=== PATIENT | female | born 1945 | race Caucasian/White ===

== ENCOUNTER 2022-12-26 08:30 | Outpatient (OUT) | payer MEDICARE, SELFPAY ==
[2022-12-26 08:56] LABS: Basophils Percent Auto 0.5 % (0.2-2.0); Eosinophils Absolute Auto 0.1 10^3/uL (0.0-0.7); Eosinophils Percent Auto 1.5 % (0.9-7.0); Hematocrit 43.1 % (36.0-48.0); Hemoglobin 14.5 g/dL (12.0-16.0); Immature Granulocytes Abs Auto 0.02 10^3/uL (0.00-0.03); Immature Granulocytes Pct Auto 0.3 % (0.0-0.5); Lymphocytes Absolute Auto 1.5 10^3/uL (1.2-3.8); Lymphocytes Percent Auto 25.1 % (20.5-60.0); Mean Corpuscular HGB Conc 33.6 g/dL (29.9-35.2); Mean Corpuscular Volume 89.2 fL (81.0-99.0); Monocytes Absolute Auto 0.6 10^3/uL (0.3-0.8); Monocytes Percent Auto 9.3 % (1.7-12.0); Neutrophils Absolute Auto 3.7 10^3/uL (1.4-6.5); Neutrophils Percent Auto 63.3 % (43.0-75.0); Platelet Count 206 10^3/uL (150-450); Red Blood Count 4.83 10^6/uL (4.20-5.40); Red Cell Distribution Width 12.8 % (11.0-15.0); White Blood Count 5.9 10^3/uL (4.0-11.0)
[2022-12-26 09:21] LABS: Alanine Aminotransferase 40 U/L (14-59); Albumin Globulin Ratio 0.9; Albumin Level 3.7 g/dL (3.4-5.0); Alkaline Phosphatase 132 U/L (46-116); Anion Gap 10.1; Aspartate Amino Transferase 41 U/L (15-37); BUN Creatinine Ratio 18.9; Bilirubin Total 0.7 mg/dL (0.2-1.0); Calcium 9.3 mg/dL (8.5-10.1); Carbon Dioxide 32.7 mmol/L (21.0-32.0); Chloride 103 mmol/L (98-107); Estimated GFR (African America >60 (>=60); Estimated GFR (Non-African Ame 57 (>=60); Globulin 3.9 g/dL; Glucose 114 mg/dL (74-106); Lactate Dehydrogenase 205 U/L (81-234); Potassium 3.8 mmol/L (3.5-5.1); Sodium 142 mmol/L (136-145); Thyroid Stimulating Hormone 2.725 uIU/mL (0.358-3.740); Total Protein 7.6 g/dL (6.4-8.2)
[2022-12-26 10:50] LABS: Free T4 1.17 ng/dL (0.76-1.46)
[2022-12-27 14:11] LABS: ACTH, Plasma 35.2 pg/mL (7.2-63.3)
== END 2022-12-26 08:31 | disposition home or self-care (01) ==
LOC: LAB 01-06 14:50
PROVIDERS: PCP Family Medicine; Visit Provider Internal Medicine
DX: C43.9 Malignant melanoma of skin, unspecified (principal)
CPT/HCPCS: 36415; 80053; 82024; 83615; 84439; 84443; 85025

== ENCOUNTER 2023-01-22 15:20 | Outpatient (OUT) | payer MEDICARE, SELFPAY ==
[2023-01-22 15:46] LABS: Basophils Percent Auto 0.6 % (0.2-2.0); Eosinophils Absolute Auto 0.1 10^3/uL (0.0-0.7); Eosinophils Percent Auto 2.1 % (0.9-7.0); Hematocrit 42.4 % (36.0-48.0); Hemoglobin 13.8 g/dL (12.0-16.0); Immature Granulocytes Abs Auto 0.04 10^3/uL (0.00-0.03); Immature Granulocytes Pct Auto 0.6 % (0.0-0.5); Lymphocytes Absolute Auto 1.8 10^3/uL (1.2-3.8); Lymphocytes Percent Auto 25.9 % (20.5-60.0); Mean Corpuscular HGB Conc 32.5 g/dL (29.9-35.2); Mean Corpuscular Hemoglobin 29.2 pg (26.7-34.0); Mean Corpuscular Volume 89.8 fL (81.0-99.0); Mean Platelet Volume 9.1 fL (9.5-13.5); Monocytes Absolute Auto 0.7 10^3/uL (0.3-0.8); Neutrophils Absolute Auto 4.1 10^3/uL (1.4-6.5); Neutrophils Percent Auto 60.8 % (43.0-75.0); Platelet Count 194 10^3/uL (150-450); Red Blood Count 4.72 10^6/uL (4.20-5.40); Red Cell Distribution Width 13.1 % (11.0-15.0); White Blood Count 6.8 10^3/uL (4.0-11.0)
[2023-01-22 16:27] LABS: Free T4 1.07 ng/dL (0.76-1.46)
[2023-01-22 16:29] LABS: Alanine Aminotransferase 32 U/L (14-59); Albumin Level 3.7 g/dL (3.4-5.0); Alkaline Phosphatase 112 U/L (46-116); Aspartate Amino Transferase 27 U/L (15-37); BUN Creatinine Ratio 21.4; Bilirubin Total 0.5 mg/dL (0.2-1.0); Calcium 8.9 mg/dL (8.5-10.1); Carbon Dioxide 29.5 mmol/L (21.0-32.0); Chloride 104 mmol/L (98-107); Estimated GFR (African America >60 (>=60); Estimated GFR (Non-African Ame 55 (>=60); Globulin 3.7 g/dL; Glucose 84 mg/dL (74-106); Lactate Dehydrogenase 211 U/L (81-234); Potassium 3.5 mmol/L (3.5-5.1); Sodium 141 mmol/L (136-145); Thyroid Stimulating Hormone 1.886 uIU/mL (0.358-3.740); Total Protein 7.4 g/dL (6.4-8.2)
[2023-01-23 13:08] LABS: ACTH, Plasma 41.1 pg/mL (7.2-63.3)
== END 2023-01-22 15:21 | disposition home or self-care (01) ==
LOC: LAB 15:21
PROVIDERS: PCP Family Medicine; Visit Provider Internal Medicine
DX: C43.9 Malignant melanoma of skin, unspecified (principal)
CPT/HCPCS: 36415; 80053; 82024; 83615; 84439; 84443; 85025

== ENCOUNTER 2023-02-19 15:11 | Outpatient (OUT) | payer MEDICARE, SELFPAY ==
[2023-02-19 15:34] LABS: Basophils Percent Auto 0.6 % (0.2-2.0); Eosinophils Absolute Auto 0.1 10^3/uL (0.0-0.7); Eosinophils Percent Auto 1.8 % (0.9-7.0); Hematocrit 39.7 % (36.0-48.0); Hemoglobin 13.5 g/dL (12.0-16.0); Immature Granulocytes Abs Auto 0.03 10^3/uL (0.00-0.03); Immature Granulocytes Pct Auto 0.4 % (0.0-0.5); Lymphocytes Absolute Auto 1.6 10^3/uL (1.2-3.8); Lymphocytes Percent Auto 24.4 % (20.5-60.0); Mean Corpuscular Hemoglobin 29.7 pg (26.7-34.0); Mean Corpuscular Volume 87.4 fL (81.0-99.0); Mean Platelet Volume 8.7 fL (9.5-13.5); Monocytes Absolute Auto 0.5 10^3/uL (0.3-0.8); Monocytes Percent Auto 7.3 % (1.7-12.0); Neutrophils Absolute Auto 4.4 10^3/uL (1.4-6.5); Neutrophils Percent Auto 65.5 % (43.0-75.0); Platelet Count 186 10^3/uL (150-450); Red Blood Count 4.54 10^6/uL (4.20-5.40); Red Cell Distribution Width 13.2 % (11.0-15.0); White Blood Count 6.7 10^3/uL (4.0-11.0)
[2023-02-19 16:11] LABS: Free T4 1.13 ng/dL (0.76-1.46)
[2023-02-19 16:14] LABS: Alanine Aminotransferase 36 U/L (14-59); Albumin Globulin Ratio 1.1; Albumin Level 3.6 g/dL (3.4-5.0); Alkaline Phosphatase 108 U/L (46-116); Anion Gap 10.3; Aspartate Amino Transferase 27 U/L (15-37); BUN Creatinine Ratio 19.2; Bilirubin Total 0.4 mg/dL (0.2-1.0); Calcium 8.9 mg/dL (8.5-10.1); Carbon Dioxide 30.9 mmol/L (21.0-32.0); Chloride 103 mmol/L (98-107); Estimated GFR (African America >60 (>=60); Estimated GFR (Non-African Ame 55 (>=60); Globulin 3.2 g/dL; Glucose 148 mg/dL (74-106); Lactate Dehydrogenase 205 U/L (81-234); Potassium 3.2 mmol/L (3.5-5.1); Sodium 141 mmol/L (136-145); Thyroid Stimulating Hormone 1.309 uIU/mL (0.358-3.740); Total Protein 6.8 g/dL (6.4-8.2)
[2023-02-20 13:09] LABS: ACTH, Plasma 57.3 pg/mL (7.2-63.3)
== END 2023-02-19 15:12 | disposition home or self-care (01) ==
PROVIDERS: PCP Family Medicine; Visit Provider Internal Medicine
DX: C43.9 Malignant melanoma of skin, unspecified (principal)
CPT/HCPCS: 36415; 80053; 82024; 83615; 84439; 84443; 85025

== ENCOUNTER 2023-03-19 09:24 | Outpatient (OUT) | payer MEDICARE, SELFPAY ==
[2023-03-19 10:27] LABS: Basophils Percent Auto 0.6 % (0.2-2.0); Eosinophils Absolute Auto 0.1 10^3/uL (0.0-0.7); Hematocrit 39.1 % (36.0-48.0); Hemoglobin 13.8 g/dL (12.0-16.0); Immature Granulocytes Abs Auto 0.02 10^3/uL (0.00-0.03); Immature Granulocytes Pct Auto 0.4 % (0.0-0.5); Lymphocytes Absolute Auto 1.4 10^3/uL (1.2-3.8); Lymphocytes Percent Auto 26.7 % (20.5-60.0); Mean Corpuscular HGB Conc 35.3 g/dL (29.9-35.2); Mean Corpuscular Hemoglobin 30.9 pg (26.7-34.0); Mean Corpuscular Volume 87.7 fL (81.0-99.0); Mean Platelet Volume 9.2 fL (9.5-13.5); Monocytes Absolute Auto 0.5 10^3/uL (0.3-0.8); Monocytes Percent Auto 10.4 % (1.7-12.0); Neutrophils Absolute Auto 3.1 10^3/uL (1.4-6.5); Neutrophils Percent Auto 59.9 % (43.0-75.0); Platelet Count 209 10^3/uL (150-450); Red Blood Count 4.46 10^6/uL (4.20-5.40); Red Cell Distribution Width 13.2 % (11.0-15.0); White Blood Count 5.1 10^3/uL (4.0-11.0)
[2023-03-19 11:58] LABS: Free T4 1.03 ng/dL (0.76-1.46)
[2023-03-19 12:01] LABS: Alanine Aminotransferase 33 U/L (14-59); Albumin Globulin Ratio 1.1; Albumin Level 3.6 g/dL (3.4-5.0); Alkaline Phosphatase 118 U/L (46-116); Anion Gap 10.8; Aspartate Amino Transferase 28 U/L (15-37); BUN Creatinine Ratio 20.4; Bilirubin Total 0.4 mg/dL (0.2-1.0); Calcium 8.8 mg/dL (8.5-10.1); Carbon Dioxide 28.4 mmol/L (21.0-32.0); Chloride 104 mmol/L (98-107); Estimated GFR (African America 60 (>=60); Estimated GFR (Non-African Ame 49 (>=60); Globulin 3.4 g/dL; Glucose 100 mg/dL (74-106); Lactate Dehydrogenase 211 U/L (81-234); Potassium 3.2 mmol/L (3.5-5.1); Sodium 140 mmol/L (136-145); Thyroid Stimulating Hormone 2.383 uIU/mL (0.358-3.740)
[2023-03-21 15:09] LABS: ACTH, Plasma 23.6 pg/mL (7.2-63.3)
== END 2023-03-19 09:25 | disposition home or self-care (01) ==
LOC: LAB 09:26
PROVIDERS: PCP Family Medicine; Visit Provider Internal Medicine
DX: C43.9 Malignant melanoma of skin, unspecified (principal)
CPT/HCPCS: 36415; 80053; 82024; 83615; 84439; 84443; 85025

== ENCOUNTER 2023-04-16 14:13 | Outpatient (OUT) | payer MEDICARE, SELFPAY ==
[2023-04-16 14:55] LABS: Basophils Absolute Auto 0.1 10^3/uL (0.0-0.1); Basophils Percent Auto 0.7 % (0.2-2.0); Eosinophils Absolute Auto 0.1 10^3/uL (0.0-0.7); Eosinophils Percent Auto 1.7 % (0.9-7.0); Hematocrit 39.9 % (36.0-48.0); Hemoglobin 13.4 g/dL (12.0-16.0); Immature Granulocytes Abs Auto 0.02 10^3/uL (0.00-0.03); Immature Granulocytes Pct Auto 0.3 % (0.0-0.5); Lymphocytes Absolute Auto 1.7 10^3/uL (1.2-3.8); Lymphocytes Percent Auto 24.2 % (20.5-60.0); Mean Corpuscular HGB Conc 33.6 g/dL (29.9-35.2); Mean Corpuscular Hemoglobin 30.2 pg (26.7-34.0); Mean Corpuscular Volume 89.9 fL (81.0-99.0); Mean Platelet Volume 9.2 fL (9.5-13.5); Monocytes Absolute Auto 0.6 10^3/uL (0.3-0.8); Monocytes Percent Auto 7.9 % (1.7-12.0); Neutrophils Absolute Auto 4.6 10^3/uL (1.4-6.5); Neutrophils Percent Auto 65.2 % (43.0-75.0); Platelet Count 204 10^3/uL (150-450); Red Blood Count 4.44 10^6/uL (4.20-5.40); Red Cell Distribution Width 12.7 % (11.0-15.0); White Blood Count 7.1 10^3/uL (4.0-11.0)
[2023-04-16 15:11] LABS: Free T4 1.15 ng/dL (0.76-1.46)
[2023-04-16 15:16] LABS: Alanine Aminotransferase 26 U/L (14-59); Albumin Globulin Ratio 1.1; Albumin Level 3.7 g/dL (3.4-5.0); Alkaline Phosphatase 114 U/L (46-116); Anion Gap 11.8; Aspartate Amino Transferase 25 U/L (15-37); BUN Creatinine Ratio 19.8; Bilirubin Total 0.6 mg/dL (0.2-1.0); Calcium 9.2 mg/dL (8.5-10.1); Carbon Dioxide 29.7 mmol/L (21.0-32.0); Chloride 101 mmol/L (98-107); Estimated GFR (African America >60 (>=60); Estimated GFR (Non-African Ame 53 (>=60); Globulin 3.4 g/dL; Glucose 112 mg/dL (74-106); Lactate Dehydrogenase 214 U/L (81-234); Potassium 3.5 mmol/L (3.5-5.1); Sodium 139 mmol/L (136-145); Thyroid Stimulating Hormone 1.813 uIU/mL (0.358-3.740); Total Protein 7.1 g/dL (6.4-8.2)
[2023-04-17 15:09] LABS: ACTH, Plasma 31.7 pg/mL (7.2-63.3)
== END 2023-04-16 14:14 | disposition home or self-care (01) ==
LOC: LAB 14:17
PROVIDERS: PCP Family Medicine; Visit Provider Internal Medicine
DX: C43.9 Malignant melanoma of skin, unspecified (principal)
CPT/HCPCS: 36415; 80053; 82024; 83615; 84439; 84443; 85025

== ENCOUNTER 2023-05-14 10:05 | Outpatient (OUT) | payer MEDICARE, SELFPAY ==
[2023-05-14 10:32] LABS: Basophils Percent Auto 0.6 % (0.2-2.0); Eosinophils Absolute Auto 0.1 10^3/uL (0.0-0.7); Eosinophils Percent Auto 2.1 % (0.9-7.0); Hematocrit 39.9 % (36.0-48.0); Hemoglobin 13.2 g/dL (12.0-16.0); Immature Granulocytes Abs Auto 0.03 10^3/uL (0.00-0.03); Immature Granulocytes Pct Auto 0.5 % (0.0-0.5); Lymphocytes Absolute Auto 1.5 10^3/uL (1.2-3.8); Lymphocytes Percent Auto 24.1 % (20.5-60.0); Mean Corpuscular HGB Conc 33.1 g/dL (29.9-35.2); Mean Corpuscular Hemoglobin 30.1 pg (26.7-34.0); Mean Corpuscular Volume 91.1 fL (81.0-99.0); Monocytes Absolute Auto 0.7 10^3/uL (0.3-0.8); Monocytes Percent Auto 10.4 % (1.7-12.0); Neutrophils Absolute Auto 3.9 10^3/uL (1.4-6.5); Neutrophils Percent Auto 62.3 % (43.0-75.0); Platelet Count 201 10^3/uL (150-450); Red Blood Count 4.38 10^6/uL (4.20-5.40); Red Cell Distribution Width 12.7 % (11.0-15.0); White Blood Count 6.3 10^3/uL (4.0-11.0)
[2023-05-14 10:54] LABS: Alanine Aminotransferase 38 U/L (14-59); Albumin Level 3.4 g/dL (3.4-5.0); Alkaline Phosphatase 128 U/L (46-116); Anion Gap 8.1; Aspartate Amino Transferase 33 U/L (15-37); BUN Creatinine Ratio 21.3; Bilirubin Total 0.5 mg/dL (0.2-1.0); Calcium 8.7 mg/dL (8.5-10.1); Carbon Dioxide 32.3 mmol/L (21.0-32.0); Chloride 102 mmol/L (98-107); Estimated GFR (African America >60 (>=60); Estimated GFR (Non-African Ame 58 (>=60); Globulin 3.5 g/dL; Glucose 84 mg/dL (74-106); Lactate Dehydrogenase 173 U/L (81-234); Potassium 3.4 mmol/L (3.5-5.1); Sodium 139 mmol/L (136-145); Thyroid Stimulating Hormone 2.474 uIU/mL (0.358-3.740); Total Protein 6.9 g/dL (6.4-8.2)
[2023-05-14 11:51] LABS: Free T4 1.13 ng/dL (0.76-1.46)
[2023-05-15 13:09] LABS: ACTH, Plasma 27.7 pg/mL (7.2-63.3)
== END 2023-05-14 10:06 | disposition home or self-care (01) ==
LOC: LAB 10:07
PROVIDERS: PCP Family Medicine; Visit Provider Internal Medicine
DX: C43.9 Malignant melanoma of skin, unspecified (principal)
CPT/HCPCS: 36415; 80053; 82024; 83615; 84439; 84443; 85025

== ENCOUNTER 2023-06-12 07:34 | Outpatient (OUT) | payer MEDICARE, SELFPAY ==
[2023-06-12 08:16] LABS: Basophils Percent Auto 0.6 % (0.2-2.0); Eosinophils Absolute Auto 0.1 10^3/uL (0.0-0.7); Hematocrit 39.1 % (36.0-48.0); Hemoglobin 13.1 g/dL (12.0-16.0); Immature Granulocytes Abs Auto 0.03 10^3/uL (0.00-0.03); Immature Granulocytes Pct Auto 0.5 % (0.0-0.5); Lymphocytes Absolute Auto 1.8 10^3/uL (1.2-3.8); Lymphocytes Percent Auto 27.2 % (20.5-60.0); Mean Corpuscular HGB Conc 33.5 g/dL (29.9-35.2); Mean Corpuscular Hemoglobin 30.6 pg (26.7-34.0); Mean Corpuscular Volume 91.4 fL (81.0-99.0); Mean Platelet Volume 9.3 fL (9.5-13.5); Monocytes Absolute Auto 0.7 10^3/uL (0.3-0.8); Monocytes Percent Auto 10.1 % (1.7-12.0); Neutrophils Absolute Auto 3.9 10^3/uL (1.4-6.5); Neutrophils Percent Auto 59.6 % (43.0-75.0); Platelet Count 198 10^3/uL (150-450); Red Blood Count 4.28 10^6/uL (4.20-5.40); Red Cell Distribution Width 12.7 % (11.0-15.0); White Blood Count 6.5 10^3/uL (4.0-11.0)
[2023-06-12 08:42] LABS: Alanine Aminotransferase 35 U/L (14-59); Albumin Level 3.5 g/dL (3.4-5.0); Alkaline Phosphatase 111 U/L (46-116); Aspartate Amino Transferase 33 U/L (15-37); Bilirubin Total 0.5 mg/dL (0.2-1.0); Calcium 8.7 mg/dL (8.5-10.1); Carbon Dioxide 29.7 mmol/L (21.0-32.0); Chloride 103 mmol/L (98-107); Estimated GFR (African America >60 (>=60); Estimated GFR (Non-African Ame >60 (>=60); Globulin 3.5 g/dL; Glucose 105 mg/dL (74-106); Lactate Dehydrogenase 200 U/L (81-234); Potassium 3.7 mmol/L (3.5-5.1); Sodium 141 mmol/L (136-145); Thyroid Stimulating Hormone 2.821 uIU/mL (0.358-3.740)
[2023-06-15 14:08] LABS: ACTH, Plasma 36.2 pg/mL (7.2-63.3)
== END 2023-06-12 07:35 | disposition home or self-care (01) ==
LOC: LAB 07:34
PROVIDERS: PCP Family Medicine; Visit Provider Internal Medicine
DX: C43.9 Malignant melanoma of skin, unspecified (principal)
CPT/HCPCS: 36415; 80053; 82024; 83615; 84439; 84443; 85025

== ENCOUNTER 2023-07-10 07:23 | Outpatient (OUT) | payer MEDICARE, SELFPAY ==
--- OUTSIDE RECORDS SUMMARY | 2023-07-10 07:28 | XMS_ITS | CCD ---
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 Name Role Phone Quentin Fitzpatrick Unavailable Unavailable Yoni Muller Unavailable Unavailable Unavailable Quentin Fitzpatrick Unavailable Unavailable DO Sly Benson II Attending Provider Yohana, DO [place] Primary Care Provider MD Alex Trammell Referring Provider DO Sly Benson II Attending Provider [phone] DO Yoni Muller Primary Care Provider MD Alex Trammell Referring Provider MD Alex Trammell Attending Provider DO Yoni Muller Primary Care Provider DO Sly Benson II Attending Provider [phone] MD Alex Trammell Referring Provider Yohana, DO [place] Primary Care Provider MD Alex Trammell Attending Provider DO Sly Benson II Attending Provider MD Alex Trammell Referring Provider DO Sly Benson II Attending Provider MD Alex Trammell Referring Provider [phone] Furlong, DO Yoni Primary Care Provider [phone] MD Alex Trammell Attending Provider Adamowicz II, DO Sly J Attending Provider MD Alex Trammell Referring Provider MD Alex Trammell Referring Provider MD Alex Trammell Referring Provider Adamconnoricz II, DO Sly J Attending Provider Furlong, DO Yoni Primary Care Provider MD Alex Trammell Referring Provider [phone] Adamconnoricz II, DO Sly J Attending Provider Furlong, DO Yoni Primary Care Provider MD Alex Trammell Referring Provider Adamconnoricz II, DO Sly J Attending Provider Furlong, DO Yoni Primary Care Provider MD Alex Trammell Referring Provider [phone] SLY BENSON J Admitting Unavailable FURLONG, DR YONI Larson Primary Care Unavailable ADAMOWICZ, SLY J Consulting Unavailable SHUNOWICZ, SLY J Attending Unavailable FURLONG, DR YONI Larson Primary Care Unavailable ADAMOWICZ, SLY J Admitting Unavailable ADAMOWICZ, SLY J Consulting Unavailable SHUNOWICZ, SLY J Attending Unavailable ADAMOWICZ, SLY J Attending Unavailable FURLONG, DR YONI Larson Primary Care Unavailable SHUNOWICZ, SLY J Admitting Unavailable ADAMOWICZ, SLY J Consulting Unavailable FURLONG, DR YONI Larson Consulting Unavailable FURLONG, DR YONI Larson Attending Unavailable FURLONG, DR YONI Larson Admitting Unavailable FURLONG, DR YONI Larson Primary Care Unavailable SHUNOWICZ, SLY J Attending Unavailable ADAMOWICZ, SLY J Admitting Unavailable ADAMOWICZ, SLY J Consulting Unavailable FURLONG, DR VANCENIS G Primary Care Unavailable ADAMOWICZ, SLY J Attending Unavailable ADAMOWICZ, SLY J Admitting Unavailable ADAMOWICZ, SLY J Consulting Unavailable SARANYALODR YONI PAUL Primary Care Unavailable ADAMOWICZ, SLY J Attending Unavailable ADAMOWICZ, SLY J Admitting Unavailable ADAMOWICZ, SLY J Consulting Unavailable ADAMOWICZ, SLY J Attending Unavailable ADAMOWICZ, SLY J Admitting Unavailable ADAMOWICZ, SLY J Consulting Unavailable Adamowicz II, DO Sly J Attending Provider Furlong, DO Yoni Primary Care Provider MD Alex Trammell Referring Provider Adamowicz II, DO Sly J Attending Provider [facility], DO Yoni Primary Care Provider [phone] MD Alex Trammell Referring Provider Kimber Lacy Unavailable Adamowicz II, DO Sly J Attending Provider Furlong, DO [place] Primary Care Provider [phone] MD Alex Trammell Referring Provider [phone] Adamowicz II, DO Sly J Attending Provider Furlo, DO [place] Primary Care Provider [phone] MD Alex Trammell Referring Provider Yoni Muller Primary Care Unavailable Adamowicz II, Sly J Admitting Unavaila ble Adamowicz II, Sly J Attending Unavaila ble Alex Trammell Referring Unavailab le Allergies Allergy Classification Reported Allergen(s) Allergy Type Date of Onset Reaction(s) Facility (3 sources) No Alert Propensity to adverse reactions to drug 1 [facility] (2 sources) Penicillin Drug Allergy Unknown [facility] Repository (1 source) Penicillins Drug allergy (disorder) 3 [facility] Repository Medications Current Medications Medication Drug Class(es) Dates Sig (Normalized) Sig (Original) hydroCHLOROthiazide 25 mg oral tablet (18 sources) Thiazide Diuretic Start: 2 take 25 mg by mouth once daily Hydrochlorothiazide Active 25 MG PO Daily October 04, 2021 12:00am rosuvastatin calcium 10 mg oral tablet (18 sources) HMG-CoA Reductase Inhibitor Start: 2 take 10 mg by mouth once daily Rosuvastatin Active 10 MG PO Daily October 04, 2021 12:00am (3 sources) Completed/Discontinued Medications Medication Drug Class(es) Dates Sig (Normalized) Sig (Original) acetaminophen 325 mg / HYDROcodone bitartrate 5 mg oral tablet (1 source) Opioid Agonist Start: 11-20-2020 take 1 tablet by mouth every six hours as needed for pain HYDROcodone-Acetam inophen 5-325 MG Oral Tablet TAKE 1 TABLET EVERY 6 HOURS NEEDED FOR PAIN. Quantity: 28 Refills: 0 Ordered: 20-Nov-2020 Alex Trammell MPH Start : 20-Nov-2020 Active acetaminophen 325 mg / oxyCODONE hydrochloride 5 mg oral tablet (10 sources) Opioid Agonist Start: 12-04-2020 take 1 tablet by mouth every six hours as needed oxyCODONE-Acetamin ophen 5-325 MG Oral Tablet TAKE 1 TABLET EVERY 6 HOURS NEEDED. Quantity: 28 Refills: 0 Ordered: 04-Dec-2020 Alex Trammell MPH Start : 04-Dec-2020 Active cephalexin 750 mg oral capsule (6 sources) Cephalosporin Antibacterial Start: 01-12-2021 take 1 capsule by mouth three times daily Cephalexin 750 MG Oral Capsule TAKE 1 CAPSULE 3 times daily Quantity: 21 Refills: 0 Ordered: 12-Jan-2021 Alex Trammell MPH Start : 12-Jan-2021 Active ciprofloxacin 500 mg oral tablet (20 sources) Quinolone Antimicrobial Start: 11-30-2020 take 1 tablet by mouth twice daily Ciprofloxacin HCl - 500 MG Oral Tablet Take 1 tablet twice daily Quantity: 6 Refills: 0 Ordered: 05-Dec-2020 Alex Trammell MPH Start : 05-Dec-2020 Active Start: 11-30-2020 take 1 tablet by enrike th once daily Ciprofloxacin HCl - 500 MG Oral Tablet TAKE 1 TABLET EVERY 12 HOURS DAILY. Quantity: 14 Refills: 0 Ordered: 30-Nov-2020 Alex Trammell MPH Start : 30-Nov-2020 Active dexamethasone 2 mg oral tablet (6 sources) Corticosteroid Start: 08-29-2022 End: 09-08-2022 take 2 tablets by mouth after breakfast, then take 1 tablet by mouth after lunch Dexamethasone Discontinued 2 MG PO As Directed August 29, 2022 1:00am September 08, 2022 10:52am Take 4mg (2 tablets) in the morning after breakfast, and 2mg (1 tablet) in the afternoon after lunch for 5 days. diazePAM 5 mg oral tablet (7 sources) Benzodiazepine Start: 08-12-2022 End: 10-06-2022 Diazepam (Valium) 5 mg Tablet Discontinued 5 MG PO Once 10 August 12, 2022 1:00am October 06, 2022 10:20am Take 1 tab po 30 min prior to procedure. take 1 tablet by enrike th every twenty-four hours diazePAM 5 MG 1 tablet as needed Orally Once a day Not-Taking doxycycline hyclate 100 mg oral capsule (6 sources) Tetracycline-class Drug Start: 01-12-2021 take 1 capsule by mouth every twelve hours Doxycycline Hyclate 100 MG Oral Capsule TAKE 1 CAPSULE EVERY 12 HOURS UNTIL GONE. Quantity: 14 Refills: 0 Ordered: 12-Jan-2021 Alex Trammell MPH Start : 12-Jan-2021 Active gabapentin 100 mg oral capsule (1 source) Anti-epileptic Agent Start: 09-09-2022 take 1 capsule by mouth every eight hours Gabapentin 100 MG 1 capsule Orally TID for 15 days G89.3 Aug, Not-Taking lidocaine hydrochloride 40 mg/ml topical cream (8 sources) Antiarrhythmic, Amide Local Anesthetic Start: 12-18-2020 Aspercreme w/Lidocaine 4 % External Cream APPLY 1 (ONE) inch EVERY OTHER DAY NEEDED with wound vac changes Quantity: 76 Refills: 0 Ordered: 18-Dec-2020 DO Start : 18-Dec-2020 Active Start: 12-17-2020 Lidocaine 3 % External Cream APPLY 1 INCH Every other day PRN during dressing changes Quantity: 1 Refills: 1 Ordered: 17-Dec-2020 Alex Trammell MPH Start : 17-Dec-2020 Active Lidocaine 4 % External Ointment (4 sources) Start: 12-18-2020 Lidocaine 4 % External Ointment APPLY 1 INCH Every other day PRN with wound vac changes Quantity: 1 Refills: 0 Ordered: 18-Dec-2020 Alex Trammell MPH Start : 18-Dec-2020 Active Lidocaine 4 % External Ointment (4 sources) Start: 12-18-2020 Lidocaine 4 % External Ointment APPLY 1 INCH Every other day PRN with wound vac changes Quantity: 1 Refills: 0 Ordered: 18-Dec-2020 Alex Trammell MPH Start : 18-Dec-2020 Active mometasone furoate 1 mg/ml topical cream (4 sources) Corticosteroid Start: 09-15-2022 End: 11-03-2022 Mometasone Discontinued 1 APPLIC TOPICAL Daily September 15, 2022 1:00am November 03, 2022 10:11am Apply twice daily. potassium chloride 20 meq extended release oral tablet (8 sources) Start: 08-11-2022 End: 10-06-2022 take 20 mEq by mouth once daily Potassium Chloride Discontinued 20 MEQ PO Daily August 11, 2022 1:00am October 06, 2022 10:21am Potassium Chlori de Active QUEtiapine 25 mg oral tablet (1 source) Atypical Antipsychotic Start: 11-11-2022 take 1 tablet by mouth every twenty-four hours QUEtiapine Fumarate 25 MG 1 tablet at bedtime Orally Once a day for 30 days DC trazodone November, Not-Taking traMADol hydrochloride 50 mg oral tablet (1 source) Opioid Agonist Start: 11-16-2020 traMADol HCl - 50 MG Oral Tablet Quantity: 15 Refills: 0 Ordered: 16-Nov-2020 DO Start : 16-Nov-2020 Active traZODone hydrochloride 50 mg oral tablet (4 sources) Serotonin Reuptake Inhibitor Start: 09-08-2022 End: 10-06-2022 take 50 mg by mouth once daily at bedtime Trazodone Discontinued 50 MG PO Daily at bedtime September 08, 2022 1:00am October 06, 2022 10:21am Problems Active Problems Problem Classification Problem Date Documented Date Episodic/Chronic Administrative/soci al admission (1 source) Other specified counseling Episodic Anxiety disorders (1 source) Anxiety disorder; Translations: [Other specified anxiety disorders] Chronic Complication of device; implant or graft (9 sources) Skin graft disorder; Translations: [Other complications due to other internal prosthetic device, implant, and graft] Episodic Complications of surgical procedures or medical care (5 sources) Infected seroma after surgical procedure; Translations: [Infected postoperative seroma] Episodic Disorders of lipid metabolism (4 sources) Pure hypercholesterolemia, unspecified; Translations: [PURE HYPERCHOLESTEROLEMIA UNSPEC] Onset: 2 Chronic Lymphadenitis (20 sources) Inguinal lymphadenopathy; Translations: [Localized enlarged lymph nodes] 04-28-2022 Episodic Maintenance chemotherapy; radiotherapy (17 sources) Patient encounter status; Translations: [Encounter for antineoplastic immunotherapy] Onset: 3 06-02-2022 Chronic Melanomas of skin (20 sources) Malignant melanoma of lower leg; Translations: [Malignant melanoma of skin of lower limb, including hip] Onset: 3 10-07-2021 Chronic Other injuries and conditions due to external causes (7 sources) Surgical wound finding; Translations: [Open wound(s) (multiple) of unspecified site(s), without mention of complication] Episodic Other nervous system disorders (1 source) Pain due to neoplastic disease; 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)] Chronic Other screening for suspected conditions (not mental disorders or infectious disease) (1 source) No current problems or disability Onset: 1 Residual codes; unclassified (1 source) Insomnia; Translations: [Insomnia, unspecified] Episodic Residual codes; unclassified (1 source) Insomnia, unspecified Episodic Skin and subcutaneous tissue infections (11 sources) Cellulitis; Translations: [Cellulitis and abscess of unspecified sites] Episodic Unclassified (1 source) Malignant melanoma of left lower limb, including hip; Translations: [Malignant melanoma of left lower limb, including hip] Onset: 3 Past or Other Problems Problem Classification Problem Date Documented Da te Episodic/Chronic Residual codes; unclassified (2 sources) No current problems or disability; Translations: [Other specified conditions influencing health status] Onset: 11-13-2020 Episodic Results Test Name Value Interpretation Reference Range Facility Adrenocorticotropic Hormone PLon 03-05-[address] 25.6 pg/mL Normal 7.2-63.3 [facility] Comment on above: Result Comment: ACTH reference interval for samples collected between 7 and 10 AM. Performed at: - [facility] [address] [id number] Wax Ball Molder: Coleman Lacy PhD, Phone: [phone] PERFORMED BY: [facility] [address] [place] [address] PATHOLOGIST COMMUNITY FACILITATOR WAYLON SAUNDERS M.D. Performed By: #### C BC ####[facility] [id number]#### ACTH ####[facility] , Alanine aminotransferase [En zymatic activity/volume] in Serum or PlasmaOrdered By: Sly Benson on 03-05-2023 ALT [Catalytic activity/Vol] 22 U/L 7-52 [facility] Albumin [Mass/volume] in Ser um or Plasma by Bromocresol green (BCG) dye binding methoOrdered By: Sly Benson on 03-05-2023 Albumin BCG dye [Mass/Vol] 4.1 g/dL 3.5-5.7 [facility] Alkaline phosphatase [Enzyma tic activity/volume] in Serum or PlasmaOrdered By: Sly Benson on 03-05-2023 ALP [Catalytic activity/Vol] 106 U/L 34-104 [facility] Aspartate aminotransferase [ Enzymatic activity/volume] in Serum or PlasmaOrdered By: Sly Benson on 03-05-2023 AST [Catalytic activity/Vol] 23 U/L 13-39 [facility] Basophils Auto (Bld) [#/Vol] Ordered By: Sly Benson on 03-05-2023 Basophils (Bld) [#/Vol] 0.0 10*3/uL 0.0-0.2 [facility] Basophils/100 WBC Auto (Bld) Ordered By: Sly Benson on 03-05-2023 Basophils/100 WBC (Bld) 0.8 % . [facility] Bilirubin.total [Mass/volume ] in Serum or PlasmaOrdered By: Sly Benson on 03-05-2023 Bilirubin [Mass/Vol] 0.6 mg/dL 0.3-1.0 [facility] CT abdomen pelvis w conon CT abdomen pelvis w con [facility] [address] [place] [address] [place] [address] CT Scan Report Signed Patient: Theresa Luu MR#: [id number] 322 : 1945 Acct:[id number] Age/Sex: 77 / F ADM Date: 03/05/23 Loc: Room: Type: [facility] RCR Attending Dr: Sly Benson II DO Copies to: Sly Benson II, DO Ordering Provider: Sly Benson II, DO Date of Service: 03/05/23 CT/CT abdomen pelvis w con: surveilance ([id number]) CT/CT chest w con: surveilance CT CHEST, ABDOMEN AND PELVIS WITH INTRAVENOUS CONTRAST: CLINICAL HISTORY: Restage melanoma lower leg. COMPARISON: CT chest, abdomen and pelvis 10/31/2022 TECHNIQUE: TECHNIQUE: Spiral images were obtained through the chest, abdomen and pelvis following the administration of IV contrast. This CT exam was performed using one or more following dose reduction techniques: Automated exposure control, adjustment of the mA and/or kV according to patient size, or use of iterative reconstruction technique. FINDINGS: CT chest: Mediastinum:Thoracic aorta appears normal in caliber. Pulmonary trunk appears nondilated. No pericardial effusion. No lymphadenopathy. The esophagus is grossly unremarkable. Lungs:No consolidation pneumothorax or pleural effusion. Bibasilar axis/scarring. Trachea and distal airways appear patent. Multiple left lung nodules are once again noted, largest measuring 5 mm within the left upper lobe series 5 image 22. No new or enlarging suspicious pulmonary nodules. Soft tissues/Bones: Soft tissues demonstrate no acute findings. Left breast reconstruction. Osseous structures demonstrate degenerative change. CT abdomen and pelvis: Organs:Liver gallbladder portal vein pancreas spleen and adrenal glands all appear unremarkable. No enhancing renal mass or hydronephrosis. Number appears normal in caliber.[ GI: Small hiatal hernia. Distal stomach is grossly unremarkable. Small bowel appears nondilated. No acute colonic abnormality. Left colon diverticulosis.[ Pelvis:[Urinary bladder is grossly unremarkable. IUD is in place. No adnexal mass. 2.8 cm right ovarian cyst. Post surgical changes left groin region with a presumed necrotic lymph node grossly unchanged from the prior study. The left pelvic sidewall/external iliac lymphadenopathy appears to have resolved.] Peritoneum/Retroperitoneum :No new lymphadenopathy. No free air or free fluid.[ Abd wall/Bones:Abdominal wall demonstrates no acute findings. Osseous structures demonstrate degenerative change. No aggressive bony lesions.[ CT/CT chest w con IMPRESSION: No CT evidence of progression disease within the chest. Interval resolution of the left pelvic side wall/external iliac lymphadenopathy when compared to the prior study suggestive of response to treatment. The Necrotic lymph node involving the left inguinal region is grossly unchanged. Impression dictated by: Sylvain Monroe Jr., DSona03/05/2023 3:12 PM Dictation Location: [place] [address] Transcribed By: [facility] 03/05/23 1512 Dictated By: Sylvain Monroe Jr, DO 03/05/23 1504 Signed By: 03/05/23 1512 Normal [facility] Calcium [Mass/volume] in Ser um or PlasmaOrdered By: Sly Benson on 03-05-2023 Calcium [Mass/Vol] 9.4 mg/dL 8.6-10.3 [facility] Carbon dioxide, total [Moles /volume] in Serum or PlasmaOrdered By: Sly Benson on 03-05-2023 CO2 [Moles/Vol] 28.0 mmol/L 21.0-31.0 [facility] Chloride [Moles/volume] in S mellissa or PlasmaOrdered By: Sly Benson on 03-05-2023 Chloride [Moles/Vol] 104 mmol/L 98-107 [facility] Complete Blood Count Auto Di ffon 03-05-2023 Basophils (Bld) [#/Vol] 0.0 10*3/uL Normal 0.0-0.2 [facility] Comment on above: Result Comment: PERF ORMED BY: [facility] [address] [place] [address] PATHOLOGIST COMMUNITY FACILITATOR WAYLON SAUNDERS M.D. Performed By: #### C BC ####[facility] [id number] [place] [id number] [facility]#### ACTH ####[facility] , Basophils/100 WBC (Bld) 0.8 % Normal . [facility] Comment on above: Performed By: #### C BC ####[place] [address] [place]#### ACTH ####[facility] , Eosinophils (Bld) [#/Vol] 0.1 10*3/uL Normal 0.0-0.45 [facility] Comment on above: Performed By: #### C BC ####[place] [address] [place]#### ACTH ####[facility] , Eosinophils/100 WBC (Bld) 1.7 % Normal . [facility] Comment on above: Performed By: #### C BC ####[address]#### ACTH ####[facility] , Erythrocyte distribution width (RBC) [Ratio] 14.3 % Normal 11.9-15.3 [facility] Comment on above: Performed By: #### C BC ####[place] [address] [place]#### ACTH ####[facility] , Hematocrit (Bld) [Volume fraction] 39.8 % Normal 34.0-46.4 [facility] Comment on above: Performed By: #### C BC ####[place] [address] [place]#### ACTH ####[facility] , Hemoglobin (Bld) [Mass/Vol] 13.6 g/dL Normal 11.8-15.4 [facility] Comment on above: Performed By: #### C BC ####[place] [address] [place]#### ACTH ####[facility] , Lymphocytes (Bld) [#/Vol] 1.4 10*3/uL Normal 1.00-4.8 [facility] Comment on above: Performed By: #### C BC ####[place] [address] [place]#### ACTH ####[facility] , Lymphocytes/100 WBC (Bld) 23.1 % Normal . [facility] Comment on above: Performed By: #### C BC ####[place] [address] [place]#### ACTH ####[facility] , MCH (RBC) [Entitic mass] 30.2 pg Normal 24.7-34.3 [facility] Comment on above: Performed By: #### C BC ####[address]#### ACTH ####[facility] , MCV (RBC) [Entitic vol] 88.1 fL Normal 80-100 [facility] Comment on above: Performed By: #### C BC ####[address]#### ACTH ####[facility] , Mean Corpuscular HGB Conc 34.3 g/dL Normal 32.0-35.0 [facility] Comment on above: Performed By: #### C BC ####[place] [address] [place]#### ACTH ####[facility] , Monocytes (Bld) [#/Vol] 0.5 10*3/uL Normal 0.0-0.8 [facility] Comment on above: Performed By: #### C BC ####[place] [address] [place]#### ACTH ####[facility] , Monocytes/100 WBC (Bld) 8.4 % Normal . [facility] Comment on above: Performed By: #### C BC ####[place] [address] [place]#### ACTH ####[facility] , Neutrophils (Bld) [#/Vol] 4.1 10*3/uL Normal 1.8-7.7 [facility] Comment on above: Performed By: #### C BC ####[place] [address] [place]#### ACTH ####[facility] , Neutrophils/100 WBC (Bld) 66.0 % Normal . [facility] Comment on above: Performed By: #### C BC ####[place] [address] [place]#### ACTH ####[facility] , NRBC% 0.0 /100{WBC} Normal 0-0.5 [facility] Comment on above: Performed By: #### C BC ####[place] [address] [place]#### ACTH ####[facility] , Platelet mean volume (Bld) [Entitic vol] 7.2 fL Normal 6.3-10.7 [facility] Comment on above: Performed By: #### C BC ####[place] [address] [place]#### ACTH ####[facility] , Platelets (Bld) [#/Vol] 190 10*3/uL Normal 150-450 [facility] Comment on above: Performed By: #### C BC ####[place] [address] [place]#### ACTH ####[facility] , RBC (Bld) [#/Vol] 4.51 10*6/uL Normal 3.60-5.00 [facility] Comment on above: Performed By: #### C BC ####[place] [address] [place]#### ACTH ####[facility] , WBC (Bld) [#/Vol] 6.3 10*3/uL Normal 3.8-11.6 [facility] Comment on above: Performed By: #### C BC ####[facility] [id number]#### ACTH ####[facility] , Comprehensive Metabolic Pane walter 03-05-2023 Albumin [Mass/Vol] 4.1 g/dL Normal 3.5-5.7 [facility] Comment on above: Order Comment: STAT BUN/CREAT FOR CT PER CHAGO IN CC DRAW 02/23/23 Performed By: #### T 4F, LDH, TSH3, CMP #### [facility] [address] [place] [address] Albumin/Globulin [Mass ratio] 1.5 {ratio} Normal [facility] Comment on above: Order Comment: STAT BUN/CREAT FOR CT PER [place]O IN CC DRAW 02/23/23 Performed By: #### T 4F, LDH, TSH3, CMP #### [facility] [address] ALP [Catalytic activity/Vol] 106 U/L High 34-104 [facility] Comment on above: Order Comment: STAT BUN/CREAT FOR CT PER [place] IN CC DRAW 02/23/23 Performed By: #### T 4F, LDH, TSH3, CMP #### [facility] [address] ALT [Catalytic activity/Vol] 22 U/L Normal 7-52 [facility] Comment on above: Order Comment: STAT BUN/CREAT FOR CT PER [place] IN CC DRAW 02/23/23 Performed By: #### T 4F, LDH, TSH3, CMP #### [facility] [address] [place] [address] Anion gap [Moles/Vol] 12.8 mmol/L Normal 6.0-15.0 [facility] Comment on above: Order Comment: STAT BUN/CREAT FOR CT PER [place] IN CC DRAW 02/23/23 Performed By: #### T 4F, LDH, TSH3, CMP #### [facility] [address] AST [Catalytic activity/Vol] 23 U/L Normal 13-39 [facility] Comment on above: Order Comment: STAT BUN/CREAT FOR CT PER [place] IN CC DRAW 02/23/23 Performed By: #### T 4F, LDH, TSH3, CMP #### [facility] [address] Bilirubin [Mass/Vol] 0.6 mg/dL Normal 0.3-1.0 [facility] Comment on above: Order Comment: STAT BUN/CREAT FOR CT PER [place] IN CC DRAW 02/23/23 Performed By: #### T 4F, LDH, TSH3, CMP #### [facility] [address] [place] [address] Calcium [Mass/Vol] 9.4 mg/dL Normal 8.6-10.3 [facility] Comment on above: Order Comment: STAT BUN/CREAT FOR CT PER [place] IN CC DRAW 02/23/23 Performed By: #### T 4F, LDH, TSH3, CMP #### [facility] [address] [place] [address] Chloride [Moles/Vol] 104 mmol/L Normal 98-107 [facility] Comment on above: Order Comment: STAT BUN/CREAT FOR CT PER [place] IN CC DRAW 02/23/23 Performed By: #### T 4F, LDH, TSH3, CMP #### [facility] [address] [place] [address] CO2 [Moles/Vol] 28.0 mmol/L Normal 21.0-31.0 [facility] Comment on above: Order Comment: STAT BUN/CREAT FOR CT PER [place] IN CC DRAW 02/23/23 Performed By: #### T 4F, LDH, TSH3, CMP #### [facility] [address] [place] [address] Creatinine [Mass/Vol] 0.91 mg/dL Normal 0.60-1.20 [facility] Comment on above: Order Comment: STAT BUN/CREAT FOR CT PER CHAGO IN CC DRAW 02/23/23 Performed By: #### T 4F, LDH, TSH3, CMP #### [facility] [address] Creatinine Clr Calc Pharmacy 54.20 [facility] Comment on above: Order Comment: STAT BUN/CREAT FOR CT PER CHAGO IN CC DRAW 02/23/23 Performed By: #### T 4F, LDH, TSH3, CMP #### [address] GFR/1.73 sq M.predicted MDRD (S/P/Bld) [Vol rate/Area] mL/min/{1.73_m2} [facility] Comment on above: Order Comment: STAT BUN/CREAT FOR CT PER CHAGO IN CC DRAW 02/23/23 Performed By: #### T 4F, LDH, TSH3, CMP #### [address] Globulin (S) [Mass/Vol] 2.8 g/dL [facility] Comment on above: Order Comment: STAT BUN/CREAT FOR CT PER CHAGO IN CC DRAW 02/23/23 Performed By: #### T 4F, LDH, TSH3, CMP #### [address] Glucose [Mass/Vol] 102 mg/dL High 70-100 [facility] Comment on above: Order Comment: STAT BUN/CREAT FOR CT PER CHAGO IN CC DRAW 02/23/23 Result Comment: [place] Glucose Reference Range is dependent on time and content of last meal. Glucose of more than 200 mg/dL in a nonstressed, ambulatory subject supports the diagnosis of Diabetes Mellitus. ADA recommended reference range Performed By: #### T 4F, LDH, TSH3, CMP #### [address] Potassium [Moles/Vol] 3.8 mmol/L Normal 3.5-5.1 [facility] Comment on above: Order Comment: STAT BUN/CREAT FOR CT PER [place] IN CC DRAW 02/23/23 Performed By: #### T 4F, LDH, TSH3, CMP #### [facility] [address] Protein [Mass/Vol] 6.9 g/dL Normal 6.4-8.9 [facility] Comment on above: Order Comment: STAT BUN/CREAT FOR CT PER CHAGO IN CC DRAW 02/23/23 Performed By: #### T 4F, LDH, TSH3, CMP #### [facility] [address] Sodium [Moles/Vol] 141 mmol/L Normal 136-145 [facility] Comment on above: Order Comment: STAT BUN/CREAT FOR CT PER [place]AG[place] IN CC DRAW 02/23/23 Performed By: #### T 4F, LDH, TSH3, CMP #### [facility] [address] [place] [address] Urea nitrogen [Mass/Vol] 17 mg/dL Normal 7-25 [facility] Comment on above: Order Comment: STAT BUN/CREAT FOR CT PER CHAGO IN CC DRAW 02/23/23 Performed By: #### T 4F, LDH, TSH3, CMP #### [facility] [address] [place] [address] Creatinine [Mass/volume] in Serum or PlasmaOrdered By: Sly Benson on 03-05-2023 Creatinine [Mass/Vol] 0.91 mg/dL 0.60-1.20 [facility] Eosinophils Auto (Bld) [#/Vo l]Ordered By: Sly Benson on 03-05-2023 Eosinophils (Bld) [#/Vol] 0.1 10*3/uL 0.0-0.45 [facility] Eosinophils/100 WBC Auto (Bl d)Ordered By: Sly Benson on 03-05-2023 Eosinophils/100 WBC (Bld) 1.7 % . [facility] Erythrocyte distribution wid th Auto (RBC) [Ratio]Ordered By: Sly Benson on 03-05-2023 Erythrocyte distribution width (RBC) [Ratio] 14.3 % 11.9-15.3 [facility] Free T4 (Free Thyroxine)on 0 03-05-2023 Free T4 [Mass/Vol] 0.94 ng/dL Normal 0.61-1.12 [facility] Comment on above: Order Comment: STAT BUN/CREAT FOR CT PER CHAGO IN CC DRAW 02/23/23 Performed By: #### T 4F, LDH, TSH3, CMP ####[facility] [id number] [place] [address] [facility] Globulin Calc (S) [Mass/Vol] Ordered By: Sly Benson on 03-05-2023 Globulin (S) [Mass/Vol] 2.8 g/dL [facility] Glucose [Mass/volume] in Ser um or PlasmaOrdered By: Sly Benson on 03-05-2023 Glucose [Mass/Vol] 102 mg/dL 70-100 [facility] Comment on above: ADA recommended refe rence rangeRandom Glucose Reference Range is dependent on time and content of last meal. Glucose of more than 200 mg/dL in a nonstressed, ambulatory subject supports the diagnosis of Diabetes Mellitus. Hematocrit Auto (Bld) [Volum e fraction]Ordered By: Sly Benson on 03-05-2023 Hematocrit (Bld) [Volume fraction] 39.8 % 34.0-46.4 [facility] Hemoglobin [Mass/volume] in BloodOrdered By: Sly Benson on 03-05-2023 Hemoglobin (Bld) [Mass/Vol] 13.6 g/dL 11.8-15.4 [facility] LDH Lactate Dehydrogenaseon 03-05-2023 LDH Lactate Dehydrogenase 197 U/L Normal 140-271 [facility] Comment on above: Order Comment: STAT BUN/CREAT FOR CT PER CHAGO IN CC DRAW 02/23/23 Performed By: #### T 4F, LDH, TSH3, CMP ####[facility] [id number] [place] [address] [facility] Lactate dehydrogenase [Enzym atic activity/volume] in Serum or Plasma by Lactate to pyOrdered By: Sly Benson on 03-05-2023 LDH Lactate to pyruvate reaction [Catalytic activity/Vol] 197 U/L 140-271 [facility] Leukocytes [#/volume] correc margot for nucleated erythrocytes in Blood by Automated counOrdered By: Sly Benson on 03-05-2023 WBC corrected for nucl RBC Auto (Bld) [#/Vol] 6.3 10*3/uL 3.8-11.6 [facility] Lymphocytes Auto (Bld) [#/Vo l]Ordered By: Sly Benson on 03-05-2023 Lymphocytes (Bld) [#/Vol] 1.4 10*3/uL 1.00-4.8 [facility] Lymphocytes/100 WBC Auto (Bl d)Ordered By: Sly Benson on 03-05-2023 Lymphocytes/100 WBC (Bld) 23.1 % . [facility] MCH Auto (RBC) [Entitic mass ]Ordered By: Sly Benson on 03-05-2023 MCH (RBC) [Entitic mass] 30.2 pg 24.7-34.3 [facility] MCHC Auto (RBC) [Mass/Vol]Or dered By: Sly Benson on 03-05-2023 MCHC (RBC) [Mass/Vol] 34.3 g/dL 32.0-35.0 [facility] MCV Auto (RBC) [Entitic vol] Ordered By: Sly Benson on 03-05-2023 MCV (RBC) [Entitic vol] 88.1 fL 80-100 [facility] Monocytes Auto (Bld) [#/Vol] Ordered By: Sly Benson on 03-05-2023 Monocytes (Bld) [#/Vol] 0.5 10*3/uL 0.0-0.8 [facility] Monocytes/100 WBC Auto (Bld) Ordered By: Sly Benson on 03-05-2023 Monocytes/100 WBC (Bld) 8.4 % . [facility] Neutrophils Auto (Bld) [#/Vo l]Ordered By: Sly Benson on 03-05-2023 Neutrophils (Bld) [#/Vol] 4.1 10*3/uL 1.8-7.7 [facility] Neutrophils/100 WBC Auto (Bl d)Ordered By: Sly Benson on 03-05-2023 Neutrophils/100 WBC (Bld) 66.0 % . [facility] No Panel InformationOrdered By: Sly Benson on 03-05-2023 Adrenocorticotropic Hormone 25.6 pg/mL 7.2-63.3 [facility] Comment on above: ACTH reference inter jamel for samples collected between 7 and10 AM.Performed at: [facility] [id number] Director: Coleman Lacy PhD, Phone: [phone] Estimated GFR (CKD-EPI) > 60.0 mL/Min [facility] Creatinine Clearance (Chem 54.20 [facility] Nucleated erythrocytes [Pres ence] in Blood by Automated countOrdered By: Sly Benson on 03-05-2023 Nucleated RBC Auto Ql (Bld) 0.0 /100{WBC} 0-0.5 [facility] Platelet mean volume Auto (B ld) [Entitic vol]Ordered By: Sly Benson on 03-05-2023 Platelet mean volume (Bld) [Entitic vol] 7.2 fL 6.3-10.7 [facility] Platelets Auto (Bld) [#/Vol] Ordered By: Sly Benson on 03-05-2023 Platelets (Bld) [#/Vol] 190 10*3/uL 150-450 [facility] Potassium [Moles/volume] in Serum or PlasmaOrdered By: Sly Benson on 03-05-2023 Potassium [Moles/Vol] 3.8 mmol/L 3.5-5.1 [facility] Protein [Mass/volume] in Ser um or PlasmaOrdered By: Sly Benson on 03-05-2023 Protein [Mass/Vol] 6.9 g/dL 6.4-8.9 [facility] RBC Auto (Bld) [#/Vol]Ordere d By: Sly Benson on 03-05-2023 RBC (Bld) [#/Vol] 4.51 10*6/uL 3.60-5.00 [facility] Serum or plasma albumin/glob ulin mass ratioOrdered By: Sly Benson on 03-05-2023 Albumin/Globulin [Mass ratio] 1.5 {ratio} [facility] Serum or plasma anion gap de terminationOrdered By: Sly Benson on 03-05-2023 Anion gap [Moles/Vol] 12.8 mmol/L 6.0-15.0 [facility] Sodium [Moles/volume] in Ser um or PlasmaOrdered By: Sly Benson on 03-05-2023 Sodium [Moles/Vol] 141 mmol/L 136-145 [facility] Thyroid Stimulating Hormoneo n 03-05-2023 TSH Qn 2.49 m[IU]/L Normal 0.45-5.33 [facility] Comment on above: Order Comment: STAT BUN/CREAT FOR CT PER CHAGO IN CC DRAW 02/23/23 Result Comment: PERF ORMED BY: [facility] [address] [place] [address] PATHOLOGIST COMMUNITY FACILITATOR WAYLON SAUNDERS M.D. Performed By: #### T 4F, LDH, TSH3, CMP ####[facility] [id number] [place] [address] [facility] Thyrotropin [Units/volume] i n Serum or PlasmaOrdered By: Sly Benson on 03-05-2023 TSH Qn 2.49 m[IU]/L 0.45-5.33 [facility] Thyroxine (T4) free [Mass/vo lume] in Serum or PlasmaOrdered By: Sly Benson on 03-05-2023 Free T4 [Mass/Vol] 0.94 ng/dL 0.61-1.12 [facility] Urea nitrogen [Mass/volume] in Serum or PlasmaOrdered By: Sly Benson on 03-05-2023 Urea nitrogen [Mass/Vol] 17 mg/dL 7-25 [facility] WBC Auto (Bld) [#/Vol]Ordere d By: Sly Benson on 03-05-2023 WBC (Bld) [#/Vol] 6.3 10*3/uL 3.8-11.6 [facility] Adrenocorticotropic Hormone PLon 12-30-[address] 28.9 pg/mL Normal 7.2-63.3 [facility] Comment on above: Result Comment: ACTH reference interval for samples collected between 7 and 10 AM. Performed at: - [facility] [address] [id number] [employer]older: Coleman Lacy PhD, Phone: [phone] PERFORMED BY: [place] [address] PATHOLOGIST COMMUNITY FACILITATOR WAYLON SAUNDERS M.D. Performed By: #### C MP, LDH, TSH3, CBC, T4F #### [address] #### ACTH #### [facility] , Alanine aminotransferase [En zymatic activity/volume] in Serum or PlasmaOrdered By: Sly Benson on 12-30-2022 ALT [Catalytic activity/Vol] 24 U/L 7-52 [facility] Albumin [Mass/volume] in Ser um or Plasma by Bromocresol green (BCG) dye binding methoOrdered By: Sly Benson on 12-30-2022 Albumin BCG dye [Mass/Vol] 4.0 g/dL 3.5-5.7 [facility] Alkaline phosphatase [Enzyma tic activity/volume] in Serum or PlasmaOrdered By: Sly Benson on 12-30-2022 ALP [Catalytic activity/Vol] 108 U/L 34-104 [facility] Aspartate aminotransferase [ Enzymatic activity/volume] in Serum or PlasmaOrdered By: Sly Benson on 12-30-2022 AST [Catalytic activity/Vol] 22 U/L 13-39 [facility] Basophils Auto (Bld) [#/Vol] Ordered By: Sly Benson on 12-30-2022 Basophils (Bld) [#/Vol] 0.0 10*3/uL 0.0-0.2 [facility] Basophils/100 WBC Auto (Bld) Ordered By: Sly Benson on 12-30-2022 Basophils/100 WBC (Bld) 0.5 % . [facility] Bilirubin.total [Mass/volume ] in Serum or PlasmaOrdered By: Sly Benson on 12-30-2022 Bilirubin [Mass/Vol] 0.5 mg/dL 0.3-1.0 [facility] Calcium [Mass/volume] in Ser um or PlasmaOrdered By: Sly Benson on 12-30-2022 Calcium [Mass/Vol] 9.1 mg/dL 8.6-10.3 [facility] Carbon dioxide, total [Moles /volume] in Serum or PlasmaOrdered By: Sly Benson on 12-30-2022 CO2 [Moles/Vol] 30.7 mmol/L 21.0-31.0 [facility] Chloride [Moles/volume] in S mellissa or PlasmaOrdered By: Sly Benson on 12-30-2022 Chloride [Moles/Vol] 104 mmol/L 98-107 [facility] Complete Blood Count Auto Di ffon 12-30-2022 Basophils (Bld) [#/Vol] 0.0 10*3/uL Normal 0.0-0.2 [facility] Comment on above: Result Comment: PERF ORMED BY: [place] [address] PATHOLOGIST COMMUNITY FACILITATOR WAYLON SAUNDERS M.D. Performed By: #### C MP, LDH, TSH3, CBC, T4F #### [address] #### ACTH #### [facility] , Basophils/100 WBC (Bld) 0.5 % Normal . [facility] Comment on above: Performed By: #### C MP, LDH, TSH3, CBC, T4F #### [facility] [address] [place] [address] [place] #### ACTH #### [facility] , Eosinophils (Bld) [#/Vol] 0.1 10*3/uL Normal 0.0-0.45 [facility] Comment on above: Performed By: #### C MP, LDH, TSH3, CBC, T4F #### [place] [address] [place] #### ACTH #### [facility] , Eosinophils/100 WBC (Bld) 1.5 % Normal . [facility] Comment on above: Performed By: #### C MP, LDH, TSH3, CBC, T4F #### [place] [address] [place] #### ACTH #### [facility] , Erythrocyte distribution width (RBC) [Ratio] 13.6 % Normal 11.9-15.3 [facility] Comment on above: Performed By: #### C MP, LDH, TSH3, CBC, T4F #### [place] [address] [place] #### ACTH #### [facility] , Hematocrit (Bld) [Volume fraction] 39.0 % Normal 34.0-46.4 [facility] Comment on above: Performed By: #### C MP, LDH, TSH3, CBC, T4F #### [address] #### ACTH #### [facility] , Hemoglobin (Bld) [Mass/Vol] 13.4 g/dL Normal 11.8-15.4 [facility] Comment on above: Performed By: #### C MP, LDH, TSH3, CBC, T4F #### [place] [address] [place] #### ACTH #### [facility] , Lymphocytes (Bld) [#/Vol] 1.6 10*3/uL Normal 1.00-4.8 [facility] Comment on above: Performed By: #### C MP, LDH, TSH3, CBC, T4F #### [place] [address] [place] #### ACTH #### [facility] , Lymphocytes/100 WBC (Bld) 24.0 % Normal . [facility] Comment on above: Performed By: #### C MP, LDH, TSH3, CBC, T4F #### [place] [address] [place] #### ACTH #### [facility] , MCH (RBC) [Entitic mass] 30.0 pg Normal 24.7-34.3 [facility] Comment on above: Performed By: #### C MP, LDH, TSH3, CBC, T4F #### [place] [address] [place] #### ACTH #### [facility] , MCV (RBC) [Entitic vol] 87.4 fL Normal 80-100 [facility] Comment on above: Performed By: #### C MP, LDH, TSH3, CBC, T4F #### [address] #### ACTH #### [facility] , Mean Corpuscular HGB Conc 34.3 g/dL Normal 32.0-35.0 [facility] Comment on above: Performed By: #### C MP, LDH, TSH3, CBC, T4F #### [place] [address] [place] #### ACTH #### [facility] , Monocytes (Bld) [#/Vol] 0.6 10*3/uL Normal 0.0-0.8 [facility] Comment on above: Performed By: #### C MP, LDH, TSH3, CBC, T4F #### [place] [address] [place] #### ACTH #### [facility] , Monocytes/100 WBC (Bld) 9.0 % Normal . [facility] Comment on above: Performed By: #### C MP, LDH, TSH3, CBC, T4F #### [place] [address] [place] #### ACTH #### [facility] , Neutrophils (Bld) [#/Vol] 4.4 10*3/uL Normal 1.8-7.7 [facility] Comment on above: Performed By: #### C MP, LDH, TSH3, CBC, T4F #### [place] [address] [place] #### ACTH #### [facility] , Neutrophils/100 WBC (Bld) 65.0 % Normal . [facility] Comment on above: Performed By: #### C MP, LDH, TSH3, CBC, T4F #### [place] [address] [place] #### ACTH #### [facility] , NRBC% 0.0 /100{WBC} Normal 0-0.5 [facility] Comment on above: Performed By: #### C MP, LDH, TSH3, CBC, T4F #### [place] [address] [place] #### ACTH #### [facility] , Platelet mean volume (Bld) [Entitic vol] 7.4 fL Normal 6.3-10.7 [facility] Comment on above: Performed By: #### C MP, LDH, TSH3, CBC, T4F #### [place] [address] [place] #### ACTH #### [facility] , Platelets (Bld) [#/Vol] 171 10*3/uL Normal 150-450 [facility] Comment on above: Performed By: #### C MP, LDH, TSH3, CBC, T4F #### [place] [address] [place] #### ACTH #### [facility] , RBC (Bld) [#/Vol] 4.46 10*6/uL Normal 3.60-5.00 [facility] Comment on above: Performed By: #### C MP, LDH, TSH3, CBC, T4F #### [place] [address] [place] #### ACTH #### [facility] , WBC (Bld) [#/Vol] 6.8 10*3/uL Normal 3.8-11.6 [facility] Comment on above: Performed By: #### C MP, LDH, TSH3, CBC, T4F #### [facility] [address] [place] [address] #### ACTH #### [facility] , Comprehensive Metabolic Pane walter 12-30-2022 Albumin [Mass/Vol] 4.0 g/dL Normal 3.5-5.7 [facility] Comment on above: Performed By: #### C MP, LDH, TSH3, CBC, T4F #### [facility] [address] [place] [address] #### ACTH #### [facility] , Albumin/Globulin [Mass ratio] 1.6 {ratio} Normal [facility] Comment on above: Performed By: #### C MP, LDH, TSH3, CBC, T4F #### [facility] [address] [place] [address] #### ACTH #### [facility] , ALP [Catalytic activity/Vol] 108 U/L High 34-104 [facility] Comment on above: Performed By: #### C MP, LDH, TSH3, CBC, T4F #### [facility] [address] [place] [address] [place] #### ACTH #### [facility] , ALT [Catalytic activity/Vol] 24 U/L Normal 7-52 [facility] Comment on above: Performed By: #### C MP, LDH, TSH3, CBC, T4F #### [facility] [address] [place] [address] [place] #### ACTH #### [facility] , Anion gap [Moles/Vol] Not performed Normal 6.0-15.0 [facility] Comment on above: Result Comment: --- 12/30/22 1038 --- Gap previously reported as: 10.2 mEq/L Performed By: #### C MP, LDH, TSH3, CBC, T4F #### [facility] [address] [place] [address] [place] #### ACTH #### [facility] , AST [Catalytic activity/Vol] 22 U/L Normal 13-39 [facility] Comment on above: Performed By: #### C MP, LDH, TSH3, CBC, T4F #### [address] #### ACTH #### [facility] , Bilirubin [Mass/Vol] 0.5 mg/dL Normal 0.3-1.0 [facility] Comment on above: Performed By: #### C MP, LDH, TSH3, CBC, T4F #### [address] #### ACTH #### [facility] , Calcium [Mass/Vol] 9.1 mg/dL Normal 8.6-10.3 [facility] Comment on above: Performed By: #### C MP, LDH, TSH3, CBC, T4F #### [address] #### ACTH #### [facility] , Chloride [Moles/Vol] 104 mmol/L Normal 98-107 [facility] Comment on above: Performed By: #### C MP, LDH, TSH3, CBC, T4F #### [place] [address] [place] #### ACTH #### [facility] , CO2 [Moles/Vol] 30.7 mmol/L Normal 21.0-31.0 [facility] Comment on above: Performed By: #### C MP, LDH, TSH3, CBC, T4F #### [place] [address] [place] #### ACTH #### [facility] , Creatinine [Mass/Vol] 0.92 mg/dL Normal 0.60-1.20 [facility] Comment on above: Performed By: #### C MP, LDH, TSH3, CBC, T4F #### [facility] [address] [place] [address] [place] #### ACTH #### [facility] , Creatinine Clr Calc Pharmacy 54.88 [facility] Comment on above: Performed By: #### C MP, LDH, TSH3, CBC, T4F #### [facility] [address] [place] [address] [place] #### ACTH #### [facility] , GFR/1.73 sq M.predicted MDRD (S/P/Bld) [Vol rate/Area] mL/min/{1.73_m2} [facility] Comment on above: Performed By: #### C MP, LDH, TSH3, CBC, T4F #### [facility] [address] [place] [address] [place] #### ACTH #### [facility] , Globulin (S) [Mass/Vol] 2.5 g/dL [facility] Comment on above: Performed By: #### C MP, LDH, TSH3, CBC, T4F #### [facility] [address] [place] [address] [place] #### ACTH #### [facility] , Glucose [Mass/Vol] 102 mg/dL High 70-100 [facility] Comment on above: Result Comment: [place] Glucose Reference Range is dependent on time and content of last meal. Glucose of more than 200 mg/dL in a nonstressed, ambulatory subject supports the diagnosis of Diabetes Mellitus. ADA recommended reference range Performed By: #### C MP, LDH, TSH3, CBC, T4F #### [place] [address] [place] #### ACTH #### [facility] , Potassium Normal 3.5-5.1 [facility] Comment on above: Result Comment: Spec imen hemolyzed, redraw requested --- 12/30/22 1036 --- K previously reported as: 3.9 mmol/L Hemolysis is present at a level that could interfere with the result. Performed By: #### C MP, LDH, TSH3, CBC, T4F #### [place] [address] [place] #### ACTH #### [facility] , Protein [Mass/Vol] 6.5 g/dL Normal 6.4-8.9 [facility] Comment on above: Performed By: #### C MP, LDH, TSH3, CBC, T4F #### [place] [address] [place] #### ACTH #### [facility] , Sodium [Moles/Vol] 141 mmol/L Normal 136-145 [facility] Comment on above: Performed By: #### C MP, LDH, TSH3, CBC, T4F #### [place] [address] [place] #### ACTH #### [facility] , Urea nitrogen [Mass/Vol] 17 mg/dL Normal 7-25 [facility] Comment on above: Performed By: #### C MP, LDH, TSH3, CBC, T4F #### [facility] [address] [place] [address] [place] #### ACTH #### [facility] , Creatinine [Mass/volume] in Serum or PlasmaOrdered By: Sly Benson on 12-30-2022 Creatinine [Mass/Vol] 0.92 mg/dL 0.60-1.20 [facility] Eosinophils Auto (Bld) [#/Vo l]Ordered By: Sly Benson on 12-30-2022 Eosinophils (Bld) [#/Vol] 0.1 10*3/uL 0.0-0.45 [facility] Eosinophils/100 WBC Auto (Bl d)Ordered By: Sly Benson on 12-30-2022 Eosinophils/100 WBC (Bld) 1.5 % . [facility] Erythrocyte distribution wid th Auto (RBC) [Ratio]Ordered By: Sly Benson on 12-30-2022 Erythrocyte distribution width (RBC) [Ratio] 13.6 % 11.9-15.3 [facility] Free T4 (Free Thyroxine)on 0 12-30-2022 Free T4 [Mass/Vol] 1.03 ng/dL Normal 0.61-1.12 [facility] Comment on above: Performed By: #### C MP, LDH, TSH3, CBC, T4F #### [address] #### ACTH #### [facility] , Globulin Calc (S) [Mass/Vol] Ordered By: Sly Benson on 12-30-2022 Globulin (S) [Mass/Vol] 2.5 g/dL [facility] Glucose [Mass/volume] in Ser um or PlasmaOrdered By: Sly Benson on 12-30-2022 Glucose [Mass/Vol] 102 mg/dL 70-100 [facility] Comment on above: ADA recommended refe rence rangeRandom Glucose Reference Range is dependent on time and content of last meal. Glucose of more than 200 mg/dL in a nonstressed, ambulatory subject supports the diagnosis of Diabetes Mellitus. Hematocrit Auto (Bld) [Volum e fraction]Ordered By: Sly Benson on 12-30-2022 Hematocrit (Bld) [Volume fraction] 39.0 % 34.0-46.4 [facility] Hemoglobin [Mass/volume] in BloodOrdered By: Sly Benson on 12-30-2022 Hemoglobin (Bld) [Mass/Vol] 13.4 g/dL 11.8-15.4 [facility] LDH Lactate Dehydrogenaseon 12-30-2022 LDH Lactate Dehydrogenase 211 U/L Normal 140-271 [facility] Comment on above: Result Comment: Hemo lysis is present at a level that could interfere with the result. Performed By: #### C MP, LDH, TSH3, CBC, T4F #### [facility] [address] [place] [id number] [facility] #### ACTH #### [facility] , Lactate dehydrogenase [Enzym atic activity/volume] in Serum or Plasma by Lactate to pyOrdered By: Sly Benson on 12-30-2022 LDH Lactate to pyruvate reaction [Catalytic activity/Vol] 211 U/L 140-271 [facility] Comment on above: Hemolysis is present at a level that could interfere with the result. Leukocytes [#/volume] correc margot for nucleated erythrocytes in Blood by Automated counOrdered By: Sly Benson on 12-30-2022 WBC corrected for nucl RBC Auto (Bld) [#/Vol] 6.8 10*3/uL 3.8-11.6 [facility] Lymphocytes Auto (Bld) [#/Vo l]Ordered By: Sly Benson on 12-30-2022 Lymphocytes (Bld) [#/Vol] 1.6 10*3/uL 1.00-4.8 [facility] Lymphocytes/100 WBC Auto (Bl d)Ordered By: Sly Benson on 12-30-2022 Lymphocytes/100 WBC (Bld) 24.0 % . [facility] MCH Auto (RBC) [Entitic mass ]Ordered By: Sly Benson on 12-30-2022 MCH (RBC) [Entitic mass] 30.0 pg 24.7-34.3 [facility] MCHC Auto (RBC) [Mass/Vol]Or dered By: Sly Benson on 12-30-2022 MCHC (RBC) [Mass/Vol] 34.3 g/dL 32.0-35.0 [facility] MCV Auto (RBC) [Entitic vol] Ordered By: Sly Benson on 12-30-2022 MCV (RBC) [Entitic vol] 87.4 fL 80-100 [facility] Monocytes Auto (Bld) [#/Vol] Ordered By: Sly Benson on 12-30-2022 Monocytes (Bld) [#/Vol] 0.6 10*3/uL 0.0-0.8 [facility] Monocytes/100 WBC Auto (Bld) Ordered By: Sly Benson on 12-30-2022 Monocytes/100 WBC (Bld) 9.0 % . [facility] Neutrophils Auto (Bld) [#/Vo l]Ordered By: Sly Benson on 12-30-2022 Neutrophils (Bld) [#/Vol] 4.4 10*3/uL 1.8-7.7 [facility] Neutrophils/100 WBC Auto (Bl d)Ordered By: Sly Benson on 12-30-2022 Neutrophils/100 WBC (Bld) 65.0 % . [facility] No Panel InformationOrdered By: Sly Benson on 12-30-2022 Adrenocorticotropic Hormone 28.9 pg/mL 7.2-63.3 [facility] Comment on above: ACTH reference inter jamel for samples collected between 7 and10 AM.Performed at: [email or web address] [address] Director: Coleman Lacy PhD, Phone: [phone] Estimated GFR (CKD-EPI) > 60.0 mL/Min [facility] Creatinine Clearance (Chem 54.88 [facility] Nucleated erythrocytes [Pres ence] in Blood by Automated countOrdered By: Sly Benson on 12-30-2022 Nucleated RBC Auto Ql (Bld) 0.0 /100{WBC} 0-0.5 [facility] Platelet mean volume Auto (B ld) [Entitic vol]Ordered By: Sly Benson on 12-30-2022 Platelet mean volume (Bld) [Entitic vol] 7.4 fL 6.3-10.7 [facility] Platelets Auto (Bld) [#/Vol] Ordered By: Sly Benson on 12-30-2022 Platelets (Bld) [#/Vol] 171 10*3/uL 150-450 [facility] Potassium [Moles/volume] in Serum or PlasmaOrdered By: Sly Benson on 12-30-2022 Potassium [Moles/Vol] See comment 3.5-5.1 [facility] Comment on above: Specimen hemolyzed, redraw requested --- 12/30/22 1036 ---K previously reported as: 3.9 mmol/LHemolysis is present at a level that could interfere with the result. Protein [Mass/volume] in Ser um or PlasmaOrdered By: Sly Benson on 12-30-2022 Protein [Mass/Vol] 6.5 g/dL 6.4-8.9 [facility] RBC Auto (Bld) [#/Vol]Ordere d By: Sly Benson on 12-30-2022 RBC (Bld) [#/Vol] 4.46 10*6/uL 3.60-5.00 [facility] Serum or plasma albumin/glob ulin mass ratioOrdered By: Sly Benson on 12-30-2022 Albumin/Globulin [Mass ratio] 1.6 {ratio} [facility] Serum or plasma anion gap de terminationOrdered By: Sly Benson on 12-30-2022 Anion gap [Moles/Vol] TNP [facility] Comment on above: Test not performed-- - 12/30/22 1038 ---Gap previously reported as: 10.2 mEq/L Sodium [Moles/volume] in Ser um or PlasmaOrdered By: Sly Benson on 12-30-2022 Sodium [Moles/Vol] 141 mmol/L 136-145 [facility] Thyroid Stimulating Hormoneo n 12-30-2022 TSH Qn 2.31 m[IU]/L Normal 0.45-5.33 [facility] Comment on above: Result Comment: PERF ORMED BY: [place] [address] PATHOLOGIST COMMUNITY FACILITATOR WAYLON SAUNDERS M.D. Performed By: #### C MP, LDH, TSH3, CBC, T4F #### [place] [address] [place] #### ACTH #### [facility] , Thyrotropin [Units/volume] i n Serum or PlasmaOrdered By: Sly Benson on 12-30-2022 TSH Qn 2.31 m[IU]/L 0.45-5.33 [facility] Thyroxine (T4) free [Mass/vo lume] in Serum or PlasmaOrdered By: Sly Benson on 12-30-2022 Free T4 [Mass/Vol] 1.03 ng/dL 0.61-1.12 [facility] Urea nitrogen [Mass/volume] in Serum or PlasmaOrdered By: Sly Benson on 12-30-2022 Urea nitrogen [Mass/Vol] 17 mg/dL 02-03 [facility] WBC Auto (Bld) [#/Vol]Ordere d By: Sly Benson on 12-30-2022 WBC (Bld) [#/Vol] 6.8 10*3/uL 3.8-11.6 [facility] Adrenocorticotropic Hormone PLon 10-31-[address] 35.2 pg/mL Normal 7.2-63.3 [facility] Comment on above: Result Comment: ACTH reference interval for samples collected between 7 and 10 AM. Performed at: - [facility] [place] [id number] Wax Ball Molder: Coleman Lacy PhD, Phone: [phone] PERFORMED BY: [facility] [address] [place] [address] PATHOLOGIST COMMUNITY FACILITATOR WAYLON SAUNDERS M.D. Performed By: #### T SH3, CBC, LDH, CMP, T4F ####[facility]#### ACTH ####[facility] , Alanine aminotransferase [En zymatic activity/volume] in Serum or PlasmaOrdered By: Sly Benson on 10-31-2022 ALT [Catalytic activity/Vol] 22 U/L [facility] Albumin [Mass/volume] in Ser um or Plasma by Bromocresol green (BCG) dye binding methoOrdered By: Sly Benson on 10-31-2022 Albumin BCG dye [Mass/Vol] 4.0 g/dL 3.5-5.7 [facility] Alkaline phosphatase [Enzyma tic activity/volume] in Serum or PlasmaOrdered By: Sly Benson on 10-31-2022 ALP [Catalytic activity/Vol] 98 U/L 34-104 [facility] Aspartate aminotransferase [ Enzymatic activity/volume] in Serum or PlasmaOrdered By: Sly Benson on 10-31-2022 AST [Catalytic activity/Vol] 28 U/L 13-39 [facility] Basophils Auto (Bld) [#/Vol] Ordered By: Sly Benson on 10-31-2022 Basophils (Bld) [#/Vol] 0.1 10*3/uL 0.0-0.2 [facility] Basophils/100 WBC Auto (Bld) Ordered By: Sly Benson on 10-31-2022 Basophils/100 WBC (Bld) 0.9 % . [facility] Bilirubin.total [Mass/volume ] in Serum or PlasmaOrdered By: Sly Benson on 10-31-2022 Bilirubin [Mass/Vol] 0.7 mg/dL 0.3-1.0 [facility] CT abdomen pelvis w conon CT abdomen pelvis w con [facility] [place] [address] CT Scan Report Signed Patient: Theresa Luu MR#: [id number] : 1945 Acct:[id number] Age/Sex: 77 / F ADM Date: 10/31/22 Loc: Room: Type: [facility] Attending Dr: Sly Benson II DO Copies to: ANTOINETTE Dan II, Ordering Provider: Zenobia Parekr APRN Date of Service: 10/31/22 CT/CT abdomen pelvis w con: restaging ([id number]) CT/CT chest w con: restaging CT CHEST, ABDOMEN AND PELVIS WITH INTRAVENOUS CONTRAST: CLINICAL HISTORY: Restaging melanoma. History of breast cancer. COMPARISON: CT chest, abdomen and pelvis 08/08/2022 TECHNIQUE: TECHNIQUE: Spiral images were obtained through the chest, abdomen and pelvis following the administration of IV contrast. This CT exam was performed using one or more following dose reduction techniques: Automated exposure control, adjustment of the mA and/or kV according to patient size, or use of iterative reconstruction technique. FINDINGS: CT chest: Mediastinum:Thoracic aorta appears normal in caliber. Pulmonary trunk appears nondilated. No pericardial effusion. No lymphadenopathy. The esophagus is grossly unremarkable. Small hiatal hernia. Lungs:No consolidation, pneumothorax or pleural effusion. Bibasilar atelectasis/scarring. Trachea and distal airways appear patent. Once again demonstrated are multiple left lung nodules, largest measuring 6 mm within the left upper lobe series 5 image 24, once measuring 8 mm on the prior study. Interval decrease in size of the lingular nodule series 5 image 44 now measuring 3 mm, once measuring 5 mm on the prior study. 4 mm noncalcified pulmonary nodule left upper lobe series 5 image 24 also decreased in size, once measuring 5 mm. No new or enlarging suspicious pulmonary nodule. Soft tissues/Bones: Visualized soft tissues demonstrate no acute findings. Left breast mastectomy with reconstruction. Osseous structures demonstrate degenerative change. No aggressive bony lesions are seen. CT abdomen and pelvis: Organs:No enhancing liver lesion. Gallbladder, portal vein, spleen, pancreas and adrenal glands all appear unremarkable. No enhancing renal mass or hydronephrosis. Abdominal aorta appears normal in caliber.[ GI: Distal stomach is grossly unremarkable. Small bowel appears nondilated. Left colon diverticulosis.[ Pelvis:[Urinary bladder is grossly unremarkable. IUD is in place. No adnexal mass. Postsurgical changes are identified involving the left groin with presumed necrotic lymph node which appears to have decreased in size now measuring 3.4 cm in short axis once measuring 4.9 cm. The left pelvic sidewall/external iliac lymphadenopathy has also decreased in size with the largest lymph node now measuring 12 mm in short axis, once measuring 22 mm. No new pelvic lymphadenopathy is seen.] Peritoneum/Retroperitoneum :No free air, free fluid or lymphadenopathy.[ Abd wall/Bones:Abdominal wall demonstrates no acute findings. Osseous structures demonstrate degenerative change. No aggressive bony lesions.[ CT/CT chest w con IMPRESSION: Interval decrease in size of the pulmonary nodules as well as the pelvic lymphadenopathy consistent with response to therapy. No CT evidence of progression of disease is seen. Impression dictated by: Sylvain Monroe Jr., D.O.10/31/2022 2:24 PM Dictation Location: [place] [address] Transcribed By: [facility] 10/31/22 1424 Dictated By: Sylvain Monroe Jr, DO 10/31/22 1415 Signed By: 10/31/22 1424 Normal [facility] Calcium [Mass/volume] in Ser um or PlasmaOrdered By: Sly Benson on 10-31-2022 Calcium [Mass/Vol] 8.9 mg/dL 8.6-10.3 [facility] Carbon dioxide, total [Moles /volume] in Serum or PlasmaOrdered By: Sly Benson on 10-31-2022 CO2 [Moles/Vol] 28.6 mmol/L 21.0-31.0 [facility] Chloride [Moles/volume] in S mellissa or PlasmaOrdered By: Sly Benson on 10-31-2022 Chloride [Moles/Vol] 104 mmol/L 98-107 [facility] Complete Blood Count Auto Di ffon 10-31-2022 Basophils (Bld) [#/Vol] 0.1 10*3/uL Normal 0.0-0.2 [facility] Comment on above: Result Comment: PERF ORMED BY: [facility] [address] [place] [address] PATHOLOGIST COMMUNITY FACILITATOR WAYLON SAUNDERS M.D. Performed By: #### T SH3, CBC, LDH, CMP, T4F ####[address]#### ACTH ####[facility] , Basophils/100 WBC (Bld) 0.9 % Normal . [facility] Comment on above: Performed By: #### T SH3, CBC, LDH, CMP, T4F ####[address]#### ACTH ####[facility] , Eosinophils (Bld) [#/Vol] 0.1 10*3/uL Normal 0.0-0.45 [facility] Comment on above: Performed By: #### T SH3, CBC, LDH, CMP, T4F ####[place] [address] [place]#### ACTH ####[facility] , Eosinophils/100 WBC (Bld) 1.8 % Normal . [facility] Comment on above: Performed By: #### T SH3, CBC, LDH, CMP, T4F ####[address]#### ACTH ####[facility] , Erythrocyte distribution width (RBC) [Ratio] 15.0 % Normal 11.9-15.3 [facility] Comment on above: Performed By: #### T SH3, CBC, LDH, CMP, T4F ####[place] [address] [place]#### ACTH ####[facility] , Hematocrit (Bld) [Volume fraction] 41.3 % Normal 34.0-46.4 [facility] Comment on above: Performed By: #### T SH3, CBC, LDH, CMP, T4F ####[address]#### ACTH ####[facility] , Hemoglobin (Bld) [Mass/Vol] 14.0 g/dL Normal 11.8-15.4 [facility] Comment on above: Performed By: #### T SH3, CBC, LDH, CMP, T4F ####[address]#### ACTH ####[facility] , Lymphocytes (Bld) [#/Vol] 1.8 10*3/uL Normal 1.00-4.8 [facility] Comment on above: Performed By: #### T SH3, CBC, LDH, CMP, T4F ####[place] [address] [place]#### ACTH ####[facility] , Lymphocytes/100 WBC (Bld) 26.5 % Normal . [facility] Comment on above: Performed By: #### T SH3, CBC, LDH, CMP, T4F ####[address]#### ACTH ####[facility] , MCH (RBC) [Entitic mass] 29.7 pg Normal 24.7-34.3 [facility] Comment on above: Performed By: #### T SH3, CBC, LDH, CMP, T4F ####[address]#### ACTH ####[facility] , MCV (RBC) [Entitic vol] 87.8 fL Normal 80-100 [facility] Comment on above: Performed By: #### T SH3, CBC, LDH, CMP, T4F ####[address]#### ACTH ####[facility] , Mean Corpuscular HGB Conc 33.8 g/dL Normal 32.0-35.0 [facility] Comment on above: Performed By: #### T SH3, CBC, LDH, CMP, T4F ####[address]#### ACTH ####[facility] , Monocytes (Bld) [#/Vol] 0.8 10*3/uL Normal 0.0-0.8 [facility] Comment on above: Performed By: #### T SH3, CBC, LDH, CMP, T4F ####[place] [address] [place]#### ACTH ####[facility] , Monocytes/100 WBC (Bld) 11.2 % Normal . [facility] Comment on above: Performed By: #### T SH3, CBC, LDH, CMP, T4F ####[place] [address] [place]#### ACTH ####[facility] , Neutrophils (Bld) [#/Vol] 4.0 10*3/uL Normal 1.8-7.7 [facility] Comment on above: Performed By: #### T SH3, CBC, LDH, CMP, T4F ####[address]#### ACTH ####[facility] , Neutrophils/100 WBC (Bld) 59.6 % Normal . [facility] Comment on above: Performed By: #### T SH3, CBC, LDH, CMP, T4F ####[address]#### ACTH ####[facility] , NRBC% 0.0 /100{WBC} Normal 0-0.5 [facility] Comment on above: Performed By: #### T SH3, CBC, LDH, CMP, T4F ####[address]#### ACTH ####[facility] , Platelet mean volume (Bld) [Entitic vol] 7.1 fL Normal 6.3-10.7 [facility] Comment on above: Performed By: #### T SH3, CBC, LDH, CMP, T4F ####[address]#### ACTH ####[facility] , Platelets (Bld) [#/Vol] 201 10*3/uL Normal 150-450 [facility] Comment on above: Performed By: #### T SH3, CBC, LDH, CMP, T4F ####[place] [address] [place]#### ACTH ####[facility] , RBC (Bld) [#/Vol] 4.70 10*6/uL Normal 3.60-5.00 [facility] Comment on above: Performed By: #### T SH3, CBC, LDH, CMP, T4F ####[place] [address] [place]#### ACTH ####[facility] , WBC (Bld) [#/Vol] 6.8 10*3/uL Normal 3.8-11.6 [facility] Comment on above: Performed By: #### T SH3, CBC, LDH, CMP, T4F ####[address]#### ACTH ####[facility] , Comprehensive Metabolic Pane walter 10-31-2022 Albumin [Mass/Vol] 4.0 g/dL Normal 3.5-5.7 [facility] Comment on above: Performed By: #### T SH3, CBC, LDH, CMP, T4F ####[address]#### ACTH ####[facility] , Albumin/Globulin [Mass ratio] 1.4 {ratio} Normal [facility] Comment on above: Performed By: #### T SH3, CBC, LDH, CMP, T4F ####[place] [address] [place]#### ACTH ####[facility] , ALP [Catalytic activity/Vol] 98 U/L Normal 34-104 [facility] Comment on above: Performed By: #### T SH3, CBC, LDH, CMP, T4F ####[place] [address] [place]#### ACTH ####[facility] , ALT [Catalytic activity/Vol] 22 U/L Normal 7-52 [facility] Comment on above: Performed By: #### T SH3, CBC, LDH, CMP, T4F ####[place] [address] [place]#### ACTH ####[facility] , Anion gap [Moles/Vol] 12.2 mmol/L Normal 6.0-15.0 [facility] Comment on above: Performed By: #### T SH3, CBC, LDH, CMP, T4F ####[address]#### ACTH ####[facility] , AST [Catalytic activity/Vol] 28 U/L Normal 13-39 [facility] Comment on above: Performed By: #### T SH3, CBC, LDH, CMP, T4F ####[place] [address] [place]#### ACTH ####[facility] , Bilirubin [Mass/Vol] 0.7 mg/dL Normal 0.3-1.0 [facility] Comment on above: Performed By: #### T SH3, CBC, LDH, CMP, T4F ####[address]#### ACTH ####[facility] , Calcium [Mass/Vol] 8.9 mg/dL Normal 8.6-10.3 [facility] Comment on above: Performed By: #### T SH3, CBC, LDH, CMP, T4F ####[place] [address] [place]#### ACTH ####[facility] , Chloride [Moles/Vol] 104 mmol/L Normal 98-107 [facility] Comment on above: Performed By: #### T SH3, CBC, LDH, CMP, T4F ####[place] [address] [place]#### ACTH ####[facility] , CO2 [Moles/Vol] 28.6 mmol/L Normal 21.0-31.0 [facility] Comment on above: Performed By: #### T SH3, CBC, LDH, CMP, T4F ####[place] [address] [place]#### ACTH ####[facility] , Creatinine [Mass/Vol] 0.93 mg/dL Normal 0.60-1.20 [facility] Comment on above: Performed By: #### T SH3, CBC, LDH, CMP, T4F ####[address]#### ACTH ####[facility] , Creatinine Clr Calc Pharmacy 54.88 [facility] Comment on above: Performed By: #### T SH3, CBC, LDH, CMP, T4F ####[address]#### ACTH ####[facility] , GFR/1.73 sq M.predicted MDRD (S/P/Bld) [Vol rate/Area] mL/min/{1.73_m2} [facility] Comment on above: Performed By: #### T SH3, CBC, LDH, CMP, T4F ####[address]#### ACTH ####[facility] , Globulin (S) [Mass/Vol] 2.9 g/dL [facility] Comment on above: Performed By: #### T SH3, CBC, LDH, CMP, T4F ####[address]#### ACTH ####[facility] , Glucose [Mass/Vol] 100 mg/dL Normal 70-100 [facility] Comment on above: Result Comment: [place] Glucose Reference Range is dependent on time and content of last meal. Glucose of more than 200 mg/dL in a nonstressed, ambulatory subject supports the diagnosis of Diabetes Mellitus. ADA recommended reference range Performed By: #### T SH3, CBC, LDH, CMP, T4F ####[place] [address] [place]#### ACTH ####[facility] , Potassium [Moles/Vol] 3.8 mmol/L Normal 3.5-5.1 [facility] Comment on above: Performed By: #### T SH3, CBC, LDH, CMP, T4F ####[place] [address] [place] [address] [place]#### ACTH ####[facility] , Protein [Mass/Vol] 6.9 g/dL Normal 6.4-8.9 [facility] Comment on above: Performed By: #### T SH3, CBC, LDH, CMP, T4F ####[place] [address] [place]#### ACTH ####[facility] , Sodium [Moles/Vol] 141 mmol/L Normal 136-145 [facility] Comment on above: Performed By: #### T SH3, CBC, LDH, CMP, T4F ####[place] [address] [place]#### ACTH ####[facility] , Urea nitrogen [Mass/Vol] 19 mg/dL Normal 7-25 [facility] Comment on above: Performed By: #### T SH3, CBC, LDH, CMP, T4F ####[place] [address] [place]#### ACTH ####[facility] , Creatinine [Mass/volume] in Serum or PlasmaOrdered By: Sly Benson on 10-31-2022 Creatinine [Mass/Vol] 0.93 mg/dL 0.60-1.20 [facility] Eosinophils Auto (Bld) [#/Vo l]Ordered By: Sly Benson on 10-31-2022 Eosinophils (Bld) [#/Vol] 0.1 10*3/uL 0.0-0.45 [facility] Eosinophils/100 WBC Auto (Bl d)Ordered By: Sly Benson on 10-31-2022 Eosinophils/100 WBC (Bld) 1.8 % . [facility] Erythrocyte distribution wid th Auto (RBC) [Ratio]Ordered By: Sly Benson on 10-31-2022 Erythrocyte distribution width (RBC) [Ratio] 15.0 % 11.9-15.3 [facility] Free T4 (Free Thyroxine)on 0 10-31-2022 Free T4 [Mass/Vol] 1.02 ng/dL Normal 0.61-1.12 [facility] Comment on above: Performed By: #### T SH3, CBC, LDH, CMP, T4F ####[facility] [place] [address] [place]#### ACTH ####[facility] , Globulin Calc (S) [Mass/Vol] Ordered By: Sly Benson on 10-31-2022 Globulin (S) [Mass/Vol] 2.9 g/dL [facility] Glucose [Mass/volume] in Ser um or PlasmaOrdered By: Sly Benson on 10-31-2022 Glucose [Mass/Vol] 100 mg/dL 70-100 [facility] Comment on above: ADA recommended refe rence rangeRandom Glucose Reference Range is dependent on time and content of last meal. Glucose of more than 200 mg/dL in a nonstressed, ambulatory subject supports the diagnosis of Diabetes Mellitus. Hematocrit Auto (Bld) [Volum e fraction]Ordered By: Sly Benson on 10-31-2022 Hematocrit (Bld) [Volume fraction] 41.3 % 34.0-46.4 [facility] Hemoglobin [Mass/volume] in BloodOrdered By: Sly Benson on 10-31-2022 Hemoglobin (Bld) [Mass/Vol] 14.0 g/dL 11.8-15.4 [facility] LDH Lactate Dehydrogenaseon 10-31-2022 LDH Lactate Dehydrogenase 226 U/L Normal 140-271 [facility] Comment on above: Performed By: #### T SH3, CBC, LDH, CMP, T4F ####[facility] [place] [address] [place]#### ACTH ####[facility] , Lactate dehydrogenase [Enzym atic activity/volume] in Serum or Plasma by Lactate to pyOrdered By: Sly Benson on 10-31-2022 LDH Lactate to pyruvate reaction [Catalytic activity/Vol] 226 U/L 140-271 [facility] Leukocytes [#/volume] correc margot for nucleated erythrocytes in Blood by Automated counOrdered By: Sly Benson on 10-31-2022 WBC corrected for nucl RBC Auto (Bld) [#/Vol] 6.8 10*3/uL 3.8-11.6 [facility] Lymphocytes Auto (Bld) [#/Vo l]Ordered By: Sly Benson on 10-31-2022 Lymphocytes (Bld) [#/Vol] 1.8 10*3/uL 1.00-4.8 [facility] Lymphocytes/100 WBC Auto (Bl d)Ordered By: Sly Benson on 10-31-2022 Lymphocytes/100 WBC (Bld) 26.5 % . [facility] MCH Auto (RBC) [Entitic mass ]Ordered By: Sly Benson on 10-31-2022 MCH (RBC) [Entitic mass] 29.7 pg 24.7-34.3 [facility] MCHC Auto (RBC) [Mass/Vol]Or dered By: Sly Benson on 10-31-2022 MCHC (RBC) [Mass/Vol] 33.8 g/dL 32.0-35.0 [facility] MCV Auto (RBC) [Entitic vol] Ordered By: Sly Benson on 10-31-2022 MCV (RBC) [Entitic vol] 87.8 fL 80-100 [facility] Monocytes Auto (Bld) [#/Vol] Ordered By: Sly Benson on 10-31-2022 Monocytes (Bld) [#/Vol] 0.8 10*3/uL 0.0-0.8 [facility] Monocytes/100 WBC Auto (Bld) Ordered By: Sly Benson on 10-31-2022 Monocytes/100 WBC (Bld) 11.2 % . [facility] Neutrophils Auto (Bld) [#/Vo l]Ordered By: Sly Benson on 10-31-2022 Neutrophils (Bld) [#/Vol] 4.0 10*3/uL 1.8-7.7 [facility] Neutrophils/100 WBC Auto (Bl d)Ordered By: Sly Benson on 10-31-2022 Neutrophils/100 WBC (Bld) 59.6 % . [facility] No Panel InformationOrdered By: Sly Benson on 10-31-2022 Adrenocorticotropic Hormone 35.2 pg/mL 7.2-63.3 [facility] Comment on above: ACTH reference inter jamel for samples collected between 7 and10 AM.Performed at: [facility] [id number] Director: Coleman Lacy PhD, Phone: [phone] Estimated GFR (CKD-EPI) > 60.0 mL/Min [facility] Creatinine Clearance (Chem 54.88 [facility] Nucleated erythrocytes [Pres ence] in Blood by Automated countOrdered By: Sly Benson on 10-31-2022 Nucleated RBC Auto Ql (Bld) 0.0 /100{WBC} 0-0.5 [facility] Platelet mean volume Auto (B ld) [Entitic vol]Ordered By: Sly Benson on 10-31-2022 Platelet mean volume (Bld) [Entitic vol] 7.1 fL 6.3-10.7 [facility] Platelets Auto (Bld) [#/Vol] Ordered By: Sly Benson on 10-31-2022 Platelets (Bld) [#/Vol] 201 10*3/uL 150-450 [facility] Potassium [Moles/volume] in Serum or PlasmaOrdered By: Sly Benson on 10-31-2022 Potassium [Moles/Vol] 3.8 mmol/L 3.5-5.1 [facility] Protein [Mass/volume] in Ser um or PlasmaOrdered By: Sly Benson on 10-31-2022 Protein [Mass/Vol] 6.9 g/dL 6.4-8.9 [facility] RBC Auto (Bld) [#/Vol]Ordere d By: Sly Benson on 10-31-2022 RBC (Bld) [#/Vol] 4.70 10*6/uL 3.60-5.00 [facility] Serum or plasma albumin/glob ulin mass ratioOrdered By: Sly Benson on 10-31-2022 Albumin/Globulin [Mass ratio] 1.4 {ratio} [facility] Serum or plasma anion gap de terminationOrdered By: Sly Benson on 10-31-2022 Anion gap [Moles/Vol] 12.2 mmol/L 6.0-15.0 [facility] Sodium [Moles/volume] in Ser um or PlasmaOrdered By: Sly Benson on 10-31-2022 Sodium [Moles/Vol] 141 mmol/L 136-145 [facility] Thyroid Stimulating Hormoneo n 10-31-2022 TSH Qn 2.49 m[IU]/L Normal 0.45-5.33 [facility] Comment on above: Result Comment: PERF ORMED BY: [facility] [address] [place] [address] PATHOLOGIST COMMUNITY FACILITATOR WAYLON SAUNDERS M.D. Performed By: #### T SH3, CBC, LDH, CMP, T4F ####[facility]#### ACTH ####[facility] , Thyrotropin [Units/volume] i n Serum or PlasmaOrdered By: Sly Benson on 10-31-2022 TSH Qn 2.49 m[IU]/L 0.45-5.33 [facility] Thyroxine (T4) free [Mass/vo lume] in Serum or PlasmaOrdered By: Sly Benson on 10-31-2022 Free T4 [Mass/Vol] 1.02 ng/dL 0.61-1.12 [facility] Urea nitrogen [Mass/volume] in Serum or PlasmaOrdered By: Sly Benson on 10-31-2022 Urea nitrogen [Mass/Vol] 19 mg/dL 02-03 [facility] WBC Auto (Bld) [#/Vol]Ordere d By: Sly Benson on 10-31-2022 WBC (Bld) [#/Vol] 6.8 10*3/uL 3.8-11.6 [facility] ACTH, PLASMAon 10-04-2022 ACTH, Plasma 48.7 pg/mL Normal 7.2-63.3 [facility] Comment on above: Result Comment: ACTH reference interval for samples collected between 7 and 10 AM. Performed By: #### A CTHP #### [facility] [address] [place] [address] Dr. Alesia Meyers CBC AUTO DIFFon 10-03-2022 BASO # 0.1 103/ul Normal 0.0-0.1 [facility] Comment on above: Performed By: #### T SH, CMP, LDH #### [facility] [address] [place] [address] Dr. Alesia Meyers Basophils/100 WBC (Bld) 1.2 % Normal 0.2-2.0 [facility] Comment on above: Performed By: #### T SH, CMP, LDH #### [facility] [address] [place] [address] Dr. Alesia Meyers EO # 0.2 103/ul Normal 0.0-0.7 [facility] Comment on above: Performed By: #### T SH, CMP, LDH #### [facility] [address] [place] [address] Dr. Alesia Meyers Eosinophils/100 WBC (Bld) 2.5 % Normal 0.9-7.0 [facility] Comment on above: Performed By: #### T SH, CMP, LDH #### [facility] [address] [place] [address] Dr. Alesia Meyers Erythrocyte distribution width (RBC) [Ratio] 13.9 % Normal 11.0-15.0 [facility] Comment on above: Performed By: #### T SH, CMP, LDH #### [facility] [address] [place] [address] Dr. Alesia Meyers Hematocrit (Bld) [Volume fraction] 41.9 % Normal 36.0-48.0 [facility] Comment on above: Performed By: #### T SH, CMP, LDH #### [facility] [address] [place] [address] Dr. Alesia Meyers Hemoglobin (Bld) [Mass/Vol] 13.6 g/dL Normal 12.0-16.0 [facility] Comment on above: Performed By: #### T SH, CMP, LDH #### [facility] [address] [place] [address] Dr. Alesia Meyers IG # 0.04 10e3/ul Critically high 0.00-0.03 [facility] Comment on above: Performed By: #### T SH, CMP, LDH #### [facility] [address] [place] [address] Dr. Alesia Meyers IG % 0.7 % Critically high 0.0-0.5 [facility] Comment on above: Performed By: #### T SH, CMP, LDH #### [facility] [address] [place] [address] Dr. Alesia Meyers LYMPH # 2.1 103/ul Normal 1.2-3.8 [facility] Comment on above: Performed By: #### T SH, CMP, LDH #### [facility] [address] [place] [address] Dr. Alesia Meyers Lymphocytes/100 WBC (Bld) 35.5 % Normal 20.5-60.0 [facility] Comment on above: Performed By: #### T SH, CMP, LDH #### [facility] [address] [place] [address] Dr. Alesia Meyers MANUAL DIFF REQ NO Normal [facility] Comment on above: Performed By: #### T SH, CMP, LDH #### [facility] [address] [place] [address] Dr. Alesia Meyers MCH (RBC) [Entitic mass] 28.9 pg Normal 26.7-34.0 [facility] Comment on above: Performed By: #### T SH, CMP, LDH #### [facility] [address] [place] [address] Dr. Alesia Meyers MCHC (RBC) [Mass/Vol] 32.5 g/dL Normal 29.9-35.2 [facility] Comment on above: Performed By: #### T SH, CMP, LDH #### [facility] [address] [place] [address] Dr. Alesia Meyers MCV (RBC) [Entitic vol] 89.1 fL Normal 81.0-99.0 [facility] Comment on above: Performed By: #### T SH, CMP, LDH #### [facility] [address] [place] [address] Dr. Alesia Meyers MONO # 0.6 103/ul Normal 0.3-0.8 [facility] Comment on above: Performed By: #### T SH, CMP, LDH #### [facility] [address] [place] [address] Dr. Alesia Meyers Monocytes/100 WBC (Bld) 10.8 % Normal 1.7-12.0 [facility] Comment on above: Performed By: #### T SH, CMP, LDH #### [facility] [address] [place] [address] Dr. Alesia Meyers NEUT # 2.9 103/ul Normal 1.4-6.5 [facility] Comment on above: Performed By: #### T SH, CMP, LDH #### [facility] [address] [place] [address] Dr. Alesia Meyers Neutrophils/100 WBC (Bld) 49.3 % Normal 43.0-75.0 [facility] Comment on above: Performed By: #### T SH, CMP, LDH #### [facility] [address] [place] [address] Dr. Alesia Meyers Platelet mean volume (Bld) [Entitic vol] 8.8 fL Critically low 9.5-13.5 [facility] Comment on above: Performed By: #### T SH, CMP, LDH #### [facility] [address] [place] [address] Dr. Alesia Meyers PLT 226 103/ul Normal 150-450 [facility] Comment on above: Performed By: #### T SH, CMP, LDH #### [facility] [address] [place] [address] Dr. Alesia Meyers RBC 4.70 106/ul Normal 4.20-5.40 [facility] Comment on above: Performed By: #### T SH, CMP, LDH #### [facility] [address] [place] [address] Dr. Alesia Meyers WBC 5.9 103/ul Normal 4.0-11.0 [facility] Comment on above: Performed By: #### T SH, CMP, LDH #### [facility] [address] [place] [address] Dr. Alesia Meyers FREE T4on 10-03-2022 Free T4 [Mass/Vol] 1.02 ng/dL Normal 0.76-1.46 [facility] Comment on above: Performed By: #### F T4 #### [facility] [address] [place] [address] Dr. Alesia Meyers LDHon 10-03-2022 LDH 212 U/L Normal 81-234 [facility] Comment on above: Performed By: #### F T4 #### [facility] [address] [place] [address] Dr. Alesia Meyers PROF 14(COMP METB)on 023 Albumin [Mass/Vol] 3.5 g/dL Normal 3.4-5.0 [facility] Comment on above: Performed By: #### F T4 #### [facility] [address] [place] [address] Dr. Alesia Meyers Albumin/Globulin [Mass ratio] 1.1 {ratio} Normal [facility] Comment on above: Performed By: #### F T4 #### [facility] [address] [place] [address] Dr. Alesia Meyers ALP [Catalytic activity/Vol] 120 U/L Critically high 46-116 [facility] Comment on above: Performed By: #### F T4 #### [facility] [address] [place] [address] Dr. Alesia Meyers ALT [Catalytic activity/Vol] 37 U/L Normal 14-59 [facility] Comment on above: Performed By: #### F T4 #### [facility] [address] [place] [address] Dr. Alesia Meyers Anion gap [Moles/Vol] 11.4 mmol/L Normal [facility] Comment on above: Performed By: #### F T4 #### [facility] [address] [address] [address] Alesia Meyers AST [Catalytic activity/Vol] 28 U/L Normal 15-37 [facility] Comment on above: Performed By: #### F T4 #### [facility] [address] [address] [address] Alesia Meyers Bilirubin [Mass/Vol] 0.4 mg/dL Normal 0.2-1.0 [facility] Comment on above: Performed By: #### F T4 #### [facility] [address] [address] [address] Alesia Meyers Calcium [Mass/Vol] 9.2 mg/dL Normal 8.5-10.1 [facility] Comment on above: Performed By: #### F T4 #### [facility] [address] [place] [address] Dr. Alesia Meyers Chloride [Moles/Vol] 105 mmol/L Normal 98-107 [facility] Comment on above: Performed By: #### F T4 #### [facility] [address] [address] [address] Alesia Meyers CO2 [Moles/Vol] 30.4 mmol/L Normal 21.0-32.0 [facility] Comment on above: Performed By: #### F T4 #### [facility] [address] [place] [address] Dr. Alesia Meyers Creatinine [Mass/Vol] 0.88 mg/dL Normal 0.55-1.02 [facility] Comment on above: Performed By: #### F T4 #### [facility] [address] [place] [address] Dr. Alesia Meyers EGFR-AF PALESTINIAN >60 Normal >=60 [facility] Comment on above: Performed By: #### F T4 #### [facility] [address] [place] [address] Dr. Alesia Meyers EGFR-NON AF PALESTINIAN >60 Normal >=60 [facility] Comment on above: Performed By: #### F T4 #### [facility] [address] [place] [address] Dr. Alesia Meyers Globulin (S) [Mass/Vol] 3.3 g/dL Normal [facility] Comment on above: Performed By: #### F T4 #### [facility] [address] [address] [address] Alesia Meyers Glucose [Mass/Vol] 104 mg/dL Normal 74-106 [facility] Comment on above: Performed By: #### F T4 #### [facility] [address] [address] [address] Alesia Meyers Potassium [Moles/Vol] 3.8 mmol/L Normal 3.5-5.1 [facility] Comment on above: Performed By: #### F T4 #### [facility] [address] [address] [address] Alesia Meyers Protein [Mass/Vol] 6.8 g/dL Normal 6.4-8.2 [facility] Comment on above: Performed By: #### F T4 #### [facility] [address] [place] [address] Dr. Alesia Meyers Sodium [Moles/Vol] 143 mmol/L Normal 136-145 [facility] Comment on above: Performed By: #### F T4 #### [facility] [address] [place] [address] Dr. Aleisa Meyers Urea nitrogen [Mass/Vol] 19.0 mg/dL Critically high 7.0-18.0 [facility] Comment on above: Performed By: #### F T4 #### [facility] [address] [address] [address] Alesia Meyers Urea nitrogen/Creatinine [Mass ratio] 21.6 mg/mg Normal [facility] Comment on above: Performed By: #### F T4 #### [facility] [address] [place] [address] Dr. Alesia Meyers TSHon 10-03-2022 TSH 3.819 uIU/mL Critically high 0.358-3.74 0 [facility] Comment on above: Performed By: #### F T4 #### [facility] [address] [place] [address] Dr. Alesia Meyers ACTH, PLASMAon 09-06-2022 ACTH, Plasma 6.3 pg/mL Critically low 7.2-63.3 [facility] Comment on above: Result Comment: ACTH reference interval for samples collected between 7 and 10 AM. Performed By: #### T SH, CMP, LDH #### [facility] [address] [place] [address] Dr. Alesia Meyers CBC AUTO DIFFon 09-05-2022 BASO # 0.0 103/ul Normal 0.0-0.1 [facility] Comment on above: Performed By: #### T SH, CMP, LDH #### [facility] [address] [place] [address] Dr. Alesia Meyers Basophils/100 WBC (Bld) 0.3 % Normal 0.2-2.0 [facility] Comment on above: Performed By: #### T SH, CMP, LDH #### [facility] [address] [place] [address] Dr. Alesia Meyers EO # 0.1 103/ul Normal 0.0-0.7 [facility] Comment on above: Performed By: #### T SH, CMP, LDH #### [facility] [address] [place] [address] Dr. Alesia Meyers Eosinophils/100 WBC (Bld) 0.6 % Critically low 0.9-7.0 [facility] Comment on above: Performed By: #### T SH, CMP, LDH #### [facility] [address] [place] [address] Dr. Alesia Meyers Erythrocyte distribution width (RBC) [Ratio] 14.4 % Normal 11.0-15.0 [facility] Comment on above: Performed By: #### T SH, CMP, LDH #### [facility] [address] [place] [address] Dr. Alesia Meyers Hematocrit (Bld) [Volume fraction] 41.6 % Normal 36.0-48.0 [facility] Comment on above: Performed By: #### T SH, CMP, LDH #### [facility] [address] [place] [address] Dr. Alesia Meyers Hemoglobin (Bld) [Mass/Vol] 13.7 g/dL Normal 12.0-16.0 [facility] Comment on above: Performed By: #### T SH, CMP, LDH #### [facility] [address] [place] [address] Dr. Alesia Meyers IG # 0.14 10e3/ul Critically high 0.00-0.03 [facility] Comment on above: Performed By: #### T SH, CMP, LDH #### [facility] [address] [place] [address] Dr. Alesia Meyers IG % 1.6 % Critically high 0.0-0.5 [facility] Comment on above: Performed By: #### T SH, CMP, LDH #### [facility] [address] [place] [address] Dr. Alesia Meyers LYMPH # 2.7 103/ul Normal 1.2-3.8 [facility] Comment on above: Performed By: #### T SH, CMP, LDH #### [facility] [address] [place] [address] Dr. Alesia Meyers Lymphocytes/100 WBC (Bld) 30.2 % Normal 20.5-60.0 [facility] Comment on above: Performed By: #### T SH, CMP, LDH #### [facility] [address] [place] [address] Dr. Alesia Meyers MANUAL DIFF REQ NO Normal [facility] Comment on above: Performed By: #### T SH, CMP, LDH #### [facility] [address] [place] [address] Dr. Alesia Meyers MCH (RBC) [Entitic mass] 28.7 pg Normal 26.7-34.0 [facility] Comment on above: Performed By: #### T SH, CMP, LDH #### [facility] [address] [place] [address] Dr. Alesia Meyers MCHC (RBC) [Mass/Vol] 32.9 g/dL Normal 29.9-35.2 [facility] Comment on above: Performed By: #### T SH, CMP, LDH #### [facility] [address] [address] [address] Alesia Meyesr MCV (RBC) [Entitic vol] 87.2 fL Normal 81.0-99.0 [facility] Comment on above: Performed By: #### T SH, CMP, LDH #### [facility] [address] [address] [address] Alesia Meyers MONO # 1.0 103/ul Critically high 0.3-0.8 [facility] Comment on above: Performed By: #### T SH, CMP, LDH #### [facility] [address] [place] [address] Dr. Alesia Meyers Monocytes/100 WBC (Bld) 10.8 % Normal 1.7-12.0 [facility] Comment on above: Performed By: #### T SH, CMP, LDH #### [facility] [address] [place] [address] Dr. Alesia Meyers NEUT # 5.0 103/ul Normal 1.4-6.5 [facility] Comment on above: Performed By: #### T SH, CMP, LDH #### [facility] [address] [place] [address] Dr. Alesia Meyers Neutrophils/100 WBC (Bld) 56.5 % Normal 43.0-75.0 [facility] Comment on above: Performed By: #### T SH, CMP, LDH #### [facility] [address] [place] [address] Dr. Alesia Meyers Platelet mean volume (Bld) [Entitic vol] 9.1 fL Critically low 9.5-13.5 [facility] Comment on above: Performed By: #### T SH, CMP, LDH #### [facility] [address] [place] [address] Dr. Alesia Meyers PLT 217 103/ul Normal 150-450 [facility] Comment on above: Performed By: #### T SH, CMP, LDH #### [facility] [address] [place] [address] Dr. Alesia Meyers RBC 4.77 106/ul Normal 4.20-5.40 [facility] Comment on above: Performed By: #### T SH, CMP, LDH #### [facility] [address] [place] [address] Dr. Alesia Meyers WBC 8.8 103/ul Normal 4.0-11.0 [facility] Comment on above: Performed By: #### T SH, CMP, LDH #### [facility] [address] [place] [address] Dr. Alesia Meyers FREE T4on 09-05-2022 Free T4 [Mass/Vol] 1.22 ng/dL Normal 0.76-1.46 [facility] Comment on above: Performed By: #### F T4 #### [facility] [address] [place] [address] Dr. Alesia Meyers LDHon 09-05-2022 LDH 212 U/L Normal 81-234 [facility] Comment on above: Performed By: #### T SH, CMP, LDH #### [facility] [address] [place] [address] Dr. Alesia Meyers PROF 14(COMP METB)on 023 Albumin [Mass/Vol] 3.4 g/dL Normal 3.4-5.0 [facility] Comment on above: Performed By: #### T SH, CMP, LDH #### [facility] [address] [place] [address] Dr. Alesia Meyers Albumin/Globulin [Mass ratio] 1.1 {ratio} Normal [facility] Comment on above: Performed By: #### T SH, CMP, LDH #### [facility] [address] [place] [address] Dr. Alesia Meyers ALP [Catalytic activity/Vol] 101 U/L Normal 46-116 [facility] Comment on above: Performed By: #### T SH, CMP, LDH #### [facility] [address] [place] [address] Dr. Alesia Meyers ALT [Catalytic activity/Vol] 40 U/L Normal 14-59 [facility] Comment on above: Performed By: #### T SH, CMP, LDH #### [facility] [address] [address] [address] Alesia Meyers Anion gap [Moles/Vol] 10.7 mmol/L Normal [facility] Comment on above: Performed By: #### T SH, CMP, LDH #### [facility] [address] [place] [address] Dr. Alesia Meyers AST [Catalytic activity/Vol] 25 U/L Normal 15-37 [facility] Comment on above: Performed By: #### T SH, CMP, LDH #### [facility] [address] [place] [address] Dr. Alesia Meyers Bilirubin [Mass/Vol] 0.4 mg/dL Normal 0.2-1.0 [facility] Comment on above: Performed By: #### T SH, CMP, LDH #### [facility] [address] [place] [address] Dr. Alesia Meyers Calcium [Mass/Vol] 8.7 mg/dL Normal 8.5-10.1 [facility] Comment on above: Performed By: #### T SH, CMP, LDH #### [facility] [address] [place] [address] Dr. Alesia Meyers Chloride [Moles/Vol] 105 mmol/L Normal 98-107 [facility] Comment on above: Performed By: #### T SH, CMP, LDH #### [facility] [address] [place] [address] Dr. Alesia Meyers CO2 [Moles/Vol] 30.0 mmol/L Normal 21.0-32.0 [facility] Comment on above: Performed By: #### T SH, CMP, LDH #### [facility] [address] [place] [address] Dr. Alesia Meyers Creatinine [Mass/Vol] 0.83 mg/dL Normal 0.55-1.02 [facility] Comment on above: Performed By: #### T SH, CMP, LDH #### [facility] [address] [place] [address] Dr. Alesia Meyers EGFR-AF PALESTINIAN >60 Normal >=60 [facility] Comment on above: Performed By: #### T SH, CMP, LDH #### [facility] [address] [address] [address] Alesia Meyers EGFR-NON AF PALESTINIAN >60 Normal >=60 [facility] Comment on above: Performed By: #### T SH, CMP, LDH #### [facility] [address] [address] [address] Alesia Meyers Globulin (S) [Mass/Vol] 3.2 g/dL Normal [facility] Comment on above: Performed By: #### T SH, CMP, LDH #### [facility] [address] [place] [address] Dr. Alesia Meyers Glucose [Mass/Vol] 96 mg/dL Normal 74-106 [facility] Comment on above: Performed By: #### T SH, CMP, LDH #### [facility] [address] [place] [address] Dr. Alesia Meyers Potassium [Moles/Vol] 3.7 mmol/L Normal 3.5-5.1 [facility] Comment on above: Performed By: #### T SH, CMP, LDH #### [facility] [address] [place] [address] Dr. Alesia Meyers Protein [Mass/Vol] 6.6 g/dL Normal 6.4-8.2 [facility] Comment on above: Performed By: #### T SH, CMP, LDH #### [facility] [address] [place] [address] Dr. Alesia Meyers Sodium [Moles/Vol] 142 mmol/L Normal 136-145 [facility] Comment on above: Performed By: #### T SH, CMP, LDH #### [facility] [address] [place] [address] Dr. Alesia Meyers Urea nitrogen [Mass/Vol] 29.0 mg/dL Critically high 7.0-18.0 [facility] Comment on above: Performed By: #### T SH, CMP, LDH #### [facility] [address] [place] [address] Dr. Alesia Meyers Urea nitrogen/Creatinine [Mass ratio] 34.9 mg/mg Normal [facility] Comment on above: Performed By: #### T SH, CMP, LDH #### [facility] [address] [address] [address] Alesia Meyers TSHon 09-05-2022 TSH 3.372 uIU/mL Normal 0.358-3.74 0 [facility] Comment on above: Performed By: #### T SH, CMP, LDH #### [facility] [address] [address] [address] Alesia Meyers Adrenocorticotropic Hormone PLon 08-08-[address] 35.2 pg/mL Normal 7.2-63.3 [facility] Comment on above: Result Comment: ACTH reference interval for samples collected between 7 and 10 AM. Performed at: [facility] [id number] [employer] Molder: Coleman Lacy PhD, Phone: [phone] PERFORMED BY: [place] [address] PATHOLOGIST COMMUNITY FACILITATOR WAYLON SAUNDERS M.D. Performed By: #### C BC, HEPATIC, CMP, T4F, LIPASE, TSH3, MELVIN, LDH ####[place] [id number]#### ACTH ####[facility] , Albumin [Mass/volume] in Ser um or PlasmaOrdered By: Sly Benson on 08-08-2022 Albumin [Mass/Vol] 4.0 g/dL Normal 3.2-5.5 [facility] Comment on above: Order Comment: STAT BUN/CREAT FOR CT Performed By: #### C BC, HEPATIC, CMP, T4F, LIPASE, TSH3, MELVIN, LDH ####[facility]#### ACTH ####[facility] , Automated basophil %Ordered By: Sly Benson on 08-08-2022 Basophils/100 WBC (Bld) 0.7 % Normal . [facility] Comment on above: Performed By: #### C BC, HEPATIC, CMP, T4F, LIPASE, TSH3, MELVIN, LDH ####[address]#### ACTH ####[facility] , Automated basophil countOrde red By: Sly Benson on 08-08-2022 Basophils (Bld) [#/Vol] 0.1 10*3/uL Normal 0.0-0.2 [facility] Comment on above: Result Comment: PERF ORMED BY: [facility] [address] [place] [address] PATHOLOGIST COMMUNITY FACILITATOR WAYLON SAUNDERS M.D. Performed By: #### C BC, HEPATIC, CMP, T4F, LIPASE, TSH3, MELVIN, LDH ####[address]#### ACTH ####[facility] , Automated blood monocyte cou ntOrdered By: Sly Benson on 08-08-2022 Monocytes (Bld) [#/Vol] 0.7 10*3/uL Normal 0.0-0.8 [facility] Comment on above: Performed By: #### C BC, HEPATIC, CMP, T4F, LIPASE, TSH3, MELVIN, LDH ####[address]#### ACTH ####[facility] , Automated eosinophil %Ordere d By: Sly Benson on 08-08-2022 Eosinophils/100 WBC (Bld) 2.1 % Normal . [facility] Comment on above: Performed By: #### C BC, HEPATIC, CMP, T4F, LIPASE, TSH3, MELVIN, LDH ####[place] [address] [place]#### ACTH ####[facility] , Automated eosinophil countOr dered By: Sly Benson on 08-08-2022 Eosinophils (Bld) [#/Vol] 0.2 10*3/uL Normal 0.0-0.45 [facility] Comment on above: Performed By: #### C BC, HEPATIC, CMP, T4F, LIPASE, TSH3, MELVIN, LDH ####[facility] [place] [address] [place]#### ACTH ####[facility] , Automated monocyte %Ordered By: Sly Benson on 08-08-2022 Monocytes/100 WBC (Bld) 9.0 % Normal . [facility] Comment on above: Performed By: #### C BC, HEPATIC, CMP, T4F, LIPASE, TSH3, MELVIN, LDH ####[place] [id number]#### ACTH ####[facility] , Automated neutrophil %Ordere d By: Sly Benson on 08-08-2022 Neutrophils/100 WBC (Bld) 58.6 % Normal . [facility] Comment on above: Performed By: #### C BC, HEPATIC, CMP, T4F, LIPASE, TSH3, MELVIN, LDH ####[place] [id number]#### ACTH ####[facility] , CT abdomen pelvis w conon CT abdomen pelvis w con [facility] [place] [address] CT Scan Report Signed Patient: Theresa Luu MR#: [id number] : 1945 Acct:[id number] Age/Sex: 76 / F ADM Date: 08/08/22 Loc: Room: Type: [facility] RCR Attending Dr: Sly Benson II, DO Copies to: Sly Benson II, DO Ordering Provider: Sly Benson II, DO Date of Service: 08/08/22 CT/CT abdomen pelvis w con: surveilance ([id number]) CT/CT chest w con: surveilance CT CHEST, ABDOMEN AND PELVIS WITH INTRAVENOUS CONTRAST: CLINICAL HISTORY: Restaging melanoma, swollen lymph node left groin area. COMPARISON: CT chest, abdomen and pelvis 03/26/2022 TECHNIQUE: TECHNIQUE: Spiral images were obtained through the chest, abdomen and pelvis following the administration of IV contrast. This CT exam was performed using one or more following dose reduction techniques: Automated exposure control, adjustment of the mA and/or kV according to patient size, or use of iterative reconstruction technique. FINDINGS: CT chest: Mediastinum:Thoracic aorta is normal in caliber. Pulmonary trunk appears nondilated. No pleural effusion. No lymphadenopathy. The esophagus is grossly unremarkable. Small hiatal hernia. Lungs:Multiple solid noncalcified pulmonary nodules are seen within the left lung, largest measuring 8 mm in greatest axial dimension, once measuring 1 cm in greatest axial dimension within the left upper lobe not seen on series 5 image 104. The right lung nodules appear to have resolved since the prior CT study. Mild bibasilar atelectasis. No pneumothorax, consolidation or pleural effusion. Soft tissues/Bones: Visualized soft tissues surrounding the chest wall demonstrate no acute findings. Osseous structures demonstrate degenerative change. CT abdomen and pelvis: Organs:Liver gallbladder portal vein spleen pancreas and adrenal glands all appear unremarkable. No enhancing renal mass or hydronephrosis. Abdominal aorta appears normal in caliber.[ GI: Distal stomach is grossly unremarkable. Small bowel appears nondilated. Appendix is normal. Left colon diverticulosis.[ Pelvis:[Urinary bladder is grossly unremarkable. IUD is in place. No adnexal mass. Post surgical changes are identified involving left groin region with a presumed enlarged necrotic lymph node measuring 4.9 cm in greatest axial dimension, once measuring 2.2 cm in short axis.] Peritoneum/Retroperitoneum :No free air or free fluid. Enlarged left pelvic sidewall lymph node now measuring 3.8 cm in short axis, once measuring 2 cm in short axis. Additional prominent left external iliac lymph nodes are noted. Abd wall/Bones:Abdominal wall demonstrate no acute findings. Osseous structures demonstrate degenerative change.[ CT/CT chest w con IMPRESSION: Overall, mixed response to therapy is noted. Interval resolution of the right lung nodules compared to the prior study with interval decrease of the dominant nodule involving the left upper lobe suggestive of response to therapy. No CT evidence of progression of disease within the chest. Interval progression size involving the left inguinal/external iliac lymphadenopathy when compared to the prior study suggestive of progression of disease. Impression dictated by: Sylvain Monroe Jr., D.O.08/08/2022 2:22 PM Dictation Location: [place] [address] Transcribed By: [facility] 08/08/22 1422 Dictated By: Sylvain Monroe Jr, DO 08/08/22 1414 Signed By: 08/08/22 1422 [facility] Complete Blood Count Auto Di ffon 08-08-2022 Mean Corpuscular HGB Conc 33.6 g/dL Normal 32.0-35.0 [facility] Comment on above: Performed By: #### C BC, HEPATIC, CMP, T4F, LIPASE, TSH3, MELVIN, LDH ####[address]#### ACTH ####[facility] , NRBC% 0.1 /100{WBC} Normal 0-0.5 [facility] Comment on above: Performed By: #### C BC, HEPATIC, CMP, T4F, LIPASE, TSH3, MELVIN, LDH ####[address]#### ACTH ####[facility] , Comprehensive Metabolic Pane walter 08-08-2022 ALT [Catalytic activity/Vol] 32 U/L Normal 10-60 [facility] Comment on above: Order Comment: STAT BUN/CREAT FOR CT Performed By: #### C BC, HEPATIC, CMP, T4F, LIPASE, TSH3, MELVIN, LDH ####[place] [id number] [place]#### ACTH ####[facility] , Creatinine Clr Calc Pharmacy 55.32 [facility] Comment on above: Order Comment: STAT BUN/CREAT FOR CT Performed By: #### C BC, HEPATIC, CMP, T4F, LIPASE, TSH3, MELVIN, LDH ####[place] [id number] [place]#### ACTH ####[facility] , Estimated GFR ( Sonal > 60 [facility] Comment on above: Order Comment: STAT BUN/CREAT FOR CT Result Comment: GFR estimated reference range: According to KDOQI guidelines, <60 ml/min/1.73m2 is sufficient to diagnose a patient with chronic kidney disease. Performed By: #### C BC, HEPATIC, CMP, T4F, LIPASE, TSH3, MELVIN, LDH ####[place] [address] [address]#### ACTH ####[facility] , Estimated GFR (Non- Am 59 Normal [facility] Comment on above: Order Comment: STAT BUN/CREAT FOR CT Performed By: #### C BC, HEPATIC, CMP, T4F, LIPASE, TSH3, MELVIN, LDH ####[address]#### ACTH ####[facility] , Cortisolon 08-08-2022 Cortisol 11.8 ug/dL Normal [facility] Comment on above: Order Comment: STAT BUN/CREAT FOR CT Result Comment: Refe rence range: AM 6 - 24 ug/dl PM <10 ug/dl PERFORMED BY: [facility] [address] [place] [address] PATHOLOGIST COMMUNITY FACILITATOR WAYLON SAUNDERS M.D. Performed By: #### C BC, HEPATIC, CMP, T4F, LIPASE, TSH3, MELVIN, LDH ####[address]#### ACTH ####[facility] , Direct bilirubin measurement Ordered By: Sly Benson on 08-08-2022 Bilirubin.direct [Mass/Vol] mg/dL 0.0-0.4 [facility] Erythrocyte distribution wid th [Ratio] by Automated countOrdered By: Sly Benson on 08-08-2022 Erythrocyte distribution width (RBC) [Ratio] 14.7 % Normal 11.9-15.3 [facility] Comment on above: Performed By: #### C BC, HEPATIC, CMP, T4F, LIPASE, TSH3, MELVIN, LDH ####[place] [address] [place]#### ACTH ####[facility] , Erythrocytes [#/volume] in B lood by Automated countOrdered By: Sly Benson on 08-08-2022 RBC (Bld) [#/Vol] 4.98 10*6/uL Normal 3.60-5.00 [facility] Comment on above: Performed By: #### C BC, HEPATIC, CMP, T4F, LIPASE, TSH3, MELVIN, LDH ####[place] [address]#### ACTH ####[facility] , Estimated glomerular filtrat ion rate (GFR) non- AmericanOrdered By: Sly Benson on 08-08-2022 GFR/1.73 sq M.predicted among non-blacks MDRD (S/P/Bld) [Vol rate/Area] 59 mL/Min [facility] Hematocrit [Volume Fraction] of Blood by Automated countOrdered By: Sly Benson on 08-08-2022 Hematocrit (Bld) [Volume fraction] 42.9 % Normal 34.0-46.4 [facility] Comment on above: Performed By: #### C BC, HEPATIC, CMP, T4F, LIPASE, TSH3, MELVIN, LDH ####[address]#### ACTH ####[facility] , Hemoglobin [Mass/volume] in BloodOrdered By: Sly Benson on 08-08-2022 Hemoglobin (Bld) [Mass/Vol] 14.4 g/dL Normal 11.8-15.4 [facility] Comment on above: Performed By: #### C BC, HEPATIC, CMP, T4F, LIPASE, TSH3, MELVIN, LDH ####[place] [address] [place]#### ACTH ####[facility] , Hepatic Panelon 08-08-2022 Bilirubin,Indirect Not performed Normal [facility] Comment on above: Order Comment: STAT BUN/CREAT FOR CT Performed By: #### C BC, HEPATIC, CMP, T4F, LIPASE, TSH3, MELVIN, LDH ####[facility] [place] [address] [place]#### ACTH ####[facility] , Bilirubin.indirect [Mass/Vol] mg/dL Normal 0.0-0.4 [facility] Comment on above: Order Comment: STAT BUN/CREAT FOR CT Performed By: #### C BC, HEPATIC, CMP, T4F, LIPASE, TSH3, MELVIN, LDH ####[place] [address] [place] [address] [place]#### ACTH ####[facility] , LDH Lactate Dehydrogenaseon 08-08-2022 LDH Lactate Dehydrogenase 209 U/L High 45-190 [facility] Comment on above: Order Comment: STAT BUN/CREAT FOR CT Performed By: #### C BC, HEPATIC, CMP, T4F, LIPASE, TSH3, MELVIN, LDH ####[address]#### ACTH ####[facility] , Lactate dehydrogenase measur ement (enzymatic activity/volume)Ordered By: Sly Benson on 08-08-2022 LDH (Unsp spec) [Catalytic activity/Vol] 209 U/L 45-190 [facility] Leukocytes [#/volume] correc margot for nucleated erythrocytes in Blood by Automated counOrdered By: Sly Benson on 08-08-2022 WBC corrected for nucl RBC Auto (Bld) [#/Vol] 7.6 10*3/uL 3.8-11.6 [facility] Leukocytes [#/volume] in Blo od by Automated countOrdered By: Sly Benson on 08-08-2022 WBC (Bld) [#/Vol] 7.6 10*3/uL Normal 3.8-11.6 [facility] Comment on above: Performed By: #### C BC, HEPATIC, CMP, T4F, LIPASE, TSH3, MELVIN, LDH ####[address] [address] [place]#### ACTH ####[facility] , LipaseOrdered By: Sly osman on 08-08-2022 Lipase [Catalytic activity/Vol] 33.0 U/L Normal 22-51 [facility] Comment on above: Order Comment: STAT BUN/CREAT FOR CT Performed By: #### C BC, HEPATIC, CMP, T4F, LIPASE, TSH3, MELVIN, LDH ####[address]#### ACTH ####[facility] , Lymphocytes [#/volume] in Bl ood by Automated countOrdered By: Sly Benson on 08-08-2022 Lymphocytes (Bld) [#/Vol] 2.2 10*3/uL Normal 1.00-4.8 [facility] Comment on above: Performed By: #### C BC, HEPATIC, CMP, T4F, LIPASE, TSH3, MELVIN, LDH ####[address]#### ACTH ####[facility] , Lymphocytes/100 leukocytes i n Blood by Automated countOrdered By: Sly Benson on 08-08-2022 Lymphocytes/100 WBC (Bld) 29.6 % Normal . [facility] Comment on above: Performed By: #### C BC, HEPATIC, CMP, T4F, LIPASE, TSH3, MELVIN, LDH ####[place] [address] [place]#### ACTH ####[facility] , MCH [Entitic mass] by Automa margot countOrdered By: Sly Benson on 08-08-2022 MCH (RBC) [Entitic mass] 29.0 pg Normal 24.7-34.3 [facility] Comment on above: Performed By: #### C BC, HEPATIC, CMP, T4F, LIPASE, TSH3, MELVIN, LDH ####[place] [address] [place]#### ACTH ####[facility] , MCHC Auto (RBC) [Mass/Vol]Or dered By: Sly Benson on 08-08-2022 MCHC (RBC) [Mass/Vol] 33.6 g/dL 32.0-35.0 [facility] MCV [Entitic volume] by Auto mated countOrdered By: Sly Benson on 08-08-2022 MCV (RBC) [Entitic vol] 86.1 fL Normal 80-100 [facility] Comment on above: Performed By: #### C BC, HEPATIC, CMP, T4F, LIPASE, TSH3, MELVIN, LDH ####[facility] [id number] [place] [address] [place]#### ACTH ####[facility] , Neutrophils [#/volume] in Bl ood by Automated countOrdered By: Sly Benson on 08-08-2022 Neutrophils (Bld) [#/Vol] 4.4 10*3/uL Normal 1.8-7.7 [facility] Comment on above: Performed By: #### C BC, HEPATIC, CMP, T4F, LIPASE, TSH3, MELVIN, LDH ####[facility] [id number] [place] [address] [place]#### ACTH ####[facility] , No Panel InformationOrdered By: Sly Benson on 08-08-2022 Adrenocorticotropic Hormone 35.2 pg/mL 7.2-63.3 [facility] Comment on above: ACTH reference inter jamel for samples collected between 7 and10 AM.Performed at: - [facility] [id number] Director: Coleman Lacy PhD, Phone: [phone] Estimated GFR () > 60 mL/Min [facility] Comment on above: GFR estimated refere nce range: According to KDOQI guidelines, <60 ml/min/1.73m2 is sufficient to diagnose a patient with chronic kidney disease. Pharmacy Creatinine Clearance (Chem 55.32 [facility] Nucleated erythrocytes [Pres ence] in Blood by Automated countOrdered By: Sly Benson on 08-08-2022 Nucleated RBC Auto Ql (Bld) 0.1 /100{WBC} 0-0.5 [facility] Platelet mean volume [Entiti c volume] in Blood by Automated countOrdered By: Sly Benson on 08-08-2022 Platelet mean volume (Bld) [Entitic vol] 7.5 fL Normal 6.3-10.7 [facility] Comment on above: Performed By: #### C BC, HEPATIC, CMP, T4F, LIPASE, TSH3, MELVIN, LDH ####[facility]#### ACTH ####[facility] , Platelets [#/volume] in Bloo d by Automated countOrdered By: Sly Benson on 08-08-2022 Platelets (Bld) [#/Vol] 216 10*3/uL Normal 150-450 [facility] Comment on above: Performed By: #### C BC, HEPATIC, CMP, T4F, LIPASE, TSH3, MELVIN, LDH ####[place] [address] [address]#### ACTH ####[facility] , Protein [Mass/volume] in Ser um or PlasmaOrdered By: Sly Benson on 08-08-2022 Protein [Mass/Vol] 7.1 g/dL Normal 6.1-7.9 [facility] Comment on above: Order Comment: STAT BUN/CREAT FOR CT Performed By: #### C BC, HEPATIC, CMP, T4F, LIPASE, TSH3, MELVIN, LDH ####[place] [address] [place] [address] [place]#### ACTH ####[facility] , Random cortisol measurementO rdered By: Sly Benson on 08-08-2022 Cortisol [Mass/Vol] 11.8 ug/dL [facility] Comment on above: Reference range: AM 6 - 24 ug/dl PM <10 ug/dl Serum globulin measurement b y calculation (mass/volume)Ordered By: Sly Benson on 08-08-2022 Globulin (S) [Mass/Vol] 3.1 g/dL [facility] Comment on above: Order Comment: STAT BUN/CREAT FOR CT Performed By: #### C BC, HEPATIC, CMP, T4F, LIPASE, TSH3, MELVIN, LDH ####[facility]#### ACTH ####[facility] , Serum or plasma alanine castro otransferase measurement without P-5'-P (enzymatic activiOrdered By: Sly Benson on 08-08-2022 ALT No additional P-5'-P [Catalytic activity/Vol] 32 U/L 10-60 [facility] Serum or plasma albumin/glob ulin mass ratioOrdered By: Sly Benson on 08-08-2022 Albumin/Globulin [Mass ratio] 1.3 {ratio} [facility] Comment on above: Order Comment: STAT BUN/CREAT FOR CT Performed By: #### C BC, HEPATIC, CMP, T4F, LIPASE, TSH3, MELVIN, LDH ####[place] [address] [address]#### ACTH ####[facility] , Serum or plasma alkaline halle sphatase measurement (enzymatic activity/volume)Ordered By: Sly Benson on 08-08-2022 ALP [Catalytic activity/Vol] 99 U/L High 32-92 [facility] Comment on above: Order Comment: STAT BUN/CREAT FOR CT Performed By: #### C BC, HEPATIC, CMP, T4F, LIPASE, TSH3, MELVIN, LDH ####[facility] [place] [address] [place]#### ACTH ####[facility] , Serum or plasma anion gap de terminationOrdered By: Sly Benson on 08-08-2022 Anion gap [Moles/Vol] 11.2 mmol/L Normal 6.0-15.0 [facility] Comment on above: Order Comment: STAT BUN/CREAT FOR CT Performed By: #### C BC, HEPATIC, CMP, T4F, LIPASE, TSH3, MELVIN, LDH ####[place] [address] [place] [address] [place]#### ACTH ####[facility] , Serum or plasma aspartate am inotransferase measurement (enzymatic activity/volume)Ordered By: Sly Benson on 08-08-2022 AST [Catalytic activity/Vol] 34 U/L Normal 10-42 [facility] Comment on above: Order Comment: STAT BUN/CREAT FOR CT Performed By: #### C BC, HEPATIC, CMP, T4F, LIPASE, TSH3, MELVIN, LDH ####[address]#### ACTH ####[facility] , Serum or plasma calcium diamond urement (mass/volume)Ordered By: Sly Benson on 08-08-2022 Calcium [Mass/Vol] 9.3 mg/dL Normal 8.2-10.2 [facility] Comment on above: Order Comment: STAT BUN/CREAT FOR CT Performed By: #### C BC, HEPATIC, CMP, T4F, LIPASE, TSH3, MELVIN, LDH ####[place] [address] [place]#### ACTH ####[facility] , Serum or plasma chloride zora surement (moles/volume)Ordered By: Sly Benson on 08-08-2022 Chloride [Moles/Vol] 102 mmol/L Normal 95-114 [facility] Comment on above: Order Comment: STAT BUN/CREAT FOR CT Performed By: #### C BC, HEPATIC, CMP, T4F, LIPASE, TSH3, MELVIN, LDH ####[place] [address] [place]#### ACTH ####[facility] , Serum or plasma creatinine m easurement with calculation of estimated glomerular filtrOrdered By: Sly Benson on 08-08-2022 Creatinine [Mass/Vol] 0.93 mg/dL Normal 0.44-1.03 [facility] Comment on above: Order Comment: STAT BUN/CREAT FOR CT Performed By: #### C BC, HEPATIC, CMP, T4F, LIPASE, TSH3, MELVIN, LDH ####[facility]#### ACTH ####[facility] , Serum or plasma glucose diamond urement (mass/volume)Ordered By: Sly Benson on 08-08-2022 Glucose [Mass/Vol] 101 mg/dL High 70-100 [facility] Comment on above: ADA recommended refe rence rangeRandom Glucose Reference Range is dependent on time and content of last meal. Glucose of more than 200 mg/dL in a nonstressed, ambulatory subject supports the diagnosis of Diabetes Mellitus. Order Comment: STAT BUN/CREAT FOR CT Result Comment: [place] om Glucose Reference Range is dependent on time and content of last meal. Glucose of more than 200 mg/dL in a nonstressed, ambulatory subject supports the diagnosis of Diabetes Mellitus. ADA recommended reference range Performed By: #### C BC, HEPATIC, CMP, T4F, LIPASE, TSH3, MELVIN, LDH ####[place] [address] [address]#### ACTH ####[facility] , Serum or plasma non-glucuron idated bilirubin measurement (mass/volume)Ordered By: Sly Benson on 08-08-2022 Bilirubin.indirect [Mass/Vol] TNP [facility] Comment on above: Test not performed Serum or plasma potassium me asurement (moles/volume)Ordered By: Sly Benson on 08-08-2022 Potassium [Moles/Vol] 3.3 mmol/L Low 3.5-5.1 [facility] Comment on above: Order Comment: STAT BUN/CREAT FOR CT Performed By: #### C BC, HEPATIC, CMP, T4F, LIPASE, TSH3, MELVIN, LDH ####[place] [address] [place] [address] [place]#### ACTH ####[facility] , Serum or plasma sodium measu rement (moles/volume)Ordered By: Sly Benson on 08-08-2022 Sodium [Moles/Vol] 139 mmol/L Normal 136-146 [facility] Comment on above: Order Comment: STAT BUN/CREAT FOR CT Performed By: #### C BC, HEPATIC, CMP, T4F, LIPASE, TSH3, MELVIN, LDH ####[place] [address] [address]#### ACTH ####[facility] , Serum or plasma thyroid stim ulating hormone (TSH) measurement by high sensitivity metOrdered By: Sly Benson on 08-08-2022 TSH Qn 2.80 m[IU]/L Normal 0.45-5.33 [facility] Comment on above: Order Comment: STAT BUN/CREAT FOR CT Performed By: #### C BC, HEPATIC, CMP, T4F, LIPASE, TSH3, MELVIN, LDH ####[address]#### ACTH ####[facility] , Serum or plasma total biliru bin measurement (mass/volume)Ordered By: Sly Benson on 08-08-2022 Bilirubin [Mass/Vol] 0.7 mg/dL Normal 0.3-1.2 [facility] Comment on above: Order Comment: STAT BUN/CREAT FOR CT Performed By: #### C BC, HEPATIC, CMP, T4F, LIPASE, TSH3, MELVNI, LDH ####[address]#### ACTH ####[facility] , Serum or plasma total carbon dioxide measurement (moles/volume)Ordered By: Sly Benson on 08-08-2022 CO2 [Moles/Vol] 29.1 mmol/L Normal 22.0-30.0 [facility] Comment on above: Order Comment: STAT BUN/CREAT FOR CT Performed By: #### C BC, HEPATIC, CMP, T4F, LIPASE, TSH3, MELVIN, LDH ####[place] [address] [place] [address] [place]#### ACTH ####[facility] , Serum or plasma urea nitroge n measurement (mass/volume)Ordered By: Sly Benson on 08-08-2022 Urea nitrogen [Mass/Vol] 18 mg/dL Normal 9-23 [facility] Comment on above: Order Comment: STAT BUN/CREAT FOR CT Performed By: #### C BC, HEPATIC, CMP, T4F, LIPASE, TSH3, MELVIN, LDH ####[facility]#### ACTH ####[facility] , Thyroxine (T4) free [Mass/vo lume] in Serum or PlasmaOrdered By: Sly Benson on 08-08-2022 Free T4 [Mass/Vol] 0.99 ng/dL Normal 0.61-1.12 [facility] Comment on above: Order Comment: STAT BUN/CREAT FOR CT Performed By: #### C BC, HEPATIC, CMP, T4F, LIPASE, TSH3, MELVIN, LDH ####[facility] [place] [address] [place]#### ACTH ####[facility] , ACTH, PLASMAon 07-22-2022 ACTH, Plasma 29.5 pg/mL Normal 7.2-63.3 [facility] Comment on above: Result Comment: ACTH reference interval for samples collected between 7 and 10 AM. Performed By: #### A CTHP #### [facility] [address] [place] [address] [address] Alesia Meyers CORTISOLon 07-22-2022 Cortisol 10.0 ug/dL Normal [facility] Comment on above: Result Comment: Melvin isol AM 6.2 - 19.4 Cortisol PM 2.3 - 11.9 Performed By: #### T SH, CMP, LDH #### [facility] [address] [place] [address] [address] Alesia Meyers CBC AUTO DIFFon 07-21-2022 BASO # 0.0 103/ul Normal 0.0-0.1 [facility] Comment on above: Performed By: #### T SH, CMP, LDH #### [facility] [address] [place] [address] Dr. Alesia Meyers Basophils/100 WBC (Bld) 0.6 % Normal 0.2-2.0 [facility] Comment on above: Performed By: #### T SH, CMP, LDH #### [facility] [address] [place] [address] Dr. Alesia Meyers EO # 0.1 103/ul Normal 0.0-0.7 [facility] Comment on above: Performed By: #### T SH, CMP, LDH #### [facility] [address] [place] [address] Dr. Alesia Meyers Eosinophils/100 WBC (Bld) 1.8 % Normal 0.9-7.0 [facility] Comment on above: Performed By: #### T SH, CMP, LDH #### [facility] [address] [place] [address] Dr. Alesia Meyers Erythrocyte distribution width (RBC) [Ratio] 13.2 % Normal 11.0-15.0 [facility] Comment on above: Performed By: #### T SH, CMP, LDH #### [facility] [address] [place] [address] Dr. Alesia Meyers Hematocrit (Bld) [Volume fraction] 40.4 % Normal 36.0-48.0 [facility] Comment on above: Performed By: #### T SH, CMP, LDH #### [facility] [address] [place] [address] Dr. Alesia Meyers Hemoglobin (Bld) [Mass/Vol] 14.1 g/dL Normal 12.0-16.0 [facility] Comment on above: Performed By: #### T SH, CMP, LDH #### [facility] [address] [place] [address] Dr. Alesia Meyers IG # 0.03 10e3/ul Normal 0.00-0.03 [facility] Comment on above: Performed By: #### T SH, CMP, LDH #### [facility] [address] [place] [address] Dr. Alesia Meyers IG % 0.4 % Normal 0.0-0.5 [facility] Comment on above: Performed By: #### T SH, CMP, LDH #### [facility] [address] [place] [address] Dr. Alesia Meyers LYMPH # 1.9 103/ul Normal 1.2-3.8 [facility] Comment on above: Performed By: #### T SH, CMP, LDH #### [facility] [address] [place] [address] Dr. Alesia Meyers Lymphocytes/100 WBC (Bld) 27.5 % Normal 20.5-60.0 [facility] Comment on above: Performed By: #### T SH, CMP, LDH #### [facility] [address] [place] [address] Dr. Alesia Meyers MANUAL DIFF REQ NO Normal [facility] Comment on above: Performed By: #### T SH, CMP, LDH #### [facility] [address] [place] [address] Dr. Alesia Meyers MCH (RBC) [Entitic mass] 28.4 pg Normal 26.7-34.0 [facility] Comment on above: Performed By: #### T SH, CMP, LDH #### [facility] [address] [place] [address] Dr. Alesia Meyers MCHC (RBC) [Mass/Vol] 34.9 g/dL Normal 29.9-35.2 [facility] Comment on above: Performed By: #### T SH, CMP, LDH #### [facility] [address] [place] [address] Dr. Alesia Meyers MCV (RBC) [Entitic vol] 81.5 fL Normal 81.0-99.0 [facility] Comment on above: Performed By: #### T SH, CMP, LDH #### [facility] [address] [place] [address] Dr. Alesia Meyers MONO # 0.3 103/ul Normal 0.3-0.8 [facility] Comment on above: Performed By: #### T SH, CMP, LDH #### [facility] [address] [place] [address] Dr. Alesia Meyers Monocytes/100 WBC (Bld) 4.9 % Normal 1.7-12.0 [facility] Comment on above: Performed By: #### T SH, CMP, LDH #### [facility] [address] [place] [address] Dr. Alesia Meyers NEUT # 4.4 103/ul Normal 1.4-6.5 [facility] Comment on above: Performed By: #### T SH, CMP, LDH #### [facility] [address] [place] [address] Dr. Alesia Meyers Neutrophils/100 WBC (Bld) 64.8 % Normal 43.0-75.0 [facility] Comment on above: Performed By: #### T SH, CMP, LDH #### [facility] [address] [place] [address] Dr. Alesia Meyers Platelet mean volume (Bld) [Entitic vol] 8.8 fL Critically low 9.5-13.5 [facility] Comment on above: Performed By: #### T SH, CMP, LDH #### [facility] [address] [place] [address] Dr. Alesia Meyers PLT 214 103/ul Normal 150-450 [facility] Comment on above: Performed By: #### T SH, CMP, LDH #### [facility] [address] [place] [address] Dr. Alesia Meyers RBC 4.96 106/ul Normal 4.20-5.40 [facility] Comment on above: Performed By: #### T SH, CMP, LDH #### [facility] [address] [place] [address] Dr. Alesia Meyers WBC 6.8 103/ul Normal 4.0-11.0 [facility] Comment on above: Performed By: #### T SH, CMP, LDH #### [facility] [address] [place] [address] Dr. Alesia Meyers FREE T4on 07-21-2022 Free T4 [Mass/Vol] 1.06 ng/dL Normal 0.76-1.46 [facility] Comment on above: Performed By: #### T SH, CMP, LDH #### [facility] [address] [place] [address] Dr. Alesia Meyers LDHon 07-21-2022 LDH 243 U/L Critically high 81-234 [facility] [facility] Comment on above: Performed By: #### T SH, CMP, LDH #### [facility] [address] [place] [address] Dr. Alesia Meyers LIPASEon 07-21-2022 Lipase [Catalytic activity/Vol] 73.0 U/L Normal 73.0-393.0 [facility] Comment on above: Performed By: #### T SH, CMP, LDH #### [facility] [address] [place] [address] Dr. Alesia Meyers LIVER PROFILEon 07-21-2022 Albumin [Mass/Vol] 3.5 g/dL Normal 3.4-5.0 [facility] Comment on above: Performed By: #### T SH, CMP, LDH #### [facility] [address] [place] [address] Dr. Alesia Meyers Albumin/Globulin [Mass ratio] 0.9 {ratio} Normal [facility] Comment on above: Performed By: #### T SH, CMP, LDH #### [facility] [address] [place] [address] Dr. Alesia Meyers ALP [Catalytic activity/Vol] 130 U/L Critically high 46-116 [facility] Comment on above: Performed By: #### T SH, CMP, LDH #### [facility] [address] [place] [address] Dr. Alesia Meyers ALT [Catalytic activity/Vol] 35 U/L Normal 14-59 [facility] Comment on above: Performed By: #### T SH, CMP, LDH #### [facility] [address] [place] [address] Dr. Alesia Meyers AST [Catalytic activity/Vol] 37 U/L Normal 15-37 [facility] Comment on above: Performed By: #### T SH, CMP, LDH #### [facility] [address] [place] [address] Dr. Alesia Meyers BILI, CONJUGATED 0.1 mg/dL Normal 0.0-0.2 [facility] Comment on above: Performed By: #### T SH, CMP, LDH #### [facility] [address] [place] [address] Dr. Alesia Meyers Bilirubin [Mass/Vol] 0.4 mg/dL Normal 0.2-1.0 [facility] Comment on above: Performed By: #### T SH, CMP, LDH #### [facility] [address] [place] [address] Dr. Alesia Meyers Globulin (S) [Mass/Vol] 3.8 g/dL Normal [facility] Comment on above: Performed By: #### T SH, CMP, LDH #### [facility] [address] [place] [address] Dr. Alesia Meyers Protein [Mass/Vol] 7.3 g/dL Normal 6.4-8.2 [facility] Comment on above: Performed By: #### T SH, CMP, LDH #### [facility] [address] [place] [address] Dr. Alesia Meyers PROF CHEM 8 (BAS METB)on Anion gap [Moles/Vol] 12.1 mmol/L Normal [facility] Comment on above: Performed By: #### T SH, CMP, LDH #### [facility] [address] [place] [address] Dr. Alesia Meyers Calcium [Mass/Vol] 9.2 mg/dL Normal 8.5-10.1 [facility] Comment on above: Performed By: #### T SH, CMP, LDH #### [facility] [address] [place] [address] Dr. Alesia Meyers Chloride [Moles/Vol] 102 mmol/L Normal 98-107 [facility] Comment on above: Performed By: #### T SH, CMP, LDH #### [facility] [address] [place] [address] Dr. Alesia Meyers CO2 [Moles/Vol] 30.5 mmol/L Normal 21.0-32.0 [facility] Comment on above: Performed By: #### T SH, CMP, LDH #### [facility] [address] [address] [address] Alesia Meyers Creatinine [Mass/Vol] 0.87 mg/dL Normal 0.55-1.02 [facility] Comment on above: Performed By: #### T SH, CMP, LDH #### [facility] [address] [address] [address] Alesia Meyers EGFR-AF PALESTINIAN >60 Normal >=60 [facility] Comment on above: Performed By: #### T SH, CMP, LDH #### [facility] [address] [address] [address] Alesia Meyers EGFR-NON AF PALESTINIAN >60 Normal >=60 [facility] Comment on above: Performed By: #### T SH, CMP, LDH #### [facility] [address] [address] [address] Alesia Meyers Glucose [Mass/Vol] 178 mg/dL Critically high 74-106 [facility] Comment on above: Performed By: #### T SH, CMP, LDH #### [facility] [address] [address] [address] Alesia Meyers Potassium [Moles/Vol] 3.6 mmol/L Normal 3.5-5.1 [facility] Comment on above: Performed By: #### T SH, CMP, LDH #### [facility] [address] [address] [address] Alesia Meyers Sodium [Moles/Vol] 141 mmol/L Normal 136-145 [facility] Comment on above: Performed By: #### T SH, CMP, LDH #### [facility] [address] [address] [address] Alesia Meyers Urea nitrogen [Mass/Vol] 16.0 mg/dL Normal 7.0-18.0 [facility] Comment on above: Performed By: #### T SH, CMP, LDH #### [facility] [address] [address] [address] Alesia Meyers Urea nitrogen/Creatinine [Mass ratio] 18.4 mg/mg Normal [facility] Comment on above: Performed By: #### T SH, CMP, LDH #### [facility] [address] [place] [address] Dr. Alesia Meyers TSHon 07-21-2022 TSH 2.383 uIU/mL Normal 0.358-3.74 0 [facility] Comment on above: Performed By: #### T SH, CMP, LDH #### [facility] [address] [place] [address] Dr. Alesia Meyers ACTH, PLASMAon 06-21-2022 ACTH, Plasma 30.4 pg/mL Normal 7.2-63.3 [facility] Comment on above: Result Comment: ACTH reference interval for samples collected between 7 and 10 AM. Performed By: #### T SH, CMP, LDH #### [facility] [address] [place] [address] Dr. Alesia Meyers CORTISOLon 06-21-2022 Cortisol 16.9 ug/dL Normal [facility] Comment on above: Result Comment: Melvin isol AM 6.2 - 19.4 Cortisol PM 2.3 - 11.9 Performed By: #### C ORTISO #### [facility] [address] [place] [address] Dr. Alesia Meyers CBC AUTO DIFFon 06-20-2022 BASO # 0.0 103/ul Normal 0.0-0.1 [facility] Comment on above: Performed By: #### T SH, CMP, LDH #### [facility] [address] [place] [address] Dr. Alesia Meyers Basophils/100 WBC (Bld) 0.5 % Normal 0.2-2.0 [facility] Comment on above: Performed By: #### T SH, CMP, LDH #### [facility] [address] [place] [address] Dr. Alesia Meyers EO # 0.1 103/ul Normal 0.0-0.7 [facility] Comment on above: Performed By: #### T SH, CMP, LDH #### [facility] [address] [place] [address] Dr. Alesia Meyers Eosinophils/100 WBC (Bld) 2.1 % Normal 0.9-7.0 [facility] Comment on above: Performed By: #### T SH, CMP, LDH #### [facility] [address] [place] [address] Dr. Alesia Meyers Erythrocyte distribution width (RBC) [Ratio] 13.3 % Normal 11.0-15.0 [facility] Comment on above: Performed By: #### T SH, CMP, LDH #### [facility] [address] [place] [address] Dr. Alesia Meyers Hematocrit (Bld) [Volume fraction] 40.2 % Normal 36.0-48.0 [facility] Comment on above: Performed By: #### T SH, CMP, LDH #### [facility] [address] [place] [address] Dr. Alesia Meyers Hemoglobin (Bld) [Mass/Vol] 13.5 g/dL Normal 12.0-16.0 [facility] Comment on above: Performed By: #### T SH, CMP, LDH #### [facility] [address] [place] [address] Dr. Alesia Meyers IG # 0.02 10e3/ul Normal 0.00-0.03 [facility] Comment on above: Performed By: #### T SH, CMP, LDH #### [facility] [address] [place] [address] Dr. Alesia Meyers IG % 0.3 % Normal 0.0-0.5 [facility] Comment on above: Performed By: #### T SH, CMP, LDH #### [facility] [address] [place] [address] Dr. Alesia Meyers LYMPH # 2.3 103/ul Normal 1.2-3.8 [facility] Comment on above: Performed By: #### T SH, CMP, LDH #### [facility] [address] [place] [address] Dr. Alesia Meyers Lymphocytes/100 WBC (Bld) 35.0 % Normal 20.5-60.0 [facility] Comment on above: Performed By: #### T SH, CMP, LDH #### [facility] [address] [place] [address] Dr. Alesia Meyers MANUAL DIFF REQ NO Normal [facility] Comment on above: Performed By: #### T SH, CMP, LDH #### [facility] [address] [place] [address] Dr. Alesia Meyers MCH (RBC) [Entitic mass] 29.3 pg Normal 26.7-34.0 [facility] Comment on above: Performed By: #### T SH, CMP, LDH #### [facility] [address] [place] [address] Dr. Alesia Meyers MCHC (RBC) [Mass/Vol] 33.6 g/dL Normal 29.9-35.2 [facility] Comment on above: Performed By: #### T SH, CMP, LDH #### [facility] [address] [place] [address] Dr. Alesia Meyers MCV (RBC) [Entitic vol] 87.2 fL Normal 81.0-99.0 [facility] Comment on above: Performed By: #### T SH, CMP, LDH #### [facility] [address] [place] [address] Dr. Alesia Meyers MONO # 0.6 103/ul Normal 0.3-0.8 [facility] Comment on above: Performed By: #### T SH, CMP, LDH #### [facility] [address] [place] [address] Dr. Alesia Meyers Monocytes/100 WBC (Bld) 8.8 % Normal 1.7-12.0 [facility] Comment on above: Performed By: #### T SH, CMP, LDH #### [facility] [address] [place] [address] Dr. Alesia Meyers NEUT # 3.5 103/ul Normal 1.4-6.5 [facility] Comment on above: Performed By: #### T SH, CMP, LDH #### [facility] [address] [place] [address] Dr. Alesia Meyers Neutrophils/100 WBC (Bld) 53.3 % Normal 43.0-75.0 [facility] Comment on above: Performed By: #### T SH, CMP, LDH #### [facility] [address] [place] [address] Dr. Alesia Meyers Platelet mean volume (Bld) [Entitic vol] 9.0 fL Critically low 9.5-13.5 [facility] Comment on above: Performed By: #### T SH, CMP, LDH #### [facility] [address] [place] [address] Dr. Alesia Meyers PLT 230 103/ul Normal 150-450 [facility] Comment on above: Performed By: #### T SH, CMP, LDH #### [facility] [address] [place] [address] Dr. Alesia Meyers RBC 4.61 106/ul Normal 4.20-5.40 [facility] Comment on above: Performed By: #### T SH, CMP, LDH #### [facility] [address] [place] [address] Dr. Alesia Meyers WBC 6.6 103/ul Normal 4.0-11.0 [facility] Comment on above: Performed By: #### T SH, CMP, LDH #### [facility] [address] [place] [address] Dr. Alesia Meyers FREE T4on 06-20-2022 Free T4 [Mass/Vol] 1.15 ng/dL Normal 0.76-1.46 [facility] Comment on above: Performed By: #### T SH, CMP, LDH #### [facility] [address] [place] [address] Dr. Aleisa Meyers LDHon 06-20-2022 LDH 224 U/L Normal 81-234 [facility] Comment on above: Performed By: #### T SH, CMP, LDH #### [facility] [address] [place] [address] Dr. Alesia Meyers LIPASEon 06-20-2022 Lipase [Catalytic activity/Vol] 78.0 U/L Normal 73.0-393.0 [facility] Comment on above: Performed By: #### T SH, CMP, LDH #### [facility] [address] [place], [place] [address] Dr. Alesia Meyers LIPID PROFILEon 06-20-2022 CHOL-HDL RATIO NORM SEE BELOW Normal [facility] Comment on above: Result Comment: 3.3 - 4.4 LOW RISK 4.4 - 7.1 AVERAGE RISK 7.1 - 11.0 MODERATE RISK >11.0 HIGH RISK Performed By: #### T SH, CMP, LDH #### [facility] [address] [address] [address] Alesia Meyers Cholesterol [Mass/Vol] 153 mg/dL Normal <=200 [facility] Comment on above: Performed By: #### T SH, CMP, LDH #### [facility] [address] [address] [address] Alesia Meyers Cholesterol in HDL [Mass/Vol] 80 mg/dL Critically high 40-60 [facility] Comment on above: Performed By: #### T SH, CMP, LDH #### [facility] [address] [address] [address] Alesia Meyers Cholesterol in LDL [Mass/Vol] 52.8 mg/dL Normal [facility] Comment on above: Performed By: #### T SH, CMP, LDH #### [facility] [address] [id number] [address] Alesia Meyers Cholesterol.total/Chol esterol in HDL [Mass ratio] 1.9 {ratio} Normal [facility] Comment on above: Performed By: #### T SH, CMP, LDH #### [facility] [address] [address] [address] Alesia Meyers HDL NORMAL > or = 60 mg/dl - LO W CARDIOVASCULAR RISK <40 mg/dl - HIGH CARDIOVASCULAR RISK Normal [facility] Comment on above: Performed By: #### T SH, CMP, LDH #### [facility] [address] [id number] [address] Alesia Meyers LDL CALC NORMAL SEE BELOW Normal [facility] Comment on above: Result Comment: <100 mg/dl OPTIMAL 100 - 129 mg/dl NEAR OR ABOVE OPTIMAL 130 - 159 mg/dl BORDERLINE HIGH 160 - 189 mg/dl HIGH >190 mg/dl VERY HIGH Performed By: #### T SH, CMP, LDH #### [facility] [address] [place] [address] Dr. Alesia Meyers Triglyceride [Mass/Vol] 101 mg/dL Normal <=150 [facility] Comment on above: Performed By: #### T SH, CMP, LDH #### [facility] [address] [place] [address] Dr. Alesia Meyers VLDL CALC 20.2 mg/dL Normal [facility] Comment on above: Performed By: #### T SH, CMP, LDH #### [facility] [address] [place] [address] Dr. Alesia Meyers LIVER PROFILEon 06-20-2022 Albumin [Mass/Vol] 3.5 g/dL Normal 3.4-5.0 [facility] Comment on above: Performed By: #### T SH, CMP, LDH #### [facility] [address] [place] [address] Dr. Alesia Meyers Albumin/Globulin [Mass ratio] 0.9 {ratio} Normal [facility] Comment on above: Performed By: #### T SH, CMP, LDH #### [facility] [address] [place] [address] Dr. Alesia Meyers ALP [Catalytic activity/Vol] 109 U/L Normal 46-116 [facility] Comment on above: Performed By: #### T SH, CMP, LDH #### [facility] [address] [place] [address] Dr. Alesia Meyers ALT [Catalytic activity/Vol] 39 U/L Normal 14-59 [facility] Comment on above: Performed By: #### T SH, CMP, LDH #### [facility] [address] [place] [address] Dr. Alesia Meyers AST [Catalytic activity/Vol] 34 U/L Normal 15-37 [facility] Comment on above: Performed By: #### T SH, CMP, LDH #### [facility] [address] [place] [address] Dr. Alesia Meyers BILI, CONJUGATED 0.1 mg/dL Normal 0.0-0.2 [facility] Comment on above: Performed By: #### T SH, CMP, LDH #### [facility] [address] [place] [address] Dr. Alesia Meyers Bilirubin [Mass/Vol] 0.4 mg/dL Normal 0.2-1.0 [facility] Comment on above: Performed By: #### T SH, CMP, LDH #### [facility] [address] [place] [address] Dr. Alesia Meyers Globulin (S) [Mass/Vol] 3.7 g/dL Normal [facility] Comment on above: Performed By: #### T SH, CMP, LDH #### [facility] [address] [place] [address] Dr. Alesia Meyers Protein [Mass/Vol] 7.2 g/dL Normal 6.4-8.2 [facility] Comment on above: Performed By: #### T SH, CMP, LDH #### [facility] [address] [place] [address] Dr. Alesia Meyers PROF CHEM 8 (BAS METB)on Anion gap [Moles/Vol] 11.4 mmol/L Normal [facility] Comment on above: Performed By: #### T SH, CMP, LDH #### [facility] [address] [place] [address] Dr. Alesia Meyers Calcium [Mass/Vol] 9.1 mg/dL Normal 8.5-10.1 [facility] Comment on above: Performed By: #### T SH, CMP, LDH #### [facility] [address] [place] [address] Dr. Alesia Meyers Chloride [Moles/Vol] 103 mmol/L Normal 98-107 [facility] Comment on above: Performed By: #### T SH, CMP, LDH #### [facility] [address] [place] [address] Dr. Alesia Meyers CO2 [Moles/Vol] 31.2 mmol/L Normal 21.0-32.0 [facility] Comment on above: Performed By: #### T SH, CMP, LDH #### [facility] [address] [address] [address] Alesia Meyers Creatinine [Mass/Vol] 0.90 mg/dL Normal 0.55-1.02 [facility] Comment on above: Performed By: #### T SH, CMP, LDH #### [facility] [address] [address] [address] Alesia Meyers EGFR-AF PALESTINIAN >60 Normal >=60 [facility] Comment on above: Performed By: #### T SH, CMP, LDH #### [facility] [address] [address] [address] Alesia Meyers EGFR-NON AF PALESTINIAN >60 Normal >=60 [facility] Comment on above: Performed By: #### T SH, CMP, LDH #### [facility] [address] [address] [address] Alesia Meyers Glucose [Mass/Vol] 105 mg/dL Normal 74-106 [facility] Comment on above: Performed By: #### T SH, CMP, LDH #### [facility] [address] [address] [address] Alesia Meyers Potassium [Moles/Vol] 3.6 mmol/L Normal 3.5-5.1 [facility] Comment on above: Performed By: #### T SH, CMP, LDH #### [facility] [address] [address] [address] Alesia Meyers Sodium [Moles/Vol] 142 mmol/L Normal 136-145 [facility] Comment on above: Performed By: #### T SH, CMP, LDH #### [facility] [address] [address] [address] Alesia Meyers Urea nitrogen [Mass/Vol] 22.0 mg/dL Critically high 7.0-18.0 [facility] Comment on above: Performed By: #### T SH, CMP, LDH #### [facility] [address] [address] [address] Alesia Meyers Urea nitrogen/Creatinine [Mass ratio] 24.4 mg/mg Normal [facility] Comment on above: Performed By: #### T SH, CMP, LDH #### [facility] [address] [place] [address] Dr. Alesia Meyers TSHon 06-20-2022 TSH 3.302 uIU/mL Normal 0.358-3.74 0 [facility] Comment on above: Performed By: #### T SH, CMP, LDH #### [facility] [address] [place] [address] Dr. Alesia Meyers ACTH, PLASMAon 05-31-2022 ACTH, Plasma 28.5 pg/mL Normal 7.2-63.3 [facility] Comment on above: Result Comment: ACTH reference interval for samples collected between 7 and 10 AM. Performed By: #### T SH, CMP, LDH #### [facility] [address] [place] [address] Dr. Alesia Meyers CORTISOLon 05-31-2022 Cortisol 17.2 ug/dL Normal [facility] Comment on above: Result Comment: Melvin isol AM 6.2 - 19.4 Cortisol PM 2.3 - 11.9 Performed By: #### T SH, CMP, LDH #### [facility] [address] [place] [address] Dr. Alesia Meyers CBC AUTO DIFFon 05-30-2022 BASO # 0.0 103/ul Normal 0.0-0.1 [facility] Comment on above: Performed By: #### T SH, CMP, LDH #### [facility] [address] [place] [address] Dr. Alesia Meyers Basophils/100 WBC (Bld) 0.4 % Normal 0.2-2.0 [facility] Comment on above: Performed By: #### T SH, CMP, LDH #### [facility] [address] [place] [address] Dr. Alesia Meyers EO # 0.1 103/ul Normal 0.0-0.7 [facility] Comment on above: Performed By: #### T SH, CMP, LDH #### [facility] [address] [place] [address] Dr. Alesia Meyers Eosinophils/100 WBC (Bld) 2.1 % Normal 0.9-7.0 [facility] Comment on above: Performed By: #### T SH, CMP, LDH #### [facility] [address] [place] [address] Dr. Alesia Meyers Erythrocyte distribution width (RBC) [Ratio] 12.9 % Normal 11.0-15.0 [facility] Comment on above: Performed By: #### T SH, CMP, LDH #### [facility] [address] [place] [address] Dr. Alesia Meyers Hematocrit (Bld) [Volume fraction] 41.0 % Normal 36.0-48.0 [facility] Comment on above: Performed By: #### T SH, CMP, LDH #### [facility] [address] [place] [address] Dr. Alesia Meyers Hemoglobin (Bld) [Mass/Vol] 13.5 g/dL Normal 12.0-16.0 [facility] Comment on above: Performed By: #### T SH, CMP, LDH #### [facility] [address] [place] [address] Dr. Alesia Meyers IG # 0.02 10e3/ul Normal 0.00-0.03 [facility] Comment on above: Performed By: #### T SH, CMP, LDH #### [facility] [address] [place] [address] Dr. Alesia Meyers IG % 0.3 % Normal 0.0-0.5 [facility] Comment on above: Performed By: #### T SH, CMP, LDH #### [facility] [address] [place] [address] Dr. Alesia Meyers LYMPH # 2.1 103/ul Normal 1.2-3.8 [facility] Comment on above: Performed By: #### T SH, CMP, LDH #### [facility] [address] [place] [address] Dr. Alesia Meyers Lymphocytes/100 WBC (Bld) 30.5 % Normal 20.5-60.0 [facility] Comment on above: Performed By: #### T SH, CMP, LDH #### [facility] [address] [address] [address] Alesia Meyers MANUAL DIFF REQ NO Normal [facility] Comment on above: Performed By: #### T SH, CMP, LDH #### [facility] [address] [place] [address] Dr. Alesia Meyers MCH (RBC) [Entitic mass] 28.6 pg Normal 26.7-34.0 [facility] Comment on above: Performed By: #### T SH, CMP, LDH #### [facility] [address] [place] [address] Dr. Alesia Meyers MCHC (RBC) [Mass/Vol] 32.9 g/dL Normal 29.9-35.2 [facility] Comment on above: Performed By: #### T SH, CMP, LDH #### [facility] [address] [place] [address] Dr. Alesia Meyers MCV (RBC) [Entitic vol] 86.9 fL Normal 81.0-99.0 [facility] Comment on above: Performed By: #### T SH, CMP, LDH #### [facility] [address] [place] [address] Dr. Alesia Meyers MONO # 0.5 103/ul Normal 0.3-0.8 [facility] Comment on above: Performed By: #### T SH, CMP, LDH #### [facility] [address] [place] [address] Dr. Alesia Meyers Monocytes/100 WBC (Bld) 7.8 % Normal 1.7-12.0 [facility] Comment on above: Performed By: #### T SH, CMP, LDH #### [facility] [address] [place] [address] Dr. Alesia Meyers NEUT # 4.0 103/ul Normal 1.4-6.5 [facility] Comment on above: Performed By: #### T SH, CMP, LDH #### [facility] [address] [place] [address] Dr. Alesia Meyers Neutrophils/100 WBC (Bld) 58.9 % Normal 43.0-75.0 [facility] Comment on above: Performed By: #### T SH, CMP, LDH #### [facility] [address] [place] [address] Dr. Alesia Meyers Platelet mean volume (Bld) [Entitic vol] 9.0 fL Critically low 9.5-13.5 [facility] Comment on above: Performed By: #### T SH, CMP, LDH #### [facility] [address] [place] [address] Dr. Alesia Meyers PLT 224 103/ul Normal 150-450 [facility] Comment on above: Performed By: #### T SH, CMP, LDH #### [facility] [address] [place] [address] Dr. Alesia Meyers RBC 4.72 106/ul Normal 4.20-5.40 [facility] Comment on above: Performed By: #### T SH, CMP, LDH #### [facility] [address] [place] [address] Dr. Alesia Meyers WBC 6.8 103/ul Normal 4.0-11.0 [facility] Comment on above: Performed By: #### T SH, CMP, LDH #### [facility] [address] [place] [address] Dr. Alesia Meyers FREE T4on 05-30-2022 Free T4 [Mass/Vol] 1.19 ng/dL Normal 0.76-1.46 [facility] Comment on above: Performed By: #### T SH, CMP, LDH #### [facility] [address] [place] [address] Dr. Alesia Meyers LDHon 05-30-2022 LDH 231 U/L Normal 81-234 [facility] Comment on above: Performed By: #### F T4 #### [facility] [address] [place] [address] Dr. Alesia Meyers LIPASEon 05-30-2022 Lipase [Catalytic activity/Vol] 76.0 U/L Normal 73.0-393.0 [facility] Comment on above: Performed By: #### F T4 #### [facility] [address] [place] [address] Dr. Alesia Meyers LIVER PROFILEon 05-30-2022 Albumin [Mass/Vol] 3.5 g/dL Normal 3.4-5.0 [facility] Comment on above: Performed By: #### F T4 #### [facility] [address] [place] [address] Dr. Alesia Meyers Albumin/Globulin [Mass ratio] 0.9 {ratio} Normal [facility] Comment on above: Performed By: #### F T4 #### [facility] [address] [place] [address] Dr. Alesia Meyers ALP [Catalytic activity/Vol] 128 U/L Critically high 46-116 [facility] Comment on above: Performed By: #### F T4 #### [facility] [address] [place] [address] Dr. Alesia Meyers ALT [Catalytic activity/Vol] 35 U/L Normal 14-59 [facility] Comment on above: Performed By: #### F T4 #### [facility] [address] [place] [address] Dr. Alesia Meyers AST [Catalytic activity/Vol] 25 U/L Normal 15-37 [facility] Comment on above: Performed By: #### F T4 #### [facility] [address] [place] [address] Dr. Alesia Meyers BILI, CONJUGATED 0.1 mg/dL Normal 0.0-0.2 [facility] Comment on above: Performed By: #### F T4 #### [facility] [address] [place] [address] Dr. Alesia Meyers Bilirubin [Mass/Vol] 0.4 mg/dL Normal 0.2-1.0 [facility] Comment on above: Performed By: #### F T4 #### [facility] [address] [place] [address] Dr. Alesia Meyers Globulin (S) [Mass/Vol] 3.7 g/dL Normal [facility] Comment on above: Performed By: #### F T4 #### [facility] [address] [place] [address] Dr. Alesia Meyers Protein [Mass/Vol] 7.2 g/dL Normal 6.4-8.2 [facility] Comment on above: Performed By: #### F T4 #### [facility] [address] [place] [address] Dr. Alesia Meyers PROF CHEM 8 (BAS METB)on Anion gap [Moles/Vol] 7.3 mmol/L Normal [facility] Comment on above: Performed By: #### F T4 #### [facility] [address] [place] [address] Dr. Alesia Meyers Calcium [Mass/Vol] 9.0 mg/dL Normal 8.5-10.1 [facility] Comment on above: Performed By: #### F T4 #### [facility] [address] [place] [address] Dr. Alesia Meyers Chloride [Moles/Vol] 102 mmol/L Normal 98-107 [facility] Comment on above: Performed By: #### F T4 #### [facility] [address] [place] [address] Dr. Alesia Meyers CO2 [Moles/Vol] 32.3 mmol/L Critically high 21.0-32.0 [facility] Comment on above: Performed By: #### F T4 #### [facility] [address] [place] [address] Dr. Alesia Meyers Creatinine [Mass/Vol] 0.94 mg/dL Normal 0.55-1.02 [facility] Comment on above: Performed By: #### F T4 #### [facility] [address] [place] [address] Dr. Alesia Meyers EGFR-AF PALESTINIAN >60 Normal >=60 [facility] Comment on above: Performed By: #### F T4 #### [facility] [address] [place] [address] Dr. Alesia Meyers EGFR-NON AF PALESTINIAN 58 mL/min/1.73m2 Critically low >=60 [facility] Comment on above: Performed By: #### F T4 #### [facility] [address] [place] [address] Dr. Alesia Meyers Glucose [Mass/Vol] 108 mg/dL Critically high 74-106 [facility] Comment on above: Performed By: #### F T4 #### [facility] [address] [place] [address] Dr. Alesia Meyers Potassium [Moles/Vol] 3.6 mmol/L Normal 3.5-5.1 [facility] Comment on above: Performed By: #### F T4 #### [facility] [address] [address] [address] Alesia Meyers Sodium [Moles/Vol] 138 mmol/L Normal 136-145 [facility] Comment on above: Performed By: #### F T4 #### [facility] [address] [place] [address] Dr. Alesia Meyers Urea nitrogen [Mass/Vol] 24.0 mg/dL Critically high 7.0-18.0 [facility] Comment on above: Performed By: #### F T4 #### [facility] [address] [place] [address] Dr. Alesia Meyers Urea nitrogen/Creatinine [Mass ratio] 25.5 mg/mg Normal [facility] Comment on above: Performed By: #### F T4 #### [facility] [address] [place] [address] Dr. Alesia Meyers TSHon 05-30-2022 TSH 2.605 uIU/mL Normal 0.358-3.74 0 [facility] Comment on above: Performed By: #### F T4 #### [facility] [address] [place] [address] Dr. Alesia Meyers ACTH, PLASMAon 05-14-2022 ACTH, Plasma 17.0 pg/mL Normal 7.2-63.3 [facility] Comment on above: Result Comment: ACTH reference interval for samples collected between 7 and 10 AM. Performed By: #### A CTHP #### [facility] [address] [place] [address] Dr. Alesia Meyers ACTH, PLASMAon 05-12-2022 ACTH, Plasma WRORD Normal [facility] Comment on above: Result Comment: Test not performed. The required specimen for the test ordered was not received. received refrigerate plasma edta contacted Sheyla at your facility on 05-12-2022 ACTH reference interval for samples collected between 7 and 10 AM. Performed By: #### F T4 #### [facility] [address] [place] [address] Dr. Alesia Meyers Albumin [Mass/volume] in Ser um or PlasmaOrdered By: Sly Benson on 05-12-2022 Albumin [Mass/Vol] 3.5 g/dL 3.2-5.5 [facility] Direct bilirubin measurement Ordered By: Sly Benson on 05-12-2022 Bilirubin.direct [Mass/Vol] mg/dL 0.0-0.4 [facility] Globulin Calc (S) [Mass/Vol] Ordered By: Sly Benson on 05-12-2022 Globulin (S) [Mass/Vol] 3.0 g/dL [facility] Laboratory - Chemistry and C hemistry - challengeOrdered By: Sly Benson on 05-12-2022 Lipase [Catalytic activity/Vol] 26.0 U/L 22-51 [facility] Lactate dehydrogenase measur ement (enzymatic activity/volume)Ordered By: Sly Benson on 05-12-2022 LDH (Unsp spec) [Catalytic activity/Vol] 199 U/L 45-190 [facility] No Panel InformationOrdered By: Sly Benson on 05-12-2022 Adrenocorticotropic Hormone 243.0 pg/mL 7.2-63.3 [facility] Comment on above: ACTH reference inter jamel for samples collected between 7 and10 AM.Performed at: [facility] [id number] Director: Coleman Lacy PhD, Phone: [phone] Protein [Mass/volume] in Ser um or PlasmaOrdered By: Sly Benson on 05-12-2022 Protein [Mass/Vol] 6.5 g/dL 6.1-7.9 [facility] Random cortisol measurementO rdered By: Sly Benson on 05-12-2022 Cortisol [Mass/Vol] 14.6 ug/dL [facility] Comment on above: Reference range: AM 6 - 24 ug/dl PM <10 ug/dl Serum or plasma alanine castro otransferase measurement without P-5'-P (enzymatic activiOrdered By: Sly Benson on 05-12-2022 ALT No additional P-5'-P [Catalytic activity/Vol] 31 U/L [facility] Serum or plasma albumin/glob ulin mass ratioOrdered By: Sly Benson on 05-12-2022 Albumin/Globulin [Mass ratio] 1.2 {ratio} [facility] Serum or plasma alkaline halle sphatase measurement (enzymatic activity/volume)Ordered By: Sly Benson on 05-12-2022 ALP [Catalytic activity/Vol] 112 U/L [facility] Serum or plasma aspartate am inotransferase measurement (enzymatic activity/volume)Ordered By: Sly Benson on 05-12-2022 AST [Catalytic activity/Vol] 33 U/L [facility] Serum or plasma non-glucuron idated bilirubin measurement (mass/volume)Ordered By: Sly Benson on 05-12-2022 Bilirubin.indirect [Mass/Vol] TNP [facility] Comment on above: Test not performed Serum or plasma total biliru bin measurement (mass/volume)Ordered By: Sly Benson on 05-12-2022 Bilirubin [Mass/Vol] 0.8 mg/dL 0.3-1.2 [facility] Thyroxine (T4) free [Mass/vo lume] in Serum or PlasmaOrdered By: Sly Benson on 05-12-2022 Free T4 [Mass/Vol] 1.17 ng/dL 0.61-1.12 [facility] CORTISOLon 05-11-2022 Cortisol 15.4 ug/dL Normal [facility] Comment on above: Result Comment: Melvin isol AM 6.2 - 19.4 Cortisol PM 2.3 - 11.9 Performed By: #### T SH, CMP, LDH #### [facility] [address] [address] [address] Alesia Meyers CBC AUTO DIFFon 05-10-2022 BASO # 0.0 103/ul Normal 0.0-0.1 [facility] Comment on above: Performed By: #### C BC #### [facility] [address] [address] [address] Alesia Meyers Basophils/100 WBC (Bld) 0.3 % Normal 0.2-2.0 [facility] Comment on above: Performed By: #### C BC #### [facility] [address] [address] [address] Alesia Meyers EO # 0.2 103/ul Normal 0.0-0.7 [facility] Comment on above: Performed By: #### C BC #### [facility] [address] [place] [address] Dr. Alesia Meyers Eosinophils/100 WBC (Bld) 2.5 % Normal 0.9-7.0 [facility] Comment on above: Performed By: #### C BC #### [facility] [address] [place] [address] Dr. Alesia Meyers Erythrocyte distribution width (RBC) [Ratio] 13.2 % Normal 11.0-15.0 [facility] Comment on above: Performed By: #### C BC #### [facility] [address] [place] [address] Dr. Alesia Meyers Hematocrit (Bld) [Volume fraction] 39.1 % Normal 36.0-48.0 [facility] Comment on above: Performed By: #### C BC #### [facility] [address] [place] [address] Dr. Alesia Meyers Hemoglobin (Bld) [Mass/Vol] 12.9 g/dL Normal 12.0-16.0 [facility] Comment on above: Performed By: #### C BC #### [facility] [address] [place] [address] Dr. Alesia Meyers IG # 0.01 10e3/ul Normal 0.00-0.03 [facility] Comment on above: Performed By: #### C BC #### [facility] [address] [place] [address] Dr. Alesia Meyers IG % 0.2 % Normal 0.0-0.5 [facility] Comment on above: Performed By: #### C BC #### [facility] [address] [place] [address] Dr. Alesia Meyers LYMPH # 1.9 103/ul Normal 1.2-3.8 [facility] Comment on above: Performed By: #### C BC #### [facility] [address] [place] [address] Dr. Alesia Meyers Lymphocytes/100 WBC (Bld) 32.2 % Normal 20.5-60.0 [facility] Comment on above: Performed By: #### C BC #### [facility] [address] [place] [address] Dr. Alesia Meyers MANUAL DIFF REQ NO Normal [facility] Comment on above: Performed By: #### C BC #### [facility] [address] [place] [address] Dr. Alesia Meyers MCH (RBC) [Entitic mass] 29.0 pg Normal 26.7-34.0 [facility] Comment on above: Performed By: #### C BC #### [facility] [address] [place] [address] Dr. Alesia Meyers MCHC (RBC) [Mass/Vol] 33.0 g/dL Normal 29.9-35.2 [facility] Comment on above: Performed By: #### C BC #### [facility] [address] [place] [address] Dr. Alesia Meyers MCV (RBC) [Entitic vol] 87.9 fL Normal 81.0-99.0 [facility] Comment on above: Performed By: #### C BC #### [facility] [address] [place] [address] Dr. Alesia Meyers MONO # 0.5 103/ul Normal 0.3-0.8 [facility] Comment on above: Performed By: #### C BC #### [facility] [address] [place] [address] Dr. Alesia Meyers Monocytes/100 WBC (Bld) 8.5 % Normal 1.7-12.0 [facility] Comment on above: Performed By: #### C BC #### [facility] [address] [place] [address] Dr. Alesia Meyers NEUT # 3.3 103/ul Normal 1.4-6.5 [facility] Comment on above: Performed By: #### C BC #### [facility] [address] [place] [address] Dr. Alesia Meyers Neutrophils/100 WBC (Bld) 56.3 % Normal 43.0-75.0 [facility] Comment on above: Performed By: #### C BC #### [facility] [address] [place] [address] Dr. Alesia Meyers Platelet mean volume (Bld) [Entitic vol] 9.6 fL Normal 9.5-13.5 [facility] Comment on above: Performed By: #### C BC #### [facility] [address] [place] [address] Dr. Alesia Meyers PLT 210 103/ul Normal 150-450 [facility] Comment on above: Performed By: #### C BC #### [facility] [address] [place] [address] Dr. Alesia Meyers RBC 4.45 106/ul Normal 4.20-5.40 [facility] Comment on above: Performed By: #### C BC #### [facility] [address] [place] [address] Dr. Alesia Meyers WBC 5.9 103/ul Normal 4.0-11.0 [facility] Comment on above: Performed By: #### C BC #### [facility] [address] [place] [address] Dr. Alesia Meyers FREE T4on 05-10-2022 Free T4 [Mass/Vol] 1.19 ng/dL Normal 0.76-1.46 [facility] Comment on above: Performed By: #### F T4 #### [facility] [address] [place] [address] Dr. Alesia Meyers LDHon 05-10-2022 LDH 252 U/L Critically high 81-234 [facility] Comment on above: Performed By: #### T SH, CMP, LDH #### [facility] [address] [place] [address] Dr. Alesia Meyers LIPASEon 05-10-2022 Lipase [Catalytic activity/Vol] 70.0 U/L Critically low 73.0-393.0 [facility] Comment on above: Performed By: #### T SH, CMP, LDH #### [facility] [address] [place] [address] Dr. Alesia Meyers LIVER PROFILEon 05-10-2022 Albumin [Mass/Vol] 3.3 g/dL Critically low 3.4-5.0 [facility] Comment on above: Performed By: #### T SH, CMP, LDH #### [facility] [address] [place] [address] Dr. Alesia Meyers Albumin/Globulin [Mass ratio] 0.9 {ratio} Normal [facility] Comment on above: Performed By: #### T SH, CMP, LDH #### [facility] [address] [place] [address] Dr. Alesia Meyers ALP [Catalytic activity/Vol] 129 U/L Critically high 46-116 [facility] Comment on above: Performed By: #### T SH, CMP, LDH #### [facility] [address] [place] [address] Dr. Alesia Meyers ALT [Catalytic activity/Vol] 35 U/L Normal 14-59 [facility] Comment on above: Performed By: #### T SH, CMP, LDH #### [facility] [address] [place] [address] Dr. Alesia Meyers AST [Catalytic activity/Vol] 36 U/L Normal 15-37 [facility] Comment on above: Performed By: #### T SH, CMP, LDH #### [facility] [address] [place] [address] Dr. Alesia Meyers BILI, CONJUGATED 0.1 mg/dL Normal 0.0-0.2 [facility] Comment on above: Performed By: #### T SH, CMP, LDH #### [facility] [address] [place] [address] Dr. Alesia Meyers Bilirubin [Mass/Vol] 0.4 mg/dL Normal 0.2-1.0 [facility] Comment on above: Performed By: #### T SH, CMP, LDH #### [facility] [address] [place] [address] Dr. Alesia Meyers Globulin (S) [Mass/Vol] 3.7 g/dL Normal [facility] Comment on above: Performed By: #### T SH, CMP, LDH #### [facility] [address] [place] [address] Dr. Alesia Meyers Protein [Mass/Vol] 7.0 g/dL Normal 6.4-8.2 [facility] Comment on above: Performed By: #### T SH, CMP, LDH #### [facility] [address] [place] [address] Dr. Alesia Meyers PROF CHEM 8 (BAS METB)on Anion gap [Moles/Vol] 11.7 mmol/L Normal [facility] Comment on above: Performed By: #### T SH, CMP, LDH #### [facility] [address] [place] [address] Dr. Alesia Meyers Calcium [Mass/Vol] 8.9 mg/dL Normal 8.5-10.1 [facility] Comment on above: Performed By: #### T SH, CMP, LDH #### [facility] [address] [place] [address] Dr. Alesia Meyers Chloride [Moles/Vol] 104 mmol/L Normal 98-107 [facility] Comment on above: Performed By: #### T SH, CMP, LDH #### [facility] [address] [place] [address] Dr. Alesia Meyers CO2 [Moles/Vol] 29.3 mmol/L Normal 21.0-32.0 [facility] Comment on above: Performed By: #### T SH, CMP, LDH #### [facility] [address] [place] [address] Dr. Alesia Meyers Creatinine [Mass/Vol] 0.84 mg/dL Normal 0.55-1.02 [facility] Comment on above: Performed By: #### T SH, CMP, LDH #### [facility] [address] [address] [address] Alesia Meyers EGFR-AF PALESTINIAN >60 Normal >=60 [facility] Comment on above: Performed By: #### T SH, CMP, LDH #### [facility] [address] [address] [address] Alesia Meyers EGFR-NON AF PALESTINIAN >60 Normal >=60 [facility] Comment on above: Performed By: #### T SH, CMP, LDH #### [facility] [address] [address] [address] Alesia Meyers Glucose [Mass/Vol] 109 mg/dL Critically high 74-106 [facility] Comment on above: Performed By: #### T SH, CMP, LDH #### [facility] [address] [address] [address] Alesia Meyers Potassium [Moles/Vol] 4.0 mmol/L Normal 3.5-5.1 [facility] Comment on above: Performed By: #### T SH, CMP, LDH #### [facility] [address] [address] [address] Alesia Meyers Sodium [Moles/Vol] 141 mmol/L Normal 136-145 [facility] Comment on above: Performed By: #### T SH, CMP, LDH #### [facility] [address] [address] [address] Alesia Meyers Urea nitrogen [Mass/Vol] 19.0 mg/dL Critically high 7.0-18.0 [facility] Comment on above: Performed By: #### T SH, CMP, LDH #### [facility] [address] [address] [address] Alesia Meyers Urea nitrogen/Creatinine [Mass ratio] 22.6 mg/mg Normal [facility] Comment on above: Performed By: #### T SH, CMP, LDH #### [facility] [address] [address] [address] Alesia Meyers TSHon 05-10-2022 TSH 3.114 uIU/mL Normal 0.358-3.74 0 [facility] Comment on above: Performed By: #### T SH, CMP, LDH #### [facility] [address] [address] [address] Alesia Meyers Activated partial thrombopla stin time (aPTT) in platelet poor plasma by coagulation aOrdered By: Sly Benson on 04-28-2022 aPTT Coag (PPP) [Time] 28.1 s 25.1-36.5 [facility] Albumin [Mass/volume] in Ser um or PlasmaOrdered By: Sly Benson on 04-28-2022 Albumin [Mass/Vol] 3.5 g/dL 3.2-5.5 [facility] Basophils Auto (Bld) [#/Vol] Ordered By: Sly Bneson on 04-28-2022 Basophils (Bld) [#/Vol] 0.0 10*3/uL 0.0-0.2 [facility] Basophils/100 WBC Auto (Bld) Ordered By: Sly Benson on 04-28-2022 Basophils/100 WBC (Bld) 0.5 % . [facility] Creatinine and Glomerular fi ltration rate.predicted panel (S/P/Bld)Ordered By: Sly Benson on 04-28-2022 Creatinine [Mass/Vol] 0.84 mg/dL 0.44-1.03 [facility] Eosinophils Auto (Bld) [#/Vo l]Ordered By: Sly Benson on 04-28-2022 Eosinophils (Bld) [#/Vol] 0.1 10*3/uL 0.0-0.45 [facility] Eosinophils/100 WBC Auto (Bl d)Ordered By: Sly Benson on 04-28-2022 Eosinophils/100 WBC (Bld) 1.1 % . [facility] Erythrocyte distribution wid th Auto (RBC) [Ratio]Ordered By: Sly Benson on 04-28-2022 Erythrocyte distribution width (RBC) [Ratio] 14.1 % 11.9-15.3 [facility] Erythrocyte sedimentation ra te by Photometric methodOrdered By: Sly Benson on 04-28-2022 ESR Photometric method (Bld) [Velocity] 31 mm/hr 0-29 [facility] Estimated glomerular filtrat ion rate (GFR) non- AmericanOrdered By: Sly Benson on 04-28-2022 GFR/1.73 sq M.predicted among non-blacks MDRD (S/P/Bld) [Vol rate/Area] > 60 mL/Min [facility] Globulin Calc (S) [Mass/Vol] Ordered By: Sly Benson on 04-28-2022 Globulin (S) [Mass/Vol] 2.9 g/dL [facility] Hematocrit Auto (Bld) [Volum e fraction]Ordered By: Sly Benson on 04-28-2022 Hematocrit (Bld) [Volume fraction] 40.5 % 34.0-46.4 [facility] Hemoglobin [Mass/volume] in BloodOrdered By: Sly Benson on 04-28-2022 Hemoglobin (Bld) [Mass/Vol] 13.6 g/dL 11.8-15.4 [facility] - CoagulationOrde red By: Sly Benson on 04-28-2022 PT Coag (PPP) [Time] 10.6 s 9.0-12.9 [facility] - Hematology and Cell countsOrdered By: Sly Benson on 04-28-2022 Nucleated RBC/100 WBC (Bld) [Ratio] 0.1 % 0-0.5 [facility] Leukocytes [#/volume] in Blo od by Automated countOrdered By: Sly Benson on 04-28-2022 WBC (Bld) [#/Vol] 6.9 10*3/uL 4.5-11.0 [facility] Lymphocytes Auto (Bld) [#/Vo l]Ordered By: Sly Benson on 04-28-2022 Lymphocytes (Bld) [#/Vol] 2.0 10*3/uL 1.00-4.8 [facility] Lymphocytes/100 WBC Auto (Bl d)Ordered By: Sly Benson on 04-28-2022 Lymphocytes/100 WBC (Bld) 28.3 % . [facility] MCH Auto (RBC) [Entitic mass ]Ordered By: Sly Benson on 04-28-2022 MCH (RBC) [Entitic mass] 29.4 pg 24.7-34.3 [facility] MCHC Auto (RBC) [Mass/Vol]Or dered By: Sly Benson on 04-28-2022 MCHC (RBC) [Mass/Vol] 33.6 g/dL 32.0-35.0 [facility] MCV Auto (RBC) [Entitic vol] Ordered By: Sly Benson on 04-28-2022 MCV (RBC) [Entitic vol] 87.5 fL 80-100 [facility] Monocytes Auto (Bld) [#/Vol] Ordered By: Sly Benson on 04-28-2022 Monocytes (Bld) [#/Vol] 0.6 10*3/uL 0.0-0.8 [facility] Monocytes/100 WBC Auto (Bld) Ordered By: Sly Benson on 04-28-2022 Monocytes/100 WBC (Bld) 8.5 % . [facility] Neutrophils Auto (Bld) [#/Vo l]Ordered By: Sly Benson on 04-28-2022 Neutrophils (Bld) [#/Vol] 4.2 10*3/uL 1.8-7.7 [facility] Neutrophils/100 WBC Auto (Bl d)Ordered By: Sly Benson on 04-28-2022 Neutrophils/100 WBC (Bld) 61.6 % . [facility] No Panel InformationOrdered By: Sly Benson on 04-28-2022 Anti-Nuclear Antibody Comment 2 See comment . [facility] Comment on above: For more information about Hep-2 cell patterns useANApatterns.org, the official website for the InternationalConsensus on Antinuclear Antibody (BARRETT) Patterns (ICAP). ----A positive BARRETT result may occur in healthy individuals (lowtiter) or be associated with a variety of diseases. Seeinterpretation chart which is not all inclusive:Pattern Antigen Detected Suggested Disease Association Homogeneous DNA(ds,ss), SLE - High titers Nucleosomes, Histones Drug-induced SLE Speckled Sm, CABLE INSTALLATION TECHNICIAN, SCL-70, SLE,MCTD,PSS (diffuse form), SS-A/SS-B Sjogrens Nucleolar SCL-70, PM-1/SCL High titers Scleroderma, PM/DM Centromere Centromere PSS (limited form) w/Crest syndrome variable Nuclear Dot [id number] Primary Biliary Cirrhosis Nuclear GP210, Primary Biliary CirrhosisMembrane fish A,B,C Performed at: [facility] [id number] [place], [place] [id number] Director: Coleman Lacy PhD, Phone: [phone] Estimated GFR () > 60 mL/Min [facility] Comment on above: GFR estimated refere nce range: According to KDOQI guidelines, <60 ml/min/1.73m2 is sufficient to diagnose a patient with chronic kidney disease. Pharmacy Creatinine Clearance (Chem 60.78 [facility] Platelet mean volume Auto (B ld) [Entitic vol]Ordered By: Sly Benson on 04-28-2022 Platelet mean volume (Bld) [Entitic vol] 7.6 fL 6.3-10.7 [facility] Platelet poor plasma interna tional normalized ratio (INR) by coagulation assay (relatOrdered By: Sly Benson on 04-28-2022 INR Coag (PPP) [Relative time] 0.9 {INR} [facility] Comment on above: INR Therapeutic Rang e A) Pre- and Peroperative OAT started two weeks before surgery. NOT HIP SURGERY: 1.5 - 2.5 HIP SURGERY: 2 - 3B) Primary and secondary prevention of venous THROMBOSIS: 2 - 3C) Active venous thrombosis, pulmonary embolismand prevention of recurrent venous thrombosis: 2 - 3D) Prevention of arterial thromboembolismincluding patients with mechanical heart valves: 3 - 4.5 Platelets Auto (Bld) [#/Vol] Ordered By: Sly Benson on 04-28-2022 Platelets (Bld) [#/Vol] 204 10*3/uL 150-450 [facility] Protein [Mass/volume] in Ser um or PlasmaOrdered By: Sly Benson on 04-28-2022 Protein [Mass/Vol] 6.4 g/dL 6.1-7.9 [facility] RBC Auto (Bld) [#/Vol]Ordere d By: Sly Benson on 04-28-2022 RBC (Bld) [#/Vol] 4.63 10*6/uL 3.60-5.00 [facility] Serum nuclear antibody titer Ordered By: Sly Benson on 04-28-2022 Nuclear Ab (S) [Titer] Positive . [facility] Comment on above: Negative <1:80 Borde rline 1:80 Positive >1:80 Serum or plasma alanine castro otransferase measurement without P-5'-P (enzymatic activiOrdered By: Sly Benson on 04-28-2022 ALT No additional P-5'-P [Catalytic activity/Vol] 34 U/L 10-60 [facility] Serum or plasma albumin/glob ulin mass ratioOrdered By: Sly Benson on 04-28-2022 Albumin/Globulin [Mass ratio] 1.2 {ratio} [facility] Serum or plasma alkaline halle sphatase measurement (enzymatic activity/volume)Ordered By: Sly Benson on 04-28-2022 ALP [Catalytic activity/Vol] 114 U/L 32-92 [facility] Serum or plasma anion gap de terminationOrdered By: Sly Benson on 04-28-2022 Anion gap [Moles/Vol] 11.9 mmol/L 6.0-15.0 [facility] Serum or plasma aspartate am inotransferase measurement (enzymatic activity/volume)Ordered By: Sly Benson on 04-28-2022 AST [Catalytic activity/Vol] 38 U/L 10-42 [facility] Serum or plasma calcium diamond urement (mass/volume)Ordered By: Sly Benson on 04-28-2022 Calcium [Mass/Vol] 8.9 mg/dL 8.2-10.2 [facility] Serum or plasma chloride zora surement (moles/volume)Ordered By: Sly Benson on 04-28-2022 Chloride [Moles/Vol] 105 mmol/L 95-114 [facility] Serum or plasma glucose diamond urement (mass/volume)Ordered By: Sly Benson on 04-28-2022 Glucose [Mass/Vol] 110 mg/dL 70-100 [facility] Comment on above: ADA recommended refe rence rangeRandom Glucose Reference Range is dependent on time and content of last meal. Glucose of more than 200 mg/dL in a nonstressed, ambulatory subject supports the diagnosis of Diabetes Mellitus. Serum or plasma potassium me asurement (moles/volume)Ordered By: Sly Benson on 04-28-2022 Potassium [Moles/Vol] 3.5 mmol/L 3.5-5.1 [facility] Serum or plasma sodium measu rement (moles/volume)Ordered By: Sly Benson on 04-28-2022 Sodium [Moles/Vol] 140 mmol/L 136-146 [facility] Serum or plasma total biliru bin measurement (mass/volume)Ordered By: Sly Benson on 04-28-2022 Bilirubin [Mass/Vol] 0.9 mg/dL 0.3-1.2 [facility] Serum or plasma total carbon dioxide measurement (moles/volume)Ordered By: Sly Benson on 04-28-2022 CO2 [Moles/Vol] 26.6 mmol/L 22.0-30.0 [facility] Serum or plasma urea nitroge n measurement (mass/volume)Ordered By: Sly Benson on 04-28-2022 Urea nitrogen [Mass/Vol] 16 mg/dL - [facility] Serum speckled pattern antin uclear antibody (BARRETT) titerOrdered By: Sly Benson on 04-28-2022 Speckled nuclear Ab pattern (S) [Titer] 1:160 . [facility] Comment on above: ICAP nomenclature: A C-2,4,5,29 TSH DL <= 0.005 mIU/L QnOrde red By: Sly Benson on 04-28-2022 TSH Qn 3.18 m[IU]/L 0.45-5.33 [facility] Creatinine and Glomerular fi ltration rate.predicted panel (S/P/Bld)Ordered By: Alex Trammell on 03-26-2022 Creatinine [Mass/Vol] 0.87 mg/dL 0.44-1.03 [facility] Estimated glomerular filtrat ion rate (GFR) non- AmericanOrdered By: Alex Trammell on 03-26-2022 GFR/1.73 sq M.predicted among non-blacks MDRD (S/P/Bld) [Vol rate/Area] > 60 mL/Min [facility] No Panel InformationOrdered By: Alex Trammell on 03-26-2022 Estimated GFR () > 60 mL/Min [facility] Comment on above: GFR estimated refere nce range: According to KDOQI guidelines, <60 ml/min/1.73m2 is sufficient to diagnose a patient with chronic kidney disease. Pharmacy Creatinine Clearance (Chem N/A [facility] Serum or plasma urea nitroge n measurement (mass/volume)Ordered By: Alex Trammell on 03-26-2022 Urea nitrogen [Mass/Vol] 18 mg/dL 04-04 [facility] Creatinine and Glomerular fi ltration rate.predicted panel (S/P/Bld)Ordered By: Alex Trammell on 10-10-2021 Creatinine [Mass/Vol] 0.91 mg/dL 0.44-1.03 [facility] Estimated glomerular filtrat ion rate (GFR) non- AmericanOrdered By: Alex Trammell on 10-10-2021 GFR/1.73 sq M.predicted among non-blacks MDRD (S/P/Bld) [Vol rate/Area] 60 mL/Min [facility] No Panel InformationOrdered By: Alex Trammell on 10-10-2021 Estimated GFR () > 60 mL/Min [facility] Comment on above: GFR estimated refere nce range: According to KDOQI guidelines, <60 ml/min/1.73m2 is sufficient to diagnose a patient with chronic kidney disease. Pharmacy Creatinine Clearance (Chem N/A [facility] Serum or plasma urea nitroge n measurement (mass/volume)Ordered By: Alex Trammell on 10-10-2021 Urea nitrogen [Mass/Vol] 19 mg/dL 04-04 [facility] Dermatopathologyon Dermatopathology Name THERESA LUU Pathologist: SURAJ MELGAR MD Date of Procedure: 09/17/2021 Date Received: 09/18/2021 Date Reported 09/20/2021 Submitting Physician: ALEX TRAMMELL MD Location: [facility] Other External # FINAL DIAGNOSIS A. SKIN, SURGICAL SCAR, PUNCH BIOPSY: FIBROSIS AND HEMOSIDERIN, SEE NOTE. Note: Microscopic examination reveals a specimen that extends into the deep reticular dermis. There is fairly diffuse fibrosis and hemosiderin deposition. No melanoma is seen. Multiple step sections were performed. B. SKIN, ANTERIOR LOWER LEG LESION, PUNCH BIOPSY: LENTIGO, PRESENT ON THE PERIPHERAL MARGIN. Electronically Signed Out by SURAJ MELGAR M.D. Electronically Signed Out By SURAJ MELGAR MD/[facility] By the signature on this report, the individual or group listed as making the Final Interpretation/Diagnosis certifies that they have reviewed this case. Microscopic Description: B. There is lentiginous hyperplasia of the epidermis, with mild acanthosis and basal layer pigmentation. Multiple step sections were performed. Clinical History: Clinical Appearance (A): dark pigment Clinical Appearance (B): dark pigment Clinical Diagnosis (A): hx melanoma Clinical Diagnosis (B): hx melanoma Fixative (A): Routine Histopath (Formalin Fixed) Fixative (B): Routine Histopath (Formalin Fixed) Clinical Diagnosis History: Malignant melanoma of left lower leg - (C43.72) Specimens Submitted As: A: SKIN, SURGICAL SCAR B: SKIN, ANTERIOR LOWER LEG LESION Gross Description: A. Received in formalin is a coyne-brown, cylindrical piece of skin measuring 2 x 2 x 2 mm. Inked and embedded in toto. B. Received in formalin is a coyne-brown, cylindrical piece of skin measuring 2 x 2 x 2 mm. Inked and embedded in toto. mlz/09/18/2021 [facility] Dermatopathology Laboratory [place] [id number] [place] [address] Comment on above: Performed By: #### D #### Dermatopathology No Panel Informationon 09-17 [id number] [facility] Work Phone: Office Visit (Oncology Surge ry)on 09-17-2021 Follow-up visit Diagnoses/Problems Assessed Malignant melanoma of left lower leg (172.7) (C43.72) Patient Discussion/Summary Mrs. Luu is very nice 75-year-old female with a exophytic left distal lower leg melanoma. She has no palpable williams disease or evidence of metastatic disease at this point. I also cannot appreciate any in-transit disease on the current exam. The patient also is noted to have significant edema in the lower extremities. No evidence of cellulitis. PET/CT was negative for distant metastatic disease. Surgery 11/16/2020?wide excision of the primary melanoma with 2 cm margins, Integra skin substitute placement, left inguinal sentinel lymph node biopsy Pathology?residual tumor at the primary site with 9.5 mm Breslow depth remaining. 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 Margin is clear. Left inguinal lymph nodes x2 ? 0 of two involved This is the patient's first medical visit regarding her melanoma since January 2021. She has missed appointments with me and did not connect with the medical oncologist at [facility] who was planning to consider her for adjuvant therapy due to her in-transit disease. She also has not followed up with dermatology since the time of surgery. She has requested a new dermatology referral as a result. [ ] I will follow up her biopsy results from today to determine next steps. [ ] The patient will be referred to Serena Orozco in dermatology for total-body skin examinations and establishment of care. [ ] The patient will need surveillance imaging. This will be ordered after the results of the biopsy return. [ ] I will discussed the patient's case and multidisciplinary tumor board to help facilitate her care further. The patient understood these recommendations and asked very appropriate questions that were answered to the best of my ability with the current information at hand. Over 30 minutes of time was spent evaluating this patient's case with the majority of this time spent in direct examination and counseling of the patient. Chief Complaint Left distal lower anterior leg exophytic melanoma History of Present IllnessMsWilbert Luu is a 75-year-old female referred by Dr. Argelia Aguilar for evaluation and management of a left distal anterior lower leg melanoma. The patient reports that she thinks this lesion has been present for a couple months and that is grown quickly. This is an exophytic lesion that bleeds occasionally. The patient denies any trauma to the area and is not sure if it arose in a prior mole. The patient moved from [place] 8 years ago and has not established consistent care. She is recently began seeing Dr. Yoni Muller for her primary physician, and was referred to Dr. Aguilar for evaluation of this tumor. 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 The pathologic description suggested that there was a lack of significant epidermal attachment raising the possibility of a metastatic or recurrent melanoma. PET/CT was negative for distant metastatic disease. Surgery 11/16/2020?wide excision of the primary melanoma with 2 cm margins, Integra skin substitute placement, left inguinal sentinel lymph node biopsy Pathology?residual tumor at the primary site with 9.5 mm Breslow depth remaining. 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 Margin is clear. Left inguinal lymph nodes x2 ? 0/2 LN involved 09/17/2021?follow-up. The patient returns after canceling multiple appointments. She reports that she has not seen her accounts payable specialist since prior to the cancer treatment. As such she has not had her basal cell carcinoma on her back formally treated. Additionally, she did not follow-up with medical oncology. This lost to follow-up means that no surveillance is occurred until this point ROS: The patient has moderate performance status and is active daily. Cardiac: No chest pain, palpitations or heart attacks Pulmonary: No asthma, bronchitis, or COPD HEENT: No sinus or dental issues. GI: No constipation, diarrhea, or bloody bowel movements : Postmenopausal, no urinary complaints Musculoskeletal: No limitations to ROM or strength Skin: Left lower leg wound has healed well. no bleeding Heme: No bleeding or thrombosis issues Lymph: Inguinal incision healed. No swelling Psych: No reported anxiety or depression All other systems reviewed and negative Physical exam: General: No acute distress. Healthy appearing HEENT: Moist oral mucosa, normocephalic CV: RRR, Vitals reviewed Pulmonary: No respiratory distress. No use of accessory muscles. No audible wheeze Lymphatics: The left groin incisiion is well healed without lymphadenopathy. No popliteal LAD either Skin: Left lower leg surgical wound healed by secondary intention. Dark linear scar vs nodule present at the central aspect of the wound. Additional satellite lesion that is pigmented and below the epidermis lateral to the wound. Extremities: Bilateral lower extremity swelling fro (more content not included)... Normal [facility] COMPREHENSIVE METABOLIC PANE Walter 05-04-2021 Albumin [Mass/Vol] 4.1 g/dL Normal 3.6-5.1 [facility] Comment on above: Performed By: #### 7 600, [id number] #### [facility] [place] [id number] [facility], [address] [place] [address] [employer] Vegetable: Chadwick Suárez MD Albumin/Globulin [Mass ratio] 1.4 {ratio} Normal 1.0-2.5 [facility] Comment on above: Performed By: #### 7 600, [id number] #### [facility] of [address], [address] [place] [address] Farmer Vegetable: Chadwick Suárez MD ALP [Catalytic activity/Vol] 121 U/L Normal 37-153 [facility] Comment on above: Performed By: #### 7 600, [id number] #### [facility] of [address], [address] [place] [address] Farmer Vegetable: Chadwick Suárez MD ALT [Catalytic activity/Vol] 18 U/L Normal 6-29 [facility] Comment on above: Performed By: #### 7 600, [id number] #### [facility] of [place] [address] [employer]: Chadwick Suárez MD AST [Catalytic activity/Vol] 19 U/L Normal 10-35 [facility] Comment on above: Performed By: #### 7 600, [id number] #### [facility] of [address], [address] [place] [address] Farmer Vegetable: Chadwick Suárez MD Bilirubin [Mass/Vol] 0.5 mg/dL Normal 0.2-1.2 [facility] Comment on above: Performed By: #### 7 600, 76100 #### [facility] of [address], [address] [place] [address] Farmer Vegetable: Chadwick Suárez MD BUN/CREATININE RATIO NOT APPLICABLE Normal 6-22 [facility] Comment on above: Performed By: #### 7 600, [id number] #### [facility] of [address], [address] [place] [address] Farmer Vegetable: Chadwick Suárez MD Calcium [Mass/Vol] 9.4 mg/dL Normal 8.6-10.4 [facility] Comment on above: Performed By: #### 7 600, [id number] #### [facility] of [address], [address] [place] [address] Farmer Veget[employer]: Chadwick Suárez MD Chloride [Moles/Vol] 106 mmol/L Normal 98-110 [facility] Comment on above: Performed By: #### 7 600, [id number] #### [facility] [place] [address] [employer]: Chadwick Suárez MD CO2 [Moles/Vol] 31 mmol/L Normal 20-32 [facility] Comment on above: Performed By: #### 7 600, 14813 #### [facility] [place] [address] [employer]: Chadwick Suárez MD Creatinine [Mass/Vol] 0.78 mg/dL Normal 0.60-0.[address] [facility] Comment on above: Result Comment: For patients >49 years of age, the reference limit for Creatinine is approximately 13% higher for people identified as -[place] Islander. Performed By: #### 7 600, 09787 #### [facility] [address], [address] [place] [address] Farmer Vegetable: Chadwick Suárez MD eGFR NON-AFR. PALESTINIAN 75 mL/min/1.73m2 Normal > OR = 60 [facility] Comment on above: Performed By: #### 7 600, 28077 #### [facility] [place] [address] [employer]: Chadwick Suárez MD GFR/1.73 sq M.predicted among blacks MDRD (S/P/Bld) [Vol rate/Area] 87 mL/min/{1.73_m2} Normal > OR = 60 [facility] Comment on above: Performed By: #### 7 600, 42960 #### [facility] [place] [address] [employer]: Chadwick Suárez MD Globulin (S) [Mass/Vol] 2.9 g/dL Normal 1.9-3.7 [facility] Comment on above: Performed By: #### 7 600, 59323 #### [facility] [place] [address]220 [employer]: Chadwick Suárez MD Glucose [Mass/Vol] 105 mg/dL High 65-99 [facility] Comment on above: Result Comment: Fasting reference interval For someone without known diabetes, a glucose value between 100 and 125 mg/dL is consistent with prediabetes and should be confirmed with a follow-up test. Performed By: #### 7 600, 34686 #### [facility] [place] [address] [employer]: Chadwick Suárez MD Potassium [Moles/Vol] 4.9 mmol/L Normal 3.5-5.[address] [facility] Comment on above: Performed By: #### 7 600, 88724 #### [facility] [place] [address] Farmer [employer]: Chadwick Suárez MD Protein [Mass/Vol] 7.0 g/dL Normal 6.1-8.1 [facility] Comment on above: Performed By: #### 7 600, 29375 #### [facility] [place] [address] [employer]: Chadwick Suárez MD Sodium [Moles/Vol] 143 mmol/L Normal 135-146 [facility] Comment on above: Performed By: #### 7 600, 14311 #### [facility] [place] [address] [employer]: Chadwick Suárez MD Urea nitrogen [Mass/Vol] 18 mg/dL Normal 7-25 [facility] Comment on above: Performed By: #### 7 600, 68903 #### [facility] [place] [address] Farmer Veget[employer]: Chadwick Suárez MD LIPID PANEL, [facility] 10-2 Cholesterol [Mass/Vol] 235 mg/dL High <200 [facility] Comment on above: Order Comment: FASTI NG:YES AN UPDATE OR CORRECTION HAS BEEN MADE TO NAME FASTING: YES Performed By: #### 7 600, 14422 #### [facility] [address] [place] [address] Farmer Vegetable: Chadwick Suárez MD Cholesterol in HDL [Mass/Vol] 83 mg/dL Normal > OR = 50 [facility] Comment on above: Order Comment: FASTI NG:YES AN UPDATE OR CORRECTION HAS BEEN MADE TO NAME FASTING: YES Performed By: #### 7 600, 40609 #### [facility] [address], [address] [place] [address] Farmer Vegetable: Chadwick Suárez MD Cholesterol in LDL [Mass/Vol] 127 mg/dL High [facility] Comment on above: Order Comment: FASTI NG:YES AN UPDATE OR CORRECTION HAS BEEN MADE TO NAME FASTING: YES Result Comment: Refe rence range: <100 Desirable range <100 mg/dL for primary prevention; <70 mg/dL for patients with CHD or diabetic patients with > or = 2 CHD risk factors. LDL-C is now calculated using the Darlene calculation, which is a validated novel method providing better accuracy than the Friedewald equation in the estimation of LDL-C. Enrique BOUDREAUX et al. ROCCO. 2013;310(19): 6404-2497 (http://education.[employer]/faq/XOZ176) Performed By: #### 7 600, 95238 #### [facility] [address], [address] [place] [address] Farmer Vegetable: Chadwick Suárez MD Cholesterol.total/Chol esterol in HDL [Mass ratio] 2.8 {ratio} Normal <5.0 [facility] Comment on above: Order Comment: FASTI NG:YES AN UPDATE OR CORRECTION HAS BEEN MADE TO NAME FASTING: YES Performed By: #### 7 600, 53217 #### [facility] [address], [address] [place] [address] Farmer Vegetable: Chadwick Suárez MD NON HDL CHOLESTEROL 152 mg/dL (calc) High <130 [facility] Comment on above: Order Comment: FASTI NG:YES AN UPDATE OR CORRECTION HAS BEEN MADE TO NAME FASTING: YES Result Comment: For patients with diabetes plus 1 major ASCVD risk factor, treating to a non-HDL-C goal of <100 mg/dL (LDL-C of <70 mg/dL) is considered a therapeutic option. Performed By: #### 7 600, 66342 #### [facility] [address], [address] [place] [address] Farmer Vegetable: Chadwick Suárez MD Triglyceride [Mass/Vol] 132 mg/dL Normal <150 [facility] Comment on above: Order Comment: FASTI NG:YES AN UPDATE OR CORRECTION HAS BEEN MADE TO NAME FASTING: YES Performed By: #### 7 600, 42077 #### [facility] [address], [address] [place] [address] Farmer Vegetable: Chadwick Suárez MD Office Visit (Oncology Surge ry)on 01-22-2021 Follow-up visit Diagnoses/Problems Assessed Surgical wound present (879.8) (T14.8XXA) Seroma, infected, postoperative (998.51) Patient Discussion/Summary Mrs. Luu is very nice 75-year-old female with a exophytic left distal lower leg melanoma. She has no palpable williams disease or evidence of metastatic disease at this point. I also cannot appreciate any in-transit disease on the current exam. The patient also is noted to have significant edema in the lower extremities. No evidence of cellulitis. PET/CT was negative for distant metastatic disease. Surgery 11/16/2020?wide excision of the primary melanoma with 2 cm margins, Integra skin substitute placement, left inguinal sentinel lymph node biopsy Pathology?residual tumor at the primary site with 9.5 mm Breslow depth remaining. 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 Margin is clear. Left inguinal lymph nodes x2 ? 0 of two involved The patient developed an infected seroma in the left groin that drained. She believes that her VAC tubing rubbed on the incision and may have open this. The wound is being packed by home care and appears healthy and is rosa at this time. There is no residual infection. The lower leg wound is healing well and I have placed a Vaseline gauze at this time which will be changed daily. She can stop using her VAC. [ ] The patient was referred to Dr. Francisca Rose at [facility] for medical oncology consultation for her in-transit disease. [ ] I will continue to follow with 4-month ultrasound surveillance with ultrasounds. [ ] The patient will tentatively be scheduled for follow-up in 1 month for wound check. If she is doing well this appointment can be canceled and she will be seen at her 4-month interval [ ] The patient knows that she needs to continue to follow with Dr. Aguilar for total-body skin examinations. The patient understood these recommendations and asked very appropriate questions that were answered to the best of my ability with the current information at hand. Over 30 minutes of time was spent evaluating this patient's wound and performing a VAC change as well as discussing ongoing care. Chief Complaint Attention to surgical wound and Integra graft s/p excision of Left distal lower anterior leg exophytic melanoma History of Present IllnessMsWilbert Luu is a 75-year-old female referred by Dr. Argelia Aguilar for evaluation and management of a left distal anterior lower leg melanoma. The patient reports that she thinks this lesion has been present for a couple months and that is grown quickly. This is an exophytic lesion that bleeds occasionally. The patient denies any trauma to the area and is not sure if it arose in a prior mole. The patient moved from [place] 8 years ago and has not established consistent care. She is recently began seeing Dr. Yoni Muller for her primary physician, and was referred to Dr. Aguilar for evaluation of this tumor. 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 The pathologic description suggested that there was a lack of significant epidermal attachment raising the possibility of a metastatic or recurrent melanoma. PET/CT was negative for distant metastatic disease. Surgery 11/16/2020?wide excision of the primary melanoma with 2 cm margins, Integra skin substitute placement, left inguinal sentinel lymph node biopsy Pathology?residual tumor at the primary site with 9.5 mm Breslow depth remaining. 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 Margin is clear. Left inguinal lymph nodes x2 ? 0/2 LN involved 01/22/2021?wound check. The patient developed a left inguinal seroma that became infected and began draining and has been managed with oral antibiotics and packing of her wound by home care. With this approach, the patient reports that her upper thigh has resolved its erythema and drainage and that her wound is getting smaller. Additionally she has been continuing the VAC dressings to her lower extremity. She is interested to stop this type of therapy ROS: The patient has moderate performance status and is active daily. Cardiac: No chest pain, palpitations or heart attacks Pulmonary: No asthma, bronchitis, or COPD HEENT: No sinus or dental issues. GI: No constipation, diarrhea, or bloody bowel movements : Postmenopausal, no urinary complaints Musculoskeletal: No limitations to ROM or strength Skin: Left lower leg VAC with suction. Heme: No bleeding or thrombosis issues Lymph: Open wound at the left groin, packed Psych: No reported anxiety or depression All other systems reviewed and negative Physical exam: General: No acute distress. Healthy appearing HEENT: Moist oral mucosa, normocephalic CV: RRR, Vitals reviewed Pulmonary: No respiratory distress. No use of accessory muscles. No audible wheeze Lymphatics: The left groin has a 1 x 1.5 cm x 1 cm cavity that has no expressible fluid and no evidence of exudate. The wound was packed with Nu Gauze to (more content not included)... Normal [facility] Office Visit (Oncology Surge ry)on 12-25-2020 Follow-up visit Diagnoses/Problems Assessed Surgical wound present (879.8) (T14.8XXA) Patient Discussion/Summary Mrs. Luu is very nice 75-year-old female with a exophytic left distal lower leg melanoma. She has no palpable williams disease or evidence of metastatic disease at this point. I also cannot appreciate any in-transit disease on the current exam. The patient also is noted to have significant edema in the lower extremities. No evidence of cellulitis. PET/CT was negative for distant metastatic disease. Surgery 11/16/2020?wide excision of the primary melanoma with 2 cm margins, Integra skin substitute placement, left inguinal sentinel lymph node biopsy Pathology?residual tumor at the primary site with 9.5 mm Breslow depth remaining. 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 Margin is clear. Left inguinal lymph nodes x2 ? 0 of two involved The patient's wound is granulating very well. She has been faithful to her VAC changes and has had a good result from this. We will continue with VAC changes 3 times a week with home care. I will plan to follow her up in 4 weeks for reevaluation of surgical wound. In the meantime the patient knows to call with any questions or concerns that arise in the interim. The patient will be referred to Dr. Francisca Rose at [facility] for medical oncology consultation. Her care will be discussed in multidisciplinary tumor board and at this time I will plan for 4-month ultrasound surveillance with ultrasounds. We will coordinate with Dr. Rose as to how and when these should occur. The patient knows that she needs to continue to follow with Dr. Aguilar for total-body skin examinations. The patient understood these recommendations and asked very appropriate questions that were answered to the best of my ability with the current information at hand. Over 30 minutes of time was spent evaluating this patient's wound and performing a VAC change as well as discussing ongoing care. Chief Complaint Attention to surgical wound and Integra graft s/p excision of Left distal lower anterior leg exophytic melanoma History of Present IllnessMsWilbert Luu is a 75-year-old female referred by Dr. Argelia Aguilar for evaluation and management of a left distal anterior lower leg melanoma. The patient reports that she thinks this lesion has been present for a couple months and that is grown quickly. This is an exophytic lesion that bleeds occasionally. The patient denies any trauma to the area and is not sure if it arose in a prior mole. The patient moved from [place] 8 years ago and has not established consistent care. She is recently began seeing Dr. Yoni Muller for her primary physician, and was referred to Dr. Aguilar for evaluation of this tumor. 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 The pathologic description suggested that there was a lack of significant epidermal attachment raising the possibility of a metastatic or recurrent melanoma. PET/CT was negative for distant metastatic disease. ] Surgery 11/16/2020?wide excision of the primary melanoma with 2 cm margins, Integra skin substitute placement, left inguinal sentinel lymph node biopsy Pathology?residual tumor at the primary site with 9.5 mm Breslow depth remaining. 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 Margin is clear. Left inguinal lymph nodes x2 ? 0/2 LN involved 12/25/2020?wound check. The patient presents after a course of antibiotics and continued wound VAC changes with home health. She is doing well. She is required lidocaine topically during her VAC changes to help with the pain related to the foam removal. She has had no fevers or chills. With the wound VAC in place she has minimal discomfort. ROS: The patient has moderate performance status and is active daily. Cardiac: No chest pain, palpitations or heart attacks Pulmonary: No asthma, bronchitis, or COPD HEENT: No sinus or dental issues. GI: No constipation, diarrhea, or bloody bowel movements : Postmenopausal, no urinary complaints Musculoskeletal: No limitations to ROM or strength Skin: Left lower leg VAC with suction. Heme: No bleeding or thrombosis issues Lymph: No swelling Psych: No reported anxiety or depression All other systems reviewed and negative Physical exam: General: No acute distress. Healthy appearing HEENT: Moist oral mucosa, normocephalic CV: RRR, Vitals reviewed Pulmonary: No respiratory distress. No use of accessory muscles. No audible wheeze Lymphatics: No seroma in the left groin Skin: Wound vac was taken down and the adaptic layer was easily removed from the underlying wound base. Minimal debridement of fibrinous exudate was performed. Otherwise there is beefy granulation noted. No evidence of cellulitis Neuro: No gross sensorimotor deficits Extremities: Bilateral lower extremity swelling from the knee to the foot. 2+ edema. Active Problems Problems Cellulitis (682.9) (L03.90) Disorder of (more content not included)... Normal [facility] Cult, Misc + smearon 021 Bacteria identified Cx Nom (Unsp spec) Abnormal [facility] Work Phone: MISCELLANEOUS CULT./SM.BACT. on 12-04-2020 MISCELLANEOUS CULT./SM.BACT. PATIENT: THERESA LUU LOCATION: [facility]#: [id number] : 47 AGE: SEX: F ORDERED BY: ALEX TRAMMELL SOURCE: SURGICAL WOUND COLLECTED: 12/04/20 16:00 ANTIBIOTICS AT [place].: RECEIVED : 12/05/20 00:08 SITE: cellulitis R E S U L T S GRAM STAIN FINAL 12/05/20 06:48 1+ GRANULOCYTES. 2+ MIXED BACTERIA MISCELLANEOUS CULT./SM.BACT. FINAL 12/07/20 16:20 1+ MIXED SKIN VIDHI ISOLATE1 : Pseudomonas aeruginosa 4+ Organism Ps aerug Antibiotic BP INTRP Aztreonam S Ceftazidime S Ciprofloxacin S Cefepime S Gentamicin S Levofloxacin S Piperc/Tazobact S Tobramycin S S=SUSCEPTIBLE I=INTERMEDIATE R=RESISTANT SDD=SUSCEPTIBLE DOSE DEPENDENT NS=NONSUSCEPTIBLE X=REPORTED IN ERROR Normal [facility] Comment on above: Performed By: #### M [facility] #### [facility] [address] [place] [address] Office Visit (Oncology Surge ry)on 12-04-2020 Follow-up visit Diagnoses/Problems Assessed Cellulitis (682.9) (L03.90) 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 Luu is very nice 75-year-old female with a exophytic left distal lower leg melanoma. She has no palpable williams disease or evidence of metastatic disease at this point. I also cannot appreciate any in-transit disease on the current exam. The patient also is noted to have significant edema in the lower extremities. No evidence of cellulitis. PET/CT was negative for distant metastatic disease. Surgery 11/16/2020?wide excision of the primary melanoma with 2 cm margins, Integra skin substitute placement, left inguinal sentinel lymph node biopsy Pathology?residual tumor at the primary site with 9.5 mm Breslow depth remaining. 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 Margin is clear. Left inguinal lymph nodes x2 ? 0 of two involved The patient was started on Ciprofloxacin for a presumed graft infection at the end of last week. Wound culture was taken and the silicone layer of the graft was removed today. The wound base was debrided. She has some tenderness of the wound bed but no significant surrounding erythema. The patients wound was cleansed with soap and water and then redressed with the VAC dressing. WOund VAC changes will continue every 2 days. The patient will be referred to Dr. Francisca Rose at [facility] for medical oncology consultation. Her care will be discussed in multidisciplinary tumor board and at this time I will plan for 4-month ultrasound surveillance with ultrasounds. We will coordinate with Dr. Rose as to how and when these should occur. The patient knows that she needs to continue to follow with Dr. Aguilar for total-body skin examinations. The patient understood these recommendations and asked very appropriate questions that were answered to the best of my ability with the current information at hand. She knows to call with any questions or concerns that arise in the interim Chief Complaint Attention to surgical wound and Integra graft s/p excision of Left distal lower anterior leg exophytic melanoma History of Present IllnessMsWilbert Luu is a 75-year-old female referred by Dr. Argelia Aguilar for evaluation and management of a left distal anterior lower leg melanoma. The patient reports that she thinks this lesion has been present for a couple months and that is grown quickly. This is an exophytic lesion that bleeds occasionally. The patient denies any trauma to the area and is not sure if it arose in a prior mole. The patient moved from [place] 8 years ago and has not established consistent care. She is recently began seeing Dr. Yoni Muller for her primary physician, and was referred to Dr. Aguilar for evaluation of this tumor. 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 The pathologic description suggested that there was a lack of significant epidermal attachment raising the possibility of a metastatic or recurrent melanoma. PET/CT was negative for distant metastatic disease. ] Surgery 11/16/2020?wide excision of the primary melanoma with 2 cm margins, Integra skin substitute placement, left inguinal sentinel lymph node biopsy Pathology?residual tumor at the primary site with 9.5 mm Breslow depth remaining. 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 Margin is clear. Left inguinal lymph nodes x2 ? 0/2 LN involved 12/06/2020?graft check. The patient has been seen by home care for vac changes. She was noted to have malodor to the wound a few days prior and was started on Ciprofloxacin as she was unable to present for evaluation. She denied fevers/chills, or pain at that tme. She reports that the odor decreased after initiating the antibiotics. ROS: The patient has moderate performance status and is active daily. Cardiac: No chest pain, palpitations or heart attacks Pulmonary: No asthma, bronchitis, or COPD HEENT: No sinus or dental issues. GI: No constipation, diarrhea, or bloody bowel movements : Postmenopausal, no urinary complaints Musculoskeletal: No limitations to ROM or strength Skin: Left lower leg VAC with suction. Some redness around the wound Heme: No bleeding or thrombosis issues Lymph: No swelling Psych: No reported anxiety or depression All other systems reviewed and negative Physical exam: General: No acute distress. Healthy appearing HEENT: Moist oral mucosa, normocephalic CV: RRR, Vitals reviewed Pulmonary: No respiratory distress. No use of accessory muscles. No audible wheeze Lymphatics: No seroma in the left groin Skin: Wound vac was taken down and the silicone layer was easily removed from the underlying integra graft. Underlying material was debrided and washed after taking a culture. The wound bed demonstrated some granulation of this. The s (more content not included)... Normal [employer] Office Visit (Oncology Surge ry)on 11-27-2020 Follow-up visit Diagnoses/Problems Assessed Malignant melanoma of left lower leg (172.7) (C43.72) Patient Discussion/Summary Mrs. Luu is very nice 75-year-old female with a exophytic left distal lower leg melanoma. She has no palpable williams disease or evidence of metastatic disease at this point. I also cannot appreciate any in-transit disease on the current exam. The patient also is noted to have significant edema in the lower extremities. No evidence of cellulitis. PET/CT was negative for distant metastatic disease. Surgery 11/16/2020?wide excision of the primary melanoma with 2 cm margins, Integra skin substitute placement, left inguinal sentinel lymph node biopsy Pathology?residual tumor at the primary site with 9.5 mm Breslow depth remaining. 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 Margin is clear. Left inguinal lymph nodes x2 ? 0 of two involved Wound VAC change tomorrow by home health care. The home health nurse will communicate to our office with pictures of the wound. I will follow up with the patient in 1 to 2 weeks depending on the appearance of the wound. The patient will be referred to Dr. Francisca Rose at [facility] for medical oncology consultation. Her care will be discussed in multidisciplinary tumor board and at this time I will plan for 4-month ultrasound surveillance with ultrasounds. We will coordinate with Dr. Rose as to how and when these should occur. The patient knows that she needs to continue to follow with Dr. Aguilar for total-body skin examinations. The patient understood these recommendations and asked very appropriate questions that were answered to the best of my ability with the current information at hand. She knows to call with any questions or concerns that arise in the interim Chief Complaint Left distal lower anterior leg exophytic melanoma History of Present IllnessMsWilbert Luu is a 75-year-old female referred by Dr. Argelia Aguilar for evaluation and management of a left distal anterior lower leg melanoma. The patient reports that she thinks this lesion has been present for a couple months and that is grown quickly. This is an exophytic lesion that bleeds occasionally. The patient denies any trauma to the area and is not sure if it arose in a prior mole. The patient moved from [place] 8 years ago and has not established consistent care. She is recently began seeing Dr. Yoni Muller for her primary physician, and was referred to Dr. Aguilar for evaluation of this tumor. 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 The pathologic description suggested that there was a lack of significant epidermal attachment raising the possibility of a metastatic or recurrent melanoma. PET/CT was negative for distant metastatic disease. ] Surgery 11/16/2020?wide excision of the primary melanoma with 2 cm margins, Integra skin substitute placement, left inguinal sentinel lymph node biopsy Pathology?residual tumor at the primary site with 9.5 mm Breslow depth remaining. 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 Margin is clear. Left inguinal lymph nodes x2 ? 0 of two involved 11/27/2020 - postop visit. The patient is doing okay in her recovery however her wound VAC has had significant drainage. This is been managed by VAC changes with home health care in the wound clinic. She does mention occasional pain in this area. The patient does not have any swelling in the left groin. The patient's wound VAC was changed yesterday and due to the discomfort with the VAC placement, the patient was asking that we allowed for VAC changes with home care so as not to increase the number of times the VAC placement needs to occur. ROS: The patient has good performance status and is active daily. Cardiac: No chest pain, palpitations or heart attacks Pulmonary: No asthma, bronchitis, or COPD HEENT: No sinus or dental issues. GI: No constipation, diarrhea, or bloody bowel movements : Postmenopausal, no urinary complaints Musculoskeletal: No limitations to ROM or strength Skin: Left lower leg VAC with suction. Some redness around the wound Heme: No bleeding or thrombosis issues Lymph: No swelling Psych: No reported anxiety or depression All other systems reviewed and negative Physical exam: General: No acute distress. Healthy appearing HEENT: Moist oral mucosa, normocephalic CV: RRR, Vitals reviewed Pulmonary: No respiratory distress. No use of accessory muscles. No audible wheeze Lymphatics: No seroma in the left groin Skin: Wound vac in place on the left lower leg. No significant tenderness to palpation. Some redness of the surrounding skin. The patient deferred wound vac removal due to the recent change the day prior. She will have the home health nurse send a picture at the nexxt VAC change. Neuro: No gross sensorimotor deficits Extremities: Bilateral lower extremity swelling from the knee to the foot. 2+ edema. Active Problems Problems Malignant jerson (more content not included)... Normal [facility] Dermatopathologyon 1 Dermatopathology [facility] Dermatopathology Laboratory [address] [place] [id number] DERMATOPATHOLOGY REPORT Name:THERESA LUU. Rec #. [id number] Location: [facility] Date of Procedure: 11/16/2020 Race: Date Received: 11/19/2020 /Sex: 1945 (Age: 75) / F Date Reported: 11/22/2020 Other: Submitting Physician:ALEX TRAMMELL MD FINAL DIAGNOSIS A. NODE, LEFT INGUINAL SENTINEL LYMPH NODE #1, BLUE COUNT [id number], BIOPSY: TWO SOX-10 POSITIVE CELLS, SEE NOTE. Note: Microscopic examination reveals an enlarged lymph node. There are focally two weakly stained SOX-10 positive cells next to each other. These are compared with the primary melanoma and are smaller and a benign lymph node is favored. B. NODE, LEFT INGUINAL NON SENTINEL NODE, BIOPSY: BENIGN LYMPH NODE. C. NODE, LEFT INGUINAL NON SENTINEL LYMPH NODE #2, 194, BIOPSY: BENIGN LYMPH NODE. D. SKIN, LEFT LOWER LEG MELANOMA, EXCISION: ULCERATED MALIGNANT MELANOMA, BRESLOW THICKNESS 9.5 MM, WITH AN INTRANSIT METASTASIS, INKED MARGINS FREE IN PLANES OF SECTIONS EXAMINED, SEE NOTE. Note: Microscopic examination reveals a specimen that extends into the subcutaneous fat. In slides D6, 8 though 17 there is an area of ulceration with nests of atypical melanocytes in the underlying superficial and deep dermis. In D19 there are atypical melanocytes away from the main tumor mass in the dermis with a surrounding lymphocytic infiltrate. Electronically Signed Out by SURAJ MELGAR M.D. One or more of the reagents used to perform assays on this specimen MAY have contained components considered to be analyte specific reagents (ASR's). ASR's have not been cleared or approved by the U.S. Food and Drug Administration. These assays were developed and their performance characteristics determined by the Department of Pathology at [facility]. The FDA does not require this test to go through premarket FDA review. This test is used for clinical purposes. It should not be regarded as investigational or for research. This laboratory is certified under the Clinical Laboratory Improvement Amendments (CLIA) as qualified to perform high complexity clinical laboratory testing. The assays were performed with appropriate positive and negative controls which stained appropriately. CANCER SUMMARY REPORT D. SKIN, LEFT LOWER LEG MELANOMA: SPECIMEN Procedure: Re-excision Genoa node(s) biopsy Specimen Laterality: Left TUMOR Tumor Site: Skin of lower limb and hip: Left lower leg Histologic Type: Nodular melanoma Maximum Tumor (Breslow) Thickness (Millimeters): 9.5 mm Macroscopic Satellite Nodule(s): Not identified Ulceration: Present Extent of Ulceration (Millimeters): 20 mm Anatomic (Oliverio) Level: IV (Melanoma invades reticular dermis) Mitotic Rate: 6 mitoses / mm2 Microsatellite(s): Present Lymphovascular Invasion: Not identified Neurotropism: Not identified Tumor-Infiltrating Lymphocytes: Present, nonbrisk Tumor Regression: Not identified MARGINS Peripheral Margins: Negative for invasive melanoma Distance of Invasive Melanoma from Closest Peripheral Margin (Millimeters): 20 mm Location: 4:00 - 5:00 Status of Melanoma in situ at Peripheral Margins: Negative for melanoma in situ Distance of Melanoma in situ from Closest Peripheral Margin (Millimeters): Cannot be determined: No melanoma in situ is present. Location: Not possible Deep Margin: Negative for invasive melanoma Distance of Invasive Melanoma from Deep Margin (Millimeters): 10 mm Status of Melanoma in situ at Deep Margin: Negative for melanoma in situ Distance of Melanoma in situ from Deep Margin (Millimeters): Cannot be determined: Not possible as no residual melanoma in situ is present. LYMPH NODES Regional Lymph Nodes: Uninvolved by tumor cells Total Number of Lymph Nodes Examined: 3 Number of Genoa Nodes Examined: 2 PATHOLOGIC STAGE CLASSIFICATION (pTNM, AJCC 8th Edition) Note: Reporting of pT, pN, and (when applicable) pM categories is based on information available to the pathologist at the time the report is issued. As per the AJCC (Chapter 1, 8th Ed.) it is the managing physician?s responsibility to establish the final pathologic stage based upon all pertinent information, including but potentially not limited to this pathology report. Primary Tumor (pT): pT4b Regional Lymph Nodes (pN): pNX ADDITIONAL FINDINGS Additional Findings: None ADDITIONAL TESTING MORTGAGE PROCESSOR BLOCKS: Normal Block: D1 - 5, 7, 18, 20 - 23 Tumor Block: D6, 8 - 17 Electronically Signed Out By SURAJ MELGAR MD/[facility] By the signature on this report, the individual or group listed as making the Final Interpretation/Diagnosis certifies that they have reviewed this case. Clinical History: A: Genoa lymph n (more content not included)... Normal [facility] Comment on above: Performed By: #### D #### Dermatopathology LYMPH GLANDon 11-16-2020 LYMPH GLAND Patient Name: THERESA LUU STUDY: LYMPH GLAND; 11/16/2020 10:05 am INDICATION: Malignant melanoma of left lower leg. COMPARISON: PET-CT 10/31/2020. ACCESSION NUMBER(S): [id number] ORDERING CLINICIAN: ALEX TRAMMELL TECHNIQUE: DIVISION OF NUCLEAR MEDICINE RADIONUCLIDE SENTINEL LYMPH NODE LYMPHOSCINTIGRAPHY A total of 970 microcuries of Tc-99m tilmanocept (Lymphoseek) was injected intradermally in a circumferential pattern surrounding the patient's left lower extremity melanoma biopsy site. The injections were performed by Dr. ALEX TRAMMELL. Dynamic planar sequential images were then acquired followed by multiple static planar images with and without cobalt 57 transmission source. Additional SPECT CT imaging of the pelvis was performed. FINDINGS: The initial images demonstrate a grouping of radiotracer foci at the site of injection within the medial left lower leg with subsequent robust flow of radiotracer activity via the medial lymphovascular channels ascending to the level of the left inguinal region where several foci of discrete radiotracer uptake are noted consistent with sentinel lymph nodes. There is activity accumulation within the urinary bladder consistent with systemic circulation of radiotracer activity and subsequent normal route of excretion. SPECT CT images demonstrate multiple lower through superior left inguinal lymph nodes, including a lymph node deep within the left inguinal region anterior to the left acetabulum. There is no definitive intrapelvic lymph node identified demonstrating increased radiotracer uptake. IMPRESSION: Successful sentinel lymph node localization. 1. There are multiple lower through superior left inguinal lymph nodes demonstrating associated uptake consistent with draining sentinel lymph nodes, including a lymph node deep within the left inguinal region anterior to the left acetabulum. 2. There is no definitive intrapelvic lymph node identified demonstrating increased radiotracer uptake. 3. Image copies were sent to PACS for review. Electronically signed by: COCO ARCHIBALD MD [facility] No Panel Informationon 11-16 [facility] Work Phone: Order Reconciliationon 11-16 Order Reconciliation Page 1 Discharge Reconciliation Document Reconciliation Type: Discharge requested on behalf of Alex Trammell (Physician) done by Alex Trammell) Discharge - Reconciliation: 16-Nov-2020 13:16 by: Alex Trammell) Current OrdersDateHOME MEDICATIONS AT DISCHARGE DateReconciliation Comment/ Additional Information hydrALAZINE (APRESOLINE) Injectable DOSE = 5 mg IntraVenous Push OnceClinician Notes: Aylin-operative order ONLY 16-Nov-2020 10:27 hydrALAZINE (APRESOLINE) Injectable is not required HYDROmorphone Injectable (DILAUDID)DOSE = 0.5 mg IntraVenous Push Every 5 Minutes, PRN Pain - Mod (4-6) (PACU)Clinician Notes: Aylin-operative order ONLYMax total of 4 mg regardless of dose. 16-Nov-2020 10:27 HYDROmorphone Injectable is not required HYDROmorphone Injectable (DILAUDID)DOSE = 1 mg IntraVenous Push Every 5 Minutes, PRN Pain - Severe (7-10) (PACU)Clinician Notes: Aylin-operative order ONLYMax total of 4 mg regardless of dose. 16-Nov-2020 10:27 HYDROmorphone Injectable is not required Labetalol Injectable (TRANDATE)DOSE = 5 mg IntraVenous Push Once, PRN For SBP>180, DBP>100Clinician Notes: Aylin-operative order ONLY 16-Nov-2020 10:27 Labetalol Injectable is not required Lactated Ringers Infusion IV Bag Volume = 1,000 mL Run at: 100 mL/hr IntraVenous Clinician Notes: Aylin-operative order ONLY 16-Nov-2020 10:27 Lactated Ringers Infusion is not required Ondansetron Injectable (ZOFRAN)DOSE = 4 mg IntraVenous Push Once, PRN PONV, first lineClinician Notes: Aylin-operative order ONLY 16-Nov-2020 10:27 Ondansetron Injectable is not required oxyCODONE 5 mg - Acetaminophen 325 mg Tablet (PERCOCET)DOSE = 1 tablet(s) Oral Every 4 Hours, PRN Pain - Mod (4-6) (PACU) when able to take oralClinician Notes: Aylin-operative order ONLY 16-Nov-2020 10:27 oxyCODONE 5 mg - Acetaminophen 325 mg is not required Promethazine IV Piggy Back in Sodium Chloride 0.9% 50 mL (PHENERGAN)DOSE = 6.25 mg Once, PRN persistent PONV if first line ineffectiveRecommended Infusion Time: 15 minute(s)Clinician Notes: Aylin-operative order ONLY 16-Nov-2020 10:27 Promethazine IV Piggy Back is not required Home Medications Added During Discharge Reconciliation traMADol 50 mg oral tablet 1 tab(s) orally every 6 hours, As Needed pain All Active Home Medications at time of Discharge Reconciliation: 16-Nov-2020 13:16 traMADol 50 mg oral tablet 1 tab(s) orally every 6 hours, As Needed pain [place] [facility] [place] - Preop v2on 11-16-2020 Patient Profile - Preop v2 Profile: Initial Info: How to be Addressedpamela(1) Spoken Language PreferredEnglish (1) Source of Informationpatient Are you currently using the Personal Electronic Health Record or [employer] Stated Reason for Admissionmelanoma on my lower left leg Primary Contact Name and Numberdonna-cousin Other Contact Names and Numberssue-friend Patient Belongingsremains with patient; patient educated regarding responsibility for personal items Patient Belongings Remaining with Patientclothing Medications Brought to Hospitalno General Health: Weight in kg90 kilogram(s) Weight in eqj090.4 pound(s) Weight Methodactual (measured) Scale Typechair Height in feet5 feet Height in inches2 inch(es) Height in cm157.4 centimeter(s) Height Methodstated BMI (kg/m2)36.327 square meter Patient or Family Member Reaction to Anesthesiano previous reaction Blood Avoidance/Restrictionsnone Previous Transfusion Reactionno Health Mgmt: Symptoms/Conditions Managed at Homecancer Cancer Symptoms/Conditionsmelanom a Barriers to Managing Healthnone Relationship/Environ: Living Arrangementshouse Lives Withalone Resource/Environmental Concernsnone [facility] Anticipated at Transitionnone Substance: Current or Former Substance Use never: Cigarette/Tobacco(1), e-Cigarette/Vaping(1), Street Drugs YES: Alcohol(1) Alcohol Use Statuscurrent alcohol Alcohol Frequencymonthly or less Risk Screens: COVID-19 Screening Completedno exposure or symptoms Advance Directive/DNRno Advance Directive Information Givenpatient/family declined During the past month, have you often been bothered by feeling down, depressed or hopelessno During the past month, have you often had little interest or pleasure in doing thingsno Have you had any thoughts of harming yourselfno Have you had any thoughts of harming anyone elseno Are you or have you been threatened or abused physically,emotionally or sexually abused by anyoneno Do you feel UNSAFE going back to the place you are livingno Patient is Able to be Assessed for Learningyes Factors Influencing Readiness to Learnacuteness of illness Factors that Impact Ability to Learnnone Devices/Methods Used to Communicatenone Learning Preferencesverbal instruction; written material; individual instruction Cultural Considerationsnone Developmental Considerationsnone Taoist Considerationsnone Other learner availableno [place] RiskPatient location auto qualifies him/her for HIGH RISK. Are there any cultural, spiritual, catholic practices/values/needs that are important for us to knowno Pain Scalenumerical 0-10 Pain Scale Educationteaching provided Current Pain Level0 = None Acceptable Pain Level3 = Mild Chronic Painno Information Review: Allergies, Home Meds and Significant Events have been Reviewed and Verified with Patient/Familyyes Allergy, Intolerance, Adverse Event: Allergies: NKDA: Active Grass: Environment, Unknown, Active Significant Events: 16-Nov-2020 melanoma: Past Medical History, Active Electronic Signatures: Deepa Zazueta (GABY) (Signed 16-Nov-2020 06:27) Authored: Initial Info, General Health, Health Mgmt, Relationship/Environ, Substance, Risk Screens, Additional Information Last Updated: 16-Nov-2020 06:27 by Deepa Zazueta (GABY) References: 1. Data Referenced From Patient Profile - Preop v2 14-Nov-2020 09:30 [place] [facility] [place] 11-16-2020 Preop Checklist Preop Checklist: Preop Checklist: Arrival [id number] Arrival Time06:04 NPO [id number] 22:00 ID Band Onyes Allergy Bandno known allergies Consent Signedpending H&P Completeyes Anesthesia Assessment Completedpending EKG Performedyes Chest X-Ray Performednot ordered HCG Urine TestN/A Chlorhexadine Bath Givennot applicable Nasal Antiseptic Appliednot applicable Hair Washednot applicable Soap and water bath with hair shampoo the night before surgeryyes Hat placed on infant prior to transportnot applicable SCD's Appliedsent to [facility] Applied[facility] ordered Denturesperm. bridge Prostheticsnot applicable Hearing Aidsnot applicable Valuables Securedsent with family fortunato Glasses / Contactsnot applicable Bowel Prepno Cardiovascular Assessment: Apicalregular Radial Pulsespalpable Pedal Pulsespalpable Extremitieswarm Respiratory Assessment: Respirationsunlabored regular Air Exchangeequal, good Breath Soundsclear Neurological Assessment: Level of Consciousnessalert, oriented Mobilitymoves all extremities Able to Express Selfyes Age Appropriateyes Emotional Statuscalm Skin Assessment: Skin Site(s) with Current Compromisenone Preop Education: Surgical Site Infection Preventionyes Pain Scales and Managementyes Language / Communication: Language / CommunicationEnglish Electronic Signatures: Deepa Zazueta (GABY) (Signed 16-Nov-2020 06:31) Authored: Preop Checklist Last Updated: 16-Nov-2020 06:31 by Deepa Zazueta (GABY) Normal [facility] Radiology[place] 11-16-2020 NM Lymph node Views Normal [facility] Work Phone: BASIC METABOLIC PANELon 05-0 Anion gap [Moles/Vol] 10 mmol/L Normal 10 - 20 [facility] Comment on above: Performed By: #### B MP #### [address] [address] Calcium [Mass/Vol] 9.2 mg/dL Normal 8.6 - 10.3 [facility] Comment on above: Performed By: #### B MP #### [address] [address] Chloride [Moles/Vol] 105 mmol/L Normal 98 - 107 [facility] Comment on above: Performed By: #### B MP #### [address] [address] Creatinine [Mass/Vol] 0.81 mg/dL Normal 0.50 - 1.05 [facility] Comment on above: Performed By: #### B MP #### [address] [address] GFR- AM. >60 Normal >60 [facility] Comment on above: Result Comment: CALC ULATIONS OF ESTIMATED GFR ARE PERFORMED USING THE MDRD STUDY EQUATION FOR THE IDMS-TRACEABLE CREATININE METHODS. CLIN CHEM 2007;53:766-72 Performed By: #### B MP #### [address] [place] [address] GFR-NON AM. >60 Normal >60 [facility] Comment on above: Performed By: #### B MP #### [address] [place] [address] Glucose [Mass/Vol] 95 mg/dL Normal 74 - 99 [facility] Comment on above: Performed By: #### B MP #### [address] [place] [address] HCO3 (Bld) [Moles/Vol] 30 mmol/L Normal 21 - 32 [facility] Comment on above: Performed By: #### B MP #### [address] [place] [address] Potassium [Moles/Vol] 4.1 mmol/L Normal 3.5 - 5.3 [facility] Comment on above: Performed By: #### B MP #### [address] [address] Sodium [Moles/Vol] 141 mmol/L Normal 136 - 145 [facility] Comment on above: Performed By: #### B MP #### [address] [place] [address] Urea nitrogen [Mass/Vol] 16 mg/dL Normal 6 - 23 [facility] Comment on above: Performed By: #### B MP #### [address] [place] [address] CORONAVIRUS 2019, SCREEN ASY MPTOMATICon 11-14-2020 SARS-CoV-2 (COVID-19) RNA BENOIT+probe Ql (Unsp spec) Not detected Normal Not Detected [facility] Comment on above: Result Comment: . This assay is designed to detect SARS-CoV-2 based on replication of specific regions of the RNA from the SARS-CoV-2 virus. A Not Detected result does not preclude 2019-nCoV infection since the adequacy of sample collection and/or low viral burden may result in presence of viral nucleic acids below the clinical sensitivity of this test method. Fact sheet for providers: https://www.fda.gov/media/508928/download Fact sheet for patients: https://www.fda.gov/media/386571/download This test has received FDA Emergency Use Authorization [EUA] and has been verified by [facility] ([facility]). This test is only authorized for the duration of time that circumstances exist to justify the authorization of the emergency use of in vitro diagnostic tests for the detection of SARS-CoV-2 virus and/or diagnosis of COVID-19 infection under section 564(b)(1) of the Act, 21 U.S.C. 360bbb-3(b)(1), unless the authorization is terminated or revoked sooner. [facility] is certified under CLIA-88 as qualified to perform high complexity testing. Testing is performed in the [facility] laboratories located at [address] [place] [address]. Performed By: #### C OVSC #### [place] [address] Lab Specimen Source Nasal, Nasopharyngeal Normal [facility] Comment on above: Performed By: #### C OVSC #### [place] [address] Coronavirus 2019 RNA by PCR, Screening Asymptomticon 11-14-2020 Coronavirus 2019 RNA by PCR, Screening Asymptomtic Not detected Normal See Below [facility] Work Phone: Comment on above: SOURCE: Nasal, Nasop haryngealReference Range: Not Detected.This assay is designed to detect SARS-CoV-2 based on replication of specific regions of the RNA from the SARS-CoV-2 virus. A Not Detected result does not preclude 2019-nCoV infection since the adequacy of sample collection and/or low viral burden may result in presence of viral nucleic acids below the clinical sensitivity of this test method. Fact sheet for providers: https://www.fda.gov/media/188804/downloadFact sheet for patients: https://www.fda.gov/media/443880/downloadThis test has received FDA Emergency Use Authorization [EUA] and has been verified by [facility] ([facility]). This test is only authorized for the duration of time that circumstances exist to justify the authorization of the emergency use of in vitro diagnostic tests for the detection of SARS-CoV-2 virus and/or diagnosis of COVID-19 infection under section 564(b)(1) of the Act, 21 U.S.C. 360bbb-3(b)(1), unless the authorization is terminated or revoked sooner. [facility] is certified under CLIA-88 as qualified to perform high complexity testing. Testing is performed in the [facility] laboratories located at [address] [place] [address]. Covid 19 Resultson 1 SARS-CoV-2 (COVID-19) RNA BENOIT+probe Ql (Unsp spec) NEGATIVE COVID-19 Test Coronaviruses are common world-wide and are the cause of many common colds. SARS-COV2 is a new coronavirus that began circulating worldwide in 2019 so we are calling it COVID-19. It has been estimated that four out of five patients with COVID-19 will recover at home without the need for medical attention. Symptoms of COVID-19 may include cough, fever, shortness of breath, loss of taste or smell and other flu-like symptoms including chills, sore muscles, sore throat, and headache. Severe illness is more common in older people and people with other health problems such as high blood pressure, obesity, and immune system problems. If the test is positive, you have COVID-19. You will be contacted by the ordering physicians office and instructed to remain on home isolation, in accordance with CDC guidelines. You may also be contacted by the [place] Department of Health to see if any of your close contacts may have been exposed to the virus and need to quarantine. If the test is negative, you likely do not have COVID-19 at this time, but you still may have a different illness that can spread to other people (like Influenza, or the Flu) and could still be at risk for getting COVID-19. We recommend that you stay away from other people to limit the spread of illness until your symptoms are improving and you are fever-free for 24 hours without the use of fever lowering medications such as acetaminophen or ibuprofen. No test is 100% accurate so if you are still concerned you may have COVID-19, talk to your doctor about the need to continue to stay away from others. Medicines Unless your provider told you not to use the following: Acetaminophen (Tylenol and others) is generally safe. Anti-inflammatory medications, such as Ibuprofen (Advil or Motrin) or Naproxen (Aleve) can also be used. Zkjd-oiz-mvdswga cough and cold medicines can be used according to the instructions on the package. Some xzhq-lnn-tqlvbbr medicines also contain acetaminophen. Make sure you are not taking more than your recommended dose. For those not hospitalized, there is no specific treatment available for this illness. Antibiotics do not treat Coronaviruses. Follow-Up Follow up with your doctor by scheduling a virtual visit or consider follow-up at one of our urgent care fever clinics. If you are having difficulty breathing, or are very weak and having difficulty standing, this is a medical emergency. Call 911 or have someone take you to the nearest emergency room immediately. If possible, wear a facemask. Additional guidance from the CDC for patients who tested POSITIVE for COVID-19 How to isolate: Isolate yourself in a specific room at home and limit your contact with others. Use a separate bathroom from other members of the household, when possible. Leave home only to get essential medical care. Do not go to work, school or public areas. Avoid using public transportation, ride-sharing, or taxis. Restrict contact with pets and other animals. If you must care for your pet or be around animals while you are sick, wash your hands before and after your interaction and wear a facemask. Make sure that shared spaces in the home have good airflow, such as by an air conditioner or an opened window, weather permitting. Personal Hygiene Procedures: Wear a face mask when in the same room as other people or pets. If a face mask interferes with your breathing, others should wear a mask when sharing space with you. Frequent hand-washing: wash your hands with soap and water for at least 20 seconds. If soap and water are not available, use alcohol-based hand machine clipper. Avoid touching your eyes, nose, and mouth with unwashed hands. Household Hygiene Procedures: Avoid sharing personal household items such as dishes, glassware, cups, eating utensils, towels or bedding with other people or pets in your home. After use, these items should be washed with soap and hot water. Disinfect all high-touch surfaces every day with antibacterial cleaning solutions such as Lysol wipes, bleach, cleansers, etc. High-touch surfaces include tabletops, doorknobs, bathroom fixtures, toilets, phones, keyboards, tablets and bedside tables. Immediately clean any surfaces that may have blood, poop or body fluids on them, using antibacterial cleaning solutions such as Lysol wipes, bleach, cleansers, etc. If clothing or bedding come into contact with blood, poop or body fluids, they should be washed immediately. Follow the directions on the laundry detergent and clothing labels but hot water is recommended when possible. Stopping home isolation precautions: If possible, consult your doctor before stopping home isolation precautions. According to the CDC, you can discontinue home isolation precautions when you have met both of these criteria: Your fever and respiratory symptoms have been gone for 24 sivakumar (more content not included)... Normal [facility] - Chemistry and C hemistry - challengeon 11-14-2020 Anion gap [Moles/Vol] 10 mmol/L 10 - 20 MG- SurgeryS [facility] Work Phone: [phone] Calcium [Mass/Vol] 9.2 mg/dL 8.6 - 10.3 [facility] Work [facility]: 51 Chloride [Moles/Vol] 105 mmol/L 98 - 107 [facility] Work Phone: [phone] CO2 [Moles/Vol] 30 mmol/L 21 - 32 MG-Surger y-S [facility] Work Phone: 51 Creatinine [Mass/Vol] 0.81 mg/dL See Below - SurgeryS [facility] Work Phone: Comment on above: Reference Range: 0.5 0 - 1.05 Glucose [Mass/Vol] 95 mg/dL 74 - 99 [facility] Work Phone: Potassium [Moles/Vol] 4.1 mmol/L 3.5 - 5.3 MG- Surgery-S [facility] Work Phone: [phone] Sodium [Moles/Vol] 141 mmol/L 136 - 145 MG-Pedro nancy-S [facility] Work Phone: [phone] Urea nitrogen [Mass/Vol] 16 mg/dL 6 - 23 YZ-Itazauv-Q [facility] Work Phone: [phone] No Panel Informationon 11-14 >60 >60 DF-Kmykwzb-Q [facility] Work Phone: [phone] Comment on above: CALCULATIONS OF DENIS MATED GFR ARE PERFORMED USING THE MDRD STUDY EQUATION FOR THE IDMS-TRACEABLE CREATININE METHODS. CLIN CHEM 2007;53:766-72 [email or web address] 1:8080 [email or web address]?R etrieveTestByDateTime?Rachel uaaQY=[id number]&Date=11-14&Time=09%3a51%3a40%3a 00&TestType=ECG&Site=12&Ou tputType=PDF&Ext=PDF VV-Gqajfsh-P [facility] Work Phone: 51 Normal sinus rhythm MG-Burton rgeryS [facility] Work Phone: [phone] Normal WU-Dqzvetq-M [facility] Work Phone: [phone] BF-Hcetdko-M [facility] Work Phone: [phone] IT-Vjaqufp-S [facility] Work Phone: [phone] LM-Gwrociz-J [facility] Work Phone: [phone] QT-Glfzcpn-B [facility] Work Phone: [phone] SH-Eethnuw-S [facility] Work Phone: [phone] FB-Ubssejm-X [facility] Work Phone: [phone] BA-Avgnffn-N [facility] Work Phone: [phone] FZ-Laagody-E [facility] Work Phone: [phone] AJ-Aysnfwz-X [facility] Work Phone: [phone] UH-Udqxxvc-V [facility] Work Phone: [phone] NO-Mwacowl-A [facility] Work Phone: [phone] DS-Jbplqqu-G [facility] Work Phone: [phone] KV-Nlhvkbt-L [facility] Work Phone: [phone] SH-Rekickb-U [facility] Work Phone: [phone] PET/CT MELANOMA INITIAL STAG [place] 10-31-2020 PET/CT MELANOMA INITIAL STAGING Patient Name: THERESA LUU STUDY: PET/CT MELANOMA INITIAL STAGING; 10/31/2020 5:49 pm INDICATION: pt with mass of lower leg- biopst proven melanoma, pathology showing signs of metastatic melanoma, staging needed prior to surgical planning. clinical chart, patient is a 75-year-old female with history of left breast cancer status post mastectomy around 1995, and left distal lower leg biopsy-proven melanoma. COMPARISON: None. ACCESSION NUMBER(S): [id number] ORDERING CLINICIAN: ALEX TRAMMELL TECHNIQUE: DIVISION OF NUCLEAR MEDICINE POSITRON EMISSION TOMOGRAPHY (PET-CT) The patient received an intravenous dose of 11.8 mCi of Fluorine-18 fluorodeoxyglucose (FDG). The patient was placed in a dark quiet room. Positron emission tomographic (PET) images from skull vertex to the feet were then acquired after a one hour delay. Also acquired was a contemporaneous low dose non-contrast CT scan performed for attenuation correction of PET images and anatomic localization. The PET and CT images were digitally fused for display. All images were acquired on a combined PET-CT scanner unit. Some areas of FDG accumulation may be described in standardized uptake value (SUV) units. CODING: Initial Treatment Strategy (PI) CALIBRATION: Dose Faljhukcm-wi-Sacb Interval (mins): 72 min Mediastinal bloodpool SUV (normal 1.5-2.5): 2.0 Blood glucose: 92 mg/dL FINDINGS: HEAD AND NECK: No evidence of focal hypermetabolic lesion in the brain parenchyma, noting that evaluation is limited because of the expected physiologic diffuse FDG uptake in the brain. No focal hypermetabolic soft tissue lesion is seen in the neck. No hypermetabolic cervical lymphadenopathy is present. CHEST: No focal hypermetabolic lesion is seen in the lung parenchyma. No evidence of hypermetabolic mediastinal or hilar lymphadenopathy. There are several minimally active bilateral axillary lymph nodes. Postoperative changes of left mastectomy. ABDOMEN AND PELVIS: No hypermetabolic soft tissue lesion is present in the abdomen and pelvis. No evidence of hypermetabolic mesenteric lymphadenopathy. There are mildly active inguinal lymph nodes bilaterally. Physiologic radiotracer uptake is present in the liver and spleen with excretion into the bowel loops and the genitourinary tract. MUSCULOSKELETAL/EXTREMITIE S: No focal hypermetabolic lesion is seen in the axial or appendicular to suggest osseous metastasis. There is a focus of hypermetabolic activity in the left patellar tendon with a max SUV of 3.5. There is a exophytic soft tissue nodule along the medial aspect of the left lower leg with a max SUV of 9.4. There is a focus of hypermetabolic activity in the palm of the right hand with max SUV of 5.1. There is soft tissue swelling of the left lower leg. There is mild increased activity in the bilateral hip joints right greater than left, likely degenerative in nature. IMPRESSION: 1. Hypermetabolic exophytic soft tissue nodule along the medial left lower leg consistent patient's known melanoma. 2. Focus of metabolic activity in the left patellar tendon, which may be physiologic or inflammatory in nature. However, given left lower leg melanoma, malignancy cannot be excluded. Recommend correlation with physical exam and MRI for further evaluation. 3. Focus of hypermetabolic activity in the right hand is nonspecific but likely physiologic in nature. 4. Several minimally active bilateral axillary and inguinal lymph nodes, likely reactive in nature. I personally reviewed the image(s) / study and agree with the findings and interpretation as stated. This study was interpreted at [facility]. Electronically signed by: IVELISSE OVALLE MD Normal [place] Office Visit (Oncology Surge ry)on 10-23-2020 Follow-up visit Diagnoses/Problems Assessed Malignant melanoma of left lower leg (172.7) (C43.72) Orders Malignant melanoma of left lower leg PET/CT Melanoma Initial; Status:Active; Requested for:31Oct2020; Reason: Unspecified for PET/CT Melanoma Initial Radiologist to Determine Optimal Study : Y What are the patient's signs and symptoms? : pt with mass of lower leg- biopst proven melanoma, pathology showing signs of metastatic melanoma, staging needed prior to surgical planning Patient Discussion/Summary Mrs. Luu is very nice 75-year-old female with a exophytic left distal lower leg melanoma. She has no palpable williams disease or evidence of metastatic disease at this point. I also cannot appreciate any in-transit disease on the current exam. The patient also is noted to have significant edema in the lower extremities. No evidence of cellulitis. I discussed the pathology result with the patient and the understanding that the significant residual lesion suggest that there is clearly more disease present. Due to a lack of epidermal attachment on the pathology specimen, I will order a whole-body PET/CT for presurgical staging. Her tumor will also be evaluated with melanoma NGS testing. The patient understands that if there are any findings on the PET scan suggestive of spread of disease, that we will require additional biopsies. If there are no additional findings, the patient will be recommended for a wide excision of her primary tumor and sentinel lymph node biopsy. Due to the edema and that left lower leg as well as the particular location of this mass, I would recommend for VAC placement initially plus or minus a skin substitute. This will allow for assurance of clear margins prior to any definitive closure of the wound. The patient also knows that closure by secondary intention is a viable option. The patient was also recommended to see her primary care physician to assess for possible initiation of a diuretic to improve her lower leg edema. Prior to any surgical intervention, the patient will also need labs, an EKG and preanesthesia testing to ensure medical clearance. The patient understood these recommendations and asked very appropriate questions that were answered to the best of my ability with the current information at hand. She knows to call with any questions or concerns that arise in the interim. A total of 60 minutes was spent evaluating this patient's case and examining the patient. 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 Luu is a 75-year-old female referred by Dr. Argelia Aguilar for evaluation and management of a left distal anterior lower leg melanoma. The patient reports that she thinks this lesion has been present for a couple months and that is grown quickly. This is an exophytic lesion that bleeds occasionally. The patient denies any trauma to the area and is not sure if it arose in a prior mole. The patient moved from [place] 8 years ago and has not established consistent care. She is recently began seeing Dr. Yoni Muller for her primary physician, and was referred to Dr. Aguilar for evaluation of this tumor. 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 The pathologic description suggested that there was a lack of significant epidermal attachment raising the possibility of a metastatic or recurrent melanoma. Past medical history: Denies chronic medical conditions. Left breast cancer status postmastectomy with TRAM flap around 1995. No chemo or radiation or endocrine therapy. 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 Has 2 dogs. Walks regularly. Denies tobacco, alcohol, and drug use. Has extended family in [place] [facility] [place] [facility] Allergies: No known drug allergies ROS: The patient has good performance status and is active daily. Cardiac: No chest pain, palpitations or heart attacks Pulmonary: No asthma, bronchitis, or COPD HEENT: No sinus or dental issues. GI: No constipation, diarrhea, or bloody bowel movements : Postmenopausal, no urinary complaints Musculoskeletal: No limitations to ROM or strength Skin: Prior right cheek and current right back lesions Heme: No bleeding or thrombosis issues Lymph: No swollen lymph glands Psych: No reported anxiety or depression All other systems reviewed and negative Physical exam: General: No acute distress. Healthy appearing HEENT: Moist oral mucosa, normocephalic CV: RRR, Vitals reviewed Pulmonary: No respiratory distress. No use of (more content not included)... Normal [employer] [facility] Surgical Pathology Depar tmenton 10-16-2020 [facility] Surgical Pathology Department Name THERESA LUU Pathologist: SHER DIAS MD Date of Procedure: 10/16/2020 Date Received: 10/31/2020 Date Reported 11/02/2020 Submitting Physician: SURAJ MELGAR MD Location: [facility] FINAL DIAGNOSIS RESULTS OF ANCILLARY TESTING ORDERED BY PATIENT'S PHYSICIAN/PATHOLOGIST ON OUTSIDE/ARCHIVED MATERIAL WILL BE RESULTED AN ADDENDUM. NO DIAGNOSIS IS RENDERED ON THIS CASE Electronically Signed Out By SHER DIAS MD/ESTEBAN By the signature on this report, the individual or group listed as making the Final Interpretation/Diagnosis certifies that they have reviewed this case. Addendum/Procedures: Special Oncology Report Date Ordered: 11/02/2020 Status: Signed Out Date Complete: 11/02/2020 Date Reported: 11/02/2020 Addendum Diagnosis TEST: Solid Focus Tumor DNA Panel SPECIMEN: FFPE, Skin, Left Leg, Biopsy, [id number] DISEASE DIAGNOSIS: Melanoma Estimated Tumor Content: 50% COLLECTION DATE: 10/16/2020 RECEIVED DATE: 10/31/2020 REPORT DATE: 11/02/2020 MICROSATELLITE STATUS: Microsatellite Stable (MARTA) DISEASE ASSOCIATED GENOMIC FINDINGS: NRAS p.Q61K ([id number]: c.[id number]>A) DISEASE RELEVANT ALTERATIONS NOT DETECTED: Negative for BRAF V600E/K mutation. The following regions showed coverage of less than 300X, (gene:exon): FGFR3:9,FGFR3:18,RICTOR:12 ,RAC1:2,CDKN2A:2,AKT1:3,TP 53:8,TP53:4. A false negative result cannot be excluded in these regions, especially in samples of low neoplastic cell content. Archival material from this surgical specimen has been reviewed by the pathologist in order to determine the most appropriate tumor tissue for further molecular testing. The identification and selection of this tumor tissue is critical to the success of subsequent molecular testing and analysis. DISCLAIMER: This assay is designed to detect targeted clinically-relevant single nucleotide variants, insertion and deletions (<30bp), and whole gene high copy number amplifications in a select group of genes. This assay does not distinguish between somatic and germline alterations in analyzed regions. A negative result (mutation not identified) does not rule out the presence of a mutation below the limit of detection of this assay due to low neoplastic cell content, tumor heterogeneity, or the presence of additional mutations in the listed genes which are outside of the target regions in this assay. General population polymorphisms, promoter, synonymous and intronic variants (with the exception of splice variants) are not generally included in this report. The MSI-H/MARTA designation is based on analysis of up to 10 mononucleotide repeat loci and not based on the 5 or 7 MSI described in current clinical practice guidelines. The threshold for MSI-H/MARTA was determined by analytical concordance to dMMR IHC assays using mainly colorectal and uterine FFPE tissue. The clinical validity of the qualitative MSI designation has not been established. Identification or absence of cancer-associated mutations does not necessarily indicate a response to therapy. Decisions on patient care and treatment must be based on the independent medical judgment of the treating physician, taking into account all applicable information concerning the patient's condition such as clinical and histopathologic findings, other laboratory findings, and patient preferences. This report includes information from public sources, including scientific and medical literature to better characterize the significance of alterations detected. Nucleic acid extraction and testing are performed in the [facility] ([facility]) located at [address] [place] [address] (CLIA License #[id number], CAP #[id number]). This laboratory developed test was developed and its analytical performance characteristics have been determined by [facility]. This test has not been cleared or approved by the FDA; however, the FDA has determined that such approval is not necessary. The [facility] is certified under the Clinical Laboratory Improvement Amendments of 1988 (CLIA-88) as qualified to perform high complexity testing. Hotspot Mutations: AKT1, ALK, APC, AR, ARAF, B2M, BRAF, CCNND1, CDK4, CDKN2A, CREBBP, CTNNB1, DDR2, EGFR, EP300, ERBB2, ERBB3, ERBB4, ESR1, FBXW7, FGFR2, FGFR3, GNA11, GNAQ, HRAS, IDH1, IDH2, JAK1, JAK2, JAK3, KEAP1, KIT, KRAS, MAP2K1, MAP2K2, MET, MTOR, NFE2L2, NRAS, PDGFRA, PIK3CA, POLE, PTEN, RAF1, RET, ROS1, SMAD4, SMO, TP53, U2AF1. Copy Number Variants: ALK, AR, JUDITH, BRAF, CCND1, CDK4, CDK6, EGFR, ERBB2, FGFR1, FGFR2, FGFR3, FGFR4, KIT, KRAS, MET, MYC, MYCN, PDGFRA, PIK3CA, RICTOR. Not all exons of all genes are sequenced. Genome assembly (hg19) was used for alignment and variant calling. Electronically Signed Out By SHER DIAS MD/ESTEBAN By the signature on this report, the individual or group listed as m (more content not included)... Normal [facility] Comment on above: Performed By: #### [facility] #### [facility] Surgical Pathology Department [address] [facility] [address] Vital Signs Date Time Vital Sign Value Performing Clinician Facility 03-06-2023 13:49-0400 Body temperature 97.8 [degF] DO Yoni EarLens Work Phone: [facility] 03-06-2023 13:49-0400 Body weight 89.35 kg DO Yoni Futuris[employer]tkng Work Phone: [facility] 03-06-2023 13:49-0400 Diastolic blood pressure 71 mm[Hg] DO Yoni Cortexymelong Work Phone: [facility] 03-06-2023 13:49-0400 Heart rate 87 /min DO Yoni Cortexymelong Work Phone: [facility] 03-06-2023 13:49-0400 Respiratory rate 16 /min DO Yoni Cortex[employer]elong Work Phone: [facility] 03-06-2023 13:49-0400 SaO2% (BldA) [Mass fraction] 94 % DO Yoni Cortex[employer]elong Work Phone: [facility] 03-06-2023 13:49-0400 Systolic blood pressure 139 mm[Hg] DO Yoni Cortexymelong Work Phone: [facility] 01-27-2023 10:30-0400 Body temperature 97.5 [degF] Kimber Lacy Other [employer] Other 01-27-2023 10:30-0400 Body weight 87.54 kg Kimber Lacy Other [employer] Other 01-27-2023 10:30-0400 Diastolic blood pressure 80 mm[Hg] Kimber Lacy Other [facility] [employer] Other 01-27-2023 10:30-0400 SaO2% (BldA) [Mass fraction] 96 % Kimber Lacy Other [facility] [employer] Other 01-27-2023 10:30-0400 Systolic blood pressure 159 mm[Hg] Kimber Lacy Other [facility] [employer] Other 01-27-2023 10:23-0400 Body temperature 97.5 [degF] DO Yoni Cortex[employer]elong Work Phone: [facility] 01-27-2023 10:23-0400 Body weight 88.49 kg DO Yoni Furlong Work Phone: [facility] 01-27-2023 10:23-0400 Diastolic blood pressure 80 mm[Hg] DO Yoni Furlong Work Phone: [facility] 01-27-2023 10:23-0400 Heart rate 90 /min DO Yoni Furlong Work Phone: [facility] 01-27-2023 10:23-0400 Respiratory rate 18 /min DO Yoni Furlong Work Phone: [facility] 01-27-2023 10:23-0400 SaO2% (BldA) [Mass fraction] 96 % DO Yoni Furlong Work Phone: [facility] 01-27-2023 10:23-0400 Systolic blood pressure 159 mm[Hg] DO Yoni Furlong Work Phone: [facility] 12-30-2022 09:56-0400 Body weight 88.45 kg DO Yoni Furlong Work Phone: [facility] 12-30-2022 08:26-0400 Body temperature 97.8 [degF] DO Yoni Furlong Work Phone: [facility] 12-30-2022 08:26-0400 Body weight 88.45 kg DO Yoni Furlong Work Phone: [facility] 12-30-2022 08:26-0400 Diastolic blood pressure 81 mm[Hg] DO Yoni Furlong Work Phone: [facility] 12-30-2022 08:26-0400 Heart rate 86 /min DO Yoni Furlong Work Phone: [facility] 12-30-2022 08:26-0400 Respiratory rate 16 /min DO Yoni Furlong Work Phone: [facility] 12-30-2022 08:26-0400 SaO2% (BldA) [Mass fraction] 98 % DO Yoni Furlong Work Phone: [facility] 12-30-2022 08:26-0400 Systolic blood pressure 132 mm[Hg] DO Yoni Furlong Work Phone: [facility] 09-08-2022 11:09-0500 Body weight 90.2 kg DO Yoni Furlong Work Phone: [facility] 09-08-2022 09:52-0500 Body temperature 97.9 [degF] DO Yoni Furlong Work Phone: [facility] 09-08-2022 09:52-0500 Body weight 90.2 kg DO Yoni Furlong Work Phone: [facility] 09-08-2022 09:52-0500 Diastolic blood pressure 82 mm[Hg] DO Yoni Furlong Work Phone: [facility] 09-08-2022 09:52-0500 Heart rate 78 /min DO Yoni Furlong Work Phone: [facility] 09-08-2022 09:52-0500 Respiratory rate 20 /min DO Yoni Furlong Work Phone: [facility] 09-08-2022 09:52-0500 SaO2% (BldA) [Mass fraction] 97 % DO Yoni Furlong Work Phone: [facility] 09-08-2022 09:52-0500 Systolic blood pressure 137 mm[Hg] DO Yoni Furlong Work Phone: [facility] 08-11-2022 11:25-0500 Body weight 89.4 kg DO Yoni Furlong Work Phone: [facility] 08-11-2022 10:28-0500 Body height 160.02 cm DO Yoni Furlong Work Phone: [facility] 08-11-2022 10:28-0500 Body temperature 97.4 [degF] DO Yoni Furlong Work Phone: [facility] 08-11-2022 10:28-0500 Diastolic blood pressure 68 mm[Hg] DO Yoni Furlong Work Phone: [facility] 08-11-2022 10:28-0500 Heart rate 82 /min DO Yoni Furlong Work Phone: [facility] 08-11-2022 10:28-0500 Respiratory rate 20 /min DO Yoni Furlong Work Phone: [facility] 08-11-2022 10:28-0500 SaO2% (BldA) [Mass fraction] 98 % DO Yoni Furlong Work Phone: [facility] 08-11-2022 10:28-0500 Systolic blood pressure 132 mm[Hg] DO Yoni Furlong Work Phone: [facility] 06-23-2022 12:05-0500 Body weight 88.6 kg DO Yoni Furlong Work Phone: [facility] 06-23-2022 10:44-0500 Body temperature 97.9 [degF] DO Yoni Furlong Work Phone: [facility] 06-23-2022 10:44-0500 Body weight 88.6 kg DO Yoni Furlong Work Phone: [facility] 06-23-2022 10:44-0500 Diastolic blood pressure 74 mm[Hg] DO Yoni Furlong Work Phone: [facility] 06-23-2022 10:44-0500 Heart rate 80 /min DO Yoni Furlong Work Phone: [facility] 06-23-2022 10:44-0500 Respiratory rate 18 /min DO Yoni Furlong Work Phone: [facility] 06-23-2022 10:44-0500 SaO2% (BldA) [Mass fraction] 98 % DO Yoni Furlong Work Phone: [facility] 06-23-2022 10:44-0500 Systolic blood pressure 141 mm[Hg] DO Yoni Furlong Work Phone: [facility] 06-02-2022 10:29-0500 Body temperature 97.7 [degF] DO Yoni Furlong Work Phone: [facility] 06-02-2022 10:29-0500 Body weight 89.9 kg DO Yoni Furlong Work Phone: [facility] 06-02-2022 10:29-0500 Diastolic blood pressure 82 mm[Hg] DO Yoni Furlong Work Phone: [facility] 06-02-2022 10:29-0500 Heart rate 92 /min DO Yoni Furlong Work Phone: [facility] 06-02-2022 10:29-0500 Respiratory rate 16 /min DO Yoni Furlong Work Phone: [facility] 06-02-2022 10:29-0500 SaO2% (BldA) [Mass fraction] 97 % DO Yoni Furlong Work Phone: [facility] 06-02-2022 10:29-0500 Systolic blood pressure 150 mm[Hg] DO Yoni Furlong Work Phone: [facility] 05-02-2022 15:07-0400 Body weight 92.8 kg DO Yoni Furlong Work Phone: [facility] 05-02-2022 15:07-0400 Diastolic blood pressure 83 mm[Hg] DO Yoni Furlong Work Phone: [facility] 05-02-2022 15:07-0400 Heart rate 87 /min DO Yoni Furlong Work Phone: [facility] 05-02-2022 15:07-0400 Respiratory rate 20 /min DO Yoni Furlong Work Phone: [facility] 05-02-2022 15:07-0400 SaO2% (BldA) [Mass fraction] 98 % DO Yoni Furlong Work Phone: [facility] 05-02-2022 15:07-0400 Systolic blood pressure 146 mm[Hg] DO Yoni Furlong Work Phone: [facility] 04-28-2022 09:07-0400 Diastolic blood pressure 76 mm[Hg] DO Yoni Furlong Work Phone: [facility] 04-28-2022 09:07-0400 Heart rate 93 /min DO Yoni Furlong Work Phone: [facility] 04-28-2022 09:07-0400 Respiratory rate 18 /min DO Yoni Furlong Work Phone: [facility] 04-28-2022 09:07-0400 SaO2% (BldA) [Mass fraction] 95 % DO Yoni Furlong Work Phone: [facility] 04-28-2022 09:07-0400 Systolic blood pressure 148 mm[Hg] DO Yoni Furlong Work Phone: [facility] 04-28-2022 08:11-0400 Body height 157.48 cm DO Yoni Furlong Work Phone: [facility] 04-28-2022 08:11-0400 Body temperature 98.6 [degF] DO Yoni Furlong Work Phone: [facility] 04-28-2022 08:11-0400 Body weight 91.17 kg DO Yoni Furlong Work Phone: [facility] 04-21-2022 08:54-0400 Body height 160.02 cm DO Yoni Furlong Work Phone: [facility] 04-21-2022 08:54-0400 Body temperature 98 [degF] DO Yoni Furlong Work Phone: [facility] 04-21-2022 08:54-0400 Body weight 91.48 kg DO Yoni Furlong Work Phone: [facility] 04-21-2022 08:54-0400 Diastolic blood pressure 87 mm[Hg] DO Yoni Furlong Work Phone: [facility] 04-21-2022 08:54-0400 Heart rate 85 /min DO Yoni Furlong Work Phone: [facility] 04-21-2022 08:54-0400 Respiratory rate 20 /min DO Yoni Furlong Work Phone: [facility] 04-21-2022 08:54-0400 SaO2% (BldA) [Mass fraction] 97 % DO Yoni Furlong Work Phone: [facility] 04-21-2022 08:54-0400 Systolic blood pressure 161 mm[Hg] DO Yoni Hollowayng Work Phone: [facility] 10-25-2021 09:45-0400 Body temperature 98 [degF] MD Alex Trammell Work Phone: [facility] 10-25-2021 09:45-0400 Body weight 90.94 kg MD Alex Trammell Work Phone: [facility] 10-25-2021 09:45-0400 Diastolic blood pressure 70 mm[Hg] MD Alex Trammell Work Phone: [facility] 10-25-2021 09:45-0400 Heart rate 90 /min MD Alex Trammell Work Phone: [facility] 10-25-2021 09:45-0400 Respiratory rate 20 /min MD Alex Trammell Work Phone: [facility] 10-25-2021 09:45-0400 SaO2% (BldA) [Mass fraction] 98 % MD Alex Trammell Work Phone: [facility] 10-25-2021 09:45-0400 Systolic blood pressure 141 mm[Hg] MD Alex Trammell Work Phone: [facility] 10-07-2021 08:13-0400 Body temperature 98.1 [degF] DO Sly Adamowicz II Work Phone: [facility] 10-07-2021 08:13-0400 Body weight 92.8 kg DO Sly Adamowicz II Work Phone: [facility] 10-07-2021 08:13-0400 Diastolic blood pressure 78 mm[Hg] DO Sly Adamowicz II Work Phone: [facility] 10-07-2021 08:13-0400 Heart rate 96 /min DO Sly Adamowicz II Work Phone: [facility] 10-07-2021 08:13-0400 Respiratory rate 20 /min DO Sly Benson II Work Phone: [facility] 10-07-2021 08:13-0400 SaO2% (BldA) [Mass fraction] 97 % DO Sly Benson II Work Phone: [facility] 10-07-2021 08:13-0400 Systolic blood pressure 144 mm[Hg] DO Sly Benson II Work Phone: [facility] 10-07-2021 08:05-0400 Body height 160.02 cm DO Sly Benson II Work Phone: [facility] 09-17-2021 15:09-0500 Body temperature 98.6 [degF] Yoni Prolong Work Phone: [facility] Work Phone: 09-17-2021 15:09-0500 Body weight 89.54 kg Yoni Prolong Work Phone: [facility] 4605 Work Phone: 09-17-2021 15:09-0500 Diastolic blood pressure 81 mm[Hg] Yoni Prolong Work Phone: [facility] 460 Work Phone: 09-17-2021 15:09-0500 Heart rate 101 /min Yoni Prolong Work Phone: [facility]eu[facility]pg[facility] 4608 Work Phone: 09-17-2021 15:09-0500 Respiratory rate 18 /min Yoni Prolong Work Phone: N[facility]wkh[facility] 4608 Work Phone: 09-17-2021 15:09-0500 Systolic blood pressure 158 mm[Hg] Yoni G Furlong Work Phone: [facility] 4600 Work Phone: 01-22-2021 14:42-0400 Body weight 88.03 kg Yoni Neo Furlong Work Phone: VV-Thyycwp-Ljgmaagf 150 Work Phone: 01-22-2021 14:42-0400 Diastolic blood pressure 84 mm[Hg] Yoni G Furlong Work Phone: AX-Phjymxe-Bgskfupw 150 Work Phone: 01-22-2021 14:42-0400 Heart rate 102 /min Yoni G Furlong Work Phone: HK-Thpphjs-Tyukxsst 150 Work Phone: 01-22-2021 14:42-0400 SaO2% (BldA) [Mass fraction] 95 % Yoni G Furlong Work Phone: LR-Mmjmgno-Ggfysmtj 150 Work Phone: 01-22-2021 14:42-0400 Systolic blood pressure 149 mm[Hg] Yoni G Furlong Work Phone: CF-Vqjwotw-Zipczqsb 150 Work Phone: 12-25-2020 15:23-0400 Body weight 89.36 kg Yoni G Furlong Work Phone: [facility] Work Phone: 12-25-2020 15:23-0400 Diastolic blood pressure 85 mm[Hg] Yoni G Furlong Work Phone: [facility] Work Phone: 12-25-2020 15:23-0400 Heart rate 105 /min Yoni G Furlong Work Phone: [facility] Work Phone: 12-25-2020 15:23-0400 SaO2% (BldA) [Mass fraction] 95 % Yoni G Furlong Work Phone: [facility] Work Phone: 12-25-2020 15:23-0400 Systolic blood pressure 163 mm[Hg] Yoni G Furlong Work Phone: [facility] Work Phone: 12-04-2020 15:07-0400 Diastolic blood pressure 84 mm[Hg] Yoni G Furlong Work Phone: [facility] SM Work Phone: 12-04-2020 15:07-0400 Heart rate 111 /min Yoni G Furlong Work Phone: [facility] SM Work Phone: 12-04-2020 15:07-0400 SaO2% (BldA) [Mass fraction] 98 % Yoni G Furlong Work Phone: [facility] SM Work Phone: 12-04-2020 15:07-0400 Systolic blood pressure 154 mm[Hg] Yoni Larson Furlong Work Phone: [facility] SM Work Phone: 11-27-2020 15:10-0400 Body weight 90.72 kg Yoni G Furlong Work Phone: [facility] Work Phone: 11-27-2020 15:10-0400 Diastolic blood pressure 79 mm[Hg] Yoni G Furlong Work Phone: [facility] Work Phone: 11-27-2020 15:10-0400 Heart rate 98 /min Yoni G Furlong Work Phone: [facility] Work Phone: 11-27-2020 15:10-0400 SaO2% (BldA) [Mass fraction] 96 % Yoni Prolong Work Phone: [facility] Work Phone: 11-27-2020 15:10-0400 Systolic blood pressure 138 mm[Hg] Yoni Hollowayng Work Phone: [facility] Work Phone: [phone] 23:00-0500 >na< Quentin Fitzpatrick Dept. of Eleazar matology Encounters Encounter Date Encounter Type Care Provider Facility Start: 06-16-2023 ambulatory Yoni Furlong Facility :[facility] Start: 03-06-2023 End: 03-06-2023 ambulatory DO Yoni Furlong Work Phone: [facility] Work Phone: Start: 03-06-2023 End: 03-06-2023 Registered Recurring DO Yoni Furlong Work Phone: [facility] Work Phone: Start: 01-27-2023 Office outpatient vi sit 25 minutes Kimber Lacy [facility] Start: 01-27-2023 End: 01-27-2023 ambulatory DO Yoni Furlong Work Phone: [facility] Work Phone: Start: 01-27-2023 End: 01-27-2023 Registered Recurring DO Yoni Furlong Work Phone: [facility] Work Phone: Start: 12-30-2022 End: 12-30-2022 ambulatory DO Yoni Furlong Work Phone: [facility] Work Phone: Start: 12-30-2022 End: 12-30-2022 Registered Recurring DO Yoni Furlong Work Phone: [facility] Work Phone: Start: 12-30-2022 End: 12-30-2022 ambulatory DO Yoni Furlong Work Phone: [facility] Work Phone: Start: 12-30-2022 End: 12-30-2022 Registered Recurring DO Yoni Furlong Work Phone: [facility] Work Phone: Start: 10-03-2022 End: 10-04-2022 ambulatory SLY BENSON Facility:[facility] Start: 09-08-2022 End: 09-08-2022 ambulatory DO Yoni Furlong Work Phone: [facility] Work Phone: Start: 09-08-2022 End: 09-08-2022 Registered Recurring DO Yoni Furlong Work Phone: [facility] Work Phone: Start: 09-05-2022 End: 09-06-[address] YONI MULLER Facility:[facility] Start: 08-11-2022 End: 08-11-2022 ambulatory DO Yoni Furlong Work Phone: [facility] Work Phone: Start: 08-11-2022 End: 08-11-2022 Registered Recurring DO [facility]: Start: 07-21-2022 End: 07-22-2022 ambulatory SLY BENSON Facility:[facility] Start: 06-23-2022 End: 06-23-2022 ambulatory DO Yoni Furlong Work Phone: [facility] Work Phone: Start: 06-23-2022 End: 06-23-2022 Registered Recurring DO Yoni Furlong Work Phone: [facility] [place] Start: 06-23-2022 End: 06-23-2022 ambulatory DO Yoni Furlong Work Phone: [facility] Work Phone: Start: 06-23-2022 End: 06-23-2022 Registered Recurring DO [facility] Fur[facility] Start: 06-20-2022 End: 06-21-[address] YONI MULLER Facility:[facility] Start: 06-02-2022 End: 06-02-2022 ambulatory DO Yoni Furlong Work Phone: [facility] Work Phone: Start: 06-02-2022 End: 06-02-2022 Registered Recurring DO Yoni Furlong [facility] [place] Start: 05-30-2022 End: 05-31-2022 ambulatory SLY BENSON Facility:[facility] Start: 05-13-2022 End: 05-14-2022 ambulatory SLY BENSON Facility:[facility] Start: 05-10-2022 End: 05-11-2022 ambulatory SLY BENSON Facility:[facility] Start: 05-02-2022 End: 05-02-2022 ambulatory DO Yoni Furlong Work Phone: [facility] Work Phone: Start: 05-02-2022 End: 05-02-2022 Registered Recurring DO Yoni Furlong [facility] [place] Start: 04-28-2022 End: 04-28-2022 Admission to same day surgery center DO Yoni Furlong Work Phone: [facility] [place] Start: 04-28-2022 End: 04-28-2022 ambulatory DO Yoni Furlong Work Phone: [facility] Work Phone: Start: 04-21-2022 End: 04-21-2022 ambulatory DO Yoni Furlong Work Phone: [facility] Work Phone: Start: 04-21-2022 End: 04-21-2022 Registered Recurring DO Yoni Furlong Work Phone: [facility] Start: 03-26-2022 End: 03-26-2022 Patient encounter procedure DO Yoni Furlong Work Phone: [facility]CT [facility] [place] Start: 10-25-2021 End: 10-25-2021 Registered Recurring MD Alex Trammell Work Phone: [facility] Start: 10-10-2021 End: 10-10-2021 Patient encounter procedure DO Sly Adamowicz II Work Phone: [facility]-CT Scan [facility] Start: 10-07-2021 End: 10-07-2021 Registered Recurring DO Sly Adamowicz II [facility] Start: 10-07-2021 Registered Recurring DO Clinton y Adamowicz II Work Phone: [facility] Start: 09-24-2021 AUDIT Yoni Holloway ng Work Phone: [facility] Work Phone: Start: 09-23-2021 Chart Update Yoni Holloway ng Work Phone: [facility] Work Phone: Start: 09-17-2021 Office outpatient ne w 30 minutes Yoni Muller Work Phone: [facility] [address] Work Phone: Start: 09-17-2021 Office outpatient vi sit 15 minutes Yoni Muller Work Phone: IB-Ypaumog-Kyqvc Main Work Phone: Start: 01-22-2021 Office outpatient vi sit 15 minutes Yoni Muller Work Phone: PP-Orvrqgm-Dqumitwa 150 Work Phone: Start: 01-12-2021 AUDIT Yoni Holloway ng Work Phone: BV[facility]Czpmgob[facility]Shcsmws[facility] Work Phone: Start: 12-25-2020 Office outpatient vi sit 25 minutes Yoni Muller Work Phone: GK-Uusokcn-Ewaovnvy 150 Work Phone: Start: 12-25-2020 Patient encounter procedure Yoni Muller Work Phone: [facility] Work Phone: Start: 12-17-2020 AUDIT Yoni Holloway ng Work Phone: UL[facility]Xusgfcn[facility]ByvntwvPaul [facility] Work Phone: Start: 12-04-2020 FUV, Provider: Alex Trammell, Status: Pen, Time: 3:00 PM Yoni Muller Work Phone: AN-Bflzhnf-QxkrsgwPaul [facility] Work Phone: Start: 12-04-2020 Patient encounter procedure Yoni Muller Work Phone: [facility] Work Phone: Start: 11-27-2020 Postop follow up vis it related to original px Yoni Muller Work Phone: JH[facility]Jjuzvwn[facility]NlsjfkaPaul [facility] Work Phone: Start: 11-27-2020 Quentin Fitzpatrick Dep t. of Dermatology Start: 11-13-2020 Quentin Fitzpatrick Dep t. of Dermatology Start: 10-23-2020 Quentin Fitzpatrick Dep t. of Dermatology Procedures Date Procedure Procedure Detail Performing Clinician Start: 03-05-2023 Computed tomography of abdomen and pelvis with contrast DO Yoni Furlong Work Phone: Start: 03-05-2023 CT of thorax with contrast DO Yoni Furlong Work Phone: Start: 10-31-2022 Computed tomography of abdomen and pelvis with contrast DO Yoni Furlong Work Phone: Start: 10-31-2022 CT of thorax with contrast DO Yoni Furlong Work Phone: Start: 08-08-2022 Computed tomography of abdomen and pelvis with contrast DO Yoni Furlong Work Phone: Start: 08-08-2022 CT of thorax with contrast DO Yoni Furlong Work Phone: Start: 04-28-2022 Aspiration DO Yoni Furlong Work Phone: Start: 03-26-2022 Computed tomography of abdomen and pelvis with contrast DO Yoni Furlong Work Phone: Start: 03-26-2022 CT of thorax with contrast DO Yoni Furlong Work Phone: Start: 10-10-2021 Computed tomography of abdomen and pelvis with contrast DO Sly Adamowicz II Work Phone: Start: 10-10-2021 CT of thorax with contrast DO Sly Adamowicz II Work Phone: Start: 11-27-2020 Quentin Fitzpatrick Start: 11-13-2020 Quentin Fitzpatrick Start: 10-23-2020 Quentin ortiz Other Plan of Treatment Date Care Activity Detail Author Start: 02-24-2023 [facility] Start: 01-27-2023 [facility] Start: 01-27-2023 [facility] Start: 12-30-2022 Adrenocorticotropic hormone measurement [facility] Start: 12-30-2022 [facility] Start: 12-30-2022 [facility] Start: 12-25-2022 [facility] Start: 12-01-2022 [facility] Start: 11-03-2022 [facility] Start: 10-06-2022 [facility] Start: 09-08-2022 [facility] Start: 09-08-2022 [facility] Start: 08-11-2022 [facility] Start: 07-23-2022 [facility] Start: 06-23-2022 [facility] Start: 06-23-2022 Adrenocorticotropic hormone measurement [facility] Start: 06-23-2022 [facility] Start: 06-02-2022 [facility] Start: 05-12-2022 End: 05-12-2022 [facility] Start: 05-12-2022 [facility] Start: 04-28-2022 [facility] Start: 04-28-2022 [facility] Start: 04-28-2022 [facility] Start: 02-19-2021 FUV, Provider: Alex Trammell, Status: Pen, Time: 3:00 PM FUV, Provider: Alex Trammell, Status: Pen, Time: 3:00 PM OG-Zzwappd-Xcrvrjqt 150 Work Phone: Start: 01-22-2021 FUV, Provider: Alex Trammell, Status: Pen, Time: 3:00 PM FUV, Provider: Alex Trammell, Status: Pen, Time: 3:00 PM XG-Cuexzec-Qzzvyahp 150 Work Phone: Start: 12-25-2020 FUV, Provider: Alex Trammell, Status: Pen, Time: 3:00 PM FUV, Provider: Alex Trammell, Status: Pen, Time: 3:00 PM [facility] Work Phone: Adrenocorticotropic hormone measurement [facility] Adrenocorticotropic hormone measurement [facility] Work Phone: Adrenocorticotropic hormone measurement [facility] Adrenocorticotropic hormone measurement [facility] Adrenocorticotropic hormone measurement [facility] Adrenocorticotropic hormone measurement [facility] Adrenocorticotropic hormone measurement [facility] Adrenocorticotropic hormone measurement [facility] Adrenocorticotropic hormone measurement [facility] Blood chemistry [facility] Blood chemistry [facility] Comprehensive metabo lic 1999 panel - Serum or Plasma [facility] Comprehensive metabo lic 1999 panel - Serum or Plasma [facility] Comprehensive metabo lic 1999 panel - Serum or Plasma [facility] Comprehensive metabo lic 1999 panel - Serum or Plasma [facility] Comprehensive metabo lic 1999 panel - Serum or Plasma [facility] Comprehensive metabo lic 1999 panel - Serum or Plasma [facility] Comprehensive metabo lic 1999 panel - Serum or Plasma [facility] Comprehensive metabo lic 1999 panel - Serum or Plasma [facility] Computed tomography for radiotherapy planning [facility] Cortisol [Mass/volum e] in Serum or Plasma [facility] Cortisol [Mass/volum e] in Serum or Plasma [facility] Cortisol [Mass/volum e] in Serum or Plasma [facility] Work Phone: Cortisol [Mass/volum e] in Serum or Plasma [facility] Cortisol [Mass/volum e] in Serum or Plasma [facility] CT Abdomen and Pelvi s W contrast IV [facility] CT Abdomen and Pelvi s W contrast IV [facility] CT Abdomen and Pelvi s W contrast IV [facility] CT Chest W contrast IV [facility] CT Chest W contrast IV [facility] CT Chest W contrast IV [facility] Erythrocyte sediment ation rate by Photometric method [facility] Hepatic function panel [facility] Hepatic function panel [facility] Homogenous nuclear A b pattern [Titer] in Serum [facility] Work Phone: Lactate dehydrogenas e [Enzymatic activity/volume] in Unspecified specimen [facility] Lactate dehydrogenas e [Enzymatic activity/volume] in Unspecified specimen [facility] Lactate dehydrogenas e [Enzymatic activity/volume] in Unspecified specimen [facility] Lactate dehydrogenas e [Enzymatic activity/volume] in Unspecified specimen [facility] Lactate dehydrogenas e [Enzymatic activity/volume] in Unspecified specimen [facility] Lipase measurement [facility] Lipase measurement [facility] Lipase measurement [facility] Nuclear Ab [Titer] in Serum [facility] Work Phone: Patient Education [facility] Work Phone: Thyrotropin [Units/v olume] in Serum or Plasma [facility] Thyrotropin [Units/v olume] in Serum or Plasma [facility] Thyrotropin [Units/v olume] in Serum or Plasma [facility] Thyrotropin [Units/v olume] in Serum or Plasma [facility] Thyrotropin [Units/v olume] in Serum or Plasma [facility] Thyrotropin [Units/v olume] in Serum or Plasma [facility] Thyrotropin [Units/v olume] in Serum or Plasma [facility] Thyroxine (T4) free [Mass/volume] in Serum or Plasma [facility] Thyroxine (T4) free [Mass/volume] in Serum or Plasma [facility] Work Phone: Thyroxine (T4) free [Mass/volume] in Serum or Plasma [facility] Thyroxine (T4) free [Mass/volume] in Serum or Plasma [facility] Thyroxine (T4) free [Mass/volume] in Serum or Plasma [facility] Thyroxine (T4) free [Mass/volume] in Serum or Plasma [facility] Ultrasonic guidance for needle biopsy [facility] [place] Immunizations Immunization Date Immunization Notes Care Provider Cindi babcock 1945 pneumococcal conjuga te vaccine, 7 valent Quentni Fitzpatrick Dept. of Dermatology Payers Date Payer Category Payer Self-pay [id number] Private Health Insurance [id number] 1945 Unknown [id number] 1945 Unknown [id number] 1945 Unknown [id number] 1945 Unknown [id number] 1945 Unknown [id number] 1945 Unknown [id number] 1945 Unknown [id number] 1945 Unknown [id number] Medicare [id number] Unknown Unknown HCAP/HFA/FAP Active [id number] Unknown [id number] Social History Date Type Detail Facility Start: 10-23-2020 Dept. of D ermatology Start: 1945 Sex Assigned At Female F [facility] Start: 10-07-2021 End: 03-06-2023 Tobacco smoking status NHIS Never smoked tobacco (finding) [facility] Sex Assigned At Sex Assigned At Bir th [facility] Other Goals Date Patient Goal Desired Activity /State Clinical Notes 12-04-2012 to 02-13-2023 Note Date & Type Note Facility 02-13-2023 Progress note Note Date/Time January 27, 2023 3:58pm [facility] [address] [place] [address] Progress Note Signed Patient: Threesa Luu MR#: [id number] : 1945 Acct:[id number] Age/Sex: 77 / F Adm Date: 3 Loc: Room: Type: [facility] Attending Dr: Sly Benson II DO Copies to: ~ Date of Service: 01/27/2023 Subjective History of Present Illness HPI: Madison is seen during immunotherapy today and we continue our discussion of goals of care/advance care planning. She has reviewed the making choices booklet and is planning to meet with an transactional attorney to complete financial POA and business matters as well as HCPOA and Living Will. We discussed preferences for resuscitation and Madison says that she would never want chest compressions, defibrillation or intubation and ventilation. She agrees to DNR CCA without intubation order and this is completed today with the original and a copy provided to patient. Exam Physical Exam Vital Signs: Temp Pulse Resp BP Pulse Ox O2 Del Method 97.5 F L 90 18 159/80 H 96 Room Air 01/27/23 10:01/27/23 10:01/27/23 10:01/27/23 10:01/27/23 10:01/27/23 10:23 Patient was seen by Kristen Lacy, nurse practitioner. I reviewed the above note. Documented By: Kimber Lacy APRN 01/27/23 2536 Signed By: <Electronically signed by ANTOINETTE Lacy> 01/27/23 1558 <Electronically signed by DO Efren Burris> 02/13/23 1507 [facility] Work Phone: [phone] 787-284807-18-2023 Evaluation note* Encounter Date Diagnosis Assessment Notes Treatment Notes Treatment Clinical Notes Jan, Insomnia (ICD-10 - G47.00) Bedtime routine and good sleep hygiene discussed Jan, Malignant melanoma (ICD-10 - C43.9) Metastatic with stable disease currently, on nivolumab Jan, Advanced care planning/counselin g discussion (ICD-10 - Z71.89) 15-minute of encounter was spent discussing goals of care/advance care planning. Madison states she would never want CPR with intubation/ventila tion and DNR CCA without intubation order is completed with original and a copy of the order given to the patient. [employer] Other 06-20-2023 Progress note Author Senia Montez [facility] December 30, 2022 11:06am Note Date/Time December 30, 2022 8:35 am [facility] [place] [address] Hem/Onc Follow Up Note - OP Signed Patient: Theresa Luu MR#: [id number] : 1945 Acct:[id number] Age/Sex: 77 / F Type: REG RCR Copies to: DO Alex Acuña MD, II, DO~ Date of Service: 12/30/2022 Time of Service: 08:33 - Assessment & Plan (1) Melanoma Plan: 1.) Metastatic stage IV melanoma - BRAF negative , recurrent in mar 2022, originally T4bN1a stage iiic L ankle. Resected november 2020, not given adjuvant therapy because patient was hesitant and initial consult was 10 months after resection. Repeat imaging in September 2021 showed no evidence of metastatic disease. Recurrent metastatic in mar 2022. pulmonary nodules and recurrent disease in the L groin, left pelvic sidewall. Nivo 3mg/kg every 3wks, Ipilimumab 1mg/kg every 3 weeks. - Completed 4 cycles of combination Ipilimumab + Nivolumab from 05/12/2022- 07/15/[address] scan with doubling of the size of the groin node and pelvic nodule. She had improvement /resolution of the lung nodularity. 08/11/22: Cycle 1 maintenance nivolumab imaging in late october 2022 with improvement in her disease by maybe 25%. continues maint nivo. December 2022 continues to tolerate therapy well without new concerns. will repeat imaging in and f/u after Completed palliative XRT to left inguinal fossa/lymph node in August 2022 withdramatic decrease in size No immunotherapy related toxicities - denies skin rash, diarrhea, stable laboratories No recent infections, cough, chest pain, SOB or weight loss, no new skin lesions Her pelvic sidewall lesion was not radiated, will consider radiating later. (2) Inguinal adenopathy (3) Encounter for antineoplastic immunotherapy Follow Up Instructions: nivo today and continue monthly labs per treatment plan CT scans as already scheduled follow-up after scans as already scheduled - History of Present Illness Chief Complaint: Patient is here today for a 2 month follow u visit for melanomaand has treatment today. No new concerns HPI: 76-year-old female referred for melanoma primary patient of Yoni Muller, pastmedical history includes essential hypertension, basal cell carcinoma on her upper back in September 2020hyperlipidemia, malignant tumor of the breast in September 1996 on the left side she had a mastectomy with no chemotherapy or radiation. Outpatient medications include hydrochlorothiazide and simvastatin. She initially had a left lower leg melanoma removed by Dr. Trammell at [facility] in November 162020 with sentinel node biopsy and 2+ nodes. Dr. Trammell notes that the margin was clear, she had a wide resection of the primary melanoma with 2 cm margins, mitotic rate was 6/m?, margins were negative, she had a skin substitute placement and left inguinal sentinel lymph node biopsy. There was noted and in-transit metastasis, left sentinel lymph nodenoted to have 2+ cells, 2 separate nonsentinel node biopsies were negative. There was 9.5 mm breath lobe depth remaining noted by the wide resection after the initial shave biopsy she was referred for medical oncology but did not schedule. She missed several follow-up appointments with her surgeon and dermatology. Most recently she did follow-up with Dr. Trammell in September 2021. She had had a PET/CT on 10/31/2020 with no evidence of distant metastatic disease. She did have hypermetabolic exophytic soft tissue nodule along the left medial leg, some brightness in the left patellar region, right hand, and several systemic lymph nodes likely reactive. 10/07/21 She gets a little edema in that leg. She has no other issues. Recently saw and has CT scans scheduled for at [facility]. She is doing well, no major medical issues this year once the wound vac was removed from her leg. 10/28/[address] imaging from October 01, 2021 shows no obvious evidence of metastatic disease. Small nonspecific abdominal pelvic and inguinal nodes, 3 cm right ovarian cyst. Punch biopsy performed by Dr. Trammell from September 17, 2021 of the surgical scar and anterior lower leg were both negative for melanoma. 04/21/22 recent c t images with evidence of recurrence. She feels well otherwise. no new complaints. in hindsight had pulmonary nodule previously. She has large palpable mass in her L groin. ct chest abd pelvis from 03/26/22 1. New bilateral pulmonary nodules, largest measuring 1 cm within the left upper lobe suggestive of progression of disease. 2. New prominent to enlarged left pelvic sidewall, left external iliac and inguinal lymph nodes suspicious for progression of disease. Peritoneum/Retroperitoneum:Enlarged left pelvic sidewall lymph node measuring 2 cm in short axis with additional prominent to enlarged lymph nodes are seen along the left external iliac chain as well as the left inguinal region largest measuring 2.2 cm involving the left inguinal region. Surrounding post surgical changes are seen involving the left inguinal region. No free air. No free fluid. 05/02/22 her groin node biopsy was positive for melanoma. she feels well. after the biopsy the node shrunk 50% 06/02/2022 Patient is here for cycle 2, day 1 Ipi/Nivo. Tolerated Cycle 1 well with no untoward side effects for the most part. She reportedly experienced whole body itching without rash the following day after treatment; but this resolved within 1-2 days with Benadryl. She reports mild fatigue, but denies diarrhea, nausea/vomiting or abdominal pain, cough, SOB. Chronic left LE edema. Lymph node is much smaller. 06/23/22 Labs are good. tolerating ipi nivo well without complaint> review of labs without any significant abnormality. sHE STILL gets a bit of a rash for a day or two after her treatment. She states it feels like here is crawling in her skin. lasts maybe 3 days. worse after hot showers. Rufinal really works for this. 08/11/22 She is doing well overall. She notes some tenderness in the L groin, this is more obvious recently. no rash after her treatments but she still gets pruritis. ct c/a/p from 08/08 notes Mediastinum:Thoracic aorta is normal in caliber. Pulmonary trunk appears nondilated. No pleural effusion. No lymphadenopathy. The esophagus is grosslyunremarkable. Small hiatal hernia. Lungs:Multiple solid noncalcified pulmonary nodules are seen within the left lung, largest measuring 8 mm in greatest axial dimension, once measuring 1 cm ingreatest axial dimension within the left upper lobe not seen on series 5 image 104. The right lung nodules appear to have resolved since the prior CT study. Mild bibasilar atelectasis. No pneumothorax, consolidation or pleural effusion. Soft tissues/Bones: Visualized soft tissues surrounding the chest wall demonstrate no acute findings. Osseous structures demonstrate degenerative change. CT abdomen and pelvis: Organs:Liver gallbladder portal vein spleen pancreas and adrenal glands all appear unremarkable. No enhancing renal mass or hydronephrosis. Abdominal aorta appears normal in caliber.[ GI: Distal stomach is grossly unremarkable. Small bowel appears nondilated. Appendix is normal. Left colon diverticulosis.[ Pelvis:[Urinary bladder is grossly unremarkable. IUD is in place. No adnexal mass. Post surgical changes are identified involving left groin region with a presumed enlarged necrotic lymph node measuring 4.9 cm in greatest axial dimension, once measuring 2.2 cm in short axis.] Peritoneum/Retroperitoneum:No free air or free fluid. Enlarged left pelvic sidewall lymph node now measuring 3.8 cm in short axis, once measuring 2 cm in short axis. Additional prominent left external iliac lymph nodes are noted. Abd wall/Bones:Abdominal wall demonstrate no acute findings. Osseous structuresdemonstrate degenerative change. IMPRESSION: Overall, mixed response to therapy is noted. Interval resolution of the right lung nodules compared to the prior study withinterval decrease of the dominant nodule involving the left upper lobe suggestive of response to therapy. No CT evidence of progression of disease within the chest. Interval progression size involving the left inguinal/external iliac lymphadenopathy when compared to the prior study suggestive of progression of disease. 09/08/22 She is doing well overall. no major complaints. Still with pain in the L groin. She see palliative today. She has had dramatic improvement in the groin node palpable there. vazquez d5 fractions of radiation to her L groin node. Her pelvic sidewall lesion was not radiated, will consider radiating later. 10/06/2022 She is doing well overall Completed palliative XRT to left inguinal fossa/lymph node in August 2022 withdramatic decrease in size No immunotherapy related toxicities - denies skin rash, diarrhea, stable laboratories No recent infections, cough, chest pain, SOB or weight loss, no new skin lesions Okay to proceed with maintenance Nivolumab Q28 day dosing today - today is Cycle2 maintenance 11/03/22 She has had recent ct c/a/p with contrast notes maybe 25% reduction in size of her existing pulmonary nodules as well as the pelvic lymphadenopathy consistent with response to therapy. No CT evidence of progression of disease is seen. She is tolerating her immunotherapy well over. No rash no diarrhea. tolerating nivo maintenance. 12/30/22 she is doing well overall, is dealing with allergies currently eating and drinking ok, no n/v/d or belly pain no rash, shortness of breath or chest pain energy is ok other than the day or two after treatment labs stable, continues nivo maintenance - Physical Exam ECOG PS:0 General : patient is alert and oriented to person place and time, no acute distress. Neck: no JVD or thyromegaly. Lymph: no cervical, supraclavicular, axillary adenopathy. Heart: regular rate and rhythm no murmurs rubs or gallops. Abdomen: soft tender centrally, nondistended, no hepatosplenomegaly. Lungs: clear to auscultation bilaterally. No wheezes, rales, rhonchi. Extremities: no clubbing cyanosis Goal of Treatment: Control - Time with Patient Coordination of Care & Counseling Time: Greater than 50% of time spent with patient was for coordination of care (as documented) and [id number] counseling of patient and/or family. [facility] - Medical History Medical History: Medical History (Last Reviewed 04/28/22 @ 08:09 by Bonnie Mistry RN) Basal cell carcinoma left mid upper back Cellulitis Essential hypertension Hyperlipidemia Malignant melanoma left distal lower anterior leg Malignant tumor of breast Skin graft disorder - Surgical History Surgical History: Surgical History (Last Reviewed 04/28/22 @ 08:09 by Bonnie Mistry RN) H/O left mastectomy - Family History Family History: Family History (Last Updated 10/07/21 @ 08:07 by Sheyla Espinoza) Other No significant family history - Social History Smoking Status: Never smoker Substance Use Type: None Additional Data - Additional Objective Data Height/Weight: Height 5 ft 3 in Weight 88.451 kg BSA for Today's Weight 1.99 Vital Signs: 12/30/22 08:26 Temperature 97.8 F Pulse Rate [Right Brachial] 86 Respiratory Rate 16 Blood Pressure [Right Arm] 132/81 02 Sat by Pulse Oximetry 98 Oxygen Delivery Method Room Air Distress Screening: RN Distress Screening Start: 05/06/22 15:57 Freq: Q30D Status: Active Protocol: Document 09/08/22 10:00 AL (Rec: 09/08/22 10:03 AL [id number]) Distress Screening Distress Score: 6 Day to Day Concerns Insurance,Money Physical Concerns Pain,Trouble Sleeping Emotional Concerns Depression,Worry Problems talking or dealing with my: Friends/ co-workers Comments defer to patient navigators Distress Screening Total 6 Distress score of 4 or more discussed Refused with patient? Distress screening follow up: defer to patient navigators - Lab Results Diagram of Most Recent CBC and CMP 10/31/22 08:43 10/31/22 08:43 - Home Medications and Allergies Allergies/Adverse Reactions: Allergies Penicillins Allergy (Verified 12/30/22 08:26) Unknown Reaction Home Medications: Home Medications hydrochlorothiazide 25 mg tablet 25 mg PO DAILY 10/04/21 [History Confirmed 12/30/22] rosuvastatin 10 mg tablet 10 mg PO DAILY 10/04/21 [History Confirmed 12/30/22] Dictated By: Senia Montez APRN DD/ 2 Signed By: <Electronically signed by ANTOINETTE Montez> 12/30/22 [address] [facility] Work Phone: [phone]) 766-266104-24-2023 Progress note Author Sly Benson [facility] November 03, 2022 10:27am Note Date/Time November 03, 2022 10: 22am [facility] [place] [address] Hem/Onc Follow Up Note - OP Signed Patient: Theresa Luu MR#: [id number] : 1945 Acct:[id number] Age/Sex: 77 / F Type: REG RCR Copies to: DO Alex Acuña MD~ Date of Service: 11/03/2022 Time of Service: 10:21 - Assessment & Plan (1) Melanoma Plan: 1.) Metastatic stage IV melanoma - BRAF negative , recurrent in mar 2022, originally [id number] stage iiic L ankle. Resected november 2020, not given adjuvant therapy because patient was hesitant and initial consult was 10 months after resection. Repeat imaging in September 2021 showed no evidence of metastatic disease. Recurrent metastatic in mar 2022. pulmonary nodules and recurrent disease in the L groin, left pelvic sidewall. Nivo 3mg/kg every 3wks, Ipilimumab 1mg/kg every 3 weeks. - Completed 4 cycles of combination Ipilimumab + Nivolumab from 05/12/2022- 07/15/[address] scan with doubling of the size of the groin node and pelvic nodule. She had improvement /resolution of the lung nodularity. 08/11/22: Cycle 1 maintenance nivolumab imaging in late october 2022 with improvement in her dissease by maybe 25%. continues maint nivo. will repeat imaging in and f/u aft. Completed palliative XRT to left inguinal fossa/lymph node in August 2022 withdramatic decrease in size No immunotherapy related toxicities - denies skin rash, diarrhea, stable laboratories No recent infections, cough, chest pain, SOB or weight loss, no new skin lesions Her pelvic sidewall lesion was not radiated, will consider radiating later. (2) Inguinal adenopathy (3) Encounter for antineoplastic immunotherapy Follow Up Instructions: cont monthly nivolumab. f/u with [facility] TECHNICIAN in 2 months. cbc, cmp, tsh monthly. ct c/a/p with contrast in 4 months and f/u with me after. - History of Present Illness Chief Complaint: Patient is here for a one month follow up with labs and scans for review, prior to treatment today. No concerns voiced at this time. HPI: 76-year-old female referred for melanoma primary patient of Yoni Muller, pastmedical history includes essential hypertension, basal cell carcinoma on her upper back in September 2020hyperlipidemia, malignant tumor of the breast in September 1996 on the left side she had a mastectomy with no chemotherapy or radiation. Outpatient medications include hydrochlorothiazide and simvastatin. She initially had a left lower leg melanoma removed by Dr. Trammell at [facility] in November 162020 with sentinel node biopsy and 2+ nodes. Dr. Trammell notes that the margin was clear, she had a wide resection of the primary melanoma with 2 cm margins, mitotic rate was 6/m?, margins were negative, she had a skin substitute placement and left inguinal sentinel lymph node biopsy. There was noted and in-transit metastasis, left sentinel lymph node noted to have 2+ cells, 2 separate nonsentinel node biopsies were negative. There was 9.5 mm breath lobe depth remaining noted by the wide resection after the initial shave biopsy she was referred for medical oncology but did not schedule. She missed several follow-up appointments with her surgeon and dermatology. Most recently she did follow-up with Dr. Trammell in September 2021. She had had a PET/CT on 10/31/2020 with no evidence of distant metastatic disease. She did have hypermetabolic exophytic soft tissue nodule along the left medial leg, some brightness in the left patellar region, right hand, and several systemic lymph nodes likely reactive. 10/07/21 She gets a little edema in that leg. She has no other issues. Recently saw and has CT scans scheduled for at [facility]. She is doing well, no major medical issues this year once the wound vac was removed from her leg. 10/28/[address] imaging from October 01, 2021 shows no obvious evidence of metastatic disease. Small nonspecific abdominal pelvic and inguinal nodes, 3 cm right ovarian cyst. Punch biopsy performed by Dr. Trammell from September 17, 2021 of the surgical scar and anterior lower leg were both negative for melanoma. 04/21/22 recent c t images with evidence of recurrence. She feels well otherwise. no new complaints. in hindsight had pulmonary nodule previously. She has large palpable mass in her L groin. ct chest abd pelvis from 03/26/22 1. New bilateral pulmonary nodules, largest measuring 1 cm within the left upper lobe suggestive of progression of disease. 2. New prominent to enlarged left pelvic sidewall, left external iliac and inguinal lymph nodes suspicious for progression of disease. Peritoneum/Retroperitoneum:Enlarged left pelvic sidewall lymph node measuring 2 cm in short axis with additional prominent to enlarged lymph nodes are seen along the left external iliac chain as well as the left inguinal region largest measuring 2.2 cm involving the left inguinal region. Surrounding post surgical changes are seen involving the left inguinal region. No free air. No free fluid. 05/02/22 her groin node biopsy was positive for melanoma. she feels well. after the biopsy the node shrunk 50% 06/02/2022 Patient is here for cycle 2, day 1 Ipi/Nivo. Tolerated Cycle 1 well with no untoward side effects for the most part. She reportedly experienced whole body itching without rash the following day after treatment; but this resolved within 1-2 days with Benadryl. She reports mild fatigue, but denies diarrhea, nausea/vomiting or abdominal pain, cough, SOB. Chronic left LE edema. Lymph node is much smaller. 06/23/22 Labs are good. tolerating ipi nivo well without complaint> review of labs without any significant abnormality. sHE STILL gets a bit of a rash for a day or two after her treatment. She states it feels like here is crawling in her skin. lasts maybe 3 days. worse after hot showers. Benadryl really works for this. 08/11/22 She is doing well overall. She notes some tenderness in the L groin, this is more obvious recently. no rash after her treatments but she still gets pruritis. ct c/a/p from 08/08 notes Mediastinum:Thoracic aorta is normal in caliber. Pulmonary trunk appears nondilated. No pleural effusion. No lymphadenopathy. The esophagus is grosslyunremarkable. Small hiatal hernia. Lungs:Multiple solid noncalcified pulmonary nodules are seen within the left lung, largest measuring 8 mm in greatest axial dimension, once measuring 1 cm ingreatest axial dimension within the left upper lobe not seen on series 5 image 104. The right lung nodules appear to have resolved since the prior CT study. Mild bibasilar atelectasis. No pneumothorax, consolidation or pleural effusion. Soft tissues/Bones: Visualized soft tissues surrounding the chest wall demonstrate no acute findings. Osseous structures demonstrate degenerative change. CT abdomen and pelvis: Organs:Liver gallbladder portal vein spleen pancreas and adrenal glands all appear unremarkable. No enhancing renal mass or hydronephrosis. Abdominal aorta appears normal in caliber.[ GI: Distal stomach is grossly unremarkable. Small bowel appears nondilated. Appendix is normal. Left colon diverticulosis.[ Pelvis:[Urinary bladder is grossly unremarkable. IUD is in place. No adnexal mass. Post surgical changes are identified involving left groin region with a presumed enlarged necrotic lymph node measuring 4.9 cm in greatest axial dimension, once measuring 2.2 cm in short axis.] Peritoneum/Retroperitoneum:No free air or free fluid. Enlarged left pelvic sidewall lymph node now measuring 3.8 cm in short axis, once measuring 2 cm in short axis. Additional prominent left external iliac lymph nodes are noted. Abd wall/Bones:Abdominal wall demonstrate no acute findings. Osseous structuresdemonstrate degenerative change. IMPRESSION: Overall, mixed response to therapy is noted. Interval resolution of the right lung nodules compared to the prior study withinterval decrease of the dominant nodule involving the left upper lobe suggestive of response to therapy. No CT evidence of progression of disease within the chest. Interval progression size involving the left inguinal/external iliac lymphadenopathy when compared to the prior study suggestive of progression of disease. 09/08/22 She is doing well overall. no major complaints. Still with pain in the L groin. She see palliative today. She has had dramatic improvement in the groin node palpable there. vazquez d5 fractions of radiation to her L groin node. Her pelvic sidewall lesion was not radiated, will consider radiating later. 10/06/2022 She is doing well overall Completed palliative XRT to left inguinal fossa/lymph node in August 2022 withdramatic decrease in size No immunotherapy related toxicities - denies skin rash, diarrhea, stable laboratories No recent infections, cough, chest pain, SOB or weight loss, no new skin lesions Okay to proceed with maintenance Nivolumab Q28 day dosing today - today is Cycle2 maintenance 11/03/[address] has [address] recent [address] c/a/p with contrast notes maybe 25% reduction in size of her existing pulmonary nodules as well as the pelvic lymphadenopathy consistent with response to therapy. No CT evidence of progression of disease is seen. She is tolerating her immunotherapy well over. No rash no diarrhea. tolerating nivo maintenance. - Physical Exam ECOG PS:0 General : patient is alert and oriented to person place and time, no acute distress. Neck: no JVD or thyromegaly. Lymph: no cervical, supraclavicular, axillary adenopathy. Heart: regular rate and rhythm no murmurs rubs or gallops. Abdomen: soft tender centrally, nondistended, no hepatosplenomegaly. Lungs: clear to auscultation bilaterally. No wheezes, rales, rhonchi. Extremities: no clubbing cyanosis Goal of Treatment: Control - Time with Patient Coordination of Care & Counseling Time: Greater than 50% of time spent with patient was for coordination of care (as documented) and [id number] counseling of patient and/or family. [facility] - Medical History Medical History: Medical History (Last Reviewed 04/28/22 @ 08:09 by Bonnie Mistry RN) Basal cell carcinoma left mid upper back Cellulitis Essential hypertension Hyperlipidemia Malignant melanoma left distal lower anterior leg Malignant tumor of breast Skin graft disorder - Surgical History Surgical History: Surgical History (Last Reviewed 04/28/22 @ 08:09 by Bonnie Mistry RN) H/O left mastectomy - Family History Family History: Family History (Last Updated 10/07/21 @ 08:07 by Sheyla Espinoza) Other No significant family history - Social History Smoking Status: Never smoker Substance Use Type: None Additional Data - Additional Objective Data Height/Weight: Height 5 ft 3 in Weight 91.263 kg BSA for Today's Weight 1.99 Vital Signs: 11/03/22 10:11 Temperature 98.4 F Pulse Rate [Right Brachial] 75 Respiratory Rate 20 Blood Pressure [Right Arm] 148/66 H 02 Sat by Pulse Oximetry 98 Oxygen Delivery Method Room Air Distress Screening: RN Distress Screening Start: 05/06/22 15:57 Freq: Q30D Status: Active Protocol: Document 09/08/22 10:00 AL (Rec: 09/08/22 10:03 AL [id number]) Distress Screening Distress Score: 6 Day to Day Concerns Insurance,Money Physical Concerns Pain,Trouble Sleeping Emotional Concerns Depression,Worry Problems talking or dealing with my: Friends/ co-workers Comments defer to patient navigators Distress Screening Total 6 Distress score of 4 or more discussed Refused with patient? Distress screening follow up: defer to patient navigators - Lab Results Diagram of Most Recent CBC and CMP 10/31/22 08:43 10/31/22 08:43 Labs - Last 7 Days 10/31/22 08:43: ACTH 35.2 10/31/22 08:43: PHA Creatinine Clear 54.88, Sodium 141, Potassium 3.8, Chloride 104, Carbon Dioxide 28.6, Anion Gap 12.2, BUN 19, Creatinine 0.93, Est GFR (CKD-EPI) > 60.0, Glucose 100, Calcium 8.9, Total Bilirubin 0.7, AST 28, ALT 22, Alkaline Phosphatase 98, Lactate Dehydrogenase 226, Total Protein 6.9, Albumin 4.0, Globulin 2.9, Albumin/Globulin Ratio 1.4, Free T4 1.02, TSH 3rd Generation 2.49 10/31/22 08:43: Corrected WBC 6.8, Uncorrected WBC Count 6.8, RBC 4.70, Hgb 14.0, Hct 41.3, MCV 87.8, MCH 29.7, MCHC 33.8, RDW 15.0, Plt Count 201, MPV 7.1,Neut % (Auto) 59.6, Lymph % (Auto) 26.5, [place] % (Auto) 11.2, Eos % (Auto) 1.8, Baso % (Auto) 0.9, Nucleat RBC Rel Count 0.0, Neut # (Auto) 4.0, Lymph # (Auto) 1.8, [place] # (Auto) 0.8, Eos # (Auto) 0.1, Baso # (Auto) 0.1 - Home Medications and Allergies Allergies/Adverse Reactions: Allergies Penicillins Allergy (Verified 10/06/22 10:21) Unknown Reaction Home Medications: Home Medications hydrochlorothiazide 25 mg tablet 25 mg PO DAILY 10/04/21 [History Confirmed 10/06/22] rosuvastatin 10 mg tablet 10 mg PO DAILY 10/04/21 [History Confirmed 10/06/22] Dictated By: Sly Benson II, DO DD/ 1021 Signed By: <Electronically signed by Sly Benson II, DO> 11/03/22 [address] [facility] Work Phone: [phone]) 425-865903-27-2023 Progress note Author Zenobia Parker [facility] October 06, 2022 11:42am Note Date/Time October 06, 2022 11: 28am [facility] [place] [id number] Hem/Onc Follow Up Note - OP Signed Patient: Theresa Luu MR#: [id number] : 1945 Acct:[id number] Age/Sex: 77 / F Type: REG RCR Copies to: DO Alex Acuña MD~ Subjective Date/Time of Service: Date of Service: 10/06/2022 Time of Service: :27 Chief Complaint: Patient is here today for 5 week follow up visit for melanoma and go over outside labs HPI: 76-year-old female referred for melanoma primary patient of Yoni Muller, pastmedical history includes essential hypertension, basal cell carcinoma on her upper back in September 2020hyperlipidemia, malignant tumor of the breast in September 1996 on the left side she had a mastectomy with no chemotherapy or radiation. Outpatient medications include hydrochlorothiazide and simvastatin. She initially had a left lower leg melanoma removed by Dr. Trammell at [facility] in November 162020 with sentinel node biopsy and 2+ nodes. Dr. Trammell notes that the margin was clear, she had a wide resection of the primary melanoma with 2 cm margins, mitotic rate was 6/m?, margins were negative, she had a skin substitute placement and left inguinal sentinel lymph node biopsy. There was noted and in-transit metastasis, left sentinel lymph node noted to have 2+ cells, 2 separate nonsentinel node biopsies were negative. There was 9.5 mm breath lobe depth remaining noted by the wide resection after the initial shave biopsy she was referred for medical oncology but did not schedule. She missed several follow-up appointments with her surgeon and dermatology. Most recently she did follow-up with Dr. Trammell in September 2021. She had had a PET/CT on 10/31/2020 with no evidence of distant metastatic disease. She did have hypermetabolic exophytic soft tissue nodule along the left medial leg, some brightness in the left patellar region, right hand, and several systemic lymph nodes likely reactive. 10/07/21 She gets a little edema in that leg. She has no other issues. Recently saw and has CT scans scheduled for at [facility]. She is doing well, no major medical issues this year once the wound vac was removed from her leg. 10/28/[address] imaging from October 01, 2021 shows no obvious evidence of metastatic disease. Small nonspecific abdominal pelvic and inguinal nodes, 3 cm right ovarian cyst. Punch biopsy performed by Dr. Trammell from September 17, 2021 of the surgical scar and anterior lower leg were both negative for melanoma. 04/21/22 recent c t images with evidence of recurrence. She feels well otherwise. no new complaints. in hindsight had pulmonary nodule previously. She has large palpable mass in her L groin. ct chest abd pelvis from 03/26/22 1. New bilateral pulmonary nodules, largest measuring 1 cm within the left upper lobe suggestive of progression of disease. 2. New prominent to enlarged left pelvic sidewall, left external iliac and inguinal lymph nodes suspicious for progression of disease. Peritoneum/Retroperitoneum:Enlarged left pelvic sidewall lymph node measuring 2 cm in short axis with additional prominent to enlarged lymph nodes are seen along the left external iliac chain as well as the left inguinal region largest measuring 2.2 cm involving the left inguinal region. Surrounding post surgical changes are seen involving the left inguinal region. No free air. No free fluid. 05/02/22 her groin node biopsy was positive for melanoma. she feels well. after the biopsy the node shrunk 50% 06/02/2022 Patient is here for cycle 2, day 1 Ipi/Nivo. Tolerated Cycle 1 well with no untoward side effects for the most part. She reportedly experienced whole body itching without rash the following day after treatment; but this resolved within 1-2 days with Benadryl. She reports mild fatigue, but denies diarrhea, nausea/vomiting or abdominal pain, cough, SOB. Chronic left LE edema. Lymph node is much smaller. 06/23/22 Labs are good. tolerating ipi nivo well without complaint> review of labs without any significant abnormality. sHE STILL gets a bit of a rash for a day or two after her treatment. She states it feels like here is crawling in her skin. lasts maybe 3 days. worse after hot showers. Benadryl really works for this. 08/11/22 She is doing well overall. She notes some tenderness in the L groin, this is more obvious recently. no rash after her treatments but she still gets pruritis. ct c/a/p from 08/08 notes Mediastinum:Thoracic aorta is normal in caliber. Pulmonary trunk appears nondilated. No pleural effusion. No lymphadenopathy. The esophagus is grosslyunremarkable. Small hiatal hernia. Lungs:Multiple solid noncalcified pulmonary nodules are seen within the left lung, largest measuring 8 mm in greatest axial dimension, once measuring 1 cm ingreatest axial dimension within the left upper lobe not seen on series 5 image 104. The right lung nodules appear to have resolved since the prior CT study. Mild bibasilar atelectasis. No pneumothorax, consolidation or pleural effusion. Soft tissues/Bones: Visualized soft tissues surrounding the chest wall demonstrate no acute findings. Osseous structures demonstrate degenerative change. CT abdomen and pelvis: Organs:Liver gallbladder portal vein spleen pancreas and adrenal glands all appear unremarkable. No enhancing renal mass or hydronephrosis. Abdominal aorta appears normal in caliber.[ GI: Distal stomach is grossly unremarkable. Small bowel appears nondilated. Appendix is normal. Left colon diverticulosis.[ Pelvis:[Urinary bladder is grossly unremarkable. IUD is in place. No adnexal mass. Post surgical changes are identified involving left groin region with a presumed enlarged necrotic lymph node measuring 4.9 cm in greatest axial dimension, once measuring 2.2 cm in short axis.] Peritoneum/Retroperitoneum:No free air or free fluid. Enlarged left pelvic sidewall lymph node now measuring 3.8 cm in short axis, once measuring 2 cm in short axis. Additional prominent left external iliac lymph nodes are noted. Abd wall/Bones:Abdominal wall demonstrate no acute findings. Osseous structuresdemonstrate degenerative change. IMPRESSION: Overall, mixed response to therapy is noted. Interval resolution of the right lung nodules compared to the prior study withinterval decrease of the dominant nodule involving the left upper lobe suggestive of response to therapy. No CT evidence of progression of disease within the chest. Interval progression size involving the left inguinal/external iliac lymphadenopathy when compared to the prior study suggestive of progression of disease. 09/08/22 She is doing well overall. no major complaints. Still with pain in the L groin. She see palliative today. She has had dramatic improvement in the groin node palpable there. vazquez d5 fractions of radiation to her L groin node. Her pelvic sidewall lesion was not radiated, will consider radiating later. 10/06/2022 She is doing well overall Completed palliative XRT to left inguinal fossa/lymph node in August 2022 withdramatic decrease in size No immunotherapy related toxicities - denies skin rash, diarrhea, stable laboratories No recent infections, cough, chest pain, SOB or weight loss, no new skin lesions Okay to proceed with maintenance Nivolumab Q28 day dosing today - today is Cycle2 maintenance - Summary of Therapies Summary of Therapies: Combination Ipilimumab 1 mg + Nivolumab 3 mg Q 21 days x 4 cycles: 1.) Cycle 1: 05/12/2022 2.) Cycle 2: 06/02/2022 3.) Cycle 3: 06/23/2022 4.) Cycle 4: 07/15/2022 Maintenance Nivolumab Q28 days: 1.) Cycle 1: 08/11/2022 Subjective/ROS - Narrative: As per the HPI, otherwise 10 point review of systems is negative. [facility] - Medical History Medical History: Medical History (Last Reviewed 04/28/22 @ 08:09 by Bonnie Mistry RN) Basal cell carcinoma left mid upper back Cellulitis Essential hypertension Hyperlipidemia Malignant melanoma left distal lower anterior leg Malignant tumor of breast Skin graft disorder - Surgical History Surgical History: Surgical History (Last Reviewed 04/28/22 @ 08:09 by Bonnie Mistry RN) H/O left mastectomy - Family History Family History: Family History (Last Updated 10/07/21 @ 08:07 by Sheyla Espinoza) Other No significant family history - Social History Smoking Status: Never smoker Substance Use Type: None Home Medications & Allergies Allergies Penicillins Allergy (Verified 10/06/22 10:21) Unknown Reaction Home Medications hydrochlorothiazide 25 mg tablet 25 mg PO DAILY 10/04/21 [History Confirmed 10/06/22] rosuvastatin 10 mg tablet 10 mg PO DAILY 10/04/21 [History Confirmed 10/06/22] mometasone 0.1 % topical cream 1 applic topical DAILY #30 grams 09/15/22 [Rx Confirmed 10/06/22] Objective - Resuscitation Status Resuscitation Status: Full Code - Height/Weight Height/Weight: Height 5 ft 3 in Weight 90.265 kg BSA for Today's Weight 1.99 - Vital Signs Vital Signs: 10/06/22 10:22 Temperature 97.8 F Pulse Rate [Right Brachial] 89 Respiratory Rate 16 Blood Pressure [Right Arm] 133/81 02 Sat by Pulse Oximetry 98 Oxygen Delivery Method Room Air - Pain Left Groin Pain Intensity: 0 - Distress Screening Distress Screen Results: Emotional Needs Identified? Yes Support System Family,Friend RN Distress Screening Start: 05/06/22 15:57 Freq: Q30D Status: Active Protocol: Document 09/08/22 10:00 AL (Rec: 09/08/22 10:03 AL [id number]) Distress Screening Distress Score: 6 Day to Day Concerns Insurance,Money Physical Concerns Pain,Trouble Sleeping Emotional Concerns Depression,Worry Problems talking or dealing with my: Friends/ co-workers Comments defer to patient navigators Distress Screening Total 6 Distress score of 4 or more discussed Refused with patient? Distress screening follow up: defer to patient navigators Physical Exam Narrative: PHYSICAL EXAMINATION: GENERAL: Alert, no acute distress. HEENT: Head is normocephalic, atraumatic. No scleral icterus. Oral mucosa is pink and moist. No lesions or exudate. NECK: Supple without adenopathy or thyromegaly. HEART: Regular rate and rhythm. S1 and S2 normal. LUNGS: Lungs clear to auscultation bilaterally. No wheezes or crackles. ABDOMEN: Abdomen soft, nontender, nondistended. No hepatosplenomegaly. Bowel sounds present x4 quadrants. BACK: Full ROM; No CVA tenderness. INTEGUMENTARY/LYMPH: left groin examined; mild residual nodularity with some residual XRT skin associated erythema; significantly regressed following radiation; continue aquaphor; no open lesions EXTREMITIES: Warm and dry. No edema, clubbing or cyanosis. NEUROLOGICAL: No focal or sensory deficits. The patient is alert and oriented x3 - ECOG Performance Status ECOG Score: 0 Results - Labs Labs: Diagram of Most Recent CBC and CMP 08/08/22 09:00 08/08/22 09:00 Assessment and Plan (1) Melanoma 1.) Metastatic stage IV melanoma - BRAF negative , recurrent in mar 2022, originally T4bN1a stage iiic L ankle. Resected november 2020, not given adjuvant therapy because patient was hesitant and initial consult was 10 months after resection. Repeat imaging in September 2021 showed no evidence of metastatic disease. Recurrent metastatic in mar 2022. pulmonary nodules and recurrent disease in the L groin, left pelvic sidewall. Will start Nivo 3mg/kg every 3wks, Ipilimumab 1mg/kg every 3 weeks. will drop ipilimumab after 4 doses 06/02/2022: cycle 2, day 1 Ipi/Nivo. 06/23/22 c3d1. 07/15/[address] c4 [address]. she had [address] scan with doubling of the size of the groin node and pelvic nodule. She had improvement /resolution of the lung nodularity. 08/11/22: Cycle 1 maintenance nivolumab 10/06/2022 She is doing well overall Completed palliative XRT to left inguinal fossa/lymph node in August 2022 withdramatic decrease in size No immunotherapy related toxicities - denies skin rash, diarrhea, stable laboratories No recent infections, cough, chest pain, SOB or weight loss, no new skin lesions Okay to proceed with maintenance Nivolumab Q28 day dosing today - today is Cycle2 maintenance Repeat CT scans chest, abdomen/pelvis in 1 month - will be ~ 3 + months from last set of scans; follow up prior to Cycle 3 maintenance Nivo and review scans 2.) Left groin lymphadenopathy Referred for two large metastatic deposits in groin/pelvis L side. she has had response to presumed metastatic disease in the lungs. she continues to essentially refuse chemotherapy. had 5 fractions of radiation to her L groin node completed in 09/01/21. Her pelvic sidewall lesion was not radiated, will consider radiating later. 3.) Encounter for monitoring antineoplastic immunotherapy - Completed 4 cycles of combination Ipilimumab + Nivolumab from 05/12/2022- 07/15/2022 - Commenced Nivolumab maintenance Q 28 days - Cycle 1, Day 1: 08/11/2022 - Cycle 2, Day1: 09/08/2022 - Cycle 3, Day1: 10/06/2022 (2) Inguinal adenopathy (3) Encounter for antineoplastic immunotherapy - Chemo Plan Goal of Treatment: Control - Time with Patient Time Spent with Patient (Follow Up Visit): 35 minutes Coordination of Care & Counseling Time: Greater than 50% of time spent with patient was for coordination of care (as documented) and [id number] counseling of patient and/or family. Dictated By: Zenobia Parker APRN DD/ [id number] Signed By: <Electronically signed by ANTOINETTE Parker> 10/06/22 [address] [facility] Work Phone: 1(909) 932-337403-20-2023 Progress note Author Bebeto Pandya [facility] September 29, 2022 1:11pm Note Date/Time September 29, 2022 9:4 5am [facility] [place] [address] Rad Onc Follow Up Note - OP Signed Patient: Theresa Luu MR#: [id number] : 1945 Acct:[id number] Age/Sex: 76 / F Type: REG RCR Copies to: DO Alex Acuña MD, II, DO~ Date of Service Service Date: 09/29/22 Assessment & Plan (1) Inguinal adenopathy Plan: Return to clinic as needed Assessment: 76-year-old female with stage IV metastatic melanoma status post combination therapy with Nivo/Ipi now started on maintenance nivolumab. Upon review of her imaging she has had a good response to immunotherapy with resolution of the pulmonary nodules with the exception of a few nodules remaining in the left upper lobe. She recently completed palliative radiation to the left inguinal fossa due to a large bulky lymph williams mass that had continued to grow in size and become painful with concern for ulceration through the skin. She completed 30 Luis in 5 fractions delivered every other day. She returns to clinic today and has recovered well. I recommend Aquaphor for the residual dry desquamation this should also help with the pruritus. She is tolerating her immunotherapy well we will discharge her today in the care of medical oncology. She understands that while there is another pelvic mass this is currently not causing her issue and ideally this will continue to decline in size over time. A decrease in size would allow for better radiation targeting in light of the proximity to the bowel and the need for a hypofractionated course due to histology. She communicated her understanding and will continue to follow with medical oncology for her systemic therapy. Follow Up Note - Narrative 76-year-old female with 3 oncologic diagnoses: 1. basal cell carcinoma on her upper back in September 2020 2. malignant tumor of the breast in September 1996 on the left side > mastectomy with no chemotherapy or radiation 3. Stage IV malignant melanoma Oncologic history She initially had a left lower leg melanoma removed at [facility] in November 162020 with sentinel node biopsy and 2+ nodes. Per the notes, margin wasclear, she had a wide resection of the primary melanoma with 2 cm margins, mitotic rate was 6/m?, margins were negative, she had a skin substitute placement and left inguinal sentinel lymph node biopsy. There was noted and in-transit metastasis, left sentinel lymph node noted to have 2+ cells, 2 separate nonsentinel node biopsies were negative. There was 9.5 mm breath lobe depth remaining noted by the wide resection after the initial shave biopsy she was referred for medical oncology but did not schedule. She missed several follow-up appointments with her surgeon and dermatology. Shedid follow-up with Dr. Trammell in September 2021. She had had a PET/CT on 10/31/2020 with no evidence of distant metastatic disease. She did have hypermetabolic exophytic soft tissue nodule along the left medial leg, some brightness in the left patellar region, right hand, and several systemic lymph nodes likely reactive. It appears the disease progressed in the fall 2021 when she presented with an enlarging left groin nodule. ct chest abd pelvis from 03/26/22 1. New bilateral pulmonary nodules, largest measuring 1 cm within the left upper lobe suggestive of progression of disease. 2. New prominent to enlarged left pelvic sidewall, left external iliac and inguinal lymph nodes suspicious for progression of disease. Peritoneum/Retroperitoneum:Enlarged left pelvic sidewall lymph node measuring 2 cm in short axis with additional prominent to enlarged lymph nodes are seen along the left external iliac chain as well as the left inguinal region largest measuring 2.2 cm involving the left inguinal region. Surrounding post surgical changes are seen involving the left inguinal region. No free air. No free fluid. She was initiated on ipilimumab with ipilimumab every 3 weeks. She was scheduled to get her first maintenance dose of the [place] on August 11, 2022. Her repeat CT scan showed a mixed response. ct c/a/p from 08/08 notes IMPRESSION: Overall, mixed response to therapy is noted. Interval resolution of the right lung nodules compared to the prior study withinterval decrease of the dominant nodule involving the left upper lobe suggestive of response to therapy. No CT evidence of progression of disease within the chest. Interval progression size involving the left inguinal/external iliac lymphadenopathy when compared to the prior study suggestive of progression of disease. September 01, 2022 patient completed palliative radiation to the left inguinal fossa to a dose of 30 Luis in 5 fractions delivered every other day. She tolerated radiation therapy well and pain was well controlled towards the end ofher treatment course. She did experience mild erythema and utilized topical cortisone cream. Since completion she has continued with her nivolumab infusion. She returns to clinic today for routine follow-up. She continues to use the mometasone. She reports pruritus in the area. No significant pain other than irritation depending on the underwear she wears. Physical Exam General: alert and oriented female in no acute distress HEENT: normocephalic, extra ocular movements intact Lungs: normal work of breathing on room air Abdomen: non acute MSK: extremities within normal limits Lymph: Examination of the left groin shows residual dry desquamation and tanningconsistent with the prior radiation field. The left williams mass is no longer palpable. There is no erythema. Patient wears a sanitary napkin in the crease of her groin to help prevent friction with her underwear. Neuro: grossly intact Dictated By: Bebeto Pandya MD DD/ [id number] Signed By: <Electronically signed by Bebeto Pandya MD> 09/29/22 [address] [facility] Work Phone: 1(435) 202-965502-27-2023 Progress note Author Sly Benson [facility] September 08, 2022 10:18am Note Date/Time September 08, 2022 10:08am [facility] [place] [id number] Hem/Onc Follow Up Note - OP Signed Patient: Theresa Luu MR#: [id number] : 1945 Acct:[id number] Age/Sex: 76 / F Type: REG RCR Copies to: DO Alex Acuña MD~ Date of Service: 09/08/2022 Time of Service: 10:04 - Assessment & Plan (1) Melanoma Plan: 1.) Metastatic stage IV melanoma - BRAF negative , recurrent in mar 2022, originally T4bN1a stage iiic L ankle. Resected november 2020, not given adjuvant therapy because patient was hesitant and initial consult was 10 months after resection. Repeat imaging in September 2021 showed no evidence of metastatic disease. Recurrent metastatic in mar 2022. pulmonary nodules and recurrent disease in the L groin, left pelvic sidewall. Will start Nivo 3mg/kg every 3wks, Ipilimumab 1mg/kg every 3 weeks. will drop ipilimumab after 4 doses 06/02/2022: cycle 2, day 1 Ipi/Nivo. 06/23/[address] she [address] scan with doubling of the size of the groin node and pelvic nodule. She had improvement /resolution of the lung nodularity. 08/11/22 to get first maintenance nivo today. 09/08/21 get c2 maintenance nivo. i suggest considering radiation of her two large metastatic deposits in groin/pelvis L side. she has had resposnes to presumed metastatic disease in thelungs. she continues to essentially refuse chemotherapy. had 5 fractions of radiation to her L groin node completed in 09/01/21. Her pelvic sidewall lesion was not radiated, will consider radiating later. Follow Up Instructions: cont nivo. f/u in a month. cbc, cmp, tsh , t4 prior to f/u. - History of Present Illness Chief Complaint: Patient is here for a one month follow up with outside labs forreview, prior to treatment today. Patient reports left groin pain. HPI: 76-year-old female referred for melanoma primary patient of Yoni Muller, pastmedical history includes essential hypertension, basal cell carcinoma on her upper back in September 2020hyperlipidemia, malignant tumor of the breast in September 1996 on the left side she had a mastectomy with no chemotherapy or radiation. Outpatient medications include hydrochlorothiazide and simvastatin. She initially had a left lower leg melanoma removed by Dr. Trammell at [facility] in November 162020 with sentinel node biopsy and 2+ nodes. Dr. Trammell notes that the margin was clear, she had a wide resection of the primary melanoma with 2 cm margins, mitotic rate was 6/m?, margins were negative, she had a skin substitute placement and left inguinal sentinel lymph node biopsy. There was noted and in-transit metastasis, left sentinel lymph node noted to have 2+ cells, 2 separate nonsentinel node biopsies were negative. There was 9.5 mm breath lobe depth remaining noted by the wide resection after the initial shave biopsy she was referred for medical oncology but did not schedule. She missed several follow-up appointments with her surgeon and dermatology. Most recently she did follow-up with Dr. Trammell in September 2021. She had had a PET/CT on 10/31/2020 with no evidence of distant metastatic disease. She did have hypermetabolic exophytic soft tissue nodule along the left medial leg, some brightness in the left patellar region, right hand, and several systemic lymph nodes likely reactive. 10/07/21 She gets a little edema in that leg. She has no other issues. Recently saw and has CT scans scheduled for at [facility]. She is doing well, no major medical issues this year once the wound vac was removed from her leg. 10/28/[address] imaging from October 01, 2021 shows no obvious evidence of metastatic disease. Small nonspecific abdominal pelvic and inguinal nodes, 3 cm right ovarian cyst. Punch biopsy performed by Dr. Trammell from September 17, 2021 of the surgical scar and anterior lower leg were both negative for melanoma. 04/21/22 recent c t images with evidence of recurrence. She feels well otherwise. no new complaints. in hindsight had pulmonary nodule previously. She has large palpable mass in her L groin. ct chest abd pelvis from 03/26/22 1. New bilateral pulmonary nodules, largest measuring 1 cm within the left upper lobe suggestive of progression of disease. 2. New prominent to enlarged left pelvic sidewall, left external iliac and inguinal lymph nodes suspicious for progression of disease. Peritoneum/Retroperitoneum:Enlarged left pelvic sidewall lymph node measuring 2 cm in short axis with additional prominent to enlarged lymph nodes are seen along the left external iliac chain as well as the left inguinal region largest measuring 2.2 cm involving the left inguinal region. Surrounding post surgical changes are seen involving the left inguinal region. No free air. No free fluid. 05/02/22 her groin node biopsy was positive for melanoma. she feels well. after the biopsy the node shrunk 50% 06/02/2022 Patient is here for cycle 2, day 1 Ipi/Nivo. Tolerated Cycle 1 well with no untoward side effects for the most part. She reportedly experienced whole body itching without rash the following day after treatment; but this resolved within 1-2 days with Benadryl. She reports mild fatigue, but denies diarrhea, nausea/vomiting or abdominal pain, cough, SOB. Chronic left LE edema. Lymph node is much smaller. 06/23/22 Labs are good. tolerating ipi nivo well without complaint> review of labs without any significant abnormality. sHE STILL gets a bit of a rash for a day or two after her treatment. She states it feels like here is crawling in her skin. lasts maybe 3 days. worse after hot showers. Benadryl really works for this. 08/11/22 She is doing well overall. She notes some tenderness in the L groin, this is more obvious recently. no rash after her treatments but she still gets pruritis. ct c/a/p from 08/08 notes Mediastinum:Thoracic aorta is normal in caliber. Pulmonary trunk appears nondilated. No pleural effusion. No lymphadenopathy. The esophagus is grosslyunremarkable. Small hiatal hernia. Lungs:Multiple solid noncalcified pulmonary nodules are seen within the left lung, largest measuring 8 mm in greatest axial dimension, once measuring 1 cm ingreatest axial dimension within the left upper lobe not seen on series 5 image 104. The right lung nodules appear to have resolved since the prior CT study. Mild bibasilar atelectasis. No pneumothorax, consolidation or pleural effusion. Soft tissues/Bones: Visualized soft tissues surrounding the chest wall demonstrate no acute findings. Osseous structures demonstrate degenerative change. CT abdomen and pelvis: Organs:Liver gallbladder portal vein spleen pancreas and adrenal glands all appear unremarkable. No enhancing renal mass or hydronephrosis. Abdominal aorta appears normal in caliber.[ GI: Distal stomach is grossly unremarkable. Small bowel appears nondilated. Appendix is normal. Left colon diverticulosis.[ Pelvis:[Urinary bladder is grossly unremarkable. IUD is in place. No adnexal mass. Post surgical changes are identified involving left groin region with a presumed enlarged necrotic lymph node measuring 4.9 cm in greatest axial dimension, once measuring 2.2 cm in short axis.] Peritoneum/Retroperitoneum:No free air or free fluid. Enlarged left pelvic sidewall lymph node now measuring 3.8 cm in short axis, once measuring 2 cm in short axis. Additional prominent left external iliac lymph nodes are noted. Abd wall/Bones:Abdominal wall demonstrate no acute findings. Osseous structuresdemonstrate degenerative change. IMPRESSION: Overall, mixed response to therapy is noted. Interval resolution of the right lung nodules compared to the prior study withinterval decrease of the dominant nodule involving the left upper lobe suggestive of response to therapy. No CT evidence of progression of disease within the chest. Interval progression size involving the left inguinal/external iliac lymphadenopathy when compared to the prior study suggestive of progression of disease. 09/08/22 She is doing well overall. no major complaints. Still with pain in the L groin. She see palliative today. She has had dramatic improvement in the groin node palpable there. vazquez d5 fractions of radiation to her L groin node. Her pelvic sidewall lesion was not radiated, will consider radiating later. - Physical Exam ECOG PS: 0 General : patient is alert and oriented to person place and time, no acute distress. Neck: no JVD or thyromegaly. Lymph: no cervical, supraclavicular, axillary adenopathy. L groin 5-7 cm palpable mass. less superficial now, softer. some erythema on skin after radition. Heart: regular rate and rhythm no murmurs rubs or gallops. Abdomen: soft nontender nondistended, no hepatosplenomegaly. Lungs: cta bl, no wheezes, rales, rhonchi. Extremities: no clubbing cyanosis; 1 + LE edema (chronic) Goal of Treatment: Control - Time with Patient Coordination of Care & Counseling Time: Greater than 50% of time spent with patient was for coordination of care (as documented) and [id number] counseling of patient and/or family. [facility] - Medical History Medical History: Medical History (Last Reviewed 04/28/22 @ 08:09 by Bonnie Mistry RN) Basal cell carcinoma left mid upper back Cellulitis Essential hypertension Hyperlipidemia Malignant melanoma left distal lower anterior leg Malignant tumor of breast Skin graft disorder - Surgical History Surgical History: Surgical History (Last Reviewed 04/28/22 @ 08:09 by Bonnie Mistry RN) H/O left mastectomy - Family History Family History: Family History (Last Updated 10/07/21 @ 08:07 by Sheyla sEpinoza) Other No significant family history - Social History Smoking Status: Never smoker Substance Use Type: None Additional Data - Additional Objective Data Height/Weight: Height 5 ft 3 in Weight 90.2 kg BSA for Today's Weight 1.99 Vital Signs: 09/08/22 09:52 Temperature 97.9 F Pulse Rate [Right Brachial] 78 Respiratory Rate 20 Blood Pressure [Right Arm] 137/82 02 Sat by Pulse Oximetry 97 Oxygen Delivery Method Room Air Distress Screening: RN Distress Screening Start: 05/06/22 15:57 Freq: Q30D Status: Active Protocol: Document 09/08/22 10:00 AL (Rec: 09/08/22 10:03 AL [id number]) Distress Screening Distress Score: 6 Day to Day Concerns Insurance,Money Physical Concerns Pain,Trouble Sleeping Emotional Concerns Depression,Worry Problems talking or dealing with my: Friends/ co-workers Comments defer to patient navigators Distress Screening Total 6 Distress score of 4 or more discussed Refused with patient? Distress screening follow up: defer to patient navigators - Lab Results Diagram of Most Recent CBC and CMP 08/08/22 09:00 08/08/22 09:00 - Home Medications and Allergies Allergies/Adverse Reactions: Allergies Penicillins Allergy (Verified 06/23/22 10:44) Unknown Reaction Home Medications: Home Medications hydrochlorothiazide 25 mg tablet 25 mg PO DAILY 10/04/21 [History Confirmed 09/08/22] rosuvastatin 10 mg tablet 10 mg PO DAILY 10/04/21 [History Confirmed 09/08/22] potassium chloride 20 mEq tablet,extended release 20 meq PO DAILY #30 tabs 08/11/22 [Rx Confirmed 09/08/22] diazepam 5 mg tablet (Valium) 5 mg PO ONCE pain 1 day #10 tabs 08/12/22 [Rx Confirmed 09/08/22] Dictated By: Sly Benson II, DO DD/ 1004 Signed By: <Electronically signed by Sly Benson II, DO> 09/08/22 [address] [facility] Work Phone: 1(349) 231-246401-31-2023 Consult note Author Bebeto Pandya [facility] August 12, 2022 1:39pm Note Date/Time August 12, 2022 8 :51am [facility] [place] [id number] Rad Onc Consult Note - OP Signed Patient: Theresa Luu MR#: [id number] : 1945 Acct:[id number] Age/Sex: 76 / F Type: REG RCR Copies to: DO Alex Acuña MD, II, DO~ Assessment & Plan (1) Inguinal adenopathy Plan: CT simulation-plan for palliative radiation to the left inguinal [id number] Luis in 5 fractions delivered every other day Diazepam 5 mg [address] simulation Assessment: 76-year-old female with stage IV metastatic melanoma status post combination therapy with Nivo/Ipi now started on maintenance nivolumab. Upon review of her imaging she has had a good response to immunotherapy with resolution of the pulmonary nodules with the exception of a few nodules remaining in the left upper lobe. I am concerned regarding the large left inguinal williams mass which appears to have grown significantly in a short time and may ulcerate through theskin. I recommend palliative radiation for disease control and pain relief to adose of 30 Luis in 5 fractions delivered every other day. Regarding the pelvic lymphadenopathy and is currently not affecting patient's quality of life. Is melanoma typically responds better to hypofractionation dueto its inherent radial resistance I recommend we continue to monitor the pelvic lesion. Once patient has completed her palliative radiation to the left groin can consider a second course to the left pelvic lesion however need to consider the dose received by the bowel. Consider treating both lesions however due to the large radiation field required we would need to use a lower dose per fraction and I am concerned that melanoma would not be responsive. Patient has back pain when lying supine. We will start diazepam to ensure she is comfortable for the duration of the CT simulation. I also asked that she use2 extra strength Tylenol tablets prior to simulation and treatment. Dosing reviewed questions answered. I provided a general overview of radiation treatment planning and delivery. We discussed the need for immobilization and CT simulation. Short and long-term side effects were reviewed in detail and her questions were answered. She was consented to receive care HPI Date of Service: 08/12/22 HPI: 76-year-old female with 3 oncologic diagnoses: 1. basal cell carcinoma on her upper back in September 2020 2. malignant tumor of the breast in September 1996 on the left side > mastectomy with no chemotherapy or radiation 3. Stage IV malignant melanoma Oncologic history She initially had a left lower leg melanoma removed at [facility] in November 162020 with sentinel node biopsy and 2+ nodes. Per the notes, margin wasclear, she had a wide resection of the primary melanoma with 2 cm margins, mitotic rate was 6/m?, margins were negative, she had a skin substitute placement and left inguinal sentinel lymph node biopsy. There was noted and in-transit metastasis, left sentinel lymph node noted to have 2+ cells, 2 separate nonsentinel node biopsies were negative. There was 9.5 mm breath lobe depth remaining noted by the wide resection after the initial shave biopsy she was referred for medical oncology but did not schedule. She missed several follow-up appointments with her surgeon and dermatology. Shedid follow-up with Dr. Trammell in September 2021. She had had a PET/CT on 10/31/2020 with no evidence of distant metastatic disease. She did have hypermetabolic exophytic soft tissue nodule along the left medial leg, some brightness in the left patellar region, right hand, and several systemic lymph nodes likely reactive. It appears the disease progressed in the fall 2021 when she presented with an enlarging left groin nodule. ct chest abd pelvis from 03/26/22 1. New bilateral pulmonary nodules, largest measuring 1 cm within the left upper lobe suggestive of progression of disease. 2. New prominent to enlarged left pelvic sidewall, left external iliac and inguinal lymph nodes suspicious for progression of disease. Peritoneum/Retroperitoneum:Enlarged left pelvic sidewall lymph node measuring 2 cm in short axis with additional prominent to enlarged lymph nodes are seen along the left external iliac chain as well as the left inguinal region largest measuring 2.2 cm involving the left inguinal region. Surrounding post surgical changes are seen involving the left inguinal region. No free air. No free fluid. She was initiated on ipilimumab with ipilimumab every 3 weeks. She was scheduled to get her first maintenance dose of the [place] on August 11, 2022. Her repeat CT scan showed a mixed response. ct c/a/p from 08/08 notes IMPRESSION: Overall, mixed response to therapy is noted. Interval resolution of the right lung nodules compared to the prior study withinterval decrease of the dominant nodule involving the left upper lobe suggestive of response to therapy. No CT evidence of progression of disease within the chest. Interval progression size involving the left inguinal/external iliac lymphadenopathy when compared to the prior study suggestive of progression of disease. Today she reports the left groin node is painful. It does irritate when she wears her underwear. She is currently not taking anything other than the occasional ibuprofen. She denies any other pelvic complaints. [facility] - Medical History Medical History: Medical History (Last Reviewed 04/28/22 @ 08:09 by Bonnie Mistry RN) Basal cell carcinoma left mid upper back Cellulitis Essential hypertension Hyperlipidemia Malignant melanoma left distal lower anterior leg Malignant tumor of breast Skin graft disorder - Surgical History Surgical History: Surgical History (Last Reviewed 04/28/22 @ 08:09 by Bonnie Mistry RN) H/O left mastectomy - Family History Family History: Family History (Last Updated 10/07/21 @ 08:07 by Sheyla Espinoza) Other No significant family history - Social History Smoking Status: Never smoker Substance Use Type: None Home Medications & Allergies Allergies Penicillins Allergy (Verified 06/23/22 10:44) Unknown Reaction Home Medications hydrochlorothiazide 25 mg tablet 25 mg PO DAILY 10/04/21 [History Confirmed 08/11/22] rosuvastatin 10 mg tablet 10 mg PO DAILY 10/04/21 [History Confirmed 08/11/22] potassium chloride 20 mEq tablet,extended release 20 meq PO DAILY #30 tabs 08/11/22 [Rx] Subjective ROS: I reviewed the 12-point Review of Systems with the patient as per our standard questionnaire. Objective Height 5 ft 3 in Weight 89.4 kg Temp 97.4 F L 08/11/22 10:28 Pulse 82 08/11/22 10:28 Resp 20 08/11/22 10:28 BP 132/68 08/11/22 10:28 Pulse Ox 98 08/11/22 10:28 O2 Del Method Room Air 08/11/22 10:28 Pain: 0/10 Distress Screen Results: Emotional Needs Identified? Yes Support System Friend Ineffective Coping Symptoms History of Chronic Illness Karnofsky Performance Scale: 90%: Can perform normal activity, minor signs of disease Physical Exam: Physical Exam General: alert and oriented elderly female in no acute distress HEENT: normocephalic, extra ocular movements intact Lungs: normal work of breathing on room air Abdomen: non acute MSK: extremities within normal limits Lymph: Exam shows palpable lymphadenopathy in the left groin extending approximately 8 cm in length. There is an area of hyperpigmentation consistent with melanoma inferiorly with a very superficial area of excoriation. Right groin appears negative. Moving superior I am able to palpate the left ASIS immediately medial is the palpable pelvic mass which is firm hard and well-circumscribed. Neuro: grossly intact Results CBC & Chem 7: 08/08/22 09:00 08/08/22 09:00 Dictated By: Bbeeto Pandya MD DD/ [id number] Signed By: <Electronically signed by Bebeto Pandya MD> 08/12/22 [address] [facility] Work Phone: 1(610) 616-726201-30-2023 Progress note Author Sly Benson [facility] August 11, 2022 11:03am Note Date/Time August 11, 2022 1 0:48am [facility] [place] [address] Hem/Onc Follow Up Note - OP Signed Patient: Theresa Luu MR#: [id number] : 1945 Acct:[id number] Age/Sex: 76 / F Type: REG RCR Copies to: DO Alex Acuña MD~ Date of Service: 08/11/2022 Time of Service: 10:46 - Assessment & Plan (1) Melanoma Plan: 1.) Metastatic stage IV melanoma, recurrent in mar 2022, originally T4bN1a stage iiic L ankle. Resected november 2020, not given adjuvant therapy because patient was hesitant and initial consult was 10 months after resection. Repeat imaging in September 2021 showed no evidence of metastatic disease. Recurrent metastatic in mar 2022. pulmonary nodules and recurrent disease in the L groin, left pelvic sidewall. Will start Nivo 3mg/kg every 3wks, Ipilimumab 1mg/kg every 3 weeks. will drop ipilimumab after 4 doses 06/02/2022: cycle 2, day 1 Ipi/Nivo. 06/23/22 c3d1. - BRAF status pending she had ct scan with doubling of the size of the groin node and pelvic nodule. She had improvement /resolution of the lung nodularity. 08/11/22 to get first maintenance nivo today. i suggest considering radiation of her two large metastatic deposits in groin/pelvis L side. she has had resposnese to presumed metastatic disease in the lungs. she continues to essentially refuse chemotherapy. i discussed without radiation she will likely have an open wound here in her groin soon. Follow Up Instructions: NEED BRAF MUTATION RESULTS GONZALO. rad onc eval cont nivo maintance. f/u in 4 weeks. cbc, cmp, tsh t4 on treatment days. - History of Present Illness Chief Complaint: Patient is here for a 6 week follow up with labs and scans for review. No concerns voiced at this time. HPI: 76-year-old female referred for melanoma primary patient of Yoni Muller, pastmedical history includes essential hypertension, basal cell carcinoma on her upper back in September 2020hyperlipidemia, malignant tumor of the breast in September 1996 on the left side she had a mastectomy with no chemotherapy or radiation. Outpatient medications include hydrochlorothiazide and simvastatin. She initially had a left lower leg melanoma removed by Dr. Trammell at [facility] in November 162020 with sentinel node biopsy and 2+ nodes. Dr. Trammell notes that the margin was clear, she had a wide resection of the primary melanoma with 2 cm margins, mitotic rate was 6/m?, margins were negative, she had a skin substitute placement and left inguinal sentinel lymph node biopsy. There was noted and in-transit metastasis, left sentinel lymph node noted to have 2+ cells, 2 separate nonsentinel node biopsies were negative. There was 9.5 mm breath lobe depth remaining noted by the wide resection after the initial shave biopsy she was referred for medical oncology but did not schedule. She missed several follow-up appointments with her surgeon and dermatology. Most recently she did follow-up with Dr. Trammell in September 2021. She had had a PET/CT on 10/31/2020 with no evidence of distant metastatic disease. She did have hypermetabolic exophytic soft tissue nodule along the left medial leg, some brightness in the left patellar region, right hand, and several systemic lymph nodes likely reactive. 10/07/21 She gets a little edema in that leg. She has no other issues. Recently saw and has CT scans scheduled for at [facility]. She is doing well, no major medical issues this year once the wound vac was removed from her leg. 10/28/[address] imaging from October 01, 2021 shows no obvious evidence of metastatic disease. Small nonspecific abdominal pelvic and inguinal nodes, 3 cm right ovarian cyst. Punch biopsy performed by Dr. Trammell from September 17, 2021 of the surgical scar and anterior lower leg were both negative for melanoma. 04/21/22 recent c t images with evidence of recurrence. She feels well otherwise. no new complaints. in hindsight had pulmonary nodule previously. She has large palpable mass in her L groin. ct chest abd pelvis from 03/26/22 1. New bilateral pulmonary nodules, largest measuring 1 cm within the left upper lobe suggestive of progression of disease. 2. New prominent to enlarged left pelvic sidewall, left external iliac and inguinal lymph nodes suspicious for progression of disease. Peritoneum/Retroperitoneum:Enlarged left pelvic sidewall lymph node measuring 2 cm in short axis with additional prominent to enlarged lymph nodes are seen along the left external iliac chain as well as the left inguinal region largest measuring 2.2 cm involving the left inguinal region. Surrounding post surgical changes are seen involving the left inguinal region. No free air. No free fluid. 05/02/22 her groin node biopsy was positive for melanoma. she feels well. after the biopsy the node shrunk 50% 06/02/2022 Patient is here for cycle 2, day 1 Ipi/Nivo. Tolerated Cycle 1 well with no untoward side effects for the most part. She reportedly experienced whole body itching without rash the following day after treatment; but this resolved within 1-2 days with Benadryl. She reports mild fatigue, but denies diarrhea, nausea/vomiting or abdominal pain, cough, SOB. Chronic left LE edema. Lymph node is much smaller. 06/23/22 Labs are good. tolerating ipi nivo well without complaint> review of labs without any significant abnormality. sHE STILL gets a bit of a rash for a day or two after her treatment. She states it feels like here is crawling in her skin. lasts maybe 3 days. worse after hot showers. Benadryl really works for this. 08/11/22 She is doing well overall. She notes some tenderness in the L groin, this is more obvious recently. no rash after her treatments but she still gets pruritis. ct c/a/p from 1/27 notes Mediastinum:Thoracic aorta is normal in caliber. Pulmonary trunk appears nondilated. No pleural effusion. No lymphadenopathy. The esophagus is grosslyunremarkable. Small hiatal hernia. Lungs:Multiple solid noncalcified pulmonary nodules are seen within the left lung, largest measuring 8 mm in greatest axial dimension, once measuring 1 cm ingreatest axial dimension within the left upper lobe not seen on series 5 image 104. The right lung nodules appear to have resolved since the prior CT study. Mild bibasilar atelectasis. No pneumothorax, consolidation or pleural effusion. Soft tissues/Bones: Visualized soft tissues surrounding the chest wall demonstrate no acute findings. Osseous structures demonstrate degenerative change. CT abdomen and pelvis: Organs:Liver gallbladder portal vein spleen pancreas and adrenal glands all appear unremarkable. No enhancing renal mass or hydronephrosis. Abdominal aorta appears normal in caliber.[ GI: Distal stomach is grossly unremarkable. Small bowel appears nondilated. Appendix is normal. Left colon diverticulosis.[ Pelvis:[Urinary bladder is grossly unremarkable. IUD is in place. No adnexal mass. Post surgical changes are identified involving left groin region with a presumed enlarged necrotic lymph node measuring 4.9 cm in greatest axial dimension, once measuring 2.2 cm in short axis.] Peritoneum/Retroperitoneum:No free air or free fluid. Enlarged left pelvic sidewall lymph node now measuring 3.8 cm in short axis, once measuring 2 cm in short axis. Additional prominent left external iliac lymph nodes are noted. Abd wall/Bones:Abdominal wall demonstrate no acute findings. Osseous structuresdemonstrate degenerative change. IMPRESSION: Overall, mixed response to therapy is noted. Interval resolution of the right lung nodules compared to the prior study withinterval decrease of the dominant nodule involving the left upper lobe suggestive of response to therapy. No CT evidence of progression of disease within the chest. Interval progression size involving the left inguinal/external iliac lymphadenopathy when compared to the prior study suggestive of progression of disease. - Physical Exam ECOG PS: 0 General : patient is alert and oriented to person place and time, no acute distress. Neck: no JVD or thyromegaly. Lymph: no cervical, supraclavicular, axillary adenopathy. L groin 7 cm palpable mass. Heart: regular rate and rhythm no murmurs rubs or gallops. Abdomen: soft nontender nondistended, no hepatosplenomegaly. Lungs: cta bl, no wheezes, rales, rhonchi. Extremities: no clubbing cyanosis; 1 + LE edema (chronic) Goal of Treatment: Control - Time with Patient Coordination of Care & Counseling Time: Greater than 50% of time spent with patient was for coordination of care (as documented) and [id number] counseling of patient and/or family. [facility] - Medical History Medical History: Medical History (Last Reviewed 04/28/22 @ 08:09 by Bonnie Mistry RN) Basal cell carcinoma left mid upper back Cellulitis Essential hypertension Hyperlipidemia Malignant melanoma left distal lower anterior leg Malignant tumor of breast Skin graft disorder - Surgical History Surgical History: Surgical History (Last Reviewed 04/28/22 @ 08:09 by Bonnie Mistry RN) H/O left mastectomy - Family History Family History: Family History (Last Updated 10/07/21 @ 08:07 by Sheyla Espinoza) Other No significant family history - Social History Smoking Status: Never smoker Substance Use Type: None Additional Data - Additional Objective Data Height/Weight: Height 5 ft 3 in Weight 89.4 kg BSA for Today's Weight 1.99 Vital Signs: 08/11/22 10:28 Temperature 97.4 F L Pulse Rate [Right Brachial] 82 Respiratory Rate 20 Blood Pressure [Right Arm] 132/68 02 Sat by Pulse Oximetry 98 Oxygen Delivery Method Room Air - Lab Results Diagram of Most Recent CBC and CMP 08/08/22 09:00 08/08/22 09:00 Labs - Last 7 Days 08/08/22 09:00: ACTH 35.2 08/08/22 09:00: PHA Creatinine Clear 55.32, Sodium 139, Potassium 3.3 L, Chloride 102, Carbon Dioxide 29.1, Anion Gap 11.2, BUN 18, Creatinine 0.93, Est GFR ( Amer) > 60, Est GFR (Non-Af Amer) 59, Glucose 101 H, Calcium 9.3, Total Bilirubin 0.7, Direct Bilirubin < 0.1, Indirect Bilirubin TNP, AST 34, ALT32, Alkaline Phosphatase 99 H, Lactate Dehydrogenase 209 H, Total Protein 7.1, Albumin 4.0, Globulin 3.1, Albumin/Globulin Ratio 1.3, Lipase 33.0, Free T4 0.99, TSH 3rd Generation 2.80, Total Cortisol 11.8 08/08/22 09:00: Corrected WBC 7.6, Uncorrected WBC Count 7.6, RBC 4.98, Hgb 14.4, Hct 42.9, MCV 86.1, MCH 29.0, MCHC 33.6, RDW 14.7, Plt Count 216, MPV 7.5,Neut % (Auto) 58.6, Lymph % (Auto) 29.6, [place] % (Auto) 9.0, Eos % (Auto) 2.1, Baso % (Auto) 0.7, Nucleat RBC Rel Count 0.1, Neut # (Auto) 4.4, Lymph # (Auto) 2.2, [place] # (Auto) 0.7, Eos # (Auto) 0.2, Baso # (Auto) 0.1 - Home Medications and Allergies Allergies/Adverse Reactions: Allergies Penicillins Allergy (Verified 06/23/22 10:44) Unknown Reaction Home Medications: Home Medications hydrochlorothiazide 25 mg tablet 25 mg PO DAILY 10/04/21 [History Confirmed 08/11/22] rosuvastatin 10 mg tablet 10 mg PO DAILY 10/04/21 [History Confirmed 08/11/22] Dictated By: Sly Benson II, DO DD/ 1046 Signed By: <Electronically signed by Sly Benson II, DO> 08/11/22 [address] [facility] Work Phone: 1(216) 974-423712-12-2022 Progress note Author Sly Benson [facility] June 23, 2022 11:22am Note Date/Time June 23, 2022 11:18am [facility] [place] [address] Hem/Onc Follow Up Note - OP Signed Patient: Theresa Luu MR#: [id number] : 1945 Acct:[id number] Age/Sex: 76 / F Type: REG RCR Copies to: DO Alex Acuña MD~ Date of Service: 06/23/2022 Time of Service: 11:16 - Assessment & Plan (1) Melanoma Plan: 1.) Metastatic stage IV melanoma, recurrent in mar 2022, originally T4bN1a stage iiic L ankle. Resected november 2020, not given adjuvant therapy because patient was hesitant and initial consult was 10 months after resection. Repeat imaging in September 2021 showed no evidence of metastatic disease. Recurrent metastatic in mar 2022. pulmonary nodules and recurrent disease in the L groin, left pelvic sidewall. Will start Nivo 3mg/kg every 3wks, Ipilimumab 1mg/kg every 3 weeks. will drop ipilimumab after 4 doses 06/02/2022: cycle 2, day 1 Ipi/Nivo. 06/23/22 c3d1. - BRAF status pending Follow Up Instructions: check braf status on her tumor. previously requested. f/u in 3 weeks for c4 ipi nivo. ct c/a/p with contrast prior to f/u. cbc cmp, tsh priro to f/u (froylan ok). - History of Present Illness Chief Complaint: Patient is here for a 3 week follow up with outside labs for review, prior to treatment today. No concerns voiced at this time. HPI: 76-year-old female referred for melanoma primary patient of Yoni Muller, pastmedical history includes essential hypertension, basal cell carcinoma on her upper back in September 2020hyperlipidemia, malignant tumor of the breast in September 1996 on the left side she had a mastectomy with no chemotherapy or radiation. Outpatient medications include hydrochlorothiazide and simvastatin. She initially had a left lower leg melanoma removed by Dr. Trammell at [facility] in November 162020 with sentinel node biopsy and 2+ nodes. Dr. Trammell notes that the margin was clear, she had a wide resection of the primary melanoma with 2 cm margins, mitotic rate was 6/m?, margins were negative, she had a skin substitute placement and left inguinal sentinel lymph node biopsy. There was noted and in-transit metastasis, left sentinel lymph node noted to have 2+ cells, 2 separate nonsentinel node biopsies were negative. There was 9.5 mm breath lobe depth remaining noted by the wide resection after the initial shave biopsy she was referred for medical oncology but did not schedule. She missed several follow-up appointments with her surgeon and dermatology. Most recently she did follow-up with Dr. Trammell in September 2021. She had had a PET/CT on 10/31/2020 with no evidence of distant metastatic disease. She did have hypermetabolic exophytic soft tissue nodule along the left medial leg, some brightness in the left patellar region, right hand, and several systemic lymph nodes likely reactive. 10/07/21 She gets a little edema in that leg. She has no other issues. Recently saw and has CT scans scheduled for at [facility]. She is doing well, no major medical issues this year once the wound vac was removed from her leg. 10/28/[address] imaging from October 01, 2021 shows no obvious evidence of metastatic disease. Small nonspecific abdominal pelvic and inguinal nodes, 3 cm right ovarian cyst. Punch biopsy performed by Dr. Trammell from September 17, 2021 of the surgical scar and anterior lower leg were both negative for melanoma. 04/21/22 recent c t images with evidence of recurrence. She feels well otherwise. no new complaints. in hindsight had pulmonary nodule previously. She has large palpable mass in her L groin. ct chest abd pelvis from 03/26/22 1. New bilateral pulmonary nodules, largest measuring 1 cm within the left upper lobe suggestive of progression of disease. 2. New prominent to enlarged left pelvic sidewall, left external iliac and inguinal lymph nodes suspicious for progression of disease. Peritoneum/Retroperitoneum:Enlarged left pelvic sidewall lymph node measuring 2 cm in short axis with additional prominent to enlarged lymph nodes are seen along the left external iliac chain as well as the left inguinal region largest measuring 2.2 cm involving the left inguinal region. Surrounding post surgical changes are seen involving the left inguinal region. No free air. No free fluid. 05/02/22 her groin node biopsy was positive for melanoma. she feels well. after the biopsy the node shrunk 50% 06/02/2022 Patient is here for cycle 2, day 1 Ipi/Nivo. Tolerated Cycle 1 well with no untoward side effects for the most part. She reportedly experienced whole body itching without rash the following day after treatment; but this resolved within 1-2 days with Benadryl. She reports mild fatigue, but denies diarrhea, nausea/vomiting or abdominal pain, cough, SOB. Chronic left LE edema. Lymph node is much smaller. 06/23/22 Labs are good. tolerating ipi nivo well without complaint> review of labs without any significant abnormality. sHE STILL gets a bit of a rash for a day or two after her treatment. She states it feels like here is crawling in her skin. lasts maybe 3 days. worse after hot showers. [employer] really works for this. - Physical Exam ECOG PS: 0 General : patient is alert and oriented to person place and time, no acute distress. Neck: no JVD or thyromegaly. Lymph: no cervical, supraclavicular, axillary adenopathy. L groin 5 cm palpable mass. Heart: regular rate and rhythm no murmurs rubs or gallops. Abdomen: soft nontender nondistended, no hepatosplenomegaly. Lungs: cta bl, no wheezes, rales, rhonchi. Extremities: no clubbing cyanosis; 1 + LE edema (chronic) Goal of Treatment: Control - Time with Patient Coordination of Care & Counseling Time: Greater than 50% of time spent with patient was for coordination of care (as documented) and [id number] counseling of patient and/or family. [facility] - Medical History Medical History: Medical History (Last Reviewed 04/28/22 @ 08:09 by Bonnie Mistry RN) Basal cell carcinoma left mid upper back Cellulitis Essential hypertension Hyperlipidemia Malignant melanoma left distal lower anterior leg Malignant tumor of breast Skin graft disorder - Surgical History Surgical History: Surgical History (Last Reviewed 04/28/22 @ 08:09 by Bonnie Mistry RN) H/O left mastectomy - Family History Family History: Family History (Last Updated 10/07/21 @ 08:07 by Sheyla Espinoza) Other No significant family history - Social History Smoking Status: Never smoker Substance Use Type: None Additional Data - Additional Objective Data Height/Weight: Height 5 ft 3 in Weight 88.6 kg BSA for Today's Weight 2.00 Vital Signs: 06/23/22 10:44 Temperature 97.9 F Pulse Rate [Right Brachial] 80 Respiratory Rate 18 Blood Pressure [Right Arm] 141/74 H 02 Sat by Pulse Oximetry 98 Oxygen Delivery Method Room Air - Home Medications and Allergies Allergies/Adverse Reactions: Allergies Penicillins Allergy (Verified 06/23/22 10:44) Unknown Reaction Home Medications: Home Medications hydrochlorothiazide 25 mg tablet 25 mg PO DAILY 10/04/21 [History Confirmed 06/23/22] rosuvastatin 10 mg tablet 10 mg PO DAILY 10/04/21 [History Confirmed 06/23/22] Dictated By: Slycm Benson II, DO DD/ 1116 Signed By: <Electronically signed by Sly Benson II, DO> 06/23/22 [address] [facility] Work Phone: 1(656) 487-542912-12-2022 Progress note Author Sly Benson [facility] June 23, 2022 11:22am Note Date/Time June 23, 2022 11:18am [facility] [place] [address] Hem/Onc Follow Up Note - OP Signed Patient: Theresa Luu MR#: [id number] : 1945 Acct:[id number] Age/Sex: 76 / F Type: REG RCR Copies to: DO Alex Acuña MD~ Date of Service: 06/23/2022 Time of Service: 11:16 - Assessment & Plan (1) Melanoma Plan: 1.) Metastatic stage IV melanoma, recurrent in mar 2022, originally T4bN1a stage iiic L ankle. Resected november 2020, not given adjuvant therapy because patient was hesitant and initial consult was 10 months after resection. Repeat imaging in September 2021 showed no evidence of metastatic disease. Recurrent metastatic in mar 2022. pulmonary nodules and recurrent disease in the L groin, left pelvic sidewall. Will start Nivo 3mg/kg every 3wks, Ipilimumab 1mg/kg every 3 weeks. will drop ipilimumab after 4 doses 06/02/2022: cycle 2, day 1 Ipi/Nivo. 06/23/22 c3d1. - BRAF status pending Follow Up Instructions: check braf status on her tumor. previously requested. f/u in 3 weeks for c4 ipi nivo. ct c/a/p with contrast prior to f/u. cbc cmp, tsh priro to f/u (froylan ok). - History of Present Illness Chief Complaint: Patient is here for a 3 week follow up with outside labs for review, prior to treatment today. No concerns voiced at this time. HPI: 76-year-old female referred for melanoma primary patient of Yoni Muller, pastmedical history includes essential hypertension, basal cell carcinoma on her upper back in September 2020hyperlipidemia, malignant tumor of the breast in September 1996 on the left side she had a mastectomy with no chemotherapy or radiation. Outpatient medications include hydrochlorothiazide and simvastatin. She initially had a left lower leg melanoma removed by Dr. Trammell at [facility] in November 162020 with sentinel node biopsy and 2+ nodes. Dr. Trammell notes that the margin was clear, she had a wide resection of the primary melanoma with 2 cm margins, mitotic rate was 6/m?, margins were negative, she had a skin substitute placement and left inguinal sentinel lymph node biopsy. There was noted and in-transit metastasis, left sentinel lymph node noted to have 2+ cells, 2 separate nonsentinel node biopsies were negative. There was 9.5 mm breath lobe depth remaining noted by the wide resection after the initial shave biopsy she was referred for medical oncology but did not schedule. She missed several follow-up appointments with her surgeon and dermatology. Most recently she did follow-up with Dr. Trammell in September 2021. She had had a PET/CT on 10/31/2020 with no evidence of distant metastatic disease. She did have hypermetabolic exophytic soft tissue nodule along the left medial leg, some brightness in the left patellar region, right hand, and several systemic lymph nodes likely reactive. 10/07/21 She gets a little edema in that leg. She has no other issues. Recently saw and has CT scans scheduled for at [facility]. She is doing well, no major medical issues this year once the wound vac was removed from her leg. 10/28/[address] imaging from October 01, 2021 shows no obvious evidence of metastatic disease. Small nonspecific abdominal pelvic and inguinal nodes, 3 cm right ovarian cyst. Punch biopsy performed by Dr. Trammell from September 17, 2021 of the surgical scar and anterior lower leg were both negative for melanoma. 04/21/22 recent c t images with evidence of recurrence. She feels well otherwise. no new complaints. in hindsight had pulmonary nodule previously. She has large palpable mass in her L groin. ct chest abd pelvis from 03/26/22 1. New bilateral pulmonary nodules, largest measuring 1 cm within the left upper lobe suggestive of progression of disease. 2. New prominent to enlarged left pelvic sidewall, left external iliac and inguinal lymph nodes suspicious for progression of disease. Peritoneum/Retroperitoneum:Enlarged left pelvic sidewall lymph node measuring 2 cm in short axis with additional prominent to enlarged lymph nodes are seen along the left external iliac chain as well as the left inguinal region largest measuring 2.2 cm involving the left inguinal region. Surrounding post surgical changes are seen involving the left inguinal region. No free air. No free fluid. 05/02/22 her groin node biopsy was positive for melanoma. she feels well. after the biopsy the node shrunk 50% 06/02/2022 Patient is here for cycle 2, day 1 Ipi/Nivo. Tolerated Cycle 1 well with no untoward side effects for the most part. She reportedly experienced whole body itching without rash the following day after treatment; but this resolved within 1-2 days with Benadryl. She reports mild fatigue, but denies diarrhea, nausea/vomiting or abdominal pain, cough, SOB. Chronic left LE edema. Lymph node is much smaller. 06/23/22 Labs are good. tolerating ipi nivo well without complaint> review of labs without any significant abnormality. sHE STILL gets a bit of a rash for a day or two after her treatment. She states it feels like here is crawling in her skin. lasts maybe 3 days. worse after hot showers. Benadryl really works for this. - Physical Exam ECOG PS: 0 General : patient is alert and oriented to person place and time, no acute distress. Neck: no JVD or thyromegaly. Lymph: no cervical, supraclavicular, axillary adenopathy. L groin 5 cm palpable mass. Heart: regular rate and rhythm no murmurs rubs or gallops. Abdomen: soft nontender nondistended, no hepatosplenomegaly. Lungs: cta bl, no wheezes, rales, rhonchi. Extremities: no clubbing cyanosis; 1 + LE edema (chronic) Goal of Treatment: Control - Time with Patient Coordination of Care & Counseling Time: Greater than 50% of time spent with patient was for coordination of care (as documented) and [id number] counseling of patient and/or family. [facility] - Medical History Medical History: Medical History (Last Reviewed 04/28/22 @ 08:09 by Bonnie Mistry RN) Basal cell carcinoma left mid upper back Cellulitis Essential hypertension Hyperlipidemia Malignant melanoma left distal lower anterior leg Malignant tumor of breast Skin graft disorder - Surgical History Surgical History: Surgical History (Last Reviewed 04/28/22 @ 08:09 by Bonnie Mistry RN) H/O left mastectomy - Family History Family History: Family History (Last Updated 10/07/21 @ 08:07 by Sheyla Espinoza) Other No significant family history - Social History Smoking Status: Never smoker Substance Use Type: None Additional Data - Additional Objective Data Height/Weight: Height 5 ft 3 in Weight 88.6 kg BSA for Today's Weight 2.00 Vital Signs: 06/23/22 10:44 Temperature 97.9 F Pulse Rate [Right Brachial] 80 Respiratory Rate 18 Blood Pressure [Right Arm] 141/74 H 02 Sat by Pulse Oximetry 98 Oxygen Delivery Method Room Air - Home Medications and Allergies Allergies/Adverse Reactions: Allergies Penicillins Allergy (Verified 06/23/22 10:44) Unknown Reaction Home Medications: Home Medications hydrochlorothiazide 25 mg tablet 25 mg PO DAILY 10/04/21 [History Confirmed 06/23/22] rosuvastatin 10 mg tablet 10 mg PO DAILY 10/04/21 [History Confirmed 06/23/22] Dictated By: Sly Benson II, DO DD/ 1116 Signed By: <Electronically signed by Sly Benson II, DO> 06/23/22 [address] [facility] Work Phone: 1(806) 108-281111-21-2022 Progress note Author Zenobia Parker [facility] June 02, 2022 11:05am Note Date/Time June 02, 2022 11:01am [facility] [place] [address] Hem/Onc Follow Up Note - OP Signed Patient: Theresa Luu MR#: [id number] : 1945 Acct:[id number] Age/Sex: 76 / F Type: REG RCR Copies to: DO Alex Acuña MD~ Subjective Date/Time of Service: Date of Service: 06/02/2022 Time of Service: 10:58 Chief Complaint: Patient is here today for a one month follow up visit for melanoma. No new concerns HPI: 76-year-old female referred for melanoma primary patient of Yoni Prohelena, pastmedical history includes essential hypertension, basal cell carcinoma on her upper back in September 2020hyperlipidemia, malignant tumor of the breast in September 1996 on the left side she had a mastectomy with no chemotherapy or radiation. Outpatient medications include hydrochlorothiazide and simvastatin. She initially had a left lower leg melanoma removed by Dr. Trammell at [facility] in November 162020 with sentinel node biopsy and 2+ nodes. Dr. Trammell notes that the margin was clear, she had a wide resection of the primary melanoma with 2 cm margins, mitotic rate was 6/m?, margins were negative, she had a skin substitute placement and left inguinal sentinel lymph nodebiopsy. There was noted and in-transit metastasis, left sentinel lymph node noted to have 2+ cells, 2 separate nonsentinel node biopsies were negative. There was 9.5 mm breath lobe depth remaining noted by the wide resection after the initial shave biopsy she was referred for medical oncology but did not schedule. She missed several follow-up appointments with her surgeon and dermatology. Most recently she did follow-up with Dr. Trammell in September 2021. She had had a PET/CT on 10/31/2020 with no evidence of distant metastatic disease. She did have hypermetabolic exophytic soft tissue nodule along the left medial leg, some brightness in the left patellar region, right hand, and several systemic lymph nodes likely reactive. 10/07/21 She gets a little edema in that leg. She has no other issues. Recently saw and has CT scans scheduled for at [facility]. She is doing well, no major medical issues this year once the wound vac was removed from her leg. 10/28/[address] imaging from October 01, 2021 shows no obvious evidence of metastatic disease. Small nonspecific abdominal pelvic and inguinal nodes, 3 cm right ovarian cyst. Punch biopsy performed by Dr. Trammell from September 17, 2021 of the surgical scar and anterior lower leg were both negative for melanoma. 04/21/22 recent c t images with evidence of recurrence. She feels well otherwise. no new complaints. in hindsight had pulmonary nodule previously. She has large palpable mass in her L groin. ct chest abd pelvis from 03/26/22 1. New bilateral pulmonary nodules, largest measuring 1 cm within the left upper lobe suggestive of progression of disease. 2. New prominent to enlarged left pelvic sidewall, left external iliac and inguinal lymph nodes suspicious for progression of disease. Peritoneum/Retroperitoneum:Enlarged left pelvic sidewall lymph node measuring 2 cm in short axis with additional prominent to enlarged lymph nodes are seen along the left external iliac chain as well as the left inguinal region largest measuring 2.2 cm involving the left inguinal region. Surrounding post surgical changes are seen involving the left inguinal region. No free air. No free fluid. 05/02/22 her groin node biopsy was positive for melanoma. she feels well. after the biopsy the node shrunk 50% 06/02/2022 Patient is here for cycle 2, day 1 Ipi/Nivo. Tolerated Cycle 1 well with no untoward side effects for the most part. She reportedly experienced whole body itching without rash the following day after treatment; but this resolved within 1-2 days with Benadryl. She reports mild fatigue, but denies diarrhea, nausea/vomiting or abdominal pain, cough, SOB. Chronic left LE edema. Lymph node is much smaller. - Summary of Therapies Summary of Therapies: Combination Ipilimumab 1 mg + Nivolumab 3 mg Q 21 days x 4 cycles: 1.) Cycle 1: 05/12/2022 2.) Cycle 2: 06/02/2022 Subjective/ROS - Narrative: As per the HPI, otherwise 10 point review of systems is negative. [facility] - Medical History Medical History: Medical History (Last Reviewed 04/28/22 @ 08:09 by Bonnie Mistry RN) Basal cell carcinoma left mid upper back Cellulitis Essential hypertension Hyperlipidemia Malignant melanoma left distal lower anterior leg Malignant tumor of breast Skin graft disorder - Surgical History Surgical History: Surgical History (Last Reviewed 04/28/22 @ 08:09 by Bonnie Mistry RN) H/O left mastectomy - Family History Family History: Family History (Last Updated 10/07/21 @ 08:07 by Sheyla Espinoza) Other No significant family history - Social History Smoking Status: Never smoker Substance Use Type: None Home Medications & Allergies Allergies Penicillins Allergy (Verified 06/02/22 10:29) Unknown Reaction Home Medications hydrochlorothiazide 25 mg tablet 25 mg PO DAILY 10/04/21 [History Confirmed 06/02/22] rosuvastatin 10 mg tablet 10 mg PO DAILY 10/04/21 [History Confirmed 06/02/22] Objective - Resuscitation Status Resuscitation Status: Full Code - Height/Weight Height/Weight: Height 5 ft 3 in Weight 89.9 kg BSA for Today's Weight 2.03 - Vital Signs Vital Signs: 06/02/22 10:29 Temperature 97.7 F Pulse Rate [Right Brachial] 92 H Respiratory Rate 16 Blood Pressure [Right Arm] 150/82 H 02 Sat by Pulse Oximetry 97 Oxygen Delivery Method Room Air Physical Exam Narrative: ECOG PS: 0 General : patient is alert and oriented to person place and time, no acute distress. Neck: no JVD or thyromegaly. Lymph: no cervical, supraclavicular, axillary adenopathy. L groin 4 cm palpable mass. Heart: regular rate and rhythm no murmurs rubs or gallops. Abdomen: soft nontender nondistended, no hepatosplenomegaly. Lungs: cta bl, no wheezes, rales, rhonchi. Extremities: no clubbing cyanosis; 1 + LE edema (chronic) - ECOG Performance Status ECOG Score: 1 Assessment and Plan (1) Melanoma 1.) Metastatic stage IV melanoma, recurrent in mar 2022, originally T4bN1a stage iiic L ankle. Resected november 2020, not given adjuvant therapy because patient was hesitant and initial consult was 10 months after resection. Repeat imaging in September 2021 showed no evidence of metastatic disease. Recurrent metastatic in mar 2022. pulmonary nodules and recurrent disease in the L groin, left pelvic sidewall. Will start Nivo 3mg/kg every 3wks, Ipilimumab 1mg/kg every 3 weeks. will drop ipilimumab after 4 doses 06/02/2022: Patient is here for cycle 2, day 1 Ipi/Nivo. Tolerated Cycle 1 well with no untoward side effects for the most part. She reportedly experienced whole body itching without rash the following day after treatment; but this resolved within 1-2 days with Benadryl. She reports mild fatigue, but denies diarrhea, nausea/vomiting or abdominal pain, cough, SOB. Chronic left LE edema. Lymph node is much smaller. - BRAF status pending 2.) Encounter for monitoring immunotherapy - continue/proceed with Cycle 2 today - no significant problems; labs are stable - follow up prior to Cycle 3 on 06/23/2022 with standard labs - Chemo Plan Goal of Treatment: Control - Time with Patient Time Spent with Patient (Follow Up Visit): 25 minutes Coordination of Care & Counseling Time: Greater than 50% of time spent with patient was for coordination of care (as documented) and [id number] counseling of patient and/or family. Dictated By: Zenobia Parker APRN DD/ 1058 Signed By: <Electronically signed by ANTOINETTE Parker> 06/02/22 [address] [facility] Work Phone: 1(695) 475-939011-21-2022 Progress note Author Zenobia Parker [facility] June 02, 2022 11:05am Note Date/Time June 02, 2022 11:01am [facility] [place] [address] Hem/Onc Follow Up Note - OP Signed Patient: Theresa Luu MR#: [id number] : 1945 Acct:[id number] Age/Sex: 76 / F Type: REG RCR Copies to: DO Alex Acuña MD~ Subjective Date/Time of Service: Date of Service: 06/02/2022 Time of Service: 10:58 Chief Complaint: Patient is here today for a one month follow up visit for melanoma. No new concerns HPI: 76-year-old female referred for melanoma primary patient of Yoni Muller, pastmedical history includes essential hypertension, basal cell carcinoma on her upper back in September 2020hyperlipidemia, malignant tumor of the breast in September 1996 on the left side she had a mastectomy with no chemotherapy or radiation. Outpatient medications include hydrochlorothiazide and simvastatin. She initially had a left lower leg melanoma removed by Dr. Trammell at [facility] in November 162020 with sentinel node biopsy and 2+ nodes. Dr. Trammell notes that the margin was clear, she had a wide resection of the primary melanoma with 2 cm margins, mitotic rate was 6/m?, margins were negative, she had a skin substitute placement and left inguinal sentinel lymph nodebiopsy. There was noted and in-transit metastasis, left sentinel lymph node noted to have 2+ cells, 2 separate nonsentinel node biopsies were negative. There was 9.5 mm breath lobe depth remaining noted by the wide resection after the initial shave biopsy she was referred for medical oncology but did not schedule. She missed several follow-up appointments with her surgeon and dermatology. Most recently she did follow-up with Dr. Trammell in September 2021. She had had a PET/CT on 10/31/2020 with no evidence of distant metastatic disease. She did have hypermetabolic exophytic soft tissue nodule along the left medial leg, some brightness in the left patellar region, right hand, and several systemic lymph nodes likely reactive. 10/07/21 She gets a little edema in that leg. She has no other issues. Recently saw and has CT scans scheduled for at [facility]. She is doing well, no major medical issues this year once the wound vac was removed from her leg. 10/28/[address] imaging from October 01, 2021 shows no obvious evidence of metastatic disease. Small nonspecific abdominal pelvic and inguinal nodes, 3 cm right ovarian cyst. Punch biopsy performed by Dr. Trammell from September 17, 2021 of the surgical scar and anterior lower leg were both negative for melanoma. 04/21/22 recent c t images with evidence of recurrence. She feels well otherwise. no new complaints. in hindsight had pulmonary nodule previously. She has large palpable mass in her L groin. ct chest abd pelvis from 03/26/22 1. New bilateral pulmonary nodules, largest measuring 1 cm within the left upper lobe suggestive of progression of disease. 2. New prominent to enlarged left pelvic sidewall, left external iliac and inguinal lymph nodes suspicious for progression of disease. Peritoneum/Retroperitoneum:Enlarged left pelvic sidewall lymph node measuring 2 cm in short axis with additional prominent to enlarged lymph nodes are seen along the left external iliac chain as well as the left inguinal region largest measuring 2.2 cm involving the left inguinal region. Surrounding post surgical changes are seen involving the left inguinal region. No free air. No free fluid. 05/02/22 her groin node biopsy was positive for melanoma. she feels well. after the biopsy the node shrunk 50% 06/02/2022 Patient is here for cycle 2, day 1 Ipi/Nivo. Tolerated Cycle 1 well with no untoward side effects for the most part. She reportedly experienced whole body itching without rash the following day after treatment; but this resolved within 1-2 days with Benadryl. She reports mild fatigue, but denies diarrhea, nausea/vomiting or abdominal pain, cough, SOB. Chronic left LE edema. Lymph node is much smaller. - Summary of Therapies Summary of Therapies: Combination Ipilimumab 1 mg + Nivolumab 3 mg Q 21 days x 4 cycles: 1.) Cycle 1: 05/12/2022 2.) Cycle 2: 06/02/2022 Subjective/ROS - Narrative: As per the HPI, otherwise 10 point review of systems is negative. [facility] - Medical History Medical History: Medical History (Last Reviewed 04/28/22 @ 08:09 by Bonnie Mistry RN) Basal cell carcinoma left mid upper back Cellulitis Essential hypertension Hyperlipidemia Malignant melanoma left distal lower anterior leg Malignant tumor of breast Skin graft disorder - Surgical History Surgical History: Surgical History (Last Reviewed 04/28/22 @ 08:09 by Bonnie Mistry RN) H/O left mastectomy - Family History Family History: Family History (Last Updated 10/07/21 @ 08:07 by Sheyla Espinoza) Other No significant family history - Social History Smoking Status: Never smoker Substance Use Type: None Home Medications & Allergies Allergies Penicillins Allergy (Verified 06/02/22 10:29) Unknown Reaction Home Medications hydrochlorothiazide 25 mg tablet 25 mg PO DAILY 10/04/21 [History Confirmed 06/02/22] rosuvastatin 10 mg tablet 10 mg PO DAILY 10/04/21 [History Confirmed 06/02/22] Objective - Resuscitation Status Resuscitation Status: Full Code - Height/Weight Height/Weight: Height 5 ft 3 in Weight 89.9 kg BSA for Today's Weight 2.03 - Vital Signs Vital Signs: 06/02/22 10:29 Temperature 97.7 F Pulse Rate [Right Brachial] 92 H Respiratory Rate 16 Blood Pressure [Right Arm] 150/82 H 02 Sat by Pulse Oximetry 97 Oxygen Delivery Method Room Air Physical Exam Narrative: ECOG PS: 0 General : patient is alert and oriented to person place and time, no acute distress. Neck: no JVD or thyromegaly. Lymph: no cervical, supraclavicular, axillary adenopathy. L groin 4 cm palpable mass. Heart: regular rate and rhythm no murmurs rubs or gallops. Abdomen: soft nontender nondistended, no hepatosplenomegaly. Lungs: cta bl, no wheezes, rales, rhonchi. Extremities: no clubbing cyanosis; 1 + LE edema (chronic) - ECOG Performance Status ECOG Score: 1 Assessment and Plan (1) Melanoma 1.) Metastatic stage IV melanoma, recurrent in mar 2022, originally T4bN1a stage iiic L ankle. Resected november 2020, not given adjuvant therapy because patient was hesitant and initial consult was 10 months after resection. Repeat imaging in September 2021 showed no evidence of metastatic disease. Recurrent metastatic in mar 2022. pulmonary nodules and recurrent disease in the L groin, left pelvic sidewall. Will start Nivo 3mg/kg every 3wks, Ipilimumab 1mg/kg every 3 weeks. will drop ipilimumab after 4 doses 06/02/2022: Patient is here for cycle 2, day 1 Ipi/Nivo. Tolerated Cycle 1 well with no untoward side effects for the most part. She reportedly experienced whole body itching without rash the following day after treatment; but this resolved within 1-2 days with Benadryl. She reports mild fatigue, but denies diarrhea, nausea/vomiting or abdominal pain, cough, SOB. Chronic left LE edema. Lymph node is much smaller. - BRAF status pending 2.) Encounter for monitoring immunotherapy - continue/proceed with Cycle 2 today - no significant problems; labs are stable - follow up prior to Cycle 3 on 06/23/2022 with standard labs - Chemo Plan Goal of Treatment: Control - Time with Patient Time Spent with Patient (Follow Up Visit): 25 minutes Coordination of Care & Counseling Time: Greater than 50% of time spent with patient was for coordination of care (as documented) and [id number] counseling of patient and/or family. Dictated By: Zenobia Parker APRN DD/ 1058 Signed By: <Electronically signed by ANTOINETTE Parker> 06/02/22 [address] [facility] Work Phone: 1(321) 545-248510-21-2022 Progress note Author Sly Benson [facility] May 02, 2022 4:01pm Note Date/Time May 02, 2022 3 :52pm [facility] [place] at [address] [address] Hem/Onc Follow Up Note - OP Signed Patient: Theresa Luu MR#: [id number] : 1945 Acct:[id number] Age/Sex: 76 / F Type: REG RCR Copies to: DO Alex Acuña MD~ Date of Service: 05/02/2022 Time of Service: 15:49 - Assessment & Plan (1) Melanoma Plan: Metastatic stage IV melanoma, recurrent in mar 2022, originally T4bN1a stage iiic L ankle. Resected november 2020, not given adjuvant therapy because patient was hesitant and initial consult was 10 months after resection. Repeat imaging in September 2021 showed no evidence of metastatic disease. Recurrent metastatic in mar 2022. pulmonary nodules and recurrent disease in the L groin, left pelvic sidewall. Will start Nivo 3mg/kg every 3wks, Ipilimumab 1mg/kg every 3 weeks. will drop ipilimumab after 4 doses will check BRAF status. Follow Up Instructions: start ipi nivo next week f/u with or alejo at c2d1. cbc, cmp, tsh prior to f/u. send BRAF on tumor please. - History of Present Illness Chief Complaint: Patient is here for a 2 week follow up with biopsy 04/28/2022 for review. No concerns voiced at this time. HPI: 76-year-old female referred for melanoma primary patient of Yoni Muller, pastmedical history includes essential hypertension, basal cell carcinoma on her upper back in September 2020hyperlipidemia, malignant tumor of the breast in September 1996 on the left side she had a mastectomy with no chemotherapy or radiation. Outpatient medications include hydrochlorothiazide and simvastatin. She initially had a left lower leg melanoma removed by Dr. Trammell at [facility] in November 162020 with sentinel node biopsy and 2+ nodes. Dr. Trammell notes that the margin was clear, she had a wide resection of the primary melanoma with 2 cm margins, mitotic rate was 6/m?, margins were negative, she had a skin substitute placement and left inguinal sentinel lymph node biopsy. There was noted and in-transit metastasis, left sentinel lymph node noted to have 2+ cells, 2 separate nonsentinel node biopsies were negative. There was 9.5 mm breath lobe depth remaining noted by the wide resection after the initial shave biopsy she was referred for medical oncology but did not schedule. She missed several follow-up appointments with her surgeon and dermatology. Most recently she did follow-up with Dr. Trammell in September 2021. She had had a PET/CT on 10/31/2020 with no evidence of distant metastatic disease. She did have hypermetabolic exophytic soft tissue nodule along the left medial leg, some brightness in the left patellar region, right hand, and several systemic lymph nodes likely reactive. 10/07/21 She gets a little edema in that leg. She has no other issues. Recently saw and has CT scans scheduled for at [facility]. She is doing well, no major medical issues this year once the wound vac was removed from her leg. 10/28/[address] imaging from October 01, 2021 shows no obvious evidence of metastatic disease. Small nonspecific abdominal pelvic and inguinal nodes, 3 cm right ovarian cyst. Punch biopsy performed by Dr. Trammell from September 17, 2021 of the surgical scar and anterior lower leg were both negative for melanoma. 04/21/22 recent c t images with evidence of recurrence. She feels well otherwise. no new complaints. in hindsight had pulmonary nodule previously. She has large palpable mass in her L groin. ct chest abd pelvis from 03/26/22 1. New bilateral pulmonary nodules, largest measuring 1 cm within the left upper lobe suggestive of progression of disease. 2. New prominent to enlarged left pelvic sidewall, left external iliac and inguinal lymph nodes suspicious for progression of disease. Peritoneum/Retroperitoneum:Enlarged left pelvic sidewall lymph node measuring 2 cm in short axis with additional prominent to enlarged lymph nodes are seen along the left external iliac chain as well as the left inguinal region largest measuring 2.2 cm involving the left inguinal region. Surrounding post surgical changes are seen involving the left inguinal region. No free air. No free fluid. 08/02/21 her groin node biopsy was positive for melanoma. she feels well. after the biopsy the node shrunk 50% - Physical Exam ECOG PS: 0 General : patient is alert and oriented to person place and time, no acute distress. Neck: no JVD or thyromegaly. Lymph: no cervical, supraclavicular, axillary adenopathy. L groin 4 to 5 cm palpable mass. Heart: regular rate and rhythm no murmurs rubs or gallops. Abdomen: soft nontender nondistended, no hepatosplenomegaly. Lungs: cta bl, no wheezes, rales, rhonchi. Extremities: no clubbing cyanosis. - Time with Patient Coordination of Care & Counseling Time: Greater than 50% of time spent with patient was for coordination of care (as documented) and [id number] counseling of patient and/or family. [facility] - Medical History Medical History: Medical History (Last Reviewed 04/28/22 @ 08:09 by Bonnie Mistry RN) Basal cell carcinoma left mid upper back Cellulitis Essential hypertension Hyperlipidemia Malignant melanoma left distal lower anterior leg Malignant tumor of breast Skin graft disorder - Surgical History Surgical History: Surgical History (Last Reviewed 04/28/22 @ 08:09 by Bonnie Mistry RN) H/O left mastectomy - Family History Family History: Family History (Last Updated 10/07/21 @ 08:07 by Sheyla Espinoza) Other No significant family history - Social History Smoking Status: Never smoker Substance Use Type: None Additional Data - Additional Objective Data Height/Weight: Height 5 ft 3 in Weight 92.805 kg Vital Signs: 05/02/22 15:07 Pulse Rate [Right Brachial] 87 Respiratory Rate 20 Blood Pressure [Right Arm] 146/83 H 02 Sat by Pulse Oximetry 98 Oxygen Delivery Method Room Air - Home Medications and Allergies Allergies/Adverse Reactions: Allergies Penicillins Allergy (Verified 05/02/22 15:06) Unknown Reaction Home Medications: Home Medications hydrochlorothiazide 25 mg tablet 25 mg PO DAILY 10/04/21 [History Confirmed 04/28/22] rosuvastatin 10 mg tablet 10 mg PO DAILY 10/04/21 [History Confirmed 04/28/22] Dictated By: Sly Benson II, DO DD/ 1549 Signed By: <Electronically signed by Sly Benson II, DO> 05/02/22 [address] [facility] Work Phone: 1(714) 993-669910-21-2022 Progress note Author Sly Benson [facility] May 02, 2022 4:01pm Note Date/Time May 02, 2022 3 :52pm [facility] at [address] [address] Hem/Onc Follow Up Note - OP Signed Patient: Theresa Luu MR#: [id number] : 1945 Acct:[id number] Age/Sex: 76 / F Type: REG RCR Copies to: Yoni G DO Alex Muller MD~ Date of Service: 05/02/2022 Time of Service: 15:49 - Assessment & Plan (1) Melanoma Plan: Metastatic stage IV melanoma, recurrent in mar 2022, originally T4bN1a stage iiic L ankle. Resected november 2020, not given adjuvant therapy because patient was hesitant and initial consult was 10 months after resection. Repeat imaging in September 2021 showed no evidence of metastatic disease. Recurrent metastatic in mar 2022. pulmonary nodules and recurrent disease in the L groin, left pelvic sidewall. Will start Nivo 3mg/kg every 3wks, Ipilimumab 1mg/kg every 3 weeks. will drop ipilimumab after 4 doses will check BRAF status. Follow Up Instructions: start ipi nivo next week f/u with or alejo at c2d1. cbc, cmp, tsh prior to f/u. send BRAF on tumor please. - History of Present Illness Chief Complaint: Patient is here for a 2 week follow up with biopsy 04/28/2022 for review. No concerns voiced at this time. HPI: 76-year-old female referred for melanoma primary patient of Yoni Muller, pastmedical history includes essential hypertension, basal cell carcinoma on her upper back in September 2020hyperlipidemia, malignant tumor of the breast in September 1996 on the left side she had a mastectomy with no chemotherapy or radiation. Outpatient medications include hydrochlorothiazide and simvastatin. She initially had a left lower leg melanoma removed by Dr. Trammell at [facility] in November 162020 with sentinel node biopsy and 2+ nodes. Dr. Trammell notes that the margin was clear, she had a wide resection of the primary melanoma with 2 cm margins, mitotic rate was 6/m?, margins were negative, she had a skin substitute placement and left inguinal sentinel lymph node biopsy. There was noted and in-transit metastasis, left sentinel lymph node noted to have 2+ cells, 2 separate nonsentinel node biopsies were negative. There was 9.5 mm breath lobe depth remaining noted by the wide resection after the initial shave biopsy she was referred for medical oncology but did not schedule. She missed several follow-up appointments with her surgeon and dermatology. Most recently she did follow-up with Dr. Trammell in September 2021. She had had a PET/CT on 10/31/2020 with no evidence of distant metastatic disease. She did have hypermetabolic exophytic soft tissue nodule along the left medial leg, some brightness in the left patellar region, right hand, and several systemic lymph nodes likely reactive. 10/07/21 She gets a little edema in that leg. She has no other issues. Recently saw and has CT scans scheduled for at [facility]. She is doing well, no major medical issues this year once the wound vac was removed from her leg. 10/28/[address] imaging from October 01, 2021 shows no obvious evidence of metastatic disease. Small nonspecific abdominal pelvic and inguinal nodes, 3 cm right ovarian cyst. Punch biopsy performed by Dr. Trammell from September 17, 2021 of the surgical scar and anterior lower leg were both negative for melanoma. 04/21/22 recent c t images with evidence of recurrence. She feels well otherwise. no new complaints. in hindsight had pulmonary nodule previously. She has large palpable mass in her L groin. ct chest abd pelvis from 03/26/22 1. New bilateral pulmonary nodules, largest measuring 1 cm within the left upper lobe suggestive of progression of disease. 2. New prominent to enlarged left pelvic sidewall, left external iliac and inguinal lymph nodes suspicious for progression of disease. Peritoneum/Retroperitoneum:Enlarged left pelvic sidewall lymph node measuring 2 cm in short axis with additional prominent to enlarged lymph nodes are seen along the left external iliac chain as well as the left inguinal region largest measuring 2.2 cm involving the left inguinal region. Surrounding post surgical changes are seen involving the left inguinal region. No free air. No free fluid. 08/02/21 her groin node biopsy was positive for melanoma. she feels well. after the biopsy the node shrunk 50% - Physical Exam ECOG PS: 0 General : patient is alert and oriented to person place and time, no acute distress. Neck: no JVD or thyromegaly. Lymph: no cervical, supraclavicular, axillary adenopathy. L groin 4 to 5 cm palpable mass. Heart: regular rate and rhythm no murmurs rubs or gallops. Abdomen: soft nontender nondistended, no hepatosplenomegaly. Lungs: cta bl, no wheezes, rales, rhonchi. Extremities: no clubbing cyanosis. - Time with Patient Coordination of Care & Counseling Time: Greater than 50% of time spent with patient was for coordination of care (as documented) and [id number] counseling of patient and/or family. [facility] - Medical History Medical History: Medical History (Last Reviewed 04/28/22 @ 08:09 by Bonnie Mistry, CUBA) Basal cell carcinoma left mid upper back Cellulitis Essential hypertension Hyperlipidemia Malignant melanoma left distal lower anterior leg Malignant tumor of breast Skin graft disorder - Surgical History Surgical History: Surgical History (Last Reviewed 04/28/22 @ 08:09 by Bonnie Mistry RN) H/O left mastectomy - Family History Family History: Family History (Last Updated 10/07/21 @ 08:07 by Sheyla Espinoza) Other No significant family history - Social History Smoking Status: Never smoker Substance Use Type: None Additional Data - Additional Objective Data Height/Weight: Height 5 ft 3 in Weight 92.805 kg Vital Signs: 05/02/22 15:07 Pulse Rate [Right Brachial] 87 Respiratory Rate 20 Blood Pressure [Right Arm] 146/83 H 02 Sat by Pulse Oximetry 98 Oxygen Delivery Method Room Air - Home Medications and Allergies Allergies/Adverse Reactions: Allergies Penicillins Allergy (Verified 05/02/22 15:06) Unknown Reaction Home Medications: Home Medications hydrochlorothiazide 25 mg tablet 25 mg PO DAILY 10/04/21 [History Confirmed 04/28/22] rosuvastatin 10 mg tablet 10 mg PO DAILY 10/04/21 [History Confirmed 04/28/22] Dictated By: Sly Benson II, DO DD/ 1549 Signed By: <Electronically signed by Sly Benson II, DO> 05/02/22 [address] [facility] Work Phone: 1([phone]) 337-295510-15-2022 Progress note Author Sly Benson [facility] April 26, 2022 11:51am Note Date/Time April 21, 2022 9 :31am [facility] at [address] [address] Hem/Onc Follow Up Note - OP Signed Patient: Theresa Luu MR#: [id number] : 1945 Acct:[id number] Age/Sex: 76 / F Type: REG RCR Copies to: Yoni MullerDO Alex MD~ Date of Service: 04/21/2022 Time of Service: 09:29 - Assessment & Plan (1) Melanoma Plan: Metastatic stage IV melanoma, recurrent in mar 2022, originally T4bN1a stage iiic L ankle. Resected november 2020, not given adjuvant therapy because patient was hesitant and initial consult was 10 months after resection. Recurrent metastatic in mar 2022. pulmonary nodules and recurrent disease in the L groin, left pelvic sidewall. will offer ipi nivo palliatively, once pathologic confirmation is obtained. USbiopsy is reasonable. dont think we need excisional biopsy. Nivo 1mg/kg every 3wks, Ipilimumab 3mg/kg every 3 weeks. will drop ipilimumab after 4 doses per trial Cornelius et neal [facility] 2019 Repeat imaging in September 2021 showed no evidence of metastatic disease. will likely have to check BRAF status. Follow Up Instructions: f/u after us biopsy L groin. maybe get approved for ipi nivo. check hepatitis profile, BARRETT, ESR, TSH, CBC, CMP soon. - History of Present Illness Chief Complaint: Patient is here for a 6 month follow up with CT of C/A/P for review. Patient states I had a mole removed from my right arm that was positivefor skin cancer last month. HPI: 76-year-old female referred for melanoma primary patient of Yoni Muller, pastmedical history includes essential hypertension, basal cell carcinoma on her upper back in September 2020hyperlipidemia, malignant tumor of the breast in September 1996 on the left side she had a mastectomy with no chemotherapy or radiation. Outpatient medications include hydrochlorothiazide and simvastatin. She initially had a left lower leg melanoma removed by Dr. Trammell at [facility] in November 162020 with sentinel node biopsy and 2+ nodes. Dr. Trammell notes that the margin was clear, she had a wide resection of the primary melanoma with 2 cm margins, mitotic rate was 6/m?, margins were negative, she had a skin substitute placement and left inguinal sentinel lymph node biopsy. There was noted and in-transit metastasis, left sentinel lymph node noted to have 2+ cells, 2 separate nonsentinel node biopsies were negative. There was 9.5 mm breath lobe depth remaining noted by the wide resection after the initial shave biopsy she was referred for medical oncology but did not schedule. She missed several follow-up appointments with her surgeon and dermatology. Most recently she did follow-up with Dr. Trammell in September 2021. She had had a PET/CT on 10/31/2020 with no evidence of distant metastatic disease. She did have hypermetabolic exophytic soft tissue nodule along the left medial leg, some brightness in the left patellar region, right hand, and several systemic lymph nodes likely reactive. 10/07/21 She gets a little edema in that leg. She has no other issues. Recently saw and has CT scans scheduled for at [facility]. She is doing well, no major medical issues this year once the wound vac was removed from her leg. 10/28/[address] imaging from October 01, 2021 shows no obvious evidence of metastatic disease. Small nonspecific abdominal pelvic and inguinal nodes, 3 cm right ovarian cyst. Punch biopsy performed by Dr. Trammell from September 17, 2021 of the surgical scar and anterior lower leg were both negative for melanoma. 04/21/22 recent c t images with evidence of recurrence. She feels well otherwise. no new complaints. in hindsight had pulmonary nodule previously. She has large palpable mass in her L groin. ct chest abd pelvis from 03/26/22 1. New bilateral pulmonary nodules, largest measuring 1 cm within the left upper lobe suggestive of progression of disease. 2. New prominent to enlarged left pelvic sidewall, left external iliac and inguinal lymph nodes suspicious for progression of disease. Peritoneum/Retroperitoneum:Enlarged left pelvic sidewall lymph node measuring 2 cm in short axis with additional prominent to enlarged lymph nodes are seen along the left external iliac chain as well as the left inguinal region largest measuring 2.2 cm involving the left inguinal region. Surrounding post surgical changes are seen involving the left inguinal region. No free air. No free fluid.[ - Physical Exam ECOG PS: 0 General : patient is alert and oriented to person place and time, no acute distress. Neck: no JVD or thyromegaly. Lymph: no cervical, supraclavicular, axillary adenopathy. L groin 4 to 5 cm palpable mass. Heart: regular rate and rhythm no murmurs rubs or gallops. Abdomen: soft nontender nondistended, no hepatosplenomegaly. Lungs: cta bl, no wheezes, rales, rhonchi. Extremities: no clubbing cyanosis. - Time with Patient Coordination of Care & Counseling Time: Greater than 50% of time spent with patient was for coordination of care (as documented) and [id number] counseling of patient and/or family. [facility] - Medical History Medical History: Medical History (Last Reviewed 10/07/21 @ 08:07 by Sheyla Espinoza) Basal cell carcinoma left mid upper back Cellulitis Essential hypertension Hyperlipidemia Malignant melanoma left distal lower anterior leg Malignant tumor of breast Skin graft disorder - Surgical History Surgical History: Surgical History (Last Reviewed 10/07/21 @ 08:07 by Sheyla Espinoza) H/O left mastectomy - Family History Family History: Family History (Last Updated 10/07/21 @ 08:07 by Sheyla Espinoza) Other No significant family history - Social History Smoking Status: Never smoker Substance Use Type: None Additional Data - Additional Objective Data Height/Weight: Height 5 ft 3 in Weight 91.49 kg Vital Signs: 04/21/22 08:54 Temperature 98 F Pulse Rate [Right Brachial] 85 Respiratory Rate 20 Blood Pressure [Right Arm] 161/87 H 02 Sat by Pulse Oximetry 97 Oxygen Delivery Method Room Air - Home Medications and Allergies Allergies/Adverse Reactions: Allergies Penicillins Allergy (Verified 04/21/22 08:54) Unknown Reaction Home Medications: Home Medications hydrochlorothiazide 25 mg tablet 25 mg PO DAILY 10/04/21 [History Confirmed 04/21/22] rosuvastatin 10 mg tablet 10 mg PO DAILY 10/04/21 [History Confirmed 04/21/22] Dictated By: Sly Benson II, DO DD/ 8 Signed By: <Electronically signed by Sly Benson II, DO> 04/26/22 [address] [facility] Work Phone: 1([phone]) 990-669510-15-2022 Progress note Author Sly Benson [facility] October 15th, 2022 11:51am Note Date/Time April 21, 2022 9 :31am [facility] [place] [address] Hem/Onc Follow Up Note - OP Signed Patient: Theresa Luu MR#: [id number] : 1945 Acct:[id number] Age/Sex: 76 / F Type: REG RCR Copies to: Yoni Neo Muller,DO Alex Trammell MD~ Date of Service: 04/21/2022 Time of Service: 09:29 - Assessment & Plan (1) Melanoma Plan: Metastatic stage IV melanoma, recurrent in mar 2022, originally T4bN1a stage iiic L ankle. Resected november 2020, not given adjuvant therapy because patient was hesitant and initial consult was 10 months after resection. Recurrent metastatic in mar 2022. pulmonary nodules and recurrent disease in the L groin, left pelvic sidewall. will offer ipi nivo palliatively, once pathologic confirmation is obtained. USbiopsy is reasonable. dont think we need excisional biopsy. Nivo 1mg/kg every 3wks, Ipilimumab 3mg/kg every 3 weeks. will drop ipilimumab after 4 doses per trial Cornelius et al [place] 2019 Repeat imaging in September 2021 showed no evidence of metastatic disease. will likely have to check BRAF status. Follow Up Instructions: f/u after us biopsy L groin. maybe get approved for ipi nivo. check hepatitis profile, BARRETT, ESR, TSH, CBC, CMP soon. - History of Present Illness Chief Complaint: Patient is here for a 6 month follow up with CT of C/A/P for review. Patient states I had a mole removed from my right arm that was positivefor skin cancer last month. HPI: 76-year-old female referred for melanoma primary patient of Yoni Muller, pastmedical history includes essential hypertension, basal cell carcinoma on her upper back in September 2020hyperlipidemia, malignant tumor of the breast in September 1996 on the left side she had a mastectomy with no chemotherapy or radiation. Outpatient medications include hydrochlorothiazide and simvastatin. She initially had a left lower leg melanoma removed by Dr. Trammell at [facility] in November 162020 with sentinel node biopsy and 2+ nodes. Dr. Trammell notes that the margin was clear, she had a wide resection of the primary melanoma with 2 cm margins, mitotic rate was 6/m?, margins were negative, she had a skin substitute placement and left inguinal sentinel lymph node biopsy. There was noted and in-transit metastasis, left sentinel lymph node noted to have 2+ cells, 2 separate nonsentinel node biopsies were negative. There was 9.5 mm breath lobe depth remaining noted by the wide resection after the initial shave biopsy she was referred for medical oncology but did not schedule. She missed several follow-up appointments with her surgeon and dermatology. Most recently she did follow-up with Dr. Trammell in September 2021. She had had a PET/CT on 10/31/2020 with no evidence of distant metastatic disease. She did have hypermetabolic exophytic soft tissue nodule along the left medial leg, some brightness in the left patellar region, right hand, and several systemic lymph nodes likely reactive. 10/07/21 She gets a little edema in that leg. She has no other issues. Recently saw and has CT scans scheduled for at [facility]. She is doing well, no major medical issues this year once the wound vac was removed from her leg. 10/28/[address] imaging from October 01, 2021 shows no obvious evidence of metastatic disease. Small nonspecific abdominal pelvic and inguinal nodes, 3 cm right ovarian cyst. Punch biopsy performed by Dr. Trammell from September 17, 2021 of the surgical scar and anterior lower leg were both negative for melanoma. 04/21/22 recent c t images with evidence of recurrence. She feels well otherwise. no new complaints. in hindsight had pulmonary nodule previously. She has large palpable mass in her L groin. ct chest abd pelvis from 03/26/22 1. New bilateral pulmonary nodules, largest measuring 1 cm within the left upper lobe suggestive of progression of disease. 2. New prominent to enlarged left pelvic sidewall, left external iliac and inguinal lymph nodes suspicious for progression of disease. Peritoneum/Retroperitoneum:Enlarged left pelvic sidewall lymph node measuring 2 cm in short axis with additional prominent to enlarged lymph nodes are seen along the left external iliac chain as well as the left inguinal region largest measuring 2.2 cm involving the left inguinal region. Surrounding post surgical changes are seen involving the left inguinal region. No free air. No free fluid.[ - Physical Exam ECOG PS: 0 General : patient is alert and oriented to person place and time, no acute distress. Neck: no JVD or thyromegaly. Lymph: no cervical, supraclavicular, axillary adenopathy. L groin 4 to 5 cm palpable mass. Heart: regular rate and rhythm no murmurs rubs or gallops. Abdomen: soft nontender nondistended, no hepatosplenomegaly. Lungs: cta bl, no wheezes, rales, rhonchi. Extremities: no clubbing cyanosis. - Time with Patient Coordination of Care & Counseling Time: Greater than 50% of time spent with patient was for coordination of care (as documented) and [id number] counseling of patient and/or family. [facility] - Medical History Medical History: Medical History (Last Reviewed 10/07/21 @ 08:07 by Sheyla Espinoza) Basal cell carcinoma left mid upper back Cellulitis Essential hypertension Hyperlipidemia Malignant melanoma left distal lower anterior leg Malignant tumor of breast Skin graft disorder - Surgical History Surgical History: Surgical History (Last Reviewed 10/07/21 @ 08:07 by Sheyla Espinoza) H/O left mastectomy - Family History Family History: Family History (Last Updated 10/07/21 @ 08:07 by Sheyla Espinoza) Other No significant family history - Social History Smoking Status: Never smoker Substance Use Type: None Additional Data - Additional Objective Data Height/Weight: Height 5 ft 3 in Weight 91.49 kg Vital Signs: 04/21/22 08:54 Temperature 98 F Pulse Rate [Right Brachial] 85 Respiratory Rate 20 Blood Pressure [Right Arm] 161/87 H 02 Sat by Pulse Oximetry 97 Oxygen Delivery Method Room Air - Home Medications and Allergies Allergies/Adverse Reactions: Allergies Penicillins Allergy (Verified 04/21/22 08:54) Unknown Reaction Home Medications: Home Medications hydrochlorothiazide 25 mg tablet 25 mg PO DAILY 10/04/21 [History Confirmed 04/21/22] rosuvastatin 10 mg tablet 10 mg PO DAILY 10/04/21 [History Confirmed 04/21/22] Dictated By: Sly Benson II, DO DD/ 8 Signed By: <Electronically signed by Sly Benson II, DO> 04/26/22 [address] [facility] Work Phone: 1(113) 791-154604-25-2022 Progress note Author Sly Benson [facility] November 04, 2021 7:49pm Note Date/Time October 25, 2021 9:5 8am [facility] at [address] [address] Hem/Onc Follow Up Note - OP Signed Patient: Theresa Luu MR#: [id number] : 1945 Acct:[id number] Age/Sex: 76 / F Type: REG RCR Copies to: DO Alex Acuña MD~ Date of Service: 10/25/2021 Time of Service: 09:56 - Assessment & Plan (1) Melanoma Plan: T4bN1a stage iiic L ankle. Resected november 2020 intial visit in late september 2021. unclear if adjuvant therapy should still be offered given the time from her resection to our initial visit. Discussed recurrence risk of over 40% at time of resection and adjuvant therapy given immediately after surgery would reduce this to maybe 30%. Repeat imaging in September 2021 showed no evidence of metastatic disease. I discussed with her surgeon and I think that her recurrence risk is lower now that she is 10 months out from her original surgery. Patient is hesitant for additional therapy at this point anyway and was basically refusing it up until now as she refused to come see a medical oncologist. Despite this we discussed consideration of a year of pembolizumab or nivolumab. We have chosen to omit adjuvant therapy given the timeframe. She will get CT scans in 6 months and follow-up afterwards with me. - History of Present Illness Chief Complaint: Patient is here for a 3 week follow up for melan to review CTscans done 10/10/2021. There is outside path and radiology scanned into our system. HPI: 76-year-old female referred for melanoma primary patient of Yoni Muller, pastmedical history includes essential hypertension, basal cell carcinoma on her upper back in September 2020hyperlipidemia, malignant tumor of the breast in September 1996 on the left side she had a mastectomy with no chemotherapy or radiation. Outpatient medications include hydrochlorothiazide and simvastatin. She initially had a left lower leg melanoma removed by Dr. Trammell at [facility] in November 162020 with sentinel node biopsy and 2+ nodes. Dr. Trammell notes that the margin was clear, she had a wide resection of the primary melanoma with 2 cm margins, mitotic rate was 6/m?, margins were negative, she had a skin substitute placement and left inguinal sentinel lymph node biopsy. There was noted and in-transit metastasis, left sentinel lymph node noted to have 2+ cells, 2 separate nonsentinel node biopsies were negative. There was 9.5 mm breath lobe depth remaining noted by the wide resection after the initial shave biopsy she was referred for medical oncology but did not schedule. She missed several follow-up appointments with her surgeon and dermatology. Most recently she did follow-up with Dr. Trammell in September 2021. She had had a PET/CT on 10/31/2020 with no evidence of distant metastatic disease. She did have hypermetabolic exophytic soft tissue nodule along the left medial leg, some brightness in the left patellar region, right hand, and several systemic lymph nodes likely reactive. 10/07/21 She gets a little edema in that leg. She has no other issues. Recently saw and has CT scans scheduled for at [facility]. She is doing well, no major medical issues this year once the wound vac was removed from her leg. 10/28/[address] imaging from October 01, 2021 shows no obvious evidence of metastatic disease. Small nonspecific abdominal pelvic and inguinal nodes, 3 cm right ovarian cyst. Punch biopsy performed by Dr. Trammell from September 17, 2021 of the surgical scar and anterior lower leg were both negative for melanoma. - Physical Exam ECOG PS: 0 General : patient is alert and oriented to person place and time, no acute distress. Neck: no JVD or thyromegaly. Lymph: no cervical, supraclavicular, axillary adenopathy. Heart: regular rate and rhythm no murmurs rubs or gallops. Abdomen: soft nontender nondistended, no hepatosplenomegaly. Lungs: clear to auscultation bilaterally. No wheezes, rales, rhonchi. Extremities: no clubbing cyanosis. - Time with Patient Coordination of Care & Counseling Time: Greater than 50% of time spent with patient was for coordination of care (as documented) and [id number] counseling of patient and/or family. [facility] - Medical History Medical History: Medical History (Last Reviewed 10/07/21 @ 08:07 by Sheyla Espinoza) Basal cell carcinoma left mid upper back Cellulitis Essential hypertension Hyperlipidemia Malignant melanoma left distal lower anterior leg Malignant tumor of breast Skin graft disorder - Surgical History Surgical History: Surgical History (Last Reviewed 10/07/21 @ 08:07 by Sheyla Espinoza) H/O left mastectomy - Family History Family History: Family History (Last Updated 10/07/21 @ 08:07 by Sheyla Espinoza) Other No significant family history - Social History Smoking Status: Never smoker Substance Use Type: None Additional Data - Additional Objective Data Height/Weight: Height 5 ft 3 in Weight 90.945 kg Vital Signs: 10/25/21 09:45 Temperature 98 F Pulse Rate [Right Brachial] 90 Respiratory Rate 20 Blood Pressure [Right Arm] 141/70 H 02 Sat by Pulse Oximetry 98 - Home Medications and Allergies Allergies/Adverse Reactions: Allergies Penicillins Allergy (Verified 10/25/21 09:45) Unknown Reaction Home Medications: Home Medications hydrochlorothiazide 25 mg tablet 25 mg PO DAILY 10/04/21 [History Confirmed 10/25/21] rosuvastatin 10 mg tablet 10 mg PO DAILY 10/04/21 [History Confirmed 10/25/21] Dictated By: Sly Benson II, DO DD/ 0956 Signed By: <Electronically signed by Sly Benson II, DO> 11/04/211948 [facility] Work Phone: 1(922) 957-353904-25-2022 Progress note Author Sly Benson [facility] November 04, 2021 7:49pm Note Date/Time October 25, 2021 9:5 8am [facility] [place] [address] Hem/Onc Follow Up Note - OP Signed Patient: Theresa Luu MR#: [id number] : 1945 Acct:[id number] Age/Sex: 76 / F Type: REG RCR Copies to: DO Alex Acuña MD~ Date of Service: 10/25/2021 Time of Service: 09:56 - Assessment & Plan (1) Melanoma Plan: T4bN1a stage iiic L ankle. Resected november 2020 intial visit in late september 2021. unclear if adjuvant therapy should still be offered given the time from her resection to our initial visit. Discussed recurrence risk of over 40% at time of resection and adjuvant therapy given immediately after surgery would reduce this to maybe 30%. Repeat imaging in September 2021 showed no evidence of metastatic disease. I discussed with her surgeon and I think that her recurrence risk is lower now that she is 10 months out from her original surgery. Patient is hesitant for additional therapy at this point anyway and was basically refusing it up until now as she refused to come see a medical oncologist. Despite this we discussed consideration of a year of pembolizumab or nivolumab. We have chosen to omit adjuvant therapy given the timeframe. She will get CT scans in 6 months and follow-up afterwards with me. - History of Present Illness Chief Complaint: Patient is here for a 3 week follow up for melanom to review CTscans done 10/10/2021. There is outside path and radiology scanned into our system. HPI: 76-year-old female referred for melanoma primary patient of Yoni Muller, pastmedical history includes essential hypertension, basal cell carcinoma on her upper back in September 2020hyperlipidemia, malignant tumor of the breast in September 1996 on the left side she had a mastectomy with no chemotherapy or radiation. Outpatient medications include hydrochlorothiazide and simvastatin. She initially had a left lower leg melanoma removed by Dr. Trammell at [facility] in November 162020 with sentinel node biopsy and 2+ nodes. Dr. Trammell notes that the margin was clear, she had a wide resection of the primary melanoma with 2 cm margins, mitotic rate was 6/m?, margins were negative, she had a skin substitute placement and left inguinal sentinel lymph node biopsy. There was noted and in-transit metastasis, left sentinel lymph node noted to have 2+ cells, 2 separate nonsentinel node biopsies were negative. There was 9.5 mm breath lobe depth remaining noted by the wide resection after the initial shave biopsy she was referred for medical oncology but did not schedule. She missed several follow-up appointments with her surgeon and dermatology. Most recently she did follow-up with Dr. Trammell in September 2021. She had had a PET/CT on 10/31/2020 with no evidence of distant metastatic disease. She did have hypermetabolic exophytic soft tissue nodule along the left medial leg, some brightness in the left patellar region, right hand, and several systemic lymph nodes likely reactive. 10/07/21 She gets a little edema in that leg. She has no other issues. Recently saw and has CT scans scheduled for at [facility]. She is doing well, no major medical issues this year once the wound vac was removed from her leg. 10/28/[address] imaging from October 01, 2021 shows no obvious evidence of metastatic disease. Small nonspecific abdominal pelvic and inguinal nodes, 3 cm right ovarian cyst. Punch biopsy performed by Dr. Trammell from September 17, 2021 of the surgical scar and anterior lower leg were both negative for melanoma. - Physical Exam ECOG PS: 0 General : patient is alert and oriented to person place and time, no acute distress. Neck: no JVD or thyromegaly. Lymph: no cervical, supraclavicular, axillary adenopathy. Heart: regular rate and rhythm no murmurs rubs or gallops. Abdomen: soft nontender nondistended, no hepatosplenomegaly. Lungs: clear to auscultation bilaterally. No wheezes, rales, rhonchi. Extremities: no clubbing cyanosis. - Time with Patient Coordination of Care & Counseling Time: Greater than 50% of time spent with patient was for coordination of care (as documented) and [id number] counseling of patient and/or family. [facility] - Medical History Medical History: Medical History (Last Reviewed 10/07/21 @ 08:07 by Sheyla Espinoza) Basal cell carcinoma left mid upper back Cellulitis Essential hypertension Hyperlipidemia Malignant melanoma left distal lower anterior leg Malignant tumor of breast Skin graft disorder - Surgical History Surgical History: Surgical History (Last Reviewed 10/07/21 @ 08:07 by Sheyla Espinoza) H/O left mastectomy - Family History Family History: Family History (Last Updated 10/07/21 @ 08:07 by Sheyla Espinoza) Other No significant family history - Social History Smoking Status: Never smoker Substance Use Type: None Additional Data - Additional Objective Data Height/Weight: Height 5 ft 3 in Weight 90.945 kg Vital Signs: 10/25/21 09:45 Temperature 98 F Pulse Rate [Right Brachial] 90 Respiratory Rate 20 Blood Pressure [Right Arm] 141/70 H 02 Sat by Pulse Oximetry 98 - Home Medications and Allergies Allergies/Adverse Reactions: Allergies Penicillins Allergy (Verified 10/25/21 09:45) Unknown Reaction Home Medications: Home Medications hydrochlorothiazide 25 mg tablet 25 mg PO DAILY 10/04/21 [History Confirmed 10/25/21] rosuvastatin 10 mg tablet 10 mg PO DAILY 10/04/21 [History Confirmed 10/25/21] Dictated By: Sly Benson II, DO DD/ 0956 Signed By: <Electronically signed by Sly Benson II, DO> 11/04/211948 [facility] Work Phone: 1(350) 233-803403-28-2022 Progress note Author Sly Benson [facility] October 07, 2021 8:58am Note Date/Time October 07, 2021 8:2 8am [facility] [place] [address] Hem/Onc Follow Up Note - OP Signed Patient: Theresa Luu MR#: [id number] : 1945 Acct:[id number] Age/Sex: 76 / F Type: REG RCR Copies to: DO Alex Acuña MD~ Date of Service: 10/07/2021 Time of Service: 08:28 - Assessment & Plan (1) Melanoma Plan: T4bN1a stage iiic Resected november 2020 intial visit in late september 2021. unclear if adjuvant therapy should still be offered given the time from her resection to our initial visit. Discussed recurrence risk of over 40% at time of resection and adjuvant therapy given imeddiately after surgery would reduce this to maybe 30%. We will discuss further after her repeeat scans 10/10/21. we discussed consideration of a year of pembolizumab or nivolumab. Follow Up Instructions: f/u in 2 wks with me only to discuss ct scan results. cts are already scheduled. no labs. - History of Present Illness Chief Complaint: Patient is a new patient referred by Dr Muller and Dr Rangelfor malignant melanoma. States she just had skin cancer removed. No concerns voiced at this time. HPI: 76-year-old female referred for melanoma primary patient of Yoni Muller, pastmedical history includes essential hypertension, basal cell carcinoma on her upper back in September 2020hyperlipidemia, malignant tumor of the breast in September 1996 on the left side she had a mastectomy with no chemotherapy or radiation. Outpatient medications include hydrochlorothiazide and simvastatin. She initially had a left lower leg melanoma removed by Dr. Trammell at [facility] in November 162020 with sentinel node biopsy and 2+ nodes. Dr. Trammell notes that the margin was clear, she had a wide resection of the primary melanoma with 2 cm margins, mitotic rate was 6/m?, margins were negative, she had a skin substitute placement and left inguinal sentinel lymph node biopsy. There was noted and in-transit metastasis, left sentinel lymph node noted to have 2+ cells, 2 separate nonsentinel node biopsies were negative. There was 9.5 mm breath lobe depth remaining noted by the wide resection after the initial shave biopsy she was referred for medical oncology but did not schedule. She missed several follow-up appointments with her surgeon and dermatology. Most recently she did follow-up with Dr. Trammell in September 2021. She had had a PET/CT on 10/31/2020 with no evidence of distant metastatic disease. She did have hypermetabolic exophytic soft tissue nodule along the left medial leg, some brightness in the left patellar region, right hand, and several systemic lymph nodes likely reactive. 10/07/21 She gets a little edema in that leg. She has no other issues. Recently saw and has CT scans scheduled for at [facility]. She is doing well, no major medical issues this year once the wound vac was removed from her leg. - Physical Exam ECOG PS: 0 General : patient is alert and oriented to person place and time, no acute distress. Neck: no JVD or thyromegaly. Lymph: no cervical, supraclavicular, axillary adenopathy. Heart: regular rate and rhythm no murmurs rubs or gallops. Abdomen: soft nontender nondistended, no hepatosplenomegaly. Lungs: clear to auscultation bilaterally. No wheezes, rales, rhonchi. Extremities: no clubbing cyanosis. - Time with Patient Coordination of Care & Counseling Time: Greater than 50% of time spent with patient was for coordination of care (as documented) and [id number] counseling of patient and/or family. [facility] - Medical History Medical History: Medical History (Last Reviewed 10/07/21 @ 08:07 by Sheyla Espinoza) Basal cell carcinoma left mid upper back Cellulitis Essential hypertension Hyperlipidemia Malignant melanoma left distal lower anterior leg Malignant tumor of breast Skin graft disorder - Surgical History Surgical History: Surgical History (Last Reviewed 10/07/21 @ 08:07 by Sheyla Espinoza) H/O left mastectomy - Family History Family History: Family History (Last Updated 10/07/21 @ 08:07 by Sheyla Espinoza) Other No significant family history - Social History Smoking Status: Never smoker Substance Use Type: None Additional Data - Additional Objective Data Height/Weight: Height 5 ft 3 in Weight 92.805 kg Vital Signs: 10/07/21 08:13 Temperature 98.1 F Pulse Rate [Right Brachial] 96 H Respiratory Rate 20 Blood Pressure [Right Arm] 144/78 H 02 Sat by Pulse Oximetry 97 - Home Medications and Allergies Allergies/Adverse Reactions: Allergies Penicillins Allergy (Verified 10/07/21 08:05) Unknown Reaction Home Medications: Home Medications hydrochlorothiazide 25 mg tablet 25 mg PO DAILY 10/04/21 [History Confirmed 10/07/21] rosuvastatin 10 mg tablet 10 mg PO DAILY 10/04/21 [History Confirmed 10/07/21] Dictated By: Sly Benson II, DO DD/ 7 Signed By: <Electronically signed by Sly Benson II, DO> 10/07/2158 [facility] Work Phone: 1(933) 369-356303-28-2022 Progress note Author Sly Benson [facility] October 07, 2021 8:58am Note Date/Time October 07, 2021 8:2 8am [facility] [place] [address] Hem/Onc Follow Up Note - OP Signed Patient: Theresa Luu MR#: [id number] : 1945 Acct:[id number] Age/Sex: 76 / F Type: REG RCR Copies to: DO Alex Acuña MD~ Date of Service: 10/07/2021 Time of Service: 08:28 - Assessment & Plan (1) Melanoma Plan: T4bN1a stage iiic Resected november 2020 intial visit in late september 2021. unclear if adjuvant therapy should still be offered given the time from her resection to our initial visit. Discussed recurrence risk of over 40% at time of resection and adjuvant therapy given imeddiately after surgery would reduce this to maybe 30%. We will discuss further after her repeeat scans 10/10/21. we discussed consideration of a year of pembolizumab or nivolumab. Follow Up Instructions: f/u in 2 wks with me only to discuss ct scan results. cts are already scheduled. no labs. - History of Present Illness Chief Complaint: Patient is a new patient referred by Dr Muller and Dr Rangelfor malignant melanoma. States she just had skin cancer removed. No concerns voiced at this time. HPI: 76-year-old female referred for melanoma primary patient of Yoni Muller, pastmedical history includes essential hypertension, basal cell carcinoma on her upper back in September 2020hyperlipidemia, malignant tumor of the breast in September 1996 on the left side she had a mastectomy with no chemotherapy or radiation. Outpatient medications include hydrochlorothiazide and simvastatin. She initially had a left lower leg melanoma removed by Dr. Trammell at [facility] in November 162020 with sentinel node biopsy and 2+ nodes. Dr. Trammell notes that the margin was clear, she had a wide resection of the primary melanoma with 2 cm margins, mitotic rate was 6/m?, margins were negative, she had a skin substitute placement and left inguinal sentinel lymph node biopsy. There was noted and in-transit metastasis, left sentinel lymph node noted to have 2+ cells, 2 separate nonsentinel node biopsies were negative. There was 9.5 mm breath lobe depth remaining noted by the wide resection after the initial shave biopsy she was referred for medical oncology but did not schedule. She missed several follow-up appointments with her surgeon and dermatology. Most recently she did follow-up with Dr. Trammell in September 2021. She had had a PET/CT on 10/31/2020 with no evidence of distant metastatic disease. She did have hypermetabolic exophytic soft tissue nodule along the left medial leg, some brightness in the left patellar region, right hand, and several systemic lymph nodes likely reactive. 10/07/21 She gets a little edema in that leg. She has no other issues. Recently saw and has CT scans scheduled for at [facility]. She is doing well, no major medical issues this year once the wound vac was removed from her leg. - Physical Exam ECOG PS: 0 General : patient is alert and oriented to person place and time, no acute distress. Neck: no JVD or thyromegaly. Lymph: no cervical, supraclavicular, axillary adenopathy. Heart: regular rate and rhythm no murmurs rubs or gallops. Abdomen: soft nontender nondistended, no hepatosplenomegaly. Lungs: clear to auscultation bilaterally. No wheezes, rales, rhonchi. Extremities: no clubbing cyanosis. - Time with Patient Coordination of Care & Counseling Time: Greater than 50% of time spent with patient was for coordination of care (as documented) and [id number] counseling of patient and/or family. [facility] - Medical History Medical History: Medical History (Last Reviewed 10/07/21 @ 08:07 by Sheyla Espinoza) Basal cell carcinoma left mid upper back Cellulitis Essential hypertension Hyperlipidemia Malignant melanoma left distal lower anterior leg Malignant tumor of breast Skin graft disorder - Surgical History Surgical History: Surgical History (Last Reviewed 10/07/21 @ 08:07 by Sheyla Espinoza) H/O left mastectomy - Family History Family History: Family History (Last Updated 10/07/21 @ 08:07 by Sheyla Espinoza) Other No significant family history - Social History Smoking Status: Never smoker Substance Use Type: None Additional Data - Additional Objective Data Height/Weight: Height 5 ft 3 in Weight 92.805 kg Vital Signs: 10/07/21 08:13 Temperature 98.1 F Pulse Rate [Right Brachial] 96 H Respiratory Rate 20 Blood Pressure [Right Arm] 144/78 H 02 Sat by Pulse Oximetry 97 - Home Medications and Allergies Allergies/Adverse Reactions: Allergies Penicillins Allergy (Verified 10/07/21 08:05) Unknown Reaction Home Medications: Home Medications hydrochlorothiazide 25 mg tablet 25 mg PO DAILY 10/04/21 [History Confirmed 10/07/21] rosuvastatin 10 mg tablet 10 mg PO DAILY 10/04/21 [History Confirmed 03/28/22] Dictated By: Sly Benson II, DO DD/ 0828 Signed By: <Electronically signed by Sly Benson II, DO> 10/07/21 [address] [facility] Work Phone: 1(201) 697-246005-07-2021 NotePROCEDURE DETAILS Preoperative Diagnosis: Melanoma of lower limb, C43.70 Postoperative Diagnosis: left lower leg me\lanoma Surgeon: Alex Trammell Resident/Fellow/Other Group Contract Analyst: Bambi Ray Muhammad Procedure: 1. WIDE LOCAL EXCISION MALIGNANT MELANOMA OF LEFT LOWER LEG WITH 2CM MARGINS 2. LEFT INGUINAL SENTINEL LYMPH NODE BIOPSY 3. INTEGRA GRAFT PLACEMENT (6X7CM WOUND) 4. VAC VIA PLACEMENT Anesthesia: Andrew Baldwin Estimated Blood Loss: 20ml Findings: Exophytic left lower leg tumor measuring 3 x 4 cm. Lymphoscintigraphy demonstrating drainage to the left inguinal basin Specimens(s) Collected: yes, Left lower leg melanoma, short stitch 12:00 proximal, long stitch anterior 3:00 Left inguinal sentinel lymph node #1-blue 3139, #2 blue 194 Left inguinal nonsentinel node Complications: None Drains and/or Catheters: VAC Via Implants: Integra Patient Returned To/Condition: PACU, stable Operative Report: Indications: Ms. Luu presented with a left lower leg melanoma that was exophytic and concerning for a possible dermal metastasis. The patient was staged with a whole-body PET/CT that did not identify any clear evidence of metastasis. She was then recommended for wide excision with sentinel lymph node biopsy. Due to the patient's extensive lower extremity edema, we discussed excising her lesion and placing a dermal substitute as well as a wound VAC. The patient understood the risks, benefits, and alternatives to this approach. Informed consent was obtained. Lymphoscintigraphy and SPECT-CT were performed prior to the operation and reviewed. Description of the procedure: The patient was brought to the operating room and placed supine on the table. Sequential compression devices were applied to the right lower extremity. General anesthesia was smoothly induced. Isosulfan blue was injected intradermally in a peritumoral fashion. The operative sites were prepped and draped in the usual fashion. Timeout was performed and preoperative antibiotics given. I began with the sentinel lymph node. Direction was turned to the left groin. Incision was made, dissection was carried deeply into the lymphatic basin. Using the probe, 2 blue and hot sentinel lymph nodes were identified and excised. To prominent nonsentinel nodes were also excised. Once all the sentinel lymph nodes were removed, the wound was irrigated, hemostasis was assured, local anesthesia was infiltrated, and the wound was closed in layers. 3-0 vicryl was used for the Manuela's fascia layer and the deep dermal layers. 4-0 monocryl was used on the skin. Surgical glue was applied as a dressing. I now directed my attention to the left anterior medial distal lower leg tumor. 2 cm. margins were marked around the primary melanoma. Wound markings were made 2 cm outside of the edge of the exophytic tumor. This resulted in 7 x 6 cm wound markings. Skin incision was made with a knife and dissection carried to but not through the underlying muscular fascia. The wound was irrigated and hemostasis was assured. A 4 x 5 inch Integra bilayer graft was obtained to cover this size of the wound. The graft was placed with the silicone layer away from the wound base. This was cut to fit the wound with coverage of not only the base but also the edges. The additional material taken from the remaining pieces of the Integra was made into a slurry and placed within the base of the wound. The graft was then sutured into place with 4-0 Monocryl sutures. A Adaptic layer was also placed over top of the Integra and then a VAC via foam was placed over the wound. This was secured with Mastisol and VAC adhesive. The leg was then wrapped with Kerlix and an Roger bandage. The patient tolerated the procedure well without any apparent intraoperative complications. All sponge, needle, and instrument counts were correct. As the attending surgeon I was scrubbed for all bernstein portions of the procedure. Note Recipients: Argelia Aguilar MD Furlong, Dennis G, MD - [phone] [] Signatures/Attestation: Note Completion: Attending AttestationI was present for the entire procedure Electronic Signatures: Alex Trammell) (Signed 16-Nov-2020 14:13) Authored: Post-Operative Note, Chart Review, Note Completion Last Updated: 16-Nov-2020 14:13 by Alex Trammell)[facility] [place] NoteHistory & Physical Reviewed: I have reviewed the History and Physical dated: 23-Oct-2020 History and Physical reviewed and relevant findings noted. Patient examined to review pertinent physical findings.: No significant changes Home Medications Reviewed: no changes noted Allergies Reviewed: no changes noted ERAS (Enhanced Recovery After Surgery): ERAS Patient: no Consent: COVID-19 Consent: COVID-19 Risk ConsentSurgeon has reviewed bernstein risks related to the risk of rosa COVID-19 and if they contract COVID-19 what the risks are. Signatures/Attestation: Note Completion: I am a: Resident/Fellow Attending AttestationI saw and evaluated the patient. I personally obtained the bernstein and critical portions of the history and physical exam or was physically present for bernstein and critical portions performed by the resident/fellow. I reviewed the resident/fellows documentation and discussed the patient with the resident/fellow. I agree with the resident/fellows medical decision making as documented in the note. I personally evaluated the patient [id number] Attending Provider Inpatient Certification StatementObservation patient/other outpatient visits Electronic Signatures: Alex Trammell) (Signed 16-Nov-2020 13:12) Authored: Note Completion Co-Signer: History & Physical Reviewed, ERAS, Consent, Note Completion Ct Tinsley (Resident)) (Signed 16-Nov-2020 10:36) Authored: History & Physical Reviewed, ERAS, Consent, Note Completion Last Updated: 16-Nov-2020 13:12 by Alex Trammell)[facility] [place] NoteAccession #: [id number] Pathologist: SURAJ MELGAR MD Date of Procedure: 10/16/2020 Date Received: 10/16/2020 Submitting Physician: ALEX TRAMMELL MD Location: [facility] Copy To/Referring/Attending: QUENTIN FITZPATRICK DO FINAL DIAGNOSIS 4 SLIDES, [facility], #[id number] [A] (BX: 09/28/2020) SKIN, LEFT DISTAL PRETIBIAL REGION, SHAVE BIOPSY: ULCERATED MALIGNANT MELANOMA, BRESLOW THICKNESS AT LEAST 2.5 MM, SEE NOTE. Note: Microscopic examination reveals a specimen that extends into the dermis. There is an area of ulceration and there are nests of atypical epithelioid cells in the dermis with an occasional cell in the epidermis. The specimen appears tangentially sectioned. The cells stain with antibodies against SOX-10, and do not stain with antibodies against high molecular weight keratin. The Breslow thickness is approximate and is at least 2.5 mm but could be at least 5 mm, depending on how tangential the sectioning is. The lack of significant epidermal attachment raises the possibility of a metastatic or recurrent melanoma. Electronically Signed Out by SURAJ MELGAR M.D. CANCER SUMMARY REPORT A. 4 SLIDES, [facility], #[id number] [A] (BX: 09/28/2020): SPECIMEN Procedure: Biopsy, shave Specimen Laterality: Left TUMOR Tumor Site: Skin of lower limb and hip: Left distal pretibial region Histologic Type: Either superficial spreading or nodular type. Maximum Tumor (Breslow) Thickness (Millimeters): At least: 2.5 mm See note above Ulceration: Present Extent of Ulceration (Millimeters): 1.5 mm Anatomic (Oliverio) Level: At least level: IV Transected on the deep margin. Mitotic Rate: 3 mitoses per mm2 Microsatellite(s): Not identified Lymphovascular Invasion: Not identified Neurotropism: Not identified Tumor-Infiltrating Lymphocytes: Present, nonbrisk Tumor Regression: Not identified MARGINS Peripheral Margins: Invasive melanoma present at margin Deep Margin: Invasive melanoma present at margin PATHOLOGIC STAGE CLASSIFICATION (pTNM, AJCC 8th Edition) Note: Reporting of pT categories is based on information available to the pathologist at the time the report is issued. As per the AJCC (Chapter 1, 8th Ed.) it is the managing physician?s responsibility to establish the final pathologic stage based upon all pertinent information, including but potentially not limited to this pathology report. Primary Tumor (pT): pT3b ADDITIONAL FINDINGS Additional Findings: None ADDITIONAL TESTING MORTGAGE PROCESSOR BLOCKS: Normal Block: None Tumor Block: A1, A2 Electronically Signed Out By SURAJ MELGAR MD/[facility] Clinical History: A) 2.2CM NODULE, NEOPLASM OF UNCERTAIN BEHAVIOR VS SQUAMOUS CELL CARCINOMA Specimens Submitted As: A: 4 SLIDES, [facility], #[id number] [A] (BX: 09/28/2020) Gross Description: Received for consultation from [facility] are four slides labeled [id number] [A] (BX: 09/28/2020) along with the corresponding pathology report. Slides received on specimen A only. Slide/Block Description 4 SLIDES, [id number] A. Keep Slides: N Slides Returned: N [facility]:Performed By: #### D #### [id number] History general Narrative - Reported* Type Description Date Medical History breast cancer (1996) Medical History HTN Medical History hyperlipidemia Medical History basal cell carcinoma upper back (September 2020) Medical History metastatic malignant melanoma [facility] Other 04-20-2014 History of Present illness Narrative* Ms. Luu is a 75-year-old female referred by Dr. Argelia Aguilar for evaluation and management ofa left distal anterior lower leg melanoma. The patient reports that she thinks this lesion has beenpresent for a couple months and that is grown quickly. This is an exophytic lesion that bleeds occasionally. The patient denies any trauma to the area and is not sure if it arose in a prior mole. Thepatient moved from [place] 8 years ago and has not established consistent care. She is recently began seeing Dr. Yoni Muller for her primary physician, and was referred to Dr. Aguilar for evaluation of this tumor. 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 The pathologic description suggested that there was a lack of significant epidermal attachment raising the possibility of a metastatic or recurrent melanoma. * PET/CT was negative for distant metastatic disease. * Surgery 11/16/2020 wide excision of the primary melanoma with 2 cm margins, Integra skin substitute placement, left inguinal sentinel lymph node biopsy * Pathology residual tumor at the primary site with 9.5 mm Breslow depth remaining. 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 Margin is clear. Left inguinal lymph nodes x2 0/2 LN involved * 09/17/2021 follow-up. The patient returns after canceling multiple appointments. She reports that shehas not seen her accounts payable specialist since prior to the cancer treatment. As such she has not had her basal cell carcinoma on her back formally treated. Additionally, she did not follow-up with medical oncology. This lost to follow-up means that no surveillance is occurred until this point * ROS: * The patient has moderate performance status and is active daily. * Cardiac: No chest pain, palpitations or heart attacks * Pulmonary: No asthma, bronchitis, or COPD * HEENT: No sinus or dental issues. * GI: No constipation, diarrhea, or bloody bowel movements * : Postmenopausal, no urinary complaints * Musculoskeletal: No limitations to ROM or strength * Skin: Left lower leg wound has healed well. no bleeding * Heme: No bleeding or thrombosis issues * Lymph: Inguinal incision healed. No swelling * Psych: No reported anxiety or depression * All other systems reviewed and negative * Physical exam: * General: No acute distress. Healthy appearing * HEENT: Moist oral mucosa, normocephalic * CV: RRR, Vitals reviewed * Pulmonary: No respiratory distress. No use of accessory muscles. No audible wheeze * Lymphatics: The left groin incisiion is well healed without lymphadenopathy. No popliteal LAD either * Skin: Left lower leg surgical wound healed by secondary intention. Dark linear scar vs nodule present at the central aspect of the wound. Additional satellite lesion that is pigmented and below the epidermis lateral to the wound. * Extremities: Bilateral lower extremity swelling from the knee to the foot. 1+ edema. [id number] Work Phone: [phone]) [phone] History of Present illness Narrative* Ms. Luu is a 75-year-old female referred by Dr. Argelia Aguilar for evaluation and management ofa left distal anterior lower leg melanoma. The patient reports that she thinks this lesion has beenpresent for a couple months and that is grown quickly. This is an exophytic lesion that bleeds occasionally. The patient denies any trauma to the area and is not sure if it arose in a prior mole. Thepatient moved from [place] 8 years ago and has not established consistent care. She is recently began seeing Dr. Yoni Muller for her primary physician, and was referred to Dr. Aguilar for evaluation of this tumor. 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 The pathologic description suggested that there was a lack of significant epidermal attachment raising the possibility of a metastatic or recurrent melanoma. * PET/CT was negative for distant metastatic disease. * Surgery 11/16/2020 wide excision of the primary melanoma with 2 cm margins, Integra skin substitute placement, left inguinal sentinel lymph node biopsy * Pathology residual tumor at the primary site with 9.5 mm Breslow depth remaining. 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 Margin is clear. Left inguinal lymph nodes x2 0/2 LN involved * 09/17/2021 follow-up. The patient returns after canceling multiple appointments. She reports that shehas not seen her accounts payable specialist since prior to the cancer treatment. As such she has not had her basal cell carcinoma on her back formally treated. Additionally, she did not follow-up with medical oncology. This lost to follow-up means that no surveillance is occurred until this point * ROS: * The patient has moderate performance status and is active daily. * Cardiac: No chest pain, palpitations or heart attacks * Pulmonary: No asthma, bronchitis, or COPD * HEENT: No sinus or dental issues. * GI: No constipation, diarrhea, or bloody bowel movements * : Postmenopausal, no urinary complaints * Musculoskeletal: No limitations to ROM or strength * Skin: Left lower leg wound has healed well. no bleeding * Heme: No bleeding or thrombosis issues * Lymph: Inguinal incision healed. No swelling * Psych: No reported anxiety or depression * All other systems reviewed and negative * Physical exam: * General: No acute distress. Healthy appearing * HEENT: Moist oral mucosa, normocephalic * CV: RRR, Vitals reviewed * Pulmonary: No respiratory distress. No use of accessory muscles. No audible wheeze * Lymphatics: The left groin incisiion is well healed without lymphadenopathy. No popliteal LAD either * Skin: Left lower leg surgical wound healed by secondary intention. Dark linear scar vs nodule present at the central aspect of the wound. Additional satellite lesion that is pigmented and below the epidermis lateral to the wound. * Extremities: Bilateral lower extremity swelling from the knee to the foot. 1+ edema. [facility] Work Phone: [phone] History of Present illness Narrative* Ms. Luu is a 75-year-old female referred by Dr. Argelia Aguilar for evaluation and management ofa left distal anterior lower leg melanoma. The patient reports that she thinks this lesion has beenpresent for a couple months and that is grown quickly. This is an exophytic lesion that bleeds occasionally. The patient denies any trauma to the area and is not sure if it arose in a prior mole. Thepatient moved from [place] 8 years ago and has not established consistent care. She is recently began seeing Dr. Yoni Muller for her primary physician, and was referred to Dr. Aguilar for evaluation of this tumor. 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 The pathologic description suggested that there was a lack of significant epidermal attachment raising the possibility of a metastatic or recurrent melanoma. * PET/CT was negative for distant metastatic disease. * Surgery 11/16/2020 wide excision of the primary melanoma with 2 cm margins, Integra skin substitute placement, left inguinal sentinel lymph node biopsy * Pathology residual tumor at the primary site with 9.5 mm Breslow depth remaining. 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 Margin is clear. Left inguinal lymph nodes x2 0/2 LN involved * 01/22/2021 wound check. The patient developed a left inguinal seroma that became infected and began draining and has been managed with oral antibiotics and packing of her wound by home care. With thisapproach, the patient reports that her upper thigh has resolved its erythema and drainage and that her wound is getting smaller. Additionally she has been continuing the VAC dressings to her lower extremity. She is interested to stop this type of therapy * ROS: * The patient has moderate performance status and is active daily. * Cardiac: No chest pain, palpitations or heart attacks * Pulmonary: No asthma, bronchitis, or COPD * HEENT: No sinus or dental issues. * GI: No constipation, diarrhea, or bloody bowel movements * : Postmenopausal, no urinary complaints * Musculoskeletal: No limitations to ROM or strength * Skin: Left lower leg VAC with suction. * Heme: No bleeding or thrombosis issues * Lymph: Open wound at the left groin, packed * Psych: No reported anxiety or depression * All other systems reviewed and negative * Physical exam: * General: No acute distress. Healthy appearing * HEENT: Moist oral mucosa, normocephalic * CV: RRR, Vitals reviewed * Pulmonary: No respiratory distress. No use of accessory muscles. No audible wheeze * Lymphatics: The left groin has a 1 x 1.5 cm x 1 cm cavity that has no expressible fluid and no evidence of exudate. The wound was packed with Nu Gauze today and will continue to be so * Skin: Wound vac was taken down and the adaptic layer was easily removed from the underlying wound base. The base of the wound is healthy granulation tissue and this has filled in tremendously. This was redressed with Vaseline gauze and wrapped in place with Kerlix and an Roger. * Extremities: Bilateral lower extremity swelling from the knee to the foot. 1+ edema. [id number] Work Phone: [phone] History of Present illness Narrative* Ms. Luu is a 75-year-old female referred by Dr. Argelia Aguilar for evaluation and management ofa left distal anterior lower leg melanoma. The patient reports that she thinks this lesion has beenpresent for a couple months and that is grown quickly. This is an exophytic lesion that bleeds occasionally. The patient denies any trauma to the area and is not sure if it arose in a prior mole. Thepatient moved from [place] 8 years ago and has not established consistent care. She is recently began seeing Dr. Yoni Muller for her primary physician, and was referred to Dr. Aguilar for evaluation of this tumor. 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 The pathologic description suggested that there was a lack of significant epidermal attachment raising the possibility of a metastatic or recurrent melanoma. * PET/CT was negative for distant metastatic disease. * ] * Surgery 11/16/2020 wide excision of the primary melanoma with 2 cm margins, Integra skin substitute placement, left inguinal sentinel lymph node biopsy * Pathology residual tumor at the primary site with 9.5 mm Breslow depth remaining. 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 Margin is clear. Left inguinal lymph nodes x2 0/2 LN involved * 12/25/2020 wound check. The patient presents after a course of antibiotics and continued wound VAC changes with home health. She is doing well. She is required lidocaine topically during her VAC changes to help with the pain related to the foam removal. She has had no fevers or chills. With the wound VAC in place she has minimal discomfort. * ROS: * The patient has moderate performance status and is active daily. * Cardiac: No chest pain, palpitations or heart attacks * Pulmonary: No asthma, bronchitis, or COPD * HEENT: No sinus or dental issues. * GI: No constipation, diarrhea, or bloody bowel movements * : Postmenopausal, no urinary complaints * Musculoskeletal: No limitations to ROM or strength * Skin: Left lower leg VAC with suction. * Heme: No bleeding or thrombosis issues * Lymph: No swelling * Psych: No reported anxiety or depression * All other systems reviewed and negative * Physical exam: * General: No acute distress. Healthy appearing * HEENT: Moist oral mucosa, normocephalic * CV: RRR, Vitals reviewed * Pulmonary: No respiratory distress. No use of accessory muscles. No audible wheeze * Lymphatics: No seroma in the left groin * Skin: Wound vac was taken down and the adaptic layer was easily removed from the underlying wound base. Minimal debridement of fibrinous exudate was performed. Otherwise there is beefy granulation noted. No evidence of cellulitis * Neuro: No gross sensorimotor deficits * Extremities: Bilateral lower extremity swelling from the knee to the foot. 2+ edema. [facility] [address] Work Phone: [phone]) [phone] History of Present illness Narrative* Ms. Luu is a 75-year-old female referred by Dr. Argelia Aguilar for evaluation and management ofa left distal anterior lower leg melanoma. The patient reports that she thinks this lesion has beenpresent for a couple months and that is grown quickly. This is an exophytic lesion that bleeds occasionally. The patient denies any trauma to the area and is not sure if it arose in a prior mole. Thepatient moved from [place] 8 years ago and has not established consistent care. She is recently began seeing Dr. Yoni Muller for her primary physician, and was referred to Dr. Aguilar for evaluation of this tumor. 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 The pathologic description suggested that there was a lack of significant epidermal attachment raising the possibility of a metastatic or recurrent melanoma. * PET/CT was negative for distant metastatic disease. * ] * Surgery 11/16/2020 wide excision of the primary melanoma with 2 cm margins, Integra skin substitute placement, left inguinal sentinel lymph node biopsy * Pathology residual tumor at the primary site with 9.5 mm Breslow depth remaining. 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 Margin is clear. Left inguinal lymph nodes x2 0 of two involved * 11/27/2020 - postop visit. The patient is doing okay in her recovery however her wound VAC has had significant drainage. This is been managed by VAC changes with home health care in the wound clinic. She does mention occasional pain in this area. The patient does not have any swelling in the left groin. The patient's wound VAC was changed yesterday and due to the discomfort with the VAC placement,the patient was asking that we allowed for VAC changes with home care so as not to increase the number of times the VAC placement needs to occur. * ROS: * The patient has good performance status and is active daily. * Cardiac: No chest pain, palpitations or heart attacks * Pulmonary: No asthma, bronchitis, or COPD * HEENT: No sinus or dental issues. * GI: No constipation, diarrhea, or bloody bowel movements * : Postmenopausal, no urinary complaints * Musculoskeletal: No limitations to ROM or strength * Skin: Left lower leg VAC with suction. Some redness around the wound * Heme: No bleeding or thrombosis issues * Lymph: No swelling * Psych: No reported anxiety or depression * All other systems reviewed and negative * Physical exam: * General: No acute distress. Healthy appearing * HEENT: Moist oral mucosa, normocephalic * CV: RRR, Vitals reviewed * Pulmonary: No respiratory distress. No use of accessory muscles. No audible wheeze * Lymphatics: No seroma in the left groin * Skin: Wound vac in place on the left lower leg. No significant tenderness to palpation. Some redness of the surrounding skin. The patient deferred wound vac removal due to the recent change the day prior. She will have the home health nurse send a picture at the nexxt VAC change. * Neuro: No gross sensorimotor deficits * Extremities: Bilateral lower extremity swelling from the knee to the foot. 2+ edema. [facility] noteN/ADept. of Dermatology Evaluation note* Diagnosis Onset Date Resolution Status Melanoma acute [facility] Work Phone: Evaluation noteNo assessment information available [facility] Work Phone: Evalukclye note* Diagnosis Onset Date Resolution Status Melanoma acute Inguinal adenopathy acute [facility] Work Phone: Evaluation note* Diagnosis Onset Date Resolution Status Inguinal adenopathy acute Melanoma acute [facility] Work Phone: Evaluation note* Diagnosis Onset Date Resolution Status Encounter for antineoplastic immunotherapy acute Inguinal adenopathy acute Melanoma acute [facility] Work Phone: Hospital Discharge instructionsAmbulatory Orders* Chemotherapy Class Time Frame: 1 Day, Location: Determined By Patient [facility] Work Phone: Hospital Discharge instructionsAmbulatory Orders* Oncology Histology Time Frame: 1 Day, Location: Determined By Patient [facility] Work Phone: Progress note Author Sly Benson [facility] May 02, 2022 4:01pm Note Date/Time May 02, 2022 3 :52pm [facility] [place] [address] Hem/Onc Follow Up Note - OP Signed Patient: Theresa Luu MR#: [id number] : 1945 Acct:[id number] Age/Sex: 76 / F Type: REG RCR Copies to: DO Alex Acuña MD~ Date of Service: 05/02/2022 Time of Service: 15:49 - Assessment & Plan (1) Melanoma Plan: Metastatic stage IV melanoma, recurrent in mar 2022, originally T4bN1a stage iiic L ankle. Resected november 2020, not given adjuvant therapy because patient was hesitant and initial consult was 10 months after resection. Repeat imaging in September 2021 showed no evidence of metastatic disease. Recurrent metastatic in mar 2022. pulmonary nodules and recurrent disease in the L groin, left pelvic sidewall. Will start Nivo 3mg/kg every 3wks, Ipilimumab 1mg/kg every 3 weeks. will drop ipilimumab after 4 doses will check BRAF status. Follow Up Instructions: start ipi nivo next week f/u with me or alejo at c2d1. cbc, cmp, tsh prior to f/u. send BRAF on tumor please. - History of Present Illness Chief Complaint: Patient is here for a 2 week follow up with biopsy 04/28/2022 for review. No concerns voiced at this time. HPI: 76-year-old female referred for melanoma primary patient of Yoni Prohelena, pastmedical history includes essential hypertension, basal cell carcinoma on her upper back in September 2020hyperlipidemia, malignant tumor of the breast in September 1996 on the left side she had a mastectomy with no chemotherapy or radiation. Outpatient medications include hydrochlorothiazide and simvastatin. She initially had a left lower leg melanoma removed by Dr. Trammell at [facility] in November 162020 with sentinel node biopsy and 2+ nodes. Dr. Trammell notes that the margin was clear, she had a wide resection of the primary melanoma with 2 cm margins, mitotic rate was 6/m?, margins were negative, she had a skin substitute placement and left inguinal sentinel lymph node biopsy. There was noted and in-transit metastasis, left sentinel lymph node noted to have 2+ cells, 2 separate nonsentinel node biopsies were negative. There was 9.5 mm breath lobe depth remaining noted by the wide resection after the initial shave biopsy she was referred for medical oncology but did not schedule. She missed several follow-up appointments with her surgeon and dermatology. Most recently she did follow-up with Dr. Trammell in September 2021. She had had a PET/CT on 10/31/2020 with no evidence of distant metastatic disease. She did have hypermetabolic exophytic soft tissue nodule along the left medial leg, some brightness in the left patellar region, right hand, and several systemic lymph nodes likely reactive. 10/07/21 She gets a little edema in that leg. She has no other issues. Recently saw and has CT scans scheduled for at [facility]. She is doing well, no major medical issues this year once the wound vac was removed from her leg. 10/28/[address] imaging from October 01, 2021 shows no obvious evidence of metastatic disease. Small nonspecific abdominal pelvic and inguinal nodes, 3 cm right ovarian cyst. Punch biopsy performed by Dr. Trammell from September 17, 2021 of the surgical scar and anterior lower leg were both negative for melanoma. 04/21/22 recent c t images with evidence of recurrence. She feels well otherwise. no new complaints. in hindsight had pulmonary nodule previously. She has large palpable mass in her L groin. ct chest abd pelvis from 03/26/22 1. New bilateral pulmonary nodules, largest measuring 1 cm within the left upper lobe suggestive of progression of disease. 2. New prominent to enlarged left pelvic sidewall, left external iliac and inguinal lymph nodes suspicious for progression of disease. Peritoneum/Retroperitoneum:Enlarged left pelvic sidewall lymph node measuring 2 cm in short axis with additional prominent to enlarged lymph nodes are seen along the left external iliac chain as well as the left inguinal region largest measuring 2.2 cm involving the left inguinal region. Surrounding post surgical changes are seen involving the left inguinal region. No free air. No free fluid. 08/02/21 her groin node biopsy was positive for melanoma. she feels well. after the biopsy the node shrunk 50% - Physical Exam ECOG PS: 0 General : patient is alert and oriented to person place and time, no acute distress. Neck: no JVD or thyromegaly. Lymph: no cervical, supraclavicular, axillary adenopathy. L groin 4 to 5 cm palpable mass. Heart: regular rate and rhythm no murmurs rubs or gallops. Abdomen: soft nontender nondistended, no hepatosplenomegaly. Lungs: cta bl, no wheezes, rales, rhonchi. Extremities: no clubbing cyanosis. - Time with Patient Coordination of Care & Counseling Time: Greater than 50% of time spent with patient was for coordination of care (as documented) and [id number] counseling of patient and/or family. [facility] - Medical History Medical History: Medical History (Last Reviewed 04/28/22 @ 08:09 by Bonnie Mistry RN) Basal cell carcinoma left mid upper back Cellulitis Essential hypertension Hyperlipidemia Malignant melanoma left distal lower anterior leg Malignant tumor of breast Skin graft disorder - Surgical History Surgical History: Surgical History (Last Reviewed 04/28/22 @ 08:09 by Bonnie Mistry RN) H/O left mastectomy - Family History Family History: Family History (Last Updated 10/07/21 @ 08:07 by Sheyla Espinoza) Other No significant family history - Social History Smoking Status: Never smoker Substance Use Type: None Additional Data - Additional Objective Data Height/Weight: Height 5 ft 3 in Weight 92.805 kg Vital Signs: 05/02/22 15:07 Pulse Rate [Right Brachial] 87 Respiratory Rate 20 Blood Pressure [Right Arm] 146/83 H 02 Sat by Pulse Oximetry 98 Oxygen Delivery Method Room Air - Home Medications and Allergies Allergies/Adverse Reactions: Allergies Penicillins Allergy (Verified 05/02/22 15:06) Unknown Reaction Home Medications: Home Medications hydrochlorothiazide 25 mg tablet 25 mg PO DAILY 10/04/21 [History Confirmed 04/28/22] rosuvastatin 10 mg tablet 10 mg PO DAILY 10/04/21 [History Confirmed 04/28/22] Dictated By: Sly Benson II, DO DD/ [id number] Signed By: <Electronically signed by Sly Benson II, DO> 05/02/22 1601 [facility] Work Phone: Progrpzo note Author Zenobia Parker [facility] June 02, 2022 11:05am Note Date/Time June 02, 2022 11:01am [facility] [place] [address] Hem/Onc Follow Up Note - OP Signed Patient: Theresa Luu MR#: [id number] : 1945 Acct:[id number] Age/Sex: 76 / F Type: REG RCR Copies to: DO Alex Acuña MD~ Subjective Date/Time of Service: Date of Service: 06/02/2022 Time of Service: 10:58 Chief Complaint: Patient is here today for a one month follow up visit for melanoma. No new concerns HPI: 76-year-old female referred for melanoma primary patient of Yoni Muller, pastmedical history includes essential hypertension, basal cell carcinoma on her upper back in September 2020hyperlipidemia, malignant tumor of the breast in September 1996 on the left side she had a mastectomy with no chemotherapy or radiation. Outpatient medications include hydrochlorothiazide and simvastatin. She initially had a left lower leg melanoma removed by Dr. Trammell at [facility] in November 162020 with sentinel node biopsy and 2+ nodes. Dr. Trammell notes that the margin was clear, she had a wide resection of the primary melanoma with 2 cm margins, mitotic rate was 6/m?, margins were negative, she had a skin substitute placement and left inguinal sentinel lymph nodebiopsy. There was noted and in-transit metastasis, left sentinel lymph node noted to have 2+ cells, 2 separate nonsentinel node biopsies were negative. There was 9.5 mm breath lobe depth remaining noted by the wide resection after the initial shave biopsy she was referred for medical oncology but did not schedule. She missed several follow-up appointments with her surgeon and dermatology. Most recently she did follow-up with Dr. Trammell in September 2021. She had had a PET/CT on 10/31/2020 with no evidence of distant metastatic disease. She did have hypermetabolic exophytic soft tissue nodule along the left medial leg, some brightness in the left patellar region, right hand, and several systemic lymph nodes likely reactive. 10/07/21 She gets a little edema in that leg. She has no other issues. Recently saw and has CT scans scheduled for at [facility]. She is doing well, no major medical issues this year once the wound vac was removed from her leg. 10/28/[address] imaging from October 01, 2021 shows no obvious evidence of metastatic disease. Small nonspecific abdominal pelvic and inguinal nodes, 3 cm right ovarian cyst. Punch biopsy performed by Dr. Trammell from September 17, 2021 of the surgical scar and anterior lower leg were both negative for melanoma. 04/21/22 recent c t images with evidence of recurrence. She feels well otherwise. no new complaints. in hindsight had pulmonary nodule previously. She has large palpable mass in her L groin. ct chest abd pelvis from 03/26/22 1. New bilateral pulmonary nodules, largest measuring 1 cm within the left upper lobe suggestive of progression of disease. 2. New prominent to enlarged left pelvic sidewall, left external iliac and inguinal lymph nodes suspicious for progression of disease. Peritoneum/Retroperitoneum:Enlarged left pelvic sidewall lymph node measuring 2 cm in short axis with additional prominent to enlarged lymph nodes are seen along the left external iliac chain as well as the left inguinal region largest measuring 2.2 cm involving the left inguinal region. Surrounding post surgical changes are seen involving the left inguinal region. No free air. No free fluid. 05/02/22 her groin node biopsy was positive for melanoma. she feels well. after the biopsy the node shrunk 50% 06/02/2022 Patient is here for cycle 2, day 1 Ipi/Nivo. Tolerated Cycle 1 well with no untoward side effects for the most part. She reportedly experienced whole body itching without rash the following day after treatment; but this resolved within 1-2 days with Benadryl. She reports mild fatigue, but denies diarrhea, nausea/vomiting or abdominal pain, cough, SOB. Chronic left LE edema. Lymph node is much smaller. - Summary of Therapies Summary of Therapies: Combination Ipilimumab 1 mg + Nivolumab 3 mg Q 21 days x 4 cycles: 1.) Cycle 1: 05/12/2022 2.) Cycle 2: 06/02/2022 Subjective/ROS - Narrative: As per the HPI, otherwise 10 point review of systems is negative. [facility] - Medical History Medical History: Medical History (Last Reviewed 04/28/22 @ 08:09 by Bonnie Mistry RN) Basal cell carcinoma left mid upper back Cellulitis Essential hypertension Hyperlipidemia Malignant melanoma left distal lower anterior leg Malignant tumor of breast Skin graft disorder - Surgical History Surgical History: Surgical History (Last Reviewed 04/28/22 @ 08:09 by Bonnie Mistry RN) H/O left mastectomy - Family History Family History: Family History (Last Updated 10/07/21 @ 08:07 by Sheyla Espinoza) Other No significant family history - Social History Smoking Status: Never smoker Substance Use Type: None Home Medications & Allergies Allergies Penicillins Allergy (Verified 06/02/22 10:29) Unknown Reaction Home Medications hydrochlorothiazide 25 mg tablet 25 mg PO DAILY 10/04/21 [History Confirmed 06/02/22] rosuvastatin 10 mg tablet 10 mg PO DAILY 10/04/21 [History Confirmed 06/02/22] Objective - Resuscitation Status Resuscitation Status: Full Code - Height/Weight Height/Weight: Height 5 ft 3 in Weight 89.9 kg BSA for Today's Weight 2.03 - Vital Signs Vital Signs: 06/02/22 10:29 Temperature 97.7 F Pulse Rate [Right Brachial] 92 H Respiratory Rate 16 Blood Pressure [Right Arm] 150/82 H 02 Sat by Pulse Oximetry 97 Oxygen Delivery Method Room Air Physical Exam Narrative: ECOG PS: 0 General : patient is alert and oriented to person place and time, no acute distress. Neck: no JVD or thyromegaly. Lymph: no cervical, supraclavicular, axillary adenopathy. L groin 4 cm palpable mass. Heart: regular rate and rhythm no murmurs rubs or gallops. Abdomen: soft nontender nondistended, no hepatosplenomegaly. Lungs: cta bl, no wheezes, rales, rhonchi. Extremities: no clubbing cyanosis; 1 + LE edema (chronic) - ECOG Performance Status ECOG Score: 1 Assessment and Plan (1) Melanoma 1.) Metastatic stage IV melanoma, recurrent in mar 2022, originally T4bN1a stage iiic L ankle. Resected november 2020, not given adjuvant therapy because patient was hesitant and initial consult was 10 months after resection. Repeat imaging in September 2021 showed no evidence of metastatic disease. Recurrent metastatic in mar 2022. pulmonary nodules and recurrent disease in the L groin, left pelvic sidewall. Will start Nivo 3mg/kg every 3wks, Ipilimumab 1mg/kg every 3 weeks. will drop ipilimumab after 4 doses 06/02/2022: Patient is here for cycle 2, day 1 Ipi/Nivo. Tolerated Cycle 1 well with no untoward side effects for the most part. She reportedly experienced whole body itching without rash the following day after treatment; but this resolved within 1-2 days with Benadryl. She reports mild fatigue, but denies diarrhea, nausea/vomiting or abdominal pain, cough, SOB. Chronic left LE edema. Lymph node is much smaller. - BRAF status pending 2.) Encounter for monitoring immunotherapy - continue/proceed with Cycle 2 today - no significant problems; labs are stable - follow up prior to Cycle 3 on 06/23/2022 with standard labs - Chemo Plan Goal of Treatment: Control - Time with Patient Time Spent with Patient (Follow Up Visit): 25 minutes Coordination of Care & Counseling Time: Greater than 50% of time spent with patient was for coordination of care (as documented) and [id number] counseling of patient and/or family. Dictated By: Zenobia Parker APRN DD/ 1058 Signed By: <Electronically signed by ANTOINETTE Parker> 06/02/22 1105 [facility] Work Phone: Progress note Author Sly Benson [facility] June 23, 2022 11:22am Note Date/Time June 23, 2022 11:18am [facility] at [address] [address] Hem/Onc Follow Up Note - OP Signed Patient: Theresa Luu MR#: [id number] : 1945 Acct:[id number] Age/Sex: 76 / F Type: REG RCR Copies to: Yoni Muller,DO Alex Trammell MD~ Date of Service: 06/23/2022 Time of Service: 11:16 - Assessment & Plan (1) Melanoma Plan: 1.) Metastatic stage IV melanoma, recurrent in mar 2022, originally T4bN1a stage iiic L ankle. Resected november 2020, not given adjuvant therapy because patient was hesitant and initial consult was 10 months after resection. Repeat imaging in September 2021 showed no evidence of metastatic disease. Recurrent metastatic in mar 2022. pulmonary nodules and recurrent disease in the L groin, left pelvic sidewall. Will start Nivo 3mg/kg every 3wks, Ipilimumab 1mg/kg every 3 weeks. will drop ipilimumab after 4 doses 06/02/2022: cycle 2, day 1 Ipi/Nivo. 06/23/22 c3d1. - BRAF status pending Follow Up Instructions: check braf status on her tumor. previously requested. f/u in 3 weeks for c4 ipi nivo. ct c/a/p with contrast prior to f/u. cbc cmp, tsh priro to f/u (froylan ok). - History of Present Illness Chief Complaint: Patient is here for a 3 week follow up with outside labs for review, prior to treatment today. No concerns voiced at this time. HPI: 76-year-old female referred for melanoma primary patient of Yoni Muller, pastmedical history includes essential hypertension, basal cell carcinoma on her upper back in September 2020hyperlipidemia, malignant tumor of the breast in September 1996 on the left side she had a mastectomy with no chemotherapy or radiation. Outpatient medications include hydrochlorothiazide and simvastatin. She initially had a left lower leg melanoma removed by Dr. Trammell at [facility] in November 162020 with sentinel node biopsy and 2+ nodes. Dr. Trammell notes that the margin was clear, she had a wide resection of the primary melanoma with 2 cm margins, mitotic rate was 6/m?, margins were negative, she had a skin substitute placement and left inguinal sentinel lymph node biopsy. There was noted and in-transit metastasis, left sentinel lymph node noted to have 2+ cells, 2 separate nonsentinel node biopsies were negative. There was 9.5 mm breath lobe depth remaining noted by the wide resection after the initial shave biopsy she was referred for medical oncology but did not schedule. She missed several follow-up appointments with her surgeon and dermatology. Most recently she did follow-up with Dr. Trammell in September 2021. She had had a PET/CT on 10/31/2020 with no evidence of distant metastatic disease. She did have hypermetabolic exophytic soft tissue nodule along the left medial leg, some brightness in the left patellar region, right hand, and several systemic lymph nodes likely reactive. 10/07/21 She gets a little edema in that leg. She has no other issues. Recently saw and has CT scans scheduled for at [facility]. She is doing well, no major medical issues this year once the wound vac was removed from her leg. 10/28/[address] imaging from October 01, 2021 shows no obvious evidence of metastatic disease. Small nonspecific abdominal pelvic and inguinal nodes, 3 cm right ovarian cyst. Punch biopsy performed by Dr. Trammell from September 17, 2021 of the surgical scar and anterior lower leg were both negative for melanoma. 04/21/22 recent c t images with evidence of recurrence. She feels well otherwise. no new complaints. in hindsight had pulmonary nodule previously. She has large palpable mass in her L groin. ct chest abd pelvis from 03/26/22 1. New bilateral pulmonary nodules, largest measuring 1 cm within the left upper lobe suggestive of progression of disease. 2. New prominent to enlarged left pelvic sidewall, left external iliac and inguinal lymph nodes suspicious for progression of disease. Peritoneum/Retroperitoneum:Enlarged left pelvic sidewall lymph node measuring 2 cm in short axis with additional prominent to enlarged lymph nodes are seen along the left external iliac chain as well as the left inguinal region largest measuring 2.2 cm involving the left inguinal region. Surrounding post surgical changes are seen involving the left inguinal region. No free air. No free fluid. 05/02/22 her groin node biopsy was positive for melanoma. she feels well. after the biopsy the node shrunk 50% 06/02/2022 Patient is here for cycle 2, day 1 Ipi/Nivo. Tolerated Cycle 1 well with no untoward side effects for the most part. She reportedly experienced whole body itching without rash the following day after treatment; but this resolved within 1-2 days with Benadryl. She reports mild fatigue, but denies diarrhea, nausea/vomiting or abdominal pain, cough, SOB. Chronic left LE edema. Lymph node is much smaller. 06/23/22 Labs are good. tolerating ipi nivo well without complaint> review of labs without any significant abnormality. sHE STILL gets a bit of a rash for a day or two after her treatment. She states it feels like here is crawling in her skin. lasts maybe 3 days. worse after hot showers. Benadryl really works for this. - Physical Exam ECOG PS: 0 General : patient is alert and oriented to person place and time, no acute distress. Neck: no JVD or thyromegaly. Lymph: no cervical, supraclavicular, axillary adenopathy. L groin 5 cm palpable mass. Heart: regular rate and rhythm no murmurs rubs or gallops. Abdomen: soft nontender nondistended, no hepatosplenomegaly. Lungs: cta bl, no wheezes, rales, rhonchi. Extremities: no clubbing cyanosis; 1 + LE edema (chronic) Goal of Treatment: Control - Time with Patient Coordination of Care & Counseling Time: Greater than 50% of time spent with patient was for coordination of care (as documented) and [id number] counseling of patient and/or family. [facility] - Medical History Medical History: Medical History (Last Reviewed 04/28/22 @ 08:09 by Bonnie Mistry RN) Basal cell carcinoma left mid upper back Cellulitis Essential hypertension Hyperlipidemia Malignant melanoma left distal lower anterior leg Malignant tumor of breast Skin graft disorder - Surgical History Surgical History: Surgical History (Last Reviewed 04/28/22 @ 08:09 by Bonnie Auxter, RN) H/O left mastectomy - Family History Family History: Family History (Last Updated 10/07/21 @ 08:07 by Sheyla Espinoza) Other No significant family history - Social History Smoking Status: Never smoker Substance Use Type: None Additional Data - Additional Objective Data Height/Weight: Height 5 ft 3 in Weight 88.6 kg BSA for Today's Weight 2.00 Vital Signs: 06/23/22 10:44 Temperature 97.9 F Pulse Rate [Right Brachial] 80 Respiratory Rate 18 Blood Pressure [Right Arm] 141/74 H 02 Sat by Pulse Oximetry 98 Oxygen Delivery Method Room Air - Home Medications and Allergies Allergies/Adverse Reactions: Allergies Penicillins Allergy (Verified 06/23/22 10:44) Unknown Reaction Home Medications: Home Medications hydrochlorothiazide 25 mg tablet 25 mg PO DAILY 10/04/21 [History Confirmed 06/23/22] rosuvastatin 10 mg tablet 10 mg PO DAILY 10/04/21 [History Confirmed 06/23/22] Dictated By: Sly Benson II, DO DD/ 1116 Signed By: <Electronically signed by Sly Benson II, DO> 06/23/22 1122 [facility] Work Phone: Progress note Author Sly Benson [facility] August 11, 2022 11:03am Note Date/Time August 11, 2022 1 0:48am [facility] [place] [place] [address] Hem/Onc Follow Up Note - OP Signed Patient: Theresa Luu MR#: [id number] : 1945 Acct:[id number] Age/Sex: 76 / F Type: REG RCR Copies to: DO Alex Acuña MD~ Date of Service: 08/11/2022 Time of Service: 10:46 - Assessment & Plan (1) Melanoma Plan: 1.) Metastatic stage IV melanoma, recurrent in mar 2022, originally T4bN1a stage iiic L ankle. Resected november 2020, not given adjuvant therapy because patient was hesitant and initial consult was 10 months after resection. Repeat imaging in September 2021 showed no evidence of metastatic disease. Recurrent metastatic in mar 2022. pulmonary nodules and recurrent disease in the L groin, left pelvic sidewall. Will start Nivo 3mg/kg every 3wks, Ipilimumab 1mg/kg every 3 weeks. will drop ipilimumab after 4 doses 06/02/2022: cycle 2, day 1 Ipi/Nivo. 06/23/22 c3d1. - BRAF status pending she had ct scan with doubling of the size of the groin node and pelvic nodule. She had improvement /resolution of the lung nodularity. 08/11/22 to get first maintenance nivo today. i suggest considering radiation of her two large metastatic deposits in groin/pelvis L side. she has had resposnese to presumed metastatic disease in the lungs. she continues to essentially refuse chemotherapy. i discussed without radiation she will likely have an open wound here in her groin soon. Follow Up Instructions: NEED BRAF MUTATION RESULTS GONZALO. rad onc eval cont nivo maintance. f/u in 4 weeks. cbc, cmp, tsh t4 on treatment days. - History of Present Illness Chief Complaint: Patient is here for a 6 week follow up with labs and scans for review. No concerns voiced at this time. HPI: 76-year-old female referred for melanoma primary patient of Yoni Muller, pastmedical history includes essential hypertension, basal cell carcinoma on her upper back in September 2020hyperlipidemia, malignant tumor of the breast in September 1996 on the left side she had a mastectomy with no chemotherapy or radiation. Outpatient medications include hydrochlorothiazide and simvastatin. She initially had a left lower leg melanoma removed by Dr. Trammell at [facility] in November 162020 with sentinel node biopsy and 2+ nodes. Dr. Trammell notes that the margin was clear, she had a wide resection of the primary melanoma with 2 cm margins, mitotic rate was 6/m?, margins were negative, she had a skin substitute placement and left inguinal sentinel lymph node biopsy. There was noted and in-transit metastasis, left sentinel lymph node noted to have 2+ cells, 2 separate nonsentinel node biopsies were negative. There was 9.5 mm breath lobe depth remaining noted by the wide resection after the initial shave biopsy she was referred for medical oncology but did not schedule. She missed several follow-up appointments with her surgeon and dermatology. Most recently she did follow-up with Dr. Trammell in September 2021. She had had a PET/CT on 10/31/2020 with no evidence of distant metastatic disease. She did have hypermetabolic exophytic soft tissue nodule along the left medial leg, some brightness in the left patellar region, right hand, and several systemic lymph nodes likely reactive. 10/07/21 She gets a little edema in that leg. She has no other issues. Recently saw and has CT scans scheduled for at [facility]. She is doing well, no major medical issues this year once the wound vac was removed from her leg. 10/28/[address] imaging from October 01, 2021 shows no obvious evidence of metastatic disease. Small nonspecific abdominal pelvic and inguinal nodes, 3 cm right ovarian cyst. Punch biopsy performed by Dr. Trammell from September 17, 2021 of the surgical scar and anterior lower leg were both negative for melanoma. 04/21/22 recent c t images with evidence of recurrence. She feels well otherwise. no new complaints. in hindsight had pulmonary nodule previously. She has large palpable mass in her L groin. ct chest abd pelvis from 03/26/22 1. New bilateral pulmonary nodules, largest measuring 1 cm within the left upper lobe suggestive of progression of disease. 2. New prominent to enlarged left pelvic sidewall, left external iliac and inguinal lymph nodes suspicious for progression of disease. Peritoneum/Retroperitoneum:Enlarged left pelvic sidewall lymph node measuring 2 cm in short axis with additional prominent to enlarged lymph nodes are seen along the left external iliac chain as well as the left inguinal region largest measuring 2.2 cm involving the left inguinal region. Surrounding post surgical changes are seen involving the left inguinal region. No free air. No free fluid. 05/02/22 her groin node biopsy was positive for melanoma. she feels well. after the biopsy the node shrunk 50% 06/02/2022 Patient is here for cycle 2, day 1 Ipi/Nivo. Tolerated Cycle 1 well with no untoward side effects for the most part. She reportedly experienced whole body itching without rash the following day after treatment; but this resolved within 1-2 days with Benadryl. She reports mild fatigue, but denies diarrhea, nausea/vomiting or abdominal pain, cough, SOB. Chronic left LE edema. Lymph node is much smaller. 06/23/22 Labs are good. tolerating ipi nivo well without complaint> review of labs without any significant abnormality. sHE STILL gets a bit of a rash for a day or two after her treatment. She states it feels like here is crawling in her skin. lasts maybe 3 days. worse after hot showers. Benadryl really works for this. 08/11/22 She is doing well overall. She notes some tenderness in the L groin, this is more obvious recently. no rash after her treatments but she still gets pruritis. ct c/a/p from 08/08 notes Mediastinum:Thoracic aorta is normal in caliber. Pulmonary trunk appears nondilated. No pleural effusion. No lymphadenopathy. The esophagus is grosslyunremarkable. Small hiatal hernia. Lungs:Multiple solid noncalcified pulmonary nodules are seen within the left lung, largest measuring 8 mm in greatest axial dimension, once measuring 1 cm ingreatest axial dimension within the left upper lobe not seen on series 5 image 104. The right lung nodules appear to have resolved since the prior CT study. Mild bibasilar atelectasis. No pneumothorax, consolidation or pleural effusion. Soft tissues/Bones: Visualized soft tissues surrounding the chest wall demonstrate no acute findings. Osseous structures demonstrate degenerative change. CT abdomen and pelvis: Organs:Liver gallbladder portal vein spleen pancreas and adrenal glands all appear unremarkable. No enhancing renal mass or hydronephrosis. Abdominal aorta appears normal in caliber.[ GI: Distal stomach is grossly unremarkable. Small bowel appears nondilated. Appendix is normal. Left colon diverticulosis.[ Pelvis:[Urinary bladder is grossly unremarkable. IUD is in place. No adnexal mass. Post surgical changes are identified involving left groin region with a presumed enlarged necrotic lymph node measuring 4.9 cm in greatest axial dimension, once measuring 2.2 cm in short axis.] Peritoneum/Retroperitoneum:No free air or free fluid. Enlarged left pelvic sidewall lymph node now measuring 3.8 cm in short axis, once measuring 2 cm in short axis. Additional prominent left external iliac lymph nodes are noted. Abd wall/Bones:Abdominal wall demonstrate no acute findings. Osseous structuresdemonstrate degenerative change. IMPRESSION: Overall, mixed response to therapy is noted. Interval resolution of the right lung nodules compared to the prior study withinterval decrease of the dominant nodule involving the left upper lobe suggestive of response to therapy. No CT evidence of progression of disease within the chest. Interval progression size involving the left inguinal/external iliac lymphadenopathy when compared to the prior study suggestive of progression of disease. - Physical Exam ECOG PS: 0 General : patient is alert and oriented to person place and time, no acute distress. Neck: no JVD or thyromegaly. Lymph: no cervical, supraclavicular, axillary adenopathy. L groin 7 cm palpable mass. Heart: regular rate and rhythm no murmurs rubs or gallops. Abdomen: soft nontender nondistended, no hepatosplenomegaly. Lungs: cta bl, no wheezes, rales, rhonchi. Extremities: no clubbing cyanosis; 1 + LE edema (chronic) Goal of Treatment: Control - Time with Patient Coordination of Care & Counseling Time: Greater than 50% of time spent with patient was for coordination of care (as documented) and [id number] counseling of patient and/or family. [facility] - Medical History Medical History: Medical History (Last Reviewed 04/28/22 @ 08:09 by Bonnie Mistry RN) Basal cell carcinoma left mid upper back Cellulitis Essential hypertension Hyperlipidemia Malignant melanoma left distal lower anterior leg Malignant tumor of breast Skin graft disorder - Surgical History Surgical History: Surgical History (Last Reviewed 04/28/22 @ 08:09 by Bonnie Mistry RN) H/O left mastectomy - Family History Family History: Family History (Last Updated 10/07/21 @ 08:07 by Sheyla Espinoza) Other No significant family history - Social History Smoking Status: Never smoker Substance Use Type: None Additional Data - Additional Objective Data Height/Weight: Height 5 ft 3 in Weight 89.4 kg BSA for Today's Weight 1.99 Vital Signs: 08/11/22 10:28 Temperature 97.4 F L Pulse Rate [Right Brachial] 82 Respiratory Rate 20 Blood Pressure [Right Arm] 132/68 02 Sat by Pulse Oximetry 98 Oxygen Delivery Method Room Air - Lab Results Diagram of Most Recent CBC and CMP 08/08/22 09:00 08/08/22 09:00 Labs - Last 7 Days 08/08/22 09:00: ACTH 35.2 08/08/22 09:00: PHA Creatinine Clear 55.32, Sodium 139, Potassium 3.3 L, Chloride 102, Carbon Dioxide 29.1, Anion Gap 11.2, BUN 18, Creatinine 0.93, Est GFR ( Amer) > 60, Est GFR (Non-Af Amer) 59, Glucose 101 H, Calcium 9.3, Total Bilirubin 0.7, Direct Bilirubin < 0.1, Indirect Bilirubin TNP, AST 34, ALT32, Alkaline Phosphatase 99 H, Lactate Dehydrogenase 209 H, Total Protein 7.1, Albumin 4.0, Globulin 3.1, Albumin/Globulin Ratio 1.3, Lipase 33.0, Free T4 0.99, TSH 3rd Generation 2.80, Total Cortisol 11.8 08/08/22 09:00: Corrected WBC 7.6, Uncorrected WBC Count 7.6, RBC 4.98, Hgb 14.4, Hct 42.9, MCV 86.1, MCH 29.0, MCHC 33.6, RDW 14.7, Plt Count 216, MPV 7.5,Neut % (Auto) 58.6, Lymph % (Auto) 29.6, [place] % (Auto) 9.0, Eos % (Auto) 2.1, Baso % (Auto) 0.7, Nucleat RBC Rel Count 0.1, Neut # (Auto) 4.4, Lymph # (Auto) 2.2, [place] # (Auto) 0.7, Eos # (Auto) 0.2, Baso # (Auto) 0.1 - Home Medications and Allergies Allergies/Adverse Reactions: Allergies Penicillins Allergy (Verified 06/23/22 10:44) Unknown Reaction Home Medications: Home Medications hydrochlorothiazide 25 mg tablet 25 mg PO DAILY 10/04/21 [History Confirmed 08/11/22] rosuvastatin 10 mg tablet 10 mg PO DAILY 10/04/21 [History Confirmed 08/11/22] Dictated By: Sly Benson II, DO DD/ 1046 Signed By: <Electronically signed by Sly Benson II, DO> 08/11/22 110[address] [facility] Work Phone: Progress note Author Sly Benson [facility] September 08, 2022 10:18am Note Date/Time September 08, 2022 10:08am [facility] at [address] [address] Hem/Onc Follow Up Note - OP Signed Patient: Theresa Luu MR#: [id number] : 1945 Acct:[id number] Age/Sex: 76 / F Type: REG RCR Copies to: Yoni DO Alex Brown MD~ Date of Service: 09/08/2022 Time of Service: 10:04 - Assessment & Plan (1) Melanoma Plan: 1.) Metastatic stage IV melanoma - BRAF negative , recurrent in mar 2022, originally T4bN1a stage iiic L ankle. Resected november 2020, not given adjuvant therapy because patient was hesitant and initial consult was 10 months after resection. Repeat imaging in September 2021 showed no evidence of metastatic disease. Recurrent metastatic in mar 2022. pulmonary nodules and recurrent disease in the L groin, left pelvic sidewall. Will start Nivo 3mg/kg every 3wks, Ipilimumab 1mg/kg every 3 weeks. will drop ipilimumab after 4 doses 06/02/2022: cycle 2, day 1 Ipi/Nivo. 06/23/[address] scan with doubling of the size of the groin node and pelvic nodule. She had improvement /resolution of the lung nodularity. 08/11/22 to get first maintenance nivo today. 09/08/21 get c2 maintenance nivo. i suggest considering radiation of her two large metastatic deposits in groin/pelvis L side. she has had resposnes to presumed metastatic disease in thelungs. she continues to essentially refuse chemotherapy. had 5 fractions of radiation to her L groin node completed in 09/01/21. Her pelvic sidewall lesion was not radiated, will consider radiating later. Follow Up Instructions: cont nivo. f/u in a month. cbc, cmp, tsh , t4 prior to f/u. - History of Present Illness Chief Complaint: Patient is here for a one month follow up with outside labs forreview, prior to treatment today. Patient reports left groin pain. HPI: 76-year-old female referred for melanoma primary patient of Yoni Muller, pastmedical history includes essential hypertension, basal cell carcinoma on her upper back in September 2020hyperlipidemia, malignant tumor of the breast in September 1996 on the left side she had a mastectomy with no chemotherapy or radiation. Outpatient medications include hydrochlorothiazide and simvastatin. She initially had a left lower leg melanoma removed by Dr. Trammell at [facility] in November 162020 with sentinel node biopsy and 2+ nodes. Dr. Trammell notes that the margin was clear, she had a wide resection of the primary melanoma with 2 cm margins, mitotic rate was 6/m?, margins were negative, she had a skin substitute placement and left inguinal sentinel lymph node biopsy. There was noted and in-transit metastasis, left sentinel lymph node noted to have 2+ cells, 2 separate nonsentinel node biopsies were negative. There was 9.5 mm breath lobe depth remaining noted by the wide resection after the initial shave biopsy she was referred for medical oncology but did not schedule. She missed several follow-up appointments with her surgeon and dermatology. Most recently she did follow-up with Dr. Trammell in September 2021. She had had a PET/CT on 10/31/2020 with no evidence of distant metastatic disease. She did have hypermetabolic exophytic soft tissue nodule along the left medial leg, some brightness in the left patellar region, right hand, and several systemic lymph nodes likely reactive. 10/07/21 She gets a little edema in that leg. She has no other issues. Recently saw and has CT scans scheduled for at [facility]. She is doing well, no major medical issues this year once the wound vac was removed from her leg. 10/28/[address] imaging from October 01, 2021 shows no obvious evidence of metastatic disease. Small nonspecific abdominal pelvic and inguinal nodes, 3 cm right ovarian cyst. Punch biopsy performed by Dr. Trammell from September 17, 2021 of the surgical scar and anterior lower leg were both negative for melanoma. 04/21/22 recent c t images with evidence of recurrence. She feels well otherwise. no new complaints. in hindsight had pulmonary nodule previously. She has large palpable mass in her L groin. ct chest abd pelvis from 03/26/22 1. New bilateral pulmonary nodules, largest measuring 1 cm within the left upper lobe suggestive of progression of disease. 2. New prominent to enlarged left pelvic sidewall, left external iliac and inguinal lymph nodes suspicious for progression of disease. Peritoneum/Retroperitoneum:Enlarged left pelvic sidewall lymph node measuring 2 cm in short axis with additional prominent to enlarged lymph nodes are seen along the left external iliac chain as well as the left inguinal region largest measuring 2.2 cm involving the left inguinal region. Surrounding post surgical changes are seen involving the left inguinal region. No free air. No free fluid. 05/02/22 her groin node biopsy was positive for melanoma. she feels well. after the biopsy the node shrunk 50% 06/02/2022 Patient is here for cycle 2, day 1 Ipi/Nivo. Tolerated Cycle 1 well with no untoward side effects for the most part. She reportedly experienced whole body itching without rash the following day after treatment; but this resolved within 1-2 days with Benadryl. She reports mild fatigue, but denies diarrhea, nausea/vomiting or abdominal pain, cough, SOB. Chronic left LE edema. Lymph node is much smaller. 06/23/22 Labs are good. tolerating ipi nivo well without complaint> review of labs without any significant abnormality. sHE STILL gets a bit of a rash for a day or two after her treatment. She states it feels like here is crawling in her skin. lasts maybe 3 days. worse after hot showers. Benadryl really works for this. 08/11/22 She is doing well overall. She notes some tenderness in the L groin, this is more obvious recently. no rash after her treatments but she still gets pruritis. ct c/a/p from 08/08 notes Mediastinum:Thoracic aorta is normal in caliber. Pulmonary trunk appears nondilated. No pleural effusion. No lymphadenopathy. The esophagus is grosslyunremarkable. Small hiatal hernia. Lungs:Multiple solid noncalcified pulmonary nodules are seen within the left lung, largest measuring 8 mm in greatest axial dimension, once measuring 1 cm ingreatest axial dimension within the left upper lobe not seen on series 5 image 104. The right lung nodules appear to have resolved since the prior CT study. Mild bibasilar atelectasis. No pneumothorax, consolidation or pleural effusion. Soft tissues/Bones: Visualized soft tissues surrounding the chest wall demonstrate no acute findings. Osseous structures demonstrate degenerative change. CT abdomen and pelvis: Organs:Liver gallbladder portal vein spleen pancreas and adrenal glands all appear unremarkable. No enhancing renal mass or hydronephrosis. Abdominal aorta appears normal in caliber.[ GI: Distal stomach is grossly unremarkable. Small bowel appears nondilated. Appendix is normal. Left colon diverticulosis.[ Pelvis:[Urinary bladder is grossly unremarkable. IUD is in place. No adnexal mass. Post surgical changes are identified involving left groin region with a presumed enlarged necrotic lymph node measuring 4.9 cm in greatest axial dimension, once measuring 2.2 cm in short axis.] Peritoneum/Retroperitoneum:No free air or free fluid. Enlarged left pelvic sidewall lymph node now measuring 3.8 cm in short axis, once measuring 2 cm in short axis. Additional prominent left external iliac lymph nodes are noted. Abd wall/Bones:Abdominal wall demonstrate no acute findings. Osseous structuresdemonstrate degenerative change. IMPRESSION: Overall, mixed response to therapy is noted. Interval resolution of the right lung nodules compared to the prior study withinterval decrease of the dominant nodule involving the left upper lobe suggestive of response to therapy. No CT evidence of progression of disease within the chest. Interval progression size involving the left inguinal/external iliac lymphadenopathy when compared to the prior study suggestive of progression of disease. 09/08/22 She is doing well overall. no major complaints. Still with pain in the L groin. She see palliative today. She has had dramatic improvement in the groin node palpable there. vazquez d5 fractions of radiation to her L groin node. Her pelvic sidewall lesion was not radiated, will consider radiating later. - Physical Exam ECOG PS: 0 General : patient is alert and oriented to person place and time, no acute distress. Neck: no JVD or thyromegaly. Lymph: no cervical, supraclavicular, axillary adenopathy. L groin 5-7 cm palpable mass. less superficial now, softer. some erythema on skin after radition. Heart: regular rate and rhythm no murmurs rubs or gallops. Abdomen: soft nontender nondistended, no hepatosplenomegaly. Lungs: cta bl, no wheezes, rales, rhonchi. Extremities: no clubbing cyanosis; 1 + LE edema (chronic) Goal of Treatment: Control - Time with Patient Coordination of Care & Counseling Time: Greater than 50% of time spent with patient was for coordination of care (as documented) and [id number] counseling of patient and/or family. [facility] - Medical History Medical History: Medical History (Last Reviewed 04/28/22 @ 08:09 by Bonnie Mistry RN) Basal cell carcinoma left mid upper back Cellulitis Essential hypertension Hyperlipidemia Malignant melanoma left distal lower anterior leg Malignant tumor of breast Skin graft disorder - Surgical History Surgical History: Surgical History (Last Reviewed 04/28/22 @ 08:09 by Bonnie Mistry RN) H/O left mastectomy - Family History Family History: Family History (Last Updated 10/07/21 @ 08:07 by Sheyla Espinoza) Other No significant family history - Social History Smoking Status: Never smoker Substance Use Type: None Additional Data - Additional Objective Data Height/Weight: Height 5 ft 3 in Weight 90.2 kg BSA for Today's Weight 1.99 Vital Signs: 09/08/22 09:52 Temperature 97.9 F Pulse Rate [Right Brachial] 78 Respiratory Rate 20 Blood Pressure [Right Arm] 137/82 02 Sat by Pulse Oximetry 97 Oxygen Delivery Method Room Air Distress Screening: RN Distress Screening Start: 05/06/22 15:57 Freq: Q30D Status: Active Protocol: Document 09/08/22 10:00 AL (Rec: 09/08/22 10:03 AL [id number]) Distress Screening Distress Score: 6 Day to Day Concerns Insurance,Money Physical Concerns Pain,Trouble Sleeping Emotional Concerns Depression,Worry Problems talking or dealing with my: Friends/ co-workers Comments defer to patient navigators Distress Screening Total 6 Distress score of 4 or more discussed Refused with patient? Distress screening follow up: defer to patient navigators - Lab Results Diagram of Most Recent CBC and CMP 08/08/22 09:00 08/08/22 09:00 - Home Medications and Allergies Allergies/Adverse Reactions: Allergies Penicillins Allergy (Verified 06/23/22 10:44) Unknown Reaction Home Medications: Home Medications hydrochlorothiazide 25 mg tablet 25 mg PO DAILY 10/04/21 [History Confirmed 09/08/22] rosuvastatin 10 mg tablet 10 mg PO DAILY 10/04/21 [History Confirmed 09/08/22] potassium chloride 20 mEq tablet,extended release 20 meq PO DAILY #30 tabs 08/11/22 [Rx Confirmed 09/08/22] diazepam 5 mg tablet (Valium) 5 mg PO ONCE pain 1 day #10 tabs 08/12/22 [Rx Confirmed 09/08/22] Dictated By: Sly Benson II, DO DD/ 1004 Signed By: <Electronically signed by Sly Benson II, DO> 09/08/22 1018 [facility] Work Phone: Progress note Author Senia Montez [facility] December 30, 2022 11:06am Note Date/Time December 30, 2022 8:35 am [facility] [place] [address] Hem/Onc Follow Up Note - OP Signed Patient: Theresa Luu MR#: [id number] : 1945 Acct:[id number] Age/Sex: 77 / F Type: REG RCR Copies to: DO Alex Acuña MD, II, DO~ Date of Service: 12/30/2022 Time of Service: 08:33 - Assessment & Plan (1) Melanoma Plan: 1.) Metastatic stage IV melanoma - BRAF negative , recurrent in mar 2022, originally T4bN1a stage iiic L ankle. Resected november 2020, not given adjuvant therapy because patient was hesitant and initial consult was 10 months after resection. Repeat imaging in September 2021 showed no evidence of metastatic disease. Recurrent metastatic in mar 2022. pulmonary nodules and recurrent disease in the L groin, left pelvic sidewall. Nivo 3mg/kg every 3wks, Ipilimumab 1mg/kg every 3 weeks. - Completed 4 cycles of combination Ipilimumab + Nivolumab from 05/12/2022- 07/15/[address] scan with doubling of the size of the groin node and pelvic nodule. She had improvement /resolution of the lung nodularity. 08/11/22: Cycle 1 maintenance nivolumab imaging in late october 2022 with improvement in her disease by maybe 25%. continues maint nivo. December 2022 continues to tolerate therapy well without new concerns. will repeat imaging in and f/u after Completed palliative XRT to left inguinal fossa/lymph node in August 2022 withdramatic decrease in size No immunotherapy related toxicities - denies skin rash, diarrhea, stable laboratories No recent infections, cough, chest pain, SOB or weight loss, no new skin lesions Her pelvic sidewall lesion was not radiated, will consider radiating later. (2) Inguinal adenopathy (3) Encounter for antineoplastic immunotherapy Follow Up Instructions: nivo today and continue monthly labs per treatment plan CT scans as already scheduled follow-up after scans as already scheduled - History of Present Illness Chief Complaint: Patient is here today for a 2 month follow u visit for melanomaand has treatment today. No new concerns HPI: 76-year-old female referred for melanoma primary patient of Yoni Muller, pastmedical history includes essential hypertension, basal cell carcinoma on her upper back in September 2020hyperlipidemia, malignant tumor of the breast in September 1996 on the left side she had a mastectomy with no chemotherapy or radiation. Outpatient medications include hydrochlorothiazide and simvastatin. She initially had a left lower leg melanoma removed by Dr. Trammell at [facility] in November 162020 with sentinel node biopsy and 2+ nodes. Dr. Trammell notes that the margin was clear, she had a wide resection of the primary melanoma with 2 cm margins, mitotic rate was 6/m?, margins were negative, she had a skin substitute placement and left inguinal sentinel lymph node biopsy. There was noted and in-transit metastasis, left sentinel lymph nodenoted to have 2+ cells, 2 separate nonsentinel node biopsies were negative. There was 9.5 mm breath lobe depth remaining noted by the wide resection after the initial shave biopsy she was referred for medical oncology but did not schedule. She missed several follow-up appointments with her surgeon and dermatology. Most recently she did follow-up with Dr. Trammell in September 2021. She had had a PET/CT on 10/31/2020 with no evidence of distant metastatic disease. She did have hypermetabolic exophytic soft tissue nodule along the left medial leg, some brightness in the left patellar region, right hand, and several systemic lymph nodes likely reactive. 10/07/21 She gets a little edema in that leg. She has no other issues. Recently saw and has CT scans scheduled for at [facility]. She is doing well, no major medical issues this year once the wound vac was removed from her leg. 10/28/[address] imaging from October 01, 2021 shows no obvious evidence of metastatic disease. Small nonspecific abdominal pelvic and inguinal nodes, 3 cm right ovarian cyst. Punch biopsy performed by Dr. Trammell from September 17, 2021 of the surgical scar and anterior lower leg were both negative for melanoma. 04/21/22 recent c t images with evidence of recurrence. She feels well otherwise. no new complaints. in hindsight had pulmonary nodule previously. She has large palpable mass in her L groin. ct chest abd pelvis from 03/26/22 1. New bilateral pulmonary nodules, largest measuring 1 cm within the left upper lobe suggestive of progression of disease. 2. New prominent to enlarged left pelvic sidewall, left external iliac and inguinal lymph nodes suspicious for progression of disease. Peritoneum/Retroperitoneum:Enlarged left pelvic sidewall lymph node measuring 2 cm in short axis with additional prominent to enlarged lymph nodes are seen along the left external iliac chain as well as the left inguinal region largest measuring 2.2 cm involving the left inguinal region. Surrounding post surgical changes are seen involving the left inguinal region. No free air. No free fluid. 05/02/22 her groin node biopsy was positive for melanoma. she feels well. after the biopsy the node shrunk 50% 06/02/2022 Patient is here for cycle 2, day 1 Ipi/Nivo. Tolerated Cycle 1 well with no untoward side effects for the most part. She reportedly experienced whole body itching without rash the following day after treatment; but this resolved within 1-2 days with Benadryl. She reports mild fatigue, but denies diarrhea, nausea/vomiting or abdominal pain, cough, SOB. Chronic left LE edema. Lymph node is much smaller. 06/23/22 Labs are good. tolerating ipi nivo well without complaint> review of labs without any significant abnormality. sHE STILL gets a bit of a rash for a day or two after her treatment. She states it feels like here is crawling in her skin. lasts maybe 3 days. worse after hot showers. Benadryl really works for this. 08/11/22 She is doing well overall. She notes some tenderness in the L groin, this is more obvious recently. no rash after her treatments but she still gets pruritis. ct c/a/p from 08/08 notes Mediastinum:Thoracic aorta is normal in caliber. Pulmonary trunk appears nondilated. No pleural effusion. No lymphadenopathy. The esophagus is grosslyunremarkable. Small hiatal hernia. Lungs:Multiple solid noncalcified pulmonary nodules are seen within the left lung, largest measuring 8 mm in greatest axial dimension, once measuring 1 cm ingreatest axial dimension within the left upper lobe not seen on series 5 image 104. The right lung nodules appear to have resolved since the prior CT study. Mild bibasilar atelectasis. No pneumothorax, consolidation or pleural effusion. Soft tissues/Bones: Visualized soft tissues surrounding the chest wall demonstrate no acute findings. Osseous structures demonstrate degenerative change. CT abdomen and pelvis: Organs:Liver gallbladder portal vein spleen pancreas and adrenal glands all appear unremarkable. No enhancing renal mass or hydronephrosis. Abdominal aorta appears normal in caliber.[ GI: Distal stomach is grossly unremarkable. Small bowel appears nondilated. Appendix is normal. Left colon diverticulosis.[ Pelvis:[Urinary bladder is grossly unremarkable. IUD is in place. No adnexal mass. Post surgical changes are identified involving left groin region with a presumed enlarged necrotic lymph node measuring 4.9 cm in greatest axial dimension, once measuring 2.2 cm in short axis.] Peritoneum/Retroperitoneum:No free air or free fluid. Enlarged left pelvic sidewall lymph node now measuring 3.8 cm in short axis, once measuring 2 cm in short axis. Additional prominent left external iliac lymph nodes are noted. Abd wall/Bones:Abdominal wall demonstrate no acute findings. Osseous structuresdemonstrate degenerative change. IMPRESSION: Overall, mixed response to therapy is noted. Interval resolution of the right lung nodules compared to the prior study withinterval decrease of the dominant nodule involving the left upper lobe suggestive of response to therapy. No CT evidence of progression of disease within the chest. Interval progression size involving the left inguinal/external iliac lymphadenopathy when compared to the prior study suggestive of progression of disease. 09/08/22 She is doing well overall. no major complaints. Still with pain in the L groin. She see palliative today. She has had dramatic improvement in the groin node palpable there. vazquez d5 fractions of radiation to her L groin node. Her pelvic sidewall lesion was not radiated, will consider radiating later. 10/06/2022 She is doing well overall Completed palliative XRT to left inguinal fossa/lymph node in August 2022 withdramatic decrease in size No immunotherapy related toxicities - denies skin rash, diarrhea, stable laboratories No recent infections, cough, chest pain, SOB or weight loss, no new skin lesions Okay to proceed with maintenance Nivolumab Q28 day dosing today - today is Cycle2 maintenance 11/03/[address] has [address] recent ct c/a/p with contrast notes maybe 25% reduction in size of her existing pulmonary nodules as well as the pelvic lymphadenopathy consistent with response to therapy. No CT evidence of progression of disease is seen. She is tolerating her immunotherapy well over. No rash no diarrhea. tolerating nivo maintenance. 12/30/22 she is doing well overall, is dealing with allergies currently eating and drinking ok, no n/v/d or belly pain no rash, shortness of breath or chest pain energy is ok other than the day or two after treatment labs stable, continues nivo maintenance - Physical Exam ECOG PS:0 General : patient is alert and oriented to person place and time, no acute distress. Neck: no JVD or thyromegaly. Lymph: no cervical, supraclavicular, axillary adenopathy. Heart: regular rate and rhythm no murmurs rubs or gallops. Abdomen: soft tender centrally, nondistended, no hepatosplenomegaly. Lungs: clear to auscultation bilaterally. No wheezes, rales, rhonchi. Extremities: no clubbing cyanosis Goal of Treatment: Control - Time with Patient Coordination of Care & Counseling Time: Greater than 50% of time spent with patient was for coordination of care (as documented) and [id number] counseling of patient and/or family. [facility] - Medical History Medical History: Medical History (Last Reviewed 04/28/22 @ 08:09 by Bonnie Mistry RN) Basal cell carcinoma left mid upper back Cellulitis Essential hypertension Hyperlipidemia Malignant melanoma left distal lower anterior leg Malignant tumor of breast Skin graft disorder - Surgical History Surgical History: Surgical History (Last Reviewed 04/28/22 @ 08:09 by Bonnie Mistry RN) H/O left mastectomy - Family History Family History: Family History (Last Updated 10/07/21 @ 08:07 by Sheyla Espinoza) Other No significant family history - Social History Smoking Status: Never smoker Substance Use Type: None Additional Data - Additional Objective Data Height/Weight: Height 5 ft 3 in Weight 88.451 kg BSA for Today's Weight 1.99 Vital Signs: 12/30/22 08:26 Temperature 97.8 F Pulse Rate [Right Brachial] 86 Respiratory Rate 16 Blood Pressure [Right Arm] 132/81 02 Sat by Pulse Oximetry 98 Oxygen Delivery Method Room Air Distress Screening: RN Distress Screening Start: 05/06/22 15:57 Freq: Q30D Status: Active Protocol: Document 09/08/22 10:00 AL (Rec: 09/08/22 10:03 AL [id number]) Distress Screening Distress Score: 6 Day to Day Concerns Insurance,Money Physical Concerns Pain,Trouble Sleeping Emotional Concerns Depression,Worry Problems talking or dealing with my: Friends/ co-workers Comments defer to patient navigators Distress Screening Total 6 Distress score of 4 or more discussed Refused with patient? Distress screening follow up: defer to patient navigators - Lab Results Diagram of Most Recent CBC and CMP 10/31/22 08:43 10/31/22 08:43 - Home Medications and Allergies Allergies/Adverse Reactions: Allergies Penicillins Allergy (Verified 12/30/22 08:26) Unknown Reaction Home Medications: Home Medications hydrochlorothiazide 25 mg tablet 25 mg PO DAILY 10/04/21 [History Confirmed 12/30/22] rosuvastatin 10 mg tablet 10 mg PO DAILY 10/04/21 [History Confirmed 12/30/22] Dictated By: Senia Montez APRN DD/ Signed By: <Electronically signed by ANTOINETTE Montez> 12/30/22 [address] [facility] Work Phone: Progress note Author Sly Benson [facility] March 06, 2023 2:40pm Note Date/Time March 06, 2023 2: 37pm [facility] [place] [address] Hem/Onc Follow Up Note - OP Signed Patient: Theresa Luu MR#: [id number] : 1945 Acct:[id number] Age/Sex: 77 / F Type: REG RCR Copies to: DO Alex Acuña MD~ Date of Service: 03/06/2023 Time of Service: 14:34 - Assessment & Plan (1) Melanoma Plan: 1.) Metastatic stage IV melanoma - BRAF negative , recurrent in mar 2022, originally T4bN1a stage iiic L ankle. Resected november 2020, not given adjuvant therapy because patient was hesitant and initial consult was 10 months after resection. Repeat imaging in September 2021 showed no evidence of metastatic disease. Recurrent metastatic in mar 2022. pulmonary nodules and recurrent disease in the L groin, left pelvic sidewall. Nivo 3mg/kg every 3wks, Ipilimumab 1mg/kg every 3 weeks. - Completed 4 cycles of combination Ipilimumab + Nivolumab from 05/12/2022- 07/15/[address] scan with doubling of the size of the groin node and pelvic nodule. She had improvement /resolution of the lung nodularity. 08/11/22: Cycle 1 maintenance nivolumab imaging in late october 2022 with improvement in her disease by maybe 25%. continues maint nivo. December 2022 continues to tolerate therapy well without new concerns. february [address]23 ct imaging with continued resposne, minimal overall disease. Completed palliative XRT to left inguinal fossa/lymph node in August 2022 withdramatic decrease in size No immunotherapy related toxicities - denies skin rash, diarrhea, stable laboratories No recent infections, cough, chest pain, SOB or weight loss, no new skin lesions Her pelvic sidewall lesion was not radiated, will consider radiating later. (2) Inguinal adenopathy (3) Encounter for antineoplastic immunotherapy Follow Up Instructions: ct c/a/p wwith contrast in 4 or 5 mos and f/u after. cont nivolumab. cbc, cmp t4 tsh prior to nivo days. - History of Present Illness Chief Complaint: Patient is here today for a 2 month follow up visit and go overlabs and CT scans HPI: 76-year-old female referred for melanoma primary patient of Yoni Muller, pastmedical history includes essential hypertension, basal cell carcinoma on her upper back in September 2020hyperlipidemia, malignant tumor of the breast in September 1996 on the left side she had a mastectomy with no chemotherapy or radiation. Outpatient medications include hydrochlorothiazide and simvastatin. She initially had a left lower leg melanoma removed by Dr. Trammell at [facility] in November 162020 with sentinel node biopsy and 2+ nodes. Dr. Trammell notes that the margin was clear, she had a wide resection of the primary melanoma with 2 cm margins, mitotic rate was 6/m?, margins were negative, she had a skin substitute placement and left inguinal sentinel lymph node biopsy. There was noted and in-transit metastasis, left sentinel lymph node noted to have 2+ cells, 2 separate nonsentinel node biopsies were negative. There was 9.5 mm breath lobe depth remaining noted by the wide resection after the initial shave biopsy she was referred for medical oncology but did not schedule. She missed several follow-up appointments with her surgeon and dermatology. Most recently she did follow-up with Dr. Trammell in September 2021. She had had a PET/CT on 10/31/2020 with no evidence of distant metastatic disease. She did have hypermetabolic exophytic soft tissue nodule along the left medial leg, some brightness in the left patellar region, right hand, and severalsystemic lymph nodes likely reactive. 10/07/21 She gets a little edema in that leg. She has no other issues. Recently saw and has CT scans scheduled for at [facility]. She is doing well, no major medical issues this year once the wound vac was removed from her leg. 10/28/[address] imaging from October 01, 2021 shows no obvious evidence of metastatic disease. Small nonspecific abdominal pelvic and inguinal nodes, 3 cm right ovarian cyst. Punch biopsy performed by Dr. Trammell from September 17, 2021 of the surgical scar and anterior lower leg were both negative for melanoma. 04/21/22 recent c t images with evidence of recurrence. She feels well otherwise. no new complaints. in hindsight had pulmonary nodule previously. She has large palpable mass in her L groin. ct chest abd pelvis from 03/26/22 1. New bilateral pulmonary nodules, largest measuring 1 cm within the left upper lobe suggestive of progression of disease. 2. New prominent to enlarged left pelvic sidewall, left external iliac and inguinal lymph nodes suspicious for progression of disease. Peritoneum/Retroperitoneum:Enlarged left pelvic sidewall lymph node measuring 2 cm in short axis with additional prominent to enlarged lymph nodes are seen along the left external iliac chain as well as the left inguinal region largest measuring 2.2 cm involving the left inguinal region. Surrounding post surgical changes are seen involving the left inguinal region. No free air. No free fluid. 05/02/22 her groin node biopsy was positive for melanoma. she feels well. after the biopsy the node shrunk 50% 06/02/2022 Patient is here for cycle 2, day 1 Ipi/Nivo. Tolerated Cycle 1 well with no untoward side effects for the most part. She reportedly experienced whole body itching without rash the following day after treatment; but this resolved within 1-2 days with Benadryl. She reports mild fatigue, but denies diarrhea, nausea/vomiting or abdominal pain, cough, SOB. Chronic left LE edema. Lymph node is much smaller. 06/23/22 Labs are good. tolerating ipi nivo well without complaint> review of labs without any significant abnormality. sHE STILL gets a bit of a rash for a day or two after her treatment. She states it feels like here is crawling in her skin. lasts maybe 3 days. worse after hot showers. Benadryl really works for this. 08/11/22 She is doing well overall. She notes some tenderness in the L groin, this is more obvious recently. no rash after her treatments but she still gets pruritis. ct c/a/p from 08/08 notes Mediastinum:Thoracic aorta is normal in caliber. Pulmonary trunk appears nondilated. No pleural effusion. No lymphadenopathy. The esophagus is grosslyunremarkable. Small hiatal hernia. Lungs:Multiple solid noncalcified pulmonary nodules are seen within the left lung, largest measuring 8 mm in greatest axial dimension, once measuring 1 cm ingreatest axial dimension within the left upper lobe not seen on series 5 image 104. The right lung nodules appear to have resolved since the prior CT study. Mild bibasilar atelectasis. No pneumothorax, consolidation or pleural effusion. Soft tissues/Bones: Visualized soft tissues surrounding the chest wall demonstrate no acute findings. Osseous structures demonstrate degenerative change. CT abdomen and pelvis: Organs:Liver gallbladder portal vein spleen pancreas and adrenal glands all appear unremarkable. No enhancing renal mass or hydronephrosis. Abdominal aorta appears normal in caliber.[ GI: Distal stomach is grossly unremarkable. Small bowel appears nondilated. Appendix is normal. Left colon diverticulosis.[ Pelvis:[Urinary bladder is grossly unremarkable. IUD is in place. No adnexal mass. Post surgical changes are identified involving left groin region with a presumed enlarged necrotic lymph node measuring 4.9 cm in greatest axial dimension, once measuring 2.2 cm in short axis.] Peritoneum/Retroperitoneum:No free air or free fluid. Enlarged left pelvic sidewall lymph node now measuring 3.8 cm in short axis, once measuring 2 cm in short axis. Additional prominent left external iliac lymph nodes are noted. Abd wall/Bones:Abdominal wall demonstrate no acute findings. Osseous structuresdemonstrate degenerative change. IMPRESSION: Overall, mixed response to therapy is noted. Interval resolution of the right lung nodules compared to the prior study withinterval decrease of the dominant nodule involving the left upper lobe suggestive of response to therapy. No CT evidence of progression of disease within the chest. Interval progression size involving the left inguinal/external iliac lymphadenopathy when compared to the prior study suggestive of progression of disease. 09/08/22 She is doing well overall. no major complaints. Still with pain in the L groin. She see palliative today. She has had dramatic improvement in the groin node palpable there. vazquez d5 fractions of radiation to her L groin node. Her pelvic sidewall lesion was not radiated, will consider radiating later. 10/06/2022 She is doing well overall Completed palliative XRT to left inguinal fossa/lymph node in August 2022 withdramatic decrease in size No immunotherapy related toxicities - denies skin rash, diarrhea, stable laboratories No recent infections, cough, chest pain, SOB or weight loss, no new skin lesions Okay to proceed with maintenance Nivolumab Q28 day dosing today - today is Cycle2 maintenance 11/03/22 She has had recent ct c/a/p with contrast notes maybe 25% reduction in size of her existing pulmonary nodules as well as the pelvic lymphadenopathy consistent with response to therapy. No CT evidence of progression of disease is seen. She is tolerating her immunotherapy well over. No rash no diarrhea. tolerating nivo maintenance. 12/30/22 she is doing well overall, is dealing with allergies currently eating and drinking ok, no n/v/d or belly pain no rash, shortness of breath or chest pain energy is ok other than the day or two after treatment labs stable, continues nivo maintenance 03/06/23 she is doing well, no side effects of nivolumab. recent ct c/a/ap with resolution of L inguinal nodes, persistent necrotic unchanged L iliac nodes. - Physical Exam ECOG PS:0 General : patient is alert and oriented to person place and time, no acute distress. Neck: no JVD or thyromegaly. Lymph: no cervical, supraclavicular, axillary adenopathy. Heart: regular rate and rhythm no murmurs rubs or gallops. Abdomen: soft tender centrally, nondistended, no hepatosplenomegaly. Lungs: clear to auscultation bilaterally. No wheezes, rales, rhonchi. Extremities: no clubbing cyanosis Goal of Treatment: Control - Time with Patient Coordination of Care & Counseling Time: Greater than 50% of time spent with patient was for coordination of care (as documented) and [id number] counseling of patient and/or family. [facility] - Medical History Medical History: Medical History (Last Reviewed 04/28/22 @ 08:09 by Bonnie Mistry RN) Basal cell carcinoma left mid upper back Cellulitis Essential hypertension Hyperlipidemia Malignant melanoma left distal lower anterior leg Malignant tumor of breast Skin graft disorder - Surgical History Surgical History: Surgical History (Last Reviewed 04/28/22 @ 08:09 by Bonnie Mistry RN) H/O left mastectomy - Family History Family History: Family History (Last Updated 10/07/21 @ 08:07 by Sheyla Espinoza) Other No significant family history - Social History Smoking Status: Never smoker Substance Use Type: None Additional Data - Additional Objective Data Height/Weight: Height 5 ft 3 in Weight 89.358 kg BSA for Today's Weight 1.94 Vital Signs: 03/06/23 13:49 Temperature 97.8 F Pulse Rate [Right Brachial] 87 Respiratory Rate 16 Blood Pressure [Right Arm] 139/71 02 Sat by Pulse Oximetry 94 L Oxygen Delivery Method Room Air Distress Screening: RN Distress Screening Start: 05/06/22 15:57 Freq: Q30D Status: Active Protocol: Document 09/08/22 10:00 AL (Rec: 09/08/22 10:03 AL [id number]) Distress Screening Distress Score: 6 Day to Day Concerns Insurance,Money Physical Concerns Pain,Trouble Sleeping Emotional Concerns Depression,Worry Problems talking or dealing with my: Friends/ co-workers Comments defer to patient navigators Distress Screening Total 6 Distress score of 4 or more discussed Refused with patient? Distress screening follow up: defer to patient navigators - Lab Results Diagram of Most Recent CBC and CMP 03/05/23 09:35 03/05/23 09:35 Labs - Last 7 Days 03/05/23 09:35: ACTH 25.6 03/05/23 09:35: Corrected WBC 6.3, Uncorrected WBC Count 6.3, RBC 4.51, Hgb 13.6, Hct 39.8, MCV 88.1, MCH 30.2, MCHC 34.3, RDW 14.3, Plt Count 190, MPV 7.2,Neut % (Auto) 66.0, Lymph % (Auto) 23.1, [place] % (Auto) 8.4, Eos % (Auto) 1.7, Baso % (Auto) 0.8, Nucleat RBC Rel Count 0.0, Neut # (Auto) 4.1, Lymph # (Auto) 1.4, [place] # (Auto) 0.5, Eos # (Auto) 0.1, Baso # (Auto) 0.0 03/05/23 09:35: PHA Creatinine Clear 54.20, Sodium 141, Potassium 3.8, Chloride 104, Carbon Dioxide 28.0, Anion Gap 12.8, BUN 17, Creatinine 0.91, Est GFR (CKD-EPI) > 60.0, Glucose 102 H, Calcium 9.4, Total Bilirubin 0.6, AST 23, ALT 22, Alkaline Phosphatase 106 H, Lactate Dehydrogenase 197, Total Protein 6.9, Albumin 4.1, Globulin 2.8, Albumin/Globulin Ratio 1.5, Free T4 0.94, TSH 3rd Generation 2.49 - Home Medications and Allergies Allergies/Adverse Reactions: Allergies Penicillins Allergy (Verified 03/06/23 13:48) Unknown Reaction Home Medications: Home Medications hydrochlorothiazide 25 mg tablet 25 mg PO DAILY 10/04/21 [History Confirmed 03/06/23] rosuvastatin 10 mg tablet 10 mg PO DAILY 10/04/21 [History Confirmed 03/06/23] Dictated By: Sly Benson II, DO DD/ 1434 Signed By: <Electronically signed by Sly Benson II, DO> 03/06/23 1440 [facility] Work Phone: Reason for referral (narrative)* Name Reason for referral [facility] Assessments N/A Reason for Referral Name Reason for referral NA Summary Purpose Family History No Family History Records Found Relationship Condition Age at Onset Recorded Date/T clari Not Specified No pertinent family history Unknown Advance Directives No Advanced Directives Records Found Advance Directive Response Recorded Date/ Time Advance Directives No October 04 10:02am Advance Directive Response Recorded Date/ Time Advance Directives No October 04 9:02am Chief Complaint Left distal lower anterior leg exophytic melanomaAttention to surgical wound and Integra graft s/p excision of Left distal lower anterior leg exophytic melanoma Attention to surgical wound and Integra graft s/p excision of Left distal lower anterior leg exophytic melanomaLeft distal lower anterior leg exophytic melanoma Left distal lower anterior leg exophytic melanoma Chief Complaint and Reason for Visit Chief Complaint Melanoma Reason for Visit Melanoma Chief Complaint Melanoma c43.72 Reason for Visit Melanoma Chief Complaint c43.72 Melanoma Reason for Visit Melanoma Chief Complaint c43.72 Chief Complaint c43.72 Melanoma C43.9 Reason for Visit Melanoma Inguinal adenopathy Chief Complaint c43.72 C43.9 Melanoma Reason for Visit Inguinal adenopathy Melanoma Chief Complaint Melanoma Reason for Visit Inguinal adenopathy Melanoma Chief Complaint Melanoma Reason for Visit Encounter for antine oplastic immunotherapy Inguinal adenopathy Melanoma Additional Source Comments INFORMATION SOURCE (unrecogn ized section and content) DATE CREATED AUTHOR 11/07/2020 [facility] DATE CREATED AUTHOR AUTHOR'S ORGANIZ ATION 12/04/2020 [facility] DATE CREATED AUTHOR AUTHOR'S ORGANIZ ATION 12/10/2020 [facility] DATE CREATED AUTHOR AUTHOR'S ORGANIZ ATION 05/12/2021 [facility] DATE CREATED AUTHOR AUTHOR'S ORGANIZ ATION 09/23/2021 [facility] DATE CREATED AUTHOR AUTHOR'S ORGANIZ ATION 09/28/2021 [facility] DATE CREATED AUTHOR AUTHOR'S ORGANIZ ATION 10/06/2022 [facility] DATE CREATED AUTHOR AUTHOR'S ORGANIZ ATION 06/18/2023 [facility] Care Teams (unrecognized sec tion and content) Team Status: Active Member Role Status Dates Yoni Muller DO Primary Care Provider Active Team Status: Active Member Role Status Dates Sly Benson II, DO Attending Provider Active Yoni Muller DO Primary Care Provider Active Alex Trammell MD Referring Provider Active Team Status: Inactive Member Role Status Dates Alex Trammell MD Attending Provider Active Yoni Muller DO Primary Care Provider Active Team Status: Inactive Member Role Status Dates Yoni Muller , DO Primary Care Provider Active Alex Trammell MD Attending Provider Active Team Status: Inactive Member Role Status Dates Yoni Muller , DO Primary Care Provider Active Sly Benson II, DO Attending Provider Active Goals (unrecognized section and content) Goals may be documented in a n alternate sectionGoals may be documented in an alternate sectionGoals may be documented in an alternate sectionGoals may be documented in an alternate sectionGoals may be documented in an alternate sectionGoals may be documented in an alternate sectionGoals may be documented in an alternate sectionGoals may be documented in an alternate sectionGoals may be documented in an alternate sectionGoals may be documented in an alternate sectionGoals may be documented in an alternate sectionGoals may be documented in an alternate sectionGoals may be documented in an alternate sectionNo Information REASON FOR VISIT (unrecogniz ed section and content) Pt here for follow up at [facility]. Advanced care planning discussed / finish paperwork today FOR RECORDS PERTAINING TO PATIENTS WHO ARE OR HAVE BEEN ENROLLED IN A CHEMICAL DEPENDENCY/SUBSTANCEABUSE PROGRAM, SOME INFORMATION MAY BE OMITTED. This clinical summary was aggregated from multiple sources. Caution should be exercised in using it in the provision of clinical care. This summary normalizes information from multiple sources, and as a consequence, information in this document may materially change the coding, format and clinical context of patient data. In addition, data may be omitted in some cases. CLINICAL DECISIONS SHOULD BE BASED ON THE PRIMARY CLINICAL RECORDS. [facility] [employer] [facility]. provides no warranty or guarantee of the accuracy or completeness of information in this document.
[2023-07-10 07:56] LABS: Basophils Percent Auto 0.5 % (0.2-2.0); Eosinophils Absolute Auto 0.1 10^3/uL (0.0-0.7); Eosinophils Percent Auto 1.9 % (0.9-7.0); Hematocrit 41.3 % (36.0-48.0); Hemoglobin 13.4 g/dL (12.0-16.0); Immature Granulocytes Abs Auto 0.03 10^3/uL (0.00-0.03); Immature Granulocytes Pct Auto 0.5 % (0.0-0.5); Lymphocytes Absolute Auto 2.2 10^3/uL (1.2-3.8); Mean Corpuscular HGB Conc 32.4 g/dL (29.9-35.2); Mean Corpuscular Hemoglobin 29.8 pg (26.7-34.0); Mean Corpuscular Volume 91.8 fL (81.0-99.0); Mean Platelet Volume 9.3 fL (9.5-13.5); Monocytes Absolute Auto 0.6 10^3/uL (0.3-0.8); Monocytes Percent Auto 9.3 % (1.7-12.0); Neutrophils Absolute Auto 3.4 10^3/uL (1.4-6.5); Neutrophils Percent Auto 53.8 % (43.0-75.0); Platelet Count 205 10^3/uL (150-450); Red Cell Distribution Width 12.5 % (11.0-15.0); White Blood Count 6.4 10^3/uL (4.0-11.0)
[2023-07-10 08:50] LABS: Free T4 1.11 ng/dL (0.76-1.46)
[2023-07-10 10:55] LABS: Alanine Aminotransferase 45 U/L (14-59); Albumin Globulin Ratio 0.9; Albumin Level 3.4 g/dL (3.4-5.0); Alkaline Phosphatase 121 U/L (46-116); Anion Gap 9.6; Aspartate Amino Transferase 38 U/L (15-37); BUN Creatinine Ratio 19.4; Bilirubin Direct 0.1 mg/dL (0.0-0.2); Bilirubin Total 0.4 mg/dL (0.2-1.0); Calcium 9.4 mg/dL (8.5-10.1); Carbon Dioxide 33.1 mmol/L (21.0-32.0); Chloride 103 mmol/L (98-107); Estimated GFR (African America >60 (>=60); Estimated GFR (Non-African Ame 59 (>=60); Globulin 3.6 g/dL; Glucose 102 mg/dL (74-106); Lactate Dehydrogenase 188 U/L (81-234); Potassium 3.7 mmol/L (3.5-5.1); Sodium 142 mmol/L (136-145); Thyroid Stimulating Hormone 3.626 uIU/mL (0.358-3.740)
[2023-07-12 14:10] LABS: ACTH, Plasma 31.8 pg/mL (7.2-63.3)
== END 2023-07-10 07:24 | disposition home or self-care (01) ==
LOC: LAB 07:25
PROVIDERS: PCP Family Medicine; Visit Provider Internal Medicine
DX: Z51.12 Encounter for antineoplastic immunotherapy (principal); C43.9 Malignant melanoma of skin, unspecified
CPT/HCPCS: 36415; 80048; 80076; 82024; 82533; 83615; 83690; 84439; 84443; 85025

== ENCOUNTER 2023-08-03 12:18 | Outpatient (OUT) | payer MEDICARE, SELFPAY ==
[2023-08-03 13:30] LABS: Basophils Absolute Auto 0.1 10^3/uL (0.0-0.1); Basophils Percent Auto 0.7 % (0.2-2.0); Eosinophils Absolute Auto 0.1 10^3/uL (0.0-0.7); Hematocrit 43.2 % (36.0-48.0); Hemoglobin 14.2 g/dL (12.0-16.0); Immature Granulocytes Abs Auto 0.03 10^3/uL (0.00-0.03); Immature Granulocytes Pct Auto 0.4 % (0.0-0.5); Lymphocytes Absolute Auto 1.6 10^3/uL (1.2-3.8); Mean Corpuscular HGB Conc 32.9 g/dL (29.9-35.2); Mean Corpuscular Hemoglobin 29.7 pg (26.7-34.0); Mean Corpuscular Volume 90.4 fL (81.0-99.0); Mean Platelet Volume 9.5 fL (9.5-13.5); Monocytes Absolute Auto 0.5 10^3/uL (0.3-0.8); Monocytes Percent Auto 6.7 % (1.7-12.0); Neutrophils Absolute Auto 4.7 10^3/uL (1.4-6.5); Neutrophils Percent Auto 68.2 % (43.0-75.0); Platelet Count 221 10^3/uL (150-450); Red Blood Count 4.78 10^6/uL (4.20-5.40); Red Cell Distribution Width 12.5 % (11.0-15.0); White Blood Count 6.8 10^3/uL (4.0-11.0)
[2023-08-03 13:42] LABS: Free T4 1.12 ng/dL (0.76-1.46)
[2023-08-03 13:46] LABS: Alanine Aminotransferase 36 U/L (14-59); Albumin Globulin Ratio 0.9; Albumin Level 3.7 g/dL (3.4-5.0); Alkaline Phosphatase 119 U/L (46-116); Anion Gap 13.1; Aspartate Amino Transferase 30 U/L (15-37); Bilirubin Total 0.5 mg/dL (0.2-1.0); Calcium 9.2 mg/dL (8.5-10.1); Chloride 102 mmol/L (98-107); Estimated GFR (African America >60 (>=60); Estimated GFR (Non-African Ame >60 (>=60); Globulin 3.9 g/dL; Glucose 93 mg/dL (74-106); Lactate Dehydrogenase 201 U/L (81-234); Potassium 3.1 mmol/L (3.5-5.1); Sodium 143 mmol/L (136-145); Thyroid Stimulating Hormone 2.269 uIU/mL (0.358-3.740); Total Protein 7.6 g/dL (6.4-8.2)
[2023-08-04 13:07] LABS: ACTH, Plasma 37.4 pg/mL (7.2-63.3)
== END 2023-08-03 12:19 | disposition home or self-care (01) ==
LOC: LAB 12:19
PROVIDERS: PCP Family Medicine; Visit Provider Internal Medicine
DX: C43.9 Malignant melanoma of skin, unspecified (principal)
CPT/HCPCS: 36415; 80053; 82024; 83615; 84439; 84443; 85025

== ENCOUNTER 2023-09-02 07:30 | Outpatient (OUT) | payer MEDICARE, SELFPAY ==
--- OUTSIDE RECORDS SUMMARY | 2023-09-02 07:35 | XMS_ITS | CCD ---
Author Name Unknown Address [address] [facility] [address] [place] [address] Organization [facility] Care Team Providers Care Barrel Endshake Adjuster Name Role Phone Quentin Fitzpatrick Unavailable Unavailable Yoni Muller Unavailable Unavailable Unavailable Quentin Fitzpatrick Unavailable Unavailable DO Sly Benson II Attending Provider Yohana, DO [place] Primary Care Provider MD Alex Trammell Referring Provider DO Sly Benson II Attending Provider Yohana, DO [place] Primary Care Provider MD Alex Trammell Referring Provider [phone] MD Alex Trammell Attending Provider Yohana, DO [place] Primary Care Provider DO Sly Benson II Attending Provider MD Alex Trammell Referring Provider Yohana, DO [place] Primary Care Provider [phone] MD Alex Trammell Attending Provider DO Sly Benson II Attending Provider [phone] MD Alex Trammell Referring Provider [phone] DO Manan Benson IIothy J Attending Provider [phone] MD Alex Trammell Referring Provider [phone] Furlong, DO Yoni Primary Care Provider MD Alex Trammell Attending Provider [phone] Adamowicz II, DO Sly J Attending Provider MD Alex Trammell Referring Provider MD Alex Trammell Referring Provider MD Alex Trammell Referring Provider [phone] Adamconnoricz II, DO Sly J Attending Provider Furlong, DO Yoni Primary Care Provider [phone] MD Alex Trammell Referring Provider Adamconnoricz II, DO Syl J Attending Provider Furlong, DO Yoni Primary Care Provider [phone] MD Alex Trammell Referring Provider [phone] Adamconnoricz II, DO Sly J Attending Provider [phone] Furlong, DO Yoni Primary Care Provider MD Alex Trammell Referring Provider [phone] SLY BENSON J Admitting Unavailable FURLONG, DR [...] ADAMOWICZ, SLY J Consulting Unavailable FURLONG, DR YOIN Larson Consulting Unavailable FURLONG, DR YONI Larson Attending Unavailable FURLONG, DR YONI Larson Admitting Unavailable FURLONG, DR YONI Larson Primary Care Unavailable SHUNOWICZ, SLY J Attending Unavailable ADAMOWICZ, SLY J Admitting Unavailable ADAMOWICZ, SLY J Consulting Unavailable FURLONG, DR YONI Larson Primary Care Unavailable ADAMOWICZ, SLY Jeffrey Attending Unavailable ADAMOWICZ, SLY Jeffrey Admitting Unavailable ADAMOWICZ, SLY Jeffrey Consulting Unavailable FURLONG, DR YONI Larson Primary Care Unavailable ADAMOWICZ, SLY Jeffrey Attending Unavailable ADAMOWICZ, SLY J Admitting Unavailable ADAMOWICZ, SLY J Consulting Unavailable ADAMOWICZ, SLY Jeffrey Attending Unavailable ADAMOWICZ, SLY Jeffrey Admitting Unavailable ADAMOWICZ, SLY J Consulting Unavailable Adamowicz II, DO Sly Jeffrey Attending Provider [place], DO Yoni Primary Care Provider MD Alex Trammell Referring Provider Kelley II, DO Sly Jeffrey Attending Provider [place], DO [facility] Care Provider MD Alex Trammell Referring Provider Kimber Lacy Unavailable Kelley II, DO Sly Jeffrey Attending Provider [place], DO [facility] Care Provider MD Alex Trammell Referring Provider [phone] Kelley II, DO Sly Jeffrey Attending Provider [place], DO [facility] Care Provider [phone] MD Alex Trammell Referring Provider [phone] Kelley II, DO Sly Jeffrey Attending Provider [place], DO [facility] Care Provider [phone] MD Alex Trammell Referring Provider Kelley II, Sly Jeffrey Attending Unavaila ble [facility] Care Unavailable Dameonicz II, Sly Jeffrey Admitting Unavaila ble Alex Trammell Referring Unavailab le Yoni Muller Primary Care Unavailable Adamowkinsey II, Sly Jeffrey Admitting Unavaila ble Adamowicz II, Sly Jeffrey Attending Unavaila ble Allergies Allergy Classification Reported Allergen(s) Allergy Type Date of Onset Reaction(s) Facility (3 sources) No Alert Propensity to adverse reactions to drug 1 [facility] (2 sources) Penicillin Drug Allergy Unknown [facility] Repository (1 source) Penicillins Drug allergy (disorder) 4 [facility] Repository Medications Current Medications Medication Drug Class(es) Dates Sig (Normalized) Sig (Original) hydroCHLOROthiazide 25 mg oral tablet (19 sources) Thiazide Diuretic Start: 2 take 25 mg by mouth once daily Hydrochlorothiazide Active 25 MG PO Daily October 03, 2021 11:00pm rosuvastatin calcium 10 mg oral tablet (19 sources) HMG-CoA Reductase Inhibitor Start: 2 take 10 mg by mouth once daily Rosuvastatin Active 10 MG PO Daily October 03, 2021 11:00pm (3 sources) Completed/Discontinued Medications Medication Drug Class(es) [...] 30-Nov-2020 Active dexamethasone 2 mg oral tablet (7 sources) Corticosteroid Start: 08-29-2022 End: 09-08-2022 take 2 tablets by mouth after breakfast, then take 1 tablet by mouth after lunch Dexamethasone Discontinued 2 MG PO As Directed August 29, 2022 12:00am September 08, 2022 9:52am Take 4mg (2 tablets) in the morning after breakfast, and 2mg (1 tablet) in the afternoon after lunch for 5 days. diazePAM 5 mg oral tablet (8 sources) Benzodiazepine Start: 08-12-2022 End: 10-06-2022 Diazepam (Valium) 5 mg Tablet Discontinued 5 MG PO Once 10 August 12, 2022 12:00am October 06, 2022 9:20am Take 1 tab po 30 min prior to procedure. take 1 tablet by ernike th every twenty-four hours diazePAM 5 MG [...] Active mometasone furoate 1 mg/ml topical cream (5 sources) Corticosteroid Start: 09-15-2022 End: 11-03-2022 Mometasone Discontinued 1 APPLIC TOPICAL Daily September 15, 2022 12:00am November 03, 2022 9:11am Apply twice daily. potassium chloride 20 meq extended release oral tablet (9 sources) Start: 08-11-2022 End: 10-06-2022 take 20 mEq by mouth once daily Potassium Chloride Discontinued 20 MEQ PO Daily August 11, 2022 12:00am October 06, 2022 9:21am Potassium Chlori de Active QUEtiapine 25 mg [...] Active traZODone hydrochloride 50 mg oral tablet (5 sources) Serotonin Reuptake Inhibitor Start: 09-08-2022 End: 10-06-2022 take 50 mg by mouth once daily at bedtime Trazodone Discontinued 50 MG PO Daily at bedtime September 08, 2022 12:00am October 06, 2022 9:21am Problems Active Problems Problem Classification Problem Date [...] Inguinal lymphadenopathy; Translations: [Localized enlarged lymph nodes] Onset: 4 04-28-2022 Episodic Maintenance chemotherapy; radiotherapy (20 sources) Patient encounter status; Translations: [Encounter for [...] of left lower limb, including hip] Onset: 4 Past or Other Problems Problem Classification Problem Date Documented Da te Episodic/Chronic Residual codes; unclassified (2 sources) No current problems or disability; Translations: [Other specified conditions influencing health status] Onset: 11-13-2020 Episodic Results Test Name Value Interpretation Reference Range Facility Complete Blood Count Auto Di ffon 08-07-2023 Basophils (Bld) [#/Vol] 0.0 10*3/uL Normal 0.0-0.2 [facility] Comment on above: Result Comment: PERF ORMED BY: [facility] [address] [place] [id number] PATHOLOGIST PORTRAIT ARTIST WAYLON SAUNDERS M.D. Performed By: #### C BC ####[address] Basophils/100 WBC (Bld) 0.5 % Normal . [facility] Comment on above: Performed By: #### C BC ####[address] Eosinophils (Bld) [#/Vol] 0.0 10*3/uL Normal 0.0-0.45 [facility] Comment on above: Performed By: #### C BC ####[address] Eosinophils/100 WBC (Bld) 0.1 % Normal . [facility] Comment on above: Performed By: #### C BC ####[address] Erythrocyte distribution width (RBC) [Ratio] 13.6 % Normal 11.9-15.3 [facility] Comment on above: Performed By: #### C BC ####[address] Hematocrit (Bld) [Volume fraction] 37.0 % Normal 34.0-46.4 [facility] Comment on above: Performed By: #### C BC ####[address] Hemoglobin (Bld) [Mass/Vol] 12.8 g/dL Normal 11.8-15.4 [facility] Comment on above: Performed By: #### C BC ####[address] Lymphocytes (Bld) [#/Vol] 1.1 10*3/uL Normal 1.00-4.8 [facility] Comment on above: Performed By: #### C BC ####[place] [id number] [facility] Lymphocytes/100 WBC (Bld) 13.9 % Normal . [facility] Comment on above: Performed By: #### C BC ####[place] [id number] [facility] MCH (RBC) [Entitic mass] 30.2 pg Normal 24.7-34.3 [facility] Comment on above: Performed By: #### C BC ####[place] [id number] [facility] MCV (RBC) [Entitic vol] 87.3 fL Normal 80-100 [facility] Comment on above: Performed By: #### C BC ####[address] Mean Corpuscular HGB Conc 34.6 g/dL Normal 32.0-35.0 [facility] Comment on above: Performed By: #### C BC ####[place] [id number] [facility] Monocytes (Bld) [#/Vol] 0.5 10*3/uL Normal 0.0-0.8 [facility] Comment on above: Performed By: #### C BC ####[place] [id number] [facility] Monocytes/100 WBC (Bld) 6.4 % Normal . [facility] Comment on above: Performed By: #### C BC ####[place] [id number] [facility] Neutrophils (Bld) [#/Vol] 6.0 10*3/uL Normal 1.8-7.7 [facility] Comment on above: Performed By: #### C BC ####[place] [id number] [facility] Neutrophils/100 WBC (Bld) 79.1 % Normal . [facility] Comment on above: Performed By: #### C BC ####[address] [address] [facility] NRBC% 0.0 /100{WBC} Normal 0-0.5 [facility] Comment on above: Performed By: #### C BC ####[place] [id number] [facility] Platelet mean volume (Bld) [Entitic vol] 7.3 fL Normal 6.3-10.7 [facility] Comment on above: Performed By: #### C BC ####[place] [id number] [facility] Platelets (Bld) [#/Vol] 202 10*3/uL Normal 150-450 [facility] Comment on above: Performed By: #### C BC ####[place] [id number] [facility] RBC (Bld) [#/Vol] 4.24 10*6/uL Normal 3.60-5.00 [facility] Comment on above: Performed By: #### C BC ####[place] [id number] [facility] WBC (Bld) [#/Vol] 7.6 10*3/uL Normal 3.8-11.6 [facility] Comment on above: Performed By: #### C BC ####[place] [id number] [facility] Adrenocorticotropic Hormone PLon 08-06-[address] 21.1 pg/mL Normal 7.2-63.3 [facility] Comment on above: Result Comment: ACTH reference interval for samples collected between 7 and 10 AM. Performed at: - [facility] [id number] Staff [employer] Officer: Coleman Lacy PhD, Phone: [phone] PERFORMED BY: [facility] [address] [place] [address] PATHOLOGIST PORTRAIT ARTIST WAYLON SAUNDERS M.D. Performed By: #### A CT #### [facility] , Alanine aminotransferase [En zymatic activity/volume] in Serum or PlasmaOrdered By: Sly Benson on 08-06-2023 ALT [Catalytic activity/Vol] 23 U/L 7-52 [facility] Albumin [Mass/volume] in Ser um or Plasma by Bromocresol green (BCG) dye binding methoOrdered By: Sly Benson on 08-06-2023 Albumin BCG dye [Mass/Vol] 4.0 g/dL 3.5-5.7 [facility] Alkaline phosphatase [Enzyma tic activity/volume] in Serum or PlasmaOrdered By: Sly Benson on 08-06-2023 ALP [Catalytic activity/Vol] 95 U/L 34-104 [facility] Aspartate aminotransferase [ Enzymatic activity/volume] in Serum or PlasmaOrdered By: Sly Benson on 08-06-2023 AST [Catalytic activity/Vol] 29 U/L 13-39 [facility] Bilirubin.total [Mass/volume ] in Serum or PlasmaOrdered By: Sly Benson on 08-06-2023 Bilirubin [Mass/Vol] 0.6 mg/dL 0.3-1.0 [facility] CT abdomen pelvis w conon CT abdomen pelvis w con [facility] [place] [address] CT Scan Report Signed Patient: Theresa Luu MR#: [id number] : 1945 Acct:[id number] Age/Sex: 77 / F ADM Date: 08/06/23 Loc: Room: Type: [facility] RCR Attending Dr: Sly Benson II DO Copies to: Sly Benson II, DO Ordering Provider: Sly Benson II, DO Date of Service: 08/06/23 CT/CT abdomen pelvis w con: surveillance ([id number]) CT/CT chest w con: surveillance CT CHEST, ABDOMEN AND PELVIS WITH INTRAVENOUS CONTRAST: CLINICAL HISTORY: Malignant melanoma follow-up. History of breast cancer. COMPARISON: CT chest, abdomen and pelvis 03/05/2023 TECHNIQUE: TECHNIQUE: Spiral images were obtained through [...] Lungs:No consolidation pneumothorax or pleural effusion. Bibasilar scarring. Trachea and distal airways appear patent. Two left lung nodules are once again noted, largest measuring 5 mm within the left upper lobe series 5 image 26. No new or enlarging suspicious pulmonary nodules. Soft tissues/Bones: Soft tissues demonstrate no acute findings. Left breast reconstruction. Osseous structures demonstrate degenerative change. CT abdomen and pelvis: Organs:Liver gallbladder portal vein pancreas spleen and adrenal glands all appear unremarkable. No enhancing renal mass or hydronephrosis. Abdominal aorta appears normal in caliber.[ GI: Small hiatal hernia. Distal stomach is grossly unremarkable. Small bowel appears nondilated. No acute colonic abnormality. Left colon diverticulosis.[ Pelvis:[Urinary bladder is grossly unremarkable. IUD is in place. No adnexal mass. 2.8 cm right ovarian cyst. Post surgical changes left groin region with a presumed necrotic lymph node or postoperative seroma/lymphocele grossly unchanged from the prior study. Peritoneum/Retroperitoneum :No new lymphadenopathy. No free air or free fluid.[ Abd wall/Bones:Abdominal wall demonstrates no acute findings. Osseous structures demonstrate degenerative change. No aggressive bony lesions.[ CT/CT chest w con IMPRESSION: No significant change in chest, abdomen or pelvis findings compared to the prior study from 03/05/2023. Impression dictated by: Sylvain Monroe Jr., D.O.08/06/2023 2:43 PM Dictation Location: [place] [address] Transcribed By: [facility] 08/06/23 1443 Dictated By: Sylvain Monroe Jr, DO 08/06/23 1430 Signed By: 08/06/[address] [facility] Calcium [Mass/volume] in Ser um or PlasmaOrdered By: Sly Benson on 08-06-2023 Calcium [Mass/Vol] 9.2 mg/dL 8.6-10.3 [facility] Carbon dioxide, total [Moles /volume] in Serum or PlasmaOrdered By: Sly Benson on 08-06-2023 CO2 [Moles/Vol] 30.5 mmol/L 21.0-31.0 [facility] Chloride [Moles/volume] in S mellissa or PlasmaOrdered By: Sly Benson on 08-06-2023 Chloride [Moles/Vol] 104 mmol/L 98-107 [facility] Comprehensive Metabolic Pane eileen 08-06-2023 Albumin [Mass/Vol] 4.0 g/dL Normal 3.5-5.7 [facility] Comment on above: Performed By: #### C MP, LDH, T4F, TSH3 ####[place] [address] [place] [id number] [facility] Albumin/Globulin [Mass ratio] 1.3 {ratio} Normal [facility] Comment on above: Performed By: #### C MP, LDH, T4F, TSH3 ####[place] [address] [place] [address] [facility] ALP [Catalytic activity/Vol] 95 U/L Normal 34-104 [facility] Comment on above: Performed By: #### C MP, LDH, T4F, TSH3 ####[place] [address] [place] [address] [facility] ALT [Catalytic activity/Vol] 23 U/L Normal 7-52 [facility] Comment on above: Performed By: #### C MP, LDH, T4F, TSH3 ####[place] [address] [place] [address] [facility] Anion gap [Moles/Vol] Not performed Normal 6.0-15.0 [facility] Comment on above: Performed By: #### C MP, LDH, T4F, TSH3 ####[place] [address] [place] [address] [facility] AST [Catalytic activity/Vol] 29 U/L Normal 13-39 [facility] Comment on above: Performed By: #### C MP, LDH, T4F, TSH3 ####[address] Bilirubin [Mass/Vol] 0.6 mg/dL Normal 0.3-1.0 [facility] Comment on above: Performed By: #### C MP, LDH, T4F, TSH3 ####[address] Calcium [Mass/Vol] 9.2 mg/dL Normal 8.6-10.3 [facility] Comment on above: Performed By: #### C MP, LDH, T4F, TSH3 ####[address] Chloride [Moles/Vol] 104 mmol/L Normal 98-107 [facility] Comment on above: Performed By: #### C MP, LDH, T4F, TSH3 ####[address] CO2 [Moles/Vol] 30.5 mmol/L Normal 21.0-31.0 [facility] Comment on above: Performed By: #### C MP, LDH, T4F, TSH3 ####[address] Creatinine [Mass/Vol] 0.87 mg/dL Normal 0.60-1.20 [facility] Comment on above: Performed By: #### C MP, LDH, T4F, TSH3 ####[address] Creatinine Clr Calc Pharmacy 57.70 [facility] Comment on above: Performed By: #### C MP, LDH, T4F, TSH3 ####[address] GFR/1.73 sq M.predicted MDRD (S/P/Bld) [Vol rate/Area] mL/min/{1.73_m2} [facility] Comment on above: Performed By: #### C MP, LDH, T4F, TSH3 ####[place] [address] [place] [address] [facility] Globulin (S) [Mass/Vol] 3.0 g/dL Normal [facility] Comment on above: Performed By: #### C MP, LDH, T4F, TSH3 ####[address] [address] [facility] Glucose [Mass/Vol] 95 mg/dL Normal 70-100 [facility] Comment on above: Result Comment: [facility] Glucose Reference Range is dependent on time and content of last meal. Glucose of more than 200 mg/dL in a nonstressed, ambulatory subject supports the diagnosis of Diabetes Mellitus. ADA recommended reference range Performed By: #### C MP, LDH, T4F, TSH3 ####[address] [address] [facility] Potassium Normal 3.5-5.1 [facility] Comment on above: Result Comment: Spec imen hemolyzed, redraw requested Performed By: #### C MP, LDH, T4F, TSH3 ####[address] [address] [facility] Protein [Mass/Vol] 7.0 g/dL Normal 6.4-8.9 [facility] Comment on above: Performed By: #### C MP, LDH, T4F, TSH3 ####[address] [address] [facility] Sodium [Moles/Vol] 141 mmol/L Normal 136-145 [facility] Comment on above: Performed By: #### C MP, LDH, T4F, TSH3 ####[address] [address] [facility] Urea nitrogen [Mass/Vol] 23 mg/dL Normal 7-25 [facility] Comment on above: Performed By: #### C MP, LDH, T4F, TSH3 ####[address] [address] [facility] Creatinine [Mass/volume] in Serum or PlasmaOrdered By: Sly Benson on 08-06-2023 Creatinine [Mass/Vol] 0.87 mg/dL 0.60-1.20 [facility] Free T4 (Free Thyroxine)on 0 08-06-2023 Free T4 [Mass/Vol] 1.13 ng/dL High 0.61-1.12 [facility] Comment on above: Performed By: #### C MP, LDH, T4F, TSH3 ####[facility] [place] [address] [facility] Globulin Calc (S) [Mass/Vol] Ordered By: Sly Benson on 08-06-2023 Globulin (S) [Mass/Vol] 3.0 g/dL [facility] Glucose [Mass/volume] in Ser um or PlasmaOrdered By: Sly Besnon on 08-06-2023 Glucose [Mass/Vol] 95 mg/dL 70-100 [facility] Comment on above: ADA recommended refe rence rangeRandom Glucose Reference Range is dependent on time and content of last meal. Glucose of more than 200 mg/dL in a nonstressed, ambulatory subject supports the diagnosis of Diabetes Mellitus. LDH Lactate Dehydrogenaseon 08-06-2023 LDH Lactate Dehydrogenase Normal 140-271 [facility] Comment on above: Result Comment: Spec imen hemolyzed, redraw requested Performed By: #### C MP, LDH, T4F, TSH3 ####[facility] [place] [address] [facility] Lactate dehydrogenase [Enzym atic activity/volume] in Serum or Plasma by Lactate to pyOrdered By: Sly Benson on 08-06-2023 LDH Lactate to pyruvate reaction [Catalytic activity/Vol] 173 U/L 140-271 [facility] No Panel InformationOrdered By: Sly Benson on 08-06-2023 Estimated GFR (CKD-EPI) > 60.0 mL/Min [facility] Creatinine Clearance (Chem 57.70 [facility] Potassium [Moles/volume] in Serum or PlasmaOrdered By: Sly Benson on 08-06-2023 Potassium [Moles/Vol] 3.6 mmol/L 3.5-5.1 [facility] Protein [Mass/volume] in Ser um or PlasmaOrdered By: Sly Benson on 08-06-2023 Protein [Mass/Vol] 7.0 g/dL 6.4-8.9 [facility] Redraw LDHon 08-06-2023 Redraw LDH 173 U/L Normal 140-271 [facility] Comment on above: Order Comment: SPECI MEN HEMOLYZED. NOTIFIED CHON. Result Comment: PERF ORMED BY: [place] [address] PATHOLOGIST PORTRAIT ARTIST WAYLON SAUNDERS M.D. Performed By: #### R EDRAW K, REDRAW LDH #### [facility] [address] [place] [address] Redraw Potassiumon 4 Potassium [Moles/Vol] 3.6 mmol/L Normal 3.5-5.1 [facility] Comment on above: Order Comment: SPECI MEN HEMOLYZED. NOTIFIED CHON. Performed By: #### R EDRAW K, REDRAW LDH #### [facility] [address] [place] [address] Serum or plasma albumin/glob ulin mass ratioOrdered By: Sly Benson on 08-06-2023 Albumin/Globulin [Mass ratio] 1.3 {ratio} [facility] Serum or plasma anion gap de terminationOrdered By: Sly Benson on 08-06-2023 Anion gap [Moles/Vol] TNP [facility] Comment on above: Test not performed Sodium [Moles/volume] in Ser um or PlasmaOrdered By: Sly Benson on 08-06-2023 Sodium [Moles/Vol] 141 mmol/L 136-145 [facility] Thyroid Stimulating Hormoneo n 08-06-2023 TSH Qn 2.81 m[IU]/L Normal 0.45-5.33 [facility] Comment on above: Result Comment: PERF ORMED BY: [facility] [address] [place] [address] PATHOLOGIST PORTRAIT ARTIST WAYLON SAUNDERS M.D. Performed By: #### C MP, LDH, T4F, TSH3 ####[place] [address] Thyrotropin [Units/volume] i n Serum or PlasmaOrdered By: Sly Benson on 08-06-2023 TSH Qn 2.81 m[IU]/L 0.45-5.33 [facility] Thyroxine (T4) free [Mass/vo lume] in Serum or PlasmaOrdered By: Sly Benson on 08-06-2023 Free T4 [Mass/Vol] 1.13 ng/dL 0.61-1.12 [facility] Urea nitrogen [Mass/volume] in Serum or PlasmaOrdered By: Sly Benson on 08-06-2023 Urea nitrogen [Mass/Vol] 23 mg/dL 02-03 [facility] Adrenocorticotropic Hormone PLon 03-05-[address] 25.6 pg/mL Normal 7.2-63.3 [facility] Comment on above: Result Comment: ACTH reference interval for samples collected between 7 and 10 AM. Performed at: [facility] [id number] Staff [employer] Officer: Coleman Lacy PhD, Phone: [phone] PERFORMED BY: [facility] [address] [place] [address] PATHOLOGIST PORTRAIT ARTIST WAYLON SAUNDERS M.D. Performed By: #### C BC ####[address]#### ACTH ####[facility] , Alanine aminotransferase [En zymatic activity/volume] in Serum or PlasmaOrdered By: Sly Benson on 03-05-2023 ALT [Catalytic activity/Vol] 22 U/L [facility] Albumin [Mass/volume] in Ser um or Plasma by Bromocresol green (BCG) dye binding methoOrdered By: Sly Benson on 03-05-2023 Albumin BCG dye [Mass/Vol] 4.1 g/dL 3.5-5.7 [facility] Alkaline phosphatase [Enzyma tic activity/volume] in Serum or PlasmaOrdered By: Sly Benson on 03-05-2023 ALP [Catalytic activity/Vol] 106 U/L 34-104 [facility] Aspartate aminotransferase [ Enzymatic activity/volume] in Serum or PlasmaOrdered By: Sly Benson on 03-05-2023 AST [Catalytic activity/Vol] 23 U/L 13-39 [facility] Basophils Auto (Bld) [#/Vol] Ordered By: Sly Benson on 03-05-2023 Basophils (Bld) [#/Vol] 0.0 10*3/uL 0.0-0.2 [facility] Basophils/100 WBC Auto (Bld) Ordered By: Sly Benson on 03-05-2023 Basophils/100 WBC (Bld) 0.8 % . [facility] Bilirubin.total [Mass/volume ] in Serum or PlasmaOrdered By: Sly Benson on 03-05-2023 Bilirubin [Mass/Vol] 0.6 mg/dL 0.3-1.0 [facility] CT abdomen pelvis w conon [place] abdomen [place] [address] CT Scan Report Signed Patient: Theresa Luu MR#: [id number] : 1945 Acct:[id number] Age/Sex: 77 / F ADM Date: 03/05/23 [facility]: [facility]: [facility]: Sly Benson II DO Copies to: Sly Benson II, DO Ordering Provider: Sly Benson II, DO Date of Service: 03/05/23 CT/CT abdomen pelvis w con: surveilance ([id number]) CT/CT chest w con: surveilance CT CHEST, [...] unchanged. Impression dictated by: Sylvain Monroe Jr., D.O.03/05/2023 3:12 PM Dictation Location: [place] [address] Transcribed By: [facility] 03/05/23 1512 Dictated By: Sylvain Monroe Jr, DO 03/05/23 1504 Signed By: 03/05/[address] [facility] Calcium [Mass/volume] in Ser um or PlasmaOrdered By: Sly Benson on 03-05-2023 Calcium [Mass/Vol] 9.4 mg/dL 8.6-10.3 [facility] Carbon dioxide, total [Moles /volume] in Serum or PlasmaOrdered By: Sly Benson on 03-05-2023 CO2 [Moles/Vol] 28.0 mmol/L 21.0-31.0 [facility] Chloride [Moles/volume] in S mellissa or PlasmaOrdered By: Sly Benson on 03-05-2023 Chloride [Moles/Vol] 104 mmol/L 98-107 [facility] Complete Blood Count Auto Di ffon 03-05-2023 Basophils (Bld) [#/Vol] 0.0 10*3/uL Normal 0.0-0.2 [facility] Comment on above: Result Comment: PERF ORMED BY: [facility] [address] [place] [address] PATHOLOGIST PORTRAIT ARTIST WAYLON SAUNDERS M.D. Performed By: #### C BC ####[address]#### ACTH ####[facility] , Basophils/100 WBC (Bld) 0.8 % Normal . [facility] Comment on above: Performed By: #### C BC ####[place] [address] [place]#### ACTH ####[facility] , Eosinophils (Bld) [#/Vol] 0.1 10*3/uL Normal 0.0-0.45 [facility] Comment on above: Performed By: #### C BC ####[place] [address] [place]#### ACTH ####[facility] , Eosinophils/100 WBC (Bld) 1.7 % Normal . [facility] Comment on above: Performed By: #### C BC ####[place] [address] [place]#### ACTH ####[facility] , Erythrocyte distribution width (RBC) [Ratio] 14.3 % Normal 11.9-15.3 [facility] Comment on above: Performed By: #### C BC ####[address]#### ACTH ####[facility] , Hematocrit (Bld) [Volume fraction] 39.8 % Normal 34.0-46.4 [facility] Comment on above: Performed By: #### C BC ####[place] [address] [place]#### ACTH ####[facility] , Hemoglobin (Bld) [Mass/Vol] 13.6 g/dL Normal 11.8-15.4 [facility] Comment on above: Performed By: #### C BC ####[place] [address] [place]#### ACTH ####[facility] , Lymphocytes (Bld) [#/Vol] 1.4 10*3/uL Normal 1.00-4.8 [facility] Comment on above: Performed By: #### C BC ####[address]#### ACTH ####[facility] , Lymphocytes/100 WBC (Bld) 23.1 % Normal . [facility] Comment on above: Performed By: #### C BC ####[address]#### ACTH ####[facility] , MCH (RBC) [Entitic mass] 30.2 pg Normal 24.7-34.3 [facility] Comment on above: Performed By: #### C BC ####[place] [address] [place]#### ACTH ####[facility] , MCV (RBC) [Entitic vol] 88.1 fL Normal 80-100 [facility] Comment on above: Performed By: #### C BC ####[place] [address] [place]#### ACTH ####[facility] , Mean Corpuscular HGB Conc 34.3 g/dL Normal 32.0-35.0 [facility] Comment on above: Performed By: #### C BC ####[address]#### ACTH ####[facility] , Monocytes (Bld) [#/Vol] 0.5 10*3/uL Normal 0.0-0.8 [facility] Comment on above: Performed By: #### C BC ####[place] [address] [place]#### ACTH ####[facility] , Monocytes/100 WBC (Bld) 8.4 % Normal . [facility] Comment on above: Performed By: #### C BC ####[place] [address] [place]#### ACTH ####[facility] , Neutrophils (Bld) [#/Vol] 4.1 10*3/uL Normal 1.8-7.7 [facility] Comment on above: Performed By: #### C BC ####[place] [address] [place]#### ACTH ####[facility] , Neutrophils/100 WBC (Bld) 66.0 % Normal . [facility] Comment on above: Performed By: #### C BC ####[place] [address] [place]#### ACTH ####[facility] , NRBC% 0.0 /100{WBC} Normal 0-0.5 [facility] Comment on above: Performed By: #### C BC ####[place] [address] [place]#### ACTH ####[facility] , Platelet mean volume (Bld) [Entitic vol] 7.2 fL Normal 6.3-10.7 [facility] Comment on above: Performed By: #### C BC ####[facility] [place] [address] [place]#### ACTH ####[facility] , Platelets (Bld) [#/Vol] 190 10*3/uL Normal 150-450 [facility] Comment on above: Performed By: #### C BC ####[place] [address] [place]#### ACTH ####[facility] , RBC (Bld) [#/Vol] 4.51 10*6/uL Normal 3.60-5.00 [facility] Comment on above: Performed By: #### C BC ####[address]#### ACTH ####[facility] , WBC (Bld) [#/Vol] 6.3 10*3/uL Normal 3.8-11.6 [facility] Comment on above: Performed By: #### C BC ####[place] [address] [place]#### ACTH ####[facility] , Comprehensive Metabolic Pane eileen 03-05-2023 Albumin [Mass/Vol] 4.1 g/dL Normal 3.5-5.7 [facility] Comment on above: Order Comment: STAT BUN/CREAT FOR CT PER CHAGO IN CC DRAW 02/23/23 Performed By: #### T 4F, LDH, TSH3, CMP #### [facility] [address] Albumin/Globulin [Mass ratio] 1.5 {ratio} Normal [facility] Comment on above: Order Comment: STAT BUN/CREAT FOR CT PER CHAGO IN CC DRAW 02/23/23 Performed By: #### T 4F, LDH, TSH3, CMP #### [facility] [address] ALP [Catalytic activity/Vol] 106 U/L High 34-104 [facility] Comment on above: Order Comment: STAT BUN/CREAT FOR CT PER CHAGO IN CC DRAW 02/23/23 Performed By: #### T 4F, LDH, TSH3, CMP #### [facility] [address] ALT [Catalytic activity/Vol] 22 U/L Normal 7-52 [facility] Comment on above: Order Comment: STAT BUN/CREAT FOR CT PER CHAGO IN CC DRAW 02/23/23 Performed By: #### T 4F, LDH, TSH3, CMP #### [facility] [address] [place] [address] Anion gap [Moles/Vol] 12.8 mmol/L Normal 6.0-15.0 [facility] Comment on above: Order Comment: STAT BUN/CREAT FOR CT PER CHAGO IN CC DRAW 02/23/23 Performed By: #### T 4F, LDH, TSH3, CMP #### [facility] [address] [place] [address] AST [Catalytic activity/Vol] 23 U/L Normal 13-39 [facility] Comment on above: Order Comment: STAT BUN/CREAT FOR CT PER CHAGO IN CC DRAW 02/23/23 Performed By: #### T 4F, LDH, TSH3, CMP #### [facility] [address] [place] [address] Bilirubin [Mass/Vol] 0.6 mg/dL Normal 0.3-1.0 [facility] Comment on above: Order Comment: STAT BUN/CREAT FOR CT PER CHAGO IN CC DRAW 02/23/23 Performed By: #### T 4F, LDH, TSH3, CMP #### [facility] [address] [place] [address] Calcium [Mass/Vol] 9.4 mg/dL Normal 8.6-10.3 [facility] Comment on above: Order Comment: STAT BUN/CREAT FOR CT PER CHAGO IN CC DRAW 02/23/23 Performed By: #### T 4F, LDH, TSH3, CMP #### [facility] [address] Chloride [Moles/Vol] 104 mmol/L Normal 98-107 [facility] Comment on above: Order Comment: STAT BUN/CREAT FOR CT PER CHAGO IN CC DRAW 02/23/23 Performed By: #### T 4F, LDH, TSH3, CMP #### [facility] [address] CO2 [Moles/Vol] 28.0 mmol/L Normal 21.0-31.0 [facility] Comment on above: Order Comment: STAT BUN/CREAT FOR CT PER CHAGO IN CC DRAW 02/23/23 Performed By: #### T 4F, LDH, TSH3, CMP #### [facility] [address] [place] [address] Creatinine [Mass/Vol] 0.91 mg/dL Normal 0.60-1.20 [facility] Comment on above: Order Comment: STAT BUN/CREAT FOR CT PER CHAGO IN CC DRAW 02/23/23 Performed By: #### T 4F, LDH, TSH3, CMP #### [facility] [address] [place] [address] Creatinine Clr Calc Pharmacy 54.20 [facility] Comment on above: Order Comment: STAT BUN/CREAT FOR CT PER CHAGO IN CC DRAW 02/23/23 Performed By: #### T 4F, LDH, TSH3, CMP #### [facility] [address] [place] [address] GFR/1.73 sq M.predicted MDRD (S/P/Bld) [Vol rate/Area] mL/min/{1.73_m2} [facility] Comment on above: Order Comment: STAT BUN/CREAT FOR CT PER CHAGO IN CC DRAW 02/23/23 Performed By: #### T 4F, LDH, TSH3, CMP #### [facility] [address] [place] [address] Globulin (S) [Mass/Vol] 2.8 g/dL [facility] Comment on above: Order Comment: STAT BUN/CREAT FOR CT PER CHAGO IN CC DRAW 02/23/23 Performed By: #### T 4F, LDH, TSH3, CMP #### [facility] [address] Glucose [Mass/Vol] 102 mg/dL High 70-100 [facility] Comment on above: Order Comment: STAT BUN/CREAT FOR CT PER CHAGO IN CC DRAW 02/23/23 Result Comment: [facility] Glucose Reference Range is dependent on time and content of last meal. Glucose of more than 200 mg/dL in a nonstressed, ambulatory subject supports the diagnosis of Diabetes Mellitus. ADA recommended reference range Performed By: #### T 4F, LDH, TSH3, CMP #### [facility] [address] Potassium [Moles/Vol] 3.8 mmol/L Normal 3.5-5.1 [facility] Comment on above: Order Comment: STAT BUN/CREAT FOR CT PER CHAGO IN CC DRAW 02/23/23 Performed By: #### T 4F, LDH, TSH3, CMP #### [facility] [address] Protein [Mass/Vol] 6.9 g/dL Normal 6.4-8.9 [facility] Comment on above: Order Comment: STAT BUN/CREAT FOR CT PER CHAGO IN CC DRAW 02/23/23 Performed By: #### T 4F, LDH, TSH3, CMP #### [facility] [address] [place] [address] [place] Sodium [Moles/Vol] 141 mmol/L Normal 136-145 [facility] Comment on above: Order Comment: STAT BUN/CREAT FOR CT PER CHAGO IN CC DRAW 02/23/23 Performed By: #### T 4F, LDH, TSH3, CMP #### [facility] [address] [place] [address] [place] Urea nitrogen [Mass/Vol] 17 mg/dL Normal 7-25 [facility] Comment on above: Order Comment: STAT BUN/CREAT FOR CT PER CHAGO IN CC DRAW 02/23/23 Performed By: #### T 4F, LDH, TSH3, CMP #### [facility] [address] [place] [id number] [place] Creatinine [Mass/volume] in Serum or PlasmaOrdered By: Sly Benson on 03-05-2023 Creatinine [Mass/Vol] 0.91 mg/dL 0.60-1.20 [facility] Eosinophils Auto (Bld) [#/Vo l]Ordered By: Sly Benson on 03-05-2023 Eosinophils (Bld) [#/Vol] 0.1 10*3/uL 0.0-0.45 [facility] Eosinophils/100 WBC Auto (Bl d)Ordered By: Sly Benson on 03-05-2023 Eosinophils/100 WBC (Bld) 1.7 % . [facility] Erythrocyte distribution wid th Auto (RBC) [Ratio]Ordered By: Sly Benson on 03-05-2023 Erythrocyte distribution width (RBC) [Ratio] 14.3 % 11.9-15.3 [facility] Free T4 (Free Thyroxine)on 0 03-05-2023 Free T4 [Mass/Vol] 0.94 ng/dL Normal 0.61-1.12 [facility] Comment on above: Order Comment: STAT BUN/CREAT FOR CT PER CHAGO IN CC DRAW 02/23/23 Performed By: #### T 4F, LDH, TSH3, CMP #### [facility] [address] [place] [id number] [facility] Globulin Calc (S) [Mass/Vol] Ordered By: Sly Benson on 03-05-2023 Globulin (S) [Mass/Vol] 2.8 g/dL [facility] Glucose [Mass/volume] in Ser um or PlasmaOrdered By: Sly Benson on 03-05-2023 Glucose [Mass/Vol] 102 mg/dL 70-100 [facility] Comment on above: ADA recommended refe rence rangeRandom Glucose Reference Range is dependent on time and content of last meal. Glucose of more than 200 mg/dL in a nonstressed, ambulatory subject supports the diagnosis of Diabetes Mellitus. Hematocrit Auto (Bld) [Volum e fraction]Ordered By: Sly Benson on 03-05-2023 Hematocrit (Bld) [Volume fraction] 39.8 % 34.0-46.4 [facility] Hemoglobin [Mass/volume] in BloodOrdered By: Sly Benson on 03-05-2023 Hemoglobin (Bld) [Mass/Vol] 13.6 g/dL 11.8-15.4 [facility] LDH Lactate Dehydrogenaseon 03-05-2023 LDH Lactate Dehydrogenase 197 U/L Normal 140-271 [facility] Comment on above: Order Comment: STAT BUN/CREAT FOR CT PER CHAGO IN CC DRAW 02/23/23 Performed By: #### T 4F, LDH, TSH3, CMP #### [facility] [address] Lactate dehydrogenase [Enzym atic activity/volume] in Serum or Plasma by Lactate to pyOrdered By: Sly Benson on 03-05-2023 LDH Lactate to pyruvate reaction [Catalytic activity/Vol] 197 U/L 140-271 [facility] Leukocytes [#/volume] correc margot for nucleated erythrocytes in Blood by Automated counOrdered By: Sly Benson on 03-05-2023 WBC corrected for nucl RBC Auto (Bld) [#/Vol] 6.3 10*3/uL 3.8-11.6 [facility] Lymphocytes Auto (Bld) [#/Vo l]Ordered By: Sly Benson on 03-05-2023 Lymphocytes (Bld) [#/Vol] 1.4 10*3/uL 1.00-4.8 [facility] Lymphocytes/100 WBC Auto (Bl d)Ordered By: Sly Benson on 03-05-2023 Lymphocytes/100 WBC (Bld) 23.1 % . [facility] MCH Auto (RBC) [Entitic mass ]Ordered By: Sly Benson on 03-05-2023 MCH (RBC) [Entitic mass] 30.2 pg 24.7-34.3 [facility] MCHC Auto (RBC) [Mass/Vol]Or dered By: Sly Benson on 03-05-2023 MCHC (RBC) [Mass/Vol] 34.3 g/dL 32.0-35.0 [facility] MCV Auto (RBC) [Entitic vol] Ordered By: Sly Benson on 03-05-2023 MCV (RBC) [Entitic vol] 88.1 fL 80-100 [facility] Monocytes Auto (Bld) [#/Vol] Ordered By: Sly Benson on 03-05-2023 Monocytes (Bld) [#/Vol] 0.5 10*3/uL 0.0-0.8 [facility] Monocytes/100 WBC Auto (Bld) Ordered By: Sly Benson on 03-05-2023 Monocytes/100 WBC (Bld) 8.4 % . [facility] Neutrophils Auto (Bld) [#/Vo l]Ordered By: Sly Benson on 03-05-2023 Neutrophils (Bld) [#/Vol] 4.1 10*3/uL 1.8-7.7 [facility] Neutrophils/100 WBC Auto (Bl d)Ordered By: Sly Benson on 03-05-2023 Neutrophils/100 WBC (Bld) 66.0 % . [facility] No Panel InformationOrdered By: Sly Benson on 03-05-2023 Adrenocorticotropic Hormone 25.6 pg/mL 7.2-63.3 [facility] Comment on above: ACTH reference inter jamel for samples collected between 7 and10 AM.Performed at: [facility] [address] [id number] Director: Coleman Lacy PhD, Phone: [phone] Estimated GFR (CKD-EPI) > 60.0 mL/Min [facility] Creatinine Clearance (Chem 54.20 [facility] Nucleated erythrocytes [Pres ence] in Blood by Automated countOrdered By: Sly Benson on 03-05-2023 Nucleated RBC Auto Ql (Bld) 0.0 /100{WBC} 0-0.5 [facility] Platelet mean volume Auto (B ld) [Entitic vol]Ordered By: Sly Benson on 03-05-2023 Platelet mean volume (Bld) [Entitic vol] 7.2 fL 6.3-10.7 [facility] Platelets Auto (Bld) [#/Vol] Ordered By: Sly Benson on 03-05-2023 Platelets (Bld) [#/Vol] 190 10*3/uL 150-450 [facility] Potassium [Moles/volume] in Serum or PlasmaOrdered By: Sly Benson on 03-05-2023 Potassium [Moles/Vol] 3.8 mmol/L 3.5-5.1 [facility] Protein [Mass/volume] in Ser um or PlasmaOrdered By: Sly Benson on 03-05-2023 Protein [Mass/Vol] 6.9 g/dL 6.4-8.9 [facility] RBC Auto (Bld) [#/Vol]Ordere d By: Sly Benson on 03-05-2023 RBC (Bld) [#/Vol] 4.51 10*6/uL 3.60-5.00 [facility] Serum or plasma albumin/glob ulin mass ratioOrdered By: Sly Benson on 03-05-2023 Albumin/Globulin [Mass ratio] 1.5 {ratio} [facility] Serum or plasma anion gap de terminationOrdered By: Sly Benson on 03-05-2023 Anion gap [Moles/Vol] 12.8 mmol/L 6.0-15.0 [facility] Sodium [Moles/volume] in Ser um or PlasmaOrdered By: Sly Benson on 03-05-2023 Sodium [Moles/Vol] 141 mmol/L 136-145 [facility] Thyroid Stimulating Hormoneo n 03-05-2023 TSH Qn 2.49 m[IU]/L Normal 0.45-5.33 [facility] Comment on above: Order Comment: STAT BUN/CREAT FOR CT PER CHAGO IN CC DRAW 02/23/23 Result Comment: PERF ORMED BY: [facility] [address] [place] [address] PATHOLOGIST PORTRAIT ARTIST WAYLON SAUNDERS M.D. Performed By: #### T 4F, LDH, TSH3, CMP #### [facility] [address] Thyrotropin [Units/volume] i n Serum or PlasmaOrdered By: Sly Benson on 03-05-2023 TSH Qn 2.49 m[IU]/L 0.45-5.33 [facility] Thyroxine (T4) free [Mass/vo lume] in Serum or PlasmaOrdered By: Sly Benson on 03-05-2023 Free T4 [Mass/Vol] 0.94 ng/dL 0.61-1.12 [facility] Urea nitrogen [Mass/volume] in Serum or PlasmaOrdered By: Sly Benson on 03-05-2023 Urea nitrogen [Mass/Vol] 17 mg/dL 02-03 [facility] WBC Auto (Bld) [#/Vol]Ordere d By: Sly Benson on 03-05-2023 WBC (Bld) [#/Vol] 6.3 10*3/uL 3.8-11.6 [facility] Adrenocorticotropic Hormone PLon 12-30-[address] 28.9 pg/mL Normal 7.2-63.3 [facility] Comment on above: Result Comment: ACTH reference interval for samples collected between 7 and 10 AM. Performed at: - [facility] [id number] [employer] Officer: Coleman Lacy PhD, Phone: [phone] PERFORMED BY: [facility] [address] [place] [address] PATHOLOGIST PORTRAIT ARTIST WAYLON SAUNDERS M.D. Performed By: #### C MP, LDH, TSH3, CBC, T4F ####[facility]#### ACTH ####[facility] , Alanine aminotransferase [En zymatic activity/volume] in Serum or PlasmaOrdered By: Sly Benson on 12-30-2022 ALT [Catalytic activity/Vol] 24 U/L [facility] Albumin [Mass/volume] in Ser um or Plasma by Bromocresol green (BCG) dye binding methoOrdered By: Sly Benson on 12-30-2022 Albumin BCG dye [Mass/Vol] 4.0 g/dL 3.5-5.7 [facility] Alkaline phosphatase [Enzyma tic activity/volume] in Serum or PlasmaOrdered By: Sly Benson on 12-30-2022 ALP [Catalytic activity/Vol] 108 U/L 34-104 [facility] Aspartate aminotransferase [ Enzymatic activity/volume] in Serum or PlasmaOrdered By: Sly Benson on 12-30-2022 AST [Catalytic activity/Vol] 22 U/L 13-39 [facility] Basophils Auto (Bld) [#/Vol] Ordered By: Sly Benson on 12-30-2022 Basophils (Bld) [#/Vol] 0.0 10*3/uL 0.0-0.2 [facility] Basophils/100 WBC Auto (Bld) Ordered By: Sly Benson on 12-30-2022 Basophils/100 WBC (Bld) 0.5 % . [facility] Bilirubin.total [Mass/volume ] in Serum or PlasmaOrdered By: Sly Benson on 12-30-2022 Bilirubin [Mass/Vol] 0.5 mg/dL 0.3-1.0 [facility] Calcium [Mass/volume] in Ser um or PlasmaOrdered By: Sly Benson on 12-30-2022 Calcium [Mass/Vol] 9.1 mg/dL 8.6-10.3 [facility] Carbon dioxide, total [Moles /volume] in Serum or PlasmaOrdered By: Sly Benson on 12-30-2022 CO2 [Moles/Vol] 30.7 mmol/L 21.0-31.0 [facility] Chloride [Moles/volume] in S mellissa or PlasmaOrdered By: Sly Benson on 12-30-2022 Chloride [Moles/Vol] 104 mmol/L 98-107 [facility] Complete Blood Count Auto Di ffon 12-30-2022 Basophils (Bld) [#/Vol] 0.0 10*3/uL Normal 0.0-0.2 [facility] Comment on above: Result Comment: PERF ORMED BY: [facility] [address] [place] [address] PATHOLOGIST PORTRAIT ARTIST WAYLON SAUNDERS M.D. Performed By: #### C MP, LDH, TSH3, CBC, T4F ####[address]#### ACTH ####[facility] , Basophils/100 WBC (Bld) 0.5 % Normal . [facility] Comment on above: Performed By: #### C MP, LDH, TSH3, CBC, T4F ####[address]#### ACTH ####[facility] , Eosinophils (Bld) [#/Vol] 0.1 10*3/uL Normal 0.0-0.45 [facility] Comment on above: Performed By: #### C MP, LDH, TSH3, CBC, T4F ####[address]#### ACTH ####[facility] , Eosinophils/100 WBC (Bld) 1.5 % Normal . [facility] Comment on above: Performed By: #### C MP, LDH, TSH3, CBC, T4F ####[address]#### ACTH ####[facility] , Erythrocyte distribution width (RBC) [Ratio] 13.6 % Normal 11.9-15.3 [facility] Comment on above: Performed By: #### C MP, LDH, TSH3, CBC, T4F ####[place] [address] [place]#### ACTH ####[facility] , Hematocrit (Bld) [Volume fraction] 39.0 % Normal 34.0-46.4 [facility] Comment on above: Performed By: #### C MP, LDH, TSH3, CBC, T4F ####[place] [address] [place]#### ACTH ####[facility] , Hemoglobin (Bld) [Mass/Vol] 13.4 g/dL Normal 11.8-15.4 [facility] Comment on above: Performed By: #### C MP, LDH, TSH3, CBC, T4F ####[address]#### ACTH ####[facility] , Lymphocytes (Bld) [#/Vol] 1.6 10*3/uL Normal 1.00-4.8 [facility] Comment on above: Performed By: #### C MP, LDH, TSH3, CBC, T4F ####[address]#### ACTH ####[facility] , Lymphocytes/100 WBC (Bld) 24.0 % Normal . [facility] Comment on above: Performed By: #### C MP, LDH, TSH3, CBC, T4F ####[address]#### ACTH ####[facility] , MCH (RBC) [Entitic mass] 30.0 pg Normal 24.7-34.3 [facility] Comment on above: Performed By: #### C MP, LDH, TSH3, CBC, T4F ####[place] [address] [place]#### ACTH ####[facility] , MCV (RBC) [Entitic vol] 87.4 fL Normal 80-100 [facility] Comment on above: Performed By: #### C MP, LDH, TSH3, CBC, T4F ####[place] [address] [place]#### ACTH ####[facility] , Mean Corpuscular HGB Conc 34.3 g/dL Normal 32.0-35.0 [facility] Comment on above: Performed By: #### C MP, LDH, TSH3, CBC, T4F ####[address]#### ACTH ####[facility] , Monocytes (Bld) [#/Vol] 0.6 10*3/uL Normal 0.0-0.8 [facility] Comment on above: Performed By: #### C MP, LDH, TSH3, CBC, T4F ####[place] [address] [place]#### ACTH ####[facility] , Monocytes/100 WBC (Bld) 9.0 % Normal . [facility] Comment on above: Performed By: #### C MP, LDH, TSH3, CBC, T4F ####[address]#### ACTH ####[facility] , Neutrophils (Bld) [#/Vol] 4.4 10*3/uL Normal 1.8-7.7 [facility] Comment on above: Performed By: #### C MP, LDH, TSH3, CBC, T4F ####[place] [address] [place]#### ACTH ####[facility] , Neutrophils/100 WBC (Bld) 65.0 % Normal . [facility] Comment on above: Performed By: #### C MP, LDH, TSH3, CBC, T4F ####[place] [address] [place]#### ACTH ####[facility] , NRBC% 0.0 /100{WBC} Normal 0-0.5 [facility] Comment on above: Performed By: #### C MP, LDH, TSH3, CBC, T4F ####[place] [address] [place]#### ACTH ####[facility] , Platelet mean volume (Bld) [Entitic vol] 7.4 fL Normal 6.3-10.7 [facility] Comment on above: Performed By: #### C MP, LDH, TSH3, CBC, T4F ####[place] [address] [place]#### ACTH ####[facility] , Platelets (Bld) [#/Vol] 171 10*3/uL Normal 150-450 [facility] Comment on above: Performed By: #### C MP, LDH, TSH3, CBC, T4F ####[address]#### ACTH ####[facility] , RBC (Bld) [#/Vol] 4.46 10*6/uL Normal 3.60-5.00 [facility] Comment on above: Performed By: #### C MP, LDH, TSH3, CBC, T4F ####[address]#### ACTH ####[facility] , WBC (Bld) [#/Vol] 6.8 10*3/uL Normal 3.8-11.6 [facility] Comment on above: Performed By: #### C MP, LDH, TSH3, CBC, T4F ####[place] [address] [place]#### ACTH ####[facility] , Comprehensive Metabolic Pane eileen 12-30-2022 Albumin [Mass/Vol] 4.0 g/dL Normal 3.5-5.7 [facility] Comment on above: Performed By: #### C MP, LDH, TSH3, CBC, T4F ####[place] [address] [place]#### ACTH ####[facility] , Albumin/Globulin [Mass ratio] 1.6 {ratio} Normal [facility] Comment on above: Performed By: #### C MP, LDH, TSH3, CBC, T4F ####[address]#### ACTH ####[facility] , ALP [Catalytic activity/Vol] 108 U/L High 34-104 [facility] Comment on above: Performed By: #### C MP, LDH, TSH3, CBC, T4F ####[place] [address] [place]#### ACTH ####[facility] , ALT [Catalytic activity/Vol] 24 U/L Normal 7-52 [facility] Comment on above: Performed By: #### C MP, LDH, TSH3, CBC, T4F ####[address]#### ACTH ####[facility] , Anion gap [Moles/Vol] Not performed Normal 6.0-15.0 [facility] Comment on above: Result Comment: --- 12/30/22 1038 --- Gap previously reported as: 10.2 mEq/L Performed By: #### C MP, LDH, TSH3, CBC, T4F ####[address]#### ACTH ####[facility] , AST [Catalytic activity/Vol] 22 U/L Normal 13-39 [facility] Comment on above: Performed By: #### C MP, LDH, TSH3, CBC, T4F ####[place] [address] [place]#### ACTH ####[facility] , Bilirubin [Mass/Vol] 0.5 mg/dL Normal 0.3-1.0 [facility] Comment on above: Performed By: #### C MP, LDH, TSH3, CBC, T4F ####[place] [address] [place]#### ACTH ####[facility] , Calcium [Mass/Vol] 9.1 mg/dL Normal 8.6-10.3 [facility] Comment on above: Performed By: #### C MP, LDH, TSH3, CBC, T4F ####[address]#### ACTH ####[facility] , Chloride [Moles/Vol] 104 mmol/L Normal 98-107 [facility] Comment on above: Performed By: #### C MP, LDH, TSH3, CBC, T4F ####[address]#### ACTH ####[facility] , CO2 [Moles/Vol] 30.7 mmol/L Normal 21.0-31.0 [facility] Comment on above: Performed By: #### C MP, LDH, TSH3, CBC, T4F ####[place] [address] [place]#### ACTH ####[facility] , Creatinine [Mass/Vol] 0.92 mg/dL Normal 0.60-1.20 [facility] Comment on above: Performed By: #### C MP, LDH, TSH3, CBC, T4F ####[address]#### ACTH ####[facility] , Creatinine Clr Calc Pharmacy 54.88 [facility] Comment on above: Performed By: #### C MP, LDH, TSH3, CBC, T4F ####[place] [address] [place]#### ACTH ####[facility] , GFR/1.73 sq M.predicted MDRD (S/P/Bld) [Vol rate/Area] mL/min/{1.73_m2} [facility] Comment on above: Performed By: #### C MP, LDH, TSH3, CBC, T4F ####[facility] [place] [address] [place]#### ACTH ####[facility] , Globulin (S) [Mass/Vol] 2.5 g/dL Normal [facility] Comment on above: Performed By: #### C MP, LDH, TSH3, CBC, T4F ####[place] [address] [place]#### ACTH ####[facility] , Glucose [Mass/Vol] 102 mg/dL High 70-100 [facility] Comment on above: Result Comment: [facility] Glucose Reference Range is dependent on time and content of last meal. Glucose of more than 200 mg/dL in a nonstressed, ambulatory subject supports the diagnosis of Diabetes Mellitus. ADA recommended reference range Performed By: #### C MP, LDH, TSH3, CBC, T4F ####[place] [address] [place]#### ACTH ####[facility] , Potassium Normal 3.5-5.1 [facility] Comment on above: Result Comment: Spec imen hemolyzed, redraw requested --- 12/30/22 1036 --- K previously reported as: 3.9 mmol/L Hemolysis is present at a level that could interfere with the result. Performed By: #### C MP, LDH, TSH3, CBC, T4F ####[place] [address] [place]#### ACTH ####[facility] , Protein [Mass/Vol] 6.5 g/dL Normal 6.4-8.9 [facility] Comment on above: Performed By: #### C MP, LDH, TSH3, CBC, T4F ####[place] [address] [place]#### ACTH ####[facility] , Sodium [Moles/Vol] 141 mmol/L Normal 136-145 [facility] Comment on above: Performed By: #### C MP, LDH, TSH3, CBC, T4F ####[facility] [place] [address] [place]#### ACTH ####[facility] , Urea nitrogen [Mass/Vol] 17 mg/dL Normal 7-25 [facility] Comment on above: Performed By: #### C MP, LDH, TSH3, CBC, T4F ####[facility] [place] [address] [place]#### ACTH ####[facility] , Creatinine [Mass/volume] in Serum or PlasmaOrdered By: Sly Benson on 12-30-2022 Creatinine [Mass/Vol] 0.92 mg/dL 0.60-1.20 [facility] Eosinophils Auto (Bld) [#/Vo l]Ordered By: Sly Benson on 12-30-2022 Eosinophils (Bld) [#/Vol] 0.1 10*3/uL 0.0-0.45 [facility] Eosinophils/100 WBC Auto (Bl d)Ordered By: Sly Benson on 12-30-2022 Eosinophils/100 WBC (Bld) 1.5 % . [facility] Erythrocyte distribution wid th Auto (RBC) [Ratio]Ordered By: Sly Benson on 12-30-2022 Erythrocyte distribution width (RBC) [Ratio] 13.6 % 11.9-15.3 [facility] Free T4 (Free Thyroxine)on 0 12-30-2022 Free T4 [Mass/Vol] 1.03 ng/dL Normal 0.61-1.12 [facility] Comment on above: Performed By: #### C MP, LDH, TSH3, CBC, T4F ####[facility] [place] [address] [place]#### ACTH ####[facility] , Globulin Calc (S) [Mass/Vol] Ordered By: Sly Benson on 12-30-2022 Globulin (S) [Mass/Vol] 2.5 g/dL [facility] Glucose [Mass/volume] in Ser um or PlasmaOrdered By: Sly Benson on 12-30-2022 Glucose [Mass/Vol] 102 mg/dL 70-100 [facility] Comment on above: ADA recommended refe rence rangeRandom Glucose Reference Range is dependent on time and content of last meal. Glucose of more than 200 mg/dL in a nonstressed, ambulatory subject supports the diagnosis of Diabetes Mellitus. Hematocrit Auto (Bld) [Volum e fraction]Ordered By: Sly Benson on 12-30-2022 Hematocrit (Bld) [Volume fraction] 39.0 % 34.0-46.4 [facility] Hemoglobin [Mass/volume] in BloodOrdered By: Sly Benson on 12-30-2022 Hemoglobin (Bld) [Mass/Vol] 13.4 g/dL 11.8-15.4 [facility] LDH Lactate Dehydrogenaseon 12-30-2022 LDH Lactate Dehydrogenase 211 U/L Normal 140-271 [facility] Comment on above: Result Comment: Hemo lysis is present at a level that could interfere with the result. Performed By: #### C MP, LDH, TSH3, CBC, T4F ####[facility] [id number]#### ACTH ####[facility] , Lactate dehydrogenase [Enzym atic activity/volume] in Serum or Plasma by Lactate to pyOrdered By: Sly Benson on 12-30-2022 LDH Lactate to pyruvate reaction [Catalytic activity/Vol] 211 U/L 140-271 [facility] Comment on above: Hemolysis is present at a level that could interfere with the result. Leukocytes [#/volume] correc margot for nucleated erythrocytes in Blood by Automated counOrdered By: Sly Benson on 12-30-2022 WBC corrected for nucl RBC Auto (Bld) [#/Vol] 6.8 10*3/uL 3.8-11.6 [facility] Lymphocytes Auto (Bld) [#/Vo l]Ordered By: Sly Benson on 12-30-2022 Lymphocytes (Bld) [#/Vol] 1.6 10*3/uL 1.00-4.8 [facility] Lymphocytes/100 WBC Auto (Bl d)Ordered By: Sly Benson on 12-30-2022 Lymphocytes/100 WBC (Bld) 24.0 % . [facility] MCH Auto (RBC) [Entitic mass ]Ordered By: Sly Benson on 12-30-2022 MCH (RBC) [Entitic mass] 30.0 pg 24.7-34.3 [facility] MCHC Auto (RBC) [Mass/Vol]Or dered By: Sly Benson on 12-30-2022 MCHC (RBC) [Mass/Vol] 34.3 g/dL 32.0-35.0 [facility] MCV Auto (RBC) [Entitic vol] Ordered By: Sly Benson on 12-30-2022 MCV (RBC) [Entitic vol] 87.4 fL 80-100 [facility] Monocytes Auto (Bld) [#/Vol] Ordered By: Sly Benson on 12-30-2022 Monocytes (Bld) [#/Vol] 0.6 10*3/uL 0.0-0.8 [facility] Monocytes/100 WBC Auto (Bld) Ordered By: Sly Benson on 12-30-2022 Monocytes/100 WBC (Bld) 9.0 % . [facility] Neutrophils Auto (Bld) [#/Vo l]Ordered By: Sly Benson on 12-30-2022 Neutrophils (Bld) [#/Vol] 4.4 10*3/uL 1.8-7.7 [facility] Neutrophils/100 WBC Auto (Bl d)Ordered By: Sly Benson on 12-30-2022 Neutrophils/100 WBC (Bld) 65.0 % . [facility] No Panel InformationOrdered By: Sly Benson on 12-30-2022 Adrenocorticotropic Hormone 28.9 pg/mL 7.2-63.3 [facility] Comment on above: ACTH reference inter jamel for samples collected between 7 and10 AM.Performed at: [facility] [employer] [id number] Director: Coleman Lacy PhD, Phone: [phone] Estimated GFR (CKD-EPI) > 60.0 mL/Min [facility] Creatinine Clearance (Chem 54.88 [facility] Nucleated erythrocytes [Pres ence] in Blood by Automated countOrdered By: Sly Benson on 12-30-2022 Nucleated RBC Auto Ql (Bld) 0.0 /100{WBC} 0-0.5 [facility] Platelet mean volume Auto (B ld) [Entitic vol]Ordered By: Sly Benson on 12-30-2022 Platelet mean volume (Bld) [Entitic vol] 7.4 fL 6.3-10.7 [facility] Platelets Auto (Bld) [#/Vol] Ordered By: Sly Benson on 12-30-2022 Platelets (Bld) [#/Vol] 171 10*3/uL 150-450 [facility] Potassium [Moles/volume] in Serum or PlasmaOrdered By: Sly Benson on 12-30-2022 Potassium [Moles/Vol] See comment 3.5-5.1 [facility] Comment on above: Specimen hemolyzed, redraw requested --- 12/30/22 1036 ---K previously reported as: 3.9 mmol/LHemolysis is present at a level that could interfere with the result. Protein [Mass/volume] in Ser um or PlasmaOrdered By: Sly Benson on 12-30-2022 Protein [Mass/Vol] 6.5 g/dL 6.4-8.9 [facility] RBC Auto (Bld) [#/Vol]Ordere d By: Sly Benson on 12-30-2022 RBC (Bld) [#/Vol] 4.46 10*6/uL 3.60-5.00 [facility] Serum or plasma albumin/glob ulin mass ratioOrdered By: Sly Benson on 12-30-2022 Albumin/Globulin [Mass ratio] 1.6 {ratio} [facility] Serum or plasma anion gap de terminationOrdered By: Sly Benson on 12-30-2022 Anion gap [Moles/Vol] TNP [facility] Comment on above: Test not performed-- - 12/30/22 1038 ---Gap previously reported as: 10.2 mEq/L Sodium [Moles/volume] in Ser um or PlasmaOrdered By: Sly Benson on 12-30-2022 Sodium [Moles/Vol] 141 mmol/L 136-145 [facility] Thyroid Stimulating Hormoneo n 12-30-2022 TSH Qn 2.31 m[IU]/L Normal 0.45-5.33 [facility] Comment on above: Result Comment: PERF ORMED BY: [facility] [address] [place] [address] PATHOLOGIST PORTRAIT ARTIST WAYLON SAUNDERS M.D. Performed By: #### C MP, LDH, TSH3, CBC, T4F ####[facility] [id number]#### ACTH ####[facility] , Thyrotropin [Units/volume] i n Serum or PlasmaOrdered By: Sly Benson on 12-30-2022 TSH Qn 2.31 m[IU]/L 0.45-5.33 [facility] Thyroxine (T4) free [Mass/vo lume] in Serum or PlasmaOrdered By: Sly Benson on 12-30-2022 Free T4 [Mass/Vol] 1.03 ng/dL 0.61-1.12 [facility] Urea nitrogen [Mass/volume] in Serum or PlasmaOrdered By: Syl Benson on 12-30-2022 Urea nitrogen [Mass/Vol] 17 mg/dL 7-25 [facility] WBC Auto (Bld) [#/Vol]Ordere d By: Sly Benson on 12-30-2022 WBC (Bld) [#/Vol] 6.8 10*3/uL 3.8-11.6 [facility] Adrenocorticotropic Hormone PLon 10-31-[address] 35.2 pg/mL Normal 7.2-63.3 [facility] Comment on above: Result Comment: ACTH reference interval for samples collected between 7 and 10 AM. Performed at: [facility] [employer] [id number] [employer] Officer: Coleman Lacy PhD, Phone: [phone] PERFORMED BY: [facility] [address] [facility] [place] [address] PATHOLOGIST PORTRAIT ARTIST WAYLON SAUNDERS M.D. Performed By: #### T SH3, LDH, CBC, CMP, T4F ####[facility]#### ACTH ####[facility] , Alanine aminotransferase [En zymatic activity/volume] in Serum or PlasmaOrdered By: Sly Benson on 10-31-2022 ALT [Catalytic activity/Vol] 22 U/L 7-52 [facility] Albumin [Mass/volume] in Ser um or Plasma by Bromocresol green (BCG) dye binding methoOrdered By: Sly Benson on 10-31-2022 Albumin BCG dye [Mass/Vol] 4.0 g/dL 3.5-5.7 [facility] Alkaline phosphatase [Enzyma tic activity/volume] in Serum or PlasmaOrdered By: Sly Benson on 10-31-2022 ALP [Catalytic activity/Vol] 98 U/L 34-104 [facility] Aspartate aminotransferase [ Enzymatic activity/volume] in Serum or PlasmaOrdered By: Sly Benson on 10-31-2022 AST [Catalytic activity/Vol] 28 U/L 13-39 [facility] Basophils Auto (Bld) [#/Vol] Ordered By: Sly Benson on 10-31-2022 Basophils (Bld) [#/Vol] 0.1 10*3/uL 0.0-0.2 [facility] Basophils/100 WBC Auto (Bld) Ordered By: Sly Benson on 10-31-2022 Basophils/100 WBC (Bld) 0.9 % . [facility] Bilirubin.total [Mass/volume ] in Serum or PlasmaOrdered By: Sly Benson on 10-31-2022 Bilirubin [Mass/Vol] 0.7 mg/dL 0.3-1.0 [facility] CT abdomen pelvis w conon CT abdomen pelvis w con [facility] Main [place] [address] [place] [address] CT Scan Report Signed Patient: Theresa Luu MR#: [id number] : 1945 Acct:[id number] Age/Sex: 77 / F ADM Date: 10/31/22 Loc: Room: Type: [facility] RCR Attending Dr: Sly Benson II DO Copies to: ANTOINETTE Dan II, DO Ordering Provider: Zenobia Parker APRN Date of Service: 10/31/22 CT/CT abdomen pelvis w con: restaging ([id number]) CT/CT chest w con: restaging CT CHEST, [...] seen. Impression dictated by: Sylvain Monroe Jr., D.OWilbert10/31/2022 2:24 PM Dictation Location: [place] [address] Transcribed By: [facility] 10/31/22 1424 Dictated By: Sylvain Monroe Jr, DO 10/31/22 1415 Signed By: 10/31/22 1424 Normal [facility] Calcium [Mass/volume] in Ser um or PlasmaOrdered By: Sly Benson on 10-31-2022 Calcium [Mass/Vol] 8.9 mg/dL 8.6-10.3 [facility] Carbon dioxide, total [Moles /volume] in Serum or PlasmaOrdered By: Sly Benson on 10-31-2022 CO2 [Moles/Vol] 28.6 mmol/L 21.0-31.0 [facility] Chloride [Moles/volume] in S mellissa or PlasmaOrdered By: Sly Benson on 10-31-2022 Chloride [Moles/Vol] 104 mmol/L 98-107 [facility] Complete Blood Count Auto Di ffon 10-31-2022 Basophils (Bld) [#/Vol] 0.1 10*3/uL Normal 0.0-0.2 [facility] Comment on above: Result Comment: PERF ORMED BY: [facility] [place] [address] PATHOLOGIST PORTRAIT ARTIST WAYLON SAUNDERS M.D. Performed By: #### T SH3, LDH, CBC, CMP, T4F ####[address]#### ACTH ####[facility] , Basophils/100 WBC (Bld) 0.9 % Normal . [facility] Comment on above: Performed By: #### T SH3, LDH, CBC, CMP, T4F ####[address]#### ACTH ####[facility] , Eosinophils (Bld) [#/Vol] 0.1 10*3/uL Normal 0.0-0.45 [facility] Comment on above: Performed By: #### T SH3, LDH, CBC, CMP, T4F ####[address]#### ACTH ####[facility] , Eosinophils/100 WBC (Bld) 1.8 % Normal . [facility] Comment on above: Performed By: #### T SH3, LDH, CBC, CMP, T4F ####[address]#### ACTH ####[facility] , Erythrocyte distribution width (RBC) [Ratio] 15.0 % Normal 11.9-15.3 [facility] Comment on above: Performed By: #### T SH3, LDH, CBC, CMP, T4F ####[place] [address] [place]#### ACTH ####[facility] , Hematocrit (Bld) [Volume fraction] 41.3 % Normal 34.0-46.4 [facility] Comment on above: Performed By: #### T SH3, LDH, CBC, CMP, T4F ####[address]#### ACTH ####[facility] , Hemoglobin (Bld) [Mass/Vol] 14.0 g/dL Normal 11.8-15.4 [facility] Comment on above: Performed By: #### T SH3, LDH, CBC, CMP, T4F ####[place] [address] [place]#### ACTH ####[facility] , Lymphocytes (Bld) [#/Vol] 1.8 10*3/uL Normal 1.00-4.8 [facility] Comment on above: Performed By: #### T SH3, LDH, CBC, CMP, T4F ####[address]#### ACTH ####[facility] , Lymphocytes/100 WBC (Bld) 26.5 % Normal . [facility] Comment on above: Performed By: #### T SH3, LDH, CBC, CMP, T4F ####[address]#### ACTH ####[facility] , MCH (RBC) [Entitic mass] 29.7 pg Normal 24.7-34.3 [facility] Comment on above: Performed By: #### T SH3, LDH, CBC, CMP, T4F ####[place] [address] [place]#### ACTH ####[facility] , MCV (RBC) [Entitic vol] 87.8 fL Normal 80-100 [facility] Comment on above: Performed By: #### T SH3, LDH, CBC, CMP, T4F ####[place] [address] [place]#### ACTH ####[facility] , Mean Corpuscular HGB Conc 33.8 g/dL Normal 32.0-35.0 [facility] Comment on above: Performed By: #### T SH3, LDH, CBC, CMP, T4F ####[address]#### ACTH ####[facility] , Monocytes (Bld) [#/Vol] 0.8 10*3/uL Normal 0.0-0.8 [facility] Comment on above: Performed By: #### T SH3, LDH, CBC, CMP, T4F ####[address]#### ACTH ####[facility] , Monocytes/100 WBC (Bld) 11.2 % Normal . [facility] Comment on above: Performed By: #### T SH3, LDH, CBC, CMP, T4F ####[place] [address] [place]#### ACTH ####[facility] , Neutrophils (Bld) [#/Vol] 4.0 10*3/uL Normal 1.8-7.7 [facility] Comment on above: Performed By: #### T SH3, LDH, CBC, CMP, T4F ####[address]#### ACTH ####[facility] , Neutrophils/100 WBC (Bld) 59.6 % Normal . [facility] Comment on above: Performed By: #### T SH3, LDH, CBC, CMP, T4F ####[place] [address] [place]#### ACTH ####[facility] , NRBC% 0.0 /100{WBC} Normal 0-0.5 [facility] Comment on above: Performed By: #### T SH3, LDH, CBC, CMP, T4F ####[place] [address] [place]#### ACTH ####[facility] , Platelet mean volume (Bld) [Entitic vol] 7.1 fL Normal 6.3-10.7 [facility] Comment on above: Performed By: #### T SH3, LDH, CBC, CMP, T4F ####[address]#### ACTH ####[facility] , Platelets (Bld) [#/Vol] 201 10*3/uL Normal 150-450 [facility] Comment on above: Performed By: #### T SH3, LDH, CBC, CMP, T4F ####[address]#### ACTH ####[facility] , RBC (Bld) [#/Vol] 4.70 10*6/uL Normal 3.60-5.00 [facility] Comment on above: Performed By: #### T SH3, LDH, CBC, CMP, T4F ####[address]#### ACTH ####[facility] , WBC (Bld) [#/Vol] 6.8 10*3/uL Normal 3.8-11.6 [facility] Comment on above: Performed By: #### T SH3, LDH, CBC, CMP, T4F ####[place] [address] [place]#### ACTH ####[facility] , Comprehensive Metabolic Pane eileen 10-31-2022 Albumin [Mass/Vol] 4.0 g/dL Normal 3.5-5.7 [facility] Comment on above: Performed By: #### T SH3, LDH, CBC, CMP, T4F ####[place] [address] [place]#### ACTH ####[facility] , Albumin/Globulin [Mass ratio] 1.4 {ratio} Normal [facility] Comment on above: Performed By: #### T SH3, LDH, CBC, CMP, T4F ####[place] [address] [place]#### ACTH ####[facility] , ALP [Catalytic activity/Vol] 98 U/L Normal 34-104 [facility] Comment on above: Performed By: #### T SH3, LDH, CBC, CMP, T4F ####[place] [address] [place]#### ACTH ####[facility] , ALT [Catalytic activity/Vol] 22 U/L Normal 7-52 [facility] Comment on above: Performed By: #### T SH3, LDH, CBC, CMP, T4F ####[address]#### ACTH ####[facility] , Anion gap [Moles/Vol] 12.2 mmol/L Normal 6.0-15.0 [facility] Comment on above: Performed By: #### T SH3, LDH, CBC, CMP, T4F ####[address]#### ACTH ####[facility] , AST [Catalytic activity/Vol] 28 U/L Normal 13-39 [facility] Comment on above: Performed By: #### T SH3, LDH, CBC, CMP, T4F ####[place] [address] [place]#### ACTH ####[facility] , Bilirubin [Mass/Vol] 0.7 mg/dL Normal 0.3-1.0 [facility] Comment on above: Performed By: #### T SH3, LDH, CBC, CMP, T4F ####[place] [address] [place]#### ACTH ####[facility] , Calcium [Mass/Vol] 8.9 mg/dL Normal 8.6-10.3 [facility] Comment on above: Performed By: #### T SH3, LDH, CBC, CMP, T4F ####[address]#### ACTH ####[facility] , Chloride [Moles/Vol] 104 mmol/L Normal 98-107 [facility] Comment on above: Performed By: #### T SH3, LDH, CBC, CMP, T4F ####[address]#### ACTH ####[facility] , CO2 [Moles/Vol] 28.6 mmol/L Normal 21.0-31.0 [facility] Comment on above: Performed By: #### T SH3, LDH, CBC, CMP, T4F ####[address]#### ACTH ####[facility] , Creatinine [Mass/Vol] 0.93 mg/dL Normal 0.60-1.20 [facility] Comment on above: Performed By: #### T SH3, LDH, CBC, CMP, T4F ####[address]#### ACTH ####[facility] , Creatinine Clr Calc Pharmacy 54.88 [facility] Comment on above: Performed By: #### T SH3, LDH, CBC, CMP, T4F ####[place] [address] [place]#### ACTH ####[facility] , GFR/1.73 sq M.predicted MDRD (S/P/Bld) [Vol rate/Area] mL/min/{1.73_m2} [facility] Comment on above: Performed By: #### T SH3, LDH, CBC, CMP, T4F ####[place] [id number] [place]#### ACTH ####[facility] , Globulin (S) [Mass/Vol] 2.9 g/dL Normal [facility] Comment on above: Performed By: #### T SH3, LDH, CBC, CMP, T4F ####[place] [address] [place]#### ACTH ####[facility] , Glucose [Mass/Vol] 100 mg/dL Normal 70-100 [facility] Comment on above: Result Comment: [facility] Glucose Reference Range is dependent on time and content of last meal. Glucose of more than 200 mg/dL in a nonstressed, ambulatory subject supports the diagnosis of Diabetes Mellitus. ADA recommended reference range Performed By: #### T SH3, LDH, CBC, CMP, T4F ####[address]#### ACTH ####[facility] , Potassium [Moles/Vol] 3.8 mmol/L Normal 3.5-5.1 [facility] Comment on above: Performed By: #### T SH3, LDH, CBC, CMP, T4F ####[place] [address] [place]#### ACTH ####[facility] , Protein [Mass/Vol] 6.9 g/dL Normal 6.4-8.9 [facility] Comment on above: Performed By: #### T SH3, LDH, CBC, CMP, T4F ####[place] [address] [place]#### ACTH ####[facility] , Sodium [Moles/Vol] 141 mmol/L Normal 136-145 [facility] Comment on above: Performed By: #### T SH3, LDH, CBC, CMP, T4F ####[place] [address] [place]#### ACTH ####[facility] , Urea nitrogen [Mass/Vol] 19 mg/dL Normal 7-25 [facility] Comment on above: Performed By: #### T SH3, LDH, CBC, CMP, T4F ####[facility] [id number]#### ACTH ####[facility] , Creatinine [Mass/volume] in Serum or PlasmaOrdered By: Sly Benson on 10-31-2022 Creatinine [Mass/Vol] 0.93 mg/dL 0.60-1.20 [facility] Eosinophils Auto (Bld) [#/Vo l]Ordered By: Sly Benson on 10-31-2022 Eosinophils (Bld) [#/Vol] 0.1 10*3/uL 0.0-0.45 [facility] Eosinophils/100 WBC Auto (Bl d)Ordered By: Sly Benson on 10-31-2022 Eosinophils/100 WBC (Bld) 1.8 % . [facility] Erythrocyte distribution wid th Auto (RBC) [Ratio]Ordered By: Sly Benson on 10-31-2022 Erythrocyte distribution width (RBC) [Ratio] 15.0 % 11.9-15.3 [facility] Free T4 (Free Thyroxine)on 0 10-31-2022 Free T4 [Mass/Vol] 1.02 ng/dL Normal 0.61-1.12 [facility] Comment on above: Performed By: #### T SH3, LDH, CBC, CMP, T4F ####[facility] [id number]#### ACTH ####[facility] , Globulin Calc (S) [Mass/Vol] Ordered By: Sly Benson on 10-31-2022 Globulin (S) [Mass/Vol] 2.9 g/dL [facility] Glucose [Mass/volume] in Ser um or PlasmaOrdered By: Sly Benson on 10-31-2022 Glucose [Mass/Vol] 100 mg/dL 70-100 [facility] Comment on above: ADA recommended refe rence rangeRandom Glucose Reference Range is dependent on time and content of last meal. Glucose of more than 200 mg/dL in a nonstressed, ambulatory subject supports the diagnosis of Diabetes Mellitus. Hematocrit Auto (Bld) [Volum e fraction]Ordered By: Sly Benson on 10-31-2022 Hematocrit (Bld) [Volume fraction] 41.3 % 34.0-46.4 [facility] Hemoglobin [Mass/volume] in BloodOrdered By: Sly Benson on 10-31-2022 Hemoglobin (Bld) [Mass/Vol] 14.0 g/dL 11.8-15.4 [facility] LDH Lactate Dehydrogenaseon 10-31-2022 LDH Lactate Dehydrogenase 226 U/L Normal 140-271 [facility] Comment on above: Performed By: #### T SH3, LDH, CBC, CMP, T4F ####[facility] [id number] [id number] [facility]#### ACTH ####[facility] , Lactate dehydrogenase [Enzym atic activity/volume] in Serum or Plasma by Lactate to pyOrdered By: Sly Benson on 10-31-2022 LDH Lactate to pyruvate reaction [Catalytic activity/Vol] 226 U/L 140-271 [facility] Leukocytes [#/volume] correc margot for nucleated erythrocytes in Blood by Automated counOrdered By: Sly Benson on 10-31-2022 WBC corrected for nucl RBC Auto (Bld) [#/Vol] 6.8 10*3/uL 3.8-11.6 [facility] Lymphocytes Auto (Bld) [#/Vo l]Ordered By: Sly Benson on 10-31-2022 Lymphocytes (Bld) [#/Vol] 1.8 10*3/uL 1.00-4.8 [facility] Lymphocytes/100 WBC Auto (Bl d)Ordered By: Sly Benson on 10-31-2022 Lymphocytes/100 WBC (Bld) 26.5 % . [facility] MCH Auto (RBC) [Entitic mass ]Ordered By: Sly Benson on 10-31-2022 MCH (RBC) [Entitic mass] 29.7 pg 24.7-34.3 [facility] MCHC Auto (RBC) [Mass/Vol]Or dered By: Sly Benson on 10-31-2022 MCHC (RBC) [Mass/Vol] 33.8 g/dL 32.0-35.0 [facility] MCV Auto (RBC) [Entitic vol] Ordered By: Sly Benson on 10-31-2022 MCV (RBC) [Entitic vol] 87.8 fL 80-100 [facility] Monocytes Auto (Bld) [#/Vol] Ordered By: Sly Benson on 10-31-2022 Monocytes (Bld) [#/Vol] 0.8 10*3/uL 0.0-0.8 [facility] Monocytes/100 WBC Auto (Bld) Ordered By: Sly Benson on 10-31-2022 Monocytes/100 WBC (Bld) 11.2 % . [facility] Neutrophils Auto (Bld) [#/Vo l]Ordered By: Sly Benson on 10-31-2022 Neutrophils (Bld) [#/Vol] 4.0 10*3/uL 1.8-7.7 [facility] Neutrophils/100 WBC Auto (Bl d)Ordered By: Sly Benson on 10-31-2022 Neutrophils/100 WBC (Bld) 59.6 % . [facility] No Panel InformationOrdered By: Sly Benson on 10-31-2022 Adrenocorticotropic Hormone 35.2 pg/mL 7.2-63.3 [facility] Comment on above: ACTH reference inter jamel for samples collected between 7 and10 AM.Performed at: - [facility] [id number] Director: Coleman Lacy PhD, Phone: [phone] Estimated GFR (CKD-EPI) > 60.0 mL/Min [facility] Creatinine Clearance (Chem 54.88 [facility] Nucleated erythrocytes [Pres ence] in Blood by Automated countOrdered By: Sly Benson on 10-31-2022 Nucleated RBC Auto Ql (Bld) 0.0 /100{WBC} 0-0.5 [facility] Platelet mean volume Auto (B ld) [Entitic vol]Ordered By: Sly Benson on 10-31-2022 Platelet mean volume (Bld) [Entitic vol] 7.1 fL 6.3-10.7 [facility] Platelets Auto (Bld) [#/Vol] Ordered By: Sly Bensno on 10-31-2022 Platelets (Bld) [#/Vol] 201 10*3/uL 150-450 [facility] Potassium [Moles/volume] in Serum or PlasmaOrdered By: Sly Benson on 10-31-2022 Potassium [Moles/Vol] 3.8 mmol/L 3.5-5.1 [facility] Protein [Mass/volume] in Ser um or PlasmaOrdered By: Sly Benson on 10-31-2022 Protein [Mass/Vol] 6.9 g/dL 6.4-8.9 [facility] RBC Auto (Bld) [#/Vol]Ordere d By: Sly Benson on 10-31-2022 RBC (Bld) [#/Vol] 4.70 10*6/uL 3.60-5.00 [facility] Serum or plasma albumin/glob ulin mass ratioOrdered By: Sly Benson on 10-31-2022 Albumin/Globulin [Mass ratio] 1.4 {ratio} [facility] Serum or plasma anion gap de terminationOrdered By: Sly Benson on 10-31-2022 Anion gap [Moles/Vol] 12.2 mmol/L 6.0-15.0 [facility] Sodium [Moles/volume] in Ser um or PlasmaOrdered By: Sly Benson on 10-31-2022 Sodium [Moles/Vol] 141 mmol/L 136-145 [facility] Thyroid Stimulating Hormoneo n 10-31-2022 TSH Qn 2.49 m[IU]/L Normal 0.45-5.33 [facility] Comment on above: Result Comment: PERF ORMED BY: [facility] [address] [place] [address] PATHOLOGIST PORTRAIT ARTIST WAYLON SAUNDERS M.D. Performed By: #### T SH3, LDH, CBC, CMP, T4F ####[facility] [id number] [id number] [facility]#### ACTH ####[facility] , Thyrotropin [Units/volume] i n Serum or PlasmaOrdered By: Sly Benson on 10-31-2022 TSH Qn 2.49 m[IU]/L 0.45-5.33 [facility] Thyroxine (T4) free [Mass/vo lume] in Serum or PlasmaOrdered By: Sly Benson on 10-31-2022 Free T4 [Mass/Vol] 1.02 ng/dL 0.61-1.12 [facility] Urea nitrogen [Mass/volume] in Serum or PlasmaOrdered By: Sly Benson on 10-31-2022 Urea nitrogen [Mass/Vol] 19 mg/dL 02-03 [facility] WBC Auto (Bld) [#/Vol]Ordere d By: Sly Benson on 10-31-2022 WBC (Bld) [#/Vol] 6.8 10*3/uL 3.8-11.6 [facility] ACTH, PLASMAon 10-04-2022 ACTH, Plasma 48.7 pg/mL Normal 7.2-63.3 [facility] Comment on above: Result Comment: ACTH reference interval for samples collected between 7 and 10 AM. Performed By: #### A CTHP #### [facility] [address] [address] [address] Alesia Meyers CBC AUTO DIFFon 10-03-2022 BASO # 0.1 103/ul Normal 0.0-0.1 [facility] Comment on above: Performed By: #### T SH, CMP, LDH #### [facility] [address] [address] [address] Alesia Meyers Basophils/100 WBC (Bld) 1.2 % Normal 0.2-2.0 [facility] Comment on above: Performed By: #### T SH, CMP, LDH #### [facility] [address] [address] [address] Alesia Meyers EO # 0.2 103/ul Normal 0.0-0.7 [facility] Comment on above: Performed By: #### T SH, CMP, LDH #### [facility] [address] [place] [address] Dr. Alesia Meyers Eosinophils/100 WBC (Bld) 2.5 % Normal 0.9-7.0 [facility] Comment on above: Performed By: #### T SH, CMP, LDH #### [facility] [address] [place] [address] Dr. Alesia Meyers Erythrocyte distribution width (RBC) [Ratio] 13.9 % Normal 11.0-15.0 [facility] Comment on above: Performed By: #### T SH, CMP, LDH #### [facility] [address] [place] [address] Dr. Alesia Meyers Hematocrit (Bld) [Volume fraction] 41.9 % Normal 36.0-48.0 [facility] Comment on above: Performed By: #### T SH, CMP, LDH #### [facility] [address] [place] [address] Dr. Alesia Meyers Hemoglobin (Bld) [Mass/Vol] 13.6 g/dL Normal 12.0-16.0 [facility] Comment on above: Performed By: #### T SH, CMP, LDH #### [facility] [address] [place] [address] Dr. Alesia Meyers IG # 0.04 10e3/ul Critically high 0.00-0.03 [facility] Comment on above: Performed By: #### T SH, CMP, LDH #### [facility] [address] [place] [address] Dr. Alesia Meyers IG % 0.7 % Critically high 0.0-0.5 [facility] Comment on above: Performed By: #### T SH, CMP, LDH #### [facility] [address] [place] [address] Dr. Alesia Meyers LYMPH # 2.1 103/ul Normal 1.2-3.8 [facility] Comment on above: Performed By: #### T SH, CMP, LDH #### [facility] [address] [place] [address] Dr. Alesia Meyers Lymphocytes/100 WBC (Bld) 35.5 % Normal 20.5-60.0 [facility] Comment on above: Performed By: #### T SH, CMP, LDH #### [facility] [address] [place] [address] Dr. Alesia Meyers MANUAL DIFF REQ NO Normal [facility] Comment on above: Performed By: #### T SH, CMP, LDH #### [facility] [address] [place] [address] Dr. Alesia Meyers MCH (RBC) [Entitic mass] 28.9 pg Normal 26.7-34.0 [facility] Comment on above: Performed By: #### T SH, CMP, LDH #### [facility] [address] [place] [address] Dr. Alesia Meyers MCHC (RBC) [Mass/Vol] 32.5 g/dL Normal 29.9-35.2 [facility] Comment on above: Performed By: #### T SH, CMP, LDH #### [facility] [address] [place] [address] Dr. Alesia Meyers MCV (RBC) [Entitic vol] 89.1 fL Normal 81.0-99.0 [facility] Comment on above: Performed By: #### T SH, CMP, LDH #### [facility] [address] [place] [address] Dr. Alesia Meyers MONO # 0.6 103/ul Normal 0.3-0.8 [facility] Comment on above: Performed By: #### T SH, CMP, LDH #### [facility] [address] [place] [address] Dr. Alesia Meyers Monocytes/100 WBC (Bld) 10.8 % Normal 1.7-12.0 [facility] Comment on above: Performed By: #### T SH, CMP, LDH #### [facility] [address] [place] [address] Dr. Alesia Meyers NEUT # 2.9 103/ul Normal 1.4-6.5 [facility] Comment on above: Performed By: #### T SH, CMP, LDH #### [facility] [address] [place] [address] Dr. Alesia Meyers Neutrophils/100 WBC (Bld) 49.3 % Normal 43.0-75.0 [facility] Comment on above: Performed By: #### T SH, CMP, LDH #### [facility] [address] [place] [address] Dr. Alesia Meyers Platelet mean volume (Bld) [Entitic vol] 8.8 fL Critically low 9.5-13.5 [facility] Comment on above: Performed By: #### T SH, CMP, LDH #### [facility] [address] [place] [address] Dr. Alesia Meyers PLT 226 103/ul Normal 150-450 [facility] Comment on above: Performed By: #### T SH, CMP, LDH #### [facility] [address] [place] [address] Dr. Alesia Meyers RBC 4.70 106/ul Normal 4.20-5.40 [facility] Comment on above: Performed By: #### T SH, CMP, LDH #### [facility] [address] [place] [address] Dr. Alesia Meyers WBC 5.9 103/ul Normal 4.0-11.0 [facility] Comment on above: Performed By: #### T SH, CMP, LDH #### [facility] [address] [place] [address] Dr. Alesia Meyers FREE T4on 10-03-2022 Free T4 [Mass/Vol] 1.02 ng/dL Normal 0.76-1.46 [facility] Comment on above: Performed By: #### F T4 #### [facility] [address] [place] [address] Dr. Alesia Meyers LDHon 10-03-2022 LDH 212 U/L Normal 81-234 [facility] Comment on above: Performed By: #### F T4 #### [facility] [address] [place] [address] Dr. Alesia Meyers PROF 14(COMP METB)on 023 Albumin [Mass/Vol] 3.5 g/dL Normal 3.4-5.0 [facility] Comment on above: Performed By: #### F T4 #### [facility] [address] [place] [address] Dr. Alesia Meyers Albumin/Globulin [Mass ratio] 1.1 {ratio} Normal [facility] Comment on above: Performed By: #### F T4 #### [facility] [address] [address] [address] Alesia Meyers ALP [Catalytic activity/Vol] 120 U/L Critically high 46-116 [facility] Comment on above: Performed By: #### F T4 #### [facility] [address] [place] [address] Dr. Alesia Meyers ALT [Catalytic activity/Vol] 37 U/L Normal 14-59 [facility] Comment on above: Performed By: #### F T4 #### [facility] [address] [place] [address] Dr. Alesia Meyers Anion gap [Moles/Vol] 11.4 mmol/L Normal [facility] Comment on above: Performed By: #### F T4 #### [facility] [address] [place] [address] Dr. Alesia Meyers AST [Catalytic activity/Vol] 28 U/L Normal 15-37 [facility] Comment on above: Performed By: #### F T4 #### [facility] [address] [place] [address] Dr. Alesia Meyers Bilirubin [Mass/Vol] 0.4 mg/dL Normal 0.2-1.0 [facility] Comment on above: Performed By: #### F T4 #### [facility] [address] [place] [address] Dr. Alesia Meyers Calcium [Mass/Vol] 9.2 mg/dL Normal 8.5-10.1 [facility] Comment on above: Performed By: #### F T4 #### [facility] [address] [place] [address] Dr. Alesia Meyers Chloride [Moles/Vol] 105 mmol/L Normal 98-107 [facility] Comment on above: Performed By: #### F T4 #### [facility] [address] [address] [address] Alesia Meyers CO2 [Moles/Vol] 30.4 mmol/L Normal 21.0-32.0 [facility] Comment on above: Performed By: #### F T4 #### [facility] [address] [address] [address] Alesia Meyers Creatinine [Mass/Vol] 0.88 mg/dL Normal 0.55-1.02 [facility] Comment on above: Performed By: #### F T4 #### [facility] [address] [place] [address] Dr. Alesia Meyers EGFR-AF [place]ER >60 Normal >=60 [facility] Comment on above: Performed By: #### F T4 #### [facility] [address] [place] [address] Dr. Alesia Meyers EGFR-NON AF [place]ER >60 Normal >=60 [facility] Comment on above: Performed By: #### F T4 #### [facility] [address] [place] [address] Dr. Alesia Meyers Globulin (S) [Mass/Vol] 3.3 g/dL Normal [facility] Comment on above: Performed By: #### F T4 #### [facility] [address] [place] [address] Dr. Alesia Meyers Glucose [Mass/Vol] 104 mg/dL Normal 74-106 [facility] Comment on above: Performed By: #### F T4 #### [facility] [address] [place] [address] Dr. Alesia Meyers Potassium [Moles/Vol] 3.8 mmol/L Normal 3.5-5.1 [facility] Comment on above: Performed By: #### F T4 #### [facility] [address] [place] [address] Dr. Alesia Meyers Protein [Mass/Vol] 6.8 g/dL Normal 6.4-8.2 [facility] Comment on above: Performed By: #### F T4 #### [facility] [address] [address] [address] Alesia Meyers Sodium [Moles/Vol] 143 mmol/L Normal 136-145 [facility] Comment on above: Performed By: #### F T4 #### [facility] [address] [address] [address] Alesia Meyers Urea nitrogen [Mass/Vol] 19.0 mg/dL Critically high 7.0-18.0 [facility] Comment on above: Performed By: #### F T4 #### [facility] [address] [place] [address] Dr. Alesia Meyers Urea nitrogen/Creatinine [Mass ratio] 21.6 mg/mg Normal [facility] Comment on above: Performed By: #### F T4 #### [facility] [address] [place] [address] Dr. Alesia Meyers TSHon 10-03-2022 TSH 3.819 uIU/mL Critically high 0.358-3.74 0 [facility] Comment on above: Performed By: #### F T4 #### [facility] [address] [place] [address] Dr. Alesia Meyers ACTH, PLASMAon 09-06-2022 ACTH, Plasma 6.3 pg/mL Critically low 7.2-63.3 [facility] Comment on above: Result Comment: ACTH reference interval for samples collected between 7 and 10 AM. Performed By: #### T SH, CMP, LDH #### [facility] [address] [place] [address] Dr. Alesia Meyers CBC AUTO DIFFon 09-05-2022 BASO # 0.0 103/ul Normal 0.0-0.1 [facility] Comment on above: Performed By: #### T SH, CMP, LDH #### [facility] [address] [place] [address] Dr. Alesia Meyers Basophils/100 WBC (Bld) 0.3 % Normal 0.2-2.0 [facility] Comment on above: Performed By: #### T SH, CMP, LDH #### [facility] [address] [place] [address] Dr. Alesia Meyers EO # 0.1 103/ul Normal 0.0-0.7 [facility] Comment on above: Performed By: #### T SH, CMP, LDH #### [facility] [address] [place] [address] Dr. Alesia Meyers Eosinophils/100 WBC (Bld) 0.6 % Critically low 0.9-7.0 [facility] Comment on above: Performed By: #### T SH, CMP, LDH #### [facility] [address] [place] [address] Dr. Alesia Meyers Erythrocyte distribution width (RBC) [Ratio] 14.4 % Normal 11.0-15.0 [facility] Comment on above: Performed By: #### T SH, CMP, LDH #### [facility] [address] [place] [address] Dr. Alesia Meyers Hematocrit (Bld) [Volume fraction] 41.6 % Normal 36.0-48.0 [facility] Comment on above: Performed By: #### T SH, CMP, LDH #### [facility] [address] [place] [address] Dr. Alesia Meyers Hemoglobin (Bld) [Mass/Vol] 13.7 g/dL Normal 12.0-16.0 [facility] Comment on above: Performed By: #### T SH, CMP, LDH #### [facility] [address] [place] [address] Dr. Alesia Meyers IG # 0.14 10e3/ul Critically high 0.00-0.03 [facility] Comment on above: Performed By: #### T SH, CMP, LDH #### [facility] [address] [place] [address] Dr. Alesia Meyers IG % 1.6 % Critically high 0.0-0.5 [facility] Comment on above: Performed By: #### T SH, CMP, LDH #### [facility] [address] [place] [address] Dr. Alesia Meyers LYMPH # 2.7 103/ul Normal 1.2-3.8 [facility] Comment on above: Performed By: #### T SH, CMP, LDH #### [facility] [address] [place] [address] Dr. Alesia Meyers Lymphocytes/100 WBC (Bld) 30.2 % Normal 20.5-60.0 [facility] Comment on above: Performed By: #### T SH, CMP, LDH #### [facility] [address] [place] [address] Dr. Alesia Meyers MANUAL DIFF REQ NO Normal [facility] Comment on above: Performed By: #### T SH, CMP, LDH #### [facility] [address] [place] [address] Dr. Alesia Meyers MCH (RBC) [Entitic mass] 28.7 pg Normal 26.7-34.0 [facility] Comment on above: Performed By: #### T SH, CMP, LDH #### [facility] [address] [place] [address] Dr. Alesia Meyers MCHC (RBC) [Mass/Vol] 32.9 g/dL Normal 29.9-35.2 [facility] Comment on above: Performed By: #### T SH, CMP, LDH #### [facility] [address] [place] [address] Dr. Alesia Meyers MCV (RBC) [Entitic vol] 87.2 fL Normal 81.0-99.0 [facility] Comment on above: Performed By: #### T SH, CMP, LDH #### [facility] [address] [place] [address] Dr. Alesia Meyers MONO # 1.0 103/ul Critically high 0.3-0.8 [facility] Comment on above: Performed By: #### T SH, CMP, LDH #### [facility] [address] [place] [address] Dr. Alesia Meyers Monocytes/100 WBC (Bld) 10.8 % Normal 1.7-12.0 [facility] Comment on above: Performed By: #### T SH, CMP, LDH #### [facility] [address] [place] [address] Dr. Alesia Meyers NEUT # 5.0 103/ul Normal 1.4-6.5 [facility] Comment on above: Performed By: #### T SH, CMP, LDH #### [facility] [address] [place] [address] Dr. Alesia Meyers Neutrophils/100 WBC (Bld) 56.5 % Normal 43.0-75.0 [facility] Comment on above: Performed By: #### T SH, CMP, LDH #### [facility] [address] [place] [address] Dr. Alesia Meyers Platelet mean volume (Bld) [Entitic vol] 9.1 fL Critically low 9.5-13.5 [facility] Comment on above: Performed By: #### T SH, CMP, LDH #### [facility] [address] [place] [address] Dr. Alesia Meyers PLT 217 103/ul Normal 150-450 [facility] Comment on above: Performed By: #### T SH, CMP, LDH #### [facility] [address] [place] [address] Dr. Alesia Meyers RBC 4.77 106/ul Normal 4.20-5.40 [facility] Comment on above: Performed By: #### T SH, CMP, LDH #### [facility] [address] [place] [address] Dr. Alesia Meyers WBC 8.8 103/ul Normal 4.0-11.0 [facility] Comment on above: Performed By: #### T SH, CMP, LDH #### [facility] [address] [place] [address] Dr. Alesia Meyers FREE T4on 09-05-2022 Free T4 [Mass/Vol] 1.22 ng/dL Normal 0.76-1.46 [facility] Comment on above: Performed By: #### F T4 #### [facility] [address] [place] [address] Dr. Alesia Meyers LDHon 09-05-2022 LDH 212 U/L Normal 81-234 [facility] Comment on above: Performed By: #### T SH, CMP, LDH #### [facility] [address] [address] [address] Alesia Meyers PROF 14(COMP METB)on 023 Albumin [Mass/Vol] 3.4 g/dL Normal 3.4-5.0 [facility] Comment on above: Performed By: #### T SH, CMP, LDH #### [facility] [address] [address] [address] Alesia Meyers Albumin/Globulin [Mass ratio] 1.1 {ratio} Normal [facility] Comment on above: Performed By: #### T SH, CMP, LDH #### [facility] [address] [address] [address] Alesia Meyers ALP [Catalytic activity/Vol] 101 U/L Normal 46-116 [facility] Comment on above: Performed By: #### T SH, CMP, LDH #### [facility] [address] [address] [address] Alesia Meyers ALT [Catalytic activity/Vol] 40 U/L Normal 14-59 [facility] Comment on above: Performed By: #### T SH, CMP, LDH #### [facility] [address] [address] [address] Alesia Meyers Anion gap [Moles/Vol] 10.7 mmol/L Normal [facility] Comment on above: Performed By: #### T SH, CMP, LDH #### [facility] [address] [address] [address] Alesia Meyers AST [Catalytic activity/Vol] 25 U/L Normal 15-37 [facility] Comment on above: Performed By: #### T SH, CMP, LDH #### [facility] [address] [address] [address] Alesia Meyers Bilirubin [Mass/Vol] 0.4 mg/dL Normal 0.2-1.0 [facility] Comment on above: Performed By: #### T SH, CMP, LDH #### [facility] [address] [address] [address] Alesia Meyers Calcium [Mass/Vol] 8.7 mg/dL Normal 8.5-10.1 [facility] Comment on above: Performed By: #### T SH, CMP, LDH #### [facility] [address] [address] [address] Alesia Meyers Chloride [Moles/Vol] 105 mmol/L Normal 98-107 [facility] Comment on above: Performed By: #### T SH, CMP, LDH #### [facility] [address] [address] [address] Alesia Meyers CO2 [Moles/Vol] 30.0 mmol/L Normal 21.0-32.0 [facility] Comment on above: Performed By: #### T SH, CMP, LDH #### [facility] [address] [place] [address] Dr. Alesia Meyers Creatinine [Mass/Vol] 0.83 mg/dL Normal 0.55-1.02 [facility] Comment on above: Performed By: #### T SH, CMP, LDH #### [facility] [address] [place] [address] Dr. Alesia Meyers EGFR-AF [place] >60 Normal >=60 [facility] Comment on above: Performed By: #### T SH, CMP, LDH #### [facility] [address] [place] [address] Dr. Alesia Meyers EGFR-NON AF [place] >60 Normal >=60 [facility] Comment on above: Performed By: #### T SH, CMP, LDH #### [facility] [address] [address] [address] Alesia Meeyrs Globulin (S) [Mass/Vol] 3.2 g/dL Normal [facility] Comment on above: Performed By: #### T SH, CMP, LDH #### [facility] [address] [address] [address] Alesia Meyers Glucose [Mass/Vol] 96 mg/dL Normal 74-106 [facility] Comment on above: Performed By: #### T SH, CMP, LDH #### [facility] [address] [place] [address] Dr. Alesia Meyers Potassium [Moles/Vol] 3.7 mmol/L Normal 3.5-5.1 [facility] Comment on above: Performed By: #### T SH, CMP, LDH #### [facility] [address] [address] [address] Alesia Meyers Protein [Mass/Vol] 6.6 g/dL Normal 6.4-8.2 [facility] Comment on above: Performed By: #### T SH, CMP, LDH #### [facility] [address] [address] [address] Alesia Meyers Sodium [Moles/Vol] 142 mmol/L Normal 136-145 [facility] Comment on above: Performed By: #### T SH, CMP, LDH #### [facility] [address] [place] [address] Dr. Alesia Meyers Urea nitrogen [Mass/Vol] 29.0 mg/dL Critically high 7.0-18.0 [facility] Comment on above: Performed By: #### T SH, CMP, LDH #### [facility] [address] [address] [address] Alesia Meyers Urea nitrogen/Creatinine [Mass ratio] 34.9 mg/mg Normal [facility] Comment on above: Performed By: #### T SH, CMP, LDH #### [facility] [address] [place] [address] Dr. Alesia Meyers TSHon 09-05-2022 TSH 3.372 uIU/mL Normal 0.358-3.74 0 [facility] Comment on above: Performed By: #### T SH, CMP, LDH #### [facility] [address] [place] [address] Dr. Alesia Meyers Albumin [Mass/volume] in Ser um or PlasmaOrdered By: Sly Benson on 08-08-2022 Albumin [Mass/Vol] 4.0 g/dL 3.2-5.5 [facility] Basophils Auto (Bld) [#/Vol] Ordered By: Sly Benson on 08-08-2022 Basophils (Bld) [#/Vol] 0.1 10*3/uL 0.0-0.2 [facility] Basophils/100 WBC Auto (Bld) Ordered By: Sly Benson on 08-08-2022 Basophils/100 WBC (Bld) 0.7 % . [facility] Creatinine and Glomerular fi ltration rate.predicted panel (S/P/Bld)Ordered By: Sly Benson on 08-08-2022 Creatinine [Mass/Vol] 0.93 mg/dL 0.44-1.03 [facility] Direct bilirubin measurement Ordered By: Sly Benson on 08-08-2022 Bilirubin.direct [Mass/Vol] mg/dL 0.0-0.4 [facility] Eosinophils Auto (Bld) [#/Vo l]Ordered By: Sly Benson on 08-08-2022 Eosinophils (Bld) [#/Vol] 0.2 10*3/uL 0.0-0.45 [facility] Eosinophils/100 WBC Auto (Bl d)Ordered By: Sly Benson on 08-08-2022 Eosinophils/100 WBC (Bld) 2.1 % . [facility] Erythrocyte distribution wid th Auto (RBC) [Ratio]Ordered By: Sly Benson on 08-08-2022 Erythrocyte distribution width (RBC) [Ratio] 14.7 % 11.9-15.3 [facility] Estimated glomerular filtrat ion rate (GFR) non- AmericanOrdered By: Sly Benson on 08-08-2022 GFR/1.73 sq M.predicted among non-blacks MDRD (S/P/Bld) [Vol rate/Area] 59 mL/Min [facility] Globulin Calc (S) [Mass/Vol] Ordered By: Sly Benson on 08-08-2022 Globulin (S) [Mass/Vol] 3.1 g/dL [facility] Hematocrit Auto (Bld) [Volum e fraction]Ordered By: Sly Benson on 08-08-2022 Hematocrit (Bld) [Volume fraction] 42.9 % 34.0-46.4 [facility] Hemoglobin [Mass/volume] in BloodOrdered By: Sly Benson on 08-08-2022 Hemoglobin (Bld) [Mass/Vol] 14.4 g/dL 11.8-15.4 [facility] Laboratory - Chemistry and C hemistry - challengeOrdered By: Sly Benson on 08-08-2022 Lipase [Catalytic activity/Vol] 33.0 U/L 22-51 [facility] Lactate dehydrogenase measur ement (enzymatic activity/volume)Ordered By: Sly Benson on 08-08-2022 LDH (Unsp spec) [Catalytic activity/Vol] 209 U/L 45-190 [facility] Leukocytes [#/volume] correc margot for nucleated erythrocytes in Blood by Automated counOrdered By: Sly Benson on 08-08-2022 WBC corrected for nucl RBC Auto (Bld) [#/Vol] 7.6 10*3/uL 3.8-11.6 [facility] Lymphocytes Auto (Bld) [#/Vo l]Ordered By: Sly Benson on 08-08-2022 Lymphocytes (Bld) [#/Vol] 2.2 10*3/uL 1.00-4.8 [facility] Lymphocytes/100 WBC Auto (Bl d)Ordered By: Sly Benson on 08-08-2022 Lymphocytes/100 WBC (Bld) 29.6 % . [facility] MCH Auto (RBC) [Entitic mass ]Ordered By: Sly Benson on 08-08-2022 MCH (RBC) [Entitic mass] 29.0 pg 24.7-34.3 [facility] MCHC Auto (RBC) [Mass/Vol]Or dered By: Sly Benson on 08-08-2022 MCHC (RBC) [Mass/Vol] 33.6 g/dL 32.0-35.0 [facility] MCV Auto (RBC) [Entitic vol] Ordered By: Sly Benson on 08-08-2022 MCV (RBC) [Entitic vol] 86.1 fL 80-100 [facility] Monocytes Auto (Bld) [#/Vol] Ordered By: Sly Benson on 08-08-2022 Monocytes (Bld) [#/Vol] 0.7 10*3/uL 0.0-0.8 [facility] Monocytes/100 WBC Auto (Bld) Ordered By: Sly Benson on 08-08-2022 Monocytes/100 WBC (Bld) 9.0 % . [facility] Neutrophils Auto (Bld) [#/Vo l]Ordered By: Sly Benson on 08-08-2022 Neutrophils (Bld) [#/Vol] 4.4 10*3/uL 1.8-7.7 [facility] Neutrophils/100 WBC Auto (Bl d)Ordered By: Sly Benson on 08-08-2022 Neutrophils/100 WBC (Bld) 58.6 % . [facility] No Panel InformationOrdered By: Sly Benson on 08-08-2022 Adrenocorticotropic Hormone 35.2 pg/mL 7.2-63.3 [facility] Comment on above: ACTH reference inter jamel for samples collected between 7 and10 AM.Performed at: [facility] [id number] Director: Coleman Lacy PhD, Phone: [phone] Estimated GFR () > 60 mL/Min [facility] Comment on above: GFR estimated refere nce range: According to KDOQI guidelines, <60 ml/min/1.73m2 is sufficient to diagnose a patient with chronic kidney disease. Pharmacy Creatinine Clearance (Chem 55.32 [facility] Nucleated erythrocytes [Pres ence] in Blood by Automated countOrdered By: Sly Benson on 08-08-2022 Nucleated RBC Auto Ql (Bld) 0.1 /100{WBC} 0-0.5 [facility] Platelet mean volume Auto (B ld) [Entitic vol]Ordered By: Sly Benson on 08-08-2022 Platelet mean volume (Bld) [Entitic vol] 7.5 fL 6.3-10.7 [facility] Platelets Auto (Bld) [#/Vol] Ordered By: Sly Benson on 08-08-2022 Platelets (Bld) [#/Vol] 216 10*3/uL 150-450 [facility] Protein [Mass/volume] in Ser um or PlasmaOrdered By: Sly Benson on 08-08-2022 Protein [Mass/Vol] 7.1 g/dL 6.1-7.9 [facility] RBC Auto (Bld) [#/Vol]Ordere d By: Sly Benson on 08-08-2022 RBC (Bld) [#/Vol] 4.98 10*6/uL 3.60-5.00 [facility] Random cortisol measurementO rdered By: Sly Benson on 08-08-2022 Cortisol [Mass/Vol] 11.8 ug/dL [facility] Comment on above: Reference range: AM 6 - 24 ug/dl PM <10 ug/dl Serum or plasma alanine castro otransferase measurement without P-5'-P (enzymatic activiOrdered By: Sly Benson on 08-08-2022 ALT No additional P-5'-P [Catalytic activity/Vol] 32 U/L 10-60 [facility] Serum or plasma albumin/glob ulin mass ratioOrdered By: lSy Benson on 08-08-2022 Albumin/Globulin [Mass ratio] 1.3 {ratio} [facility] Serum or plasma alkaline halel sphatase measurement (enzymatic activity/volume)Ordered By: Sly Benson on 08-08-2022 ALP [Catalytic activity/Vol] 99 U/L 32-92 [facility] Serum or plasma anion gap de terminationOrdered By: Sly Benson on 08-08-2022 Anion gap [Moles/Vol] 11.2 mmol/L 6.0-15.0 [facility] Serum or plasma aspartate am inotransferase measurement (enzymatic activity/volume)Ordered By: Sly Benson on 08-08-2022 AST [Catalytic activity/Vol] 34 U/L 10-42 [facility] Serum or plasma calcium diamond urement (mass/volume)Ordered By: Sly Benson on 08-08-2022 Calcium [Mass/Vol] 9.3 mg/dL 8.2-10.2 [facility] Serum or plasma chloride zora surement (moles/volume)Ordered By: Sly Benson on 08-08-2022 Chloride [Moles/Vol] 102 mmol/L 95-114 [facility] Serum or plasma glucose diamond urement (mass/volume)Ordered By: Sly Benson on 08-08-2022 Glucose [Mass/Vol] 101 mg/dL 70-100 [facility] Comment on above: ADA recommended refe rence rangeRandom Glucose Reference Range is dependent on time and content of last meal. Glucose of more than 200 mg/dL in a nonstressed, ambulatory subject supports the diagnosis of Diabetes Mellitus. Serum or plasma non-glucuron idated bilirubin measurement (mass/volume)Ordered By: Sly Benson on 08-08-2022 Bilirubin.indirect [Mass/Vol] TNP [facility] Comment on above: Test not performed Serum or plasma potassium me asurement (moles/volume)Ordered By: Sly Benson on 08-08-2022 Potassium [Moles/Vol] 3.3 mmol/L 3.5-5.1 [facility] Serum or plasma sodium measu rement (moles/volume)Ordered By: Sly Benson on 08-08-2022 Sodium [Moles/Vol] 139 mmol/L 136-146 [facility] Serum or plasma total biliru bin measurement (mass/volume)Ordered By: Sly Benson on 08-08-2022 Bilirubin [Mass/Vol] 0.7 mg/dL 0.3-1.2 [facility] Serum or plasma total carbon dioxide measurement (moles/volume)Ordered By: Sly Benson on 08-08-2022 CO2 [Moles/Vol] 29.1 mmol/L 22.0-30.0 [facility] Serum or plasma urea nitroge n measurement (mass/volume)Ordered By: Sly Bensno on 08-08-2022 Urea nitrogen [Mass/Vol] 18 mg/dL - [facility] TSH DL <= 0.005 mIU/L QnOrde red By: Sly Benson on 08-08-2022 TSH Qn 2.80 m[IU]/L 0.45-5.33 [facility] Thyroxine (T4) free [Mass/vo lume] in Serum or PlasmaOrdered By: Sly Benson on 08-08-2022 Free T4 [Mass/Vol] 0.99 ng/dL 0.61-1.12 [facility] WBC Auto (Bld) [#/Vol]Ordere d By: Sly Benson on 08-08-2022 WBC (Bld) [#/Vol] 7.6 10*3/uL 3.8-11.6 [facility] ACTH, PLASMAon 07-22-2022 ACTH, Plasma 29.5 pg/mL Normal 7.2-63.3 [facility] Comment on above: Result Comment: ACTH reference interval for samples collected between 7 and 10 AM. Performed By: #### A CTHP #### [facility] [address] [address] [address] Alesia Meyers CORTISOLon 07-22-2022 Cortisol 10.0 ug/dL Normal [facility] Comment on above: Result Comment: Melvin isol AM 6.2 - 19.4 Cortisol PM 2.3 - 11.9 Performed By: #### T SH, CMP, LDH #### [facility] [address] [place] [address] Dr. Alesia Meyers CBC AUTO DIFFon 07-21-2022 BASO # 0.0 103/ul Normal 0.0-0.1 [facility] Comment on above: Performed By: #### T SH, CMP, LDH #### [facility] [address] [address] [address] Alesia Meyers Basophils/100 WBC (Bld) 0.6 % Normal 0.2-2.0 [facility] Comment on above: Performed By: #### T SH, CMP, LDH #### [facility] [address] [address] [address] Alesia Meyers EO # 0.1 103/ul Normal 0.0-0.7 [facility] Comment on above: Performed By: #### T SH, CMP, LDH #### [facility] [address] [place] [address] Dr. Alesia Meyers Eosinophils/100 WBC (Bld) 1.8 % Normal 0.9-7.0 [facility] Comment on above: Performed By: #### T SH, CMP, LDH #### [facility] [address] [place] [address] Dr. Alesia Meyers Erythrocyte distribution width (RBC) [Ratio] 13.2 % Normal 11.0-15.0 [facility] Comment on above: Performed By: #### T SH, CMP, LDH #### [facility] [address] [place] [address] Dr. Alesia Meyers Hematocrit (Bld) [Volume fraction] 40.4 % Normal 36.0-48.0 [facility] Comment on above: Performed By: #### T SH, CMP, LDH #### [facility] [address] [place] [address] Dr. Alesia Meyers Hemoglobin (Bld) [Mass/Vol] 14.1 g/dL Normal 12.0-16.0 [facility] Comment on above: Performed By: #### T SH, CMP, LDH #### [facility] [address] [place] [address] Dr. Alesia Meyers IG # 0.03 10e3/ul Normal 0.00-0.03 [facility] Comment on above: Performed By: #### T SH, CMP, LDH #### [facility] [address] [place] [address] Dr. Alesia Meyers IG % 0.4 % Normal 0.0-0.5 [facility] Comment on above: Performed By: #### T SH, CMP, LDH #### [facility] [address] [place] [address] Dr. Alesia Meyers LYMPH # 1.9 103/ul Normal 1.2-3.8 [facility] Comment on above: Performed By: #### T SH, CMP, LDH #### [facility] [address] [place] [address] Dr. Alesia Meyers Lymphocytes/100 WBC (Bld) 27.5 % Normal 20.5-60.0 [facility] Comment on above: Performed By: #### T SH, CMP, LDH #### [facility] [address] [place] [address] Dr. Alesia Meyers MANUAL DIFF REQ NO Normal [facility] Comment on above: Performed By: #### T SH, CMP, LDH #### [facility] [address] [place] [address] Dr. Alesia Meyers MCH (RBC) [Entitic mass] 28.4 pg Normal 26.7-34.0 [facility] Comment on above: Performed By: #### T SH, CMP, LDH #### [facility] [address] [place] [address] Dr. Alesia Meyers MCHC (RBC) [Mass/Vol] 34.9 g/dL Normal 29.9-35.2 [facility] Comment on above: Performed By: #### T SH, CMP, LDH #### [facility] [address] [place] [address] Dr. Alesia Meyers MCV (RBC) [Entitic vol] 81.5 fL Normal 81.0-99.0 [facility] Comment on above: Performed By: #### T SH, CMP, LDH #### [facility] [address] [place] [address] Dr. Alesia Meyers MONO # 0.3 103/ul Normal 0.3-0.8 [facility] Comment on above: Performed By: #### T SH, CMP, LDH #### [facility] [address] [place] [address] Dr. Alesia Meyers Monocytes/100 WBC (Bld) 4.9 % Normal 1.7-12.0 [facility] Comment on above: Performed By: #### T SH, CMP, LDH #### [facility] [address] [place] [address] Dr. Alesia Meyers NEUT # 4.4 103/ul Normal 1.4-6.5 [facility] Comment on above: Performed By: #### T SH, CMP, LDH #### [facility] [address] [place] [address] Dr. Alesia Meyers Neutrophils/100 WBC (Bld) 64.8 % Normal 43.0-75.0 [facility] Comment on above: Performed By: #### T SH, CMP, LDH #### [facility] [address] [place] [address] Dr. Alesia Meyers Platelet mean volume (Bld) [Entitic vol] 8.8 fL Critically low 9.5-13.5 [facility] Comment on above: Performed By: #### T SH, CMP, LDH #### [facility] [address] [address] [address] Alesia Meyers PLT 214 103/ul Normal 150-450 [facility] Comment on above: Performed By: #### T SH, CMP, LDH #### [facility] [address] [place] [address] Dr. Alesia Meyers RBC 4.96 106/ul Normal 4.20-5.40 [facility] Comment on above: Performed By: #### T SH, CMP, LDH #### [facility] [address] [place] [address] Dr. Alesia Meyers WBC 6.8 103/ul Normal 4.0-11.0 [facility] Comment on above: Performed By: #### T SH, CMP, LDH #### [facility] [address] [place] [address] Dr. Alesia Meyesr FREE T4on 07-21-2022 Free T4 [Mass/Vol] 1.06 ng/dL Normal 0.76-1.46 [facility] Comment on above: Performed By: #### T SH, CMP, LDH #### [facility] [address] [place] [address] Dr. Alesia Meyers LDHon 07-21-2022 LDH 243 U/L Critically high 81-234 [facility] Comment on above: Performed By: #### T SH, CMP, LDH #### [facility] [address] [place] [address] Dr. Alesia Meyers LIPASEon 07-21-2022 Lipase [Catalytic activity/Vol] 73.0 U/L Normal 73.0-393.0 [facility] Comment on above: Performed By: #### T SH, CMP, LDH #### [facility] [address] [place] [address] Dr. Alesia Meyers LIVER PROFILEon 07-21-2022 Albumin [Mass/Vol] 3.5 g/dL Normal 3.4-5.0 [facility] Comment on above: Performed By: #### T SH, CMP, LDH #### [facility] [address] [address] [address] Alesia Meyers Albumin/Globulin [Mass ratio] 0.9 {ratio} Normal [facility] Comment on above: Performed By: #### T SH, CMP, LDH #### [facility] [address] [address] [address] Alesia Meyers ALP [Catalytic activity/Vol] 130 U/L Critically high 46-116 [facility] Comment on above: Performed By: #### T SH, CMP, LDH #### [facility] [address] [address] [address] Alesia Meyers ALT [Catalytic activity/Vol] 35 U/L Normal 14-59 [facility] Comment on above: Performed By: #### T SH, CMP, LDH #### [facility] [address] [address] [address] Alesia Meyers AST [Catalytic activity/Vol] 37 U/L Normal 15-37 [facility] Comment on above: Performed By: #### T SH, CMP, LDH #### [facility] [address] [address] [address] Alesia Meyers BILI, CONJUGATED 0.1 mg/dL Normal 0.0-0.2 [facility] Comment on above: Performed By: #### T SH, CMP, LDH #### [facility] [address] [address] [address] Alesia Meyers Bilirubin [Mass/Vol] 0.4 mg/dL Normal 0.2-1.0 [facility] Comment on above: Performed By: #### T SH, CMP, LDH #### [facility] [address] [address] [address] Alesia Meyers Globulin (S) [Mass/Vol] 3.8 g/dL Normal [facility] Comment on above: Performed By: #### T SH, CMP, LDH #### [facility] [address] [address] [address] Alesia Meyers Protein [Mass/Vol] 7.3 g/dL Normal 6.4-8.2 [facility] Comment on above: Performed By: #### T SH, CMP, LDH #### [facility] [address] [place] [address] Dr. Alesia Meyers PROF CHEM 8 (BAS METB)on Anion gap [Moles/Vol] 12.1 mmol/L Normal [facility] Comment on above: Performed By: #### T SH, CMP, LDH #### [facility] [address] [place] [address] Dr. Alesia Meyers Calcium [Mass/Vol] 9.2 mg/dL Normal 8.5-10.1 [facility] Comment on above: Performed By: #### T SH, CMP, LDH #### [facility] [address] [place] [address] Dr. Alesia Meyers Chloride [Moles/Vol] 102 mmol/L Normal 98-107 [facility] Comment on above: Performed By: #### T SH, CMP, LDH #### [facility] [address] [place] [address] Dr. Alesia Meyers CO2 [Moles/Vol] 30.5 mmol/L Normal 21.0-32.0 [facility] Comment on above: Performed By: #### T SH, CMP, LDH #### [facility] [address] [place] [address] Dr. Alesia Meyers Creatinine [Mass/Vol] 0.87 mg/dL Normal 0.55-1.02 [facility] Comment on above: Performed By: #### T SH, CMP, LDH #### [facility] [address] [place] [address] Dr. Alesia Meyers EGFR-AF [place] >60 Normal >=60 [facility] Comment on above: Performed By: #### T SH, CMP, LDH #### [facility] [address] [place] [address] Dr. Alesia Meyers EGFR-NON AF [place] >60 Normal >=60 [facility] Comment on above: Performed By: #### T SH, CMP, LDH #### [facility] [address] [place] [address] Dr. Alesia Meyers Glucose [Mass/Vol] 178 mg/dL Critically high 74-106 [facility] Comment on above: Performed By: #### T SH, CMP, LDH #### [facility] [address] [place] [address] Dr. Alesia Meyers Potassium [Moles/Vol] 3.6 mmol/L Normal 3.5-5.1 [facility] Comment on above: Performed By: #### T SH, CMP, LDH #### [facility] [address] [place] [address] Dr. Alesia Meyers Sodium [Moles/Vol] 141 mmol/L Normal 136-145 [facility] Comment on above: Performed By: #### T SH, CMP, LDH #### [facility] [address] [place] [address] Dr. Alesia Meyers Urea nitrogen [Mass/Vol] 16.0 mg/dL Normal 7.0-18.0 [facility] Comment on above: Performed By: #### T SH, CMP, LDH #### [facility] [address] [place] [address] Dr. Alesia Meyers Urea nitrogen/Creatinine [Mass ratio] 18.4 mg/mg Normal [facility] Comment on above: Performed By: #### T SH, CMP, LDH #### [facility] [address] [place] [address] Dr. Alesia Meyers TSHon 07-21-2022 TSH 2.383 uIU/mL Normal 0.358-3.74 0 [facility] Comment on above: Performed By: #### T SH, CMP, LDH #### [facility] [address] [place] [address] Dr. Alesia Meyers ACTH, PLASMAon 06-21-2022 ACTH, Plasma 30.4 pg/mL Normal 7.2-63.3 [facility] Comment on above: Result Comment: ACTH reference interval for samples collected between 7 and 10 AM. Performed By: #### T SH, CMP, LDH #### [facility] [address] [place] [address] Dr. Alesia Meyers CORTISOLon 06-21-2022 Cortisol 16.9 ug/dL Normal [facility] Comment on above: Result Comment: Melvin isol AM 6.2 - 19.4 Cortisol PM 2.3 - 11.9 Performed By: #### C ORTISO #### [facility] [address] [place] [address] Dr. Alesia Meyers CBC AUTO DIFFon 06-20-2022 BASO # 0.0 103/ul Normal 0.0-0.1 [facility] Comment on above: Performed By: #### T SH, CMP, LDH #### [facility] [address] [place] [address] Dr. Alesia Meyers Basophils/100 WBC (Bld) 0.5 % Normal 0.2-2.0 [facility] Comment on above: Performed By: #### T SH, CMP, LDH #### [facility] [address] [place] [address] Dr. Alesia Meyers EO # 0.1 103/ul Normal 0.0-0.7 [facility] Comment on above: Performed By: #### T SH, CMP, LDH #### [facility] [address] [place] [address] Dr. Alesia Meyers Eosinophils/100 WBC (Bld) 2.1 % Normal 0.9-7.0 [facility] Comment on above: Performed By: #### T SH, CMP, LDH #### [facility] [address] [place] [address] Dr. Alesia Meyers Erythrocyte distribution width (RBC) [Ratio] 13.3 % Normal 11.0-15.0 [facility] Comment on above: Performed By: #### T SH, CMP, LDH #### [facility] [address] [place] [address] Dr. Alesia Meyers Hematocrit (Bld) [Volume fraction] 40.2 % Normal 36.0-48.0 [facility] Comment on above: Performed By: #### T SH, CMP, LDH #### [facility] [address] [place] [address] Dr. Alesia Meyers Hemoglobin (Bld) [Mass/Vol] 13.5 g/dL Normal 12.0-16.0 [facility] Comment on above: Performed By: #### T SH, CMP, LDH #### [facility] [address] [address] [address] Alesia Meyers IG # 0.02 10e3/ul Normal 0.00-0.03 [facility] Comment on above: Performed By: #### T SH, CMP, LDH #### [facility] [address] [address] [address] Alesia Meyers IG % 0.3 % Normal 0.0-0.5 [facility] Comment on above: Performed By: #### T SH, CMP, LDH #### [facility] [address] [address] [address] Alesia Meyers LYMPH # 2.3 103/ul Normal 1.2-3.8 [facility] Comment on above: Performed By: #### T SH, CMP, LDH #### [facility] [address] [address] [address] Alesia Meyers Lymphocytes/100 WBC (Bld) 35.0 % Normal 20.5-60.0 [facility] Comment on above: Performed By: #### T SH, CMP, LDH #### [facility] [address] [address] [address] Alesia Meyers MANUAL DIFF REQ NO Normal [facility] Comment on above: Performed By: #### T SH, CMP, LDH #### [facility] [address] [address] [address] Alesia Meyers MCH (RBC) [Entitic mass] 29.3 pg Normal 26.7-34.0 [facility] Comment on above: Performed By: #### T SH, CMP, LDH #### [facility] [address] [address] [address] Alesia Meyers MCHC (RBC) [Mass/Vol] 33.6 g/dL Normal 29.9-35.2 [facility] Comment on above: Performed By: #### T SH, CMP, LDH #### [facility] [address] [address] [address] Alesia Meyers MCV (RBC) [Entitic vol] 87.2 fL Normal 81.0-99.0 [facility] Comment on above: Performed By: #### T SH, CMP, LDH #### [facility] [address] [place] [address] Dr. Alesia Meyers MONO # 0.6 103/ul Normal 0.3-0.8 [facility] Comment on above: Performed By: #### T SH, CMP, LDH #### [facility] [address] [place] [address] Dr. Alesia Meyers Monocytes/100 WBC (Bld) 8.8 % Normal 1.7-12.0 [facility] Comment on above: Performed By: #### T SH, CMP, LDH #### [facility] [address] [place] [address] Dr. Alesia Meyers NEUT # 3.5 103/ul Normal 1.4-6.5 [facility] Comment on above: Performed By: #### T SH, CMP, LDH #### [facility] [address] [place] [address] Dr. Alesia Meyers Neutrophils/100 WBC (Bld) 53.3 % Normal 43.0-75.0 [facility] Comment on above: Performed By: #### T SH, CMP, LDH #### [facility] [address] [place] [address] Dr. Alesia Meyers Platelet mean volume (Bld) [Entitic vol] 9.0 fL Critically low 9.5-13.5 [facility] Comment on above: Performed By: #### T SH, CMP, LDH #### [facility] [address] [place] [address] Dr. Alesia Meyers PLT 230 103/ul Normal 150-450 [facility] Comment on above: Performed By: #### T SH, CMP, LDH #### [facility] [address] [place] [address] Dr. Alesia Meyers RBC 4.61 106/ul Normal 4.20-5.40 [facility] Comment on above: Performed By: #### T SH, CMP, LDH #### [facility] [address] [place] [address] Dr. Alesia Meyers WBC 6.6 103/ul Normal 4.0-11.0 [facility] Comment on above: Performed By: #### T SH, CMP, LDH #### [facility] [address] [address] [address] Alesia Meyers FREE T4on 06-20-2022 Free T4 [Mass/Vol] 1.15 ng/dL Normal 0.76-1.46 [facility] Comment on above: Performed By: #### T SH, CMP, LDH #### [facility] [address] [place] [address] Dr. Alesia Meyers LDHon 06-20-2022 LDH 224 U/L Normal 81-234 [facility] Comment on above: Performed By: #### T SH, CMP, LDH #### [facility] [address] [place] [address] Dr. Alesia Meyers LIPASEon 06-20-2022 Lipase [Catalytic activity/Vol] 78.0 U/L Normal 73.0-393.0 [facility] Comment on above: Performed By: #### T SH, CMP, LDH #### [facility] [address] [place] [address] Dr. Alesia Meyers LIPID PROFILEon 06-20-2022 CHOL-HDL RATIO NORM SEE BELOW Normal [facility] Comment on above: Result Comment: 3.3 - 4.4 LOW RISK 4.4 - 7.1 AVERAGE RISK 7.1 - 11.0 MODERATE RISK >11.0 HIGH RISK Performed By: #### T SH, CMP, LDH #### [facility] [address] [place] [address] Dr. Alesia Meyers Cholesterol [Mass/Vol] 153 mg/dL Normal <=200 [facility] Comment on above: Performed By: #### T SH, CMP, LDH #### [facility] [address] [place] [address] Dr. Alesia Meyers Cholesterol in HDL [Mass/Vol] 80 mg/dL Critically high 40-60 [facility] Comment on above: Performed By: #### T SH, CMP, LDH #### [facility] [address] [address] [address] Alesia Meyers Cholesterol in LDL [Mass/Vol] 52.8 mg/dL Normal [facility] Comment on above: Performed By: #### T SH, CMP, LDH #### [facility] [address] [place] [address] Dr. Alesia Meyers Cholesterol.total/Chol esterol in HDL [Mass ratio] 1.9 {ratio} Normal [facility] Comment on above: Performed By: #### T SH, CMP, LDH #### [facility] [address] [address] [address] Alesia Meyers HDL NORMAL > or = 60 mg/dl - LO W CARDIOVASCULAR RISK <40 mg/dl - HIGH CARDIOVASCULAR RISK Normal [facility] Comment on above: Performed By: #### T SH, CMP, LDH #### [facility] [address] [place] [address] Dr. Alesia Meyers LDL CALC NORMAL SEE BELOW Normal [facility] Comment on above: Result Comment: <100 mg/dl OPTIMAL 100 - 129 mg/dl NEAR OR ABOVE OPTIMAL 130 - 159 mg/dl BORDERLINE HIGH 160 - 189 mg/dl HIGH >190 mg/dl VERY HIGH Performed By: #### T SH, CMP, LDH #### [facility] [address] [address] [address] Alesia Meyers Triglyceride [Mass/Vol] 101 mg/dL Normal <=150 [facility] Comment on above: Performed By: #### T SH, CMP, LDH #### [facility] [address] [place] [address] Dr. Alesia Meyers VLDL CALC 20.2 mg/dL Normal [facility] Comment on above: Performed By: #### T SH, CMP, LDH #### [facility] [address] [address] [address] Alesia Meyers LIVER PROFILEon 06-20-2022 Albumin [Mass/Vol] 3.5 g/dL Normal 3.4-5.0 [facility] Comment on above: Performed By: #### T SH, CMP, LDH #### [facility] [address] [place] [address] Dr. Alesia Meyers Albumin/Globulin [Mass ratio] 0.9 {ratio} Normal [facility] Comment on above: Performed By: #### T SH, CMP, LDH #### [facility] [address] [address] [address] Alesia Meyers ALP [Catalytic activity/Vol] 109 U/L Normal 46-116 [facility] Comment on above: Performed By: #### T SH, CMP, LDH #### [facility] [address] [address] [address] Alesia Meyers ALT [Catalytic activity/Vol] 39 U/L Normal 14-59 [facility] Comment on above: Performed By: #### T SH, CMP, LDH #### [facility] [address] [place] [address] Dr. Alesia Meyers AST [Catalytic activity/Vol] 34 U/L Normal 15-37 [facility] Comment on above: Performed By: #### T SH, CMP, LDH #### [facility] [address] [address] [address] Alesia Meyers BILI, CONJUGATED 0.1 mg/dL Normal 0.0-0.2 [facility] Comment on above: Performed By: #### T SH, CMP, LDH #### [facility] [address] [place] [address] Dr. Alesia Meyers Bilirubin [Mass/Vol] 0.4 mg/dL Normal 0.2-1.0 [facility] Comment on above: Performed By: #### T SH, CMP, LDH #### [facility] [address] [place] [address] Dr. Alesia Meyers Globulin (S) [Mass/Vol] 3.7 g/dL Normal [facility] Comment on above: Performed By: #### T SH, CMP, LDH #### [facility] [address] [place] [address] Dr. Alesia Meyers Protein [Mass/Vol] 7.2 g/dL Normal 6.4-8.2 [facility] Comment on above: Performed By: #### T SH, CMP, LDH #### [facility] [address] [address] [address] Alesia Meyers PROF CHEM 8 (BAS METB)on Anion gap [Moles/Vol] 11.4 mmol/L Normal [facility] Comment on above: Performed By: #### T SH, CMP, LDH #### [facility] [address] [place] [address] Dr. Alesia Meyers Calcium [Mass/Vol] 9.1 mg/dL Normal 8.5-10.1 [facility] Comment on above: Performed By: #### T SH, CMP, LDH #### [facility] [address] [place] [address] Dr. Alesia Meyers Chloride [Moles/Vol] 103 mmol/L Normal 98-107 [facility] Comment on above: Performed By: #### T SH, CMP, LDH #### [facility] [address] [place] [address] Dr. Alesia Meyers CO2 [Moles/Vol] 31.2 mmol/L Normal 21.0-32.0 [facility] Comment on above: Performed By: #### T SH, CMP, LDH #### [facility] [address] [place] [address] Dr. Alesia Meyers Creatinine [Mass/Vol] 0.90 mg/dL Normal 0.55-1.02 [facility] Comment on above: Performed By: #### T SH, CMP, LDH #### [facility] [address] [place] [address] Dr. Alesia Meyers EGFR-AF [place] >60 Normal >=60 [facility] Comment on above: Performed By: #### T SH, CMP, LDH #### [facility] [address] [place] [address] Dr. Alesia Meyers EGFR-NON AF [place] >60 Normal >=60 [facility] Comment on above: Performed By: #### T SH, CMP, LDH #### [facility] [address] [place] [address] Dr. Alesia Meyers Glucose [Mass/Vol] 105 mg/dL Normal 74-106 [facility] Comment on above: Performed By: #### T SH, CMP, LDH #### [facility] [address] [place] [address] Dr. Alesia Meyers Potassium [Moles/Vol] 3.6 mmol/L Normal 3.5-5.1 [facility] Comment on above: Performed By: #### T SH, CMP, LDH #### [facility] [address] [place] [address] Dr. Alesia Meyers Sodium [Moles/Vol] 142 mmol/L Normal 136-145 [facility] Comment on above: Performed By: #### T SH, CMP, LDH #### [facility] [address] [place] [address] Dr. Alesia Meyers Urea nitrogen [Mass/Vol] 22.0 mg/dL Critically high 7.0-18.0 [facility] Comment on above: Performed By: #### T SH, CMP, LDH #### [facility] [address] [place] [address] Dr. Alesia Meyers Urea nitrogen/Creatinine [Mass ratio] 24.4 mg/mg Normal [facility] Comment on above: Performed By: #### T SH, CMP, LDH #### [facility] [address] [place] [address] Dr. Alesia Meyers TSHon 06-20-2022 TSH 3.302 uIU/mL Normal 0.358-3.74 0 [facility] Comment on above: Performed By: #### T SH, CMP, LDH #### [facility] [address] [place] [address] Dr. Alesia Meyers ACTH, PLASMAon 05-31-2022 ACTH, Plasma 28.5 pg/mL Normal 7.2-63.3 [facility] Comment on above: Result Comment: ACTH reference interval for samples collected between 7 and 10 AM. Performed By: #### T SH, CMP, LDH #### [facility] [address] [place] [address] Dr. Alesia Meyers CORTISOLon 05-31-2022 Cortisol 17.2 ug/dL Normal [facility] Comment on above: Result Comment: Melvin isol AM 6.2 - 19.4 Cortisol PM 2.3 - 11.9 Performed By: #### T SH, CMP, LDH #### [facility] [address] [place] [address] Dr. Alesia Meyers CBC AUTO DIFFon 05-30-2022 BASO # 0.0 103/ul Normal 0.0-0.1 [facility] Comment on above: Performed By: #### T SH, CMP, LDH #### [facility] [address] [place] [address] Dr. Alesia Meyers Basophils/100 WBC (Bld) 0.4 % Normal 0.2-2.0 [facility] Comment on above: Performed By: #### T SH, CMP, LDH #### [facility] [address] [place] [address] Dr. Alesia Meyers EO # 0.1 103/ul Normal 0.0-0.7 [facility] Comment on above: Performed By: #### T SH, CMP, LDH #### [facility] [address] [place] [address] Dr. Alesia Meyers Eosinophils/100 WBC (Bld) 2.1 % Normal 0.9-7.0 [facility] Comment on above: Performed By: #### T SH, CMP, LDH #### [facility] [address] [place] [address] Dr. Alesia Meyers Erythrocyte distribution width (RBC) [Ratio] 12.9 % Normal 11.0-15.0 [facility] Comment on above: Performed By: #### T SH, CMP, LDH #### [facility] [address] [place] [address] Dr. Alesia Meyers Hematocrit (Bld) [Volume fraction] 41.0 % Normal 36.0-48.0 [facility] Comment on above: Performed By: #### T SH, CMP, LDH #### [facility] [address] [place] [address] Dr. Alesia Meyers Hemoglobin (Bld) [Mass/Vol] 13.5 g/dL Normal 12.0-16.0 [facility] Comment on above: Performed By: #### T SH, CMP, LDH #### [facility] [address] [address] [address] Alesia Meyers IG # 0.02 10e3/ul Normal 0.00-0.03 [facility] Comment on above: Performed By: #### T SH, CMP, LDH #### [facility] [address] [address] [address] Alesia Meyers IG % 0.3 % Normal 0.0-0.5 [facility] Comment on above: Performed By: #### T SH, CMP, LDH #### [facility] [address] [address] [address] Alesia Meyers LYMPH # 2.1 103/ul Normal 1.2-3.8 [facility] Comment on above: Performed By: #### T SH, CMP, LDH #### [facility] [address] [place] [address] Dr. Alesia Meyers Lymphocytes/100 WBC (Bld) 30.5 % Normal 20.5-60.0 [facility] Comment on above: Performed By: #### T SH, CMP, LDH #### [facility] [address] [place] [address] Dr. Alesia Meyers MANUAL DIFF REQ NO Normal [facility] Comment on above: Performed By: #### T SH, CMP, LDH #### [facility] [address] [place] [address] Dr. Alesia Meyers MCH (RBC) [Entitic mass] 28.6 pg Normal 26.7-34.0 [facility] Comment on above: Performed By: #### T SH, CMP, LDH #### [facility] [address] [place] [address] Dr. Alesia Meyers MCHC (RBC) [Mass/Vol] 32.9 g/dL Normal 29.9-35.2 [facility] Comment on above: Performed By: #### T SH, CMP, LDH #### [facility] [address] [place] [address] Dr. Alesia Meyers MCV (RBC) [Entitic vol] 86.9 fL Normal 81.0-99.0 [facility] Comment on above: Performed By: #### T SH, CMP, LDH #### [facility] [address] [address] [address] Alesia Meyers MONO # 0.5 103/ul Normal 0.3-0.8 [facility] Comment on above: Performed By: #### T SH, CMP, LDH #### [facility] [address] [place] [address] Dr. Alesia Meyers Monocytes/100 WBC (Bld) 7.8 % Normal 1.7-12.0 [facility] Comment on above: Performed By: #### T SH, CMP, LDH #### [facility] [address] [place] [address] Dr. Alesia Meyers NEUT # 4.0 103/ul Normal 1.4-6.5 [facility] Comment on above: Performed By: #### T SH, CMP, LDH #### [facility] [address] [place] [address] Dr. Alesia Meyers Neutrophils/100 WBC (Bld) 58.9 % Normal 43.0-75.0 [facility] Comment on above: Performed By: #### T SH, CMP, LDH #### [facility] [address] [place] [address] Dr. Alesia Meyers Platelet mean volume (Bld) [Entitic vol] 9.0 fL Critically low 9.5-13.5 [facility] Comment on above: Performed By: #### T SH, CMP, LDH #### [facility] [address] [place] [address] Dr. Alesia Meyers PLT 224 103/ul Normal 150-450 [facility] Comment on above: Performed By: #### T SH, CMP, LDH #### [facility] [address] [place] [address] Dr. Alesia Meyers RBC 4.72 106/ul Normal 4.20-5.40 [facility] Comment on above: Performed By: #### T SH, CMP, LDH #### [facility] [address] [place] [address] Dr. Alesia Meyers WBC 6.8 103/ul Normal 4.0-11.0 [facility] Comment on above: Performed By: #### T SH, CMP, LDH #### [facility] [address] [place] [address] Dr. Alesia Meyers FREE T4on 05-30-2022 Free T4 [Mass/Vol] 1.19 ng/dL Normal 0.76-1.46 [facility] Comment on above: Performed By: #### T SH, CMP, LDH #### [facility] [address] [place] [address] Dr. Alesia Meyers LDHon 05-30-2022 LDH 231 U/L Normal 81-234 [facility] Comment on above: Performed By: #### F T4 #### [facility] [address] [place] [address] Dr. Alesia Meyers LIPASEon 05-30-2022 Lipase [Catalytic activity/Vol] 76.0 U/L Normal 73.0-393.0 [facility] Comment on above: Performed By: #### F T4 #### [facility] [address] [place] [address] Dr. Alesia Meyers LIVER PROFILEon 05-30-2022 Albumin [Mass/Vol] 3.5 g/dL Normal 3.4-5.0 [facility] Comment on above: Performed By: #### F T4 #### [facility] [address] [place] [address] Dr. Alesia Meyers Albumin/Globulin [Mass ratio] 0.9 {ratio} Normal [facility] Comment on above: Performed By: #### F T4 #### [facility] [address] [place] [address] Dr. Alesia Meyers ALP [Catalytic activity/Vol] 128 U/L Critically high 46-116 [facility] Comment on above: Performed By: #### F T4 #### [facility] [address] [place] [address] Dr. Alesia Meyers ALT [Catalytic activity/Vol] 35 U/L Normal 14-59 [facility] Comment on above: Performed By: #### F T4 #### [facility] [address] [place] [address] Dr. Alesia Meyers AST [Catalytic activity/Vol] 25 U/L Normal 15-37 [facility] Comment on above: Performed By: #### F T4 #### [facility] [address] [place] [address] Dr. Alesia Meyers BILI, CONJUGATED 0.1 mg/dL Normal 0.0-0.2 [facility] Comment on above: Performed By: #### F T4 #### [facility] [address] [place] [address] Dr. Alesia Meyers Bilirubin [Mass/Vol] 0.4 mg/dL Normal 0.2-1.0 [facility] Comment on above: Performed By: #### F T4 #### [facility] [address] [place] [address] Dr. Alesia Meyers Globulin (S) [Mass/Vol] 3.7 g/dL Normal [facility] Comment on above: Performed By: #### F T4 #### [facility] [address] [place] [address] Dr. Alesia Meyers Protein [Mass/Vol] 7.2 g/dL Normal 6.4-8.2 [facility] Comment on above: Performed By: #### F T4 #### [facility] [address] [place] [address] Dr. Alesia Meyers PROF CHEM 8 (BAS METB)on Anion gap [Moles/Vol] 7.3 mmol/L Normal [facility] Comment on above: Performed By: #### F T4 #### [facility] [address] [place] [address] Dr. Alesia Meyers Calcium [Mass/Vol] 9.0 mg/dL Normal 8.5-10.1 [facility] Comment on above: Performed By: #### F T4 #### [facility] [address] [place] [address] Dr. Alesia Meyers Chloride [Moles/Vol] 102 mmol/L Normal 98-107 [facility] Comment on above: Performed By: #### F T4 #### [facility] [address] [place] [address] Dr. Alesia Meyers CO2 [Moles/Vol] 32.3 mmol/L Critically high 21.0-32.0 [facility] Comment on above: Performed By: #### F T4 #### [facility] [address] [address] [address] Alesia Meyers Creatinine [Mass/Vol] 0.94 mg/dL Normal 0.55-1.02 [facility] Comment on above: Performed By: #### F T4 #### [facility] [address] [address] [address] Alesia Meyers EGFR-AF [place] >60 Normal >=60 [facility] Comment on above: Performed By: #### F T4 #### [facility] [address] [address] [address] Alesia Meyers EGFR-NON AF [place] 58 mL/min/1.73m2 Critically low >=60 [facility] Comment on above: Performed By: #### F T4 #### [facility] [address] [address] [address] Alesia Meyers Glucose [Mass/Vol] 108 mg/dL Critically high 74-106 [facility] Comment on above: Performed By: #### F T4 #### [facility] [address] [address] [address] Alesia Meyers Potassium [Moles/Vol] 3.6 mmol/L Normal 3.5-5.1 [facility] Comment on above: Performed By: #### F T4 #### [facility] [address] [address] [address] Alesia Meyers Sodium [Moles/Vol] 138 mmol/L Normal 136-145 [facility] Comment on above: Performed By: #### F T4 #### [facility] [address] [address] [address] Alesia Meyers Urea nitrogen [Mass/Vol] 24.0 mg/dL Critically high 7.0-18.0 [facility] Comment on above: Performed By: #### F T4 #### [facility] [address] [address] [address] Alesia Meyers Urea nitrogen/Creatinine [Mass ratio] 25.5 mg/mg Normal [facility] Comment on above: Performed By: #### F T4 #### [facility] [address] [address] [address] Alesia Meyers TSHon 05-30-2022 TSH 2.605 uIU/mL Normal 0.358-3.74 0 [facility] Comment on above: Performed By: #### F T4 #### [facility] [address] [address] [address] Alesia Meyers ACTH, PLASMAon 05-14-2022 ACTH, Plasma 17.0 pg/mL Normal 7.2-63.3 [facility] Comment on above: Result Comment: ACTH reference interval for samples collected between 7 and 10 AM. Performed By: #### A CTHP #### [facility] [address] [place] [address] Dr. Alesia Meyers ACTH, PLASMAon 05-12-2022 ACTH, Plasma WRORD Normal [facility] Comment on above: Result Comment: Test not performed. The required specimen for the test ordered was not received. received refrigerate plasma edta contacted Sheyla at your facility on 05-12-2022 ACTH reference interval for samples collected between 7 and 10 AM. Performed By: #### F T4 #### [facility] [address] [place] [address] Dr. Alesia Meyers Albumin [Mass/volume] in Ser um or PlasmaOrdered By: Sly Benson on 05-12-2022 Albumin [Mass/Vol] 3.5 g/dL 3.2-5.5 [facility] Direct bilirubin measurement Ordered By: Sly Benson on 05-12-2022 Bilirubin.direct [Mass/Vol] mg/dL 0.0-0.4 [facility] Globulin Calc (S) [Mass/Vol] Ordered By: Sly Benson on 05-12-2022 Globulin (S) [Mass/Vol] 3.0 g/dL [facility] Laboratory - Chemistry and C hemistry - challengeOrdered By: Sly Benson on 05-12-2022 Lipase [Catalytic activity/Vol] 26.0 U/L [facility] Lactate dehydrogenase measur ement (enzymatic activity/volume)Ordered By: Sly Benson on 05-12-2022 LDH (Unsp spec) [Catalytic activity/Vol] 199 U/L 45-190 [facility] No Panel InformationOrdered By: Sly Benson on 05-12-2022 Adrenocorticotropic Hormone 243.0 pg/mL 7.2-63.3 [facility] Comment on above: ACTH reference inter jamel for samples collected between 7 and10 AM.Performed at: [facility] [id number] Director: Coleman Lacy PhD, Phone: [phone] Protein [Mass/volume] in Ser um or PlasmaOrdered By: Sly Benson on 05-12-2022 Protein [Mass/Vol] 6.5 g/dL 6.1-7.9 [facility] Random cortisol measurementO rdered By: Sly Benson on 05-12-2022 Cortisol [Mass/Vol] 14.6 ug/dL [facility] Comment on above: Reference range: AM 6 - 24 ug/dl PM <10 ug/dl Serum or plasma alanine castro otransferase measurement without P-5'-P (enzymatic activiOrdered By: Sly Benson on 05-12-2022 ALT No additional P-5'-P [Catalytic activity/Vol] 31 U/L 10-60 [facility] Serum or plasma albumin/glob ulin mass ratioOrdered By: Sly Benson on 05-12-2022 Albumin/Globulin [Mass ratio] 1.2 {ratio} [facility] Serum or plasma alkaline halle sphatase measurement (enzymatic activity/volume)Ordered By: Sly Benson on 05-12-2022 ALP [Catalytic activity/Vol] 112 U/L 32-92 [facility] Serum or plasma aspartate am inotransferase measurement (enzymatic activity/volume)Ordered By: Sly Benson on 05-12-2022 AST [Catalytic activity/Vol] 33 U/L 10-42 [facility] Serum or plasma non-glucuron idated bilirubin measurement (mass/volume)Ordered By: Sly Benson on 05-12-2022 Bilirubin.indirect [Mass/Vol] TNP [facility] Comment on above: Test not performed Serum or plasma total biliru bin measurement (mass/volume)Ordered By: Sly Benson on 05-12-2022 Bilirubin [Mass/Vol] 0.8 mg/dL 0.3-1.2 [facility] Thyroxine (T4) free [Mass/vo lume] in Serum or PlasmaOrdered By: Sly Benson on 05-12-2022 Free T4 [Mass/Vol] 1.17 ng/dL 0.61-1.12 [facility] CORTISOLon 05-11-2022 Cortisol 15.4 ug/dL Normal [facility] Comment on above: Result Comment: Melvin isol AM 6.2 - 19.4 Cortisol PM 2.3 - 11.9 Performed By: #### T SH, CMP, LDH #### [facility] [address] [place] [address] Dr. Alesia Meyesr CBC AUTO DIFFon 05-10-2022 BASO # 0.0 103/ul Normal 0.0-0.1 [facility] Comment on above: Performed By: #### C BC #### [facility] [address] [address] [address] Alesia Meyers Basophils/100 WBC (Bld) 0.3 % Normal 0.2-2.0 [facility] Comment on above: Performed By: #### C BC #### [facility] [address] [address] [address] Alesia Meyers EO # 0.2 103/ul Normal 0.0-0.7 [facility] Comment on above: Performed By: #### C BC #### [facility] [address] [address] [address] Alesia Meyers Eosinophils/100 WBC (Bld) 2.5 % Normal 0.9-7.0 [facility] Comment on above: Performed By: #### C BC #### [facility] [address] [place] [address] Dr. Alesia Meyers Erythrocyte distribution width (RBC) [Ratio] 13.2 % Normal 11.0-15.0 [facility] Comment on above: Performed By: #### C BC #### [facility] [address] [place] [address] Dr. Alesia Meyers Hematocrit (Bld) [Volume fraction] 39.1 % Normal 36.0-48.0 [facility] Comment on above: Performed By: #### C BC #### [facility] [address] [place] [address] Dr. Alesia Meyers Hemoglobin (Bld) [Mass/Vol] 12.9 g/dL Normal 12.0-16.0 [facility] Comment on above: Performed By: #### C BC #### [facility] [address] [place] [address] Dr. Alesia Meyers IG # 0.01 10e3/ul Normal 0.00-0.03 [facility] Comment on above: Performed By: #### C BC #### [facility] [address] [place] [address] Dr. Alesia Meyers IG % 0.2 % Normal 0.0-0.5 [facility] Comment on above: Performed By: #### C BC #### [facility] [address] [place] [address] Dr. Alesia Meyers LYMPH # 1.9 103/ul Normal 1.2-3.8 [facility] Comment on above: Performed By: #### C BC #### [facility] [address] [place] [address] Dr. Alesia Meyers Lymphocytes/100 WBC (Bld) 32.2 % Normal 20.5-60.0 [facility] Comment on above: Performed By: #### C BC #### [facility] [address] [place] [address] Dr. Alesia Meyers MANUAL DIFF REQ NO Normal [facility] Comment on above: Performed By: #### C BC #### [facility] [address] [place] [address] Dr. Alesia Meyers MCH (RBC) [Entitic mass] 29.0 pg Normal 26.7-34.0 [facility] Comment on above: Performed By: #### C BC #### [facility] [address] [place] [address] Dr. Alesia Meyers MCHC (RBC) [Mass/Vol] 33.0 g/dL Normal 29.9-35.2 [facility] Comment on above: Performed By: #### C BC #### [facility] [address] [place] [address] Dr. Alesia Meyers MCV (RBC) [Entitic vol] 87.9 fL Normal 81.0-99.0 [facility] Comment on above: Performed By: #### C BC #### [facility] [address] [place] [address] Dr. Alesia Meyers MONO # 0.5 103/ul Normal 0.3-0.8 [facility] Comment on above: Performed By: #### C BC #### [facility] [address] [place] [address] Dr. Alesia Meyers Monocytes/100 WBC (Bld) 8.5 % Normal 1.7-12.0 [facility] Comment on above: Performed By: #### C BC #### [facility] [address] [place] [address] Dr. Alesia Meyers NEUT # 3.3 103/ul Normal 1.4-6.5 [facility] Comment on above: Performed By: #### C BC #### [facility] [address] [place] [address] Dr. Alesia Meyers Neutrophils/100 WBC (Bld) 56.3 % Normal 43.0-75.0 [facility] Comment on above: Performed By: #### C BC #### [facility] [address] [place] [address] Dr. Alesia Meyers Platelet mean volume (Bld) [Entitic vol] 9.6 fL Normal 9.5-13.5 [facility] Comment on above: Performed By: #### C BC #### [facility] [address] [place] [address] Dr. Alesia Meyers PLT 210 103/ul Normal 150-450 [facility] Comment on above: Performed By: #### C BC #### [facility] [address] [place] [address] Dr. Alesia Meyers RBC 4.45 106/ul Normal 4.20-5.40 [facility] Comment on above: Performed By: #### C BC #### [facility] [address] [place] [address] Dr. Alesia Meyers WBC 5.9 103/ul Normal 4.0-11.0 [facility] Comment on above: Performed By: #### C BC #### [facility] [address] [address] [address] Alesia Meyers FREE T4on 05-10-2022 Free T4 [Mass/Vol] 1.19 ng/dL Normal 0.76-1.46 [facility] Comment on above: Performed By: #### F T4 #### [facility] [address] [place] [address] Dr. Alesia Meyers LDHon 05-10-2022 LDH 252 U/L Critically high 81-234 [facility] Comment on above: Performed By: #### T SH, CMP, LDH #### [facility] [address] [place] [address] Dr. Alesia Meyers LIPASEon 05-10-2022 Lipase [Catalytic activity/Vol] 70.0 U/L Critically low 73.0-393.0 [facility] Comment on above: Performed By: #### T SH, CMP, LDH #### [facility] [address] [place] [address] Dr. Alesia Meyers LIVER PROFILEon 05-10-2022 Albumin [Mass/Vol] 3.3 g/dL Critically low 3.4-5.0 [facility] Comment on above: Performed By: #### T SH, CMP, LDH #### [facility] [address] [place] [address] Dr. Alesia Meyers Albumin/Globulin [Mass ratio] 0.9 {ratio} Normal [facility] Comment on above: Performed By: #### T SH, CMP, LDH #### [facility] [address] [place] [address] Dr. Alesia Meyers ALP [Catalytic activity/Vol] 129 U/L Critically high 46-116 [facility] Comment on above: Performed By: #### T SH, CMP, LDH #### [facility] [address] [place] [address] Dr. Alesia Meyers ALT [Catalytic activity/Vol] 35 U/L Normal 14-59 [facility] Comment on above: Performed By: #### T SH, CMP, LDH #### [facility] [address] [place] [address] Dr. Alesia Meyers AST [Catalytic activity/Vol] 36 U/L Normal 15-37 [facility] Comment on above: Performed By: #### T SH, CMP, LDH #### [facility] [address] [place] [address] Dr. Alesia Meyers BILI, CONJUGATED 0.1 mg/dL Normal 0.0-0.2 [facility] Comment on above: Performed By: #### T SH, CMP, LDH #### [facility] [address] [place] [address] Dr. Alesia Meyers Bilirubin [Mass/Vol] 0.4 mg/dL Normal 0.2-1.0 [facility] Comment on above: Performed By: #### T SH, CMP, LDH #### [facility] [address] [place] [address] Dr. Aleisa Meyers Globulin (S) [Mass/Vol] 3.7 g/dL Normal [facility] Comment on above: Performed By: #### T SH, CMP, LDH #### [facility] [address] [place] [address] Dr. Alesia Meyers Protein [Mass/Vol] 7.0 g/dL Normal 6.4-8.2 [facility] Comment on above: Performed By: #### T SH, CMP, LDH #### [facility] [address] [place] [address] Dr. Alesia Meyers PROF CHEM 8 (BAS METB)on Anion gap [Moles/Vol] 11.7 mmol/L Normal [facility] Comment on above: Performed By: #### T SH, CMP, LDH #### [facility] [address] [place] [address] Dr. Alesia Meyers Calcium [Mass/Vol] 8.9 mg/dL Normal 8.5-10.1 [facility] Comment on above: Performed By: #### T SH, CMP, LDH #### [facility] [address] [address] [address] Alesia Meyers Chloride [Moles/Vol] 104 mmol/L Normal 98-107 [facility] Comment on above: Performed By: #### T SH, CMP, LDH #### [facility] [address] [address] [address] Alesia Meyers CO2 [Moles/Vol] 29.3 mmol/L Normal 21.0-32.0 [facility] Comment on above: Performed By: #### T SH, CMP, LDH #### [facility] [address] [address] [address] Alesia Meyers Creatinine [Mass/Vol] 0.84 mg/dL Normal 0.55-1.02 [facility] Comment on above: Performed By: #### T SH, CMP, LDH #### [facility] [address] [address] [address] Alesia Meyers EGFR-AF [place]LANDER >60 Normal >=60 [facility] Comment on above: Performed By: #### T SH, CMP, LDH #### [facility] [address] [address] [address] Alesia Meyers EGFR-NON AF [place]ER >60 Normal >=60 [facility] Comment on above: Performed By: #### T SH, CMP, LDH #### [facility] [address] [address] [address] Alesia Meyers Glucose [Mass/Vol] 109 mg/dL Critically high 74-106 [facility] Comment on above: Performed By: #### T SH, CMP, LDH #### [facility] [address] [address] [address] Alesia Meyers Potassium [Moles/Vol] 4.0 mmol/L Normal 3.5-5.1 [facility] Comment on above: Performed By: #### T SH, CMP, LDH #### [facility] [address] [address] [address] Alesia Meyers Sodium [Moles/Vol] 141 mmol/L Normal 136-145 [facility] Comment on above: Performed By: #### T SH, CMP, LDH #### [facility] [address] [address] [address] Alesia Meyers Urea nitrogen [Mass/Vol] 19.0 mg/dL Critically high 7.0-18.0 [facility] Comment on above: Performed By: #### T SH, CMP, LDH #### [facility] [address] [address] [address] Alesia Meyers Urea nitrogen/Creatinine [Mass ratio] 22.6 mg/mg Normal [facility] Comment on above: Performed By: #### T SH, CMP, LDH #### [facility] [address] [address] [address] Alesia Meyers TSHon 05-10-2022 TSH 3.114 uIU/mL Normal 0.358-3.74 0 [facility] Comment on above: Performed By: #### T SH, CMP, LDH #### [facility] [address] [address] [address] Alesia Meyers Activated partial thrombopla stin time (aPTT) in platelet poor plasma by coagulation aOrdered By: Sly Benson on 04-28-2022 aPTT Coag (PPP) [Time] 28.1 s 25.1-36.5 [facility] Albumin [Mass/volume] in Ser um or PlasmaOrdered By: Sly Benson on 04-28-2022 Albumin [Mass/Vol] 3.5 g/dL 3.2-5.5 [facility] Basophils Auto (Bld) [#/Vol] Ordered By: Sly Benson on 04-28-2022 Basophils (Bld) [#/Vol] 0.0 10*3/uL 0.0-0.2 [facility] Basophils/100 WBC Auto (Bld) Ordered By: Sly Benson on 04-28-2022 Basophils/100 WBC (Bld) 0.5 % . [facility] Creatinine and Glomerular fi ltration rate.predicted panel (S/P/Bld)Ordered By: Sly Benson on 04-28-2022 Creatinine [Mass/Vol] 0.84 mg/dL 0.44-1.03 [facility] Eosinophils Auto (Bld) [#/Vo l]Ordered By: Sly Benson on 04-28-2022 Eosinophils (Bld) [#/Vol] 0.1 10*3/uL 0.0-0.45 [facility] Eosinophils/100 WBC Auto (Bl d)Ordered By: Sly Benson on 04-28-2022 Eosinophils/100 WBC (Bld) 1.1 % . [facility] Erythrocyte distribution wid th Auto (RBC) [Ratio]Ordered By: Sly Benson on 04-28-2022 Erythrocyte distribution width (RBC) [Ratio] 14.1 % 11.9-15.3 [facility] Erythrocyte sedimentation ra te by Photometric methodOrdered By: Sly Benson on 04-28-2022 ESR Photometric method (Bld) [Velocity] 31 mm/hr 0-29 [facility] Estimated glomerular filtrat ion rate (GFR) non- AmericanOrdered By: Sly Benson on 04-28-2022 GFR/1.73 sq M.predicted among non-blacks MDRD (S/P/Bld) [Vol rate/Area] > 60 mL/Min [facility] Globulin Calc (S) [Mass/Vol] Ordered By: Sly Benson on 04-28-2022 Globulin (S) [Mass/Vol] 2.9 g/dL [facility] Hematocrit Auto (Bld) [Volum e fraction]Ordered By: Sly Benson on 04-28-2022 Hematocrit (Bld) [Volume fraction] 40.5 % 34.0-46.4 [facility] Hemoglobin [Mass/volume] in BloodOrdered By: Sly Benson on 04-28-2022 Hemoglobin (Bld) [Mass/Vol] 13.6 g/dL 11.8-15.4 [facility] Laboratory - CoagulationOrde red By: Sly Benson on 04-28-2022 PT Coag (PPP) [Time] 10.6 s 9.0-12.9 [facility] - Hematology and Cell countsOrdered By: Sly Benson on 04-28-2022 Nucleated RBC/100 WBC (Bld) [Ratio] 0.1 % 0-0.5 [facility] Leukocytes [#/volume] in Blo od by Automated countOrdered By: Sly Benson on 04-28-2022 WBC (Bld) [#/Vol] 6.9 10*3/uL 4.5-11.0 [facility] Lymphocytes Auto (Bld) [#/Vo l]Ordered By: Sly Benson on 04-28-2022 Lymphocytes (Bld) [#/Vol] 2.0 10*3/uL 1.00-4.8 [facility] Lymphocytes/100 WBC Auto (Bl d)Ordered By: Sly Benson on 04-28-2022 Lymphocytes/100 WBC (Bld) 28.3 % . [facility] MCH Auto (RBC) [Entitic mass ]Ordered By: Sly Benson on 04-28-2022 MCH (RBC) [Entitic mass] 29.4 pg 24.7-34.3 [facility] MCHC Auto (RBC) [Mass/Vol]Or dered By: Sly Benson on 04-28-2022 MCHC (RBC) [Mass/Vol] 33.6 g/dL 32.0-35.0 [facility] MCV Auto (RBC) [Entitic vol] Ordered By: Sly Benson on 04-28-2022 MCV (RBC) [Entitic vol] 87.5 fL 80-100 [facility] Monocytes Auto (Bld) [#/Vol] Ordered By: Sly Benson on 04-28-2022 Monocytes (Bld) [#/Vol] 0.6 10*3/uL 0.0-0.8 [facility] Monocytes/100 WBC Auto (Bld) Ordered By: Sly Benson on 04-28-2022 Monocytes/100 WBC (Bld) 8.5 % . [facility] Neutrophils Auto (Bld) [#/Vo l]Ordered By: Sly Bensno on 04-28-2022 Neutrophils (Bld) [#/Vol] 4.2 10*3/uL 1.8-7.7 [facility] Neutrophils/100 WBC Auto (Bl d)Ordered By: Sly Benson on 04-28-2022 Neutrophils/100 WBC (Bld) 61.6 % . [facility] No Panel InformationOrdered By: Sly Benson on 04-28-2022 Anti-Nuclear Antibody Comment 2 See comment . [facility] Comment on above: For more information about Hep-2 cell patterns useANApatterns.org, the official website for the [employer] [employer] on Antinuclear Antibody (BARRETT) Patterns (ICAP). ----A positive BARRETT result may occur in healthy individuals (lowtiter) or be associated with a variety of diseases. Seeinterpretation chart which is not all inclusive:Pattern Antigen Detected Suggested Disease Association Homogeneous DNA(ds,ss), SLE - High titers Nucleosomes, Histones Drug-induced SLE Speckled Sm, MATERIALS MANAGER, SCL-70, SLE,MCTD,PSS (diffuse form), SS-A/SS-B Sjogrens Nucleolar SCL-70, PM-1/SCL High titers Scleroderma, PM/DM Centromere Centromere PSS (limited form) w/Crest syndrome variable Nuclear Dot Sp100,[id number] Primary Biliary Cirrhosis Nuclear GP210, Primary Biliary CirrhosisMembrane fish A,B,C Performed at: [facility] [address] [id number] Director: Coleman Lacy PhD, Phone: [phone] Estimated GFR () > 60 mL/Min [facility] Comment on above: GFR estimated refere nce range: According to KDOQI guidelines, <60 ml/min/1.73m2 is sufficient to diagnose a patient with chronic kidney disease. Pharmacy Creatinine Clearance (Chem 60.78 [facility] Platelet mean volume Auto (B ld) [Entitic vol]Ordered By: Sly Benson on 04-28-2022 Platelet mean volume (Bld) [Entitic vol] 7.6 fL 6.3-10.7 [facility] Platelet poor plasma interna tional normalized ratio (INR) by coagulation assay (relatOrdered By: Sly Benson on 04-28-2022 INR Coag (PPP) [Relative time] 0.9 {INR} [facility] Comment on above: INR Therapeutic Rang e [...] 04-28-2022 Platelets (Bld) [#/Vol] 204 10*3/uL 150-450 [facility] Protein [Mass/volume] in Ser um or PlasmaOrdered By: Sly Benson on 04-28-2022 Protein [Mass/Vol] 6.4 g/dL 6.1-7.9 [facility] RBC Auto (Bld) [#/Vol]Ordere d By: Sly Benson on 04-28-2022 RBC (Bld) [#/Vol] 4.63 10*6/uL 3.60-5.00 [facility] Serum nuclear antibody titer Ordered By: Sly Benson on 04-28-2022 Nuclear Ab (S) [Titer] Positive . [facility] Comment on above: Negative <1:80 Borde rline 1:80 Positive >1:80 Serum or plasma alanine castro otransferase measurement without P-5'-P (enzymatic activiOrdered By: Sly Benson on 04-28-2022 ALT No additional P-5'-P [Catalytic activity/Vol] 34 U/L 10-60 [facility] Serum or plasma albumin/glob ulin mass ratioOrdered By: Sly Benson on 04-28-2022 Albumin/Globulin [Mass ratio] 1.2 {ratio} [facility] Serum or plasma alkaline halle sphatase measurement (enzymatic activity/volume)Ordered By: Sly Benson on 04-28-2022 ALP [Catalytic activity/Vol] 114 U/L 32-92 [facility] Serum or plasma anion gap de terminationOrdered By: Sly Benson on 04-28-2022 Anion gap [Moles/Vol] 11.9 mmol/L 6.0-15.0 [facility] Serum or plasma aspartate am inotransferase measurement (enzymatic activity/volume)Ordered By: Sly Benson on 04-28-2022 AST [Catalytic activity/Vol] 38 U/L 10- [facility] Serum or plasma calcium diamond urement (mass/volume)Ordered By: Sly Benson on 04-28-2022 Calcium [Mass/Vol] 8.9 mg/dL 8.2-10.2 [facility] Serum or plasma chloride zora surement (moles/volume)Ordered By: Sly Benson on 04-28-2022 Chloride [Moles/Vol] 105 mmol/L 95-114 [facility] Serum or plasma glucose diamond urement (mass/volume)Ordered By: Sly Benson on 04-28-2022 Glucose [Mass/Vol] 110 mg/dL 70-100 [facility] Comment on above: ADA recommended refe rence rangeRandom Glucose Reference Range is dependent on time and content of last meal. Glucose of more than 200 mg/dL in a nonstressed, ambulatory subject supports the diagnosis of Diabetes Mellitus. Serum or plasma potassium me asurement (moles/volume)Ordered By: Sly Benson on 04-28-2022 Potassium [Moles/Vol] 3.5 mmol/L 3.5-5.1 [facility] Serum or plasma sodium measu rement (moles/volume)Ordered By: Sly Benson on 04-28-2022 Sodium [Moles/Vol] 140 mmol/L 136-146 [facility] Serum or plasma total biliru bin measurement (mass/volume)Ordered By: Sly Benson on 04-28-2022 Bilirubin [Mass/Vol] 0.9 mg/dL 0.3-1.2 [facility] Serum or plasma total carbon dioxide measurement (moles/volume)Ordered By: Sly Benson on 04-28-2022 CO2 [Moles/Vol] 26.6 mmol/L 22.0-30.0 [facility] Serum or plasma urea nitroge n measurement (mass/volume)Ordered By: Sly Benson on 04-28-2022 Urea nitrogen [Mass/Vol] 16 mg/dL 9-23 [facility] Serum speckled pattern antin uclear antibody (BARRETT) titerOrdered By: Sly Benson on 04-28-2022 Speckled nuclear Ab pattern (S) [Titer] 1:160 . [facility] Comment on above: ICAP nomenclature: A C-2,4,5,29 TSH DL <= 0.005 mIU/L QnOrde red By: Sly Benson on 04-28-2022 TSH Qn 3.18 m[IU]/L 0.45-5.33 [facility] Creatinine and Glomerular fi ltration rate.predicted panel (S/P/Bld)Ordered By: Alex Trammell on 03-26-2022 Creatinine [Mass/Vol] 0.87 mg/dL 0.44-1.03 [facility] Estimated glomerular filtrat ion rate (GFR) non- AmericanOrdered By: Alex Trammell on 03-26-2022 GFR/1.73 sq M.predicted among non-blacks MDRD (S/P/Bld) [Vol rate/Area] > 60 mL/Min [facility] No Panel InformationOrdered By: Alex Trammell on 03-26-2022 Estimated GFR () > 60 mL/Min [facility] Comment on above: GFR estimated refere nce range: According to KDOQI guidelines, <60 ml/min/1.73m2 is sufficient to diagnose a patient with chronic kidney disease. Pharmacy Creatinine Clearance (Chem N/A [facility] Serum or plasma urea nitroge n measurement (mass/volume)Ordered By: Alex Trammell on 03-26-2022 Urea nitrogen [Mass/Vol] 18 mg/dL 04-04 [facility] Creatinine and Glomerular fi ltration rate.predicted panel (S/P/Bld)Ordered By: Alex Trammell on 10-10-2021 Creatinine [Mass/Vol] 0.91 mg/dL 0.44-1.03 [facility] Estimated glomerular filtrat ion rate (GFR) non- AmericanOrdered By: Alex Trammell on 10-10-2021 GFR/1.73 sq M.predicted among non-blacks MDRD (S/P/Bld) [Vol rate/Area] 60 mL/Min [facility] No Panel InformationOrdered By: Alex Trammell on 10-10-2021 Estimated GFR () > 60 mL/Min [facility] Comment on above: GFR estimated refere nce range: According to KDOQI guidelines, <60 ml/min/1.73m2 is sufficient to diagnose a patient with chronic kidney disease. Pharmacy Creatinine Clearance (Chem N/A [facility] Serum or plasma urea nitroge n measurement (mass/volume)Ordered By: Alex Trammell on 10-10-2021 Urea nitrogen [Mass/Vol] 19 mg/dL 04-04 [facility] Dermatopathologyon Dermatopathology Name THERESA LUU Pathologist: SURAJ MELGAR MD Date of Procedure: 09/17/2021 Date Received: 09/18/2021 Date Reported 09/20/2021 Submitting Physician: ALEX TRAMMELL MD Location: [facility] Other External # FINAL DIAGNOSIS A. SKIN, [...] M.D. Electronically Signed Out By SURAJ MELGAR MD/[facility] By the signature on this report, [...] mm. Inked and embedded in toto. mlz/09/18/2021 [facility] Dermatopathology Laboratory [place], [place] [id number] [place] [address] [facility] Comment on above: Performed By: #### D #### Dermatopathology No Panel Informationon 09-17 [id number] [facility] Work Phone: Office Visit (Oncology Surge ry)on [...] not connect with the medical oncologist at [facility] who was planning to consider her for [...] a prior mole. 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 As [...] swelling fro (more content not included)... Normal [facility] COMPREHENSIVE METABOLIC PANE [facility] 05-04-2021 Albumin [Mass/Vol] 4.1 g/dL Normal 3.6-5.1 [facility] Comment on above: Performed By: #### 7 600, [id number] #### [facility] [place] [address] [employer] Supervisor: Chadwick Suárez MD Albumin/Globulin [Mass ratio] 1.4 {ratio} Normal 1.0-2.5 [facility] Comment on above: Performed By: #### 7 600, [id number] #### [facility] [place] [address] [employer] Supervisor: Chadwick Suárez MD ALP [Catalytic activity/Vol] 121 U/L Normal 37-153 [facility] Comment on above: Performed By: #### 7 600, [id number] #### [facility] [place] [address] [employer] Supervisor: Chadwick Suárez MD ALT [Catalytic activity/Vol] 18 U/L Normal 6-29 [facility] Comment on above: Performed By: #### 7 600, 76060 #### [facility] [place] [address] [employer] Supervisor: Chadwick Suárez MD AST [Catalytic activity/Vol] 19 U/L Normal 10-35 [facility] Comment on above: Performed By: #### 7 600, 13221 #### [facility] [place] [address] [employer] Supervisor: Chadwick Suárez MD Bilirubin [Mass/Vol] 0.5 mg/dL Normal 0.2-1.2 [facility] Comment on above: Performed By: #### 7 600, [id number] #### [facility] [place] [address] [employer] Supervisor: Chadwick Suárez MD BUN/CREATININE RATIO NOT APPLICABLE Normal 6-22 [facility] Comment on above: Performed By: #### 7 600, 18951 #### [facility] [place] [address] [employer] Supervisor: Chadwick Suárez MD Calcium [Mass/Vol] 9.4 mg/dL Normal 8.6-10.4 [facility] Comment on above: Performed By: #### 7 600, 84913 #### [facility] [place] [address] [employer] Supervisor: Chadwick Suárez MD Chloride [Moles/Vol] 106 mmol/L Normal 98-110 [facility] Comment on above: Performed By: #### 7 600, 52459 #### [facility] [place] [address] [employer] Supervisor: Chadwick Suárez MD CO2 [Moles/Vol] 31 mmol/L Normal 20-32 [facility] Comment on above: Performed By: #### 7 600, 23353 #### [facility] [place] [address] [employer] Supervisor: Chadwick Suárez MD Creatinine [Mass/Vol] 0.78 mg/dL Normal 0.60-0.[address] [facility] Comment on above: Result Comment: For patients >49 years of age, the reference limit for Creatinine is approximately 13% higher for people identified as -Scottish. Performed By: #### 7 600, 70704 #### [facility] [place] [address] [employer] Supervisor: Chadwick Suárez MD eGFR NON-AFR. [place] 75 mL/min/1.73m2 Normal > OR = 60 [facility] Comment on above: Performed By: #### 7 600, 97160 #### [facility] [place] [address] [employer] Supervisor: Chadwick Suárez MD GFR/1.73 sq M.predicted among blacks MDRD (S/P/Bld) [Vol rate/Area] 87 mL/min/{1.73_m2} Normal > OR = 60 [facility] Comment on above: Performed By: #### 7 600, 19968 #### [facility] [place] [address] [employer] Supervisor: Chadwick Suárez MD Globulin (S) [Mass/Vol] 2.9 g/dL Normal 1.9-3.7 [facility] Comment on above: Performed By: #### 7 600, 86259 #### [facility] [place] [address] [employer] Supervisor: Chadwick Suárez MD Glucose [Mass/Vol] 105 mg/dL High 65-99 [facility] Comment on above: Result Comment: Fasting reference interval For someone without known diabetes, a glucose value between 100 and 125 mg/dL is consistent with prediabetes and should be confirmed with a follow-up test. Performed By: #### 7 600, 46056 #### [facility] [place] [address] [employer] Supervisor: Chadwick Suárez MD Potassium [Moles/Vol] 4.9 mmol/L Normal 3.5-5.[address] [facility] Comment on above: Performed By: #### 7 600, 08428 #### [facility] [place] [address] [employer] Supervisor: Chadwick Suárez MD Protein [Mass/Vol] 7.0 g/dL Normal 6.1-8.1 [facility] Comment on above: Performed By: #### 7 600, 94779 #### [facility] [place] [address] [place] [address] [employer] Supervisor: Chadwick Suárez MD Sodium [Moles/Vol] 143 mmol/L Normal 135-146 [facility] Comment on above: Performed By: #### 7 600, 61388 #### [facility] [address], [address] [place] [address] [employer] Supervisor: Chadwick Suárez MD Urea nitrogen [Mass/Vol] 18 mg/dL Normal 7-25 [facility] Comment on above: Performed By: #### 7 600, 63355 #### [facility] [address], [address] [place] [address] [employer] Supervisor: Chadwick Suárez MD LIPID PANEL, [facility] 10-2 Cholesterol [Mass/Vol] 235 mg/dL High <200 [facility] Comment on above: Order Comment: FASTI NG:YES AN UPDATE OR CORRECTION HAS BEEN MADE TO NAME FASTING: YES Performed By: #### 7 600, 73335 #### [facility] [address], [address] [place] [address] [employer] Supervisor: Chadwick Suárez MD Cholesterol in HDL [Mass/Vol] 83 mg/dL Normal > OR = 50 [facility] Comment on above: Order Comment: FASTI NG:YES AN UPDATE OR CORRECTION HAS BEEN MADE TO NAME FASTING: YES Performed By: #### 7 600, 72015 #### [facility] [address], [address] [place] [address] [employer] Supervisor: Chadwick Suárez MD Cholesterol in LDL [Mass/Vol] [...] LDL-C. Enrique BOUDREAUX et al. ROCCO. 2013;310(19): 8605-0001 (http://education.[employer].Saguna [employer]/faq/NJU381) Performed By: #### 7 600, 41715 #### [facility] [address], [address] [place] [address] [employer] Supervisor: Chadwick Suárez MD Cholesterol.total/Chol esterol in HDL [Mass ratio] 2.8 {ratio} Normal <5.0 [facility] Comment on above: Order Comment: FASTI NG:YES AN UPDATE OR CORRECTION HAS BEEN MADE TO NAME FASTING: YES Performed By: #### 7 600, 90497 #### [facility] [address], [address] [place] [address] [employer] Supervisor: Chadwick Suárez MD NON HDL CHOLESTEROL 152 [...] therapeutic option. Performed By: #### 7 600, 04763 #### [facility] [address], [address] [place] [address] [employer] Supervisor: Chadwick Suárez MD Triglyceride [Mass/Vol] 132 mg/dL Normal <150 [facility] Comment on above: Order Comment: FASTI NG:YES AN UPDATE OR CORRECTION HAS BEEN MADE TO NAME FASTING: YES Performed By: #### 7 600, 63090 #### [facility] [address], [address] [place] [address] [employer] Supervisor: Chadwick Suárez MD Office Visit (Oncology Surge [...] was referred to Dr. Francisca Rose at [facility] for medical oncology consultation for her in-transit [...] a prior mole. The patient moved from [place] 8 years ago and has not established [...] be referred to Dr. Francisca Rose at [facility] for medical oncology consultation. Her care [...] a prior mole. The patient moved from [place] 8 years ago and has not established [...] Bacteria identified Cx Nom (Unsp spec) Abnormal CH-Vtpoudu-O [facility] Work Phone: MISCELLANEOUS CULT./SM.BACT. on 12-04-2020 MISCELLANEOUS CULT./SM.BACT. PATIENT: THERSEA LUU LOCATION: [facility] BILL#: [id number] : 47 AGE: SEX: F ORDERED BY: [...] DOSE DEPENDENT NS=NONSUSCEPTIBLE X=REPORTED IN ERROR Normal [facility] Comment on above: Performed By: #### M [facility] #### [facility] [address] [place] [address] Office Visit (Oncology Surge ry)on 12-04-2020 Follow-up [...] be referred to Dr. Francisca Rose at [facility] for medical oncology consultation. Her care will [...] a prior mole. The patient moved from [place] 8 years ago and has not established [...] The s (more content not included)... Normal [employer] Office Visit (Oncology Surge ry)on 11-27-2020 Follow-up [...] be referred to Dr. Francisca Rose at [facility] for medical oncology consultation. Her care will [...] a prior mole. The patient moved from [place] 8 years ago and has not established [...] Malignant jerson (more content not included)... Normal [employer] Dermatopathologyon 1 Dermatopathology [facility] Dermatopathology Laboratory [address] [place] [id number] DERMATOPATHOLOGY REPORT Name:THERESA LUU Shanice [facility]. Rec #. [id number] Location: [facility] Date of Procedure: 11/16/2020 Race: Date Received: [...] determined by the Department of Pathology at [facility]. The FDA does not require this test [...] LEFT LOWER LEG MELANOMA: SPECIMEN Procedure: Re-excision Poneto node(s) biopsy Specimen Laterality: Left TUMOR Tumor [...] of Lymph Nodes Examined: 3 Number of Poneto Nodes Examined: 2 PATHOLOGIC STAGE CLASSIFICATION (pTNM, [...] ADDITIONAL FINDINGS Additional Findings: None ADDITIONAL TESTING REGRINDER BLOCKS: Normal Block: D1 - 5, 7, 18, 20 - 23 Tumor Block: D6, 8 - 17 Electronically Signed Out By SURAJ MELGAR MD/MICHAEL By the signature on this report, the individual or group listed as making the Final Interpretation/Diagnosis certifies that they have reviewed this case. Clinical History: A: Poneto lymph n (more content not included)... Normal [facility] Comment on above: Performed By: #### D #### Dermatopathology LYMPH GLANDon 11-16-2020 LYMPH GLAND Patient Name: THERESA LUU STUDY: LYMPH GLAND; 11/16/2020 10:05 am INDICATION: Malignant melanoma of left lower leg. COMPARISON: PET-CT 10/31/2020. ACCESSION NUMBER(S): [id number] ORDERING CLINICIAN: ALEX TRAMMELL TECHNIQUE: DIVISION OF NUCLEAR MEDICINE RADIONUCLIDE SENTINEL LYMPH NODE LYMPHOSCINTIGRAPHY A total of 970 microcuries of Tc-99m tilmanocept (LymphPaltalk) was injected intradermally in a circumferential pattern [...] review. Electronically signed by: COCO ARCHIBALD MD [facility] No Panel Informationon 11-16 [facility] Work Phone: Order Reconciliationon 11-16 Order Reconciliation [...] every 6 hours, As Needed pain Normal [facility] Patient Profile - Preop v2on 11-16-2020 Patient Profile - Preop v2 Profile: Initial Info: How to be Addressedpamela(1) Spoken Language PreferredEnglish (1) Source of Informationpatient Are you currently using the Personal Electronic Health Record or Harvest Exchange Stated Reason for Admissionmelanoma on my lower left leg Primary Contact Name and Numberdonna-cousin Other Contact Names and Numberssue-friend Patient Belongingsremains with patient; patient educated regarding responsibility for personal items Patient Belongings Remaining with Patientclothing Medications Brought to Hospitalno General Health: Weight in kg90 kilogram(s) Weight in ain826.4 pound(s) Weight Methodactual (measured) Scale Typechair Height in feet5 feet Height in inches2 inch(es) Height in cm157.4 centimeter(s) Height Methodstated BMI (kg/m2)36.327 square meter Patient or Family Member Reaction to Anesthesiano previous reaction Blood Avoidance/Restrictionsnone Previous Transfusion Reactionno Health Mgmt: Symptoms/Conditions Managed at Homecancer Cancer Symptoms/Conditionsmelanom a Barriers to Managing Healthnone Relationship/Environ: Living Arrangementshouse Lives Withalone Resource/Environmental Concernsnone [facility] Anticipated at Transitionnone Substance: Current or [...] material; individual instruction Cultural Considerationsnone Developmental Considerationsnone Tenriism Considerationsnone Other learner availableno Falls RiskPatient location auto qualifies him/her for HIGH RISK. Are there any cultural, spiritual, latter-day practices/values/needs that are important for us to [...] Past Medical History, Active Electronic Signatures: Deepa Zazueta) (Signed 16-Nov-2020 06:27) Authored: Initial Info, General Health, Health Mgmt, Relationship/Environ, Substance, Risk Screens, Additional Information Last Updated: 16-Nov-2020 06:27 by Deepa Zazueta (GABY) References: 1. Data Referenced From Patient Profile - Preop v2 14-Nov-2020 09:30 [facility] Preop Checkliston 11-16-2020 Preop Checklist Preop Checklist: Preop Checklist: Arrival [id number] Arrival Time06:04 NPO [id number] 22:00 ID Band Onyes Allergy Bandno known allergies Consent Signedpending H&P Completeyes Anesthesia Assessment Completedpending EKG Performedyes Chest X-Ray Performednot ordered HCG Urine TestN/A Chlorhexadine Bath Givennot applicable Nasal Antiseptic Appliednot applicable Hair Washednot applicable Soap and water bath with hair shampoo the night before surgeryyes Hat placed on prior to transportnot applicable SCD's Appliedsent to OR MARGOT Hose Appliednot ordered Denturesperm. bridge Prostheticsnot applicable Hearing [...] Communication: Language / CommunicationEnglish Electronic Signatures: Deepa Zazueta) (Signed 16-Nov-2020 06:31) Authored: Preop Checklist Last Updated: 16-Nov-2020 06:31 by Deepa Zazueta (GABY) [facility] Radiologyon 11-16-2020 NM Lymph node Views Normal MG-Bur[facility] Work Phone: BASIC METABOLIC PANELon Anion gap [Moles/Vol] 10 mmol/L Normal 10 - 20 [facility] Comment on above: Performed By: #### B MP #### [address] [address] Calcium [Mass/Vol] 9.2 mg/dL Normal 8.6 - 10.3 [facility] Comment on above: Performed By: #### B MP #### [address] [address] Chloride [Moles/Vol] 105 mmol/L Normal 98 - 107 [facility] Comment on above: Performed By: #### B MP #### [address] [address] Creatinine [Mass/Vol] 0.81 mg/dL Normal 0.50 - 1.05 [facility] Comment on above: Performed By: #### B MP #### [address] [address] GFR- AM. >60 Normal >60 [facility] Comment on above: Result Comment: CALC ULATIONS OF ESTIMATED GFR ARE PERFORMED USING THE MDRD STUDY EQUATION FOR THE IDMS-TRACEABLE CREATININE METHODS. CLIN CHEM 2007;53:766-72 Performed By: #### B MP #### [address] [address] GFR-NON AM. >60 Normal >60 [facility] Comment on above: Performed By: #### B MP #### [address] [address] Glucose [Mass/Vol] 95 mg/dL Normal 74 - 99 [facility] Comment on above: Performed By: #### B MP #### [address] [address] HCO3 (Bld) [Moles/Vol] 30 mmol/L Normal 21 - 32 [facility] Comment on above: Performed By: #### B MP #### [address] [address] Potassium [Moles/Vol] 4.1 mmol/L Normal 3.5 - 5.3 [facility] Comment on above: Performed By: #### B MP #### [facility] [address] [place] [address] Sodium [Moles/Vol] 141 mmol/L Normal 136 - 145 [facility] Comment on above: Performed By: #### B MP #### [facility] [address] [place] [address] Urea nitrogen [Mass/Vol] 16 mg/dL Normal 6 - 23 [facility] Comment on above: Performed By: #### B MP #### [address] [place] [address] CORONAVIRUS 2019, SCREEN ASY MPTOMATICon 11-14-2020 SARS-CoV-2 (COVID-19) RNA BENOIT+probe Ql (Unsp spec) Not detected Normal Not Detected [facility] Comment on above: Result Comment: . This [...] this test method. Fact sheet for providers: https://www.fda.gov/media/684033/download Fact sheet for patients: https://www.fda.gov/media/292869/download This test has received FDA Emergency Use Authorization [EUA] and has been verified by [facility] ([facility]). This test is only authorized for the duration of time that circumstances exist to justify the authorization of the emergency use of in vitro diagnostic tests for the detection of SARS-CoV-2 virus and/or diagnosis of COVID-19 infection under section 564(b)(1) of the Act, 21 U.S.C. 360bbb-3(b)(1), unless the authorization is terminated or revoked sooner. [facility] is certified under CLIA-88 as qualified to perform high complexity testing. Testing is performed in the [facility] laboratories located at [address] [place] [address]. Performed By: #### C OVSC #### [facility] [id number] [place] [address]. [place] [address] Lab Specimen Source Nasal, Nasopharyngeal Normal [facility] Comment on above: Performed By: #### C OVSC #### [facility] [address] [place] [address]. [place] [address] Coronavirus 2019 RNA by PCR, Screening Asymptomticon 11-14-2020 Coronavirus 2019 RNA by PCR, Screening Asymptomtic Not detected Normal See Below UQ-Zcdqltj-I [facility] Work Phone: Comment on above: SOURCE: Nasal, [...] this test method. Fact sheet for providers: https://www.fda.gov/media/740871/downloadFact sheet for patients: https://www.fda.gov/media/827846/downloadThis test has received FDA Emergency Use Authorization [EUA] and has been verified by [facility] ([facility]). This test is only authorized for the duration of time that circumstances exist to justify the authorization of the emergency use of in vitro diagnostic tests for the detection of SARS-CoV-2 virus and/or diagnosis of COVID-19 infection under section 564(b)(1) of the Act, 21 U.S.C. 360bbb-3(b)(1), unless the authorization is terminated or revoked sooner. [facility] is certified under CLIA-88 as qualified to perform high complexity testing. Testing is performed in the [facility] laboratories located at [address] [place] [address]. Covid 19 Resultson SARS-CoV-2 (COVID-19) RNA BENOIT+probe Ql (Unsp spec) [...] You may also be contacted by the [facility] to see if any of your close [...] or Naproxen (Aleve) can also be used. Wzpi-brk-zsvuxmh cough and cold medicines can be used according to the instructions on the package. Some ubjk-uyr-cjzwzlt medicines also contain acetaminophen. Make sure you [...] water are not available, use alcohol-based hand head of acquisitions. Avoid touching your eyes, nose, and mouth [...] 24 sivakumar (more content not included)... Normal [facility] Laboratory - Chemistry and C hemistry - challengeon 11-14-2020 Anion gap [Moles/Vol] 10 mmol/L 10 - 20 MG- Surgery-S [facility] Work Phone: Calcium [Mass/Vol] 9.2 mg/dL 8.6 - 10.3 MG-Pedro nancy-S [facility] Work Phone: [phone] Chloride [Moles/Vol] 105 mmol/L 98 - 107 MG-S urgeryS [facility] Work Phone: [phone] CO2 [Moles/Vol] 30 mmol/L 21 - 32 MG-Surger y-S [facility] Work Phone: [phone] Creatinine [Mass/Vol] 0.81 mg/dL See Below MG- Surgery-S [facility] Work Phone: [phone] Comment on above: Reference Range: 0.5 0 - 1.05 Glucose [Mass/Vol] 95 mg/dL 74 - 99 MG-Pedro nancyS [facility] Work Phone: [phone] Potassium [Moles/Vol] 4.1 mmol/L 3.5 - 5.3 MG- SurgeryS [facility] Work Phone: [phone] Sodium [Moles/Vol] 141 mmol/L 136 - 145 MG-Pedro nancyS [facility] Work Phone: [phone] Urea nitrogen [Mass/Vol] 16 mg/dL 6 - 23 NZ-Ydvbpbp-H [facility] Work Phone: No Panel Informationon 11-14 >60 >60 AW-Blfouar-G [facility] Work Phone: Comment on above: CALCULATIONS OF DENIS MATED GFR ARE PERFORMED USING THE MDRD STUDY EQUATION FOR THE IDMS-TRACEABLE CREATININE METHODS. CLIN CHEM 2007;53:766-72 http://[email or web address] 1:8080 /musescripts/museweb.dll?R etrieveTestByDateTime?Rachel hwpYF=[id number]&Date=11-14&Time=09%3a51%3a40%3a 00&TestType=ECG&Site=12&Ou tputType=PDF&Ext=PDF IB-Eezekcj-C [facility] Work Phone: [phone] Normal sinus rhythm MG-Burton rgery-S [facility] Work Phone: [phone] Normal XC-Hwjwihm-Z [facility] Work Phone: [phone] 1 KF-Offjngn-V [facility] Work Phone: [phone] IM-Lcjnmcu-Q [facility] Work Phone: [phone] OA-Xamxaca-T [facility] Work Phone: [phone] GP-Xjgxlxh-E [facility] Work Phone: [phone] 1 IE-Jwjgahs-A [facility] Work Phone: [phone] VD-Maxrrxa-L [facility] Work Phone: [phone] JZ-Ykkriru-T [facility] Work Phone: [phone] KU-Miftiai-A [facility] Work Phone: [phone] BE-Tkwdqsu-Y [facility] Work Phone: [phone] 1 NU-Ptsuomy-J [facility] Work Phone: [phone] XB-Guspdgz-A [facility] Work Phone: 1 NQ-Azofvyl-A [facility] Work Phone: [phone] PI-Eskvvqw-G [facility] Work Phone: 1 ZY-Icclmlx-U [facility] Work Phone: PET/CT MELANOMA INITIAL STAG [place] 10-31-2020 PET/CT [...] leg biopsy-proven melanoma. COMPARISON: None. ACCESSION NUMBER(S): [id number] ORDERING CLINICIAN: ALEX TRAMMELL TECHNIQUE: DIVISION OF [...] CODING: Initial Treatment Strategy (PI) CALIBRATION: Dose Qdwlqlknk-fz-Njwa Interval (mins): 72 min Mediastinal bloodpool SUV [...] as stated. This study was interpreted at [facility]. Electronically signed by: IVELISSE OVALLE MD Normal [facility] Office Visit (Oncology Surge ry)on 10-23-2020 Follow-up [...] a prior mole. The patient moved from [place] 8 years ago and has not established [...] chronic medical conditions Social history: Lives in [place] independently. Has 2 dogs. Walks regularly. Denies tobacco, alcohol, and drug use. Has extended family in [facility] Allergies: No known drug allergies ROS: The [...] use of (more content not included)... Normal [employer] [facility] Surgical Pathology Depar tmenton 10-16-2020 [facility] Surgical Pathology Department Name THERESA LUU Pathologist: SHER DIAS MD Date of Procedure: 10/16/2020 Date Received: 10/31/2020 Date Reported 11/02/2020 Submitting Physician: SURAJ MELGAR MD Location: [facility] FINAL DIAGNOSIS RESULTS OF ANCILLARY TESTING ORDERED [...] extraction and testing are performed in the [facility] ([facility]) located at [address] [place] [address] (CLIA License #[id number], CAP #[id number]). This laboratory developed test was developed and its analytical performance characteristics have been determined by [facility]. This test has not been cleared or approved by the FDA; however, the FDA has determined that such approval is not necessary. The [facility] is certified under the Clinical Laboratory Improvement [...] as m (more content not included)... Normal [facility] Comment on above: Performed By: #### U [facility] #### [facility] Surgical Pathology Department [id number] [facility] [address] Vital Signs Date Time Vital Sign Value Performing Clinician Facility 08-07-2023 11:24-0500 Body temperature 98.2 [degF] DO [employer] Work Phone: [facility] 08-07-2023 11:24-0500 Body weight 89.35 kg DO [employer] Work Phone: [facility] 08-07-2023 11:24-0500 Diastolic blood pressure 70 mm[Hg] DO [employer] Work Phone: [facility] 08-07-2023 11:24-0500 Heart rate 88 /min DO [employer] Work Phone: [facility] 08-07-2023 11:24-0500 Respiratory rate 18 /min DO Yoni Furlong Work Phone: [facility] 08-07-2023 11:24-0500 SaO2% (BldA) [Mass fraction] 98 % DO Yoni Furlong Work Phone: [facility] 08-07-2023 11:24-0500 Systolic blood pressure 151 mm[Hg] DO Yoni Furlong Work Phone: [facility] 07-14-2023 13:32-0500 Body temperature 98.2 [degF] DO Yoni Furlong Work Phone: [facility] 07-14-2023 13:32-0500 Diastolic blood pressure 78 mm[Hg] DO Yoni Furlong Work Phone: [facility] 07-14-2023 13:32-0500 Heart rate 81 /min DO Yoni Furlong Work Phone: [facility] 07-14-2023 13:32-0500 Respiratory rate 18 /min DO Yoni Furlong Work Phone: [facility] 07-14-2023 13:32-0500 SaO2% (BldA) [Mass fraction] 97 % DO Yoni Furlong Work Phone: [facility] 07-14-2023 13:32-0500 Systolic blood pressure 113 mm[Hg] DO Yoni Furlong Work Phone: [facility] 03-24-2023 10:14-0400 Body height 160.02 cm DO Yoni Furlong Work Phone: [facility] 03-06-2023 13:49-0400 Body temperature 97.8 [degF] DO Yoni Furlong Work Phone: [facility] 03-06-2023 13:49-0400 Body weight 89.35 kg DO Yoni Furlong Work Phone: [facility] 03-06-2023 13:49-0400 Diastolic blood pressure 71 mm[Hg] DO Yoni Furlong Work Phone: [facility] 03-06-2023 13:49-0400 Heart rate 87 /min DO Yoni Furlong Work Phone: [facility] 03-06-2023 13:49-0400 Respiratory rate 16 /min DO Yoni Furlong Work Phone: [facility] 03-06-2023 13:49-0400 SaO2% (BldA) [Mass fraction] 94 % DO Yoni Furlong Work Phone: [facility] 03-06-2023 13:49-0400 Systolic blood pressure 139 mm[Hg] DO Yoni Furlong Work Phone: [facility] 01-27-2023 10:30-0400 Body temperature 97.5 [degF] Kimber Reidraw Other [employer] Other 01-27-2023 10:30-0400 Body weight 87.54 kg Kimber Reidraw Other [employer] Other 01-27-2023 10:30-0400 Diastolic blood pressure 80 mm[Hg] Kimbershaq Lacy Other [employer] Other 01-27-2023 10:30-0400 SaO2% (BldA) [Mass fraction] 96 % Kimber Regino Other [employer] Other 01-27-2023 10:30-0400 Systolic blood pressure 159 mm[Hg] Kimber Lacy Other [employer] Other 01-27-2023 10:23-0400 Body temperature 97.5 [degF] DO Yoni Furlong Work Phone: [facility] 01-27-2023 10:23-0400 Body weight 88.49 kg DO Yoni Furlong Work Phone: [facility] 01-27-2023 10:23-0400 Diastolic blood pressure 80 mm[Hg] DO Yoni Furlong Work Phone: [facility] 01-27-2023 10:23-0400 Heart rate 90 /min DO Yoni Furlong Work Phone: [facility] 01-27-2023 10:23-0400 Respiratory rate 18 /min DO Yoni Furlong Work Phone: [facility] 01-27-2023 10:23-0400 SaO2% (BldA) [Mass fraction] 96 % DO Yoni Furlong Work Phone: [facility] 01-27-2023 10:23-0400 Systolic blood pressure 159 mm[Hg] DO Yoni Furlong Work Phone: [facility] 12-30-2022 09:56-0400 Body weight 88.45 kg DO Yoni Furlong Work Phone: [facility] 12-30-2022 08:26-0400 Body temperature 97.8 [degF] DO Yoni Furlong Work Phone: [facility] 12-30-2022 08:26-0400 Body weight 88.45 kg DO Yoni Furlong Work Phone: [facility] 12-30-2022 08:26-0400 Diastolic blood pressure 81 mm[Hg] DO Yoni Furlong Work Phone: [facility] 12-30-2022 08:26-0400 Heart rate 86 /min DO Yoni Furlong Work Phone: [facility] 12-30-2022 08:26-0400 Respiratory rate 16 /min DO Yoni Furlong Work Phone: [facility] 12-30-2022 08:26-0400 SaO2% (BldA) [Mass fraction] 98 % DO Yoni Furlong Work Phone: [facility] 12-30-2022 08:26-0400 Systolic blood pressure 132 mm[Hg] DO Yoni Furlong Work Phone: [facility] 09-08-2022 11:09-0500 Body weight 90.2 kg DO Yoni Furlong Work Phone: [facility] 09-08-2022 09:52-0500 Body temperature 97.9 [degF] DO Yoni Furlong Work Phone: [facility] 09-08-2022 09:52-0500 Body weight 90.2 kg DO Yoni Furlong Work Phone: [facility] 09-08-2022 09:52-0500 Diastolic blood pressure 82 mm[Hg] DO Yoni Furlong Work Phone: [facility] 09-08-2022 09:52-0500 Heart rate 78 /min DO Yoni Furlong Work Phone: [facility] 09-08-2022 09:52-0500 Respiratory rate 20 /min DO Yoni Furlong Work Phone: [facility] 09-08-2022 09:52-0500 SaO2% (BldA) [Mass fraction] 97 % DO Yoni Furlong Work Phone: [facility] 09-08-2022 09:52-0500 Systolic blood pressure 137 mm[Hg] DO Yoni Furlong Work Phone: [facility] 08-11-2022 11:25-0500 Body weight 89.4 kg DO Yoni Furlong Work Phone: [facility] 08-11-2022 10:28-0500 Body height 160.02 cm DO Yoni Furlong Work Phone: [facility] 08-11-2022 10:28-0500 Body temperature 97.4 [degF] DO Yoni Furlong Work Phone: [facility] 08-11-2022 10:28-0500 Diastolic blood pressure 68 mm[Hg] DO Yoni Furlong Work Phone: [facility] 08-11-2022 10:28-0500 Heart rate 82 /min DO Yoni Furlong Work Phone: [facility] 08-11-2022 10:28-0500 Respiratory rate 20 /min DO Yoni Furlong Work Phone: [facility] 08-11-2022 10:28-0500 SaO2% (BldA) [Mass fraction] 98 % DO Yoni Furlong Work Phone: [facility] 08-11-2022 10:28-0500 Systolic blood pressure 132 mm[Hg] DO Yoni Furlong Work Phone: [facility] 06-23-2022 12:05-0500 Body weight 88.6 kg DO Yoni Furlong Work Phone: [facility] 06-23-2022 10:44-0500 Body temperature 97.9 [degF] DO Yoni Furlong Work Phone: [facility] 06-23-2022 10:44-0500 Body weight 88.6 kg DO Yoni Furlong Work Phone: [facility] 06-23-2022 10:44-0500 Diastolic blood pressure 74 mm[Hg] DO Yoni Furlong Work Phone: [facility] 06-23-2022 10:44-0500 Heart rate 80 /min DO Yoni Furlong Work Phone: [facility] 06-23-2022 10:44-0500 Respiratory rate 18 /min DO Yoni Furlong Work Phone: [facility] 06-23-2022 10:44-0500 SaO2% (BldA) [Mass fraction] 98 % DO Yoni Furlong Work Phone: [facility] 06-23-2022 10:44-0500 Systolic blood pressure 141 mm[Hg] DO Yoni Furlong Work Phone: [facility] 06-02-2022 10:29-0500 Body temperature 97.7 [degF] DO Yoni Furlong Work Phone: [facility] 06-02-2022 10:29-0500 Body weight 89.9 kg DO Yoni Furlong Work Phone: [facility] 06-02-2022 10:29-0500 Diastolic blood pressure 82 mm[Hg] DO Yoni Furlong Work Phone: [facility] 06-02-2022 10:29-0500 Heart rate 92 /min DO Yoni Furlong Work Phone: [facility] 06-02-2022 10:29-0500 Respiratory rate 16 /min DO Yoni Furlong Work Phone: [facility] 06-02-2022 10:29-0500 SaO2% (BldA) [Mass fraction] 97 % DO Yoni Furlong Work Phone: [facility] 06-02-2022 10:29-0500 Systolic blood pressure 150 mm[Hg] DO Yoni Furlong Work Phone: [facility] 05-02-2022 15:07-0400 Body weight 92.8 kg DO Yoni Furlong Work Phone: [facility] 05-02-2022 15:07-0400 Diastolic blood pressure 83 mm[Hg] DO Yoni Furlong Work Phone: [facility] 05-02-2022 15:07-0400 Heart rate 87 /min DO Yoni Furlong Work Phone: [facility] 05-02-2022 15:07-0400 Respiratory rate 20 /min DO Yoni Furlong Work Phone: [facility] 05-02-2022 15:07-0400 SaO2% (BldA) [Mass fraction] 98 % DO Yoni Furlong Work Phone: [facility] 05-02-2022 15:07-0400 Systolic blood pressure 146 mm[Hg] DO Yoni Furlong Work Phone: [facility] 04-28-2022 09:07-0400 Diastolic blood pressure 76 mm[Hg] DO Yoni Furlong Work Phone: [facility] 04-28-2022 09:07-0400 Heart rate 93 /min DO Yoni Furlong Work Phone: [facility] 04-28-2022 09:07-0400 Respiratory rate 18 /min DO Yoni Furlong Work Phone: [facility] 04-28-2022 09:07-0400 SaO2% (BldA) [Mass fraction] 95 % DO Yoni Furlong Work Phone: [facility] 04-28-2022 09:07-0400 Systolic blood pressure 148 mm[Hg] DO Yoni Furlong Work Phone: [facility] 04-28-2022 08:11-0400 Body height 157.48 cm DO Yoni Furlong Work Phone: [facility] 04-28-2022 08:11-0400 Body temperature 98.6 [degF] DO Yoni Furlong Work Phone: [facility] 04-28-2022 08:11-0400 Body weight 91.17 kg DO Yoni Furlong Work Phone: [facility] 04-21-2022 08:54-0400 Body height 160.02 cm DO Yoni Furlong Work Phone: [facility] 04-21-2022 08:54-0400 Body temperature 98 [degF] DO Yoni Furlong Work Phone: [facility] 04-21-2022 08:54-0400 Body weight 91.48 kg DO Yoni Furlong Work Phone: [facility] 04-21-2022 08:54-0400 Diastolic blood pressure 87 mm[Hg] DO Yoni Furlong Work Phone: [facility] 04-21-2022 08:54-0400 Heart rate 85 /min DO Yoni Furlong Work Phone: [facility] 04-21-2022 08:54-0400 Respiratory rate 20 /min DO Yoni Furlong Work Phone: [facility] 04-21-2022 08:54-0400 SaO2% (BldA) [Mass fraction] 97 % DO Yoni Furlong Work Phone: [facility] 04-21-2022 08:54-0400 Systolic blood pressure 161 mm[Hg] DO Yoni Furlong Work Phone: [facility] 10-25-2021 09:45-0400 Body temperature 98 [degF] MD Alex Trammell Work Phone: [facility] 10-25-2021 09:45-0400 Body weight 90.94 kg MD Alex Trammell Work Phone: [facility] 10-25-2021 09:45-0400 Diastolic blood pressure 70 mm[Hg] MD Alex Trammell Work Phone: [facility] 10-25-2021 09:45-0400 Heart rate 90 /min MD Alex Trammell Work Phone: [facility] 10-25-2021 09:45-0400 Respiratory rate 20 /min MD Alex Trammell Work Phone: [facility] 10-25-2021 09:45-0400 SaO2% (BldA) [Mass fraction] 98 % MD Alex Trammell Work Phone: [facility] 10-25-2021 09:45-0400 Systolic blood pressure 141 mm[Hg] MD Alex Trammell Work Phone: [facility] 10-07-2021 08:13-0400 Body temperature 98.1 [degF] DO Sly Adamowicz II Work Phone: [facility] 10-07-2021 08:13-0400 Body weight 92.8 kg DO Sly Adamowicz II Work Phone: [facility] 10-07-2021 08:13-0400 Diastolic blood pressure 78 mm[Hg] DO Sly Adamowicz II Work Phone: [facility] 10-07-2021 08:13-0400 Heart rate 96 /min DO Sly Adamowicz II Work Phone: [facility] 10-07-2021 08:13-0400 Respiratory rate 20 /min DO Sly Adamowicz II Work Phone: [facility] 10-07-2021 08:13-0400 SaO2% (BldA) [Mass fraction] 97 % DO Sly Adamowicz II Work Phone: [facility] 10-07-2021 08:13-0400 Systolic blood pressure 144 mm[Hg] DO Sly Adamowicz II Work Phone: [facility] 10-07-2021 08:05-0400 Body height 160.02 cm DO Sly Benson II Work Phone: [facility] 09-17-2021 15:09-0500 Body temperature 98.6 [degF] Yoni Prolong Work Phone: [facility] Work Phone: 09-17-2021 15:09-0500 Body weight 89.54 kg Yoni Prolong Work Phone: [facility]ms[facility] Work Phone: 09-17-2021 15:09-0500 Diastolic blood pressure 81 mm[Hg] Yoni Prolong Work Phone: WU[facility]wrvtfk[facility] Work Phone: 09-17-2021 15:09-0500 Heart rate 101 /min Yoni Prolong Work Phone: GW[facility]zbrm[facility] Work Phone: 09-17-2021 15:09-0500 Respiratory rate 18 /min Yoni Hollowayng Work Phone: KN[facility]ebhlq[facility] Work Phone: 09-17-2021 15:09-0500 Systolic blood pressure 158 mm[Hg] Yoni Prolong Work Phone: IE[facility]nhczz[facility] Work Phone: 01-22-2021 14:42-0400 Body weight 88.03 kg Yoni Prolong Work Phone: ME-Qgwebys-Aefwotxe 150 Work Phone: 01-22-2021 14:42-0400 Diastolic blood pressure 84 mm[Hg] Yoni Prolong Work Phone: OA-Flijubp-Bhnmvuzp 150 Work Phone: 01-22-2021 14:42-0400 Heart rate 102 /min Yoni G Furlong Work Phone: PR-Aamkyvp-Yltsocvh 150 Work Phone: 01-22-2021 14:42-0400 SaO2% (BldA) [Mass fraction] 95 % Yoni G Furlong Work Phone: WJ-Fimmxxg-Oumylrdb 150 Work Phone: 01-22-2021 14:42-0400 Systolic blood pressure 149 mm[Hg] Yoni G Furlong Work Phone: RR-Cpwhyxi-Eaugkeos 150 Work Phone: 12-25-2020 15:23-0400 Body weight 89.36 kg Yoni Neo Furlong Work Phone: [facility] Work Phone: 12-25-2020 15:23-0400 Diastolic blood pressure 85 mm[Hg] Yoni G Furlong Work Phone: [facility] Work Phone: 12-25-2020 15:23-0400 Heart rate 105 /min Yoni G Furlong Work Phone: [facility] Work Phone: 12-25-2020 15:23-0400 SaO2% (BldA) [Mass fraction] 95 % Yoni G Furlong Work Phone: [facility] Work Phone: 12-25-2020 15:23-0400 Systolic blood pressure 163 mm[Hg] Yoni G Furlong Work Phone: [facility] Work Phone: 12-04-2020 15:07-0400 Diastolic blood pressure 84 mm[Hg] Yoni G Furlong Work Phone: [facility] Work Phone: 12-04-2020 15:07-0400 Heart rate 111 /min Yoni Prolong Work Phone: [facility] SM Work Phone: 12-04-2020 15:07-0400 SaO2% (BldA) [Mass fraction] 98 % Yoni Prolong Work Phone: [facility] Work Phone: 12-04-2020 15:07-0400 Systolic blood pressure 154 mm[Hg] Yoni Prolong Work Phone: [facility] Work Phone: 11-27-2020 15:10-0400 Body weight 90.72 kg Yoni Prolong Work Phone: [facility] Work Phone: 11-27-2020 15:10-0400 Diastolic blood pressure 79 mm[Hg] Yoni Prolong Work Phone: [facility] Work Phone: 11-27-2020 15:10-0400 Heart rate 98 /min Yoni Prolong Work Phone: [facility] Work Phone: 11-27-2020 15:10-0400 SaO2% (BldA) [Mass fraction] 96 % Yoni Prolong Work Phone: [facility] Work Phone: 11-27-2020 15:10-0400 Systolic blood pressure 138 mm[Hg] Yoni Prolong Work Phone: [facility] Work Phone: 1945 23:00-0500 >na< Quentin Fitzpatrick Dept[facility] matology Encounters Encounter Date Encounter Type Care Provider Facility Start: 08-07-2023 ambulatory Alex Christian acility:[facility] Start: 08-07-2023 Registered Recurring DO Yoni Furlong Work Phone: [facility] Acute Work Phone: Start: 08-07-2023 End: 08-07-2023 ambulatory DO Yoni Furlong Work Phone: [facility] Work Phone: Start: 08-07-2023 End: 08-07-2023 Patient encounter procedure DO Yoni Furlong Work Phone: [facility] Work Phone: Start: 03-06-2023 End: 03-06-2023 ambulatory DO Yoni Furlong Work Phone: [facility] Work Phone: Start: 03-06-2023 End: 03-06-2023 Registered Recurring DO Yoni Furlong [facility] Phone[facility] Work Phone: Start: 01-27-2023 Office outpatient vi sit 25 minutes Kimber Lacy [facility] Start: 01-27-2023 End: 01-27-2023 ambulatory DO Yoni Furlong Work Phone: [facility] Work Phone: Start: 01-27-2023 End: 01-27-2023 Registered Recurring DO Yoni Furlong Work Phone: [facility] Work Phone: Start: 12-30-2022 End: 12-30-2022 ambulatory DO Yoni Furlong Work Phone: [facility] Work Phone: Start: 12-30-2022 End: 12-30-2022 Registered Recurring DO Yoni Furlong Work Phone: [facility] Work Phone: Start: 12-30-2022 End: 12-30-2022 ambulatory DO Yoni Furlong Work Phone: [facility] Work Phone: Start: 12-30-2022 End: 12-30-2022 Registered Recurring DO Yoni Furlong Work Phone: [facility] Work Phone: Start: 10-03-2022 End: 10-04-2022 ambulatory SLY BENSON Facility:[facility]1 Start: 09-08-2022 End: 09-08-2022 ambulatory DO Yoni Furlong Work Phone: [facility] Work Phone: Start: 09-08-2022 End: 09-08-2022 Registered Recurring DO Yoni Furlong Work Phone: [facility] Work Phone: Start: 09-05-2022 End: 09-06-[address] YONI MULLER Facility:[facility]1 Start: 08-11-2022 End: 08-11-2022 ambulatory DO Yoni Furlong Work Phone: [facility] Work Phone: Start: 08-11-2022 End: 08-11-2022 Registered Recurring DO Yoni Furlong Work Phone: [facility] Work Phone: Start: 07-21-2022 End: 07-22-2022 ambulatory SLY BENSON Facility:[facility]1 Start: 06-23-2022 End: 06-23-2022 ambulatory DO Vallejo Furlong Work Phone: [facility] Work Phone: Start: 06-23-2022 End: 06-23-2022 Registered Recurring DO Yoni Furlong Work Phone: [facility] [place] Start: 06-23-2022 End: 06-23-2022 ambulatory DO Yoni Furlong Work Phone: [facility] Work Phone: Start: 06-23-2022 End: 06-23-2022 Registered Recurring DO Yoni Furlong Work Phone: [facility] [place] Start: 06-20-2022 End: 06-21-[address] YONI MULLER Facility:H1 Start: 06-02-2022 End: 06-02-2022 ambulatory DO Yoni Furlong Work Phone: [facility] Work Phone: Start: 06-02-2022 End: 06-02-2022 Registered Recurring DO Yoni Furlong Work Phone: [facility] [place] Start: 05-30-2022 End: 05-31-2022 ambulatory SLY BENSON Facility:H1 Start: 05-13-2022 End: 05-14-2022 ambulatory SLY BENSON Facility:H1 Start: 05-10-2022 End: 05-11-2022 ambulatory SLY BENSON Facility:H1 Start: 05-02-2022 End: 05-02-2022 ambulatory DO Yoni Furlong Work Phone: [facility] Work Phone: Start: 05-02-2022 End: 05-02-2022 Registered Recurring DO Yoni Furlong Work Phone: [facility] [place] Start: 04-28-2022 End: 04-28-2022 Admission to same day surgery center DO Yoni Furlong Work Phone: [facility]Ultrasound [facility] [place] Start: 04-28-2022 End: 04-28-2022 ambulatory DO Yoni Furlong Work Phone: [facility] Work Phone: Start: 04-21-2022 End: 04-21-2022 ambulatory DO Yoni Furlong Work Phone: [facility] Work Phone: Start: 04-21-2022 End: 04-21-2022 Registered Recurring DO Yoni Furlong Work Phone: [facility] Start: 03-26-2022 End: 03-26-2022 Patient encounter procedure DO Yoni Furlong Work Phone: [facility]-CT Scan [facility] [place] Start: 10-25-2021 End: 10-25-2021 Registered Recurring MD Alex Trammell Work Phone: [facility] Start: 10-10-2021 End: 10-10-2021 Patient encounter procedure DO Sly Adamconnoricz II Work Phone: [facility]CT Scan [facility] [place] Start: 10-07-2021 End: 10-07-2021 Registered Recurring DO Sly Adamowicz II Work Phone: [facility] Start: 10-07-2021 Registered Recurring DO Timmarin y Adamowicz II Work Phone: [facility] Start: 09-24-2021 AUDIT Yoni hyatt Work Phone: [facility] Work Phone: Start: 09-23-2021 Chart Update Yoni hyatt Work Phone: [facility] Work Phone: Start: 09-17-2021 Office outpatient ne w 30 minutes Yoni G Furlong Work Phone: [facility]fcad[facility] Work Phone: Start: 09-17-2021 Office outpatient vi sit 15 minutes Yoni Hollowayng Work Phone: BD-Dngqarg-Ouhqm Main Work Phone: Start: 01-22-2021 Office outpatient vi sit 15 minutes Yoni Hollowayng Work Phone: ZF-Qdzsmcq-Golntatz 150 Work Phone: Start: 01-12-2021 AUDIT Yoni Holloway ng Work Phone: [facility] Work Phone: Start: 12-25-2020 Office outpatient vi sit 25 minutes Yoni Muller Work Phone: UP-Qnghhoc-Evihzdjp 150 Work Phone: Start: 12-25-2020 Patient encounter procedure Yoni Muller Work Phone: [facility] Work Phone: Start: 12-17-2020 AUDIT Yoni hyatt Work Phone: RM[facility]ajnci[facility] Work Phone: Start: 12-04-2020 FUV, Provider: Alex Trammell, Status: Pen, Time: 3:00 PM Yoni Muller Work Phone: [facility]jtgna[facility] Work Phone: Start: 12-04-2020 Patient encounter procedure Yoni Muller Work Phone: [facility] Work Phone: Start: 11-27-2020 Postop follow up vis it related to original px Yoni Muller Work Phone: UE[facility]udhdlu[facility]grgzzcM[facility] Work Phone: Start: 11-27-2020 Quentin Fitzpatrick [facility] t[facility] Dermatology Start: 11-13-2020 Quentin Fitzpatrick [facility] Derm[facility] Start: 10-23-2020 Quentin Fitzpatrick [facility] Dermatology Procedures Date Procedure Procedure Detail Performing Clinician Start: 08-06-2023 Computed tomography of abdomen and pelvis with contrast DO Yoni Furlong Work Phone: Start: 08-06-2023 CT of thorax with contrast DO Yoni Furlong Work Phone: Start: 03-05-2023 Computed tomography of abdomen and [...] of abdomen and pelvis with contrast DO Slycm Xiaoicz II Work Phone: Start: 10-10-2021 CT of thorax with contrast DO Sly Adamconnoricz II Work Phone: Start: 11-27-2020 Quentin Fitzpatrick Start: 11-13-2020 Quentin Fitzpatrick Start: 10-23-2020 Quentin Fitzpatrick Counseling Kimber ortiz Other Plan of Treatment Date Care Activity Detail Author Start: 08-07-2023 [facility] Start: 08-06-2023 End: 08-07-2023 [facility] Start: 08-06-2023 Adrenocorticotropic hormone measurement [facility] Start: 07-14-2023 [facility] Start: 07-14-2023 [facility] Start: 06-16-2023 [facility] Start: 05-19-2023 [facility] Start: 04-21-2023 [facility] Start: 03-24-2023 [facility] Start: 02-24-2023 [facility] Start: 01-27-2023 [facility] Start: 01-27-2023 [facility] Start: 12-30-2022 Adrenocorticotropic hormone measurement [facility] Start: 12-30-2022 [facility] Start: 12-30-2022 [facility] Start: 12-25-2022 [facility] Start: 12-01-2022 [facility] Start: 11-03-2022 [facility] Start: 10-06-2022 [facility] Start: 09-08-2022 [facility] Start: 09-08-2022 [facility] Start: 08-11-2022 [facility] Start: 07-23-2022 [facility] Start: 06-23-2022 [facility] Start: 06-23-2022 Adrenocorticotropic hormone measurement [facility] Start: 06-23-2022 [facility] Start: 06-02-2022 [facility] Start: 05-12-2022 End: 05-12-2022 [facility] Start: 05-12-2022 [facility] Start: 04-28-2022 [facility] Start: 04-28-2022 [facility] Start: 04-28-2022 Aspiration [facility] Start: 02-19-2021 FUV, Provider: Alex Trammell, Status: Pen, Time: 3:00 PM FUV, Provider: Alex Trammell, Status: Pen, Time: 3:00 PM PN-Baylavx-Deafpbza 150 Work Phone: Start: 01-22-2021 FUV, Provider: Alex Trammell, Status: Pen, Time: 3:00 PM FUV, Provider: Alex Trammell, Status: Pen, Time: 3:00 PM UM-Enhpvoo-Xztfesxx 150 Work Phone: Start: 12-25-2020 FUV, Provider: Alex Trammell, Status: Pen, Time: 3:00 PM FUV, Provider: Alex Trammell, Status: Pen, Time: 3:00 PM [facility]cmd[facility] Work Phone: Adrenocorticotropic hormone measurement [facility] Adrenocorticotropic hormone measurement [facility] Work Phone: Adrenocorticotropic hormone measurement [facility] Adrenocorticotropic hormone measurement [facility] Adrenocorticotropic hormone measurement [facility] Adrenocorticotropic hormone measurement [facility] Adrenocorticotropic hormone measurement [facility] Adrenocorticotropic hormone measurement [facility] Adrenocorticotropic hormone measurement [facility] Adrenocorticotropic hormone measurement [facility] Basophils [#/volume] in Blood by Automated count [facility] Basophils/100 leukoc ytes in Blood by Automated count [facility] Blood chemistry [facility] Blood chemistry [facility] Comprehensive metabo lic 1999 panel - Serum or Plasma [facility] Comprehensive metabo lic 1999 panel - Serum or Plasma [facility] Comprehensive metabo lic 1999 panel - Serum or Plasma [facility] Comprehensive metabo lic 1999 panel - Serum or Plasma [facility] Comprehensive metabo lic 1999 panel - Serum or Plasma [facility] Comprehensive metabo lic 1999 panel - Serum or Plasma [facility] Comprehensive metabo lic 1999 panel - Serum or Plasma [facility] Comprehensive metabo lic 1999 panel - Serum or Plasma [facility] Comprehensive metabo lic 1999 panel - Serum or Plasma [facility] Comprehensive metabo lic 1999 panel - Serum or Plasma [facility] Computed tomography for radiotherapy planning [facility] Cortisol [Mass/volum e] in Serum or Plasma [facility] Cortisol [Mass/volum e] in Serum or Plasma [facility] Cortisol [Mass/volum e] in Serum or Plasma [facility] Work Phone: Cortisol [Mass/volum e] in Serum or Plasma [facility] Cortisol [Mass/volum e] in Serum or Plasma [facility] CT Abdomen and Pelvi s W contrast IV [facility] CT Abdomen and Pelvi s W contrast IV [facility] CT Abdomen and Pelvi s W contrast IV [facility] CT Abdomen and Pelvi s W contrast IV [facility] CT Chest W contrast IV [facility] CT Chest W contrast IV [facility] CT Chest W contrast IV [facility] CT Chest W contrast IV [facility] Eosinophils/100 leuk ocytes in Blood by Automated count [facility] Erythrocyte distribu tion width [Ratio] by Automated count [facility] Erythrocyte sediment ation rate by Photometric method [facility] Erythrocytes [#/volu me] in Blood [facility] Hematocrit [Volume F raction] of Blood [facility] Hemoglobin [Mass/vol ume] in Blood [facility] Hepatic function panel [facility] Hepatic function panel [facility] Homogenous nuclear A b pattern [Titer] in Serum [facility] Work Phone: Lactate dehydrogenas e [Enzymatic activity/volume] in Unspecified specimen [facility] Lactate dehydrogenas e [Enzymatic activity/volume] in Unspecified specimen [facility] Lactate dehydrogenas e [Enzymatic activity/volume] in Unspecified specimen [facility] Lactate dehydrogenas e [Enzymatic activity/volume] in Unspecified specimen [facility] Lactate dehydrogenas e [Enzymatic activity/volume] in Unspecified specimen [facility] Leukocytes [#/volume ] corrected for nucleated erythrocytes in Blood by Automated coun [facility] Leukocytes [#/volume] in Blood [facility] Lipase measurement [facility] Lipase measurement [facility] Lipase measurement [facility] Lymphocytes [#/volum e] in Blood by Automated count [facility] Lymphocytes/100 leuk ocytes in Blood by Automated count [facility] MCH [Entitic mass] b y Automated count [facility] MCHC [Mass/volume] b y Automated count [facility] MCV [Entitic volume] by Automated count [facility] Monocytes [#/volume] in Blood by Automated count [facility] Monocytes/100 leukoc ytes in Blood by Automated count [facility] Neutrophils [#/volum e] in Blood by Automated count [facility] Neutrophils/100 leuk ocytes in Blood by Automated count [facility] Nuclear Ab [Titer] in Serum [facility] Work Phone: Nucleated erythrocyt es [Presence] in Blood by Automated count [facility] Patient Education [facility] Work Phone: Platelet mean volume [Entitic volume] in Blood by Automated count [facility] Platelets [#/volume] in Blood [facility] Thyrotropin [Units/v olume] in Serum or Plasma [facility] Thyrotropin [Units/v olume] in Serum or Plasma [facility] Thyrotropin [Units/v olume] in Serum or Plasma [facility] Thyrotropin [Units/v olume] in Serum or Plasma [facility] Thyrotropin [Units/v olume] in Serum or Plasma [facility] Thyrotropin [Units/v olume] in Serum or Plasma [facility] Thyrotropin [Units/v olume] in Serum or Plasma [facility] Thyroxine (T4) free [Mass/volume] in Serum or Plasma [facility] Thyroxine (T4) free [Mass/volume] in Serum or Plasma [facility] Work Phone: Thyroxine (T4) free [Mass/volume] in Serum or Plasma [facility] Thyroxine (T4) free [Mass/volume] in Serum or Plasma [facility] Thyroxine (T4) free [Mass/volume] in Serum or Plasma [facility] Thyroxine (T4) free [Mass/volume] in Serum or Plasma [facility] Ultrasonic guidance for needle biopsy [facility] Immunizations Immunization Date Immunization Notes Care Provider Fa cility 1945 pneumococcal conjuga te vaccine, 7 valent Quentin Fitzpatrick [facility] Payers Date Payer Category Payer Self-pay [id number] Private Health Insurance [id number] 1945 Unknown [id number] 1945 Unknown [id number] 1945 Unknown [id number] 1945 Unknown [id number] [id number] 1945 Unknown [id number] 2..[id number] 1945 Unknown [id number] [id number] 1945 Unknown [id number] [id number] 1945 Unknown [id number] [id number] Medicare [id number] Unknown Unknown HCAP/HFA/FAP Active [id number] Unknown [id number] Unknown [id number] Social History Date Type Detail Facility Start: 10-23-2020 Dept. of D ermatology Start: 1945 Sex Assigned At Female F [facility] Start: 10-07-2021 End: 03-06-2023 Tobacco smoking status NHIS Never smoked tobacco (finding) [facility] Sex Assigned At Sex Assigned At Bir th [employer] Other Goals Date Patient Goal Desired Activity /State Clinical Notes 12-04-2012 to 02-13-2023 Note Date & Type Note Facility 02-13-2023 Progress note Note Date/Time January 27, 2023 3:58pm [facility] [address] [place] [address] Progress Note Signed Patient: Theresa Luu MR#: [id number] : 1945 Acct:[id number] Age/Sex: 77 / F Adm Date: 3 Loc: XT Room: Type: [facility] Attending Dr: Sly Benson II DO Copies to: ~ Date of Service: 01/27/2023 Subjective History of Present Illness HPI: Madison is seen during immunotherapy today and we continue our discussion of goals of care/advance care planning. She has reviewed the making choices booklet and is planning to meet with an compliance attorney to complete financial POA and business [...] 18 159/80 H 96 Room Air 01/27/23 10:23 01/27/23 10:23 01/27/23 10:23 01/27/23 10:23 01/27/23 10:23 01/27/23 10:23 Patient was seen by Kristen Lacy, nurse practitioner. I reviewed the above note. Documented By: Kimber Lacy APRN 01/27/23 1556 Signed By: <Electronically signed by ANTOINETTE Lacy> 01/27/23 1558 <Electronically signed by DO Efren Burris> 02/13/23 150 [facility] Work Phone: 1(480) 758-371007-18-2023 Evaluation note* Encounter Date Diagnosis Assessment Notes [...] of the order given to the patient. [employer] Other 06-20-2023 Progress note Author Senia Montez [facility] December 30, 2022 11:06am Note Date/Time December 30, 2022 8:35 am [facility] [place] [address] Hem/Onc Follow Up Note - OP Signed Patient: Theresa Luu MR#: [id number] : 1945 Acct:[id number] Age/Sex: 77 / F Type: REG RCR [...] leg melanoma removed by Dr. Trammell at [facility] in November 162020 with sentinel node [...] and has CT scans scheduled for at [facility]. She is doing well, no major medical [...] for coordination of care (as documented) and kwad-tc-jqde counseling of patient and/or family. [facility] - Medical History Medical History: Medical History [...] <Electronically signed by ANTOINETTE Montez> 12/30/22 1106 [facility] Work Phone: [phone]) 943-573904-24-2023 Progress note Author Sly Benson [facility] November 03, 2022 10:27am Note Date/Time November 03, 2022 10: 22am [facility] [place] [address] Hem/Onc Follow Up Note - OP Signed Patient: Theresa Luu MR#: [id number] : 1945 Acct:[id number] Age/Sex: 77 / F Type: REG RCR [...] Up Instructions: cont monthly nivolumab. f/u with [employer] in 2 months. cbc, cmp, tsh monthly. [...] leg melanoma removed by Dr. Trammell at [facility] in November 162020 with sentinel node [...] and has CT scans scheduled for at [facility]. She is doing well, no major medical [...] for coordination of care (as documented) and ytsd-ul-fylv counseling of patient and/or family. [facility] - Medical History Medical History: Medical History [...] % (Auto) 59.6, Lymph % (Auto) 26.5, Sol[place] % (Auto) 11.2, Eos % (Auto) 1.8, Baso % (Auto) 0.9, Nucleat RBC Rel Count 0.0, Neut # (Auto) 4.0, Lymph # (Auto) 1.8, Solano # (Auto) 0.8, Eos # (Auto) 0.1, [...] by Sly Benson II, DO> 11/03/22 1027 [facility] Work Phone: [phone] 845-825603-27-2023 Progress note Author Zenobia Parker [facility] October 06, 2022 11:42am Note Date/Time October 06, 2022 11: 28am [facility] [place] [id number] Hem/Onc Follow Up Note - OP Signed Patient: Theresa Luu MR#: [id number] : 1945 Acct:[id number] Age/Sex: 77 / F Type: REG RCR Copies to: DO Alex Acuña MD~ Subjective Date/Time of Service: Date of Service: 10/06/2022 Time of Service: 11:27 Chief Complaint: Patient is here today for [...] leg melanoma removed by Dr. Trammell at [facility] in November 162020 with sentinel node [...] and has CT scans scheduled for at [facility]. She is doing well, no major medical [...] 10 point review of systems is negative. [facility] - Medical History Medical History: Medical History [...] for coordination of care (as documented) and rrpe-ks-jerx counseling of patient and/or family. Dictated By: Zenobia Parker APRN DD/ 1127 Signed By: <Electronically signed by ANTOINETTE Parker> 10/06/22 1142 [facility] Work Phone: 1(591) 590-176103-20-2023 Progress note Author Bebeto Pandya [facility] September 29, 2022 1:11pm Note Date/Time September 29, 2022 9:4 5am [facility] [place] [address] Rad Onc Follow Up Note - OP Signed Patient: Theresa Luu MR#: [id number] : 1945 Acct:[id number] Age/Sex: 76 / F Type: REG RCR [...] a left lower leg melanoma removed at [facility] in November 162020 with sentinel node [...] get her first maintenance dose of the Lone Wolf on August 11, [address]. [address] [...] signed by Bebeto Pandya MD> 09/29/22 1311 [facility] Work Phone: 1(567) 339-386702-27-2023 Progress note Author Sly Benson [facility] September 08, 2022 10:18am Note Date/Time September 08, 2022 10:08am [facility] at [address] [address] Hem/Onc Follow Up Note - OP Signed Patient: Theresa Luu MR#: [id number] : 1945 Acct:[id number] Age/Sex: 76 / F Type: REG RCR Copies to: Yoni Larson Yohana,DO Alex Trammell MD~ Date of Service: 09/08/2022 Time of [...] leg melanoma removed by Dr. Trammell at [facility] in November 162020 with sentinel node [...] and has CT scans scheduled for at [facility]. She is doing well, no major medical [...] for coordination of care (as documented) and hjca-hl-yyba counseling of patient and/or family. [facility] - Medical History Medical History: Medical History [...] by Sly Benson II, DO> 09/08/22 1018 [facility] Work Phone: [phone] 150-592501-31-2023 Consult note Author Bebeto Pandya [facility] August 12, 2022 1:39pm Note Date/Time August 12, 2022 8 :51am [facility] [place] [address] Rad Onc Consult Note - OP Signed Patient: Theresa Luu MR#: [id number] : 1945 Acct:[id number] Age/Sex: 76 / F Type: REG RCR Copies to: DO Alex Acuña MD, II, DO~ Assessment & Plan (1) Inguinal adenopathy Plan: CT simulation-plan for palliative radiation to the left inguinal [id number] Luis in 5 fractions delivered every other [...] a left lower leg melanoma removed at [facility] in November 162020 with sentinel node [...] get her first maintenance dose of the Lone Wolf on August 11, 2022. Her repeat CT [...] ibuprofen. She denies any other pelvic complaints. [facility] - Medical History Medical History: Medical History [...] BP 132/68 08/11/22 10:28 Pulse Ox 98 01/30/23 10:28 O2 Del Method Room Air 08/11/22 [...] 7: 08/08/22 09:00 08/08/22 09:00 Dictated By: Bebeto Pandya MD DD/ 0851 Signed By: <Electronically signed by Bebeto Pandya MD> 08/12/22 1339 [facility] Work Phone: [phone]) 892-137601-30-2023 Progress note Author Sly Benson [facility] August 11, 2022 11:03am Note Date/Time August 11, 2022 1 0:48am [facility] [place] [address] Hem/Onc Follow Up Note - OP Signed Patient: Theresa Luu MR#: [id number] : 1945 Acct:[id number] Age/Sex: 76 / F Type: REG RCR [...] leg melanoma removed by Dr. Trammell at [facility] in November 162020 with sentinel node [...] and has CT scans scheduled for at [facility]. She is doing well, no major medical [...] maybe 3 days. worse after hot showers. [employer] really works for this. 08/11/22 She is [...] for coordination of care (as documented) and mpay-hp-tmeq counseling of patient and/or family. [facility] - Medical History Medical History: Medical History [...] % (Auto) 58.6, Lymph % (Auto) 29.6, Solano % (Auto) 9.0, Eos % (Auto) 2.1, Baso % (Auto) 0.7, Nucleat RBC Rel Count 0.1, Neut # (Auto) 4.4, Lymph # (Auto) 2.2, Solano # (Auto) 0.7, Eos # (Auto) 0.2, [...] by Sly Benson II, DO> 08/11/22 1103 [facility] Work Phone: 1(342) 727-631712-12-2022 Progress note Author Sly Benson [facility] June 23, 2022 11:22am Note Date/Time June 23, 2022 11:18am [facility] at [address] [address] Hem/Onc Follow Up Note - OP Signed Patient: Theresa Luu MR#: [id number] : 1945 Acct:[id number] Age/Sex: 76 / F Type: REG RCR Copies to: Yoni DO Alex Brown MD~ Date of Service: 06/23/2022 Time of [...] leg melanoma removed by Dr. Trammell at [facility] in November 162020 with sentinel node [...] and has CT scans scheduled for at [facility]. She is doing well, no major medical [...] for coordination of care (as documented) and evih-xm-hpvw counseling of patient and/or family. [facility] - Medical History Medical History: Medical History [...] by Sly Benson II, DO> 06/23/22 1122 [facility] Work Phone: [phone]) 286-428112-12-2022 Progress note Author Sly Benson [facility] June 23, 2022 11:22am Note Date/Time June 23, 2022 11:18am [facility] [place] [address] Hem/Onc Follow Up Note - OP Signed Patient: Theresa Luu MR#: [id number] : 1945 Acct:[id number] Age/Sex: 76 / F Type: REG RCR [...] leg melanoma removed by Dr. Trammell at [facility] in November 162020 with sentinel node [...] and has CT scans scheduled for at [facility]. She is doing well, no major medical [...] for coordination of care (as documented) and xazr-rs-ckpu counseling of patient and/or family. [facility] - Medical History Medical History: Medical History [...] by Sly Benson II, DO> 06/23/22 1122 [facility] Work Phone: [phone] 464-888511-21-2022 Progress note Author Zenobia Parker [facility] June 02, 2022 11:05am Note Date/Time June 02, 2022 11:01am [facility] at [address] [place] [address] Hem/Onc Follow Up Note - OP Signed Patient: Theresa Luu MR#: [id number] : 1945 Acct:[id number] Age/Sex: 76 / F Type: REG RCR Copies to: Yoni DO Alex Brown MD~ Subjective Date/Time of Service: Date of Service: 06/02/2022 Time of Service: 10:58 Chief Complaint: Patient is here today for a one month follow up visit for melanoma. No new concerns HPI: 76-year-old female referred for melanoma primary patient of Yoni Mluler, pastmedical history includes essential hypertension, basal cell carcinoma on her upper back in September 2020hyperlipidemia, malignant tumor of the breast in September 1996 on the left side she had a mastectomy with no chemotherapy or radiation. Outpatient medications include hydrochlorothiazide and simvastatin. She initially had a left lower leg melanoma removed by Dr. Trammell at [facility] in November 162020 with sentinel node [...] and has CT scans scheduled for at [facility]. She is doing well, no major medical [...] for coordination of care (as documented) and rqvl-ln-axhk counseling of patient and/or family. Dictated By: Zenobia Parker APRN DD/ 1058 Signed By: <Electronically signed by ANTOINETTE Parker> 06/02/22 110 [facility] Work Phone: [phone] 201-139211-21-2022 Progress note Author Zenobia Parker [facility] June 02, 2022 11:05am Note Date/Time June 02, 2022 11:01am [facility] at [address] [address] Hem/Onc Follow Up Note - OP Signed Patient: Theresa Luu MR#: [id number] : 1945 Acct:[id number] Age/Sex: 76 / F Type: REG RCR [...] leg melanoma removed by Dr. Trammell at [facility] in November 162020 with sentinel node [...] and has CT scans scheduled for at [facility]. She is doing well, no major medical [...] 10 point review of systems is negative. [facility] - Medical History Medical History: Medical History [...] for coordination of care (as documented) and xbfq-ce-nvct counseling of patient and/or family. Dictated By: Zenobia Parker APRN DD/ 1058 Signed By: <Electronically signed by ANTOINETTE Parker> 06/02/22 1104 [facility] Work Phone: [phone] 240-298310-21-2022 Progress note Author Sly Benson [facility] May 02, 2022 4:01pm Note Date/Time May 02, 2022 3 :52pm [facility] [place] [address] Hem/Onc Follow Up Note - OP Signed Patient: Theresa Luu MR#: [id number] : 1945 Acct:[id number] Age/Sex: 76 / F Type: REG RCR [...] female referred for melanoma primary patient of oYni Muller, pastmedical history includes essential hypertension, basal cell carcinoma on her upper back in September 2020hyperlipidemia, malignant tumor of the breast in September 1996 on the left side she had a mastectomy with no chemotherapy or radiation. Outpatient medications include hydrochlorothiazide and simvastatin. She initially had a left lower leg melanoma removed by Dr. Trammell at [facility] in November 162020 with sentinel node [...] and has CT scans scheduled for at [facility]. She is doing well, no major medical [...] for coordination of care (as documented) and ltne-mb-esgn counseling of patient and/or family. [facility] - Medical History Medical History: Medical History [...] by Sly Benson II, DO> 05/02/22 1601 [facility] Work Phone: [phone] Progress note Author Sly Benson [facility] May 02, 2022 4:01pm Note Date/Time May 02, 2022 3 :52pm [facility] [place] [address] Hem/Onc Follow Up Note - OP Signed Patient: Theresa Luu MR#: [id number] : 1945 Acct:[id number] Age/Sex: 76 / F Type: REG RCR [...] leg melanoma removed by Dr. Trammell at [facility] in November 162020 with sentinel node [...] and has CT scans scheduled for at [facility]. She is doing well, no major medical [...] for coordination of care (as documented) and fuze-mw-ggdn counseling of patient and/or family. [facility] - Medical History Medical History: Medical History [...] by Sly Benson II, DO> 05/02/22 1601 [facility] Work Phone: [phone] 650-701410-15-2022 Progress note Author Sly Benson [facility] April 26, 2022 11:51am Note Date/Time April 21, 2022 9 :31am [facility] at [address] [address] Hem/Onc Follow Up Note - OP Signed Patient: Theresa Luu MR#: [id number] : 1945 Acct:[id number] Age/Sex: 76 / F Type: REG RCR Copies to: DO Alex Acuña MD~ Date of Service: 04/21/2022 Time of [...] 4 doses per trial Cornelius et neal [place] 2019 Repeat imaging in September 2021 [...] referred for melanoma primary patient of Yoni Furlong, pastmedical history includes essential hypertension, basal cell carcinoma on her upper back in September 2020hyperlipidemia, malignant tumor of the breast in September 1996 on the left side she had a mastectomy with no chemotherapy or radiation. Outpatient medications include hydrochlorothiazide and simvastatin. She initially had a left lower leg melanoma removed by Dr. Trammell at [facility] in November 162020 with sentinel node [...] and has CT scans scheduled for at [facility]. She is doing well, no major medical [...] for coordination of care (as documented) and hifq-az-lokz counseling of patient and/or family. [facility] - Medical History Medical History: Medical History [...] signed by Sly Benson II, DO> 04/26/22 1157 [facility] Work Phone: [phone] 802-668910-15-2022 Progress note Author Sly Benson [facility] April 26, 2022 11:51am Note Date/Time April 21, 2022 9 :31am [facility] [place] [address] Hem/Onc Follow Up Note - OP Signed Patient: Theresa Luu MR#: [id number] : 1945 Acct:[id number] Age/Sex: 76 / F Type: REG RCR Copies to: DO Alex Acuña MD~ Date of Service: 04/21/2022 Time of [...] 4 doses per trial Cornelius et neal NEJ 2018 Repeat imaging in September 2021 showed no [...] leg melanoma removed by Dr. Trammell at [facility] in November 162020 with sentinel node [...] and has CT scans scheduled for at [facility]. She is doing well, no major medical [...] for coordination of care (as documented) and qvbj-yo-egtf counseling of patient and/or family. [facility] - Medical History Medical History: Medical History [...] by Sly Benson II, DO> 04/26/22 1151 [facility] Work Phone: [phone]) [phone] Progress note Author Sly Benson [facility] November 04, 2021 7:49pm Note Date/Time October 25, 2021 9:5 8am [facility] [place] [address] Hem/Onc Follow Up Note - OP Signed Patient: Theresa Luu MR#: [id number] : 1945 Acct:[id number] Age/Sex: 76 / F Type: REG RCR [...] leg melanoma removed by Dr. Trammell at [facility] in November 162020 with sentinel node [...] and has CT scans scheduled for at [facility]. She is doing well, no major medical [...] for coordination of care (as documented) and cnfh-rf-jfeg counseling of patient and/or family. [facility] - Medical History Medical History: Medical History [...] signed by Sly Benson II, DO> 11/04/211948 [facility] Work Phone: 1(291) 520-365004-25-2022 Progress note Author Sly Benson [facility] November 04, 2021 7:49pm Note Date/Time October 25, 2021 9:5 8am [facility] [place] [id number] Hem/Onc Follow Up Note - OP Signed Patient: Theresa Luu MR#: [id number] : 1945 Acct:[id number] Age/Sex: 76 / F Type: REG RCR Copies to: Yoni Larson Jeweledmar,DO Alex Trammell MD~ Date of Service: 10/25/2021 Time of [...] leg melanoma removed by Dr. Trammell at [facility] in November 162020 with sentinel node [...] and has CT scans scheduled for at [facility]. She is doing well, no major medical [...] for coordination of care (as documented) and oqjr-dk-sgci counseling of patient and/or family. [facility] - Medical History Medical History: Medical History [...] Dictated By: Sly Benson II, DO DD/ Signed By: <Electronically signed by Sly Benson II, DO> 11/04/211948 [facility] Work Phone: 1(694) 617-578603-28-2022 Progress note Author Sly Benson [facility] October 07, 2021 8:58am Note Date/Time October 07, 2021 8:2 8am [facility] [place] [address] Hem/Onc Follow Up Note - OP Signed Patient: Theresa Luu MR#: [id number] : 1945 Acct:[id number] Age/Sex: 76 / F Type: REG RCR Copies to: DO Alex Acuña MD~ Date of Service: 10/07/2021 Time of Service: : - Assessment & Plan (1) Melanoma Plan: [...] leg melanoma removed by Dr. Trammell at [facility] in November 162020 with sentinel node [...] and has CT scans scheduled for at [facility]. She is doing well, no major medical [...] for coordination of care (as documented) and ijrx-zm-zdds counseling of patient and/or family. [facility] - Medical History Medical History: Medical History [...] <Electronically signed by Sly Benson II, DO> 10/07/21857 [facility] Work Phone: [phone]) 472-268603-28-2022 Progress note Author Sly Benson [facility] October 07, 2021 8:58am Note Date/Time October 07, 2021 8:2 8am [facility] at [address] [address] Hem/Onc Follow Up Note - OP Signed Patient: Theresa Luu MR#: [id number] : 1945 Acct:[id number] Age/Sex: 76 / F Type: REG RCR [...] leg melanoma removed by Dr. Trammell at [facility] in November 162020 with sentinel node [...] and has CT scans scheduled for at [facility]. She is doing well, no major medical [...] for coordination of care (as documented) and mfjq-ln-vkuh counseling of patient and/or family. [facility] - Medical History Medical History: Medical History [...] by Sly Benson II, DO> 10/07/21 0858 [facility] Work Phone: 1([phone]) 549-747805-07-2021 NotePROCEDURE DETAILS Preoperative Diagnosis: Melanoma of lower limb, C43.70 Postoperative Diagnosis: left lower leg me\lanoma Surgeon: Alex Trammell Resident/Fellow/Other Charging Manipulator: Bambi Ray Muhammad Procedure: 1. WIDE LOCAL [...] Aguilar MD Furlong, Dennis G, MD - [phone] [] Signatures/Attestation: Note Completion: Attending AttestationI was present for the entire procedure Electronic Signatures: Alex Trammell) (Signed 16-Nov-2020 14:13) Authored: Post-Operative Note, Chart Review, Note Completion Last Updated: 16-Nov-2020 14:13 by Alex Trammell)[facility] 11-16-2020 NoteHistory & Physical Reviewed: I have [...] the note. I personally evaluated the patient [id number] Attending Provider Inpatient Certification StatementObservation patient/other outpatient visits Electronic Signatures: Alex Trammell) (Signed 16-Nov-2020 13:12) Authored: Note Completion Co-Signer: History & Physical Reviewed, ERAS, Consent, Note Completion Ct Tinsley (Resident)) (Signed 16-Nov-2020 10:36) Authored: History & Physical Reviewed, ERAS, Consent, Note Completion Last Updated: 16-Nov-2020 13:12 by Alex Trammell)[facility] 10-16-2020 NoteAccession #: [id number] Pathologist: SURAJ MELGAR MD Date of Procedure: 10/16/2020 Date Received: 10/16/2020 Submitting Physician: ALEX TRAMMELL MD Location: [facility] Copy To/Referring/Attending: QUENTIN FITZPATRICK DO FINAL DIAGNOSIS 4 SLIDES, [facility], #[id number] [A] (BX: 09/28/2020) SKIN, LEFT DISTAL PRETIBIAL [...] REPORT A. 4 SLIDES, [facility], #[id number] [A] (BX: 09/28/2020): SPECIMEN Procedure: Biopsy, shave [...] ADDITIONAL FINDINGS Additional Findings: None ADDITIONAL TESTING REGRINDER BLOCKS: Normal Block: None Tumor Block: A1, A2 Electronically Signed Out By SURAJ MELGAR MD/MICHAEL Clinical History: A) 2.2CM NODULE, NEOPLASM OF UNCERTAIN BEHAVIOR VS SQUAMOUS CELL CARCINOMA Specimens Submitted As: A: 4 SLIDES, [facility], #[id number] [A] (BX: 09/28/2020) Gross Description: Received for consultation from [facility] are four slides labeled [id number] [A] (BX: 09/28/2020) along with the corresponding pathology report. Slides received on specimen A only. Slide/Block Description 4 SLIDES, [id number] A. Keep Slides: N Slides Returned: N [facility]:Performed By: #### D #### [id number] History general Narrative - Reported* Type Description Date Medical History breast cancer (1996) Medical History HTN Medical History hyperlipidemia Medical History basal cell carcinoma upper back (September 2020) Medical History metastatic malignant melanoma [employer] Other 04-20-2014 History of Present illness Narrative* [...] in a prior mole. 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 As [...] the knee to the foot. 1+ edema. [facility] Main Work Phone: 1(606) 450-793603-14-2014 History of Present illness Narrative* Ms. Luu [...] in a prior mole. 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 As [...] the knee to the foot. 1+ edema. [facility] Work Phone: 1([phone]) 616-368707-15-2013 History of Present illness Narrative* Ms. Luu [...] in a prior mole. Thepatient moved from [place] 8 years ago and has not established [...] the knee to the foot. 1+ edema. DD-Hndpmuz[facility] Work Phone: 1([phone]) 217-914606-16-2013 History of Present illness Narrative* Ms. Luu [...] in a prior mole. Thepatient moved from [place] 8 years ago and has not established [...] the knee to the foot. 2+ edema. VF-Xwxnqjg-Weukgnpr [facility] Work Phone: 1([phone]) [phone] History of Present illness Narrative* Ms. Luu [...] in a prior mole. Thepatient moved from [place] 8 years ago and has not established [...] the knee to the foot. 2+ edema. [facility] Work Phone: evaluation noteN/ADept. of Dermatology Evaluation note* Diagnosis Onset Date Resolution Status Melanoma acute [facility] Work Phone: Evaluation noteNo assessment information available [facility] Work Phone: Evaluation note* Diagnosis Onset Date Resolution Status Melanoma acute Inguinal adenopathy acute [facility] Work Phone: Evaluation note* Diagnosis Onset Date Resolution Status Inguinal adenopathy acute Melanoma acute [facility] Work Phone: evaluation note* Diagnosis Onset Date Resolution Status Encounter for antineoplastic immunotherapy acute Inguinal adenopathy acute Melanoma acute [facility] Work Phone: Evaluation note* Diagnosis Onset Date Resolution Status Melanoma acute Encounter for antineoplastic immunotherapy acute Inguinal adenopathy acute Melanoma acute [facility] Work Phone: Hospital Discharge instructionsAmbulatory Orders* Chemotherapy Class Time Frame: 1 Day, Location: Determined By Patient [facility] Work Phone: Hospital Discharge instructionsAmbulatory Orders* Oncology Histology Time Frame: 1 Day, Location: Determined By Patient [facility] Work Phone: Progress note Author Sly Benson [facility] May 02, 2022 4:01pm Note Date/Time May 02, 2022 3 :52pm [facility] at [address] [address] Hem/Onc Follow Up Note - OP Signed Patient: Theresa Luu MR#: [id number] : 1945 Acct:[id number] Age/Sex: 76 / F Type: REG RCR Copies to: Yoni Muller DO Alex Trammell MD~ Date of Service: 05/02/2022 Time of [...] leg melanoma removed by Dr. Trammell at [facility] in November 162020 with sentinel node [...] and has CT scans scheduled for at [facility]. She is doing well, no major medical [...] for coordination of care (as documented) and cgch-mw-voxg counseling of patient and/or family. [facility] - Medical History Medical History: Medical History [...] by Sly Benson II, DO> 05/02/22 1601 [facility] Work Phone: Progress note Author Zenobia Parker [facility] June 02, 2022 11:05am Note Date/Time June 02, 2022 11:01am [facility] at [address] [address] Hem/Onc Follow Up Note - OP Signed Patient: Theresa Luu MR#: [id number] : 1945 Acct:[id number] Age/Sex: 76 / F Type: REG RCR Copies to: Yoni Muller DO Alex Trammell MD~ Subjective Date/Time of Service: Date of [...] leg melanoma removed by Dr. Trammell at [facility] in November 162020 with sentinel node [...] and has CT scans scheduled for at [facility]. She is doing well, no major medical [...] for coordination of care (as documented) and qcqk-wz-cqhe counseling of patient and/or family. Dictated By: Zenobia Parker APRN DD/ 1058 Signed By: <Electronically signed by ANTOINETTE Parker> 06/02/22 1105 [facility] Work Phone: Progress note Author Sly Benson [facility] June 23, 2022 11:22am Note Date/Time June 23, 2022 11:18am [facility] [place] [address] Hem/Onc Follow Up Note - OP Signed Patient: Theresa Luu MR#: [id number] : 1945 Acct:[id number] Age/Sex: 76 / F Type: REG RCR [...] leg melanoma removed by Dr. Trammell at [facility] in November 162020 with sentinel node [...] and has CT scans scheduled for at [facility]. She is doing well, no major medical [...] for coordination of care (as documented) and phgz-ni-czgl counseling of patient and/or family. [facility] - Medical History Medical History: Medical History [...] by Sly Benson II, DO> 06/23/22 1122 [facility] Work Phone: Progress note Author Sly Benson [facility] August 11, 2022 11:03am Note Date/Time August 11, 2022 1 0:48am [facility] at [address] [address] Hem/Onc Follow Up Note - OP Signed Patient: Theresa Luu MR#: [id number] : 1945 Acct:[id number] Age/Sex: 76 / F Type: REG RCR [...] leg melanoma removed by Dr. Trammell at [facility] in November 162020 with sentinel node [...] and has CT scans scheduled for at [facility]. She is doing well, no major medical [...] for coordination of care (as documented) and dxky-wl-hcue counseling of patient and/or family. [facility] - Medical History Medical History: Medical History [...] % (Auto) 58.6, Lymph % (Auto) 29.6, Solano % (Auto) 9.0, Eos % (Auto) 2.1, Baso % (Auto) 0.7, Nucleat RBC Rel Count 0.1, Neut # (Auto) 4.4, Lymph # (Auto) 2.2, Solano # (Auto) 0.7, Eos # (Auto) 0.2, [...] by Sly Benson II, DO> 08/11/22 1103 [facility] Work Phone: Progress note Author Sly Benson [facility] September 08, 2022 10:18am Note Date/Time September 08, 2022 10:08am [facility] [place] [address] Hem/Onc Follow Up Note - OP Signed Patient: Theresa Luu MR#: [id number] : 1945 Acct:[id number] Age/Sex: 76 / F Type: REG RCR [...] leg melanoma removed by Dr. Trammell at [facility] in November 162020 with sentinel node [...] and has CT scans scheduled for at [facility]. She is doing well, no major medical [...] for coordination of care (as documented) and esol-lv-pgjt counseling of patient and/or family. [facility] - Medical History Medical History: Medical History [...] by Sly Benson II, DO> 09/08/22 1018 [facility] Work Phone: Progrxco note Author [facility] December 30, 2022 11:06am Note Date/Time December 30, 2022 8:35 am [facility] [place] [address] Hem/Onc Follow Up Note - OP Signed Patient: Theresa Luu MR#: [id number] : 1945 Acct:[id number] Age/Sex: 77 / F Type: REG RCR [...] leg melanoma removed by Dr. Trammell at [facility] in November 162020 with sentinel node [...] and has CT scans scheduled for at [facility]. She is doing well, no major medical [...] for coordination of care (as documented) and fzdk-de-wvjj counseling of patient and/or family. [facility] - Medical History Medical History: Medical History (Last Reviewed 04/28/22 @ 08:09 by Bonnie Auxter, RN) Basal cell carcinoma left mid upper [...] <Electronically signed by ANTOINETTE Montez> 12/30/22 1106 [facility] Work Phone: Progress note Author Sly Benson [facility] March 06, 2023 2:40pm Note Date/Time March 06, 2023 2: 37pm [facility] at [address] [address] Hem/Onc Follow Up Note - OP Signed Patient: Theresa Luu MR#: [id number] : 1945 Acct:[id number] Age/Sex: 77 / F Type: REG RCR Copies to: Yoni DO Alex Brown MD~ Date of Service: 03/06/2023 Time of [...] leg melanoma removed by Dr. Trammell at [facility] in November 162020 with sentinel node [...] and has CT scans scheduled for at [facility]. She is doing well, no major medical [...] for coordination of care (as documented) and bkmp-ww-jwll counseling of patient and/or family. [facility] - Medical History Medical History: Medical History [...] % (Auto) 66.0, Lymph % (Auto) 23.1, Solano % (Auto) 8.4, Eos % (Auto) 1.7, Baso % (Auto) 0.8, Nucleat RBC Rel Count 0.0, Neut # (Auto) 4.1, Lymph # (Auto) 1.4, Solano # (Auto) 0.5, Eos # (Auto) 0.1, [...] by Sly Benson II, DO> 03/06/23 1440 [facility] Work Phone: Progress note Author Sly Benson [facility] August 07, 2023 11:49am Note Date/Time August 07, 2023 1 1:21am [facility] [place] [address] Cancer Center Note Signed Patient: Theresa Luu MR#: [id number] : 1945 Acct:[id number] Age/Sex: 77 / F Type: REG AMB Copies to: Yoni Muller DO~ Assessment & Plan A/P (1) Melanoma: Plan: Metastatic stage IV melanoma - BRAF negative recurrent in mar 2022, originally T4bN1a stage [...] concerns. february 2023 ct imaging with continued response, minimal overall disease. Completed palliative XRT to left inguinal fossa/lymph node in August 2022 withdramatic decrease in size No immunotherapy related toxicities - denies skin rash, diarrhea, stable laboratories No recent infections, cough, chest pain, SOB or weight loss, no new skin lesions Patient Instructions: continue opdivo cbc, cmp, tsh, ft4 on treatment days. follow up in [address] C/A/P with contrast CBC, CMP BG done. ta CHEMO PLAN Treatment Plan Nivolumab (Opdivo) 480mg Q28D Clinical Indication No Indication Cycle Number Last Admin Cycle Day Next Admin No Active Chemotherapy History of Present Illness HPI 77-year-old female referred for melanoma primary patient of [...] leg melanoma removed by Dr. Trammell at [facility] in November 162020 with sentinel node [...] and has CT scans scheduled for at [facility]. She is doing well, no major medical [...] nodes, persistent necrotic unchanged L iliac nodes. Intake Vitals/Pain Assessment 08/07/23 11:24 Weight 89.358 kg BP 151/70 H Blood Pressure Location Rt brachial Position Sitting Temp 98.2 F Temp Source Temporal Pulse 88 Pulse Source NIBP Respiration 18 Pulse Oximetry (%) 98 Oxygen Delivery Method room air Are you having pain? No Intake Visit Reasons: Melanoma Accompanied by: Friend Allergies Penicillins Allergy (Verified 08/07/23 11:27) Unknown Reaction - Last Reconciled 08/07/23 by Sheyla Espinoza hydrochlorothiazide 25 mg PO DAILY rosuvastatin 10 mg PO DAILY PHQ-2/9 In last 2 wks how often bothered by any of these problems? Little interest or pleasure in doing things: not at all Feeling down, depressed, or hopeless: not at all PHQ-2 Total Score: 0 Gastrointestinal Is the patient taking opioids for pain control?: No Bowel Protocol for Opioids Given: No Bowel Pattern: Regular Bowel Movement Aid(s): None Falls Fall Precaution Measures Taken: Patient in chair Nurse's Note: Patient is here for a 5 month follow up with labs and imaging for review. [facility] Medical History Medical History Malignant tumor of breast Hyperlipidemia Skin graft disorder Cellulitis Essential hypertension Malignant melanoma left distal lower anterior leg Basal cell carcinoma left mid upper back Surgical History Surgical History H/O left mastectomy Family History Family History Other No significant family history Social History Social History Smoking status: Never smoker Dictated By: Sly Benson II, DO DD/ 1119 Signed By: <Electronically signed by Sly Benson II, > 08/07/[address] [facility] Work Phone: Reason for referral (narrative)* Name Reason for referral NA NA Dept. of Dermatology Assessments N/A Reason for Referral Name Reason for referral NA NA Summary Purpose Family History No Family [...] for antine oplastic immunotherapy Inguinal adenopathy Melanoma Chief Complaint Melanoma Reason for Visit Melanoma Encounter for antineoplastic immunotherapy Inguinal adenopathy Melanoma Additional Source Comments INFORMATION SOURCE (unrecogn ized section and content) DATE CREATED AUTHOR [facility]07/[facility] DATE CREATED AUTHOR AUTHOR'S ORGANIZ ATION 12/04/2020 [facility] DATE CREATED AUTHOR AUTHOR'S ORGANIZ ATION 12/10/2020 [facility] DATE CREATED AUTHOR AUTHOR'S ORGANIZ ATION 05/12/2021 [facility] DATE CREATED AUTHOR AUTHOR'S ORGANIZ ATION 09/23/2021 [facility] DATE CREATED AUTHOR AUTHOR'S ORGANIZ ATION 09/28/2021 [facility] DATE CREATED AUTHOR AUTHOR'S ORGANIZ ATION 10/06/2022 [facility] DATE CREATED AUTHOR AUTHOR'S ORGANIZ ATION 08/29/2023 [facility] Care Teams (unrecognized sec tion and content) Team Status: Active Member Role Status Dates Yoni Muller , DO Primary Care Provider Active Team Status: Inactive Member Role Status Dates Yonijanee Muller , DO Primary Care Provider Active Start: August 07, 2023 End: August 07, 2023 Sly Benson II, DO Attending Provider Active Start: August 07, 2023 End: August 07, 2023 Team Status: Active Member Role Status Dates Sly Benson II, DO Attending Provider Active Start: August 07, 2023 Yoni Muller , DO Primary Care Provider Active Start: August 07, 2023 Alex Trammell MD Referring Provider Active Start: August 07, 2023 Team Status: Active Member Role Status Dates Sly Benson II, DO Attending Provider Active Yoni Muller , DO Primary Care Provider Active Alex Trammell MD Referring Provider Active Team Status: Inactive Member Role Status Dates Alex Trammell MD Attending Provider Active Yoni Muller , DO Primary Care Provider Active Team Status: Inactive Member Role Status Dates Yoni Muller , DO Primary Care Provider Active Alex Trammell MD Attending Provider Active Team Status: Inactive Member Role Status Dates Yonijanee Hollowayng , DO Primary Care Provider Active Sly [...] content) Pt here for [facility] up [facility]. Advanced care planning discussed / finish paperwork [...] BE BASED ON THE PRIMARY CLINICAL RECORDS. [email or web address] provides no warranty or guarantee of the accuracy or completeness of information in this document.
[2023-09-02 07:51] LABS: Basophils Percent Auto 0.8 % (0.2-2.0); Eosinophils Absolute Auto 0.1 10^3/uL (0.0-0.7); Eosinophils Percent Auto 2.4 % (0.9-7.0); Hematocrit 40.9 % (36.0-48.0); Hemoglobin 13.4 g/dL (12.0-16.0); Immature Granulocytes Abs Auto 0.02 10^3/uL (0.00-0.03); Immature Granulocytes Pct Auto 0.4 % (0.0-0.5); Lymphocytes Absolute Auto 1.7 10^3/uL (1.2-3.8); Lymphocytes Percent Auto 32.5 % (20.5-60.0); Mean Corpuscular HGB Conc 32.8 g/dL (29.9-35.2); Mean Corpuscular Volume 91.5 fL (81.0-99.0); Mean Platelet Volume 8.9 fL (9.5-13.5); Monocytes Absolute Auto 0.5 10^3/uL (0.3-0.8); Monocytes Percent Auto 9.8 % (1.7-12.0); Neutrophils Absolute Auto 2.9 10^3/uL (1.4-6.5); Neutrophils Percent Auto 54.1 % (43.0-75.0); Platelet Count 194 10^3/uL (150-450); Red Blood Count 4.47 10^6/uL (4.20-5.40); Red Cell Distribution Width 12.6 % (11.0-15.0); White Blood Count 5.3 10^3/uL (4.0-11.0)
[2023-09-02 08:56] LABS: Free T4 1.19 ng/dL (0.76-1.46)
[2023-09-02 09:11] LABS: Alanine Aminotransferase 33 U/L (14-59); Albumin Globulin Ratio 0.9; Albumin Level 3.4 g/dL (3.4-5.0); Alkaline Phosphatase 111 U/L (46-116); Anion Gap 10.4; Aspartate Amino Transferase 23 U/L (15-37); BUN Creatinine Ratio 20.9; Bilirubin Total 0.4 mg/dL (0.2-1.0); Calcium 8.9 mg/dL (8.5-10.1); Carbon Dioxide 30.9 mmol/L (21.0-32.0); Chloride 103 mmol/L (98-107); Estimated GFR (African America >60 (>=60); Estimated GFR (Non-African Ame >60 (>=60); Globulin 3.6 g/dL; Glucose 90 mg/dL (74-106); Lactate Dehydrogenase 180 U/L (81-234); Potassium 3.3 mmol/L (3.5-5.1); Sodium 141 mmol/L (136-145); Thyroid Stimulating Hormone 2.316 uIU/mL (0.358-3.740)
[2023-09-03 13:10] LABS: ACTH, Plasma 29.9 pg/mL (7.2-63.3)
== END 2023-09-02 07:31 | disposition home or self-care (01) ==
PROVIDERS: PCP Family Medicine; Visit Provider Internal Medicine
DX: C43.9 Malignant melanoma of skin, unspecified (principal)
CPT/HCPCS: 36415; 80053; 82024; 83615; 84439; 84443; 85025

== ENCOUNTER 2023-09-23 09:04 | Emergency (ER) | payer MEDICARE, SELFPAY ==
[2023-09-23 09:14] VITALS: BP 141/63; PULSE 92; RESP 15; TEMP 36.3; O2SAT 96; BMI 33.7
--- OUTSIDE RECORDS SUMMARY | 2023-09-23 09:16 | XMS_ITS | CCD ---
Author Name Unknown Address [address] [facility] [address] [place] [address] Organization [facility] Care Team Providers Care Managing Consultant Name Role Phone Quentin Fitzpatrick Unavailable Unavailable Yoni Muller Unavailable Unavailable Unavailable Quentin Fitzpatrick Unavailable Unavailable DO Sly Benson II Attending Provider Yohana, DO Yoni Primary Care Provider MD Alex Trammell Referring Provider DO Sly Benson II Attending Provider Yohana, DO Yoni Primary Care Provider MD Alex Trammell Referring Provider [phone] MD Alex Trammell Attending Provider Yohana, DO Yoni Primary Care Provider [phone] DO Sly Benson II Attending Provider MD Alex Trammell Referring Provider Yohana, DO Yoni Primary Care Provider MD Alex Trammell Attending Provider DO Sly Benson II Attending Provider MD Alex Trammell Referring Provider [phone] DO Sly Benson II Attending Provider MD Alex Trammell Referring Provider Furlong, DO Yoni Primary Care Provider [phone] MD Alex Trammell Attending Provider Adamowicz II, DO Sly J Attending Provider MD Alex Trammell Referring Provider MD Alex Trammell Referring Provider MD Alex Trammell Referring Provider Adamhilario II, DO Sly J Attending Provider Furlong, DO Yoni Primary Care Provider MD Alex Trammell Referring Provider Adamhilario II, DO Sly J Attending Provider Furlong, DO Yoni Primary Care Provider MD Alex Trammell Referring Provider Adamhilario II, DO Sly J Attending Provider Furlong, DO Yoni Primary Care Provider [phone] MD Alex Trammell Referring Provider HERLINDA BENSONOTHY J Admitting Unavailable FURLONG, DR YONI Larson Primary Care Unavailable ADAMOWICZ, SLY J Consulting Unavailable DAVIDOWICZ, SLY J Attending Unavailable FURLONG, DR YONI Larson Primary Care Unavailable ADAMOWICZ, SLY J Admitting Unavailable ADAMOWICZ, SLY J Consulting Unavailable DAVIDOWICZ, SLY J Attending Unavailable ADAMOWICZ, SLY J Attending Unavailable FURLONG, DR YONI Larson Primary Care Unavailable ADAMOWICZ, SLY J Admitting Unavailable ADAMOWICZ, SLY J Consulting Unavailable FURLONG, DR YONI Larson Consulting Unavailable FURLONG, DR YONI Larson Attending Unavailable FURLONG, DR YONI Larson Admitting Unavailable FURLONG, DR YONI Larson Primary Care Unavailable DAVIDOWICZ, SLY J Attending Unavailable DAVIDOWICZ, SLY J Admitting Unavailable ADAMOWICZ, SLY J Consulting Unavailable FURLONG, DR YONI Larson Primary Care Unavailable ADAMOWICZ, SLY J Attending Unavailable ADAMOWICZ, SLY J Admitting Unavailable ADAMOWICZ, SLY J Consulting Unavailable FURLOHUMBERTO, DR YONI Larson Primary Care Unavailable ADAMOWICZ, SLY J Attending Unavailable ADAMOWICZ, SLY J Admitting Unavailable ADAMOWICZ, SLY J Consulting Unavailable ADAMOWICZ, SLY J Attending Unavailable ADAMOWICZ, SLY J Admitting Unavailable ADAMOWICZ, SLY J Consulting Unavailable Adamowicz II, DO Sly J Attending Provider Furlong, DO Yoni Primary Care Provider MD Alex Trammell Referring Provider Dameonicz II, DO Sly Jeffrey Attending Provider [phone] Furlong, DO Yoni Primary Care Provider [phone] MD Alex Trammell Referring Provider Kimber Lacy Unavailable Davidowicz II, DO Sly Jeffrey Attending Provider Furlong, DO Yoni Primary Care Provider MD Alex Trammell Referring Provider Dameonicz II, DO Sly Jeffrey Attending Provider Mortezalong, DO Yoni Primary Care Provider [phone] MD Alex Trammell Referring Provider Dameonicz II, DO Sly Jeffrey Attending Provider Mortezalong, DO Yoni Primary Care Provider [phone] MD Alex Trammell Referring Provider MortezaYoni hyatt DO Primary Care Provider Dameonicz II, Sly J Admitting Unavaila ble Adamowicz II, Sly Jeffrey Attending Unavaila ble Yoni Muller Primary Care Unavailable Adamowicz II, Sly J Admitting Unavaila ble Adamowicz II, Sly Jeffrey Attending UnavailAlex Brunson Referring Unavailab Yoni Li Primary Care Unavailable Allergies Allergy Classification Reported Allergen(s) Allergy Type Date of Onset Reaction(s) Facility (3 sources) No Alert Propensity to adverse reactions to drug 1 [facility] (2 sources) Penicillin Drug Allergy Unknown [facility] (3 sources) Penicillins Propensity to adverse reactions to drug [address] [facility] (1 source) Penicillins Drug allergy (disorder) 4 [facility] Repository Medications Current Medications Medication Drug Class(es) Dates Sig (Normalized) Sig (Original) ascorbic acid 500 mg oral tablet (3 sources) Vitamin C Start: 3 take 1 tablet by mouth in the morning ascorbic acid (VITAMIN C) 500 mg tablet Take 1 tablet (500 mg total) by mouth in the morning. 100 tablet 0 02/06/2023 Active hydroCHLOROthiazide 25 mg oral tablet (20 sources) Thiazide Diuretic Start: 2 End: 4 take 1 tablet by mouth once daily hydroCHLOROthiazide (HYDRODIURIL) 25 mg tablet Indications: Essential (primary) hypertension TAKE 1 TABLET BY MOUTH DAILY 30 tablet 1 09/08/2023 Active microencapsulated potassium chloride 10 meq extended release oral tablet (10 sources) Start: 4 take 1 tablet by mouth in the morning potassium chloride (KLOR-CON M 10) 10 MEQ CR tablet Take 1 tablet (10 mEq total) by mouth in the morning. 30 tablet 5 09/17/2023 Active Start: 08-11-2022 End: 10-06-2022 take 20 mEq by mouth once daily Potassium Chloride Discontinued 20 MEQ PO Daily August 11, 2022 12:00am October 06, 2022 9:21am Potassium Chlori de Active rosuvastatin calcium 10 mg oral tablet (20 sources) HMG-CoA Reductase Inhibitor Start: 10-04-2021 take 1 tablet by mouth once daily rosuvastatin (CRESTOR) 10 mg tablet Indications: Hyperlipidemia, unspecified TAKE 1 TABLET BY MOUTH EVERY DAY 90 tablet 1 07/28/2023 Active vitamin b12 0.1 mg oral tablet (3 sources) Vitamin B12 Start: 02-06-2023 take 1 tablet by mouth in the morning cyanocobalamin (VITAMIN B-12) 100 MCG tablet Take 1 tablet (100 mcg total) by mouth in the morning. 100 tablet 0 02/06/2023 Active (3 sources) Completed/Discontinued Medications Medication Drug Class(es) [...] November 03, 2022 9:11am Apply twice daily. QUEtiapine 25 mg oral tablet (1 source) [...] Problem Classification Problem Date Documented Date Episodic/Chronic Administrative/social admission (1 source) Other specified counseling Episodic [...] postoperative seroma] Episodic Disorders of lipid metabolism (11 sources) Pure hypercholesterolemia, unspecified; Translations: [Pure hypercholesterolemia] Onset: 04-28-2022 Chronic Essential hypertension (4 sources) Essential hypertension; Translations: [Essential (primary) hypertension] Onset: 04-28-2022 09-08-2023 Chronic Hypertension with complications and secondary hypertension (1 source) Chronic kidney disease stage 3; Translations: [Hypertensive chronic kidney disease with stage 1 through stage 4 chronic kidney disease, or unspecified chronic kidney disease] 09-15-2023 Chronic Lymphadenitis (20 sources) Inguinal lymphadenopathy; Translations: [Localized enlarged lymph nodes] Onset: 08-07-2023 04-28-2022 Episodic Maintenance chemotherapy; radiotherapy (20 sources) Patient encounter status; Translations: [Encounter for antineoplastic immunotherapy] Onset: 07-21-2022 06-02-2022 Chronic Melanomas of skin (20 sources) Malignant melanoma of lower leg; Translations: [Malignant melanoma of skin of lower limb, including hip] Onset: 06-17-2022 10-07-2021 Chronic Other injuries and conditions due to external causes (7 sources) Surgical wound finding; Translations: [Open wound(s) (multiple) of unspecified site(s), without mention of complication] Episodic Other nervous system disorders (1 source) Pain due to neoplastic disease; 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)] Chronic Other nutritional; endocrine; and metabolic disorders (4 sources) Severe obesity; Translations: [Morbid (severe) obesity due to excess calories] Onset: 06-17-2022 06-17-2022 Chronic Other screening for suspected conditions (not mental disorders or infectious disease) (1 source) No current problems or disability Onset: 10-23-2020 Residual codes; unclassified (1 source) Insomnia; Translations: [Insomnia, unspecified] Episodic Residual codes; unclassified (1 source) Insomnia, unspecified Episodic Skin and subcutaneous tissue infections (11 sources) Cellulitis; Translations: [Cellulitis and abscess of unspecified sites] Episodic Unclassified (1 source) Malignant melanoma of left lower limb, including hip; Translations: [Malignant melanoma of left lower limb, including hip] Onset: 09-04-2023 Past or Other Problems Problem Classification Problem Date Documented Da te Episodic/Chronic Mood disorders (3 sources) Mood disorders Onset: 02-06-2023 Resolved: 09-15-2023 02-06-2023 Residual codes; unclassified (2 sources) No current problems or disability; Translations: [Other specified conditions influencing health status] Onset: 11-13-2020 Episodic Results Test Name Value Interpretation Reference Range Facility Basic Metabolic Panelon Anion gap [Moles/Vol] 7 mmol/L 5 - 15 mmol/L [facility] Calcium [Mass/Vol] 9.5 mg/dL 8.5 - 10. 5 mg/dL [facility] Chloride [Moles/Vol] 101 mmol/L 98 - 10 9 mmol/L [facility] CO2 [Moles/Vol] 32 mmol/L 22 - 32 mmol/L [facility] Creatinine [Mass/Vol] 0.96 mg/dL 0.40 - 1.00 mg/dL [facility] Comment on above: METHOD TRACEABLE TO [facility] STANDARD eGFR (CKD-EPI)non-race dependent 61 - PINF [facility] Comment on above: Reported eGFR is based on the CKD-EPI 2020 equation that does not use a race coefficient. Glucose [Mass/Vol] 107 mg/dL High 65 - 99 mg/dL [facility] Interpretation and review of laboratory results Abnormal [facility] Potassium [Moles/Vol] 3.3 mmol/L Low 3.5 - 5.0 mmol/L [facility] Sodium [Moles/Vol] 140 mmol/L 134 - 146 mmol/L [facility] Urea nitrogen [Mass/Vol] 22 mg/dL 5 - 27 mg/dL [facility] CBC without diffon 4 Erythrocyte distribution width (RBC) [Ratio] 13.9 % 11.5 - 15.0 % [facility] Hematocrit (Bld) [Volume fraction] 39.4 % 35 - 47 % [facility] Hemoglobin (Bld) [Mass/Vol] 13.5 g/dL 11.7 - 15.5 g/dL [facility] MCH (RBC) [Entitic mass] 30.4 pg 27 - [address] [facility] MCHC (RBC) [Mass/Vol] 34.2 g/dL 32 - 3 6 g/dL [facility] MCV (RBC) [Entitic vol] 89 fL 80 - [address] [facility] Platelet mean volume (Bld) [Entitic vol] 7.9 fL 7 - [address] [facility] Platelets (Bld) [#/Vol] 202 10*3/uL [facility] RBC (Bld) [#/Vol] 4.43 10*6/uL [facility] WBC corrected for nucl RBC Auto (Bld) [#/Vol] 6.6 [facility] Lipid 1996 panelon Cholesterol [Mass/Vol] 154 mg/dL 150 - 200 mg/dL [facility] Cholesterol in HDL [Mass/Vol] 76 mg/dL 39 - PINF mg/dL [facility] Comment on above: HDL <40 mg/dL - High Risk HDL > or = 40mg/dL- Desirable HDL >60 mg/dL - Negative Risk Cholesterol in LDL [Mass/Vol] 52 mg/dL NINF - 130 mg/dL [facility] Comment on above: LDL <100 mg/dL - Desirable LDL >160 mg/dL - High Risk Cholesterol in VLDL [Mass/Vol] 26 mg/dL 0 - 30 mg/dL [facility] Cholesterol.total/Chol esterol in HDL [Mass ratio] 2.0 {ratio} 1.0 - 5.[address] [facility] Triglyceride [Mass/Vol] 132 mg/dL 27 - 150 mg/dL [facility] Magnesiumon 09-15-2023 Magnesium [Mass/Vol] 1.9 mg/dL 1.8 - 2 .6 mg/dL [facility] No Panel Informationon 09-[address] [facility] Parathyrin.intact [Mass/Vol] on 09-15-[address] [facility] Parathyroid Hormone, intacto n 09-15-2023 Parathyrin.intact [Mass/Vol] 36 pg/mL 12 - 88 pg/mL [facility] Phosphoruson 09-15-2023 Phosphate [Mass/Vol] 3.6 mg/dL 2.4 - 4 .9 mg/dL [facility] Uric acidon 09-15-2023 Urate [Mass/Vol] 5.4 mg/dL 2.6 - 7.2 mg/dL [facility] Vitamin D 25 hydroxyon 09-14 Vitamin D+Metabolites [Mass/Vol] 28.4 ng/mL Low 30 - 100 ng/mL [facility] Comment on above: Vitamin D status 25 [place] Vitamin D Deficiency <20 ng/mL Insufficiency 20-29 ng/mL Sufficiency 30-100 ng/mL Toxicity >100 ng/mL NOTE: A pediatric reference range has not been established by the ship boss of this kit. The [employer] recommends a Vitamin D level of = or >20ng/mL in infants and children. Vitamin D+Metabolites [Mass/ Vol]on 09-15-2023 Interpretation and review of laboratory results Abnormal [facility] Complete Blood Count Auto Di ffon 08-07-2023 Basophils (Bld) [#/Vol] 0.0 10*3/uL Normal 0.0-0.2 [facility] Comment on above: Result Comment: PERF ORMED BY: [facility] [address] [facility] [place] [address] PATHOLOGIST WEB DESIGN SPECIALIST WAYLON SAUNDERS M.D. Performed By: #### C BC ####[address] Basophils/100 WBC (Bld) 0.5 % Normal . [facility] Comment on above: Performed By: #### C BC ####[place] [id number] [facility] Eosinophils (Bld) [#/Vol] 0.0 10*3/uL Normal 0.0-0.45 [facility] Comment on above: Performed By: #### C BC ####[place] [id number] [facility] Eosinophils/100 WBC (Bld) 0.1 % Normal . [facility] Comment on above: Performed By: #### C BC ####[place] [id number] [facility] Erythrocyte distribution width (RBC) [Ratio] 13.6 % Normal 11.9-15.3 [facility] Comment on above: Performed By: #### C BC ####[address] Hematocrit (Bld) [Volume fraction] 37.0 % Normal 34.0-46.4 [facility] Comment on above: Performed By: #### C BC ####[address] Hemoglobin (Bld) [Mass/Vol] 12.8 g/dL Normal 11.8-15.4 [facility] Comment on above: Performed By: #### C BC ####[address] Lymphocytes (Bld) [#/Vol] 1.1 10*3/uL Normal 1.00-4.8 [facility] Comment on above: Performed By: #### C BC ####[address] Lymphocytes/100 WBC (Bld) 13.9 % Normal . [facility] Comment on above: Performed By: #### C BC ####[address] MCH (RBC) [Entitic mass] 30.2 pg Normal 24.7-34.3 [facility] Comment on above: Performed By: #### C BC ####[address] MCV (RBC) [Entitic vol] 87.3 fL Normal 80-100 [facility] Comment on above: Performed By: #### C BC ####[address] Mean Corpuscular HGB Conc 34.6 g/dL Normal 32.0-35.0 [facility] Comment on above: Performed By: #### C BC ####[address] Monocytes (Bld) [#/Vol] 0.5 10*3/uL Normal 0.0-0.8 [facility] Comment on above: Performed By: #### C BC ####[place] [address] [place] [address] [facility] Monocytes/100 WBC (Bld) 6.4 % Normal . [facility] Comment on above: Performed By: #### C BC ####[place] [address] [place] [address] [facility] Neutrophils (Bld) [#/Vol] 6.0 10*3/uL Normal 1.8-7.7 [facility] Comment on above: Performed By: #### C BC ####[address] [facility] Neutrophils/100 WBC (Bld) 79.1 % Normal . [facility] Comment on above: Performed By: #### C BC ####[address] [facility] NRBC% 0.0 /100{WBC} Normal 0-0.5 [facility] Comment on above: Performed By: #### C BC ####[address] [facility] Platelet mean volume (Bld) [Entitic vol] 7.3 fL Normal 6.3-10.7 [facility] Comment on above: Performed By: #### C BC ####[address] [facility] Platelets (Bld) [#/Vol] 202 10*3/uL Normal 150-450 [facility] Comment on above: Performed By: #### C BC ####[address] [facility] RBC (Bld) [#/Vol] 4.24 10*6/uL Normal 3.60-5.00 [facility] Comment on above: Performed By: #### C BC ####[address] [facility] WBC (Bld) [#/Vol] 7.6 10*3/uL Normal 3.8-11.6 [facility] Comment on above: Performed By: #### C ####[facility] [address] [place] [address] [place] Adrenocorticotropic Hormone PLon 08-06-[address] 21.1 pg/mL Normal 7.2-63.3 [facility] Comment on above: Result Comment: ACTH reference interval for samples collected between 7 and 10 AM. Performed at: - [facility] [id number] Manager Of Production: Coleman Lacy PhD, Phone: [phone] PERFORMED BY: [place] [address] PATHOLOGIST WEB DESIGN SPECIALIST WAYLON SAUNDERS M.D. Performed By: #### [facility] #### [facility] , Alanine aminotransferase [En zymatic activity/volume] in Serum or PlasmaOrdered By: Sly Benson on 08-06-2023 ALT [Catalytic activity/Vol] 23 U/L 7-52 [facility] Albumin [Mass/volume] in Ser um or Plasma by Bromocresol green (BCG) dye binding methoOrdered By: Sly Benson on 08-06-2023 Albumin BCG dye [Mass/Vol] 4.0 g/dL 3.5-5.7 [facility] Alkaline phosphatase [Enzyma tic activity/volume] in Serum or PlasmaOrdered By: Sly Benson on 08-06-2023 ALP [Catalytic activity/Vol] 95 U/L 34-104 [facility] Aspartate aminotransferase [ Enzymatic activity/volume] in Serum or PlasmaOrdered By: Sly Benson on 08-06-2023 AST [Catalytic activity/Vol] 29 U/L 13-39 [facility] Bilirubin.total [Mass/volume ] in Serum or PlasmaOrdered By: Sly Benson on 08-06-2023 Bilirubin [Mass/Vol] 0.6 mg/dL 0.3-1.[address] [facility] [address] abdomen pelvis w conon CT abdomen pelvis w con [facility] [address] [place] [address] CT Scan Report Signed Patient: Theresa Luu MR#: [id number] : 1945 Acct:[id number] Age/Sex: 77 / F ADM Date: 08/06/23 Loc: XT Room: Type: [facility] RCR Attending Dr: Sly Benson II DO Copies to: Sly Benson II, DO Ordering Provider: Sly Benson II, DO Date of Service: 08/06/23 CT/CT abdomen pelvis w con: surveillance ([id number]) CT/CT chest w con: surveillance CT CHEST, [...] 03/05/2023. Impression dictated by: Sylvain Monroe Jr., D.OWilbert08/06/2023 2:43 PM Dictation Location: [place] [address] Transcribed By: [facility] 08/06/23 1443 Dictated By: Sylvain Monroe Jr, DO 08/06/23 1430 Signed By: 08/06/23 1443 Normal [facility] Calcium [Mass/volume] in Ser um or PlasmaOrdered By: Sly Benson on 08-06-2023 Calcium [Mass/Vol] 9.2 mg/dL 8.6-10.3 [facility] Carbon dioxide, total [Moles /volume] in Serum or PlasmaOrdered By: Sly Benson on 08-06-2023 CO2 [Moles/Vol] 30.5 mmol/L 21.0-31.0 [facility] Chloride [Moles/volume] in S mellissa or PlasmaOrdered By: Sly Benson on 08-06-2023 Chloride [Moles/Vol] 104 mmol/L 98-107 [facility] Comprehensive Metabolic Pane eileen 08-06-2023 Albumin [Mass/Vol] 4.0 g/dL Normal 3.5-5.7 [facility] Comment on above: Performed By: #### C MP, LDH, T4F, TSH3 ####[place] [address] [place] [address] [facility] Albumin/Globulin [Mass ratio] 1.3 {ratio} Normal [facility] Comment on above: Performed By: #### C MP, LDH, T4F, TSH3 ####[facility] [id number] [place] [address] [facility] ALP [Catalytic activity/Vol] 95 U/L Normal 34-104 [facility] Comment on above: Performed By: #### C MP, LDH, T4F, TSH3 ####[facility] [place] [address] [facility] ALT [Catalytic activity/Vol] 23 U/L Normal 7-52 [facility] Comment on above: Performed By: #### C MP, LDH, T4F, TSH3 ####[address] Anion gap [Moles/Vol] Not performed Normal 6.0-15.0 [facility] Comment on above: Performed By: #### C MP, LDH, T4F, TSH3 ####[address] AST [Catalytic activity/Vol] 29 U/L Normal 13-39 [facility] Comment on above: Performed By: #### C MP, LDH, T4F, TSH3 ####[address] Bilirubin [Mass/Vol] 0.6 mg/dL Normal 0.3-1.0 [facility] Comment on above: Performed By: #### C MP, LDH, T4F, TSH3 ####[address] Calcium [Mass/Vol] 9.2 mg/dL Normal 8.6-10.3 [facility] Comment on above: Performed By: #### C MP, LDH, T4F, TSH3 ####[address] Chloride [Moles/Vol] 104 mmol/L Normal 98-107 [facility] Comment on above: Performed By: #### C MP, LDH, T4F, TSH3 ####[address] CO2 [Moles/Vol] 30.5 mmol/L Normal 21.0-31.0 [facility] Comment on above: Performed By: #### C MP, LDH, T4F, TSH3 ####[address] Creatinine [Mass/Vol] 0.87 mg/dL Normal 0.60-1.20 [facility] Comment on above: Performed By: #### C MP, LDH, T4F, TSH3 ####[place] [address] [place] [address] [facility] Creatinine Clr Calc Pharmacy 57.70 [facility] Comment on above: Performed By: #### C MP, LDH, T4F, TSH3 ####[place] [address] [place] [address] [facility] GFR/1.73 sq M.predicted MDRD (S/P/Bld) [Vol rate/Area] mL/min/{1.73_m2} [facility] Comment on above: Performed By: #### C MP, LDH, T4F, TSH3 ####[address] [facility] Globulin (S) [Mass/Vol] 3.0 g/dL Normal [facility] Comment on above: Performed By: #### C MP, LDH, T4F, TSH3 ####[place] [id number] [facility] Glucose [Mass/Vol] 95 mg/dL Normal 70-100 [facility] Comment on above: Result Comment: [facility] Glucose Reference Range is dependent on time and content of last meal. Glucose of more than 200 mg/dL in a nonstressed, ambulatory subject supports the diagnosis of Diabetes Mellitus. ADA recommended reference range Performed By: #### C MP, LDH, T4F, TSH3 ####[address] [facility] Potassium Normal 3.5-5.1 [facility] Comment on above: Result Comment: Spec imen hemolyzed, redraw requested Performed By: #### C MP, LDH, T4F, TSH3 ####[address] [facility] Protein [Mass/Vol] 7.0 g/dL Normal 6.4-8.9 [facility] Comment on above: Performed By: #### C MP, LDH, T4F, TSH3 ####[address] [facility] Sodium [Moles/Vol] 141 mmol/L Normal 136-145 [facility] Comment on above: Performed By: #### C MP, LDH, T4F, TSH3 ####[place] [address] Urea nitrogen [Mass/Vol] 23 mg/dL Normal 02-03 [facility] Comment on above: Performed By: #### C MP, LDH, T4F, TSH3 ####[place] [address] Creatinine [Mass/volume] in Serum or PlasmaOrdered By: Sly Benson on 08-06-2023 Creatinine [Mass/Vol] 0.87 mg/dL 0.60-1.20 [facility] Free T4 (Free Thyroxine)on 0 08-06-2023 Free T4 [Mass/Vol] 1.13 ng/dL High 0.61-1.12 [facility] Comment on above: Performed By: #### C MP, LDH, T4F, TSH3 ####[address] [address] Globulin Calc (S) [Mass/Vol] Ordered By: Sly Benson on 08-06-2023 Globulin (S) [Mass/Vol] 3.0 g/dL [facility] Glucose [Mass/volume] in Ser um or PlasmaOrdered By: Sly Benson on 08-06-2023 Glucose [Mass/Vol] 95 mg/dL 70-100 [facility] Comment on above: ADA recommended refe rence rangeRandom Glucose Reference Range is dependent on time and content of last meal. Glucose of more than 200 mg/dL in a nonstressed, ambulatory subject supports the diagnosis of Diabetes Mellitus. LDH Lactate Dehydrogenaseon 08-06-2023 LDH Lactate Dehydrogenase Normal 140-271 [facility] Comment on above: Result Comment: Spec imen hemolyzed, redraw requested Performed By: #### C MP, LDH, T4F, TSH3 ####[facility] [place] [address] [facility] Lactate dehydrogenase [Enzym atic activity/volume] in Serum or Plasma by Lactate to pyOrdered By: Sly eBnson on 01-25-2024 LDH Lactate to pyruvate reaction [Catalytic activity/Vol] 173 U/L 140-271 [facility] No Panel InformationOrdered By: Sly Benson on 08-06-2023 Estimated GFR (CKD-EPI) > 60.0 mL/Min [facility] Creatinine Clearance (Chem 57.70 [facility] Potassium [Moles/volume] in Serum or PlasmaOrdered By: Sly Benson on 08-06-2023 Potassium [Moles/Vol] 3.6 mmol/L 3.5-5.1 [facility] Protein [Mass/volume] in Ser um or PlasmaOrdered By: Sly Benson on 08-06-2023 Protein [Mass/Vol] 7.0 g/dL 6.4-8.9 [facility] Redraw LDHon 08-06-2023 Redraw LDH 173 U/L Normal 140-271 [facility] Comment on above: Order Comment: SPECI MEN HEMOLYZED. NOTIFIED CHON. Result Comment: PERF ORMED BY: [place] [address] PATHOLOGIST WEB DESIGN SPECIALIST WAYLON SAUNDERS M.D. Performed By: #### R EDRAW K, REDRAW LDH #### [facility] [address] [place] [address] Redraw Potassiumon 4 Potassium [Moles/Vol] 3.6 mmol/L Normal 3.5-5.1 [facility] Comment on above: Order Comment: SPECI MEN HEMOLYZED. NOTIFIED CHON. Performed By: #### R EDRAW K, REDRAW LDH #### [facility] [address] [place] [address] Serum or plasma albumin/glob ulin mass ratioOrdered By: Sly Benson on 08-06-2023 Albumin/Globulin [Mass ratio] 1.3 {ratio} [facility] Serum or plasma anion gap de terminationOrdered By: Sly Benson on 08-06-2023 Anion gap [Moles/Vol] TNP [facility] Comment on above: Test not performed Sodium [Moles/volume] in Ser um or PlasmaOrdered By: Sly Benson on 08-06-2023 Sodium [Moles/Vol] 141 mmol/L 136-145 [facility] Thyroid Stimulating Hormoneo n 08-06-2023 TSH Qn 2.81 m[IU]/L Normal 0.45-5.33 [facility] Comment on above: Result Comment: PERF ORMED BY: [facility] [address] [facility] [address] PATHOLOGIST WEB DESIGN SPECIALIST WAYLON SAUNDERS M.D. Performed By: #### C MP, LDH, T4F, TSH3 ####[place] [address] [address] Thyrotropin [Units/volume] i n Serum or PlasmaOrdered By: Sly Benson on 08-06-2023 TSH Qn 2.81 m[IU]/L 0.45-5.33 [facility] Thyroxine (T4) free [Mass/vo lume] in Serum or PlasmaOrdered By: Sly Benson on 08-06-2023 Free T4 [Mass/Vol] 1.13 ng/dL 0.61-1.12 [facility] Urea nitrogen [Mass/volume] in Serum or PlasmaOrdered By: Sly Benson on 08-06-2023 Urea nitrogen [Mass/Vol] 23 mg/dL 7 [facility] Adrenocorticotropic Hormone PLon 03-05-[address] 25.6 pg/mL Normal 7.2-63.3 [facility] Comment on above: Result Comment: ACTH reference interval for samples collected between 7 and 10 AM. Performed at: - [facility] [address] [id number] Manager Of Production: Coleman Lacy PhD, Phone: [phone] PERFORMED BY: [facility] [address] [facility] [place] [address] PATHOLOGIST WEB DESIGN SPECIALIST WAYLON SAUNDERS M.D. Performed By: #### C BC ####[place] [id number] [facility]#### ACTH ####[facility] , Alanine aminotransferase [En zymatic activity/volume] in Serum or PlasmaOrdered By: Sly Benson on 03-05-2023 ALT [Catalytic activity/Vol] 22 U/L 7-52 [facility] Albumin [Mass/volume] in Ser um or Plasma by Bromocresol green (BCG) dye binding methoOrdered By: Sly Benson on 03-05-2023 Albumin BCG dye [Mass/Vol] 4.1 g/dL 3.5-5.7 [facility] Alkaline phosphatase [Enzyma tic activity/volume] in Serum or PlasmaOrdered By: Sly Benson on 03-05-2023 ALP [Catalytic activity/Vol] 106 U/L 34-104 [facility] Aspartate aminotransferase [ Enzymatic activity/volume] in Serum or PlasmaOrdered By: Sly Benson on 03-05-2023 AST [Catalytic activity/Vol] 23 U/L 13-39 [facility] Basophils Auto (Bld) [#/Vol] Ordered By: Sly Benson on 03-05-2023 Basophils (Bld) [#/Vol] 0.0 10*3/uL 0.0-0.2 [facility] Basophils/100 WBC Auto (Bld) Ordered By: Sly Benson on 03-05-2023 Basophils/100 WBC (Bld) 0.8 % . [facility] Bilirubin.total [Mass/volume ] in Serum or PlasmaOrdered By: Sly Benson on 03-05-2023 Bilirubin [Mass/Vol] 0.6 mg/dL 0.3-1.[address] [facility] [address] abdomen pelvis w conon CT abdomen pelvis w [place] [address] CT Scan Report Signed Patient: Theresa Luu MR#: [id number] : 1945 Acct:[id number] Age/Sex: 77 / F ADM Date: 03/05/23 Loc: Room: Type: [facility] Attending Dr: Sly Benson II DO Copies to: Sly Benson II, DO Ordering Provider: Sly Benson II, DO Date of Service: 03/05/23 CT/CT abdomen pelvis w con: surveilance ([id number]) CT/CT chest w con: surveilance CT CHEST, [...] Monroe Jr., D.O.03/05/2023 3:12 PM Dictation Location: [place] [address] Transcribed By: PWS 03/05/23 1512 Dictated By: Sylvain Monroe Jr, DO 03/05/23 1504 Signed By: 03/05/23 1512 Normal [facility] Calcium [Mass/volume] in Ser um or PlasmaOrdered By: Sly Benson on 03-05-2023 Calcium [Mass/Vol] 9.4 mg/dL 8.6-10.3 [facility] Carbon dioxide, total [Moles /volume] in Serum or PlasmaOrdered By: Sly Benson on 03-05-2023 CO2 [Moles/Vol] 28.0 mmol/L 21.0-31.0 [facility] Chloride [Moles/volume] in S mellissa or PlasmaOrdered By: Sly Benson on 03-05-2023 Chloride [Moles/Vol] 104 mmol/L 98-107 [facility] Complete Blood Count Auto Di ffon 03-05-2023 Basophils (Bld) [#/Vol] 0.0 10*3/uL Normal 0.0-0.2 [facility] Comment on above: Result Comment: PERF ORMED BY: [facility] [address] [place] [address] PATHOLOGIST WEB DESIGN SPECIALIST WAYLON SAUNDERS M.D. Performed By: #### C BC ####[place] [address]#### ACTH ####[facility] , Basophils/100 WBC (Bld) 0.8 % Normal . [facility] Comment on above: Performed By: #### C BC ####[place] [address] [place] [address] [place]#### ACTH ####[facility] , Eosinophils (Bld) [#/Vol] 0.1 10*3/uL Normal 0.0-0.45 [facility] Comment on above: Performed By: #### C BC ####[facility] [place] [address] [place]#### ACTH ####[facility] , Eosinophils/100 WBC (Bld) 1.7 % Normal . [facility] Comment on above: Performed By: #### C BC ####[place] [address] [place]#### ACTH ####[facility] , Erythrocyte distribution width (RBC) [Ratio] 14.3 % Normal 11.9-15.3 [facility] Comment on above: Performed By: #### C BC ####[place] [address] [place]#### ACTH ####[facility] , Hematocrit (Bld) [Volume fraction] 39.8 % Normal 34.0-46.4 [facility] Comment on above: Performed By: #### C BC ####[place] [address] [place]#### ACTH ####[facility] , Hemoglobin (Bld) [Mass/Vol] 13.6 g/dL Normal 11.8-15.4 [facility] Comment on above: Performed By: #### C BC ####[place] [address] [place]#### ACTH ####[facility] , Lymphocytes (Bld) [#/Vol] 1.4 10*3/uL Normal 1.00-4.8 [facility] Comment on above: Performed By: #### C BC ####[place] [address] [place]#### ACTH ####[facility] , Lymphocytes/100 WBC (Bld) 23.1 % Normal . [facility] Comment on above: Performed By: #### C BC ####[place] [address] [place]#### ACTH ####[facility] , MCH (RBC) [Entitic mass] 30.2 pg Normal 24.7-34.3 [facility] Comment on above: Performed By: #### C BC ####[place] [address] [place]#### ACTH ####[facility] , MCV (RBC) [Entitic vol] 88.1 fL Normal 80-100 [facility] Comment on above: Performed By: #### C BC ####[place] [address] [place]#### ACTH ####[facility] , Mean Corpuscular HGB Conc 34.3 g/dL Normal 32.0-35.0 [facility] Comment on above: Performed By: #### C BC ####[address]#### ACTH ####[facility] , Monocytes (Bld) [#/Vol] 0.5 10*3/uL Normal 0.0-0.8 [facility] Comment on above: Performed By: #### C BC ####[place] [address] [place]#### ACTH ####[facility] , Monocytes/100 WBC (Bld) 8.4 % Normal . [facility] Comment on above: Performed By: #### C BC ####[place] [address] [place]#### ACTH ####[facility] , Neutrophils (Bld) [#/Vol] 4.1 10*3/uL Normal 1.8-7.7 [facility] Comment on above: Performed By: #### C BC ####[place] [address] [place]#### ACTH ####[facility] , Neutrophils/100 WBC (Bld) 66.0 % Normal . [facility] Comment on above: Performed By: #### C BC ####[address]#### ACTH ####[facility] , NRBC% 0.0 /100{WBC} Normal 0-0.5 [facility] Comment on above: Performed By: #### C BC ####[place] [address] [place]#### ACTH ####[facility] , Platelet mean volume (Bld) [Entitic vol] 7.2 fL Normal 6.3-10.7 [facility] Comment on above: Performed By: #### C BC ####[address]#### ACTH ####[facility] , Platelets (Bld) [#/Vol] 190 10*3/uL Normal 150-450 [facility] Comment on above: Performed By: #### C BC ####[address]#### ACTH ####[facility] , RBC (Bld) [#/Vol] 4.51 10*6/uL Normal 3.60-5.00 [facility] Comment on above: Performed By: #### C BC ####[place] [address] [place]#### ACTH ####[facility] , WBC (Bld) [#/Vol] 6.3 10*3/uL Normal 3.8-11.6 [facility] Comment on above: Performed By: #### C BC ####[place] [address] [place]#### ACTH ####[facility] , Comprehensive Metabolic Pane eileen 03-05-2023 Albumin [Mass/Vol] 4.1 g/dL Normal 3.5-5.7 [facility] Comment on above: Order Comment: STAT BUN/CREAT FOR CT PER CHAGO IN CC DRAW 02/23/23 Performed By: #### T 4F, LDH, TSH3, CMP #### [facility] [address] [place] [address] Albumin/Globulin [Mass ratio] 1.5 {ratio} Normal [facility] Comment on above: Order Comment: STAT BUN/CREAT FOR CT PER CHAGO IN CC DRAW 02/23/23 Performed By: #### T 4F, LDH, TSH3, CMP #### [facility] [address] [place] [address] ALP [Catalytic activity/Vol] 106 U/L High 34-104 [facility] Comment on above: Order Comment: STAT BUN/CREAT FOR CT PER CHAGO IN CC DRAW 02/23/23 Performed By: #### T 4F, LDH, TSH3, CMP #### [facility] [address] [place] [address] ALT [Catalytic activity/Vol] 22 U/L Normal 7-52 [facility] Comment on above: Order Comment: STAT BUN/CREAT FOR CT PER CHAGO IN CC DRAW 02/23/23 Performed By: #### T 4F, LDH, TSH3, CMP #### [facility] [address] [place] [address] Anion gap [Moles/Vol] 12.8 mmol/L Normal 6.0-15.0 [facility] Comment on above: Order Comment: STAT BUN/CREAT FOR CT PER CHAGO IN CC DRAW 02/23/23 Performed By: #### T 4F, LDH, TSH3, CMP #### [facility] [address] [place] [address] AST [Catalytic activity/Vol] 23 U/L Normal 13-39 [facility] Comment on above: Order Comment: STAT BUN/CREAT FOR CT PER CHAGO IN CC DRAW 02/23/23 Performed By: #### T 4F, LDH, TSH3, CMP #### [facility] [address] [place] [address] Bilirubin [Mass/Vol] 0.6 mg/dL Normal 0.3-1.0 [facility] Comment on above: Order Comment: STAT BUN/CREAT FOR CT PER CHAGO IN CC DRAW 02/23/23 Performed By: #### T 4F, LDH, TSH3, CMP #### [facility] [address] Calcium [Mass/Vol] 9.4 mg/dL Normal 8.6-10.3 [facility] Comment on above: Order Comment: STAT BUN/CREAT FOR CT PER CHAGO IN CC DRAW 02/23/23 Performed By: #### T 4F, LDH, TSH3, CMP #### [facility] [address] Chloride [Moles/Vol] 104 mmol/L Normal 98-107 [facility] Comment on above: Order Comment: STAT BUN/CREAT FOR CT PER CHAGO IN CC DRAW 02/23/23 Performed By: #### T 4F, LDH, TSH3, CMP #### [facility] [address] CO2 [Moles/Vol] 28.0 mmol/L Normal 21.0-31.0 [facility] Comment on above: Order Comment: STAT BUN/CREAT FOR CT PER CHAGO IN CC DRAW 02/23/23 Performed By: #### T 4F, LDH, TSH3, CMP #### [facility] [address] [place] [address] Creatinine [Mass/Vol] 0.91 mg/dL Normal 0.60-1.20 [facility] Comment on above: Order Comment: STAT BUN/CREAT FOR CT PER CHAGO IN CC DRAW 02/23/23 Performed By: #### T 4F, LDH, TSH3, CMP #### [facility] [address] [place] [address] [place] Creatinine Clr Calc Pharmacy 54.20 Normal [facility] Comment on above: Order Comment: STAT BUN/CREAT FOR CT PER CHAGO IN CC DRAW 02/23/23 Performed By: #### T 4F, LDH, TSH3, CMP #### [facility] [address] [place] [address] [place] GFR/1.73 sq M.predicted MDRD (S/P/Bld) [Vol rate/Area] mL/min/{1.73_m2} [facility] Comment on above: Order Comment: STAT BUN/CREAT FOR CT PER CHAGO IN CC DRAW 02/23/23 Performed By: #### T 4F, LDH, TSH3, CMP #### [facility] [address] Globulin (S) [Mass/Vol] 2.8 g/dL [facility] Comment on above: Order Comment: STAT BUN/CREAT FOR CT PER CHAGO IN CC DRAW 02/23/23 Performed By: #### T 4F, LDH, TSH3, CMP #### [address] Glucose [Mass/Vol] 102 mg/dL High 70-100 [facility] Comment on above: Order Comment: STAT BUN/CREAT FOR CT PER CHAGO IN CC DRAW 02/23/23 Result Comment: [place] Glucose Reference Range is dependent on time and content of last meal. Glucose of more than 200 mg/dL in a nonstressed, ambulatory subject supports the diagnosis of Diabetes Mellitus. ADA recommended reference range Performed By: #### T 4F, LDH, TSH3, CMP #### [address] Potassium [Moles/Vol] 3.8 mmol/L Normal 3.5-5.1 [facility] Comment on above: Order Comment: STAT BUN/CREAT FOR CT PER CHAGO IN CC DRAW 02/23/23 Performed By: #### T 4F, LDH, TSH3, CMP #### [facility] [address] [place] [address] [place] Protein [Mass/Vol] 6.9 g/dL Normal 6.4-8.9 [facility] Comment on above: Order Comment: STAT BUN/CREAT FOR CT PER CHAGO IN CC DRAW 02/23/23 Performed By: #### T 4F, LDH, TSH3, CMP #### [facility] [address] [place] [address] [place] Sodium [Moles/Vol] 141 mmol/L Normal 136-145 [facility] Comment on above: Order Comment: STAT BUN/CREAT FOR CT PER CHAGO IN CC DRAW 02/23/23 Performed By: #### T 4F, LDH, TSH3, CMP #### [facility] [address] Urea nitrogen [Mass/Vol] 17 mg/dL Normal 7-25 [facility] Comment on above: Order Comment: STAT BUN/CREAT FOR CT PER CHAGO IN CC DRAW 02/23/23 Performed By: #### T 4F, LDH, TSH3, CMP #### [facility] [address] Creatinine [Mass/volume] in Serum or PlasmaOrdered By: Sly Benson on 03-05-2023 Creatinine [Mass/Vol] 0.91 mg/dL 0.60-1.20 [facility] Eosinophils Auto (Bld) [#/Vo l]Ordered By: Sly Bensno on 03-05-2023 Eosinophils (Bld) [#/Vol] 0.1 10*3/uL 0.0-0.45 [facility] Eosinophils/100 WBC Auto (Bl d)Ordered By: Sly Benson on 03-05-2023 Eosinophils/100 WBC (Bld) 1.7 % . [facility] Erythrocyte distribution wid th Auto (RBC) [Ratio]Ordered By: Sly Benson on 03-05-2023 Erythrocyte distribution width (RBC) [Ratio] 14.3 % 11.9-15.3 [facility] Free T4 (Free Thyroxine)on 0 03-05-2023 Free T4 [Mass/Vol] 0.94 ng/dL Normal 0.61-1.12 [facility] Comment on above: Order Comment: STAT BUN/CREAT FOR CT PER CHAGO IN CC DRAW 02/23/23 Performed By: #### T 4F, LDH, TSH3, CMP #### [facility] [address] [place] [id number] [place] Globulin Calc (S) [Mass/Vol] Ordered By: Sly Benson on 03-05-2023 Globulin (S) [Mass/Vol] 2.8 g/dL [facility] Glucose [Mass/volume] in Ser um or PlasmaOrdered By: Sly Benson on 03-05-2023 Glucose [Mass/Vol] 102 mg/dL 70-100 [facility] Comment on above: ADA recommended refe rence rangeRandom Glucose Reference Range is dependent on time and content of last meal. Glucose of more than 200 mg/dL in a nonstressed, ambulatory subject supports the diagnosis of Diabetes Mellitus. Hematocrit Auto (Bld) [Volum e fraction]Ordered By: Sly Benson on 03-05-2023 Hematocrit (Bld) [Volume fraction] 39.8 % 34.0-46.4 [facility] Hemoglobin [Mass/volume] in BloodOrdered By: Sly Benson on 03-05-2023 Hemoglobin (Bld) [Mass/Vol] 13.6 g/dL 11.8-15.4 [facility] LDH Lactate Dehydrogenaseon 03-05-2023 LDH Lactate Dehydrogenase 197 U/L Normal 140-271 [facility] Comment on above: Order Comment: STAT BUN/CREAT FOR CT PER CHAGO IN CC DRAW 02/23/23 Performed By: #### T 4F, LDH, TSH3, CMP #### [facility] [address] Lactate dehydrogenase [Enzym atic activity/volume] in Serum or Plasma by Lactate to pyOrdered By: Sly Benson on 03-05-2023 LDH Lactate to pyruvate reaction [Catalytic activity/Vol] 197 U/L 140-271 [facility] Leukocytes [#/volume] correc margot for nucleated erythrocytes in Blood by Automated counOrdered By: Sly Benson on 03-05-2023 WBC corrected for nucl RBC Auto (Bld) [#/Vol] 6.3 10*3/uL 3.8-11.6 [facility] Lymphocytes Auto (Bld) [#/Vo l]Ordered By: Sly Benson on 03-05-2023 Lymphocytes (Bld) [#/Vol] 1.4 10*3/uL 1.00-4.8 [facility] Lymphocytes/100 WBC Auto (Bl d)Ordered By: Sly Benson on 03-05-2023 Lymphocytes/100 WBC (Bld) 23.1 % . [facility] MCH Auto (RBC) [Entitic mass ]Ordered By: Sly Benson on 03-05-2023 MCH (RBC) [Entitic mass] 30.2 pg 24.7-34.3 [facility] MCHC Auto (RBC) [Mass/Vol]Or dered By: Sly Benson on 03-05-2023 MCHC (RBC) [Mass/Vol] 34.3 g/dL 32.0-35.0 [facility] MCV Auto (RBC) [Entitic vol] Ordered By: Sly Benson on 03-05-2023 MCV (RBC) [Entitic vol] 88.1 fL 80-100 [facility] Monocytes Auto (Bld) [#/Vol] Ordered By: Sly Benson on 03-05-2023 Monocytes (Bld) [#/Vol] 0.5 10*3/uL 0.0-0.8 [facility] Monocytes/100 WBC Auto (Bld) Ordered By: Sly Benson on 03-05-2023 Monocytes/100 WBC (Bld) 8.4 % . [facility] Neutrophils Auto (Bld) [#/Vo l]Ordered By: Sly Benson on 03-05-2023 Neutrophils (Bld) [#/Vol] 4.1 10*3/uL 1.8-7.7 [facility] Neutrophils/100 WBC Auto (Bl d)Ordered By: Sly Benson on 03-05-2023 Neutrophils/100 WBC (Bld) 66.0 % . [facility] No Panel InformationOrdered By: Sly Benson on 03-05-2023 Adrenocorticotropic Hormone 25.6 pg/mL 7.2-63.3 [facility] Comment on above: ACTH reference inter jamel for samples collected between 7 and10 AM.Performed at: [facility] [id number] Director: Coleman Lacy PhD, Phone: [phone] Estimated GFR (CKD-EPI) > 60.0 mL/Min [facility] Creatinine Clearance (Chem 54.20 [facility] Nucleated erythrocytes [Pres ence] in Blood by Automated countOrdered By: Sly Benson on 03-05-2023 Nucleated RBC Auto Ql (Bld) 0.0 /100{WBC} 0-0.5 [facility] Platelet mean volume Auto (B ld) [Entitic vol]Ordered By: Sly Benson on 03-05-2023 Platelet mean volume (Bld) [Entitic vol] 7.2 fL 6.3-10.7 [facility] Platelets Auto (Bld) [#/Vol] Ordered By: Sly Benson on 03-05-2023 Platelets (Bld) [#/Vol] 190 10*3/uL 150-450 [facility] Potassium [Moles/volume] in Serum or PlasmaOrdered By: Sly Benson on 03-05-2023 Potassium [Moles/Vol] 3.8 mmol/L 3.5-5.1 [facility] Protein [Mass/volume] in Ser um or PlasmaOrdered By: Sly Benson on 03-05-2023 Protein [Mass/Vol] 6.9 g/dL 6.4-8.9 [facility] RBC Auto (Bld) [#/Vol]Ordere d By: Sly Benson on 03-05-2023 RBC (Bld) [#/Vol] 4.51 10*6/uL 3.60-5.00 [facility] Serum or plasma albumin/glob ulin mass ratioOrdered By: Sly Benson on 03-05-2023 Albumin/Globulin [Mass ratio] 1.5 {ratio} [facility] Serum or plasma anion gap de terminationOrdered By: Sly Benson on 03-05-2023 Anion gap [Moles/Vol] 12.8 mmol/L 6.0-15.0 [facility] Sodium [Moles/volume] in Ser um or PlasmaOrdered By: Sly Benson on 03-05-2023 Sodium [Moles/Vol] 141 mmol/L 136-145 [facility] Thyroid Stimulating Hormoneo n 08-24-2023 TSH Qn 2.49 m[IU]/L Normal 0.45-5.33 [facility] Comment on above: Order Comment: STAT BUN/CREAT FOR CT PER CHAGO IN CC DRAW 02/23/23 Result Comment: PERF ORMED BY: [place] [address] PATHOLOGIST WEB DESIGN SPECIALIST WAYLON SAUNDERS M.D. Performed By: #### T 4F, LDH, TSH3, CMP #### [address] Thyrotropin [Units/volume] i n Serum or PlasmaOrdered By: Sly Benson on 03-05-2023 TSH Qn 2.49 m[IU]/L 0.45-5.33 [facility] Thyroxine (T4) free [Mass/vo lume] in Serum or PlasmaOrdered By: Sly Benson on 03-05-2023 Free T4 [Mass/Vol] 0.94 ng/dL 0.61-1.12 [facility] Urea nitrogen [Mass/volume] in Serum or PlasmaOrdered By: Sly Benson on 03-05-2023 Urea nitrogen [Mass/Vol] 17 mg/dL 7-25 [facility] WBC Auto (Bld) [#/Vol]Ordere d By: Sly Benson on 03-05-2023 WBC (Bld) [#/Vol] 6.3 10*3/uL 3.8-11.6 [facility] Adrenocorticotropic Hormone PLon 12-30-[address] 28.9 pg/mL Normal 7.2-63.3 [facility] Comment on above: Result Comment: ACTH reference interval for samples collected between 7 and 10 AM. Performed at: [address] [id number] Manager Of Production: Coleman Lacy PhD, Phone: [phone] PERFORMED BY: [address] [address] PATHOLOGIST WEB DESIGN SPECIALIST WAYLON SAUNDERS M.D. Performed By: #### C MP, LDH, TSH3, CBC, T4F ####[facility] [id number] [place] [address] [facility]#### ACTH ####[facility] , Alanine aminotransferase [En zymatic activity/volume] in Serum or PlasmaOrdered By: Sly Benson on 12-30-2022 ALT [Catalytic activity/Vol] 24 U/L 7-52 [facility] Albumin [Mass/volume] in Ser um or Plasma by Bromocresol green (BCG) dye binding methoOrdered By: Sly Benson on 12-30-2022 Albumin BCG dye [Mass/Vol] 4.0 g/dL 3.5-5.7 [facility] Alkaline phosphatase [Enzyma tic activity/volume] in Serum or PlasmaOrdered By: Sly Benson on 12-30-2022 ALP [Catalytic activity/Vol] 108 U/L 34-104 [facility] Aspartate aminotransferase [ Enzymatic activity/volume] in Serum or PlasmaOrdered By: Sly Benson on 12-30-2022 AST [Catalytic activity/Vol] 22 U/L 13-39 [facility] Basophils Auto (Bld) [#/Vol] Ordered By: Sly Benson on 12-30-2022 Basophils (Bld) [#/Vol] 0.0 10*3/uL 0.0-0.2 [facility] Basophils/100 WBC Auto (Bld) Ordered By: Sly Benson on 12-30-2022 Basophils/100 WBC (Bld) 0.5 % . [facility] Bilirubin.total [Mass/volume ] in Serum or PlasmaOrdered By: Sly Benson on 12-30-2022 Bilirubin [Mass/Vol] 0.5 mg/dL 0.3-1.0 [facility] Calcium [Mass/volume] in Ser um or PlasmaOrdered By: Sly Benson on 12-30-2022 Calcium [Mass/Vol] 9.1 mg/dL 8.6-10.3 [facility] [facility] Carbon dioxide, total [Moles /volume] in Serum or PlasmaOrdered By: Sly Benson on 12-30-2022 CO2 [Moles/Vol] 30.7 mmol/L 21.0-31.0 [facility] Chloride [Moles/volume] in S mlelissa or PlasmaOrdered By: Sly Benson on 12-30-2022 Chloride [Moles/Vol] 104 mmol/L 98-107 [facility] Complete Blood Count Auto Di ffon 12-30-2022 Basophils (Bld) [#/Vol] 0.0 10*3/uL Normal 0.0-0.2 [facility] Comment on above: Result Comment: PERF ORMED BY: [facility] [address] [place] [address] PATHOLOGIST WEB DESIGN SPECIALIST WAYLON SAUNDERS M.D. Performed By: #### C MP, LDH, TSH3, CBC, T4F ####[address]#### ACTH ####[facility] , Basophils/100 WBC (Bld) 0.5 % Normal . [facility] Comment on above: Performed By: #### C MP, LDH, TSH3, CBC, T4F ####[address]#### ACTH ####[facility] , Eosinophils (Bld) [#/Vol] 0.1 10*3/uL Normal 0.0-0.45 [facility] Comment on above: Performed By: #### C MP, LDH, TSH3, CBC, T4F ####[place] [address] [place]#### ACTH ####[facility] , Eosinophils/100 WBC (Bld) 1.5 % Normal . [facility] Comment on above: Performed By: #### C MP, LDH, TSH3, CBC, T4F ####[address]#### ACTH ####[facility] , Erythrocyte distribution width (RBC) [Ratio] 13.6 % Normal 11.9-15.3 [facility] Comment on above: Performed By: #### C MP, LDH, TSH3, CBC, T4F ####[place] [address] [place]#### ACTH ####[facility] , Hematocrit (Bld) [Volume fraction] 39.0 % Normal 34.0-46.4 [facility] Comment on above: Performed By: #### C MP, LDH, TSH3, CBC, T4F ####[address]#### ACTH ####[facility] , Hemoglobin (Bld) [Mass/Vol] 13.4 g/dL Normal 11.8-15.4 [facility] Comment on above: Performed By: #### C MP, LDH, TSH3, CBC, T4F ####[address]#### ACTH ####[facility] , Lymphocytes (Bld) [#/Vol] 1.6 10*3/uL Normal 1.00-4.8 [facility] Comment on above: Performed By: #### C MP, LDH, TSH3, CBC, T4F ####[address]#### ACTH ####[facility] , Lymphocytes/100 WBC (Bld) 24.0 % Normal . [facility] Comment on above: Performed By: #### C MP, LDH, TSH3, CBC, T4F ####[place] [address] [place]#### ACTH ####[facility] , MCH (RBC) [Entitic mass] 30.0 pg Normal 24.7-34.3 [facility] Comment on above: Performed By: #### C MP, LDH, TSH3, CBC, T4F ####[place] [address] [place]#### ACTH ####[facility] , MCV (RBC) [Entitic vol] 87.4 fL Normal 80-100 [facility] Comment on above: Performed By: #### C MP, LDH, TSH3, CBC, T4F ####[address]#### ACTH ####[facility] , Mean Corpuscular HGB Conc 34.3 g/dL Normal 32.0-35.0 [facility] Comment on above: Performed By: #### C MP, LDH, TSH3, CBC, T4F ####[place] [address] [place]#### ACTH ####[facility] , Monocytes (Bld) [#/Vol] 0.6 10*3/uL Normal 0.0-0.8 [facility] Comment on above: Performed By: #### C MP, LDH, TSH3, CBC, T4F ####[address]#### ACTH ####[facility] , Monocytes/100 WBC (Bld) 9.0 % Normal . [facility] Comment on above: Performed By: #### C MP, LDH, TSH3, CBC, T4F ####[place] [address] [place]#### ACTH ####[facility] , Neutrophils (Bld) [#/Vol] 4.4 10*3/uL Normal 1.8-7.7 [facility] Comment on above: Performed By: #### C MP, LDH, TSH3, CBC, T4F ####[place] [address] [place]#### ACTH ####[facility] , Neutrophils/100 WBC (Bld) 65.0 % Normal . [facility] Comment on above: Performed By: #### C MP, LDH, TSH3, CBC, T4F ####[place] [address] [place]#### ACTH ####[facility] , NRBC% 0.0 /100{WBC} Normal 0-0.5 [facility] Comment on above: Performed By: #### C MP, LDH, TSH3, CBC, T4F ####[place] [address] [place]#### ACTH ####[facility] , Platelet mean volume (Bld) [Entitic vol] 7.4 fL Normal 6.3-10.7 [facility] Comment on above: Performed By: #### C MP, LDH, TSH3, CBC, T4F ####[address]#### ACTH ####[facility] , Platelets (Bld) [#/Vol] 171 10*3/uL Normal 150-450 [facility] Comment on above: Performed By: #### C MP, LDH, TSH3, CBC, T4F ####[place] [address] [place]#### ACTH ####[facility] , RBC (Bld) [#/Vol] 4.46 10*6/uL Normal 3.60-5.00 [facility] Comment on above: Performed By: #### C MP, LDH, TSH3, CBC, T4F ####[place] [address] [place]#### ACTH ####[facility] , WBC (Bld) [#/Vol] 6.8 10*3/uL Normal 3.8-11.6 [facility] Comment on above: Performed By: #### C MP, LDH, TSH3, CBC, T4F ####[place] [address] [place]#### ACTH ####[facility] , Comprehensive Metabolic Pane eileen 12-30-2022 Albumin [Mass/Vol] 4.0 g/dL Normal 3.5-5.7 [facility] Comment on above: Performed By: #### C MP, LDH, TSH3, CBC, T4F ####[address]#### ACTH ####[facility] , Albumin/Globulin [Mass ratio] 1.6 {ratio} Normal [facility] Comment on above: Performed By: #### C MP, LDH, TSH3, CBC, T4F ####[address]#### ACTH ####[facility] , ALP [Catalytic activity/Vol] 108 U/L High 34-104 [facility] Comment on above: Performed By: #### C MP, LDH, TSH3, CBC, T4F ####[address]#### ACTH ####[facility] , ALT [Catalytic activity/Vol] 24 U/L Normal 7-52 [facility] Comment on above: Performed By: #### C MP, LDH, TSH3, CBC, T4F ####[address]#### ACTH ####[facility] , Anion gap [Moles/Vol] Not performed Normal 6.0-15.0 [facility] Comment on above: Result Comment: --- 12/30/22 1038 --- Gap previously reported as: 10.2 mEq/L Performed By: #### C MP, LDH, TSH3, CBC, T4F ####[place] [address] [place]#### ACTH ####[facility] , AST [Catalytic activity/Vol] 22 U/L Normal 13-39 [facility] Comment on above: Performed By: #### C MP, LDH, TSH3, CBC, T4F ####[place] [address] [place]#### ACTH ####[facility] , Bilirubin [Mass/Vol] 0.5 mg/dL Normal 0.3-1.0 [facility] Comment on above: Performed By: #### C MP, LDH, TSH3, CBC, T4F ####[place] [address] [place]#### ACTH ####[facility] , Calcium [Mass/Vol] 9.1 mg/dL Normal 8.6-10.3 [facility] Comment on above: Performed By: #### C MP, LDH, TSH3, CBC, T4F ####[address]#### ACTH ####[facility] , Chloride [Moles/Vol] 104 mmol/L Normal 98-107 [facility] Comment on above: Performed By: #### C MP, LDH, TSH3, CBC, T4F ####[place] [address] [place]#### ACTH ####[facility] , CO2 [Moles/Vol] 30.7 mmol/L Normal 21.0-31.0 [facility] Comment on above: Performed By: #### C MP, LDH, TSH3, CBC, T4F ####[place] [address] [place]#### ACTH ####[facility] , Creatinine [Mass/Vol] 0.92 mg/dL Normal 0.60-1.20 [facility] Comment on above: Performed By: #### C MP, LDH, TSH3, CBC, T4F ####[place] [address] [place]#### ACTH ####[facility] , Creatinine Clr Calc Pharmacy 54.88 [facility] Comment on above: Performed By: #### C MP, LDH, TSH3, CBC, T4F ####[address]#### ACTH ####[facility] , GFR/1.73 sq M.predicted MDRD (S/P/Bld) [Vol rate/Area] mL/min/{1.73_m2} [facility] Comment on above: Performed By: #### C MP, LDH, TSH3, CBC, T4F ####[place] [address] [place]#### ACTH ####[facility] , Globulin (S) [Mass/Vol] 2.5 g/dL [facility] Comment on above: Performed By: #### C MP, LDH, TSH3, CBC, T4F ####[place] [address] [place]#### ACTH ####[facility] , Glucose [Mass/Vol] 102 mg/dL High 70-100 [facility] Comment on above: Result Comment: [place] Glucose Reference Range is dependent on time and content of last meal. Glucose of more than 200 mg/dL in a nonstressed, ambulatory subject supports the diagnosis of Diabetes Mellitus. ADA recommended reference range Performed By: #### C MP, LDH, TSH3, CBC, T4F ####[place] [address] [place]#### ACTH ####[facility] , Potassium Normal 3.5-5.1 [facility] Comment on above: Result Comment: Spec imen hemolyzed, redraw requested --- 12/30/22 1036 --- K previously reported as: 3.9 mmol/L Hemolysis is present at a level that could interfere with the result. Performed By: #### C MP, LDH, TSH3, CBC, T4F ####[address] [place] [address] [place]#### ACTH ####[facility] , Protein [Mass/Vol] 6.5 g/dL Normal 6.4-8.9 [facility] Comment on above: Performed By: #### C MP, LDH, TSH3, CBC, T4F ####[place] [address] [place]#### ACTH ####[facility] , Sodium [Moles/Vol] 141 mmol/L Normal 136-145 [facility] Comment on above: Performed By: #### C MP, LDH, TSH3, CBC, T4F ####[place] [address] [place]#### ACTH ####[facility] , Urea nitrogen [Mass/Vol] 17 mg/dL Normal 7-25 [facility] Comment on above: Performed By: #### C MP, LDH, TSH3, CBC, T4F ####[place] [address] [place]#### ACTH ####[facility] , Creatinine [Mass/volume] in Serum or PlasmaOrdered By: Sly Benson on 12-30-2022 Creatinine [Mass/Vol] 0.92 mg/dL 0.60-1.20 [facility] Eosinophils Auto (Bld) [#/Vo l]Ordered By: Sly Benson on 12-30-2022 Eosinophils (Bld) [#/Vol] 0.1 10*3/uL 0.0-0.45 [facility] Eosinophils/100 WBC Auto (Bl d)Ordered By: Sly Benson on 12-30-2022 Eosinophils/100 WBC (Bld) 1.5 % . [facility] Erythrocyte distribution wid th Auto (RBC) [Ratio]Ordered By: Sly Benson on 12-30-2022 Erythrocyte distribution width (RBC) [Ratio] 13.6 % 11.9-15.3 [facility] Free T4 (Free Thyroxine)on 0 12-30-2022 Free T4 [Mass/Vol] 1.03 ng/dL Normal 0.61-1.12 [facility] Comment on above: Performed By: #### C MP, LDH, TSH3, CBC, T4F ####[facility] [address] [place] [address] [place]#### ACTH ####[facility] , Globulin Calc (S) [Mass/Vol] Ordered By: Sly Benson on 12-30-2022 Globulin (S) [Mass/Vol] 2.5 g/dL [facility] Glucose [Mass/volume] in Ser um or PlasmaOrdered By: Sly Benson on 12-30-2022 Glucose [Mass/Vol] 102 mg/dL 70-100 [facility] Comment on above: ADA recommended refe rence rangeRandom Glucose Reference Range is dependent on time and content of last meal. Glucose of more than 200 mg/dL in a nonstressed, ambulatory subject supports the diagnosis of Diabetes Mellitus. Hematocrit Auto (Bld) [Volum e fraction]Ordered By: Sly Benson on 12-30-2022 Hematocrit (Bld) [Volume fraction] 39.0 % 34.0-46.4 [facility] Hemoglobin [Mass/volume] in BloodOrdered By: Sly Benson on 12-30-2022 Hemoglobin (Bld) [Mass/Vol] 13.4 g/dL 11.8-15.4 [facility] LDH Lactate Dehydrogenaseon 12-30-2022 LDH Lactate Dehydrogenase 211 U/L Normal 140-271 [facility] Comment on above: Result Comment: Hemo lysis is present at a level that could interfere with the result. Performed By: #### C MP, LDH, TSH3, CBC, T4F ####[facility] [id number] [place] [address] [place]#### ACTH ####[facility] , Lactate dehydrogenase [Enzym atic activity/volume] in Serum or Plasma by Lactate to pyOrdered By: Sly Benson on 12-30-2022 LDH Lactate to pyruvate reaction [Catalytic activity/Vol] 211 U/L 140-271 [facility] Comment on above: Hemolysis is present at a level that could interfere with the result. Leukocytes [#/volume] correc margot for nucleated erythrocytes in Blood by Automated counOrdered By: Sly Benson on 12-30-2022 WBC corrected for nucl RBC Auto (Bld) [#/Vol] 6.8 10*3/uL 3.8-11.6 [facility] Lymphocytes Auto (Bld) [#/Vo l]Ordered By: Sly Benson on 12-30-2022 Lymphocytes (Bld) [#/Vol] 1.6 10*3/uL 1.00-4.8 [facility] Lymphocytes/100 WBC Auto (Bl d)Ordered By: Sly Benson on 12-30-2022 Lymphocytes/100 WBC (Bld) 24.0 % . [facility] MCH Auto (RBC) [Entitic mass ]Ordered By: Sly Benson on 12-30-2022 MCH (RBC) [Entitic mass] 30.0 pg 24.7-34.3 [facility] MCHC Auto (RBC) [Mass/Vol]Or dered By: Sly Benson on 12-30-2022 MCHC (RBC) [Mass/Vol] 34.3 g/dL 32.0-35.0 [facility] MCV Auto (RBC) [Entitic vol] Ordered By: Sly Benson on 12-30-2022 MCV (RBC) [Entitic vol] 87.4 fL 80-100 [facility] Monocytes Auto (Bld) [#/Vol] Ordered By: Sly Benson on 12-30-2022 Monocytes (Bld) [#/Vol] 0.6 10*3/uL 0.0-0.8 [facility] Monocytes/100 WBC Auto (Bld) Ordered By: Sly Benson on 12-30-2022 Monocytes/100 WBC (Bld) 9.0 % . [facility] Neutrophils Auto (Bld) [#/Vo l]Ordered By: Sly Benson on 12-30-2022 Neutrophils (Bld) [#/Vol] 4.4 10*3/uL 1.8-7.7 [facility] Neutrophils/100 WBC Auto (Bl d)Ordered By: Sly Benson on 12-30-2022 Neutrophils/100 WBC (Bld) 65.0 % . [facility] No Panel InformationOrdered By: Sly Benson on 12-30-2022 Adrenocorticotropic Hormone 28.9 pg/mL 7.2-63.3 [facility] Comment on above: ACTH reference inter jamel for samples collected between 7 and10 AM.Performed at: [facility] [id number] Director: Coleman Lacy PhD, Phone: [phone] Estimated GFR (CKD-EPI) > 60.0 mL/Min [facility] Creatinine Clearance (Chem 54.88 [facility] Nucleated erythrocytes [Pres ence] in Blood by Automated countOrdered By: Sly Benson on 12-30-2022 Nucleated RBC Auto Ql (Bld) 0.0 /100{WBC} 0-0.5 [facility] Platelet mean volume Auto (B ld) [Entitic vol]Ordered By: Sly Benson on 12-30-2022 Platelet mean volume (Bld) [Entitic vol] 7.4 fL 6.3-10.7 [facility] Platelets Auto (Bld) [#/Vol] Ordered By: Sly Benson on 12-30-2022 Platelets (Bld) [#/Vol] 171 10*3/uL 150-450 [facility] Potassium [Moles/volume] in Serum or PlasmaOrdered By: Sly Benson on 12-30-2022 Potassium [Moles/Vol] See comment 3.5-5.1 [facility] Comment on above: Specimen hemolyzed, redraw requested --- 12/30/22 1036 ---K previously reported as: 3.9 mmol/LHemolysis is present at a level that could interfere with the result. Protein [Mass/volume] in Ser um or PlasmaOrdered By: Sly eBnson on 12-30-2022 Protein [Mass/Vol] 6.5 g/dL 6.4-8.9 [facility] RBC Auto (Bld) [#/Vol]Ordere d By: Sly Benson on 12-30-2022 RBC (Bld) [#/Vol] 4.46 10*6/uL 3.60-5.00 [facility] Serum or plasma albumin/glob ulin mass ratioOrdered By: Sly Benson on 12-30-2022 Albumin/Globulin [Mass ratio] 1.6 {ratio} [facility] Serum or plasma anion gap de terminationOrdered By: Sly Benson on 12-30-2022 Anion gap [Moles/Vol] TNP [facility] Comment on above: Test not performed-- - 12/30/22 1038 ---Gap previously reported as: 10.2 mEq/L Sodium [Moles/volume] in Ser um or PlasmaOrdered By: Sly Benson on 12-30-2022 Sodium [Moles/Vol] 141 mmol/L 136-145 [facility] Thyroid Stimulating Hormoneo n 12-30-2022 TSH Qn 2.31 m[IU]/L Normal 0.45-5.33 [facility] Comment on above: Result Comment: PERF ORMED BY: [facility] [address] [place] [address] PATHOLOGIST WEB DESIGN SPECIALIST WAYLON SAUNDERS M.D. Performed By: #### C MP, LDH, TSH3, CBC, T4F ####[facility] [id number]#### ACTH ####[facility] , Thyrotropin [Units/volume] i n Serum or PlasmaOrdered By: Sly Benson on 12-30-2022 TSH Qn 2.31 m[IU]/L 0.45-5.33 [facility] Thyroxine (T4) free [Mass/vo lume] in Serum or PlasmaOrdered By: Sly Benson on 12-30-2022 Free T4 [Mass/Vol] 1.03 ng/dL 0.61-1.12 [facility] Urea nitrogen [Mass/volume] in Serum or PlasmaOrdered By: Sly Benson on 12-30-2022 Urea nitrogen [Mass/Vol] 17 mg/dL 7-25 [facility] WBC Auto (Bld) [#/Vol]Ordere d By: Sly Benson on 12-30-2022 WBC (Bld) [#/Vol] 6.8 10*3/uL 3.8-11.6 [facility] Adrenocorticotropic Hormone PLon 10-31-[address] 35.2 pg/mL Normal 7.2-63.3 [facility] Comment on above: Result Comment: ACTH reference interval for samples collected between 7 and 10 AM. Performed at: - [facility] [address] [id number] Manager Of Production: Coleman Lacy PhD, Phone: [phone] PERFORMED BY: [facility] [address] [place] [address] PATHOLOGIST WEB DESIGN SPECIALIST WAYLON SAUNDERS M.D. Performed By: #### T SH3, LDH, CBC, CMP, T4F ####[facility] [id number]#### ACTH ####[facility] , Alanine aminotransferase [En zymatic activity/volume] in Serum or PlasmaOrdered By: Sly Benson on 10-31-2022 ALT [Catalytic activity/Vol] 22 U/L 7 [facility] Albumin [Mass/volume] in Ser um or Plasma by Bromocresol green (BCG) dye binding methoOrdered By: Sly Benson on 10-31-2022 Albumin BCG dye [Mass/Vol] 4.0 g/dL 3.5-5.7 [facility] Alkaline phosphatase [Enzyma tic activity/volume] in Serum or PlasmaOrdered By: Sly Benson on 10-31-2022 ALP [Catalytic activity/Vol] 98 U/L 34-104 [facility] Aspartate aminotransferase [ Enzymatic activity/volume] in Serum or PlasmaOrdered By: Sly Benson on 10-31-2022 AST [Catalytic activity/Vol] 28 U/L 13-39 [facility] Basophils Auto (Bld) [#/Vol] Ordered By: Sly Benson on 10-31-2022 Basophils (Bld) [#/Vol] 0.1 10*3/uL 0.0-0.2 [facility] Basophils/100 WBC Auto (Bld) Ordered By: Sly Benson on 10-31-2022 Basophils/100 WBC (Bld) 0.9 % . [facility] Bilirubin.total [Mass/volume ] in Serum or PlasmaOrdered By: Sly Benson on 10-31-2022 Bilirubin [Mass/Vol] 0.7 mg/dL 0.3-1.[address] [facility] [address] abdomen pelvis w conon CT abdomen pelvis w con [facility] [address] [place] [address] CT Scan Report Signed Patient: Theresa Luu MR#: [id number] : 1945 Acct:[id number] Age/Sex: 77 / F ADM Date: 10/31/22 Loc: Room: Type: [facility] Attending Dr: Sly Benson II DO Copies to: ANTOINETTE Dan II, DO Ordering Provider: Zenobia Parker APRN Date of Service: 10/31/22 CT/CT abdomen pelvis w con: restaging ([id number]) CT/CT chest w con: restaging CT CHEST, [...] Monroe Jr., D.OWilbert10/31/2022 2:24 PM Dictation Location: [place] [address] Transcribed By: [facility] 10/31/22 1424 Dictated By: Sylvain Monroe Jr, DO 10/31/22 1415 Signed By: 10/31/22 1424 Normal [facility] Calcium [Mass/volume] in Ser um or PlasmaOrdered By: Sly Benson on 10-31-2022 Calcium [Mass/Vol] 8.9 mg/dL 8.6-10.3 [facility] Carbon dioxide, total [Moles /volume] in Serum or PlasmaOrdered By: Sly Benson on 10-31-2022 CO2 [Moles/Vol] 28.6 mmol/L 21.0-31.0 [facility] Chloride [Moles/volume] in S mellissa or PlasmaOrdered By: Sly Benson on 10-31-2022 Chloride [Moles/Vol] 104 mmol/L 98-107 [facility] Complete Blood Count Auto Di ffon 10-31-2022 Basophils (Bld) [#/Vol] 0.1 10*3/uL Normal 0.0-0.2 [facility] Comment on above: Result Comment: PERF ORMED BY: [facility] [address] [place] [address] PATHOLOGIST WEB DESIGN SPECIALIST WAYLON SAUNDERS M.D. Performed By: #### T SH3, LDH, CBC, CMP, T4F ####[address]#### ACTH ####[facility] , Basophils/100 WBC (Bld) 0.9 % Normal . [facility] Comment on above: Performed By: #### T SH3, LDH, CBC, CMP, T4F ####[address]#### ACTH ####[facility] , Eosinophils (Bld) [#/Vol] 0.1 10*3/uL Normal 0.0-0.45 [facility] Comment on above: Performed By: #### T SH3, LDH, CBC, CMP, T4F ####[place] [address] [place]#### ACTH ####[facility] , Eosinophils/100 WBC (Bld) 1.8 % Normal . [facility] Comment on above: Performed By: #### T SH3, LDH, CBC, CMP, T4F ####[place] [address] [place]#### ACTH ####[facility] , Erythrocyte distribution width (RBC) [Ratio] 15.0 % Normal 11.9-15.3 [facility] Comment on above: Performed By: #### T SH3, LDH, CBC, CMP, T4F ####[address]#### ACTH ####[facility] , Hematocrit (Bld) [Volume fraction] 41.3 % Normal 34.0-46.4 [facility] Comment on above: Performed By: #### T SH3, LDH, CBC, CMP, T4F ####[address]#### ACTH ####[facility] , Hemoglobin (Bld) [Mass/Vol] 14.0 g/dL Normal 11.8-15.4 [facility] Comment on above: Performed By: #### T SH3, LDH, CBC, CMP, T4F ####[address]#### ACTH ####[facility] , Lymphocytes (Bld) [#/Vol] 1.8 10*3/uL Normal 1.00-4.8 [facility] Comment on above: Performed By: #### T SH3, LDH, CBC, CMP, T4F ####[address]#### ACTH ####[facility] , Lymphocytes/100 WBC (Bld) 26.5 % Normal . [facility] Comment on above: Performed By: #### T SH3, LDH, CBC, CMP, T4F ####[place] [address] [place]#### ACTH ####[facility] , MCH (RBC) [Entitic mass] 29.7 pg Normal 24.7-34.3 [facility] Comment on above: Performed By: #### T SH3, LDH, CBC, CMP, T4F ####[place] [address] [place]#### ACTH ####[facility] , MCV (RBC) [Entitic vol] 87.8 fL Normal 80-100 [facility] Comment on above: Performed By: #### T SH3, LDH, CBC, CMP, T4F ####[place] [address] [place]#### ACTH ####[facility] , Mean Corpuscular HGB Conc 33.8 g/dL Normal 32.0-35.0 [facility] Comment on above: Performed By: #### T SH3, LDH, CBC, CMP, T4F ####[address]#### ACTH ####[facility] , Monocytes (Bld) [#/Vol] 0.8 10*3/uL Normal 0.0-0.8 [facility] Comment on above: Performed By: #### T SH3, LDH, CBC, CMP, T4F ####[place] [address] [place]#### ACTH ####[facility] , Monocytes/100 WBC (Bld) 11.2 % Normal . [facility] Comment on above: Performed By: #### T SH3, LDH, CBC, CMP, T4F ####[place] [address] [place]#### ACTH ####[facility] , Neutrophils (Bld) [#/Vol] 4.0 10*3/uL Normal 1.8-7.7 [facility] Comment on above: Performed By: #### T SH3, LDH, CBC, CMP, T4F ####[place] [address] [place]#### ACTH ####[facility] , Neutrophils/100 WBC (Bld) 59.6 % Normal . [facility] Comment on above: Performed By: #### T SH3, LDH, CBC, CMP, T4F ####[place] [address] [place]#### ACTH ####[facility] , NRBC% 0.0 /100{WBC} Normal 0-0.5 [facility] Comment on above: Performed By: #### T SH3, LDH, CBC, CMP, T4F ####[address]#### ACTH ####[facility] , Platelet mean volume (Bld) [Entitic vol] 7.1 fL Normal 6.3-10.7 [facility] Comment on above: Performed By: #### T SH3, LDH, CBC, CMP, T4F ####[address]#### ACTH ####[facility] , Platelets (Bld) [#/Vol] 201 10*3/uL Normal 150-450 [facility] Comment on above: Performed By: #### T SH3, LDH, CBC, CMP, T4F ####[address]#### ACTH ####[facility] , RBC (Bld) [#/Vol] 4.70 10*6/uL Normal 3.60-5.00 [facility] Comment on above: Performed By: #### T SH3, LDH, CBC, CMP, T4F ####[place] [address] [place]#### ACTH ####[facility] , WBC (Bld) [#/Vol] 6.8 10*3/uL Normal 3.8-11.6 [facility] Comment on above: Performed By: #### T SH3, LDH, CBC, CMP, T4F ####[place] [address] [place]#### ACTH ####[facility] , Comprehensive Metabolic Pane eileen 10-31-2022 Albumin [Mass/Vol] 4.0 g/dL Normal 3.5-5.7 [facility] Comment on above: Performed By: #### T SH3, LDH, CBC, CMP, T4F ####[place] [address] [place]#### ACTH ####[facility] , Albumin/Globulin [Mass ratio] 1.4 {ratio} Normal [facility] Comment on above: Performed By: #### T SH3, LDH, CBC, CMP, T4F ####[address]#### ACTH ####[facility] , ALP [Catalytic activity/Vol] 98 U/L Normal 34-104 [facility] Comment on above: Performed By: #### T SH3, LDH, CBC, CMP, T4F ####[address]#### ACTH ####[facility] , ALT [Catalytic activity/Vol] 22 U/L Normal 7-52 [facility] Comment on above: Performed By: #### T SH3, LDH, CBC, CMP, T4F ####[place] [address] [place]#### ACTH ####[facility] , Anion gap [Moles/Vol] 12.2 mmol/L Normal 6.0-15.0 [facility] Comment on above: Performed By: #### T SH3, LDH, CBC, CMP, T4F ####[place] [address] [place]#### ACTH ####[facility] , AST [Catalytic activity/Vol] 28 U/L Normal 13-39 [facility] Comment on above: Performed By: #### T SH3, LDH, CBC, CMP, T4F ####[place] [address] [place]#### ACTH ####[facility] , Bilirubin [Mass/Vol] 0.7 mg/dL Normal 0.3-1.0 [facility] Comment on above: Performed By: #### T SH3, LDH, CBC, CMP, T4F ####[place] [address] [place]#### ACTH ####[facility] , Calcium [Mass/Vol] 8.9 mg/dL Normal 8.6-10.3 [facility] Comment on above: Performed By: #### T SH3, LDH, CBC, CMP, T4F ####[address]#### ACTH ####[facility] , Chloride [Moles/Vol] 104 mmol/L Normal 98-107 [facility] Comment on above: Performed By: #### T SH3, LDH, CBC, CMP, T4F ####[place] [address] [place]#### ACTH ####[facility] , CO2 [Moles/Vol] 28.6 mmol/L Normal 21.0-31.0 [facility] Comment on above: Performed By: #### T SH3, LDH, CBC, CMP, T4F ####[place] [address] [place]#### ACTH ####[facility] , Creatinine [Mass/Vol] 0.93 mg/dL Normal 0.60-1.20 [facility] Comment on above: Performed By: #### T SH3, LDH, CBC, CMP, T4F ####[place] [address] [place]#### ACTH ####[facility] , Creatinine Clr Calc Pharmacy 54.88 Normal [facility] Comment on above: Performed By: #### T SH3, LDH, CBC, CMP, T4F ####[place] [address] [place]#### ACTH ####[facility] , GFR/1.73 sq M.predicted MDRD (S/P/Bld) [Vol rate/Area] mL/min/{1.73_m2} [facility] Comment on above: Performed By: #### T SH3, LDH, CBC, CMP, T4F ####[address]#### ACTH ####[facility] , Globulin (S) [Mass/Vol] 2.9 g/dL [facility] Comment on above: Performed By: #### T SH3, LDH, CBC, CMP, T4F ####[address]#### ACTH ####[facility] , Glucose [Mass/Vol] 100 mg/dL Normal 70-100 [facility] Comment on above: Result Comment: [place] Glucose Reference Range is dependent on time and content of last meal. Glucose of more than 200 mg/dL in a nonstressed, ambulatory subject supports the diagnosis of Diabetes Mellitus. ADA recommended reference range Performed By: #### T SH3, LDH, CBC, CMP, T4F ####[place] [address] [place]#### ACTH ####[facility] , Potassium [Moles/Vol] 3.8 mmol/L Normal 3.5-5.1 [facility] Comment on above: Performed By: #### T SH3, LDH, CBC, CMP, T4F ####[place] [address] [place]#### ACTH ####[facility] , Protein [Mass/Vol] 6.9 g/dL Normal 6.4-8.9 [facility] Comment on above: Performed By: #### T SH3, LDH, CBC, CMP, T4F ####[facility] [id number] [place] [address] [place]#### ACTH ####[facility] , Sodium [Moles/Vol] 141 mmol/L Normal 136-145 [facility] Comment on above: Performed By: #### T SH3, LDH, CBC, CMP, T4F ####[facility] [id number] [place] [address] [place]#### ACTH ####[facility] , Urea nitrogen [Mass/Vol] 19 mg/dL Normal 7-25 [facility] Comment on above: Performed By: #### T SH3, LDH, CBC, CMP, T4F ####[facility] [place] [address] [place]#### ACTH ####[facility] , Creatinine [Mass/volume] in Serum or PlasmaOrdered By: Sly Benson on 10-31-2022 Creatinine [Mass/Vol] 0.93 mg/dL 0.60-1.20 [facility] Eosinophils Auto (Bld) [#/Vo l]Ordered By: Sly Benson on 10-31-2022 Eosinophils (Bld) [#/Vol] 0.1 10*3/uL 0.0-0.45 [facility] Eosinophils/100 WBC Auto (Bl d)Ordered By: Sly Benson on 10-31-2022 Eosinophils/100 WBC (Bld) 1.8 % . [facility] Erythrocyte distribution wid th Auto (RBC) [Ratio]Ordered By: Sly Benson on 10-31-2022 Erythrocyte distribution width (RBC) [Ratio] 15.0 % 11.9-15.3 [facility] Free T4 (Free Thyroxine)on 0 10-31-2022 Free T4 [Mass/Vol] 1.02 ng/dL Normal 0.61-1.12 [facility] Comment on above: Performed By: #### T SH3, LDH, CBC, CMP, T4F ####[facility] [id number] [facility]#### ACTH ####[facility] , Globulin Calc (S) [Mass/Vol] Ordered By: Sly Benson on 10-31-2022 Globulin (S) [Mass/Vol] 2.9 g/dL [facility] Glucose [Mass/volume] in Ser um or PlasmaOrdered By: Sly Benson on 10-31-2022 Glucose [Mass/Vol] 100 mg/dL 70-100 [facility] Comment on above: ADA recommended refe rence rangeRandom Glucose Reference Range is dependent on time and content of last meal. Glucose of more than 200 mg/dL in a nonstressed, ambulatory subject supports the diagnosis of Diabetes Mellitus. Hematocrit Auto (Bld) [Volum e fraction]Ordered By: Sly Benson on 10-31-2022 Hematocrit (Bld) [Volume fraction] 41.3 % 34.0-46.4 [facility] Hemoglobin [Mass/volume] in BloodOrdered By: Sly Benson on 10-31-2022 Hemoglobin (Bld) [Mass/Vol] 14.0 g/dL 11.8-15.4 [facility] LDH Lactate Dehydrogenaseon 10-31-2022 LDH Lactate Dehydrogenase 226 U/L Normal 140-271 [facility] Comment on above: Performed By: #### T SH3, LDH, CBC, CMP, T4F ####[facility] [id number] [place] [address] [facility]#### ACTH ####[facility] , Lactate dehydrogenase [Enzym atic activity/volume] in Serum or Plasma by Lactate to pyOrdered By: Sly Benson on 10-31-2022 LDH Lactate to pyruvate reaction [Catalytic activity/Vol] 226 U/L 140-271 [facility] Leukocytes [#/volume] correc margot for nucleated erythrocytes in Blood by Automated counOrdered By: Sly Benson on 10-31-2022 WBC corrected for nucl RBC Auto (Bld) [#/Vol] 6.8 10*3/uL 3.8-11.6 [facility] Lymphocytes Auto (Bld) [#/Vo l]Ordered By: Sly Benson on 10-31-2022 Lymphocytes (Bld) [#/Vol] 1.8 10*3/uL 1.00-4.8 [facility] Lymphocytes/100 WBC Auto (Bl d)Ordered By: Sly Benson on 10-31-2022 Lymphocytes/100 WBC (Bld) 26.5 % . [facility] MCH Auto (RBC) [Entitic mass ]Ordered By: Sly Benson on 10-31-2022 MCH (RBC) [Entitic mass] 29.7 pg 24.7-34.3 [facility] MCHC Auto (RBC) [Mass/Vol]Or dered By: Sly Benson on 10-31-2022 MCHC (RBC) [Mass/Vol] 33.8 g/dL 32.0-35.0 [facility] MCV Auto (RBC) [Entitic vol] Ordered By: Sly Benson on 10-31-2022 MCV (RBC) [Entitic vol] 87.8 fL 80-100 [facility] Monocytes Auto (Bld) [#/Vol] Ordered By: Sly Benson on 10-31-2022 Monocytes (Bld) [#/Vol] 0.8 10*3/uL 0.0-0.8 [facility] Monocytes/100 WBC Auto (Bld) Ordered By: Sly Benson on 10-31-2022 Monocytes/100 WBC (Bld) 11.2 % . [facility] Neutrophils Auto (Bld) [#/Vo l]Ordered By: Sly Benson on 10-31-2022 Neutrophils (Bld) [#/Vol] 4.0 10*3/uL 1.8-7.7 [facility] Neutrophils/100 WBC Auto (Bl d)Ordered By: Sly Benson on 10-31-2022 Neutrophils/100 WBC (Bld) 59.6 % . [facility] No Panel InformationOrdered By: Sly Benson on 10-31-2022 Adrenocorticotropic Hormone 35.2 pg/mL 7.2-63.3 [facility] Comment on above: ACTH reference inter jamel for samples collected between 7 and10 AM.Performed at: [facility] [address] [id number] Director: Coleman Lacy PhD, Phone: [phone] Estimated GFR (CKD-EPI) > 60.0 mL/Min [facility] Creatinine Clearance (Chem 54.88 [facility] Nucleated erythrocytes [Pres ence] in Blood by Automated countOrdered By: Sly Benson on 10-31-2022 Nucleated RBC Auto Ql (Bld) 0.0 /100{WBC} 0-0.5 [facility] Platelet mean volume Auto (B ld) [Entitic vol]Ordered By: Sly Benson on 10-31-2022 Platelet mean volume (Bld) [Entitic vol] 7.1 fL 6.3-10.7 [facility] Platelets Auto (Bld) [#/Vol] Ordered By: Sly Benson on 10-31-2022 Platelets (Bld) [#/Vol] 201 10*3/uL 150-450 [facility] Potassium [Moles/volume] in Serum or PlasmaOrdered By: Sly Benson on 10-31-2022 Potassium [Moles/Vol] 3.8 mmol/L 3.5-5.1 [facility] Protein [Mass/volume] in Ser um or PlasmaOrdered By: Sly Benson on 10-31-2022 Protein [Mass/Vol] 6.9 g/dL 6.4-8.9 [facility] RBC Auto (Bld) [#/Vol]Ordere d By: Sly Benson on 10-31-2022 RBC (Bld) [#/Vol] 4.70 10*6/uL 3.60-5.00 [facility] Serum or plasma albumin/glob ulin mass ratioOrdered By: Sly Benson on 10-31-2022 Albumin/Globulin [Mass ratio] 1.4 {ratio} [facility] Serum or plasma anion gap de terminationOrdered By: Sly Benson on 10-31-2022 Anion gap [Moles/Vol] 12.2 mmol/L 6.0-15.0 [facility] Sodium [Moles/volume] in Ser um or PlasmaOrdered By: Sly Benson on 10-31-2022 Sodium [Moles/Vol] 141 mmol/L 136-145 [facility] Thyroid Stimulating Hormoneo n 10-31-2022 TSH Qn 2.49 m[IU]/L Normal 0.45-5.33 [facility] Comment on above: Result Comment: PERF ORMED BY: [facility] [address] [facility]air[facility] [place] [id number] PATHOLOGIST [employer] DES[employer] SPECIALIST WAYLON SAUNDERS M.D. Performed By: #### T SH3, LDH, CBC, CMP, T4F ####[facility] [address]#### ACTH ####[facility] , Thyrotropin [Units/volume] i n Serum or PlasmaOrdered By: Sly Benson on 10-31-2022 TSH Qn 2.49 m[IU]/L 0.45-5.33 [facility] Thyroxine (T4) free [Mass/vo lume] in Serum or PlasmaOrdered By: Sly Benson on 10-31-2022 Free T4 [Mass/Vol] 1.02 ng/dL 0.61-1.12 [facility] Urea nitrogen [Mass/volume] in Serum or PlasmaOrdered By: Sly Benson on 10-31-2022 Urea nitrogen [Mass/Vol] 19 mg/dL 7-25 [facility] WBC Auto (Bld) [#/Vol]Ordere d By: Sly Benson on 10-31-2022 WBC (Bld) [#/Vol] 6.8 10*3/uL 3.8-11.6 [facility] ACTH, PLASMAon 10-04-2022 ACTH, Plasma 48.7 pg/mL Normal 7.2-63.3 [facility] Comment on above: Result Comment: ACTH reference interval for samples collected between 7 and 10 AM. Performed By: #### A CTHP #### [facility] [address] [address] [address] Alesia Meyers CBC AUTO DIFFon 10-03-2022 BASO # 0.1 103/ul Normal 0.0-0.1 [facility] Comment on above: Performed By: #### T SH, CMP, LDH #### [facility] [address] [place] [address] Dr. Alesia Meyers Basophils/100 WBC (Bld) 1.2 % Normal 0.2-2.0 [facility] Comment on above: Performed By: #### T SH, CMP, LDH #### [facility] [address] [place] [address] Dr. Alesia Meyers EO # 0.2 103/ul Normal 0.0-0.7 [facility] Comment on above: Performed By: #### T SH, CMP, LDH #### [facility] [address] [place] [address] Dr. Alesia Meyers Eosinophils/100 WBC (Bld) 2.5 % Normal 0.9-7.0 [facility] Comment on above: Performed By: #### T SH, CMP, LDH #### [facility] [address] [place] [address] Dr. Alesia Meyers Erythrocyte distribution width (RBC) [Ratio] 13.9 % Normal 11.0-15.0 [facility] Comment on above: Performed By: #### T SH, CMP, LDH #### [facility] [address] [place] [address] Dr. Alseia Meyers Hematocrit (Bld) [Volume fraction] 41.9 % Normal 36.0-48.0 [facility] Comment on above: Performed By: #### T SH, CMP, LDH #### [facility] [address] [place] [address] Dr. Alesia Meyers Hemoglobin (Bld) [Mass/Vol] 13.6 g/dL Normal 12.0-16.0 [facility] Comment on above: Performed By: #### T SH, CMP, LDH #### [facility] [address] [place] [address] Dr. Alesia Meyers IG # 0.04 10e3/ul Critically high 0.00-0.03 [facility] Comment on above: Performed By: #### T SH, CMP, LDH #### [facility] [address] [address] [address] Alesia Meyers IG % 0.7 % Critically high 0.0-0.5 [facility] Comment on above: Performed By: #### T SH, CMP, LDH #### [facility] [address] [address] [address] Alesia Meyers LYMPH # 2.1 103/ul Normal 1.2-3.8 [facility] Comment on above: Performed By: #### T SH, CMP, LDH #### [facility] [address] [address] [address] Alesia Meyers Lymphocytes/100 WBC (Bld) 35.5 % Normal 20.5-60.0 [facility] Comment on above: Performed By: #### T SH, CMP, LDH #### [facility] [address] [place] [address] Dr. Alesia Meyers MANUAL DIFF REQ NO Normal [facility] Comment on above: Performed By: #### T SH, CMP, LDH #### [facility] [address] [place] [address] Dr. Alesia Meyers MCH (RBC) [Entitic mass] 28.9 pg Normal 26.7-34.0 [facility] Comment on above: Performed By: #### T SH, CMP, LDH #### [facility] [address] [place] [address] Dr. Alesia Meyers MCHC (RBC) [Mass/Vol] 32.5 g/dL Normal 29.9-35.2 [facility] Comment on above: Performed By: #### T SH, CMP, LDH #### [facility] [address] [address] [address] Alesia Meyers MCV (RBC) [Entitic vol] 89.1 fL Normal 81.0-99.0 [facility] Comment on above: Performed By: #### T SH, CMP, LDH #### [facility] [address] [address] [address] Alesia Meyers MONO # 0.6 103/ul Normal 0.3-0.8 [facility] Comment on above: Performed By: #### T SH, CMP, LDH #### [facility] [address] [place] [address] Dr. Alesia Meyers Monocytes/100 WBC (Bld) 10.8 % Normal 1.7-12.0 [facility] Comment on above: Performed By: #### T SH, CMP, LDH #### [facility] [address] [place] [address] Dr. Alesia Meyers NEUT # 2.9 103/ul Normal 1.4-6.5 [facility] Comment on above: Performed By: #### T SH, CMP, LDH #### [facility] [address] [place] [address] Dr. Alesia Meyers Neutrophils/100 WBC (Bld) 49.3 % Normal 43.0-75.0 [facility] Comment on above: Performed By: #### T SH, CMP, LDH #### [facility] [address] [place] [address] Dr. Alesia Meyers Platelet mean volume (Bld) [Entitic vol] 8.8 fL Critically low 9.5-13.5 [facility] Comment on above: Performed By: #### T SH, CMP, LDH #### [facility] [address] [place] [address] Dr. Alesia Meyers PLT 226 103/ul Normal 150-450 [facility] Comment on above: Performed By: #### T SH, CMP, LDH #### [facility] [address] [place] [address] Dr. Alesia Meyers RBC 4.70 106/ul Normal 4.20-5.40 [facility] Comment on above: Performed By: #### T SH, CMP, LDH #### [facility] [address] [place] [address] Dr. Alesia Meyers WBC 5.9 103/ul Normal 4.0-11.0 [facility] Comment on above: Performed By: #### T SH, CMP, LDH #### [facility] [address] [place] [address] Dr. Alesia Meyers FREE T4on 03-24-2023 Free T4 [Mass/Vol] 1.02 ng/dL Normal 0.76-1.46 [facility] Comment on above: Performed By: #### F T4 #### [facility] [address] [place] [address] Dr. Alesia Meyers LDHon 10-03-2022 LDH 212 U/L Normal 81-234 [facility] Comment on above: Performed By: #### F T4 #### [facility] [address] [place] [address] Dr. Alesia Meyers PROF 14(COMP METB)on 023 Albumin [Mass/Vol] 3.5 g/dL Normal 3.4-5.0 [facility] Comment on above: Performed By: #### F T4 #### [facility] [address] [place] [address] Dr. Alesia Meyers Albumin/Globulin [Mass ratio] 1.1 {ratio} Normal [facility] Comment on above: Performed By: #### F T4 #### [facility] [address] [place] [address] Dr. Alesia Meyers ALP [Catalytic activity/Vol] 120 U/L Critically high 46-116 [facility] Comment on above: Performed By: #### F T4 #### [facility] [address] [place] [address] Dr. Alesia Meyers ALT [Catalytic activity/Vol] 37 U/L Normal 14-59 [facility] Comment on above: Performed By: #### F T4 #### [facility] [address] [place] [address] Dr. Alesia Meyers Anion gap [Moles/Vol] 11.4 mmol/L Normal [facility] Comment on above: Performed By: #### F T4 #### [facility] [address] [place] [address] Dr. Alesia Meyers AST [Catalytic activity/Vol] 28 U/L Normal 15-37 [facility] Comment on above: Performed By: #### F T4 #### [facility] [address] [place] [address] Dr. Alesia Meyers Bilirubin [Mass/Vol] 0.4 mg/dL Normal 0.2-1.0 [facility] Comment on above: Performed By: #### F T4 #### [facility] [address] [address] [address] Alesia Meyers Calcium [Mass/Vol] 9.2 mg/dL Normal 8.5-10.1 [facility] Comment on above: Performed By: #### F T4 #### [facility] [address] [address] [address] Alesia Meyers Chloride [Moles/Vol] 105 mmol/L Normal 98-107 [facility] Comment on above: Performed By: #### F T4 #### [facility] [address] [place] [address] Dr. Alesia Meyers CO2 [Moles/Vol] 30.4 mmol/L Normal 21.0-32.0 [facility] Comment on above: Performed By: #### F T4 #### [facility] [address] [place] [address] Dr. Alesia Meyers Creatinine [Mass/Vol] 0.88 mg/dL Normal 0.55-1.02 [facility] Comment on above: Performed By: #### F T4 #### [facility] [address] [place] [address] Dr. Alesia Meyers EGFR-AF LAO >60 Normal >=60 [facility] Comment on above: Performed By: #### F T4 #### [facility] [address] [place] [address] Dr. Alesia Meyers EGFR-NON AF LAO >60 Normal >=60 [facility] Comment on above: Performed By: #### F T4 #### [facility] [address] [place] [address] Dr. Alesia Meyers Globulin (S) [Mass/Vol] 3.3 g/dL Normal [facility] Comment on above: Performed By: #### F T4 #### [facility] [address] [place] [address] Dr. Alesia Meyers Glucose [Mass/Vol] 104 mg/dL Normal 74-106 [facility] Comment on above: Performed By: #### F T4 #### [facility] [address] [address] [address] Alesia Meyers Potassium [Moles/Vol] 3.8 mmol/L Normal 3.5-5.1 [facility] Comment on above: Performed By: #### F T4 #### [facility] [address] [address] [address] Alesia Meyers Protein [Mass/Vol] 6.8 g/dL Normal 6.4-8.2 [facility] Comment on above: Performed By: #### F T4 #### [facility] [address] [address] [address] Alesia Meyers Sodium [Moles/Vol] 143 mmol/L Normal 136-145 [facility] Comment on above: Performed By: #### F T4 #### [facility] [address] [address] [address] Alesia Meyers Urea nitrogen [Mass/Vol] 19.0 mg/dL Critically high 7.0-18.0 [facility] Comment on above: Performed By: #### F T4 #### [facility] [address] [address] [address] Alesia Meyers Urea nitrogen/Creatinine [Mass ratio] 21.6 mg/mg Normal [facility] Comment on above: Performed By: #### F T4 #### [facility] [address] [address] [address] Alesia Meyers TSHon 10-03-2022 TSH 3.819 uIU/mL Critically high 0.358-3.74 0 [facility] Comment on above: Performed By: #### F T4 #### [facility] [address] [address] [address] Alesia Meyers ACTH, PLASMAon 09-06-2022 ACTH, Plasma 6.3 pg/mL Critically low 7.2-63.3 [facility] Comment on above: Result Comment: ACTH reference interval for samples collected between 7 and 10 AM. Performed By: #### T SH, CMP, LDH #### [facility] [address] [address] [address] Alesia Meyers CBC AUTO DIFFon 09-05-2022 BASO # 0.0 103/ul Normal 0.0-0.1 [facility] Comment on above: Performed By: #### T SH, CMP, LDH #### [facility] [address] [address] [address] Alesia Meyers Basophils/100 WBC (Bld) 0.3 % Normal 0.2-2.0 [facility] Comment on above: Performed By: #### T SH, CMP, LDH #### [facility] [address] [place] [address] Dr. Alesia Meyers EO # 0.1 103/ul Normal 0.0-0.7 [facility] Comment on above: Performed By: #### T SH, CMP, LDH #### [facility] [address] [place] [address] Dr. Alesia Meyers Eosinophils/100 WBC (Bld) 0.6 % Critically low 0.9-7.0 [facility] Comment on above: Performed By: #### T SH, CMP, LDH #### [facility] [address] [place] [address] Dr. Alesia Meyers Erythrocyte distribution width (RBC) [Ratio] 14.4 % Normal 11.0-15.0 [facility] Comment on above: Performed By: #### T SH, CMP, LDH #### [facility] [address] [place] [address] Dr. Alesia Meyers Hematocrit (Bld) [Volume fraction] 41.6 % Normal 36.0-48.0 [facility] Comment on above: Performed By: #### T SH, CMP, LDH #### [facility] [address] [place] [address] Dr. Alesia Meyers Hemoglobin (Bld) [Mass/Vol] 13.7 g/dL Normal 12.0-16.0 [facility] Comment on above: Performed By: #### T SH, CMP, LDH #### [facility] [address] [place] [address] Dr. Alesia Meyers IG # 0.14 10e3/ul Critically high 0.00-0.03 [facility] Comment on above: Performed By: #### T SH, CMP, LDH #### [facility] [address] [place] [address] Dr. Alesia Meyers IG % 1.6 % Critically high 0.0-0.5 [facility] Comment on above: Performed By: #### T SH, CMP, LDH #### [facility] [address] [place] [address] Dr. Alesia Meyers LYMPH # 2.7 103/ul Normal 1.2-3.8 [facility] Comment on above: Performed By: #### T SH, CMP, LDH #### [facility] [address] [place] [address] Dr. Alesia Meyers Lymphocytes/100 WBC (Bld) 30.2 % Normal 20.5-60.0 [facility] Comment on above: Performed By: #### T SH, CMP, LDH #### [facility] [address] [place] [address] Dr. Alesia Meyers MANUAL DIFF REQ NO Normal [facility] Comment on above: Performed By: #### T SH, CMP, LDH #### [facility] [address] [place] [address] Dr. Alesia Meyers MCH (RBC) [Entitic mass] 28.7 pg Normal 26.7-34.0 [facility] Comment on above: Performed By: #### T SH, CMP, LDH #### [facility] [address] [place] [address] Dr. Alesia Meyers MCHC (RBC) [Mass/Vol] 32.9 g/dL Normal 29.9-35.2 [facility] Comment on above: Performed By: #### T SH, CMP, LDH #### [facility] [address] [place] [address] Dr. Alesia Meyers MCV (RBC) [Entitic vol] 87.2 fL Normal 81.0-99.0 [facility] Comment on above: Performed By: #### T SH, CMP, LDH #### [facility] [address] [place] [address] Dr. Alesia Meyers MONO # 1.0 103/ul Critically high 0.3-0.8 [facility] Comment on above: Performed By: #### T SH, CMP, LDH #### [facility] [address] [place] [address] Dr. Alesia Meyers Monocytes/100 WBC (Bld) 10.8 % Normal 1.7-12.0 [facility] Comment on above: Performed By: #### T SH, CMP, LDH #### [facility] [address] [place] [address] Dr. Alesia Meyers NEUT # 5.0 103/ul Normal 1.4-6.5 [facility] Comment on above: Performed By: #### T SH, CMP, LDH #### [facility] [address] [place] [address] Dr. Alesia Meyers Neutrophils/100 WBC (Bld) 56.5 % Normal 43.0-75.0 [facility] Comment on above: Performed By: #### T SH, CMP, LDH #### [facility] [address] [place] [address] Dr. Alesia Meyers Platelet mean volume (Bld) [Entitic vol] 9.1 fL Critically low 9.5-13.5 [facility] Comment on above: Performed By: #### T SH, CMP, LDH #### [facility] Laboratory [address] [place] [address] Dr. Alesia Meyers PLT 217 103/ul Normal 150-450 [facility] Comment on above: Performed By: #### T SH, CMP, LDH #### [facility] [address] [place] [address] Dr. Alesia Meyers RBC 4.77 106/ul Normal 4.20-5.40 [facility] Comment on above: Performed By: #### T SH, CMP, LDH #### [facility] [address] [place] [address] Dr. Alesia Meyers WBC 8.8 103/ul Normal 4.0-11.0 [facility] Comment on above: Performed By: #### T SH, CMP, LDH #### [facility] [address] [place] [address] Dr. Alesia Meyers FREE T4on 09-05-2022 Free T4 [Mass/Vol] 1.22 ng/dL Normal 0.76-1.46 [facility] Comment on above: Performed By: #### F T4 #### [facility] [address] [place] [address] Dr. Alesia Meyers LDHon 09-05-2022 LDH 212 U/L Normal 81-234 [facility] Comment on above: Performed By: #### T SH, CMP, LDH #### [facility] [address] [place] [address] Dr. Alesia Meyers PROF 14(COMP METB)on 023 Albumin [Mass/Vol] 3.4 g/dL Normal 3.4-5.0 [facility] Comment on above: Performed By: #### T SH, CMP, LDH #### [facility] [address] [place] [address] Dr. Alesia Meyers Albumin/Globulin [Mass ratio] 1.1 {ratio} Normal [facility] Comment on above: Performed By: #### T SH, CMP, LDH #### [facility] [address] [place] [address] Dr. Alesia Meyers ALP [Catalytic activity/Vol] 101 U/L Normal 46-116 [facility] Comment on above: Performed By: #### T SH, CMP, LDH #### [facility] [address] [place] [address] Dr. Alesia Meyers ALT [Catalytic activity/Vol] 40 U/L Normal 14-59 [facility] Comment on above: Performed By: #### T SH, CMP, LDH #### [facility] [address] [place] [address] Dr. Alesia Meyers Anion gap [Moles/Vol] 10.7 mmol/L Normal [facility] Comment on above: Performed By: #### T SH, CMP, LDH #### [facility] [address] [place] [address] Dr. Alesia Meyers AST [Catalytic activity/Vol] 25 U/L Normal 15-37 [facility] Comment on above: Performed By: #### T SH, CMP, LDH #### [facility] [address] [place] [address] Dr. Alesia Meyers Bilirubin [Mass/Vol] 0.4 mg/dL Normal 0.2-1.0 [facility] Comment on above: Performed By: #### T SH, CMP, LDH #### [facility] [address] [place] [address] Dr. Alesia Meyers Calcium [Mass/Vol] 8.7 mg/dL Normal 8.5-10.1 [facility] Comment on above: Performed By: #### T SH, CMP, LDH #### [facility] [address] [place] [address] Dr. Alesia Meyers Chloride [Moles/Vol] 105 mmol/L Normal 98-107 [facility] Comment on above: Performed By: #### T SH, CMP, LDH #### [facility] [address] [place] [address] Dr. Alesia Meyers CO2 [Moles/Vol] 30.0 mmol/L Normal 21.0-32.0 [facility] Comment on above: Performed By: #### T SH, CMP, LDH #### [facility] [address] [place] [address] Dr. Alesia Meyers Creatinine [Mass/Vol] 0.83 mg/dL Normal 0.55-1.02 [facility] Comment on above: Performed By: #### T SH, CMP, LDH #### [facility] [address] [place] [address] Dr. Alesia Meyers EGFR-AF LAO >60 Normal >=60 [facility] Comment on above: Performed By: #### T SH, CMP, LDH #### [facility] [address] [place] [address] Dr. Aelsia Meyers EGFR-NON AF LAO >60 Normal >=60 [facility] Comment on above: Performed By: #### T SH, CMP, LDH #### [facility] [address] [place] [address] Dr. Alesia Meyers Globulin (S) [Mass/Vol] 3.2 g/dL Normal [facility] Comment on above: Performed By: #### T SH, CMP, LDH #### [facility] [address] [place] [address] Dr. Alesia Meyers Glucose [Mass/Vol] 96 mg/dL Normal 74-106 [facility] Comment on above: Performed By: #### T SH, CMP, LDH #### [facility] [address] [place] [address] Dr. Alesia Meyers Potassium [Moles/Vol] 3.7 mmol/L Normal 3.5-5.1 [facility] Comment on above: Performed By: #### T SH, CMP, LDH #### [facility] [address] [place] [address] Dr. Alesia Meyers Protein [Mass/Vol] 6.6 g/dL Normal 6.4-8.2 [facility] Comment on above: Performed By: #### T SH, CMP, LDH #### [facility] [address] [place] [address] Dr. Alesia Meyers Sodium [Moles/Vol] 142 mmol/L Normal 136-145 [facility] Comment on above: Performed By: #### T SH, CMP, LDH #### [facility] [address] [place] [address] Dr. Alesia Meyers Urea nitrogen [Mass/Vol] 29.0 mg/dL Critically high 7.0-18.0 [facility] Comment on above: Performed By: #### T SH, CMP, LDH #### [facility] [address] [place] [address] Dr. Alesia Meyers Urea nitrogen/Creatinine [Mass ratio] 34.9 mg/mg Normal [facility] Comment on above: Performed By: #### T SH, CMP, LDH #### [facility] [address] [place] [address] Dr. Alesia Meyers TSHon 09-05-2022 TSH 3.372 uIU/mL Normal 0.358-3.74 0 [facility] Comment on above: Performed By: #### T SH, CMP, LDH #### [facility] [address] [place], [place] [address] Dr. Alesia Meyers Albumin [Mass/volume] in Ser um or PlasmaOrdered By: Sly Benson on 08-08-2022 Albumin [Mass/Vol] 4.0 g/dL 3.2-5.5 [facility] Basophils Auto (Bld) [#/Vol] Ordered By: Sly Benson on 08-08-2022 Basophils (Bld) [#/Vol] 0.1 10*3/uL 0.0-0.2 [facility] Basophils/100 WBC Auto (Bld) Ordered By: Sly Benson on 08-08-2022 Basophils/100 WBC (Bld) 0.7 % . [facility] Creatinine and Glomerular fi ltration rate.predicted panel (S/P/Bld)Ordered By: Sly Benson on 08-08-2022 Creatinine [Mass/Vol] 0.93 mg/dL 0.44-1.03 [facility] Direct bilirubin measurement Ordered By: Sly Benson on 08-08-2022 Bilirubin.direct [Mass/Vol] mg/dL 0.0-0.4 [facility] Eosinophils Auto (Bld) [#/Vo l]Ordered By: Sly Benson on 08-08-2022 Eosinophils (Bld) [#/Vol] 0.2 10*3/uL 0.0-0.45 [facility] Eosinophils/100 WBC Auto (Bl d)Ordered By: Sly Benson on 08-08-2022 Eosinophils/100 WBC (Bld) 2.1 % . [facility] Erythrocyte distribution wid th Auto (RBC) [Ratio]Ordered By: Sly Benson on 08-08-2022 Erythrocyte distribution width (RBC) [Ratio] 14.7 % 11.9-15.3 [facility] Estimated glomerular filtrat ion rate (GFR) non- AmericanOrdered By: Sly Benson on 08-08-2022 GFR/1.73 sq M.predicted among non-blacks MDRD (S/P/Bld) [Vol rate/Area] 59 mL/Min [facility] Globulin Calc (S) [Mass/Vol] Ordered By: Sly Benson on 08-08-2022 Globulin (S) [Mass/Vol] 3.1 g/dL [facility] Hematocrit Auto (Bld) [Volum e fraction]Ordered By: Sly Benson on 08-08-2022 Hematocrit (Bld) [Volume fraction] 42.9 % 34.0-46.4 [facility] Hemoglobin [Mass/volume] in BloodOrdered By: Sly Benson on 08-08-2022 Hemoglobin (Bld) [Mass/Vol] 14.4 g/dL 11.8-15.4 [facility] Laboratory - Chemistry and C hemistry - challengeOrdered By: Sly Benson on 08-08-2022 Lipase [Catalytic activity/Vol] 33.0 U/L 22-51 [facility] Lactate dehydrogenase measur ement (enzymatic activity/volume)Ordered By: Sly Benson on 08-08-2022 LDH (Unsp spec) [Catalytic activity/Vol] 209 U/L 45-190 [facility] Leukocytes [#/volume] correc margot for nucleated erythrocytes in Blood by Automated counOrdered By: Sly Benson on 08-08-2022 WBC corrected for nucl RBC Auto (Bld) [#/Vol] 7.6 10*3/uL 3.8-11.6 [facility] Lymphocytes Auto (Bld) [#/Vo l]Ordered By: Sly Benson on 08-08-2022 Lymphocytes (Bld) [#/Vol] 2.2 10*3/uL 1.00-4.8 [facility] Lymphocytes/100 WBC Auto (Bl d)Ordered By: Sly Benson on 08-08-2022 Lymphocytes/100 WBC (Bld) 29.6 % . [facility] MCH Auto (RBC) [Entitic mass ]Ordered By: Sly Benson on 08-08-2022 MCH (RBC) [Entitic mass] 29.0 pg 24.7-34.3 [facility] MCHC Auto (RBC) [Mass/Vol]Or dered By: Sly Benson on 08-08-2022 MCHC (RBC) [Mass/Vol] 33.6 g/dL 32.0-35.0 [facility] MCV Auto (RBC) [Entitic vol] Ordered By: Sly Benson on 08-08-2022 MCV (RBC) [Entitic vol] 86.1 fL 80-100 [facility] Monocytes Auto (Bld) [#/Vol] Ordered By: Sly Benson on 08-08-2022 Monocytes (Bld) [#/Vol] 0.7 10*3/uL 0.0-0.8 [facility] Monocytes/100 WBC Auto (Bld) Ordered By: Sly Benson on 08-08-2022 Monocytes/100 WBC (Bld) 9.0 % . [facility] Neutrophils Auto (Bld) [#/Vo l]Ordered By: Sly Benson on 08-08-2022 Neutrophils (Bld) [#/Vol] 4.4 10*3/uL 1.8-7.7 [facility] Neutrophils/100 WBC Auto (Bl d)Ordered By: Sly Benson on 08-08-2022 Neutrophils/100 WBC (Bld) 58.6 % . [facility] No Panel InformationOrdered By: Sly Benson on 08-08-2022 Adrenocorticotropic Hormone 35.2 pg/mL 7.2-63.3 [facility] Comment on above: ACTH reference inter jamel for samples collected between 7 and10 AM.Performed at: [facility] [place] [id number] Director: Coleman Lacy PhD, Phone: [phone] Estimated GFR () > 60 mL/Min [facility] Comment on above: GFR estimated refere nce range: According to KDOQI guidelines, <60 ml/min/1.73m2 is sufficient to diagnose a patient with chronic kidney disease. Pharmacy Creatinine Clearance (Chem 55.32 [facility] Nucleated erythrocytes [Pres ence] in Blood by Automated countOrdered By: Sly Benson on 08-08-2022 Nucleated RBC Auto Ql (Bld) 0.1 /100{WBC} 0-0.5 [facility] Platelet mean volume Auto (B ld) [Entitic vol]Ordered By: Sly Benson on 08-08-2022 Platelet mean volume (Bld) [Entitic vol] 7.5 fL 6.3-10.7 [facility] Platelets Auto (Bld) [#/Vol] Ordered By: Sly Benson on 08-08-2022 Platelets (Bld) [#/Vol] 216 10*3/uL 150-450 [facility] Protein [Mass/volume] in Ser um or PlasmaOrdered By: Sly Benson on 08-08-2022 Protein [Mass/Vol] 7.1 g/dL 6.1-7.9 [facility] RBC Auto (Bld) [#/Vol]Ordere d By: Sly Benson on 08-08-2022 RBC (Bld) [#/Vol] 4.98 10*6/uL 3.60-5.00 [facility] Random cortisol measurementO rdered By: Sly Benson on 08-08-2022 Cortisol [Mass/Vol] 11.8 ug/dL [facility] Comment on above: Reference range: AM 6 - 24 ug/dl PM <10 ug/dl Serum or plasma alanine castro otransferase measurement without P-5'-P (enzymatic activiOrdered By: Sly Benson on 08-08-2022 ALT No additional P-5'-P [Catalytic activity/Vol] 32 U/L 10-60 [facility] Serum or plasma albumin/glob ulin mass ratioOrdered By: Sly Benson on 08-08-2022 Albumin/Globulin [Mass ratio] 1.3 {ratio} [facility] Serum or plasma alkaline halle sphatase measurement (enzymatic activity/volume)Ordered By: Sly Benson on 08-08-2022 ALP [Catalytic activity/Vol] 99 U/L 32-92 [facility] Serum or plasma anion gap de terminationOrdered By: Sly Benson on 08-08-2022 Anion gap [Moles/Vol] 11.2 mmol/L 6.0-15.0 [facility] Serum or plasma aspartate am inotransferase measurement (enzymatic activity/volume)Ordered By: Sly Benson on 08-08-2022 AST [Catalytic activity/Vol] 34 U/L 10-42 [facility] Serum or plasma calcium diamond urement (mass/volume)Ordered By: Sly Benson on 08-08-2022 Calcium [Mass/Vol] 9.3 mg/dL 8.2-10.2 [facility] Serum or plasma chloride zora surement (moles/volume)Ordered By: Sly Benson on 08-08-2022 Chloride [Moles/Vol] 102 mmol/L 95-114 [facility] Serum or plasma glucose diamond urement (mass/volume)Ordered By: Sly Benson on 08-08-2022 Glucose [Mass/Vol] 101 mg/dL 70-100 [facility] Comment on above: ADA recommended refe rence rangeRandom Glucose Reference Range is dependent on time and content of last meal. Glucose of more than 200 mg/dL in a nonstressed, ambulatory subject supports the diagnosis of Diabetes Mellitus. Serum or plasma non-glucuron idated bilirubin measurement (mass/volume)Ordered By: Sly Benson on 08-08-2022 Bilirubin.indirect [Mass/Vol] TNP [facility] Comment on above: Test not performed Serum or plasma potassium me asurement (moles/volume)Ordered By: Sly Benson on 08-08-2022 Potassium [Moles/Vol] 3.3 mmol/L 3.5-5.1 [facility] Serum or plasma sodium measu rement (moles/volume)Ordered By: Sly Benson on 08-08-2022 Sodium [Moles/Vol] 139 mmol/L 136-146 [facility] Serum or plasma total biliru bin measurement (mass/volume)Ordered By: Sly Benson on 08-08-2022 Bilirubin [Mass/Vol] 0.7 mg/dL 0.3-1.2 [facility] Serum or plasma total carbon dioxide measurement (moles/volume)Ordered By: Sly Benson on 08-08-2022 CO2 [Moles/Vol] 29.1 mmol/L 22.0-30.0 [facility] Serum or plasma urea nitroge n measurement (mass/volume)Ordered By: Sly Benson on 08-08-2022 Urea nitrogen [Mass/Vol] 18 mg/dL 04-04 [facility] TSH DL <= 0.005 mIU/L QnOrde red By: Sly Benson on 08-08-2022 TSH Qn 2.80 m[IU]/L 0.45-5.33 [facility] Thyroxine (T4) free [Mass/vo lume] in Serum or PlasmaOrdered By: Sly Benson on 08-08-2022 Free T4 [Mass/Vol] 0.99 ng/dL 0.61-1.12 [facility] WBC Auto (Bld) [#/Vol]Ordere d By: Sly Benson on 08-08-2022 WBC (Bld) [#/Vol] 7.6 10*3/uL 3.8-11.6 [facility] ACTH, PLASMAon 07-22-2022 ACTH, Plasma 29.5 pg/mL Normal 7.2-63.3 [facility] Comment on above: Result Comment: ACTH reference interval for samples collected between 7 and 10 AM. Performed By: #### A CTHP #### [facility] [address] [place] [address] Dr. Alesia Meyers CORTISOLon 07-22-2022 Cortisol 10.0 ug/dL Normal [facility] Comment on above: Result Comment: Melvin isol AM 6.2 - 19.4 Cortisol PM 2.3 - 11.9 Performed By: #### T SH, CMP, LDH #### [facility] [address] [place] [address] [address] Alesia Meyers CBC AUTO DIFFon 07-21-2022 BASO # 0.0 103/ul Normal 0.0-0.1 [facility] Comment on above: Performed By: #### T SH, CMP, LDH #### [facility] [address] [place] [address] Dr. Alesia Meyers Basophils/100 WBC (Bld) 0.6 % Normal 0.2-2.0 [facility] Comment on above: Performed By: #### T SH, CMP, LDH #### [facility] [address] [place] [address] Dr. Alesia Meyers EO # 0.1 103/ul Normal 0.0-0.7 [facility] Comment on above: Performed By: #### T SH, CMP, LDH #### [facility] [address] [place] [address] Dr. Alesia Meyers Eosinophils/100 WBC (Bld) 1.8 % Normal 0.9-7.0 [facility] Comment on above: Performed By: #### T SH, CMP, LDH #### [facility] [address] [place] [address] Dr. Alesia Meyers Erythrocyte distribution width (RBC) [Ratio] 13.2 % Normal 11.0-15.0 [facility] Comment on above: Performed By: #### T SH, CMP, LDH #### [facility] [address] [place] [address] Dr. Alesia Meyers Hematocrit (Bld) [Volume fraction] 40.4 % Normal 36.0-48.0 [facility] Comment on above: Performed By: #### T SH, CMP, LDH #### [facility] [address] [place] [address] Dr. Alesia Meyers Hemoglobin (Bld) [Mass/Vol] 14.1 g/dL Normal 12.0-16.0 [facility] Comment on above: Performed By: #### T SH, CMP, LDH #### [facility] [address] [place] [address] Dr. Alesia Meyers IG # 0.03 10e3/ul Normal 0.00-0.03 [facility] Comment on above: Performed By: #### T SH, CMP, LDH #### [facility] [address] [place] [address] Dr. Alesia Meyers IG % 0.4 % Normal 0.0-0.5 [facility] Comment on above: Performed By: #### T SH, CMP, LDH #### [facility] [address] [place] [address] Dr. Alesia Meyers LYMPH # 1.9 103/ul Normal 1.2-3.8 [facility] Comment on above: Performed By: #### T SH, CMP, LDH #### [facility] [address] [place] [address] Dr. Alesia Meyers Lymphocytes/100 WBC (Bld) 27.5 % Normal 20.5-60.0 [facility] Comment on above: Performed By: #### T SH, CMP, LDH #### [facility] [address] [place] [address] Dr. Alesia Meyers MANUAL DIFF REQ NO Normal [facility] Comment on above: Performed By: #### T SH, CMP, LDH #### [facility] [address] [place] [address] Dr. Alesia Meyers MCH (RBC) [Entitic mass] 28.4 pg Normal 26.7-34.0 [facility] Comment on above: Performed By: #### T SH, CMP, LDH #### [facility] [address] [place] [address] Dr. Alesia Meyers MCHC (RBC) [Mass/Vol] 34.9 g/dL Normal 29.9-35.2 [facility] Comment on above: Performed By: #### T SH, CMP, LDH #### [facility] [address] [place] [address] Dr. Alesia Meyers MCV (RBC) [Entitic vol] 81.5 fL Normal 81.0-99.0 [facility] Comment on above: Performed By: #### T SH, CMP, LDH #### [facility] [address] [place] [address] Dr. Alesia Meyers MONO # 0.3 103/ul Normal 0.3-0.8 [facility] Comment on above: Performed By: #### T SH, CMP, LDH #### [facility] [address] [place] [address] Dr. Alesia Meyers Monocytes/100 WBC (Bld) 4.9 % Normal 1.7-12.0 [facility] Comment on above: Performed By: #### T SH, CMP, LDH #### [facility] [address] [place] [address] Dr. Alesia Meyers NEUT # 4.4 103/ul Normal 1.4-6.5 [facility] Comment on above: Performed By: #### T SH, CMP, LDH #### [facility] [address] [place] [address] Dr. Alesia Meyers Neutrophils/100 WBC (Bld) 64.8 % Normal 43.0-75.0 [facility] Comment on above: Performed By: #### T SH, CMP, LDH #### [facility] [address] [place] [address] Dr. Alesia Meyers Platelet mean volume (Bld) [Entitic vol] 8.8 fL Critically low 9.5-13.5 [facility] Comment on above: Performed By: #### T SH, CMP, LDH #### [facility] [address] [place] [address] Dr. Alesia Meyers PLT 214 103/ul Normal 150-450 [facility] Comment on above: Performed By: #### T SH, CMP, LDH #### [facility] [address] [place] [address] Dr. Alesia Meyers RBC 4.96 106/ul Normal 4.20-5.40 [facility] Comment on above: Performed By: #### T SH, CMP, LDH #### [facility] [address] [place] [address] Dr. Alesia Meyers WBC 6.8 103/ul Normal 4.0-11.0 [facility] Comment on above: Performed By: #### T SH, CMP, LDH #### [facility] [address] [place] [address] Dr. Alesia Meyers FREE T4on 07-21-2022 Free T4 [Mass/Vol] 1.06 ng/dL Normal 0.76-1.46 [facility] Comment on above: Performed By: #### T SH, CMP, LDH #### [facility] [address] [place] [address] Dr. Alesia Meyesr LDHon 07-21-2022 LDH 243 U/L Critically high 81-234 [facility] Comment on above: Performed By: #### T SH, CMP, LDH #### [facility] [address] [place] [address] [address] Alesia Meyers LIPASEon 07-21-2022 Lipase [Catalytic activity/Vol] 73.0 U/L Normal 73.0-393.0 [facility] Comment on above: Performed By: #### T SH, CMP, LDH #### [facility] [address] [place] [address] [address] Alesia Meyers LIVER PROFILEon 07-21-2022 Albumin [Mass/Vol] 3.5 g/dL Normal 3.4-5.0 [facility] Comment on above: Performed By: #### T SH, CMP, LDH #### [facility] [address] [place] [address] [address] Alesia Meyers Albumin/Globulin [Mass ratio] 0.9 {ratio} Normal [facility] Comment on above: Performed By: #### T SH, CMP, LDH #### [facility] [address] [place] [address] Dr. Alesia Meyers ALP [Catalytic activity/Vol] 130 U/L Critically high 46-116 [facility] Comment on above: Performed By: #### T SH, CMP, LDH #### [facility] [address] [place] [address] Dr. Alesia Meyers ALT [Catalytic activity/Vol] 35 U/L Normal 14-59 [facility] Comment on above: Performed By: #### T SH, CMP, LDH #### [facility] [address] [place] [address] [address] Alesia Meyers AST [Catalytic activity/Vol] 37 U/L Normal 15-37 [facility] Comment on above: Performed By: #### T SH, CMP, LDH #### [facility] [address] [place] [address] [address] Alesia Meyers BILI, CONJUGATED 0.1 mg/dL Normal 0.0-0.2 [facility] Comment on above: Performed By: #### T SH, CMP, LDH #### [facility] [address] [place] [address] Dr. Alesia Meyers Bilirubin [Mass/Vol] 0.4 mg/dL Normal 0.2-1.0 [facility] Comment on above: Performed By: #### T SH, CMP, LDH #### [facility] [address] [place] [address] [address] Alesia Meyers Globulin (S) [Mass/Vol] 3.8 g/dL Normal [facility] Comment on above: Performed By: #### T SH, CMP, LDH #### [facility] [address] [place] [address] [address] Alesia Meyers Protein [Mass/Vol] 7.3 g/dL Normal 6.4-8.2 [facility] Comment on above: Performed By: #### T SH, CMP, LDH #### [facility] [address] [place] [address] Dr. Alesia Meyers PROF CHEM 8 ([facility] METB)on Anion gap [Moles/Vol] 12.1 mmol/L Normal [facility] Comment on above: Performed By: #### T SH, CMP, LDH #### [facility] [address] [place] [address] Dr. Alesia Meyers Calcium [Mass/Vol] 9.2 mg/dL Normal 8.5-10.1 [facility] Comment on above: Performed By: #### T SH, CMP, LDH #### [facility] [address] [place] [address] Dr. Alesia Meyers Chloride [Moles/Vol] 102 mmol/L Normal 98-107 [facility] Comment on above: Performed By: #### T SH, CMP, LDH #### [facility] [address] [place] [address] Dr. Alesia Meyers CO2 [Moles/Vol] 30.5 mmol/L Normal 21.0-32.0 [facility] Comment on above: Performed By: #### T SH, CMP, LDH #### [facility] [address] [place] [address] Dr. Alesia Meyers Creatinine [Mass/Vol] 0.87 mg/dL Normal 0.55-1.02 [facility] Comment on above: Performed By: #### T SH, CMP, LDH #### [facility] [address] [place] [address] [address] Alesia Meyers EGFR-AF LAO >60 Normal >=60 [facility] Comment on above: Performed By: #### T SH, CMP, LDH #### [facility] [address] [place] [address] [address] Alesia Meyers EGFR-NON AF LAO >60 Normal >=60 [facility] Comment on above: Performed By: #### T SH, CMP, LDH #### [facility] [address] [place] [address] [address] Alesia Meyers Glucose [Mass/Vol] 178 mg/dL Critically high 74-106 [facility] Comment on above: Performed By: #### T SH, CMP, LDH #### [facility] [address] [place] [address] Dr. Alesia Meyers Potassium [Moles/Vol] 3.6 mmol/L Normal 3.5-5.1 [facility] Comment on above: Performed By: #### T SH, CMP, LDH #### [facility] [facility] [address] [place] [address] Dr. Alesia Meyers Sodium [Moles/Vol] 141 mmol/L Normal 136-145 [facility] Comment on above: Performed By: #### T SH, CMP, LDH #### [facility] [address] [place] [address] Dr. Alesia Meyers Urea nitrogen [Mass/Vol] 16.0 mg/dL Normal 7.0-18.0 [facility] Comment on above: Performed By: #### T SH, CMP, LDH #### [facility] [address] [place] [address] Dr. Alesia Meyers Urea nitrogen/Creatinine [Mass ratio] 18.4 mg/mg Normal [facility] Comment on above: Performed By: #### T SH, CMP, LDH #### [facility] [address] [place] [address] Dr. Alesia Meyers TSHon 07-21-2022 TSH 2.383 uIU/mL Normal 0.358-3.74 0 [facility] Comment on above: Performed By: #### T SH, CMP, LDH #### [facility] [address] [place] [address] Dr. Alesia Meyers ACTH, PLASMAon 06-21-2022 ACTH, Plasma 30.4 pg/mL Normal 7.2-63.3 [facility] Comment on above: Result Comment: ACTH reference interval for samples collected between 7 and 10 AM. Performed By: #### T SH, CMP, LDH #### [facility] [address] [place] [address] Dr. Alesia Meyers CORTISOLon 06-21-2022 Cortisol 16.9 ug/dL Normal [facility] Comment on above: Result Comment: Melvin isol AM 6.2 - 19.4 Cortisol PM 2.3 - 11.9 Performed By: #### C ORTISO #### [facility] [address] [place] [address] Dr. Alesia Meyers CBC AUTO DIFFon 06-20-2022 BASO # 0.0 103/ul Normal 0.0-0.1 [facility] Comment on above: Performed By: #### T SH, CMP, LDH #### [facility] [address] [place] [address] Dr. Alesia Meyers Basophils/100 WBC (Bld) 0.5 % Normal 0.2-2.0 [facility] Comment on above: Performed By: #### T SH, CMP, LDH #### [facility] [address] [place] [address] Dr. Alesia Meyers EO # 0.1 103/ul Normal 0.0-0.7 [facility] Comment on above: Performed By: #### T SH, CMP, LDH #### [facility] [address] [place] [address] Dr. Alesia Meyers Eosinophils/100 WBC (Bld) 2.1 % Normal 0.9-7.0 [facility] Comment on above: Performed By: #### T SH, CMP, LDH #### [facility] [address] [place] [address] Dr. Alesia Meyers Erythrocyte distribution width (RBC) [Ratio] 13.3 % Normal 11.0-15.0 [facility] Comment on above: Performed By: #### T SH, CMP, LDH #### [facility] [address] [place] [address] Dr. Alesia Meyers Hematocrit (Bld) [Volume fraction] 40.2 % Normal 36.0-48.0 [facility] Comment on above: Performed By: #### T SH, CMP, LDH #### [facility] [address] [place] [address] Dr. Alesia Meyers Hemoglobin (Bld) [Mass/Vol] 13.5 g/dL Normal 12.0-16.0 [facility] Comment on above: Performed By: #### T SH, CMP, LDH #### [facility] [address] [place] [address] Dr. Alesia Meyers IG # 0.02 10e3/ul Normal 0.00-0.03 [facility] Comment on above: Performed By: #### T SH, CMP, LDH #### [facility] [address] [place] [address] Dr. Alesia Meyers IG % 0.3 % Normal 0.0-0.5 [facility] Comment on above: Performed By: #### T SH, CMP, LDH #### [facility] [address] [place] [address] Dr. Alesia Meyers LYMPH # 2.3 103/ul Normal 1.2-3.8 [facility] Comment on above: Performed By: #### T SH, CMP, LDH #### [facility] [address] [place] [address] Dr. Alesia Meyers Lymphocytes/100 WBC (Bld) 35.0 % Normal 20.5-60.0 [facility] Comment on above: Performed By: #### T SH, CMP, LDH #### [facility] [address] [place] [address] Dr. Alesia Meyers MANUAL DIFF REQ NO Normal [facility] Comment on above: Performed By: #### T SH, CMP, LDH #### [facility] [address] [place] [address] Dr. Alesia Meyers MCH (RBC) [Entitic mass] 29.3 pg Normal 26.7-34.0 [facility] Comment on above: Performed By: #### T SH, CMP, LDH #### [facility] [address] [place] [address] Dr. Alesia Meyers MCHC (RBC) [Mass/Vol] 33.6 g/dL Normal 29.9-35.2 [facility] Comment on above: Performed By: #### T SH, CMP, LDH #### [facility] [address] [place] [address] Dr. Alesia Meyers MCV (RBC) [Entitic vol] 87.2 fL Normal 81.0-99.0 [facility] Comment on above: Performed By: #### T SH, CMP, LDH #### [facility] [address] [place] [address] Dr. Alesia Meyers MONO # 0.6 103/ul Normal 0.3-0.8 [facility] Comment on above: Performed By: #### T SH, CMP, LDH #### [facility] [address] [place] [address] Dr. Alesia Meyers Monocytes/100 WBC (Bld) 8.8 % Normal 1.7-12.0 [facility] Comment on above: Performed By: #### T SH, CMP, LDH #### [facility] [address] [place] [address] Dr. Alesia Meyers NEUT # 3.5 103/ul Normal 1.4-6.5 [facility] Comment on above: Performed By: #### T SH, CMP, LDH #### [facility] [address] [place] [address] Dr. Alesia Meyers Neutrophils/100 WBC (Bld) 53.3 % Normal 43.0-75.0 [facility] Comment on above: Performed By: #### T SH, CMP, LDH #### [facility] [address] [place] [address] Dr. Alesia Meyers Platelet mean volume (Bld) [Entitic vol] 9.0 fL Critically low 9.5-13.5 [facility] Comment on above: Performed By: #### T SH, CMP, LDH #### [facility] [address] [address] [address] Alesia Meyers PLT 230 103/ul Normal 150-450 [facility] Comment on above: Performed By: #### T SH, CMP, LDH #### [facility] [address] [address] [address] Alesia Meyers RBC 4.61 106/ul Normal 4.20-5.40 [facility] Comment on above: Performed By: #### T SH, CMP, LDH #### [facility] [address] [address] [address] Alesia Meyers WBC 6.6 103/ul Normal 4.0-11.0 [facility] Comment on above: Performed By: #### T SH, CMP, LDH #### [facility] [address] [place] [address] Dr. Alesia Meyers FREE T4on 06-20-2022 Free T4 [Mass/Vol] 1.15 ng/dL Normal 0.76-1.46 [facility] Comment on above: Performed By: #### T SH, CMP, LDH #### [facility] [address] [address] [address] Alesia Meyers LDHon 06-20-2022 LDH 224 U/L Normal 81-234 [facility] Comment on above: Performed By: #### T SH, CMP, LDH #### [facility] [address] [place] [address] Dr. Alesia Meyers LIPASEon 06-20-2022 Lipase [Catalytic activity/Vol] 78.0 U/L Normal 73.0-393.0 [facility] Comment on above: Performed By: #### T SH, CMP, LDH #### [facility] [address] [place] [address] Dr. Alesia Meyers LIPID PROFILEon 06-20-2022 CHOL-HDL RATIO NORM SEE BELOW Normal [facility] Comment on above: Result Comment: 3.3 - 4.4 LOW RISK 4.4 - 7.1 AVERAGE RISK 7.1 - 11.0 MODERATE RISK >11.0 HIGH RISK Performed By: #### T SH, CMP, LDH #### [facility] [address] [address] [address] Alesia Meyers Cholesterol [Mass/Vol] 153 mg/dL Normal <=200 [facility] Comment on above: Performed By: #### T SH, CMP, LDH #### [facility] [address] [address] [address] Alesia Meyers Cholesterol in HDL [Mass/Vol] 80 mg/dL Critically high 40-60 [facility] Comment on above: Performed By: #### T SH, CMP, LDH #### [facility] [address] [address] [address] Alesia Meyers Cholesterol in LDL [Mass/Vol] 52.8 mg/dL Normal [facility] Comment on above: Performed By: #### T SH, CMP, LDH #### [facility] [address] [address] [address] Alesia Meyers Cholesterol.total/Chol esterol in HDL [Mass ratio] 1.9 {ratio} Normal [facility] Comment on above: Performed By: #### T SH, CMP, LDH #### [facility] [address] [address] [address] Alesia Meyers HDL NORMAL > or = 60 mg/dl - LO W CARDIOVASCULAR RISK <40 mg/dl - HIGH CARDIOVASCULAR RISK Normal [facility] Comment on above: Performed By: #### T SH, CMP, LDH #### [facility] [address] [address] [address] Alesia Meyers LDL CALC NORMAL SEE BELOW Normal [facility] Comment on above: Result Comment: <100 mg/dl OPTIMAL 100 - 129 mg/dl NEAR OR ABOVE OPTIMAL 130 - 159 mg/dl BORDERLINE HIGH 160 - 189 mg/dl HIGH >190 mg/dl VERY HIGH Performed By: #### T SH, CMP, LDH #### [facility] [address] [address] [address] Alesia Meyers Triglyceride [Mass/Vol] 101 mg/dL Normal <=150 [facility] Comment on above: Performed By: #### T SH, CMP, LDH #### [facility] [address] [address] [address] Alesia Meyers VLDL CALC 20.2 mg/dL Normal [facility] Comment on above: Performed By: #### T SH, CMP, LDH #### [facility] [address] [address] [address] Alesia Meyers LIVER PROFILEon 06-20-2022 Albumin [Mass/Vol] 3.5 g/dL Normal 3.4-5.0 [facility] Comment on above: Performed By: #### T SH, CMP, LDH #### [facility] [address] [address] [address] Alesia Meyers Albumin/Globulin [Mass ratio] 0.9 {ratio} Normal [facility] Comment on above: Performed By: #### T SH, CMP, LDH #### [facility] [address] [address] [address] Alesia Meyers ALP [Catalytic activity/Vol] 109 U/L Normal 46-116 [facility] Comment on above: Performed By: #### T SH, CMP, LDH #### [facility] [address] [address] [address] Alesia Meyers ALT [Catalytic activity/Vol] 39 U/L Normal 14-59 [facility] Comment on above: Performed By: #### T SH, CMP, LDH #### [facility] [address] [address] [address] Alesia Meyers AST [Catalytic activity/Vol] 34 U/L Normal 15-37 [facility] Comment on above: Performed By: #### T SH, CMP, LDH #### [facility] [address] [address] [address] Alesia Meyers BILI, CONJUGATED 0.1 mg/dL Normal 0.0-0.2 [facility] Comment on above: Performed By: #### T SH, CMP, LDH #### [facility] [address] [address] [address] Alesia Meyers Bilirubin [Mass/Vol] 0.4 mg/dL Normal 0.2-1.0 [facility] Comment on above: Performed By: #### T SH, CMP, LDH #### [facility] [address] [place] [address] Dr. Alesia Meyers Globulin (S) [Mass/Vol] 3.7 g/dL Normal [facility] Comment on above: Performed By: #### T SH, CMP, LDH #### [facility] [address] [place] [address] Dr. Alesia Meyers Protein [Mass/Vol] 7.2 g/dL Normal 6.4-8.2 [facility] Comment on above: Performed By: #### T SH, CMP, LDH #### [facility] [address] [place] [address] Dr. Alesia Meyers PROF CHEM 8 (BAS METB)on Anion gap [Moles/Vol] 11.4 mmol/L Normal [facility] Comment on above: Performed By: #### T SH, CMP, LDH #### [facility] [address] [place] [address] Dr. Alesia Meyers Calcium [Mass/Vol] 9.1 mg/dL Normal 8.5-10.1 [facility] Comment on above: Performed By: #### T SH, CMP, LDH #### [facility] [address] [place] [address] Dr. Alesia Meyers Chloride [Moles/Vol] 103 mmol/L Normal 98-107 [facility] Comment on above: Performed By: #### T SH, CMP, LDH #### [facility] [address] [place] [address] Dr. Alesia Meyers CO2 [Moles/Vol] 31.2 mmol/L Normal 21.0-32.0 [facility] Comment on above: Performed By: #### T SH, CMP, LDH #### [facility] [address] [place] [address] Dr. Alesia Meyers Creatinine [Mass/Vol] 0.90 mg/dL Normal 0.55-1.02 [facility] Comment on above: Performed By: #### T SH, CMP, LDH #### [facility] [address] [place] [address] Dr. Alesia Meyers EGFR-AF LAO >60 Normal >=60 [facility] Comment on above: Performed By: #### T SH, CMP, LDH #### [facility] [address] [place] [address] Dr. Alesia Meyers EGFR-NON AF LAO >60 Normal >=60 [facility] Comment on above: Performed By: #### T SH, CMP, LDH #### [facility] [address] [address] [address] Alesia Meyers Glucose [Mass/Vol] 105 mg/dL Normal 74-106 [facility] Comment on above: Performed By: #### T SH, CMP, LDH #### [facility] [address] [place] [address] Dr. Alesia Meyers Potassium [Moles/Vol] 3.6 mmol/L Normal 3.5-5.1 [facility] Comment on above: Performed By: #### T SH, CMP, LDH #### [facility] [address] [place] [address] Dr. Alesia Meyers Sodium [Moles/Vol] 142 mmol/L Normal 136-145 [facility] Comment on above: Performed By: #### T SH, CMP, LDH #### [facility] [address] [place] [address] Dr. Alesia Meyers Urea nitrogen [Mass/Vol] 22.0 mg/dL Critically high 7.0-18.0 [facility] Comment on above: Performed By: #### T SH, CMP, LDH #### [facility] [address] [place] [address] Dr. Alesia Meyers Urea nitrogen/Creatinine [Mass ratio] 24.4 mg/mg Normal [facility] Comment on above: Performed By: #### T SH, CMP, LDH #### [facility] [address] [place] [address] Dr. Alesia Meyers TSHon 06-20-2022 TSH 3.302 uIU/mL Normal 0.358-3.74 0 [facility] Comment on above: Performed By: #### T SH, CMP, LDH #### [facility] [address] [place] [address] Dr. Alesia Meyers ACTH, PLASMAon 05-31-2022 ACTH, Plasma 28.5 pg/mL Normal 7.2-63.3 [facility] Comment on above: Result Comment: ACTH reference interval for samples collected between 7 and 10 AM. Performed By: #### T SH, CMP, LDH #### [facility] [address] [place] [address] Dr. Alesia Meyers CORTISOLon 05-31-2022 Cortisol 17.2 ug/dL Normal [facility] Comment on above: Result Comment: Melvin isol AM 6.2 - 19.4 Cortisol PM 2.3 - 11.9 Performed By: #### T SH, CMP, LDH #### [facility] [address] [place] [address] Dr. Alesia Meyers CBC AUTO DIFFon 05-30-2022 BASO # 0.0 103/ul Normal 0.0-0.1 [facility] Comment on above: Performed By: #### T SH, CMP, LDH #### [facility] [address] [place] [address] Dr. Alesia Meyers Basophils/100 WBC (Bld) 0.4 % Normal 0.2-2.0 [facility] Comment on above: Performed By: #### T SH, CMP, LDH #### [facility] [address] [place] [address] Dr. Alesia Meyers EO # 0.1 103/ul Normal 0.0-0.7 [facility] Comment on above: Performed By: #### T SH, CMP, LDH #### [facility] [address] [place] [address] Dr. Alesia Meyers Eosinophils/100 WBC (Bld) 2.1 % Normal 0.9-7.0 [facility] Comment on above: Performed By: #### T SH, CMP, LDH #### [facility] [address] [place] [address] Dr. Alesia Meyers Erythrocyte distribution width (RBC) [Ratio] 12.9 % Normal 11.0-15.0 [facility] Comment on above: Performed By: #### T SH, CMP, LDH #### [facility] [address] [place] [address] Dr. Alesia Meyers Hematocrit (Bld) [Volume fraction] 41.0 % Normal 36.0-48.0 [facility] Comment on above: Performed By: #### T SH, CMP, LDH #### [facility] [address] [place] [address] Dr. Alesia Meyers Hemoglobin (Bld) [Mass/Vol] 13.5 g/dL Normal 12.0-16.0 [facility] Comment on above: Performed By: #### T SH, CMP, LDH #### [facility] [address] [place] [address] Dr. Alesia Meyers IG # 0.02 10e3/ul Normal 0.00-0.03 [facility] Comment on above: Performed By: #### T SH, CMP, LDH #### [facility] [address] [place] [address] Dr. Alesia Meyers IG % 0.3 % Normal 0.0-0.5 [facility] Comment on above: Performed By: #### T SH, CMP, LDH #### [facility] [address] [place] [address] Dr. Alesia Meyers LYMPH # 2.1 103/ul Normal 1.2-3.8 [facility] Comment on above: Performed By: #### T SH, CMP, LDH #### [facility] [address] [place] [address] Dr. Alesia Meyers Lymphocytes/100 WBC (Bld) 30.5 % Normal 20.5-60.0 [facility] Comment on above: Performed By: #### T SH, CMP, LDH #### [facility] [address] [place] [address] Dr. Alesia Meyers MANUAL DIFF REQ NO Normal [facility] Comment on above: Performed By: #### T SH, CMP, LDH #### [facility] [address] [place] [address] Dr. Alesia Meyers MCH (RBC) [Entitic mass] 28.6 pg Normal 26.7-34.0 [facility] Comment on above: Performed By: #### T SH, CMP, LDH #### [facility] [address] [place] [address] Dr. Alesia Meyers MCHC (RBC) [Mass/Vol] 32.9 g/dL Normal 29.9-35.2 [facility] Comment on above: Performed By: #### T SH, CMP, LDH #### [facility] [address] [place] [address] Dr. Alesia Meyers MCV (RBC) [Entitic vol] 86.9 fL Normal 81.0-99.0 [facility] Comment on above: Performed By: #### T SH, CMP, LDH #### [facility] [address] [place] [address] Dr. Alesia Meyers MONO # 0.5 103/ul Normal 0.3-0.8 [facility] Comment on above: Performed By: #### T SH, CMP, LDH #### [facility] [address] [place] [address] Dr. Alesia Meyers Monocytes/100 WBC (Bld) 7.8 % Normal 1.7-12.0 [facility] Comment on above: Performed By: #### T SH, CMP, LDH #### [facility] [address] [place] [address] Dr. Alesia Meyers NEUT # 4.0 103/ul Normal 1.4-6.5 [facility] Comment on above: Performed By: #### T SH, CMP, LDH #### [facility] [address] [place] [address] Dr. Alesia Meyres Neutrophils/100 WBC (Bld) 58.9 % Normal 43.0-75.0 [facility] Comment on above: Performed By: #### T SH, CMP, LDH #### [facility] [address] [place] [address] Dr. Alesia Meyers Platelet mean volume (Bld) [Entitic vol] 9.0 fL Critically low 9.5-13.5 [facility] Comment on above: Performed By: #### T SH, CMP, LDH #### [facility] [address] [place] [address] Dr. Alesia Meyers PLT 224 103/ul Normal 150-450 [facility] Comment on above: Performed By: #### T SH, CMP, LDH #### [facility] [address] [place] [address] Dr. Alesia Meyers RBC 4.72 106/ul Normal 4.20-5.40 [facility] Comment on above: Performed By: #### T SH, CMP, LDH #### [facility] [address] [place] [address] Dr. Alesia Meyers WBC 6.8 103/ul Normal 4.0-11.0 [facility] Comment on above: Performed By: #### T SH, CMP, LDH #### [facility] [address] [place] [address] Dr. Alesia Meyers FREE T4on 05-30-2022 Free T4 [Mass/Vol] 1.19 ng/dL Normal 0.76-1.46 [facility] Comment on above: Performed By: #### T SH, CMP, LDH #### [facility] [address] [place] [address] Dr. Alesia Meyers LDHon 05-30-2022 LDH 231 U/L Normal 81-234 [facility] Comment on above: Performed By: #### F T4 #### [facility] [address] [place] [address] Dr. Alesia Meyers LIPASEon 05-30-2022 Lipase [Catalytic activity/Vol] 76.0 U/L Normal 73.0-393.0 [facility] Comment on above: Performed By: #### F T4 #### [facility] [address] [place] [address] Dr. Alesia Meyers LIVER PROFILEon 05-30-2022 Albumin [Mass/Vol] 3.5 g/dL Normal 3.4-5.0 [facility] Comment on above: Performed By: #### F T4 #### [facility] [address] [place] [address] Dr. Alesia Meyers Albumin/Globulin [Mass ratio] 0.9 {ratio} Normal [facility] Comment on above: Performed By: #### F T4 #### [facility] [address] [address] [address] Alesia Meyers ALP [Catalytic activity/Vol] 128 U/L Critically high 46-116 [facility] Comment on above: Performed By: #### F T4 #### [facility] [address] [address] [address] Alesia Meyers ALT [Catalytic activity/Vol] 35 U/L Normal 14-59 [facility] Comment on above: Performed By: #### F T4 #### [facility] [address] [address] [address] Alesia Meyers AST [Catalytic activity/Vol] 25 U/L Normal 15-37 [facility] Comment on above: Performed By: #### F T4 #### [facility] [address] [place] [address] Dr. Alesia Meyers BILI, CONJUGATED 0.1 mg/dL Normal 0.0-0.2 [facility] Comment on above: Performed By: #### F T4 #### [facility] [address] [place] [address] Dr. Alesia Meyers Bilirubin [Mass/Vol] 0.4 mg/dL Normal 0.2-1.0 [facility] Comment on above: Performed By: #### F T4 #### [facility] [address] [place] [address] Dr. Alesia Meyers Globulin (S) [Mass/Vol] 3.7 g/dL Normal [facility] Comment on above: Performed By: #### F T4 #### [facility] [address] [place] [address] Dr. Alesia Meyers Protein [Mass/Vol] 7.2 g/dL Normal 6.4-8.2 [facility] Comment on above: Performed By: #### F T4 #### [facility] [address] [place] [address] Dr. Alesia Meyers PROF CHEM 8 (BAS METB)on Anion gap [Moles/Vol] 7.3 mmol/L Normal [facility] Comment on above: Performed By: #### F T4 #### [facility] [address] [address] [address] Alesia Meyers Calcium [Mass/Vol] 9.0 mg/dL Normal 8.5-10.1 [facility] Comment on above: Performed By: #### F T4 #### [facility] [address] [address] [address] Alesia Meyers Chloride [Moles/Vol] 102 mmol/L Normal 98-107 [facility] Comment on above: Performed By: #### F T4 #### [facility] [address] [address] [address] Alesia Meyers CO2 [Moles/Vol] 32.3 mmol/L Critically high 21.0-32.0 [facility] Comment on above: Performed By: #### F T4 #### [facility] [address] [place] [address] Dr. Alesia Meyers Creatinine [Mass/Vol] 0.94 mg/dL Normal 0.55-1.02 [facility] Comment on above: Performed By: #### F T4 #### [facility] [address] [address] [address] Alesia Meyers EGFR-AF LAO >60 Normal >=60 [facility] Comment on above: Performed By: #### F T4 #### [facility] [address] [address] [address] Alesia Meyers EGFR-NON AF LAO 58 mL/min/1.73m2 Critically low >=60 [facility] Comment on above: Performed By: #### F T4 #### [facility] [address] [address] [address] Alesia Meyers Glucose [Mass/Vol] 108 mg/dL Critically high 74-106 [facility] Comment on above: Performed By: #### F T4 #### [facility] [address] [address] [address] Alesia Meyers Potassium [Moles/Vol] 3.6 mmol/L Normal 3.5-5.1 [facility] Comment on above: Performed By: #### F T4 #### [facility] [address] [address] [address] Alesia Meyers Sodium [Moles/Vol] 138 mmol/L Normal 136-145 [facility] Comment on above: Performed By: #### F T4 #### [facility] [address] [address] [address] Alesia Meyers Urea nitrogen [Mass/Vol] 24.0 mg/dL Critically high 7.0-18.0 [facility] Comment on above: Performed By: #### F T4 #### [facility] [address] [address] [address] Alesia Meyers Urea nitrogen/Creatinine [Mass ratio] 25.5 mg/mg Normal [facility] Comment on above: Performed By: #### F T4 #### [facility] [address] [address] [address] Alesia Meyers TSHon 05-30-2022 TSH 2.605 uIU/mL Normal 0.358-3.74 0 [facility] Comment on above: Performed By: #### F T4 #### [facility] [address] [address] [address] Alesia Meyers ACTH, PLASMAon 05-14-2022 ACTH, Plasma 17.0 pg/mL Normal 7.2-63.3 [facility] Comment on above: Result Comment: ACTH reference interval for samples collected between 7 and 10 AM. Performed By: #### A CTHP #### [facility] [address] [address] [address] Alesia Meyers ACTH, PLASMAon 05-12-2022 ACTH, Plasma WRORD Normal [facility] Comment on above: Result Comment: Test not performed. The required specimen for the test ordered was not received. received refrigerate plasma edta contacted Sheyla at your facility on 05-12-2022 ACTH reference interval for samples collected between 7 and 10 AM. Performed By: #### F T4 #### [facility] [address] [place] [address] Dr. Alesia Meyers Albumin [Mass/volume] in Ser um or PlasmaOrdered By: Sly Benson on 05-12-2022 Albumin [Mass/Vol] 3.5 g/dL 3.2-5.5 [facility] Direct bilirubin measurement Ordered By: Sly Benson on 05-12-2022 Bilirubin.direct [Mass/Vol] mg/dL 0.0-0.4 [facility] Globulin Calc (S) [Mass/Vol] Ordered By: Sly Benson on 05-12-2022 Globulin (S) [Mass/Vol] 3.0 g/dL [facility] - Chemistry and C hemistry - challengeOrdered By: Sly Benson on 05-12-2022 Lipase [Catalytic activity/Vol] 26.0 U/L 22-51 [facility] Lactate dehydrogenase measur ement (enzymatic activity/volume)Ordered By: Sly Benson on 05-12-2022 LDH (Unsp spec) [Catalytic activity/Vol] 199 U/L 45-190 [facility] No Panel InformationOrdered By: Sly Benson on 05-12-2022 Adrenocorticotropic Hormone 243.0 pg/mL 7.2-63.3 [facility] Comment on above: ACTH reference inter jamel for samples collected between 7 and10 AM.Performed at: [facility] [id number] Director: Coleman Lacy PhD, Phone: [phone] Protein [Mass/volume] in Ser um or PlasmaOrdered By: Syl Benson on 05-12-2022 Protein [Mass/Vol] 6.5 g/dL 6.1-7.9 [facility] Random cortisol measurementO rdered By: Sly Benson on 05-12-2022 Cortisol [Mass/Vol] 14.6 ug/dL [facility] Comment on above: Reference range: AM 6 - 24 ug/dl PM <10 ug/dl Serum or plasma alanine castro otransferase measurement without P-5'-P (enzymatic activiOrdered By: Sly Benson on 05-12-2022 ALT No additional P-5'-P [Catalytic activity/Vol] 31 U/L 10-60 [facility] Serum or plasma albumin/glob ulin mass ratioOrdered By: Sly Benson on 05-12-2022 Albumin/Globulin [Mass ratio] 1.2 {ratio} [facility] Serum or plasma alkaline halle sphatase measurement (enzymatic activity/volume)Ordered By: Sly Benson on 05-12-2022 ALP [Catalytic activity/Vol] 112 U/L [facility] Serum or plasma aspartate am inotransferase measurement (enzymatic activity/volume)Ordered By: Sly Benson on 05-12-2022 AST [Catalytic activity/Vol] 33 U/L [facility] Serum or plasma non-glucuron idated bilirubin measurement (mass/volume)Ordered By: Sly Benson on 05-12-2022 Bilirubin.indirect [Mass/Vol] TNP [facility] Comment on above: Test not performed Serum or plasma total biliru bin measurement (mass/volume)Ordered By: Sly Benson on 05-12-2022 Bilirubin [Mass/Vol] 0.8 mg/dL 0.3-1.2 [facility] Thyroxine (T4) free [Mass/vo lume] in Serum or PlasmaOrdered By: Sly Benson on 05-12-2022 Free T4 [Mass/Vol] 1.17 ng/dL 0.61-1.12 [facility] CORTISOLon 05-11-2022 Cortisol 15.4 ug/dL Normal [facility] Comment on above: Result Comment: Melvin isol AM 6.2 - 19.4 Cortisol PM 2.3 - 11.9 Performed By: #### T SH, CMP, LDH #### [facility] [address] [address] [address] Alesia Meyers CBC AUTO DIFFon 05-10-2022 BASO # 0.0 103/ul Normal 0.0-0.1 [facility] Comment on above: Performed By: #### C BC #### [facility] [address] [address] [address] Alesia Meyers Basophils/100 WBC (Bld) 0.3 % Normal 0.2-2.0 [facility] Comment on above: Performed By: #### C BC #### [facility] [address] [id number] Alesia Meyers EO # 0.2 103/ul Normal 0.0-0.7 [facility] Comment on above: Performed By: #### C BC #### [facility] [address] [place] [address] Dr. Alesia Meyers Eosinophils/100 WBC (Bld) 2.5 % Normal 0.9-7.0 [facility] Comment on above: Performed By: #### C BC #### [facility] [address] [place] [address] Dr. Alesia Meyers Erythrocyte distribution width (RBC) [Ratio] 13.2 % Normal 11.0-15.0 [facility] Comment on above: Performed By: #### C BC #### [facility] [address] [place] [address] Dr. Alesia Meyers Hematocrit (Bld) [Volume fraction] 39.1 % Normal 36.0-48.0 [facility] Comment on above: Performed By: #### C BC #### [facility] [address] [place] [address] Dr. Alesia Meyers Hemoglobin (Bld) [Mass/Vol] 12.9 g/dL Normal 12.0-16.0 [facility] Comment on above: Performed By: #### C BC #### [facility] [address] [place] [address] Dr. Alesia Meyers IG # 0.01 10e3/ul Normal 0.00-0.03 [facility] Comment on above: Performed By: #### C BC #### [facility] [address] [place] [address] Dr. Alesia Meyers IG % 0.2 % Normal 0.0-0.5 [facility] Comment on above: Performed By: #### C BC #### [facility] [address] [place] [address] Dr. Alesia Meyers LYMPH # 1.9 103/ul Normal 1.2-3.8 [facility] Comment on above: Performed By: #### C BC #### [facility] [address] [place] [address] Dr. Alesia Meyers Lymphocytes/100 WBC (Bld) 32.2 % Normal 20.5-60.0 [facility] Comment on above: Performed By: #### C BC #### [facility] [address] [place] [address] Dr. Alesia Meyers MANUAL DIFF REQ NO Normal [facility] Comment on above: Performed By: #### C BC #### [facility] [address] [place] [address] Dr. Alesia Meyers MCH (RBC) [Entitic mass] 29.0 pg Normal 26.7-34.0 [facility] Comment on above: Performed By: #### C BC #### [facility] [address] [place] [address] Dr. Alesia Meyers MCHC (RBC) [Mass/Vol] 33.0 g/dL Normal 29.9-35.2 [facility] Comment on above: Performed By: #### C BC #### [facility] [address] [place] [address] Dr. Alesia Meyers MCV (RBC) [Entitic vol] 87.9 fL Normal 81.0-99.0 [facility] Comment on above: Performed By: #### C BC #### [facility] [address] [place] [address] Dr. Alesia Meyers MONO # 0.5 103/ul Normal 0.3-0.8 [facility] Comment on above: Performed By: #### C BC #### [facility] [address] [place] [address] Dr. Alesia Meyers Monocytes/100 WBC (Bld) 8.5 % Normal 1.7-12.0 [facility] Comment on above: Performed By: #### C BC #### [facility] [address] [place] [address] Dr. Alesia Meyers NEUT # 3.3 103/ul Normal 1.4-6.5 [facility] Comment on above: Performed By: #### C BC #### [facility] [address] [place] [address] Dr. Alesia Meyers Neutrophils/100 WBC (Bld) 56.3 % Normal 43.0-75.0 [facility] Comment on above: Performed By: #### C BC #### [facility] [address] [place] [address] Dr. Alesia Meyers Platelet mean volume (Bld) [Entitic vol] 9.6 fL Normal 9.5-13.5 [facility] Comment on above: Performed By: #### C BC #### [facility] [address] [place] [address] Dr. Alesia Meyers PLT 210 103/ul Normal 150-450 [facility] Comment on above: Performed By: #### C BC #### [facility] [address] [place] [address] Dr. Alesia Meyers RBC 4.45 106/ul Normal 4.20-5.40 [facility] Comment on above: Performed By: #### C BC #### [facility] [address] [place] [address] Dr. Alesia Meyers WBC 5.9 103/ul Normal 4.0-11.0 [facility] Comment on above: Performed By: #### C BC #### [facility] [address] [place] [address] Dr. Alesia Meyers FREE T4on 05-10-2022 Free T4 [Mass/Vol] 1.19 ng/dL Normal 0.76-1.46 [facility] Comment on above: Performed By: #### F T4 #### [facility] [address] [place] [address] Dr. Alesia Meyers LDHon 05-10-2022 LDH 252 U/L Critically high 81-234 [facility] Comment on above: Performed By: #### T SH, CMP, LDH #### [facility] [address] [place] [address] Dr. Alesia Meyers LIPASEon 05-10-2022 Lipase [Catalytic activity/Vol] 70.0 U/L Critically low 73.0-393.0 [facility] Comment on above: Performed By: #### T SH, CMP, LDH #### [facility] [address] [place] [address] Dr. Alesia Meyers LIVER PROFILEon 05-10-2022 Albumin [Mass/Vol] 3.3 g/dL Critically low 3.4-5.0 [facility] Comment on above: Performed By: #### T SH, CMP, LDH #### [facility] [address] [place] [address] Dr. Alesia Meyers Albumin/Globulin [Mass ratio] 0.9 {ratio} Normal [facility] Comment on above: Performed By: #### T SH, CMP, LDH #### [facility] [address] [address] [address] Alesia Meyers ALP [Catalytic activity/Vol] 129 U/L Critically high 46-116 [facility] Comment on above: Performed By: #### T SH, CMP, LDH #### [facility] [address] [place] [address] Dr. Alesia Meyers ALT [Catalytic activity/Vol] 35 U/L Normal 14-59 [facility] Comment on above: Performed By: #### T SH, CMP, LDH #### [facility] [address] [place] [address] Dr. Alesia Meyers AST [Catalytic activity/Vol] 36 U/L Normal 15-37 [facility] Comment on above: Performed By: #### T SH, CMP, LDH #### [facility] [address] [place] [address] Dr. Alesia Meyers BILI, CONJUGATED 0.1 mg/dL Normal 0.0-0.2 [facility] Comment on above: Performed By: #### T SH, CMP, LDH #### [facility] [address] [place] [address] Dr. Alesia Meyers Bilirubin [Mass/Vol] 0.4 mg/dL Normal 0.2-1.0 [facility] Comment on above: Performed By: #### T SH, CMP, LDH #### [facility] [address] [place] [address] Dr. Alesia Meyers Globulin (S) [Mass/Vol] 3.7 g/dL Normal [facility] Comment on above: Performed By: #### T SH, CMP, LDH #### [facility] [address] [place] [address] Dr. Alesia Meyers Protein [Mass/Vol] 7.0 g/dL Normal 6.4-8.2 [facility] Comment on above: Performed By: #### T SH, CMP, LDH #### [facility] [address] [place] [address] Dr. Alesia Meyers PROF CHEM 8 (BAS METB)on Anion gap [Moles/Vol] 11.7 mmol/L Normal [facility] Comment on above: Performed By: #### T SH, CMP, LDH #### [facility] [address] [place] [address] Dr. Alesia Meyers Calcium [Mass/Vol] 8.9 mg/dL Normal 8.5-10.1 [facility] Comment on above: Performed By: #### T SH, CMP, LDH #### [facility] [address] [place] [address] Dr. Alesia Meyers Chloride [Moles/Vol] 104 mmol/L Normal 98-107 [facility] Comment on above: Performed By: #### T SH, CMP, LDH #### [facility] [address] [place] [address] Dr. Alesia Meyers CO2 [Moles/Vol] 29.3 mmol/L Normal 21.0-32.0 [facility] Comment on above: Performed By: #### T SH, CMP, LDH #### [facility] [address] [place] [address] Dr. Alesia Meyers Creatinine [Mass/Vol] 0.84 mg/dL Normal 0.55-1.02 [facility] Comment on above: Performed By: #### T SH, CMP, LDH #### [facility] [address] [place] [address] Dr. Alesia Meyers EGFR-AF LAO >60 Normal >=60 [facility] Comment on above: Performed By: #### T SH, CMP, LDH #### [facility] [address] [place] [address] Dr. Alesia Meyers EGFR-NON AF LAO >60 Normal >=60 [facility] Comment on above: Performed By: #### T SH, CMP, LDH #### [facility] [address] [address] [address] Alesia Meyers Glucose [Mass/Vol] 109 mg/dL Critically high 74-106 [facility] Comment on above: Performed By: #### T SH, CMP, LDH #### [facility] [address] [address] [address] Alesia Meyers Potassium [Moles/Vol] 4.0 mmol/L Normal 3.5-5.1 [facility] Comment on above: Performed By: #### T SH, CMP, LDH #### [facility] [address] [address] [address] Alesia Meyers Sodium [Moles/Vol] 141 mmol/L Normal 136-145 [facility] Comment on above: Performed By: #### T SH, CMP, LDH #### [facility] [address] [address] [address] Alesia Meyers Urea nitrogen [Mass/Vol] 19.0 mg/dL Critically high 7.0-18.0 [facility] Comment on above: Performed By: #### T SH, CMP, LDH #### [facility] [address] [address] [address] Alesia Meyers Urea nitrogen/Creatinine [Mass ratio] 22.6 mg/mg Normal [facility] Comment on above: Performed By: #### T SH, CMP, LDH #### [facility] [address] [address] [address] Alesia Meyers TSHon 05-10-2022 TSH 3.114 uIU/mL Normal 0.358-3.74 0 [facility] Comment on above: Performed By: #### T SH, CMP, LDH #### [facility] [address] [address] [address] Alesia Meyers Activated partial thrombopla stin time (aPTT) in platelet poor plasma by coagulation aOrdered By: Sly Benson on 04-28-2022 aPTT Coag (PPP) [Time] 28.1 s 25.1-36.5 [facility] Albumin [Mass/volume] in Ser um or PlasmaOrdered By: Sly Benson on 04-28-2022 Albumin [Mass/Vol] 3.5 g/dL 3.2-5.5 [facility] Basophils Auto (Bld) [#/Vol] Ordered By: Sly Benson on 04-28-2022 Basophils (Bld) [#/Vol] 0.0 10*3/uL 0.0-0.2 [facility] Basophils/100 WBC Auto (Bld) Ordered By: Sly Benson on 04-28-2022 Basophils/100 WBC (Bld) 0.5 % . [facility] Creatinine and Glomerular fi ltration rate.predicted panel (S/P/Bld)Ordered By: Sly Benson on 04-28-2022 Creatinine [Mass/Vol] 0.84 mg/dL 0.44-1.03 [facility] Eosinophils Auto (Bld) [#/Vo l]Ordered By: Sly Benson on 04-28-2022 Eosinophils (Bld) [#/Vol] 0.1 10*3/uL 0.0-0.45 [facility] Eosinophils/100 WBC Auto (Bl d)Ordered By: Sly Benson on 04-28-2022 Eosinophils/100 WBC (Bld) 1.1 % . [facility] Erythrocyte distribution wid th Auto (RBC) [Ratio]Ordered By: Sly Benson on 04-28-2022 Erythrocyte distribution width (RBC) [Ratio] 14.1 % 11.9-15.3 [facility] Erythrocyte sedimentation ra te by Photometric methodOrdered By: Sly Benson on 04-28-2022 ESR Photometric method (Bld) [Velocity] 31 mm/hr 0-29 [facility] Estimated glomerular filtrat ion rate (GFR) non- AmericanOrdered By: Sly Benson on 04-28-2022 GFR/1.73 sq M.predicted among non-blacks MDRD (S/P/Bld) [Vol rate/Area] > 60 mL/Min [facility] Globulin Calc (S) [Mass/Vol] Ordered By: Sly Benson on 04-28-2022 Globulin (S) [Mass/Vol] 2.9 g/dL [facility] Hematocrit Auto (Bld) [Volum e fraction]Ordered By: Sly Benson on 04-28-2022 Hematocrit (Bld) [Volume fraction] 40.5 % 34.0-46.4 [facility] Hemoglobin [Mass/volume] in BloodOrdered By: Sly Benson on 04-28-2022 Hemoglobin (Bld) [Mass/Vol] 13.6 g/dL 11.8-15.4 [facility] Laboratory - CoagulationOrde red By: Sly Benson on 04-28-2022 PT Coag (PPP) [Time] 10.6 s 9.0-12.9 [facility] - Hematology and Cell countsOrdered By: Sly Benson on 04-28-2022 Nucleated RBC/100 WBC (Bld) [Ratio] 0.1 % 0-0.5 [facility] Leukocytes [#/volume] in Blo od by Automated countOrdered By: Sly Benson on 04-28-2022 WBC (Bld) [#/Vol] 6.9 10*3/uL 4.5-11.0 [facility] Lymphocytes Auto (Bld) [#/Vo l]Ordered By: Sly Benson on 04-28-2022 Lymphocytes (Bld) [#/Vol] 2.0 10*3/uL 1.00-4.8 [facility] Lymphocytes/100 WBC Auto (Bl d)Ordered By: Sly Benson on 04-28-2022 Lymphocytes/100 WBC (Bld) 28.3 % . [facility] MCH Auto (RBC) [Entitic mass ]Ordered By: Sly Benson on 04-28-2022 MCH (RBC) [Entitic mass] 29.4 pg 24.7-34.3 [facility] MCHC Auto (RBC) [Mass/Vol]Or dered By: Sly Benson on 04-28-2022 MCHC (RBC) [Mass/Vol] 33.6 g/dL 32.0-35.0 [facility] MCV Auto (RBC) [Entitic vol] Ordered By: Sly Benson on 04-28-2022 MCV (RBC) [Entitic vol] 87.5 fL 80-100 [facility] Monocytes Auto (Bld) [#/Vol] Ordered By: Sly Benson on 04-28-2022 Monocytes (Bld) [#/Vol] 0.6 10*3/uL 0.0-0.8 [facility] Monocytes/100 WBC Auto (Bld) Ordered By: Sly Benson on 04-28-2022 Monocytes/100 WBC (Bld) 8.5 % . [facility] Neutrophils Auto (Bld) [#/Vo l]Ordered By: Sly Benson on 04-28-2022 Neutrophils (Bld) [#/Vol] 4.2 10*3/uL 1.8-7.7 [facility] Neutrophils/100 WBC Auto (Bl d)Ordered By: Sly Benson on 04-28-2022 Neutrophils/100 WBC (Bld) 61.6 % . [facility] No Panel InformationOrdered By: Sly Benson on 04-28-2022 Anti-Nuclear Antibody Comment 2 See comment . [facility] Comment on above: For more information [...] titers Nucleosomes, Histones Drug-induced SLE Speckled Sm, HORSE BREAKER, SCL-70, SLE,MCTD,PSS (diffuse form), SS-A/SS-B Sjogrens Nucleolar SCL-70, PM-1/SCL High titers Scleroderma, PM/DM Centromere Centromere PSS (limited form) w/Crest syndrome variable Nuclear Dot [id number] Primary Biliary Cirrhosis Nuclear GP210, Primary Biliary CirrhosisMembrane fish A,B,C Performed at: - [facility] [id number] Director: Coleman Lacy PhD, Phone: [phone] Estimated GFR () > 60 mL/Min [facility] Comment on above: GFR estimated refere nce range: According to KDOQI guidelines, <60 ml/min/1.73m2 is sufficient to diagnose a patient with chronic kidney disease. Pharmacy Creatinine Clearance (Chem 60.78 [facility] Platelet mean volume Auto (B ld) [Entitic vol]Ordered By: Sly Benson on 04-28-2022 Platelet mean volume (Bld) [Entitic vol] 7.6 fL 6.3-10.7 [facility] Platelet poor plasma interna tional normalized ratio (INR) by coagulation assay (relatOrdered By: Sly Benson on 04-28-2022 INR Coag (PPP) [Relative time] 0.9 {INR} [facility] Comment on above: INR Therapeutic Rang [...] 04-28-2022 Platelets (Bld) [#/Vol] 204 10*3/uL 150-450 [facility] Protein [Mass/volume] in Ser um or PlasmaOrdered By: Sly Benson on 04-28-2022 Protein [Mass/Vol] 6.4 g/dL 6.1-7.9 [facility] RBC Auto (Bld) [#/Vol]Ordere d By: Sly Benson on 04-28-2022 RBC (Bld) [#/Vol] 4.63 10*6/uL 3.60-5.00 [facility] Serum nuclear antibody titer Ordered By: Sly Benson on 04-28-2022 Nuclear Ab (S) [Titer] Positive . [facility] Comment on above: Negative <1:80 Borde rline 1:80 Positive >1:80 Serum or plasma alanine castro otransferase measurement without P-5'-P (enzymatic activiOrdered By: Sly Benson on 04-28-2022 ALT No additional P-5'-P [Catalytic activity/Vol] 34 U/L 10-60 [facility] Serum or plasma albumin/glob ulin mass ratioOrdered By: Sly Benson on 04-28-2022 Albumin/Globulin [Mass ratio] 1.2 {ratio} [facility] Serum or plasma alkaline halle sphatase measurement (enzymatic activity/volume)Ordered By: Sly Benson on 04-28-2022 ALP [Catalytic activity/Vol] 114 U/L 32-92 [facility] Serum or plasma anion gap de terminationOrdered By: Sly Benson on 04-28-2022 Anion gap [Moles/Vol] 11.9 mmol/L 6.0-15.0 [facility] Serum or plasma aspartate am inotransferase measurement (enzymatic activity/volume)Ordered By: Sly Benson on 04-28-2022 AST [Catalytic activity/Vol] 38 U/L 10- [facility] Serum or plasma calcium diamond urement (mass/volume)Ordered By: Sly Benson on 04-28-2022 Calcium [Mass/Vol] 8.9 mg/dL 8.2-10.2 [facility] Serum or plasma chloride zora surement (moles/volume)Ordered By: Sly Benson on 04-28-2022 Chloride [Moles/Vol] 105 mmol/L 95-114 [facility] Serum or plasma glucose diamond urement (mass/volume)Ordered By: Sly Benson on 04-28-2022 Glucose [Mass/Vol] 110 mg/dL 70-100 [facility] Comment on above: ADA recommended refe rence rangeRandom Glucose Reference Range is dependent on time and content of last meal. Glucose of more than 200 mg/dL in a nonstressed, ambulatory subject supports the diagnosis of Diabetes Mellitus. Serum or plasma potassium me asurement (moles/volume)Ordered By: Sly Benson on 04-28-2022 Potassium [Moles/Vol] 3.5 mmol/L 3.5-5.1 [facility] Serum or plasma sodium measu rement (moles/volume)Ordered By: Sly Benson on 04-28-2022 Sodium [Moles/Vol] 140 mmol/L 136-146 [facility] Serum or plasma total biliru bin measurement (mass/volume)Ordered By: Sly Benson on 04-28-2022 Bilirubin [Mass/Vol] 0.9 mg/dL 0.3-1.2 [facility] Serum or plasma total carbon dioxide measurement (moles/volume)Ordered By: Sly Benson on 04-28-2022 CO2 [Moles/Vol] 26.6 mmol/L 22.0-30.0 [facility] Serum or plasma urea nitroge n measurement (mass/volume)Ordered By: Sly Benson on 04-28-2022 Urea nitrogen [Mass/Vol] 16 mg/dL 04-04 [facility] Serum speckled pattern antin uclear antibody (BARRETT) titerOrdered By: Sly Benson on 04-28-2022 Speckled nuclear Ab pattern (S) [Titer] 1:160 . [facility] Comment on above: ICAP nomenclature: A C-2,4,5,29 TSH DL <= 0.005 mIU/L QnOrde red By: Sly Benson on 04-28-2022 TSH Qn 3.18 m[IU]/L 0.45-5.33 [facility] Creatinine and Glomerular fi ltration rate.predicted panel (S/P/Bld)Ordered By: Alex Trammell on 03-26-2022 Creatinine [Mass/Vol] 0.87 mg/dL 0.44-1.03 [facility] Estimated glomerular filtrat ion rate (GFR) non- AmericanOrdered By: Alex Trammell on 03-26-2022 GFR/1.73 sq M.predicted among non-blacks MDRD (S/P/Bld) [Vol rate/Area] > 60 mL/Min [facility] No Panel InformationOrdered By: Alex Trammell on 03-26-2022 Estimated GFR () > 60 mL/Min [facility] Comment on above: GFR estimated refere nce range: According to KDOQI guidelines, <60 ml/min/1.73m2 is sufficient to diagnose a patient with chronic kidney disease. Pharmacy Creatinine Clearance (Chem N/A [facility] Serum or plasma urea nitroge n measurement (mass/volume)Ordered By: Alex Trammell on 03-26-2022 Urea nitrogen [Mass/Vol] 18 mg/dL 04-04 [facility] Creatinine and Glomerular fi ltration rate.predicted panel (S/P/Bld)Ordered By: Alex Trammell on 10-10-2021 Creatinine [Mass/Vol] 0.91 mg/dL 0.44-1.03 [facility] Estimated glomerular filtrat ion rate (GFR) non- AmericanOrdered By: Alex Trammell on 10-10-2021 GFR/1.73 sq M.predicted among non-blacks MDRD (S/P/Bld) [Vol rate/Area] 60 mL/Min [facility] No Panel InformationOrdered By: Alex Trammell on 10-10-2021 Estimated GFR () > 60 mL/Min [facility] Comment on above: GFR estimated refere nce range: According to KDOQI guidelines, <60 ml/min/1.73m2 is sufficient to diagnose a patient with chronic kidney disease. Pharmacy Creatinine Clearance (Chem N/A [facility] Serum or plasma urea nitroge n measurement (mass/volume)Ordered By: Alex Trammell on 10-10-2021 Urea nitrogen [Mass/Vol] 19 mg/dL 04-04 [facility] Dermatopathologyon Dermatopathology Name THERESA LUU Pathologist: SURAJ MELGAR MD Date of Procedure: 09/17/2021 Date Received: 09/18/2021 Date Reported 09/20/2021 Submitting Physician: ALEX TRAMMELL MD Location: [facility] Other External # FINAL DIAGNOSIS A. SKIN, [...] M.D. Electronically Signed Out By SURAJ MELGAR MD/[facility] By the signature on this report, [...] mm. Inked and embedded in toto. mlz/09/18/2021 [facility] Dermatopathology Laboratory [place] [address] [place] [address] Comment on above: Performed By: #### D #### Dermatopathology No Panel Informationon 09-17 [facility] Work Phone: Office Visit (Oncology Surge )on 09-17-2021 Follow-up visit Diagnoses/Problems Assessed Malignant melanoma [...] not connect with the medical oncologist at [facility] who was planning to consider her for [...] a prior mole. 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 As [...] swelling fro (more content not included)... Normal [facility] COMPREHENSIVE METABOLIC PANE [facility] 05-04-2021 Albumin [Mass/Vol] 4.1 g/dL Normal 3.6-5.1 [facility] Comment on above: Performed By: #### 7 128, 52483 #### [facility] [address], [address] [place] [phone] [employer] Converter: Chadwick Suárez MD Albumin/Globulin [Mass ratio] 1.4 {ratio} Normal 1.0-2.5 [facility] Comment on above: Performed By: #### 7 600, 53346 #### [facility] [address], [address] [place] [phone] [employer] Converter: Chadwick Suárez MD ALP [Catalytic activity/Vol] 121 U/L Normal 37-153 [facility] Comment on above: Performed By: #### 7 600, 36743 #### [facility] of [place] [address] [employer] Converter: Chadwick Suárez MD ALT [Catalytic activity/Vol] 18 U/L Normal 6-29 [facility] Comment on above: Performed By: #### 7 600, 06313 #### [facility] [place] [address] [employer] Converter: Chadwick Suárez MD AST [Catalytic activity/Vol] 19 U/L Normal 10-35 [facility] Comment on above: Performed By: #### 7 600, 99286 #### [facility] of [place] [address] [employer] Converter: Chadwick Suárez MD Bilirubin [Mass/Vol] 0.5 mg/dL Normal 0.2-1.2 [facility] Comment on above: Performed By: #### 7 600, 08995 #### [facility] of [place] [address] [employer] Converter: Chadwick Suárez MD BUN/CREATININE RATIO NOT APPLICABLE Normal 6-22 [facility] Comment on above: Performed By: #### 7 600, 56687 #### [facility] of [place] [address] [employer] Converter: Chadwick Suárez MD Calcium [Mass/Vol] 9.4 mg/dL Normal 8.6-10.4 [facility] Comment on above: Performed By: #### 7 600, 88030 #### [facility] of [place] [address] [employer] Converter: Chadwick Suárez MD Chloride [Moles/Vol] 106 mmol/L Normal 98-110 [facility] Comment on above: Performed By: #### 7 600, 41439 #### [facility] [place] [address] [employer] Converter: Chadwick Suárez MD CO2 [Moles/Vol] 31 mmol/L Normal 20-32 [facility] Comment on above: Performed By: #### 7 600, 35218 #### [facility] [place] [address] [employer] Converter: Chadwick Suárez MD Creatinine [Mass/Vol] 0.78 mg/dL Normal 0.60-0.[address] [facility] [address] [facility] Comment on above: Result Comment: For patients >49 years of age, the reference limit for Creatinine is approximately 13% higher for people identified as -Palestinian. Performed By: #### 7 600, 34382 #### [facility] [address], [address] [place] [address] [employer] Converter: Chadwick Suárez MD eGFR NON-AFR. LAO 75 mL/min/1.73m2 Normal > OR = 60 [facility] Comment on above: Performed By: #### 7 600, 82331 #### [facility] [place] [address] [employer] Converter: Chadwick Suárez MD GFR/1.73 sq M.predicted among blacks MDRD (S/P/Bld) [Vol rate/Area] 87 mL/min/{1.73_m2} Normal > OR = 60 [facility] Comment on above: Performed By: #### 7 600, 83731 #### [facility] [place] [address] [employer] Converter: Chadwick Suárez MD Globulin (S) [Mass/Vol] 2.9 g/dL Normal 1.9-3.7 [facility] Comment on above: Performed By: #### 7 600, 52695 #### [facility] [place] [address] [employer] Converter: Chadwick Suárez MD Glucose [Mass/Vol] 105 mg/dL High 65-99 [facility] Comment on above: Result Comment: Fasting reference interval For someone without known diabetes, a glucose value between 100 and 125 mg/dL is consistent with prediabetes and should be confirmed with a follow-up test. Performed By: #### 7 600, 54769 #### [facility] [place] [address] [employer] Converter: Chadwick Suárez MD Potassium [Moles/Vol] 4.9 mmol/L Normal 3.5-5.[address] [facility] [address] [facility] Comment on above: Performed By: #### 7 600, 52511 #### [facility] of [address], [address] [place] [address] [employer] Converter: Chadwick uSárez MD Protein [Mass/Vol] 7.0 g/dL Normal 6.1-8.1 [facility] Comment on above: Performed By: #### 7 600, 49035 #### [facility] of [address], [address] [place] [address] [employer] Converter: Chadwick Suárez MD Sodium [Moles/Vol] 143 mmol/L Normal 135-146 [facility] Comment on above: Performed By: #### 7 600, 45080 #### [facility] of [address], [address] [place] [address] [employer] Converter: Chadwick Suárez MD Urea nitrogen [Mass/Vol] 18 mg/dL Normal 7-25 [facility] Comment on above: Performed By: #### 7 600, 47819 #### [facility] [place] [address] [employer] Converter: Chadwick Suárez MD LIPID PANEL, [facility] 10-2 Cholesterol [Mass/Vol] 235 mg/dL High <200 [facility] Comment on above: Order Comment: FASTI NG:YES AN UPDATE OR CORRECTION HAS BEEN MADE TO NAME FASTING: YES Performed By: #### 7 600, 40251 #### [facility] of [address], [address] [place] [address] [employer] Converter: Chadwick Suárez MD Cholesterol in HDL [Mass/Vol] 83 mg/dL Normal > OR = 50 [facility] Comment on above: Order Comment: FASTI NG:YES AN UPDATE OR CORRECTION HAS BEEN MADE TO NAME FASTING: YES Performed By: #### 7 600, 62765 #### [facility] of [address], [address] [place] [address] [employer] Converter: Chadwick Suárez MD Cholesterol in LDL [Mass/Vol] [...] LDL-C. Enrique BOUDREAUX et al. ROCCO. 2013;310(19): 9963-1461 (http://education.SolveBoard.Soci Ads/faq/AYQ621) Performed By: #### 7 600, 55291 #### [facility] [address], [address] [place] [address] [employer] Converter: Chadwick Suárez MD Cholesterol.total/Chol esterol in HDL [Mass ratio] 2.8 {ratio} Normal <5.0 [facility] Comment on above: Order Comment: FASTI NG:YES AN UPDATE OR CORRECTION HAS BEEN MADE TO NAME FASTING: YES Performed By: #### 7 600, 11100 #### [facility] [address], [address] [place] [address] [employer] Converter: Chadwick Suárez MD NON HDL CHOLESTEROL 152 [...] therapeutic option. Performed By: #### 7 600, 20070 #### [facility] [address], [address] [place] [address] [employer] Converter: Chadwick Suárez MD Triglyceride [Mass/Vol] 132 mg/dL Normal <150 [facility] Comment on above: Order Comment: FASTI NG:YES AN UPDATE OR CORRECTION HAS BEEN MADE TO NAME FASTING: YES Performed By: #### 7 600, 87023 #### [facility] [address], [address] [place] [address] [employer] Converter: Chadwick Suárez MD Office Visit (Oncology Surge [...] Dr. Francisca Rose at [facility] for medical oncology consultation for her in-transit [...] a prior mole. The patient moved from [place] 8 years ago and has not established [...] Gauze to (more content not included)... Normal [facility] Office Visit (Oncology Surge ry)on 12-25-2020 Follow-up [...] be referred to Dr. Francisca Rose at [facility] for medical oncology consultation. Her care will [...] a prior mole. The patient moved from [place] 8 years ago and has not established [...] Bacteria identified Cx Nom (Unsp spec) Abnormal [facility] Work Phone: MISCELLANEOUS CULT./SM.BACT. on 12-04-2020 MISCELLANEOUS CULT./SM.BACT. PATIENT: THERESA LUU LOCATION: [facility]#: [id number] : 47 AGE: SEX: F ORDERED BY: [...] DOSE DEPENDENT NS=NONSUSCEPTIBLE X=REPORTED IN ERROR Normal [facility] Comment on above: Performed By: #### M [facility] #### [facility] [address] [place] [address] Office Visit (Oncology Surge ry)on 12-04-2020 Follow-up [...] be referred to Dr. Francisca Rose at [facility] for medical oncology consultation. Her [...] a prior mole. The patient moved from [place] 8 years ago and has not established [...] The s (more content not included)... Normal [place] Office Visit (Oncology Surge ry)on 11-27-2020 Follow-up [...] be referred to Dr. Francisca Rose at [facility] for medical oncology consultation. Her [...] a prior mole. The patient moved from [place] 8 years ago and has not established [...] Malignant jerson (more content not included)... Normal [place] Dermatopathologyon 1 Dermatopathology [facility] Dermatopathology Laboratory [address] [place] [id number] DERMATOPATHOLOGY REPORT Name:THERESA LUU [facility]. Rec #. [id number] Location: [facility] Date of Procedure: 11/16/2020 Race: Date Received: [...] determined by the Department of Pathology at [facility]. The FDA does not require this [...] LEFT LOWER LEG MELANOMA: SPECIMEN Procedure: Re-excision Mittie node(s) biopsy Specimen Laterality: Left TUMOR Tumor [...] of Lymph Nodes Examined: 3 Number of Mittie Nodes Examined: 2 PATHOLOGIC STAGE CLASSIFICATION (pTNM, [...] ADDITIONAL FINDINGS Additional Findings: None ADDITIONAL TESTING CLINICAL TRANSFORMATION SPECIALIST BLOCKS: Normal Block: D1 - 5, 7, 18, 20 - 23 Tumor Block: D6, 8 - 17 Electronically Signed Out By SURAJ MELGAR MD/[facility] By the signature on this report, the individual or group listed as making the Final Interpretation/Diagnosis certifies that they have reviewed this case. Clinical History: A: Mittie lymph n (more content not included)... Normal [facility] Comment on above: Performed By: #### D #### Dermatopathology LYMPH GLANDon 11-16-2020 LYMPH GLAND Patient Name: THERESA LUU STUDY: LYMPH GLAND; 11/16/2020 10:05 am INDICATION: Malignant melanoma of left lower leg. COMPARISON: PET-CT 10/31/2020. ACCESSION NUMBER(S): [id number] ORDERING CLINICIAN: ALEX TRAMMELL TECHNIQUE: DIVISION OF NUCLEAR MEDICINE RADIONUCLIDE SENTINEL LYMPH NODE LYMPHOSCINTIGRAPHY A total of 970 microcuries of Tc-99m tilmanocept (Opternative) was injected intradermally in a circumferential pattern [...] review. Electronically signed by: COCO ARCHIBALD MD [facility] No Panel Informationon 11-16 [facility] Work Phone: Order Reconciliationon 11-16 Order Reconciliation [...] every 6 hours, As Needed pain Normal [facility] Patient Profile - Preop v2on 11-16-2020 Patient Profile - Preop v2 Profile: Initial Info: How to be Addressedpamela(1) Spoken Language PreferredEnglish (1) Source of Informationpatient Are you currently using the Personal Electronic Health Record or MYCAREyes Stated Reason for Admissionmelanoma on my lower left leg Primary Contact Name and Numberdonna-cousin Other Contact Names and Numberssue-friend Patient Belongingsremains with patient; patient educated regarding responsibility for personal items Patient Belongings Remaining with Patientclothing Medications Brought to Hospitalno General Health: Weight in kg90 kilogram(s) Weight in kwd045.4 pound(s) Weight Methodactual (measured) Scale Typechair Height in feet5 feet Height in inches2 inch(es) Height in cm157.4 centimeter(s) Height Methodstated BMI (kg/m2)36.327 square meter Patient or Family Member Reaction to Anesthesiano previous reaction Blood Avoidance/Restrictionsnone Previous Transfusion Reactionno Health Mgmt: Symptoms/Conditions Managed at Homecancer Cancer Symptoms/Conditionsmelanom a Barriers to Managing Healthnone Relationship/Environ: Living Arrangementshouse Lives Withalone Resource/Environmental Concernsnone [facility]ticipated [facility] Anticipated at Transitionnone Substance: Current or [...] material; individual instruction Cultural Considerationsnone Developmental Considerationsnone Anabaptism Considerationsnone Other learner availableno [place] RiskPatient location auto qualifies him/her for HIGH RISK. Are there any cultural, spiritual, pentecostalism practices/values/needs that are important for us to [...] Profile - Preop v2 14-Nov-2020 09:30 Normal [facility] Preop Checkliston 11-16-2020 Preop Checklist Preop Checklist: Preop Checklist: Arrival [id number] Arrival Time06:04 NPO [id number] 22:00 ID Band Onyes Allergy Bandno known [...] 16-Nov-2020 06:31 by Deepa Zazueta (GABY) Normal [facility] Radiologyon 11-16-2020 NM Lymph node Views Normal [facility] Work Phone: BASIC METABOLIC PANELon Anion gap [Moles/Vol] 10 mmol/L Normal 10 - 20 [facility] Comment on above: Performed By: #### B MP #### [address] [address] Calcium [Mass/Vol] 9.2 mg/dL Normal 8.6 - 10.3 [facility] Comment on above: Performed By: #### B MP #### [address] [address] Chloride [Moles/Vol] 105 mmol/L Normal 98 - 107 [facility] Comment on above: Performed By: #### B MP #### [address] [address] Creatinine [Mass/Vol] 0.81 mg/dL Normal 0.50 - 1.05 [facility] Comment on above: Performed By: #### B MP #### [address] [address] GFR- AM. >60 Normal >60 [facility] Comment on above: Result Comment: CALC ULATIONS OF ESTIMATED GFR ARE PERFORMED USING THE MDRD STUDY EQUATION FOR THE IDMS-TRACEABLE CREATININE METHODS. CLIN CHEM 2007;53:766-72 Performed By: #### B MP #### [address] [address] GFR-NON AM. >60 Normal >60 [facility] Comment on above: Performed By: #### B MP #### [address] [address] Glucose [Mass/Vol] 95 mg/dL Normal 74 - 99 [facility] Comment on above: Performed By: #### B MP #### [address] [address] HCO3 (Bld) [Moles/Vol] 30 mmol/L Normal 21 - 32 [facility] Comment on above: Performed By: #### B MP #### [address] [address] Potassium [Moles/Vol] 4.1 mmol/L Normal 3.5 - 5.3 [facility] Comment on above: Performed By: #### B MP #### [address] [address] Sodium [Moles/Vol] 141 mmol/L Normal 136 - 145 [facility] Comment on above: Performed By: #### B MP #### [address] [address] Urea nitrogen [Mass/Vol] 16 mg/dL Normal 6 - 23 [facility] Comment on above: Performed By: #### B MP #### [address] [address] CORONAVIRUS 2019, SCREEN ASY MPTOMATICon 11-14-2020 SARS-CoV-2 (COVID-19) RNA BENOIT+probe Ql (Unsp spec) Not detected Normal Not Detected [facility] Comment on above: Result Comment: . This [...] this test method. Fact sheet for providers: https://www.fda.gov/media/739956/download Fact sheet for patients: https://www.fda.gov/media/172252/download This test has received FDA Emergency Use Authorization [EUA] and has been verified by [facility] ([facility]). This test is only authorized for the duration of time that circumstances exist to justify the authorization of the emergency use of in vitro diagnostic tests for the detection of SARS-CoV-2 virus and/or diagnosis of COVID-19 infection under section 564(b)(1) of the Act, 21 U.S.C. 360bbb-3(b)(1), unless the authorization is terminated or revoked sooner. [facility] is certified under CLIA-88 as qualified to perform high complexity testing. Testing is performed in the [facility] laboratories located at [address] [place] [address]. Performed By: #### C OV[place] #### [place] [address] Lab Specimen Source Nasal, Nasopharyngeal Normal [facility] Comment on above: Performed By: #### C OV[place] #### [place] [address] Coronavirus 2019 RNA by PCR, Screening Asymptomticon 11-14-2020 Coronavirus 2019 RNA by PCR, Screening Asymptomtic Not detected Normal See Below [facility] Work Phone: Comment on above: SOURCE: Nasal, [...] this test method. Fact sheet for providers: https://www.fda.gov/media/921378/downloadFact sheet for patients: https://www.fda.gov/media/238720/downloadThis test has received FDA Emergency Use Authorization [EUA] and has been verified by [facility] ([facility]). This test is only authorized for the duration of time that circumstances exist to justify the authorization of the emergency use of in vitro diagnostic tests for the detection of SARS-CoV-2 virus and/or diagnosis of COVID-19 infection under section 564(b)(1) of the Act, 21 U.S.C. 360bbb-3(b)(1), unless the authorization is terminated or revoked sooner. [facility] is certified under CLIA-88 as qualified to perform high complexity testing. Testing is performed in the [facility] laboratories located at [address] [place] [address]. Covid 19 Resultson 1 SARS-CoV-2 (COVID-19) RNA [...] You may also be contacted by the [place] Department of Health to see if any [...] or Naproxen (Aleve) can also be used. Kyjm-nmu-kkxquwg cough and cold medicines can be used according to the instructions on the package. Some xprq-dtx-blvfvbr medicines also contain acetaminophen. Make sure you [...] water are not available, use alcohol-based hand carpenter helper maintenance. Avoid touching your eyes, nose, and mouth [...] 24 sivakumar (more content not included)... Normal [facility] Laboratory - Chemistry and C hemistry - challengeon 11-14-2020 Anion gap [Moles/Vol] 10 mmol/L 10 - 20 [facility] Work Phone: [phone] Calcium [Mass/Vol] 9.2 mg/dL 8.6 - 10.3 [facility] Work [facility]: [phone] Chloride [Moles/Vol] 105 mmol/L 98 - 107 [facility] Work Phone: [phone] CO2 [Moles/Vol] 30 mmol/L 21 - 32 [facility]ger yS [facility] Work Phone: [phone] Creatinine [Mass/Vol] 0.81 mg/dL See Below [facility] Work Phone: [phone] Comment on above: Reference Range: 0.5 0 - 1.05 Glucose [Mass/Vol] 95 mg/dL 74 - 99 [facility] nancyS [facility] Work Phone: [phone] Potassium [Moles/Vol] 4.1 mmol/L 3.5 - 5.3 [facility] Work Phone: [phone] Sodium [Moles/Vol] 141 mmol/L 136 - 145 [facility] Work Phone: [phone] Urea nitrogen [Mass/Vol] 16 mg/dL 6 - 23 RQ-Anprmsb-U [facility] Work Phone: [phone] Panel Informationon 11-14 >60 >60 PH-Wphkgha-A [facility] Work Phone: [phone] Comment on above: CALCULATIONS OF DENIS MATED GFR ARE PERFORMED USING THE MDRD STUDY EQUATION FOR THE IDMS-TRACEABLE CREATININE METHODS. CLIN CHEM 2007;53:766-72 [email or web address] 1:8080 /musescripts/museweb.dll?R etrieveTestByDateTime?Rachel hiqCN=[id number]&Date=11-14&Time=09%3a51%3a40%3a 00&TestType=ECG&Site=12&Ou tputType=PDF&Ext=PDF XX-Oflecov-S [facility] [place] Work Phone: [phone] Normal sinus rhythm [facility] rgery-S [facility] Work Phone: [phone] Normal GA-Kllzjdf-M [facility] Work Phone: [phone] 1 VV-Lnkqkfk-K [facility] Work Phone: [phone] EU-Hqlosqm-Y [facility] Work Phone: [phone] UH-Jfagqpr-L [facility] Work Phone: [phone] NB-Csoupnz-T [facility] Work Phone: [phone] 1 QV-Pbakyjz-L [facility] Work Phone: [phone] PZ[facility]fejin[facility]K [facility] Work Phone: [phone] HS-Rmgtedf-Q [facility] [place] Work Phone: [phone] UJ-Hbdxcmc-Q [facility] Work Phone: [phone] BF-Imyoxfq-Y [facility] [place] Work Phone: [phone] YZ-Chttggb-F [facility] [place] Work Phone: [phone] OP-Oibczrt-O [facility] Work Phone: [phone] DD-Zvfnqqf-W [facility] Work Phone: [phone] WK-Zvffcbw-C [facility] Work Phone: [phone] ZV-Jbpexxj-P [facility] Work Phone: PET/CT MELANOMA INITIAL MARIA TERESA Hansen 10-31-2020 PET/CT MELANOMA INITIAL STAGING Patient Name: [...] leg biopsy-proven melanoma. COMPARISON: None. ACCESSION NUMBER(S): [id number] ORDERING CLINICIAN: ALEX TRAMMELL TECHNIQUE: DIVISION OF [...] CODING: Initial Treatment Strategy (PI) CALIBRATION: Dose Jrwhijmva-kv-Bqib Interval (mins): 72 min Mediastinal bloodpool SUV [...] as stated. This study was interpreted at [facility]. Electronically signed by: IVELISSE OVALLE MD Normal [facility] Office Visit (Oncology Surge ry)on 10-23-2020 Follow-up [...] a prior mole. The patient moved from [place] 8 years ago and has not established [...] chronic medical conditions Social history: Lives in [facility] [place] [facility] independently. Has 2 dogs. Walks regularly. Denies tobacco, alcohol, and drug use. Has extended family in [facility] [place] [facility] Allergies: No known drug allergies ROS: The [...] of (more content not included)... Normal [facility] Surgical Pathology Depar tmenton 10-16-2020 [facility] Surgical Pathology Department Name THERESA LUU Pathologist: SHER DIAS MD Date of Procedure: 10/16/2020 Date Received: 10/31/2020 Date Reported 11/02/2020 Submitting Physician: SURAJ MELGAR MD Location: [facility] FINAL DIAGNOSIS RESULTS OF ANCILLARY TESTING ORDERED [...] extraction and testing are performed in the [facility] ([facility]) located at [address] [place] [address] (CLIA License #[id number], CAP #[id number]). This laboratory developed test was developed and its analytical performance characteristics have been determined by [facility]. This test has not been cleared or approved by the FDA; however, the FDA has determined that such approval is not necessary. The [facility] is certified under the Clinical Laboratory Improvement [...] as m (more content not included)... Normal [facility] Comment on above: Performed By: #### U [facility] #### [facility] [facility] Department [id number] [facility] [id number] Vital Signs Date Time Vital Sign Value Performing Clinician Facility 09-15-2023 16:00-0500 Body height 157.5 cm Yoni Furlong DO Work Phone: [facility] 09-15-2023 16:00-0500 Body mass index (BMI) [Ratio] 34.84 kg/m2 Yoni Furlong DO Work Phone: [facility] 09-15-2023 16:00-0500 Body temperature 98.91 [degF] Yoni Furlong DO Work Phone: [facility] 09-15-2023 16:00-0500 Body weight 86.41 kg Yoni Furlong DO Work Phone: [facility] 09-15-2023 16:00-0500 Diastolic blood pressure 50 mm[Hg] Yoni Furlong DO Work Phone: [facility] 09-15-2023 16:00-0500 Heart rate 80 /min Yoni Furlong DO Work Phone: [facility] 09-15-2023 16:00-0500 SaO2% (BldA) [Mass fraction] 96 % Yoni Furlong DO Work Phone: [facility] 09-15-2023 16:00-0500 Systolic blood pressure 130 mm[Hg] Yoni Furlong DO Work Phone: [facility] 08-07-2023 11:24-0500 Body temperature 98.2 [degF] DO Yoni Furlong Work Phone: [facility] 08-07-2023 11:24-0500 Body weight 89.35 kg DO Yoni Furlong Work Phone: [facility] 08-07-2023 11:24-0500 Diastolic blood pressure 70 mm[Hg] DO Yoni Furlong Work Phone: [facility] 08-07-2023 11:24-0500 Heart rate 88 /min DO Yoni Furlong Work Phone: [facility] 08-07-2023 11:24-0500 Respiratory rate 18 /min DO Yoni Furlong Work Phone: [facility] 08-07-2023 11:24-0500 SaO2% (BldA) [Mass fraction] 98 % DO Yoni Furlong Work Phone: [facility] 08-07-2023 11:24-0500 Systolic blood pressure 151 mm[Hg] DO Yoni Furlong Work Phone: [facility] 07-14-2023 13:32-0500 Body temperature 98.2 [degF] DO Yoni Furlong Work Phone: [facility] 07-14-2023 13:32-0500 Diastolic blood pressure 78 mm[Hg] DO Yoni Furlong Work Phone: [facility] 07-14-2023 13:32-0500 Heart rate 81 /min DO Yoni Furlong Work Phone: [facility] 07-14-2023 13:32-0500 Respiratory rate 18 /min DO Yoni Furlong Work Phone: [facility] 07-14-2023 13:32-0500 SaO2% (BldA) [Mass fraction] 97 % DO Yoni Furlong Work Phone: [facility] 07-14-2023 13:32-0500 Systolic blood pressure 113 mm[Hg] DO Yoni Furlong Work Phone: [facility] 03-24-2023 10:14-0400 Body height 160.02 cm DO Yoni Furlong Work Phone: [facility] 03-06-2023 13:49-0400 Body temperature 97.8 [degF] DO Yoni Furlong Work Phone: [facility] 03-06-2023 13:49-0400 Body weight 89.35 kg DO Yoni Furlong Work Phone: [facility] 03-06-2023 13:49-0400 Diastolic blood pressure 71 mm[Hg] DO Yoni [employer] Work Phone: [facility] 03-06-2023 13:49-0400 Heart rate 87 /min DO [employer] Work Phone: [facility] 03-06-2023 13:49-0400 Respiratory rate 16 /min DO [employer] Work Phone: [facility] 03-06-2023 13:49-0400 SaO2% (BldA) [Mass fraction] 94 % DO [employer] Work Phone: [facility] 03-06-2023 13:49-0400 Systolic blood pressure 139 mm[Hg] DO [employer] Work Phone: [facility] 01-27-2023 10:30-0400 Body temperature 97.5 [degF] Kimber Lacy Other [employer] Other 01-27-2023 10:30-0400 Body weight 87.54 kg Kimber Lacy Other [employer] Other 01-27-2023 10:30-0400 Diastolic blood pressure 80 mm[Hg] Kimber Regino Other [employer] Other 01-27-2023 10:30-0400 SaO2% (BldA) [Mass fraction] 96 % Kimber Reidraw Other [employer] Other 01-27-2023 10:30-0400 Systolic blood pressure 159 mm[Hg] Kimber Regino Other [employer] Other 01-27-2023 10:23-0400 Body temperature 97.5 [degF] DO Yoni Furlong Work Phone: [facility] 01-27-2023 10:23-0400 Body weight 88.49 kg DO Yoni Furlong Work Phone: [facility] 01-27-2023 10:23-0400 Diastolic blood pressure 80 mm[Hg] DO Yoni Furlong Work Phone: [facility] 01-27-2023 10:23-0400 Heart rate 90 /min DO Yoni Furlong Work Phone: [facility] 01-27-2023 10:23-0400 Respiratory rate 18 /min DO Yoni Furlong Work Phone: [facility] 01-27-2023 10:23-0400 SaO2% (BldA) [Mass fraction] 96 % DO Yoni Furlong Work Phone: [facility] 01-27-2023 10:23-0400 Systolic blood pressure 159 mm[Hg] DO Yoni Furlong Work Phone: [facility] 12-30-2022 09:56-0400 Body weight 88.45 kg DO Yoni Furlong Work Phone: [facility] 12-30-2022 08:26-0400 Body temperature 97.8 [degF] DO Yoni Furlong Work Phone: [facility] 12-30-2022 08:26-0400 Body weight 88.45 kg DO Yoni Furlong Work Phone: [facility] 12-30-2022 08:26-0400 Diastolic blood pressure 81 mm[Hg] DO Yoni Furlong Work Phone: [facility] 12-30-2022 08:26-0400 Heart rate 86 /min DO Yoni Furlong Work Phone: [facility] 12-30-2022 08:26-0400 Respiratory rate 16 /min DO Yoni Furlong Work Phone: [facility] 12-30-2022 08:26-0400 SaO2% (BldA) [Mass fraction] 98 % DO Yoni Furlong Work Phone: [facility] 12-30-2022 08:26-0400 Systolic blood pressure 132 mm[Hg] DO Yoni Furlong Work Phone: [facility] 09-08-2022 11:09-0500 Body weight 90.2 kg DO Yoni Furlong Work Phone: [facility] 09-08-2022 09:52-0500 Body temperature 97.9 [degF] DO Yoni Furlong Work Phone: [facility] 09-08-2022 09:52-0500 Body weight 90.2 kg DO Yoni Furlong Work Phone: [facility] 09-08-2022 09:52-0500 Diastolic blood pressure 82 mm[Hg] DO Yoni Furlong Work Phone: [facility] 09-08-2022 09:52-0500 Heart rate 78 /min DO Yoni Furlong Work Phone: [facility] 09-08-2022 09:52-0500 Respiratory rate 20 /min DO Yoni Furlong Work Phone: [facility] 09-08-2022 09:52-0500 SaO2% (BldA) [Mass fraction] 97 % DO Yoni Furlong Work Phone: [facility] 09-08-2022 09:52-0500 Systolic blood pressure 137 mm[Hg] DO Yoni Furlong Work Phone: [facility] 08-11-2022 11:25-0500 Body weight 89.4 kg DO Yoni Furlong Work Phone: [facility] 08-11-2022 10:28-0500 Body height 160.02 cm DO Yoni Furlong Work Phone: [facility] 08-11-2022 10:28-0500 Body temperature 97.4 [degF] DO Yoni Furlong Work Phone: [facility] 08-11-2022 10:28-0500 Diastolic blood pressure 68 mm[Hg] DO Yoni Furlong Work Phone: [facility] 08-11-2022 10:28-0500 Heart rate 82 /min DO Yoni Furlong Work Phone: [facility] 08-11-2022 10:28-0500 Respiratory rate 20 /min DO Yoni Furlong Work Phone: [facility] 08-11-2022 10:28-0500 SaO2% (BldA) [Mass fraction] 98 % DO Yoni Furlong Work Phone: [facility] 08-11-2022 10:28-0500 Systolic blood pressure 132 mm[Hg] DO Yoin Furlong Work Phone: [facility] 06-23-2022 12:05-0500 Body weight 88.6 kg DO Yoni Furlong Work Phone: [facility] 06-23-2022 10:44-0500 Body temperature 97.9 [degF] DO Yoni Furlong Work Phone: [facility] 06-23-2022 10:44-0500 Body weight 88.6 kg DO Yoni Furlong Work Phone: [facility] 06-23-2022 10:44-0500 Diastolic blood pressure 74 mm[Hg] DO Yoni Furlong Work Phone: [facility] 06-23-2022 10:44-0500 Heart rate 80 /min DO Yoni Furlong Work Phone: [facility] 06-23-2022 10:44-0500 Respiratory rate 18 /min DO Yoni Furlong Work Phone: [facility] 06-23-2022 10:44-0500 SaO2% (BldA) [Mass fraction] 98 % DO Yoni Furlong Work Phone: [facility] 06-23-2022 10:44-0500 Systolic blood pressure 141 mm[Hg] DO Yoni Furlong Work Phone: [facility] 06-02-2022 10:29-0500 Body temperature 97.7 [degF] DO Yoni Furlong Work Phone: [facility] 06-02-2022 10:29-0500 Body weight 89.9 kg DO Yoni Furlong Work Phone: [facility] 06-02-2022 10:29-0500 Diastolic blood pressure 82 mm[Hg] DO Yoni Furlong Work Phone: [facility] 06-02-2022 10:29-0500 Heart rate 92 /min DO Yoni Furlong Work Phone: [facility] 06-02-2022 10:29-0500 Respiratory rate 16 /min DO Yoni Furlong Work Phone: [facility] 06-02-2022 10:29-0500 SaO2% (BldA) [Mass fraction] 97 % DO Yoni Furlong Work Phone: [facility] 06-02-2022 10:29-0500 Systolic blood pressure 150 mm[Hg] DO Yoni Furlong Work Phone: [facility] 05-02-2022 15:07-0400 Body weight 92.8 kg DO Yoni Furlong Work Phone: [facility] 05-02-2022 15:07-0400 Diastolic blood pressure 83 mm[Hg] DO Yoni Furlong Work Phone: [facility] 05-02-2022 15:07-0400 Heart rate 87 /min DO Yoni Furlong Work Phone: [facility] 05-02-2022 15:07-0400 Respiratory rate 20 /min DO Yoni Furlong Work Phone: [facility] 05-02-2022 15:07-0400 SaO2% (BldA) [Mass fraction] 98 % DO Yoni Furlong Work Phone: [facility] 05-02-2022 15:07-0400 Systolic blood pressure 146 mm[Hg] DO Yoni Furlong Work Phone: [facility] 04-28-2022 09:07-0400 Diastolic blood pressure 76 mm[Hg] DO Yoni Furlong Work Phone: [facility] 04-28-2022 09:07-0400 Heart rate 93 /min DO Yoni Furlong Work Phone: [facility] 04-28-2022 09:07-0400 Respiratory rate 18 /min DO Yoni Furlong Work Phone: [facility] 04-28-2022 09:07-0400 SaO2% (BldA) [Mass fraction] 95 % DO Yoni Furlong Work Phone: [facility] 04-28-2022 09:07-0400 Systolic blood pressure 148 mm[Hg] DO Yoni Furlong Work Phone: [facility] 04-28-2022 08:11-0400 Body height 157.48 cm DO Yoni Furlong Work Phone: [facility] 04-28-2022 08:11-0400 Body temperature 98.6 [degF] DO Yoni Furlong Work Phone: [facility] 04-28-2022 08:11-0400 Body weight 91.17 kg DO Yoni Furlong Work Phone: [facility] 04-21-2022 08:54-0400 Body height 160.02 cm DO Yoni Furlong Work Phone: [facility] 04-21-2022 08:54-0400 Body temperature 98 [degF] DO Yoni Furlong Work Phone: [facility] 04-21-2022 08:54-0400 Body weight 91.48 kg DO Yoni Furlong Work Phone: [facility] 04-21-2022 08:54-0400 Diastolic blood pressure 87 mm[Hg] DO Yoni Furlong Work Phone: [facility] 04-21-2022 08:54-0400 Heart rate 85 /min DO Yoni Furlong Work Phone: [facility] 04-21-2022 08:54-0400 Respiratory rate 20 /min DO Yoni Furlong Work Phone: [facility] 04-21-2022 08:54-0400 SaO2% (BldA) [Mass fraction] 97 % DO Yoni Furlong Work Phone: [facility] 04-21-2022 08:54-0400 Systolic blood pressure 161 mm[Hg] DO Yoni Furlong Work Phone: [facility] 10-25-2021 09:45-0400 Body temperature 98 [degF] MD Alex Trammell Work Phone: [facility] 10-25-2021 09:45-0400 Body weight 90.94 kg MD Alex Trammell Work Phone: [facility] 10-25-2021 09:45-0400 Diastolic blood pressure 70 mm[Hg] MD Alex Trammell Work Phone: [facility] 10-25-2021 09:45-0400 Heart rate 90 /min MD Alex Trammell Work Phone: [facility] 10-25-2021 09:45-0400 Respiratory rate 20 /min MD Alex Trammell Work Phone: [facility] 10-25-2021 09:45-0400 SaO2% (BldA) [Mass fraction] 98 % MD Alex Trammell Work Phone: [facility] 10-25-2021 09:45-0400 Systolic blood pressure 141 mm[Hg] MD Alex Trammell Work Phone: [facility] 10-07-2021 08:13-0400 Body temperature 98.1 [degF] DO Sly Adamowicz II Work Phone: [facility] 10-07-2021 08:13-0400 Body weight 92.8 kg DO Sly Adamowicz II Work Phone: [facility] 10-07-2021 08:13-0400 Diastolic blood pressure 78 mm[Hg] DO Sly Adamowicz II Work Phone: [facility] 10-07-2021 08:13-0400 Heart rate 96 /min DO Sly Adamowicz II Work Phone: [facility] 10-07-2021 08:13-0400 Respiratory rate 20 /min DO Sly Adamowicz II Work Phone: [facility] 10-07-2021 08:13-0400 SaO2% (BldA) [Mass fraction] 97 % DO Sly Adamowicz II Work Phone: [facility] 10-07-2021 08:13-0400 Systolic blood pressure 144 mm[Hg] DO Sly Adamowicz II Work Phone: [facility] 03-28-2022 08:05-0400 Body height 160.02 cm DO Sly Benson II Work Phone: [facility] 09-17-2021 15:09-0500 Body temperature 98.6 [degF] Yoni Prolong Work Phone: [facility] Work Phone: 09-17-2021 15:09-0500 Body weight 89.54 kg Yoni Prolong Work Phone: [facility] Work Phone: 09-17-2021 15:09-0500 Diastolic blood pressure 81 mm[Hg] Yoni Prolong Work Phone: [facility] Work Phone: 09-17-2021 15:09-0500 Heart rate 101 /min Yoni Prolong Work Phone: [facility] Work Phone: 09-17-2021 15:09-0500 Respiratory rate 18 /min Yoni Prolong Work Phone: [facility] [place] [facility] Work Phone: 09-17-2021 15:09-0500 Systolic blood pressure 158 mm[Hg] Yoni Prolong Work Phone: [facility] [place] [facility] Work Phone: 01-22-2021 14:42-0400 Body weight 88.03 kg Yoni Larson Furlong Work Phone: IX-Xhsvlsw-Zvkgigas 150 Work Phone: 01-22-2021 14:42-0400 Diastolic blood pressure 84 mm[Hg] Yoni Larson Furlong Work Phone: IU-Ywdnxna-Ninsqhug 150 Work Phone: 01-22-2021 14:42-0400 Heart rate 102 /min Yoni G Furlong Work Phone: QP-Idxwznt-Joldtfgw 150 Work Phone: 01-22-2021 14:42-0400 SaO2% (BldA) [Mass fraction] 95 % Yoni G Furlong Work Phone: PK-Wioypiw-Iitmrfwq 150 Work Phone: 01-22-2021 14:42-0400 Systolic blood pressure 149 mm[Hg] Yoni G Furlong Work Phone: GM-Shesqjl-Gmujdcxf 150 Work Phone: 12-25-2020 15:23-0400 Body weight 89.36 kg Yoni G Furlong Work Phone: [facility] Work Phone: 12-25-2020 15:23-0400 Diastolic blood pressure 85 mm[Hg] Yoni G Furlong Work Phone: [facility] Work Phone: 12-25-2020 15:23-0400 Heart rate 105 /min Yoni G Furlong Work Phone: [facility] Work Phone: 12-25-2020 15:23-0400 SaO2% (BldA) [Mass fraction] 95 % Yoni G Furlong Work Phone: [facility] Work Phone: 12-25-2020 15:23-0400 Systolic blood pressure 163 mm[Hg] Yoni G Furlong Work Phone: [facility] Work Phone: 12-04-2020 15:07-0400 Diastolic blood pressure 84 mm[Hg] Yoni G Furlong Work Phone: [facility] Work Phone: 12-04-2020 15:07-0400 Heart rate 111 /min Yoni Prolong Work Phone: [facility] Work Phone: 12-04-2020 15:07-0400 SaO2% (BldA) [Mass fraction] 98 % Ynoi Prolong Work Phone: [facility] Work Phone: 12-04-2020 15:07-0400 Systolic blood pressure 154 mm[Hg] Yoni Prolong Work Phone: [facility] Work Phone: 11-27-2020 15:10-0400 Body weight 90.72 kg Yoni Prolong Work Phone: [facility] Work Phone: 11-27-2020 15:10-0400 Diastolic blood pressure 79 mm[Hg] Yoni Prolong Work Phone: [facility] Work Phone: 11-27-2020 15:10-0400 Heart rate 98 /min Yoni Prolong Work Phone: [facility] Work Phone: 11-27-2020 15:10-0400 SaO2% (BldA) [Mass fraction] 96 % Yoni Prolong Work Phone: [facility] Work Phone: 11-27-2020 15:10-0400 Systolic blood pressure 138 mm[Hg] Yoni Prolong Work Phone: [facility] Work Phone: 1945 23:00-0500 >na< Quentin Fitzpatrick Dept. of Eleazar matology Encounters Encounter Date Encounter Type Care Provider Facility Start: 09-17-2023 Orders Only [facility] Start: 09-15-2023 End: 09-15-2023 Office outpatient visit 25 minutes Yoni Muller DO Work Phone: [facility] Comment on above: Benign hypertension with chronic kidney disease, stage III ([facility]-HCC) (Primary Dx); Hyperlipidemia, unspecified hyperlipidemia type; Malignant melanoma of left lower leg (CMS-HCC); Class 2 severe obesity due to excess calories with serious comorbidity and body mass index (BMI) of 35.0 to 35.9 in adult Start: 09-08-2023 Refill Yoni hyatt DO [facility] Comment on above: Essential (primary) hypertension Start: 09-04-2023 ambulatory Sly rich II Facility:[facility] Start: 08-07-2023 ambulatory Sly rich II Facility:[facility] Start: 08-07-2023 Registered Recurring DO Yoni Furlong Work Phone: [facility] Acute Work Phone: Start: 08-07-2023 End: 08-07-2023 ambulatory DO Yoni Furlong Work Phone: [facility] Work Phone: Start: 08-07-2023 End: 08-07-2023 Patient encounter procedure DO Yoni Furlong Work Phone: [facility] Ambulatory Work Phone: Start: 03-06-2023 End: 03-06-2023 ambulatory DO Yoni Furlong Work Phone: [facility] Work Phone: Start: 03-06-2023 End: 03-06-2023 Registered Recurring DO Yoni Furlong Work Phone: [facility] Work Phone: Start: 01-27-2023 Office outpatient vi sit 25 minutes Kimberhanny Lacy [facility] Start: 01-27-2023 End: 01-27-2023 ambulatory DO Yoni Furlong Work Phone: [facility] Work Phone: Start: 01-27-2023 End: 01-27-2023 Registered Recurring DO Yoni Furlong Work Phone: [facility] Work Phone: Start: 12-30-2022 End: 12-30-2022 ambulatory DO Yoni Furlong Work Phone: [facility] Work Phone: Start: 12-30-2022 End: 12-30-2022 Registered Recurring DO Yoni Furlong Work Phone: [facility] Work Phone: Start: 12-30-2022 End: 12-30-2022 ambulatory DO Ynoi Furlong Work Phone: [facility] Work Phone: Start: 12-30-2022 End: 12-30-2022 Registered Recurring DO Yoni Furlong Work Phone: [facility] Work Phone: Start: 10-03-2022 End: 10-04-2022 ambulatory SLY BENSON Facility: Start: 09-08-2022 End: 09-08-2022 ambulatory DO Yoni Furlong Work Phone: [facility] Work Phone: Start: 09-08-2022 End: 09-08-2022 Registered Recurring DO Yoni Furlong Work Phone: [facility] Work Phone: Start: 09-05-2022 End: 09-06-[address] YONI MULLER Facility:[facility] Start: 08-11-2022 End: 08-11-2022 ambulatory DO Yoni Furlong Work Phone: [facility] Work Phone: Start: 08-11-2022 End: 08-11-2022 Registered Recurring DO Yoni Furlong Work Phone: [facility] Work Phone: Start: 07-21-2022 End: 07-22-2022 ambulatory SLY Rachele BENSON Facility:[facility] Start: 06-23-2022 End: 06-23-2022 ambulatory DO Yoni Furlong Work Phone: [facility] Work Phone: Start: 06-23-2022 End: 06-23-2022 Registered Recurring DO Yoni Furlong Work Phone: [facility] Start: 06-23-2022 End: 06-23-2022 ambulatory DO Yoni Furlong Work Phone: [facility] Work Phone: Start: 06-23-2022 End: 06-23-2022 Registered Recurring DO Yoni Furlong Work Phone: [facility] Start: 06-20-2022 End: 06-21-[address] YONI MULLER Facility:[facility] Start: 06-02-2022 End: 06-02-2022 ambulatory DO Yoni Furlong Work Phone: [facility] Work Phone: Start: 06-02-2022 End: 06-02-2022 Registered Recurring DO Yoni Furlong [facility] [place] Start: 05-30-2022 End: 05-31-2022 ambulatory SLY BENSON Facility:[facility] Start: 05-13-2022 End: 05-14-2022 ambulatory SLY BENSON Facility:[facility] Start: 05-10-2022 End: 05-11-2022 ambulatory SLY BENSON Facility:[facility] Start: 05-02-2022 End: 05-02-2022 ambulatory DO Yoni Furlong Work Phone: [facility] Work Phone: Start: 05-02-2022 End: 05-02-2022 Registered Recurring DO Yoni Furlong [facility] [place] Start: 04-28-2022 End: 04-28-2022 Admission to same day surgery center DO Yoni Furlong Work Phone: [facility] [place] Start: 04-28-2022 End: 04-28-2022 ambulatory DO Yoni Furlong Work Phone: [facility] Work Phone: Start: 04-21-2022 End: 04-21-2022 ambulatory DO Yoni Furlong Work Phone: [facility] Work Phone: Start: 04-21-2022 End: 04-21-2022 Registered Recurring DO Yoni Furlong [facility] Phone[facility] Start: 03-26-2022 End: 03-26-2022 Patient encounter procedure DO Yoni Furlong Work Phone: [facility] [place] Start: 10-25-2021 End: 10-25-2021 Registered Recurring MD Alex Trammell Work Phone: [facility] [place] Start: 10-10-2021 End: 10-10-2021 Patient encounter procedure DO Sly Xiaokinsey II Work Phone: [facility] [place] Start: 10-07-2021 End: 10-07-2021 Registered Recurring DO Sly Benson II Work Phone: [facility] Start: 10-07-2021 Registered Recurring DO Clinton Benson II Work Phone: [facility] Start: 09-24-2021 AUDIT Yoni Holloway ng Work Phone: [facility] Work Phone: Start: 09-23-2021 Chart Update Yoni hyatt Work Phone: [facility] Work Phone: Start: 09-17-2021 Office outpatient ne w 30 minutes Yoni Muller Work Phone: [facility] Work Phone: Start: 09-17-2021 Office outpatient vi sit 15 minutes Yoni Muller Work Phone: XL-Elsewrh-Jbtau Main Work Phone: Start: 01-22-2021 Office outpatient vi sit 15 minutes Yoni Muller Work Phone: MK-Iugsobe-Glzgpvzi 150 Work Phone: Start: 01-12-2021 AUDIT Yoni Holloway ng Work Phone: PG[facility]vzpqdf[facility] Work Phone: Start: 12-25-2020 Office outpatient vi sit 25 minutes Yoni Hollowayng Work Phone: XI-Mwmcgto-Qzmjybpr 150 Work Phone: Start: 12-25-2020 Patient encounter procedure Yoni Muller Work Phone: [facility] Work Phone: Start: 12-17-2020 AUDIT Yoni hyatt Work Phone: [facility] Work Phone: Start: 12-04-2020 FUV, Provider: Alex Trammell, Status: Pen, Time: 3:00 PM Yoni Muller Work Phone: [facility] Work Phone: Start: 12-04-2020 Patient encounter procedure Yoni Muller Work Phone: [facility] Work Phone: Start: 11-27-2020 Postop follow up vis it related to original px Yoni Muller Work Phone: [facility] Work Phone: Start: 11-27-2020 Quentin Fitzpatrick Dep t. of Dermatology Start: 11-13-2020 [facility] Start: 10-23-2020 [employer] t[facility] Dermatology Procedures Date Procedure Procedure Detail Performing Clinician Start: 09-15-2023 Adult depression screening assessment Yoni Hollowayng DO Work Phone: Start: 08-06-2023 Computed tomography of abdomen and pelvis with contrast DO Yonijanee Prolong Work Phone: Start: 08-06-2023 CT of thorax with contrast DO Yoni Furlong Work Phone: Start: 03-05-2023 Computed tomography of abdomen and pelvis with contrast DO Yoni Furlong Work Phone: Start: 03-05-2023 CT of thorax with contrast DO Yoni Furlong Work Phone: Start: 02-06-2023 Adult depression screening assessment Yoni Mortezalong DO Work Phone: Start: 10-31-2022 Computed tomography of [...] Treatment Date Care Activity Detail Author Start: 09-14-2024 Adult BMI Screening Adult BMI Screen ing [facility] Start: 09-14-2024 Depression Screening Depression Scre ening [facility] Start: 09-14-2024 Fall Risk Screening Fall Risk Screen ing [facility] Start: 09-14-2024 Tobacco Screening Tobacco Screening [facility] Start: 03-17-2024 End: 03-17-2024 Patient encounter procedure 03/17/2024 4:15 PM EDT Office Visit [facility] [address] [place] [id number] Yoni Muller, [address], [facility] [place] [address] [facility] Start: 02-07-2024 Administration of va ricella zoster vaccine Zoster (Shingles) Vaccine (1 of 2) [facility] Comment on above: Postponed from 10/02 (Patient Refused) Start: 02-07-2024 Adult BMI Screening Adult BMI Screen ing [facility] Start: 02-07-2024 Depression Screening Depression Scre ening [facility] Start: 02-07-2024 DTaP,Tdap and Td Vac cines (1 - Tdap) DTaP,Tdap and Td Vaccines (1 - Tdap) [facility] Comment on above: Postponed from 10/02 (Patient Refused) Start: 02-07-2024 Tobacco Screening Tobacco Screening [facility] Start: 01-11-2024 Medicare Annual Well ness Visit Medicare Annual Wellness Visit [facility] Comment on above: Postponed from 10/02 (Patient Refused) Start: 10-11-2023 Influenza vaccination Influenza Vacc ine [facility] Comment on above: Postponed from 03/13 (Patient Refused) Start: 09-15-2023 End: 09-15-2023 Patient encounter procedure 09/15/2023 4:00 PM EST Office Visit [facility] [address] [place] [address] Yoni Muller DO [address] [facility] [place] [address] [facility] Start: 08-07-2023 [facility] Start: 08-06-2023 End: 08-07-2023 [facility] Start: 08-06-2023 Adrenocorticotropic hormone measurement [facility] Start: 07-14-2023 [facility] Start: 07-14-2023 [facility] Start: 06-17-2023 Fall Risk Screening Fall Risk Screen ing [facility] Start: 06-16-2023 [facility] Start: 05-19-2023 [facility] Start: 04-21-2023 [facility] Start: 03-24-2023 [facility] Start: 03-13-2023 COVID-19 Vaccine () COVID-19 Vaccine () [facility] Start: 03-13-2023 Influenza vaccination Influenza Vacc ine [facility] Start: 02-24-2023 [facility] Start: 01-27-2023 [facility] Start: 01-27-2023 [facility] Start: 12-30-2022 Adrenocorticotropic hormone measurement [facility] Start: 12-30-2022 [facility] Start: 12-30-2022 [facility] Start: 12-25-2022 [facility] Start: 12-01-2022 [facility] Start: 11-03-2022 [facility] Start: 10-06-2022 [facility] Start: 09-08-2022 [facility] Start: 09-08-2022 [facility] Start: 08-11-2022 [facility] Start: 07-23-2022 [facility] Start: 06-23-2022 [facility] Start: 06-23-2022 Adrenocorticotropic hormone measurement [facility] Start: 06-23-2022 [facility] Start: 06-02-2022 [facility] Start: 05-12-2022 End: 05-12-2022 [facility] Start: 05-12-2022 [facility] Start: 04-28-2022 [facility] Start: 04-28-2022 [facility] Start: 04-28-2022 [facility] Start: 02-19-2021 FUV, Provider: Alex Trammell, Status: Pen, Time: 3:00 PM FUV, Provider: Alex Trammell, Status: Pen, Time: 3:00 PM [id number] 150 Work Phone: Start: 01-22-2021 FUV, Provider: Alex Trammell, Status: Pen, Time: 3:00 PM FUV, Provider: Alex Trammell, Status: Pen, Time: 3:00 PM [id number] 150 Work Phone: Start: 12-25-2020 FUV, Provider: Alex Trammell, Status: Pen, Time: 3:00 PM FUV, Provider: Alex Trammell, Status: Pen, Time: 3:00 PM [id number] Work Phone: Start: 1963 Adult BMI Follow Up Plan Adult BMI Follow Up Plan [employer] Adrenocorticotropic hormone measurement [facility] Adrenocorticotropic hormone measurement [facility] Work Phone: Adrenocorticotropic hormone measurement [facility] Adrenocorticotropic hormone measurement [facility] Adrenocorticotropic hormone measurement [facility] Adrenocorticotropic hormone measurement [facility] Adrenocorticotropic hormone measurement [facility] Adrenocorticotropic hormone measurement [facility] Adrenocorticotropic hormone measurement [facility] Adrenocorticotropic hormone measurement [facility] Basophils [#/volume] in Blood by Automated count [facility] Basophils/100 leukoc ytes in Blood by Automated count [facility] Blood chemistry [facility] Blood chemistry [facility] Comprehensive metabo lic 1999 panel - Serum or Plasma [facility] Comprehensive metabo lic 1999 panel - Serum or Plasma [facility] Comprehensive metabo lic 1999 panel - Serum or Plasma [facility] Comprehensive metabo lic 1999 panel - Serum or Plasma [facility] Comprehensive metabo lic 1999 panel - Serum or Plasma [facility] Comprehensive metabo lic 1999 panel - Serum or Plasma [facility] Comprehensive metabo lic 1999 panel - Serum or Plasma [facility] Comprehensive metabo lic 1999 panel - Serum or Plasma [facility] Comprehensive metabo lic 1999 panel - Serum or Plasma [facility] Comprehensive metabo lic 1999 panel - Serum or Plasma [facility] Computed tomography for radiotherapy planning [facility] Cortisol [Mass/volum e] in Serum or Plasma [facility] Cortisol [Mass/volum e] in Serum or Plasma [facility] Cortisol [Mass/volum e] in Serum or Plasma [facility] Work Phone: Cortisol [Mass/volum e] in Serum or Plasma [facility] Cortisol [Mass/volum e] in Serum or Plasma [facility] CT Abdomen and Pelvi s W contrast IV [facility] CT Abdomen and Pelvi s W contrast IV [facility] CT Abdomen and Pelvi s W contrast IV [facility] CT Abdomen and Pelvi s W contrast IV [facility] CT Chest W contrast IV [facility] CT Chest W contrast IV [facility] CT Chest W contrast IV [facility] CT Chest W contrast IV [facility] Eosinophils/100 leuk ocytes in Blood by Automated count [facility] Erythrocyte distribu tion width [Ratio] by Automated count [facility] Erythrocyte sediment ation rate by Photometric method [facility] Erythrocytes [#/volu me] in Blood [facility] Hematocrit [Volume F raction] of Blood [facility] Hemoglobin [Mass/vol ume] in Blood [facility] Hepatic function panel [facility] Hepatic function panel [facility] Homogenous nuclear A b pattern [Titer] in Serum [facility] Work Phone: Lactate dehydrogenas e [Enzymatic activity/volume] in Unspecified specimen [facility] Lactate dehydrogenas e [Enzymatic activity/volume] in Unspecified specimen [facility] Lactate dehydrogenas e [Enzymatic activity/volume] in Unspecified specimen [facility] Lactate dehydrogenas e [Enzymatic activity/volume] in Unspecified specimen [facility] Lactate dehydrogenas e [Enzymatic activity/volume] in Unspecified specimen [facility] Leukocytes [#/volume ] corrected for nucleated erythrocytes in Blood by Automated coun [facility] Leukocytes [#/volume ] in Blood [facility] Lipase measurement [facility] Lipase measurement [facility] Lipase measurement [facility] Lymphocytes [#/volum e] in Blood by Automated count [facility] Lymphocytes/100 leuk ocytes in Blood by Automated count [facility] MCH [Entitic mass] b y Automated count [facility] MCHC [Mass/volume] b y Automated count [facility] MCV [Entitic volume] by Automated count [facility] Monocytes [#/volume] in Blood by Automated count [facility] Monocytes/100 leukoc ytes in Blood by Automated count [facility] Neutrophils [#/volum e] in Blood by Automated count [facility] Neutrophils/100 leuk ocytes in Blood by Automated count [facility] Nuclear Ab [Titer] in Serum [facility] Work Phone: Nucleated erythrocyt es [Presence] in Blood by Automated count [facility] Patient Education [facility] Work Phone: Platelet mean volume [Entitic volume] in Blood by Automated count [facility] Platelets [#/volume] in Blood [facility] Thyrotropin [Units/v olume] in Serum or Plasma [facility] Thyrotropin [Units/v olume] in Serum or Plasma [facility] Thyrotropin [Units/v olume] in Serum or Plasma [facility] Thyrotropin [Units/v olume] in Serum or Plasma [facility] Thyrotropin [Units/v olume] in Serum or Plasma [facility] Thyrotropin [Units/v olume] in Serum or Plasma [facility] Thyrotropin [Units/v olume] in Serum or Plasma [facility] Thyroxine (T4) free [Mass/volume] in Serum or Plasma [facility] Thyroxine (T4) free [Mass/volume] in Serum or Plasma [facility] Work Phone: Thyroxine (T4) free [Mass/volume] in Serum or Plasma [facility] Thyroxine (T4) free [Mass/volume] in Serum or Plasma [facility] Thyroxine (T4) free [Mass/volume] in Serum or Plasma [facility] Thyroxine (T4) free [Mass/volume] in Serum or Plasma [facility] Ultrasonic guidance for needle biopsy [facility] Immunizations Immunization Date Immunization Notes Care Provider Fa [facility] 1945 pneumococcal conjuga te vaccine, 7 valent Quentin Fitz[facility] Payers Date Payer Category Payer Self-pay [id number] 2022 Medicare [id number] Private Health Insurance [id number] 1945 Unknown [id number] 1945 Unknown [id number] 1945 Unknown [id number] 1945 Unknown [id number] 1945 Unknown [id number] 1946 Unknown [id number] 1945 Unknown [id number] 1945 Unknown [id number] Unknown Unknown HCAP/HFA/FAP Active [id number] Unknown [id number] Unknown [id number] Social History Date Type Detail Facility Start: 10-23-2020 [facility] Start: 1945 Sex Assigned At Female [facility] Start: 10-07-2021 End: 06-17-2022 Tobacco smoking status NHIS Never smoked tobacco (finding) [facility] Start: 06-17-2022 End: 09-15-2023 Sex Assigned At [employer] [facility] Start: 06-17-2022 Tobacco use and exposure Smokeless tobacco non-user [facility] Start: 02-06-2023 End: 09-15-2023 Alcohol intake Current drinker of alcohol (finding) [facility] Start: 06-17-2022 End: 09-15-2023 History of Social function [facility] Do you belong to any clubs or organizations such as judaism groups, unions, fraternal or athletic groups, or school groups? Yes [facility] Are you now , , , , never or living with a partner? [facility] How often to you hav e a drink containing alcohol? Monthly or less [facility] How many standard dr inks containing alcohol do you have on a typical day? 1 or 2 [facility] How often do you hav e 6 or more drinks on 1 occasion? Never [facility] How hard is it for y ou to pay for the very basics like food, housing, medical care, and heating Not hard at all [facility] Do you feel stress - tense, restless, nervous, or anxious, or unable to sleep at night because your mind is troubled all the time - these days [OSQ] Only a little [facility] Start: 06-17-2022 Alcohol Comment rarely [facility] Start: 1945 Sex Assigned At Not on file [facility] Has the electric, [employer] s, oil, or water company threatened to shut off services in your home in past 12Mo No [facility] Goals Date Patient Goal Desired Activity /State Clinical Notes 12-04-2012 to 09-15-2023 Yoni Muller, DO - 09/15/2023 4:00 PM EST Note Date & Type Note Facility 09-15-2023 History of Present illness Narrative Subjective Patient ID: Theresa Luu is a 77 y.o. female. Madison presents today for CV recheck. She is taking her medications. She has not having any side effects. She says she is seeing the specialist and they are getting labs done. Her left leg does ache at times. She uses Advil for pain which works. The following portions of the patient's history were reviewed and updated as appropriate: allergies, current medications, past family history, past medical history, past social history, past surgical history, problem list, and medication reconciliation was completed including current medication and post discharge medication. Review of Systems Constitutional: Negative. HENT: Negative. Eyes: Negative. Respiratory: Negative. Cardiovascular: Negative. Gastrointestinal: Negative. Genitourinary: Negative. Musculoskeletal: Positive for arthralgias. Skin: Negative. Neurological: Negative. Psychiatric/Behavioral: Negative. Objective Physical Exam Constitutional: General: She is not in acute distress. Appearance: She is obese. She is not ill-appearing. Neck: Vascular: No carotid bruit. Cardiovascular: Rate and Rhythm: Normal rate and regular rhythm. Pulses: Normal pulses. Heart sounds: Normal heart sounds. No murmur heard. Pulmonary: Effort: Pulmonary effort is normal. No respiratory distress. Breath sounds: Normal breath sounds. No wheezing, rhonchi or rales. Musculoskeletal: Cervical back: Neck supple. Right lower leg: No edema. Left lower leg: No edema. Lymphadenopathy: Cervical: No cervical adenopathy. Skin: General: Skin is warm and dry. Findings: No lesion. Neurological: General: No focal deficit present. Mental Status: She is alert and oriented to person, place, and time. Psychiatric: Attention and Perception: Attention normal. Mood and Affect: Mood and affect normal. Speech: Speech normal. Behavior: Behavior normal. Behavior is cooperative. Thought Content: Thought content normal. Cognition and Memory: Cognition normal. Judgment: Judgment normal. Assessment/Plan Theresa was seen today for hypertension. Diagnoses and all orders for this visit: Benign hypertension with chronic kidney disease, stage III ([facility]) - Basic Metabolic Panel; Future - CBC; Future - Magnesium; Future - Parathyroid Hormone, intact; Future - Phosphorus; Future - Vitamin D 25 hydroxy; Future - Uric acid; Future Her blood pressure is essentially at goal. Her stage 3 chronic kidney disease was discussed. She is using Advil [id number]-[id number] and I recommended she use Tylenol instead to help protect her kidneys. She was given a written note with these instructions. Check chronic kidney disease labs. Hyperlipidemia, unspecified hyperlipidemia type - Lipid panel; Future Check lipids. Malignant melanoma of left lower leg ([facility]) Follow up with specialists as directed. Labs that were ordered by the specialist and tests were reviewed. Class 2 severe obesity due to excess calories with serious comorbidity and body mass index (BMI) of 35.0 to 35.9 in adult She is obese. She has not doing any exercise. She was encouraged to continue. Diet exercise and weight loss discussed. It is contributing to high blood pressure and high cholesterol. documented in this encounter [employer] 02-13-2023 Progress note Note Date/Time January 27, 2023 3:58pm [facility] [address] [place] [address] Progress Note Signed Patient: Theresa Luu MR#: [id number] : 1945 Acct:[id number] Age/Sex: 77 / F Adm Date: 3 Loc: XT Room: [facility] Att[facility] Dr: Sly Benson II DO Copies to: ~ Date of Service: 01/27/2023 Subjective History of Present Illness HPI: Madison is seen during immunotherapy today and we continue our discussion of goals of care/advance care planning. She has reviewed the making choices booklet and is planning to meet with an exercise teacher to complete financial POA and business matters [...] 01/27/23 10:23 01/27/23 10:23 01/27/23 10:23 01/27/23 10:01/27/23 10:23 Patient was seen by Kristen Lacy, nurse practitioner. I reviewed the above note. Documented By: Kimber Lacy APRN 01/27/23 1556 Signed By: <Electronically signed by ANTOINETTE Lacy> 01/27/23 1558 <Electronically signed by DO Efren Burris> 02/13/23 1509 [facility] Work Phone: 1(628) 510-104707-18-2023 Evaluation note* Encounter Date Diagnosis Assessment Notes [...] of the order given to the patient. [employer] [facility] 06-20-2023 Progress note Author Senia Montez [facility] December 30, 2022 11:06am Note Date/Time December 30, 2022 8:35 am [facility] [place] [address] Hem/Onc Follow Up Note - OP Signed Patient: Theresa Luu MR#: [id number] : 1945 Acct:[id number] Age/Sex: 77 / F Type: REG RCR Copies to: DO Alex Acuña MD Adamowicz, II, DO~ Date of Service: 12/30/2022 Time [...] leg melanoma removed by Dr. Trammell at [facility] in November 162020 with sentinel node biopsy [...] and has CT scans scheduled for at [facility]. She is doing well, no major medical [...] for coordination of care (as documented) and [id number] counseling of patient and/or family. [facility] - Medical History Medical History: Medical History [...] <Electronically signed by ANTOINETTE Montez> 12/30/22 1106 [facility] Work Phone: 1(824) 742-643704-24-2023 Progress note Author Sly Benson [facility] November 03, 2022 10:27am Note Date/Time November 03, 2022 10: 22am [facility] [place] [address] Hem/Onc Follow Up Note - OP Signed Patient: Theresa Luu MR#: [id number] : 1945 Acct:[id number] Age/Sex: 77 / F Type: REG RCR [...] Up Instructions: cont monthly nivolumab. 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 cbc, cmp, tsh monthly. [...] leg melanoma removed by Dr. Trammell at [facility] in November 162020 with sentinel node biopsy [...] and has CT scans scheduled for at [facility]. She is doing well, no major medical [...] for coordination of care (as documented) and hwwq-fm-sgjg counseling of patient and/or family. [facility] - Medical History Medical History: Medical History [...] % (Auto) 59.6, Lymph % (Auto) 26.5, Sargent % (Auto) 11.2, Eos % (Auto) 1.8, Baso % (Auto) 0.9, Nucleat RBC Rel Count 0.0, Neut # (Auto) 4.0, Lymph # (Auto) 1.8, Sargent # (Auto) 0.8, Eos # (Auto) 0.1, [...] by Sly Benson II, DO> 11/03/22 1027 [facility] Work Phone: 1(809) 207-119803-27-2023 Progress note Author Zenobia Parker [facility] October 06, 2022 11:42am Note Date/Time October 06, 2022 11: 28am [facility] [place] [address] Hem/Onc Follow Up Note - OP Signed Patient: Theresa Luu MR#: [id number] : 1945 Acct:[id number] Age/Sex: 77 / F Type: REG RCR [...] leg melanoma removed by Dr. Trammell at [facility] in November 162020 with sentinel node biopsy [...] and has CT scans scheduled for at [facility]. She is doing well, no major medical [...] 10 point review of systems is negative. [facility] - Medical History Medical History: Medical History [...] for coordination of care (as documented) and qyqx-vh-jdnq counseling of patient and/or family. Dictated By: Zenobia Parker APRN DD/ 112 Signed By: <Electronically signed by ANTOINETTE Parker> 10/06/22 1142 [facility] Work Phone: 1(979) 425-760403-20-2023 Progress note Author Bebeto Pandya [facility] September 29, 2022 1:11pm Note Date/Time September 29, 2022 9:[address] [place] [address] [place] [address] Rad Onc Follow Up Note - OP Signed Patient: Theresa Luu MR#: [id number] : 1945 Acct:[id number] Age/Sex: 76 / F Type: REG RCR [...] a left lower leg melanoma removed at [facility] in November 162020 with sentinel node biopsy [...] get her first maintenance dose of the Mills on August 11, [address]. [address] [...] signed by Bebeto Pandya MD> 09/29/22 1311 [facility] Work Phone: 1(252) 648-189102-27-2023 Progress note Author Sly Benson [facility] September 08, 2022 10:18am Note Date/Time September 08, 2022 10:08am [facility] [place] [id number] Hem/Onc Follow Up Note - OP Signed Patient: Theresa Luu MR#: [id number] : 1945 Acct:[id number] Age/Sex: 76 / F Type: REG RCR Copies to: Yoni Neo Muller,DO Alex Trammell MD~ Date of Service: 09/08/2022 [...] leg melanoma removed by Dr. Trammell at [facility] in November 162020 with sentinel node biopsy [...] and [facility] HEALTHCARE. She is doing well, no major medical [...] for coordination of care (as documented) and stma-gz-xmel counseling of patient and/or family. [facility] - Medical History Medical History: Medical History [...] by Sly Benson II, DO> 09/08/22 [address] [facility] Work Phone: 1([phone] 220-821501-31-2023 Consult note Author Bebeto Pandya [facility] August 12, 2022 1:39pm Note Date/Time August 12, 2022 8 :51am [facility] [place] [address] Rad Onc Consult Note - OP Signed Patient: Theresa Luu MR#: [id number] : 1945 Acct:[id number] Age/Sex: 76 / F Type: REG RCR Copies to: DO Alex Acuña MD, II, DO~ Assessment & Plan (1) Inguinal adenopathy Plan: CT simulation-plan for palliative radiation to the left inguinal brrizdotvnvaqxc27 Luis in 5 fractions delivered every other [...] a left lower leg melanoma removed at [facility] in November 162020 with sentinel node biopsy [...] get her first maintenance dose of the [place] on August 11, 2022. Her repeat CT [...] ibuprofen. She denies any other pelvic complaints. [facility] - Medical History Medical History: Medical History [...] <Electronically signed by Bebeto Pandya MD> 08/12/22 35[address] [facility] Work Phone: 1([phone]) 950-114601-30-2023 Progress note Author Sly Benson [facility] August 11, 2022 11:03am Note Date/Time August 11, 2022 1 0:48am [facility] [place] [address] Hem/Onc Follow Up Note - OP Signed Patient: Theresa Luu MR#: [id number] : 1945 Acct:[id number] Age/Sex: 76 / F Type: REG RCR [...] leg melanoma removed by Dr. Trammell at [facility] in November 162020 with sentinel node biopsy [...] and has CT scans scheduled for at [facility]. She is doing well, no major medical [...] maybe 3 days. worse after hot showers. [employer] really works for this. 08/11/22 She is [...] for coordination of care (as documented) and xhpk-ij-wefz counseling of patient and/or family. [facility] - Medical History Medical History: Medical History [...] % (Auto) 58.6, Lymph % (Auto) 29.6, Sargent % (Auto) 9.0, Eos % (Auto) 2.1, Baso % (Auto) 0.7, Nucleat RBC Rel Count 0.1, Neut # (Auto) 4.4, Lymph # (Auto) 2.2, Sargent # (Auto) 0.7, Eos # (Auto) 0.2, [...] by Sly Benson II, DO> 08/11/22 [address] [facility] Work Phone: 1(255) 494-559412-12-2022 Progress note Author Sly Benson [facility] June 23, 2022 11:22am Note Date/Time June 23, 2022 11:18am [facility] [place] [id number] Hem/Onc Follow Up Note - OP Signed Patient: Theresa Luu MR#: [id number] : 1945 Acct:[id number] Age/Sex: 76 / F Type: REG RCR [...] leg melanoma removed by Dr. Trammell at [facility] in November 162020 with sentinel node biopsy [...] and has CT scans scheduled for at [facility]. She is doing well, no major medical [...] for coordination of care (as documented) and ghvs-kt-vrls counseling of patient and/or family. [facility] - Medical History Medical History: Medical History [...] by Sly Benson II, DO> 06/23/22 [address] [facility] Work Phone: [phone]) 744-694412-12-2022 Progress note Author Sly Benson [facility] June 23, 2022 11:22am Note Date/Time June 23, 2022 11:18am [facility] [place] [address] Hem/Onc Follow Up Note - OP Signed Patient: Theresa Luu MR#: [id number] : 1945 Acct:[id number] Age/Sex: 76 / F Type: REG RCR [...] referred for melanoma primary patient of Yoni Yohana, pastmedical history includes essential hypertension, basal cell carcinoma on her upper back in September 2020hyperlipidemia, malignant tumor of the breast in September 1996 on the left side she had a mastectomy with no chemotherapy or radiation. Outpatient medications include hydrochlorothiazide and simvastatin. She initially had a left lower leg melanoma removed by Dr. Trammell at [facility] in November 162020 with sentinel node biopsy [...] and has CT scans scheduled for at [facility]. She is doing well, no major medical [...] for coordination of care (as documented) and ndrl-hv-pyfb counseling of patient and/or family. [facility] - Medical History Medical History: Medical History [...] Dictated By: Sly Benson II, DO DD/ 15 Signed By: <Electronically signed by Sly Benson II, DO> 06/23/22 [address] [facility] Work Phone: 1([phone]) 833-132811-21-2022 Progress note Author Zenobia Parker [facility] June 02, 2022 11:05am Note Date/Time June 02, 2022 11:01[facility] [place] [address] Hem/Onc Follow Up Note - OP Signed Patient: Theresa Luu MR#: [id number] : 1945 Acct:[id number] Age/Sex: 76 / F Type: REG RCR [...] leg melanoma removed by Dr. Trammell at [facility] in November 162020 with sentinel node biopsy [...] and has CT scans scheduled for at [facility]. She is doing well, no major medical [...] for coordination of care (as documented) and eafx-sf-icml counseling of patient and/or family. Dictated By: Zenobia Parker APRN DD/ 1058 Signed By: <Electronically signed by ANTOINETTE Parker> 06/02/22 [address] [facility] Work Phone: 1(980) 121-371811-21-2022 Progress note Author Zenobia Parker [facility] June 02, 2022 11:05am Note Date/Time June 02, 2022 11:01am [facility] [place] [address] Hem/Onc Follow Up Note - OP Signed Patient: Theresa Luu MR#: [id number] : 1945 Acct:[id number] Age/Sex: 76 / F Type: REG RCR [...] leg melanoma removed by Dr. Trammell at [facility] in November 162020 with sentinel node biopsy [...] and has CT scans scheduled for at [facility]. She is doing well, no major medical [...] 10 point review of systems is negative. [facility] - Medical History Medical History: Medical History [...] for coordination of care (as documented) and cjuc-al-porj counseling of patient and/or family. Dictated By: Zenobia Parker APRN DD/ 1058 Signed By: <Electronically signed by ANTOINETTE Parker> 06/02/22 [address] [facility] Work Phone: [phone] 197-448810-21-2022 Progress note Author Sly Benson [facility] May 02, 2022 4:01pm Note Date/Time May 02, 2022 3 :52pm [facility] [place] [address] Hem/Onc Follow Up Note - OP Signed Patient: Theresa Luu MR#: [id number] : 1945 Acct:[id number] Age/Sex: 76 / F Type: REG RCR [...] leg melanoma removed by Dr. Trammell at [facility] in November 162020 with sentinel node biopsy [...] and has CT scans scheduled for at [facility]. She is doing well, no major medical [...] for coordination of care (as documented) and boba-lr-csqo counseling of patient and/or family. [facility] - Medical History Medical History: Medical History [...] by Sly Benson II, DO> 05/02/22 [address] [facility] Work Phone: 1([phone] 313-700610-21-2022 Progress note Author Sly Benson [facility] May 02, 2022 4:01pm Note Date/Time May 02, 2022 3 :52pm [facility] [place] [address] Hem/Onc Follow Up Note - OP Signed Patient: Theresa Luu MR#: [id number] : 1945 Acct:[id number] Age/Sex: 76 / F Type: REG RCR [...] leg melanoma removed by Dr. Trammell at [facility] in November 162020 with sentinel node biopsy [...] and has CT scans scheduled for at [facility]. She is doing well, no major medical [...] for coordination of care (as documented) and otic-cc-upvr counseling of patient and/or family. [facility] - Medical History Medical History: Medical History [...] signed by Sly Benson II, DO> 05/02/22 [address] [facility] Work Phone: 1([phone]) 963-488810-15-2022 Progress note Author Sly Benson [facility] April 26, 2022 11:51am Note Date/Time April 21, 2022 9 :31am [place] [address] Hem/Onc Follow Up Note - OP Signed Patient: Theresa Luu MR#: [id number] : 1945 Acct:[id number] Age/Sex: 76 / F Type: REG RCR [...] leg melanoma removed by Dr. Trammell at [facility] in November 162020 with sentinel node biopsy [...] and has CT scans scheduled for at [facility]. She is doing well, no major medical [...] for coordination of care (as documented) and fkme-ii-ytlv counseling of patient and/or family. [facility] - Medical History Medical History: Medical History [...] DAILY 10/04/21 [History Confirmed 04/21/22] Dictated By: lSy Benson II, DO DD/ 8 Signed By: <Electronically signed by Sly Benson II, DO> 04/26/22 [address] [facility] Work Phone: 1([phone]) 965-489010-15-2022 Progress note Author Sly Benson [facility] April 26, 2022 11:51am Note Date/Time April 21, 2022 9 :31am [place] [address] Hem/Onc Follow Up Note - OP Signed Patient: Theresa Luu MR#: [id number] : 1945 Acct:[id number] Age/Sex: 76 / F Type: REG RCR [...] doses per trial Cornelius et neal [place] 2018 Repeat imaging in September 2021 showed [...] leg melanoma removed by Dr. Trammell at [facility] in November 162020 with sentinel node biopsy [...] and has CT scans scheduled for at [facility]. She is doing well, no major medical [...] for coordination of care (as documented) and bkbq-ep-pxbq counseling of patient and/or family. [facility] - Medical History Medical History: Medical History [...] by Sly Benson II, DO> 04/26/22 [address] [facility] Work Phone: [phone]) 750-894804-25-2022 Progress note Author Sly Benson [facility] November 04, 2021 7:49pm Note Date/Time October 25, 2021 9:5 8am [facility] [place] [address] Hem/Onc Follow Up Note - OP Signed Patient: Theresa Luu MR#: [id number] : 1945 Acct:[id number] Age/Sex: 76 / F Type: REG RCR [...] for a 3 week follow up for melandominic to review CTscans done 10/10/2021. There is [...] leg melanoma removed by Dr. Trammell at [facility] in November 162020 with sentinel node biopsy [...] and has CT scans scheduled for at [facility]. She is doing well, no major medical [...] for coordination of care (as documented) and ektj-tc-wvrv counseling of patient and/or family. [facility] - Medical History Medical History: Medical History [...] Dictated By: Sly Benson II, DO DD/ 5 Signed By: <Electronically signed by Sly Benson II, DO> 11/04/211948 [facility] Work Phone: 1(711) 370-179004-25-2022 Progress note Author Sly Benson [facility] November 04, 2021 7:49pm Note Date/Time October 25, 2021 9:5 8am [facility] [place] [address] Hem/Onc Follow Up Note - OP Signed Patient: Theresa Luu MR#: [id number] : 1945 Acct:[id number] Age/Sex: 76 / F Type: REG RCR Copies to: Yoni DO Alex Brown MD~ Date of Service: 10/25/2021 Time of [...] leg melanoma removed by Dr. Trammell at [facility] in November 162020 with sentinel node biopsy [...] and has CT scans scheduled for at [facility]. She is doing well, no major medical [...] for coordination of care (as documented) and gaud-dz-nnth counseling of patient and/or family. [facility] - Medical History Medical History: Medical History [...] signed by Sly Benson II, DO> 11/04/211948 [facility] Work Phone: 1([phone]) 675-253903-28-2022 Progress note Author Sly Benson [facility] October 07, 2021 8:58am Note Date/Time October 07, 2021 8:2 8am [facility] [place] [address] Hem/Onc Follow Up Note - OP Signed Patient: Theresa Luu MR#: [id number] : 1945 Acct:[id number] Age/Sex: 76 / F Type: REG RCR [...] leg melanoma removed by Dr. Trammell at [facility] in November 162020 with sentinel node biopsy [...] and has CT scans scheduled for at [facility]. She is doing well, no major medical [...] for coordination of care (as documented) and zsfi-bc-ddby counseling of patient and/or family. [facility] - Medical History Medical History: Medical History [...] signed by Sly Benson II, DO> 10/07/21 08 [facility] Work Phone: 1(842) [phone] Progress note Author Sly Benson [facility] October 07, 2021 8:58am Note Date/Time October 07, 2021 8:2 8am [facility] at [address] [address] Hem/Onc Follow Up Note - OP Signed Patient: Theresa Luu MR#: [id number] : 1945 Acct:[id number] Age/Sex: 76 / F Type: REG RCR Copies to: Yoni Muller,DO Alex Trammell MD~ Date of Service: 10/07/2021 Time of [...] leg melanoma removed by Dr. Trammell at [facility] in November 162020 with sentinel node biopsy [...] and has CT scans scheduled for at [facility]. She is doing well, no major medical [...] for coordination of care (as documented) and vmho-oj-rjhi counseling of patient and/or family. [facility] - Medical History Medical History: Medical History [...] by Sly Benson II, DO> 10/07/21 [address] [facility] Work Phone: [phone]) [phone] NotePROCEDURE DETAILS Preoperative Diagnosis: Melanoma of lower limb, C43.70 Postoperative Diagnosis: left lower leg me\lanoma Surgeon: Alex Trammell Resident/Fellow/Other Project Facilitator: Bambi Ray Muhammad Procedure: 1. WIDE LOCAL EXCISION MALIGNANT MELANOMA OF LEFT LOWER LEG WITH 2CM MARGINS 2. LEFT INGUINAL SENTINEL LYMPH NODE BIOPSY 3. INTEGRA GRAFT PLACEMENT (6X7CM WOUND) 4. VAC VIA PLACEMENT Anesthesia: Denny, Endrit Estimated Blood Loss: 20ml Findings: Exophytic left [...] Aguilar MD Furlong, Dennis G, MD - [phone] [] Signatures/Attestation: Note Completion: Attending AttestationI was present for the entire procedure Electronic Signatures: Alex Trammell) (Signed 16-Nov-2020 14:13) Authored: Post-Operative Note, Chart Review, Note Completion Last Updated: 16-Nov-2020 14:13 by Alex Trammell)[facility] 11-16-2020 NoteHistory & Physical Reviewed: I have [...] the note. I personally evaluated the patient [id number] Attending Provider Inpatient Certification StatementObservation patient/other outpatient visits Electronic Signatures: Alex Trammell) (Signed 16-Nov-2020 13:12) Authored: Note Completion Co-Signer: History & Physical Reviewed, ERAS, Consent, Note Completion Ct Tinsley (Resident)) (Signed 16-Nov-2020 10:36) Authored: History & Physical Reviewed, ERAS, Consent, Note Completion Last Updated: 16-Nov-2020 13:12 by Alex Trammell)[facility] 10-16-2020 NoteAccession #: [id number] Pathologist: SURAJ MELGAR MD Date of Procedure: 10/16/2020 Date Received: 10/16/2020 Submitting Physician: ALEX TRAMMELL MD Location: [facility] Copy To/Referring/Attending: QUENTIN FITZPATRICK DO FINAL DIAGNOSIS 4 SLIDES, [facility], #[id number] [A] (BX: 09/28/2020) SKIN, LEFT DISTAL PRETIBIAL [...] REPORT A. 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 Slides received on specimen A only. Slide/Block Description 4 SLIDES, [id number] A. Keep Slides: N Slides Returned: N Personal [facility]:Performed By: #### D #### [id number] History general Narrative - Reported* Type Description Date Medical History breast cancer (1996) Medical History HTN Medical History hyperlipidemia Medical History basal cell carcinoma upper back (September 2020) Medical History metastatic malignant melanoma [employer] Other 04-20-2014 History of Present illness Narrative* [...] in a prior mole. Thepatient moved from [place] 8 years ago and has not established [...] She reports that shehas not seen her radio equipment repairer since prior to the cancer treatment. As [...] the knee to the foot. 1+ edema. UQ-Ppgqlth-Blngq Main Work Phone: [phone]) 738-829103-14-2014 History of Present illness Narrative* Ms. Luu [...] in a prior mole. Thepatient moved from [place] 8 years ago and has not established [...] She reports that shehas not seen her radio equipment repairer since prior to the cancer treatment. As [...] the knee to the foot. 1+ edema. [facility] Work Phone: 1([phone]) 689-116107-15-2013 History of Present illness Narrative* Ms. Luu [...] in a prior mole. Thepatient moved from [place] 8 years ago and has not established [...] the knee to the foot. 1+ edema. NA-Iudkoio-Hmhvsrpc 150 Work Phone: [phone]) 864-923906-16-2013 History of Present illness Narrative* Ms. Luu [...] in a prior mole. Thepatient moved from [place] 8 years ago and has not established [...] the knee to the foot. 2+ edema. JN-Gmhncnj-Ysxwjxkw 150 Work Phone: [phone] History of Present illness Narrative* Ms. Luu [...] in a prior mole. Thepatient moved from [place] 8 years ago and has not established [...] the knee to the foot. 2+ edema. [facility] Work Phone: evaluation noteN/ADept. of Dermatology Evaluation note* Diagnosis Onset Date Resolution Status Melanoma acute [facility] Work Phone: Evaluation noteNo assessment information available [facility] Work Phone: Evaluation note* Diagnosis Onset Date Resolution Status Melanoma acute Inguinal adenopathy acute [facility] Work Phone: Evaluation note* Diagnosis Onset Date Resolution Status Inguinal adenopathy acute Melanoma acute [facility] Work Phone: Evaluation note* Diagnosis Onset Date Resolution Status Encounter for antineoplastic immunotherapy acute Inguinal adenopathy acute Melanoma acute [facility] Work Phone: Evaluation note* Diagnosis Onset Date Resolution Status Melanoma acute Encounter for antineoplastic immunotherapy acute Inguinal adenopathy acute Melanoma acute [facility] Work Phone: Evaluation note* Diagnosis Essential (primary) hypertension Unspecified essential hypertension documented [facility] this encounter [facility] Diagnosis Benign hypertension with chronic kidney disease, stage III ([facility])- Primary Hyperlipidemia, unspecified hyperlipidemia type Malignant melanoma of left lower leg ([facility]-H[facility]) Class 2 severe obesity due to excess calories with serious comorbidity and body mass index (BMI) of 35.0 to 35.9 in adult documented in this encounter [facility] Discharge instructionsAmbulatory Orders* Chemotherapy Class Time Frame: 1 Day, Location: Determined By Patient [facility] Work Phone: Hospital Discharge instructionsAmbulatory Orders* Oncology Histology Time Frame: 1 Day, Location: Determined By Patient [facility] Work Phone: InstructionsNot on filedocumented in this encounter [facility]ructionsNot on filedocumented in this encounter [facility] SystemInstructionsNot on filedocumented in this encounter [facility] System[facility] note Author Sly Benson [facility] May 02, 2022 4:01pm Note Date/Time May 02, 2022 3 :52pm [facility] [place] [address] Hem/Onc Follow Up Note - OP Signed Patient: Theresa Luu MR#: [id number] : 1945 Acct:[id number] Age/Sex: 76 / F Type: REG RCR [...] leg melanoma removed by Dr. Trammell at [facility] in November 162020 with sentinel node biopsy [...] and has CT scans scheduled for at [facility]. She is doing well, no major medical [...] for coordination of care (as documented) and tsmu-mw-rpml counseling of patient and/or family. [facility] - Medical History Medical History: Medical History [...] by Sly Benson II, DO> 05/02/22 1601 [facility] Work Phone: Progress note Author Zenobia Josesanju [facility] June 02, 2022 11:05am Note Date/Time June 02, 2022 11:01am [facility] [place] [address] Hem/Onc Follow Up Note - OP Signed Patient: Theresa Luu MR#: [id number] : 1945 Acct:[id number] Age/Sex: 76 / F Type: REG RCR [...] leg melanoma removed by Dr. Trammell at [facility] in November 162020 with sentinel node biopsy [...] and has CT scans scheduled for at [facility]. She is doing well, no major medical [...] 10 point review of systems is negative. [facility] - Medical History Medical History: Medical History (Last Reviewed 04/28/22 @ 08:09 by Bonnie Mistry RN) Basal cell carcinoma left mid upper back Cellulitis Essential hypertension Hyperlipidemia Malignant melanoma left distal lower anterior leg Malignant tumor of breast Skin graft disorder - Surgical History Surgical History: Surgical History (Last Reviewed 04/28/22 @ 08:09 by Bonnie Mistry, CUBA) H/O left mastectomy - Family History Family [...] for coordination of care (as documented) and qnls-yf-meaz counseling of patient and/or family. Dictated By: Zenobia Parker APRN DD/ 1058 Signed By: <Electronically signed by ANTOINETTE Parker> 06/02/22 1109 [facility] Work Phone: Progress note Author Sly Benson [facility] June 23, 2022 11:22am Note Date/Time June 23, 2022 11:18am [facility] [place] [id number] Hem/Onc Follow Up Note - OP Signed Patient: Theresa Luu MR#: [id number] : 1945 Acct:[id number] Age/Sex: 76 / F Type: REG RCR [...] leg melanoma removed by Dr. Trammell at [facility] in November 162020 with sentinel node biopsy [...] and has CT scans scheduled for at [facility]. She is doing well, no major medical [...] maybe 3 days. worse after hot showers. [employer] really works for this. - Physical Exam [...] for coordination of care (as documented) and huya-fr-xqxj counseling of patient and/or family. [facility] - Medical History Medical History: Medical History [...] by Sly Benson II, DO> 06/23/22 1122 [facility] Work Phone: Progress note Author Sly Benson [facility] August 11, 2022 11:03am Note Date/Time August 11, 2022 1 0:48am [place] [address] Hem/Onc Follow Up Note - OP Signed Patient: Theresa Luu MR#: [id number] : 1945 Acct:[id number] Age/Sex: 76 / F Type: REG RCR [...] referred for melanoma primary patient of Yoni Yohana, pastmedical history includes essential hypertension, basal cell carcinoma on her upper back in September 2020hyperlipidemia, malignant tumor of the breast in September 1996 on the left side she had a mastectomy with no chemotherapy or radiation. Outpatient medications include hydrochlorothiazide and simvastatin. She initially had a left lower leg melanoma removed by Dr. Trammell at [facility] in November 162020 with sentinel node biopsy [...] and has CT scans scheduled for at [facility]. She is doing well, no major medical [...] for coordination of care (as documented) and pola-ly-fwdt counseling of patient and/or family. [facility] - Medical History Medical History: Medical History [...] % (Auto) 58.6, Lymph % (Auto) 29.6, Sargent % (Auto) 9.0, Eos % (Auto) 2.1, Baso % (Auto) 0.7, Nucleat RBC Rel Count 0.1, Neut # (Auto) 4.4, Lymph # (Auto) 2.2, Sargent # (Auto) 0.7, Eos # (Auto) 0.2, [...] by Sly Benson II, DO> 08/11/22 1103 [facility] Work Phone: Progress note Author Sly Benson [facility] September 08, 2022 10:18am Note Date/Time September 08, 2022 10:08am [facility] [place] [address] Hem/Onc Follow Up Note - OP Signed Patient: Theresa Luu MR#: [id number] : 1945 Acct:[id number] Age/Sex: 76 / F Type: REG RCR [...] leg melanoma removed by Dr. Trammell at [facility] in November 162020 with sentinel node biopsy [...] and has CT scans scheduled for at [facility]. She is doing well, no major medical [...] maybe 3 days. worse after hot showers. [employer] really works for this. 08/11/22 She is [...] for coordination of care (as documented) and ahbr-gi-btyq counseling of patient and/or family. [facility] - Medical History Medical History: Medical History [...] by Sly Benson II, DO> 09/08/22 1018 [facility] Work Phone: Progress note Author Senia Montez [facility] December 30, 2022 11:06am Note Date/Time December 30, 2022 8:35 am [facility] [place] [address] Hem/Onc Follow Up Note - OP Signed Patient: Theresa Luu MR#: [id number] : 1945 Acct:[id number] Age/Sex: 77 / F Type: REG RCR Copies to: Yoni Larson Mortezahelena,DO Alex Benson, II, DO~ Date of Service: 12/30/2022 Time [...] leg melanoma removed by Dr. Trammell at [facility] in November 162020 with sentinel node biopsy [...] and has CT scans scheduled for at [facility]. She is doing well, no major medical [...] for coordination of care (as documented) and pxsr-qe-nquh counseling of patient and/or family. [facility] - Medical History Medical History: Medical History [...] <Electronically signed by ANTOINETTE Montez> 12/30/22 [facility] Work Phone: Progress note Author Sly Benson [facility] March 06, 2023 2:40pm Note Date/Time March 06, 2023 2: 37pm [facility] at [address] [address] Hem/Onc Follow Up Note - OP Signed Patient: Theresa Luu MR#: [id number] : 1945 Acct:[id number] Age/Sex: 77 / F Type: REG RCR Copies to: Yoni Muller,DO Alex Trammell MD~ Date of Service: 03/06/2023 Time of [...] leg melanoma removed by Dr. Trammell at [facility] in November 162020 with sentinel node biopsy [...] and has CT scans scheduled for at [facility]. She is doing well, no major medical [...] for coordination of care (as documented) and eyen-ns-bqzq counseling of patient and/or family. [facility] - Medical History Medical History: Medical History [...] % (Auto) 66.0, Lymph % (Auto) 23.1, Sargent % (Auto) 8.4, Eos % (Auto) 1.7, Baso % (Auto) 0.8, Nucleat RBC Rel Count 0.0, Neut # (Auto) 4.1, Lymph # (Auto) 1.4, Sargent # (Auto) 0.5, Eos # (Auto) 0.1, [...] by Sly Benson II, DO> 03/06/23 1440 [facility] Work Phone: Progress note Author Sly Benson [facility] August 07, 2023 11:49am Note Date/Time August 07, 2023 1 1:21am [facility] [place] [address] Cancer Center Note Signed Patient: Theresa Luu MR#: [id number] : 1945 Acct:[id number] Age/Sex: 77 / F Type: REG AMB [...] Indication No Indication Cycle Number Last Admin 13 of 18 Cycle Day Next Admin No Active Chemotherapy [...] leg melanoma removed by Dr. Trammell at [facility] in November 162020 with sentinel node biopsy [...] and has CT scans scheduled for at [facility]. She is doing well, no major medical [...] maybe 3 days. worse after hot showers. [employer] really works for this. 08/11/22 She is [...] up with labs and imaging for review. [facility] Medical History Medical History Malignant tumor of [...] <Electronically signed by Sly Benson II, DO> 08/07/23 1149 [facility] Work Phone: Reason for referral (narrative)* [...] section and content) DATE CREATED AUTHOR 11/07/2020 [facility] DATE CREATED AUTHOR AUTHOR'S ORGANIZ ATION 12/04/2020 [facility] DATE CREATED AUTHOR AUTHOR'S ORGANIZ ATION 12/10/2020 [facility] DATE CREATED AUTHOR AUTHOR'S ORGANIZ ATION 05/12/2021 [facility] DATE CREATED AUTHOR AUTHOR'S ORGANIZ ATION 09/23/2021 [facility] DATE CREATED AUTHOR AUTHOR'S ORGANIZ ATION 09/28/2021 [facility] DATE CREATED AUTHOR AUTHOR'S ORGANIZ ATION 10/06/2022 [facility] DATE CREATED AUTHOR AUTHOR'S ORGANIZ ATION 09/19/2023 [facility] Care Teams (unrecognized sec tion and content) Team Status: Active Member Role Status Dates Yoni Muller DO Primary Care Provider Active Team Status: Inactive Member Role Status Dates Yoni Muller DO Primary Care Provider Active Start: August 07, 2023 End: August 07, 2023 Sly Benson II, DO Attending Provider Active Start: August 07, 2023 End: August 07, 2023 Team Status: Active Member Role Status Dates Sly Benson II, DO Attending Provider Active Start: August 07, 2023 Yoni Muller DO Primary Care Provider Active Start: August [...] Member Role Status Dates Yoni Muller , Primary Care Provider Active Alex Trammell MD Attending Provider Active Team Status: Inactive Member Role Status Dates Yoni Muller , Primary Care Provider Active Sly Benson II, DO Attending Provider Active Managing Consultant Relationship Specialty Start Date End Date Yoni Muller DO [address], [place] [address] PCP - General Family Medicine 04/21/22 Managing Consultant Relationship Specialty Start Date End Date Yoni Muller DO [address] [place] [address] PCP - General Family Medicine 04/21/22 Managing Consultant Relationship Specialty Start Date End Date Yoni Muller DO [address] [place] [address] PCP - General Family Medicine 04/21/22 Goals (unrecognized section and content) Goals may [...] may be documented in an alternate sectionNo InformationNot on filedocumented as of this encounterNot on filedocumented as of this encounterNot on filedocumented as of this encounter REASON FOR VISIT (unrecogniz ed section and content) Reason Comments Med Refill Reason Comments Hypertension FOR RECORDS PERTAINING TO PATIENTS WHO ARE [...] BE BASED ON THE PRIMARY CLINICAL RECORDS. [facility]. provides no warranty or guarantee of the accuracy or completeness of information in this document.
--- NOTE | 2023-09-23 09:22 | XR_ITS ---
The [address] [address] Patient Name: VIKKI LUU MRN: [id number] date: 1945 Sex: F Assigned Patient Location: ER Current Patient Location: ER Accession/Order Number: [id number] Exam Date: 09/23/2023 09:40 Report Date: 09/23/2023 10:28 At the request of: CATRACHITO LONDON Procedure: XR hand LT min 3V PROCEDURE: XR hand LT min 3V COMPARISON: None. HISTORY: Left thumb pain, hyperextended FINDINGS: BONES:No acute fracture or dislocation. Moderate degenerative changes most significant at the first carpometacarpal and medial carpus. SOFT TISSUES:Negative. No visible soft tissue swelling. EFFUSION:None visible. OTHER: Negative. XR/XR hand LT min 3V IMPRESSION: Degenerative changes, no acute fracture Electronically authenticated by: PAWAN VENTURA Date: 09/23/2023 10:28
--- NOTE | 2023-09-23 09:23 | ED.EXTPRO1 ---
HPI - Extremity Problem General Chief complaint: Extremity Problem, Nontraumatic Stated complaint: UPPER EXTREMITY PAIN Time Seen by Provider: 09/23/23 09:08 Source: patient and friend Mode of arrival: walk-in Limitations: no limitations History of Present Illness HPI Narrative: 77-year-old female presents for left thumb pain. She was bent over holding onto a counter this morning to pick something up and she describes a hyperextension type injury to the thumb when she did not let go of the counter. The other fingers do not hurt. It hurts more to move it. Related Data Home Medications Medication Instructions Recorded Confirmed hydrochlorothiazide 25 mg tablet mg 09/23/23 potassium chloride 10 mEq meq PO 09/23/23 tablet,extended release(part/cryst) rosuvastatin 10 mg tablet mg 09/23/23 Allergies Allergy/AdvReac Type Severity Reaction Status Date / Time Penicillins AdvReac Mild Nausea Verified 09/23/23 09:14 Review of Systems ROS Narrative A ten point review of systems is negative except as noted above. PFSH PFSH Social History Smoking status: Never smoker Exam Narrative Exam Narrative: Nurses note and vital signs reviewed and patient is not hypoxic. General: The patient appears well and in no apparent distress. Patient is resting comfortably on cart. Skin: Warm, dry, no pallor noted. There is no rash noted. Head: Normocephalic, atraumatic Eye: Normal conjunctiva, no drainage Ears, Nose, Mouth, and Throat: oral mucosa is moist. Nares patent. Cardiovascular: Regular Rate and Rhythm Respiratory: Patient is in no distress, no accessory muscle use, lungs are clear to auscultation, no wheezing, rales or rhonchi Back: non-tender GI: Nontender Musculoskeletal: Left thumb has no deformity and has good range of motion. The wrist is nontender and her other fingers have full range of motion. Range of motion of the thumb seems to cause discomfort. Neurological: A&O, normal speech Psychiatric: Cooperative Constitutional Vital Signs, click to edit/add: Last Vital Signs Temp 97.4 F L 09/23/23 09:14 Pulse 92 H 09/23/23 09:14 Resp 15 09/23/23 09:14 BP 141/63 09/23/23 09:14 Pulse Ox 96 09/23/23 09:14 O2 Del Method Room Air 09/23/23 09:14 Course Vital Signs Vital signs: Vital Signs Temperature 97.4 F L 09/23/23 09:14 Pulse Rate 92 H 09/23/23 09:14 Respiratory Rate 15 09/23/23 09:14 Blood Pressure 141/63 09/23/23 09:14 Pulse Oximetry 96 09/23/23 09:14 Oxygen Delivery Method Room Air 09/23/23 09:14 Temperature 97.4 F L 09/23/23 09:14 Pulse Rate 92 H 09/23/23 09:14 Respiratory Rate 15 09/23/23 09:14 Blood Pressure 141/63 09/23/23 09:14 Pulse Oximetry 96 09/23/23 09:14 Oxygen Delivery Method Room Air 09/23/23 09:14 MDM - Extremity (Nontraumatic) MDM Narrative Medical decision making narrative: X-ray is negative per radiologist. Splint applied, application checked by me and found to be appropriate, she is neurovascularly intact. Treatment diagnosis and follow-up were discussed with the patient. Differential Diagnosis Differential diagnosis: Likely other (Thumb fracture, thumb sprain) Discharge Plan Discharge Stand Alone Forms: Portal Instructions Chief Complaint: Extremity Problem, Nontraumatic Clinical Impression: Left thumb sprain Patient Disposition: Home, Self-Care Time of Disposition Decision: 10:34 Condition: Good Mode of Transportation: Private Vehicle Prescriptions / Home Meds: No Action hydrochlorothiazide 25 mg tablet rosuvastatin 10 mg tablet potassium chloride 10 mEq tablet,ER particles/crystals PO Instructions: Finger Sprain (ED) Referrals: [facility] [Primary Care Provider] - 1 week
== END 2023-09-23 10:48 | disposition home or self-care (01) ==
PROVIDERS: Emergency Provider Emergency Medicine; PCP Family Medicine
DX: S63.602A Unspecified sprain of left thumb, initial encounter (principal); X50.9XXA Other and unspecified overexertion or strenuous movements or postures, initial encounter; Z79.899 Other long term (current) drug therapy
CPT/HCPCS: 73130; 99283

== ENCOUNTER 2023-09-30 08:38 | Outpatient (OUT) | payer MEDICARE, SELFPAY ==
[2023-09-30 09:16] LABS: Basophils Percent Auto 0.5 % (0.2-2.0); Eosinophils Absolute Auto 0.1 10^3/uL (0.0-0.7); Eosinophils Percent Auto 1.7 % (0.9-7.0); Hematocrit 42.4 % (36.0-48.0); Hemoglobin 13.9 g/dL (12.0-16.0); Immature Granulocytes Abs Auto 0.02 10^3/uL (0.00-0.03); Immature Granulocytes Pct Auto 0.3 % (0.0-0.5); Lymphocytes Absolute Auto 1.4 10^3/uL (1.2-3.8); Lymphocytes Percent Auto 23.4 % (20.5-60.0); Mean Corpuscular HGB Conc 32.8 g/dL (29.9-35.2); Mean Corpuscular Hemoglobin 29.8 pg (26.7-34.0); Monocytes Absolute Auto 0.5 10^3/uL (0.3-0.8); Monocytes Percent Auto 7.8 % (1.7-12.0); Neutrophils Absolute Auto 3.9 10^3/uL (1.4-6.5); Neutrophils Percent Auto 66.3 % (43.0-75.0); Platelet Count 207 10^3/uL (150-450); Red Blood Count 4.66 10^6/uL (4.20-5.40); Red Cell Distribution Width 12.9 % (11.0-15.0); White Blood Count 5.9 10^3/uL (4.0-11.0)
[2023-09-30 09:57] LABS: Alanine Aminotransferase 50 U/L (14-59); Albumin Globulin Ratio 0.9; Albumin Level 3.3 g/dL (3.4-5.0); Alkaline Phosphatase 133 U/L (46-116); Anion Gap 11.9; Aspartate Amino Transferase 33 U/L (15-37); BUN Creatinine Ratio 16.7; Bilirubin Total 0.6 mg/dL (0.2-1.0); Calcium 9.2 mg/dL (8.5-10.1); Carbon Dioxide 30.5 mmol/L (21.0-32.0); Chloride 102 mmol/L (98-107); Estimated GFR (African America >60 (>=60); Estimated GFR (Non-African Ame 57 (>=60); Globulin 3.7 g/dL; Glucose 127 mg/dL (74-106); Lactate Dehydrogenase 178 U/L (81-234); Potassium 3.4 mmol/L (3.5-5.1); Sodium 141 mmol/L (136-145); Thyroid Stimulating Hormone 2.475 uIU/mL (0.358-3.740)
[2023-09-30 11:01] LABS: Free T4 1.17 ng/dL (0.76-1.46)
[2023-10-01 13:08] LABS: ACTH, Plasma 18.2 pg/mL (7.2-63.3)
== END 2023-09-30 08:39 | disposition home or self-care (01) ==
LOC: LAB 08:42
PROVIDERS: PCP Family Medicine; Visit Provider Internal Medicine
DX: C43.9 Malignant melanoma of skin, unspecified (principal)
CPT/HCPCS: 36415; 80053; 82024; 83615; 84439; 84443; 85025

== ENCOUNTER 2023-10-01 08:29 | Outpatient (OUT) | payer MEDICARE, SELFPAY ==
--- OUTSIDE RECORDS SUMMARY | 2023-10-01 08:49 | XMS_ITS | CCD ---
Author Organization [facility] Care Team Providers Care Inventory Control Coordinator Name Role Phone Quentin Fitzpatrick Unavailable Unavailable Yoni Muller Unavailable Unavailable Unavailable Quentin Fitzpatrick Unavailable Unavailable DO Sly Benson II Attending Provider Yohana, DO Yoni Primary Care Provider MD Alex Trammell Referring Provider DO Sly Benson II Attending Provider Yohana, DO Yoni Primary Care Provider MD Alex Trammell Referring Provider MD Alex Trammell Attending Provider Yohana, DO Yoni Primary Care Provider DO Sly Benson II Attending Provider [phone] MD Alex Trammell Referring Provider Yohana, DO Yoni Primary Care Provider [phone] MD Alex Trammell Attending Provider [phone] DO Sly Benson II Attending Provider MD Alex Trammell Referring Provider [phone] DO Sly Benson II Attending Provider [phone] MD Alex Trammell Referring Provider Yohana, Yoni Primary Care Provider MD Alex Trammell Attending Provider Kelley II, DO Sly Jeffrey Attending Provider MD Alex Trammell Referring Provider [phone] MD Alex Trammell Referring Provider MD Alex Trammell Referring Provider Kelley II, DO Sly Jeffrey Attending Provider Furlong, DO [place] Primary Care Provider MD Alex Trammell Referring Provider Kelley II, DO Sly Jeffrey Attending Provider [phone] Furlong, DO [place] Primary Care Provider MD Alex Trammell Referring Provider Kelley II, DO Sly Jeffrey Attending Provider Furlong, DO [place] Primary Care Provider MD Alex Trammell Referring Provider HERLINDA BENSONOTHY J Admitting Unavailable FURLONG, DR YONI Larson Primary Care Unavailable ADAMOWICZ, SLY J Consulting Unavailable ADAMOWICZ, SLY J Attending Unavailable FURLONG, [...] Admitting Unavailable ADAMOWICZ, SLY J Consulting Unavailable DR YONI MULLER Primary Care Unavailable JASONICZ, SLY Jeffrey Attending Unavailable ADAMOWICZ, SLY J Admitting Unavailable ADAMOWICZ, SLY J Consulting Unavailable ADAMOWICZ, SLY J Attending Unavailable ADAMOWICZ, SLY J Admitting Unavailable ADAMOWICZ, SLY J Consulting Unavailable Adamowicz II, DO Sly J Attending Provider Mortezaedmar, DO [place] [facility] Care Provider MD Alex Trammell Referring Provider Kelley II, DO Sly Jeffrey Attending Provider [facility] [place] [facility] Care Provider MD Alex Trammell Referring Provider [phone] ReginoKimber pitts Unavailable Kelley II, DO Sly Jeffrey Attending Provider [facility], [facility] [place] [facility] Care Provider MD Alex Trammell Referring Provider Kelley II, DO Sly Jeffrey Attending Provider Yohana, DO [place] [facility] Provider [phone] MD Alex Trammell Referring Provider Kelley II, DO Sly Jeffrey Attending Provider [facility], [facility] [place] [facility] Provider MD Alex Trammell Referring Provider MortezaYoni hyatt DO Primary Care Provider Kelley II, Sly J Admitting Unavaila ble Kelley II, Sly Jeffrey Attending Unavaila Yoni Anaya [facility] Unavailable Adamowkinsey II, Sly J Admitting Unavaila ble Kelley II, Sly Jeffrey Attending Unavaila Alex Baumann Referring Unavailab le Yoni Muller [facility] Unavailable Allergies Allergy Classification Reported Allergen(s) Allergy Type Date of Onset Reaction(s) Facility (3 sources) No Alert Propensity to adverse reactions to drug 1 [facility] (2 sources) Penicillin Drug Allergy Unknown [facility] Repository (3 sources) Penicillins Propensity to adverse reactions to drug 2 [facility] source) Penicillins Drug allergy (disorder) 4 [facility] Repository Medications Current Medications Medication Drug [...] PO As Directed August 29, 2022 12:00am February 27th, 2023 9:52am Take 4mg (2 tablets) in the [...] changes Quantity: 1 Refills: 0 Ordered: 18-Dec-2020 Valeri PACE, Alex Start : 18-Dec-2020 Active mometasone furoate 1 [...] [Moles/Vol] 7 mmol/L 5 - 15 mmol/L [facility] Calcium [Mass/Vol] 9.5 mg/dL 8.5 - 10. 5 mg/dL [facility] Chloride [Moles/Vol] 101 mmol/L 98 - 10 9 mmol/L [facility] CO2 [Moles/Vol] 32 mmol/L 22 - 32 mmol/L [facility] Creatinine [Mass/Vol] 0.96 mg/dL 0.40 - 1.00 mg/dL [facility] Comment on above: METHOD TRACEABLE TO [facility] STANDARD eGFR (CKD-EPI)non-race dependent 61 - PINF [facility] Comment on above: Reported eGFR is based on the CKD-EPI 2020 equation that does not use a race coefficient. Glucose [Mass/Vol] 107 mg/dL High 65 - 99 mg/dL [facility] Interpretation and review of laboratory results Abnormal [facility] Potassium [Moles/Vol] 3.3 mmol/L Low 3.5 - 5.0 mmol/L [facility] Sodium [Moles/Vol] 140 mmol/L 134 - 146 mmol/L [facility] Urea nitrogen [Mass/Vol] 22 mg/dL 5 - 27 mg/dL [facility] CBC without diffon 4 Erythrocyte distribution width (RBC) [Ratio] 13.9 % 11.5 - 15.0 % [facility] Hematocrit (Bld) [Volume fraction] 39.4 % 35 - 47 % [facility] Hemoglobin (Bld) [Mass/Vol] 13.5 g/dL 11.7 - 15.5 g/dL [facility] MCH (RBC) [Entitic mass] 30.4 pg 27 - 34 pg [facility] MCHC (RBC) [Mass/Vol] 34.2 g/dL 32 - 3 6 g/dL [facility] MCV (RBC) [Entitic vol] 89 fL 80 - 100 fL [facility] Platelet mean volume (Bld) [Entitic vol] 7.9 fL 7 - 12 fL [facility] Platelets (Bld) [#/Vol] 202 10*3/uL [facility] RBC (Bld) [#/Vol] 4.43 10*6/uL [facility] WBC corrected for nucl RBC Auto (Bld) [#/Vol] 6.6 [facility] Lipid 1996 panelon Cholesterol [Mass/Vol] 154 mg/dL 150 - 200 mg/dL [facility] Cholesterol in HDL [Mass/Vol] 76 mg/dL 39 - PINF mg/dL [facility] Comment on above: HDL <40 mg/dL - High Risk HDL > or = 40mg/dL- Desirable HDL >60 mg/dL - Negative Risk Cholesterol in LDL [Mass/Vol] 52 mg/dL NINF - 130 mg/dL [facility] Comment on above: LDL <100 mg/dL - Desirable LDL >160 mg/dL - High Risk Cholesterol in VLDL [Mass/Vol] 26 mg/dL 0 - 30 mg/dL [facility] Cholesterol.total/Chol esterol in HDL [Mass ratio] 2.0 {ratio} 1.0 - 5.0 [facility] Triglyceride [Mass/Vol] 132 mg/dL 27 - 150 mg/dL [facility] Magnesiumon 09-15-2023 Magnesium [Mass/Vol] 1.9 mg/dL 1.8 - 2 .6 mg/dL [facility] No Panel Informationon 09-14 [facility] Parathyrin.intact [Mass/Vol] on 09-15-2023 [facility] Parathyroid Hormone, intacto n 09-15-2023 Parathyrin.intact [Mass/Vol] 36 pg/mL 12 - 88 pg/mL [facility] Phosphoruson 09-15-2023 Phosphate [Mass/Vol] 3.6 mg/dL 2.4 - 4 .9 mg/dL [facility] Uric acidon 09-15-2023 Urate [Mass/Vol] 5.4 mg/dL 2.6 - 7.2 mg/dL [facility] Vitamin D 25 hydroxyon 09-14 Vitamin D+Metabolites [Mass/Vol] 28.4 ng/mL Low 30 - 100 ng/mL [facility] Comment on above: Vitamin D status 25 [place] Vitamin D Deficiency <20 ng/mL Insufficiency 20-29 ng/mL Sufficiency 30-100 ng/mL Toxicity >100 ng/mL NOTE: A pediatric reference range has not been established by the bag loader machine operator of this kit. The [place] [employer] recommends a Vitamin D level of = or >20ng/mL in infants and children. Vitamin D+Metabolites [Mass/ Vol]on 09-15-2023 Interpretation and review of laboratory results Abnormal [facility] Complete Blood Count Auto Di ffon 08-07-2023 Basophils (Bld) [#/Vol] 0.0 10*3/uL Normal 0.0-0.2 [facility] Comment on above: Result Comment: PERF ORMED BY: [facility] [address] [place] [id number] PATHOLOGIST MALTSTER WAYLON SAUNDERS M.D. Performed By: #### C BC ####[place] [id number] [facility] Basophils/100 WBC (Bld) 0.5 % Normal . [facility] Comment on above: Performed By: #### C BC ####[address] [address] [facility] Eosinophils (Bld) [#/Vol] 0.0 10*3/uL Normal 0.0-0.45 [facility] Comment on above: Performed By: #### C BC ####[address] [address] [facility] Eosinophils/100 WBC (Bld) 0.1 % Normal . [facility] Comment on above: Performed By: #### C BC ####[place] [id number] [facility] Erythrocyte distribution width (RBC) [Ratio] 13.6 % Normal 11.9-15.3 [facility] Comment on above: Performed By: #### C BC ####[place] [id number] [facility] Hematocrit (Bld) [Volume fraction] 37.0 % Normal 34.0-46.4 [facility] Comment on above: Performed By: #### C BC ####[place] [id number] [facility] Hemoglobin (Bld) [Mass/Vol] 12.8 g/dL Normal 11.8-15.4 [facility] Comment on above: Performed By: #### C BC ####[address] Lymphocytes (Bld) [#/Vol] 1.1 10*3/uL Normal 1.00-4.8 [facility] Comment on above: Performed By: #### C BC ####[place] [id number] [facility] Lymphocytes/100 WBC (Bld) 13.9 % Normal . [facility] Comment on above: Performed By: #### C BC ####[place] [id number] [facility] MCH (RBC) [Entitic mass] 30.2 pg Normal 24.7-34.3 [facility] Comment on above: Performed By: #### C BC ####[place] [id number] [facility] MCV (RBC) [Entitic vol] 87.3 fL Normal 80-100 [facility] Comment on above: Performed By: #### C BC ####[place] [id number] [facility] Mean Corpuscular HGB Conc 34.6 g/dL Normal 32.0-35.0 [facility] Comment on above: Performed By: #### C BC ####[place] [id number] [facility] Monocytes (Bld) [#/Vol] 0.5 10*3/uL Normal 0.0-0.8 [facility] Comment on above: Performed By: #### C BC ####[place] [id number] [facility] Monocytes/100 WBC (Bld) 6.4 % Normal . [facility] Comment on above: Performed By: #### C BC ####[place] [id number] [facility] Neutrophils (Bld) [#/Vol] 6.0 10*3/uL Normal 1.8-7.7 [facility] Comment on above: Performed By: #### C BC ####[place] [id number] [facility] Neutrophils/100 WBC (Bld) 79.1 % Normal . [facility] Comment on above: Performed By: #### C BC ####[address] NRBC% 0.0 /100{WBC} Normal 0-0.5 [facility] Comment on above: Performed By: #### C BC ####[place] [id number] [facility] Platelet mean volume (Bld) [Entitic vol] 7.3 fL Normal 6.3-10.7 [facility] Comment on above: Performed By: #### C BC ####[place] [id number] [facility] Platelets (Bld) [#/Vol] 202 10*3/uL Normal 150-450 [facility] Comment on above: Performed By: #### C BC ####[place] [id number] [facility] RBC (Bld) [#/Vol] 4.24 10*6/uL Normal 3.60-5.00 [facility] Comment on above: Performed By: #### C BC ####[place] [id number] [facility] WBC (Bld) [#/Vol] 7.6 10*3/uL Normal 3.8-11.6 [facility] Comment on above: Performed By: #### C BC ####[address] [address] [place] Adrenocorticotropic Hormone PLon 08-06-[address] 21.1 pg/mL Normal 7.2-63.3 [facility] Comment on above: Result Comment: ACTH reference interval for samples collected between 7 and 10 AM. Performed at: [facility] [address] [id number] Under Baster: Coleman Lacy PhD, Phone: [phone] PERFORMED BY: [place] [address] PATHOLOGIST MALTSTER WAYLON SAUNDERS M.D. Performed By: #### A CT #### [facility] , Alanine aminotransferase [En zymatic activity/volume] in Serum or PlasmaOrdered By: Sly Benson on 08-06-2023 ALT [Catalytic activity/Vol] 23 U/L 7-52 [facility] Albumin [Mass/volume] in Ser um or Plasma by Bromocresol green (BCG) dye binding methoOrdered By: Sly Benson on 08-06-2023 Albumin BCG dye [Mass/Vol] 4.0 g/dL 3.5-5.7 [facility] Alkaline phosphatase [Enzyma tic activity/volume] in Serum or PlasmaOrdered By: Sly Benson on 08-06-2023 ALP [Catalytic activity/Vol] 95 U/L 34-104 [facility] Aspartate aminotransferase [ Enzymatic activity/volume] in Serum or PlasmaOrdered By: Sly Benson on 08-06-2023 AST [Catalytic activity/Vol] 29 U/L 13-39 [facility] Bilirubin.total [Mass/volume ] in Serum or PlasmaOrdered By: Sly Benson on 08-06-2023 Bilirubin [Mass/Vol] 0.6 mg/dL 0.3-1.[address] [facility] [address] abdomen pelvis w conon CT abdomen pelvis w con [facility] [address] [place] [address] [place] [address] CT Scan Report Signed Patient: Theresa Luu MR#: [id number] 322 : 1945 Acct:[id number] Age/Sex: 77 / F ADM Date: 08/06/23 Loc: XT Room: Type: [facility] RCR Attending Dr: Sly Benson II DO Copies to: Sly Benson II, DO Ordering Provider: Sly Benson II, DO Date of Service: 08/06/23 CT/CT abdomen pelvis w con: surveillance ([id number]) CT/CT chest w con: surveillance CT CHEST, [...] Monroe Jr., D.O.08/06/2023 2:43 PM Dictation Location: [place] [address] Transcribed By: [facility] 08/06/23 1443 Dictated By: Sylvain Monroe Jr, DO 08/06/23 1430 Signed By: 08/06/23 144 Normal [facility] Calcium [Mass/volume] in Ser um or PlasmaOrdered By: Sly Benson on 08-06-2023 Calcium [Mass/Vol] 9.2 mg/dL 8.6-10.3 [facility] Carbon dioxide, total [Moles /volume] in Serum or PlasmaOrdered By: Sly Benson on 08-06-2023 CO2 [Moles/Vol] 30.5 mmol/L 21.0-31.0 [facility] Chloride [Moles/volume] in S mellissa or PlasmaOrdered By: Sly Benson on 08-06-2023 Chloride [Moles/Vol] 104 mmol/L 98-107 [facility] Comprehensive Metabolic Pane eileen 08-06-2023 Albumin [Mass/Vol] 4.0 g/dL Normal 3.5-5.7 [facility] Comment on above: Performed By: #### C MP, LDH, T4F, TSH3 ####[place] [address] [place] [address] [facility] Albumin/Globulin [Mass ratio] 1.3 {ratio} Normal [facility] Comment on above: Performed By: #### C MP, LDH, T4F, TSH3 ####[facility] [place] [address] [facility] ALP [Catalytic activity/Vol] 95 U/L Normal 34-104 [facility] Comment on above: Performed By: #### C MP, LDH, T4F, TSH3 ####[facility] [address] [place] [address] [facility] ALT [Catalytic activity/Vol] 23 U/L Normal 7-52 [facility] Comment on above: Performed By: #### C MP, LDH, T4F, TSH3 ####[address] [address] [facility] Anion gap [Moles/Vol] Not performed Normal 6.0-15.0 [facility] Comment on above: Performed By: #### C MP, LDH, T4F, TSH3 ####[address] [address] [facility] AST [Catalytic activity/Vol] 29 U/L Normal 13-39 [facility] Comment on above: Performed By: #### C MP, LDH, T4F, TSH3 ####[address] [address] [facility] Bilirubin [Mass/Vol] 0.6 mg/dL Normal 0.3-1.0 [facility] Comment on above: Performed By: #### C MP, LDH, T4F, TSH3 ####[address] [address] [facility] Calcium [Mass/Vol] 9.2 mg/dL Normal 8.6-10.3 [facility] Comment on above: Performed By: #### C MP, LDH, T4F, TSH3 ####[address] [address] [facility] Chloride [Moles/Vol] 104 mmol/L Normal 98-107 [facility] Comment on above: Performed By: #### C MP, LDH, T4F, TSH3 ####[address] [address] [facility] CO2 [Moles/Vol] 30.5 mmol/L Normal 21.0-31.0 [facility] Comment on above: Performed By: #### C MP, LDH, T4F, TSH3 ####[address] [address] [facility] Creatinine [Mass/Vol] 0.87 mg/dL Normal 0.60-1.20 [facility] Comment on above: Performed By: #### C MP, LDH, T4F, TSH3 ####[address] [address] [place] Creatinine Clr Calc Pharmacy 57.70 Normal [facility] Comment on above: Performed By: #### C MP, LDH, T4F, TSH3 ####[place] [id number] [facility] GFR/1.73 sq M.predicted MDRD (S/P/Bld) [Vol rate/Area] mL/min/{1.73_m2} [facility] Comment on above: Performed By: #### C MP, LDH, T4F, TSH3 ####[place] [id number] [facility] Globulin (S) [Mass/Vol] 3.0 g/dL Normal [facility] Comment on above: Performed By: #### C MP, LDH, T4F, TSH3 ####[address] Glucose [Mass/Vol] 95 mg/dL Normal 70-100 [facility] Comment on above: Result Comment: [facility] Glucose Reference Range is dependent on time and content of last meal. Glucose of more than 200 mg/dL in a nonstressed, ambulatory subject supports the diagnosis of Diabetes Mellitus. ADA recommended reference range Performed By: #### C MP, LDH, T4F, TSH3 ####[place] [id number] [facility] Potassium Normal 3.5-5.1 [facility] Comment on above: Result Comment: Spec imen hemolyzed, redraw requested Performed By: #### C MP, LDH, T4F, TSH3 ####[place] [id number] [facility] Protein [Mass/Vol] 7.0 g/dL Normal 6.4-8.9 [facility] Comment on above: Performed By: #### C MP, LDH, T4F, TSH3 ####[place] [id number] [facility] Sodium [Moles/Vol] 141 mmol/L Normal 136-145 [facility] Comment on above: Performed By: #### C MP, LDH, T4F, TSH3 ####[facility] [place] [id number] [facility] Urea nitrogen [Mass/Vol] 23 mg/dL Normal -25 [facility] Comment on above: Performed By: #### C MP, LDH, T4F, TSH3 ####[facility] [place] [id number] [facility] Creatinine [Mass/volume] in Serum or PlasmaOrdered By: Sly Benson on 08-06-2023 Creatinine [Mass/Vol] 0.87 mg/dL 0.60-1.20 [facility] Free T4 (Free Thyroxine)on 0 08-06-2023 Free T4 [Mass/Vol] 1.13 ng/dL High 0.61-1.12 [facility] Comment on above: Performed By: #### C MP, LDH, T4F, TSH3 ####[place] [address] [place] [id number] [facility] Globulin Calc (S) [Mass/Vol] Ordered By: Sly Benson on 08-06-2023 Globulin (S) [Mass/Vol] 3.0 g/dL [facility] Glucose [Mass/volume] in Ser um or PlasmaOrdered By: Sly Benson on 08-06-2023 Glucose [Mass/Vol] 95 mg/dL 70-100 [facility] Comment on above: ADA recommended refe rence rangeRandom Glucose Reference Range is dependent on time and content of last meal. Glucose of more than 200 mg/dL in a nonstressed, ambulatory subject supports the diagnosis of Diabetes Mellitus. LDH Lactate Dehydrogenaseon 08-06-2023 LDH Lactate Dehydrogenase Normal 140-271 [facility] Comment on above: Result Comment: Spec imen hemolyzed, redraw requested Performed By: #### C MP, LDH, T4F, TSH3 ####[place] [address] [place] [id number] [facility] Lactate dehydrogenase [Enzym atic activity/volume] in Serum or Plasma by Lactate to pyOrdered By: Sly Benson on 08-06-2023 LDH Lactate to pyruvate reaction [Catalytic activity/Vol] 173 U/L 140-271 [facility] No Panel InformationOrdered By: Sly Benson on 08-06-2023 Estimated GFR (CKD-EPI) > 60.0 mL/Min [facility] Creatinine Clearance (Chem 57.70 [facility] Potassium [Moles/volume] in Serum or PlasmaOrdered By: Sly Benson on 08-06-2023 Potassium [Moles/Vol] 3.6 mmol/L 3.5-5.1 [facility] Protein [Mass/volume] in Ser um or PlasmaOrdered By: Sly Benson on 08-06-2023 Protein [Mass/Vol] 7.0 g/dL 6.4-8.9 [facility] Redraw LDHon 08-06-2023 Redraw LDH 173 U/L Normal 140-271 [facility] Comment on above: Order Comment: SPECI MEN HEMOLYZED. NOTIFIED CHON. Result Comment: PERF ORMED BY: [place] [address] PATHOLOGIST MALTSTER WAYLON SAUNDERS M.D. Performed By: #### R EDRAW K, REDRAW LDH #### [facility] [address] [place] [address] Redraw Potassiumon Potassium [Moles/Vol] 3.6 mmol/L Normal 3.5-5.1 [facility] Comment on above: Order Comment: SPECI MEN HEMOLYZED. NOTIFIED CHON. Performed By: #### R EDRAW K, REDRAW LDH #### [facility] [address] [place] [address] Serum or plasma albumin/glob ulin mass ratioOrdered By: Sly Benson on 08-06-2023 Albumin/Globulin [Mass ratio] 1.3 {ratio} [facility] Serum or plasma anion gap de terminationOrdered By: Sly Benson on 08-06-2023 Anion gap [Moles/Vol] TNP [facility] Comment on above: Test not performed Sodium [Moles/volume] in Ser um or PlasmaOrdered By: Sly Benson on 08-06-2023 Sodium [Moles/Vol] 141 mmol/L 136-145 [facility] Thyroid Stimulating Hormoneo n 08-06-2023 TSH Qn 2.81 m[IU]/L Normal 0.45-5.33 [facility] Comment on above: Result Comment: PERF ORMED BY: [facility] [address] [place] [address] PATHOLOGIST MALTSTER WAYLON SAUNDERS M.D. Performed By: #### C MP, LDH, T4F, TSH3 ####[address] Thyrotropin [Units/volume] i n Serum or PlasmaOrdered By: Sly Benson on 08-06-2023 TSH Qn 2.81 m[IU]/L 0.45-5.33 [facility] Thyroxine (T4) free [Mass/vo lume] in Serum or PlasmaOrdered By: Sly Benson on 08-06-2023 Free T4 [Mass/Vol] 1.13 ng/dL 0.61-1.12 [facility] Urea nitrogen [Mass/volume] in Serum or PlasmaOrdered By: Sly Benson on 08-06-2023 Urea nitrogen [Mass/Vol] 23 mg/dL 02-03 [facility] Adrenocorticotropic Hormone PLon 03-05-[address] 25.6 pg/mL Normal 7.2-63.3 [facility] Comment on above: Result Comment: ACTH reference interval for samples collected between 7 and 10 AM. Performed at: [facility] [address] [id number] Under Baster: Coleman Lacy PhD, Phone: [phone] PERFORMED BY: [facility] [address] [facility] [place] [address] PATHOLOGIST MALTSTER WAYLON SAUNDERS M.D. Performed By: #### C BC ####[place] [id number] [facility]#### ACTH ####[facility] , Alanine aminotransferase [En zymatic activity/volume] in Serum or PlasmaOrdered By: Sly Benson on 03-05-2023 ALT [Catalytic activity/Vol] 22 U/L 7-52 [facility] Albumin [Mass/volume] in Ser um or Plasma by Bromocresol green (BCG) dye binding methoOrdered By: Sly Benson on 03-05-2023 Albumin BCG dye [Mass/Vol] 4.1 g/dL 3.5-5.7 [facility] Alkaline phosphatase [Enzyma tic activity/volume] in Serum or PlasmaOrdered By: Sly Benson on 03-05-2023 ALP [Catalytic activity/Vol] 106 U/L 34-104 [facility] Aspartate aminotransferase [ Enzymatic activity/volume] in Serum or PlasmaOrdered By: Sly Benson on 03-05-2023 AST [Catalytic activity/Vol] 23 U/L 13-39 [facility] Basophils Auto (Bld) [#/Vol] Ordered By: Sly Benson on 03-05-2023 Basophils (Bld) [#/Vol] 0.0 10*3/uL 0.0-0.2 [facility] Basophils/100 WBC Auto (Bld) Ordered By: Sly Benson on 03-05-2023 Basophils/100 WBC (Bld) 0.8 % . [facility] Bilirubin.total [Mass/volume ] in Serum or PlasmaOrdered By: Sly Benson on 03-05-2023 Bilirubin [Mass/Vol] 0.6 mg/dL 0.3-1.[address] [facility] [address] abdomen pelvis w conon CT abdomen pelvis w con [facility] [place] [address] CT Scan Report Signed Patient: Theresa Luu MR#: [id number] 322 : 1945 Acct:[id number] Age/Sex: 77 / F ADM Date: 03/05/23 Loc: XT Room: Type: [facility] AND CLINICR Attending Dr: Sly Benson II DO Copies to: Sly Benson II, DO Ordering Provider: Sly Benson II, DO Date of Service: 03/05/23 CT/CT abdomen pelvis w con: surveilance ([id number]) CT/CT chest w con: surveilance CT CHEST, [...] unchanged. Impression dictated by: Sylvain Monroe Jr., D.OWilbert03/05/2023 3:12 PM Dictation Location: [id number] Transcribed By: MCKAYLA 03/05/23 1512 Dictated By: Sylvain Monroe Jr, DO 03/05/23 1504 Signed By: 03/05/23 1512 Normal [facility] Calcium [Mass/volume] in Ser um or PlasmaOrdered By: Sly Benson on 03-05-2023 Calcium [Mass/Vol] 9.4 mg/dL 8.6-10.3 [facility] Carbon dioxide, total [Moles /volume] in Serum or PlasmaOrdered By: Sly Benson on 03-05-2023 CO2 [Moles/Vol] 28.0 mmol/L 21.0-31.0 [facility] Chloride [Moles/volume] in S mellissa or PlasmaOrdered By: Sly Benson on 03-05-2023 Chloride [Moles/Vol] 104 mmol/L 98-107 [facility] Complete Blood Count Auto Di ffon 03-05-2023 Basophils (Bld) [#/Vol] 0.0 10*3/uL Normal 0.0-0.2 [facility] Comment on above: Result Comment: PERF ORMED BY: [facility] [address] [facility] [place] [address] PATHOLOGIST MALTSTER WAYLON SAUNDERS M.D. Performed By: #### C BC ####[place] [address] [address]#### ACTH ####[facility] , Basophils/100 WBC (Bld) 0.8 % Normal . [facility] Comment on above: Performed By: #### C BC ####[place] [address] [place] [address] [place]#### ACTH ####[facility] , Eosinophils (Bld) [#/Vol] 0.1 10*3/uL Normal 0.0-0.45 [facility] Comment on above: Performed By: #### C BC ####[place] [address] [place] [address] [place]#### ACTH ####[facility] , Eosinophils/100 WBC (Bld) 1.7 % Normal . [facility] Comment on above: Performed By: #### C BC ####[place] [address] [place]#### ACTH ####[facility] , Erythrocyte distribution width (RBC) [Ratio] 14.3 % Normal 11.9-15.3 [facility] Comment on above: Performed By: #### C BC ####[place] [address] [place]#### ACTH ####[facility] , Hematocrit (Bld) [Volume fraction] 39.8 % Normal 34.0-46.4 [facility] Comment on above: Performed By: #### C BC ####[address]#### ACTH ####[facility] , Hemoglobin (Bld) [Mass/Vol] 13.6 g/dL Normal 11.8-15.4 [facility] Comment on above: Performed By: #### C BC ####[place] [address] [place]#### ACTH ####[facility] , Lymphocytes (Bld) [#/Vol] 1.4 10*3/uL Normal 1.00-4.8 [facility] Comment on above: Performed By: #### C BC ####[place] [address] [place]#### ACTH ####[facility] , Lymphocytes/100 WBC (Bld) 23.1 % Normal . [facility] Comment on above: Performed By: #### C BC ####[place] [address] [place]#### ACTH ####[facility] , MCH (RBC) [Entitic mass] 30.2 pg Normal 24.7-34.3 [facility] Comment on above: Performed By: #### C BC ####[place] [address] [place]#### ACTH ####[facility] , MCV (RBC) [Entitic vol] 88.1 fL Normal 80-100 [facility] Comment on above: Performed By: #### C BC ####[place] [address] [place]#### ACTH ####[facility] , Mean Corpuscular HGB Conc 34.3 g/dL Normal 32.0-35.0 [facility] Comment on above: Performed By: #### C BC ####[place] [address] [place]#### ACTH ####[facility] , Monocytes (Bld) [#/Vol] 0.5 10*3/uL Normal 0.0-0.8 [facility] Comment on above: Performed By: #### C BC ####[place] [address] [place]#### ACTH ####[facility] , Monocytes/100 WBC (Bld) 8.4 % Normal . [facility] Comment on above: Performed By: #### C BC ####[place] [address] [place]#### ACTH ####[facility] , Neutrophils (Bld) [#/Vol] 4.1 10*3/uL Normal 1.8-7.7 [facility] Comment on above: Performed By: #### C BC ####[place] [address] [place]#### ACTH ####[facility] , Neutrophils/100 WBC (Bld) 66.0 % Normal . [facility] Comment on above: Performed By: #### C BC ####[place] [id number] [place]#### ACTH ####[facility] , NRBC% 0.0 /100{WBC} Normal 0-0.5 [facility] Comment on above: Performed By: #### C BC ####[address]#### ACTH ####[facility] , Platelet mean volume (Bld) [Entitic vol] 7.2 fL Normal 6.3-10.7 [facility] Comment on above: Performed By: #### C BC ####[place] [address] [place]#### ACTH ####[facility] , Platelets (Bld) [#/Vol] 190 10*3/uL Normal 150-450 [facility] Comment on above: Performed By: #### C BC ####[address]#### ACTH ####[facility] , RBC (Bld) [#/Vol] 4.51 10*6/uL Normal 3.60-5.00 [facility] Comment on above: Performed By: #### C BC ####[address]#### ACTH ####[facility] , WBC (Bld) [#/Vol] 6.3 10*3/uL Normal 3.8-11.6 [facility] Comment on above: Performed By: #### C BC ####[place] [address] [place]#### ACTH ####[facility] , Comprehensive Metabolic Pane eileen 03-05-2023 Albumin [Mass/Vol] 4.1 g/dL Normal 3.5-5.7 [facility] Comment on above: Order Comment: STAT BUN/CREAT FOR CT PER CHAGO IN CC DRAW 02/23/23 Performed By: #### T 4F, LDH, TSH3, CMP #### [facility] [address] Albumin/Globulin [Mass ratio] 1.5 {ratio} Normal [facility] Comment on above: Order Comment: STAT BUN/CREAT FOR CT PER CHAGO IN CC DRAW 02/23/23 Performed By: #### T 4F, LDH, TSH3, CMP #### [facility] [address] ALP [Catalytic activity/Vol] 106 U/L High 34-104 [facility] Comment on above: Order Comment: STAT BUN/CREAT FOR CT PER CHAGO IN CC DRAW 02/23/23 Performed By: #### T 4F, LDH, TSH3, CMP #### [facility] [address] ALT [Catalytic activity/Vol] 22 U/L Normal 7-52 [facility] Comment on above: Order Comment: STAT BUN/CREAT FOR CT PER CHAGO IN CC DRAW 02/23/23 Performed By: #### T 4F, LDH, TSH3, CMP #### [facility] [address] Anion gap [Moles/Vol] 12.8 mmol/L Normal 6.0-15.0 [facility] Comment on above: Order Comment: STAT BUN/CREAT FOR CT PER CHAGO IN CC DRAW 02/23/23 Performed By: #### T 4F, LDH, TSH3, CMP #### [facility] [address] AST [Catalytic activity/Vol] 23 U/L Normal 13-39 [facility] Comment on above: Order Comment: STAT BUN/CREAT FOR CT PER CHAGO IN CC DRAW 02/23/23 Performed By: #### T 4F, LDH, TSH3, CMP #### [facility] [address] Bilirubin [Mass/Vol] 0.6 mg/dL Normal 0.3-1.0 [facility] Comment on above: Order Comment: STAT BUN/CREAT FOR CT PER CHAGO IN CC DRAW 02/23/23 Performed By: #### T 4F, LDH, TSH3, CMP #### [facility] [address] Calcium [Mass/Vol] 9.4 mg/dL Normal 8.6-10.3 [facility] Comment on above: Order Comment: STAT BUN/CREAT FOR CT PER CHAGO IN CC DRAW 02/23/23 Performed By: #### T 4F, LDH, TSH3, CMP #### [facility] [address] Chloride [Moles/Vol] 104 mmol/L Normal 98-107 [facility] Comment on above: Order Comment: STAT BUN/CREAT FOR CT PER CHAGO IN CC DRAW 02/23/23 Performed By: #### T 4F, LDH, TSH3, CMP #### [facility] [address] CO2 [Moles/Vol] 28.0 mmol/L Normal 21.0-31.0 [facility] Comment on above: Order Comment: STAT BUN/CREAT FOR CT PER CHAGO IN CC DRAW 02/23/23 Performed By: #### T 4F, LDH, TSH3, CMP #### [facility] [address] Creatinine [Mass/Vol] 0.91 mg/dL Normal 0.60-1.20 [facility] Comment on above: Order Comment: STAT BUN/CREAT FOR CT PER CHAGO IN CC DRAW 02/23/23 Performed By: #### T 4F, LDH, TSH3, CMP #### [facility] [address] [place] [address] [place] Creatinine Clr Calc Pharmacy 54.20 Normal [facility] Comment on above: Order Comment: STAT BUN/CREAT FOR CT PER CHAGO IN CC DRAW 02/23/23 Performed By: #### T 4F, LDH, TSH3, CMP #### [facility] [address] [place] [address] [place] GFR/1.73 sq M.predicted MDRD (S/P/Bld) [Vol rate/Area] mL/min/{1.73_m2} [facility] Comment on above: Order Comment: STAT BUN/CREAT FOR CT PER CHAGO IN CC DRAW 02/23/23 Performed By: #### T 4F, LDH, TSH3, CMP #### [facility] [address] Globulin (S) [Mass/Vol] 2.8 g/dL [facility] Comment on above: Order Comment: STAT BUN/CREAT FOR CT PER CHAGO IN CC DRAW 02/23/23 Performed By: #### T 4F, LDH, TSH3, CMP #### [facility] [address] Glucose [Mass/Vol] 102 mg/dL High 70-100 [facility] Comment on above: Order Comment: STAT BUN/CREAT FOR CT PER CHAGO IN CC DRAW 02/23/23 Result Comment: [facility] Glucose Reference Range is dependent on time and content of last meal. Glucose of more than 200 mg/dL in a nonstressed, ambulatory subject supports the diagnosis of Diabetes Mellitus. ADA recommended reference range Performed By: #### T 4F, LDH, TSH3, CMP #### [facility] [address] Potassium [Moles/Vol] 3.8 mmol/L Normal 3.5-5.1 [facility] Comment on above: Order Comment: STAT BUN/CREAT FOR CT PER CHAGO IN CC DRAW 02/23/23 Performed By: #### T 4F, LDH, TSH3, CMP #### [facility] [address] Protein [Mass/Vol] 6.9 g/dL Normal 6.4-8.9 [facility] Comment on above: Order Comment: STAT BUN/CREAT FOR CT PER CHAGO IN CC DRAW 02/23/23 Performed By: #### T 4F, LDH, TSH3, CMP #### [facility] [address] Sodium [Moles/Vol] 141 mmol/L Normal 136-145 [facility] Comment on above: Order Comment: STAT BUN/CREAT FOR CT PER CHGAO IN CC DRAW 02/23/23 Performed By: #### T 4F, LDH, TSH3, CMP #### [facility] [address] Urea nitrogen [Mass/Vol] 17 mg/dL Normal 7-25 [facility] Comment on above: Order Comment: STAT BUN/CREAT FOR CT PER CHAGO IN CC DRAW 02/23/23 Performed By: #### T 4F, LDH, TSH3, CMP #### [facility] [address] Creatinine [Mass/volume] in Serum or PlasmaOrdered By: Sly Benson on 03-05-2023 Creatinine [Mass/Vol] 0.91 mg/dL 0.60-1.20 [facility] Eosinophils Auto (Bld) [#/Vo l]Ordered By: Sly Benson on 03-05-2023 Eosinophils (Bld) [#/Vol] 0.1 10*3/uL 0.0-0.45 [facility] Eosinophils/100 WBC Auto (Bl d)Ordered By: Sly Benson on 03-05-2023 Eosinophils/100 WBC (Bld) 1.7 % . [facility] Erythrocyte distribution wid th Auto (RBC) [Ratio]Ordered By: Sly Benson on 03-05-2023 Erythrocyte distribution width (RBC) [Ratio] 14.3 % 11.9-15.3 [facility] Free T4 (Free Thyroxine)on 0 03-05-2023 Free T4 [Mass/Vol] 0.94 ng/dL Normal 0.61-1.12 [facility] Comment on above: Order Comment: STAT BUN/CREAT FOR CT PER CHAGO IN CC DRAW 02/23/23 Performed By: #### T 4F, LDH, TSH3, CMP #### [facility] [address] Globulin Calc (S) [Mass/Vol] Ordered By: Sly Benson on 03-05-2023 Globulin (S) [Mass/Vol] 2.8 g/dL [facility] Glucose [Mass/volume] in Ser um or PlasmaOrdered By: Sly Benson on 03-05-2023 Glucose [Mass/Vol] 102 mg/dL 70-100 [facility] Comment on above: ADA recommended refe rence rangeRandom Glucose Reference Range is dependent on time and content of last meal. Glucose of more than 200 mg/dL in a nonstressed, ambulatory subject supports the diagnosis of Diabetes Mellitus. Hematocrit Auto (Bld) [Volum e fraction]Ordered By: Sly Benson on 03-05-2023 Hematocrit (Bld) [Volume fraction] 39.8 % 34.0-46.4 [facility] Hemoglobin [Mass/volume] in BloodOrdered By: Sly Benson on 03-05-2023 Hemoglobin (Bld) [Mass/Vol] 13.6 g/dL 11.8-15.4 [facility] LDH Lactate Dehydrogenaseon 03-05-2023 LDH Lactate Dehydrogenase 197 U/L Normal 140-271 [facility] Comment on above: Order Comment: STAT BUN/CREAT FOR CT PER CHAGO IN CC DRAW 02/23/23 Performed By: #### T 4F, LDH, TSH3, CMP #### [facility] [address] Lactate dehydrogenase [Enzym atic activity/volume] in Serum or Plasma by Lactate to pyOrdered By: Sly Benson on 03-05-2023 LDH Lactate to pyruvate reaction [Catalytic activity/Vol] 197 U/L 140-271 [facility] Leukocytes [#/volume] correc margot for nucleated erythrocytes in Blood by Automated counOrdered By: Sly Benson on 03-05-2023 WBC corrected for nucl RBC Auto (Bld) [#/Vol] 6.3 10*3/uL 3.8-11.6 [facility] Lymphocytes Auto (Bld) [#/Vo l]Ordered By: Sly Benson on 03-05-2023 Lymphocytes (Bld) [#/Vol] 1.4 10*3/uL 1.00-4.8 [facility] Lymphocytes/100 WBC Auto (Bl d)Ordered By: Sly Benson on 03-05-2023 Lymphocytes/100 WBC (Bld) 23.1 % . [facility] MCH Auto (RBC) [Entitic mass ]Ordered By: Sly Benson on 03-05-2023 MCH (RBC) [Entitic mass] 30.2 pg 24.7-34.3 [facility] MCHC Auto (RBC) [Mass/Vol]Or dered By: Sly Benson on 03-05-2023 MCHC (RBC) [Mass/Vol] 34.3 g/dL 32.0-35.0 [facility] MCV Auto (RBC) [Entitic vol] Ordered By: Sly Benson on 03-05-2023 MCV (RBC) [Entitic vol] 88.1 fL 80-100 [facility] Monocytes Auto (Bld) [#/Vol] Ordered By: Sly Benson on 03-05-2023 Monocytes (Bld) [#/Vol] 0.5 10*3/uL 0.0-0.8 [facility] Monocytes/100 WBC Auto (Bld) Ordered By: Sly Benson on 03-05-2023 Monocytes/100 WBC (Bld) 8.4 % . [facility] Neutrophils Auto (Bld) [#/Vo l]Ordered By: Sly Benson on 03-05-2023 Neutrophils (Bld) [#/Vol] 4.1 10*3/uL 1.8-7.7 [facility] Neutrophils/100 WBC Auto (Bl d)Ordered By: Sly Benson on 03-05-2023 Neutrophils/100 WBC (Bld) 66.0 % . [facility] No Panel InformationOrdered By: Sly Benson on 03-05-2023 Adrenocorticotropic Hormone 25.6 pg/mL 7.2-63.3 [facility] Comment on above: ACTH reference inter jamel for samples collected between 7 and10 AM.Performed at: [facility] [id number] Director: Coleman Lacy PhD, Phone: [phone] Estimated GFR (CKD-EPI) > 60.0 mL/Min [facility] Creatinine Clearance (Chem 54.20 [facility] Nucleated erythrocytes [Pres ence] in Blood by Automated countOrdered By: Sly Benson on 03-05-2023 Nucleated RBC Auto Ql (Bld) 0.0 /100{WBC} 0-0.5 [facility] Platelet mean volume Auto (B ld) [Entitic vol]Ordered By: Sly Benson on 03-05-2023 Platelet mean volume (Bld) [Entitic vol] 7.2 fL 6.3-10.7 [facility] Platelets Auto (Bld) [#/Vol] Ordered By: Sly Benson on 03-05-2023 Platelets (Bld) [#/Vol] 190 10*3/uL 150-450 [facility] Potassium [Moles/volume] in Serum or PlasmaOrdered By: Sly Benson on 03-05-2023 Potassium [Moles/Vol] 3.8 mmol/L 3.5-5.1 [facility] Protein [Mass/volume] in Ser um or PlasmaOrdered By: Sly Benson on 03-05-2023 Protein [Mass/Vol] 6.9 g/dL 6.4-8.9 [facility] RBC Auto (Bld) [#/Vol]Ordere d By: Sly Benson on 03-05-2023 RBC (Bld) [#/Vol] 4.51 10*6/uL 3.60-5.00 [facility] Serum or plasma albumin/glob ulin mass ratioOrdered By: Sly Benson on 03-05-2023 Albumin/Globulin [Mass ratio] 1.5 {ratio} [facility] Serum or plasma anion gap de terminationOrdered By: Sly Benson on 03-05-2023 Anion gap [Moles/Vol] 12.8 mmol/L 6.0-15.0 [facility] Sodium [Moles/volume] in Ser um or PlasmaOrdered By: Sly Benson on 03-05-2023 Sodium [Moles/Vol] 141 mmol/L 136-145 [facility] Thyroid Stimulating Hormoneo n 03-05-2023 TSH Qn 2.49 m[IU]/L Normal 0.45-5.33 [facility] Comment on above: Order Comment: STAT BUN/CREAT FOR CT PER CHAGO IN CC DRAW 02/23/23 Result Comment: PERF ORMED BY: [place] [address] PATHOLOGIST MALTSTER WAYLON SAUNDERS M.D. Performed By: #### T 4F, LDH, TSH3, CMP #### [facility] [address] [place] [address] Thyrotropin [Units/volume] i n Serum or PlasmaOrdered By: Sly Benson on 03-05-2023 TSH Qn 2.49 m[IU]/L 0.45-5.33 [facility] Thyroxine (T4) free [Mass/vo lume] in Serum or PlasmaOrdered By: Sly Benson on 03-05-2023 Free T4 [Mass/Vol] 0.94 ng/dL 0.61-1.12 [facility] Urea nitrogen [Mass/volume] in Serum or PlasmaOrdered By: Sly Benson on 03-05-2023 Urea nitrogen [Mass/Vol] 17 mg/dL 02-03 [facility] WBC Auto (Bld) [#/Vol]Ordere d By: Sly Benson on 03-05-2023 WBC (Bld) [#/Vol] 6.3 10*3/uL 3.8-11.6 [facility] Adrenocorticotropic Hormone PLon 12-30-[address] 28.9 pg/mL Normal 7.2-63.3 [facility] Comment on above: Result Comment: ACTH reference interval for samples collected between 7 and 10 AM. Performed at: - [facility] [id number] Under [place]: Coleman Lacy PhD, Phone: [phone] PERFORMED BY: [place] [address] PATHOLOGIST MALTSTER WAYLON SAUNDERS M.D. Performed By: #### C MP, LDH, TSH3, CBC, T4F ####[facility]#### ACTH ####[facility] , Alanine aminotransferase [En zymatic activity/volume] in Serum or PlasmaOrdered By: Sly Benson on 12-30-2022 ALT [Catalytic activity/Vol] 24 U/L 7-52 [facility] Albumin [Mass/volume] in Ser um or Plasma by Bromocresol green (BCG) dye binding methoOrdered By: Sly Benson on 12-30-2022 Albumin BCG dye [Mass/Vol] 4.0 g/dL 3.5-5.7 [facility] Alkaline phosphatase [Enzyma tic activity/volume] in Serum or PlasmaOrdered By: Sly Benson on 12-30-2022 ALP [Catalytic activity/Vol] 108 U/L 34-104 [facility] Aspartate aminotransferase [ Enzymatic activity/volume] in Serum or PlasmaOrdered By: Sly Benson on 12-30-2022 AST [Catalytic activity/Vol] 22 U/L 13-39 [facility] Basophils Auto (Bld) [#/Vol] Ordered By: Sly Benson on 12-30-2022 Basophils (Bld) [#/Vol] 0.0 10*3/uL 0.0-0.2 [facility] Basophils/100 WBC Auto (Bld) Ordered By: Sly Benson on 12-30-2022 Basophils/100 WBC (Bld) 0.5 % . [facility] Bilirubin.total [Mass/volume ] in Serum or PlasmaOrdered By: Sly Benson on 12-30-2022 Bilirubin [Mass/Vol] 0.5 mg/dL 0.3-1.0 [facility] Calcium [Mass/volume] in Ser um or PlasmaOrdered By: Sly Benson on 12-30-2022 Calcium [Mass/Vol] 9.1 mg/dL 8.6-10.3 [facility] Carbon dioxide, total [Moles /volume] in Serum or PlasmaOrdered By: Sly Benson on 12-30-2022 CO2 [Moles/Vol] 30.7 mmol/L 21.0-31.0 [facility] Chloride [Moles/volume] in S mellissa or PlasmaOrdered By: Sly Benson on 12-30-2022 Chloride [Moles/Vol] 104 mmol/L 98-107 [facility] Complete Blood Count Auto Di ffon 12-30-2022 Basophils (Bld) [#/Vol] 0.0 10*3/uL Normal 0.0-0.2 [facility] Comment on above: Result Comment: PERF ORMED BY: [facility] [address] [place] [address] PATHOLOGIST MALTSTER WAYLON SAUNDERS M.D. Performed By: #### C MP, LDH, TSH3, CBC, T4F ####[address]#### ACTH ####[facility] , Basophils/100 WBC (Bld) 0.5 % Normal . [facility] Comment on above: Performed By: #### C MP, LDH, TSH3, CBC, T4F ####[address]#### ACTH ####[facility] , Eosinophils (Bld) [#/Vol] 0.1 10*3/uL Normal 0.0-0.45 [facility] Comment on above: Performed By: #### C MP, LDH, TSH3, CBC, T4F ####[address]#### ACTH ####[facility] , Eosinophils/100 WBC (Bld) 1.5 % Normal . [facility] Comment on above: Performed By: #### C MP, LDH, TSH3, CBC, T4F ####[place] [address] [place]#### ACTH ####[facility] , Erythrocyte distribution width (RBC) [Ratio] 13.6 % Normal 11.9-15.3 [facility] Comment on above: Performed By: #### C MP, LDH, TSH3, CBC, T4F ####[address]#### ACTH ####[facility] , Hematocrit (Bld) [Volume fraction] 39.0 % Normal 34.0-46.4 [facility] Comment on above: Performed By: #### C MP, LDH, TSH3, CBC, T4F ####[address]#### ACTH ####[facility] , Hemoglobin (Bld) [Mass/Vol] 13.4 g/dL Normal 11.8-15.4 [facility] Comment on above: Performed By: #### C MP, LDH, TSH3, CBC, T4F ####[address]#### ACTH ####[facility] , Lymphocytes (Bld) [#/Vol] 1.6 10*3/uL Normal 1.00-4.8 [facility] Comment on above: Performed By: #### C MP, LDH, TSH3, CBC, T4F ####[address]#### ACTH ####[facility] , Lymphocytes/100 WBC (Bld) 24.0 % Normal . [facility] Comment on above: Performed By: #### C MP, LDH, TSH3, CBC, T4F ####[address]#### ACTH ####[facility] , MCH (RBC) [Entitic mass] 30.0 pg Normal 24.7-34.3 [facility] Comment on above: Performed By: #### C MP, LDH, TSH3, CBC, T4F ####[place] [address] [place]#### ACTH ####[facility] , MCV (RBC) [Entitic vol] 87.4 fL Normal 80-100 [facility] Comment on above: Performed By: #### C MP, LDH, TSH3, CBC, T4F ####[place] [address] [place]#### ACTH ####[facility] , Mean Corpuscular HGB Conc 34.3 g/dL Normal 32.0-35.0 [facility] Comment on above: Performed By: #### C MP, LDH, TSH3, CBC, T4F ####[place] [address] [place]#### ACTH ####[facility] , Monocytes (Bld) [#/Vol] 0.6 10*3/uL Normal 0.0-0.8 [facility] Comment on above: Performed By: #### C MP, LDH, TSH3, CBC, T4F ####[place] [address] [place]#### ACTH ####[facility] , Monocytes/100 WBC (Bld) 9.0 % Normal . [facility] Comment on above: Performed By: #### C MP, LDH, TSH3, CBC, T4F ####[place] [address] [place]#### ACTH ####[facility] , Neutrophils (Bld) [#/Vol] 4.4 10*3/uL Normal 1.8-7.7 [facility] Comment on above: Performed By: #### C MP, LDH, TSH3, CBC, T4F ####[place] [address] [place]#### ACTH ####[facility] , Neutrophils/100 WBC (Bld) 65.0 % Normal . [facility] Comment on above: Performed By: #### C MP, LDH, TSH3, CBC, T4F ####[place] [address] [place]#### ACTH ####[facility] , NRBC% 0.0 /100{WBC} Normal 0-0.5 [facility] Comment on above: Performed By: #### C MP, LDH, TSH3, CBC, T4F ####[address]#### ACTH ####[facility] , Platelet mean volume (Bld) [Entitic vol] 7.4 fL Normal 6.3-10.7 [facility] Comment on above: Performed By: #### C MP, LDH, TSH3, CBC, T4F ####[address]#### ACTH ####[facility] , Platelets (Bld) [#/Vol] 171 10*3/uL Normal 150-450 [facility] Comment on above: Performed By: #### C MP, LDH, TSH3, CBC, T4F ####[address]#### ACTH ####[facility] , RBC (Bld) [#/Vol] 4.46 10*6/uL Normal 3.60-5.00 [facility] Comment on above: Performed By: #### C MP, LDH, TSH3, CBC, T4F ####[place] [address] [place]#### ACTH ####[facility] , WBC (Bld) [#/Vol] 6.8 10*3/uL Normal 3.8-11.6 [facility] Comment on above: Performed By: #### C MP, LDH, TSH3, CBC, T4F ####[place] [address] [place]#### ACTH ####[facility] , Comprehensive Metabolic Pane eileen 12-30-2022 Albumin [Mass/Vol] 4.0 g/dL Normal 3.5-5.7 [facility] Comment on above: Performed By: #### C MP, LDH, TSH3, CBC, T4F ####[address]#### ACTH ####[facility] , Albumin/Globulin [Mass ratio] 1.6 {ratio} Normal [facility] Comment on above: Performed By: #### C MP, LDH, TSH3, CBC, T4F ####[address]#### ACTH ####[facility] , ALP [Catalytic activity/Vol] 108 U/L High 34-104 [facility] Comment on above: Performed By: #### C MP, LDH, TSH3, CBC, T4F ####[address]#### ACTH ####[facility] , ALT [Catalytic activity/Vol] 24 U/L Normal 7-52 [facility] Comment on above: Performed By: #### C MP, LDH, TSH3, CBC, T4F ####[address]#### ACTH ####[facility] , Anion gap [Moles/Vol] Not performed Normal 6.0-15.0 [facility] Comment on above: Result Comment: --- 12/30/22 1038 --- Gap previously reported as: 10.2 mEq/L Performed By: #### C MP, LDH, TSH3, CBC, T4F ####[place] [address] [place]#### ACTH ####[facility] , AST [Catalytic activity/Vol] 22 U/L Normal 13-39 [facility] Comment on above: Performed By: #### C MP, LDH, TSH3, CBC, T4F ####[address]#### ACTH ####[facility] , Bilirubin [Mass/Vol] 0.5 mg/dL Normal 0.3-1.0 [facility] Comment on above: Performed By: #### C MP, LDH, TSH3, CBC, T4F ####[place] [address] [place]#### ACTH ####[facility] , Calcium [Mass/Vol] 9.1 mg/dL Normal 8.6-10.3 [facility] Comment on above: Performed By: #### C MP, LDH, TSH3, CBC, T4F ####[address]#### ACTH ####[facility] , Chloride [Moles/Vol] 104 mmol/L Normal 98-107 [facility] Comment on above: Performed By: #### C MP, LDH, TSH3, CBC, T4F ####[address]#### ACTH ####[facility] , CO2 [Moles/Vol] 30.7 mmol/L Normal 21.0-31.0 [facility] Comment on above: Performed By: #### C MP, LDH, TSH3, CBC, T4F ####[place] [address] [place]#### ACTH ####[facility] , Creatinine [Mass/Vol] 0.92 mg/dL Normal 0.60-1.20 [facility] Comment on above: Performed By: #### C MP, LDH, TSH3, CBC, T4F ####[place] [address] [place]#### ACTH ####[facility] , Creatinine Clr Calc Pharmacy 54.88 Normal [facility] Comment on above: Performed By: #### C MP, LDH, TSH3, CBC, T4F ####[place] [address] [place]#### ACTH ####[facility] , GFR/1.73 sq M.predicted MDRD (S/P/Bld) [Vol rate/Area] mL/min/{1.73_m2} [facility] Comment on above: Performed By: #### C MP, LDH, TSH3, CBC, T4F ####[place] [address] [place]#### ACTH ####[facility] , Globulin (S) [Mass/Vol] 2.5 g/dL Normal [facility] Comment on above: Performed By: #### C MP, LDH, TSH3, CBC, T4F ####[place] [address] [place]#### ACTH ####[facility] , Glucose [Mass/Vol] 102 mg/dL High 70-100 [facility] Comment on above: Result Comment: [facility] Glucose Reference Range is dependent on time and content of last meal. Glucose of more than 200 mg/dL in a nonstressed, ambulatory subject supports the diagnosis of Diabetes Mellitus. ADA recommended reference range Performed By: #### C MP, LDH, TSH3, CBC, T4F ####[place] [address] [place]#### ACTH ####[facility] , Potassium Normal 3.5-5.1 [facility] Comment on above: Result Comment: Spec imen hemolyzed, redraw requested --- 12/30/22 1036 --- K previously reported as: 3.9 mmol/L Hemolysis is present at a level that could interfere with the result. Performed By: #### C MP, LDH, TSH3, CBC, T4F ####[place] [address] [place]#### ACTH ####[facility] , Protein [Mass/Vol] 6.5 g/dL Normal 6.4-8.9 [facility] Comment on above: Performed By: #### C MP, LDH, TSH3, CBC, T4F ####[facility] [address] [place] [address] [place]#### ACTH ####[facility] , Sodium [Moles/Vol] 141 mmol/L Normal 136-145 [facility] Comment on above: Performed By: #### C MP, LDH, TSH3, CBC, T4F ####[facility] [place] [address] [place]#### ACTH ####[facility] , Urea nitrogen [Mass/Vol] 17 mg/dL Normal 7-25 [facility] Comment on above: Performed By: #### C MP, LDH, TSH3, CBC, T4F ####[facility] [place] [address] [place]#### ACTH ####[facility] , Creatinine [Mass/volume] in Serum or PlasmaOrdered By: Sly Benson on 12-30-2022 Creatinine [Mass/Vol] 0.92 mg/dL 0.60-1.20 [facility] Eosinophils Auto (Bld) [#/Vo l]Ordered By: Sly Benson on 12-30-2022 Eosinophils (Bld) [#/Vol] 0.1 10*3/uL 0.0-0.45 [facility] Eosinophils/100 WBC Auto (Bl d)Ordered By: Sly Benson on 12-30-2022 Eosinophils/100 WBC (Bld) 1.5 % . [facility] Erythrocyte distribution wid th Auto (RBC) [Ratio]Ordered By: Sly Benson on 12-30-2022 Erythrocyte distribution width (RBC) [Ratio] 13.6 % 11.9-15.3 [facility] Free T4 (Free Thyroxine)on 0 12-30-2022 Free T4 [Mass/Vol] 1.03 ng/dL Normal 0.61-1.12 [facility] Comment on above: Performed By: #### C MP, LDH, TSH3, CBC, T4F ####[facility] [address] [place] [address] [place]#### ACTH ####[facility] , Globulin Calc (S) [Mass/Vol] Ordered By: Sly Benson on 12-30-2022 Globulin (S) [Mass/Vol] 2.5 g/dL [facility] Glucose [Mass/volume] in Ser um or PlasmaOrdered By: Sly Benson on 12-30-2022 Glucose [Mass/Vol] 102 mg/dL 70-100 [facility] Comment on above: ADA recommended refe rence rangeRandom Glucose Reference Range is dependent on time and content of last meal. Glucose of more than 200 mg/dL in a nonstressed, ambulatory subject supports the diagnosis of Diabetes Mellitus. Hematocrit Auto (Bld) [Volum e fraction]Ordered By: Sly Benson on 12-30-2022 Hematocrit (Bld) [Volume fraction] 39.0 % 34.0-46.4 [facility] Hemoglobin [Mass/volume] in BloodOrdered By: Sly Benson on 12-30-2022 Hemoglobin (Bld) [Mass/Vol] 13.4 g/dL 11.8-15.4 [facility] LDH Lactate Dehydrogenaseon 12-30-2022 LDH Lactate Dehydrogenase 211 U/L Normal 140-271 [facility] Comment on above: Result Comment: Hemo lysis is present at a level that could interfere with the result. Performed By: #### C MP, LDH, TSH3, CBC, T4F ####[facility] [address] [place] [address] [place]#### ACTH ####[facility] , Lactate dehydrogenase [Enzym atic activity/volume] in Serum or Plasma by Lactate to pyOrdered By: Sly Benson on 12-30-2022 LDH Lactate to pyruvate reaction [Catalytic activity/Vol] 211 U/L 140-271 [facility] Comment on above: Hemolysis is present at a level that could interfere with the result. Leukocytes [#/volume] correc margot for nucleated erythrocytes in Blood by Automated counOrdered By: Sly Benson on 12-30-2022 WBC corrected for nucl RBC Auto (Bld) [#/Vol] 6.8 10*3/uL 3.8-11.6 [facility] Lymphocytes Auto (Bld) [#/Vo l]Ordered By: Sly Benson on 12-30-2022 Lymphocytes (Bld) [#/Vol] 1.6 10*3/uL 1.00-4.8 [facility] Lymphocytes/100 WBC Auto (Bl d)Ordered By: Sly Benson on 12-30-2022 Lymphocytes/100 WBC (Bld) 24.0 % . [facility] MCH Auto (RBC) [Entitic mass ]Ordered By: Sly Benson on 12-30-2022 MCH (RBC) [Entitic mass] 30.0 pg 24.7-34.3 [facility] MCHC Auto (RBC) [Mass/Vol]Or dered By: Sly Benson on 12-30-2022 MCHC (RBC) [Mass/Vol] 34.3 g/dL 32.0-35.0 [facility] MCV Auto (RBC) [Entitic vol] Ordered By: Sly Benson on 12-30-2022 MCV (RBC) [Entitic vol] 87.4 fL 80-100 [facility] Monocytes Auto (Bld) [#/Vol] Ordered By: Sly Benson on 12-30-2022 Monocytes (Bld) [#/Vol] 0.6 10*3/uL 0.0-0.8 [facility] Monocytes/100 WBC Auto (Bld) Ordered By: Sly Benson on 12-30-2022 Monocytes/100 WBC (Bld) 9.0 % . [facility] Neutrophils Auto (Bld) [#/Vo l]Ordered By: Sly Benson on 12-30-2022 Neutrophils (Bld) [#/Vol] 4.4 10*3/uL 1.8-7.7 [facility] Neutrophils/100 WBC Auto (Bl d)Ordered By: Sly Benson on 12-30-2022 Neutrophils/100 WBC (Bld) 65.0 % . [facility] No Panel InformationOrdered By: Sly Benson on 12-30-2022 Adrenocorticotropic Hormone 28.9 pg/mL 7.2-63.3 [facility] Comment on above: ACTH reference inter jamel for samples collected between 7 and10 AM.Performed at: [facility] [id number] Director: Coleman Lacy PhD, Phone: [phone] Estimated GFR (CKD-EPI) > 60.0 mL/Min [facility] Creatinine Clearance (Chem 54.88 [facility] Nucleated erythrocytes [Pres ence] in Blood by Automated countOrdered By: Sly Benson on 12-30-2022 Nucleated RBC Auto Ql (Bld) 0.0 /100{WBC} 0-0.5 [facility] Platelet mean volume Auto (B ld) [Entitic vol]Ordered By: Sly Benson on 12-30-2022 Platelet mean volume (Bld) [Entitic vol] 7.4 fL 6.3-10.7 [facility] Platelets Auto (Bld) [#/Vol] Ordered By: Sly Benson on 12-30-2022 Platelets (Bld) [#/Vol] 171 10*3/uL 150-450 [facility] Potassium [Moles/volume] in Serum or PlasmaOrdered By: Sly Benson on 12-30-2022 Potassium [Moles/Vol] See comment 3.5-5.1 [facility] Comment on above: Specimen hemolyzed, redraw requested --- 12/30/22 1036 ---K previously reported as: 3.9 mmol/LHemolysis is present at a level that could interfere with the result. Protein [Mass/volume] in Ser um or PlasmaOrdered By: Sly Benson on 12-30-2022 Protein [Mass/Vol] 6.5 g/dL 6.4-8.9 [facility] RBC Auto (Bld) [#/Vol]Ordere d By: Sly Benson on 12-30-2022 RBC (Bld) [#/Vol] 4.46 10*6/uL 3.60-5.00 [facility] Serum or plasma albumin/glob ulin mass ratioOrdered By: Sly Benson on 12-30-2022 Albumin/Globulin [Mass ratio] 1.6 {ratio} [facility] Serum or plasma anion gap de terminationOrdered By: Sly Benson on 12-30-2022 Anion gap [Moles/Vol] TNP [facility] Comment on above: Test not performed-- - 12/30/22 1038 ---Gap previously reported as: 10.2 mEq/L Sodium [Moles/volume] in Ser um or PlasmaOrdered By: Sly Benson on 12-30-2022 Sodium [Moles/Vol] 141 mmol/L 136-145 [facility] Thyroid Stimulating Hormoneo n 12-30-2022 TSH Qn 2.31 m[IU]/L Normal 0.45-5.33 [facility] Comment on above: Result Comment: PERF ORMED BY: [facility] [address] [place] [address] PATHOLOGIST MALTSTER WAYLON SAUNDERS M.D. Performed By: #### C MP, LDH, TSH3, CBC, T4F ####[facility] [id number]#### ACTH ####[facility] , Thyrotropin [Units/volume] i n Serum or PlasmaOrdered By: Sly Benson on 12-30-2022 TSH Qn 2.31 m[IU]/L 0.45-5.33 [facility] Thyroxine (T4) free [Mass/vo lume] in Serum or PlasmaOrdered By: Syl Benson on 12-30-2022 Free T4 [Mass/Vol] 1.03 ng/dL 0.61-1.12 [facility] Urea nitrogen [Mass/volume] in Serum or PlasmaOrdered By: Sly Benson on 12-30-2022 Urea nitrogen [Mass/Vol] 17 mg/dL 7-25 [facility] WBC Auto (Bld) [#/Vol]Ordere d By: Sly Benson on 12-30-2022 WBC (Bld) [#/Vol] 6.8 10*3/uL 3.8-11.6 [facility] Adrenocorticotropic Hormone PLon 10-31-[address] 35.2 pg/mL Normal 7.2-63.3 [facility] Comment on above: Result Comment: ACTH reference interval for samples collected between 7 and 10 AM. Performed at: - [facility] [address] [id number] [place]: Coleman Lacy PhD, Phone: [phone] PERFORMED BY: [facility] [address] [facility] [place] [address] PATHOLOGIST MALTSTER WAYLON SAUNDERS M.D. Performed By: #### T SH3, LDH, CBC, CMP, T4F ####[facility] [id number]#### ACTH ####[facility] , Alanine aminotransferase [En zymatic activity/volume] in Serum or PlasmaOrdered By: Sly Benson on 10-31-2022 ALT [Catalytic activity/Vol] 22 U/L 7-52 [facility] Albumin [Mass/volume] in Ser um or Plasma by Bromocresol green (BCG) dye binding methoOrdered By: Sly Benson on 10-31-2022 Albumin BCG dye [Mass/Vol] 4.0 g/dL 3.5-5.7 [facility] Alkaline phosphatase [Enzyma tic activity/volume] in Serum or PlasmaOrdered By: Sly Benson on 10-31-2022 ALP [Catalytic activity/Vol] 98 U/L 34-104 [facility] Aspartate aminotransferase [ Enzymatic activity/volume] in Serum or PlasmaOrdered By: Sly Benson on 10-31-2022 AST [Catalytic activity/Vol] 28 U/L 13-39 [facility] Basophils Auto (Bld) [#/Vol] Ordered By: Sly Benson on 10-31-2022 Basophils (Bld) [#/Vol] 0.1 10*3/uL 0.0-0.2 [facility] Basophils/100 WBC Auto (Bld) Ordered By: Sly Benson on 10-31-2022 Basophils/100 WBC (Bld) 0.9 % . [facility] Bilirubin.total [Mass/volume ] in Serum or PlasmaOrdered By: Sly Benson on 10-31-2022 Bilirubin [Mass/Vol] 0.7 mg/dL 0.3-1.[address] [facility] [address] abdomen pelvis w conon CT abdomen pelvis w con [facility] [address] [place] [address] [address] [place], [place] [id number] CT Scan Report Signed Patient: Theresa Luu MR#: [id number] : 1945 Acct:[id number] Age/Sex: 77 / F ADM Date: 10/31/22 Loc: Room: Type: [facility] Attending Dr: Sly Benson II DO Copies to: ANTOINETTE Dan II, DO Ordering Provider: Zenobia Parker APRN Date of Service: 10/31/22 CT/CT abdomen pelvis w con: restaging ([id number]) CT/CT chest w con: restaging CT CHEST, [...] Monroe Jr., D.OWilbert10/31/2022 2:24 PM Dictation Location: [place] [address] Transcribed By: [facility] 10/31/22 1424 Dictated By: Sylvain Monroe Jr, DO 10/31/22 1415 Signed By: 10/31/22 1424 Normal [facility] Calcium [Mass/volume] in Ser um or PlasmaOrdered By: Sly Benson on 10-31-2022 Calcium [Mass/Vol] 8.9 mg/dL 8.6-10.3 [facility] Carbon dioxide, total [Moles /volume] in Serum or PlasmaOrdered By: Sly Benson on 04-21-2023 CO2 [Moles/Vol] 28.6 mmol/L 21.0-31.0 [facility] Chloride [Moles/volume] in S mellissa or PlasmaOrdered By: Sly Benson on 10-31-2022 Chloride [Moles/Vol] 104 mmol/L 98-107 [facility] Complete Blood Count Auto Di ffon 10-31-2022 Basophils (Bld) [#/Vol] 0.1 10*3/uL Normal 0.0-0.2 [facility] Comment on above: Result Comment: PERF ORMED BY: [facility] [address] [place] [address] PATHOLOGIST MALTSTER WAYLON SAUNDERS M.D. Performed By: #### T SH3, LDH, CBC, CMP, T4F ####[address]#### ACTH ####[facility] , Basophils/100 WBC (Bld) 0.9 % Normal . [facility] Comment on above: Performed By: #### T SH3, LDH, CBC, CMP, T4F ####[address]#### ACTH ####[facility] , Eosinophils (Bld) [#/Vol] 0.1 10*3/uL Normal 0.0-0.45 [facility] Comment on above: Performed By: #### T SH3, LDH, CBC, CMP, T4F ####[address]#### ACTH ####[facility] , Eosinophils/100 WBC (Bld) 1.8 % Normal . [facility] Comment on above: Performed By: #### T SH3, LDH, CBC, CMP, T4F ####[place] [address] [place]#### ACTH ####[facility] , Erythrocyte distribution width (RBC) [Ratio] 15.0 % Normal 11.9-15.3 [facility] Comment on above: Performed By: #### T SH3, LDH, CBC, CMP, T4F ####[place] [address] [place]#### ACTH ####[facility] , Hematocrit (Bld) [Volume fraction] 41.3 % Normal 34.0-46.4 [facility] Comment on above: Performed By: #### T SH3, LDH, CBC, CMP, T4F ####[address]#### ACTH ####[facility] , Hemoglobin (Bld) [Mass/Vol] 14.0 g/dL Normal 11.8-15.4 [facility] Comment on above: Performed By: #### T SH3, LDH, CBC, CMP, T4F ####[address]#### ACTH ####[facility] , Lymphocytes (Bld) [#/Vol] 1.8 10*3/uL Normal 1.00-4.8 [facility] Comment on above: Performed By: #### T SH3, LDH, CBC, CMP, T4F ####[address]#### ACTH ####[facility] , Lymphocytes/100 WBC (Bld) 26.5 % Normal . [facility] Comment on above: Performed By: #### T SH3, LDH, CBC, CMP, T4F ####[place] [address] [place]#### ACTH ####[facility] , MCH (RBC) [Entitic mass] 29.7 pg Normal 24.7-34.3 [facility] Comment on above: Performed By: #### T SH3, LDH, CBC, CMP, T4F ####[place] [address] [place]#### ACTH ####[facility] , MCV (RBC) [Entitic vol] 87.8 fL Normal 80-100 [facility] Comment on above: Performed By: #### T SH3, LDH, CBC, CMP, T4F ####[address]#### ACTH ####[facility] , Mean Corpuscular HGB Conc 33.8 g/dL Normal 32.0-35.0 [facility] Comment on above: Performed By: #### T SH3, LDH, CBC, CMP, T4F ####[place] [address] [place]#### ACTH ####[facility] , Monocytes (Bld) [#/Vol] 0.8 10*3/uL Normal 0.0-0.8 [facility] Comment on above: Performed By: #### T SH3, LDH, CBC, CMP, T4F ####[place] [address] [place]#### ACTH ####[facility] , Monocytes/100 WBC (Bld) 11.2 % Normal . [facility] Comment on above: Performed By: #### T SH3, LDH, CBC, CMP, T4F ####[place] [address] [place]#### ACTH ####[facility] , Neutrophils (Bld) [#/Vol] 4.0 10*3/uL Normal 1.8-7.7 [facility] Comment on above: Performed By: #### T SH3, LDH, CBC, CMP, T4F ####[place] [address] [place]#### ACTH ####[facility] , Neutrophils/100 WBC (Bld) 59.6 % Normal . [facility] Comment on above: Performed By: #### T SH3, LDH, CBC, CMP, T4F ####[place] [address] [place]#### ACTH ####[facility] , NRBC% 0.0 /100{WBC} Normal 0-0.5 [facility] Comment on above: Performed By: #### T SH3, LDH, CBC, CMP, T4F ####[place] [address] [place]#### ACTH ####[facility] , Platelet mean volume (Bld) [Entitic vol] 7.1 fL Normal 6.3-10.7 [facility] Comment on above: Performed By: #### T SH3, LDH, CBC, CMP, T4F ####[address]#### ACTH ####[facility] , Platelets (Bld) [#/Vol] 201 10*3/uL Normal 150-450 [facility] Comment on above: Performed By: #### T SH3, LDH, CBC, CMP, T4F ####[place] [address] [place]#### ACTH ####[facility] , RBC (Bld) [#/Vol] 4.70 10*6/uL Normal 3.60-5.00 [facility] Comment on above: Performed By: #### T SH3, LDH, CBC, CMP, T4F ####[place] [address] [place]#### ACTH ####[facility] , WBC (Bld) [#/Vol] 6.8 10*3/uL Normal 3.8-11.6 [facility] Comment on above: Performed By: #### T SH3, LDH, CBC, CMP, T4F ####[place] [address] [place]#### ACTH ####[facility] , Comprehensive Metabolic Pane eileen 10-31-2022 Albumin [Mass/Vol] 4.0 g/dL Normal 3.5-5.7 [facility] Comment on above: Performed By: #### T SH3, LDH, CBC, CMP, T4F ####[facility] [place] [address] [place]#### ACTH ####[facility] , Albumin/Globulin [Mass ratio] 1.4 {ratio} Normal [facility] Comment on above: Performed By: #### T SH3, LDH, CBC, CMP, T4F ####[place] [address] [place]#### ACTH ####[facility] , ALP [Catalytic activity/Vol] 98 U/L Normal 34-104 [facility] Comment on above: Performed By: #### T SH3, LDH, CBC, CMP, T4F ####[place] [address] [place]#### ACTH ####[facility] , ALT [Catalytic activity/Vol] 22 U/L Normal 7-52 [facility] Comment on above: Performed By: #### T SH3, LDH, CBC, CMP, T4F ####[address]#### ACTH ####[facility] , Anion gap [Moles/Vol] 12.2 mmol/L Normal 6.0-15.0 [facility] Comment on above: Performed By: #### T SH3, LDH, CBC, CMP, T4F ####[place] [address] [place]#### ACTH ####[facility] , AST [Catalytic activity/Vol] 28 U/L Normal 13-39 [facility] Comment on above: Performed By: #### T SH3, LDH, CBC, CMP, T4F ####[place] [address] [place]#### ACTH ####[facility] , Bilirubin [Mass/Vol] 0.7 mg/dL Normal 0.3-1.0 [facility] Comment on above: Performed By: #### T SH3, LDH, CBC, CMP, T4F ####[address]#### ACTH ####[facility] , Calcium [Mass/Vol] 8.9 mg/dL Normal 8.6-10.3 [facility] Comment on above: Performed By: #### T SH3, LDH, CBC, CMP, T4F ####[address]#### ACTH ####[facility] , Chloride [Moles/Vol] 104 mmol/L Normal 98-107 [facility] Comment on above: Performed By: #### T SH3, LDH, CBC, CMP, T4F ####[address]#### ACTH ####[facility] , CO2 [Moles/Vol] 28.6 mmol/L Normal 21.0-31.0 [facility] Comment on above: Performed By: #### T SH3, LDH, CBC, CMP, T4F ####[place] [address] [place]#### ACTH ####[facility] , Creatinine [Mass/Vol] 0.93 mg/dL Normal 0.60-1.20 [facility] Comment on above: Performed By: #### T SH3, LDH, CBC, CMP, T4F ####[place] [address] [place]#### ACTH ####[facility] , Creatinine Clr Calc Pharmacy 54.88 Normal [facility] Comment on above: Performed By: #### T SH3, LDH, CBC, CMP, T4F ####[facility]#### ACTH ####[facility] , GFR/1.73 sq M.predicted MDRD (S/P/Bld) [Vol rate/Area] mL/min/{1.73_m2} [facility] Comment on above: Performed By: #### T SH3, LDH, CBC, CMP, T4F ####[place] [address] [place]#### ACTH ####[facility] , Globulin (S) [Mass/Vol] 2.9 g/dL [facility] Comment on above: Performed By: #### T SH3, LDH, CBC, CMP, T4F ####[address]#### ACTH ####[facility] , Glucose [Mass/Vol] 100 mg/dL Normal 70-100 [facility] Comment on above: Result Comment: [facility] Glucose Reference Range is dependent on time and content of last meal. Glucose of more than 200 mg/dL in a nonstressed, ambulatory subject supports the diagnosis of Diabetes Mellitus. ADA recommended reference range Performed By: #### T SH3, LDH, CBC, CMP, T4F ####[address]#### ACTH ####[facility] , Potassium [Moles/Vol] 3.8 mmol/L Normal 3.5-5.1 [facility] Comment on above: Performed By: #### T SH3, LDH, CBC, CMP, T4F ####[place] [address] [place]#### ACTH ####[facility] , Protein [Mass/Vol] 6.9 g/dL Normal 6.4-8.9 [facility] Comment on above: Performed By: #### T SH3, LDH, CBC, CMP, T4F ####[facility] [place] [address] [place]#### ACTH ####[facility] , Sodium [Moles/Vol] 141 mmol/L Normal 136-145 [facility] Comment on above: Performed By: #### T SH3, LDH, CBC, CMP, T4F ####[facility] [place] [address] [place]#### ACTH ####[facility] , Urea nitrogen [Mass/Vol] 19 mg/dL Normal 7-25 [facility] Comment on above: Performed By: #### T SH3, LDH, CBC, CMP, T4F ####[place] [address] [place] [address] [place]#### ACTH ####[facility] , Creatinine [Mass/volume] in Serum or PlasmaOrdered By: Sly Benson on 10-31-2022 Creatinine [Mass/Vol] 0.93 mg/dL 0.60-1.20 [facility] Eosinophils Auto (Bld) [#/Vo l]Ordered By: Syl Benson on 10-31-2022 Eosinophils (Bld) [#/Vol] 0.1 10*3/uL 0.0-0.45 [facility] Eosinophils/100 WBC Auto (Bl d)Ordered By: Sly Benson on 10-31-2022 Eosinophils/100 WBC (Bld) 1.8 % . [facility] Erythrocyte distribution wid th Auto (RBC) [Ratio]Ordered By: Sly Benson on 10-31-2022 Erythrocyte distribution width (RBC) [Ratio] 15.0 % 11.9-15.3 [facility] Free T4 (Free Thyroxine)on 0 10-31-2022 Free T4 [Mass/Vol] 1.02 ng/dL Normal 0.61-1.12 [facility] Comment on above: Performed By: #### T SH3, LDH, CBC, CMP, T4F ####[place] [address] [place] [address] [place]#### ACTH ####[facility] , Globulin Calc (S) [Mass/Vol] Ordered By: Sly Benson on 10-31-2022 Globulin (S) [Mass/Vol] 2.9 g/dL [facility] Glucose [Mass/volume] in Ser um or PlasmaOrdered By: Sly Benson on 10-31-2022 Glucose [Mass/Vol] 100 mg/dL 70-100 [facility] Comment on above: ADA recommended refe rence rangeRandom Glucose Reference Range is dependent on time and content of last meal. Glucose of more than 200 mg/dL in a nonstressed, ambulatory subject supports the diagnosis of Diabetes Mellitus. Hematocrit Auto (Bld) [Volum e fraction]Ordered By: Sly Benson on 10-31-2022 Hematocrit (Bld) [Volume fraction] 41.3 % 34.0-46.4 [facility] Hemoglobin [Mass/volume] in BloodOrdered By: Sly Benson on 10-31-2022 Hemoglobin (Bld) [Mass/Vol] 14.0 g/dL 11.8-15.4 [facility] LDH Lactate Dehydrogenaseon 10-31-2022 LDH Lactate Dehydrogenase 226 U/L Normal 140-271 [facility] Comment on above: Performed By: #### T SH3, LDH, CBC, CMP, T4F ####[facility] [address]#### ACTH ####[facility] , Lactate dehydrogenase [Enzym atic activity/volume] in Serum or Plasma by Lactate to pyOrdered By: Sly Benson on 10-31-2022 LDH Lactate to pyruvate reaction [Catalytic activity/Vol] 226 U/L 140-271 [facility] Leukocytes [#/volume] correc margot for nucleated erythrocytes in Blood by Automated counOrdered By: Sly Benson on 10-31-2022 WBC corrected for nucl RBC Auto (Bld) [#/Vol] 6.8 10*3/uL 3.8-11.6 [facility] Lymphocytes Auto (Bld) [#/Vo l]Ordered By: Sly Benson on 10-31-2022 Lymphocytes (Bld) [#/Vol] 1.8 10*3/uL 1.00-4.8 [facility] Lymphocytes/100 WBC Auto (Bl d)Ordered By: Sly Benson on 10-31-2022 Lymphocytes/100 WBC (Bld) 26.5 % . [facility] MCH Auto (RBC) [Entitic mass ]Ordered By: Sly Benson on 10-31-2022 MCH (RBC) [Entitic mass] 29.7 pg 24.7-34.3 [facility] MCHC Auto (RBC) [Mass/Vol]Or dered By: Sly Benson on 10-31-2022 MCHC (RBC) [Mass/Vol] 33.8 g/dL 32.0-35.0 [facility] MCV Auto (RBC) [Entitic vol] Ordered By: Sly Benson on 10-31-2022 MCV (RBC) [Entitic vol] 87.8 fL 80-100 [facility] Monocytes Auto (Bld) [#/Vol] Ordered By: Sly Bneson on 10-31-2022 Monocytes (Bld) [#/Vol] 0.8 10*3/uL 0.0-0.8 [facility] Monocytes/100 WBC Auto (Bld) Ordered By: Sly Benson on 10-31-2022 Monocytes/100 WBC (Bld) 11.2 % . [facility] Neutrophils Auto (Bld) [#/Vo l]Ordered By: Sly Benson on 10-31-2022 Neutrophils (Bld) [#/Vol] 4.0 10*3/uL 1.8-7.7 [facility] Neutrophils/100 WBC Auto (Bl d)Ordered By: Sly Benson on 10-31-2022 Neutrophils/100 WBC (Bld) 59.6 % . [facility] No Panel InformationOrdered By: Sly Benson on 10-31-2022 Adrenocorticotropic Hormone 35.2 pg/mL 7.2-63.3 [facility] Comment on above: ACTH reference inter jamel for samples collected between 7 and10 AM.Performed at: [address] [id number] Director: Coleman Lacy PhD, Phone: [phone] Estimated GFR (CKD-EPI) > 60.0 mL/Min [facility] Creatinine Clearance (Chem 54.88 [facility] Nucleated erythrocytes [Pres ence] in Blood by Automated countOrdered By: Sly Benson on 10-31-2022 Nucleated RBC Auto Ql (Bld) 0.0 /100{WBC} 0-0.5 [facility] Platelet mean volume Auto (B ld) [Entitic vol]Ordered By: Sly Benson on 10-31-2022 Platelet mean volume (Bld) [Entitic vol] 7.1 fL 6.3-10.7 [facility] Platelets Auto (Bld) [#/Vol] Ordered By: Sly Benson on 10-31-2022 Platelets (Bld) [#/Vol] 201 10*3/uL 150-450 [facility] Potassium [Moles/volume] in Serum or PlasmaOrdered By: Sly Benson on 10-31-2022 Potassium [Moles/Vol] 3.8 mmol/L 3.5-5.1 [facility] Protein [Mass/volume] in Ser um or PlasmaOrdered By: Sly Benson on 10-31-2022 Protein [Mass/Vol] 6.9 g/dL 6.4-8.9 [facility] RBC Auto (Bld) [#/Vol]Ordere d By: Sly Benson on 10-31-2022 RBC (Bld) [#/Vol] 4.70 10*6/uL 3.60-5.00 [facility] Serum or plasma albumin/glob ulin mass ratioOrdered By: Sly Benson on 10-31-2022 Albumin/Globulin [Mass ratio] 1.4 {ratio} [facility] Serum or plasma anion gap de terminationOrdered By: Sly Benson on 10-31-2022 Anion gap [Moles/Vol] 12.2 mmol/L 6.0-15.0 [facility] Sodium [Moles/volume] in Ser um or PlasmaOrdered By: Sly Benson on 10-31-2022 Sodium [Moles/Vol] 141 mmol/L 136-145 [facility] Thyroid Stimulating Hormoneo n 10-31-2022 TSH Qn 2.49 m[IU]/L Normal 0.45-5.33 [facility] Comment on above: Result Comment: PERF ORMED BY: [facility] [address] [id number] PATHOLOGIST MALTSTER WAYLON SAUNDERS M.D. Performed By: #### T SH3, LDH, CBC, CMP, T4F ####[facility] [id number] [place] [address] [facility]#### ACTH ####[facility] , Thyrotropin [Units/volume] i n Serum or PlasmaOrdered By: Sly Benson on 10-31-2022 TSH Qn 2.49 m[IU]/L 0.45-5.33 [facility] Thyroxine (T4) free [Mass/vo lume] in Serum or PlasmaOrdered By: Sly Benson on 10-31-2022 Free T4 [Mass/Vol] 1.02 ng/dL 0.61-1.12 [facility] Urea nitrogen [Mass/volume] in Serum or PlasmaOrdered By: Sly Benson on 10-31-2022 Urea nitrogen [Mass/Vol] 19 mg/dL 02-03 [facility] WBC Auto (Bld) [#/Vol]Ordere d By: Sly Benson on 10-31-2022 WBC (Bld) [#/Vol] 6.8 10*3/uL 3.8-11.6 [facility] ACTH, PLASMAon 10-04-2022 ACTH, Plasma 48.7 pg/mL Normal 7.2-63.3 [facility] Comment on above: Result Comment: ACTH reference interval for samples collected between 7 and 10 AM. Performed By: #### A CTHP #### [facility] [address] [address] [address] Alesia Meyers CBC AUTO DIFFon 10-03-2022 BASO # 0.1 103/ul Normal 0.0-0.1 [facility] Comment on above: Performed By: #### T SH, CMP, LDH #### [facility] [address] [place] [address] Dr. Alesia Meyers Basophils/100 WBC (Bld) 1.2 % Normal 0.2-2.0 [facility] Comment on above: Performed By: #### T SH, CMP, LDH #### [facility] [address] [place] [address] Dr. Alesia Meyesr EO # 0.2 103/ul Normal 0.0-0.7 [facility] Comment on above: Performed By: #### T SH, CMP, LDH #### [facility] [address] [place] [address] Dr. Alesia Meyers Eosinophils/100 WBC (Bld) 2.5 % Normal 0.9-7.0 [facility] Comment on above: Performed By: #### T SH, CMP, LDH #### [facility] [address] [place] [address] Dr. Alesia Meyers Erythrocyte distribution width (RBC) [Ratio] 13.9 % Normal 11.0-15.0 [facility] Comment on above: Performed By: #### T SH, CMP, LDH #### [facility] [address] [place] [address] Dr. Alesia Meyers Hematocrit (Bld) [Volume fraction] 41.9 % Normal 36.0-48.0 [facility] Comment on above: Performed By: #### T SH, CMP, LDH #### [facility] [address] [place] [address] Dr. Alesia Meyers Hemoglobin (Bld) [Mass/Vol] 13.6 g/dL Normal 12.0-16.0 [facility] Comment on above: Performed By: #### T SH, CMP, LDH #### [facility] [address] [place] [address] Dr. Alesia Meyers IG # 0.04 10e3/ul Critically high 0.00-0.03 [facility] Comment on above: Performed By: #### T SH, CMP, LDH #### [facility] [address] [place] [address] Dr. Alesia Meyers IG % 0.7 % Critically high 0.0-0.5 [facility] Comment on above: Performed By: #### T SH, CMP, LDH #### [facility] [address] [place] [address] Dr. Alesia Meyers LYMPH # 2.1 103/ul Normal 1.2-3.8 [facility] Comment on above: Performed By: #### T SH, CMP, LDH #### [facility] [address] [place] [address] Dr. Alesia Meyers Lymphocytes/100 WBC (Bld) 35.5 % Normal 20.5-60.0 [facility] Comment on above: Performed By: #### T SH, CMP, LDH #### [facility] [address] [place] [address] Dr. Alesia Meyers MANUAL DIFF REQ NO Normal [facility] Comment on above: Performed By: #### T SH, CMP, LDH #### [facility] [address] [place] [address] Dr. Alesia Meyers MCH (RBC) [Entitic mass] 28.9 pg Normal 26.7-34.0 [facility] Comment on above: Performed By: #### T SH, CMP, LDH #### [facility] [address] [place] [address] Dr. Alesia Meyers MCHC (RBC) [Mass/Vol] 32.5 g/dL Normal 29.9-35.2 [facility] Comment on above: Performed By: #### T SH, CMP, LDH #### [facility] [address] [place] [address] Dr. Alesia Meyers MCV (RBC) [Entitic vol] 89.1 fL Normal 81.0-99.0 [facility] Comment on above: Performed By: #### T SH, CMP, LDH #### [facility] [address] [place] [address] Dr. Alesia Meyers MONO # 0.6 103/ul Normal 0.3-0.8 [facility] Comment on above: Performed By: #### T SH, CMP, LDH #### [facility] [address] [address] [address] Alesia Meyers Monocytes/100 WBC (Bld) 10.8 % Normal 1.7-12.0 [facility] Comment on above: Performed By: #### T SH, CMP, LDH #### [facility] [address] [place] [address] Dr. Alesia Meyers NEUT # 2.9 103/ul Normal 1.4-6.5 [facility] Comment on above: Performed By: #### T SH, CMP, LDH #### [facility] [address] [place] [address] Dr. Alesia Meyers Neutrophils/100 WBC (Bld) 49.3 % Normal 43.0-75.0 [facility] Comment on above: Performed By: #### T SH, CMP, LDH #### [facility] [address] [place] [address] Dr. Alesia Meyers Platelet mean volume (Bld) [Entitic vol] 8.8 fL Critically low 9.5-13.5 [facility] Comment on above: Performed By: #### T SH, CMP, LDH #### [facility] [address] [place] [address] Dr. Alesia Meyers PLT 226 103/ul Normal 150-450 [facility] Comment on above: Performed By: #### T SH, CMP, LDH #### [facility] [address] [place] [address] Dr. Alesia Meyers RBC 4.70 106/ul Normal 4.20-5.40 [facility] Comment on above: Performed By: #### T SH, CMP, LDH #### [facility] [address] [place] [address] Dr. Alesia Meyers WBC 5.9 103/ul Normal 4.0-11.0 [facility] Comment on above: Performed By: #### T SH, CMP, LDH #### [facility] [address] [place] [address] Dr. Alesia Meyers FREE T4on 10-03-2022 Free T4 [Mass/Vol] 1.02 ng/dL Normal 0.76-1.46 [facility] Comment on above: Performed By: #### F T4 #### [facility] [address] [place] [address] Dr. Alesia Meyers LDHon 10-03-2022 LDH 212 U/L Normal 81-234 [facility] Comment on above: Performed By: #### F T4 #### [facility] [address] [place] [address] Dr. Alesia Meyers PROF 14(COMP METB)on 023 Albumin [Mass/Vol] 3.5 g/dL Normal 3.4-5.0 [facility] Comment on above: Performed By: #### F T4 #### [facility] [address] [place] [address] Dr. Alesia Meyers Albumin/Globulin [Mass ratio] 1.1 {ratio} Normal [facility] Comment on above: Performed By: #### F T4 #### [facility] [address] [place] [address] Dr. Alesia Meyers ALP [Catalytic activity/Vol] 120 U/L Critically high 46-116 [facility] Comment on above: Performed By: #### F T4 #### [facility] [address] [place] [address] Dr. Alesia Meyers ALT [Catalytic activity/Vol] 37 U/L Normal 14-59 [facility] Comment on above: Performed By: #### F T4 #### [facility] [address] [place] [address] Dr. Alesia Meyers Anion gap [Moles/Vol] 11.4 mmol/L Normal [facility] Comment on above: Performed By: #### F T4 #### [facility] [address] [place] [address] Dr. Alesia Meyers AST [Catalytic activity/Vol] 28 U/L Normal 15-37 [facility] Comment on above: Performed By: #### F T4 #### [facility] [address] [place] [address] Dr. Alesia Meyers Bilirubin [Mass/Vol] 0.4 mg/dL Normal 0.2-1.0 [facility] Comment on above: Performed By: #### F T4 #### [facility] [address] [address] [address] Alesia Meyers Calcium [Mass/Vol] 9.2 mg/dL Normal 8.5-10.1 [facility] Comment on above: Performed By: #### F T4 #### [facility] [address] [address] [address] Alesia Meyers Chloride [Moles/Vol] 105 mmol/L Normal 98-107 [facility] Comment on above: Performed By: #### F T4 #### [facility] [address] [address] [address] Alesia Meyers CO2 [Moles/Vol] 30.4 mmol/L Normal 21.0-32.0 [facility] Comment on above: Performed By: #### F T4 #### [facility] [address] [place] [address] Dr. Alesia Meyers Creatinine [Mass/Vol] 0.88 mg/dL Normal 0.55-1.02 [facility] Comment on above: Performed By: #### F T4 #### [facility] [address] [place] [address] Dr. Alesia Meyers EGFR-AF PANAMANIAN >60 Normal >=60 [facility] Comment on above: Performed By: #### F T4 #### [facility] [address] [place] [address] Dr. Alesia Meyers EGFR-NON AF PANAMANIAN >60 Normal >=60 [facility] Comment on above: Performed By: #### F T4 #### [facility] [address] [address] [address] Alesia Meyers Globulin (S) [Mass/Vol] 3.3 g/dL Normal [facility] Comment on above: Performed By: #### F T4 #### [facility] [address] [place] [address] Dr. Alesia Meyers Glucose [Mass/Vol] 104 mg/dL Normal 74-106 [facility] Comment on above: Performed By: #### F T4 #### [facility] [address] [address] [address] Alesia Meyers Potassium [Moles/Vol] 3.8 mmol/L Normal 3.5-5.1 [facility] Comment on above: Performed By: #### F T4 #### [facility] [address] [address] [address] Alesia Meyers Protein [Mass/Vol] 6.8 g/dL Normal 6.4-8.2 [facility] Comment on above: Performed By: #### F T4 #### [facility] [address] [address] [address] Alesia Meyers Sodium [Moles/Vol] 143 mmol/L Normal 136-145 [facility] Comment on above: Performed By: #### F T4 #### [facility] [address] [place] [address] Dr. Alesia Meyers Urea nitrogen [Mass/Vol] 19.0 mg/dL Critically high 7.0-18.0 [facility] Comment on above: Performed By: #### F T4 #### [facility] [address] [address] [address] Alesia Meyers Urea nitrogen/Creatinine [Mass ratio] 21.6 mg/mg Normal [facility] Comment on above: Performed By: #### F T4 #### [facility] [address] [address] [address] Alesia Meyers TSHon 10-03-2022 TSH 3.819 uIU/mL Critically high 0.358-3.74 0 [facility] Comment on above: Performed By: #### F T4 #### [facility] [address] [place] [address] Dr. Alesia Meyers ACTH, PLASMAon 09-06-2022 ACTH, Plasma 6.3 pg/mL Critically low 7.2-63.3 [facility] Comment on above: Result Comment: ACTH reference interval for samples collected between 7 and 10 AM. Performed By: #### T SH, CMP, LDH #### [facility] [address] [address] [address] Alesia Meyers CBC AUTO DIFFon 09-05-2022 BASO # 0.0 103/ul Normal 0.0-0.1 [facility] Comment on above: Performed By: #### T SH, CMP, LDH #### [facility] [address] [place] [address] Dr. Alesia Meyers Basophils/100 WBC (Bld) 0.3 % Normal 0.2-2.0 [facility] Comment on above: Performed By: #### T SH, CMP, LDH #### [facility] [address] [place] [address] Dr. Alesia Meyers EO # 0.1 103/ul Normal 0.0-0.7 [facility] Comment on above: Performed By: #### T SH, CMP, LDH #### [facility] [address] [place] [address] Dr. Alesia Meyers Eosinophils/100 WBC (Bld) 0.6 % Critically low 0.9-7.0 [facility] Comment on above: Performed By: #### T SH, CMP, LDH #### [facility] [address] [place] [address] Dr. Alesia Meyers Erythrocyte distribution width (RBC) [Ratio] 14.4 % Normal 11.0-15.0 [facility] Comment on above: Performed By: #### T SH, CMP, LDH #### [facility] [address] [place] [address] Dr. Alesia Meyers Hematocrit (Bld) [Volume fraction] 41.6 % Normal 36.0-48.0 [facility] Comment on above: Performed By: #### T SH, CMP, LDH #### [facility] [address] [place] [address] Dr. Alesia Meyers Hemoglobin (Bld) [Mass/Vol] 13.7 g/dL Normal 12.0-16.0 [facility] Comment on above: Performed By: #### T SH, CMP, LDH #### [facility] [address] [place] [address] Dr. Alesia Meyers IG # 0.14 10e3/ul Critically high 0.00-0.03 [facility] Comment on above: Performed By: #### T SH, CMP, LDH #### [facility] [address] [place] [address] Dr. Alesia Meyers IG % 1.6 % Critically high 0.0-0.5 [facility] Comment on above: Performed By: #### T SH, CMP, LDH #### [facility] [address] [place] [address] Dr. Alesia Meyers LYMPH # 2.7 103/ul Normal 1.2-3.8 [facility] Comment on above: Performed By: #### T SH, CMP, LDH #### [facility] [address] [place] [address] Dr. Alesia Meyers Lymphocytes/100 WBC (Bld) 30.2 % Normal 20.5-60.0 [facility] Comment on above: Performed By: #### T SH, CMP, LDH #### [facility] [address] [place] [address] Dr. Alesia Meyers MANUAL DIFF REQ NO Normal [facility] Comment on above: Performed By: #### T SH, CMP, LDH #### [facility] [address] [place] [address] Dr. Alesia Meyers MCH (RBC) [Entitic mass] 28.7 pg Normal 26.7-34.0 [facility] Comment on above: Performed By: #### T SH, CMP, LDH #### [facility] [address] [place] [address] Dr. Alesia Meyers MCHC (RBC) [Mass/Vol] 32.9 g/dL Normal 29.9-35.2 [facility] Comment on above: Performed By: #### T SH, CMP, LDH #### [facility] [address] [place] [address] Dr. Alesia Meyers MCV (RBC) [Entitic vol] 87.2 fL Normal 81.0-99.0 [facility] Comment on above: Performed By: #### T SH, CMP, LDH #### [facility] [address] [place] [address] Dr. Alesia Meyers MONO # 1.0 103/ul Critically high 0.3-0.8 [facility] Comment on above: Performed By: #### T SH, CMP, LDH #### [facility] [address] [address] [address] Alesia Meyers Monocytes/100 WBC (Bld) 10.8 % Normal 1.7-12.0 [facility] Comment on above: Performed By: #### T SH, CMP, LDH #### [facility] [address] [place] [address] Dr. Alesia Meyers NEUT # 5.0 103/ul Normal 1.4-6.5 [facility] Comment on above: Performed By: #### T SH, CMP, LDH #### [facility] [address] [place] [address] Dr. Alesia Meyers Neutrophils/100 WBC (Bld) 56.5 % Normal 43.0-75.0 [facility] Comment on above: Performed By: #### T SH, CMP, LDH #### [facility] [address] [place] [address] Dr. Alesia Meyers Platelet mean volume (Bld) [Entitic vol] 9.1 fL Critically low 9.5-13.5 [facility] Comment on above: Performed By: #### T SH, CMP, LDH #### [facility] [address] [place] [address] Dr. Alesia Meyers PLT 217 103/ul Normal 150-450 [facility] Comment on above: Performed By: #### T SH, CMP, LDH #### [facility] [address] [place] [address] Dr. Alesia Meyers RBC 4.77 106/ul Normal 4.20-5.40 [facility] Comment on above: Performed By: #### T SH, CMP, LDH #### [facility] [address] [place] [address] Dr. Alesia Meyers WBC 8.8 103/ul Normal 4.0-11.0 [facility] Comment on above: Performed By: #### T SH, CMP, LDH #### [facility] [address] [place] [address] Dr. Alesia Meyers FREE T4on 09-05-2022 Free T4 [Mass/Vol] 1.22 ng/dL Normal 0.76-1.46 [facility] Comment on above: Performed By: #### F T4 #### [facility] [address] [place] [address] Dr. Alesia Meyers LDHon 09-05-2022 LDH 212 U/L Normal 81-234 [facility] Comment on above: Performed By: #### T SH, CMP, LDH #### [facility] [address] [place] [address] Dr. Alesia Meyers PROF 14(COMP METB)on 023 Albumin [Mass/Vol] 3.4 g/dL Normal 3.4-5.0 [facility] Comment on above: Performed By: #### T SH, CMP, LDH #### [facility] [address] [place] [address] Dr. Alesia Meyers Albumin/Globulin [Mass ratio] 1.1 {ratio} Normal [facility] Comment on above: Performed By: #### T SH, CMP, LDH #### [facility] [address] [place] [address] Dr. Alesia Meyers ALP [Catalytic activity/Vol] 101 U/L Normal 46-116 [facility] Comment on above: Performed By: #### T SH, CMP, LDH #### [facility] [address] [place] [address] Dr. Alesia Meyers ALT [Catalytic activity/Vol] 40 U/L Normal 14-59 [facility] Comment on above: Performed By: #### T SH, CMP, LDH #### [facility] [address] [place] [address] Dr. Alesia Meyers Anion gap [Moles/Vol] 10.7 mmol/L Normal [facility] Comment on above: Performed By: #### T SH, CMP, LDH #### [facility] [address] [place] [address] Dr. Alesia Meyers AST [Catalytic activity/Vol] 25 U/L Normal 15-37 [facility] Comment on above: Performed By: #### T SH, CMP, LDH #### [facility] [address] [address] [address] Alesia Meyers Bilirubin [Mass/Vol] 0.4 mg/dL Normal 0.2-1.0 [facility] Comment on above: Performed By: #### T SH, CMP, LDH #### [facility] [address] [address] [address] Alesia Meyers Calcium [Mass/Vol] 8.7 mg/dL Normal 8.5-10.1 [facility] Comment on above: Performed By: #### T SH, CMP, LDH #### [facility] [address] [address] [address] Alesia Meyers Chloride [Moles/Vol] 105 mmol/L Normal 98-107 [facility] Comment on above: Performed By: #### T SH, CMP, LDH #### [facility] [address] [place] [address] Dr. Alesia Meyers CO2 [Moles/Vol] 30.0 mmol/L Normal 21.0-32.0 [facility] Comment on above: Performed By: #### T SH, CMP, LDH #### [facility] [address] [place] [address] Dr. Alesia Meyers Creatinine [Mass/Vol] 0.83 mg/dL Normal 0.55-1.02 [facility] Comment on above: Performed By: #### T SH, CMP, LDH #### [facility] [address] [place] [address] Dr. Alesia Meyers EGFR-AF PANAMANIAN >60 Normal >=60 [facility] Comment on above: Performed By: #### T SH, CMP, LDH #### [facility] [address] [place] [address] Dr. Alesia Meyers EGFR-NON AF PANAMANIAN >60 Normal >=60 [facility] Comment on above: Performed By: #### T SH, CMP, LDH #### [facility] [address] [place] [address] Dr. Alesia Meyers Globulin (S) [Mass/Vol] 3.2 g/dL Normal [facility] Comment on above: Performed By: #### T SH, CMP, LDH #### [facility] [address] [place] [address] Dr. Alesia Meyers Glucose [Mass/Vol] 96 mg/dL Normal 74-106 [facility] Comment on above: Performed By: #### T SH, CMP, LDH #### [facility] [address] [place] [address] Dr. Alesia Meyers Potassium [Moles/Vol] 3.7 mmol/L Normal 3.5-5.1 [facility] Comment on above: Performed By: #### T SH, CMP, LDH #### [facility] [address] [place] [address] Dr. Alesia Meyers Protein [Mass/Vol] 6.6 g/dL Normal 6.4-8.2 [facility] Comment on above: Performed By: #### T SH, CMP, LDH #### [facility] [address] [place] [address] Dr. Alesia Meyers Sodium [Moles/Vol] 142 mmol/L Normal 136-145 [facility] Comment on above: Performed By: #### T SH, CMP, LDH #### [facility] [address] [place] [address] Dr. Alesia Meyers Urea nitrogen [Mass/Vol] 29.0 mg/dL Critically high 7.0-18.0 [facility] Comment on above: Performed By: #### T SH, CMP, LDH #### [facility] [address] [place] [address] Dr. Alesia Meyers Urea nitrogen/Creatinine [Mass ratio] 34.9 mg/mg Normal [facility] Comment on above: Performed By: #### T SH, CMP, LDH #### [facility] [address] [place] [address] Dr. Alesia Meyers TSHon 09-05-2022 TSH 3.372 uIU/mL Normal 0.358-3.74 0 [facility] Comment on above: Performed By: #### T SH, CMP, LDH #### [facility] [address] [place] [address] Dr. Alesia Meyers Albumin [Mass/volume] in Ser um or PlasmaOrdered By: Sly Benson on 08-08-2022 Albumin [Mass/Vol] 4.0 g/dL 3.2-5.5 [facility] Basophils Auto (Bld) [#/Vol] Ordered By: Sly Benson on 08-08-2022 Basophils (Bld) [#/Vol] 0.1 10*3/uL 0.0-0.2 [facility] Basophils/100 WBC Auto (Bld) Ordered By: Sly Benson on 08-08-2022 Basophils/100 WBC (Bld) 0.7 % . [facility] Creatinine and Glomerular fi ltration rate.predicted panel (S/P/Bld)Ordered By: Sly Benson on 08-08-2022 Creatinine [Mass/Vol] 0.93 mg/dL 0.44-1.03 [facility] Direct bilirubin measurement Ordered By: Sly Benson on 08-08-2022 Bilirubin.direct [Mass/Vol] mg/dL 0.0-0.4 [facility] Eosinophils Auto (Bld) [#/Vo l]Ordered By: Sly Benson on 08-08-2022 Eosinophils (Bld) [#/Vol] 0.2 10*3/uL 0.0-0.45 [facility] Eosinophils/100 WBC Auto (Bl d)Ordered By: Sly Benson on 08-08-2022 Eosinophils/100 WBC (Bld) 2.1 % . [facility] Erythrocyte distribution wid th Auto (RBC) [Ratio]Ordered By: Sly Benson on 08-08-2022 Erythrocyte distribution width (RBC) [Ratio] 14.7 % 11.9-15.3 [facility] Estimated glomerular filtrat ion rate (GFR) non- AmericanOrdered By: Sly Benson on 08-08-2022 GFR/1.73 sq M.predicted among non-blacks MDRD (S/P/Bld) [Vol rate/Area] 59 mL/Min [facility] Globulin Calc (S) [Mass/Vol] Ordered By: Sly Benson on 08-08-2022 Globulin (S) [Mass/Vol] 3.1 g/dL [facility] Hematocrit Auto (Bld) [Volum e fraction]Ordered By: lSy Benson on 08-08-2022 Hematocrit (Bld) [Volume fraction] 42.9 % 34.0-46.4 [facility] Hemoglobin [Mass/volume] in BloodOrdered By: Sly Benson on 08-08-2022 Hemoglobin (Bld) [Mass/Vol] 14.4 g/dL 11.8-15.4 [facility] - Chemistry and C hemistry - challengeOrdered By: Sly Benson on 08-08-2022 Lipase [Catalytic activity/Vol] 33.0 U/L 22-51 [facility] Lactate dehydrogenase measur ement (enzymatic activity/volume)Ordered By: Sly Benson on 08-08-2022 LDH (Unsp spec) [Catalytic activity/Vol] 209 U/L 45-190 [facility] Leukocytes [#/volume] correc margot for nucleated erythrocytes in Blood by Automated counOrdered By: Sly Benson on 08-08-2022 WBC corrected for nucl RBC Auto (Bld) [#/Vol] 7.6 10*3/uL 3.8-11.6 [facility] Lymphocytes Auto (Bld) [#/Vo l]Ordered By: Sly Benson on 08-08-2022 Lymphocytes (Bld) [#/Vol] 2.2 10*3/uL 1.00-4.8 [facility] Lymphocytes/100 WBC Auto (Bl d)Ordered By: Sly Benson on 08-08-2022 Lymphocytes/100 WBC (Bld) 29.6 % . [facility] MCH Auto (RBC) [Entitic mass ]Ordered By: Sly Benson on 08-08-2022 MCH (RBC) [Entitic mass] 29.0 pg 24.7-34.3 [facility] MCHC Auto (RBC) [Mass/Vol]Or dered By: Sly Benson on 08-08-2022 MCHC (RBC) [Mass/Vol] 33.6 g/dL 32.0-35.0 [facility] MCV Auto (RBC) [Entitic vol] Ordered By: Sly Benson on 08-08-2022 MCV (RBC) [Entitic vol] 86.1 fL 80-100 [facility] Monocytes Auto (Bld) [#/Vol] Ordered By: Sly Benson on 08-08-2022 Monocytes (Bld) [#/Vol] 0.7 10*3/uL 0.0-0.8 [facility] Monocytes/100 WBC Auto (Bld) Ordered By: Sly Benson on 08-08-2022 Monocytes/100 WBC (Bld) 9.0 % . [facility] Neutrophils Auto (Bld) [#/Vo l]Ordered By: Sly Benson on 08-08-2022 Neutrophils (Bld) [#/Vol] 4.4 10*3/uL 1.8-7.7 [facility] Neutrophils/100 WBC Auto (Bl d)Ordered By: Sly Benson on 08-08-2022 Neutrophils/100 WBC (Bld) 58.6 % . [facility] No Panel InformationOrdered By: Sly Benson on 08-08-2022 Adrenocorticotropic Hormone 35.2 pg/mL 7.2-63.3 [facility] Comment on above: ACTH reference inter jamel for samples collected between 7 and10 AM.Performed at: [facility] [address] [id number] Director: Coleman Lacy PhD, Phone: [phone] Estimated GFR () > 60 mL/Min [facility] Comment on above: GFR estimated refere nce range: According to KDOQI guidelines, <60 ml/min/1.73m2 is sufficient to diagnose a patient with chronic kidney disease. Pharmacy Creatinine Clearance (Chem 55.32 [facility] Nucleated erythrocytes [Pres ence] in Blood by Automated countOrdered By: Sly Benson on 08-08-2022 Nucleated RBC Auto Ql (Bld) 0.1 /100{WBC} 0-0.5 [facility] Platelet mean volume Auto (B ld) [Entitic vol]Ordered By: Sly Benson on 08-08-2022 Platelet mean volume (Bld) [Entitic vol] 7.5 fL 6.3-10.7 [facility] Platelets Auto (Bld) [#/Vol] Ordered By: Sly Benson on 08-08-2022 Platelets (Bld) [#/Vol] 216 10*3/uL 150-450 [facility] Protein [Mass/volume] in Ser um or PlasmaOrdered By: Sly Benson on 08-08-2022 Protein [Mass/Vol] 7.1 g/dL 6.1-7.9 [facility] RBC Auto (Bld) [#/Vol]Ordere d By: Sly Benson on 08-08-2022 RBC (Bld) [#/Vol] 4.98 10*6/uL 3.60-5.00 [facility] Random cortisol measurementO rdered By: Sly Benson on 08-08-2022 Cortisol [Mass/Vol] 11.8 ug/dL [facility] Comment on above: Reference range: AM 6 - 24 ug/dl PM <10 ug/dl Serum or plasma alanine castro otransferase measurement without P-5'-P (enzymatic activiOrdered By: Sly Benson on 08-08-2022 ALT No additional P-5'-P [Catalytic activity/Vol] 32 U/L 10-60 [facility] Serum or plasma albumin/glob ulin mass ratioOrdered By: Sly Benson on 08-08-2022 Albumin/Globulin [Mass ratio] 1.3 {ratio} [facility] Serum or plasma alkaline halle sphatase measurement (enzymatic activity/volume)Ordered By: Sly Benson on 08-08-2022 ALP [Catalytic activity/Vol] 99 U/L 32-92 [facility] Serum or plasma anion gap de terminationOrdered By: Sly Benson on 08-08-2022 Anion gap [Moles/Vol] 11.2 mmol/L 6.0-15.0 [facility] Serum or plasma aspartate am inotransferase measurement (enzymatic activity/volume)Ordered By: Sly Benson on 08-08-2022 AST [Catalytic activity/Vol] 34 U/L 10-42 [facility] Serum or plasma calcium diamond urement (mass/volume)Ordered By: Sly Benson on 08-08-2022 Calcium [Mass/Vol] 9.3 mg/dL 8.2-10.2 [facility] Serum or plasma chloride zora surement (moles/volume)Ordered By: Sly Benson on 08-08-2022 Chloride [Moles/Vol] 102 mmol/L 95-114 [facility] Serum or plasma glucose diamond urement (mass/volume)Ordered By: Sly Benson on 08-08-2022 Glucose [Mass/Vol] 101 mg/dL 70-100 [facility] Comment on above: ADA recommended refe rence rangeRandom Glucose Reference Range is dependent on time and content of last meal. Glucose of more than 200 mg/dL in a nonstressed, ambulatory subject supports the diagnosis of Diabetes Mellitus. Serum or plasma non-glucuron idated bilirubin measurement (mass/volume)Ordered By: Sly Benson on 08-08-2022 Bilirubin.indirect [Mass/Vol] TNP [facility] Comment on above: Test not performed Serum or plasma potassium me asurement (moles/volume)Ordered By: Sly Benson on 08-08-2022 Potassium [Moles/Vol] 3.3 mmol/L 3.5-5.1 [facility] Serum or plasma sodium measu rement (moles/volume)Ordered By: Sly Benson on 08-08-2022 Sodium [Moles/Vol] 139 mmol/L 136-146 [facility] Serum or plasma total biliru bin measurement (mass/volume)Ordered By: Sly Benson on 08-08-2022 Bilirubin [Mass/Vol] 0.7 mg/dL 0.3-1.2 [facility] Serum or plasma total carbon dioxide measurement (moles/volume)Ordered By: Sly Benson on 08-08-2022 CO2 [Moles/Vol] 29.1 mmol/L 22.0-30.0 [facility] Serum or plasma urea nitroge n measurement (mass/volume)Ordered By: Sly Benson on 08-08-2022 Urea nitrogen [Mass/Vol] 18 mg/dL 9-23 [facility] TSH DL <= 0.005 mIU/L QnOrde red By: Sly Benson on 08-08-2022 TSH Qn 2.80 m[IU]/L 0.45-5.33 [facility] Thyroxine (T4) free [Mass/vo lume] in Serum or PlasmaOrdered By: Sly Benson on 08-08-2022 Free T4 [Mass/Vol] 0.99 ng/dL 0.61-1.12 [facility] WBC Auto (Bld) [#/Vol]Ordere d By: Sly Benson on 08-08-2022 WBC (Bld) [#/Vol] 7.6 10*3/uL 3.8-11.6 [facility] ACTH, PLASMAon 07-22-2022 ACTH, Plasma 29.5 pg/mL Normal 7.2-63.3 [facility] Comment on above: Result Comment: ACTH reference interval for samples collected between 7 and 10 AM. Performed By: #### A CTHP #### [facility] [address] [place] [address] Dr. Alesia Meyers CORTISOLon 07-22-2022 Cortisol 10.0 ug/dL Normal [facility] Comment on above: Result Comment: Melvin isol AM 6.2 - 19.4 Cortisol PM 2.3 - 11.9 Performed By: #### T SH, CMP, LDH #### [facility] [address] [address] [address] Alesia Meyers CBC AUTO DIFFon 07-21-2022 BASO # 0.0 103/ul Normal 0.0-0.1 [facility] Comment on above: Performed By: #### T SH, CMP, LDH #### [facility] [address] [address] [address] Alesia Meyers Basophils/100 WBC (Bld) 0.6 % Normal 0.2-2.0 [facility] Comment on above: Performed By: #### T SH, CMP, LDH #### [facility] [address] [address] [address] Alesia Meyers EO # 0.1 103/ul Normal 0.0-0.7 [facility] Comment on above: Performed By: #### T SH, CMP, LDH #### [facility] [address] [place] [address] Dr. Alesia Meyers Eosinophils/100 WBC (Bld) 1.8 % Normal 0.9-7.0 [facility] Comment on above: Performed By: #### T SH, CMP, LDH #### [facility] [address] [place] [address] Dr. Alesia Meyers Erythrocyte distribution width (RBC) [Ratio] 13.2 % Normal 11.0-15.0 [facility] Comment on above: Performed By: #### T SH, CMP, LDH #### [facility] [address] [place] [address] Dr. Alesia Meyers Hematocrit (Bld) [Volume fraction] 40.4 % Normal 36.0-48.0 [facility] Comment on above: Performed By: #### T SH, CMP, LDH #### [facility] [address] [place] [address] Dr. Alesia Meyers Hemoglobin (Bld) [Mass/Vol] 14.1 g/dL Normal 12.0-16.0 [facility] Comment on above: Performed By: #### T SH, CMP, LDH #### [facility] [address] [place] [address] Dr. Alesia Meyers IG # 0.03 10e3/ul Normal 0.00-0.03 [facility] Comment on above: Performed By: #### T SH, CMP, LDH #### [facility] [address] [place] [address] Dr. Alesia Meyers IG % 0.4 % Normal 0.0-0.5 [facility] Comment on above: Performed By: #### T SH, CMP, LDH #### [facility] [address] [place] [address] Dr. Alesia Meyers LYMPH # 1.9 103/ul Normal 1.2-3.8 [facility] Comment on above: Performed By: #### T SH, CMP, LDH #### [facility] [address] [place] [address] Dr. Alesia Meyers Lymphocytes/100 WBC (Bld) 27.5 % Normal 20.5-60.0 [facility] Comment on above: Performed By: #### T SH, CMP, LDH #### [facility] [address] [place] [address] Dr. Alesia Meyers MANUAL DIFF REQ NO Normal [facility] Comment on above: Performed By: #### T SH, CMP, LDH #### [facility] [address] [place] [address] Dr. Alesia Meyers MCH (RBC) [Entitic mass] 28.4 pg Normal 26.7-34.0 [facility] Comment on above: Performed By: #### T SH, CMP, LDH #### [facility] [address] [place] [address] Dr. Alesia Meyers MCHC (RBC) [Mass/Vol] 34.9 g/dL Normal 29.9-35.2 [facility] Comment on above: Performed By: #### T SH, CMP, LDH #### [facility] [address] [place] [address] Dr. Alesia Meyers MCV (RBC) [Entitic vol] 81.5 fL Normal 81.0-99.0 [facility] Comment on above: Performed By: #### T SH, CMP, LDH #### [facility] [address] [place] [address] Dr. Alesia Meyers MONO # 0.3 103/ul Normal 0.3-0.8 [facility] Comment on above: Performed By: #### T SH, CMP, LDH #### [facility] [address] [place] [address] Dr. Alesia Meyers Monocytes/100 WBC (Bld) 4.9 % Normal 1.7-12.0 [facility] Comment on above: Performed By: #### T SH, CMP, LDH #### [facility] [address] [place] [address] Dr. Alesia Meyers NEUT # 4.4 103/ul Normal 1.4-6.5 [facility] Comment on above: Performed By: #### T SH, CMP, LDH #### [facility] [address] [address] [address] Alesia Meyers Neutrophils/100 WBC (Bld) 64.8 % Normal 43.0-75.0 [facility] Comment on above: Performed By: #### T SH, CMP, LDH #### [facility] [address] [address] [address] Alesia Meyers Platelet mean volume (Bld) [Entitic vol] 8.8 fL Critically low 9.5-13.5 [facility] Comment on above: Performed By: #### T SH, CMP, LDH #### [facility] [address] [address] [address] Alesia Meyers PLT 214 103/ul Normal 150-450 [facility] Comment on above: Performed By: #### T SH, CMP, LDH #### [facility] [address] [place] [address] Dr. Alesia Meyers RBC 4.96 106/ul Normal 4.20-5.40 [facility] Comment on above: Performed By: #### T SH, CMP, LDH #### [facility] [address] [address] [address] Alesia Meyers WBC 6.8 103/ul Normal 4.0-11.0 [facility] Comment on above: Performed By: #### T SH, CMP, LDH #### [facility] [address] [address] [address] Alesia Meyers FREE T4on 07-21-2022 Free T4 [Mass/Vol] 1.06 ng/dL Normal 0.76-1.46 [facility] Comment on above: Performed By: #### T SH, CMP, LDH #### [facility] [address] [address] [address] Alesia Meyers LDHon 07-21-2022 LDH 243 U/L Critically high 81-234 [facility] Comment on above: Performed By: #### T SH, CMP, LDH #### [facility] [address] [address] [address] Alesia Meyers LIPASEon 07-21-2022 Lipase [Catalytic activity/Vol] 73.0 U/L Normal 73.0-393.0 [facility] Comment on above: Performed By: #### T SH, CMP, LDH #### [facility] [address] [address] [address] Alesia Meyers LIVER PROFILEon 07-21-2022 Albumin [Mass/Vol] 3.5 g/dL Normal 3.4-5.0 [facility] Comment on above: Performed By: #### T SH, CMP, LDH #### [facility] [address] [place] [address] Dr. Alesia Meyers Albumin/Globulin [Mass ratio] 0.9 {ratio} Normal [facility] Comment on above: Performed By: #### T SH, CMP, LDH #### [facility] [address] [place] [address] Dr. Alesia Meyers ALP [Catalytic activity/Vol] 130 U/L Critically high 46-116 [facility] Comment on above: Performed By: #### T SH, CMP, LDH #### [facility] [address] [place] [address] Dr. Alesia Meyers ALT [Catalytic activity/Vol] 35 U/L Normal 14-59 [facility] Comment on above: Performed By: #### T SH, CMP, LDH #### [facility] [address] [place] [address] Dr. Alesia Meyers AST [Catalytic activity/Vol] 37 U/L Normal 15-37 [facility] Comment on above: Performed By: #### T SH, CMP, LDH #### [facility] [address] [place] [address] Dr. Alesia Meyers BILI, CONJUGATED 0.1 mg/dL Normal 0.0-0.2 [facility] Comment on above: Performed By: #### T SH, CMP, LDH #### [facility] [address] [place] [address] Dr. Alesia Meyers Bilirubin [Mass/Vol] 0.4 mg/dL Normal 0.2-1.0 [facility] Comment on above: Performed By: #### T SH, CMP, LDH #### [facility] [address] [place] [address] Dr. Alesia Meyers Globulin (S) [Mass/Vol] 3.8 g/dL Normal [facility] Comment on above: Performed By: #### T SH, CMP, LDH #### [facility] [address] [place] [address] Dr. Alesia Meyers Protein [Mass/Vol] 7.3 g/dL Normal 6.4-8.2 [facility] Comment on above: Performed By: #### T SH, CMP, LDH #### [facility] [address] [place] [address] Dr. Alesia Meyers PROF CHEM 8 (BAS METB)on Anion gap [Moles/Vol] 12.1 mmol/L Normal [facility] Comment on above: Performed By: #### T SH, CMP, LDH #### [facility] [address] [place] [address] Dr. Alesia Meyers Calcium [Mass/Vol] 9.2 mg/dL Normal 8.5-10.1 [facility] Comment on above: Performed By: #### T SH, CMP, LDH #### [facility] [address] [place] [address] Dr. Alesia Meyers Chloride [Moles/Vol] 102 mmol/L Normal 98-107 [facility] Comment on above: Performed By: #### T SH, CMP, LDH #### [facility] [address] [place] [address] Dr. Alesia Meyers CO2 [Moles/Vol] 30.5 mmol/L Normal 21.0-32.0 [facility] Comment on above: Performed By: #### T SH, CMP, LDH #### [facility] [address] [place] [address] Dr. Alesia Meyers Creatinine [Mass/Vol] 0.87 mg/dL Normal 0.55-1.02 [facility] Comment on above: Performed By: #### T SH, CMP, LDH #### [facility] [address] [place] [address] Dr. Alesia Meyers EGFR-AF PANAMANIAN >60 Normal >=60 [facility] Comment on above: Performed By: #### T SH, CMP, LDH #### [facility] [address] [place] [address] Dr. Alesia Meyers EGFR-NON AF PANAMANIAN >60 Normal >=60 [facility] Comment on above: Performed By: #### T SH, CMP, LDH #### [facility] [address] [place] [address] Dr. Alesia Meyers Glucose [Mass/Vol] 178 mg/dL Critically high 74-106 [facility] Comment on above: Performed By: #### T SH, CMP, LDH #### [facility] [address] [place] [address] Dr. Alesia Meyers Potassium [Moles/Vol] 3.6 mmol/L Normal 3.5-5.1 [facility] Comment on above: Performed By: #### T SH, CMP, LDH #### [facility] [address] [place] [address] Dr. Alesia Meyers Sodium [Moles/Vol] 141 mmol/L Normal 136-145 [facility] Comment on above: Performed By: #### T SH, CMP, LDH #### [facility] [address] [place] [address] Dr. Alesia Meyers Urea nitrogen [Mass/Vol] 16.0 mg/dL Normal 7.0-18.0 [facility] Comment on above: Performed By: #### T SH, CMP, LDH #### [facility] [facility] [address] [place] [address] Dr. Alesia Meyers Urea nitrogen/Creatinine [Mass ratio] 18.4 mg/mg Normal [facility] Comment on above: Performed By: #### T SH, CMP, LDH #### [facility] [address] [place] [address] Dr. Alesia Meyers TSHon 07-21-2022 TSH 2.383 uIU/mL Normal 0.358-3.74 0 [facility] Comment on above: Performed By: #### T SH, CMP, LDH #### [facility] [address] [place] [address] Dr. Alesia Meyers ACTH, PLASMAon 06-21-2022 ACTH, Plasma 30.4 pg/mL Normal 7.2-63.3 [facility] Comment on above: Result Comment: ACTH reference interval for samples collected between 7 and 10 AM. Performed By: #### T SH, CMP, LDH #### [facility] [address] [place] [address] Dr. Alesia Meyers CORTISOLon 06-21-2022 Cortisol 16.9 ug/dL Normal [facility] Comment on above: Result Comment: Melvin isol AM 6.2 - 19.4 Cortisol PM 2.3 - 11.9 Performed By: #### C ORTISO #### [facility] [address] [place] [address] Dr. Alesia Meyers CBC AUTO DIFFon 06-20-2022 BASO # 0.0 103/ul Normal 0.0-0.1 [facility] Comment on above: Performed By: #### T SH, CMP, LDH #### [facility] [address] [place] [address] Dr. Alesia Meyers Basophils/100 WBC (Bld) 0.5 % Normal 0.2-2.0 [facility] Comment on above: Performed By: #### T SH, CMP, LDH #### [facility] [address] [place] [address] Dr. Alesia Meyers EO # 0.1 103/ul Normal 0.0-0.7 [facility] Comment on above: Performed By: #### T SH, CMP, LDH #### [facility] [address] [place] [address] Dr. Alesia Meyers Eosinophils/100 WBC (Bld) 2.1 % Normal 0.9-7.0 [facility] Comment on above: Performed By: #### T SH, CMP, LDH #### [facility] [address] [place] [address] Dr. Alesia Meyers Erythrocyte distribution width (RBC) [Ratio] 13.3 % Normal 11.0-15.0 [facility] Comment on above: Performed By: #### T SH, CMP, LDH #### [facility] [address] [place] [address] Dr. Alesia Meyers Hematocrit (Bld) [Volume fraction] 40.2 % Normal 36.0-48.0 [facility] Comment on above: Performed By: #### T SH, CMP, LDH #### [facility] [address] [place] [address] Dr. Alesia Meyers Hemoglobin (Bld) [Mass/Vol] 13.5 g/dL Normal 12.0-16.0 [facility] Comment on above: Performed By: #### T SH, CMP, LDH #### [facility] [address] [place] [address] Dr. Alesia Meyers IG # 0.02 10e3/ul Normal 0.00-0.03 [facility] Comment on above: Performed By: #### T SH, CMP, LDH #### [facility] [address] [place] [address] Dr. Alesia Meyers IG % 0.3 % Normal 0.0-0.5 [facility] Comment on above: Performed By: #### T SH, CMP, LDH #### [facility] [address] [place] [address] Dr. Alesia Meyers LYMPH # 2.3 103/ul Normal 1.2-3.8 [facility] Comment on above: Performed By: #### T SH, CMP, LDH #### [facility] [address] [place] [address] Dr. Alesia Meyers Lymphocytes/100 WBC (Bld) 35.0 % Normal 20.5-60.0 [facility] Comment on above: Performed By: #### T SH, CMP, LDH #### [facility] [address] [place] [address] Dr. Alesia Meyers MANUAL DIFF REQ NO Normal [facility] Comment on above: Performed By: #### T SH, CMP, LDH #### [facility] [address] [place] [address] Dr. Alesia Meyers MCH (RBC) [Entitic mass] 29.3 pg Normal 26.7-34.0 [facility] Comment on above: Performed By: #### T SH, CMP, LDH #### [facility] [address] [place] [address] Dr. Alesia Meyers MCHC (RBC) [Mass/Vol] 33.6 g/dL Normal 29.9-35.2 [facility] Comment on above: Performed By: #### T SH, CMP, LDH #### [facility] [address] [place] [address] Dr. Alesia Meyers MCV (RBC) [Entitic vol] 87.2 fL Normal 81.0-99.0 [facility] Comment on above: Performed By: #### T SH, CMP, LDH #### [facility] [address] [place] [address] Dr. Alesia Meyers MONO # 0.6 103/ul Normal 0.3-0.8 [facility] Comment on above: Performed By: #### T SH, CMP, LDH #### [facility] [address] [place] [address] Dr. Alesia Meyers Monocytes/100 WBC (Bld) 8.8 % Normal 1.7-12.0 [facility] Comment on above: Performed By: #### T SH, CMP, LDH #### [facility] [address] [place] [address] Dr. Alesia Meyers NEUT # 3.5 103/ul Normal 1.4-6.5 [facility] Comment on above: Performed By: #### T SH, CMP, LDH #### [facility] [address] [place] [address] Dr. Alesia Meyers Neutrophils/100 WBC (Bld) 53.3 % Normal 43.0-75.0 [facility] Comment on above: Performed By: #### T SH, CMP, LDH #### [facility] [address] [place] [address] Dr. Alesia Meyers Platelet mean volume (Bld) [Entitic vol] 9.0 fL Critically low 9.5-13.5 [facility] Comment on above: Performed By: #### T SH, CMP, LDH #### [facility] [address] [place] [address] Dr. Alesia Meyers PLT 230 103/ul Normal 150-450 [facility] Comment on above: Performed By: #### T SH, CMP, LDH #### [facility] [address] [place] [address] Dr. Alesia Meyers RBC 4.61 106/ul Normal 4.20-5.40 [facility] Comment on above: Performed By: #### T SH, CMP, LDH #### [facility] [address] [address] [address] Alesia Meyers WBC 6.6 103/ul Normal 4.0-11.0 [facility] Comment on above: Performed By: #### T SH, CMP, LDH #### [facility] [address] [place] [address] Dr. Alesia Meyers FREE T4on 06-20-2022 Free T4 [Mass/Vol] 1.15 ng/dL Normal 0.76-1.46 [facility] Comment on above: Performed By: #### T SH, CMP, LDH #### [facility] [address] [place] [address] Dr. Alesia Meyers LDHon 06-20-2022 LDH 224 U/L Normal 81-234 [facility] Comment on above: Performed By: #### T SH, CMP, LDH #### [facility] [address] [place] [address] Dr. Alesia Meyers LIPASEon 06-20-2022 Lipase [Catalytic activity/Vol] 78.0 U/L Normal 73.0-393.0 [facility] Comment on above: Performed By: #### T SH, CMP, LDH #### [facility] [address] [place] [address] Dr. Alesia Meyers LIPID PROFILEon 06-20-2022 CHOL-HDL RATIO NORM SEE BELOW Normal [facility] Comment on above: Result Comment: 3.3 - 4.4 LOW RISK 4.4 - 7.1 AVERAGE RISK 7.1 - 11.0 MODERATE RISK >11.0 HIGH RISK Performed By: #### T SH, CMP, LDH #### [facility] [address] [place] [address] Dr. Alesia Meyers Cholesterol [Mass/Vol] 153 mg/dL Normal <=200 [facility] Comment on above: Performed By: #### T SH, CMP, LDH #### [facility] [address] [address] [address] Alesia Meyers Cholesterol in HDL [Mass/Vol] 80 mg/dL Critically high 40-60 [facility] Comment on above: Performed By: #### T SH, CMP, LDH #### [facility] [address] [address] [address] Alesia Meyers Cholesterol in LDL [Mass/Vol] 52.8 mg/dL Normal [facility] Comment on above: Performed By: #### T SH, CMP, LDH #### [facility] [address] [address] [address] Alesia Meyers Cholesterol.total/Chol esterol in HDL [Mass ratio] 1.9 {ratio} Normal [facility] Comment on above: Performed By: #### T SH, CMP, LDH #### [facility] [address] [address] [address] Alesia Meyers HDL NORMAL > or = 60 mg/dl - LO W CARDIOVASCULAR RISK <40 mg/dl - HIGH CARDIOVASCULAR RISK Normal [facility] Comment on above: Performed By: #### T SH, CMP, LDH #### [facility] [address] [address] [address] Alesia Meyers LDL CALC NORMAL SEE BELOW Normal [facility] Comment on above: Result Comment: <100 mg/dl OPTIMAL 100 - 129 mg/dl NEAR OR ABOVE OPTIMAL 130 - 159 mg/dl BORDERLINE HIGH 160 - 189 mg/dl HIGH >190 mg/dl VERY HIGH Performed By: #### T SH, CMP, LDH #### [facility] [address] [address] [address] Alesia Meyers Triglyceride [Mass/Vol] 101 mg/dL Normal <=150 [facility] Comment on above: Performed By: #### T SH, CMP, LDH #### [facility] [address] [address] [address] Alesia Meyers VLDL CALC 20.2 mg/dL Normal [facility] Comment on above: Performed By: #### T SH, CMP, LDH #### [facility] [address] [address] [address] Alesia Meyers LIVER PROFILEon 06-20-2022 Albumin [Mass/Vol] 3.5 g/dL Normal 3.4-5.0 [facility] Comment on above: Performed By: #### T SH, CMP, LDH #### [facility] [address] [place] [address] Dr. Alesia Meyers Albumin/Globulin [Mass ratio] 0.9 {ratio} Normal [facility] Comment on above: Performed By: #### T SH, CMP, LDH #### [facility] [address] [place] [address] Dr. Alesia Meyers ALP [Catalytic activity/Vol] 109 U/L Normal 46-116 [facility] Comment on above: Performed By: #### T SH, CMP, LDH #### [facility] [address] [place] [address] Dr. Alesia Meyers ALT [Catalytic activity/Vol] 39 U/L Normal 14-59 [facility] Comment on above: Performed By: #### T SH, CMP, LDH #### [facility] [address] [place] [address] Dr. Alesia Meyers AST [Catalytic activity/Vol] 34 U/L Normal 15-37 [facility] Comment on above: Performed By: #### T SH, CMP, LDH #### [facility] [address] [place] [address] Dr. Alesia Meyers BILI, CONJUGATED 0.1 mg/dL Normal 0.0-0.2 [facility] Comment on above: Performed By: #### T SH, CMP, LDH #### [facility] [address] [place] [address] Dr. Alesia Meyers Bilirubin [Mass/Vol] 0.4 mg/dL Normal 0.2-1.0 [facility] Comment on above: Performed By: #### T SH, CMP, LDH #### [facility] [address] [place] [address] Dr. Alesia Meyers Globulin (S) [Mass/Vol] 3.7 g/dL Normal [facility] Comment on above: Performed By: #### T SH, CMP, LDH #### [facility] [address] [place] [address] Dr. Alesia Meyers Protein [Mass/Vol] 7.2 g/dL Normal 6.4-8.2 [facility] Comment on above: Performed By: #### T SH, CMP, LDH #### [facility] [address] [place] [address] Dr. Alesia Meyers PROF CHEM 8 (BAS METB)on Anion gap [Moles/Vol] 11.4 mmol/L Normal [facility] Comment on above: Performed By: #### T SH, CMP, LDH #### [facility] [address] [place] [address] Dr. Alesia Meyers Calcium [Mass/Vol] 9.1 mg/dL Normal 8.5-10.1 [facility] Comment on above: Performed By: #### T SH, CMP, LDH #### [facility] [address] [place] [address] Dr. Alesia Meyers Chloride [Moles/Vol] 103 mmol/L Normal 98-107 [facility] Comment on above: Performed By: #### T SH, CMP, LDH #### [facility] [address] [place] [address] Dr. Alesia Meyers CO2 [Moles/Vol] 31.2 mmol/L Normal 21.0-32.0 [facility] Comment on above: Performed By: #### T SH, CMP, LDH #### [facility] [address] [place] [address] Dr. Alesia Meyers Creatinine [Mass/Vol] 0.90 mg/dL Normal 0.55-1.02 [facility] Comment on above: Performed By: #### T SH, CMP, LDH #### [facility] [address] [place] [address] Dr. Alesia Meyers EGFR-AF PANAMANIAN >60 Normal >=60 [facility] Comment on above: Performed By: #### T SH, CMP, LDH #### [facility] [address] [address] [address] Alesia Meyers EGFR-NON AF PANAMANIAN >60 Normal >=60 [facility] Comment on above: Performed By: #### T SH, CMP, LDH #### [facility] [address] [address] [address] Alesia Meyers Glucose [Mass/Vol] 105 mg/dL Normal 74-106 [facility] Comment on above: Performed By: #### T SH, CMP, LDH #### [facility] [address] [address] [address] Alesia Meyers Potassium [Moles/Vol] 3.6 mmol/L Normal 3.5-5.1 [facility] Comment on above: Performed By: #### T SH, CMP, LDH #### [facility] [address] [place] [address] Dr. Alesia Meyers Sodium [Moles/Vol] 142 mmol/L Normal 136-145 [facility] Comment on above: Performed By: #### T SH, CMP, LDH #### [facility] [address] [address] [address] Alesia Meyers Urea nitrogen [Mass/Vol] 22.0 mg/dL Critically high 7.0-18.0 [facility] Comment on above: Performed By: #### T SH, CMP, LDH #### [facility] [address] [place] [address] Dr. Alesia Meyers Urea nitrogen/Creatinine [Mass ratio] 24.4 mg/mg Normal [facility] Comment on above: Performed By: #### T SH, CMP, LDH #### [facility] [address] [place] [address] Dr. Alesia Meyers TSHon 06-20-2022 TSH 3.302 uIU/mL Normal 0.358-3.74 0 [facility] Comment on above: Performed By: #### T SH, CMP, LDH #### [facility] [address] [place] [address] Dr. Alesia Meyers ACTH, PLASMAon 05-31-2022 ACTH, Plasma 28.5 pg/mL Normal 7.2-63.3 [facility] Comment on above: Result Comment: ACTH reference interval for samples collected between 7 and 10 AM. Performed By: #### T SH, CMP, LDH #### [facility] [address] [place] [address] Dr. Alesia Meyers CORTISOLon 05-31-2022 Cortisol 17.2 ug/dL Normal [facility] Comment on above: Result Comment: Melvin isol AM 6.2 - 19.4 Cortisol PM 2.3 - 11.9 Performed By: #### T SH, CMP, LDH #### [facility] [address] [place] [address] Dr. Alesia Meyers CBC AUTO DIFFon 05-30-2022 BASO # 0.0 103/ul Normal 0.0-0.1 [facility] Comment on above: Performed By: #### T SH, CMP, LDH #### [facility] [address] [place] [address] Dr. Alesia Meyers Basophils/100 WBC (Bld) 0.4 % Normal 0.2-2.0 [facility] Comment on above: Performed By: #### T SH, CMP, LDH #### [facility] [address] [place] [address] Dr. Alesia Meyers EO # 0.1 103/ul Normal 0.0-0.7 [facility] Comment on above: Performed By: #### T SH, CMP, LDH #### [facility] [address] [place] [address] Dr. Alesia Meyers Eosinophils/100 WBC (Bld) 2.1 % Normal 0.9-7.0 [facility] Comment on above: Performed By: #### T SH, CMP, LDH #### [facility] [address] [place] [address] Dr. Alesia Meyers Erythrocyte distribution width (RBC) [Ratio] 12.9 % Normal 11.0-15.0 [facility] Comment on above: Performed By: #### T SH, CMP, LDH #### [facility] [address] [place] [address] Dr. Alesia Meyers Hematocrit (Bld) [Volume fraction] 41.0 % Normal 36.0-48.0 [facility] Comment on above: Performed By: #### T SH, CMP, LDH #### [facility] [address] [place] [address] Dr. Alesia Meyers Hemoglobin (Bld) [Mass/Vol] 13.5 g/dL Normal 12.0-16.0 [facility] Comment on above: Performed By: #### T SH, CMP, LDH #### [facility] [address] [place] [address] Dr. Alesia Meyers IG # 0.02 10e3/ul Normal 0.00-0.03 [facility] Comment on above: Performed By: #### T SH, CMP, LDH #### [facility] [address] [place] [address] Dr. Alesia Meyers IG % 0.3 % Normal 0.0-0.5 [facility] Comment on above: Performed By: #### T SH, CMP, LDH #### [facility] [address] [place] [address] Dr. Alesia Meyers LYMPH # 2.1 103/ul Normal 1.2-3.8 [facility] Comment on above: Performed By: #### T SH, CMP, LDH #### [facility] [address] [place] [address] Dr. Alesia Meyers Lymphocytes/100 WBC (Bld) 30.5 % Normal 20.5-60.0 [facility] Comment on above: Performed By: #### T SH, CMP, LDH #### [facility] [address] [place] [address] Dr. Alesia Meyers MANUAL DIFF REQ NO Normal [facility] Comment on above: Performed By: #### T SH, CMP, LDH #### [facility] [address] [place] [address] Dr. Alesia Meyers MCH (RBC) [Entitic mass] 28.6 pg Normal 26.7-34.0 [facility] Comment on above: Performed By: #### T SH, CMP, LDH #### [facility] [address] [address] [address] Alesia Meyers MCHC (RBC) [Mass/Vol] 32.9 g/dL Normal 29.9-35.2 [facility] Comment on above: Performed By: #### T SH, CMP, LDH #### [facility] [address] [place] [address] Dr. Alesia Meyers MCV (RBC) [Entitic vol] 86.9 fL Normal 81.0-99.0 [facility] Comment on above: Performed By: #### T SH, CMP, LDH #### [facility] [address] [place] [address] Dr. Alesia Meyers MONO # 0.5 103/ul Normal 0.3-0.8 [facility] Comment on above: Performed By: #### T SH, CMP, LDH #### [facility] [address] [place] [address] Dr. Alesia Meyers Monocytes/100 WBC (Bld) 7.8 % Normal 1.7-12.0 [facility] Comment on above: Performed By: #### T SH, CMP, LDH #### [facility] [address] [place] [address] Dr. Alesia Meyers NEUT # 4.0 103/ul Normal 1.4-6.5 [facility] Comment on above: Performed By: #### T SH, CMP, LDH #### [facility] [address] [place] [address] Dr. Alesia Meyers Neutrophils/100 WBC (Bld) 58.9 % Normal 43.0-75.0 [facility] Comment on above: Performed By: #### T SH, CMP, LDH #### [facility] [address] [place] [address] Dr. Alesia Meyers Platelet mean volume (Bld) [Entitic vol] 9.0 fL Critically low 9.5-13.5 [facility] Comment on above: Performed By: #### T SH, CMP, LDH #### [facility] [address] [place] [address] Dr. Alesia Meyers PLT 224 103/ul Normal 150-450 [facility] Comment on above: Performed By: #### T SH, CMP, LDH #### [facility] [address] [place] [address] Dr. Alesia Meyers RBC 4.72 106/ul Normal 4.20-5.40 [facility] Comment on above: Performed By: #### T SH, CMP, LDH #### [facility] [address] [place] [address] Dr. Alesia Meyers WBC 6.8 103/ul Normal 4.0-11.0 [facility] Comment on above: Performed By: #### T SH, CMP, LDH #### [facility] [address] [place] [address] Dr. Alesia Meyers FREE T4on 05-30-2022 Free T4 [Mass/Vol] 1.19 ng/dL Normal 0.76-1.46 [facility] Comment on above: Performed By: #### T SH, CMP, LDH #### [facility] [address] [place] [address] Dr. Alesia Meyers LDHon 05-30-2022 LDH 231 U/L Normal 81-234 [facility] Comment on above: Performed By: #### F T4 #### [facility] [address] [place] [address] Dr. Alesia Meyers LIPASEon 05-30-2022 Lipase [Catalytic activity/Vol] 76.0 U/L Normal 73.0-393.0 [facility] Comment on above: Performed By: #### F T4 #### [facility] [address] [place] [address] Dr. Alesia Meyers LIVER PROFILEon 05-30-2022 Albumin [Mass/Vol] 3.5 g/dL Normal 3.4-5.0 [facility] Comment on above: Performed By: #### F T4 #### [facility] [address] [place] [address] Dr. Alesia Meyers Albumin/Globulin [Mass ratio] 0.9 {ratio} Normal [facility] Comment on above: Performed By: #### F T4 #### [facility] [address] [place] [address] Dr. Alesia Meyers ALP [Catalytic activity/Vol] 128 U/L Critically high 46-116 [facility] Comment on above: Performed By: #### F T4 #### [facility] [address] [place] [address] Dr. Alesia Meyers ALT [Catalytic activity/Vol] 35 U/L Normal 14-59 [facility] Comment on above: Performed By: #### F T4 #### [facility] [address] [place] [address] Dr. Alesia Meyers AST [Catalytic activity/Vol] 25 U/L Normal 15-37 [facility] Comment on above: Performed By: #### F T4 #### [facility] [address] [place] [address] Dr. Alesia Meyers BILI, CONJUGATED 0.1 mg/dL Normal 0.0-0.2 [facility] Comment on above: Performed By: #### F T4 #### [facility] [address] [place] [address] Dr. Alesia Meyers Bilirubin [Mass/Vol] 0.4 mg/dL Normal 0.2-1.0 [facility] Comment on above: Performed By: #### F T4 #### [facility] [address] [place] [address] Dr. Alesia Meyers Globulin (S) [Mass/Vol] 3.7 g/dL Normal [facility] Comment on above: Performed By: #### F T4 #### [facility] [address] [place] [address] Dr. Alesia Meyers Protein [Mass/Vol] 7.2 g/dL Normal 6.4-8.2 [facility] Comment on above: Performed By: #### F T4 #### [facility] [address] [place] [address] Dr. Alesia Meyers PROF CHEM 8 (BAS METB)on Anion gap [Moles/Vol] 7.3 mmol/L Normal [facility] Comment on above: Performed By: #### F T4 #### [facility] [address] [place] [address] Dr. Alesia Meyers Calcium [Mass/Vol] 9.0 mg/dL Normal 8.5-10.1 [facility] Comment on above: Performed By: #### F T4 #### [facility] [address] [place] [address] Dr. Alesia Meyers Chloride [Moles/Vol] 102 mmol/L Normal 98-107 [facility] Comment on above: Performed By: #### F T4 #### [facility] [address] [address] [address] Alesia Meyers CO2 [Moles/Vol] 32.3 mmol/L Critically high 21.0-32.0 [facility] Comment on above: Performed By: #### F T4 #### [facility] [address] [place] [address] Dr. Alesia Meyers Creatinine [Mass/Vol] 0.94 mg/dL Normal 0.55-1.02 [facility] Comment on above: Performed By: #### F T4 #### [facility] [address] [address] [address] Alesia Meyers EGFR-AF PANAMANIAN >60 Normal >=60 [facility] Comment on above: Performed By: #### F T4 #### [facility] [address] [place] [address] Dr. Alesia Meyers EGFR-NON AF PANAMANIAN 58 mL/min/1.73m2 Critically low >=60 [facility] Comment on above: Performed By: #### F T4 #### [facility] [address] [place] [address] Dr. Alesia Meyers Glucose [Mass/Vol] 108 mg/dL Critically high 74-[address] [facility] Comment on above: Performed By: #### F T4 #### [facility] [address] [address] [address] Alesia Meyers Potassium [Moles/Vol] 3.6 mmol/L Normal 3.5-5.1 [facility] Comment on above: Performed By: #### F T4 #### [facility] [address] [place] [address] Dr. Alesia Meyers Sodium [Moles/Vol] 138 mmol/L Normal 136-145 [facility] Comment on above: Performed By: #### F T4 #### [facility] [address] [address] [address] Alesia Meyers Urea nitrogen [Mass/Vol] 24.0 mg/dL Critically high 7.0-18.0 [facility] Comment on above: Performed By: #### F T4 #### [facility] [address] [address] [address] Alesia Meyers Urea nitrogen/Creatinine [Mass ratio] 25.5 mg/mg Normal [facility] Comment on above: Performed By: #### F T4 #### [facility] [address] [address] [address] Alesia Meyers TSHon 05-30-2022 TSH 2.605 uIU/mL Normal 0.358-3.74 0 [facility] Comment on above: Performed By: #### F T4 #### [facility] [address] [address] [address] Alesia Meyers ACTH, PLASMAon 05-14-2022 ACTH, Plasma 17.0 pg/mL Normal 7.2-63.3 [facility] Comment on above: Result Comment: ACTH reference interval for samples collected between 7 and 10 AM. Performed By: #### A CTHP #### [facility] [address] [place] [address] Dr. Alesia Meyers ACTH, PLASMAon 05-12-2022 ACTH, Plasma WRORD Normal [facility] Comment on above: Result Comment: Test not performed. The required specimen for the test ordered was not received. received refrigerate plasma edta contacted Sheyla at your facility on 05-12-2022 ACTH reference interval for samples collected between 7 and 10 AM. Performed By: #### F T4 #### [facility] [address] [place] [address] Dr. Alesia Meyers Albumin [Mass/volume] in Ser um or PlasmaOrdered By: Sly Benson on 05-12-2022 Albumin [Mass/Vol] 3.5 g/dL 3.2-5.5 [facility] Direct bilirubin measurement Ordered By: Sly Benson on 05-12-2022 Bilirubin.direct [Mass/Vol] mg/dL 0.0-0.4 [facility] Globulin Calc (S) [Mass/Vol] Ordered By: Sly Benson on 05-12-2022 Globulin (S) [Mass/Vol] 3.0 g/dL [facility] - Chemistry and C hemistry - challengeOrdered By: Sly Benson on 05-12-2022 Lipase [Catalytic activity/Vol] 26.0 U/L 22-51 [facility] Lactate dehydrogenase measur ement (enzymatic activity/volume)Ordered By: Sly Benson on 05-12-2022 LDH (Unsp spec) [Catalytic activity/Vol] 199 U/L 45-190 [facility] No Panel InformationOrdered By: Sly Benson on 05-12-2022 Adrenocorticotropic Hormone 243.0 pg/mL 7.2-63.3 [facility] Comment on above: ACTH reference inter jamel for samples collected between 7 and10 AM.Performed at: [facility] [address] Director: Coleman Lacy PhD, Phone: [phone] Protein [Mass/volume] in Ser um or PlasmaOrdered By: Sly Benson on 05-12-2022 Protein [Mass/Vol] 6.5 g/dL 6.1-7.9 [facility] Random cortisol measurementO rdered By: Sly Benson on 05-12-2022 Cortisol [Mass/Vol] 14.6 ug/dL [facility] Comment on above: Reference range: AM 6 - 24 ug/dl PM <10 ug/dl Serum or plasma alanine castro otransferase measurement without P-5'-P (enzymatic activiOrdered By: Sly Benson on 05-12-2022 ALT No additional P-5'-P [Catalytic activity/Vol] 31 U/L 10-60 [facility] Serum or plasma albumin/glob ulin mass ratioOrdered By: Sly Benson on 05-12-2022 Albumin/Globulin [Mass ratio] 1.2 {ratio} [facility] Serum or plasma alkaline halle sphatase measurement (enzymatic activity/volume)Ordered By: Sly Benson on 05-12-2022 ALP [Catalytic activity/Vol] 112 U/L [facility] Serum or plasma aspartate am inotransferase measurement (enzymatic activity/volume)Ordered By: Sly Benson on 05-12-2022 AST [Catalytic activity/Vol] 33 U/L [facility] Serum or plasma non-glucuron idated bilirubin measurement (mass/volume)Ordered By: Sly Benson on 05-12-2022 Bilirubin.indirect [Mass/Vol] TNP [facility] Comment on above: Test not performed Serum or plasma total biliru bin measurement (mass/volume)Ordered By: Sly Benson on 05-12-2022 Bilirubin [Mass/Vol] 0.8 mg/dL 0.3-1.2 [facility] Thyroxine (T4) free [Mass/vo lume] in Serum or PlasmaOrdered By: Sly Benson on 05-12-2022 Free T4 [Mass/Vol] 1.17 ng/dL 0.61-1.12 [facility] CORTISOLon 05-11-2022 Cortisol 15.4 ug/dL Normal [facility] Comment on above: Result Comment: Melvin isol AM 6.2 - 19.4 Cortisol PM 2.3 - 11.9 Performed By: #### T SH, CMP, LDH #### [facility] [address] [place] [address] Dr. Alesia Meyers CBC AUTO DIFFon 05-10-2022 BASO # 0.0 103/ul Normal 0.0-0.1 [facility] Comment on above: Performed By: #### C BC #### [facility] [address] [address] [address] Alesia Meyers Basophils/100 WBC (Bld) 0.3 % Normal 0.2-2.0 [facility] Comment on above: Performed By: #### C BC #### [facility] [address] [place] [address] Dr. Alesia Meyers EO # 0.2 103/ul Normal 0.0-0.7 [facility] Comment on above: Performed By: #### C BC #### [facility] [address] [place] [address] Dr. Alesia Meyers Eosinophils/100 WBC (Bld) 2.5 % Normal 0.9-7.0 [facility] Comment on above: Performed By: #### C BC #### [facility] [address] [place] [address] Dr. Alesia Meyers Erythrocyte distribution width (RBC) [Ratio] 13.2 % Normal 11.0-15.0 [facility] Comment on above: Performed By: #### C BC #### [facility] [address] [place] [address] Dr. Alesia Meyers Hematocrit (Bld) [Volume fraction] 39.1 % Normal 36.0-48.0 [facility] Comment on above: Performed By: #### C BC #### [facility] [address] [place] [address] Dr. Alesia Meyers Hemoglobin (Bld) [Mass/Vol] 12.9 g/dL Normal 12.0-16.0 [facility] Comment on above: Performed By: #### C BC #### [facility] [address] [place] [address] Dr. Alesia Meyers IG # 0.01 10e3/ul Normal 0.00-0.03 [facility] Comment on above: Performed By: #### C BC #### [facility] [address] [place] [address] Dr. Alesia Meyers IG % 0.2 % Normal 0.0-0.5 [facility] Comment on above: Performed By: #### C BC #### [facility] [address] [place] [address] Dr. Alesia Meyers LYMPH # 1.9 103/ul Normal 1.2-3.8 [facility] Comment on above: Performed By: #### C BC #### [facility] [address] [place] [address] Dr. Alesia Meyers Lymphocytes/100 WBC (Bld) 32.2 % Normal 20.5-60.0 [facility] Comment on above: Performed By: #### C BC #### [facility] [address] [place] [address] Dr. Alesia Meyers MANUAL DIFF REQ NO Normal [facility] Comment on above: Performed By: #### C BC #### [facility] [address] [place] [address] Dr. Alesia Meyers MCH (RBC) [Entitic mass] 29.0 pg Normal 26.7-34.0 [facility] Comment on above: Performed By: #### C BC #### [facility] [address] [place] [address] Dr. Alesia Meyers MCHC (RBC) [Mass/Vol] 33.0 g/dL Normal 29.9-35.2 [facility] Comment on above: Performed By: #### C BC #### [facility] [address] [place] [address] Dr. Alesia Meyers MCV (RBC) [Entitic vol] 87.9 fL Normal 81.0-99.0 [facility] Comment on above: Performed By: #### C BC #### [facility] [address] [place] [address] Dr. Alesia Meyers MONO # 0.5 103/ul Normal 0.3-0.8 [facility] Comment on above: Performed By: #### C BC #### [facility] [address] [place] [address] Dr. Alesia Meyers Monocytes/100 WBC (Bld) 8.5 % Normal 1.7-12.0 [facility] Comment on above: Performed By: #### C BC #### [facility] [address] [place] [address] Dr. Alesia Meyers NEUT # 3.3 103/ul Normal 1.4-6.5 [facility] Comment on above: Performed By: #### C BC #### [facility] [address] [place] [address] Dr. Alesia Meyers Neutrophils/100 WBC (Bld) 56.3 % Normal 43.0-75.0 [facility] Comment on above: Performed By: #### C BC #### [facility] [address] [place] [address] Dr. Alesia Meyers Platelet mean volume (Bld) [Entitic vol] 9.6 fL Normal 9.5-13.5 [facility] Comment on above: Performed By: #### C BC #### [facility] [address] [place] [address] Dr. Alesia Meyers PLT 210 103/ul Normal 150-450 [facility] Comment on above: Performed By: #### C BC #### [facility] [address] [place] [address] Dr. Alesia Meyers RBC 4.45 106/ul Normal 4.20-5.40 [facility] Comment on above: Performed By: #### C BC #### [facility] [address] [place] [address] Dr. Alesia Meyers WBC 5.9 103/ul Normal 4.0-11.0 [facility] Comment on above: Performed By: #### C BC #### [facility] [address] [place] [address] Dr. Alesia Meyers FREE T4on 05-10-2022 Free T4 [Mass/Vol] 1.19 ng/dL Normal 0.76-1.46 [facility] Comment on above: Performed By: #### F T4 #### [facility] [address] [place] [address] Dr. Alesia Meyers LDHon 05-10-2022 LDH 252 U/L Critically high 81-234 [facility] Comment on above: Performed By: #### T SH, CMP, LDH #### [facility] [address] [place] [address] Dr. Alesia Meyers LIPASEon 05-10-2022 Lipase [Catalytic activity/Vol] 70.0 U/L Critically low 73.0-393.0 [facility] Comment on above: Performed By: #### T SH, CMP, LDH #### [facility] [address] [place] [address] Dr. Alesia Meyers LIVER PROFILEon 05-10-2022 Albumin [Mass/Vol] 3.3 g/dL Critically low 3.4-5.0 [facility] Comment on above: Performed By: #### T SH, CMP, LDH #### [facility] [address] [address] [address] Alesia Meyers Albumin/Globulin [Mass ratio] 0.9 {ratio} Normal [facility] Comment on above: Performed By: #### T SH, CMP, LDH #### [facility] [address] [address] [address] Alesia Meyers ALP [Catalytic activity/Vol] 129 U/L Critically high 46-116 [facility] Comment on above: Performed By: #### T SH, CMP, LDH #### [facility] [address] [address] [address] Alesia Meyers ALT [Catalytic activity/Vol] 35 U/L Normal 14-59 [facility] Comment on above: Performed By: #### T SH, CMP, LDH #### [facility] [address] [address] [address] Alesia Meyers AST [Catalytic activity/Vol] 36 U/L Normal 15-37 [facility] Comment on above: Performed By: #### T SH, CMP, LDH #### [facility] [address] [address] [address] Alesia Meyers BILI, CONJUGATED 0.1 mg/dL Normal 0.0-0.2 [facility] Comment on above: Performed By: #### T SH, CMP, LDH #### [facility] [address] [address] [address] Alesia Meyers Bilirubin [Mass/Vol] 0.4 mg/dL Normal 0.2-1.0 [facility] Comment on above: Performed By: #### T SH, CMP, LDH #### [facility] [address] [address] [address] Alesia Meyers Globulin (S) [Mass/Vol] 3.7 g/dL Normal [facility] Comment on above: Performed By: #### T SH, CMP, LDH #### [facility] [address] [address] [address] Alesia Meyers Protein [Mass/Vol] 7.0 g/dL Normal 6.4-8.2 [facility] Comment on above: Performed By: #### T SH, CMP, LDH #### [facility] [address] [place] [address] Dr. Alesia Meyers PROF CHEM 8 (BAS METB)on Anion gap [Moles/Vol] 11.7 mmol/L Normal [facility] Comment on above: Performed By: #### T SH, CMP, LDH #### [facility] [address] [place] [address] Dr. Alesia Meyers Calcium [Mass/Vol] 8.9 mg/dL Normal 8.5-10.1 [facility] Comment on above: Performed By: #### T SH, CMP, LDH #### [facility] [address] [place] [address] Dr. Alesia Meyers Chloride [Moles/Vol] 104 mmol/L Normal 98-107 [facility] Comment on above: Performed By: #### T SH, CMP, LDH #### [facility] [address] [place] [address] Dr. Alesia Meyers CO2 [Moles/Vol] 29.3 mmol/L Normal 21.0-32.0 [facility] Comment on above: Performed By: #### T SH, CMP, LDH #### [facility] [address] [place] [address] Dr. Alesia Meyers Creatinine [Mass/Vol] 0.84 mg/dL Normal 0.55-1.02 [facility] Comment on above: Performed By: #### T SH, CMP, LDH #### [facility] [address] [place] [address] Dr. Alesia Meyers EGFR-AF PANAMANIAN >60 Normal >=60 [facility] Comment on above: Performed By: #### T SH, CMP, LDH #### [facility] [address] [place] [address] Dr. Alesia Meyers EGFR-NON AF PANAMANIAN >60 Normal >=60 [facility] Comment on above: Performed By: #### T SH, CMP, LDH #### [facility] [address] [place] [address] Dr. Alesia Meyers Glucose [Mass/Vol] 109 mg/dL Critically high 74-106 [facility] Comment on above: Performed By: #### T SH, CMP, LDH #### [facility] [address] [address] [address] Alesia Meyers Potassium [Moles/Vol] 4.0 mmol/L Normal 3.5-5.1 [facility] Comment on above: Performed By: #### T SH, CMP, LDH #### [facility] [address] [address] [address] Alesia Meyers Sodium [Moles/Vol] 141 mmol/L Normal 136-145 [facility] Comment on above: Performed By: #### T SH, CMP, LDH #### [facility] [address] [place] [address] Dr. Alesia Meyers Urea nitrogen [Mass/Vol] 19.0 mg/dL Critically high 7.0-18.0 [facility] Comment on above: Performed By: #### T CURTIS, CMP, LDH #### [facility] [address] [address] [address] Alesia Meyers Urea nitrogen/Creatinine [Mass ratio] 22.6 mg/mg Normal [facility] Comment on above: Performed By: #### T SH, CMP, LDH #### [facility] [address] [place] [address] Dr. Alesia Meyers TSHon 05-10-2022 TSH 3.114 uIU/mL Normal 0.358-3.74 0 [facility] Comment on above: Performed By: #### T SH, CMP, LDH #### [facility] [address] [place] [address] Dr. Alesia Meyers Activated partial thrombopla stin time (aPTT) in platelet poor plasma by coagulation aOrdered By: Sly Benson on 04-28-2022 aPTT Coag (PPP) [Time] 28.1 s 25.1-36.5 [facility] Albumin [Mass/volume] in Ser um or PlasmaOrdered By: Sly Benson on 04-28-2022 Albumin [Mass/Vol] 3.5 g/dL 3.2-5.5 [facility] Basophils Auto (Bld) [#/Vol] Ordered By: Sly Benson on 04-28-2022 Basophils (Bld) [#/Vol] 0.0 10*3/uL 0.0-0.2 [facility] Basophils/100 WBC Auto (Bld) Ordered By: Sly Benson on 04-28-2022 Basophils/100 WBC (Bld) 0.5 % . [facility] Creatinine and Glomerular fi ltration rate.predicted panel (S/P/Bld)Ordered By: Sly Benson on 04-28-2022 Creatinine [Mass/Vol] 0.84 mg/dL 0.44-1.03 [facility] Eosinophils Auto (Bld) [#/Vo l]Ordered By: Sly Benson on 04-28-2022 Eosinophils (Bld) [#/Vol] 0.1 10*3/uL 0.0-0.45 [facility] Eosinophils/100 WBC Auto (Bl d)Ordered By: Sly Benson on 04-28-2022 Eosinophils/100 WBC (Bld) 1.1 % . [facility] Erythrocyte distribution wid th Auto (RBC) [Ratio]Ordered By: Sly Benson on 04-28-2022 Erythrocyte distribution width (RBC) [Ratio] 14.1 % 11.9-15.3 [facility] Erythrocyte sedimentation ra te by Photometric methodOrdered By: Sly Benson on 04-28-2022 ESR Photometric method (Bld) [Velocity] 31 mm/hr 0-29 [facility] Estimated glomerular filtrat ion rate (GFR) non- AmericanOrdered By: Sly Benson on 04-28-2022 GFR/1.73 sq M.predicted among non-blacks MDRD (S/P/Bld) [Vol rate/Area] > 60 mL/Min [facility] Globulin Calc (S) [Mass/Vol] Ordered By: Sly Benson on 04-28-2022 Globulin (S) [Mass/Vol] 2.9 g/dL [facility] Hematocrit Auto (Bld) [Volum e fraction]Ordered By: Sly Benson on 04-28-2022 Hematocrit (Bld) [Volume fraction] 40.5 % 34.0-46.4 [facility] Hemoglobin [Mass/volume] in BloodOrdered By: Sly Benson on 04-28-2022 Hemoglobin (Bld) [Mass/Vol] 13.6 g/dL 11.8-15.4 [facility] - CoagulationOrde red By: Sly Benson on 04-28-2022 PT Coag (PPP) [Time] 10.6 s 9.0-12.9 [facility] - Hematology and Cell countsOrdered By: Sly Benson on 04-28-2022 Nucleated RBC/100 WBC (Bld) [Ratio] 0.1 % 0-0.5 [facility] Leukocytes [#/volume] in Blo od by Automated countOrdered By: Sly Benson on 04-28-2022 WBC (Bld) [#/Vol] 6.9 10*3/uL 4.5-11.0 [facility] Lymphocytes Auto (Bld) [#/Vo l]Ordered By: Sly Benson on 04-28-2022 Lymphocytes (Bld) [#/Vol] 2.0 10*3/uL 1.00-4.8 [facility] Lymphocytes/100 WBC Auto (Bl d)Ordered By: Sly Benson on 04-28-2022 Lymphocytes/100 WBC (Bld) 28.3 % . [facility] MCH Auto (RBC) [Entitic mass ]Ordered By: Sly Besnon on 04-28-2022 MCH (RBC) [Entitic mass] 29.4 pg 24.7-34.3 [facility] MCHC Auto (RBC) [Mass/Vol]Or dered By: Sly Benson on 04-28-2022 MCHC (RBC) [Mass/Vol] 33.6 g/dL 32.0-35.0 [facility] MCV Auto (RBC) [Entitic vol] Ordered By: Sly Benson on 04-28-2022 MCV (RBC) [Entitic vol] 87.5 fL 80-100 [facility] Monocytes Auto (Bld) [#/Vol] Ordered By: Sly Benson on 04-28-2022 Monocytes (Bld) [#/Vol] 0.6 10*3/uL 0.0-0.8 [facility] Monocytes/100 WBC Auto (Bld) Ordered By: Sly Benson on 04-28-2022 Monocytes/100 WBC (Bld) 8.5 % . [facility] Neutrophils Auto (Bld) [#/Vo l]Ordered By: Sly Benson on 04-28-2022 Neutrophils (Bld) [#/Vol] 4.2 10*3/uL 1.8-7.7 [facility] Neutrophils/100 WBC Auto (Bl d)Ordered By: Sly Benson on 04-28-2022 Neutrophils/100 WBC (Bld) 61.6 % . [facility] No Panel InformationOrdered By: Sly Benson on 04-28-2022 Anti-Nuclear Antibody Comment 2 See comment . [facility] Comment on above: For more information [...] titers Nucleosomes, Histones Drug-induced SLE Speckled Sm, CAMERA REPAIRMAN, SCL-70, SLE,MCTD,PSS (diffuse form), SS-A/SS-B Sjogrens Nucleolar SCL-70, PM-1/SCL High titers Scleroderma, PM/DM Centromere Centromere PSS (limited form) w/Crest syndrome variable Nuclear Dot Sp100,[id number] Primary Biliary Cirrhosis Nuclear GP210, Primary Biliary CirrhosisMembrane fish A,B,C Performed at: [facility] [id number] [place], [place] [id number] Director: Coleman Lacy PhD, Phone: [phone] Estimated GFR () > 60 mL/Min [facility] Comment on above: GFR estimated refere nce range: According to KDOQI guidelines, <60 ml/min/1.73m2 is sufficient to diagnose a patient with chronic kidney disease. Pharmacy Creatinine Clearance (Chem 60.78 [facility] Platelet mean volume Auto (B ld) [Entitic vol]Ordered By: Sly Benson on 04-28-2022 Platelet mean volume (Bld) [Entitic vol] 7.6 fL 6.3-10.7 [facility] Platelet poor plasma interna tional normalized ratio (INR) by coagulation assay (relatOrdered By: Sly Benson on 04-28-2022 INR Coag (PPP) [Relative time] 0.9 {INR} [facility] Comment on above: INR Therapeutic Rang [...] 04-28-2022 Platelets (Bld) [#/Vol] 204 10*3/uL 150-450 [facility] Protein [Mass/volume] in Ser um or PlasmaOrdered By: Sly Benson on 04-28-2022 Protein [Mass/Vol] 6.4 g/dL 6.1-7.9 [facility] RBC Auto (Bld) [#/Vol]Ordere d By: Sly Benson on 04-28-2022 RBC (Bld) [#/Vol] 4.63 10*6/uL 3.60-5.00 [facility] Serum nuclear antibody titer Ordered By: Sly Benson on 04-28-2022 Nuclear Ab (S) [Titer] Positive . [facility] Comment on above: Negative <1:80 Borde rline 1:80 Positive >1:80 Serum or plasma alanine castro otransferase measurement without P-5'-P (enzymatic activiOrdered By: Sly Benson on 04-28-2022 ALT No additional P-5'-P [Catalytic activity/Vol] 34 U/L 10-60 [facility] Serum or plasma albumin/glob ulin mass ratioOrdered By: Sly Benson on 04-28-2022 Albumin/Globulin [Mass ratio] 1.2 {ratio} [facility] Serum or plasma alkaline halle sphatase measurement (enzymatic activity/volume)Ordered By: Sly Benson on 04-28-2022 ALP [Catalytic activity/Vol] 114 U/L 32-92 [facility] Serum or plasma anion gap de terminationOrdered By: Sly Benson on 04-28-2022 Anion gap [Moles/Vol] 11.9 mmol/L 6.0-15.0 [facility] Serum or plasma aspartate am inotransferase measurement (enzymatic activity/volume)Ordered By: Sly Benson on 04-28-2022 AST [Catalytic activity/Vol] 38 U/L 10-42 [facility] Serum or plasma calcium diamond urement (mass/volume)Ordered By: Sly Benson on 04-28-2022 Calcium [Mass/Vol] 8.9 mg/dL 8.2-10.2 [facility] Serum or plasma chloride zora surement (moles/volume)Ordered By: Sly Benson on 04-28-2022 Chloride [Moles/Vol] 105 mmol/L 95-114 [facility] Serum or plasma glucose diamond urement (mass/volume)Ordered By: Sly Benson on 04-28-2022 Glucose [Mass/Vol] 110 mg/dL 70-100 [facility] Comment on above: ADA recommended refe rence rangeRandom Glucose Reference Range is dependent on time and content of last meal. Glucose of more than 200 mg/dL in a nonstressed, ambulatory subject supports the diagnosis of Diabetes Mellitus. Serum or plasma potassium me asurement (moles/volume)Ordered By: Sly Benson on 04-28-2022 Potassium [Moles/Vol] 3.5 mmol/L 3.5-5.1 [facility] Serum or plasma sodium measu rement (moles/volume)Ordered By: Sly Benson on 04-28-2022 Sodium [Moles/Vol] 140 mmol/L 136-146 [facility] Serum or plasma total biliru bin measurement (mass/volume)Ordered By: Sly Benson on 04-28-2022 Bilirubin [Mass/Vol] 0.9 mg/dL 0.3-1.2 [facility] Serum or plasma total carbon dioxide measurement (moles/volume)Ordered By: Sly Benson on 04-28-2022 CO2 [Moles/Vol] 26.6 mmol/L 22.0-30.0 [facility] Serum or plasma urea nitroge n measurement (mass/volume)Ordered By: Sly Benson on 04-28-2022 Urea nitrogen [Mass/Vol] 16 mg/dL 04-04 [facility] Serum speckled pattern antin uclear antibody (BARRETT) titerOrdered By: Sly Benson on 04-28-2022 Speckled nuclear Ab pattern (S) [Titer] 1:160 . [facility] Comment on above: ICAP nomenclature: A C-2,4,5,29 TSH DL <= 0.005 mIU/L QnOrde red By: Sly Benson on 04-28-2022 TSH Qn 3.18 m[IU]/L 0.45-5.33 [facility] Creatinine and Glomerular fi ltration rate.predicted panel (S/P/Bld)Ordered By: Alex Trammell on 03-26-2022 Creatinine [Mass/Vol] 0.87 mg/dL 0.44-1.03 [facility] Estimated glomerular filtrat ion rate (GFR) non- AmericanOrdered By: Alex Trammell on 03-26-2022 GFR/1.73 sq M.predicted among non-blacks MDRD (S/P/Bld) [Vol rate/Area] > 60 mL/Min [facility] No Panel InformationOrdered By: Alex Trammell on 03-26-2022 Estimated GFR () > 60 mL/Min [facility] Comment on above: GFR estimated refere nce range: According to KDOQI guidelines, <60 ml/min/1.73m2 is sufficient to diagnose a patient with chronic kidney disease. Pharmacy Creatinine Clearance (Chem N/A [facility] Serum or plasma urea nitroge n measurement (mass/volume)Ordered By: Alex Trammell on 03-26-2022 Urea nitrogen [Mass/Vol] 18 mg/dL 04-04 [facility] Creatinine and Glomerular fi ltration rate.predicted panel (S/P/Bld)Ordered By: Alex Trammell on 10-10-2021 Creatinine [Mass/Vol] 0.91 mg/dL 0.44-1.03 [facility] Estimated glomerular filtrat ion rate (GFR) non- AmericanOrdered By: Alex Trammell on 10-10-2021 GFR/1.73 sq M.predicted among non-blacks MDRD (S/P/Bld) [Vol rate/Area] 60 mL/Min [facility] No Panel InformationOrdered By: Alex Trammell on 10-10-2021 Estimated GFR () > 60 mL/Min [facility] Comment on above: GFR estimated refere nce range: According to KDOQI guidelines, <60 ml/min/1.73m2 is sufficient to diagnose a patient with chronic kidney disease. Pharmacy Creatinine Clearance (Chem N/A [facility] Serum or plasma urea nitroge n measurement (mass/volume)Ordered By: Alex Trammell on 10-10-2021 Urea nitrogen [Mass/Vol] 19 mg/dL 04-04 [facility] Dermatopathologyon 2 Dermatopathology Name THERESA LUU Pathologist: SURAJ MELGAR MD Date of Procedure: 09/17/2021 Date Received: 09/18/2021 Date Reported 09/20/2021 Submitting Physician: ALEX TRAMMELL MD Location: [facility] Other External # FINAL DIAGNOSIS A. SKIN, [...] M.D. Electronically Signed Out By SURAJ MELGAR MD/[facility] By the signature on this report, the [...] toto. mlz/09/18/2021 [facility] Dermat[facility] [place] [id number] [place] [address] Comment on above: Performed By: #### D #### Dermatopathology No Panel Informationon 09-17 [facility] Work Phone: Office Visit (Oncology Surge [...] not connect with the medical oncologist at [facility] who was planning to consider her [...] a prior mole. 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 As [...] swelling fro (more content not included)... [facility] COMPREHENSIVE METABOLIC PANE [facility] 05-04-2021 Albumin [Mass/Vol] 4.1 g/dL Normal 3.6-5.1 [facility] Comment on above: Performed By: #### 7 600, [id number] #### [facility] [address], [address] [place] [address] Dust Box Worker: Chadwick Suárez MD Albumin/Globulin [Mass ratio] 1.4 {ratio} Normal 1.0-2.5 [facility] Comment on above: Performed By: #### 7 600, 82048 #### [facility] [address], [address] [place] [address] Dust Box Worker: Chadwick Suárez MD ALP [Catalytic activity/Vol] 121 U/L Normal 37-153 [facility] Comment on above: Performed By: #### 7 600, 10480 #### [facility] [address], [address] [place] [address] Dust Box Worker: Chadwick Suárez MD ALT [Catalytic activity/Vol] 18 U/L Normal 6-29 [facility] Comment on above: Performed By: #### 7 600, 29806 #### [facility] of [place] [address] Dust Box Worker: Chadwick Suárez MD AST [Catalytic activity/Vol] 19 U/L Normal 10-35 [facility] Comment on above: Performed By: #### 7 600, 52981 #### [facility] of [address], [address] [place] [address] Dust Box Worker: Chadwick Suárez MD Bilirubin [Mass/Vol] 0.5 mg/dL Normal 0.2-1.2 [facility] Comment on above: Performed By: #### 7 600, 00107 #### [facility] [place] [address] Dust Box Worker: Chadwick Suárez MD BUN/CREATININE RATIO NOT APPLICABLE Normal 6-22 [facility] Comment on above: Performed By: #### 7 600, 39214 #### [facility] [place] [address] Dust Box Worker: Chadwick Suárez MD Calcium [Mass/Vol] 9.4 mg/dL Normal 8.6-10.4 [facility] Comment on above: Performed By: #### 7 600, 60394 #### [facility] [place] [address] Dust Box Worker: Chadwick Suárez MD Chloride [Moles/Vol] 106 mmol/L Normal 98-110 [facility] Comment on above: Performed By: #### 7 600, 87498 #### [facility] [place] [address] Dust Box Worker: Chadwick Suárez MD CO2 [Moles/Vol] 31 mmol/L Normal 20-32 [facility] Comment on above: Performed By: #### 7 600, 38877 #### [facility] [address] [place] [address] Dust Box Worker: Chadwick Suárez MD Creatinine [Mass/Vol] 0.78 mg/dL Normal 0.60-0.93 [facility] Comment on above: Result Comment: For patients >49 years of age, the reference limit for Creatinine is approximately 13% higher for people identified as -Ecuadorean. Performed By: #### 7 600, 61330 #### [facility] [address], [address] [place] [address] Dust Box Worker: Chadwick Suárez MD eGFR NON-AFR. PANAMANIAN 75 mL/min/1.73m2 Normal > OR = 60 [facility] Comment on above: Performed By: #### 7 600, 84131 #### [facility] [place] [address] Dust Box Worker: Chadwick Suárez MD GFR/1.73 sq M.predicted among blacks MDRD (S/P/Bld) [Vol rate/Area] 87 mL/min/{1.73_m2} Normal > OR = 60 [facility] Comment on above: Performed By: #### 7 600, 85585 #### [facility] [place] [address] Dust Box Worker: Chadwick Suárez MD Globulin (S) [Mass/Vol] 2.9 g/dL Normal 1.9-3.7 [facility] Comment on above: Performed By: #### 7 600, 08088 #### [facility] [place] [address] Dust Box Worker: Chadwick Suárez MD Glucose [Mass/Vol] 105 mg/dL High 65-99 [facility] Comment on above: Result Comment: Fasting reference interval For someone without known diabetes, a glucose value between 100 and 125 mg/dL is consistent with prediabetes and should be confirmed with a follow-up test. Performed By: #### 7 600, 15182 #### [facility] [place] [address] Dust Box Worker: Chadwick Suárez MD Potassium [Moles/Vol] 4.9 mmol/L Normal 3.5-5.[address] [facility] Comment on above: Performed By: #### 7 600, 05852 #### [facility] of [address], [address] [place] [address] Dust Box Worker: Chadwick Suárze MD Protein [Mass/Vol] 7.0 g/dL Normal 6.1-8.1 [facility] Comment on above: Performed By: #### 7 600, 75941 #### [facility] of [address], [address] [place] [address] Dust Box Worker: Chadwick Suárez MD Sodium [Moles/Vol] 143 mmol/L Normal 135-146 [facility] Comment on above: Performed By: #### 7 600, 58820 #### [facility] of [address], [address] [place] [address] Dust Box Worker: Chadwick Suárez MD Urea nitrogen [Mass/Vol] 18 mg/dL Normal 7-25 [facility] Comment on above: Performed By: #### 7 600, 81690 #### [facility] [place] [address] Dust Box Worker: Chadwick Suárez MD LIPID PANEL, [facility] 10-2 Cholesterol [Mass/Vol] 235 mg/dL High <200 [facility] Comment on above: Order Comment: FASTI NG:YES AN UPDATE OR CORRECTION HAS BEEN MADE TO NAME FASTING: YES Performed By: #### 7 600, 97428 #### [facility] of [address], [address] [place] [address] Dust Box Worker: Chadwick Suárez MD Cholesterol in HDL [Mass/Vol] 83 mg/dL Normal > OR = 50 [facility] Comment on above: Order Comment: FASTI NG:YES AN UPDATE OR CORRECTION HAS BEEN MADE TO NAME FASTING: YES Performed By: #### 7 600, 66800 #### [facility] of [address], [address] [place] [address] Dust Box Worker: Chadwick Suárez MD Cholesterol in LDL [Mass/Vol] [...] equation in the estimation of LDL-C. Enrique SS et al. ROCCO. 2013;310(19): 3591-5776 (http://education.[employer]/faq/PFY376) Performed By: #### 7 600, 18846 #### [facility] [address], [address] [place] [address] Dust Box Worker: Chadwick Suárez MD Cholesterol.total/Chol esterol in HDL [Mass ratio] 2.8 {ratio} Normal <5.0 [facility] Comment on above: Order Comment: FASTI NG:YES AN UPDATE OR CORRECTION HAS BEEN MADE TO NAME FASTING: YES Performed By: #### 7 600, 41080 #### [facility] [address], [address] [place] [address] Dust Box Worker: Chadwick Suárez MD NON HDL CHOLESTEROL 152 [...] therapeutic option. Performed By: #### 7 600, 72203 #### [facility] [address], [address] [place] [address] Dust Box Worker: Chadwick Suárez MD Triglyceride [Mass/Vol] 132 mg/dL Normal <150 [facility] Comment on above: Order Comment: FASTI NG:YES AN UPDATE OR CORRECTION HAS BEEN MADE TO NAME FASTING: YES Performed By: #### 7 600, 39217 #### [facility] [address], [address] [place] [address] Dust Box Worker: Chadwick Suárez MD Office Visit (Oncology Surge [...] was referred to Dr. Francisca Rose at [facility] for medical oncology consultation for her [...] leg exophytic melanoma History of Present IllnessMs. José Miguel is a 75-year-old female referred by Dr. [...] a prior mole. The patient moved from [place] 8 years ago and has not established [...] wound present (879.8) (T14.8XXA) Patient Discussion/Summary Mrs. uLu is very nice 75-year-old female with a [...] be referred to Dr. Francisca Rose at [facility] for medical oncology consultation. Her care [...] a prior mole. The patient moved from [place] 8 years ago and has not established [...] Bacteria identified Cx Nom (Unsp spec) Abnormal DU-Vcazqay-U [facility] Work Phone: MISCELLANEOUS CULT./SM.BACT. on 12-04-2020 MISCELLANEOUS CULT./SM.BACT. PATIENT: THERESA LUU LOCATION: [facility] BILL#: [id number] : 47 AGE: SEX: F ORDERED BY: [...] DOSE DEPENDENT NS=NONSUSCEPTIBLE X=REPORTED IN ERROR Normal [facility] Comment on above: Performed By: #### M [facility] #### [facility] [address] [place] [address] Office Visit (Oncology Surge ry)on 12-04-2020 Follow-up [...] referred to Dr. Francisca Rose at [facility] for medical oncology consultation. Her care [...] a prior mole. The patient moved from [place] 8 years ago and has not established [...] The s (more content not included)... Normal [facility] Office Visit (Oncology Surge ry)on 11-27-2020 Follow-up [...] referred to Dr. Francisca Rose at [facility] for medical oncology consultation. Her care [...] a prior mole. The patient moved from [place] 8 years ago and has not established [...] Malignant jerson (more content not included)... Normal [facility] Dermatopathologyon 1 Dermatopathology [facility] Dermatopathology Laboratory [address] [place] [id number] DERMATOPATHOLOGY REPORT [facility]. [id number] Location: [facility] Date of Procedure: 11/16/2020 Race: Date Received: 11/19/2020 /Sex: 1945 (Age: 75) / F Date Reported: 11/22/2020 Other: Submitting Physician:ALEX TRAMMELL MD FINAL DIAGNOSIS A. NODE, LEFT INGUINAL SENTINEL LYMPH NODE #1, BLUE COUNT [id number], BIOPSY: TWO SOX-10 POSITIVE CELLS, SEE NOTE. [...] determined by the Department of Pathology at [facility]. The FDA does not require this [...] LEFT LOWER LEG MELANOMA: SPECIMEN Procedure: Re-excision Crossett node(s) biopsy Specimen Laterality: Left TUMOR Tumor [...] of Lymph Nodes Examined: 3 Number of Crossett Nodes Examined: 2 PATHOLOGIC STAGE CLASSIFICATION (pTNM, [...] ADDITIONAL FINDINGS Additional Findings: None ADDITIONAL TESTING MIXER PIGMENT BLOCKS: Normal Block: D1 - 5, 7, 18, 20 - 23 Tumor Block: D6, 8 - 17 Electronically Signed Out By SURAJ MELGAR MD/[facility] By the signature on this report, the individual or group listed as making the Final Interpretation/Diagnosis certifies that they have reviewed this case. Clinical History: A: Crossett lymph n (more content not included)... Normal [facility] Comment on above: Performed By: #### D #### Dermatopathology LYMPH GLANDon 11-16-2020 LYMPH GLAND Patient Name: THERESA LUU STUDY: LYMPH GLAND; 11/16/2020 10:05 am INDICATION: Malignant melanoma of left lower leg. COMPARISON: PET-CT 10/31/2020. ACCESSION NUMBER(S): [id number] ORDERING CLINICIAN: ALEX TRAMMELL TECHNIQUE: DIVISION OF NUCLEAR MEDICINE RADIONUCLIDE SENTINEL LYMPH NODE LYMPHOSCINTIGRAPHY A total of 970 microcuries of Tc-99m tilmanocept (LymphSulfagenix) was injected intradermally in a circumferential pattern [...] by: COCO ARCHIBALD MD [facility] No Panel Informationon 11-16 [facility] Work Phone: Order Reconciliationon 11-16 [...] every 6 hours, As Needed pain Normal [facility] Patient Profile - Preop v2on 11-16-2020 Patient [...] Health: Weight in kg90 kilogram(s) Weight in muz635.4 pound(s) Weight Methodactual (measured) Scale Typechair Height in feet5 feet Height in inches2 inch(es) Height in cm157.4 centimeter(s) Height Methodstated BMI (kg/m2)36.327 square meter Patient or Family Member Reaction to Anesthesiano previous reaction Blood Avoidance/Restrictionsnone Previous Transfusion Reactionno Health Mgmt: Symptoms/Conditions Managed at Homecancer Cancer Symptoms/Conditionsmelanom a Barriers to Managing Healthnone Relationship/Environ: Living Arrangementshouse Lives Withalone Resource/Environmental Concernsnone [facility] Anticipated at Transitionnone Substance: Current or [...] material; individual instruction Cultural Considerationsnone Developmental Considerationsnone Hinduism Considerationsnone Other learner availableno [place] RiskPatient location auto qualifies him/her for HIGH RISK. Are there any cultural, spiritual, cheondoism practices/values/needs that are important for us to [...] Profile - Preop v2 14-Nov-2020 09:30 Normal [facility] Preop Checkliston 11-16-2020 Preop Checklist Preop Checklist: Preop Checklist: Arrival [id number] Arrival Time06:04 NPO [id number] 22:00 ID Band Onyes Allergy Bandno known [...] 16-Nov-2020 06:31 by Deepa Zazueta (GABY) Normal [facility] Radiologyon 11-16-2020 NM Lymph node Views Normal [facility] Work Phone: BASIC METABOLIC PANELon Anion gap [Moles/Vol] 10 mmol/L Normal 10 - 20 [facility] Comment on above: Performed By: #### B MP #### [address] [address] Calcium [Mass/Vol] 9.2 mg/dL Normal 8.6 - 10.3 [facility] Comment on above: Performed By: #### B MP #### [address] [address] Chloride [Moles/Vol] 105 mmol/L Normal 98 - 107 [facility] Comment on above: Performed By: #### B MP #### [address] [address] Creatinine [Mass/Vol] 0.81 mg/dL Normal 0.50 - 1.05 [facility] Comment on above: Performed By: #### B MP #### [address] [address] GFR- AM. >60 Normal >60 [facility] Comment on above: Result Comment: CALC ULATIONS OF ESTIMATED GFR ARE PERFORMED USING THE MDRD STUDY EQUATION FOR THE IDMS-TRACEABLE CREATININE METHODS. CLIN CHEM 2007;53:766-72 Performed By: #### B MP #### [address] [address] GFR-NON AM. >60 Normal >60 [facility] Comment on above: Performed By: #### B MP #### [address] [address] Glucose [Mass/Vol] 95 mg/dL Normal 74 - 99 [facility] Comment on above: Performed By: #### B MP #### [address] [place] [address] HCO3 (Bld) [Moles/Vol] 30 mmol/L Normal 21 - 32 [facility] Comment on above: Performed By: #### B MP #### [address] [place] [address] Potassium [Moles/Vol] 4.1 mmol/L Normal 3.5 - 5.3 [facility] Comment on above: Performed By: #### B MP #### [address] [place] [address] Sodium [Moles/Vol] 141 mmol/L Normal 136 - 145 [facility] Comment on above: Performed By: #### B MP #### [address] [place] [address] Urea nitrogen [Mass/Vol] 16 mg/dL Normal 6 - 23 [facility] Comment on above: Performed By: #### B MP #### [address] [place] [address] CORONAVIRUS 2019, SCREEN ASY MPTOMATICon 11-14-2020 SARS-CoV-2 (COVID-19) RNA BENOIT+probe Ql (Unsp spec) Not detected Normal Not Detected [facility] Comment on above: Result Comment: [...] this test method. Fact sheet for providers: https://www.fda.gov/media/384182/download Fact sheet for patients: https://www.fda.gov/media/738369/download This test has received FDA Emergency Use Authorization [EUA] and has been verified by [facility] ([facility]). This test is only authorized for the duration of time that circumstances exist to justify the authorization of the emergency use of in vitro diagnostic tests for the detection of SARS-CoV-2 virus and/or diagnosis of COVID-19 infection under section 564(b)(1) of the Act, 21 U.S.C. 360bbb-3(b)(1), unless the authorization is terminated or revoked sooner. [facility] is certified under CLIA-88 as qualified to perform high complexity testing. Testing is performed in the [facility] laboratories located at [id number] [place] [address]. Performed By: #### C OVSC #### [facility] [id number] [place] [address] Lab Specimen Source Nasal, Nasopharyngeal Normal [facility] Comment on above: Performed By: #### C OVSC #### [facility] [id number] [place] [address] Coronavirus 2019 RNA by PCR, Screening Asymptomticon 11-14-2020 Coronavirus 2019 RNA by PCR, Screening Asymptomtic Not detected Normal See Below [facility] Work Phone: Comment on above: [...] this test method. Fact sheet for providers: https://www.fda.gov/media/399680/downloadFact sheet for patients: https://www.fda.gov/media/546154/downloadThis test has received FDA Emergency Use Authorization [EUA] and has been verified by [facility] ([facility]). This test is only authorized for the duration of time that circumstances exist to justify the authorization of the emergency use of in vitro diagnostic tests for the detection of SARS-CoV-2 virus and/or diagnosis of COVID-19 infection under section 564(b)(1) of the Act, 21 U.S.C. 360bbb-3(b)(1), unless the authorization is terminated or revoked sooner. [facility] is certified under CLIA-88 as qualified to perform high complexity testing. Testing is performed in the [facility] laboratories located at [address] [place] [address]. Covid 19 Resultson 1 SARS-CoV-2 (COVID-19) RNA [...] You may also be contacted by the [facility] to see if any of [...] or Naproxen (Aleve) can also be used. Wbxf-zge-oqbmlmo cough and cold medicines can be used according to the instructions on the package. Some egfo-mqp-zghvywj medicines also contain acetaminophen. Make sure you [...] water are not available, use alcohol-based hand treatment supervisor. Avoid touching your eyes, nose, and mouth [...] 24 sivakumar (more content not included)... Normal [facility] Laboratory - Chemistry and C hemistry - challengeon 11-14-2020 Anion gap [Moles/Vol] 10 mmol/L 10 - 20 MG- SurgeryS [facility] Work Phone: [phone] Calcium [Mass/Vol] 9.2 mg/dL 8.6 - 10.3 MG-Pedro nancyFormerly [facility] Work Phone: 51 Chloride [Moles/Vol] 105 mmol/L 98 - 107 MG-S urgeryFormerly [facility] Work Phone: [phone] CO2 [Moles/Vol] 30 mmol/L 21 - 32 MG-Surger yFormerly [facility] Work Phone: 51 Creatinine [Mass/Vol] 0.81 mg/dL See Below [facility] SurgeryS [facility] Work Phone: [phone] Comment on above: Reference Range: 0.5 0 - 1.05 Glucose [Mass/Vol] 95 mg/dL 74 - 99 MG-Pedro nancyFormerly [facility] Work Phone: [phone] Potassium [Moles/Vol] 4.1 mmol/L 3.5 - 5.3 MG- SurgeryS [facility] Work Phone: [phone] Sodium [Moles/Vol] 141 mmol/L 136 - 145 MG-Pedro nancyFormerly [facility] Work Phone: [phone] Urea nitrogen [Mass/Vol] 16 mg/dL 6 - 23 IU-Gqkhvxp-E [facility] Work Phone: [phone] Panel Informationon 11-14 >60 >60 AE-Ubspvdo-B [facility] Work Phone: [phone] Comment on above: CALCULATIONS OF DENIS MATED GFR ARE PERFORMED USING THE MDRD STUDY EQUATION FOR THE IDMS-TRACEABLE CREATININE METHODS. CLIN CHEM 2007;53:766-72 [email or web address] 1:8080 /musescripts/museweb.dll?R etrieveTestByDateTime?Rachel znbRP=[id number]&Date=11-14&Time=09%3a51%3a40%3a 00&TestType=ECG&Site=12&Ou tputType=PDF&Ext=PDF IR-Pxrmgqa-A [facility] Work Phone: [phone] Normal sinus rhythm MG-Burton rgery-S [facility] Work Phone: [phone] Normal YT-Xtgwmex-T [facility] Work Phone: [phone] YH-Ckxlfex-S [facility] Work Phone: [phone] GT-Eorrfti-N [facility] Work Phone: [phone] JD-Clmhhir-N [facility] Work Phone: [phone] KS-Uxbzcye-A [facility] Work Phone: [phone] XW-Ebsqxjk-H [facility] Work Phone: [phone] KC-Wfjuopx-V [facility] Work Phone: [phone] ML-Swwttuz-P [facility] Work Phone: [phone] EW-Izhgbyr-V [facility] Work Phone: [phone] JD-Dosjmhu-X [facility] Work Phone: [phone] GH-Hxsioie-A [facility] Work Phone: [phone] 1 XA-Gmskjrt-X [facility] Work Phone: [phone] HB-Uicbkwg-K [facility] Work Phone: [phone] 1 AB-Eplzyyi-H [facility] Work Phone: [phone] RF-Uyoqesf-M [facility] Work Phone: PET/CT MELANOMA INITIAL STAG Tyrone [...] leg biopsy-proven melanoma. COMPARISON: None. ACCESSION NUMBER(S): [id number] ORDERING CLINICIAN: ALEX TRAMMELL TECHNIQUE: DIVISION OF [...] CODING: Initial Treatment Strategy (PI) CALIBRATION: Dose Qjzywpyus-nx-Gmvk Interval (mins): 72 min Mediastinal bloodpool SUV [...] as stated. This study was interpreted at [facility]. Electronically signed by: IVELISSE OVALLE MD Normal [facility] Office Visit (Oncology Surge ry)on 10-23-2020 Follow-up [...] a prior mole. The patient moved from [place] 8 years ago and has not established [...] chronic medical conditions Social history: Lives in [place] independently. Has 2 dogs. Walks regularly. Denies tobacco, alcohol, and drug use. Has extended family in [place] Allergies: No known drug allergies ROS: The [...] of (more content not included)... Normal [employer] [facility] Surgical Pathology Depar tmenton 10-16-2020 [facility] Surgical Pathology Department Name THERESA LUU Pathologist: SHER DIAS MD Date of Procedure: 10/16/2020 Date Received: 10/31/2020 Date Reported 11/02/2020 Submitting Physician: SURAJ MELGAR MD Location: [facility] FINAL DIAGNOSIS RESULTS OF ANCILLARY TESTING ORDERED [...] extraction and testing are performed in the [facility] Translational Laboratory ([facility]) located at [address] [place] [address] (CLIA License #[id number], CAP #[id number]). This laboratory developed test was developed and its analytical performance characteristics have been determined by Translational Laboratory. This test has not been cleared or approved by the FDA; however, the FDA has determined that such approval is not necessary. The [facility] is certified under the Clinical Laboratory [...] as m (more content not included)... Normal [facility] Comment on above: Performed By: #### U [facility] #### [facility] Surgical Pathology Department [id number] [facility] [address] Vital Signs Date Time Vital Sign Value Performing Clinician Facility 09-15-2023 16:00-0500 Body height 157.5 cm Yoni Muller DO Work Phone: [facility] 09-15-2023 16:00-0500 Body mass index (BMI) [Ratio] 34.84 kg/m2 Yoni Furlong DO Work Phone: [facility] 09-15-2023 16:00-0500 Body temperature 98.91 [degF] Yoni Furlong DO Work Phone: [facility] 09-15-2023 16:00-0500 Body weight 86.41 kg Yoni Furlong DO Work Phone: [facility] 09-15-2023 16:00-0500 Diastolic blood pressure 50 mm[Hg] Yoni Furlong DO Work Phone: [facility] 09-15-2023 16:00-0500 Heart rate 80 /min Yoni Furlong DO Work Phone: [facility] 09-15-2023 16:00-0500 SaO2% (BldA) [Mass fraction] 96 % Yoni Furlong DO Work Phone: [facility] 09-15-2023 16:00-0500 Systolic blood pressure 130 mm[Hg] Yoni Furlong DO Work Phone: [facility] 08-07-2023 11:24-0500 Body temperature 98.2 [degF] DO Yoni Furlong Work Phone: [facility] 08-07-2023 11:24-0500 Body weight 89.35 kg DO Yoni Furlong Work Phone: [facility] 08-07-2023 11:24-0500 Diastolic blood pressure 70 mm[Hg] DO Yoni Furlong Work Phone: [facility] 08-07-2023 11:24-0500 Heart rate 88 /min DO Yoni Furlong Work Phone: [facility] 08-07-2023 11:24-0500 Respiratory rate 18 /min DO Yoni Furlong Work Phone: [facility] 08-07-2023 11:24-0500 SaO2% (BldA) [Mass fraction] 98 % DO Yoni Furlong Work Phone: [facility] 08-07-2023 11:24-0500 Systolic blood pressure 151 mm[Hg] DO Yoni Furlong Work Phone: [facility] 07-14-2023 13:32-0500 Body temperature 98.2 [degF] DO Yoni Furlong Work Phone: [facility] 07-14-2023 13:32-0500 Diastolic blood pressure 78 mm[Hg] DO Yoni Furlong Work Phone: [facility] 07-14-2023 13:32-0500 Heart rate 81 /min DO Yoni Furlong Work Phone: [facility] 07-14-2023 13:32-0500 Respiratory rate 18 /min DO Yoni Furlong Work Phone: [facility] 07-14-2023 13:32-0500 SaO2% (BldA) [Mass fraction] 97 % DO Yoni Furlong Work Phone: [facility] 07-14-2023 13:32-0500 Systolic blood pressure 113 mm[Hg] DO Yoni Furlong Work Phone: [facility] 03-24-2023 10:14-0400 Body height 160.02 cm DO Yoni Furlong Work Phone: [facility] 03-06-2023 13:49-0400 Body temperature 97.8 [degF] DO Yoni Furlong Work Phone: [facility] 03-06-2023 13:49-0400 Body weight 89.35 kg DO Yoni Furlong Work Phone: [facility] 03-06-2023 13:49-0400 Diastolic blood pressure 71 mm[Hg] DO Yoni Furlong Work Phone: [facility] 03-06-2023 13:49-0400 Heart rate 87 /min DO Yoni Furlong Work Phone: [facility] 03-06-2023 13:49-0400 Respiratory rate 16 /min DO Yoni Furlong Work Phone: [facility] 03-06-2023 13:49-0400 SaO2% (BldA) [Mass fraction] 94 % DO Yoni Furlong Work Phone: [facility] 03-06-2023 13:49-0400 Systolic blood pressure 139 mm[Hg] DO Yoni Gremlnlong Work Phone: [facility] 01-27-2023 10:30-0400 Body temperature 97.5 [degF] Kimber Regino Other [employer] Other 01-27-2023 10:30-0400 Body weight 87.54 kg Kimber Reidraw Other [employer] Other 01-27-2023 10:30-0400 Diastolic blood pressure 80 mm[Hg] Kimber Regino Other [employer] Other 01-27-2023 10:30-0400 SaO2% (BldA) [Mass fraction] 96 % Kimber Reidraw Other [employer] Other 01-27-2023 10:30-0400 Systolic blood pressure 159 mm[Hg] Kimber Reidraw Other [employer] Other 01-27-2023 10:23-0400 Body temperature 97.5 [degF] DO Yoni Furlong Work Phone: [facility] 01-27-2023 10:23-0400 Body weight 88.49 kg DO Yoni Furlong Work Phone: [facility] 01-27-2023 10:23-0400 Diastolic blood pressure 80 mm[Hg] DO Yoni Furlong Work Phone: [facility] 01-27-2023 10:23-0400 Heart rate 90 /min DO Yoni Furlong Work Phone: [facility] 01-27-2023 10:23-0400 Respiratory rate 18 /min DO Yoni Furlong Work Phone: [facility] 01-27-2023 10:23-0400 SaO2% (BldA) [Mass fraction] 96 % DO Yoni Furlong Work Phone: [facility] 01-27-2023 10:23-0400 Systolic blood pressure 159 mm[Hg] DO Yoni Furlong Work Phone: [facility] 12-30-2022 09:56-0400 Body weight 88.45 kg DO Yoni Furlong Work Phone: [facility] 12-30-2022 08:26-0400 Body temperature 97.8 [degF] DO Yoni Furlong Work Phone: [facility] 12-30-2022 08:26-0400 Body weight 88.45 kg DO Yoni Furlong Work Phone: [facility] 12-30-2022 08:26-0400 Diastolic blood pressure 81 mm[Hg] DO Yoni Furlong Work Phone: [facility] 12-30-2022 08:26-0400 Heart rate 86 /min DO Yoni Furlong Work Phone: [facility] 12-30-2022 08:26-0400 Respiratory rate 16 /min DO Yoni Furlong Work Phone: [facility] 12-30-2022 08:26-0400 SaO2% (BldA) [Mass fraction] 98 % DO Yoni Furlong Work Phone: [facility] 12-30-2022 08:26-0400 Systolic blood pressure 132 mm[Hg] DO Yoni Furlong Work Phone: [facility] 09-08-2022 11:09-0500 Body weight 90.2 kg DO Yoni Furlong Work Phone: [facility] 09-08-2022 09:52-0500 Body temperature 97.9 [degF] DO Yoni Furlong Work Phone: [facility] 09-08-2022 09:52-0500 Body weight 90.2 kg DO Yoni Furlong Work Phone: [facility] 09-08-2022 09:52-0500 Diastolic blood pressure 82 mm[Hg] DO Yoni Furlong Work Phone: [facility] 09-08-2022 09:52-0500 Heart rate 78 /min DO Yoni Furlong Work Phone: [facility] 09-08-2022 09:52-0500 Respiratory rate 20 /min DO Yoni Furlong Work Phone: [facility] 09-08-2022 09:52-0500 SaO2% (BldA) [Mass fraction] 97 % DO Yoni Furlong Work Phone: [facility] 09-08-2022 09:52-0500 Systolic blood pressure 137 mm[Hg] DO Yoni Furlong Work Phone: [facility] 08-11-2022 11:25-0500 Body weight 89.4 kg DO Yoni Furlong Work Phone: [facility] 08-11-2022 10:28-0500 Body height 160.02 cm DO Yoni Furlong Work Phone: [facility] 08-11-2022 10:28-0500 Body temperature 97.4 [degF] DO Yoni Furlong Work Phone: [facility] 08-11-2022 10:28-0500 Diastolic blood pressure 68 mm[Hg] DO Yoni Furlong Work Phone: [facility] 08-11-2022 10:28-0500 Heart rate 82 /min DO Yoni Furlong Work Phone: [facility] 08-11-2022 10:28-0500 Respiratory rate 20 /min DO Yoni Furlong Work Phone: [facility] 08-11-2022 10:28-0500 SaO2% (BldA) [Mass fraction] 98 % DO Yoni Furlong Work Phone: [facility] 08-11-2022 10:28-0500 Systolic blood pressure 132 mm[Hg] DO Yoni Furlong Work Phone: [facility] 06-23-2022 12:05-0500 Body weight 88.6 kg DO Yoni Furlong Work Phone: [facility] 06-23-2022 10:44-0500 Body temperature 97.9 [degF] DO Yoni Furlong Work Phone: [facility] 06-23-2022 10:44-0500 Body weight 88.6 kg DO Yoni Furlong Work Phone: [facility] 06-23-2022 10:44-0500 Diastolic blood pressure 74 mm[Hg] DO Yoni Furlong Work Phone: [facility] 06-23-2022 10:44-0500 Heart rate 80 /min DO Yoni Furlong Work Phone: [facility] 06-23-2022 10:44-0500 Respiratory rate 18 /min DO Yoni Furlong Work Phone: [facility] 06-23-2022 10:44-0500 SaO2% (BldA) [Mass fraction] 98 % DO Yoni Furlong Work Phone: [facility] 06-23-2022 10:44-0500 Systolic blood pressure 141 mm[Hg] DO Yoni Furlong Work Phone: [facility] 06-02-2022 10:29-0500 Body temperature 97.7 [degF] DO Yoni Furlong Work Phone: [facility] 06-02-2022 10:29-0500 Body weight 89.9 kg DO Yoni Furlong Work Phone: [facility] 06-02-2022 10:29-0500 Diastolic blood pressure 82 mm[Hg] DO Yoni Furlong Work Phone: [facility] 06-02-2022 10:29-0500 Heart rate 92 /min DO Yoni Furlong Work Phone: [facility] 06-02-2022 10:29-0500 Respiratory rate 16 /min DO Yoni Furlong Work Phone: [facility] 06-02-2022 10:29-0500 SaO2% (BldA) [Mass fraction] 97 % DO Yoni Furlong Work Phone: [facility] 06-02-2022 10:29-0500 Systolic blood pressure 150 mm[Hg] DO Yoni Furlong Work Phone: [facility] 05-02-2022 15:07-0400 Body weight 92.8 kg DO Yoni Furlong Work Phone: [facility] 05-02-2022 15:07-0400 Diastolic blood pressure 83 mm[Hg] DO Yoni Furlong Work Phone: [facility] 05-02-2022 15:07-0400 Heart rate 87 /min DO Yoni Furlong Work Phone: [facility] 05-02-2022 15:07-0400 Respiratory rate 20 /min DO Yoni Furlong Work Phone: [facility] 05-02-2022 15:07-0400 SaO2% (BldA) [Mass fraction] 98 % DO Yoni Furlong Work Phone: [facility] 05-02-2022 15:07-0400 Systolic blood pressure 146 mm[Hg] DO Yoni Furlong Work Phone: [facility] 04-28-2022 09:07-0400 Diastolic blood pressure 76 mm[Hg] DO Yoni Furlong Work Phone: [facility] 04-28-2022 09:07-0400 Heart rate 93 /min DO Yoni Furlong Work Phone: [facility] 04-28-2022 09:07-0400 Respiratory rate 18 /min DO Yoni Furlong Work Phone: [facility] 04-28-2022 09:07-0400 SaO2% (BldA) [Mass fraction] 95 % DO Yoni Furlong Work Phone: [facility] 04-28-2022 09:07-0400 Systolic blood pressure 148 mm[Hg] DO Yoni Furlong Work Phone: [facility] 04-28-2022 08:11-0400 Body height 157.48 cm DO Yoni Furlong Work Phone: [facility] 04-28-2022 08:11-0400 Body temperature 98.6 [degF] DO Yoni Furlong Work Phone: [facility] 04-28-2022 08:11-0400 Body weight 91.17 kg DO Yoni Furlong Work Phone: [facility] 04-21-2022 08:54-0400 Body height 160.02 cm DO Yoni Furlong Work Phone: [facility] 04-21-2022 08:54-0400 Body temperature 98 [degF] DO Yoni Furlong Work Phone: [facility] 04-21-2022 08:54-0400 Body weight 91.48 kg DO Yoni Furlong Work Phone: [facility] 04-21-2022 08:54-0400 Diastolic blood pressure 87 mm[Hg] DO Yoni Furlong Work Phone: [facility] 04-21-2022 08:54-0400 Heart rate 85 /min DO Yoni Furlong Work Phone: [facility] 04-21-2022 08:54-0400 Respiratory rate 20 /min DO Yoni Furlong Work Phone: [facility] 04-21-2022 08:54-0400 SaO2% (BldA) [Mass fraction] 97 % DO Yoni Furlong Work Phone: [facility] 04-21-2022 08:54-0400 Systolic blood pressure 161 mm[Hg] DO Yoni Furlong Work Phone: [facility] 10-25-2021 09:45-0400 Body temperature 98 [degF] MD Alex Trammell Work Phone: [facility] 10-25-2021 09:45-0400 Body weight 90.94 kg MD Alex Trammell Work Phone: [facility] 10-25-2021 09:45-0400 Diastolic blood pressure 70 mm[Hg] MD Alex Trammell Work Phone: [facility] 10-25-2021 09:45-0400 Heart rate 90 /min MD Alex Trammell Work Phone: [facility] 10-25-2021 09:45-0400 Respiratory rate 20 /min MD Alex Trammell Work Phone: [facility] 10-25-2021 09:45-0400 SaO2% (BldA) [Mass fraction] 98 % MD Alex Trammell Work Phone: [facility] 10-25-2021 09:45-0400 Systolic blood pressure 141 mm[Hg] MD Alex Trammell Work Phone: [facility] 10-07-2021 08:13-0400 Body temperature 98.1 [degF] DO Sly Adamowicz II Work Phone: [facility] 10-07-2021 08:13-0400 Body weight 92.8 kg DO Sly Adamowicz II Work Phone: [facility] 10-07-2021 08:13-0400 Diastolic blood pressure 78 mm[Hg] DO Sly Adamowicz II Work Phone: [facility] 10-07-2021 08:13-0400 Heart rate 96 /min DO Sly Adamowicz II Work Phone: [facility] 10-07-2021 08:13-0400 Respiratory rate 20 /min DO Sly Adamowicz II Work Phone: [facility] 10-07-2021 08:13-0400 SaO2% (BldA) [Mass fraction] 97 % DO Sly Adamowicz II Work Phone: [facility] 10-07-2021 08:13-0400 Systolic blood pressure 144 mm[Hg] DO Sly Adamowicz II Work Phone: [facility] 10-07-2021 08:05-0400 Body height 160.02 cm DO Sly Adamowicz II Work Phone: [facility] 09-17-2021 15:09-0500 Body temperature 98.6 [degF] Yoni Larson Furlong Work Phone: [facility] Work Phone: 09-17-2021 15:09-0500 Body weight 89.54 kg Yoni Larson Furlong Work Phone: PT[facility]rbnhe[facility] [address] Work Phone: 09-17-2021 15:09-0500 Diastolic blood pressure 81 mm[Hg] Yoni Larson Furlong Work Phone: [facility] [address] Work Phone: 09-17-2021 15:09-0500 Heart rate 101 /min Yoni Larson Furlong Work Phone: [facility] 4603 Work Phone: 09-17-2021 15:09-0500 Respiratory rate 18 /min Yoni Larson Furlong Work Phone: [facility] 4601 Work Phone: 09-17-2021 15:09-0500 Systolic blood pressure 158 mm[Hg] Yoni Larson Furlong Work Phone: [facility] 4605 Work Phone: 01-22-2021 14:42-0400 Body weight 88.03 kg Yoni Larson Furlong Work Phone: ZN-Fcyktmj-Eyndbxva 150 Work Phone: 01-22-2021 14:42-0400 Diastolic blood pressure 84 mm[Hg] Yoni Larson Furlong Work Phone: YO-Zbhxnnj-Lzkjkiip 150 Work Phone: 01-22-2021 14:42-0400 Heart rate 102 /min Yoni G Furlong Work Phone: IM-Hsjojic-Slicdhbq 150 Work Phone: 01-22-2021 14:42-0400 SaO2% (BldA) [Mass fraction] 95 % Yoni G Furlong Work Phone: RT-Qxzwqhk-Nhxxlfur 150 Work Phone: 01-22-2021 14:42-0400 Systolic blood pressure 149 mm[Hg] Yoni G Furlong Work Phone: OL-Syhpitv-Dktltjbu 150 Work Phone: 12-25-2020 15:23-0400 Body weight 89.36 kg Yoni Prolong Work Phone: [facility] Work Phone: 12-25-2020 15:23-0400 Diastolic blood pressure 85 mm[Hg] Yoni Prolong Work Phone: [facility] Work Phone: 12-25-2020 15:23-0400 Heart rate 105 /min Yoni Prolong Work Phone: [facility] Work Phone: 12-25-2020 15:23-0400 SaO2% (BldA) [Mass fraction] 95 % Yoni Prolong Work Phone: [facility] Work Phone: 12-25-2020 15:23-0400 Systolic blood pressure 163 mm[Hg] Yoni G Furlong Work Phone: [facility] Work Phone: 12-04-2020 15:07-0400 Diastolic blood pressure 84 mm[Hg] Yoni G Furlong Work Phone: [facility] Work Phone: 12-04-2020 15:07-0400 Heart rate 111 /min Yoni Muller Work Phone: [facility] Work Phone: 12-04-2020 15:07-0400 SaO2% (BldA) [Mass fraction] 98 % Yoni Hollowayng Work Phone: [facility] Work Phone: 12-04-2020 15:07-0400 Systolic blood pressure 154 mm[Hg] Yoni Hollowayng Work Phone: [facility] Work Phone: 11-27-2020 15:10-0400 Body weight 90.72 kg Yoni Hollowayng Work Phone: [facility] Work Phone: 11-27-2020 15:10-0400 Diastolic blood pressure 79 mm[Hg] Yoni Hollowayng Work Phone: [facility] Work Phone: 11-27-2020 15:10-0400 Heart rate 98 /min Yoni Muller Work Phone: [facility] Work Phone: 11-27-2020 15:10-0400 SaO2% (BldA) [Mass fraction] 96 % Yoni Prolong Work Phone: [facility] Work Phone: 11-27-2020 15:10-0400 Systolic blood pressure 138 mm[Hg] Yoni Prolong Work Phone: [facility] Work Phone: [phone] 23:00-0500 >na< Quentin Fitzpatrick Dept. of Ele[facility] matology Encounters Encounter Date Encounter Type Care Provider Facility Start: 09-17-2023 Orders Only Yoni hyatt DO Work Phone: [facility] Start: 09-15-2023 End: 09-15-2023 Office outpatient visit 25 minutes Yoni Muller DO Work Phone: [facility] Comment on above: Benign hypertension with chronic kidney disease, stage III ([facility]) (Primary Dx); Hyperlipidemia, unspecified hyperlipidemia type; Malignant melanoma of left lower leg (CMS-HCC); Class 2 severe obesity due to excess calories with serious comorbidity and body mass index (BMI) of 35.0 to 35.9 in adult Start: 09-08-2023 Refill Yoni hyatt DO [facility] Comment on above: Essential (primary) hypertension Start: 09-04-2023 ambulatory Sly rich II Facility:[facility] Start: 08-07-2023 ambulatory Sly rich II Facility:[facility] Start: 08-07-2023 Registered Recurring DO Yoni Furlong Work Phone: [facility] Work Phone: Start: 08-07-2023 End: 08-07-2023 ambulatory DO Yoni Furlong Work Phone: [facility] Work Phone: Start: 08-07-2023 End: 08-07-2023 Patient encounter procedure DO Yoni Furlong Work Phone: [facility] Work Phone: Start: 03-06-2023 End: 03-06-2023 ambulatory DO Yoni Furlong Work Phone: [facility] Work Phone: Start: 03-06-2023 End: 03-06-2023 Registered Recurring DO Yoni Furlong Work Phone: [facility] Work Phone: Start: 01-27-2023 Office outpatient vi sit 25 minutes Kimber Lacy [facility] Start: 01-27-2023 End: 01-27-2023 ambulatory DO Yoni Furlong Work Phone: [facility] Work Phone: Start: 01-27-2023 End: 01-27-2023 Registered Recurring DO Yoni Furlong Work Phone: [facility] Work Phone: Start: 12-30-2022 End: 12-30-2022 ambulatory DO Yoni Furlong Work Phone: [facility] Work Phone: Start: 12-30-2022 End: 12-30-2022 Registered Recurring DO Yoni Furlong Work Phone: [facility] Work Phone: Start: 12-30-2022 End: 12-30-2022 ambulatory DO Yoni Furlong Work Phone: [facility] Work Phone: Start: 12-30-2022 End: 12-30-2022 Registered Recurring DO Yoni Furlong Work Phone: [facility] [facility] Work Phone: Start: 10-03-2022 End: 10-04-2022 ambulatory SLY BENSON Facility: Start: 09-08-2022 End: 09-08-2022 ambulatory DO Yoni Furlong Work Phone: [facility] Work Phone: Start: 09-08-2022 End: 09-08-2022 Registered Recurring DO Yoni Furlong Work Phone: [facility] Work Phone: Start: 09-05-2022 End: 09-06-[address] YONI MULLER Facility:H1 Start: 08-11-2022 End: 08-11-2022 ambulatory DO Yoni Furlong Work Phone: [facility] Work Phone: Start: 08-11-2022 End: 08-11-2022 Registered Recurring DO Yoni Furlong Work Phone: [facility] Work Phone: Start: 07-21-2022 End: 07-22-2022 ambulatory SLY BENSON Facility:H1 Start: 06-23-2022 End: 06-23-2022 ambulatory DO Yoni Furlong Work Phone: [facility] Work Phone: Start: 06-23-2022 End: 06-23-2022 Registered Recurring DO Yoni Furlong Work Phone: [facility] Start: 06-23-2022 End: 06-23-2022 ambulatory DO Yoni Furlong Work Phone: [facility] Work Phone: Start: 06-23-2022 End: 06-23-2022 Registered Recurring DO Yoni Furlong Work Phone: [facility] Start: 06-20-2022 End: 06-21-[address] YONI MULLER Facility:H1 Start: 06-02-2022 End: 06-02-2022 ambulatory DO Yoni Furlong Work Phone: [facility] Work Phone: Start: 06-02-2022 End: 06-02-2022 Registered Recurring DO Yoni Furlong Work Phone: [facility] Start: 05-30-2022 End: 05-31-2022 ambulatory SLY BENSON Facility:H1 Start: 05-13-2022 End: 05-14-2022 ambulatory SLY BENSON Facility:H1 Start: 05-10-2022 End: 05-11-2022 ambulatory SLY BENSON Facility:H1 Start: 05-02-2022 End: 05-02-2022 ambulatory DO Yoni Furlong Work Phone: [facility] Work Phone: Start: 05-02-2022 End: 05-02-2022 Registered Recurring DO Yoni Furlong Work Phone: [facility] Start: 04-28-2022 End: 04-28-2022 Admission to same day surgery center DO Yoni Furlong Work Phone: [facility]-Ultrasound [address] [place] Start: 04-28-2022 End: 04-28-2022 ambulatory DO Yoni Furlong Work Phone: [facility] Work Phone: Start: 04-21-2022 End: 04-21-2022 ambulatory DO Yoni Furlong Work Phone: [facility] Work Phone: Start: 04-21-2022 End: 04-21-2022 Registered Recurring DO Yoni Furlong Work Phone: [facility] Start: 03-26-2022 End: 03-26-2022 Patient encounter procedure DO Yoni Furlong Work Phone: [facility]-CT Scan [address] [place] [address] Start: 10-25-2021 End: 10-25-2021 Registered Recurring MD Alex Trammell Work Phone: [facility] Start: 10-10-2021 End: 10-10-2021 Patient encounter procedure DO Sly Davidhilario II Work Phone: [facility]-CT Scan [address] [place] [address] Start: 10-07-2021 End: 10-07-2021 Registered Recurring DO Sly Benson II Work Phone: [facility] Start: 10-07-2021 Registered Recurring DO Clinton Benson II Work Phone: [facility] Start: 09-24-2021 AUDIT Yoni hyatt Work Phone: [facility] Work Phone: Start: 09-23-2021 Chart Update Yoni hyatt Work Phone: [facility] Work Phone: Start: 09-17-2021 Office outpatient ne w 30 minutes Yoni Muller Work Phone: [facility] Work Phone: Start: 09-17-2021 Office outpatient vi sit 15 minutes Yoni Muller Work Phone: WB-Huhvjrh-Gxpet Main Work Phone: Start: 01-22-2021 Office outpatient vi sit 15 minutes Yoni Muller Work Phone: JQ-Rzyntpe-Yjmsnodf 150 Work Phone: Start: 01-12-2021 AUDIT Yoni Holloway ng Work Phone: [facility] Work Phone: Start: 12-25-2020 Office outpatient vi sit 25 minutes Yoni Hollowayng Work Phone: LG-Lcmupmf-Qpaxuyhb 150 Work Phone: Start: 12-25-2020 Patient encounter procedure Yoni Muller Work Phone: [facility] Work Phone: Start: 12-17-2020 AUDIT Yoni Holloway ng Work Phone: [facility] Work Phone: Start: 12-04-2020 FUV, Provider: Alex Trammell, Status: Pen, Time: 3:00 PM Yoni Muller Work Phone: [facility] Work Phone: Start: 12-04-2020 Patient encounter procedure Yoni Muller Work Phone: [facility] Work Phone: Start: 11-27-2020 Postop follow up vis it related to original px Yoni Muller Work Phone: [facility] Work Phone: Start: 11-27-2020 Quentin Fitzpatrick [facility] Start: 11-13-2020 Alevism Skigitmarian [facility] t[facility]ermatology Start: 10-23-2020 [facility] Procedures Date Procedure Procedure Detail Performing Clinician Start: 09-15-2023 Adult depression screening assessment Yoni Polybioticsng DO Work Phone: Start: 08-06-2023 Computed tomography of abdomen and pelvis with contrast DO YoniAmen.long Work Phone: Start: 08-06-2023 CT of thorax with contrast DO Yoni Gremlnlong Work Phone: Start: 03-05-2023 Computed tomography of abdomen and pelvis with contrast DO Yoni Gremlnlong Work Phone: Start: 03-05-2023 CT of thorax with contrast DO Yoni Gremlnlong Work Phone: Start: 02-06-2023 Adult depression screening assessment Yoni Gremlnlong DO Work Phone: Start: 10-31-2022 Computed tomography of abdomen and pelvis with contrast DO Yoni Gremlnlong Work Phone: Start: 10-31-2022 CT of thorax [...] Adult BMI Screening Adult BMI Screen ing [facility] Start: 09-14-2024 Depression Screening Depression Scre ening [facility] Start: 09-14-2024 Fall Risk Screening Fall Risk Screen ing [facility] Start: 09-14-2024 Tobacco Screening Tobacco Screening [facility] Start: 03-17-2024 End: 03-17-2024 Patient encounter procedure 03/17/2024 4:15 PM EDT Office Visit [facility] Internal [facility] - Family Medicine [address] [place] [address] Yoni Muller DO [address] [place] [address] [facility] Start: 02-07-2024 Administration of va ricella zoster vaccine Zoster (Shingles) Vaccine (1 of 2) [facility] Comment on above: Postponed from 10/02 (Patient Refused) Start: 02-07-2024 Adult BMI Screening Adult BMI Screen ing [facility] Start: 02-07-2024 Depression Screening Depression Scre ening [facility] Start: 02-07-2024 DTaP,Tdap and Td Vac cines (1 - Tdap) DTaP,Tdap and Td Vaccines (1 - Tdap) [facility] Comment on above: Postponed from 10/02 (Patient Refused) Start: 02-07-2024 Tobacco Screening Tobacco Screening [facility] Start: 01-11-2024 Medicare Annual Well ness Visit Medicare Annual Wellness Visit [facility] Comment on above: Postponed from 10/02 (Patient Refused) Start: 10-11-2023 Influenza vaccination Influenza Vacc ine [facility] Comment on above: Postponed from 03/13 (Patient Refused) Start: 09-15-2023 End: 09-15-2023 Patient encounter procedure 09/15/2023 4:00 PM EST Office Visit [facility] - [facility] Medicine [address] [place] [address] Yoni Muller, DO [address], [place] [address] [facility] Start: 08-07-2023 [facility] Start: 08-06-2023 End: 08-07-2023 [facility] Start: 08-06-2023 Adrenocorticotropic hormone measurement [facility] Start: 07-14-2023 [facility] Start: 07-14-2023 [facility] Start: 06-17-2023 Fall Risk Screening Fall Risk Screen ing [facility] Start: 06-16-2023 [facility] Start: 05-19-2023 [facility] Start: 04-21-2023 [facility] Start: 03-24-2023 [facility] Start: 03-13-2023 COVID-19 Vaccine ( season) COVID-19 Vaccine ( season) [facility] Start: 03-13-2023 Influenza vaccination Influenza Vacc ine [facility] Start: 02-24-2023 [facility] Start: 01-27-2023 [facility] Start: 01-27-2023 [facility] Start: 12-30-2022 Adrenocorticotropic hormone measurement [facility] Start: 12-30-2022 [facility] Start: 12-30-2022 [facility] Start: 12-25-2022 [facility] Start: 12-01-2022 [facility] Start: 11-03-2022 [facility] Start: 10-06-2022 [facility] Start: 09-08-2022 [facility] Start: 09-08-2022 [facility] Start: 08-11-2022 [facility] Start: 07-23-2022 [facility] Start: 06-23-2022 [facility] Start: 06-23-2022 Adrenocorticotropic hormone measurement [facility] Start: 06-23-2022 [facility] Start: 06-02-2022 [facility] Start: 05-12-2022 End: 05-12-2022 [facility] Start: 05-12-2022 [facility] Start: 04-28-2022 [facility] Start: 04-28-2022 [facility] Start: 04-28-2022 [facility] Start: 02-19-2021 FUV, Provider: Alex Trammell, Status: Pen, Time: 3:00 PM FUV, Provider: Alex Trammell, Status: Pen, Time: 3:00 PM LH-Erjkppd-Gnzckozn 150 Work Phone: Start: 01-22-2021 FUV, Provider: Alex Trammell, Status: Pen, Time: 3:00 PM FUV, Provider: Alex Trammell, Status: Pen, Time: 3:00 PM HA-Xvhhaqr-Mnvvdlsm 150 Work Phone: Start: 12-25-2020 FUV, Provider: Alex Trammell, Status: Pen, Time: 3:00 PM FUV, Provider: Alex Trammell, Status: Pen, Time: 3:00 PM [facility] Work Phone: Start: 1963 Adult BMI Follow Up Plan Adult BMI Follow Up Plan [facility] Adrenocorticotropic hormone measurement [facility] Adrenocorticotropic hormone measurement [facility] Work Phone: Adrenocorticotropic hormone measurement [facility] Adrenocorticotropic hormone measurement [facility] Adrenocorticotropic hormone measurement [facility] Adrenocorticotropic hormone measurement [facility] Adrenocorticotropic hormone measurement [facility] Adrenocorticotropic hormone measurement [facility] Adrenocorticotropic hormone measurement [facility] Adrenocorticotropic hormone measurement [facility] Basophils [#/volume] in Blood by Automated count [facility] Basophils/100 leukoc ytes in Blood by Automated count [facility] Blood chemistry [facility] Blood chemistry [facility] Comprehensive metabo lic 1999 panel - Serum or Plasma [facility] Comprehensive metabo lic 1999 panel - Serum or Plasma [facility] Comprehensive metabo lic 1999 panel - Serum or Plasma [facility] Comprehensive metabo lic 1999 panel - Serum or Plasma [facility] Comprehensive metabo lic 1999 panel - Serum or Plasma [facility] Comprehensive metabo lic 1999 panel - Serum or Plasma [facility] Comprehensive metabo lic 1999 panel - Serum or Plasma [facility] Comprehensive metabo lic 1999 panel - Serum or Plasma [facility] Comprehensive metabo lic 1999 panel - Serum or Plasma [facility] Comprehensive metabo lic 1999 panel - Serum or Plasma [facility] Computed tomography for radiotherapy planning [facility] Cortisol [Mass/volum e] in Serum or Plasma [facility] Cortisol [Mass/volum e] in Serum or Plasma [facility] Cortisol [Mass/volum e] in Serum or Plasma [facility] Work Phone: Cortisol [Mass/volum e] in Serum or Plasma [facility] Cortisol [Mass/volum e] in Serum or Plasma [facility] CT Abdomen and Pelvi s W contrast IV [facility] CT Abdomen and Pelvi s W contrast IV [facility] CT Abdomen and Pelvi s W contrast IV [facility] CT Abdomen and Pelvi s W contrast IV [facility] CT Chest W contrast IV [facility] CT Chest W contrast IV [facility] CT Chest W contrast IV [facility] CT Chest W contrast IV [facility] Eosinophils/100 leuk ocytes in Blood by Automated count [facility] Erythrocyte distribu tion width [Ratio] by Automated count [facility] Erythrocyte sediment ation rate by Photometric method [facility] Erythrocytes [#/volu me] in Blood [facility] Hematocrit [Volume F raction] of Blood [facility] Hemoglobin [Mass/vol ume] in Blood [facility] Hepatic function panel [facility] Hepatic function panel [facility] Homogenous nuclear A b pattern [Titer] in Serum [facility] Work Phone: Lactate dehydrogenas e [Enzymatic activity/volume] in Unspecified specimen [facility] Lactate dehydrogenas e [Enzymatic activity/volume] in Unspecified specimen [facility] Lactate dehydrogenas e [Enzymatic activity/volume] in Unspecified specimen [facility] Lactate dehydrogenas e [Enzymatic activity/volume] in Unspecified specimen [facility] Lactate dehydrogenas e [Enzymatic activity/volume] in Unspecified specimen [facility] Leukocytes [#/volume ] corrected for nucleated erythrocytes in Blood by Automated coun [facility] Leukocytes [#/volume ] in Blood [facility] Lipase measurement [facility] Lipase measurement [facility] Lipase measurement [facility] Lymphocytes [#/volum e] in Blood by Automated count [facility] Lymphocytes/100 leuk ocytes in Blood by Automated count [facility] MCH [Entitic mass] b y Automated count [facility] MCHC [Mass/volume] b y Automated count [facility] MCV [Entitic volume] by Automated count [facility] Monocytes [#/volume] in Blood by Automated count [facility] Monocytes/100 leukoc ytes in Blood by Automated count [facility] Neutrophils [#/volum e] in Blood by Automated count [facility] Neutrophils/100 leuk ocytes in Blood by Automated count [facility] Nuclear Ab [Titer] in Serum [facility] Work Phone: Nucleated erythrocyt es [Presence] in Blood by Automated count [facility] Patient Education [facility] Work Phone: Platelet mean volume [Entitic volume] in Blood by Automated count [facility] Platelets [#/volume] in Blood [facility] Thyrotropin [Units/v olume] in Serum or Plasma [facility] Thyrotropin [Units/v olume] in Serum or Plasma [facility] Thyrotropin [Units/v olume] in Serum or Plasma [facility] Thyrotropin [Units/v olume] in Serum or Plasma [facility] Thyrotropin [Units/v olume] in Serum or Plasma [facility] Thyrotropin [Units/v olume] in Serum or Plasma [facility] Thyrotropin [Units/v olume] in Serum or Plasma [facility] Thyroxine (T4) free [Mass/volume] in Serum or Plasma [facility] Thyroxine (T4) free [Mass/volume] in Serum or Plasma [facility] Work Phone: Thyroxine (T4) free [Mass/volume] in Serum or Plasma [facility] Thyroxine (T4) free [Mass/volume] in Serum or Plasma [facility] Thyroxine (T4) free [Mass/volume] in Serum or Plasma [facility] Thyroxine (T4) free [Mass/volume] in Serum or Plasma [facility] Ultrasonic guidance for needle [facility] Immunizations Immunization Date Immunization Notes Care Provider Cindi babcock 1945 pneumococcal conjuga te vaccine, 7 valent Quentin Fitzpatrick Dept[facility] of D[facility]atology Payers Date Payer Category Payer Self-pay [id number] 2022 Medicare [id number] Private Health Insurance [id number] 1945 Unknown [id number] 1945 Unknown [id number] 1945 Unknown [id number] 1945 Unknown [id number] 1945 Unknown [id number] 1945 Unknown [id number] 1945 Unknown [id number] 1945 Unknown [id number] Unknown Unknown HCAP/HFA/FAP Active [id number] Unknown [id number] Unknown [id number] Social History Date Type Detail Facility Start: 10-23-2020 Dept. of Dermatology Start: 1945 Sex Assigned At Female [facility] Start: 10-07-2021 End: 06-17-2022 Tobacco smoking status NHIS Never smoked tobacco (finding) [facility] Start: 06-17-2022 End: 09-15-2023 Sex Assigned At [employer] Other Start: 06-17-2022 Tobacco use and exposure Smokeless tobacco non-user [facility] [employer] [facility] Start: 02-06-2023 End: 09-15-2023 Alcohol intake Current drinker of alcohol (finding) [facility] [employer] [facility] Start: 06-17-2022 End: 09-15-2023 History of Social function [facility] Do you belong to any clubs or organizations such as denominational groups, unions, fraternal or athletic groups, or school groups? Yes [facility] Are you now , , , , never or living with a partner? [facility] How often to you hav e a drink containing alcohol? Monthly or less [facility] How many standard dr inks containing alcohol do you have on a typical day? 1 or 2 [facility] How often do you hav e 6 or more drinks on 1 occasion? Never [facility] How hard is it for y ou to pay for the very basics like food, housing, medical care, and heating Not hard at all [facility] Do you feel stress - tense, restless, nervous, or anxious, or unable to sleep at night because your mind is troubled all the time - these days [OSQ] Only a little [facility] Start: 06-17-2022 Alcohol Comment rarely [facility] Start: 1945 Sex Assigned At Not on file [facility] [employer], or [employer] threatened to shut off services in your home in past 12Mo No [facility] Goals Date Patient Goal Desired Activity [...] hypertension with chronic kidney disease, stage III ([facility]) - Basic Metabolic Panel; Future - CBC; Future - Magnesium; Future - Parathyroid Hormone, intact; Future - Phosphorus; Future - Vitamin D 25 hydroxy; Future - Uric acid; Future Her blood pressure is essentially at goal. Her stage 3 chronic kidney disease was discussed. She is using Advil ufvc-qtd-dnoposb and I recommended she use Tylenol instead to help protect her kidneys. She was given a written note with these instructions. Check chronic kidney disease labs. Hyperlipidemia, unspecified hyperlipidemia type - Lipid panel; Future Check lipids. Malignant melanoma of left lower leg ([facility]) Follow up with specialists as directed. Labs [...] and high cholesterol. documented in this encounter [facility] 02-13-2023 Progress note Note Date/Time January 27, 2023 3:58pm [facility] [address] [place] [address] Progress Note Signed Patient: Theresa Luu MR#: [id number] : 1945 Acct:[id number] Age/Sex: 77 / F Adm Date: 3 Loc: XT [facility]: [facility]: Sly Benson II DO Copies to: ~ Date of Service: 01/27/2023 Subjective History of Present Illness HPI: Madison is seen during immunotherapy today and we continue our discussion of goals of care/advance care planning. She has reviewed the making choices booklet and is planning to meet with an ip technology transactions attorney to complete financial POA and business [...] <Electronically signed by DO Efren Burris> 02/13/23 1500 [facility] Work Phone: 1(596) 312-491007-18-2023 Evaluation note* Encounter Date Diagnosis Assessment Notes [...] of the order given to the patient. [employer] Other 06-20-2023 Progress note Author Senia Montez [facility] December 30, 2022 11:06am Note Date/Time December 30, 2022 8:35 am [facility] [place] [address] Hem/Onc Follow Up Note - OP Signed Patient: Theresa Luu MR#: [id number] : 1945 Acct:[id number] Age/Sex: 77 / F Type: REG RCR [...] leg melanoma removed by Dr. Trammell at [facility] in November 162020 with sentinel node [...] and has CT scans scheduled for at [facility]. She is doing well, no major [...] for coordination of care (as documented) and aslp-nh-cbuc counseling of patient and/or family. COUNTS INCLUDE 234 BEDS AT THE [facility] - Medical History Medical History: Medical History [...] <Electronically signed by ANTOINETTE Montez> 12/30/22 1106 [facility] Work Phone: 1(510) 517-973504-24-2023 Progress note Author Sly Benson [facility] November 03, 2022 10:27am Note Date/Time November 03, 2022 10: 22am [facility] [place] [address] Hem/Onc Follow Up Note - OP Signed Patient: Theresa Luu MR#: [id number] : 1945 Acct:[id number] Age/Sex: 77 / F Type: REG RCR [...] continues maint nivo. will repeat imaging in feb/mar and f/u aft. Completed palliative XRT to [...] Up Instructions: cont monthly nivolumab. f/u with PROJECT CONSTRUCTION ASSISTANT MANAGER in 2 months. cbc, cmp, tsh monthly. [...] leg melanoma removed by Dr. Trammell at [facility] in November 162020 with sentinel node [...] and has CT scans scheduled for at [facility]. She is doing well, no major [...] for coordination of care (as documented) and mbmy-yv-zuts counseling of patient and/or family. COUNTS INCLUDE 234 BEDS AT THE [facility] - Medical History Medical History: Medical History [...] % (Auto) 59.6, Lymph % (Auto) 26.5, Perkins % (Auto) 11.2, Eos % (Auto) 1.8, Baso % (Auto) 0.9, Nucleat RBC Rel Count 0.0, Neut # (Auto) 4.0, Lymph # (Auto) 1.8, Perkins # (Auto) 0.8, Eos # (Auto) 0.1, [...] by Sly Benson II, DO> 11/03/22 1027 [facility] Work Phone: 1(640) 590-107003-27-2023 Progress note Author Zenobia Parker [facility] October 06, 2022 11:42am Note Date/Time October 06, 2022 11: 28am [facility] [place] [address] Hem/Onc Follow Up Note - OP Signed Patient: Theresa Luu MR#: [id number] : 1945 Acct:[id number] Age/Sex: 77 / F Type: REG RCR [...] leg melanoma removed by Dr. Trammell at [facility] in November 162020 with sentinel node [...] and has CT scans scheduled for at [facility]. She is doing well, no major [...] 10 point review of systems is negative. COUNTS INCLUDE 234 BEDS AT THE [facility] - Medical History Medical History: Medical History [...] for coordination of care (as documented) and kzcc-ks-lkyn counseling of patient and/or family. Dictated By: Zenobia Parker APRN DD/ 26 Signed By: <Electronically signed by ANTOINETTE Parker> 10/06/22 [address] [facility] Work Phone: 1(819) 288-478303-20-2023 Progress note Author Bebeto Pandya [facility] September 29, 2022 1:11pm Note Date/Time September 29, 2022 9:4 5am [facility] [place] [address] Rad Onc Follow Up Note - OP Signed Patient: Theresa Luu MR#: [id number] : 1945 Acct:[id number] Age/Sex: 76 / F Type: REG RCR [...] a left lower leg melanoma removed at [facility] in November 162020 with sentinel node [...] get her first maintenance dose of the Ancram on August 11, [address]. [address] [...] signed by Bebeto Pandya MD> 09/29/22 [address] [facility] Work Phone: 1(716) 365-500602-27-2023 Progress note Author Sly Benson [facility] September 08, 2022 10:18am Note Date/Time September 08, 2022 10:08am [facility] at [address] [address] Hem/Onc Follow Up Note - OP Signed Patient: Theresa Luu MR#: [id number] : 1945 Acct:[id number] Age/Sex: 76 / F Type: REG RCR Copies to: Yoni ProDO Alex malik MD~ Date of Service: 09/08/2022 Time of [...] leg melanoma removed by Dr. Trammell at [facility] in November 162020 with sentinel node [...] and has CT scans scheduled for at [facility]. She is doing well, no major [...] for coordination of care (as documented) and thww-ko-tpfk counseling of patient and/or family. COUNTS INCLUDE 234 BEDS AT THE [facility] - Medical History Medical History: Medical History [...] by Sly Benson II, DO> 09/08/22 101[address] [facility] Work Phone: 1([phone]) 427-656701-31-2023 Consult note Author Bebeto Pandya [facility] August 12, 2022 1:39pm Note Date/Time August 12, 2022 8 :51am [facility] [place] [address] Rad Onc Consult Note - OP Signed Patient: Theresa Luu MR#: [id number] : 1945 Acct:[id number] Age/Sex: 76 / F Type: REG RCR Copies to: DO Alex Acuña MD, II, DO~ Assessment & Plan (1) Inguinal adenopathy Plan: CT simulation-plan for palliative radiation to the left inguinal qfwhyenyuaslfvq43 Luis in 5 fractions delivered every other [...] a left lower leg melanoma removed at [facility] in November 162020 with sentinel node [...] get her first maintenance dose of the Ancram on August 11, 2022. Her repeat CT [...] ibuprofen. She denies any other pelvic complaints. COUNTS INCLUDE 234 BEDS AT THE [facility] - Medical History Medical History: Medical History [...] signed by Bebeto Pandya MD> 08/12/22 [address] [facility] Work Phone: 1(772) 245-677101-30-2023 Progress note Author Sly Benson [facility] August 11, 2022 11:03am Note Date/Time August 11, 2022 1 0:48am [facility] [place] [address] Hem/Onc Follow Up Note - OP Signed Patient: Theresa Luu MR#: [id number] : 1945 Acct:[id number] Age/Sex: 76 / F Type: REG RCR [...] female referred for melanoma primary patient of Yoin Muller, pastmedical history includes essential hypertension, basal cell carcinoma on her upper back in September 2020hyperlipidemia, malignant tumor of the breast in September 1996 on the left side she had a mastectomy with no chemotherapy or radiation. Outpatient medications include hydrochlorothiazide and simvastatin. She initially had a left lower leg melanoma removed by Dr. Trammell at [facility] in November 162020 with sentinel node [...] and has CT scans scheduled for at [facility]. She is doing well, no major [...] for coordination of care (as documented) and krjc-li-scls counseling of patient and/or family. COUNTS INCLUDE 234 BEDS AT THE [facility] - Medical History Medical History: Medical History [...] % (Auto) 58.6, Lymph % (Auto) 29.6, Perkins % (Auto) 9.0, Eos % (Auto) 2.1, Baso % (Auto) 0.7, Nucleat RBC Rel Count 0.1, Neut # (Auto) 4.4, Lymph # (Auto) 2.2, Perkins # (Auto) 0.7, Eos # (Auto) 0.2, [...] by Sly Benson II, DO> 08/11/22 [address] [facility] Work Phone: 1(842) 798-633012-12-2022 Progress note Author Sly Benson [facility] June 23, 2022 11:22am Note Date/Time June 23, 2022 11:18am [facility] at [address] [address] Hem/Onc Follow Up Note - OP Signed Patient: Theresa Luu MR#: [id number] : 1945 Acct:[id number] Age/Sex: 76 / F Type: REG RCR Copies to: Yoni Larson DO Alex Muller MD~ Date of Service: 06/23/2022 Time of [...] leg melanoma removed by Dr. Trammell at [facility] in November 162020 with sentinel node [...] and has CT scans scheduled for at [facility]. She is doing well, no major [...] for coordination of care (as documented) and sigh-ue-rbbg counseling of patient and/or family. COUNTS INCLUDE 234 BEDS AT THE [facility] - Medical History Medical History: Medical History [...] by Sly Benson II, DO> 06/23/22 [address] [facility] Work Phone: 1(643) 961-162212-12-2022 Progress note Author Sly Benson [facility] June 23, 2022 11:22am Note Date/Time June 23, 2022 11:18am [facility] [place] [address] Hem/Onc Follow Up Note - OP Signed Patient: Theresa Luu MR#: [id number] : 1945 Acct:[id number] Age/Sex: 76 / F Type: REG RCR [...] leg melanoma removed by Dr. Trammell at [facility] in November 162020 with sentinel node [...] and has CT scans scheduled for at [facility]. She is doing well, no major [...] for coordination of care (as documented) and kuxy-wq-bmpx counseling of patient and/or family. COUNTS INCLUDE 234 BEDS AT THE [facility] - Medical History Medical History: Medical History [...] by Sly Benson II, DO> 06/23/22 [address] [facility] Work Phone: 1(996) 223-175911-21-2022 Progress note Author Zenobia Parker [facility] June 02, 2022 11:05am Note Date/Time June 02, 2022 11:01am [facility] at [address] [address] Hem/Onc Follow Up Note - OP Signed Patient: Theresa Luu MR#: [id number] : 1945 Acct:[id number] Age/Sex: 76 / F Type: REG RCR [...] leg melanoma removed by Dr. Trammell at [facility] in November 162020 with sentinel node [...] and has CT scans scheduled for at [facility]. She is doing well, no major [...] for coordination of care (as documented) and wpmf-sg-wfcj counseling of patient and/or family. Dictated By: Zenobia Parker APRN DD/ 1058 Signed By: <Electronically signed by ANTOINETTE Parker> 06/02/22 [address] [facility] Work Phone: 1(853) 113-909611-21-2022 Progress note Author Zenobia Parkre [facility] June 02, 2022 11:05am Note Date/Time June 02, 2022 11:01am [facility] [place] [id number] Hem/Onc Follow Up Note - OP Signed Patient: Theresa Luu MR#: [id number] : 1945 Acct:[id number] Age/Sex: 76 / F Type: REG RCR [...] leg melanoma removed by Dr. Trammell at [facility] in November 162020 with sentinel node [...] and has CT scans scheduled for at [facility]. She is doing well, no major [...] 10 point review of systems is negative. COUNTS INCLUDE 234 BEDS AT THE [facility] - Medical History Medical History: Medical History [...] for coordination of care (as documented) and hitu-mr-paei counseling of patient and/or family. Dictated By: Zenobia Parker APRN DD/ 1058 Signed By: <Electronically signed by ANTOINETTE Parker> 06/02/22 [address] [facility] Work Phone: 1(406) 359-905310-21-2022 Progress note Author Sly Benson [facility] May 02, 2022 4:01pm Note Date/Time May 02, 2022 3 :52pm [facility] [place] [address] Hem/Onc Follow Up Note - OP Signed Patient: Theresa Luu MR#: [id number] : 1945 Acct:[id number] Age/Sex: 76 / F Type: REG RCR [...] leg melanoma removed by Dr. Trammell at [facility] in November 162020 with sentinel node [...] and has CT scans scheduled for at [facility]. She is doing well, no major [...] for coordination of care (as documented) and nfze-pm-uuvx counseling of patient and/or family. COUNTS INCLUDE 234 BEDS AT THE [facility] - Medical History Medical History: Medical History [...] by Sly Benson II, DO> 05/02/22 [address] [facility] Work Phone: 1(763) 875-379610-21-2022 Progress note Author Sly Benson [facility] May 02, 2022 4:01pm Note Date/Time May 02, 2022 3 :52pm [facility] [place] [address] Hem/Onc Follow Up Note - OP Signed Patient: Theresa Luu MR#: [id number] : 1945 Acct:[id number] Age/Sex: 76 / F Type: REG RCR [...] leg melanoma removed by Dr. Trammell at [facility] in November 162020 with sentinel node [...] and has CT scans scheduled for at [facility]. She is doing well, no major [...] for coordination of care (as documented) and xbdj-kc-jqqj counseling of patient and/or family. COUNTS INCLUDE 234 BEDS AT THE [facility] - Medical History Medical History: Medical History [...] by Sly Benson II, DO> 05/02/22 [address] [facility] Work Phone: 1(395) [phone] Progress note Author Sly Benson [facility] April 26, 2022 11:51am Note Date/Time April 21, 2022 9 :31am [facility] at [address] [address] Hem/Onc Follow Up Note - OP Signed Patient: Theresa Luu MR#: [id number] : 1945 Acct:[id number] Age/Sex: 76 / F Type: REG RCR [...] leg melanoma removed by Dr. Trammell at [facility] in November 162020 with sentinel node [...] and has CT scans scheduled for at [facility]. She is doing well, no major [...] for coordination of care (as documented) and zosu-dc-gghv counseling of patient and/or family. COUNTS INCLUDE 234 BEDS AT THE [facility] - Medical History Medical History: Medical History [...] by Sly Benson II, DO> 04/26/22 [address] [facility] Work Phone: 1(307) 515-643910-15-2022 Progress note Author Sly Benson [facility] April 26, 2022 11:51am Note Date/Time April 21, 2022 9 :31am [facility] [place] [address] Hem/Onc Follow Up Note - OP Signed Patient: Theresa Luu MR#: [id number] : 1945 Acct:[id number] Age/Sex: 76 / F Type: REG RCR [...] leg melanoma removed by Dr. Trammell at [facility] in November 162020 with sentinel node [...] and has CT scans scheduled for at [facility]. She is doing well, no major [...] for coordination of care (as documented) and opjk-kj-exra counseling of patient and/or family. COUNTS INCLUDE 234 BEDS AT THE [facility] - Medical History Medical History: Medical History [...] by Sly Benson II, DO> 04/26/22 [address] [facility] Work Phone: 1([phone]) 428-799304-25-2022 Progress note Author Sly Benson [facility] November 04, 2021 7:49pm Note Date/Time October 25, 2021 9:5 8am [facility] [place] [address] Hem/Onc Follow Up Note - OP Signed Patient: Theresa Luu MR#: [id number] : 1945 Acct:[id number] Age/Sex: 76 / F Type: REG RCR [...] leg melanoma removed by Dr. Trammell at [facility] in November 162020 with sentinel node [...] and has CT scans scheduled for at [facility]. She is doing well, no major [...] for coordination of care (as documented) and lklm-ot-ctpj counseling of patient and/or family. COUNTS INCLUDE 234 BEDS AT THE [facility] - Medical History Medical History: Medical History [...] signed by Sly Benson II, DO> 11/04/211948 [facility] Work Phone: 1(672) 146-392504-25-2022 Progress note Author Sly Benson [facility] November 04, 2021 7:49pm Note Date/Time October 25, 2021 9:5 8am [facility] at [address] [address] Hem/Onc Follow Up Note - OP Signed Patient: Theresa Luu MR#: [id number] : 1945 Acct:[id number] Age/Sex: 76 / F Type: REG RCR [...] leg melanoma removed by Dr. Trammell at [facility] in November 162020 with sentinel node [...] and has CT scans scheduled for at [facility]. She is doing well, no major [...] for coordination of care (as documented) and fvzb-zj-ydzc counseling of patient and/or family. COUNTS INCLUDE 234 BEDS AT THE [facility] - Medical History Medical History: Medical History [...] signed by Sly Benson II, DO> 11/04/211948 [facility] Work Phone: 1(763) 326-812103-28-2022 Progress note Author Sly Benson [facility] October 07, 2021 8:58am Note Date/Time October 07, 2021 8:2 8am [facility] [place] [address] Hem/Onc Follow Up Note - OP Signed Patient: Theresa Luu MR#: [id number] : 1945 Acct:[id number] Age/Sex: 76 / F Type: REG RCR Copies to: DO Alex Acuña MD~ Date of Service: 10/07/2021 Time of Service: 08: - Assessment & Plan (1) Melanoma Plan: [...] leg melanoma removed by Dr. Trammell at [facility] in November 162020 with sentinel node [...] and has CT scans scheduled for at [facility]. She is doing well, no major [...] for coordination of care (as documented) and szcl-ai-apmb counseling of patient and/or family. COUNTS INCLUDE 234 BEDS AT THE [facility] - Medical History Medical History: Medical History [...] signed by Sly Benson II, DO> 10/07/21857 [facility] Work Phone: 1(665) 380-987903-28-2022 Progress note Author Sly Benson [facility] October 07, 2021 8:58am Note Date/Time October 07, 2021 8:2 8am [facility] [place] [id number] Hem/Onc Follow Up Note - OP Signed Patient: Theresa Luu MR#: [id number] : 1945 Acct:[id number] Age/Sex: 76 / F Type: REG RCR [...] leg melanoma removed by Dr. Trammell at [facility] in November 162020 with sentinel node [...] and has CT scans scheduled for at [facility]. She is doing well, no major [...] for coordination of care (as documented) and dlpy-mz-vcko counseling of patient and/or family. COUNTS INCLUDE 234 BEDS AT THE [facility] - Medical History Medical History: Medical History [...] by Sly Benson II, DO> 10/07/21 08 [facility] Work Phone: [phone] 207-106105-07-2021 NotePROCEDURE DETAILS Preoperative Diagnosis: Melanoma of lower limb, C43.70 Postoperative Diagnosis: left lower leg me\lanoma Surgeon: Alex Trammell Resident/Fellow/Other Social Sciences Chair: Bambi Ray Muhammad Procedure: 1. WIDE LOCAL [...] 3:00 Left inguinal sentinel lymph node #1-blue 4769, #2 blue 194 Left inguinal nonsentinel node [...] Aguilar MD Furlong, Dennis G, MD - [phone] [] Signatures/Attestation: Note Completion: Attending AttestationI was present for the entire procedure Electronic Signatures: Alex Trammell) (Signed 16-Nov-2020 14:13) Authored: Post-Operative Note, Chart Review, Note Completion Last Updated: 16-Nov-2020 14:13 by Alex Trammell)[facility] 11-16-2020 NoteHistory & Physical Reviewed: I have [...] the note. I personally evaluated the patient [id number] Attending Provider Inpatient Certification StatementObservation patient/other outpatient visits Electronic Signatures: Alex Trammell) (Signed 16-Nov-2020 13:12) Authored: Note Completion Co-Signer: History & Physical Reviewed, ERAS, Consent, Note Completion Ct Tinsley (Resident)) (Signed 16-Nov-2020 10:36) Authored: History & Physical Reviewed, ERAS, Consent, Note Completion Last Updated: 16-Nov-2020 13:12 by Alex Trammell)[facility] 10-16-2020 NoteAccession #: [id number] Pathologist: SURAJ MELGAR MD Date of Procedure: 10/16/2020 Date Received: 10/16/2020 Submitting Physician: ALEX TRAMMELL MD Location: [facility] Copy To/Referring/Attending: QUENTIN FITZPATRICK DO FINAL DIAGNOSIS 4 SLIDES, [facility], #[id number] [A] (BX: 09/28/2020) SKIN, LEFT DISTAL PRETIBIAL [...] REPORT A. 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 Slides received on specimen A only. Slide/Block Description 4 SLIDES, [id number] A. Keep Slides: N Slides Returned: N [facility]:Performed By: #### D #### [id number] History general Narrative - Reported* Type Description Date Medical History breast cancer (1996) Medical History HTN Medical History hyperlipidemia Medical History basal cell carcinoma upper back (September 2020) Medical History metastatic malignant melanoma Comr.se Other 04-20-2014 History of Present illness Narrative* [...] in a prior mole. 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 As [...] the knee to the foot. 1+ edema. [facility] Main Work Phone: 1(259) 140-655103-14-2014 History of Present illness Narrative* Ms. Luu [...] in a prior mole. 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 As [...] the knee to the foot. 1+ edema. [facility] Work Phone: 1(616) 590-403307-15-2013 History of Present illness Narrative* Ms. Luu [...] in a prior mole. Thepatient moved from [place] 8 years ago and has not established [...] the knee to the foot. 1+ edema. XR[facility] [address] Work Phone: 1(243) 625-400206-16-2013 History of Present illness Narrative* Ms. Luu [...] in a prior mole. Thepatient moved from [place] 8 years ago and has not established [...] the knee to the foot. 2+ edema. [place] [address] Work Phone: 1([phone]) 334-656405-25-2013 History of Present illness Narrative* Ms. Luu [...] in a prior mole. Thepatient moved from [place] 8 years ago and has not established [...] the knee to the foot. 2+ edema. [facility] Work Phone: evaluation noteN/ADept. of Dermatology Evaluation note* Diagnosis Onset Date Resolution Status Melanoma acute [facility] Work Phone: Evaluation noteNo assessment information available [facility] Work Phone: Evaluation note* Diagnosis Onset Date Resolution Status Melanoma acute Inguinal adenopathy acute [facility] Work Phone: Evaluation note* Diagnosis Onset Date Resolution Status Inguinal adenopathy acute Melanoma acute [facility] Work Phone: Evaluation note* Diagnosis Onset Date Resolution Status Encounter for antineoplastic immunotherapy acute Inguinal adenopathy acute Melanoma acute [facility] Work Phone: Evaluation note* Diagnosis Onset Date Resolution Status Melanoma acute Encounter for antineoplastic immunotherapy acute Inguinal adenopathy acute Melanoma acute [facility] Work Phone: Evaluation note* Diagnosis Essential (primary) hypertension Unspecified essential hypertension documented [facility] this encounter [facility]* Diagnosis Benign hypertension with chronic kidney disease, stage III ([facility]-HCC)- Primary Hyperlipidemia, unspecified hyperlipidemia type Malignant melanoma of left lower leg (CMS-HCC) Class 2 severe obesity due to excess calories with serious comorbidity and body mass index (BMI) of 35.0 to 35.9 in adult documented in this encounter [facility] Discharge instructionsAmbulatory Orders* Chemotherapy Class Time Frame: 1 Day, Location: Determined By Patient [facility] Work Phone: Hospital Discharge instructionsAmbulatory Orders* Oncology Histology Time Frame: 1 Day, Location: Determined By Patient [facility] Work Phone: InstructionsNot on filedocumented in this encounter [facility] SystemInstructionsNot on filedocumented in this encounter [facility]ructionsNot on filedocumented in this encounter [facility] note Author Sly Benson [facility] May 02, 2022 4:01pm Note Date/Time May 02, 2022 3 :52pm [facility] [place] [address] Hem/Onc Follow Up Note - OP Signed Patient: Theresa Luu MR#: [id number] : 1945 Acct:[id number] Age/Sex: 76 / F Type: REG RCR [...] leg melanoma removed by Dr. Trammell at [facility] in November 162020 with sentinel node [...] and has CT scans scheduled for at [facility]. She is doing well, no major [...] for coordination of care (as documented) and xwsc-dg-kdtp counseling of patient and/or family. COUNTS INCLUDE 234 BEDS AT [facility] - Medical History Medical History: Medical History [...] by Sly Benson II, DO> 05/02/22 1601 [facility] Work Phone: Progress note Author Zenobia Parker [facility] June 02, 2022 11:05am Note Date/Time June 02, 2022 11:01am [facility] [place] [address] Hem/Onc Follow Up Note - OP Signed Patient: Theresa Luu MR#: [id number] : 1945 Acct:[id number] Age/Sex: 76 / F Type: REG RCR [...] leg melanoma removed by Dr. Trammell at [facility] in November 162020 with sentinel node [...] and has CT scans scheduled for at [facility]. She is doing well, no major [...] 10 point review of systems is negative. COUNTS INCLUDE 234 BEDS AT [facility] - Medical History Medical History: Medical History [...] for coordination of care (as documented) and yafh-sp-irmz counseling of patient and/or family. Dictated By: Zenobia Parker APRN DD/ 1058 Signed By: <Electronically signed by ANTOINETTE Parker> 06/02/22 1105 [facility] Work Phone: Progress note Author Sly Benson [facility] June 23, 2022 11:22am Note Date/Time June 23, 2022 11:18am [facility] [place] [id number] Hem/Onc Follow Up Note - OP Signed Patient: Theresa Luu MR#: [id number] : 1945 Acct:[id number] Age/Sex: 76 / F Type: REG RCR [...] leg melanoma removed by Dr. Trammell at [facility] in November 162020 with sentinel node [...] and has CT scans scheduled for at [facility]. She is doing well, no major [...] maybe 3 days. worse after hot showers. [employer] really works for this. - Physical Exam [...] for coordination of care (as documented) and awob-jh-pztu counseling of patient and/or family. COUNTS INCLUDE 234 BEDS AT [facility] - Medical History Medical History: Medical History [...] by Sly Benson II, DO> 06/23/22 1122 [facility] Work Phone: Progress note Author Sly Benson [facility] August 11, 2022 11:03am Note Date/Time August 11, 2022 1 0:48am [facility] [place] [address] Hem/Onc Follow Up Note - OP Signed Patient: Theresa Luu MR#: [id number] : 1945 Acct:[id number] Age/Sex: 76 / F Type: REG RCR [...] leg melanoma removed by Dr. Trammell at [facility] in November 162020 with sentinel node [...] and has CT scans scheduled for at [facility]. She is doing well, no major [...] for coordination of care (as documented) and qugs-pg-[id number] counseling of patient and/or family. COUNTS INCLUDE 234 BEDS AT THE [facility] - Medical History Medical History: Medical History [...] % (Auto) 58.6, Lymph % (Auto) 29.6, Perkins % (Auto) 9.0, Eos % (Auto) 2.1, Baso % (Auto) 0.7, Nucleat RBC Rel Count 0.1, Neut # (Auto) 4.4, Lymph # (Auto) 2.2, Perkins # (Auto) 0.7, Eos # (Auto) 0.2, [...] by Sly Benson II, DO> 08/11/22 1103 [facility] Work Phone: Progress note Author Sly Benson [facility] September 08, 2022 10:18am Note Date/Time September 08, 2022 10:08am [facility] [place] [address] Hem/Onc Follow Up Note - OP Signed Patient: Theresa Luu MR#: [id number] : 1945 Acct:[id number] Age/Sex: 76 / F Type: REG RCR [...] leg melanoma removed by Dr. Trammell at [facility] in November 162020 with sentinel node [...] and has CT scans scheduled for at [facility]. She is doing well, no major [...] for coordination of care (as documented) and mnaz-dg-zyvy counseling of patient and/or family. COUNTS INCLUDE 234 BEDS AT THE [facility] - Medical History Medical History: Medical History [...] Oxygen Delivery Method Room Air Distress Screening: CUBA Distress Screening Start: 05/06/22 15:57 Freq: Q30D [...] <Electronically signed by Sly Benson II, > 09/08/22 1018 [facility] Work Phone: Progress note Author Senia Montez [facility] December 30, 2022 11:06am Note Date/Time December 30, 2022 8:35 am [facility] [place] [address] Hem/Onc Follow Up Note - OP Signed Patient: Theresa Luu MR#: [id number] : 1945 Acct:[id number] Age/Sex: 77 / F Type: REG RCR Copies to: DO Alex Acuña MD, II, ~ Date of Service: 12/30/2022 Time of Service: [...] leg melanoma removed by Dr. Trammell at [facility] in November 162020 with sentinel node [...] and has CT scans scheduled for at [facility]. She is doing well, no major [...] for coordination of care (as documented) and eeka-wb-qruw counseling of patient and/or family. COUNTS INCLUDE 234 BEDS AT THE [facility] - Medical History Medical History: Medical History [...] 12/30/22] Dictated By: Senia Montez APRN DD/ [id number] Signed By: <Electronically signed by ANTOINETTE Montez> 12/30/22 1106 [facility] Work Phone: Progress note Author Sly Benson [facility] March 06, 2023 2:40pm Note Date/Time March 06, 2023 2: 37pm [facility] [place] [address] Hem/Onc Follow Up Note - OP Signed Patient: Theresa Luu MR#: [id number] : 1945 Acct:[id number] Age/Sex: 77 / F Type: REG RCR [...] leg melanoma removed by Dr. Trammell at [facility] in November 162020 with sentinel node [...] and has CT scans scheduled for at [facility]. She is doing well, no major [...] for coordination of care (as documented) and lbky-xl-lgqn counseling of patient and/or family. COUNTS INCLUDE 234 BEDS AT THE [facility] - Medical History Medical History: Medical History [...] % (Auto) 66.0, Lymph % (Auto) 23.1, Perkins % (Auto) 8.4, Eos % (Auto) 1.7, Baso % (Auto) 0.8, Nucleat RBC Rel Count 0.0, Neut # (Auto) 4.1, Lymph # (Auto) 1.4, Perkins # (Auto) 0.5, Eos # (Auto) 0.1, [...] by Sly Benson II, DO> 03/06/23 1440 [facility] Work Phone: Progress note Author Sly Benson [facility] August 07, 2023 11:49am Note Date/Time August 07, 2023 1 1:21am [facility] [place] [address] Cancer Center Note Signed Patient: Theresa Luu MR#: [id number] : 1945 Acct:[id number] Age/Sex: 77 / F Type: REG AMB [...] leg melanoma removed by Dr. Trammell at [facility] in November 162020 with sentinel node [...] and has CT scans scheduled for at [facility]. She is doing well, no major [...] maybe 3 days. worse after hot showers. ReInnervate really works for this. 08/11/22 She is [...] up with labs and imaging for review. COUNTS INCLUDE 234 BEDS AT THE [facility] Medical History Medical History Malignant tumor of [...] by Sly Benson II, DO> 08/07/[address] [facility] Work Phone: Reason for referral (narrative)* [...] section and content) DATE CREATED AUTHOR 11/07/2020 [facility] DATE CREATED AUTHOR AUTHOR'S ORGANIZ ATION 12/04/2020 [facility] DATE CREATED AUTHOR AUTHOR'S ORGANIZ ATION 12/10/2020 [facility] DATE CREATED AUTHOR AUTHOR'S ORGANIZ ATION 05/12/2021 [facility] DATE CREATED AUTHOR AUTHOR'S ORGANIZ ATION 09/23/2021 [facility] DATE CREATED AUTHOR AUTHOR'S ORGANIZ ATION 09/28/2021 [facility] DATE CREATED AUTHOR AUTHOR'S ORGANIZ ATION 10/06/2022 [facility] DATE CREATED AUTHOR AUTHOR'S ORGANIZ ATION 09/19/2023 [facility] Care Teams (unrecognized sec tion and [...] Sly Benson II, DO Attending Provider Active Inventory Control Coordinator Relationship Specialty Start Date End Date Yoni Muller DO [address], [place] [address] PCP - General Family Medicine 04/21/22 Inventory Control Coordinator Relationship Specialty Start Date End Date Yoni Muller DO [address], [place] [address] PCP - General Family Medicine 04/21/22 Inventory Control Coordinator Relationship Specialty Start Date End Date Yoni Muller DO [address], [place] [address] PCP - General Family Medicine 04/21/22 Goals [...] BE BASED ON THE PRIMARY CLINICAL RECORDS. [facility]. provides no warranty or guarantee of the accuracy or completeness of information in this document.
--- NOTE | 2023-10-01 08:58 | XR_ITS ---
The [address] [address] Patient Name: VIKKI LUU MRN: [id number] date: 1945 Sex: F Assigned Patient Location: [facility] Current Patient Location: Accession/Order Number: [id number] Exam Date: 10/01/2023 08:50 Report Date: 10/02/2023 07:23 At the request of: RAZ PRO Procedure: XR wrist LT min 3V PROCEDURE: XR wrist LT min 3V HISTORY: Injury Of Left Wrist S69.92XA ; fell one week ago COMPARISON: XR hand left 09/23/2023 FINDINGS: BONES:No fracture, dislocation, bone lesion. Multifocal degenerative joint disease, most notable involving the scaphoid-trapezium and the trapezium-first metacarpal joints. SOFT TISSUES:No visible soft tissue swelling. Degenerative calcification of the triangular fibrocartilage. EFFUSION:None visible. OTHER: Negative. XR/XR wrist LT min 3V IMPRESSION: 1. No acute bone abnormality. Moderate degenerative changes. Electronically authenticated by: JELENA ROSE Date: 10/02/2023 07:23
== END 2023-10-01 08:30 | disposition home or self-care (01) ==
LOC: RAD 08:39
PROVIDERS: PCP Family Medicine; Visit Provider Family Medicine
DX: S69.92XA Unspecified injury of left wrist, hand and finger(s), initial encounter (principal)
CPT/HCPCS: 73110

== ENCOUNTER 2023-10-28 07:13 | Outpatient (OUT) | payer MEDICARE, SELFPAY ==
--- OUTSIDE RECORDS SUMMARY | 2023-10-28 07:18 | XMS_ITS | CCD ---
Author Organization [facility] Care Team Providers Care 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 Name Role Phone Quentin Fitzpatrick Unavailable Unavailable Yohana Yoni Larson Unavailable Unavailable Unavailable Quentin Fitzpatrick Unavailable Unavailable DO Sly Benson II Attending Provider [phone] Yohana, DO [place] Primary Care Provider MD Alex Trammell Referring Provider DO Sly Benson II Attending Provider Yohana, Yoni Primary Care Provider MD Alex Trammell Referring Provider [phone] MD Alex Trammell Attending Provider [phone] Yohana, DO [place] Primary Care Provider [phone] DO Sly Benson II Attending Provider MD Alex Trammell Referring Provider Yohana, Yoni Primary Care Provider MD Alex Trammell Attending Provider DO Manan Benson IIothy J Attending Provider [phone] MD Alex Trammell Referring Provider [phone] DO Manan Benson IIothy J Attending Provider MD Alex Trammell Referring Provider [phone] Yohana, DO [place] Primary Care Provider MD Alex Trammell Attending Provider Kelley II, DO Sly Jeffrey Attending Provider MD Alex Trammell Referring Provider MD Alex Trammell Referring Provider MD Alex Trammell Referring Provider Adamowicz II, DO Sly Jeffrey Attending Provider [phone] Furlong, DO Yoni Primary Care Provider [phone] MD Alex Trammell Referring Provider Adamconnoricz II, DO Sly Jeffrey Attending Provider Furlong, DO Yoni Primary Care Provider [phone] MD Alex Trammell Referring Provider Adamowicz II, DO Sly Jeffrey Attending Provider Furlong, DO [place] Primary Care Provider [phone] MD Alex Trammell Referring Provider [phone] JASONICZ, SLY J Admitting Unavailable FURLONG, DR YONI Larson [...] Admitting Unavailable ADAMOWICZ, SLY J Consulting Unavailable SARANYALOEDMAR, DR YONI Larson Primary Care Unavailable ADAMOWICZ, SLY J Attending Unavailable ADAMOWICZ, SLY J Admitting Unavailable ADAMOWICZ, SLY J Consulting Unavailable FURLONG, DR VANCENIS G Primary Care Unavailable KELLEY, SLY Jeffrey Attending Unavailable ADAMOWICZ, LSY J Admitting Unavailable ADAMOWICZ, SLY J Consulting Unavailable ADAMOWICZ, SLY J Attending Unavailable ADAMOWICZ, SLY J Admitting Unavailable ADAMOWICZ, SLY J Consulting Unavailable Davidowicz II, DO Sly J Attending Provider Yohana, DO [place] Primary Care Provider [phone] MD Alex Trammell Referring Provider [phone] Kelley II, DO Sly Jeffrey Attending Provider [phone] Yohana, DO [place] Primary Care Provider MD Alex Trammell Referring Provider Regino Kimber Unavailable Kelley II, DO Sly Jeffrey Attending Provider Yohana, DO [place] [facility] Care Provider MD Alex Trammell Referring Provider Kelley II, DO Sly Jeffrey Attending Provider Yohana, DO [place] Primary Care Provider MD Alex Trammell Referring Provider Kelley II, DO Sly Jeffrey Attending Provider [phone] Yohana, DO [place] [facility] Provider MD Alex Trammell Referring Provider [phone] Yoni Muller DO Primary Care Provider [phone] Kelley II, Sly Jeffrey Admitting Unavaila ble Kelley II, Sly Jeffrey Attending Unavaila Yoni Anaya [facility] Unavailable Kelley II, Sly Jeffrey Admitting Unavaila ble Kelley II, Sly Jeffrey Attending Unavaila Alex Baumann Referring Unavailab le Yoni Muller [facility] Unavailable Allergies Allergy Classification Reported Allergen(s) Allergy Type Date of Onset Reaction(s) Facility (3 sources) No Alert Propensity to adverse reactions to drug 1 [facility] (2 sources) Penicillin Drug Allergy Unknown [facility] Repository (4 sources) Penicillins Propensity to adverse reactions to drug 2 [facility] (1 source) Penicillins Drug allergy (disorder) 4 [facility] Repository Medications Current Medications Medication Drug Class(es) Dates Sig (Normalized) Sig (Original) ascorbic acid 500 mg oral tablet (4 sources) Vitamin C Start: 3 take 1 tablet by mouth in the morning ascorbic acid (VITAMIN C) 500 mg tablet Take 1 tablet (500 mg total) by mouth in the morning. 100 tablet 0 02/06/2023 Active diclofenac sodium 0.01 mg/mg topical gel (1 source) Nonsteroidal Anti-inflammator y Drug Start: 4 diclofenac sodium (VOLTAREN) 1 % gel Apply 2 g topically in the morning and 2 g at noon and 2 g in the evening and 2 g before bedtime. 100 g 0 09/30/2023 Active hydroCHLOROthiazide 25 mg oral tablet (20 sources) Thiazide Diuretic Start: 2 End: 4 take 1 tablet by mouth once daily hydroCHLOROthiazide (HYDRODIURIL) 25 mg tablet Indications: Essential (primary) hypertension TAKE 1 TABLET BY MOUTH DAILY 30 tablet 1 09/08/2023 Active microencapsulated potassium chloride 10 meq extended release oral tablet (11 sources) Start: 4 take 1 tablet by [...] 06, 2022 9:21am Potassium Chlori de Active predniSONE 20 mg oral tablet (1 source) Start: 09-30-2023 End: 10-05-2023 take 1 tablet by mouth in the morning, then take 1 tablet by mouth at bedtime predniSONE (DELTASONE) 20 mg tablet Take 1 tablet (20 mg total) by mouth in the morning and 1 tablet (20 mg total) before bedtime. Do all this for 5 days. 10 tablet 0 09/30/2023 10/05/2023 Active rosuvastatin calcium 10 mg oral tablet (20 sources) HMG-CoA Reductase Inhibitor Start: 10-04-2021 take 1 tablet by mouth once daily rosuvastatin (CRESTOR) 10 mg tablet Indications: Hyperlipidemia, unspecified TAKE 1 TABLET BY MOUTH EVERY DAY 90 tablet 1 07/28/2023 Active vitamin b12 0.1 mg oral tablet (4 sources) Vitamin B12 Start: 02-06-2023 take 1 [...] to procedure. take 1 tablet by enrike every twenty-four hours diazePAM 5 MG 1 [...] postoperative seroma] Episodic Disorders of lipid metabolism (13 sources) Pure hypercholesterolemia, unspecified; Translations: [Pure hypercholesterolemia] Onset: 04-28-2022 Chronic Essential hypertension (5 sources) Essential hypertension; Translations: [Essential (primary) hypertension] [...] site(s), without mention of complication] Episodic Other injuries and conditions due to external causes (1 source) Injury of left wrist; Translations: [Unspecified injury of left wrist, hand and finger(s), initial encounter] 09-30-2023 Episodic Other nervous system disorders (1 source) Pain due to neoplastic disease; 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)] Chronic Other nutritional; endocrine; and metabolic disorders (5 sources) Severe obesity; Translations: [Morbid (severe) obesity [...] [Cellulitis and abscess of unspecified sites] Episodic Past or Other Problems Problem Classification Problem Date Documented Da te Episodic/Chronic Mood disorders (4 sources) Mood disorders Onset: 02-06-2023 Resolved: 09-30-2023 02-06-2023 Residual codes; unclassified (2 sources) No current problems or disability; Translations: [Other specified conditions influencing health status] Onset: 11-13-2020 Episodic Results Test Name Value Interpretation Reference Range Facility XR Wrist - left 3 ViewsOrder ed By: Caty Gaona on 2023 Radiology Study observation (narrative) [facility] XR Wrist - left 3 ViewsOrder ed By: Caty Gaona on 10-01-2023 [facility] Basic Metabolic Panelon Anion gap [Moles/Vol] 7 mmol/L 5 - 15 mmol/L [facility] Calcium [Mass/Vol] 9.5 mg/dL 8.5 - 10. 5 mg/dL [facility] Chloride [Moles/Vol] 101 mmol/L 98 - 10 9 mmol/L [facility] CO2 [Moles/Vol] 32 mmol/L 22 - 32 mmol/L [facility] Creatinine [Mass/Vol] 0.96 mg/dL 0.40 - 1.00 mg/dL [facility] Comment on above: METHOD TRACEABLE TO IDKS STANDARD eGFR (CKD-EPI)non-race dependent 61 - PINF [facility] Comment on above: Reported eGFR is based on the CKD-EPI 2020 equation that does not use a race coefficient. Glucose [Mass/Vol] 107 mg/dL High 65 - 99 mg/dL [facility] Interpretation and review of laboratory results Abnormal [facility] Potassium [Moles/Vol] 3.3 mmol/L Low 3.5 - 5.0 mmol/L [facility] Sodium [Moles/Vol] 140 mmol/L 134 - 146 mmol/L [facility] Urea nitrogen [Mass/Vol] 22 mg/dL 5 - 27 mg/dL [facility] CBC without diffon Erythrocyte distribution width (RBC) [Ratio] 13.9 % 11.5 - 15.0 % [facility] Hematocrit (Bld) [Volume fraction] 39.4 % 35 - 47 % [facility] Hemoglobin (Bld) [Mass/Vol] 13.5 g/dL 11.7 - 15.5 g/dL [facility] MCH (RBC) [Entitic mass] 30.4 pg 27 - 34 pg [facility] MCHC (RBC) [Mass/Vol] 34.2 g/dL 32 - 3 6 g/dL [facility] MCV (RBC) [Entitic vol] 89 fL 80 - 100 fL [facility] Platelet mean volume (Bld) [Entitic vol] 7.9 fL 7 - 12 fL [facility] Platelets (Bld) [#/Vol] 202 10*3/uL [facility] RBC (Bld) [#/Vol] 4.43 10*6/uL [facility] WBC corrected for nucl RBC Auto (Bld) [#/Vol] 6.6 [facility] Lipid 1996 panelon 4 Cholesterol [Mass/Vol] 154 mg/dL 150 - 200 mg/dL [facility] Cholesterol in HDL [Mass/Vol] 76 mg/dL 39 - PINF mg/dL [facility] Comment on above: HDL <40 mg/dL - High Risk HDL > or = 40mg/dL- Desirable HDL >60 mg/dL - Negative Risk Cholesterol in LDL [Mass/Vol] 52 mg/dL NINF - 130 mg/dL [facility] Comment on above: LDL <100 mg/dL - Desirable LDL >160 mg/dL - High Risk Cholesterol in VLDL [Mass/Vol] 26 mg/dL 0 - 30 mg/dL [facility] Cholesterol.total/Chol esterol in HDL [Mass ratio] 2.0 {ratio} 1.0 - 5.0 [facility] Triglyceride [Mass/Vol] 132 mg/dL 27 - 150 mg/dL [facility] Magnesiumon 09-15-2023 Magnesium [Mass/Vol] 1.9 mg/dL 1.8 - 2 .6 mg/dL [facility] No Panel Informationon 09-14 [facility] Parathyrin.intact [Mass/Vol] on 09-15-2023 [facility] Parathyroid Hormone, intacto n 09-15-2023 Parathyrin.intact [Mass/Vol] 36 pg/mL 12 - 88 pg/mL [facility] Phosphoruson 09-15-2023 Phosphate [Mass/Vol] 3.6 mg/dL 2.4 - 4 .9 mg/dL [facility] Uric acidon 09-15-2023 Urate [Mass/Vol] 5.4 mg/dL 2.6 - 7.2 mg/dL [facility] Vitamin D 25 hydroxyon 09-14 Vitamin D+Metabolites [Mass/Vol] 28.4 ng/mL Low 30 - 100 ng/mL [facility] Comment on above: Vitamin D status 25 [place] Vitamin D Deficiency <20 ng/mL Insufficiency 20-29 ng/mL Sufficiency 30-100 ng/mL Toxicity >100 ng/mL NOTE: A pediatric reference range has not been established by the traveling construction superintendent of this kit. The [place] [employer] recommends a Vitamin D level of = or >20ng/mL in infants and children. Vitamin D+Metabolites [Mass/ Vol]on 09-15-2023 Interpretation and review of laboratory results Abnormal [facility] Complete Blood Count Auto Di ffon 08-07-2023 Basophils (Bld) [#/Vol] 0.0 10*3/uL Normal 0.0-0.2 [facility] Comment on above: Result Comment: PERF ORMED BY: [facility] [address] [place] [address] PATHOLOGIST CRISIS WORKER WAYLON SAUNDERS M.D. Performed By: #### C BC ####[place] [id number] [facility] Basophils/100 WBC (Bld) 0.5 % Normal . [facility] Comment on above: Performed By: #### C BC ####[place] [id number] [facility] Eosinophils (Bld) [#/Vol] 0.0 10*3/uL Normal 0.0-0.45 [facility] Comment on above: Performed By: #### C BC ####[address] Eosinophils/100 WBC (Bld) 0.1 % Normal . [facility] Comment on above: Performed By: #### C BC ####[address] Erythrocyte distribution width (RBC) [Ratio] 13.6 % Normal 11.9-15.3 [facility] Comment on above: Performed By: #### C BC ####[address] Hematocrit (Bld) [Volume fraction] 37.0 % Normal 34.0-46.4 [facility] Comment on above: Performed By: #### C BC ####[address] Hemoglobin (Bld) [Mass/Vol] 12.8 g/dL Normal 11.8-15.4 [facility] Comment on above: Performed By: #### C BC ####[place] [id number] [facility] Lymphocytes (Bld) [#/Vol] 1.1 10*3/uL Normal 1.00-4.8 [facility] Comment on above: Performed By: #### C BC ####[place] [id number] [facility] Lymphocytes/100 WBC (Bld) 13.9 % Normal . [facility] Comment on above: Performed By: #### C BC ####[place] [id number] [facility] MCH (RBC) [Entitic mass] 30.2 pg Normal 24.7-34.3 [facility] Comment on above: Performed By: #### C BC ####[address] MCV (RBC) [Entitic vol] 87.3 fL Normal 80-100 [facility] Comment on above: Performed By: #### C BC ####[address] Mean Corpuscular HGB Conc 34.6 g/dL Normal 32.0-35.0 [facility] Comment on above: Performed By: #### C BC ####[address] Monocytes (Bld) [#/Vol] 0.5 10*3/uL Normal 0.0-0.8 [facility] Comment on above: Performed By: #### C BC ####[address] Monocytes/100 WBC (Bld) 6.4 % Normal . [facility] Comment on above: Performed By: #### C BC ####[address] Neutrophils (Bld) [#/Vol] 6.0 10*3/uL Normal 1.8-7.7 [facility] Comment on above: Performed By: #### C BC ####[address] Neutrophils/100 WBC (Bld) 79.1 % Normal . [facility] Comment on above: Performed By: #### C BC ####[address] NRBC% 0.0 /100{WBC} Normal 0-0.5 [facility] Comment on above: Performed By: #### C BC ####[address] Platelet mean volume (Bld) [Entitic vol] 7.3 fL Normal 6.3-10.7 [facility] Comment on above: Performed By: #### C BC ####[facility] [place] [address] [facility] Platelets (Bld) [#/Vol] 202 10*3/uL Normal 150-450 [facility] Comment on above: Performed By: #### C BC ####[place] [address] [place] [address] [facility] RBC (Bld) [#/Vol] 4.24 10*6/uL Normal 3.60-5.00 [facility] Comment on above: Performed By: #### C BC ####[place] [address] [place] [id number] [facility] WBC (Bld) [#/Vol] 7.6 10*3/uL Normal 3.8-11.6 [facility] Comment on above: Performed By: #### C BC ####[place] [id number] [facility] Adrenocorticotropic Hormone PLon 08-06-[address] 21.1 pg/mL Normal 7.2-63.3 [facility] Comment on above: Result Comment: ACTH reference interval for samples collected between 7 and 10 AM. Performed at: [facility] [address] [id number] Tunnel Kiln Repairer: Coleman Lacy PhD, Phone: [phone] PERFORMED BY: [facility] [address] [place] [id number] PATHOLOGIST CRISIS WORKER WAYLON SAUNDERS M.D. Performed By: #### A [facility] #### [facility] , Alanine aminotransferase [En zymatic activity/volume] in Serum or PlasmaOrdered By: Sly Benson on 08-06-2023 ALT [Catalytic activity/Vol] 23 U/L [facility] Albumin [Mass/volume] in Ser um or Plasma by Bromocresol green (BCG) dye binding methoOrdered By: Sly Benson on 08-06-2023 Albumin BCG dye [Mass/Vol] 4.0 g/dL 3.5-5.7 [facility] Alkaline phosphatase [Enzyma tic activity/volume] in Serum or PlasmaOrdered By: Sly Benson on 08-06-2023 ALP [Catalytic activity/Vol] 95 U/L 34-104 [facility] Aspartate aminotransferase [ Enzymatic activity/volume] in Serum or PlasmaOrdered By: Sly Benson on 08-06-2023 AST [Catalytic activity/Vol] 29 U/L 13-39 [facility] Bilirubin.total [Mass/volume ] in Serum or PlasmaOrdered By: Sly Benson on 08-06-2023 Bilirubin [Mass/Vol] 0.6 mg/dL 0.3-1.0 [facility] CT abdomen pelvis w conon CT abdomen pelvis w con [facility] [place] [address] CT Scan Report Signed Patient: Theresa Luu MR#: [id number] : 1945 Acct:[id number] Age/Sex: 77 / F ADM Date: 08/06/23 Loc: Room: Type: [facility] Attending Dr: Sly Benson II DO Copies to: Sly Benson II, DO Ordering Provider: Sly Benson II, DO Date of Service: 08/06/23 CT/CT abdomen pelvis w con: surveillance ([id number]) CT/CT chest w con: surveillance CT CHEST, [...] Monroe Jr., D.O.08/06/2023 2:43 PM Dictation Location: [place] [address] Transcribed By: [facility] 08/06/23 1443 Dictated By: Sylvain Monroe Jr, DO 08/06/23 1430 Signed By: 08/06/23 1443 Normal [facility] Calcium [Mass/volume] in Ser um or PlasmaOrdered By: Sly Benson on 08-06-2023 Calcium [Mass/Vol] 9.2 mg/dL 8.6-10.3 [facility] Carbon dioxide, total [Moles /volume] in Serum or PlasmaOrdered By: Sly Benson on 08-06-2023 CO2 [Moles/Vol] 30.5 mmol/L 21.0-31.0 [facility] Chloride [Moles/volume] in S mellissa or PlasmaOrdered By: Sly Benson on 08-06-2023 Chloride [Moles/Vol] 104 mmol/L 98-107 [facility] Comprehensive Metabolic Pane eileen 08-06-2023 Albumin [Mass/Vol] 4.0 g/dL Normal 3.5-5.7 [facility] Comment on above: Performed By: #### T SH3, T4F, LDH, CMP ####[place] [address] [place] [id number] [facility] Albumin/Globulin [Mass ratio] 1.3 {ratio} Normal [facility] Comment on above: Performed By: #### T SH3, T4F, LDH, CMP ####[place] [id number] [facility] ALP [Catalytic activity/Vol] 95 U/L Normal 34-104 [facility] Comment on above: Performed By: #### T SH3, T4F, LDH, CMP ####[place] [id number] [facility] ALT [Catalytic activity/Vol] 23 U/L Normal 7-52 [facility] Comment on above: Performed By: #### T SH3, T4F, LDH, CMP ####[place] [id number] [facility] Anion gap [Moles/Vol] Not performed Normal 6.0-15.0 [facility] Comment on above: Performed By: #### T SH3, T4F, LDH, CMP ####[place] [id number] [facility] AST [Catalytic activity/Vol] 29 U/L Normal 13-39 [facility] Comment on above: Performed By: #### T SH3, T4F, LDH, CMP ####[place] [id number] [facility] Bilirubin [Mass/Vol] 0.6 mg/dL Normal 0.3-1.0 [facility] Comment on above: Performed By: #### T SH3, T4F, LDH, CMP ####[place] [id number] [facility] Calcium [Mass/Vol] 9.2 mg/dL Normal 8.6-10.3 [facility] Comment on above: Performed By: #### T SH3, T4F, LDH, CMP ####[place] [address] [place] [address] [facility] Chloride [Moles/Vol] 104 mmol/L Normal 98-107 [facility] Comment on above: Performed By: #### T SH3, T4F, LDH, CMP ####[place] [address] [place] [id number] [facility] CO2 [Moles/Vol] 30.5 mmol/L Normal 21.0-31.0 [facility] Comment on above: Performed By: #### T SH3, T4F, LDH, CMP ####[place] [address] [place] [address] [facility] Creatinine [Mass/Vol] 0.87 mg/dL Normal 0.60-1.20 [facility] Comment on above: Performed By: #### T SH3, T4F, LDH, CMP ####[place] [id number] [facility] Creatinine Clr Calc Pharmacy 57.70 [facility] Comment on above: Performed By: #### T SH3, T4F, LDH, CMP ####[place] [id number] [facility] GFR/1.73 sq M.predicted MDRD (S/P/Bld) [Vol rate/Area] mL/min/{1.73_m2} [facility] Comment on above: Performed By: #### T SH3, T4F, LDH, CMP ####[place] [id number] [facility] Globulin (S) [Mass/Vol] 3.0 g/dL [facility] Comment on above: Performed By: #### T SH3, T4F, LDH, CMP ####[place] [address] [place] [id number] [facility] Glucose [Mass/Vol] 95 mg/dL Normal 70-100 [facility] Comment on above: Result Comment: [place] Glucose Reference Range is dependent on time and content of last meal. Glucose of more than 200 mg/dL in a nonstressed, ambulatory subject supports the diagnosis of Diabetes Mellitus. ADA recommended reference range Performed By: #### T SH3, T4F, LDH, CMP ####[place] [address] [place] [address] [facility] Potassium Normal 3.5-5.1 [facility] Comment on above: Result Comment: Spec imen hemolyzed, redraw requested Performed By: #### T SH3, T4F, LDH, CMP ####[address] [address] [facility] Protein [Mass/Vol] 7.0 g/dL Normal 6.4-8.9 [facility] Comment on above: Performed By: #### T SH3, T4F, LDH, CMP ####[place] [id number] [facility] Sodium [Moles/Vol] 141 mmol/L Normal 136-145 [facility] Comment on above: Performed By: #### T SH3, T4F, LDH, CMP ####[place] [id number] [facility] Urea nitrogen [Mass/Vol] 23 mg/dL Normal 7-25 [facility] Comment on above: Performed By: #### T SH3, T4F, LDH, CMP ####[place] [id number] [facility] Creatinine [Mass/volume] in Serum or PlasmaOrdered By: Sly Benson on 08-06-2023 Creatinine [Mass/Vol] 0.87 mg/dL 0.60-1.20 [facility] Free T4 (Free Thyroxine)on 0 08-06-2023 Free T4 [Mass/Vol] 1.13 ng/dL High 0.61-1.12 [facility] Comment on above: Performed By: #### T SH3, T4F, LDH, CMP ####[place] [id number] [facility] Globulin Calc (S) [Mass/Vol] Ordered By: Sly Benson on 08-06-2023 Globulin (S) [Mass/Vol] 3.0 g/dL [facility] Glucose [Mass/volume] in Ser um or PlasmaOrdered By: Sly Benson on 08-06-2023 Glucose [Mass/Vol] 95 mg/dL 70-100 [facility] Comment on above: ADA recommended refe rence rangeRandom Glucose Reference Range is dependent on time and content of last meal. Glucose of more than 200 mg/dL in a nonstressed, ambulatory subject supports the diagnosis of Diabetes Mellitus. [facility] Lactate Dehydrogenaseon 08-06-2023 LDH Lactate Dehydrogenase Normal 140-271 [facility] Comment on above: Result Comment: Spec imen hemolyzed, redraw requested Performed By: #### T SH3, T4F, LDH, CMP ####[facility] [id number] Lactate dehydrogenase [Enzym atic activity/volume] in Serum or Plasma by Lactate to pyOrdered By: Sly Benson on 08-06-2023 LDH Lactate to pyruvate reaction [Catalytic activity/Vol] 173 U/L 140-271 [facility] No Panel InformationOrdered By: Sly Benson on 08-06-2023 Estimated GFR (CKD-EPI) > 60.0 mL/Min [facility] Creatinine Clearance (Chem 57.70 [facility] Potassium [Moles/volume] in Serum or PlasmaOrdered By: Sly Benson on 08-06-2023 Potassium [Moles/Vol] 3.6 mmol/L 3.5-5.1 [facility] Protein [Mass/volume] in Ser um or PlasmaOrdered By: Sly Benson on 08-06-2023 Protein [Mass/Vol] 7.0 g/dL 6.4-8.9 [facility] Redraw LDHon 08-06-2023 Redraw LDH 173 U/L Normal 140-271 [facility] Comment on above: Order Comment: SPECI MEN HEMOLYZED. NOTIFIED CHON. Result Comment: PERF ORMED BY: [facility] [address] [place] [address] PATHOLOGIST CRISIS WORKER WAYLON SAUNDERS M.D. Performed By: #### R EDRAW LDH, REDRAW K #### [facility] [address] Redraw Potassiumon 4 Potassium [Moles/Vol] 3.6 mmol/L Normal 3.5-5.1 [facility] Comment on above: Order Comment: SPECI MEN HEMOLYZED. NOTIFIED CHON. Performed By: #### R EDRAW LDH, REDRAW K #### [facility] [address] Serum or plasma albumin/glob ulin mass ratioOrdered By: Sly Benson on 08-06-2023 Albumin/Globulin [Mass ratio] 1.3 {ratio} [facility] Serum or plasma anion gap de terminationOrdered By: Sly Bensno on 08-06-2023 Anion gap [Moles/Vol] TNP [facility] Comment on above: Test not performed Sodium [Moles/volume] in Ser um or PlasmaOrdered By: Sly Benson on 08-06-2023 Sodium [Moles/Vol] 141 mmol/L 136-145 [facility] Thyroid Stimulating Hormoneo n 08-06-2023 TSH Qn 2.81 m[IU]/L Normal 0.45-5.33 [facility] Comment on above: Result Comment: PERF ORMED BY: [facility] [address] [place] [address] PATHOLOGIST CRISIS WORKER WAYLON SAUNDERS M.D. Performed By: #### T SH3, T4F, LDH, CMP ####[facility] [id number] [address] Thyrotropin [Units/volume] i n Serum or PlasmaOrdered By: Sly Benson on 08-06-2023 TSH Qn 2.81 m[IU]/L 0.45-5.33 [facility] Thyroxine (T4) free [Mass/vo lume] in Serum or PlasmaOrdered By: Sly Benson on 08-06-2023 Free T4 [Mass/Vol] 1.13 ng/dL 0.61-1.12 [facility] Urea nitrogen [Mass/volume] in Serum or PlasmaOrdered By: Sly Benson on 08-06-2023 Urea nitrogen [Mass/Vol] 23 mg/dL 02-03 [facility] Adrenocorticotropic Hormone PLon 03-05-[address] 25.6 pg/mL Normal 7.2-63.3 [facility] Comment on above: Result Comment: ACTH reference interval for samples collected between 7 and 10 AM. Performed at: - [facility] [id number] [employer] Kil[employer] Repairer: Coleman Lacy PhD, Phone: [phone] PERFORMED BY: [facility] [address] [place] [address] PATHOLOGIST CRISIS WORKER WAYLON SAUNDERS M.D. Performed By: #### C BC ####[facility] [id number] [address]#### ACTH ####[facility] , Alanine aminotransferase [En zymatic activity/volume] in Serum or PlasmaOrdered By: Sly Benson on 03-05-2023 ALT [Catalytic activity/Vol] 22 U/L 7-52 [facility] Albumin [Mass/volume] in Ser um or Plasma by Bromocresol green (BCG) dye binding methoOrdered By: Sly Benson on 03-05-2023 Albumin BCG dye [Mass/Vol] 4.1 g/dL 3.5-5.7 [facility] Alkaline phosphatase [Enzyma tic activity/volume] in Serum or PlasmaOrdered By: Sly Benson on 03-05-2023 ALP [Catalytic activity/Vol] 106 U/L 34-104 [facility] Aspartate aminotransferase [ Enzymatic activity/volume] in Serum or PlasmaOrdered By: Sly Benson on 03-05-2023 AST [Catalytic activity/Vol] 23 U/L 13-39 [facility] Basophils Auto (Bld) [#/Vol] Ordered By: Sly Benson on 03-05-2023 Basophils (Bld) [#/Vol] 0.0 10*3/uL 0.0-0.2 [facility] Basophils/100 WBC Auto (Bld) Ordered By: Sly Benson on 03-05-2023 Basophils/100 WBC (Bld) 0.8 % . [facility] Bilirubin.total [Mass/volume ] in Serum or PlasmaOrdered By: Sly Benson on 03-05-2023 Bilirubin [Mass/Vol] 0.6 mg/dL 0.3-1.0 [facility] CT abdomen pelvis w conon CT abdomen pelvis w con [facility] [employer] [address] [place] [address] CT Scan Report Signed Patient: Theresa Luu MR#: [id number] : 1945 Acct:[id number] Age/Sex: 77 / F ADM Date: 03/05/23 Loc: Room: Type: [facility] RCR Attending Dr: Sly Benson II DO Copies to: Sly Benson II, DO Ordering Provider: Sly Benson II, DO Date of Service: 03/05/23 CT/CT abdomen pelvis w con: surveilance ([id number]) CT/CT chest w con: surveilance CT CHEST, [...] Monroe Jr., D.O.03/05/2023 3:12 PM Dictation Location: [place] [address] Transcribed By: [facility] 03/05/23 1512 Dictated By: Sylvain Monroe Jr, DO 03/05/23 1504 Signed By: 03/05/23 1512 Normal [facility] Calcium [Mass/volume] in Ser um or PlasmaOrdered By: Sly Benson on 03-05-2023 Calcium [Mass/Vol] 9.4 mg/dL 8.6-10.3 [facility] Carbon dioxide, total [Moles /volume] in Serum or PlasmaOrdered By: Sly Benson on 03-05-2023 CO2 [Moles/Vol] 28.0 mmol/L 21.0-31.0 [facility] Chloride [Moles/volume] in S mellissa or PlasmaOrdered By: Sly Benson on 03-05-2023 Chloride [Moles/Vol] 104 mmol/L 98-107 [facility] Complete Blood Count Auto Di ffon 03-05-2023 Basophils (Bld) [#/Vol] 0.0 10*3/uL Normal 0.0-0.2 [facility] Comment on above: Result Comment: PERF ORMED BY: [facility] [address] [place] [address] PATHOLOGIST CRISIS WORKER WAYLON SAUNDERS M.D. Performed By: #### C BC ####[place] [id number] [place]#### ACTH ####[facility] , Basophils/100 WBC (Bld) 0.8 % Normal . [facility] Comment on above: Performed By: #### C BC ####[place] [id number] [place]#### ACTH ####[facility] , Eosinophils (Bld) [#/Vol] 0.1 10*3/uL Normal 0.0-0.45 [facility] Comment on above: Performed By: #### C BC ####[place] [id number] [place]#### ACTH ####[facility] , Eosinophils/100 WBC (Bld) 1.7 % Normal . [facility] Comment on above: Performed By: #### C BC ####[place] [id number] [place]#### ACTH ####[facility] , Erythrocyte distribution width (RBC) [Ratio] 14.3 % Normal 11.9-15.3 [facility] Comment on above: Performed By: #### C BC ####[place] [id number] [place]#### ACTH ####[facility] , Hematocrit (Bld) [Volume fraction] 39.8 % Normal 34.0-46.4 [facility] Comment on above: Performed By: #### C BC ####[place] [id number] [place]#### ACTH ####[facility] , Hemoglobin (Bld) [Mass/Vol] 13.6 g/dL Normal 11.8-15.4 [facility] Comment on above: Performed By: #### C BC ####[place] [id number] [place]#### ACTH ####[facility] , Lymphocytes (Bld) [#/Vol] 1.4 10*3/uL Normal 1.00-4.8 [facility] Comment on above: Performed By: #### C BC ####[address]#### ACTH ####[facility] , Lymphocytes/100 WBC (Bld) 23.1 % Normal . [facility] Comment on above: Performed By: #### C BC ####[place] [address] [place]#### ACTH ####[facility] , MCH (RBC) [Entitic mass] 30.2 pg Normal 24.7-34.3 [facility] Comment on above: Performed By: #### C BC ####[address]#### ACTH ####[facility] , MCV (RBC) [Entitic vol] 88.1 fL Normal 80-100 [facility] Comment on above: Performed By: #### C BC ####[address]#### ACTH ####[facility] , Mean Corpuscular HGB Conc 34.3 g/dL Normal 32.0-35.0 [facility] Comment on above: Performed By: #### C BC ####[place] [address] [place]#### ACTH ####[facility] , Monocytes (Bld) [#/Vol] 0.5 10*3/uL Normal 0.0-0.8 [facility] Comment on above: Performed By: #### C BC ####[place] [address] [place]#### ACTH ####[facility] , Monocytes/100 WBC (Bld) 8.4 % Normal . [facility] Comment on above: Performed By: #### C BC ####[place] [address] [place]#### ACTH ####[facility] , Neutrophils (Bld) [#/Vol] 4.1 10*3/uL Normal 1.8-7.7 [facility] Comment on above: Performed By: #### C BC ####[place] [address] [place]#### ACTH ####[facility] , Neutrophils/100 WBC (Bld) 66.0 % Normal . [facility] Comment on above: Performed By: #### C BC ####[place] [address] [place]#### ACTH ####[facility] , NRBC% 0.0 /100{WBC} Normal 0-0.5 [facility] Comment on above: Performed By: #### C BC ####[place] [address] [place]#### ACTH ####[facility] , Platelet mean volume (Bld) [Entitic vol] 7.2 fL Normal 6.3-10.7 [facility] Comment on above: Performed By: #### C BC ####[place] [address] [place]#### ACTH ####[facility] , Platelets (Bld) [#/Vol] 190 10*3/uL Normal 150-450 [facility] Comment on above: Performed By: #### C BC ####[place] [address] [place]#### ACTH ####[facility] , RBC (Bld) [#/Vol] 4.51 10*6/uL Normal 3.60-5.00 [facility] Comment on above: Performed By: #### C BC ####[facility] [id number] [address]#### ACTH ####[facility] , WBC (Bld) [#/Vol] 6.3 10*3/uL Normal 3.8-11.6 [facility] Comment on above: Performed By: #### C BC ####[facility] [id number] [address]#### ACTH ####[facility] , Comprehensive Metabolic Pane eileen 03-05-2023 Albumin [Mass/Vol] 4.1 g/dL Normal 3.5-5.7 [facility] Comment on above: Order Comment: STAT BUN/CREAT FOR CT PER CHAGO IN CC DRAW 02/23/23 Performed By: #### C MP, TSH3, LDH, T4F #### [facility] [address] [place] [address] Albumin/Globulin [Mass ratio] 1.5 {ratio} Normal [facility] Comment on above: Order Comment: STAT BUN/CREAT FOR CT PER CHAGO IN CC DRAW 02/23/23 Performed By: #### C MP, TSH3, LDH, T4F #### [facility] [address] [place] [address] ALP [Catalytic activity/Vol] 106 U/L High 34-104 [facility] Comment on above: Order Comment: STAT BUN/CREAT FOR CT PER CHAGO IN CC DRAW 02/23/23 Performed By: #### C MP, TSH3, LDH, T4F #### [facility] [address] ALT [Catalytic activity/Vol] 22 U/L Normal 7-52 [facility] Comment on above: Order Comment: STAT BUN/CREAT FOR CT PER CHAGO IN CC DRAW 02/23/23 Performed By: #### C MP, TSH3, LDH, T4F #### [facility] [address] Anion gap [Moles/Vol] 12.8 mmol/L Normal 6.0-15.0 [facility] Comment on above: Order Comment: STAT BUN/CREAT FOR CT PER CHAGO IN CC DRAW 02/23/23 Performed By: #### C MP, TSH3, LDH, T4F #### [facility] [address] AST [Catalytic activity/Vol] 23 U/L Normal 13-39 [facility] Comment on above: Order Comment: STAT BUN/CREAT FOR CT PER CHAGO IN CC DRAW 02/23/23 Performed By: #### C MP, TSH3, LDH, T4F #### [facility] [address] Bilirubin [Mass/Vol] 0.6 mg/dL Normal 0.3-1.0 [facility] Comment on above: Order Comment: STAT BUN/CREAT FOR CT PER CHAGO IN CC DRAW 02/23/23 Performed By: #### C MP, TSH3, LDH, T4F #### [facility] [address] [place] [address] Calcium [Mass/Vol] 9.4 mg/dL Normal 8.6-10.3 [facility] Comment on above: Order Comment: STAT BUN/CREAT FOR CT PER CHAGO IN CC DRAW 02/23/23 Performed By: #### C MP, TSH3, LDH, T4F #### [facility] [address] [place] [address] Chloride [Moles/Vol] 104 mmol/L Normal 98-107 [facility] Comment on above: Order Comment: STAT BUN/CREAT FOR CT PER CHAGO IN CC DRAW 02/23/23 Performed By: #### C MP, TSH3, LDH, T4F #### [facility] [address] CO2 [Moles/Vol] 28.0 mmol/L Normal 21.0-31.0 [facility] Comment on above: Order Comment: STAT BUN/CREAT FOR CT PER CHAGO IN CC DRAW 02/23/23 Performed By: #### C MP, TSH3, LDH, T4F #### [facility] [address] Creatinine [Mass/Vol] 0.91 mg/dL Normal 0.60-1.20 [facility] Comment on above: Order Comment: STAT BUN/CREAT FOR CT PER CHAGO IN CC DRAW 02/23/23 Performed By: #### C MP, TSH3, LDH, T4F #### [facility] [address] Creatinine Clr Calc Pharmacy 54.20 [facility] Comment on above: Order Comment: STAT BUN/CREAT FOR CT PER CHAGO IN CC DRAW 02/23/23 Performed By: #### C MP, TSH3, LDH, T4F #### [facility] [address] [place] [address] GFR/1.73 sq M.predicted MDRD (S/P/Bld) [Vol rate/Area] mL/min/{1.73_m2} [facility] Comment on above: Order Comment: STAT BUN/CREAT FOR CT PER CHAGO IN CC DRAW 02/23/23 Performed By: #### C MP, TSH3, LDH, T4F #### [facility] [address] [place] [address] Globulin (S) [Mass/Vol] 2.8 g/dL [facility] Comment on above: Order Comment: STAT BUN/CREAT FOR CT PER CHAGO IN CC DRAW 02/23/23 Performed By: #### C MP, TSH3, LDH, T4F #### [facility] [address] Glucose [Mass/Vol] 102 mg/dL High 70-100 [facility] Comment on above: Order Comment: STAT BUN/CREAT FOR CT PER CHAGO IN CC DRAW 02/23/23 Result Comment: [place] om Glucose Reference Range is dependent on time and content of last meal. Glucose of more than 200 mg/dL in a nonstressed, ambulatory subject supports the diagnosis of Diabetes Mellitus. ADA recommended reference range Performed By: #### C MP, TSH3, LDH, T4F #### [facility] [address] Potassium [Moles/Vol] 3.8 mmol/L Normal 3.5-5.1 [facility] Comment on above: Order Comment: STAT BUN/CREAT FOR CT PER CHAGO IN CC DRAW 02/23/23 Performed By: #### C MP, TSH3, LDH, T4F #### [facility] [address] [place] [address] Protein [Mass/Vol] 6.9 g/dL Normal 6.4-8.9 [facility] Comment on above: Order Comment: STAT BUN/CREAT FOR CT PER CHAGO IN CC DRAW 02/23/23 Performed By: #### C MP, TSH3, LDH, T4F #### [facility] [address] [place] [address] Sodium [Moles/Vol] 141 mmol/L Normal 136-145 [facility] Comment on above: Order Comment: STAT BUN/CREAT FOR CT PER CHAGO IN CC DRAW 02/23/23 Performed By: #### C MP, TSH3, LDH, T4F #### [facility] [address] [place] [address] Urea nitrogen [Mass/Vol] 17 mg/dL Normal 7-25 [facility] Comment on above: Order Comment: STAT BUN/CREAT FOR CT PER CHAGO IN CC DRAW 02/23/23 Performed By: #### C MP, TSH3, LDH, T4F #### [facility] [address] [place] [address] Creatinine [Mass/volume] in Serum or PlasmaOrdered By: Sly Benson on 03-05-2023 Creatinine [Mass/Vol] 0.91 mg/dL 0.60-1.20 [facility] Eosinophils Auto (Bld) [#/Vo l]Ordered By: Sly Benson on 03-05-2023 Eosinophils (Bld) [#/Vol] 0.1 10*3/uL 0.0-0.45 [facility] Eosinophils/100 WBC Auto (Bl d)Ordered By: Sly Benson on 03-05-2023 Eosinophils/100 WBC (Bld) 1.7 % . [facility] Erythrocyte distribution wid th Auto (RBC) [Ratio]Ordered By: Sly Benson on 03-05-2023 Erythrocyte distribution width (RBC) [Ratio] 14.3 % 11.9-15.3 [facility] Free T4 (Free Thyroxine)on 0 03-05-2023 Free T4 [Mass/Vol] 0.94 ng/dL Normal 0.61-1.12 [facility] Comment on above: Order Comment: STAT BUN/CREAT FOR CT PER CHAGO IN CC DRAW 02/23/23 Performed By: #### C MP, TSH3, LDH, T4F #### [facility] [address] Globulin Calc (S) [Mass/Vol] Ordered By: Sly Benson on 03-05-2023 Globulin (S) [Mass/Vol] 2.8 g/dL [facility] Glucose [Mass/volume] in Ser um or PlasmaOrdered By: Sly Benson on 03-05-2023 Glucose [Mass/Vol] 102 mg/dL 70-100 [facility] Comment on above: ADA recommended refe rence rangeRandom Glucose Reference Range is dependent on time and content of last meal. Glucose of more than 200 mg/dL in a nonstressed, ambulatory subject supports the diagnosis of Diabetes Mellitus. Hematocrit Auto (Bld) [Volum e fraction]Ordered By: Sly Benson on 03-05-2023 Hematocrit (Bld) [Volume fraction] 39.8 % 34.0-46.4 [facility] Hemoglobin [Mass/volume] in BloodOrdered By: Sly Benson on 03-05-2023 Hemoglobin (Bld) [Mass/Vol] 13.6 g/dL 11.8-15.4 [facility] LDH Lactate Dehydrogenaseon 03-05-2023 LDH Lactate Dehydrogenase 197 U/L Normal 140-271 [facility] Comment on above: Order Comment: STAT BUN/CREAT FOR CT PER CHAGO IN CC DRAW 02/23/23 Performed By: #### C MP, TSH3, LDH, T4F #### [facility] [address] [place] [id number] [facility] Lactate dehydrogenase [Enzym atic activity/volume] in Serum or Plasma by Lactate to pyOrdered By: Sly Benson on 03-05-2023 LDH Lactate to pyruvate reaction [Catalytic activity/Vol] 197 U/L 140-271 [facility] Leukocytes [#/volume] correc margot for nucleated erythrocytes in Blood by Automated counOrdered By: Sly Benson on 03-05-2023 WBC corrected for nucl RBC Auto (Bld) [#/Vol] 6.3 10*3/uL 3.8-11.6 [facility] Lymphocytes Auto (Bld) [#/Vo l]Ordered By: Sly Benson on 03-05-2023 Lymphocytes (Bld) [#/Vol] 1.4 10*3/uL 1.00-4.8 [facility] Lymphocytes/100 WBC Auto (Bl d)Ordered By: Sly Benson on 03-05-2023 Lymphocytes/100 WBC (Bld) 23.1 % . [facility] MCH Auto (RBC) [Entitic mass ]Ordered By: Sly Benson on 03-05-2023 MCH (RBC) [Entitic mass] 30.2 pg 24.7-34.3 [facility] MCHC Auto (RBC) [Mass/Vol]Or dered By: Sly Benson on 03-05-2023 MCHC (RBC) [Mass/Vol] 34.3 g/dL 32.0-35.0 [facility] MCV Auto (RBC) [Entitic vol] Ordered By: Sly Benson on 03-05-2023 MCV (RBC) [Entitic vol] 88.1 fL 80-100 [facility] Monocytes Auto (Bld) [#/Vol] Ordered By: Sly Benson on 03-05-2023 Monocytes (Bld) [#/Vol] 0.5 10*3/uL 0.0-0.8 [facility] Monocytes/100 WBC Auto (Bld) Ordered By: Sly Benson on 03-05-2023 Monocytes/100 WBC (Bld) 8.4 % . [facility] Neutrophils Auto (Bld) [#/Vo l]Ordered By: Sly Benson on 03-05-2023 Neutrophils (Bld) [#/Vol] 4.1 10*3/uL 1.8-7.7 [facility] Neutrophils/100 WBC Auto (Bl d)Ordered By: Sly Benson on 03-05-2023 Neutrophils/100 WBC (Bld) 66.0 % . [facility] No Panel InformationOrdered By: Sly Benson on 03-05-2023 Adrenocorticotropic Hormone 25.6 pg/mL 7.2-63.3 [facility] Comment on above: ACTH reference inter jamel for samples collected between 7 and10 AM.Performed at: [facility] [place] [id number] Director: Coleman Lacy PhD, Phone: [phone] Estimated GFR (CKD-EPI) > 60.0 mL/Min [facility] Creatinine Clearance (Chem 54.20 [facility] Nucleated erythrocytes [Pres ence] in Blood by Automated countOrdered By: Sly Benson on 03-05-2023 Nucleated RBC Auto Ql (Bld) 0.0 /100{WBC} 0-0.5 [facility] Platelet mean volume Auto (B ld) [Entitic vol]Ordered By: Sly Benson on 03-05-2023 Platelet mean volume (Bld) [Entitic vol] 7.2 fL 6.3-10.7 [facility] Platelets Auto (Bld) [#/Vol] Ordered By: Sly Benson on 03-05-2023 Platelets (Bld) [#/Vol] 190 10*3/uL 150-450 [facility] Potassium [Moles/volume] in Serum or PlasmaOrdered By: Sly Benson on 03-05-2023 Potassium [Moles/Vol] 3.8 mmol/L 3.5-5.1 [facility] Protein [Mass/volume] in Ser um or PlasmaOrdered By: Sly Benson on 03-05-2023 Protein [Mass/Vol] 6.9 g/dL 6.4-8.9 [facility] RBC Auto (Bld) [#/Vol]Ordere d By: Sly Benson on 03-05-2023 RBC (Bld) [#/Vol] 4.51 10*6/uL 3.60-5.00 [facility] Serum or plasma albumin/glob ulin mass ratioOrdered By: Sly Benson on 03-05-2023 Albumin/Globulin [Mass ratio] 1.5 {ratio} [facility] Serum or plasma anion gap de terminationOrdered By: Sly Benson on 03-05-2023 Anion gap [Moles/Vol] 12.8 mmol/L 6.0-15.0 [facility] Sodium [Moles/volume] in Ser um or PlasmaOrdered By: Sly Benson on 03-05-2023 Sodium [Moles/Vol] 141 mmol/L 136-145 [facility] Thyroid Stimulating Hormoneo n 03-05-2023 TSH Qn 2.49 m[IU]/L Normal 0.45-5.33 [facility] Comment on above: Order Comment: STAT BUN/CREAT FOR CT PER CHAGO IN CC DRAW 02/23/23 Result Comment: PERF ORMED BY: [place] [address] PATHOLOGIST CRISIS WORKER WAYLON SAUNDERS M.D. Performed By: #### C MP, TSH3, LDH, T4F #### [address] Thyrotropin [Units/volume] i n Serum or PlasmaOrdered By: Sly Benson on 03-05-2023 TSH Qn 2.49 m[IU]/L 0.45-5.33 [facility] Thyroxine (T4) free [Mass/vo lume] in Serum or PlasmaOrdered By: Sly Benson on 03-05-2023 Free T4 [Mass/Vol] 0.94 ng/dL 0.61-1.12 [facility] Urea nitrogen [Mass/volume] in Serum or PlasmaOrdered By: Sly Benson on 03-05-2023 Urea nitrogen [Mass/Vol] 17 mg/dL 7-25 [facility] WBC Auto (Bld) [#/Vol]Ordere d By: Sly Benson on 03-05-2023 WBC (Bld) [#/Vol] 6.3 10*3/uL 3.8-11.6 [facility] Adrenocorticotropic Hormone PLon 12-30-[address] 28.9 pg/mL Normal 7.2-63.3 [facility] Comment on above: Result Comment: ACTH reference interval for samples collected between 7 and 10 AM. Performed at: - [facility] [address] [id number] [employer] Repairer: Coleman Lacy PhD, Phone: [phone] PERFORMED BY: [facility] [address] [place] [address] PATHOLOGIST CRISIS WORKER WAYLON SAUNDERS M.D. Performed By: #### T 4F, CBC, TSH3, LDH, CMP ####[facility] [id number] [address]#### ACTH ####[facility] , Alanine aminotransferase [En zymatic activity/volume] in Serum or PlasmaOrdered By: Sly Benson on 12-30-2022 ALT [Catalytic activity/Vol] 24 U/L 7-52 [facility] Albumin [Mass/volume] in Ser um or Plasma by Bromocresol green (BCG) dye binding methoOrdered By: Sly Benson on 12-30-2022 Albumin BCG dye [Mass/Vol] 4.0 g/dL 3.5-5.7 [facility] Alkaline phosphatase [Enzyma tic activity/volume] in Serum or PlasmaOrdered By: Sly Benson on 12-30-2022 ALP [Catalytic activity/Vol] 108 U/L 34-104 [facility] Aspartate aminotransferase [ Enzymatic activity/volume] in Serum or PlasmaOrdered By: Sly Benson on 12-30-2022 AST [Catalytic activity/Vol] 22 U/L 13-39 [facility] Basophils Auto (Bld) [#/Vol] Ordered By: Sly Benson on 12-30-2022 Basophils (Bld) [#/Vol] 0.0 10*3/uL 0.0-0.2 [facility] Basophils/100 WBC Auto (Bld) Ordered By: Sly Benson on 12-30-2022 Basophils/100 WBC (Bld) 0.5 % . [facility] Bilirubin.total [Mass/volume ] in Serum or PlasmaOrdered By: Sly Benson on 12-30-2022 Bilirubin [Mass/Vol] 0.5 mg/dL 0.3-1.0 [facility] Calcium [Mass/volume] in Ser um or PlasmaOrdered By: Sly Benson on 12-30-2022 Calcium [Mass/Vol] 9.1 mg/dL 8.6-10.3 [facility] Carbon dioxide, total [Moles /volume] in Serum or PlasmaOrdered By: Sly Benson on 12-30-2022 CO2 [Moles/Vol] 30.7 mmol/L 21.0-31.0 [facility] Chloride [Moles/volume] in S mellissa or PlasmaOrdered By: Sly Benson on 12-30-2022 Chloride [Moles/Vol] 104 mmol/L 98-107 [facility] Complete Blood Count Auto Di ffon 12-30-2022 Basophils (Bld) [#/Vol] 0.0 10*3/uL Normal 0.0-0.2 [facility] Comment on above: Result Comment: PERF ORMED BY: [facility] [address] [facility] [address] [address] PATHOLOGIST CRISIS WORKER WAYLON SAUNDESR M.D. Performed By: #### T 4F, CBC, TSH3, LDH, CMP ####[facility]#### ACTH ####[facility] , Basophils/100 WBC (Bld) 0.5 % Normal . [facility] Comment on above: Performed By: #### T 4F, CBC, TSH3, LDH, CMP ####[facility]#### ACTH ####[facility] , Eosinophils (Bld) [#/Vol] 0.1 10*3/uL Normal 0.0-0.45 [facility] Comment on above: Performed By: #### T 4F, CBC, TSH3, LDH, CMP ####[address]#### ACTH ####[facility] , Eosinophils/100 WBC (Bld) 1.5 % Normal . [facility] Comment on above: Performed By: #### T 4F, CBC, TSH3, LDH, CMP ####[address]#### ACTH ####[facility] , Erythrocyte distribution width (RBC) [Ratio] 13.6 % Normal 11.9-15.3 [facility] Comment on above: Performed By: #### T 4F, CBC, TSH3, LDH, CMP ####[address]#### ACTH ####[facility] , Hematocrit (Bld) [Volume fraction] 39.0 % Normal 34.0-46.4 [facility] Comment on above: Performed By: #### T 4F, CBC, TSH3, LDH, CMP ####[address]#### ACTH ####[facility] , Hemoglobin (Bld) [Mass/Vol] 13.4 g/dL Normal 11.8-15.4 [facility] Comment on above: Performed By: #### T 4F, CBC, TSH3, LDH, CMP ####[place] [address] [place]#### ACTH ####[facility] , Lymphocytes (Bld) [#/Vol] 1.6 10*3/uL Normal 1.00-4.8 [facility] Comment on above: Performed By: #### T 4F, CBC, TSH3, LDH, CMP ####[address]#### ACTH ####[facility] , Lymphocytes/100 WBC (Bld) 24.0 % Normal . [facility] Comment on above: Performed By: #### T 4F, CBC, TSH3, LDH, CMP ####[address]#### ACTH ####[facility] , MCH (RBC) [Entitic mass] 30.0 pg Normal 24.7-34.3 [facility] Comment on above: Performed By: #### T 4F, CBC, TSH3, LDH, CMP ####[address]#### ACTH ####[facility] , MCV (RBC) [Entitic vol] 87.4 fL Normal 80-100 [facility] Comment on above: Performed By: #### T 4F, CBC, TSH3, LDH, CMP ####[address]#### ACTH ####[facility] , Mean Corpuscular HGB Conc 34.3 g/dL Normal 32.0-35.0 [facility] Comment on above: Performed By: #### T 4F, CBC, TSH3, LDH, CMP ####[address]#### ACTH ####[facility] , Monocytes (Bld) [#/Vol] 0.6 10*3/uL Normal 0.0-0.8 [facility] Comment on above: Performed By: #### T 4F, CBC, TSH3, LDH, CMP ####[address]#### ACTH ####[facility] , Monocytes/100 WBC (Bld) 9.0 % Normal . [facility] Comment on above: Performed By: #### T 4F, CBC, TSH3, LDH, CMP ####[place] [address] [place]#### ACTH ####[facility] , Neutrophils (Bld) [#/Vol] 4.4 10*3/uL Normal 1.8-7.7 [facility] Comment on above: Performed By: #### T 4F, CBC, TSH3, LDH, CMP ####[place] [address] [place]#### ACTH ####[facility] , Neutrophils/100 WBC (Bld) 65.0 % Normal . [facility] Comment on above: Performed By: #### T 4F, CBC, TSH3, LDH, CMP ####[address]#### ACTH ####[facility] , NRBC% 0.0 /100{WBC} Normal 0-0.5 [facility] Comment on above: Performed By: #### T 4F, CBC, TSH3, LDH, CMP ####[place] [address] [place]#### ACTH ####[facility] , Platelet mean volume (Bld) [Entitic vol] 7.4 fL Normal 6.3-10.7 [facility] Comment on above: Performed By: #### T 4F, CBC, TSH3, LDH, CMP ####[place] [address] [place]#### ACTH ####[facility] , Platelets (Bld) [#/Vol] 171 10*3/uL Normal 150-450 [facility] Comment on above: Performed By: #### T 4F, CBC, TSH3, LDH, CMP ####[place] [address] [place]#### ACTH ####[facility] , RBC (Bld) [#/Vol] 4.46 10*6/uL Normal 3.60-5.00 [facility] Comment on above: Performed By: #### T 4F, CBC, TSH3, LDH, CMP ####[address]#### ACTH ####[facility] , WBC (Bld) [#/Vol] 6.8 10*3/uL Normal 3.8-11.6 [facility] Comment on above: Performed By: #### T 4F, CBC, TSH3, LDH, CMP ####[place] [address] [place]#### ACTH ####[facility] , Comprehensive Metabolic Pane eileen 12-30-2022 Albumin [Mass/Vol] 4.0 g/dL Normal 3.5-5.7 [facility] Comment on above: Performed By: #### T 4F, CBC, TSH3, LDH, CMP ####[place] [address] [place]#### ACTH ####[facility] , Albumin/Globulin [Mass ratio] 1.6 {ratio} Normal [facility] Comment on above: Performed By: #### T 4F, CBC, TSH3, LDH, CMP ####[place] [address] [place]#### ACTH ####[facility] , ALP [Catalytic activity/Vol] 108 U/L High 34-104 [facility] Comment on above: Performed By: #### T 4F, CBC, TSH3, LDH, CMP ####[place] [address] [place]#### ACTH ####[facility] , ALT [Catalytic activity/Vol] 24 U/L Normal 7-52 [facility] Comment on above: Performed By: #### T 4F, CBC, TSH3, LDH, CMP ####[place] [address] [place]#### ACTH ####[facility] , Anion gap [Moles/Vol] Not performed Normal 6.0-15.0 [facility] Comment on above: Result Comment: --- 12/30/22 1038 --- Gap previously reported as: 10.2 mEq/L Performed By: #### T 4F, CBC, TSH3, LDH, CMP ####[address]#### ACTH ####[facility] , AST [Catalytic activity/Vol] 22 U/L Normal 13-39 [facility] Comment on above: Performed By: #### T 4F, CBC, TSH3, LDH, CMP ####[address]#### ACTH ####[facility] , Bilirubin [Mass/Vol] 0.5 mg/dL Normal 0.3-1.0 [facility] Comment on above: Performed By: #### T 4F, CBC, TSH3, LDH, CMP ####[place] [address] [place]#### ACTH ####[facility] , Calcium [Mass/Vol] 9.1 mg/dL Normal 8.6-10.3 [facility] Comment on above: Performed By: #### T 4F, CBC, TSH3, LDH, CMP ####[place] [address] [place]#### ACTH ####[facility] , Chloride [Moles/Vol] 104 mmol/L Normal 98-107 [facility] Comment on above: Performed By: #### T 4F, CBC, TSH3, LDH, CMP ####[place] [address] [place]#### ACTH ####[facility] , CO2 [Moles/Vol] 30.7 mmol/L Normal 21.0-31.0 [facility] Comment on above: Performed By: #### T 4F, CBC, TSH3, LDH, CMP ####[place] [address] [place]#### ACTH ####[facility] , Creatinine [Mass/Vol] 0.92 mg/dL Normal 0.60-1.20 [facility] Comment on above: Performed By: #### T 4F, CBC, TSH3, LDH, CMP ####[place] [address] [place]#### ACTH ####[facility] , Creatinine Clr Calc Pharmacy 54.88 [facility] Comment on above: Performed By: #### T 4F, CBC, TSH3, LDH, CMP ####[place] [address] [place]#### ACTH ####[facility] , GFR/1.73 sq M.predicted MDRD (S/P/Bld) [Vol rate/Area] mL/min/{1.73_m2} [facility] Comment on above: Performed By: #### T 4F, CBC, TSH3, LDH, CMP ####[address]#### ACTH ####[facility] , Globulin (S) [Mass/Vol] 2.5 g/dL [facility] Comment on above: Performed By: #### T 4F, CBC, TSH3, LDH, CMP ####[place] [address] [place]#### ACTH ####[facility] , Glucose [Mass/Vol] 102 mg/dL High 70-100 [facility] Comment on above: Result Comment: [place] Glucose Reference Range is dependent on time and content of last meal. Glucose of more than 200 mg/dL in a nonstressed, ambulatory subject supports the diagnosis of Diabetes Mellitus. ADA recommended reference range Performed By: #### T 4F, CBC, TSH3, LDH, CMP ####[place] [address] [place]#### ACTH ####[facility] , Potassium Normal 3.5-5.1 [facility] Comment on above: Result Comment: Spec imen hemolyzed, redraw requested --- 12/30/22 1036 --- K previously reported as: 3.9 mmol/L Hemolysis is present at a level that could interfere with the result. Performed By: #### T 4F, CBC, TSH3, LDH, CMP ####[place] [address] [place]#### ACTH ####[facility] , Protein [Mass/Vol] 6.5 g/dL Normal 6.4-8.9 [facility] Comment on above: Performed By: #### T 4F, CBC, TSH3, LDH, CMP ####[place] [address] [place]#### ACTH ####[facility] , Sodium [Moles/Vol] 141 mmol/L Normal 136-145 [facility] Comment on above: Performed By: #### T 4F, CBC, TSH3, LDH, CMP ####[place] [address] [place]#### ACTH ####[facility] , Urea nitrogen [Mass/Vol] 17 mg/dL Normal 7-25 [facility] Comment on above: Performed By: #### T 4F, CBC, TSH3, LDH, CMP ####[place] [address] [place]#### ACTH ####[facility] , Creatinine [Mass/volume] in Serum or PlasmaOrdered By: Sly Benson on 12-30-2022 Creatinine [Mass/Vol] 0.92 mg/dL 0.60-1.20 [facility] Eosinophils Auto (Bld) [#/Vo l]Ordered By: Sly Benson on 12-30-2022 Eosinophils (Bld) [#/Vol] 0.1 10*3/uL 0.0-0.45 [facility] Eosinophils/100 WBC Auto (Bl d)Ordered By: Sly Benson on 12-30-2022 Eosinophils/100 WBC (Bld) 1.5 % . [facility] Erythrocyte distribution wid th Auto (RBC) [Ratio]Ordered By: Sly Benson on 12-30-2022 Erythrocyte distribution width (RBC) [Ratio] 13.6 % 11.9-15.3 [facility] Free T4 (Free Thyroxine)on 0 12-30-2022 Free T4 [Mass/Vol] 1.03 ng/dL Normal 0.61-1.12 [facility] Comment on above: Performed By: #### T 4F, CBC, TSH3, LDH, CMP ####[facility] [id number]#### ACTH ####[facility] , Globulin Calc (S) [Mass/Vol] Ordered By: Sly Benson on 12-30-2022 Globulin (S) [Mass/Vol] 2.5 g/dL [facility] Glucose [Mass/volume] in Ser um or PlasmaOrdered By: Sly Benson on 12-30-2022 Glucose [Mass/Vol] 102 mg/dL 70-100 [facility] Comment on above: ADA recommended refe rence rangeRandom Glucose Reference Range is dependent on time and content of last meal. Glucose of more than 200 mg/dL in a nonstressed, ambulatory subject supports the diagnosis of Diabetes Mellitus. Hematocrit Auto (Bld) [Volum e fraction]Ordered By: Sly Benson on 12-30-2022 Hematocrit (Bld) [Volume fraction] 39.0 % 34.0-46.4 [facility] Hemoglobin [Mass/volume] in BloodOrdered By: Sly Benson on 12-30-2022 Hemoglobin (Bld) [Mass/Vol] 13.4 g/dL 11.8-15.4 [facility] LDH Lactate Dehydrogenaseon 12-30-2022 LDH Lactate Dehydrogenase 211 U/L Normal 140-271 [facility] Comment on above: Result Comment: Hemo lysis is present at a level that could interfere with the result. Performed By: #### T 4F, CBC, TSH3, LDH, CMP ####[facility] [id number] [place] [id number] [facility]#### ACTH ####[facility] , Lactate dehydrogenase [Enzym atic activity/volume] in Serum or Plasma by Lactate to pyOrdered By: Sly Benson on 12-30-2022 LDH Lactate to pyruvate reaction [Catalytic activity/Vol] 211 U/L 140-271 [facility] Comment on above: Hemolysis is present at a level that could interfere with the result. Leukocytes [#/volume] correc margot for nucleated erythrocytes in Blood by Automated counOrdered By: Sly Benson on 12-30-2022 WBC corrected for nucl RBC Auto (Bld) [#/Vol] 6.8 10*3/uL 3.8-11.6 [facility] Lymphocytes Auto (Bld) [#/Vo l]Ordered By: Sly Benson on 12-30-2022 Lymphocytes (Bld) [#/Vol] 1.6 10*3/uL 1.00-4.8 [facility] Lymphocytes/100 WBC Auto (Bl d)Ordered By: Sly Benson on 12-30-2022 Lymphocytes/100 WBC (Bld) 24.0 % . [facility] MCH Auto (RBC) [Entitic mass ]Ordered By: Sly Benson on 12-30-2022 MCH (RBC) [Entitic mass] 30.0 pg 24.7-34.3 [facility] MCHC Auto (RBC) [Mass/Vol]Or dered By: Sly Benson on 12-30-2022 MCHC (RBC) [Mass/Vol] 34.3 g/dL 32.0-35.0 [facility] MCV Auto (RBC) [Entitic vol] Ordered By: Sly Benson on 12-30-2022 MCV (RBC) [Entitic vol] 87.4 fL 80-100 [facility] Monocytes Auto (Bld) [#/Vol] Ordered By: Sly Benson on 12-30-2022 Monocytes (Bld) [#/Vol] 0.6 10*3/uL 0.0-0.8 [facility] Monocytes/100 WBC Auto (Bld) Ordered By: Sly Benson on 12-30-2022 Monocytes/100 WBC (Bld) 9.0 % . [facility] Neutrophils Auto (Bld) [#/Vo l]Ordered By: Sly Benson on 12-30-2022 Neutrophils (Bld) [#/Vol] 4.4 10*3/uL 1.8-7.7 [facility] Neutrophils/100 WBC Auto (Bl d)Ordered By: Sly Benson on 12-30-2022 Neutrophils/100 WBC (Bld) 65.0 % . [facility] No Panel InformationOrdered By: Sly Benson on 12-30-2022 Adrenocorticotropic Hormone 28.9 pg/mL 7.2-63.3 [facility] Comment on above: ACTH reference inter jamel for samples collected between 7 and10 AM.Performed at: [facility] [place] [id number] Director: Coleman Lacy PhD, Phone: [phone] Estimated GFR (CKD-EPI) > 60.0 mL/Min [facility] Creatinine Clearance (Chem 54.88 [facility] Nucleated erythrocytes [Pres ence] in Blood by Automated countOrdered By: Sly Benson on 12-30-2022 Nucleated RBC Auto Ql (Bld) 0.0 /100{WBC} 0-0.5 [facility] Platelet mean volume Auto (B ld) [Entitic vol]Ordered By: Sly Benson on 12-30-2022 Platelet mean volume (Bld) [Entitic vol] 7.4 fL 6.3-10.7 [facility] Platelets Auto (Bld) [#/Vol] Ordered By: Sly Benson on 12-30-2022 Platelets (Bld) [#/Vol] 171 10*3/uL 150-450 [facility] Potassium [Moles/volume] in Serum or PlasmaOrdered By: Sly Benson on 12-30-2022 Potassium [Moles/Vol] See comment 3.5-5.1 [facility] Comment on above: Specimen hemolyzed, redraw requested --- 12/30/22 1036 ---K previously reported as: 3.9 mmol/LHemolysis is present at a level that could interfere with the result. Protein [Mass/volume] in Ser um or PlasmaOrdered By: Sly Benson on 12-30-2022 Protein [Mass/Vol] 6.5 g/dL 6.4-8.9 [facility] RBC Auto (Bld) [#/Vol]Ordere d By: Sly Benson on 12-30-2022 RBC (Bld) [#/Vol] 4.46 10*6/uL 3.60-5.00 [facility] Serum or plasma albumin/glob ulin mass ratioOrdered By: Sly Benson on 12-30-2022 Albumin/Globulin [Mass ratio] 1.6 {ratio} [facility] Serum or plasma anion gap de terminationOrdered By: Sly Benson on 12-30-2022 Anion gap [Moles/Vol] TNP [facility] Comment on above: Test not performed-- - 12/30/22 1038 ---Gap previously reported as: 10.2 mEq/L Sodium [Moles/volume] in Ser um or PlasmaOrdered By: Sly Benson on 12-30-2022 Sodium [Moles/Vol] 141 mmol/L 136-145 [facility] Thyroid Stimulating Hormoneo n 12-30-2022 TSH Qn 2.31 m[IU]/L Normal 0.45-5.33 [facility] Comment on above: Result Comment: PERF ORMED BY: [facility] [address] [place] [address] PATHOLOGIST CRISIS WORKER WAYLON SAUNDERS M.D. Performed By: #### T 4F, CBC, TSH3, LDH, CMP ####[facility]1111 [facility]#### ACTH ####[facility] , Thyrotropin [Units/volume] i n Serum or PlasmaOrdered By: Sly Benson on 12-30-2022 TSH Qn 2.31 m[IU]/L 0.45-5.33 [facility] Thyroxine (T4) free [Mass/vo lume] in Serum or PlasmaOrdered By: Sly Benson on 12-30-2022 Free T4 [Mass/Vol] 1.03 ng/dL 0.61-1.12 [facility] Urea nitrogen [Mass/volume] in Serum or PlasmaOrdered By: Sly Benson on 12-30-2022 Urea nitrogen [Mass/Vol] 17 mg/dL 02-03 [facility] WBC Auto (Bld) [#/Vol]Ordere d By: Sly Benson on 12-30-2022 WBC (Bld) [#/Vol] 6.8 10*3/uL 3.8-11.6 [facility] Adrenocorticotropic Hormone PLon 10-31-[address] 35.2 pg/mL Normal 7.2-63.3 [facility] Comment on above: Result Comment: ACTH reference interval for samples collected between 7 and 10 AM. Performed at: [address] [id number] [employer] Repairer: Coleman Lacy PhD, Phone: [phone] PERFORMED BY: [facility] [address] [place] [address] PATHOLOGIST CRISIS WORKER WAYLON SAUNDERS M.D. Performed By: #### C BC, LDH, TSH3, T4F, CMP ####[facility] Xio[address]#### ACTH ####[facility] , Alanine aminotransferase [En zymatic activity/volume] in Serum or PlasmaOrdered By: Sly Benson on 10-31-2022 ALT [Catalytic activity/Vol] 22 U/L [facility] Albumin [Mass/volume] in Ser um or Plasma by Bromocresol green (BCG) dye binding methoOrdered By: Sly Benson on 10-31-2022 Albumin BCG dye [Mass/Vol] 4.0 g/dL 3.5-5.7 [facility] Alkaline phosphatase [Enzyma tic activity/volume] in Serum or PlasmaOrdered By: Sly Benson on 10-31-2022 ALP [Catalytic activity/Vol] 98 U/L 34-104 [facility] Aspartate aminotransferase [ Enzymatic activity/volume] in Serum or PlasmaOrdered By: Sly Benson on 10-31-2022 AST [Catalytic activity/Vol] 28 U/L 13-39 [facility] Basophils Auto (Bld) [#/Vol] Ordered By: Sly Benson on 10-31-2022 Basophils (Bld) [#/Vol] 0.1 10*3/uL 0.0-0.2 [facility] Basophils/100 WBC Auto (Bld) Ordered By: Sly Benson on 10-31-2022 Basophils/100 WBC (Bld) 0.9 % . [facility] Bilirubin.total [Mass/volume ] in Serum or PlasmaOrdered By: Sly Benson on 10-31-2022 Bilirubin [Mass/Vol] 0.7 mg/dL 0.3-1.0 [facility] CT abdomen pelvis w conon CT abdomen pelvis w con [facility] [place] [address] CT Scan Report Signed Patient: Theresa Luu MR#: [id number] : 1945 Acct:[id number] Age/Sex: 77 / F ADM Date: 10/31/22 Loc: Room: [facility] Attending Dr: Sly Benson II DO Copies to: ANTOINETTE Dan II, DO Ordering Provider: Zenobia Parker APRN Date of Service: 10/31/22 CT/CT abdomen pelvis w con: restaging ([id number]) CT/CT chest w con: restaging CT CHEST, [...] seen. Impression dictated by: Sylvain Monroe Jr., Sita10/31/2022 2:24 PM Dictation Location: [place] [address] Transcribed By: [facility] 10/31/22 1424 Dictated By: Sylvain Monroe Jr, DO 10/31/22 1415 Signed By: 10/31/22 1424 Normal [facility] Calcium [Mass/volume] in Ser um or PlasmaOrdered By: Sly Benson on 10-31-2022 Calcium [Mass/Vol] 8.9 mg/dL 8.6-10.3 [facility] Carbon dioxide, total [Moles /volume] in Serum or PlasmaOrdered By: Sly Benson on 10-31-2022 CO2 [Moles/Vol] 28.6 mmol/L 21.0-31.0 [facility] Chloride [Moles/volume] in S mellissa or PlasmaOrdered By: Sly Benson on 10-31-2022 Chloride [Moles/Vol] 104 mmol/L 98-107 [facility] Complete Blood Count Auto Di ffon 10-31-2022 Basophils (Bld) [#/Vol] 0.1 10*3/uL Normal 0.0-0.2 [facility] Comment on above: Result Comment: PERF ORMED BY: [facility] [address] [place] [address] PATHOLOGIST CRISIS WORKER WAYLON SAUNDERS M.D. Performed By: #### C BC, LDH, TSH3, T4F, CMP ####[facility] [id number]#### ACTH ####[facility] , Basophils/100 WBC (Bld) 0.9 % Normal . [facility] Comment on above: Performed By: #### C BC, LDH, TSH3, T4F, CMP ####[facility]1111 [address]#### ACTH ####[facility] , Eosinophils (Bld) [#/Vol] 0.1 10*3/uL Normal 0.0-0.45 [facility] Comment on above: Performed By: #### C BC, LDH, TSH3, T4F, CMP ####[address]#### ACTH ####[facility] , Eosinophils/100 WBC (Bld) 1.8 % Normal . [facility] Comment on above: Performed By: #### C BC, LDH, TSH3, T4F, CMP ####[address]#### ACTH ####[facility] , Erythrocyte distribution width (RBC) [Ratio] 15.0 % Normal 11.9-15.3 [facility] Comment on above: Performed By: #### C BC, LDH, TSH3, T4F, CMP ####[place] [address] [place]#### ACTH ####[facility] , Hematocrit (Bld) [Volume fraction] 41.3 % Normal 34.0-46.4 [facility] Comment on above: Performed By: #### C BC, LDH, TSH3, T4F, CMP ####[address]#### ACTH ####[facility] , Hemoglobin (Bld) [Mass/Vol] 14.0 g/dL Normal 11.8-15.4 [facility] Comment on above: Performed By: #### C BC, LDH, TSH3, T4F, CMP ####[place] [address] [place]#### ACTH ####[facility] , Lymphocytes (Bld) [#/Vol] 1.8 10*3/uL Normal 1.00-4.8 [facility] Comment on above: Performed By: #### C BC, LDH, TSH3, T4F, CMP ####[place] [address] [place]#### ACTH ####[facility] , Lymphocytes/100 WBC (Bld) 26.5 % Normal . [facility] Comment on above: Performed By: #### C BC, LDH, TSH3, T4F, CMP ####[place] [address] [place]#### ACTH ####[facility] , MCH (RBC) [Entitic mass] 29.7 pg Normal 24.7-34.3 [facility] Comment on above: Performed By: #### C BC, LDH, TSH3, T4F, CMP ####[address]#### ACTH ####[facility] , MCV (RBC) [Entitic vol] 87.8 fL Normal 80-100 [facility] Comment on above: Performed By: #### C BC, LDH, TSH3, T4F, CMP ####[address]#### ACTH ####[facility] , Mean Corpuscular HGB Conc 33.8 g/dL Normal 32.0-35.0 [facility] Comment on above: Performed By: #### C BC, LDH, TSH3, T4F, CMP ####[place] [address] [place]#### ACTH ####[facility] , Monocytes (Bld) [#/Vol] 0.8 10*3/uL Normal 0.0-0.8 [facility] Comment on above: Performed By: #### C BC, LDH, TSH3, T4F, CMP ####[place] [address] [place]#### ACTH ####[facility] , Monocytes/100 WBC (Bld) 11.2 % Normal . [facility] Comment on above: Performed By: #### C BC, LDH, TSH3, T4F, CMP ####[place] [address] [place]#### ACTH ####[facility] , Neutrophils (Bld) [#/Vol] 4.0 10*3/uL Normal 1.8-7.7 [facility] Comment on above: Performed By: #### C BC, LDH, TSH3, T4F, CMP ####[place] [address] [place]#### ACTH ####[facility] , Neutrophils/100 WBC (Bld) 59.6 % Normal . [facility] Comment on above: Performed By: #### C BC, LDH, TSH3, T4F, CMP ####[place] [address] [place]#### ACTH ####[facility] , NRBC% 0.0 /100{WBC} Normal 0-0.5 [facility] Comment on above: Performed By: #### C BC, LDH, TSH3, T4F, CMP ####[place] [address] [place]#### ACTH ####[facility] , Platelet mean volume (Bld) [Entitic vol] 7.1 fL Normal 6.3-10.7 [facility] Comment on above: Performed By: #### C BC, LDH, TSH3, T4F, CMP ####[place] [address] [place]#### ACTH ####[facility] , Platelets (Bld) [#/Vol] 201 10*3/uL Normal 150-450 [facility] Comment on above: Performed By: #### C BC, LDH, TSH3, T4F, CMP ####[place] [address] [place]#### ACTH ####[facility] , RBC (Bld) [#/Vol] 4.70 10*6/uL Normal 3.60-5.00 [facility] Comment on above: Performed By: #### C BC, LDH, TSH3, T4F, CMP ####[place] [address] [place]#### ACTH ####[facility] , WBC (Bld) [#/Vol] 6.8 10*3/uL Normal 3.8-11.6 [facility] Comment on above: Performed By: #### C BC, LDH, TSH3, T4F, CMP ####[address]#### ACTH ####[facility] , Comprehensive Metabolic Pane eileen 10-31-2022 Albumin [Mass/Vol] 4.0 g/dL Normal 3.5-5.7 [facility] Comment on above: Performed By: #### C BC, LDH, TSH3, T4F, CMP ####[place] [address] [place]#### ACTH ####[facility] , Albumin/Globulin [Mass ratio] 1.4 {ratio} Normal [facility] Comment on above: Performed By: #### C BC, LDH, TSH3, T4F, CMP ####[place] [address] [place]#### ACTH ####[facility] , ALP [Catalytic activity/Vol] 98 U/L Normal 34-104 [facility] Comment on above: Performed By: #### C BC, LDH, TSH3, T4F, CMP ####[place] [address] [place]#### ACTH ####[facility] , ALT [Catalytic activity/Vol] 22 U/L Normal 7-52 [facility] Comment on above: Performed By: #### C BC, LDH, TSH3, T4F, CMP ####[place] [address] [place]#### ACTH ####[facility] , Anion gap [Moles/Vol] 12.2 mmol/L Normal 6.0-15.0 [facility] Comment on above: Performed By: #### C BC, LDH, TSH3, T4F, CMP ####[place] [address] [place]#### ACTH ####[facility] , AST [Catalytic activity/Vol] 28 U/L Normal 13-39 [facility] Comment on above: Performed By: #### C BC, LDH, TSH3, T4F, CMP ####[place] [address] [place]#### ACTH ####[facility] , Bilirubin [Mass/Vol] 0.7 mg/dL Normal 0.3-1.0 [facility] Comment on above: Performed By: #### C BC, LDH, TSH3, T4F, CMP ####[place] [address] [place]#### ACTH ####[facility] , Calcium [Mass/Vol] 8.9 mg/dL Normal 8.6-10.3 [facility] Comment on above: Performed By: #### C BC, LDH, TSH3, T4F, CMP ####[place] [address] [place]#### ACTH ####[facility] , Chloride [Moles/Vol] 104 mmol/L Normal 98-107 [facility] Comment on above: Performed By: #### C BC, LDH, TSH3, T4F, CMP ####[place] [address] [place]#### ACTH ####[facility] , CO2 [Moles/Vol] 28.6 mmol/L Normal 21.0-31.0 [facility] Comment on above: Performed By: #### C BC, LDH, TSH3, T4F, CMP ####[facility]#### ACTH ####[facility] , Creatinine [Mass/Vol] 0.93 mg/dL Normal 0.60-1.20 [facility] Comment on above: Performed By: #### C BC, LDH, TSH3, T4F, CMP ####[place] [address] [place]#### ACTH ####[facility] , Creatinine Clr Calc Pharmacy 54.88 [facility] Comment on above: Performed By: #### C BC, LDH, TSH3, T4F, CMP ####[place] [address] [place]#### ACTH ####[facility] , GFR/1.73 sq M.predicted MDRD (S/P/Bld) [Vol rate/Area] mL/min/{1.73_m2} [facility] Comment on above: Performed By: #### C BC, LDH, TSH3, T4F, CMP ####[place] [address] [place]#### ACTH ####[facility] , Globulin (S) [Mass/Vol] 2.9 g/dL [facility] Comment on above: Performed By: #### C BC, LDH, TSH3, T4F, CMP ####[place] [address] [place]#### ACTH ####[facility] , Glucose [Mass/Vol] 100 mg/dL Normal 70-100 [facility] Comment on above: Result Comment: [place] Glucose Reference Range is dependent on time and content of last meal. Glucose of more than 200 mg/dL in a nonstressed, ambulatory subject supports the diagnosis of Diabetes Mellitus. ADA recommended reference range Performed By: #### C BC, LDH, TSH3, T4F, CMP ####[place] [address] [place]#### ACTH ####[facility] , Potassium [Moles/Vol] 3.8 mmol/L Normal 3.5-5.1 [facility] Comment on above: Performed By: #### C BC, LDH, TSH3, T4F, CMP ####[place] [address] [place]#### ACTH ####[facility] , Protein [Mass/Vol] 6.9 g/dL Normal 6.4-8.9 [facility] Comment on above: Performed By: #### C BC, LDH, TSH3, T4F, CMP ####[place] [address] [place]#### ACTH ####[facility] , Sodium [Moles/Vol] 141 mmol/L Normal 136-145 [facility] Comment on above: Performed By: #### C BC, LDH, TSH3, T4F, CMP ####[place] [address] [place]#### ACTH ####[facility] , Urea nitrogen [Mass/Vol] 19 mg/dL Normal 7-25 [facility] Comment on above: Performed By: #### C BC, LDH, TSH3, T4F, CMP ####[place] [address] [place]#### ACTH ####[facility] , Creatinine [Mass/volume] in Serum or PlasmaOrdered By: Sly Benson on 10-31-2022 Creatinine [Mass/Vol] 0.93 mg/dL 0.60-1.20 [facility] Eosinophils Auto (Bld) [#/Vo l]Ordered By: Sly Benson on 10-31-2022 Eosinophils (Bld) [#/Vol] 0.1 10*3/uL 0.0-0.45 [facility] Eosinophils/100 WBC Auto (Bl d)Ordered By: Sly Benson on 10-31-2022 Eosinophils/100 WBC (Bld) 1.8 % . [facility] Erythrocyte distribution wid th Auto (RBC) [Ratio]Ordered By: Sly Benson on 10-31-2022 Erythrocyte distribution width (RBC) [Ratio] 15.0 % 11.9-15.3 [facility] Free T4 (Free Thyroxine)on 0 10-31-2022 Free T4 [Mass/Vol] 1.02 ng/dL Normal 0.61-1.12 [facility] Comment on above: Performed By: #### C BC, LDH, TSH3, T4F, CMP ####[facility] [id number]#### ACTH ####[facility] , Globulin Calc (S) [Mass/Vol] Ordered By: Sly Benson on 10-31-2022 Globulin (S) [Mass/Vol] 2.9 g/dL [facility] Glucose [Mass/volume] in Ser um or PlasmaOrdered By: Sly Benson on 10-31-2022 Glucose [Mass/Vol] 100 mg/dL 70-100 [facility] Comment on above: ADA recommended refe rence rangeRandom Glucose Reference Range is dependent on time and content of last meal. Glucose of more than 200 mg/dL in a nonstressed, ambulatory subject supports the diagnosis of Diabetes Mellitus. Hematocrit Auto (Bld) [Volum e fraction]Ordered By: Sly Benson on 10-31-2022 Hematocrit (Bld) [Volume fraction] 41.3 % 34.0-46.4 [facility] Hemoglobin [Mass/volume] in BloodOrdered By: Sly Benson on 10-31-2022 Hemoglobin (Bld) [Mass/Vol] 14.0 g/dL 11.8-15.4 [facility] LDH Lactate Dehydrogenaseon 10-31-2022 LDH Lactate Dehydrogenase 226 U/L Normal 140-271 [facility] Comment on above: Performed By: #### C BC, LDH, TSH3, T4F, CMP ####[facility] [id number] [place] [address] [facility]#### ACTH ####[facility] , Lactate dehydrogenase [Enzym atic activity/volume] in Serum or Plasma by Lactate to pyOrdered By: Sly Benson on 10-31-2022 LDH Lactate to pyruvate reaction [Catalytic activity/Vol] 226 U/L 140-271 [facility] Leukocytes [#/volume] correc margot for nucleated erythrocytes in Blood by Automated counOrdered By: Sly Benson on 10-31-2022 WBC corrected for nucl RBC Auto (Bld) [#/Vol] 6.8 10*3/uL 3.8-11.6 [facility] Lymphocytes Auto (Bld) [#/Vo l]Ordered By: Sly Benson on 10-31-2022 Lymphocytes (Bld) [#/Vol] 1.8 10*3/uL 1.00-4.8 [facility] Lymphocytes/100 WBC Auto (Bl d)Ordered By: Sly Benson on 10-31-2022 Lymphocytes/100 WBC (Bld) 26.5 % . [facility] MCH Auto (RBC) [Entitic mass ]Ordered By: Sly Benson on 10-31-2022 MCH (RBC) [Entitic mass] 29.7 pg 24.7-34.3 [facility] MCHC Auto (RBC) [Mass/Vol]Or dered By: Sly Benson on 10-31-2022 MCHC (RBC) [Mass/Vol] 33.8 g/dL 32.0-35.0 [facility] MCV Auto (RBC) [Entitic vol] Ordered By: Sly Benson on 10-31-2022 MCV (RBC) [Entitic vol] 87.8 fL 80-100 [facility] Monocytes Auto (Bld) [#/Vol] Ordered By: Sly Benson on 10-31-2022 Monocytes (Bld) [#/Vol] 0.8 10*3/uL 0.0-0.8 [facility] Monocytes/100 WBC Auto (Bld) Ordered By: Sly Benson on 10-31-2022 Monocytes/100 WBC (Bld) 11.2 % . [facility] Neutrophils Auto (Bld) [#/Vo l]Ordered By: Sly Benson on 10-31-2022 Neutrophils (Bld) [#/Vol] 4.0 10*3/uL 1.8-7.7 [facility] Neutrophils/100 WBC Auto (Bl d)Ordered By: Sly Benson on 10-31-2022 Neutrophils/100 WBC (Bld) 59.6 % . [facility] No Panel InformationOrdered By: Sly Benson on 10-31-2022 Adrenocorticotropic Hormone 35.2 pg/mL 7.2-63.3 [facility] Comment on above: ACTH reference inter jamel for samples collected between 7 and10 AM.Performed at: [facility] [place] [id number] Director: Coleman Lacy PhD, Phone: [phone] Estimated GFR (CKD-EPI) > 60.0 mL/Min [facility] Creatinine Clearance (Chem 54.88 [facility] Nucleated erythrocytes [Pres ence] in Blood by Automated countOrdered By: Sly Benson on 10-31-2022 Nucleated RBC Auto Ql (Bld) 0.0 /100{WBC} 0-0.5 [facility] Platelet mean volume Auto (B ld) [Entitic vol]Ordered By: Sly Benson on 10-31-2022 Platelet mean volume (Bld) [Entitic vol] 7.1 fL 6.3-10.7 [facility] Platelets Auto (Bld) [#/Vol] Ordered By: Sly Benson on 10-31-2022 Platelets (Bld) [#/Vol] 201 10*3/uL 150-450 [facility] Potassium [Moles/volume] in Serum or PlasmaOrdered By: Sly Benson on 10-31-2022 Potassium [Moles/Vol] 3.8 mmol/L 3.5-5.1 [facility] Protein [Mass/volume] in Ser um or PlasmaOrdered By: Sly Benson on 10-31-2022 Protein [Mass/Vol] 6.9 g/dL 6.4-8.9 [facility] RBC Auto (Bld) [#/Vol]Ordere d By: Sly Benson on 10-31-2022 RBC (Bld) [#/Vol] 4.70 10*6/uL 3.60-5.00 [facility] Serum or plasma albumin/glob ulin mass ratioOrdered By: Sly Benson on 10-31-2022 Albumin/Globulin [Mass ratio] 1.4 {ratio} [facility] Serum or plasma anion gap de terminationOrdered By: Sly Benson on 10-31-2022 Anion gap [Moles/Vol] 12.2 mmol/L 6.0-15.0 [facility] Sodium [Moles/volume] in Ser um or PlasmaOrdered By: Sly Benson on 10-31-2022 Sodium [Moles/Vol] 141 mmol/L 136-145 [facility] Thyroid Stimulating Hormoneo n 10-31-2022 TSH Qn 2.49 m[IU]/L Normal 0.45-5.33 [facility] Comment on above: Result Comment: PERF ORMED BY: [facility] [address] [place] [address] PATHOLOGIST [employer]IS [employer]ER WAYLON SAUNDERS M.D. Performed By: #### C BC, LDH, TSH3, T4F, CMP ####[facility] [address]#### ACTH ####[facility] , Thyrotropin [Units/volume] i n Serum or PlasmaOrdered By: Sly Benson on 10-31-2022 TSH Qn 2.49 m[IU]/L 0.45-5.33 [facility] Thyroxine (T4) free [Mass/vo lume] in Serum or PlasmaOrdered By: Sly Benson on 10-31-2022 Free T4 [Mass/Vol] 1.02 ng/dL 0.61-1.12 [facility] Urea nitrogen [Mass/volume] in Serum or PlasmaOrdered By: Sly Benson on 10-31-2022 Urea nitrogen [Mass/Vol] 19 mg/dL 02-03 [facility] WBC Auto (Bld) [#/Vol]Ordere d By: Sly Benson on 10-31-2022 WBC (Bld) [#/Vol] 6.8 10*3/uL 3.8-11.6 [facility] ACTH, PLASMAon 10-04-2022 ACTH, Plasma 48.7 pg/mL Normal 7.2-63.3 [facility] Comment on above: Result Comment: ACTH reference interval for samples collected between 7 and 10 AM. Performed By: #### A CTHP #### [facility] [address] [place] [address] Dr. Alesia Meyers CBC AUTO DIFFon 10-03-2022 BASO # 0.1 103/ul Normal 0.0-0.1 [facility] Comment on above: Performed By: #### T SH, CMP, LDH #### [facility] [address] [place] [address] [address] Alesia Meyers Basophils/100 WBC (Bld) 1.2 % Normal 0.2-2.0 [facility] Comment on above: Performed By: #### T SH, CMP, LDH #### [facility] [address] [place] [address] [address] Alesia Meyers EO # 0.2 103/ul Normal 0.0-0.7 [facility] Comment on above: Performed By: #### T SH, CMP, LDH #### [facility] [address] [place] [address] [address] Alesia Meyers Eosinophils/100 WBC (Bld) 2.5 % Normal 0.9-7.0 [facility] Comment on above: Performed By: #### T SH, CMP, LDH #### [facility] [address] [place] [address] Dr. Alesia Meyers Erythrocyte distribution width (RBC) [Ratio] 13.9 % Normal 11.0-15.0 [facility] Comment on above: Performed By: #### T SH, CMP, LDH #### [facility] [address] [place] [address] Dr. Alesia Meyers Hematocrit (Bld) [Volume fraction] 41.9 % Normal 36.0-48.0 [facility] Comment on above: Performed By: #### T SH, CMP, LDH #### [facility] [address] [place] [address] Dr. Alesia Meyers Hemoglobin (Bld) [Mass/Vol] 13.6 g/dL Normal 12.0-16.0 [facility] Comment on above: Performed By: #### T SH, CMP, LDH #### [facility] [address] [place] [address] Dr. Alesia Meyers IG # 0.04 10e3/ul Critically high 0.00-0.03 [facility] Comment on above: Performed By: #### T SH, CMP, LDH #### [facility] [address] [place] [address] Dr. Alesia Meyers IG % 0.7 % Critically high 0.0-0.5 [facility] Comment on above: Performed By: #### T SH, CMP, LDH #### [facility] [address] [place] [address] Dr. Alesia Meyers LYMPH # 2.1 103/ul Normal 1.2-3.8 [facility] Comment on above: Performed By: #### T SH, CMP, LDH #### [facility] [address] [place] [address] Dr. Alesia Meyers Lymphocytes/100 WBC (Bld) 35.5 % Normal 20.5-60.0 [facility] Comment on above: Performed By: #### T SH, CMP, LDH #### [facility] [address] [place] [address] Dr. Alesia Meyers MANUAL DIFF REQ NO Normal [facility] Comment on above: Performed By: #### T SH, CMP, LDH #### [facility] [address] [place] [address] Dr. Alesia Meyers MCH (RBC) [Entitic mass] 28.9 pg Normal 26.7-34.0 [facility] Comment on above: Performed By: #### T SH, CMP, LDH #### [facility] [address] [place] [address] Dr. Alesia Meyers MCHC (RBC) [Mass/Vol] 32.5 g/dL Normal 29.9-35.2 [facility] Comment on above: Performed By: #### T SH, CMP, LDH #### [facility] [address] [place] [address] Dr. Alesia Meyers MCV (RBC) [Entitic vol] 89.1 fL Normal 81.0-99.0 [facility] Comment on above: Performed By: #### T SH, CMP, LDH #### [facility] [address] [place] [address] Dr. Alesia Meyers MONO # 0.6 103/ul Normal 0.3-0.8 [facility] Comment on above: Performed By: #### T SH, CMP, LDH #### [facility] [address] [place] [address] Dr. Alesia Meyers Monocytes/100 WBC (Bld) 10.8 % Normal 1.7-12.0 [facility] Comment on above: Performed By: #### T SH, CMP, LDH #### [facility] [address] [place] [address] Dr. Alesia Meyers NEUT # 2.9 103/ul Normal 1.4-6.5 [facility] Comment on above: Performed By: #### T SH, CMP, LDH #### [facility] [address] [place] [address] Dr. Alesia Meyers Neutrophils/100 WBC (Bld) 49.3 % Normal 43.0-75.0 [facility] Comment on above: Performed By: #### T SH, CMP, LDH #### [facility] [address] [place] [address] Dr. Alesia Meyers Platelet mean volume (Bld) [Entitic vol] 8.8 fL Critically low 9.5-13.5 [facility] Comment on above: Performed By: #### T SH, CMP, LDH #### [facility] [address] [place] [address] [address] Alesia Meyers PLT 226 103/ul Normal 150-450 [facility] Comment on above: Performed By: #### T SH, CMP, LDH #### [facility] [address] [place] [address] [address] Alesia Meyers RBC 4.70 106/ul Normal 4.20-5.40 [facility] Comment on above: Performed By: #### T SH, CMP, LDH #### [facility] [address] [place] [address] Dr. Alesia Meyers WBC 5.9 103/ul Normal 4.0-11.0 [facility] Comment on above: Performed By: #### T SH, CMP, LDH #### [facility] [address] [place] [address] Dr. Alesia Meyers FREE T4on 10-03-2022 Free T4 [Mass/Vol] 1.02 ng/dL Normal 0.76-1.46 [facility] Comment on above: Performed By: #### F T4 #### [facility] [address] [place] [address] Dr. Alesia Meyers LDHon 10-03-2022 LDH 212 U/L Normal 81-234 [facility] Comment on above: Performed By: #### F T4 #### [facility] [address] [place] [address] Dr. Alesia Meyers PROF 14(COMP METB)on 023 Albumin [Mass/Vol] 3.5 g/dL Normal 3.4-5.0 [facility] Comment on above: Performed By: #### F T4 #### [facility] [address] [place] [address] Dr. Alesia Meyers Albumin/Globulin [Mass ratio] 1.1 {ratio} Normal [facility] Comment on above: Performed By: #### F T4 #### [facility] [address] [place] [address] Dr. Alesia Meyers ALP [Catalytic activity/Vol] 120 U/L Critically high 46-116 [facility] Comment on above: Performed By: #### F T4 #### [facility] [address] [place] [address] [address] Alesia Meyers ALT [Catalytic activity/Vol] 37 U/L Normal 14-59 [facility] Comment on above: Performed By: #### F T4 #### [facility] [address] [place] [address] Dr. Alesia Meyers Anion gap [Moles/Vol] 11.4 mmol/L Normal [facility] Comment on above: Performed By: #### F T4 #### [facility] [address] [place] [address] [address] Alesia Meyers AST [Catalytic activity/Vol] 28 U/L Normal 15-37 [facility] Comment on above: Performed By: #### F T4 #### [facility] [address] [place] [address] Dr. Alesia Meyers Bilirubin [Mass/Vol] 0.4 mg/dL Normal 0.2-1.0 [facility] Comment on above: Performed By: #### F T4 #### [facility] [address] [place] [address] Dr. Alesia Meyers Calcium [Mass/Vol] 9.2 mg/dL Normal 8.5-10.1 [facility] Comment on above: Performed By: #### F T4 #### [facility] [address] [place] [address] Dr. Alesia Meyers Chloride [Moles/Vol] 105 mmol/L Normal 98-107 [facility] Comment on above: Performed By: #### F T4 #### [facility] [address] [place] [address] Dr. Alesia Meyers CO2 [Moles/Vol] 30.4 mmol/L Normal 21.0-32.0 [facility] Comment on above: Performed By: #### F T4 #### [facility] [address] [place] [address] Dr. Alesia Meyers Creatinine [Mass/Vol] 0.88 mg/dL Normal 0.55-1.02 [facility] Comment on above: Performed By: #### F T4 #### [facility] [address] [place] [address] [address] Alesia Myeers EGFR-AF [place] >60 Normal >=60 [facility] Comment on above: Performed By: #### F T4 #### [facility] [address] [place] [address] Dr. Alesia Meyers EGFR-NON AF [place] >60 Normal >=60 [facility] Comment on above: Performed By: #### F T4 #### [facility] [address] [place] [address] [address] Alesia Meyers Globulin (S) [Mass/Vol] 3.3 g/dL Normal [facility] Comment on above: Performed By: #### F T4 #### [facility] [address] [place] [address] Dr. Alesia Meyers Glucose [Mass/Vol] 104 mg/dL Normal 74-106 [facility] Comment on above: Performed By: #### F T4 #### [facility] [address] [place] [address] Dr. Alesia Meyers Potassium [Moles/Vol] 3.8 mmol/L Normal 3.5-5.1 [facility] Comment on above: Performed By: #### F T4 #### [facility] [address] [place] [address] Dr. Alesia Meyers Protein [Mass/Vol] 6.8 g/dL Normal 6.4-8.2 [facility] Comment on above: Performed By: #### F T4 #### [facility] [address] [place] [address] Dr. Alesia Meyers Sodium [Moles/Vol] 143 mmol/L Normal 136-145 [facility] Comment on above: Performed By: #### F T4 #### [facility] [address] [place] [address] Dr. Alesia Meyers Urea nitrogen [Mass/Vol] 19.0 mg/dL Critically high 7.0-18.0 [facility] Comment on above: Performed By: #### F T4 #### [facility] [address] [place] [address] Dr. Alesia Meyers Urea nitrogen/Creatinine [Mass ratio] 21.6 mg/mg Normal [facility] Comment on above: Performed By: #### F T4 #### [facility] [address] [place] [address] Dr. Alesia Meyers TSHon 10-03-2022 TSH 3.819 uIU/mL Critically high 0.358-3.74 0 [facility] Comment on above: Performed By: #### F T4 #### [facility] [address] [place] [address] Dr. Alesia Meyers ACTH, PLASMAon 09-06-2022 ACTH, Plasma 6.3 pg/mL Critically low 7.2-63.3 [facility] Comment on above: Result Comment: ACTH reference interval for samples collected between 7 and 10 AM. Performed By: #### T SH, CMP, LDH #### [facility] [address] [place] [address] Dr. Alesia Meyers CBC AUTO DIFFon 09-05-2022 BASO # 0.0 103/ul Normal 0.0-0.1 [facility] Comment on above: Performed By: #### T SH, CMP, LDH #### [facility] [address] [place] [address] Dr. Alesia Meyers Basophils/100 WBC (Bld) 0.3 % Normal 0.2-2.0 [facility] Comment on above: Performed By: #### T SH, CMP, LDH #### [facility] [address] [place] [address] Dr. Alesia Meyers EO # 0.1 103/ul Normal 0.0-0.7 [facility] Comment on above: Performed By: #### T SH, CMP, LDH #### [facility] [address] [place] [address] Dr. Alesia Meyers Eosinophils/100 WBC (Bld) 0.6 % Critically low 0.9-7.0 [facility] Comment on above: Performed By: #### T SH, CMP, LDH #### [facility] [address] [place] [address] Dr. Alesia Meyers Erythrocyte distribution width (RBC) [Ratio] 14.4 % Normal 11.0-15.0 [facility] Comment on above: Performed By: #### T SH, CMP, LDH #### [facility] [address] [place] [address] Dr. Alesia Meyers Hematocrit (Bld) [Volume fraction] 41.6 % Normal 36.0-48.0 [facility] Comment on above: Performed By: #### T SH, CMP, LDH #### [facility] [address] [place] [address] Dr. Alesia Meyers Hemoglobin (Bld) [Mass/Vol] 13.7 g/dL Normal 12.0-16.0 [facility] Comment on above: Performed By: #### T SH, CMP, LDH #### [facility] [address] [place] [address] Dr. Alesia Meyers IG # 0.14 10e3/ul Critically high 0.00-0.03 [facility] Comment on above: Performed By: #### T SH, CMP, LDH #### [facility] [address] [place] [address] Dr. Alesia Meyers IG % 1.6 % Critically high 0.0-0.5 [facility] Comment on above: Performed By: #### T SH, CMP, LDH #### [facility] [address] [place] [address] Dr. Alesia Meyers LYMPH # 2.7 103/ul Normal 1.2-3.8 [facility] Comment on above: Performed By: #### T SH, CMP, LDH #### [facility] [address] [place] [address] Dr. Alesia Meyers Lymphocytes/100 WBC (Bld) 30.2 % Normal 20.5-60.0 [facility] Comment on above: Performed By: #### T SH, CMP, LDH #### [facility] [address] [place] [address] Dr. Alesia Meyers MANUAL DIFF REQ NO Normal [facility] Comment on above: Performed By: #### T SH, CMP, LDH #### [facility] [address] [place] [address] Dr. Alesia Meyers MCH (RBC) [Entitic mass] 28.7 pg Normal 26.7-34.0 [facility] Comment on above: Performed By: #### T SH, CMP, LDH #### [facility] [address] [place] [address] Dr. Alesia Meyers MCHC (RBC) [Mass/Vol] 32.9 g/dL Normal 29.9-35.2 [facility] Comment on above: Performed By: #### T SH, CMP, LDH #### [facility] [address] [place] [address] Dr. Alesia Meyers MCV (RBC) [Entitic vol] 87.2 fL Normal 81.0-99.0 [facility] Comment on above: Performed By: #### T SH, CMP, LDH #### [facility] [address] [place] [address] Dr. Alesia Meyers MONO # 1.0 103/ul Critically high 0.3-0.8 [facility] Comment on above: Performed By: #### T SH, CMP, LDH #### [facility] [address] [place] [address] Dr. Alesia Meyers Monocytes/100 WBC (Bld) 10.8 % Normal 1.7-12.0 [facility] Comment on above: Performed By: #### T SH, CMP, LDH #### [facility] [address] [place] [address] Dr. Alesia Meyers NEUT # 5.0 103/ul Normal 1.4-6.5 [facility] Comment on above: Performed By: #### T SH, CMP, LDH #### [facility] [address] [place] [address] Dr. Alesia Meyers Neutrophils/100 WBC (Bld) 56.5 % Normal 43.0-75.0 [facility] Comment on above: Performed By: #### T SH, CMP, LDH #### [facility] [address] [place] [address] Dr. Alesia Meyers Platelet mean volume (Bld) [Entitic vol] 9.1 fL Critically low 9.5-13.5 [facility] Comment on above: Performed By: #### T SH, CMP, LDH #### [facility] [address] [place] [address] Dr. Alesia Meyers PLT 217 103/ul Normal 150-450 [facility] Comment on above: Performed By: #### T SH, CMP, LDH #### [facility] [address] [place] [address] Dr. Alesia Meyers RBC 4.77 106/ul Normal 4.20-5.40 [facility] Comment on above: Performed By: #### T SH, CMP, LDH #### [facility] [address] [place] [address] Dr. Alesia Meyers WBC 8.8 103/ul Normal 4.0-11.0 [facility] Comment on above: Performed By: #### T SH, CMP, LDH #### [facility] [address] [place] [address] Dr. Alesia Meyers FREE T4on 09-05-2022 Free T4 [Mass/Vol] 1.22 ng/dL Normal 0.76-1.46 [facility] Comment on above: Performed By: #### F T4 #### [facility] [address] [place] [address] Dr. Alesia Meyers LDHon 09-05-2022 LDH 212 U/L Normal 81-234 [facility] Comment on above: Performed By: #### T SH, CMP, LDH #### [facility] [address] [place] [address] Dr. Alesia Meyers PROF 14(COMP METB)on 023 Albumin [Mass/Vol] 3.4 g/dL Normal 3.4-5.0 [facility] Comment on above: Performed By: #### T SH, CMP, LDH #### [facility] [address] [place] [address] Dr. Alesia Meyers Albumin/Globulin [Mass ratio] 1.1 {ratio} Normal [facility] Comment on above: Performed By: #### T SH, CMP, LDH #### [facility] [address] [place], [place] [id number] Dr. Alesia Meyers ALP [Catalytic activity/Vol] 101 U/L Normal 46-116 [facility] Comment on above: Performed By: #### T SH, CMP, LDH #### [facility] [address] [address] [address] Alesia Meyers ALT [Catalytic activity/Vol] 40 U/L Normal 14-59 [facility] Comment on above: Performed By: #### T SH, CMP, LDH #### [facility] [address] [address] [address] Alesia Meyers Anion gap [Moles/Vol] 10.7 mmol/L Normal [facility] Comment on above: Performed By: #### T SH, CMP, LDH #### [facility] [address] [place] [address] Dr. Alesia Meyers AST [Catalytic activity/Vol] 25 U/L Normal 15-37 [facility] Comment on above: Performed By: #### T SH, CMP, LDH #### [facility] [address] [place] [address] Dr. Alesia Meyers Bilirubin [Mass/Vol] 0.4 mg/dL Normal 0.2-1.0 [facility] Comment on above: Performed By: #### T SH, CMP, LDH #### [facility] [address] [place] [address] Dr. Alesia Meyers Calcium [Mass/Vol] 8.7 mg/dL Normal 8.5-10.1 [facility] Comment on above: Performed By: #### T SH, CMP, LDH #### [facility] [address] [place] [address] Dr. Alesia Meyers Chloride [Moles/Vol] 105 mmol/L Normal 98-107 [facility] Comment on above: Performed By: #### T SH, CMP, LDH #### [facility] [address] [place] [address] Dr. Alesia Meyers CO2 [Moles/Vol] 30.0 mmol/L Normal 21.0-32.0 [facility] Comment on above: Performed By: #### T SH, CMP, LDH #### [facility] [address] [address] [address] Alesia Meyers Creatinine [Mass/Vol] 0.83 mg/dL Normal 0.55-1.02 [facility] Comment on above: Performed By: #### T SH, CMP, LDH #### [facility] [address] [address] [address] Alesia Meyers EGFR-AF [place] >60 Normal >=60 [facility] Comment on above: Performed By: #### T SH, CMP, LDH #### [facility] [address] [address] [address] Alesia Meyers EGFR-NON AF [place] >60 Normal >=60 [facility] Comment on above: Performed By: #### T SH, CMP, LDH #### [facility] [address] [address] [address] Alesia Meyers Globulin (S) [Mass/Vol] 3.2 g/dL Normal [facility] Comment on above: Performed By: #### T SH, CMP, LDH #### [facility] [address] [address] [address] Alesia Meyers Glucose [Mass/Vol] 96 mg/dL Normal 74-106 [facility] Comment on above: Performed By: #### T SH, CMP, LDH #### [facility] [address] [address] [address] Alesia Meyers Potassium [Moles/Vol] 3.7 mmol/L Normal 3.5-5.1 [facility] Comment on above: Performed By: #### T SH, CMP, LDH #### [facility] [address] [address] [address] Alesia Meyers Protein [Mass/Vol] 6.6 g/dL Normal 6.4-8.2 [facility] Comment on above: Performed By: #### T SH, CMP, LDH #### [facility] [address] [address] [address] Alesia Meyers Sodium [Moles/Vol] 142 mmol/L Normal 136-145 [facility] Comment on above: Performed By: #### T SH, CMP, LDH #### [facility] [address] [place], [place] [address] Dr. Alesia Meyers Urea nitrogen [Mass/Vol] 29.0 mg/dL Critically high 7.0-18.0 [facility] Comment on above: Performed By: #### T SH, CMP, LDH #### [facility] [address] [address] [address] Alesia Meyers Urea nitrogen/Creatinine [Mass ratio] 34.9 mg/mg Normal [facility] Comment on above: Performed By: #### T SH, CMP, LDH #### [facility] [address] [address] [address] Alesia Meyers TSHon 09-05-2022 TSH 3.372 uIU/mL Normal 0.358-3.74 0 [facility] Comment on above: Performed By: #### T SH, CMP, LDH #### [facility] [address] [address] [address] Alesia Meyers Albumin [Mass/volume] in Ser um or PlasmaOrdered By: Sly Benson on 08-08-2022 Albumin [Mass/Vol] 4.0 g/dL 3.2-5.5 [facility] Basophils Auto (Bld) [#/Vol] Ordered By: Sly Benson on 08-08-2022 Basophils (Bld) [#/Vol] 0.1 10*3/uL 0.0-0.2 [facility] Basophils/100 WBC Auto (Bld) Ordered By: Sly Benson on 08-08-2022 Basophils/100 WBC (Bld) 0.7 % . [facility] Creatinine and Glomerular fi ltration rate.predicted panel (S/P/Bld)Ordered By: Sly Benson on 08-08-2022 Creatinine [Mass/Vol] 0.93 mg/dL 0.44-1.03 [facility] Direct bilirubin measurement Ordered By: Sly Benson on 08-08-2022 Bilirubin.direct [Mass/Vol] mg/dL 0.0-0.4 [facility] Eosinophils Auto (Bld) [#/Vo l]Ordered By: Sly Benson on 08-08-2022 Eosinophils (Bld) [#/Vol] 0.2 10*3/uL 0.0-0.45 [facility] Eosinophils/100 WBC Auto (Bl d)Ordered By: Sly Benson on 08-08-2022 Eosinophils/100 WBC (Bld) 2.1 % . [facility] Erythrocyte distribution wid th Auto (RBC) [Ratio]Ordered By: Sly Benson on 08-08-2022 Erythrocyte distribution width (RBC) [Ratio] 14.7 % 11.9-15.3 [facility] Estimated glomerular filtrat ion rate (GFR) non- AmericanOrdered By: Sly Benson on 08-08-2022 GFR/1.73 sq M.predicted among non-blacks MDRD (S/P/Bld) [Vol rate/Area] 59 mL/Min [facility] Globulin Calc (S) [Mass/Vol] Ordered By: Sly Benson on 08-08-2022 Globulin (S) [Mass/Vol] 3.1 g/dL [facility] Hematocrit Auto (Bld) [Volum e fraction]Ordered By: Sly Benson on 08-08-2022 Hematocrit (Bld) [Volume fraction] 42.9 % 34.0-46.4 [facility] Hemoglobin [Mass/volume] in BloodOrdered By: Sly Benson on 08-08-2022 Hemoglobin (Bld) [Mass/Vol] 14.4 g/dL 11.8-15.4 [facility] Laboratory - Chemistry and C hemistry - challengeOrdered By: Sly Benson on 08-08-2022 Lipase [Catalytic activity/Vol] 33.0 U/L 22-51 [facility] Lactate dehydrogenase measur ement (enzymatic activity/volume)Ordered By: Sly Benson on 08-08-2022 LDH (Unsp spec) [Catalytic activity/Vol] 209 U/L 45-190 [facility] Leukocytes [#/volume] correc margot for nucleated erythrocytes in Blood by Automated counOrdered By: Sly Benson on 08-08-2022 WBC corrected for nucl RBC Auto (Bld) [#/Vol] 7.6 10*3/uL 3.8-11.6 [facility] Lymphocytes Auto (Bld) [#/Vo l]Ordered By: Sly Benson on 08-08-2022 Lymphocytes (Bld) [#/Vol] 2.2 10*3/uL 1.00-4.8 [facility] Lymphocytes/100 WBC Auto (Bl d)Ordered By: Sly Benson on 08-08-2022 Lymphocytes/100 WBC (Bld) 29.6 % . [facility] MCH Auto (RBC) [Entitic mass ]Ordered By: Sly Benson on 08-08-2022 MCH (RBC) [Entitic mass] 29.0 pg 24.7-34.3 [facility] MCHC Auto (RBC) [Mass/Vol]Or dered By: Sly Benson on 08-08-2022 MCHC (RBC) [Mass/Vol] 33.6 g/dL 32.0-35.0 [facility] MCV Auto (RBC) [Entitic vol] Ordered By: Sly Benson on 08-08-2022 MCV (RBC) [Entitic vol] 86.1 fL 80-100 [facility] Monocytes Auto (Bld) [#/Vol] Ordered By: Sly Benson on 08-08-2022 Monocytes (Bld) [#/Vol] 0.7 10*3/uL 0.0-0.8 [facility] Monocytes/100 WBC Auto (Bld) Ordered By: Sly Benson on 08-08-2022 Monocytes/100 WBC (Bld) 9.0 % . [facility] Neutrophils Auto (Bld) [#/Vo l]Ordered By: Sly Benson on 08-08-2022 Neutrophils (Bld) [#/Vol] 4.4 10*3/uL 1.8-7.7 [facility] Neutrophils/100 WBC Auto (Bl d)Ordered By: Sly Benson on 08-08-2022 Neutrophils/100 WBC (Bld) 58.6 % . [facility] No Panel InformationOrdered By: Sly Benson on 08-08-2022 Adrenocorticotropic Hormone 35.2 pg/mL 7.2-63.3 [facility] Comment on above: ACTH reference inter jamel for samples collected between 7 and10 AM.Performed at: [employer] [id number] Director: Coleman Lacy PhD, Phone: [phone] Estimated GFR () > 60 mL/Min [facility] Comment on above: GFR estimated refere nce range: According to KDOQI guidelines, <60 ml/min/1.73m2 is sufficient to diagnose a patient with chronic kidney disease. Pharmacy Creatinine Clearance (Chem 55.32 [facility] Nucleated erythrocytes [Pres ence] in Blood by Automated countOrdered By: Sly Benson on 08-08-2022 Nucleated RBC Auto Ql (Bld) 0.1 /100{WBC} 0-0.5 [facility] Platelet mean volume Auto (B ld) [Entitic vol]Ordered By: Sly Benson on 08-08-2022 Platelet mean volume (Bld) [Entitic vol] 7.5 fL 6.3-10.7 [facility] Platelets Auto (Bld) [#/Vol] Ordered By: Sly Benson on 08-08-2022 Platelets (Bld) [#/Vol] 216 10*3/uL 150-450 [facility] Protein [Mass/volume] in Ser um or PlasmaOrdered By: Sly Benson on 08-08-2022 Protein [Mass/Vol] 7.1 g/dL 6.1-7.9 [facility] RBC Auto (Bld) [#/Vol]Ordere d By: Sly Benson on 08-08-2022 RBC (Bld) [#/Vol] 4.98 10*6/uL 3.60-5.00 [facility] Random cortisol measurementO rdered By: Sly Benson on 08-08-2022 Cortisol [Mass/Vol] 11.8 ug/dL [facility] Comment on above: Reference range: AM 6 - 24 ug/dl PM <10 ug/dl Serum or plasma alanine castro otransferase measurement without P-5'-P (enzymatic activiOrdered By: Sly Benson on 08-08-2022 ALT No additional P-5'-P [Catalytic activity/Vol] 32 U/L 10-60 [facility] Serum or plasma albumin/glob ulin mass ratioOrdered By: Sly Benson on 08-08-2022 Albumin/Globulin [Mass ratio] 1.3 {ratio} [facility] Serum or plasma alkaline halle sphatase measurement (enzymatic activity/volume)Ordered By: Sly Benson on 08-08-2022 ALP [Catalytic activity/Vol] 99 U/L 32-92 [facility] Serum or plasma anion gap de terminationOrdered By: Sly Benson on 08-08-2022 Anion gap [Moles/Vol] 11.2 mmol/L 6.0-15.0 [facility] Serum or plasma aspartate am inotransferase measurement (enzymatic activity/volume)Ordered By: Sly Benson on 08-08-2022 AST [Catalytic activity/Vol] 34 U/L 10-42 [facility] Serum or plasma calcium diamond urement (mass/volume)Ordered By: Sly Benson on 08-08-2022 Calcium [Mass/Vol] 9.3 mg/dL 8.2-10.2 [facility] Serum or plasma chloride zora surement (moles/volume)Ordered By: Sly Benson on 08-08-2022 Chloride [Moles/Vol] 102 mmol/L 95-114 [facility] Serum or plasma glucose diamond urement (mass/volume)Ordered By: Sly Benson on 08-08-2022 Glucose [Mass/Vol] 101 mg/dL 70-100 [facility] Comment on above: ADA recommended refe rence rangeRandom Glucose Reference Range is dependent on time and content of last meal. Glucose of more than 200 mg/dL in a nonstressed, ambulatory subject supports the diagnosis of Diabetes Mellitus. Serum or plasma non-glucuron idated bilirubin measurement (mass/volume)Ordered By: Sly Benson on 08-08-2022 Bilirubin.indirect [Mass/Vol] TNP [facility] Comment on above: Test not performed Serum or plasma potassium me asurement (moles/volume)Ordered By: Sly Benson on 08-08-2022 Potassium [Moles/Vol] 3.3 mmol/L 3.5-5.1 [facility] Serum or plasma sodium measu rement (moles/volume)Ordered By: Sly Benson on 08-08-2022 Sodium [Moles/Vol] 139 mmol/L 136-146 [facility] Serum or plasma total biliru bin measurement (mass/volume)Ordered By: Sly Benson on 08-08-2022 Bilirubin [Mass/Vol] 0.7 mg/dL 0.3-1.2 [facility] Serum or plasma total carbon dioxide measurement (moles/volume)Ordered By: Sly Benson on 08-08-2022 CO2 [Moles/Vol] 29.1 mmol/L 22.0-30.0 [facility] Serum or plasma urea nitroge n measurement (mass/volume)Ordered By: Sly Benson on 08-08-2022 Urea nitrogen [Mass/Vol] 18 mg/dL 9-23 [facility] TSH DL <= 0.005 mIU/L QnOrde red By: Sly Benson on 08-08-2022 TSH Qn 2.80 m[IU]/L 0.45-5.33 [facility] Thyroxine (T4) free [Mass/vo lume] in Serum or PlasmaOrdered By: Sly Benson on 08-08-2022 Free T4 [Mass/Vol] 0.99 ng/dL 0.61-1.12 [facility] WBC Auto (Bld) [#/Vol]Ordere d By: Sly Benson on 08-08-2022 WBC (Bld) [#/Vol] 7.6 10*3/uL 3.8-11.6 [facility] ACTH, PLASMAon 07-22-2022 ACTH, Plasma 29.5 pg/mL Normal 7.2-63.3 [facility] Comment on above: Result Comment: ACTH reference interval for samples collected between 7 and 10 AM. Performed By: #### A CTHP #### [facility] [address] [address] [address] Alesia Meyers CORTISOLon 07-22-2022 Cortisol 10.0 ug/dL Normal [facility] Comment on above: Result Comment: Melvin isol AM 6.2 - 19.4 Cortisol PM 2.3 - 11.9 Performed By: #### T SH, CMP, LDH #### [facility] [address] [place] [address] Dr. Alesia Meyers CBC AUTO DIFFon 07-21-2022 BASO # 0.0 103/ul Normal 0.0-0.1 [facility] Comment on above: Performed By: #### T SH, CMP, LDH #### [facility] [address] [place] [address] Dr. Alesia Meyers Basophils/100 WBC (Bld) 0.6 % Normal 0.2-2.0 [facility] Comment on above: Performed By: #### T SH, CMP, LDH #### [facility] [address] [place] [address] Dr. Alesia Meyres EO # 0.1 103/ul Normal 0.0-0.7 [facility] Comment on above: Performed By: #### T SH, CMP, LDH #### [facility] [address] [place] [address] Dr. Alesia Meyers Eosinophils/100 WBC (Bld) 1.8 % Normal 0.9-7.0 [facility] Comment on above: Performed By: #### T SH, CMP, LDH #### [facility] [address] [place] [address] Dr. Alesia Meyers Erythrocyte distribution width (RBC) [Ratio] 13.2 % Normal 11.0-15.0 [facility] Comment on above: Performed By: #### T SH, CMP, LDH #### [facility] [address] [place] [address] Dr. Alesia Meyers Hematocrit (Bld) [Volume fraction] 40.4 % Normal 36.0-48.0 [facility] Comment on above: Performed By: #### T SH, CMP, LDH #### [facility] [address] [place] [address] Dr. Alesia Meyers Hemoglobin (Bld) [Mass/Vol] 14.1 g/dL Normal 12.0-16.0 [facility] Comment on above: Performed By: #### T SH, CMP, LDH #### [facility] [address] [address] [address] Alesia Meyers IG # 0.03 10e3/ul Normal 0.00-0.03 [facility] Comment on above: Performed By: #### T SH, CMP, LDH #### [facility] [address] [place] [address] Dr. Alesia Meyers IG % 0.4 % Normal 0.0-0.5 [facility] Comment on above: Performed By: #### T SH, CMP, LDH #### [facility] [address] [place] [address] Dr. Alesia Meyers LYMPH # 1.9 103/ul Normal 1.2-3.8 [facility] Comment on above: Performed By: #### T SH, CMP, LDH #### [facility] [address] [place] [address] Dr. Alesia Meyers Lymphocytes/100 WBC (Bld) 27.5 % Normal 20.5-60.0 [facility] Comment on above: Performed By: #### T SH, CMP, LDH #### [facility] [address] [place] [address] Dr. Alesia Meyers MANUAL DIFF REQ NO Normal [facility] Comment on above: Performed By: #### T SH, CMP, LDH #### [facility] [address] [place] [address] Dr. Alesia Meyers MCH (RBC) [Entitic mass] 28.4 pg Normal 26.7-34.0 [facility] Comment on above: Performed By: #### T SH, CMP, LDH #### [facility] [address] [place] [address] Dr. Alesia Meyers MCHC (RBC) [Mass/Vol] 34.9 g/dL Normal 29.9-35.2 [facility] Comment on above: Performed By: #### T SH, CMP, LDH #### [facility] [address] [place] [address] Dr. Alesia Meyers MCV (RBC) [Entitic vol] 81.5 fL Normal 81.0-99.0 [facility] Comment on above: Performed By: #### T SH, CMP, LDH #### [facility] [address] [place] [address] Dr. Alesia Meyers MONO # 0.3 103/ul Normal 0.3-0.8 [facility] Comment on above: Performed By: #### T SH, CMP, LDH #### [facility] [address] [place] [address] Dr. Alesia Meyers Monocytes/100 WBC (Bld) 4.9 % Normal 1.7-12.0 [facility] Comment on above: Performed By: #### T SH, CMP, LDH #### [facility] [address] [place] [address] Dr. Alesia Meyers NEUT # 4.4 103/ul Normal 1.4-6.5 [facility] Comment on above: Performed By: #### T SH, CMP, LDH #### [facility] [address] [place] [address] Dr. Alesia Meyers Neutrophils/100 WBC (Bld) 64.8 % Normal 43.0-75.0 [facility] Comment on above: Performed By: #### T SH, CMP, LDH #### [facility] [address] [place] [address] Dr. Alesia Meyers Platelet mean volume (Bld) [Entitic vol] 8.8 fL Critically low 9.5-13.5 [facility] Comment on above: Performed By: #### T SH, CMP, LDH #### [facility] [address] [place] [address] Dr. Alesia Meyers PLT 214 103/ul Normal 150-450 [facility] Comment on above: Performed By: #### T SH, CMP, LDH #### [facility] [address] [place] [address] Dr. Alesia Meyers RBC 4.96 106/ul Normal 4.20-5.40 [facility] Comment on above: Performed By: #### T SH, CMP, LDH #### [facility] [address] [place] [address] Dr. Alesia Meyers WBC 6.8 103/ul Normal 4.0-11.0 [facility] Comment on above: Performed By: #### T SH, CMP, LDH #### [facility] [address] [place] [address] Dr. Alesia Meyers FREE T4on 07-21-2022 Free T4 [Mass/Vol] 1.06 ng/dL Normal 0.76-1.46 [facility] Comment on above: Performed By: #### T SH, CMP, LDH #### [facility] [address] [place] [address] Dr. Alesia Meyers LDHon 07-21-2022 LDH 243 U/L Critically high 81-234 [facility] Comment on above: Performed By: #### T SH, CMP, LDH #### [facility] [address] [place] [address] Dr. Alesia Meyers LIPASEon 07-21-2022 Lipase [Catalytic activity/Vol] 73.0 U/L Normal 73.0-393.0 [facility] Comment on above: Performed By: #### T SH, CMP, LDH #### [facility] [address] [place] [address] Dr. Alesia Meyers LIVER PROFILEon 07-21-2022 Albumin [Mass/Vol] 3.5 g/dL Normal 3.4-5.0 [facility] Comment on above: Performed By: #### T SH, CMP, LDH #### [facility] [address] [place] [address] Dr. Alesia Meyers Albumin/Globulin [Mass ratio] 0.9 {ratio} Normal [facility] Comment on above: Performed By: #### T SH, CMP, LDH #### [facility] [address] [place] [address] Dr. Alesia Meyers ALP [Catalytic activity/Vol] 130 U/L Critically high 46-116 [facility] Comment on above: Performed By: #### T SH, CMP, LDH #### [facility] [address] [place] [address] Dr. Alesia Meyers ALT [Catalytic activity/Vol] 35 U/L Normal 14-59 [facility] Comment on above: Performed By: #### T SH, CMP, LDH #### [facility] [address] [place] [address] Dr. Alesia Meyers AST [Catalytic activity/Vol] 37 U/L Normal 15-37 [facility] Comment on above: Performed By: #### T SH, CMP, LDH #### [facility] [address] [place] [address] Dr. Alesia Meyers BILI, CONJUGATED 0.1 mg/dL Normal 0.0-0.2 [facility] Comment on above: Performed By: #### T SH, CMP, LDH #### [facility] [address] [place] [address] Dr. Alesia Meyers Bilirubin [Mass/Vol] 0.4 mg/dL Normal 0.2-1.0 [facility] Comment on above: Performed By: #### T SH, CMP, LDH #### [facility] [address] [place] [address] Dr. Alesia Meyers Globulin (S) [Mass/Vol] 3.8 g/dL Normal [facility] Comment on above: Performed By: #### T SH, CMP, LDH #### [facility] [address] [place] [address] Dr. Alesia Meyers Protein [Mass/Vol] 7.3 g/dL Normal 6.4-8.2 [facility] Comment on above: Performed By: #### T SH, CMP, LDH #### [facility] [address] [place] [address] Dr. Alesia Meyers PROF CHEM 8 (BAS METB)on Anion gap [Moles/Vol] 12.1 mmol/L Normal [facility] Comment on above: Performed By: #### T SH, CMP, LDH #### [facility] [address] [place] [address] Dr. Alesia Meyers Calcium [Mass/Vol] 9.2 mg/dL Normal 8.5-10.1 [facility] Comment on above: Performed By: #### T SH, CMP, LDH #### [facility] [address] [place] [address] Dr. Alesia Meyers Chloride [Moles/Vol] 102 mmol/L Normal 98-107 [facility] Comment on above: Performed By: #### T SH, CMP, LDH #### [facility] [address] [place] [address] [address] Alesia Meyers CO2 [Moles/Vol] 30.5 mmol/L Normal 21.0-32.0 [facility] Comment on above: Performed By: #### T SH, CMP, LDH #### [facility] [address] [address] [address] Alesia Meyers Creatinine [Mass/Vol] 0.87 mg/dL Normal 0.55-1.02 [facility] Comment on above: Performed By: #### T SH, CMP, LDH #### [facility] [address] [place] [address] [address] Alesia Meyers EGFR-AF [place] >60 Normal >=60 [facility] Comment on above: Performed By: #### T SH, CMP, LDH #### [facility] [address] [place] [address] [address] Alesia Meyers EGFR-NON AF [place] >60 Normal >=60 [facility] Comment on above: Performed By: #### T SH, CMP, LDH #### [facility] [address] [place] [address] [address] Alesia Meyers Glucose [Mass/Vol] 178 mg/dL Critically high 74-106 [facility] Comment on above: Performed By: #### T SH, CMP, LDH #### [facility] [address] [address] [address] Alesia Meyers Potassium [Moles/Vol] 3.6 mmol/L Normal 3.5-5.1 [facility] Comment on above: Performed By: #### T SH, CMP, LDH #### [facility] [address] [address] [address] Alesia Meyers Sodium [Moles/Vol] 141 mmol/L Normal 136-145 [facility] Comment on above: Performed By: #### T SH, CMP, LDH #### [facility] [address] [place] [address] [address] Alesia Meyers Urea nitrogen [Mass/Vol] 16.0 mg/dL Normal 7.0-18.0 [facility] Comment on above: Performed By: #### T SH, CMP, LDH #### [facility] [address] [place] [address] [address] Alesia Meyers Urea nitrogen/Creatinine [Mass ratio] 18.4 mg/mg Normal [facility] Comment on above: Performed By: #### T SH, CMP, LDH #### [facility] [address] [address] [address] Alesia Meyers TSHon 07-21-2022 TSH 2.383 uIU/mL Normal 0.358-3.74 0 [facility] Comment on above: Performed By: #### T SH, CMP, LDH #### [facility] [address] [place] [address] Dr. Alesia Meyers ACTH, PLASMAon 06-21-2022 ACTH, Plasma 30.4 pg/mL Normal 7.2-63.3 [facility] Comment on above: Result Comment: ACTH reference interval for samples collected between 7 and 10 AM. Performed By: #### T SH, CMP, LDH #### [facility] [address] [place] [address] Dr. Alesia Meyers CORTISOLon 06-21-2022 Cortisol 16.9 ug/dL Normal [facility] Comment on above: Result Comment: Melvin isol AM 6.2 - 19.4 Cortisol PM 2.3 - 11.9 Performed By: #### C ORTISO #### [facility] [address] [place] [address] Dr. Alesia Meyers CBC AUTO DIFFon 06-20-2022 BASO # 0.0 103/ul Normal 0.0-0.1 [facility] Comment on above: Performed By: #### T SH, CMP, LDH #### [facility] [address] [place] [address] Dr. Alesia Meeyrs Basophils/100 WBC (Bld) 0.5 % Normal 0.2-2.0 [facility] Comment on above: Performed By: #### T SH, CMP, LDH #### [facility] [address] [place] [address] Dr. Alesia Meyers EO # 0.1 103/ul Normal 0.0-0.7 [facility] Comment on above: Performed By: #### T SH, CMP, LDH #### [facility] [address] [place] [address] Dr. Alesia Meyers Eosinophils/100 WBC (Bld) 2.1 % Normal 0.9-7.0 [facility] Comment on above: Performed By: #### T SH, CMP, LDH #### [facility] [address] [place] [address] Dr. Alesia Meyers Erythrocyte distribution width (RBC) [Ratio] 13.3 % Normal 11.0-15.0 [facility] Comment on above: Performed By: #### T SH, CMP, LDH #### [facility] [address] [place] [address] Dr. Alesia Meyers Hematocrit (Bld) [Volume fraction] 40.2 % Normal 36.0-48.0 [facility] Comment on above: Performed By: #### T SH, CMP, LDH #### [facility] [address] [place] [address] Dr. Alesia Meyers Hemoglobin (Bld) [Mass/Vol] 13.5 g/dL Normal 12.0-16.0 [facility] Comment on above: Performed By: #### T SH, CMP, LDH #### [facility] [address] [place] [address] Dr. Alesia Meyers IG # 0.02 10e3/ul Normal 0.00-0.03 [facility] Comment on above: Performed By: #### T SH, CMP, LDH #### [facility] [address] [place] [address] Dr. Alesia Meyers IG % 0.3 % Normal 0.0-0.5 [facility] Comment on above: Performed By: #### T SH, CMP, LDH #### [facility] [address] [place] [address] Dr. Alesia Meyers LYMPH # 2.3 103/ul Normal 1.2-3.8 [facility] Comment on above: Performed By: #### T SH, CMP, LDH #### [facility] [address] [place] [address] Dr. Alesia Meyers Lymphocytes/100 WBC (Bld) 35.0 % Normal 20.5-60.0 [facility] Comment on above: Performed By: #### T SH, CMP, LDH #### [facility] [address] [place] [address] Dr. Alesia Meyers MANUAL DIFF REQ NO Normal [facility] Comment on above: Performed By: #### T SH, CMP, LDH #### [facility] [address] [place] [address] Dr. Alesia Meyers MCH (RBC) [Entitic mass] 29.3 pg Normal 26.7-34.0 [facility] Comment on above: Performed By: #### T SH, CMP, LDH #### [facility] [address] [place] [address] Dr. Alesia Meyers MCHC (RBC) [Mass/Vol] 33.6 g/dL Normal 29.9-35.2 [facility] Comment on above: Performed By: #### T SH, CMP, LDH #### [facility] [address] [place] [address] Dr. Alesia Meyers MCV (RBC) [Entitic vol] 87.2 fL Normal 81.0-99.0 [facility] Comment on above: Performed By: #### T SH, CMP, LDH #### [facility] [address] [place] [address] Dr. Alesia Meyers MONO # 0.6 103/ul Normal 0.3-0.8 [facility] Comment on above: Performed By: #### T SH, CMP, LDH #### [facility] [address] [place] [address] Dr. Alesia Meyers Monocytes/100 WBC (Bld) 8.8 % Normal 1.7-12.0 [facility] Comment on above: Performed By: #### T SH, CMP, LDH #### [facility] [address] [place] [address] [address] Alesia Meyers NEUT # 3.5 103/ul Normal 1.4-6.5 [facility] Comment on above: Performed By: #### T SH, CMP, LDH #### [facility] [address] [place] [address] Dr. Alesia Meyers Neutrophils/100 WBC (Bld) 53.3 % Normal 43.0-75.0 [facility] Comment on above: Performed By: #### T SH, CMP, LDH #### [facility] [address] [place] [address] Dr. Alesia Meyers Platelet mean volume (Bld) [Entitic vol] 9.0 fL Critically low 9.5-13.5 [facility] Comment on above: Performed By: #### T SH, CMP, LDH #### [facility] [address] [place] [address] Dr. Alesia Meyers PLT 230 103/ul Normal 150-450 [facility] Comment on above: Performed By: #### T SH, CMP, LDH #### [facility] [address] [place] [address] Dr. Alesia Meyers RBC 4.61 106/ul Normal 4.20-5.40 [facility] Comment on above: Performed By: #### T SH, CMP, LDH #### [facility] [address] [place] [address] Dr. Alesia Meyers WBC 6.6 103/ul Normal 4.0-11.0 [facility] Comment on above: Performed By: #### T SH, CMP, LDH #### [facility] [address] [place] [address] Dr. Alesia Meyers FREE T4on 06-20-2022 Free T4 [Mass/Vol] 1.15 ng/dL Normal 0.76-1.46 [facility] Comment on above: Performed By: #### T SH, CMP, LDH #### [facility] [address] [place] [address] Dr. Alesia Meyers LDHon 06-20-2022 LDH 224 U/L Normal 81-234 [facility] Comment on above: Performed By: #### T SH, CMP, LDH #### [facility] [address] [place] [address] [address] Alesia Meyers LIPASEon 06-20-2022 Lipase [Catalytic activity/Vol] 78.0 U/L Normal 73.0-393.0 [facility] Comment on above: Performed By: #### T SH, CMP, LDH #### [facility] [address] [place] [address] [address] Alesia Meyers LIPID PROFILEon 06-20-2022 CHOL-HDL RATIO NORM SEE BELOW Normal [facility] Comment on above: Result Comment: 3.3 - 4.4 LOW RISK 4.4 - 7.1 AVERAGE RISK 7.1 - 11.0 MODERATE RISK >11.0 HIGH RISK Performed By: #### T SH, CMP, LDH #### [facility] [address] [place] [address] [address] Alesia Meyers Cholesterol [Mass/Vol] 153 mg/dL Normal <=200 [facility] Comment on above: Performed By: #### T SH, CMP, LDH #### [facility] [address] [place] [address] [address] Alesia Meyers Cholesterol in HDL [Mass/Vol] 80 mg/dL Critically high 40-60 [facility] Comment on above: Performed By: #### T SH, CMP, LDH #### [facility] [address] [place] [address] [address] Alesia Meyers Cholesterol in LDL [Mass/Vol] 52.8 mg/dL Normal [facility] Comment on above: Performed By: #### T SH, CMP, LDH #### [facility] [address] [place] [address] [address] Alesia Meyers Cholesterol.total/Chol esterol in HDL [Mass ratio] 1.9 {ratio} Normal [facility] Comment on above: Performed By: #### T SH, CMP, LDH #### [facility] [address] [place] [address] [address] Alesia Meyers HDL NORMAL > or = 60 mg/dl - LO W CARDIOVASCULAR RISK <40 mg/dl - HIGH CARDIOVASCULAR RISK Normal [facility] Comment on above: Performed By: #### T SH, CMP, LDH #### [facility] [address] [place] [address] [address] Alesia Meyers LDL CALC NORMAL SEE BELOW Normal [facility] Comment on above: Result Comment: <100 mg/dl OPTIMAL 100 - 129 mg/dl NEAR OR ABOVE OPTIMAL 130 - 159 mg/dl BORDERLINE HIGH 160 - 189 mg/dl HIGH >190 mg/dl VERY HIGH Performed By: #### T SH, CMP, LDH #### [facility] [address] [place] [address] [address] Alesia Meyers Triglyceride [Mass/Vol] 101 mg/dL Normal <=150 [facility] Comment on above: Performed By: #### T SH, CMP, LDH #### [facility] [address] [place] [address] [address] Alesia Meyers VLDL CALC 20.2 mg/dL Normal [facility] Comment on above: Performed By: #### T SH, CMP, LDH #### [facility] [address] [place] [address] [address] Alesia Meyers LIVER PROFILEon 06-20-2022 Albumin [Mass/Vol] 3.5 g/dL Normal 3.4-5.0 [facility] Comment on above: Performed By: #### T SH, CMP, LDH #### [facility] [address] [place] [address] [address] Alesia Meyers Albumin/Globulin [Mass ratio] 0.9 {ratio} Normal [facility] Comment on above: Performed By: #### T SH, CMP, LDH #### [facility] [address] [place] [address] [address] Alesia Meyers ALP [Catalytic activity/Vol] 109 U/L Normal 46-116 [facility] Comment on above: Performed By: #### T SH, CMP, LDH #### [facility] [address] [place] [address] [address] Alesia Meyers ALT [Catalytic activity/Vol] 39 U/L Normal 14-59 [facility] Comment on above: Performed By: #### T SH, CMP, LDH #### [facility] [address] [place] [address] Dr. Alesia Meyers AST [Catalytic activity/Vol] 34 U/L Normal 15-37 [facility] Comment on above: Performed By: #### T SH, CMP, LDH #### [facility] [address] [place] [address] Dr. Alesia Meyers BILI, CONJUGATED 0.1 mg/dL Normal 0.0-0.2 [facility] Comment on above: Performed By: #### T SH, CMP, LDH #### [facility] [address] [place] [address] Dr. Aleisa Meyers Bilirubin [Mass/Vol] 0.4 mg/dL Normal 0.2-1.0 [facility] Comment on above: Performed By: #### T SH, CMP, LDH #### [facility] [address] [place] [address] Dr. Alesia Meyers Globulin (S) [Mass/Vol] 3.7 g/dL Normal [facility] Comment on above: Performed By: #### T SH, CMP, LDH #### [facility] [address] [place] [address] Dr. Aleisa Meyers Protein [Mass/Vol] 7.2 g/dL Normal 6.4-8.2 [facility] Comment on above: Performed By: #### T SH, CMP, LDH #### [facility] [address] [place] [address] Dr. Alesia Meyers PROF CHEM 8 (BAS METB)on Anion gap [Moles/Vol] 11.4 mmol/L Normal [facility] Comment on above: Performed By: #### T SH, CMP, LDH #### [facility] [address] [place] [address] Dr. Alesia Meyers Calcium [Mass/Vol] 9.1 mg/dL Normal 8.5-10.1 [facility] Comment on above: Performed By: #### T SH, CMP, LDH #### [facility] [address] [place] [address] Dr. Alesia Meyers Chloride [Moles/Vol] 103 mmol/L Normal 98-107 [facility] Comment on above: Performed By: #### T SH, CMP, LDH #### [facility] [address] [address] [address] Alesia Meyers CO2 [Moles/Vol] 31.2 mmol/L Normal 21.0-32.0 [facility] Comment on above: Performed By: #### T SH, CMP, LDH #### [facility] [address] [address] [address] Alesia Meyers Creatinine [Mass/Vol] 0.90 mg/dL Normal 0.55-1.02 [facility] Comment on above: Performed By: #### T SH, CMP, LDH #### [facility] [address] [place] [address] Dr. Alesia Meyers EGFR-AF [place] >60 Normal >=60 [facility] Comment on above: Performed By: #### T SH, CMP, LDH #### [facility] [address] [place] [address] [address] Alesia Meyers EGFR-NON AF [place] >60 Normal >=60 [facility] Comment on above: Performed By: #### T SH, CMP, LDH #### [facility] [address] [place] [address] Dr. Alesia Meyers Glucose [Mass/Vol] 105 mg/dL Normal 74-106 [facility] Comment on above: Performed By: #### T SH, CMP, LDH #### [facility] [address] [address] [address] Alesia Meyers Potassium [Moles/Vol] 3.6 mmol/L Normal 3.5-5.1 [facility] Comment on above: Performed By: #### T SH, CMP, LDH #### [facility] [address] [place] [address] [address] Alesia Meyers Sodium [Moles/Vol] 142 mmol/L Normal 136-145 [facility] Comment on above: Performed By: #### T SH, CMP, LDH #### [facility] [address] [place] [address] Dr. Alesia Meyers Urea nitrogen [Mass/Vol] 22.0 mg/dL Critically high 7.0-18.0 [facility] Comment on above: Performed By: #### T CURTIS CMP, LDH #### [facility] [address] [place] [address] Dr. Alesia Meyers Urea nitrogen/Creatinine [Mass ratio] 24.4 mg/mg Normal [facility] Comment on above: Performed By: #### T CURTIS, CMP, LDH #### [facility] [address] [place] [address] Dr. Alesia Meyers TSHon 06-20-2022 TSH 3.302 uIU/mL Normal 0.358-3.74 0 [facility] Comment on above: Performed By: #### T CURTIS CMP, LDH #### [facility] [address] [place] [address] Dr. Alesia Meyers ACTH, PLASMAon 05-31-2022 ACTH, Plasma 28.5 pg/mL Normal 7.2-63.3 [facility] Comment on above: Result Comment: ACTH reference interval for samples collected between 7 and 10 AM. Performed By: #### T CURTIS CMP, LDH #### [facility] [address] [place] [address] Dr. Alesia Meyers CORTISOLon 05-31-2022 Cortisol 17.2 ug/dL Normal [facility] Comment on above: Result Comment: Melvin isol AM 6.2 - 19.4 Cortisol PM 2.3 - 11.9 Performed By: #### T CURTIS, CMP, LDH #### [facility] [address] [place] [address] Dr. Alesia Meyers CBC AUTO DIFFon 05-30-2022 BASO # 0.0 103/ul Normal 0.0-0.1 [facility] Comment on above: Performed By: #### T CURTIS, CMP, LDH #### [facility] [address] [place] [address] Dr. Alesia Meyers Basophils/100 WBC (Bld) 0.4 % Normal 0.2-2.0 [facility] Comment on above: Performed By: #### T CURTIS, CMP, LDH #### [facility] [address] [place] [address] Dr. Alesia Meyers EO # 0.1 103/ul Normal 0.0-0.7 [facility] Comment on above: Performed By: #### T SH, CMP, LDH #### [facility] [address] [place] [address] Dr. Alesia Meyers Eosinophils/100 WBC (Bld) 2.1 % Normal 0.9-7.0 [facility] Comment on above: Performed By: #### T SH, CMP, LDH #### [facility] [address] [place] [address] Dr. Alesia Meyers Erythrocyte distribution width (RBC) [Ratio] 12.9 % Normal 11.0-15.0 [facility] Comment on above: Performed By: #### T SH, CMP, LDH #### [facility] [address] [place] [address] Dr. Alesia Meyers Hematocrit (Bld) [Volume fraction] 41.0 % Normal 36.0-48.0 [facility] Comment on above: Performed By: #### T SH, CMP, LDH #### [facility] [address] [place] [address] Dr. Alesia Meyers Hemoglobin (Bld) [Mass/Vol] 13.5 g/dL Normal 12.0-16.0 [facility] Comment on above: Performed By: #### T SH, CMP, LDH #### [facility] [address] [place] [address] Dr. Alesia Meyers IG # 0.02 10e3/ul Normal 0.00-0.03 [facility] Comment on above: Performed By: #### T SH, CMP, LDH #### [facility] [address] [place] [address] Dr. Alesia Meyers IG % 0.3 % Normal 0.0-0.5 [facility] Comment on above: Performed By: #### T SH, CMP, LDH #### [facility] [address] [place] [address] Dr. Alesia Meyers LYMPH # 2.1 103/ul Normal 1.2-3.8 [facility] Comment on above: Performed By: #### T SH, CMP, LDH #### [facility] [address] [place] [address] Dr. Alesia Meyers Lymphocytes/100 WBC (Bld) 30.5 % Normal 20.5-60.0 [facility] Comment on above: Performed By: #### T SH, CMP, LDH #### [facility] [address] [place] [address] Dr. Alesia Meyers MANUAL DIFF REQ NO Normal [facility] Comment on above: Performed By: #### T SH, CMP, LDH #### [facility] [address] [place] [address] Dr. Alesia Meyers MCH (RBC) [Entitic mass] 28.6 pg Normal 26.7-34.0 [facility] Comment on above: Performed By: #### T SH, CMP, LDH #### [facility] [address] [place] [address] Dr. Alesia Meyers MCHC (RBC) [Mass/Vol] 32.9 g/dL Normal 29.9-35.2 [facility] Comment on above: Performed By: #### T SH, CMP, LDH #### [facility] [address] [place] [address] Dr. Alesia Meyers MCV (RBC) [Entitic vol] 86.9 fL Normal 81.0-99.0 [facility] Comment on above: Performed By: #### T SH, CMP, LDH #### [facility] [address] [place] [address] Dr. Alesia Meyers MONO # 0.5 103/ul Normal 0.3-0.8 [facility] Comment on above: Performed By: #### T SH, CMP, LDH #### [facility] [address] [place] [address] Dr. Alesia Meyers Monocytes/100 WBC (Bld) 7.8 % Normal 1.7-12.0 [facility] Comment on above: Performed By: #### T SH, CMP, LDH #### [facility] [address] [place] [address] Dr. Alesia Meyers NEUT # 4.0 103/ul Normal 1.4-6.5 [facility] Comment on above: Performed By: #### T SH, CMP, LDH #### [facility] [address] [place] [address] Dr. Alesia Meyers Neutrophils/100 WBC (Bld) 58.9 % Normal 43.0-75.0 [facility] Comment on above: Performed By: #### T SH, CMP, LDH #### [facility] [address] [place] [address] Dr. Alesia Meyers Platelet mean volume (Bld) [Entitic vol] 9.0 fL Critically low 9.5-13.5 [facility] Comment on above: Performed By: #### T SH, CMP, LDH #### [facility] [address] [place] [address] Dr. Alesia Meyers PLT 224 103/ul Normal 150-450 [facility] Comment on above: Performed By: #### T SH, CMP, LDH #### [facility] [address] [place] [address] Dr. Alesia Meyers RBC 4.72 106/ul Normal 4.20-5.40 [facility] Comment on above: Performed By: #### T SH, CMP, LDH #### [facility] [address] [place] [address] Dr. Alesia Meyers WBC 6.8 103/ul Normal 4.0-11.0 [facility] Comment on above: Performed By: #### T SH, CMP, LDH #### [facility] [address] [place] [address] Dr. Alesia Meyers FREE T4on 05-30-2022 Free T4 [Mass/Vol] 1.19 ng/dL Normal 0.76-1.46 [facility] Comment on above: Performed By: #### T SH, CMP, LDH #### [facility] [address] [place] [address] Dr. Alesia Meyers LDHon 05-30-2022 LDH 231 U/L Normal 81-234 [facility] Comment on above: Performed By: #### F T4 #### [facility] [address] [place] [address] Dr. Alesia Meyers LIPASEon 05-30-2022 Lipase [Catalytic activity/Vol] 76.0 U/L Normal 73.0-393.0 [facility] Comment on above: Performed By: #### F T4 #### [facility] [address] [place] [address] Dr. Alesia Meyers LIVER PROFILEon 05-30-2022 Albumin [Mass/Vol] 3.5 g/dL Normal 3.4-5.0 [facility] Comment on above: Performed By: #### F T4 #### [facility] [address] [place] [address] Dr. Alesia Meyers Albumin/Globulin [Mass ratio] 0.9 {ratio} Normal [facility] Comment on above: Performed By: #### F T4 #### [facility] [address] [place] [address] Dr. Alesia Meyers ALP [Catalytic activity/Vol] 128 U/L Critically high 46-116 [facility] Comment on above: Performed By: #### F T4 #### [facility] [address] [place] [address] Dr. Alesia Meyers ALT [Catalytic activity/Vol] 35 U/L Normal 14-59 [facility] Comment on above: Performed By: #### F T4 #### [facility] [address] [place] [address] Dr. Alesia Meyers AST [Catalytic activity/Vol] 25 U/L Normal 15-37 [facility] Comment on above: Performed By: #### F T4 #### [facility] [address] [place] [address] Dr. Alesia Meyers BILI, CONJUGATED 0.1 mg/dL Normal 0.0-0.2 [facility] Comment on above: Performed By: #### F T4 #### [facility] [address] [place] [address] Dr. Alesia Meyesr Bilirubin [Mass/Vol] 0.4 mg/dL Normal 0.2-1.0 [facility] Comment on above: Performed By: #### F T4 #### [facility] [address] [address] [address] Alesia Meyers Globulin (S) [Mass/Vol] 3.7 g/dL Normal [facility] Comment on above: Performed By: #### F T4 #### [facility] [address] [place] [address] Dr. Alesia Meyers Protein [Mass/Vol] 7.2 g/dL Normal 6.4-8.2 [facility] Comment on above: Performed By: #### F T4 #### [facility] [address] [place] [address] Dr. Alesia Meyers PROF CHEM 8 (BAS METB)on Anion gap [Moles/Vol] 7.3 mmol/L Normal [facility] Comment on above: Performed By: #### F T4 #### [facility] [address] [place] [address] Dr. Alesia Meyers Calcium [Mass/Vol] 9.0 mg/dL Normal 8.5-10.1 [facility] Comment on above: Performed By: #### F T4 #### [facility] [address] [place] [address] Dr. Alesia Meyers Chloride [Moles/Vol] 102 mmol/L Normal 98-107 [facility] Comment on above: Performed By: #### F T4 #### [facility] [address] [place] [address] Dr. Alesia Meyers CO2 [Moles/Vol] 32.3 mmol/L Critically high 21.0-32.0 [facility] Comment on above: Performed By: #### F T4 #### [facility] [address] [place] [address] Dr. Alesia Meyers Creatinine [Mass/Vol] 0.94 mg/dL Normal 0.55-1.02 [facility] Comment on above: Performed By: #### F T4 #### [facility] [address] [place] [address] Dr. Alesia Meyers EGFR-AF [place] >60 Normal >=60 [facility] Comment on above: Performed By: #### F T4 #### [facility] [address] [address] [address] Alesia Meyers EGFR-NON AF [place] 58 mL/min/1.73m2 Critically low >=60 [facility] Comment on above: Performed By: #### F T4 #### [facility] [address] [address] [address] Alesia Meyers Glucose [Mass/Vol] 108 mg/dL Critically high 74-106 [facility] Comment on above: Performed By: #### F T4 #### [facility] [address] [address] [address] Alesia Meyers Potassium [Moles/Vol] 3.6 mmol/L Normal 3.5-5.1 [facility] Comment on above: Performed By: #### F T4 #### [facility] [address] [address] [address] Alesia Meyers Sodium [Moles/Vol] 138 mmol/L Normal 136-145 [facility] Comment on above: Performed By: #### F T4 #### [facility] [address] [address] [address] Alesia Meyers Urea nitrogen [Mass/Vol] 24.0 mg/dL Critically high 7.0-18.0 [facility] Comment on above: Performed By: #### F T4 #### [facility] [address] [address] [address] Alesia Meyers Urea nitrogen/Creatinine [Mass ratio] 25.5 mg/mg Normal [facility] Comment on above: Performed By: #### F T4 #### [facility] [address] [address] [address] Alesia Meyers TSHon 05-30-2022 TSH 2.605 uIU/mL Normal 0.358-3.74 0 [facility] Comment on above: Performed By: #### F T4 #### [facility] [address] [address] [address] Alesia Meyers ACTH, PLASMAon 05-14-2022 ACTH, Plasma 17.0 pg/mL Normal 7.2-63.3 [facility] Comment on above: Result Comment: ACTH reference interval for samples collected between 7 and 10 AM. Performed By: #### A CTHP #### [facility] [address] [address] [address] Alesia Meyers ACTH, PLASMAon 05-12-2022 ACTH, Plasma WRORD Normal [facility] Comment on above: Result Comment: Test not performed. The required specimen for the test ordered was not received. received refrigerate plasma edta contacted Sheyla at your facility on 05-12-2022 ACTH reference interval for samples collected between 7 and 10 AM. Performed By: #### F T4 #### [facility] [address] [place], [place] [address] Dr. Alesia Meyers Albumin [Mass/volume] in Ser um or PlasmaOrdered By: Sly Benson on 05-12-2022 Albumin [Mass/Vol] 3.5 g/dL 3.2-5.5 [facility] Direct bilirubin measurement Ordered By: Sly Benson on 05-12-2022 Bilirubin.direct [Mass/Vol] mg/dL 0.0-0.4 [facility] Globulin Calc (S) [Mass/Vol] Ordered By: Sly Benson on 05-12-2022 Globulin (S) [Mass/Vol] 3.0 g/dL [facility] Laboratory - Chemistry and C hemistry - challengeOrdered By: Sly Benson on 05-12-2022 Lipase [Catalytic activity/Vol] 26.0 U/L 22-51 [facility] Lactate dehydrogenase measur ement (enzymatic activity/volume)Ordered By: Sly Benson on 05-12-2022 LDH (Unsp spec) [Catalytic activity/Vol] 199 U/L 45-190 [facility] No Panel InformationOrdered By: Sly Benson on 05-12-2022 Adrenocorticotropic Hormone 243.0 pg/mL 7.2-63.3 [facility] Comment on above: ACTH reference inter jamel for samples collected between 7 and10 AM.Performed at: [facility] [employer] [id number] Director: Coleman Lacy PhD, Phone: [phone] Protein [Mass/volume] in Ser um or PlasmaOrdered By: Sly Benson on 05-12-2022 Protein [Mass/Vol] 6.5 g/dL 6.1-7.9 [facility] Random cortisol measurementO rdered By: Sly Benson on 05-12-2022 Cortisol [Mass/Vol] 14.6 ug/dL [facility] Comment on above: Reference range: AM 6 - 24 ug/dl PM <10 ug/dl Serum or plasma alanine castro otransferase measurement without P-5'-P (enzymatic activiOrdered By: Sly Benson on 05-12-2022 ALT No additional P-5'-P [Catalytic activity/Vol] 31 U/L [facility] Serum or plasma albumin/glob ulin mass ratioOrdered By: Sly Benson on 05-12-2022 Albumin/Globulin [Mass ratio] 1.2 {ratio} [facility] Serum or plasma alkaline halle sphatase measurement (enzymatic activity/volume)Ordered By: Sly Benson on 05-12-2022 ALP [Catalytic activity/Vol] 112 U/L [facility] Serum or plasma aspartate am inotransferase measurement (enzymatic activity/volume)Ordered By: Sly Benson on 05-12-2022 AST [Catalytic activity/Vol] 33 U/L [facility] Serum or plasma non-glucuron idated bilirubin measurement (mass/volume)Ordered By: Sly Benson on 05-12-2022 Bilirubin.indirect [Mass/Vol] TNP [facility] Comment on above: Test not performed Serum or plasma total biliru bin measurement (mass/volume)Ordered By: Sly Benson on 05-12-2022 Bilirubin [Mass/Vol] 0.8 mg/dL 0.3-1.2 [facility] Thyroxine (T4) free [Mass/vo lume] in Serum or PlasmaOrdered By: Sly Benson on 05-12-2022 Free T4 [Mass/Vol] 1.17 ng/dL 0.61-1.12 [facility] CORTISOLon 05-11-2022 Cortisol 15.4 ug/dL Normal [facility] Comment on above: Result Comment: Melvin isol AM 6.2 - 19.4 Cortisol PM 2.3 - 11.9 Performed By: #### T SH, CMP, LDH #### [facility] [address] [place] [address] Dr. Alesia Meyers CBC AUTO DIFFon 05-10-2022 BASO # 0.0 103/ul Normal 0.0-0.1 [facility] Comment on above: Performed By: #### C BC #### [facility] [address] [place] [address] Dr. Alesia Meyers Basophils/100 WBC (Bld) 0.3 % Normal 0.2-2.0 [facility] Comment on above: Performed By: #### C BC #### [facility] [address] [place] [address] Dr. Alesia Meyers EO # 0.2 103/ul Normal 0.0-0.7 [facility] Comment on above: Performed By: #### C BC #### [facility] [address] [place] [address] Dr. Alesia Meyers Eosinophils/100 WBC (Bld) 2.5 % Normal 0.9-7.0 [facility] Comment on above: Performed By: #### C BC #### [facility] [address] [place] [address] Dr. Alesia Meyers Erythrocyte distribution width (RBC) [Ratio] 13.2 % Normal 11.0-15.0 [facility] Comment on above: Performed By: #### C BC #### [facility] [address] [place] [address] Dr. Alesia Meyers Hematocrit (Bld) [Volume fraction] 39.1 % Normal 36.0-48.0 [facility] Comment on above: Performed By: #### C BC #### [facility] [address] [place] [address] Dr. Alesia Meyers Hemoglobin (Bld) [Mass/Vol] 12.9 g/dL Normal 12.0-16.0 [facility] Comment on above: Performed By: #### C BC #### [facility] [address] [place] [address] Dr. Alesia Meyers IG # 0.01 10e3/ul Normal 0.00-0.03 [facility] Comment on above: Performed By: #### C BC #### [facility] [address] [place] [address] Dr. Alesia Meyers IG % 0.2 % Normal 0.0-0.5 [facility] Comment on above: Performed By: #### C BC #### [facility] [address] [place] [address] Dr. Alesia Meyers LYMPH # 1.9 103/ul Normal 1.2-3.8 [facility] Comment on above: Performed By: #### C BC #### [facility] [address] [place] [address] Dr. Alesia Meyers Lymphocytes/100 WBC (Bld) 32.2 % Normal 20.5-60.0 [facility] Comment on above: Performed By: #### C BC #### [facility] [address] [place] [address] Dr. Alesia Meyers MANUAL DIFF REQ NO Normal [facility] Comment on above: Performed By: #### C BC #### [facility] [address] [place] [address] Dr. Alesia Meyers MCH (RBC) [Entitic mass] 29.0 pg Normal 26.7-34.0 [facility] Comment on above: Performed By: #### C BC #### [facility] [address] [place] [address] Dr. Alesia Meyers MCHC (RBC) [Mass/Vol] 33.0 g/dL Normal 29.9-35.2 [facility] Comment on above: Performed By: #### C BC #### [facility] [address] [place] [address] Dr. Alesia Meyers MCV (RBC) [Entitic vol] 87.9 fL Normal 81.0-99.0 [facility] Comment on above: Performed By: #### C BC #### [facility] [address] [place] [address] Dr. Alesia Meyers MONO # 0.5 103/ul Normal 0.3-0.8 [facility] Comment on above: Performed By: #### C BC #### [facility] [address] [place] [address] Dr. Alesia Meyers Monocytes/100 WBC (Bld) 8.5 % Normal 1.7-12.0 [facility] Comment on above: Performed By: #### C BC #### [facility] [address] [place] [address] Dr. Alesia Meyers NEUT # 3.3 103/ul Normal 1.4-6.5 [facility] Comment on above: Performed By: #### C BC #### [facility] [address] [place] [address] Dr. Alesia Meyers Neutrophils/100 WBC (Bld) 56.3 % Normal 43.0-75.0 [facility] Comment on above: Performed By: #### C BC #### [facility] [address] [place] [address] Dr. Alesia Meyers Platelet mean volume (Bld) [Entitic vol] 9.6 fL Normal 9.5-13.5 [facility] Comment on above: Performed By: #### C BC #### [facility] [address] [place] [address] Dr. Alesia Meyers PLT 210 103/ul Normal 150-450 [facility] Comment on above: Performed By: #### C BC #### [facility] [address] [place] [address] Dr. Alesia Meyers RBC 4.45 106/ul Normal 4.20-5.40 [facility] Comment on above: Performed By: #### C BC #### [facility] [address] [place] [address] Dr. Alesia Meyers WBC 5.9 103/ul Normal 4.0-11.0 [facility] Comment on above: Performed By: #### C BC #### [facility] [address] [place] [address] Dr. Alesia Meyers FREE T4on 05-10-2022 Free T4 [Mass/Vol] 1.19 ng/dL Normal 0.76-1.46 [facility] Comment on above: Performed By: #### F T4 #### [facility] [address] [place] [address] Dr. Alesia Meyers LDHon 05-10-2022 LDH 252 U/L Critically high 81-234 [facility] Comment on above: Performed By: #### T SH, CMP, LDH #### [facility] [address] [place] [address] Dr. Alesia Meyers LIPASEon 05-10-2022 Lipase [Catalytic activity/Vol] 70.0 U/L Critically low 73.0-393.0 [facility] Comment on above: Performed By: #### T SH, CMP, LDH #### [facility] [address] [place] [address] Dr. Alesia Meyers LIVER PROFILEon 05-10-2022 Albumin [Mass/Vol] 3.3 g/dL Critically low 3.4-5.0 [facility] Comment on above: Performed By: #### T SH, CMP, LDH #### [facility] [address] [place] [address] Dr. Alesia Meyers Albumin/Globulin [Mass ratio] 0.9 {ratio} Normal [facility] Comment on above: Performed By: #### T SH, CMP, LDH #### [facility] [address] [place] [address] Dr. Alesia Meyers ALP [Catalytic activity/Vol] 129 U/L Critically high 46-116 [facility] Comment on above: Performed By: #### T SH, CMP, LDH #### [facility] [address] [place] [address] Dr. Alesia Meyers ALT [Catalytic activity/Vol] 35 U/L Normal 14-59 [facility] Comment on above: Performed By: #### T SH, CMP, LDH #### [facility] [address] [place] [address] Dr. Alesia Meyers AST [Catalytic activity/Vol] 36 U/L Normal 15-37 [facility] Comment on above: Performed By: #### T SH, CMP, LDH #### [facility] [address] [place] [address] Dr. Alesia Meyers BILI, CONJUGATED 0.1 mg/dL Normal 0.0-0.2 [facility] Comment on above: Performed By: #### T SH, CMP, LDH #### [facility] [address] [place] [address] Dr. Alesia Meyers Bilirubin [Mass/Vol] 0.4 mg/dL Normal 0.2-1.0 [facility] Comment on above: Performed By: #### T SH, CMP, LDH #### [facility] [address] [place] [address] Dr. Alesia Meyers Globulin (S) [Mass/Vol] 3.7 g/dL Normal [facility] Comment on above: Performed By: #### T SH, CMP, LDH #### [facility] [address] [place] [address] Dr. Alesia Meyers Protein [Mass/Vol] 7.0 g/dL Normal 6.4-8.2 [facility] Comment on above: Performed By: #### T SH, CMP, LDH #### [facility] [address] [place] [address] Dr. Alesia Meyers PROF CHEM 8 (BAS METB)on Anion gap [Moles/Vol] 11.7 mmol/L Normal [facility] Comment on above: Performed By: #### T SH, CMP, LDH #### [facility] [address] [place] [address] Dr. Alesia Meyers Calcium [Mass/Vol] 8.9 mg/dL Normal 8.5-10.1 [facility] Comment on above: Performed By: #### T SH, CMP, LDH #### [facility] [address] [place] [address] Dr. Alesia Meyers Chloride [Moles/Vol] 104 mmol/L Normal 98-107 [facility] Comment on above: Performed By: #### T SH, CMP, LDH #### [facility] [address] [place] [address] Dr. Alesia Meyers CO2 [Moles/Vol] 29.3 mmol/L Normal 21.0-32.0 [facility] Comment on above: Performed By: #### T SH, CMP, LDH #### [facility] [address] [address] [address] Alesia Meyers Creatinine [Mass/Vol] 0.84 mg/dL Normal 0.55-1.02 [facility] Comment on above: Performed By: #### T SH, CMP, LDH #### [facility] [address] [address] [address] Alesia Meyers EGFR-AF [place] >60 Normal >=60 [facility] Comment on above: Performed By: #### T SH, CMP, LDH #### [facility] [address] [address] [address] Alesia Meyers EGFR-NON AF [place] >60 Normal >=60 [facility] Comment on above: Performed By: #### T SH, CMP, LDH #### [facility] [address] [address] [address] Alesia Meyers Glucose [Mass/Vol] 109 mg/dL Critically high 74-106 [facility] Comment on above: Performed By: #### T SH, CMP, LDH #### [facility] [address] [address] [address] Alesia Meyers Potassium [Moles/Vol] 4.0 mmol/L Normal 3.5-5.1 [facility] Comment on above: Performed By: #### T SH, CMP, LDH #### [facility] [address] [address] [address] Alesia Meyers Sodium [Moles/Vol] 141 mmol/L Normal 136-145 [facility] Comment on above: Performed By: #### T SH, CMP, LDH #### [facility] [address] [address] [address] Alesia Meyers Urea nitrogen [Mass/Vol] 19.0 mg/dL Critically high 7.0-18.0 [facility] Comment on above: Performed By: #### T SH, CMP, LDH #### [facility] [address] [address] [address] Alesia Meyers Urea nitrogen/Creatinine [Mass ratio] 22.6 mg/mg Normal [facility] Comment on above: Performed By: #### T SH, CMP, LDH #### [facility] [address] [id number] Alesia Meyers TSHon 05-10-2022 TSH 3.114 uIU/mL Normal 0.358-3.74 0 [facility] Comment on above: Performed By: #### T SH, CMP, LDH #### [facility] [address] [address] [address] Alesia Meyers Activated partial thrombopla stin time (aPTT) in platelet poor plasma by coagulation aOrdered By: Sly Benson on 04-28-2022 aPTT Coag (PPP) [Time] 28.1 s 25.1-36.5 [facility] Albumin [Mass/volume] in Ser um or PlasmaOrdered By: Sly Benson on 04-28-2022 Albumin [Mass/Vol] 3.5 g/dL 3.2-5.5 [facility] Basophils Auto (Bld) [#/Vol] Ordered By: Sly Benson on 04-28-2022 Basophils (Bld) [#/Vol] 0.0 10*3/uL 0.0-0.2 [facility] Basophils/100 WBC Auto (Bld) Ordered By: Sly Benson on 04-28-2022 Basophils/100 WBC (Bld) 0.5 % . [facility] Creatinine and Glomerular fi ltration rate.predicted panel (S/P/Bld)Ordered By: Sly Benson on 04-28-2022 Creatinine [Mass/Vol] 0.84 mg/dL 0.44-1.03 [facility] Eosinophils Auto (Bld) [#/Vo l]Ordered By: Sly Benson on 04-28-2022 Eosinophils (Bld) [#/Vol] 0.1 10*3/uL 0.0-0.45 [facility] Eosinophils/100 WBC Auto (Bl d)Ordered By: Sly Benson on 04-28-2022 Eosinophils/100 WBC (Bld) 1.1 % . [facility] Erythrocyte distribution wid th Auto (RBC) [Ratio]Ordered By: Sly Benson on 04-28-2022 Erythrocyte distribution width (RBC) [Ratio] 14.1 % 11.9-15.3 [facility] Erythrocyte sedimentation ra te by Photometric methodOrdered By: Sly Benson on 04-28-2022 ESR Photometric method (Bld) [Velocity] 31 mm/hr 0-29 [facility] Estimated glomerular filtrat ion rate (GFR) non- AmericanOrdered By: Sly Benson on 04-28-2022 GFR/1.73 sq M.predicted among non-blacks MDRD (S/P/Bld) [Vol rate/Area] > 60 mL/Min [facility] Globulin Calc (S) [Mass/Vol] Ordered By: Sly Benson on 04-28-2022 Globulin (S) [Mass/Vol] 2.9 g/dL [facility] Hematocrit Auto (Bld) [Volum e fraction]Ordered By: Sly Benson on 04-28-2022 Hematocrit (Bld) [Volume fraction] 40.5 % 34.0-46.4 [facility] Hemoglobin [Mass/volume] in BloodOrdered By: Sly Benson on 04-28-2022 Hemoglobin (Bld) [Mass/Vol] 13.6 g/dL 11.8-15.4 [facility] Laboratory - CoagulationOrde red By: Sly Benson on 04-28-2022 PT Coag (PPP) [Time] 10.6 s 9.0-12.9 [facility] - Hematology and Cell countsOrdered By: Sly Benson on 04-28-2022 Nucleated RBC/100 WBC (Bld) [Ratio] 0.1 % 0-0.5 [facility] Leukocytes [#/volume] in Blo od by Automated countOrdered By: Sly Benson on 04-28-2022 WBC (Bld) [#/Vol] 6.9 10*3/uL 4.5-11.0 [facility] Lymphocytes Auto (Bld) [#/Vo l]Ordered By: Sly Benson on 04-28-2022 Lymphocytes (Bld) [#/Vol] 2.0 10*3/uL 1.00-4.8 [facility] Lymphocytes/100 WBC Auto (Bl d)Ordered By: Sly Benson on 04-28-2022 Lymphocytes/100 WBC (Bld) 28.3 % . [facility] MCH Auto (RBC) [Entitic mass ]Ordered By: Sly Benson on 04-28-2022 MCH (RBC) [Entitic mass] 29.4 pg 24.7-34.3 [facility] MCHC Auto (RBC) [Mass/Vol]Or dered By: Sly Benson on 04-28-2022 MCHC (RBC) [Mass/Vol] 33.6 g/dL 32.0-35.0 [facility] MCV Auto (RBC) [Entitic vol] Ordered By: Sly Benson on 04-28-2022 MCV (RBC) [Entitic vol] 87.5 fL 80-100 [facility] Monocytes Auto (Bld) [#/Vol] Ordered By: Sly Benson on 04-28-2022 Monocytes (Bld) [#/Vol] 0.6 10*3/uL 0.0-0.8 [facility] Monocytes/100 WBC Auto (Bld) Ordered By: Sly Benson on 04-28-2022 Monocytes/100 WBC (Bld) 8.5 % . [facility] Neutrophils Auto (Bld) [#/Vo l]Ordered By: Sly Benson on 04-28-2022 Neutrophils (Bld) [#/Vol] 4.2 10*3/uL 1.8-7.7 [facility] Neutrophils/100 WBC Auto (Bl d)Ordered By: Sly Benson on 04-28-2022 Neutrophils/100 WBC (Bld) 61.6 % . [facility] No Panel InformationOrdered By: Sly Benson on 04-28-2022 Anti-Nuclear Antibody Comment 2 See comment . [facility] Comment on above: For more information about [...] titers Nucleosomes, Histones Drug-induced SLE Speckled Sm, PRODUCT SAFETY CONSULTANT, SCL-70, SLE,MCTD,PSS (diffuse form), SS-A/SS-B Sjogrens Nucleolar SCL-70, PM-1/SCL High titers Scleroderma, PM/DM Centromere Centromere PSS (limited form) w/Crest syndrome variable Nuclear Dot [id number] Primary Biliary Cirrhosis Nuclear GP210, Primary Biliary CirrhosisMembrane fish A,B,C Performed at: [employer] [id number] Director: Coleman Lacy PhD, Phone: [phone] Estimated GFR () > 60 mL/Min [facility] Comment on above: GFR estimated refere nce range: According to KDOQI guidelines, <60 ml/min/1.73m2 is sufficient to diagnose a patient with chronic kidney disease. Pharmacy Creatinine Clearance (Chem 60.78 [facility] Platelet mean volume Auto (B ld) [Entitic vol]Ordered By: Sly Benson on 04-28-2022 Platelet mean volume (Bld) [Entitic vol] 7.6 fL 6.3-10.7 [facility] Platelet poor plasma interna tional normalized ratio (INR) by coagulation assay (relatOrdered By: Sly Benson on 04-28-2022 INR Coag (PPP) [Relative time] 0.9 {INR} [facility] Comment on above: INR Therapeutic Rang e [...] 04-28-2022 Platelets (Bld) [#/Vol] 204 10*3/uL 150-450 [facility] Protein [Mass/volume] in Ser um or PlasmaOrdered By: Sly Benson on 04-28-2022 Protein [Mass/Vol] 6.4 g/dL 6.1-7.9 [facility] RBC Auto (Bld) [#/Vol]Ordere d By: Sly Benson on 04-28-2022 RBC (Bld) [#/Vol] 4.63 10*6/uL 3.60-5.00 [facility] Serum nuclear antibody titer Ordered By: Sly Benson on 04-28-2022 Nuclear Ab (S) [Titer] Positive . [facility] Comment on above: Negative <1:80 Borde rline 1:80 Positive >1:80 Serum or plasma alanine castro otransferase measurement without P-5'-P (enzymatic activiOrdered By: Sly Benson on 04-28-2022 ALT No additional P-5'-P [Catalytic activity/Vol] 34 U/L 10-60 [facility] Serum or plasma albumin/glob ulin mass ratioOrdered By: Sly Benson on 04-28-2022 Albumin/Globulin [Mass ratio] 1.2 {ratio} [facility] Serum or plasma alkaline halle sphatase measurement (enzymatic activity/volume)Ordered By: Sly Benson on 04-28-2022 ALP [Catalytic activity/Vol] 114 U/L 32-92 [facility] Serum or plasma anion gap de terminationOrdered By: Sly Benson on 04-28-2022 Anion gap [Moles/Vol] 11.9 mmol/L 6.0-15.0 [facility] Serum or plasma aspartate am inotransferase measurement (enzymatic activity/volume)Ordered By: Sly Benson on 04-28-2022 AST [Catalytic activity/Vol] 38 U/L 1042 [facility] Serum or plasma calcium diamond urement (mass/volume)Ordered By: Sly Benson on 04-28-2022 Calcium [Mass/Vol] 8.9 mg/dL 8.2-10.2 [facility] Serum or plasma chloride zora surement (moles/volume)Ordered By: Sly Benson on 04-28-2022 Chloride [Moles/Vol] 105 mmol/L 95-114 [facility] Serum or plasma glucose diamond urement (mass/volume)Ordered By: Sly Benson on 04-28-2022 Glucose [Mass/Vol] 110 mg/dL 70-100 [facility] Comment on above: ADA recommended refe rence rangeRandom Glucose Reference Range is dependent on time and content of last meal. Glucose of more than 200 mg/dL in a nonstressed, ambulatory subject supports the diagnosis of Diabetes Mellitus. Serum or plasma potassium me asurement (moles/volume)Ordered By: Sly Benson on 04-28-2022 Potassium [Moles/Vol] 3.5 mmol/L 3.5-5.1 [facility] Serum or plasma sodium measu rement (moles/volume)Ordered By: Sly Benson on 04-28-2022 Sodium [Moles/Vol] 140 mmol/L 136-146 [facility] Serum or plasma total biliru bin measurement (mass/volume)Ordered By: Sly Benson on 04-28-2022 Bilirubin [Mass/Vol] 0.9 mg/dL 0.3-1.2 [facility] Serum or plasma total carbon dioxide measurement (moles/volume)Ordered By: Sly Benson on 04-28-2022 CO2 [Moles/Vol] 26.6 mmol/L 22.0-30.0 [facility] Serum or plasma urea nitroge n measurement (mass/volume)Ordered By: Sly Benson on 04-28-2022 Urea nitrogen [Mass/Vol] 16 mg/dL 9-23 [facility] Serum speckled pattern antin uclear antibody (BARRETT) titerOrdered By: Sly Benson on 04-28-2022 Speckled nuclear Ab pattern (S) [Titer] 1:160 . [facility] Comment on above: ICAP nomenclature: A C-2,4,5,29 TSH DL <= 0.005 mIU/L QnOrde red By: Sly Benson on 04-28-2022 TSH Qn 3.18 m[IU]/L 0.45-5.33 [facility] Creatinine and Glomerular fi ltration rate.predicted panel (S/P/Bld)Ordered By: Alex Trammell on 09-14-2022 Creatinine [Mass/Vol] 0.87 mg/dL 0.44-1.03 [facility] Estimated glomerular filtrat ion rate (GFR) non- AmericanOrdered By: Alex Trammell on 03-26-2022 GFR/1.73 sq M.predicted among non-blacks MDRD (S/P/Bld) [Vol rate/Area] > 60 mL/Min [facility] No Panel InformationOrdered By: Alex Trammell on 03-26-2022 Estimated GFR () > 60 mL/Min [facility] Comment on above: GFR estimated refere nce range: According to KDOQI guidelines, <60 ml/min/1.73m2 is sufficient to diagnose a patient with chronic kidney disease. Pharmacy Creatinine Clearance (Chem N/A [facility] Serum or plasma urea nitroge n measurement (mass/volume)Ordered By: Alex Trammell on 03-26-2022 Urea nitrogen [Mass/Vol] 18 mg/dL 04-04 [facility] Creatinine and Glomerular fi ltration rate.predicted panel (S/P/Bld)Ordered By: Alex Trammell on 10-10-2021 Creatinine [Mass/Vol] 0.91 mg/dL 0.44-1.03 [facility] Estimated glomerular filtrat ion rate (GFR) non- AmericanOrdered By: Alex Trammell on 10-10-2021 GFR/1.73 sq M.predicted among non-blacks MDRD (S/P/Bld) [Vol rate/Area] 60 mL/Min [facility] No Panel InformationOrdered By: Alex Trammell on 10-10-2021 Estimated GFR () > 60 mL/Min [facility] Comment on above: GFR estimated refere nce range: According to KDOQI guidelines, <60 ml/min/1.73m2 is sufficient to diagnose a patient with chronic kidney disease. Pharmacy Creatinine Clearance (Chem N/A [facility] Serum or plasma urea nitroge n measurement (mass/volume)Ordered By: Alex Trammell on 10-10-2021 Urea nitrogen [Mass/Vol] 19 mg/dL 04-04 [facility] Dermatopathologyon 2 Dermatopathology Name THERESA LUU Pathologist: SURAJ MELGAR MD Date of Procedure: 09/17/2021 Date Received: 09/18/2021 Date Reported 09/20/2021 Submitting Physician: ALEX TRAMMELL MD Location: [facility] Other External # FINAL DIAGNOSIS A. SKIN, [...] M.D. Electronically Signed Out By SURAJ MELGAR MD/[facility] By the signature on this report, [...] mm. Inked and embedded in toto. mlz/09/18/2021 [facility] Dermatopathology Laboratory [place], [place] [id number] [place] [address] [place] [address] Comment on above: Performed By: #### D #### Dermatopathology No Panel Informationon 09-17 [facility]: Office Visit (Oncology Surge ry)on [...] not connect with the medical oncologist at [facility] who was planning to consider her for [...] a prior mole. The patient moved from [place] 8 years ago and has not established [...] reports that she has not seen her technical documentation specialist since prior to the cancer treatment. [...] swelling fro (more content not included)... Normal [facility] METABOLIC PANE [facility] 05-04-2021 Albumin [Mass/Vol] 4.1 g/dL Normal 3.6-5.1 [facility] Comment on above: Performed By: #### 7 600, 11486 #### [facility] of [address], [address] [place] [address] [employer] Operator: Chadwick Suárez MD Albumin/Globulin [Mass ratio] 1.4 {ratio} Normal 1.0-2.5 [facility] Comment on above: Performed By: #### 7 600, 40825 #### [facility] of [address], [address] [place] [address] [employer] Operator: Chadwick Suárez MD ALP [Catalytic activity/Vol] 121 U/L Normal 37-153 [facility] Comment on above: Performed By: #### 7 600, 31301 #### [facility] [place] [address] [employer] Operator: Chadwick Suárez MD ALT [Catalytic activity/Vol] 18 U/L Normal 6-29 [facility] Comment on above: Performed By: #### 7 600, 33319 #### [facility] [place] [address] [employer] Operator: Chadwick Suárez MD AST [Catalytic activity/Vol] 19 U/L Normal 10-35 [facility] Comment on above: Performed By: #### 7 600, 46953 #### [facility] of [place] [address] [employer] Operator: Chadwick Suárez MD Bilirubin [Mass/Vol] 0.5 mg/dL Normal 0.2-1.2 [facility] Comment on above: Performed By: #### 7 600, 49193 #### [facility] [place] [address] [employer] Operator: Chadwick Suárez MD BUN/CREATININE RATIO NOT APPLICABLE Normal 6-22 [facility] Comment on above: Performed By: #### 7 600, 95068 #### [facility] of [address], [address] [place] [address] [employer] Operator: Chadwick Suárez MD Calcium [Mass/Vol] 9.4 mg/dL Normal 8.6-10.4 [facility] Comment on above: Performed By: #### 7 600, 77824 #### [facility] [address], [address] [place] [address] [employer] Operator: Chadwick Suárez MD Chloride [Moles/Vol] 106 mmol/L Normal 98-110 [facility] Comment on above: Performed By: #### 7 600, 43328 #### [facility] [address], [address] [place] [address] [employer] Operator: Chadwick Suárez MD CO2 [Moles/Vol] 31 mmol/L Normal 20-32 [facility] Comment on above: Performed By: #### 7 600, 11221 #### [facility] [address], [address] [place] [address] [employer] Operator: Chadwick Suárez MD Creatinine [Mass/Vol] 0.78 mg/dL Normal 0.60-0.[address] [facility] Comment on above: Result Comment: For patients >49 years of age, the reference limit for Creatinine is approximately 13% higher for people identified as -Prydeinig. Performed By: #### 7 600, 36898 #### [facility] [address], [address] [place] [address] [employer] Operator: Chadwick Suárez MD eGFR NON-AFR. [place] 75 mL/min/1.73m2 Normal > OR = 60 [facility] Comment on above: Performed By: #### 7 600, 05220 #### [facility] [address], [address] [place] [address] [employer] Operator: Chadwick Suárez MD GFR/1.73 sq M.predicted among blacks MDRD (S/P/Bld) [Vol rate/Area] 87 mL/min/{1.73_m2} Normal > OR = 60 [facility] Comment on above: Performed By: #### 7 600, 18204 #### [facility] of [address], [address] [place] [address] [employer] Operator: Chadwick Suárez MD Globulin (S) [Mass/Vol] 2.9 g/dL Normal 1.9-3.7 [facility] Comment on above: Performed By: #### 7 600, 68375 #### [facility] of [address], [address] [place] [address] [employer] Operator: Chadwick Suárez MD Glucose [Mass/Vol] 105 mg/dL High 65-99 [facility] Comment on above: Result Comment: Fasting reference interval For someone without known diabetes, a glucose value between 100 and 125 mg/dL is consistent with prediabetes and should be confirmed with a follow-up test. Performed By: #### 7 600, 88667 #### [facility] [place] [address] [employer] Operator: Chadwick Suárez MD Potassium [Moles/Vol] 4.9 mmol/L Normal 3.5-5.3 [facility] Comment on above: Performed By: #### 7 600, 10403 #### [facility] [place] [address] [employer] Operator: Chadwick Suárez MD Protein [Mass/Vol] 7.0 g/dL Normal 6.1-8.1 [facility] Comment on above: Performed By: #### 7 600, 10491 #### [facility] [place] [address] [employer] Operator: Chadwick Suárez MD Sodium [Moles/Vol] 143 mmol/L Normal 135-146 [facility] Comment on above: Performed By: #### 7 600, 42936 #### [facility] of [place] [address] [employer] Operator: Chadwick Suárez MD Urea nitrogen [Mass/Vol] 18 mg/dL Normal 7-25 [facility] Comment on above: Performed By: #### 7 600, 86308 #### [facility] [address], [address] [place] [address] [employer] Operator: Chadwick Suárez MD LIPID PANEL, [address] Cholesterol [Mass/Vol] 235 mg/dL High <200 [facility] Comment on above: Order Comment: FASTI NG:YES AN UPDATE OR CORRECTION HAS BEEN MADE TO NAME FASTING: YES Performed By: #### 7 600, 98447 #### [facility] [address], [address] [place] [address] [employer] Operator: Chadwick Suárez MD Cholesterol in HDL [Mass/Vol] 83 mg/dL Normal > OR = 50 [facility] Comment on above: Order Comment: FASTI NG:YES AN UPDATE OR CORRECTION HAS BEEN MADE TO NAME FASTING: YES Performed By: #### 7 600, 89853 #### [facility] [address], [address] [place] [address] [employer] Operator: Chadwick Suárez MD Cholesterol in LDL [Mass/Vol] [...] factors. LDL-C is now calculated using the Enrique-Neel calculation, which is a validated novel method providing better accuracy than the Friedewald equation in the estimation of LDL-C. Enrique BOUDREAUX et al. ROCCO. 2013;310(19): 0589-5296 (http://education.ClearMomentum.CorTec/faq/OOK568) Performed By: #### 7 600, 84812 #### [facility] [address], [address] [place] [address] [employer] Operator: Chadwick Suárez MD Cholesterol.total/Chol esterol in HDL [Mass ratio] 2.8 {ratio} Normal <5.0 [facility] Comment on above: Order Comment: FASTI NG:YES AN UPDATE OR CORRECTION HAS BEEN MADE TO NAME FASTING: YES Performed By: #### 7 600, 60251 #### [facility] [address], [address] [place] [address] [employer] Operator: Chadwick Suárez MD NON HDL CHOLESTEROL 152 mg/dL (calc) High <130 [facility] Comment on above: Order Comment: AUNG NG:YES AN UPDATE OR CORRECTION HAS BEEN MADE TO NAME FASTING: YES Result Comment: For patients with diabetes plus 1 major ASCVD risk factor, treating to a non-HDL-C goal of <100 mg/dL (LDL-C of <70 mg/dL) is considered a therapeutic option. Performed By: #### 7 600, 77169 #### [facility] [address], [address] [place] [address] [employer] Operator: Chadwick Suárez MD Triglyceride [Mass/Vol] 132 mg/dL Normal <150 [facility] Comment on above: Order Comment: AUNG NG:YES AN UPDATE OR CORRECTION HAS BEEN MADE TO NAME FASTING: YES Performed By: #### 7 600, 71063 #### [facility] [address], [address] [place] [address] [employer] Operator: Chadwick Suárez MD Office Visit (Oncology Surge [...] was referred to Dr. Francisca Rose at [facility] for medical oncology consultation for her [...] a prior mole. The patient moved from [place] 8 years ago and has not established [...] Gauze to (more content not included)... [facility] (Oncology Surge ry)on 12-25-2020 [...] be referred to Dr. Francisca Rose at [facility] for medical oncology consultation. Her care [...] a prior mole. The patient moved from [place] 8 years ago and has not established [...] Disorder of (more content not included)... Normal [facility] Cult, Misc + smearon 021 Bacteria identified Cx Nom (Unsp spec) Abnormal SG-Syrrddf-V [facility] Work Phone: MISCELLANEOUS CULT./SM.BACT. on 12-04-2020 MISCELLANEOUS CULT./SM.BACT. PATIENT: THERESA LUU LOCATION: [facility] BILL#: [id number] : 47 AGE: SEX: F ORDERED BY: [...] DOSE DEPENDENT NS=NONSUSCEPTIBLE X=REPORTED IN ERROR Normal [facility] Comment on above: Performed By: #### M [facility] #### [facility] [address] [place] [address] Office Visit (Oncology Surge ry)on 12-04-2020 Follow-up [...] to Dr. Francisca Rose at [facility] for medical oncology consultation. Her care will [...] a prior mole. The patient moved from [place] 8 years ago and has not established [...] The s (more content not included)... Normal [facility] Office Visit (Oncology Surge ry)on 11-27-2020 Follow-up [...] to Dr. Francisca Rose at [facility] for medical oncology consultation. Her care will [...] a prior mole. The patient moved from [place] 8 years ago and has not established [...] not included)... Normal [facility] Dermatopathologyon 1 Dermatopathology [facility] Dermatopathology Laboratory [address] [place] [id number] DERMATOPATHOLOGY REPORT Name:THERESA LUU. Rec #. [id number] Location: [facility] Date of Procedure: 11/16/2020 Race: [...] determined by the Department of Pathology at [facility]. The FDA does not require this test [...] LEFT LOWER LEG MELANOMA: SPECIMEN Procedure: Re-excision Almond node(s) biopsy Specimen Laterality: Left TUMOR Tumor [...] of Lymph Nodes Examined: 3 Number of Almond Nodes Examined: 2 PATHOLOGIC STAGE CLASSIFICATION (pTNM, [...] ADDITIONAL FINDINGS Additional Findings: None ADDITIONAL TESTING BALLISTICS EXPERT BLOCKS: Normal Block: D1 - 5, 7, 18, 20 - 23 Tumor Block: D6, 8 - 17 Electronically Signed Out By SURAJ MELGAR MD/[facility] By the signature on this report, the individual or group listed as making the Final Interpretation/Diagnosis certifies that they have reviewed this case. Clinical History: A: Almond lymph n (more content not included)... Normal [facility] Comment on above: Performed By: #### D #### Dermatopathology LYMPH GLANDon 11-16-2020 LYMPH GLAND Patient Name: THERESA LUU STUDY: LYMPH GLAND; 11/16/2020 10:05 am INDICATION: Malignant melanoma of left lower leg. COMPARISON: PET-CT 10/31/2020. ACCESSION NUMBER(S): [id number] ORDERING CLINICIAN: ALEX TRAMMELL TECHNIQUE: DIVISION OF [...] Electronically signed by: COCO ARCHIBALD MD [facility] No Panel Informationon 11-16 ZM-Bziydxr-C [facility] Work Phone: Order Reconciliationon 11-16 Order [...] every 6 hours, As Needed pain Normal [facility] Patient Profile - Preop v2on 11-16-2020 Patient Profile - Preop v2 Profile: Initial Info: How to be Addressedpamela(1) Spoken Language PreferredEnglish (1) Source of Informationpatient Are you currently using the Personal Electronic Health Record or [employer] Stated Reason for Admissionmelanoma on my lower left leg Primary Contact Name and Numberdonna-cousin Other Contact Names and Numberssue-friend Patient Belongingsremains with patient; patient educated regarding responsibility for personal items Patient Belongings Remaining with Patientclothing Medications Brought to Hospitalno General Health: Weight in kg90 kilogram(s) Weight in goe003.4 pound(s) Weight Methodactual (measured) Scale Typechair Height in feet5 feet Height in inches2 inch(es) Height in cm157.4 centimeter(s) Height Methodstated BMI (kg/m2)36.327 square meter Patient or Family Member Reaction to Anesthesiano previous reaction Blood Avoidance/Restrictionsnone Previous Transfusion Reactionno Health Mgmt: Symptoms/Conditions Managed at Homecancer Cancer Symptoms/Conditionsmelanom a Barriers to Managing Healthnone Relationship/Environ: Living Arrangementshouse Lives Withalone Resource/Environmental Concernsnone Anticipated Transition [place] Anticipated at Transitionnone Substance: Current or [...] material; individual instruction Cultural Considerationsnone Developmental Considerationsnone Lutheran Considerationsnone Other learner availableno [place] RiskPatient location auto qualifies him/her for HIGH RISK. Are there any cultural, spiritual, yarsani practices/values/needs that are important for us to [...] Profile - Preop v2 14-Nov-2020 09:[address] [facility] Preop Checkliston 11-16-2020 Preop Checklist Preop Checklist: Preop Checklist: Arrival [id number] Arrival Time06:04 NPO [id number] 22:00 ID Band Onyes Allergy Bandno known [...] 16-Nov-2020 06:31 by Deepa Zazueta (GABY) Normal [facility] Radiologyon 11-16-2020 NM Lymph node Views Normal -[facility] Work Phone: BASIC METABOLIC PANELon 050 Anion gap [Moles/Vol] 10 mmol/L Normal 10 - 20 [facility] Comment on above: Performed By: #### B MP #### [facility] [place] [place] [address] [place] [address] Calcium [Mass/Vol] 9.2 mg/dL Normal 8.6 - 10.3 [facility] Comment on above: Performed By: #### B MP #### [facility] [place] [place] [address] [place] [address] Chloride [Moles/Vol] 105 mmol/L Normal 98 - 107 [facility] Comment on above: Performed By: #### B MP #### [address] [address] Creatinine [Mass/Vol] 0.81 mg/dL Normal 0.50 - 1.05 [facility] Comment on above: Performed By: #### B MP #### [address] [address] GFR- AM. >60 Normal >60 [facility] Comment on above: Result Comment: CALC ULATIONS OF ESTIMATED GFR ARE PERFORMED USING THE MDRD STUDY EQUATION FOR THE IDMS-TRACEABLE CREATININE METHODS. CLIN CHEM 2007;53:766-72 Performed By: #### B MP #### [address] [address] GFR-NON AM. >60 Normal >60 [facility] Comment on above: Performed By: #### B MP #### [address] [address] Glucose [Mass/Vol] 95 mg/dL Normal 74 - 99 [facility] Comment on above: Performed By: #### B MP #### [address] [address] HCO3 (Bld) [Moles/Vol] 30 mmol/L Normal 21 - 32 [facility] Comment on above: Performed By: #### B MP #### [address] [address] Potassium [Moles/Vol] 4.1 mmol/L Normal 3.5 - 5.3 [facility] Comment on above: Performed By: #### B MP #### [address] [address] Sodium [Moles/Vol] 141 mmol/L Normal 136 - 145 [facility] Comment on above: Performed By: #### B MP #### [address] [address] Urea nitrogen [Mass/Vol] 16 mg/dL Normal 6 - 23 [facility] Comment on above: Performed By: #### B MP #### [address] [address] CORONAVIRUS 2019, SCREEN ASY MPTOMATICon 05-05-2021 SARS-CoV-2 (COVID-19) RNA BENOIT+probe Ql (Unsp spec) Not detected Normal Not Detected [facility] Comment on above: Result Comment: . This [...] this test method. Fact sheet for providers: https://www.fda.gov/media/977201/download Fact sheet for patients: https://www.fda.gov/media/645363/download This test has received FDA Emergency Use Authorization [EUA] and has been verified by [facility] ([facility]). This test is only authorized for the duration of time that circumstances exist to justify the authorization of the emergency use of in vitro diagnostic tests for the detection of SARS-CoV-2 virus and/or diagnosis of COVID-19 infection under section 564(b)(1) of the Act, 21 U.S.C. 360bbb-3(b)(1), unless the authorization is terminated or revoked sooner. [facility] is certified under CLIA-88 as qualified to perform high complexity testing. Testing is performed in the [facility] laboratories located at [address] [place] [address]. Performed By: #### C OVSC #### [place] [address] Lab Specimen Source Nasal, Nasopharyngeal Normal [facility] Comment on above: Performed By: #### C OVSC #### [place] [address] Coronavirus 2019 RNA by PCR, Screening Asymptomticon 11-14-2020 Coronavirus 2019 RNA by PCR, Screening Asymptomtic Not detected Normal See Below NL-Knvkqne-B [facility] Work Phone: Comment on above: [...] this test method. Fact sheet for providers: https://www.fda.gov/media/702065/downloadFact sheet for patients: https://www.fda.gov/media/039228/downloadThis test has received FDA Emergency Use Authorization [EUA] and has been verified by [facility] ([facility]). This test is only authorized for the duration of time that circumstances exist to justify the authorization of the emergency use of in vitro diagnostic tests for the detection of SARS-CoV-2 virus and/or diagnosis of COVID-19 infection under section 564(b)(1) of the Act, 21 U.S.C. 360bbb-3(b)(1), unless the authorization is terminated or revoked sooner. [facility] is certified under CLIA-88 as qualified to perform high complexity testing. Testing is performed in the [facility] laboratories located at [address] [place] [address]. Covid 19 Resultson 1 SARS-CoV-2 (COVID-19) RNA [...] You may also be contacted by the [facility] [place] to see if any of your close [...] or Naproxen (Aleve) can also be used. Dgjw-xgh-kriokpc cough and cold medicines can be used according to the instructions on the package. Some euqy-kse-nkvcixo medicines also contain acetaminophen. Make sure you [...] water are not available, use alcohol-based hand process control board operator. Avoid touching your eyes, nose, and mouth [...] 24 sivakumar (more content not included)... Normal [facility] Laboratory - Chemistry and C hemistry - challengeon 11-14-2020 Anion gap [Moles/Vol] 10 mmol/L 10 - 20 MG- Surgery-S [facility] Work Phone: Calcium [Mass/Vol] 9.2 mg/dL 8.6 - 10.3 MG[facility] Work Phone: Chloride [Moles/Vol] 105 mmol/L 98 - 107 MG-S [facility] Work Phone: CO2 [Moles/Vol] 30 mmol/L 21 - 32 MG[facility]Surger [facility] Work Phone: [phone] Creatinine [Mass/Vol] 0.81 mg/dL See Below MG- Surgery-S [facility] Work Phone: Comment on above: Reference Range: 0.5 0 - 1.05 Glucose [Mass/Vol] 95 mg/dL 74 - 99 MG-Pedro nancyS [facility] Work Phone: [phone] Potassium [Moles/Vol] 4.1 mmol/L 3.5 - 5.3 MG- Surgery-S [facility] Work Phone: [phone] Sodium [Moles/Vol] 141 mmol/L 136 - 145 MG-Pedro nancyS [facility] Work Phone: [phone] Urea nitrogen [Mass/Vol] 16 mg/dL 6 - 23 QT-Zzaihbi-N [facility] Work Phone: [phone] Panel Informationon 11-14 >60 >60 XZ-Bremvhf-B [facility] Work Phone: [phone] Comment on above: CALCULATIONS OF DENIS MATED GFR ARE PERFORMED USING THE MDRD STUDY EQUATION FOR THE IDMS-TRACEABLE CREATININE METHODS. CLIN CHEM 2007;53:766-72 [email or web address] 1:8080 /[email or web address]?R etrieveTestByDateTime?Rachel etzMF=[id number]&Date=11-14&Time=09%3a51%3a40%3a 00&TestType=ECG&Site=12&Ou tputType=PDF&Ext=PDF UD-Lltjozd-O [facility] Work Phone: 51 Normal sinus rhythm MG-Burton rgery-S [facility] Work Phone: 51 Normal FW-Mmxffju-W [facility] Work Phone: [phone] DN-Kexdwdz-L [facility] Work Phone: [phone] RQ-Zrgujxd-O [facility] Work Phone: [phone] AT-Rvqwkuv-F [facility] Work Phone: [phone] WI-Nuzdjgs-V [facility] Work Phone: [phone] HR-Tpjuoaf-E [facility] Work Phone: [phone] NX-Yvyaopy-J [facility] Work Phone: [phone] 1 BO-Tsnjrcx-X [facility] Work Phone: [phone] QA-Scqttys-V [facility] Work Phone: [phone] PI-Zohdvld-I [facility] Work Phone: [phone] FO-Jvcirge-I [facility] Work Phone: [phone] OH-Ppduxek-L [facility] Work Phone: [phone] KV-Fsoxdcx-I [facility] Work Phone: [phone] SY-Jcqqzio-Z [facility] Work Phone: [phone] QJ-Dfemwcn-K [facility] Work Phone: PET/CT MELANOMA INITIAL STAG [facility] 10-31-2020 PET/CT MELANOMA INITIAL STAGING Patient Name: [...] leg biopsy-proven melanoma. COMPARISON: None. ACCESSION NUMBER(S): [id number] ORDERING CLINICIAN: ALEX TRAMMELL TECHNIQUE: DIVISION OF [...] CODING: Initial Treatment Strategy (PI) CALIBRATION: Dose Awgwnyrku-oo-Sigf Interval (mins): 72 min Mediastinal bloodpool SUV [...] as stated. This study was interpreted at [facility]. Electronically signed by: IVELISSE OVALLE MD Normal [facility] Office Visit (Oncology Surge ry)on 10-23-2020 [...] a prior mole. The patient moved from [place] 8 years ago and has not established [...] chronic medical conditions Social history: Lives in [facility] independently. Has 2 dogs. Walks regularly. Denies tobacco, alcohol, and drug use. Has extended family in [facility] Allergies: No known drug allergies [...] use of (more content not included)... Normal [facility] Surgical Pathology Depar tmenton 10-16-2020 [facility] Surgical Pathology Department Name THERESA LUU Pathologist: SHER DIAS MD Date of Procedure: 10/16/2020 Date Received: 10/31/2020 Date Reported 11/02/2020 Submitting Physician: SURAJ MELGAR MD Location: [facility] FINAL DIAGNOSIS RESULTS OF ANCILLARY [...] extraction and testing are performed in the [facility] ([facility]) located at [address] [place] [address] (CLIA License #[id number], CAP #[id number]). This laboratory developed test was developed and its analytical performance characteristics have been determined by [facility]. This test has not been cleared or approved by the FDA; however, the FDA has determined that such approval is not necessary. The [facility] is certified under the [...] as m (more content not included)... Normal [facility] Comment on above: Performed By: #### U [facility] #### [facility] Surgical Pathology Department [id number] [facility] [id number] Vital Signs Date Time Vital Sign Value Performing Clinician Facility 09-30-2023 16:29-0400 Body height 157.5 cm [facility] [employer] [facility] 09-30-2023 16:29-0400 Body mass index (BMI) [Ratio] 34.42 kg/m2 [employer] Work [facility] 09-30-2023 16:29-0400 Body temperature 99.19 [degF] [employer] 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 [employer] Work [facility] 09-30-2023 16:29-0400 Body weight 85.37 kg [employer] 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 [employer] [facility] 09-30-2023 16:29-0400 Diastolic blood pressure 60 mm[Hg] [employer] 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 [employer] Work Phone: [employer] 09-30-2023 16:29-0400 Heart rate 94 /min [employer] [facility] 09-30-2023 16:29-0400 SaO2% (BldA) [Mass fraction] 96 % Virginia Apurva 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 [employer] Work Phone: [facility] 09-30-2023 16:29-0400 Systolic blood pressure 120 mm[Hg] 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 APRN-BULK COOLER INSTALLER Work Phone: [facility] 09-15-2023 16:00-0500 Body height 157.5 cm Yoni Furlong DO Work Phone: [facility] 09-15-2023 16:00-0500 Body mass index (BMI) [Ratio] 34.84 kg/m2 Yoni Furlong DO Work Phone: [facility] 09-15-2023 16:00-0500 Body temperature 98.91 [degF] Yoni Furlong DO Work Phone: [facility] 09-15-2023 16:00-0500 Body weight 86.41 kg Yoni Furlong DO Work Phone: [facility] 09-15-2023 16:00-0500 Diastolic blood pressure 50 mm[Hg] Yoni Furlong DO Work Phone: [facility] 09-15-2023 16:00-0500 Heart rate 80 /min Yoni Furlong DO Work Phone: [facility] 09-15-2023 16:00-0500 SaO2% (BldA) [Mass fraction] 96 % Yoni Furlong DO Work Phone: [facility] 09-15-2023 16:00-0500 Systolic blood pressure 130 mm[Hg] Yoni Furlong DO Work Phone: [facility] 08-07-2023 11:24-0500 Body temperature 98.2 [degF] DO Yoni Furlong Work Phone: [facility] 08-07-2023 11:24-0500 Body weight 89.35 kg DO Yoni Furlong Work Phone: [facility] 08-07-2023 11:24-0500 Diastolic blood pressure 70 mm[Hg] DO Yoni Furlong Work Phone: [facility] 08-07-2023 11:24-0500 Heart rate 88 /min DO Yoni Furlong Work Phone: [facility] 08-07-2023 11:24-0500 Respiratory rate 18 /min DO Yoni Furlong Work Phone: [facility] 08-07-2023 11:24-0500 SaO2% (BldA) [Mass fraction] 98 % DO Yoni Furlong Work Phone: [facility] 08-07-2023 11:24-0500 Systolic blood pressure 151 mm[Hg] DO Yoni Furlong Work Phone: [facility] 07-14-2023 13:32-0500 Body temperature 98.2 [degF] DO Yoni Furlong Work Phone: [facility] 07-14-2023 13:32-0500 Diastolic blood pressure 78 mm[Hg] DO Yoni Furlong Work Phone: [facility] 07-14-2023 13:32-0500 Heart rate 81 /min DO Yoni Furlong Work Phone: [facility] 07-14-2023 13:32-0500 Respiratory rate 18 /min DO Yoni Furlong Work Phone: [facility] 07-14-2023 13:32-0500 SaO2% (BldA) [Mass fraction] 97 % DO Yoni Furlong Work Phone: [facility] 07-14-2023 13:32-0500 Systolic blood pressure 113 mm[Hg] DO Yoni Furlong Work Phone: [facility] 03-24-2023 10:14-0400 Body height 160.02 cm DO Yoni Furlong Work Phone: [facility] 03-06-2023 13:49-0400 Body temperature 97.8 [degF] DO Yoni Furlong Work Phone: [facility] 03-06-2023 13:49-0400 Body weight 89.35 kg DO Yoni Furlong Work Phone: [facility] 03-06-2023 13:49-0400 Diastolic blood pressure 71 mm[Hg] DO Yoni Furlong Work Phone: [facility] 03-06-2023 13:49-0400 Heart rate 87 /min DO Yoni Furlong Work Phone: [facility] 03-06-2023 13:49-0400 Respiratory rate 16 /min DO Yoni Furlong Work Phone: [facility] 03-06-2023 13:49-0400 SaO2% (BldA) [Mass fraction] 94 % DO Yoni Furlong Work Phone: [facility] 03-06-2023 13:49-0400 Systolic blood pressure 139 mm[Hg] DO Yoni Furlong Work Phone: [facility] 01-27-2023 10:30-0400 Body temperature 97.5 [degF] Kimber Lacy Other [employer] Other 01-27-2023 10:30-0400 Body weight 87.54 kg Kimber Regino Other [employer] Other 01-27-2023 10:30-0400 Diastolic blood pressure 80 mm[Hg] Kimber Lacy Other [employer] Other 01-27-2023 10:30-0400 SaO2% (BldA) [Mass fraction] 96 % Kimber Lacy Other [facility] [employer] Other 01-27-2023 10:30-0400 Systolic blood pressure 159 mm[Hg] Kimber Lacy Other [facility] [employer] Other 01-27-2023 10:23-0400 Body temperature 97.5 [degF] DO Yoni Furlong Work Phone: [facility] 01-27-2023 10:23-0400 Body weight 88.49 kg DO Yoni Furlong Work Phone: [facility] 01-27-2023 10:23-0400 Diastolic blood pressure 80 mm[Hg] DO Yoni Furlong Work Phone: [facility] 01-27-2023 10:23-0400 Heart rate 90 /min DO Yoni Furlong Work Phone: [facility] 01-27-2023 10:23-0400 Respiratory rate 18 /min DO Yoni Furlong Work Phone: [facility] 01-27-2023 10:23-0400 SaO2% (BldA) [Mass fraction] 96 % DO Yoni Furlong Work Phone: [facility] 01-27-2023 10:23-0400 Systolic blood pressure 159 mm[Hg] DO Yoni Furlong Work Phone: [facility] 12-30-2022 09:56-0400 Body weight 88.45 kg DO Yoni Furlong Work Phone: [facility] 12-30-2022 08:26-0400 Body temperature 97.8 [degF] DO Yoni Furlong Work Phone: [facility] 12-30-2022 08:26-0400 Body weight 88.45 kg DO Yoni Furlong Work Phone: [facility] 12-30-2022 08:26-0400 Diastolic blood pressure 81 mm[Hg] DO Yoni Furlong Work Phone: [facility] 12-30-2022 08:26-0400 Heart rate 86 /min DO Yoni Furlong Work Phone: [facility] 12-30-2022 08:26-0400 Respiratory rate 16 /min DO Yoni Furlong Work Phone: [facility] 12-30-2022 08:26-0400 SaO2% (BldA) [Mass fraction] 98 % DO Yoni Furlong Work Phone: [facility] 12-30-2022 08:26-0400 Systolic blood pressure 132 mm[Hg] DO Yoni Furlong Work Phone: [facility] 09-08-2022 11:09-0500 Body weight 90.2 kg DO Yoni Furlong Work Phone: [facility] 09-08-2022 09:52-0500 Body temperature 97.9 [degF] DO Yoni Furlong Work Phone: [facility] 09-08-2022 09:52-0500 Body weight 90.2 kg DO Yoni Furlong Work Phone: [facility] 09-08-2022 09:52-0500 Diastolic blood pressure 82 mm[Hg] DO Yoni Furlong Work Phone: [facility] 09-08-2022 09:52-0500 Heart rate 78 /min DO Yoni Furlong Work Phone: [facility] 09-08-2022 09:52-0500 Respiratory rate 20 /min DO Yoni Furlong Work Phone: [facility] 09-08-2022 09:52-0500 SaO2% (BldA) [Mass fraction] 97 % DO Yoni Furlong Work Phone: [facility] 09-08-2022 09:52-0500 Systolic blood pressure 137 mm[Hg] DO Yoni Furlong Work Phone: [facility] 08-11-2022 11:25-0500 Body weight 89.4 kg DO Yoni Furlong Work Phone: [facility] 08-11-2022 10:28-0500 Body height 160.02 cm DO Yoni Furlong Work Phone: [facility] 08-11-2022 10:28-0500 Body temperature 97.4 [degF] DO Yoni Furlong Work Phone: [facility] 08-11-2022 10:28-0500 Diastolic blood pressure 68 mm[Hg] DO Yoni Furlong Work Phone: [facility] 08-11-2022 10:28-0500 Heart rate 82 /min DO Yoni Furlong Work Phone: [facility] 08-11-2022 10:28-0500 Respiratory rate 20 /min DO Yoni Furlong Work Phone: [facility] 08-11-2022 10:28-0500 SaO2% (BldA) [Mass fraction] 98 % DO Yoni Furlong Work Phone: [facility] 08-11-2022 10:28-0500 Systolic blood pressure 132 mm[Hg] DO Yoni Furlong Work Phone: [facility] 06-23-2022 12:05-0500 Body weight 88.6 kg DO Yoni Furlong Work Phone: [facility] 06-23-2022 10:44-0500 Body temperature 97.9 [degF] DO Yoni Furlong Work Phone: [facility] 06-23-2022 10:44-0500 Body weight 88.6 kg DO Yoni Furlong Work Phone: [facility] 06-23-2022 10:44-0500 Diastolic blood pressure 74 mm[Hg] DO Yoni Furlong Work Phone: [facility] 06-23-2022 10:44-0500 Heart rate 80 /min DO Yoni Furlong Work Phone: [facility] 06-23-2022 10:44-0500 Respiratory rate 18 /min DO Yoni Furlong Work Phone: [facility] 06-23-2022 10:44-0500 SaO2% (BldA) [Mass fraction] 98 % DO Yoni Furlong Work Phone: [facility] 06-23-2022 10:44-0500 Systolic blood pressure 141 mm[Hg] DO Yoni Furlong Work Phone: [facility] 06-02-2022 10:29-0500 Body temperature 97.7 [degF] DO Yoni Furlong Work Phone: [facility] 06-02-2022 10:29-0500 Body weight 89.9 kg DO Yoni Furlong Work Phone: [facility] 06-02-2022 10:29-0500 Diastolic blood pressure 82 mm[Hg] DO Yoni Furlong Work Phone: [facility] 06-02-2022 10:29-0500 Heart rate 92 /min DO Yoni Furlong Work Phone: [facility] 06-02-2022 10:29-0500 Respiratory rate 16 /min DO Yoni Furlong Work Phone: [facility] 06-02-2022 10:29-0500 SaO2% (BldA) [Mass fraction] 97 % DO Yoni Furlong Work Phone: [facility] 06-02-2022 10:29-0500 Systolic blood pressure 150 mm[Hg] DO Yoni Furlong Work Phone: [facility] 05-02-2022 15:07-0400 Body weight 92.8 kg DO Yoni Furlong Work Phone: [facility] 05-02-2022 15:07-0400 Diastolic blood pressure 83 mm[Hg] DO Yoni Furlong Work Phone: [facility] 05-02-2022 15:07-0400 Heart rate 87 /min DO Yoni Furlong Work Phone: [facility] 05-02-2022 15:07-0400 Respiratory rate 20 /min DO Yoni Furlong Work Phone: [facility] 05-02-2022 15:07-0400 SaO2% (BldA) [Mass fraction] 98 % DO Yoni Furlong Work Phone: [facility] 05-02-2022 15:07-0400 Systolic blood pressure 146 mm[Hg] DO Yoni Furlong Work Phone: [facility] 04-28-2022 09:07-0400 Diastolic blood pressure 76 mm[Hg] DO Yoni Furlong Work Phone: [facility] 04-28-2022 09:07-0400 Heart rate 93 /min DO Yoni Furlong Work Phone: [facility] 04-28-2022 09:07-0400 Respiratory rate 18 /min DO Yoni Furlong Work Phone: [facility] 04-28-2022 09:07-0400 SaO2% (BldA) [Mass fraction] 95 % DO Yoni Furlong Work Phone: [facility] 04-28-2022 09:07-0400 Systolic blood pressure 148 mm[Hg] DO Yoni Furlong Work Phone: [facility] 04-28-2022 08:11-0400 Body height 157.48 cm DO Yoni Furlong Work Phone: [facility] 04-28-2022 08:11-0400 Body temperature 98.6 [degF] DO Yoni Furlong Work Phone: [facility] 04-28-2022 08:11-0400 Body weight 91.17 kg DO Yoin Furlong Work Phone: [facility] 04-21-2022 08:54-0400 Body height 160.02 cm DO Yoni Furlong Work Phone: [facility] 04-21-2022 08:54-0400 Body temperature 98 [degF] DO Yoni Furlong Work Phone: [facility] 04-21-2022 08:54-0400 Body weight 91.48 kg DO Yoni Furlong Work Phone: [facility] 04-21-2022 08:54-0400 Diastolic blood pressure 87 mm[Hg] DO Yoni Furlong Work Phone: [facility] 04-21-2022 08:54-0400 Heart rate 85 /min DO Yoni Furlong Work Phone: [facility] 04-21-2022 08:54-0400 Respiratory rate 20 /min DO Yoni Furlong Work Phone: [facility] 04-21-2022 08:54-0400 SaO2% (BldA) [Mass fraction] 97 % DO Yoni Furlong Work Phone: [facility] 04-21-2022 08:54-0400 Systolic blood pressure 161 mm[Hg] DO Oyni Furlong Work Phone: [facility] 10-25-2021 09:45-0400 Body temperature 98 [degF] MD Alex Trammell Work Phone: [facility] 10-25-2021 09:45-0400 Body weight 90.94 kg MD Alex Trammell Work Phone: [facility] 10-25-2021 09:45-0400 Diastolic blood pressure 70 mm[Hg] MD Alex Trammell Work Phone: [facility] 10-25-2021 09:45-0400 Heart rate 90 /min MD Alex Trammell Work Phone: [facility] 10-25-2021 09:45-0400 Respiratory rate 20 /min MD Alex Trammell Work Phone: [facility] 10-25-2021 09:45-0400 SaO2% (BldA) [Mass fraction] 98 % MD Alex Trammell Work Phone: [facility] 10-25-2021 09:45-0400 Systolic blood pressure 141 mm[Hg] MD Alex Trammell Work Phone: [facility] 10-07-2021 08:13-0400 Body temperature 98.1 [degF] DO Sly Adamowicz II Work Phone: [facility] 10-07-2021 08:13-0400 Body weight 92.8 kg DO Sly Adamowicz II Work Phone: [facility] 10-07-2021 08:13-0400 Diastolic blood pressure 78 mm[Hg] DO Sly Adamowicz II Work Phone: [facility] 10-07-2021 08:13-0400 Heart rate 96 /min DO Sly Adamowicz II Work Phone: [facility] 10-07-2021 08:13-0400 Respiratory rate 20 /min DO Sly Adamowicz II Work Phone: [facility] 10-07-2021 08:13-0400 SaO2% (BldA) [Mass fraction] 97 % DO Sly Adamowicz II Work Phone: [facility] 10-07-2021 08:13-0400 Systolic blood pressure 144 mm[Hg] DO Sly Benson II Work Phone: [facility] 10-07-2021 08:05-0400 Body height 160.02 cm DO Sly Benson II Work Phone: [facility] 09-17-2021 15:09-0500 Body temperature 98.6 [degF] Yoni Prolong Work Phone: FL-Srnujmj-Hmhyuti [facility] 4608 Work Phone: 09-17-2021 15:09-0500 Body weight 89.54 kg Yoni Prolong Work Phone: [facility] Work Phone: 09-17-2021 15:09-0500 Diastolic blood pressure 81 mm[Hg] Yoni Prolong Work Phone: NP-Ztdycfm-Nqiiysr [facility] 460 Work Phone: 09-17-2021 15:09-0500 Heart rate 101 /min Yoni Prolong Work Phone: PH-Aaktqbh-Lxgnsje [facility] 460 Work Phone: 09-17-2021 15:09-0500 Respiratory rate 18 /min Yoni Prolong Work Phone: MC-Jqgsoik-Frdvuwk [facility] 4607 Work Phone: 09-17-2021 15:09-0500 Systolic blood pressure 158 mm[Hg] Yoni Prolong Work Phone: MU-Dgwyatz-Jxnbgul [facility] 4603 Work Phone: 01-22-2021 14:42-0400 Body weight 88.03 kg Yoni Prolong Work Phone: JZ-Qrpjrxy-Wrydyfjj 150 Work Phone: 01-22-2021 14:42-0400 Diastolic blood pressure 84 mm[Hg] Yoni G Furlong Work Phone: TD-Skciokv-Ogbhyaav 150 Work Phone: 01-22-2021 14:42-0400 Heart rate 102 /min Yoni G Furlong Work Phone: KI-Iwdswao-Qizgcfud 150 Work Phone: 01-22-2021 14:42-0400 SaO2% (BldA) [Mass fraction] 95 % Yoni G Furlong Work Phone: TO-Vrtogdh-Kvbvhyzj 150 Work Phone: 01-22-2021 14:42-0400 Systolic blood pressure 149 mm[Hg] Yoni G Furlong Work Phone: AW-Qymkaza-Pghejyba 150 Work Phone: 12-25-2020 15:23-0400 Body weight 89.36 kg Yoni G Furlong Work Phone: [facility] Work Phone: 12-25-2020 15:23-0400 Diastolic blood pressure 85 mm[Hg] Yoni G Furlong Work Phone: [facility] Work Phone: 12-25-2020 15:23-0400 Heart rate 105 /min Yoni G Furlong Work Phone: [facility] Work Phone: 12-25-2020 15:23-0400 SaO2% (BldA) [Mass fraction] 95 % Yoni G Furlong Work Phone: [facility] Work Phone: 12-25-2020 15:23-0400 Systolic blood pressure 163 mm[Hg] Yoni G Furlong Work Phone: [facility] Work Phone: 12-04-2020 15:07-0400 Diastolic blood pressure 84 mm[Hg] Yoni Hollowayng Work Phone: [facility] SM Work Phone: 12-04-2020 15:07-0400 Heart rate 111 /min Yoni Hollowayng Work Phone: [facility] SM Work Phone: 12-04-2020 15:07-0400 SaO2% (BldA) [Mass fraction] 98 % Yoni Hollowayng Work Phone: [facility] SM Work Phone: 12-04-2020 15:07-0400 Systolic blood pressure 154 mm[Hg] Yoni Hollowayng Work Phone: [facility] SM Work Phone: 11-27-2020 15:10-0400 Body weight 90.72 kg Yoni Hollowayng Work Phone: [facility] Work Phone: 11-27-2020 15:10-0400 Diastolic blood pressure 79 mm[Hg] Yoni Prolong Work Phone: [facility] Work Phone: 11-27-2020 15:10-0400 Heart rate 98 /min Yoni Prolong Work Phone: [facility] Work Phone: 11-27-2020 15:10-0400 SaO2% (BldA) [Mass fraction] 96 % Yoni Prolong Work Phone: [facility] Work Phone: 11-27-2020 15:10-0400 Systolic blood pressure 138 mm[Hg] Yoni Muller Work Phone: [facility] Work Phone: 1945 23:00-0500 >na< Quentin Fitzpatrick Dept. of Ele[facility] matology Encounters Encounter Date Encounter Type Care Provider Facility Start: 2023 ambulatory Sly Jeffrey David rich II Facility:[facility] Start: 09-30-2023 End: 09-30-2023 Office outpatient visit 15 minutes 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 APRN-BULK COOLER INSTALLER Work Phone: [facility] Comment on above: Injury of left wrist , initial encounter (Primary Dx) Start: 09-17-2023 Orders Only Yoni hyatt DO Work Phone: [facility] Start: 09-15-2023 End: 09-15-2023 Office outpatient visit 25 minutes Yoni Muller DO Work Phone: [facility] Comment on above: Benign hypertension with chronic kidney disease, stage III (CMS-HCC) (Primary Dx); Hyperlipidemia, unspecified hyperlipidemia type; Malignant melanoma of left lower leg (CMS-HCC); Class 2 severe obesity due to excess calories with serious comorbidity and body mass index (BMI) of 35.0 to 35.9 in adult Start: 09-08-2023 Refill Yoni Holloway ng DO Work Phone: [facility] Comment on above: Essential (primary) hypertension Start: 08-07-2023 ambulatory Sly Jeffrey David rich II Facility:[facility] Start: 08-07-2023 Registered Recurring DO Yoni Prolong [facility] Work [facility]: Start: 08-07-2023 End: 08-07-2023 ambulatory DO Yonijanee Prolong Work Phone: [facility] Work Phone: Start: 08-07-2023 End: 08-07-2023 Patient encounter procedure DO Yoni Furlong Work Phone: [facility] Work Phone: Start: 03-06-2023 End: 03-06-2023 ambulatory DO Yoni Furlong Work Phone: [facility] Work Phone: Start: 03-06-2023 End: 03-06-2023 Registered Recurring DO Yoni Furlong Work Phone: [facility] Work Phone: Start: 01-27-2023 Office outpatient vi sit 25 minutes Kimber Lacy [facility] Start: 01-27-2023 End: 01-27-2023 ambulatory DO Yoni Furlong Work Phone: [facility] Work Phone: Start: 01-27-2023 End: 01-27-2023 Registered Recurring DO Yoni Furlong Work Phone: [facility] Work Phone: Start: 12-30-2022 End: 12-30-2022 ambulatory DO Yoni Furlong Work Phone: [facility] Work Phone: Start: 12-30-2022 End: 12-30-2022 Registered Recurring DO Yoni Furlong Work Phone: [facility] Work Phone: Start: 12-30-2022 End: 12-30-2022 ambulatory DO Yoni Furlong Work Phone: [facility] Work Phone: Start: 12-30-2022 End: 12-30-2022 Registered Recurring DO Yoni Furlong Work Phone: [facility] Work Phone: Start: 10-03-2022 End: 10-04-2022 ambulatory SLY BENSON Facility:[facility] Start: 09-08-2022 End: 09-08-2022 ambulatory DO Yoni Furlong Work Phone: [facility] Work Phone: Start: 09-08-2022 End: 09-08-2022 Registered Recurring DO Yoni Furlong Work Phone: [facility] Work Phone: Start: 09-05-2022 End: 09-06-[address] YONI MULLER Facility:H1 Start: 08-11-2022 End: 08-11-2022 ambulatory DO Yoni Furlong Work Phone: [facility] Work Phone: Start: 08-11-2022 End: 08-11-2022 Registered Recurring DO Yoni Furlong Work Phone: [facility] Work Phone: Start: 07-21-2022 End: 07-22-2022 ambulatory SLY BENSON Facility:H1 Start: 06-23-2022 End: 06-23-2022 ambulatory DO Yoni Furlong Work Phone: [facility] Work Phone: Start: 06-23-2022 End: 06-23-2022 Registered Recurring DO Yoni Furlong Work Phone: [facility] Start: 06-23-2022 End: 06-23-2022 ambulatory DO Yoni Furlong Work Phone: [facility] Work Phone: Start: 06-23-2022 End: 06-23-2022 Registered Recurring DO Yoni Furlong Work Phone: [facility] Start: 06-20-2022 End: 06-21-[address] YONI MULLER Facility:H1 Start: 06-02-2022 End: 06-02-2022 ambulatory DO Yoni Furlong Work Phone: [facility] Work Phone: Start: 06-02-2022 End: 06-02-2022 Registered Recurring DO [facility] Furlong [facility] Start: 05-30-2022 End: 05-31-2022 ambulatory SLY BENSON Facility:H1 Start: 05-13-2022 End: 05-14-2022 ambulatory SLY BENSON Facility:H1 Start: 05-10-2022 End: 05-11-2022 ambulatory SLY BENSON Facility:H1 Start: 05-02-2022 End: 05-02-2022 ambulatory DO Yoni Furlong Work Phone: [facility] Work Phone: Start: 05-02-2022 End: 05-02-2022 Registered Recurring DO Yoni Furlong [facility] Start: 04-28-2022 End: 04-28-2022 Admission to same day surgery center DO Yoni Furlong Work Phone: [facility] Start: 04-28-2022 End: 04-28-2022 ambulatory DO Yoni Furlong Work Phone: [facility] Work Phone: Start: 04-21-2022 End: 04-21-2022 ambulatory DO Yoni Furlong Work Phone: [facility] Work Phone: Start: 04-21-2022 End: 04-21-2022 Registered Recurring DO Yoni Furlong [facility] Start: 03-26-2022 End: 03-26-2022 Patient encounter procedure DO Yoni Muller Work Phone: [facility]CT [facility] Start: 10-25-2021 End: 10-25-2021 Registered Recurring MD Alex Trammell [facility] [place] Start: 10-10-2021 End: 10-10-2021 Patient encounter procedure DO Sly Hernandezconnorkinsey II Work Phone: [facility] Start: 10-07-2021 End: 10-07-2021 Registered Recurring DO Sly Benson II [facility] [place] Start: 10-07-2021 Registered Recurring DO Mananmarin ani Benson II [facility] [place] Start: 09-24-2021 AUDIT Yoni Holloway ng Work Phone: [facility] Work Phone: Start: 09-23-2021 Chart Update Yoni hyatt Work Phone: [facility] Work [facility]: Start: 09-17-2021 Office outpatient ne w 30 minutes Yoni Muller Work Phone: [facility] 4600 Work Phone: Start: 09-17-2021 Office outpatient vi sit 15 minutes Yoni Neo Prolastedmar Work Phone: AG-Mfpifaw-Rquvf Main Work Phone: Start: 01-22-2021 Office outpatient vi sit 15 minutes Yoni Neo Prolastng Work Phone: WR-Swpaqqm-Limihrgi 150 Work Phone: Start: 01-12-2021 AUDIT Yoni hyatt Work Phone: [facility] Work Phone: Start: 12-25-2020 Office outpatient vi sit 25 minutes Yoni Muller Work Phone: [place] [address] Work Phone: Start: 12-25-2020 Patient encounter procedure Yoni Muller Work Phone: [facility] Work Phone: Start: 12-17-2020 AUDIT Yoni hyatt Work Phone: [facility] Work Phone: Start: 12-04-2020 FUV, Provider: Alex Trammell, Status: Pen, Time: 3:00 PM Yoni Muller Work Phone: [facility] Work Phone: Start: 12-04-2020 Patient encounter procedure Yoni Muller Work Phone: [facility] Work Phone: Start: 11-27-2020 Postop follow up vis it related to original px Yoni Muller Work Phone: [facility] Work Phone: Start: 11-27-2020 [facility] Start: 11-13-2020 [facility] Start: 10-23-2020 [facility] Procedures Date Procedure Procedure Detail Performing Clinician Start: 09-30-2023 Adult depression screening assessment [place] SOLIS Work Phone: Start: 09-15-2023 Adult depression screening assessment Yoni Furlong DO Work Phone: Start: 08-06-2023 Computed tomography [...] Start: 02-06-2023 Adult depression screening assessment Yoni Furlong DO Work Phone: Start: 10-31-2022 Computed tomography [...] Start: 11-13-2020 Quentin Fitzpatrick Start: 10-23-2020 Quentin Fuentesherine McGra w Other Plan of Treatment Date Care Activity Detail Author Start: 09-29-2024 Adult BMI Screening Adult BMI Screen ing [facility] Start: 09-29-2024 Depression Screening Depression Scre ening [facility] Start: 09-29-2024 Fall Risk Screening Fall Risk Screen ing [facility] Start: 09-29-2024 Tobacco Screening Tobacco Screening [facility] Start: 09-14-2024 Adult BMI Screening Adult BMI Screen ing [facility] Start: 09-14-2024 Depression Screening Depression Scre ening [facility] Start: 09-14-2024 Fall Risk Screening Fall Risk Screen ing [facility] Start: 09-14-2024 Tobacco Screening Tobacco Screening [facility] Start: 03-17-2024 End: 03-17-2024 Patient encounter procedure 03/17/2024 4:15 PM EDT Office Visit [facility] [address] [place] [address] Yoni Muller, DO [address], [place] [address] [facility] Start: 02-07-2024 Administration of [facility] zoster vaccine Zoster (Shingles) Vaccine (1 of 2) [facility] Comment on above: Postponed from 10/02 (Patient Refused) Start: 02-07-2024 Adult BMI Screening Adult BMI Screen ing [facility] Start: 02-07-2024 Depression Screening Depression Scre ening [facility] Start: 02-07-2024 DTaP,Tdap and Td Vac cines (1 - Tdap) DTaP,Tdap and Td Vaccines (1 - Tdap) [facility] Comment on above: Postponed from 10/02 (Patient Refused) Start: 02-07-2024 Tobacco Screening Tobacco Screening [facility] Start: 01-11-2024 Medicare Annual Well ness Visit Medicare Annual Wellness Visit [facility] Comment on above: Postponed from 10/02 (Patient Refused) Start: 10-11-2023 Influenza vaccination Influenza Vacc ine [facility] Comment on above: Postponed from 03/13 (Patient Refused) Start: 09-15-2023 End: 09-15-2023 Patient encounter procedure 09/15/2023 4:00 PM EST Office Visit [facility] [address] [place] [address] Yoni Muller DO [address], [place] [address] [facility] Start: 08-07-2023 [facility] Start: 08-06-2023 End: 08-07-2023 [facility] Start: 08-06-2023 Adrenocorticotropic hormone measurement [facility] Start: 07-14-2023 [facility] Start: 07-14-2023 [facility] Start: 06-17-2023 Fall Risk Screening Fall Risk Screen ing [facility] Start: 06-16-2023 [facility] Start: 05-19-2023 [facility] Start: 04-21-2023 [facility] Start: 03-24-2023 [facility] Start: 03-13-2023 COVID-19 Vaccine ( season) COVID-19 Vaccine ( season) [facility] Start: 03-13-2023 Influenza vaccination Influenza Vacc ine [facility] Start: 02-24-2023 [facility] Start: 01-27-2023 [facility] Start: 01-27-2023 [facility] Start: 12-30-2022 Adrenocorticotropic hormone measurement [facility] Start: 12-30-2022 [facility] Start: 12-30-2022 [facility] Start: 12-25-2022 [facility] Start: 12-01-2022 [facility] Start: 11-03-2022 [facility] Start: 10-06-2022 [facility] Start: 09-08-2022 [facility] Start: 09-08-2022 [facility] Start: 08-11-2022 [facility] Start: 07-23-2022 [facility] Start: 06-23-2022 [facility] Start: 06-23-2022 Adrenocorticotropic hormone measurement [facility] Start: 06-23-2022 [facility] Start: 06-02-2022 [facility] Start: 05-12-2022 End: 05-12-2022 [facility] Start: 05-12-2022 [facility] Start: 04-28-2022 [facility] Start: 04-28-2022 [facility] Start: 04-28-2022 [facility] Start: 02-19-2021 FUV, Provider: Alex Trammell, Status: Pen, Time: 3:00 PM FUV, Provider: Alex Trammell, Status: Pen, Time: 3:00 PM EW-Zmghept-Gphbqczl 150 Work Phone: Start: 01-22-2021 FUV, Provider: Alex Trammell, Status: Pen, Time: 3:00 PM FUV, Provider: Alex Tramemll, Status: Pen, Time: 3:00 PM NQ-Pvrnmui-Ikdccsnb 150 Work Phone: Start: 12-25-2020 FUV, Provider: Alex Trammell, Status: Pen, Time: 3:00 PM FUV, Provider: Alex Trammell, Status: Pen, Time: 3:00 PM [facility] Work Phone: Start: 1963 Adult BMI Follow Up Plan Adult BMI Follow Up Plan [employer] Adrenocorticotropic hormone measurement [facility] Adrenocorticotropic hormone measurement [facility] Work Phone: Adrenocorticotropic hormone measurement [facility] Adrenocorticotropic hormone measurement [facility] Adrenocorticotropic hormone measurement [facility] Adrenocorticotropic hormone measurement [facility] Adrenocorticotropic hormone measurement [facility] Adrenocorticotropic hormone measurement [facility] Adrenocorticotropic hormone measurement [facility] Adrenocorticotropic hormone measurement [facility] Basophils [#/volume] in Blood by Automated count [facility] Basophils/100 leukoc ytes in Blood by Automated count [facility] Blood chemistry [facility] Blood chemistry [facility] Comprehensive metabo lic 1999 panel - Serum or Plasma [facility] Comprehensive metabo lic 1999 panel - Serum or Plasma [facility] Comprehensive metabo lic 1999 panel - Serum or Plasma [facility] Comprehensive metabo lic 1999 panel - Serum or Plasma [facility] Comprehensive metabo lic 1999 panel - Serum or Plasma [facility] Comprehensive metabo lic 1999 panel - Serum or Plasma [facility] Comprehensive metabo lic 1999 panel - Serum or Plasma [facility] Comprehensive metabo lic 1999 panel - Serum or Plasma [facility] Comprehensive metabo lic 1999 panel - Serum or Plasma [facility] Comprehensive metabo lic 1999 panel - Serum or Plasma [facility] Computed tomography for radiotherapy planning [facility] Cortisol [Mass/volum e] in Serum or Plasma [facility] Cortisol [Mass/volum e] in Serum or Plasma [facility] Cortisol [Mass/volum e] in Serum or Plasma [facility] Work Phone: Cortisol [Mass/volum e] in Serum or Plasma [facility] Cortisol [Mass/volum e] in Serum or Plasma [facility] CT Abdomen and Pelvi s W contrast IV [facility] CT Abdomen and Pelvi s W contrast IV [facility] CT Abdomen and Pelvi s W contrast IV [facility] CT Abdomen and Pelvi s W contrast IV [facility] CT Chest W contrast IV [facility] CT Chest W contrast IV [facility] CT Chest W contrast IV [facility] CT Chest W contrast IV [facility] Eosinophils/100 leuk ocytes in Blood by Automated count [facility] Erythrocyte distribu tion width [Ratio] by Automated count [facility] Erythrocyte sediment ation rate by Photometric method [facility] Erythrocytes [#/volu me] in Blood [facility] Hematocrit [Volume F raction] of Blood [facility] Hemoglobin [Mass/vol ume] in Blood [facility] Hepatic function panel [facility] Hepatic function panel [facility] Homogenous nuclear A b pattern [Titer] in Serum [facility] Work Phone: Lactate dehydrogenas e [Enzymatic activity/volume] in Unspecified specimen [facility] Lactate dehydrogenas e [Enzymatic activity/volume] in Unspecified specimen [facility] Lactate dehydrogenas e [Enzymatic activity/volume] in Unspecified specimen [facility] Lactate dehydrogenas e [Enzymatic activity/volume] in Unspecified specimen [facility] Lactate dehydrogenas e [Enzymatic activity/volume] in Unspecified specimen [facility] Leukocytes [#/volume ] corrected for nucleated erythrocytes in Blood by Automated coun [facility] Leukocytes [#/volume ] in Blood [facility] Lipase measurement [facility] Lipase measurement [facility] Lipase measurement [facility] Lymphocytes [#/volum e] in Blood by Automated count [facility] Lymphocytes/100 leuk ocytes in Blood by Automated count [facility] MCH [Entitic mass] b y Automated count [facility] MCHC [Mass/volume] b y Automated count [facility] MCV [Entitic volume] by Automated count [facility] Monocytes [#/volume] in Blood by Automated count [facility] Monocytes/100 leukoc ytes in Blood by Automated count [facility] Neutrophils [#/volum e] in Blood by Automated count [facility] Neutrophils/100 leuk ocytes in Blood by Automated count [facility] Nuclear Ab [Titer] in Serum [facility] Work Phone: Nucleated erythrocyt es [Presence] in Blood by Automated count [facility] Patient Education [facility] Work Phone: Platelet mean volume [Entitic volume] in Blood by Automated count [facility] Platelets [#/volume] in Blood [facility] Thyrotropin [Units/v olume] in Serum or Plasma [facility] Thyrotropin [Units/v olume] in Serum or Plasma [facility] Thyrotropin [Units/v olume] in Serum or Plasma [facility] Thyrotropin [Units/v olume] in Serum or Plasma [facility] Thyrotropin [Units/v olume] in Serum or Plasma [facility] Thyrotropin [Units/v olume] in Serum or Plasma [facility] Thyrotropin [Units/v olume] in Serum or Plasma [facility] Thyroxine (T4) free [Mass/volume] in Serum or Plasma [facility] Thyroxine (T4) free [Mass/volume] in Serum or Plasma [facility] Work Phone: Thyroxine (T4) free [Mass/volume] in Serum or Plasma [facility] Thyroxine (T4) free [Mass/volume] in Serum or Plasma [facility] Thyroxine (T4) free [Mass/volume] in Serum or Plasma [facility] Thyroxine (T4) free [Mass/volume] in Serum or Plasma [facility] Ultrasonic guidance for needle biopsy [facility] Immunizations Immunization Date Immunization Notes Care Provider Fa [facility] 1945 pneumococcal conjuga te vaccine, 7 valent Quentin Fitzpatrick Dept[facility] of Dermatology Payers Date Payer Category Payer Self-pay [id number] 2022 Medicare [id number] Private Health Insurance [id number] 1945 Unknown [id number] 1945 Unknown [id number] 1945 Unknown [id number] 1945 Unknown [id number] 1945 Unknown [id number] 1945 Unknown [id number] 1945 Unknown [id number] 1945 Unknown [id number] Unknown Unknown HCAP/HFA/FAP Active [id number] Unknown [id number] Unknown [id number] Social History Date Type Detail Facility Start: 10-23-2020 Dept. of Dermatology Start: 1945 Sex Assigned At Female [facility] Start: 10-07-2021 End: 06-17-2022 Tobacco smoking status NHIS Never smoked tobacco (finding) [facility] Start: 06-17-2022 End: 09-30-2023 Sex Assigned At [facility] Start: 06-17-2022 Tobacco use and exposure Smokeless tobacco non-user [facility] Start: 02-06-2023 End: 09-30-2023 Alcohol intake Current drinker of alcohol (finding) [facility] Start: 06-17-2022 End: 09-30-2023 History of Social function [facility] Do you belong to any clubs or organizations such as scientologist groups, unions, fraternal or athletic groups, or school groups? Yes [facility] Are you now , , , , never or living with a partner? [facility] How often to you hav e a drink containing alcohol? Monthly or less [facility] How many standard dr inks containing alcohol do you have on a typical day? 1 or 2 [facility] How often do you hav e 6 or more drinks on 1 occasion? Never [facility] How hard is it for y ou to pay for the very basics like food, housing, medical care, and heating Not hard at all [facility] Do you feel stress - tense, restless, nervous, or anxious, or unable to sleep at night because your mind is troubled all the time - these days [OSQ] Only a little [facility] Start: 06-17-2022 Alcohol Comment rarely [facility] [employer] Start: 1945 Sex Assigned At Not on file [facility] Has the electric, [employer] s, oil, or water company threatened to shut off services in your home in past 12Mo No [facility] Goals Date Patient Goal Desired Activity /State Clinical Notes 12-04-2012 to 09-30-2023 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, [employer] INST[employer]ER - 09/30/2023 4:00 PM Madonna Muller DO - 09/15/2023 4:00 PM EST Note Date & Type Note Facility 09-30-2023 History of Present illness Narrative [address] [facility] [id number] Patient: Theresa Luu Date of : 1945 Encounter Date: 09/30/2023 History of Present Illness: The patient is a 77 y.o. female, an established patient, and is here for Chief Complaint Patient presents with Follow-up . HPI Pt was reaching to get her crock pot out of a bottom cupboard on 09/21/23 and hyperextended her left thumb to keep herself from falling. The pain was severe and did not improve over the next 48 hrs so she went to [facility] ER on 09/23/23. ER placed a supportive brace on her wrist and told her to ice and use tylenol, xray was neg. She has been doing this and the pain is still severe. She is wondering what else she can do. Problem List Items Addressed This Visit None Visit Diagnoses Injury of left wrist, initial encounter - Primary Relevant Orders X-ray wrist left minimum 3 views Past Medical, Family, and Social History Update: The following portions of the patient's history were reviewed and updated as appropriate: allergies, current medications, past family history, past medical history, past social history, past surgical history and problem list. Past Medical History: Diagnosis Date Cancer ([facility]) Hyperlipidemia Hypertension Obesity Past Surgical History: Procedure Laterality Date BREAST SURGERY LYMPH NODE BIOPSY Current Outpatient Medications Medication Sig Dispense Refill ascorbic acid (VITAMIN C) 500 mg tablet Take 1 tablet (500 mg total) by mouth in the morning. 100 tablet 0 cyanocobalamin (VITAMIN B-12) 100 MCG tablet Take 1 tablet (100 mcg total) by mouth in the morning. 100 tablet 0 hydroCHLOROthiazide (HYDRODIURIL) 25 mg tablet TAKE 1 TABLET BY MOUTH DAILY 30 tablet 1 potassium chloride (KLOR-CON M 10) 10 MEQ CR tablet Take 1 tablet (10 mEq total) by mouth in the morning. 30 tablet 5 rosuvastatin (CRESTOR) 10 mg tablet TAKE 1 TABLET BY MOUTH EVERY DAY 90 tablet 1 diclofenac sodium (VOLTAREN) 1 % gel Apply 2 g topically in the morning and 2 g at noon and 2 g in the evening and 2 g before bedtime. 100 g 0 predniSONE (DELTASONE) 20 mg tablet Take 1 tablet (20 mg total) by mouth in the morning and 1 tablet (20 mg total) before bedtime. Do all this for 5 days. 10 tablet 0 No current facility-administered medications for this visit. (All medications reviewed and updated by provider since last office visit or hospitalization) Allergies: Penicillins Tobacco History: Social History Tobacco Use Smoking Status Never Smokeless Tobacco Never (If patient a smoker, smoking cessation counseling offered) Social History: Social History Substance and Sexual Activity Alcohol Use Yes Comment: rarely Review of Systems: Review of Systems Constitutional: Negative. Respiratory: Negative. Cardiovascular: Negative. Musculoskeletal: Positive for arthralgias, joint swelling and myalgias. Neurological: Negative. Physical Exam: BP 120/60 (BP Site: Left Arm, BP Postition: Sitting) Pulse 94 Temp 37.3 C (99.2 F) (Tympanic) Ht 157.5 cm (5' 2 ) Wt 85.4 kg (188 lb 3.2 oz) SpO2 96% BMI 34.42 kg/m Physical Exam Vitals reviewed. Constitutional: Appearance: Normal appearance. She is obese. HENT: Head: Normocephalic and atraumatic. Musculoskeletal: Left wrist: Tenderness (tenderness on palpation thumb side to wrist) and snuff box tenderness present. No swelling, deformity, effusion or crepitus. Decreased range of motion. Normal pulse. Comments: Wearing supportive wrist brace Skin: Capillary Refill: Capillary refill takes less than 2 seconds. Neurological: General: No focal deficit present. Mental Status: She is alert and oriented to person, place, and time. Sensory: Sensation is intact. Motor: No weakness. Gait: Gait normal. Psychiatric: Mood and Affect: Mood normal. Behavior: Behavior normal. Assessment and Plan: Theresa was seen today for follow-up. Diagnoses and all orders for this visit: Injury of left wrist, initial encounter - X-ray wrist left minimum 3 views; Future Other orders - predniSONE (DELTASONE) 20 mg tablet; Take 1 tablet (20 mg total) by mouth in the morning and 1 tablet (20 mg total) before bedtime. Do all this for 5 days. - diclofenac sodium (VOLTAREN) 1 % gel; Apply 2 g topically in the morning and 2 g at noon and 2 g in the evening and 2 g before bedtime. Follow-up: Should have repeat xray of wrist. May use topical NSAID, continue RICE and given short burst steroids as she states tylenol is not really working. She was offered ortho referral for possible injection/other interventions. She would like to see if the above measures will help first. She was encouraged to wear the brace for support for at least another month. RTO for routine appt or let us know if she decides to see ortho. IRMA MARTINES APRN-CNP 10/04/23 1234 documented in this encounter [facility] 09-15-2023 History of Present illness Narrative Subjective [...] hypertension with chronic kidney disease, stage III ([facility]) - Basic Metabolic Panel; Future - CBC; Future - Magnesium; Future - Parathyroid Hormone, intact; Future - Phosphorus; Future - Vitamin D 25 hydroxy; Future - Uric acid; Future Her blood pressure is essentially at goal. Her stage 3 chronic kidney disease was discussed. She is using Advil axwd-uip-vmjcnie and I recommended she use Tylenol instead to help protect her kidneys. She was given a written note with these instructions. Check chronic kidney disease labs. Hyperlipidemia, unspecified hyperlipidemia type - Lipid panel; Future Check lipids. Malignant melanoma of left lower leg (CMS-HCC) Follow up with specialists as directed. Labs [...] and high cholesterol. documented in this encounter [employer] 02-13-2023 Progress note Note Date/Time January 27, 2023 3:58pm [facility] [address] [place] [address] Progress Note Signed Patient: Theresa Luu MR#: [id number] : 1945 Acct:[id number] Age/Sex: 77 / F Adm Date: 3 Loc: XT Room: Type: [facility] RCR Attending Dr: Sly Benson II DO Copies to: ~ Date of Service: 01/27/2023 Subjective History of Present Illness HPI: Madison is seen during immunotherapy today and we continue our discussion of goals of care/advance care planning. She has reviewed the making choices booklet and is planning to meet with an traffic law attorney to complete financial POA and business [...] H 96 [facility] 01/27/23 10:01/27/23 10:01/27/23 10:23 01/27/23 10:23 01/27/23 10:23 01/27/23 10:23 Patient was seen by Kristen Lacy, nurse practitioner. I reviewed the above note. Documented By: Kimber Lacy APRN 01/27/23 1556 Signed By: <Electronically signed by ANTOINETTE Lacy> 01/27/23 1558 <Electronically signed by DO Efren Burris> 02/13/[address] [facility] Work Phone: 1(493) 503-710807-18-2023 Evaluation note* Encounter Date Diagnosis Assessment Notes [...] of the order given to the patient. [facility] Other 06-20-2023 Progress note Author Senia Montez [facility] December 30, 2022 11:06am Note Date/Time December 30, 2022 8:35 am [facility] [place] [address] Hem/Onc Follow Up Note - OP Signed Patient: Theresa Luu MR#: [id number] : 1945 Acct:[id number] Age/Sex: 77 / F Type: REG RCR Copies to: DO Alex Acuña MD, BRIGITTE, DO~ Date of Service: 12/30/2022 Time of [...] leg melanoma removed by Dr. Trammell at [facility] in November 162020 with sentinel node [...] and has CT scans scheduled for at [facility]. She is doing well, no major [...] for coordination of care (as documented) and quau-ys-rlyz counseling of patient and/or family. [facility] - Medical History Medical History: Medical History [...] DD/ Signed By: <Electronically signed by ANTOINETTE Senia Montez> 12/30/22 1102 [facility] Work Phone: 1([phone]) 393-736504-24-2023 Progress note Author Sly Benson [facility] November 03, 2022 10:27am Note Date/Time November 03, 2022 10: 22am [facility] [place] [address] Hem/Onc Follow Up Note - OP Signed Patient: Theresa Luu MR#: [id number] : 1945 Acct:[id number] Age/Sex: 77 / F Type: REG RCR [...] Up Instructions: cont monthly nivolumab. f/u with [facility] [employer] [facility] in 2 months. cbc, cmp, tsh monthly. [...] leg melanoma removed by Dr. Trammell at [facility] in November 162020 with sentinel node [...] and has CT scans scheduled for at [facility]. She is doing well, no major [...] for coordination of care (as documented) and sxqd-ef-itlv counseling of patient and/or family. [facility] - Medical History Medical History: Medical History [...] % (Auto) 59.6, Lymph % (Auto) 26.5, Harris % (Auto) 11.2, Eos % (Auto) 1.8, Baso % (Auto) 0.9, Nucleat RBC Rel Count 0.0, Neut # (Auto) 4.0, Lymph # (Auto) 1.8, Harris # (Auto) 0.8, Eos # (Auto) 0.1, [...] by Sly Benson II, DO> 11/03/[address] [facility] Work Phone: 1(960) 753-575603-27-2023 Progress note Author Zenobia Parker [facility] October 06, 2022 11:42am Note Date/Time October 06, 2022 11: 28am [facility] [place] [id number] Hem/Onc Follow Up Note - OP Signed Patient: Theresa Luu MR#: [id number] : 1945 Acct:[id number] Age/Sex: 77 / F Type: REG RCR [...] leg melanoma removed by Dr. Trammell at [facility] in November 162020 with sentinel node [...] and has CT scans scheduled for at [facility]. She is doing well, no major [...] review of systems is negative. [facility] - Medical History Medical History: Medical History [...] for coordination of care (as documented) and xbjv-cx-hxta counseling of patient and/or family. Dictated By: Zenobia Parker APRN DD/ 26 Signed By: <Electronically signed by ANTOINETTE Parker> 10/06/[address] [facility] Work Phone: 1(522) 250-917903-20-2023 Progress note Author Bebeto Pandya [facility] September 29, 2022 1:11pm Note Date/Time September 29, 2022 9:4 5am [facility] [place] [address] Rad Onc Follow Up Note - OP Signed Patient: Theresa Luu MR#: [id number] : 1945 Acct:[id number] Age/Sex: 76 / F Type: REG RCR [...] a left lower leg melanoma removed at [facility] in November 162020 with sentinel node [...] get her first maintenance dose of the [place] on August 11, [address]. [address] [...] signed by Bebeto Pandya MD> 09/29/22 1311 [facility] Work Phone: 1(645) 788-766302-27-2023 Progress note Author Sly Benson [facility] September 08, 2022 10:18am Note Date/Time September 08, 2022 10:08am [facility] [address] [address] Hem/Onc Follow Up Note - OP Signed Patient: Theresa Luu MR#: [id number] : 1945 Acct:[id number] Age/Sex: 76 / F Type: REG RCR [...] leg melanoma removed by Dr. Trammell at [facility] in November 162020 with sentinel node [...] and has CT scans scheduled for at [facility]. She is doing well, no major [...] for coordination of care (as documented) and gsvm-hc-lmad counseling of patient and/or family. [facility] - Medical History Medical History: Medical History [...] Signed By: <Electronically signed by Sly Benson II DO> 09/08/[address] [facility] Work Phone: 1(223) 180-332601-31-2023 Consult note Author Bebeto Pandya [facility] August 12, 2022 1:39pm Note Date/Time August 12, 2022 8 :51am [facility] [place] [id number] Rad Onc Consult Note - OP Signed Patient: Theresa Luu MR#: [id number] : 1945 Acct:[id number] Age/Sex: 76 / F Type: REG RCR Copies to: DO Alex Acuña MD, II, DO~ Assessment & Plan (1) Inguinal adenopathy Plan: CT simulation-plan for palliative radiation to the left inguinal ztjfzjkoutorgfa95 Luis in 5 fractions delivered every other [...] a left lower leg melanoma removed at [facility] in November 162020 with sentinel node [...] get her first maintenance dose of the [place] on August 11, 2022. Her repeat CT [...] denies any other pelvic complaints. [facility] - Medical History Medical History: Medical History [...] signed by Bebeto Pandya MD> 08/12/[address] [facility] Work Phone: 1(923) 760-489001-30-2023 Progress note Author Sly Benson [facility] August 11, 2022 11:03am Note Date/Time August 11, 2022 1 0:48am [facility] [place] [place] [address] Hem/Onc Follow Up Note - OP Signed Patient: Theresa Luu MR#: [id number] : 1945 Acct:[id number] Age/Sex: 76 / F Type: REG RCR [...] leg melanoma removed by Dr. Trammell at [facility] in November 162020 with sentinel node [...] and has CT scans scheduled for at [facility]. She is doing well, no major [...] maybe 3 days. worse after hot showers. [employer] really works for this. 08/11/22 She is [...] for coordination of care (as documented) and aizu-ss-xsxj counseling of patient and/or family. [facility] - Medical History Medical History: Medical History [...] % (Auto) 58.6, Lymph % (Auto) 29.6, Harris % (Auto) 9.0, Eos % (Auto) 2.1, Baso % (Auto) 0.7, Nucleat RBC Rel Count 0.1, Neut # (Auto) 4.4, Lymph # (Auto) 2.2, Harris # (Auto) 0.7, Eos # (Auto) 0.2, [...] by Sly Benson II, DO> 08/11/[address] [facility] Work Phone: [phone]) 509-259612-12-2022 Progress note Author Syl Benson [facility] June 23, 2022 11:22am Note Date/Time June 23, 2022 11:18am [facility] [address] [address] Hem/Onc Follow Up Note - OP Signed Patient: Theresa Luu MR#: [id number] : 1945 Acct:[id number] Age/Sex: 76 / F Type: REG RCR Copies to: Yoni HollowayDO Alex hyatt MD~ Date of Service: 06/23/2022 Time of [...] f/u. cbc cmp, tsh priro to f/u (vika ok). - History of Present Illness Chief [...] leg melanoma removed by Dr. Trammell at [facility] in November 162020 with sentinel node [...] and has CT scans scheduled for at [facility]. She is doing well, no major [...] maybe 3 days. worse after hot showers. [employer] really works for this. - Physical Exam [...] for coordination of care (as documented) and snql-zd-oaub counseling of patient and/or family. [facility] - Medical History Medical History: Medical History [...] by Sly Benson II, DO> 06/23/22 1122 [facility] Work Phone: 1([phone]) 503-706912-12-2022 Progress note Author Sly Benson [facility] June 23, 2022 11:22am Note Date/Time June 23, 2022 11:18am [facility] [place] [id number] Hem/Onc Follow Up Note - OP Signed Patient: Theresa Luu MR#: [id number] : 1945 Acct:[id number] Age/Sex: 76 / F Type: REG RCR [...] f/u. cbc cmp, tsh priro to f/u (vika ok). - History of Present Illness Chief [...] leg melanoma removed by Dr. Trammell at [facility] in November 162020 with sentinel node [...] and has CT scans scheduled for at [facility]. She is doing well, no major [...] for coordination of care (as documented) and hypx-pi-ycxq counseling of patient and/or family. [facility] - Medical History Medical History: Medical History [...] by Sly Benson II, DO> 06/23/[address] [facility] Work Phone: [phone]) 743-552311-21-2022 Progress note Author Zenobia Parker [facility] June 02, 2022 11:05am Note Date/Time June 02, 2022 11:01am [facility] [address] [address] Hem/Onc Follow Up Note - OP Signed Patient: Theresa Luu MR#: [id number] : 1945 Acct:[id number] Age/Sex: 76 / F Type: REG RCR [...] leg melanoma removed by Dr. Trammell at [facility] in November 162020 with sentinel node [...] and has CT scans scheduled for at [facility]. She is doing well, no major [...] 10 point review of systems is negative. PMF - Medical History Medical History: Medical History [...] for coordination of care (as documented) and jwts-by-hnot counseling of patient and/or family. Dictated By: Zenobia Parker APRN DD/ 1058 Signed By: <Electronically signed by ANTOINETTE Parker> 06/02/[address] [facility] Work Phone: [phone]) 631-950911-21-2022 Progress note Author Zenobia Parker [facility] June 02, 2022 11:05am Note Date/Time June 02, 2022 11:01am [facility] [place] [place] [address] Hem/Onc Follow Up Note - OP Signed Patient: Theresa Luu MR#: [id number] : 1945 Acct:[id number] Age/Sex: 76 / F Type: REG RCR [...] leg melanoma removed by Dr. Trammell at [facility] in November 162020 with sentinel node [...] and has CT scans scheduled for at [facility]. She is doing well, no major [...] review of systems is negative. [facility] - Medical History Medical History: Medical History [...] for coordination of care (as documented) and xilj-eh-uosf counseling of patient and/or family. Dictated By: Zenobia Parker APRN DD/ 1059 Signed By: <Electronically signed by ANTOINETTE Parker> 06/02/[address] [facility] Work Phone: [phone]) 608-207810-21-2022 Progress note Author Sly Benson [facility] May 02, 2022 4:01pm Note Date/Time May 02, 2022 3 :52pm [facility] [address] [address] Hem/Onc Follow Up Note - OP Signed Patient: Theresa Luu MR#: [id number] : 1945 Acct:[id number] Age/Sex: 76 / F Type: REG RCR Copies to: Yoni Muller,DO Alex Trammell MD~ Date of Service: 05/02/2022 [...] leg melanoma removed by Dr. Trammell at [facility] in November 162020 with sentinel node [...] and has CT scans scheduled for at [facility]. She is doing well, no major [...] for coordination of care (as documented) and aqan-zh-jiml counseling of patient and/or family. [facility] - Medical History Medical History: Medical History (Last Reviewed 04/28/22 @ 08:09 by Bonnie Mistry RN) Basal cell carcinoma left mid upper back Cellulitis Essential hypertension Hyperlipidemia Malignant melanoma left distal lower anterior leg Malignant tumor of breast Skin graft disorder - Surgical History Surgical History: Surgical History (Last Reviewed 04/28/22 @ 08:09 by Bonnie Mistry, RN) H/O left mastectomy - Family History [...] Dictated By: Sly Benson II, DO DD/ 1543 Signed By: <Electronically signed by Sly Benson II, DO> 05/02/[address] [facility] Work Phone: 1(309) 888-381010-21-2022 Progress note Author Sly Benson [facility] May 02, 2022 4:01pm Note Date/Time May 02, 2022 3 :52pm [facility] [address] [address] Hem/Onc Follow Up Note - OP Signed Patient: Theresa Luu MR#: [id number] : 1945 Acct:[id number] Age/Sex: 76 / F Type: REG RCR Copies to: Yoni Muller,DO Alex Trammell MD~ Date of Service: 05/02/2022 [...] leg melanoma removed by Dr. Trammell at [facility] in November 162020 with sentinel node [...] and has CT scans scheduled for at [facility]. She is doing well, no major [...] for coordination of care (as documented) and mbga-gd-drwp counseling of patient and/or family. [facility] - Medical History Medical History: Medical History (Last Reviewed 04/28/22 @ 08:09 by Bonnie Mistry RN) Basal cell carcinoma left mid upper back Cellulitis Essential hypertension Hyperlipidemia Malignant melanoma left distal lower anterior leg Malignant tumor of breast Skin graft disorder - Surgical History Surgical History: Surgical History (Last Reviewed 04/28/22 @ 08:09 by Bonnie Mistry, RN) H/O left mastectomy - Family History [...] Dictated By: Sly Benson II, DO DD/ 2086 Signed By: <Electronically signed by Sly Benson II, DO> 05/02/22 1601 [facility] Work Phone: 1(321) 661-831710-15-2022 Progress note Author Sly Benson [facility] April 26, 2022 11:51am Note Date/Time April 21, 2022 9 :31am [facility] [address] [address] Hem/Onc Follow Up Note - OP Signed Patient: Theresa Luu MR#: [id number] : 1945 Acct:[id number] Age/Sex: 76 / F Type: REG RCR [...] leg melanoma removed by Dr. Trammell at [facility] in November 162020 with sentinel node [...] and has CT scans scheduled for at [facility]. She is doing well, no major [...] for coordination of care (as documented) and lauz-rw-vacx counseling of patient and/or family. [facility] - Medical History Medical History: Medical History [...] <Electronically signed by Sly Benson II, > 04/26/22 1157 [facility] Work Phone: 1(369) 468-377210-15-2022 Progress note Author Sly Benson [facility] April 26, 2022 11:51am Note Date/Time April 21, 2022 9 :31am [facility] [place] [address] Hem/Onc Follow Up Note - OP Signed Patient: Theresa Luu MR#: [id number] : 1945 Acct:[id number] Age/Sex: 76 / F Type: REG RCR [...] 4 doses per trial Cornelius et al [facility] 2019 Repeat imaging in September [...] leg melanoma removed by Dr. Trammell at [facility] in November 162020 with sentinel node [...] and has CT scans scheduled for at [facility]. She is doing well, no major [...] for coordination of care (as documented) and yqhh-db-fypj counseling of patient and/or family. [facility] - Medical History Medical History: Medical History [...] by Sly Benson II, DO> 04/26/[address] [facility] Work Phone: [phone]) [phone] Progress note Author Sly Benson [facility] November 04, 2021 7:49pm Note Date/Time October 25, 2021 9:5 8am [facility] [place] [id number] Hem/Onc Follow Up Note - OP Signed Patient: Theresa Luu MR#: [id number] : 1945 Acct:[id number] Age/Sex: 76 / F Type: REG RCR [...] leg melanoma removed by Dr. Trammell at [facility] in November 162020 with sentinel node [...] and has CT scans scheduled for at [facility]. She is doing well, no major [...] for coordination of care (as documented) and jqvq-dl-doko counseling of patient and/or family. [facility] - Medical History Medical History: Medical History [...] signed by Sly Benson II, DO> 11/04/211948 [facility] Work Phone: [phone]) [phone] Progress note Author Sly Benson [facility] November 04, 2021 7:49pm Note Date/Time October 25, 2021 9:5 8am [facility] [address] [address] Hem/Onc Follow Up Note - OP Signed Patient: Theresa Luu MR#: [id number] : 1945 Acct:[id number] Age/Sex: 76 / F Type: REG RCR Copies to: Yoni Larson YohanaDO Alex Trammell MD~ Date of Service: 10/25/2021 [...] leg melanoma removed by Dr. Trammell at [facility] in November 162020 with sentinel node [...] and has CT scans scheduled for at [facility]. She is doing well, no major [...] for coordination of care (as documented) and gxrz-ch-qfrh counseling of patient and/or family. [facility] - Medical History Medical History: Medical History [...] signed by Sly Benson II, DO> 11/04/21[address] [facility] Work Phone: 1([phone]) [phone] Progress note Author Sly Benson [facility] October 07, 2021 8:58am Note Date/Time October 07, 2021 8:2 8am [facility] [place] [place] [address] Hem/Onc Follow Up Note - OP Signed Patient: Theresa Luu MR#: [id number] : 1945 Acct:[id number] Age/Sex: 76 / F Type: REG RCR [...] leg melanoma removed by Dr. Trammell at [facility] in November 162020 with sentinel node [...] and has CT scans scheduled for at [facility]. She is doing well, no major [...] for coordination of care (as documented) and dcpl-lh-evez counseling of patient and/or family. [facility] - Medical History Medical History: Medical History [...] by Sly Benson II, DO> 10/07/[address] [facility] Work Phone: 1([phone]) [phone] Progress note Author Sly Benson [facility] October 07, 2021 8:58am Note Date/Time October 07, 2021 8:2 8am [facility] [place] [id number] Hem/Onc Follow Up Note - OP Signed Patient: Theresa Luu MR#: [id number] : 1945 Acct:[id number] Age/Sex: 76 / F Type: REG RCR [...] leg melanoma removed by Dr. Trammell at [facility] in November 162020 with sentinel node [...] and has CT scans scheduled for at [facility]. She is doing well, no major [...] for coordination of care (as documented) and jcum-pr-npiq counseling of patient and/or family. [facility] - Medical History Medical History: Medical History [...] Signed By: <Electronically signed by Sly Benson II DO> 10/07/21 0858 [facility] Work Phone: [phone]) 222-507205-07-2021 NotePROCEDURE DETAILS Preoperative Diagnosis: Melanoma of lower limb, C43.70 Postoperative Diagnosis: left lower leg me\lanoma Surgeon: Alex Trammell Resident/Fellow/Other Client Advocate: Bambi Ray Muhammad Procedure: 1. WIDE LOCAL [...] Aguilar MD Furlong, Dennis G, MD - [phone] [] Signatures/Attestation: Note Completion: Attending AttestationI was present for the entire procedure Electronic Signatures: Alex Trammell) (Signed 16-Nov-2020 14:13) Authored: Post-Operative Note, Chart Review, Note Completion Last Updated: 16-Nov-2020 14:13 by Alex Trammell)[facility] [place] NoteHistory & Physical Reviewed: I have [...] the note. I personally evaluated the patient [id number] Attending Provider Inpatient Certification StatementObservation patient/other outpatient visits Electronic Signatures: Alex Trammell) (Signed 16-Nov-2020 13:12) Authored: Note Completion Co-Signer: History & Physical Reviewed, ERAS, Consent, Note Completion Ct T[facility] (Resident)) (Signed 16-Nov-2020 10:36) Authored: History & Physical Reviewed, ERAS, Consent, Note Completion Last Updated: 16-Nov-2020 13:12 by Alex Trammell)[facility] [place] NoteAccession #: [id number] Pathologist: SURAJ MELGAR MD Date of Procedure: 10/16/2020 Date Received: 10/16/2020 Submitting Physician: ALEX TRAMMELL MD Location: [facility] Copy To/Referring/Attending: QUENTIN FITZPATRICK DO FINAL DIAGNOSIS 4 SLIDES, [facility] [facility], #[id number] [A] (BX: 09/28/2020) SKIN, LEFT DISTAL PRETIBIAL [...] REPORT A. 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 Slides received on specimen A only. Slide/Block Description 4 SLIDES, [id number] A. Keep Slides: N Slides Returned: N Personal Consult: Redwood LLCComment on above:Performed By: #### D #### [id number] History general Narrative - Reported* Type Description Date Medical History breast cancer (1996) Medical History HTN Medical History hyperlipidemia Medical History basal cell carcinoma upper back (September 2020) Medical History metastatic malignant melanoma [place] Other 04-20-2014 History of Present illness Narrative* [...] in a prior mole. Thepatient moved from [place] 8 years ago and has not established [...] She reports that shehas not seen her technical documentation specialist since prior to the cancer treatment. [...] the knee to the foot. 1+ edema. DW-Qcgxihd-Wkvjk Main Work Phone: [phone] History of Present illness Narrative* Ms. Luu [...] in a prior mole. Thepatient moved from [place] 8 years ago and has not established [...] She reports that shehas not seen her technical documentation specialist since prior to the cancer treatment. [...] the knee to the foot. 1+ edema. [facility] Work Phone: [phone] History of Present illness Narrative* Ms. Luu [...] in a prior mole. Thepatient moved from [place] 8 years ago and has not established [...] the knee to the foot. 1+ edema. HY-Cqvaydc-Weqbpsrg 150 Work Phone: [phone] History of Present illness Narrative* Ms. Luu [...] in a prior mole. Thepatient moved from [place] 8 years ago and has not established [...] the knee to the foot. 2+ edema. [facility] [employer] Work Phone: [phone] History of Present illness Narrative* Ms. Luu [...] in a prior mole. Thepatient moved from [place] 8 years ago and has not established [...] the knee to the foot. 2+ edema. [facility] Work Phone: evaluation noteN/ADept. of Dermatology Evaluation note* Diagnosis Onset Date Resolution Status Melanoma acute [facility] Work Phone: Evaluation noteNo assessment information available [facility] Work Phone: Evaluation note* Diagnosis Onset Date Resolution Status Melanoma acute Inguinal adenopathy acute [facility] Work Phone: Evaluation note* Diagnosis Onset Date Resolution Status Inguinal adenopathy acute Melanoma acute [facility] Work Phone: Evaluation note* Diagnosis Onset Date Resolution Status Encounter for antineoplastic immunotherapy acute Inguinal adenopathy acute Melanoma acute [facility] Work Phone: evaluation note* Diagnosis Onset Date Resolution Status Melanoma acute Encounter for antineoplastic immunotherapy acute Inguinal adenopathy acute Melanoma acute [facility] Work Phone: Evaluation note* Diagnosis Essential (primary) hypertension Unspecified essential hypertension [facility] Diagnosis Benign hypertension with chronic kidney disease, stage III (CMS-HCC)- Primary Hyperlipidemia, unspecified hyperlipidemia type Malignant melanoma of left lower leg (CMS-HCC) Class 2 severe obesity due to excess calories with serious comorbidity and body mass index (BMI) of 35.0 to 35.9 in adult [facility] Diagnosis Injury of left wrist, initial encounter- Primary [facility] instructionsAmb[facility] Orders* Chemotherapy Class Time Frame: 1 Day, Location: Determined By Patient [facility] Work Phone: Hospital Discharge instructionsAmbulatory Orders* Oncology Histology Time Frame: 1 Day, Location: Determined By Patient [facility] Work Phone: InstructionsNot on filedocumented in this encounter [facility] on filedocumented in this encounter [facility]ructionsNot on filedocumented in this encounter [facility]* Attachments The following attachments cannot be sent through Care Everywhere. * Common wrist injuries (Korean) documented in this [facility]Pro[facility] SystemProgress note Author Sly Benson [facility] May 02, 2022 4:01pm Note Date/Time May 02, 2022 3 :52pm [facility] [place] [place] [address] Hem/Onc Follow Up Note - OP Signed Patient: Theresa Luu MR#: [id number] : 1945 Acct:[id number] Age/Sex: 76 / F Type: REG RCR [...] leg melanoma removed by Dr. Trammell at [facility] in November 162020 with sentinel node [...] and has CT scans scheduled for at [facility]. She is doing well, no major [...] for coordination of care (as documented) and javk-if-lxnp counseling of patient and/or family. [facility] - Medical History Medical History: Medical History [...] by Sly Benson II, DO> 05/02/22 1601 [facility] Work Phone: Progress note Author Zenobia Parker [facility] June 02, 2022 11:05am Note Date/Time June 02, 2022 11:01am [facility] [place] [address] Hem/Onc Follow Up Note - OP Signed Patient: Theresa Luu MR#: [id number] : 1945 Acct:[id number] Age/Sex: 76 / F Type: REG RCR [...] leg melanoma removed by Dr. Trammell at [facility] in November 162020 with sentinel node [...] and has CT scans scheduled for at [facility]. She is doing well, no major [...] review of systems is negative. [facility] - Medical History Medical History: Medical History [...] for coordination of care (as documented) and ialx-cm-tqvo counseling of patient and/or family. Dictated By: Zenobia Parker APRN DD/ 1058 Signed By: <Electronically signed by ANTOINETTE Parker> 06/02/[address] [facility] Work Phone: Progress note Author Sly Benson [facility] June 23, 2022 11:22am Note Date/Time June 23, 2022 11:18am [facility] [place] [id number] Hem/Onc Follow Up Note - OP Signed Patient: Theresa Luu MR#: [id number] : 1945 Acct:[id number] Age/Sex: 76 / F Type: REG RCR [...] f/u. cbc cmp, tsh priro to f/u (vika ok). - History of Present Illness Chief [...] leg melanoma removed by Dr. Trammell at [facility] in November 162020 with sentinel node [...] and has CT scans scheduled for at [facility]. She is doing well, no major [...] for coordination of care (as documented) and swqc-fq-pgfp counseling of patient and/or family. [facility] - Medical History Medical History: Medical History [...] by Sly Benson II, DO> 06/23/[address] [facility] Work Phone: Progress note Author Sly Benson [facility] August 11, 2022 11:03am Note Date/Time August 11, 2022 1 0:48am [facility] [place] [place] [address] Hem/Onc Follow Up Note - OP Signed Patient: Theresa Luu MR#: [id number] : 1945 Acct:[id number] Age/Sex: 76 / F Type: REG RCR [...] leg melanoma removed by Dr. Trammell at [facility] in November 162020 with sentinel node [...] and has CT scans scheduled for at [facility]. She is doing well, no major [...] for coordination of care (as documented) and ihsr-eo-fwmw counseling of patient and/or family. [facility] - Medical History Medical History: Medical History [...] % (Auto) 58.6, Lymph % (Auto) 29.6, Harris % (Auto) 9.0, Eos % (Auto) 2.1, Baso % (Auto) 0.7, Nucleat RBC Rel Count 0.1, Neut # (Auto) 4.4, Lymph # (Auto) 2.2, Harris # (Auto) 0.7, Eos # (Auto) 0.2, [...] by Sly Benson II, DO> 08/11/[address] [facility] Work Phone: Progress note Author Slycm Benson [facility] September 08, 2022 10:18am Note Date/Time September 08, 2022 10:08am [facility] [place] [place] [address] Hem/Onc Follow Up Note - OP Signed Patient: Theresa Luu MR#: [id number] : 1945 Acct:[id number] Age/Sex: 76 / F Type: REG RCR [...] leg melanoma removed by Dr. Trammell at [facility] in November 162020 with sentinel node [...] and has CT scans scheduled for at [facility]. She is doing well, no major [...] maybe 3 days. worse after hot showers. [employer] really works for this. 08/11/22 She is [...] for coordination of care (as documented) and tbub-hb-surs counseling of patient and/or family. [facility] - Medical History Medical History: Medical History [...] by Sly Benson II, DO> 09/08/[address] [facility] Work Phone: Progress note Author Senia Montez [facility] December 30, 2022 11:06am Note Date/Time December 30, 2022 8:35 am [facility] [place] [address] Hem/Onc Follow Up Note - OP Signed Patient: Theresa Luu MR#: [id number] : 1945 Acct:[id number] Age/Sex: 77 / F Type: REG RCR [...] left lower leg melanoma removed by Dr. rTammell at [facility] in November 162020 with sentinel node [...] and has CT scans scheduled for at [facility]. She is doing well, no major [...] for coordination of care (as documented) and cuus-ey-rcla counseling of patient and/or family. [facility] - Medical History Medical History: Medical History [...] <Electronically signed by ANTOINETTE Montez> 12/30/[address] [facility] Work Phone: Progress note Author Sly Benson [facility] March 06, 2023 2:40pm Note Date/Time March 06, 2023 2: 37pm [facility] [place] [address] Hem/Onc Follow Up Note - OP Signed Patient: Theresa Luu MR#: [id number] : 1945 Acct:[id number] Age/Sex: 77 / F Type: REG RCR [...] leg melanoma removed by Dr. Trammell at [facility] in November 162020 with sentinel node [...] and has CT scans scheduled for at [facility]. She is doing well, no major [...] for coordination of care (as documented) and zjfo-qy-qyen counseling of patient and/or family. [facility] - Medical History Medical History: Medical History [...] % (Auto) 66.0, Lymph % (Auto) 23.1, Harris % (Auto) 8.4, Eos % (Auto) 1.7, Baso % (Auto) 0.8, Nucleat RBC Rel Count 0.0, Neut # (Auto) 4.1, Lymph # (Auto) 1.4, Harris # (Auto) 0.5, Eos # (Auto) 0.1, [...] by Sly Benson II, DO> 03/06/[address] [facility] Work Phone: Progress note Author Sly Benson [facility] August 07, 2023 11:49am Note Date/Time August 07, 2023 1 1:21am [facility] [place] [address] Cancer Center Note Signed Patient: Theresa Luu MR#: [id number] : 1945 Acct:[id number] Age/Sex: 77 / F Type: REG AMB [...] leg melanoma removed by Dr. Trammell at [facility] in November 162020 with sentinel node [...] and has CT scans scheduled for at [facility]. She is doing well, no major [...] maybe 3 days. worse after hot showers. 91Jin[employer] really works for this. 08/11/22 She is [...] labs and imaging for review. [facility] Medical History Medical History Malignant tumor of [...] by Sly Benson II, DO> 08/07/23 1149 [facility] Work Phone: Reason for referral (narrative)* Name Reason for referral NA NA Dept. of Dermatology Assessments N/A Reason for Referral Name Reason for referral NA NA Summary Purpose Family History Relationship Condition Age at Onset Recorded Date/T clari Not Specified No pertinent family history Unknown Advance Directives Advance Directive Response Recorded Date/ Time Advance [...] section and content) DATE CREATED AUTHOR 11/07/2020 [facility] DATE CREATED AUTHOR AUTHOR'S ORGANIZ ATION 12/04/2020 [facility] DATE CREATED AUTHOR AUTHOR'S ORGANIZ ATION 12/10/2020 [facility] DATE CREATED AUTHOR AUTHOR'S ORGANIZ ATION 05/12/2021 [facility] DATE CREATED AUTHOR AUTHOR'S ORGANIZ ATION 09/23/2021 [facility] DATE CREATED AUTHOR AUTHOR'S ORGANIZ ATION 09/28/2021 [facility] DATE CREATED AUTHOR AUTHOR'S ORGANIZ ATION 10/06/2022 [facility] DATE CREATED AUTHOR AUTHOR'S ORGANIZ ATION 10/03/2023 [facility] Care Teams (unrecognized sec tion and content) Team Status: Active Member Role Status Dates Ynoi Muller DO Primary Care Provider Active Team [...] Inactive Member Role Status Dates Yoni Muller Primary Care Provider Active Sly Benson II, DO Attending Provider Active 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 Relationship Specialty Start Date End Date Yoni Muller DO [address], [place] [address] PCP - General Family Medicine 04/21/22 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 Relationship Specialty Start Date End Date Yoni Muller DO [address], [place] [address] PCP - General Family Medicine 04/21/22 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 [facility]. provides no warranty or guarantee of the accuracy or completeness of information in this document.
[2023-10-28 07:51] LABS: Basophils Percent Auto 0.4 % (0.2-2.0); Eosinophils Absolute Auto 0.1 10^3/uL (0.0-0.7); Eosinophils Percent Auto 2.4 % (0.9-7.0); Hematocrit 41.2 % (36.0-48.0); Hemoglobin 13.4 g/dL (12.0-16.0); Immature Granulocytes Abs Auto 0.02 10^3/uL (0.00-0.03); Immature Granulocytes Pct Auto 0.4 % (0.0-0.5); Lymphocytes Absolute Auto 1.6 10^3/uL (1.2-3.8); Lymphocytes Percent Auto 34.4 % (20.5-60.0); Mean Corpuscular HGB Conc 32.5 g/dL (29.9-35.2); Mean Corpuscular Volume 92.4 fL (81.0-99.0); Mean Platelet Volume 8.9 fL (9.5-13.5); Monocytes Absolute Auto 0.5 10^3/uL (0.3-0.8); Monocytes Percent Auto 9.9 % (1.7-12.0); Neutrophils Absolute Auto 2.4 10^3/uL (1.4-6.5); Neutrophils Percent Auto 52.5 % (43.0-75.0); Platelet Count 221 10^3/uL (150-450); Red Blood Count 4.46 10^6/uL (4.20-5.40); White Blood Count 4.5 10^3/uL (4.0-11.0)
[2023-10-28 08:51] LABS: Alanine Aminotransferase 39 U/L (14-59); Albumin Globulin Ratio 0.9; Albumin Level 3.2 g/dL (3.4-5.0); Alkaline Phosphatase 119 U/L (46-116); Anion Gap 9.7; Aspartate Amino Transferase 28 U/L (15-37); BUN Creatinine Ratio 20.5; Bilirubin Total 0.5 mg/dL (0.2-1.0); Calcium 9.5 mg/dL (8.5-10.1); Carbon Dioxide 30.8 mmol/L (21.0-32.0); Chloride 105 mmol/L (98-107); Estimated GFR (African America >60 (>=60); Estimated GFR (Non-African Ame >60 (>=60); Globulin 3.6 g/dL; Glucose 114 mg/dL (74-106); Lactate Dehydrogenase 189 U/L (81-234); Potassium 3.5 mmol/L (3.5-5.1); Sodium 142 mmol/L (136-145); Thyroid Stimulating Hormone 2.708 uIU/mL (0.358-3.740); Total Protein 6.8 g/dL (6.4-8.2)
[2023-10-28 08:54] LABS: Free T4 1.09 ng/dL (0.76-1.46)
[2023-10-29 13:11] LABS: ACTH, Plasma 41.3 pg/mL (7.2-63.3)
== END 2023-10-28 07:14 | disposition home or self-care (01) ==
LOC: LAB 07:14
PROVIDERS: PCP Family Medicine; Visit Provider Internal Medicine
DX: C43.9 Malignant melanoma of skin, unspecified (principal)
CPT/HCPCS: 36415; 80053; 82024; 83615; 84439; 84443; 85025

== ENCOUNTER 2023-11-25 07:46 | Outpatient (OUT) | payer MEDICARE, SELFPAY ==
[2023-11-25 08:37] LABS: Basophils Percent Auto 0.5 % (0.2-2.0); Eosinophils Absolute Auto 0.1 10^3/uL (0.0-0.7); Eosinophils Percent Auto 1.7 % (0.9-7.0); Hematocrit 41.3 % (36.0-48.0); Hemoglobin 13.8 g/dL (12.0-16.0); Immature Granulocytes Abs Auto 0.02 10^3/uL (0.00-0.03); Immature Granulocytes Pct Auto 0.3 % (0.0-0.5); Lymphocytes Absolute Auto 1.7 10^3/uL (1.2-3.8); Lymphocytes Percent Auto 27.7 % (20.5-60.0); Mean Corpuscular HGB Conc 33.4 g/dL (29.9-35.2); Mean Corpuscular Hemoglobin 29.9 pg (26.7-34.0); Mean Corpuscular Volume 89.4 fL (81.0-99.0); Mean Platelet Volume 9.4 fL (9.5-13.5); Monocytes Absolute Auto 0.5 10^3/uL (0.3-0.8); Monocytes Percent Auto 8.3 % (1.7-12.0); Neutrophils Absolute Auto 3.7 10^3/uL (1.4-6.5); Neutrophils Percent Auto 61.5 % (43.0-75.0); Platelet Count 205 10^3/uL (150-450); Red Blood Count 4.62 10^6/uL (4.20-5.40); Red Cell Distribution Width 12.9 % (11.0-15.0)
[2023-11-25 09:07] LABS: Alanine Aminotransferase 32 U/L (14-59); Albumin Level 3.3 g/dL (3.4-5.0); Alkaline Phosphatase 108 U/L (46-116); Anion Gap 11.4; Aspartate Amino Transferase 32 U/L (15-37); BUN Creatinine Ratio 18.8; Bilirubin Total 0.5 mg/dL (0.2-1.0); Calcium 9.3 mg/dL (8.5-10.1); Carbon Dioxide 29.9 mmol/L (21.0-32.0); Chloride 102 mmol/L (98-107); Estimated GFR (African America >60 (>=60); Estimated GFR (Non-African Ame >60 (>=60); Globulin 3.4 g/dL; Glucose 140 mg/dL (74-106); Lactate Dehydrogenase 183 U/L (81-234); Potassium 3.3 mmol/L (3.5-5.1); Sodium 140 mmol/L (136-145); Thyroid Stimulating Hormone 2.841 uIU/mL (0.358-3.740); Total Protein 6.7 g/dL (6.4-8.2)
[2023-11-25 12:08] LABS: Free T4 1.07 ng/dL (0.76-1.46)
[2023-11-26 14:10] LABS: ACTH, Plasma 25.3 pg/mL (7.2-63.3)
== END 2023-11-25 07:47 | disposition home or self-care (01) ==
LOC: LAB 07:48
PROVIDERS: PCP Family Medicine; Visit Provider Internal Medicine
DX: C43.9 Malignant melanoma of skin, unspecified (principal)
CPT/HCPCS: 36415; 80053; 82024; 83615; 84439; 84443; 85025

== ENCOUNTER 2023-12-23 07:05 | Outpatient (OUT) | payer MEDICARE, SELFPAY ==
--- OUTSIDE RECORDS SUMMARY | 2023-12-23 07:09 | XMS_ITS | CCD ---
Author Organization [facility] Providers Care Funeral Home Attendant Name Role Phone Quentin Fitzpatrick Unavailable Unavailable Yohana Yoni Larson Unavailable Unavailable Unavailable Quentin Fitzpatrick Unavailable Unavailable DO Sly Benson II Attending Provider [phone] Yohana, DO [place] Primary Care Provider MD Alex Trammell Referring Provider DO Sly Benson II Attending Provider Yohana, Yoni Primary Care Provider MD Alex Trammell Referring Provider MD Alex Trammell Attending Provider Yohana, DO Yoni Primary Care Provider [phone] DO Sly Benson II Attending Provider MD Alex Trammell Referring Provider Yohana, Yoni Primary Care Provider MD Alex Trammell Attending Provider DO Sly Benson II Attending Provider MD Alex Trammell Referring Provider DO Sly Benson II Attending Provider MD Alex Trammell Referring Provider Yohana, Yoni Primary Care Provider MD Alex Trammell Attending Provider Kelley II, DO Sly J Attending Provider MD Alex Trammell Referring Provider MD Alex Trammell Referring Provider MD Alex Trammell Referring Provider Kelley II, DO Sly Jeffrey Attending Provider [phone] Furlong, DO Yoni Primary Care Provider MD Alex Trammell Referring Provider Kelley II, DO Sly Jeffrey Attending Provider Furlong, DO Yoni Primary Care Provider MD Alex Trammell Referring Provider [phone] Adamhilario II, DO Sly J Attending Provider Furlong, DO [place] Primary Care Provider MD Alex Trammell Referring Provider [phone] JASONICZ, SLY J Admitting Unavailable FURLONG, DR [...] Unavailable DR YONI MULLER Primary Care Unavailable ADAMJANETTEICZ, SLY J Attending Unavailable ADAMOWICZ, SLY J Admitting Unavailable ADAMOWICZ, SLY J Consulting Unavailable ADAMOWICZ, SLY J Attending Unavailable ADAMOWICZ, SLY J Admitting Unavailable ADAMOWICZ, SLY J Consulting Unavailable Adamowicz II, DO Sly J Attending Provider Yohana, DO [place] [facility] Care Provider MD Alex Trammell Referring Provider Kelley II, DO Sly Jeffrey Attending Provider [phone] oYhana, DO [place] [facility] Care Provider [phone] MD Alex Trammell Referring Provider Regino Kimber Unavailable Kelley II, DO Sly Jeffrey Attending Provider [phone] [facility], DO [place] [facility] Provider MD Alex Trammell Referring Provider Kelley II, DO Sly Jeffrey Attending Provider Yohana, DO [place] [facility] Provider MD Alex Trammell Referring Provider Kelley II, DO Sly Jeffrey Attending Provider Mortezaedmar, DO [place] [facility] Provider MD Alex Trammell Referring Provider [phone] MortezaYoni hyatt DO Primary Care Provider Kelley II, Sly J Admitting Unavaila ble Adamowicz II, Sly J Attending Unavaila ble Yoni Muller [facility] Unavailable Adamowkinsey II, Sly J Admitting Unavaila ble Adamowicz II, Sly Jeffrey Attending Unavaila Alex Baumann Referring Unavailab le Yoni Muller [facility] Unavailable Allergies Allergy Classification Reported Allergen(s) Allergy Type Date of Onset Reaction(s) Facility (3 sources) No Alert Propensity to adverse reactions to drug 1 [facility] (2 sources) Penicillin Drug Allergy Unknown [facility] Repository (4 sources) Penicillins Propensity to adverse reactions to drug 2 [facility] (1 source) Penicillins Drug allergy (disorder) 4 [facility] Repository Medications Current Medications Medication [...] or unspecified chronic kidney disease] 09-15-2023 Chronic Maintenance chemotherapy; radiotherapy (20 sources) Patient encounter [...] Classification Problem Date Documented Da te Episodic/Chronic Lymphadenitis (20 sources) Inguinal lymphadenopathy; Translations: [Localized enlarged lymph nodes] Onset: 08-07-2023 04-28-2022 Episodic Mood disorders (4 sources) Mood disorders Onset: 02-06-2023 Resolved: 09-30-2023 02-06-2023 Residual codes; unclassified (2 sources) No current problems or disability; Translations: [Other specified conditions influencing health status] Onset: 11-13-2020 Episodic Results Test Name Value Interpretation Reference Range Facility XR Wrist - left 3 ViewsOrder ed By: Caty Gaona on 2023 Radiology Study observation (narrative) [facility] XR Wrist - left 3 ViewsOrder ed By: Caty Gaona on 10-01-2023 [facility] Basic Metabolic Panelon Anion gap [Moles/Vol] 7 mmol/L 5 - 15 mmol/L [facility] Calcium [Mass/Vol] 9.5 mg/dL 8.5 - 10. 5 mg/dL [facility] Chloride [Moles/Vol] 101 mmol/L 98 - 10 9 mmol/L [facility] CO2 [Moles/Vol] 32 mmol/L 22 - 32 mmol/L [facility] Creatinine [Mass/Vol] 0.96 mg/dL 0.40 - 1.00 mg/dL [facility] Comment on above: METHOD TRACEABLE TO IDWI STANDARD eGFR (CKD-EPI)non-race dependent 61 - PINF [facility] Comment on above: Reported eGFR is based on the CKD-EPI 2020 equation that does not use a race coefficient. Glucose [Mass/Vol] 107 mg/dL High 65 - 99 mg/dL [facility] Interpretation and review of laboratory results Abnormal [facility] Potassium [Moles/Vol] 3.3 mmol/L Low 3.5 - 5.0 mmol/L [facility] Sodium [Moles/Vol] 140 mmol/L 134 - 146 mmol/L [facility] Urea nitrogen [Mass/Vol] 22 mg/dL 5 - 27 mg/dL [facility] CBC without diffon Erythrocyte distribution width (RBC) [Ratio] 13.9 % 11.5 - 15.0 % [facility] Hematocrit (Bld) [Volume fraction] 39.4 % 35 - 47 % [facility] Hemoglobin (Bld) [Mass/Vol] 13.5 g/dL 11.7 - 15.5 g/dL [facility] MCH (RBC) [Entitic mass] 30.4 pg 27 - 34 pg [facility] MCHC (RBC) [Mass/Vol] 34.2 g/dL 32 - 3 6 g/dL [facility] MCV (RBC) [Entitic vol] 89 fL 80 - 100 fL [facility] Platelet mean volume (Bld) [Entitic vol] 7.9 fL 7 - 12 fL [facility] Platelets (Bld) [#/Vol] 202 10*3/uL [facility] RBC (Bld) [#/Vol] 4.43 10*6/uL [facility] WBC corrected for nucl RBC Auto (Bld) [#/Vol] 6.6 [facility] Lipid 1996 panelon 4 Cholesterol [Mass/Vol] 154 mg/dL 150 - 200 mg/dL [facility] Cholesterol in HDL [Mass/Vol] 76 mg/dL 39 - PINF mg/dL [facility] Comment on above: HDL <40 mg/dL - High Risk HDL > or = 40mg/dL- Desirable HDL >60 mg/dL - Negative Risk Cholesterol in LDL [Mass/Vol] 52 mg/dL NINF - 130 mg/dL [facility] Comment on above: LDL <100 mg/dL - Desirable LDL >160 mg/dL - High Risk Cholesterol in VLDL [Mass/Vol] 26 mg/dL 0 - 30 mg/dL [facility] Cholesterol.total/Chol esterol in HDL [Mass ratio] 2.0 {ratio} 1.0 - 5.0 [facility] Triglyceride [Mass/Vol] 132 mg/dL 27 - 150 mg/dL [facility] Magnesiumon 09-15-2023 Magnesium [Mass/Vol] 1.9 mg/dL 1.8 - 2 .6 mg/dL [facility] No Panel Informationon 09-14 [facility] Parathyrin.intact [Mass/Vol] on 09-15-2023 [facility] Parathyroid Hormone, intacto n 09-15-2023 Parathyrin.intact [Mass/Vol] 36 pg/mL 12 - 88 pg/mL [facility] Phosphoruson 09-15-2023 Phosphate [Mass/Vol] 3.6 mg/dL 2.4 - 4 .9 mg/dL [facility] Uric acidon 09-15-2023 Urate [Mass/Vol] 5.4 mg/dL 2.6 - 7.2 mg/dL [facility] Vitamin D 25 hydroxyon 09-14 Vitamin D+Metabolites [Mass/Vol] 28.4 ng/mL Low 30 - 100 ng/mL [facility] Comment on above: Vitamin D status 25 [place] Vitamin D Deficiency <20 ng/mL Insufficiency 20-29 ng/mL Sufficiency 30-100 ng/mL Toxicity >100 ng/mL NOTE: A pediatric reference range has not been established by the employment manager of this kit. The [place] [employer] recommends a Vitamin D level of = or >20ng/mL in infants and children. Vitamin D+Metabolites [Mass/ Vol]on 09-15-2023 Interpretation and review of laboratory results Abnormal [facility] Complete Blood Count Auto Di ffon 08-07-2023 Basophils (Bld) [#/Vol] 0.0 10*3/uL Normal 0.0-0.2 [facility] Comment on above: Result Comment: PERF ORMED BY: [place] [address] [place] [address] PATHOLOGIST [employer] WAYLON SAUNDERS M.D. Performed By: #### R EDRAW LDH, REDRAW K #### [address] Basophils/100 WBC (Bld) 0.5 % Normal . [facility] Comment on above: Performed By: #### R EDRAW LDH, REDRAW K #### [address] Eosinophils (Bld) [#/Vol] 0.0 10*3/uL Normal 0.0-0.45 [facility] Comment on above: Performed By: #### R EDRAW LDH, REDRAW K #### [address] Eosinophils/100 WBC (Bld) 0.1 % Normal . [facility] Comment on above: Performed By: #### R EDRAW LDH, REDRAW K #### [address] Erythrocyte distribution width (RBC) [Ratio] 13.6 % Normal 11.9-15.3 [facility] Comment on above: Performed By: #### R EDRAW LDH, REDRAW K #### [address] Hematocrit (Bld) [Volume fraction] 37.0 % Normal 34.0-46.4 [facility] Comment on above: Performed By: #### R EDRAW LDH, REDRAW K #### [address] Hemoglobin (Bld) [Mass/Vol] 12.8 g/dL Normal 11.8-15.4 [facility] Comment on above: Performed By: #### R EDRAW LDH, REDRAW K #### [address] Lymphocytes (Bld) [#/Vol] 1.1 10*3/uL Normal 1.00-4.8 [facility] Comment on above: Performed By: #### R EDRAW LDH, REDRAW K #### [address] Lymphocytes/100 WBC (Bld) 13.9 % Normal . [facility] Comment on above: Performed By: #### R EDRAW LDH, REDRAW K #### [address] MCH (RBC) [Entitic mass] 30.2 pg Normal 24.7-34.3 [facility] Comment on above: Performed By: #### R EDRAW LDH, REDRAW K #### [address] MCV (RBC) [Entitic vol] 87.3 fL Normal 80-100 [facility] Comment on above: Performed By: #### R EDRAW LDH, REDRAW K #### [address] Mean Corpuscular HGB Conc 34.6 g/dL Normal 32.0-35.0 [facility] Comment on above: Performed By: #### R EDRAW LDH, REDRAW K #### [place] [address] [place] Monocytes (Bld) [#/Vol] 0.5 10*3/uL Normal 0.0-0.8 [facility] Comment on above: Performed By: #### R EDRAW LDH, REDRAW K #### [address] Monocytes/100 WBC (Bld) 6.4 % Normal . [facility] Comment on above: Performed By: #### R EDRAW LDH, REDRAW K #### [place] [address] [place] Neutrophils (Bld) [#/Vol] 6.0 10*3/uL Normal 1.8-7.7 [facility] Comment on above: Performed By: #### R EDRAW LDH, REDRAW K #### [place] [address] [place] Neutrophils/100 WBC (Bld) 79.1 % Normal . [facility] Comment on above: Performed By: #### R EDRAW LDH, REDRAW K #### [address] NRBC% 0.0 /100{WBC} Normal 0-0.5 [facility] Comment on above: Performed By: #### R EDRAW LDH, REDRAW K #### [address] Platelet mean volume (Bld) [Entitic vol] 7.3 fL Normal 6.3-10.7 [facility] Comment on above: Performed By: #### R EDRAW LDH, REDRAW K #### [address] Platelets (Bld) [#/Vol] 202 10*3/uL Normal 150-450 [facility] Comment on above: Performed By: #### R EDRAW LDH, REDRAW K #### [address] RBC (Bld) [#/Vol] 4.24 10*6/uL Normal 3.60-5.00 [facility] Comment on above: Performed By: #### R EDRAW LDH, REDRAW K #### [address] WBC (Bld) [#/Vol] 7.6 10*3/uL Normal 3.8-11.6 [facility] Comment on above: Performed By: #### R EDRAW LDH, REDRAW K #### [address] Adrenocorticotropic Hormone PLon 08-06-[address] 21.1 pg/mL Normal 7.2-63.3 [facility] Comment on above: Result Comment: ACTH reference interval for samples collected between 7 and 10 AM. Performed at: [facility] [id number] [employer] C[employer]er: Coleman Lacy PhD, Phone: [phone] PERFORMED BY: [address] [place] [address] PATHOLOGIST [employer] WAYLON SAUNDERS M.D. Performed By: #### A CT #### [facility] , Alanine aminotransferase [En zymatic activity/volume] in Serum or PlasmaOrdered By: Sly Benson on 08-06-2023 ALT [Catalytic activity/Vol] 23 U/L Normal 7-52 [facility] Comment on above: Performed By: #### R EDRAW LDH, REDRAW K #### [facility] [address] [place] [address] [place] Albumin [Mass/volume] in Ser um or Plasma by Bromocresol green (BCG) dye binding methoOrdered By: Sly Benson on 08-06-2023 Albumin BCG dye [Mass/Vol] 4.0 g/dL 3.5-5.7 [facility] Alkaline phosphatase [Enzyma tic activity/volume] in Serum or PlasmaOrdered By: Sly Benson on 08-06-2023 ALP [Catalytic activity/Vol] 95 U/L Normal 34-104 [facility] Comment on above: Performed By: #### R EDRAW LDH, REDRAW K #### [facility] [address] [place] [address] Aspartate aminotransferase [ Enzymatic activity/volume] in Serum or PlasmaOrdered By: Sly Benson on 08-06-2023 AST [Catalytic activity/Vol] 29 U/L Normal 13-39 [facility] Comment on above: Performed By: #### R EDRAW LDH, REDRAW K #### [facility] [address] [place] [address] [place] Bilirubin.total [Mass/volume ] in Serum or PlasmaOrdered By: Sly Benson on 08-06-2023 Bilirubin [Mass/Vol] 0.6 mg/dL Normal 0.3-1.0 [facility] Comment on above: Performed By: #### R EDRAW LDH, REDRAW K #### [facility] [address] [place] [address] [place] [address] abdomen pelvis w conon CT abdomen pelvis w con [facility] [place] [address] [place] [address] CT Scan Report Signed Patient: Theresa Luu MR#: [id number] : 1945 Acct:[id number] Age/Sex: 77 / F ADM Date: 08/06/23 Loc: [facility]T [facility]: Sly Benson II DO Copies to: Sly Benson II, DO Ordering Provider: Sly Benson II, DO Date of Service: 08/06/23 CT/CT abdomen pelvis w con: surveillance ([id number]) CT/CT chest w con: surveillance CT CHEST, [...] Monroe Jr., D.OWilbert08/06/2023 2:43 PM Dictation Location: [facility]15 Transcribed By: [facility] 08/06/23 1443 Dictated By: Sylvain Monroe Jr, DO 08/06/23 1430 Signed By: 08/06/23 1443 Normal [facility] Calcium [Mass/volume] in Ser um or PlasmaOrdered By: Sly Benson on 08-06-2023 Calcium [Mass/Vol] 9.2 mg/dL Normal 8.6-10.3 [facility] Comment on above: Performed By: #### R EDRAW LDH, REDRAW K #### [facility] [address] [place] [address] Carbon dioxide, total [Moles /volume] in Serum or PlasmaOrdered By: Sly Benson on 08-06-2023 CO2 [Moles/Vol] 30.5 mmol/L Normal 21.0-31.0 [facility] Comment on above: Performed By: #### R EDRAW LDH, REDRAW K #### [facility] [address] [place] [address] [place] Chloride [Moles/volume] in S mellissa or PlasmaOrdered By: Sly Benson on 08-06-2023 Chloride [Moles/Vol] 104 mmol/L Normal 98-107 [facility] Comment on above: Performed By: #### R EDRAW LDH, REDRAW K #### [facility] [address] Comprehensive Metabolic Pane eileen 08-06-2023 Albumin [Mass/Vol] 4.0 g/dL Normal 3.5-5.7 [facility] Comment on above: Performed By: #### R EDRAW LDH, REDRAW K #### [facility] [address] [place] [address] [place] Anion gap [Moles/Vol] Not performed Normal 6.0-15.0 [facility] Comment on above: Performed By: #### R EDRAW LDH, REDRAW K #### [facility] [address] [place] [id number] [place] Creatinine Clr Calc Pharmacy 57.70 Normal [facility] Comment on above: Performed By: #### R EDRAW LDH, REDRAW K #### [facility] [address] [place] [id number] [place] GFR/1.73 sq M.predicted MDRD (S/P/Bld) [Vol rate/Area] mL/min/{1.73_m2} Normal [facility] Comment on above: Performed By: #### R EDRAW LDH, REDRAW K #### [facility] [address] [place] [address] [place] Potassium Normal 3.5-5.1 [facility] Comment on above: Result Comment: Spec imen hemolyzed, redraw requested Performed By: #### R EDRAW LDH, REDRAW K #### [facility] [address] [place] [id number] [place] Creatinine [Mass/volume] in Serum or PlasmaOrdered By: Sly Benson on 08-06-2023 Creatinine [Mass/Vol] 0.87 mg/dL Normal 0.60-1.20 [facility] Comment on above: Performed By: #### R EDRAW LDH, REDRAW K #### [facility] [address] [place] [id number] [place] Glucose [Mass/volume] in Ser um or PlasmaOrdered By: Sly Benson on 08-06-2023 Glucose [Mass/Vol] 95 mg/dL Normal 70-100 [facility] Comment on above: ADA recommended refe rence rangeRandom Glucose Reference Range is dependent on time and content of last meal. Glucose of more than 200 mg/dL in a nonstressed, ambulatory subject supports the diagnosis of Diabetes Mellitus. Result Comment: [place] om Glucose Reference Range is dependent on time and content of last meal. Glucose of more than 200 mg/dL in a nonstressed, ambulatory subject supports the diagnosis of Diabetes Mellitus. ADA recommended reference range Performed By: #### R EDRAW LDH, REDRAW K #### [facility] [address] [place] [address] [place] LDH Lactate Dehydrogenaseon 08-06-2023 LDH Lactate Dehydrogenase Normal 140-271 [facility] Comment on above: Result Comment: Spec imen hemolyzed, redraw requested Performed By: #### R EDRAW LDH, REDRAW K #### [facility] [address] [place] [address] [place] Lactate dehydrogenase [Enzym atic activity/volume] in Serum or Plasma by Lactate to pyOrdered By: Sly Benson on 08-06-2023 LDH Lactate to pyruvate reaction [Catalytic activity/Vol] 173 U/L 140-271 [facility] No Panel InformationOrdered By: Sly Benson on 08-06-2023 Estimated GFR (CKD-EPI) > 60.0 mL/Min [facility] Creatinine Clearance (Chem 57.70 [facility] Potassium [Moles/volume] in Serum or PlasmaOrdered By: Sly Benson on 08-06-2023 Potassium [Moles/Vol] 3.6 mmol/L Normal 3.5-5.1 [facility] Comment on above: Order Comment: SPECI MEN HEMOLYZED. NOTIFIED CHON. Performed By: #### R EDRAW LDH, REDRAW K #### [facility] [address] [place], [place] [id number] [place] Protein [Mass/volume] in Ser um or PlasmaOrdered By: Sly Benson on 08-06-2023 Protein [Mass/Vol] 7.0 g/dL Normal 6.4-8.9 [facility] Comment on above: Performed By: #### R EDRAW LDH, REDRAW K #### [facility] [address] [place] [address] [place] Redraw LDHon 08-06-2023 Redraw LDH 173 U/L Normal 140-271 [facility] Comment on above: Order Comment: SPECI MEN HEMOLYZED. NOTIFIED CHON. Result Comment: PERF ORMED BY: [place] [address] PATHOLOGIST [employer] WAYLON SAUNDERS M.D. Performed By: #### R EDRAW LDH, REDRAW K #### [address] Serum globulin measurement b y calculation (mass/volume)Ordered By: Sly Benson on 08-06-2023 Globulin (S) [Mass/Vol] 3.0 g/dL [facility] Comment on above: Performed By: #### R EDRAW LDH, REDRAW K #### [address] Serum or plasma albumin/glob ulin mass ratioOrdered By: Sly Benson on 08-06-2023 Albumin/Globulin [Mass ratio] 1.3 {ratio} [facility] Comment on above: Performed By: #### R EDRAW LDH, REDRAW K #### [address] Serum or plasma anion gap de terminationOrdered By: Sly Benson on 08-06-2023 Anion gap [Moles/Vol] TNP [facility] Comment on above: Test not performed Sodium [Moles/volume] in Ser um or PlasmaOrdered By: Sly Benson on 08-06-2023 Sodium [Moles/Vol] 141 mmol/L Normal 136-145 [facility] Comment on above: Performed By: #### R EDRAW LDH, REDRAW K #### [address] Thyrotropin [Units/volume] i n Serum or PlasmaOrdered By: Sly Benson on 08-06-2023 TSH Qn 2.81 m[IU]/L Normal 0.45-5.33 [facility] Comment on above: Result Comment: PERF ORMED BY: [place] [address] PATHOLOGIST [employer] WAYLON SAUNDERS M.D. Performed By: #### T SH3, T4F, LDH, CMP ####[place] [id number] [address] Thyroxine (T4) free [Mass/vo lume] in Serum or PlasmaOrdered By: Sly Benson on 08-06-2023 Free T4 [Mass/Vol] 1.13 ng/dL High 0.61-1.12 [facility] Comment on above: Performed By: #### T SH3, T4F, LDH, CMP ####[address] Urea nitrogen [Mass/volume] in Serum or PlasmaOrdered By: Sly Benson on 08-06-2023 Urea nitrogen [Mass/Vol] 23 mg/dL Normal 02-03 [facility] Comment on above: Performed By: #### R EDRAW LDH, REDRAW K #### [place] [address] [place] Adrenocorticotropic Hormone PLon 03-05-[address] 25.6 pg/mL Normal 7.2-63.3 [facility] Comment on above: Result Comment: ACTH reference interval for samples collected between 7 and 10 AM. Performed at: [facility] [id number] [employer]: Coleman Lacy PhD, Phone: [phone] PERFORMED BY: [place] [address] PATHOLOGIST [employer] WAYLON SAUNDERS M.D. Performed By: #### R EDRAW LDH, REDRAW K #### [address] Alanine aminotransferase [En zymatic activity/volume] in Serum or PlasmaOrdered By: Sly Benson on 03-05-2023 ALT [Catalytic activity/Vol] 22 U/L Normal [facility] Comment on above: Order Comment: SPECI MEN HEMOLYZED. NOTIFIED CHON. Performed By: #### R EDRAW LDH, REDRAW K #### [facility] [address] [place] [address] Albumin [Mass/volume] in Ser um or Plasma by Bromocresol green (BCG) dye binding methoOrdered By: Sly Benson on 03-05-2023 Albumin BCG dye [Mass/Vol] 4.1 g/dL 3.5-5.7 [facility] Alkaline phosphatase [Enzyma tic activity/volume] in Serum or PlasmaOrdered By: Sly Benson on 03-05-2023 ALP [Catalytic activity/Vol] 106 U/L High 34-104 [facility] Comment on above: Order Comment: SPECI MEN HEMOLYZED. NOTIFIED CHON. Performed By: #### R EDRAW LDH, REDRAW K #### [address] Aspartate aminotransferase [ Enzymatic activity/volume] in Serum or PlasmaOrdered By: Sly Benson on 03-05-2023 AST [Catalytic activity/Vol] 23 U/L Normal 13-39 [facility] Comment on above: Order Comment: SPECI MEN HEMOLYZED. NOTIFIED CHON. Performed By: #### R EDRAW LDH, REDRAW K #### [address] Automated basophil %Ordered By: Sly Benson on 03-05-2023 Basophils/100 WBC (Bld) 0.8 % Normal . [facility] Comment on above: Performed By: #### R EDRAW LDH, REDRAW K #### [address] Automated basophil countOrde red By: Sly Benson on 03-05-2023 Basophils (Bld) [#/Vol] 0.0 10*3/uL Normal 0.0-0.2 [facility] Comment on above: Result Comment: PERF ORMED BY: [place] [address] PATHOLOGIST CLE[employer]AT [employer] WAYLON SAUNDERS M.D. Performed By: #### R EDRAW LDH, REDRAW K #### [place] [address] [place] Automated blood monocyte cou ntOrdered By: Sly Benson on 03-05-2023 Monocytes (Bld) [#/Vol] 0.5 10*3/uL Normal 0.0-0.8 [facility] Comment on above: Performed By: #### R EDRAW LDH, REDRAW K #### [facility] [address] Automated eosinophil %Ordere d By: Sly Benson on 03-05-2023 Eosinophils/100 WBC (Bld) 1.7 % Normal . [facility] Comment on above: Performed By: #### R EDRAW LDH, REDRAW K #### [facility] [address] Automated eosinophil countOr dered By: Sly Benson on 03-05-2023 Eosinophils (Bld) [#/Vol] 0.1 10*3/uL Normal 0.0-0.45 [facility] Comment on above: Performed By: #### R EDRAW LDH, REDRAW K #### [facility] [address] [place] [address] Automated monocyte %Ordered By: Sly Benson on 03-05-2023 Monocytes/100 WBC (Bld) 8.4 % Normal . [facility] Comment on above: Performed By: #### R EDRAW LDH, REDRAW K #### [facility] [address] [place] [address] Automated neutrophil %Ordere d By: Sly Benson on 03-05-2023 Neutrophils/100 WBC (Bld) 66.0 % Normal . [facility] Comment on above: Performed By: #### R EDRAW LDH, REDRAW K #### [facility] [address] [place] [address] Bilirubin.total [Mass/volume ] in Serum or PlasmaOrdered By: Sly Benson on 03-05-2023 Bilirubin [Mass/Vol] 0.6 mg/dL Normal 0.3-1.0 [facility] Comment on above: Order Comment: SPECI MEN HEMOLYZED. NOTIFIED Performed By: #### R EDRAW LDH, REDRAW K #### [facility] [address] [place] [id number] [facility] CT abdomen pelvis w conon CT abdomen pelvis w con [facility] [address] [place] [address] CT Scan Report Signed Patient: Theresa Luu MR#: [id number] : 1945 Acct:[id number] Age/Sex: 77 / F ADM Date: 03/05/23 Loc: XT Room: Type: [facility] RCR Attending Dr: Sly Benson II DO Copies to: Sly Benson II, DO Ordering Provider: Sly Benson II, DO Date of Service: 03/05/23 CT/CT abdomen pelvis w con: surveilance ([id number]) CT/CT chest w con: surveilance CT CHEST, [...] Monroe Jr., D.O.03/05/2023 3:12 PM Dictation Location: [place] [address] Transcribed By: [facility] 03/05/23 1512 Dictated By: Sylvain Monroe Jr, DO 03/05/23 1504 Signed By: 03/05/23 1512 Normal [facility] Calcium [Mass/volume] in Ser um or PlasmaOrdered By: Sly Benson on 03-05-2023 Calcium [Mass/Vol] 9.4 mg/dL Normal 8.6-10.3 [facility] Comment on above: Order Comment: SPECI MEN HEMOLYZED. NOTIFIED Performed By: #### R EDRAW LDH, REDRAW K #### [facility] [address] [place] [address] [place] Carbon dioxide, total [Moles /volume] in Serum or PlasmaOrdered By: Sly Benson on 03-05-2023 CO2 [Moles/Vol] 28.0 mmol/L Normal 21.0-31.0 [facility] Comment on above: Order Comment: SPECI MEN HEMOLYZED. NOTIFIED Performed By: #### R EDRAW LDH, REDRAW K #### [facility] [address] [place] [address] [place] Chloride [Moles/volume] in S mellissa or PlasmaOrdered By: Sly Benson on 03-05-2023 Chloride [Moles/Vol] 104 mmol/L Normal 98-107 [facility] Comment on above: Order Comment: SPECI MEN HEMOLYZED. NOTIFIED CHON. Performed By: #### R EDRAW LDH, REDRAW K #### [facility] [address] [place] [address] Complete Blood Count Auto Di ffon 03-05-2023 Mean Corpuscular HGB Conc 34.3 g/dL Normal 32.0-35.0 [facility] Comment on above: Performed By: #### R EDRAW LDH, REDRAW K #### [facility] [address] [place] [address] NRBC% 0.0 /100{WBC} Normal 0-0.5 [facility] Comment on above: Performed By: #### R EDRAW LDH, REDRAW K #### [address] Comprehensive Metabolic Pane eileen 03-05-2023 Albumin [Mass/Vol] 4.1 g/dL Normal 3.5-5.7 [facility] Comment on above: Order Comment: SPECI MEN HEMOLYZED. NOTIFIED CHON. Performed By: #### R EDRAW LDH, REDRAW K #### [facility] [address] [place] [address] [place] Creatinine Clr Calc Pharmacy 54.20 Normal [facility] Comment on above: Order Comment: SPECI MEN HEMOLYZED. NOTIFIED CHON. Performed By: #### R EDRAW LDH, REDRAW K #### [place] [address] [place] GFR/1.73 sq M.predicted MDRD (S/P/Bld) [Vol rate/Area] mL/min/{1.73_m2} Normal [facility] Comment on above: Order Comment: SPECI MEN HEMOLYZED. NOTIFIED CHON. Performed By: #### R EDRAW LDH, REDRAW K #### [facility] [address] [place] [address] [place] Creatinine [Mass/volume] in Serum or PlasmaOrdered By: Sly Benson on 03-05-2023 Creatinine [Mass/Vol] 0.91 mg/dL Normal 0.60-1.20 [facility] Comment on above: Order Comment: SPECI MEN HEMOLYZED. NOTIFIED CHON. Performed By: #### R EDRAW LDH, REDRAW K #### [facility] [address] Erythrocyte distribution wid th [Ratio] by Automated countOrdered By: Sly Benson on 03-05-2023 Erythrocyte distribution width (RBC) [Ratio] 14.3 % Normal 11.9-15.3 [facility] Comment on above: Performed By: #### R EDRAW LDH, REDRAW K #### [facility] [address] [place] [address] [place] Erythrocytes [#/volume] in B lood by Automated countOrdered By: Sly Benson on 03-05-2023 RBC (Bld) [#/Vol] 4.51 10*6/uL Normal 3.60-5.00 [facility] Comment on above: Performed By: #### R EDRAW LDH, REDRAW K #### [facility] [address] [place] [address] [place] Glucose [Mass/volume] in Ser um or PlasmaOrdered By: Sly Benson on 03-05-2023 Glucose [Mass/Vol] 102 mg/dL High 70-100 [facility] Comment on above: ADA recommended refe rence rangeRandom Glucose Reference Range is dependent on time and content of last meal. Glucose of more than 200 mg/dL in a nonstressed, ambulatory subject supports the diagnosis of Diabetes Mellitus. Order Comment: SPECI MEN HEMOLYZED. NOTIFIED CHON. Result Comment: [place] om Glucose Reference Range is dependent on time and content of last meal. Glucose of more than 200 mg/dL in a nonstressed, ambulatory subject supports the diagnosis of Diabetes Mellitus. ADA recommended reference range Performed By: #### R EDRAW LDH, REDRAW K #### [facility] [address] [place] [address] [place] Hematocrit [Volume Fraction] of Blood by Automated countOrdered By: Sly Benson on 03-05-2023 Hematocrit (Bld) [Volume fraction] 39.8 % Normal 34.0-46.4 [facility] Comment on above: Performed By: #### R EDRAW LDH, REDRAW K #### [facility] [address] [place] [address] [place] Hemoglobin [Mass/volume] in BloodOrdered By: Sly Benson on 03-05-2023 Hemoglobin (Bld) [Mass/Vol] 13.6 g/dL Normal 11.8-15.4 [facility] Comment on above: Performed By: #### R EDRAW LDH, REDRAW K #### [facility] [address] LDH Lactate Dehydrogenaseon 03-05-2023 LDH Lactate Dehydrogenase 197 U/L Normal 140-271 [facility] Comment on above: Order Comment: SPECI MEN HEMOLYZED. NOTIFIED CHON. Performed By: #### R EDRAW LDH, REDRAW K #### [facility] [address] [place] [address] [place] Lactate dehydrogenase [Enzym atic activity/volume] in Serum or Plasma by Lactate to pyOrdered By: Sly Benson on 03-05-2023 LDH Lactate to pyruvate reaction [Catalytic activity/Vol] 197 U/L 140-271 [facility] Leukocytes [#/volume] correc margot for nucleated erythrocytes in Blood by Automated counOrdered By: Sly Benson on 03-05-2023 WBC corrected for nucl RBC Auto (Bld) [#/Vol] 6.3 10*3/uL 3.8-11.6 [facility] Leukocytes [#/volume] in Blo od by Automated countOrdered By: Sly Benson on 03-05-2023 WBC (Bld) [#/Vol] 6.3 10*3/uL Normal 3.8-11.6 [facility] Comment on above: Performed By: #### R EDRAW LDH, REDRAW K #### [facility] [address] [place] [address] [place] Lymphocytes [#/volume] in Bl ood by Automated countOrdered By: Sly Benson on 03-05-2023 Lymphocytes (Bld) [#/Vol] 1.4 10*3/uL Normal 1.00-4.8 [facility] Comment on above: Performed By: #### Oz EDVANDA LDH REDRAW K #### [facility] [address] [place] [address] Lymphocytes/100 leukocytes i n Blood by Automated countOrdered By: Sly Benson on 03-05-2023 Lymphocytes/100 WBC (Bld) 23.1 % Normal . [facility] Comment on above: Performed By: #### R EDVANDA LDH, REDRAW K #### [address] MCH [Entitic mass] by Automa margot countOrdered By: Sly Benson on 03-05-2023 MCH (RBC) [Entitic mass] 30.2 pg Normal 24.7-34.3 [facility] Comment on above: Performed By: #### Oz EDVANDA LDH REDRAW K #### [address] MCHC Auto (RBC) [Mass/Vol]Or dered By: Sly Benson on 03-05-2023 MCHC (RBC) [Mass/Vol] 34.3 g/dL 32.0-35.0 [facility] MCV [Entitic volume] by Auto mated countOrdered By: Sly Benson on 03-05-2023 MCV (RBC) [Entitic vol] 88.1 fL Normal 80-100 [facility] Comment on above: Performed By: #### R EDW LDH, REDRAW K #### [facility] [address] [place] [address] Neutrophils [#/volume] in Bl ood by Automated countOrdered By: Sly Benson on 03-05-2023 Neutrophils (Bld) [#/Vol] 4.1 10*3/uL Normal 1.8-7.7 [facility] Comment on above: Performed By: #### R EDRAW LDH, REDRAW K #### [facility] [address] No Panel InformationOrdered By: Sly Benson on 03-05-2023 Adrenocorticotropic Hormone 25.6 pg/mL 7.2-63.3 [facility] Comment on above: ACTH reference inter jamel for samples collected between 7 and10 AM.Performed at: - [facility] [id number] Director: Coleman Lacy PhD, Phone: [phone] Estimated GFR (CKD-EPI) > 60.0 mL/Min [facility] Creatinine Clearance (Chem 54.20 [facility] Nucleated erythrocytes [Pres ence] in Blood by Automated countOrdered By: Sly Benson on 03-05-2023 Nucleated RBC Auto Ql (Bld) 0.0 /100{WBC} 0-0.5 [facility] Platelet mean volume [Entiti c volume] in Blood by Automated countOrdered By: Sly Benson on 03-05-2023 Platelet mean volume (Bld) [Entitic vol] 7.2 fL Normal 6.3-10.7 [facility] Comment on above: Performed By: #### R EDRAW LDH, REDRAW K #### [facility] [address] [place] [address] Platelets [#/volume] in Bloo d by Automated countOrdered By: Sly Benson on 03-05-2023 Platelets (Bld) [#/Vol] 190 10*3/uL Normal 150-450 [facility] Comment on above: Performed By: #### R EDRAW LDH, REDRAW K #### [facility] [address] [place] [address] Potassium [Moles/volume] in Serum or PlasmaOrdered By: Sly Benson on 03-05-2023 Potassium [Moles/Vol] 3.8 mmol/L Normal 3.5-5.1 [facility] Comment on above: Order Comment: SPECI MEN HEMOLYZED. NOTIFIED CHON. Performed By: #### R EDRAW LDH, REDRAW K #### [facility] [address] [place] [address] [place] Protein [Mass/volume] in Ser um or PlasmaOrdered By: Sly Benson on 03-05-2023 Protein [Mass/Vol] 6.9 g/dL Normal 6.4-8.9 [facility] Comment on above: Order Comment: SPECI MEN HEMOLYZED. NOTIFIED CHON. Performed By: #### R EDRAW LDH, REDRAW K #### [facility] [address] Serum globulin measurement b y calculation (mass/volume)Ordered By: Sly Benson on 03-05-2023 Globulin (S) [Mass/Vol] 2.8 g/dL Normal [facility] Comment on above: Order Comment: SPECI MEN HEMOLYZED. NOTIFIED CHON. Performed By: #### R EDRAW LDH, REDRAW K #### [facility] [address] [place] [address] Serum or plasma albumin/glob ulin mass ratioOrdered By: Sly Benson on 03-05-2023 Albumin/Globulin [Mass ratio] 1.5 {ratio} Normal [facility] Comment on above: Order Comment: SPECI MEN HEMOLYZED. NOTIFIED CHON. Performed By: #### R EDRAW LDH, REDRAW K #### [address] Serum or plasma anion gap de terminationOrdered By: Sly Benson on 03-05-2023 Anion gap [Moles/Vol] 12.8 mmol/L Normal 6.0-15.0 [facility] Comment on above: Order Comment: SPECI MEN HEMOLYZED. NOTIFIED CHON. Performed By: #### R EDRAW LDH, REDRAW K #### [facility] [address] [place] [address] [place] Sodium [Moles/volume] in Ser um or PlasmaOrdered By: Sly Benson on 03-05-2023 Sodium [Moles/Vol] 141 mmol/L Normal 136-145 [facility] Comment on above: Order Comment: SPECI MEN HEMOLYZED. NOTIFIED CHON. Performed By: #### R EDRAW LDH, REDRAW K #### [facility] [address] [place] [address] Thyrotropin [Units/volume] i n Serum or PlasmaOrdered By: Sly Benson on 03-05-2023 TSH Qn 2.49 m[IU]/L Normal 0.45-5.33 [facility] Comment on above: Order Comment: SPECI MEN HEMOLYZED. NOTIFIED CHON. Result Comment: PERF ORMED BY: [place] [address] PATHOLOGIST CLE[employer]AT SPRAYER WAYLON SAUNDERS M.D. Performed By: #### R EDRAW LDH, REDRAW K #### [address] Thyroxine (T4) free [Mass/vo lume] in Serum or PlasmaOrdered By: Sly Benson on 03-05-2023 Free T4 [Mass/Vol] 0.94 ng/dL Normal 0.61-1.12 [facility] Comment on above: Order Comment: SPECI MEN HEMOLYZED. NOTIFIED CHON. Performed By: #### R EDRAW LDH, REDRAW K #### [address] Urea nitrogen [Mass/volume] in Serum or PlasmaOrdered By: Sly Benson on 03-05-2023 Urea nitrogen [Mass/Vol] 17 mg/dL Normal 7-25 [facility] Comment on above: Order Comment: SPECI MEN HEMOLYZED. NOTIFIED CHON. Performed By: #### R EDRAW LDH, REDRAW K #### [place] [address] [place] Adrenocorticotropic Hormone PLon 12-30-[address] 28.9 pg/mL Normal 7.2-63.3 [facility] Comment on above: Result Comment: ACTH reference interval for samples collected between 7 and 10 AM. Performed at: - [facility] [id number] [place]: Coleman Lacy PhD, Phone: [phone] PERFORMED BY: [place] [address] PATHOLOGIST [employer] SPR[employer] WAYLON SAUNDERS M.D. Performed By: #### R EDRAW LDH, REDRAW K #### [address] Alanine aminotransferase [En zymatic activity/volume] in Serum or PlasmaOrdered By: Sly Benson on 12-30-2022 ALT [Catalytic activity/Vol] 24 U/L Normal 7-52 [facility] Comment on above: Performed By: #### T 4F, CBC, TSH3, LDH, CMP #### [facility] [address] [place] [address] #### ACTH #### [facility] , Albumin [Mass/volume] in Ser um or Plasma by Bromocresol green (BCG) dye binding methoOrdered By: Sly Benson on 12-30-2022 Albumin BCG dye [Mass/Vol] 4.0 g/dL 3.5-5.7 [facility] Alkaline phosphatase [Enzyma tic activity/volume] in Serum or PlasmaOrdered By: Sly Benson on 12-30-2022 ALP [Catalytic activity/Vol] 108 U/L High 34-104 [facility] Comment on above: Performed By: #### T 4F, CBC, TSH3, LDH, CMP #### [facility] [address] [place] [address] [place] #### ACTH #### [facility] , Aspartate aminotransferase [ Enzymatic activity/volume] in Serum or PlasmaOrdered By: Sly Benson on 12-30-2022 AST [Catalytic activity/Vol] 22 U/L Normal 13-39 [facility] Comment on above: Performed By: #### T 4F, CBC, TSH3, LDH, CMP #### [facility] [address] [place] [address] [place] #### ACTH #### [facility] , Automated basophil %Ordered By: Syl Benson on 12-30-2022 Basophils/100 WBC (Bld) 0.5 % Normal . [facility] Comment on above: Performed By: #### T 4F, CBC, TSH3, LDH, CMP #### [facility] [address] [place] [address] [place] #### ACTH #### [facility] , Automated basophil countOrde red By: Sly Benson on 12-30-2022 Basophils (Bld) [#/Vol] 0.0 10*3/uL Normal 0.0-0.2 [facility] Comment on above: Result Comment: PERF ORMED BY: [place] [address] PATHOLOGIST [employer] WAYLON SAUNDERS M.D. Performed By: #### T 4F, CBC, TSH3, LDH, CMP #### [address] #### ACTH #### [facility] , Automated blood monocyte cou ntOrdered By: Sly Benson on 12-30-2022 Monocytes (Bld) [#/Vol] 0.6 10*3/uL Normal 0.0-0.8 [facility] Comment on above: Performed By: #### T 4F, CBC, TSH3, LDH, CMP #### [place] [address] [place] #### ACTH #### [facility] , Automated eosinophil %Ordere d By: Sly Benson on 12-30-2022 Eosinophils/100 WBC (Bld) 1.5 % Normal . [facility] Comment on above: Performed By: #### T 4F, CBC, TSH3, LDH, CMP #### [facility] [address] [place] [address] [place] #### ACTH #### [facility] , Automated eosinophil countOr dered By: Sly Benson on 12-30-2022 Eosinophils (Bld) [#/Vol] 0.1 10*3/uL Normal 0.0-0.45 [facility] Comment on above: Performed By: #### T 4F, CBC, TSH3, LDH, CMP #### [facility] [address] [place] [address] [place] #### ACTH #### [facility] , Automated monocyte %Ordered By: Sly Benson on 12-30-2022 Monocytes/100 WBC (Bld) 9.0 % Normal . [facility] Comment on above: Performed By: #### T 4F, CBC, TSH3, LDH, CMP #### [place] [address] [place] #### ACTH #### [facility] , Automated neutrophil %Ordere d By: Sly Benson on 12-30-2022 Neutrophils/100 WBC (Bld) 65.0 % Normal . [facility] Comment on above: Performed By: #### T 4F, CBC, TSH3, LDH, CMP #### [place] [address] [place] #### ACTH #### [facility] , Bilirubin.total [Mass/volume ] in Serum or PlasmaOrdered By: Sly Benson on 12-30-2022 Bilirubin [Mass/Vol] 0.5 mg/dL Normal 0.3-1.0 [facility] Comment on above: Performed By: #### T 4F, CBC, TSH3, LDH, CMP #### [facility] [address] [place] [address] [place] #### ACTH #### [facility] , Calcium [Mass/volume] in Ser um or PlasmaOrdered By: Sly Benson on 12-30-2022 Calcium [Mass/Vol] 9.1 mg/dL Normal 8.6-10.3 [facility] Comment on above: Performed By: #### T 4F, CBC, TSH3, LDH, CMP #### [place] [address] [place] #### ACTH #### [facility] , Carbon dioxide, total [Moles /volume] in Serum or PlasmaOrdered By: Sly Benson on 12-30-2022 CO2 [Moles/Vol] 30.7 mmol/L Normal 21.0-31.0 [facility] Comment on above: Performed By: #### T 4F, CBC, TSH3, LDH, CMP #### [place] [address] [place] #### ACTH #### [facility] , Chloride [Moles/volume] in S mellissa or PlasmaOrdered By: Sly Benson on 12-30-2022 Chloride [Moles/Vol] 104 mmol/L Normal 98-107 [facility] Comment on above: Performed By: #### T 4F, CBC, TSH3, LDH, CMP #### [place] [address] [place] #### ACTH #### [facility] , Complete Blood Count Auto Di ffon 12-30-2022 Mean Corpuscular HGB Conc 34.3 g/dL Normal 32.0-35.0 [facility] Comment on above: Performed By: #### T 4F, CBC, TSH3, LDH, CMP #### [place] [address] [place] #### ACTH #### [facility] , NRBC% 0.0 /100{WBC} Normal 0-0.5 [facility] Comment on above: Performed By: #### T 4F, CBC, TSH3, LDH, CMP #### [place] [address] [place] #### ACTH #### [facility] , Comprehensive Metabolic Pane eileen 12-30-2022 Albumin [Mass/Vol] 4.0 g/dL Normal 3.5-5.7 [facility] Comment on above: Performed By: #### T 4F, CBC, TSH3, LDH, CMP #### [place] [address] [place] #### ACTH #### [facility] , Anion gap [Moles/Vol] Not performed Normal 6.0-15.0 [facility] Comment on above: Result Comment: --- 12/30/22 1038 --- Gap previously reported as: 10.2 mEq/L Performed By: #### T 4F, CBC, TSH3, LDH, CMP #### [place] [address] [place] #### ACTH #### [facility] , Creatinine Clr Calc Pharmacy 54.88 Normal [facility] Comment on above: Performed By: #### T 4F, CBC, TSH3, LDH, CMP #### [place] [address] [place] #### ACTH #### [facility] , GFR/1.73 sq M.predicted MDRD (S/P/Bld) [Vol rate/Area] mL/min/{1.73_m2} Normal [facility] Comment on above: Performed By: #### T 4F, CBC, TSH3, LDH, CMP #### [place] [address] [place] #### ACTH #### [facility] , Potassium Normal 3.5-5.1 [facility] Comment on above: Result Comment: Spec imen hemolyzed, redraw requested --- 12/30/22 1036 --- K previously reported as: 3.9 mmol/L Hemolysis is present at a level that could interfere with the result. Performed By: #### T 4F, CBC, TSH3, LDH, CMP #### [facility] [address] [place] [address] [place] #### ACTH #### [facility] , Creatinine [Mass/volume] in Serum or PlasmaOrdered By: Sly Benson on 12-30-2022 Creatinine [Mass/Vol] 0.92 mg/dL Normal 0.60-1.20 [facility] Comment on above: Performed By: #### T 4F, CBC, TSH3, LDH, CMP #### [place] [address] [place] #### ACTH #### [facility] , Erythrocyte distribution wid th [Ratio] by Automated countOrdered By: Sly Benson on 12-30-2022 Erythrocyte distribution width (RBC) [Ratio] 13.6 % Normal 11.9-15.3 [facility] Comment on above: Performed By: #### T 4F, CBC, TSH3, LDH, CMP #### [place] [address] [place] #### ACTH #### [facility] , Erythrocytes [#/volume] in B lood by Automated countOrdered By: Sly Benson on 12-30-2022 RBC (Bld) [#/Vol] 4.46 10*6/uL Normal 3.60-5.00 [facility] Comment on above: Performed By: #### T 4F, CBC, TSH3, LDH, CMP #### [place] [address] [place] #### ACTH #### [facility] , Glucose [Mass/volume] in Ser um or PlasmaOrdered By: Sly Benson on 12-30-2022 Glucose [Mass/Vol] 102 mg/dL High 70-100 [facility] Comment on above: ADA recommended refe rence rangeRandom Glucose Reference Range is dependent on time and content of last meal. Glucose of more than 200 mg/dL in a nonstressed, ambulatory subject supports the diagnosis of Diabetes Mellitus. Result Comment: [place] om Glucose Reference Range is dependent on time and content of last meal. Glucose of more than 200 mg/dL in a nonstressed, ambulatory subject supports the diagnosis of Diabetes Mellitus. ADA recommended reference range Performed By: #### T 4F, CBC, TSH3, LDH, CMP #### [place] [address] [place] #### ACTH #### [facility] , Hematocrit [Volume Fraction] of Blood by Automated countOrdered By: Sly Benson on 12-30-2022 Hematocrit (Bld) [Volume fraction] 39.0 % Normal 34.0-46.4 [facility] Comment on above: Performed By: #### T 4F, CBC, TSH3, LDH, CMP #### [address] #### ACTH #### [facility] , Hemoglobin [Mass/volume] in BloodOrdered By: Sly Benson on 12-30-2022 Hemoglobin (Bld) [Mass/Vol] 13.4 g/dL Normal 11.8-15.4 [facility] Comment on above: Performed By: #### T 4F, CBC, TSH3, LDH, CMP #### [place] [address] [place] #### ACTH #### [facility] , LDH Lactate Dehydrogenaseon 12-30-2022 LDH Lactate Dehydrogenase 211 U/L Normal 140-271 [facility] Comment on above: Result Comment: Hemo lysis is present at a level that could interfere with the result. Performed By: #### T 4F, CBC, TSH3, LDH, CMP #### [facility] [address] [place] [address] [place] #### ACTH #### [facility] , Lactate dehydrogenase [Enzym atic activity/volume] in Serum or Plasma by Lactate to pyOrdered By: Sly Benson on 12-30-2022 LDH Lactate to pyruvate reaction [Catalytic activity/Vol] 211 U/L 140-271 [facility] Comment on above: Hemolysis is present at a level that could interfere with the result. Leukocytes [#/volume] correc margot for nucleated erythrocytes in Blood by Automated counOrdered By: Sly Benson on 12-30-2022 WBC corrected for nucl RBC Auto (Bld) [#/Vol] 6.8 10*3/uL 3.8-11.6 [facility] Leukocytes [#/volume] in Blo od by Automated countOrdered By: Sly Benson on 12-30-2022 WBC (Bld) [#/Vol] 6.8 10*3/uL Normal 3.8-11.6 [facility] Comment on above: Performed By: #### T 4F, CBC, TSH3, LDH, CMP #### [facility] [address] [place] [address] [place] #### ACTH #### [facility] , Lymphocytes [#/volume] in Bl ood by Automated countOrdered By: Sly Benson on 12-30-2022 Lymphocytes (Bld) [#/Vol] 1.6 10*3/uL Normal 1.00-4.8 [facility] Comment on above: Performed By: #### T 4F, CBC, TSH3, LDH, CMP #### [facility] [address] [place] [address] [place] #### ACTH #### [facility] , Lymphocytes/100 leukocytes i n Blood by Automated countOrdered By: Sly Benson on 12-30-2022 Lymphocytes/100 WBC (Bld) 24.0 % Normal . [facility] Comment on above: Performed By: #### T 4F, CBC, TSH3, LDH, CMP #### [facility] [address] [place] [address] [place] #### ACTH #### [facility] , MCH [Entitic mass] by Automa margot countOrdered By: Sly Benson on 12-30-2022 MCH (RBC) [Entitic mass] 30.0 pg Normal 24.7-34.3 [facility] Comment on above: Performed By: #### T 4F, CBC, TSH3, LDH, CMP #### [facility] [address] [place] [address] [place] #### ACTH #### [facility] , MCHC Auto (RBC) [Mass/Vol]Or dered By: Sly Benson on 12-30-2022 MCHC (RBC) [Mass/Vol] 34.3 g/dL 32.0-35.0 [facility] MCV [Entitic volume] by Auto mated countOrdered By: Sly Benson on 12-30-2022 MCV (RBC) [Entitic vol] 87.4 fL Normal 80-100 [facility] Comment on above: Performed By: #### T 4F, CBC, TSH3, LDH, CMP #### [facility] [address] [place] [address] [place] #### ACTH #### [facility] , Neutrophils [#/volume] in Bl ood by Automated countOrdered By: Sly Benson on 12-30-2022 Neutrophils (Bld) [#/Vol] 4.4 10*3/uL Normal 1.8-7.7 [facility] Comment on above: Performed By: #### T 4F, CBC, TSH3, LDH, CMP #### [address] #### ACTH #### [facility] , No Panel InformationOrdered By: Sly Benson on 12-30-2022 Adrenocorticotropic Hormone 28.9 pg/mL 7.2-63.3 [facility] Comment on above: ACTH reference inter jamel for samples collected between 7 and10 AM.Performed at: [facility] Director: Coleman Lacy PhD, Phone: [phone] Estimated GFR (CKD-EPI) > 60.0 mL/Min [facility] Creatinine Clearance (Chem 54.88 [facility] Nucleated erythrocytes [Pres ence] in Blood by Automated countOrdered By: Sly Benson on 12-30-2022 Nucleated RBC Auto Ql (Bld) 0.0 /100{WBC} 0-0.5 [facility] Platelet mean volume [Entiti c volume] in Blood by Automated countOrdered By: Sly Benson on 12-30-2022 Platelet mean volume (Bld) [Entitic vol] 7.4 fL Normal 6.3-10.7 [facility] Comment on above: Performed By: #### T 4F, CBC, TSH3, LDH, CMP #### [place] [address] [place] #### ACTH #### [facility] , Platelets [#/volume] in Bloo d by Automated countOrdered By: Sly Benson on 12-30-2022 Platelets (Bld) [#/Vol] 171 10*3/uL Normal 150-450 [facility] Comment on above: Performed By: #### T 4F, CBC, TSH3, LDH, CMP #### [facility] [address] [place] [address] [place] #### ACTH #### [facility] , Potassium [Moles/volume] in Serum or PlasmaOrdered By: Sly Benson on 12-30-2022 Potassium [Moles/Vol] See comment 3.5-5.1 [facility] Comment on above: Specimen hemolyzed, redraw requested --- 12/30/22 1036 ---K previously reported as: 3.9 mmol/LHemolysis is present at a level that could interfere with the result. Protein [Mass/volume] in Ser um or PlasmaOrdered By: Sly Benson on 12-30-2022 Protein [Mass/Vol] 6.5 g/dL Normal 6.4-8.9 [facility] Comment on above: Performed By: #### T 4F, CBC, TSH3, LDH, CMP #### [facility] [address] [place] [address] [place] #### ACTH #### [facility] , Serum globulin measurement b y calculation (mass/volume)Ordered By: Sly Benson on 12-30-2022 Globulin (S) [Mass/Vol] 2.5 g/dL [facility] Comment on above: Performed By: #### T 4F, CBC, TSH3, LDH, CMP #### [facility] [address] [place] [address] [place] #### ACTH #### [facility] , Serum or plasma albumin/glob ulin mass ratioOrdered By: Sly Benson on 12-30-2022 Albumin/Globulin [Mass ratio] 1.6 {ratio} Normal [facility] Comment on above: Performed By: #### T 4F, CBC, TSH3, LDH, CMP #### [facility] [address] [place] [address] [place] #### ACTH #### [facility] , Serum or plasma anion gap de terminationOrdered By: Sly Benson on 12-30-2022 Anion gap [Moles/Vol] TNP [facility] Comment on above: Test not performed-- - 12/30/22 1038 ---Gap previously reported as: 10.2 mEq/L Sodium [Moles/volume] in Ser um or PlasmaOrdered By: Sly Benson on 12-30-2022 Sodium [Moles/Vol] 141 mmol/L Normal 136-145 [facility] Comment on above: Performed By: #### T 4F, CBC, TSH3, LDH, CMP #### [place] [address] [place] #### ACTH #### [facility] , Thyrotropin [Units/volume] i n Serum or PlasmaOrdered By: Sly Benson on 12-30-2022 TSH Qn 2.31 m[IU]/L Normal 0.45-5.33 [facility] Comment on above: Result Comment: PERF ORMED BY: [place] [address] PATHOLOGIST [employer] WAYLON SAUNDERS M.D. Performed By: #### T 4F, CBC, TSH3, LDH, CMP #### [place] [address] [place] #### ACTH #### [facility] , Thyroxine (T4) free [Mass/vo lume] in Serum or PlasmaOrdered By: Sly Benson on 12-30-2022 Free T4 [Mass/Vol] 1.03 ng/dL Normal 0.61-1.12 [facility] Comment on above: Performed By: #### T 4F, CBC, TSH3, LDH, CMP #### [address] [place] [address] [place] #### ACTH #### [facility] , Urea nitrogen [Mass/volume] in Serum or PlasmaOrdered By: Sly Benson on 12-30-2022 Urea nitrogen [Mass/Vol] 17 mg/dL Normal 7- [facility] Comment on above: Performed By: #### T 4F, CBC, TSH3, LDH, CMP #### [facility] [address] [place] [address] [place] #### ACTH #### [facility] , Alanine aminotransferase [En zymatic activity/volume] in Serum or PlasmaOrdered By: Sly Benson on 10-31-2022 ALT [Catalytic activity/Vol] 22 U/L 7-52 [facility] Albumin [Mass/volume] in Ser um or Plasma by Bromocresol green (BCG) dye binding methoOrdered By: Sly Benson on 10-31-2022 Albumin BCG dye [Mass/Vol] 4.0 g/dL 3.5-5.7 [facility] Alkaline phosphatase [Enzyma tic activity/volume] in Serum or PlasmaOrdered By: Sly Benson on 10-31-2022 ALP [Catalytic activity/Vol] 98 U/L 34-104 [facility] Aspartate aminotransferase [ Enzymatic activity/volume] in Serum or PlasmaOrdered By: Sly Benson on 10-31-2022 AST [Catalytic activity/Vol] 28 U/L 13-39 [facility] Basophils Auto (Bld) [#/Vol] Ordered By: Sly Benson on 10-31-2022 Basophils (Bld) [#/Vol] 0.1 10*3/uL 0.0-0.2 [facility] Basophils/100 WBC Auto (Bld) Ordered By: Sly Benson on 10-31-2022 Basophils/100 WBC (Bld) 0.9 % . [facility] Bilirubin.total [Mass/volume ] in Serum or PlasmaOrdered By: Sly Benson on 10-31-2022 Bilirubin [Mass/Vol] 0.7 mg/dL 0.3-1.0 [facility] Calcium [Mass/volume] in Ser um or PlasmaOrdered By: Sly Benson on 10-31-2022 Calcium [Mass/Vol] 8.9 mg/dL 8.6-10.3 [facility] Carbon dioxide, total [Moles /volume] in Serum or PlasmaOrdered By: Sly Benson on 10-31-2022 CO2 [Moles/Vol] 28.6 mmol/L 21.0-31.0 [facility] Chloride [Moles/volume] in S mellissa or PlasmaOrdered By: Sly Benson on 10-31-2022 Chloride [Moles/Vol] 104 mmol/L 98-107 [facility] Creatinine [Mass/volume] in Serum or PlasmaOrdered By: Sly Benson on 10-31-2022 Creatinine [Mass/Vol] 0.93 mg/dL 0.60-1.20 [facility] Eosinophils Auto (Bld) [#/Vo l]Ordered By: Sly Benson on 10-31-2022 Eosinophils (Bld) [#/Vol] 0.1 10*3/uL 0.0-0.45 [facility] Eosinophils/100 WBC Auto (Bl d)Ordered By: Sly Benson on 10-31-2022 Eosinophils/100 WBC (Bld) 1.8 % . [facility] Erythrocyte distribution wid th Auto (RBC) [Ratio]Ordered By: Sly Benson on 10-31-2022 Erythrocyte distribution width (RBC) [Ratio] 15.0 % 11.9-15.3 [facility] Globulin Calc (S) [Mass/Vol] Ordered By: Sly Benson on 10-31-2022 Globulin (S) [Mass/Vol] 2.9 g/dL [facility] Glucose [Mass/volume] in Ser um or PlasmaOrdered By: Sly Benson on 10-31-2022 Glucose [Mass/Vol] 100 mg/dL 70-100 [facility] Comment on above: ADA recommended refe rence rangeRandom Glucose Reference Range is dependent on time and content of last meal. Glucose of more than 200 mg/dL in a nonstressed, ambulatory subject supports the diagnosis of Diabetes Mellitus. Hematocrit Auto (Bld) [Volum e fraction]Ordered By: Sly Benson on 10-31-2022 Hematocrit (Bld) [Volume fraction] 41.3 % 34.0-46.4 [facility] Hemoglobin [Mass/volume] in BloodOrdered By: Sly Benson on 10-31-2022 Hemoglobin (Bld) [Mass/Vol] 14.0 g/dL 11.8-15.4 [facility] Lactate dehydrogenase [Enzym atic activity/volume] in Serum or Plasma by Lactate to pyOrdered By: Sly Benson on 10-31-2022 LDH Lactate to pyruvate reaction [Catalytic activity/Vol] 226 U/L 140-271 [facility] Leukocytes [#/volume] correc margot for nucleated erythrocytes in Blood by Automated counOrdered By: Sly Benson on 10-31-2022 WBC corrected for nucl RBC Auto (Bld) [#/Vol] 6.8 10*3/uL 3.8-11.6 [facility] Lymphocytes Auto (Bld) [#/Vo l]Ordered By: Sly Benson on 10-31-2022 Lymphocytes (Bld) [#/Vol] 1.8 10*3/uL 1.00-4.8 [facility] Lymphocytes/100 WBC Auto (Bl d)Ordered By: Sly Benson on 10-31-2022 Lymphocytes/100 WBC (Bld) 26.5 % . [facility] MCH Auto (RBC) [Entitic mass ]Ordered By: Sly Benson on 10-31-2022 MCH (RBC) [Entitic mass] 29.7 pg 24.7-34.3 [facility] MCHC Auto (RBC) [Mass/Vol]Or dered By: Sly Benson on 10-31-2022 MCHC (RBC) [Mass/Vol] 33.8 g/dL 32.0-35.0 [facility] MCV Auto (RBC) [Entitic vol] Ordered By: Sly Benson on 10-31-2022 MCV (RBC) [Entitic vol] 87.8 fL 80-100 [facility] Monocytes Auto (Bld) [#/Vol] Ordered By: Sly Benson on 10-31-2022 Monocytes (Bld) [#/Vol] 0.8 10*3/uL 0.0-0.8 [facility] Monocytes/100 WBC Auto (Bld) Ordered By: Sly Benson on 10-31-2022 Monocytes/100 WBC (Bld) 11.2 % . [facility] Neutrophils Auto (Bld) [#/Vo l]Ordered By: Sly Benson on 10-31-2022 Neutrophils (Bld) [#/Vol] 4.0 10*3/uL 1.8-7.7 [facility] Neutrophils/100 WBC Auto (Bl d)Ordered By: Sly Benson on 10-31-2022 Neutrophils/100 WBC (Bld) 59.6 % . [facility] No Panel InformationOrdered By: Sly Benson on 10-31-2022 Adrenocorticotropic Hormone 35.2 pg/mL 7.2-63.3 [facility] Comment on above: ACTH reference inter jamel for samples collected between 7 and10 AM.Performed at: [employer] [facility] [address] Director: Coleman Lacy PhD, Phone: [phone] Estimated GFR (CKD-EPI) > 60.0 mL/Min [facility] Creatinine Clearance (Chem 54.88 [facility] Nucleated erythrocytes [Pres ence] in Blood by Automated countOrdered By: Sly Benson on 10-31-2022 Nucleated RBC Auto Ql (Bld) 0.0 /100{WBC} 0-0.5 [facility] Platelet mean volume Auto (B ld) [Entitic vol]Ordered By: Sly Benson on 10-31-2022 Platelet mean volume (Bld) [Entitic vol] 7.1 fL 6.3-10.7 [facility] Platelets Auto (Bld) [#/Vol] Ordered By: Sly Benson on 10-31-2022 Platelets (Bld) [#/Vol] 201 10*3/uL 150-450 [facility] Potassium [Moles/volume] in Serum or PlasmaOrdered By: Sly Benson on 10-31-2022 Potassium [Moles/Vol] 3.8 mmol/L 3.5-5.1 [facility] Protein [Mass/volume] in Ser um or PlasmaOrdered By: Sly Benson on 10-31-2022 Protein [Mass/Vol] 6.9 g/dL 6.4-8.9 [facility] RBC Auto (Bld) [#/Vol]Ordere d By: Sly Benson on 10-31-2022 RBC (Bld) [#/Vol] 4.70 10*6/uL 3.60-5.00 [facility] Serum or plasma albumin/glob ulin mass ratioOrdered By: Sly Benson on 10-31-2022 Albumin/Globulin [Mass ratio] 1.4 {ratio} [facility] Serum or plasma anion gap de terminationOrdered By: Sly Benson on 10-31-2022 Anion gap [Moles/Vol] 12.2 mmol/L 6.0-15.0 [facility] Sodium [Moles/volume] in Ser um or PlasmaOrdered By: Sly Benson on 10-31-2022 Sodium [Moles/Vol] 141 mmol/L 136-145 [facility] Thyrotropin [Units/volume] i n Serum or PlasmaOrdered By: Sly Benson on 10-31-2022 TSH Qn 2.49 m[IU]/L 0.45-5.33 [facility] Thyroxine (T4) free [Mass/vo lume] in Serum or PlasmaOrdered By: Sly Benson on 10-31-2022 Free T4 [Mass/Vol] 1.02 ng/dL 0.61-1.12 [facility] Urea nitrogen [Mass/volume] in Serum or PlasmaOrdered By: Sly Benson on 10-31-2022 Urea nitrogen [Mass/Vol] 19 mg/dL 02-03 [facility] WBC Auto (Bld) [#/Vol]Ordere d By: Sly Benson on 10-31-2022 WBC (Bld) [#/Vol] 6.8 10*3/uL 3.8-11.6 [facility] ACTH, PLASMAon 10-04-2022 ACTH, Plasma 48.7 pg/mL Normal 7.2-63.3 [facility] Comment on above: Result Comment: ACTH reference interval for samples collected between 7 and 10 AM. Performed By: #### A CTHP #### [facility] [address] [place] [address] Dr. Alesia Meyers CBC AUTO DIFFon 10-03-2022 BASO # 0.1 103/ul Normal 0.0-0.1 [facility] Comment on above: Performed By: #### T SH, CMP, LDH #### [facility] [address] [place] [address] Dr. Alesia Meyers Basophils/100 WBC (Bld) 1.2 % Normal 0.2-2.0 [facility] Comment on above: Performed By: #### T SH, CMP, LDH #### [facility] [address] [place] [address] Dr. Alesia Meyers EO # 0.2 103/ul Normal 0.0-0.7 [facility] Comment on above: Performed By: #### T SH, CMP, LDH #### [facility] [address] [place] [address] Dr. Alesia Meyers Eosinophils/100 WBC (Bld) 2.5 % Normal 0.9-7.0 [facility] Comment on above: Performed By: #### T SH, CMP, LDH #### [facility] [address] [place] [address] Dr. Alesia Meyers Erythrocyte distribution width (RBC) [Ratio] 13.9 % Normal 11.0-15.0 [facility] Comment on above: Performed By: #### T SH, CMP, LDH #### [facility] [address] [place] [address] Dr. Alesia Meyers Hematocrit (Bld) [Volume fraction] 41.9 % Normal 36.0-48.0 [facility] Comment on above: Performed By: #### T SH, CMP, LDH #### [facility] [address] [place] [address] Dr. Alesia Meyers Hemoglobin (Bld) [Mass/Vol] 13.6 g/dL Normal 12.0-16.0 [facility] Comment on above: Performed By: #### T SH, CMP, LDH #### [facility] [address] [address] [address] Alesia Meyers IG # 0.04 10e3/ul Critically high 0.00-0.03 [facility] Comment on above: Performed By: #### T SH, CMP, LDH #### [facility] [address] [address] [address] Alesia Meyers IG % 0.7 % Critically high 0.0-0.5 [facility] Comment on above: Performed By: #### T SH, CMP, LDH #### [facility] [address] [place] [address] Dr. Alesia Meyers LYMPH # 2.1 103/ul Normal 1.2-3.8 [facility] Comment on above: Performed By: #### T SH, CMP, LDH #### [facility] [address] [place] [address] Dr. Alesia Meyers Lymphocytes/100 WBC (Bld) 35.5 % Normal 20.5-60.0 [facility] Comment on above: Performed By: #### T SH, CMP, LDH #### [facility] [address] [place] [address] Dr. Alesia Meyers MANUAL DIFF REQ NO Normal [facility] Comment on above: Performed By: #### T SH, CMP, LDH #### [facility] [address] [place] [address] Dr. Alesia Meyers MCH (RBC) [Entitic mass] 28.9 pg Normal 26.7-34.0 [facility] Comment on above: Performed By: #### T SH, CMP, LDH #### [facility] [address] [place] [address] Dr. Alesia Meyers MCHC (RBC) [Mass/Vol] 32.5 g/dL Normal 29.9-35.2 [facility] Comment on above: Performed By: #### T SH, CMP, LDH #### [facility] [address] [place], [place] [id number] Dr. Alesia Meyers MCV (RBC) [Entitic vol] 89.1 fL Normal 81.0-99.0 [facility] Comment on above: Performed By: #### T SH, CMP, LDH #### [facility] [address] [place] [address] Dr. Alesia Meyers MONO # 0.6 103/ul Normal 0.3-0.8 [facility] Comment on above: Performed By: #### T SH, CMP, LDH #### [facility] [address] [place] [address] Dr. Alesia Meyers Monocytes/100 WBC (Bld) 10.8 % Normal 1.7-12.0 [facility] Comment on above: Performed By: #### T SH, CMP, LDH #### [facility] [address] [place] [address] Dr. Alesia Meyers NEUT # 2.9 103/ul Normal 1.4-6.5 [facility] Comment on above: Performed By: #### T SH, CMP, LDH #### [facility] [address] [place] [address] Dr. Alesia Meyers Neutrophils/100 WBC (Bld) 49.3 % Normal 43.0-75.0 [facility] Comment on above: Performed By: #### T SH, CMP, LDH #### [facility] [address] [place] [address] Dr. Alesia Meyers Platelet mean volume (Bld) [Entitic vol] 8.8 fL Critically low 9.5-13.5 [facility] Comment on above: Performed By: #### T SH, CMP, LDH #### [facility] [address] [place] [address] Dr. Alesia Meyers PLT 226 103/ul Normal 150-450 [facility] Comment on above: Performed By: #### T SH, CMP, LDH #### [facility] [address] [place] [address] Dr. Alesia Meyers RBC 4.70 106/ul Normal 4.20-5.40 [facility] Comment on above: Performed By: #### T SH, CMP, LDH #### [facility] [address] [address] [address] Alesia Meyers WBC 5.9 103/ul Normal 4.0-11.0 [facility] Comment on above: Performed By: #### T SH, CMP, LDH #### [facility] [address] [place] [address] Dr. Alesia Meyers FREE T4on 10-03-2022 Free T4 [Mass/Vol] 1.02 ng/dL Normal 0.76-1.46 [facility] Comment on above: Performed By: #### F T4 #### [facility] [address] [place] [address] Dr. Alesia Meyers LDHon 10-03-2022 LDH 212 U/L Normal 81-234 [facility] Comment on above: Performed By: #### F T4 #### [facility] [address] [place] [address] Dr. Alesia Meyers PROF 14(COMP METB)on 023 Albumin [Mass/Vol] 3.5 g/dL Normal 3.4-5.0 [facility] Comment on above: Performed By: #### F T4 #### [facility] [address] [place] [address] Dr. Alesia Meyers Albumin/Globulin [Mass ratio] 1.1 {ratio} Normal [facility] Comment on above: Performed By: #### F T4 #### [facility] [address] [place] [address] Dr. Alesia Meyers ALP [Catalytic activity/Vol] 120 U/L Critically high 46-116 [facility] Comment on above: Performed By: #### F T4 #### [facility] [address] [place] [address] Dr. Alesia Meyers ALT [Catalytic activity/Vol] 37 U/L Normal 14-59 [facility] Comment on above: Performed By: #### F T4 #### [facility] [address] [place] [address] Dr. Alesia Meyers Anion gap [Moles/Vol] 11.4 mmol/L Normal [facility] Comment on above: Performed By: #### F T4 #### [facility] [address] [address] [address] Alesia Meyers AST [Catalytic activity/Vol] 28 U/L Normal 15-37 [facility] Comment on above: Performed By: #### F T4 #### [facility] [address] [address] [address] Alesia Meyers Bilirubin [Mass/Vol] 0.4 mg/dL Normal 0.2-1.0 [facility] Comment on above: Performed By: #### F T4 #### [facility] [address] [address] [address] Alesia Meyers Calcium [Mass/Vol] 9.2 mg/dL Normal 8.5-10.1 [facility] Comment on above: Performed By: #### F T4 #### [facility] [address] [address] [address] Alesia Meyers Chloride [Moles/Vol] 105 mmol/L Normal 98-107 [facility] Comment on above: Performed By: #### F T4 #### [facility] [address] [address] [address] Alesia Meyers CO2 [Moles/Vol] 30.4 mmol/L Normal 21.0-32.0 [facility] Comment on above: Performed By: #### F T4 #### [facility] [address] [address] [address] Alesia Meyers Creatinine [Mass/Vol] 0.88 mg/dL Normal 0.55-1.02 [facility] Comment on above: Performed By: #### F T4 #### [facility] [address] [address] [address] Alesia Meyers EGFR-AF JAPANESE >60 Normal >=60 [facility] Comment on above: Performed By: #### F T4 #### [facility] [address] [address] [address] Alesia Meyers EGFR-NON AF JAPANESE >60 Normal >=60 [facility] Comment on above: Performed By: #### F T4 #### [facility] [address] [address] [address] Alesia Meyers Globulin (S) [Mass/Vol] 3.3 g/dL Normal [facility] Comment on above: Performed By: #### F T4 #### [facility] [address] [place] [address] Dr. Alesia Meyers Glucose [Mass/Vol] 104 mg/dL Normal 74-106 [facility] Comment on above: Performed By: #### F T4 #### [facility] [address] [place] [address] Dr. Alesia Meyers Potassium [Moles/Vol] 3.8 mmol/L Normal 3.5-5.1 [facility] Comment on above: Performed By: #### F T4 #### [facility] [address] [place] [address] Dr. Alesia Meyers Protein [Mass/Vol] 6.8 g/dL Normal 6.4-8.2 [facility] Comment on above: Performed By: #### F T4 #### [facility] [address] [place] [address] Dr. Alesia Meyers Sodium [Moles/Vol] 143 mmol/L Normal 136-145 [facility] Comment on above: Performed By: #### F T4 #### [facility] [address] [place] [address] Dr. Alesia Meyers Urea nitrogen [Mass/Vol] 19.0 mg/dL Critically high 7.0-18.0 [facility] Comment on above: Performed By: #### F T4 #### [facility] [address] [place] [address] Dr. Alesia Meyers Urea nitrogen/Creatinine [Mass ratio] 21.6 mg/mg Normal [facility] Comment on above: Performed By: #### F T4 #### [facility] [address] [place] [address] Dr. Alesia Meyers TSHon 10-03-2022 TSH 3.819 uIU/mL Critically high 0.358-3.74 0 [facility] Comment on above: Performed By: #### F T4 #### [facility] [address] [place] [address] Dr. Alesia Meyers ACTH, PLASMAon 09-06-2022 ACTH, Plasma 6.3 pg/mL Critically low 7.2-63.3 [facility] Comment on above: Result Comment: ACTH reference interval for samples collected between 7 and 10 AM. Performed By: #### T SH, CMP, LDH #### [facility] [address] [address] [address] Alesia Meyers CBC AUTO DIFFon 09-05-2022 BASO # 0.0 103/ul Normal 0.0-0.1 [facility] Comment on above: Performed By: #### T SH, CMP, LDH #### [facility] [facility] [address] [address] [address] Alesia Meyers Basophils/100 WBC (Bld) 0.3 % Normal 0.2-2.0 [facility] Comment on above: Performed By: #### T SH, CMP, LDH #### [facility] [address] [address] [address] Alesia Meyers EO # 0.1 103/ul Normal 0.0-0.7 [facility] Comment on above: Performed By: #### T SH, CMP, LDH #### [facility] [address] [address] [address] Alesia Meyers Eosinophils/100 WBC (Bld) 0.6 % Critically low 0.9-7.0 [facility] Comment on above: Performed By: #### T SH, CMP, LDH #### [facility] [address] [address] [address] Alesia Meyers Erythrocyte distribution width (RBC) [Ratio] 14.4 % Normal 11.0-15.0 [facility] Comment on above: Performed By: #### T SH, CMP, LDH #### [facility] [address] [place] [address] Dr. Alesia Meyers Hematocrit (Bld) [Volume fraction] 41.6 % Normal 36.0-48.0 [facility] Comment on above: Performed By: #### T SH, CMP, LDH #### [facility] [address] [place] [address] Dr. Alesia Meyers Hemoglobin (Bld) [Mass/Vol] 13.7 g/dL Normal 12.0-16.0 [facility] Comment on above: Performed By: #### T SH, CMP, LDH #### [facility] [address] [place] [address] Dr. Alesia Meyers IG # 0.14 10e3/ul Critically high 0.00-0.03 [facility] Comment on above: Performed By: #### T SH, CMP, LDH #### [facility] [address] [place] [address] Dr. Alesia Meyers IG % 1.6 % Critically high 0.0-0.5 [facility] Comment on above: Performed By: #### T SH, CMP, LDH #### [facility] [address] [place] [address] Dr. Alesia Meyers LYMPH # 2.7 103/ul Normal 1.2-3.8 [facility] Comment on above: Performed By: #### T SH, CMP, LDH #### [facility] [address] [place] [address] Dr. Alesia Meyers Lymphocytes/100 WBC (Bld) 30.2 % Normal 20.5-60.0 [facility] Comment on above: Performed By: #### T SH, CMP, LDH #### [facility] [address] [place] [address] Dr. Alesia Meyers MANUAL DIFF REQ NO Normal [facility] Comment on above: Performed By: #### T SH, CMP, LDH #### [facility] [address] [place] [address] Dr. Alesia Meyers MCH (RBC) [Entitic mass] 28.7 pg Normal 26.7-34.0 [facility] Comment on above: Performed By: #### T SH, CMP, LDH #### [facility] [address] [place] [address] Dr. Alesia Meyers MCHC (RBC) [Mass/Vol] 32.9 g/dL Normal 29.9-35.2 [facility] Comment on above: Performed By: #### T SH, CMP, LDH #### [facility] [address] [place] [address] Dr. Alesia Meyers MCV (RBC) [Entitic vol] 87.2 fL Normal 81.0-99.0 [facility] Comment on above: Performed By: #### T SH, CMP, LDH #### [facility] [address] [place] [address] Dr. Alesia Meyers MONO # 1.0 103/ul Critically high 0.3-0.8 [facility] Comment on above: Performed By: #### T SH, CMP, LDH #### [facility] [address] [place] [address] Dr. Alesia Meyers Monocytes/100 WBC (Bld) 10.8 % Normal 1.7-12.0 [facility] Comment on above: Performed By: #### T SH, CMP, LDH #### [facility] [address] [place] [address] Dr. Alesia Meyers NEUT # 5.0 103/ul Normal 1.4-6.5 [facility] Comment on above: Performed By: #### T SH, CMP, LDH #### [facility] [address] [place] [address] Dr. Aleisa Meyers Neutrophils/100 WBC (Bld) 56.5 % Normal 43.0-75.0 [facility] Comment on above: Performed By: #### T SH, CMP, LDH #### [facility] [address] [place] [address] Dr. Alesia Meyers Platelet mean volume (Bld) [Entitic vol] 9.1 fL Critically low 9.5-13.5 [facility] Comment on above: Performed By: #### T SH, CMP, LDH #### [facility] [address] [place] [address] Dr. Alesia Meyers PLT 217 103/ul Normal 150-450 [facility] Comment on above: Performed By: #### T SH, CMP, LDH #### [facility] [address] [place] [address] Dr. Alesia Meyers RBC 4.77 106/ul Normal 4.20-5.40 [facility] Comment on above: Performed By: #### T SH, CMP, LDH #### [facility] [address] [place] [address] Dr. Alesia Meyers WBC 8.8 103/ul Normal 4.0-11.0 [facility] Comment on above: Performed By: #### T SH, CMP, LDH #### [facility] [address] [place] [address] Dr. Alesia Meyers FREE T4on 09-05-2022 Free T4 [Mass/Vol] 1.22 ng/dL Normal 0.76-1.46 [facility] Comment on above: Performed By: #### F T4 #### [facility] [address] [place] [address] Dr. Alesia Meyers LDHon 09-05-2022 LDH 212 U/L Normal 81-234 [facility] Comment on above: Performed By: #### T SH, CMP, LDH #### [facility] [address] [place] [address] Dr. Alesia Meyers PROF 14(COMP METB)on 023 Albumin [Mass/Vol] 3.4 g/dL Normal 3.4-5.0 [facility] Comment on above: Performed By: #### T SH, CMP, LDH #### [facility] [address] [place] [address] Dr. Alesia Meyers Albumin/Globulin [Mass ratio] 1.1 {ratio} Normal [facility] Comment on above: Performed By: #### T SH, CMP, LDH #### [facility] [address] [place] [address] Dr. Alesia Meyers ALP [Catalytic activity/Vol] 101 U/L Normal 46-116 [facility] Comment on above: Performed By: #### T SH, CMP, LDH #### [facility] [address] [place] [address] Dr. Alesia Meyers ALT [Catalytic activity/Vol] 40 U/L Normal 14-59 [facility] Comment on above: Performed By: #### T SH, CMP, LDH #### [facility] [address] [address] [address] Alesia Meyers Anion gap [Moles/Vol] 10.7 mmol/L Normal Th [facility] Comment on above: Performed By: #### T SH, CMP, LDH #### [facility] [address] [address] [address] Alesia Meyers AST [Catalytic activity/Vol] 25 U/L Normal 15-37 [facility] Comment on above: Performed By: #### T SH, CMP, LDH #### [facility] [address] [place] [address] Dr. Alesia Meyers Bilirubin [Mass/Vol] 0.4 mg/dL Normal 0.2-1.0 [facility] Comment on above: Performed By: #### T SH, CMP, LDH #### [facility] [address] [place] [address] Dr. Alesia Meyers Calcium [Mass/Vol] 8.7 mg/dL Normal 8.5-10.1 [facility] Comment on above: Performed By: #### T SH, CMP, LDH #### [facility] [address] [address] [address] Alesia Meyers Chloride [Moles/Vol] 105 mmol/L Normal 98-107 [facility] Comment on above: Performed By: #### T SH, CMP, LDH #### [facility] [address] [place] [address] Dr. Alesia Meyers CO2 [Moles/Vol] 30.0 mmol/L Normal 21.0-32.0 [facility] Comment on above: Performed By: #### T SH, CMP, LDH #### [facility] [address] [place] [address] Dr. Alesia Meyers Creatinine [Mass/Vol] 0.83 mg/dL Normal 0.55-1.02 [facility] Comment on above: Performed By: #### T SH, CMP, LDH #### [facility] [address] [place] [address] Dr. Alesia Meyers EGFR-AF JAPANESE >60 Normal >=60 [facility] Comment on above: Performed By: #### T SH, CMP, LDH #### [facility] [address] [address] [address] Alesia Meyers EGFR-NON AF JAPANESE >60 Normal >=60 [facility] Comment on above: Performed By: #### T SH, CMP, LDH #### [facility] [address] [address] [address] Alesia Meyers Globulin (S) [Mass/Vol] 3.2 g/dL Normal [facility] Comment on above: Performed By: #### T SH, CMP, LDH #### [facility] [address] [address] [address] Alesia Meyers Glucose [Mass/Vol] 96 mg/dL Normal 74-106 [facility] Comment on above: Performed By: #### T SH, CMP, LDH #### [facility] [address] [place] [address] Dr. Alesia Meyers Potassium [Moles/Vol] 3.7 mmol/L Normal 3.5-5.1 [facility] Comment on above: Performed By: #### T SH, CMP, LDH #### [facility] [address] [address] [address] Alesia Meyers Protein [Mass/Vol] 6.6 g/dL Normal 6.4-8.2 [facility] Comment on above: Performed By: #### T SH, CMP, LDH #### [facility] [address] [place] [address] Dr. Alesia Meyers Sodium [Moles/Vol] 142 mmol/L Normal 136-145 [facility] Comment on above: Performed By: #### T SH, CMP, LDH #### [facility] [address] [address] [address] Alesia Meyers Urea nitrogen [Mass/Vol] 29.0 mg/dL Critically high 7.0-18.0 [facility] Comment on above: Performed By: #### T SH, CMP, LDH #### [facility] [address] [address] [address] Alesia Meyers Urea nitrogen/Creatinine [Mass ratio] 34.9 mg/mg Normal [facility] Comment on above: Performed By: #### T SH, CMP, LDH #### [facility] [address] [place], [place] [address] Dr. Alesia Meyers TSHon 09-05-2022 TSH 3.372 uIU/mL Normal 0.358-3.74 0 [facility] Comment on above: Performed By: #### T SH, CMP, LDH #### [facility] [address] [place], [place] [address] Dr. Alesia Meyers Albumin [Mass/volume] in Ser um or PlasmaOrdered By: Sly Benson on 08-08-2022 Albumin [Mass/Vol] 4.0 g/dL 3.2-5.5 [facility] Basophils Auto (Bld) [#/Vol] Ordered By: Sly Benson on 08-08-2022 Basophils (Bld) [#/Vol] 0.1 10*3/uL 0.0-0.2 [facility] Basophils/100 WBC Auto (Bld) Ordered By: Sly Benson on 08-08-2022 Basophils/100 WBC (Bld) 0.7 % . [facility] Creatinine and Glomerular fi ltration rate.predicted panel (S/P/Bld)Ordered By: Sly Benson on 08-08-2022 Creatinine [Mass/Vol] 0.93 mg/dL 0.44-1.03 [facility] Direct bilirubin measurement Ordered By: Sly Benson on 08-08-2022 Bilirubin.direct [Mass/Vol] mg/dL 0.0-0.4 [facility] Eosinophils Auto (Bld) [#/Vo l]Ordered By: Sly Benson on 08-08-2022 Eosinophils (Bld) [#/Vol] 0.2 10*3/uL 0.0-0.45 [facility] Eosinophils/100 WBC Auto (Bl d)Ordered By: Sly Benson on 08-08-2022 Eosinophils/100 WBC (Bld) 2.1 % . [facility] Erythrocyte distribution wid th Auto (RBC) [Ratio]Ordered By: Sly Benson on 08-08-2022 Erythrocyte distribution width (RBC) [Ratio] 14.7 % 11.9-15.3 [facility] Estimated glomerular filtrat ion rate (GFR) non- AmericanOrdered By: Sly Benson on 08-08-2022 GFR/1.73 sq M.predicted among non-blacks MDRD (S/P/Bld) [Vol rate/Area] 59 mL/Min [facility] Globulin Calc (S) [Mass/Vol] Ordered By: Sly Benson on 08-08-2022 Globulin (S) [Mass/Vol] 3.1 g/dL [facility] Hematocrit Auto (Bld) [Volum e fraction]Ordered By: Sly Benson on 08-08-2022 Hematocrit (Bld) [Volume fraction] 42.9 % 34.0-46.4 [facility] Hemoglobin [Mass/volume] in BloodOrdered By: Sly Benson on 08-08-2022 Hemoglobin (Bld) [Mass/Vol] 14.4 g/dL 11.8-15.4 [facility] Laboratory - Chemistry and C hemistry - challengeOrdered By: Sly Benson on 08-08-2022 Lipase [Catalytic activity/Vol] 33.0 U/L 22-51 [facility] Lactate dehydrogenase measur ement (enzymatic activity/volume)Ordered By: Sly Benson on 08-08-2022 LDH (Unsp spec) [Catalytic activity/Vol] 209 U/L 45-190 [facility] Leukocytes [#/volume] correc margot for nucleated erythrocytes in Blood by Automated counOrdered By: Sly Benson on 08-08-2022 WBC corrected for nucl RBC Auto (Bld) [#/Vol] 7.6 10*3/uL 3.8-11.6 [facility] Lymphocytes Auto (Bld) [#/Vo l]Ordered By: Sly Benson on 08-08-2022 Lymphocytes (Bld) [#/Vol] 2.2 10*3/uL 1.00-4.8 [facility] Lymphocytes/100 WBC Auto (Bl d)Ordered By: Sly Benson on 08-08-2022 Lymphocytes/100 WBC (Bld) 29.6 % . [facility] MCH Auto (RBC) [Entitic mass ]Ordered By: Sly Benson on 08-08-2022 MCH (RBC) [Entitic mass] 29.0 pg 24.7-34.3 [facility] MCHC Auto (RBC) [Mass/Vol]Or dered By: Sly Benson on 08-08-2022 MCHC (RBC) [Mass/Vol] 33.6 g/dL 32.0-35.0 [facility] MCV Auto (RBC) [Entitic vol] Ordered By: Sly Benson on 08-08-2022 MCV (RBC) [Entitic vol] 86.1 fL 80-100 [facility] Monocytes Auto (Bld) [#/Vol] Ordered By: Sly Benson on 08-08-2022 Monocytes (Bld) [#/Vol] 0.7 10*3/uL 0.0-0.8 [facility] Monocytes/100 WBC Auto (Bld) Ordered By: Sly Benson on 08-08-2022 Monocytes/100 WBC (Bld) 9.0 % . [facility] Neutrophils Auto (Bld) [#/Vo l]Ordered By: Sly Benson on 08-08-2022 Neutrophils (Bld) [#/Vol] 4.4 10*3/uL 1.8-7.7 [facility] Neutrophils/100 WBC Auto (Bl d)Ordered By: Sly Benson on 08-08-2022 Neutrophils/100 WBC (Bld) 58.6 % . [facility] No Panel InformationOrdered By: Sly Benson on 08-08-2022 Adrenocorticotropic Hormone 35.2 pg/mL 7.2-63.3 [facility] Comment on above: ACTH reference inter jamel for samples collected between 7 and10 AM.Performed at: [email or web address] - [address] [id number] Director: Coleman Lacy PhD, Phone: [phone] Estimated GFR () > 60 mL/Min [facility] Comment on above: GFR estimated refere nce range: According to KDOQI guidelines, <60 ml/min/1.73m2 is sufficient to diagnose a patient with chronic kidney disease. Pharmacy Creatinine Clearance (Chem 55.32 [facility] Nucleated erythrocytes [Pres ence] in Blood by Automated countOrdered By: Sly Benson on 08-08-2022 Nucleated RBC Auto Ql (Bld) 0.1 /100{WBC} 0-0.5 [facility] Platelet mean volume Auto (B ld) [Entitic vol]Ordered By: Sly Benson on 08-08-2022 Platelet mean volume (Bld) [Entitic vol] 7.5 fL 6.3-10.7 [facility] Platelets Auto (Bld) [#/Vol] Ordered By: Sly Benson on 08-08-2022 Platelets (Bld) [#/Vol] 216 10*3/uL 150-450 [facility] Protein [Mass/volume] in Ser um or PlasmaOrdered By: Sly Benson on 08-08-2022 Protein [Mass/Vol] 7.1 g/dL 6.1-7.9 [facility] RBC Auto (Bld) [#/Vol]Ordere d By: Sly Benson on 08-08-2022 RBC (Bld) [#/Vol] 4.98 10*6/uL 3.60-5.00 [facility] Random cortisol measurementO rdered By: Sly Benson on 08-08-2022 Cortisol [Mass/Vol] 11.8 ug/dL [facility] Comment on above: Reference range: AM 6 - 24 ug/dl PM <10 ug/dl Serum or plasma alanine castro otransferase measurement without P-5'-P (enzymatic activiOrdered By: Sly Benson on 08-08-2022 ALT No additional P-5'-P [Catalytic activity/Vol] 32 U/L 10-60 [facility] Serum or plasma albumin/glob ulin mass ratioOrdered By: Sly Benson on 08-08-2022 Albumin/Globulin [Mass ratio] 1.3 {ratio} [facility] Serum or plasma alkaline halle sphatase measurement (enzymatic activity/volume)Ordered By: Sly Benson on 08-08-2022 ALP [Catalytic activity/Vol] 99 U/L 32-92 [facility] Serum or plasma anion gap de terminationOrdered By: Sly Benson on 08-08-2022 Anion gap [Moles/Vol] 11.2 mmol/L 6.0-15.0 [facility] Serum or plasma aspartate am inotransferase measurement (enzymatic activity/volume)Ordered By: Sly Benson on 08-08-2022 AST [Catalytic activity/Vol] 34 U/L 10-42 [facility] Serum or plasma calcium diamond urement (mass/volume)Ordered By: Sly Benson on 08-08-2022 Calcium [Mass/Vol] 9.3 mg/dL 8.2-10.2 [facility] Serum or plasma chloride zora surement (moles/volume)Ordered By: Sly Benson on 08-08-2022 Chloride [Moles/Vol] 102 mmol/L 95-114 [facility] Serum or plasma glucose diamond urement (mass/volume)Ordered By: Sly Benson on 08-08-2022 Glucose [Mass/Vol] 101 mg/dL 70-100 [facility] Comment on above: ADA recommended refe rence rangeRandom Glucose Reference Range is dependent on time and content of last meal. Glucose of more than 200 mg/dL in a nonstressed, ambulatory subject supports the diagnosis of Diabetes Mellitus. Serum or plasma non-glucuron idated bilirubin measurement (mass/volume)Ordered By: Sly Benson on 08-08-2022 Bilirubin.indirect [Mass/Vol] TNP [facility] Comment on above: Test not performed Serum or plasma potassium me asurement (moles/volume)Ordered By: Sly Benson on 08-08-2022 Potassium [Moles/Vol] 3.3 mmol/L 3.5-5.1 [facility] Serum or plasma sodium measu rement (moles/volume)Ordered By: Sly Benson on 08-08-2022 Sodium [Moles/Vol] 139 mmol/L 136-146 [facility] Serum or plasma total biliru bin measurement (mass/volume)Ordered By: Sly Benson on 08-08-2022 Bilirubin [Mass/Vol] 0.7 mg/dL 0.3-1.2 [facility] Serum or plasma total carbon dioxide measurement (moles/volume)Ordered By: Sly Benson on 08-08-2022 CO2 [Moles/Vol] 29.1 mmol/L 22.0-30.0 [facility] Serum or plasma urea nitroge n measurement (mass/volume)Ordered By: Sly Benson on 08-08-2022 Urea nitrogen [Mass/Vol] 18 mg/dL 9- [facility] TSH DL <= 0.005 mIU/L QnOrde red By: Sly Benson on 08-08-2022 TSH Qn 2.80 m[IU]/L 0.45-5.33 [facility] Thyroxine (T4) free [Mass/vo lume] in Serum or PlasmaOrdered By: Sly Benson on 08-08-2022 Free T4 [Mass/Vol] 0.99 ng/dL 0.61-1.12 [facility] WBC Auto (Bld) [#/Vol]Ordere d By: Sly Benson on 08-08-2022 WBC (Bld) [#/Vol] 7.6 10*3/uL 3.8-11.6 [facility] ACTH, PLASMAon 07-22-2022 ACTH, Plasma 29.5 pg/mL Normal 7.2-63.3 [facility] Comment on above: Result Comment: ACTH reference interval for samples collected between 7 and 10 AM. Performed By: #### A CTHP #### [facility] [address] [place] [address] Dr. Alesia Meyers CORTISOLon 07-22-2022 Cortisol 10.0 ug/dL Normal [facility] Comment on above: Result Comment: Melvin isol AM 6.2 - 19.4 Cortisol PM 2.3 - 11.9 Performed By: #### T SH, CMP, LDH #### [facility] [address] [place] [address] Dr. Alesia Meyers CBC AUTO DIFFon 07-21-2022 BASO # 0.0 103/ul Normal 0.0-0.1 [facility] Comment on above: Performed By: #### T SH, CMP, LDH #### [facility] [address] [place] [address] Dr. Alesia Meyers Basophils/100 WBC (Bld) 0.6 % Normal 0.2-2.0 [facility] Comment on above: Performed By: #### T SH, CMP, LDH #### [facility] [address] [place] [address] Dr. Alesia Meyers EO # 0.1 103/ul Normal 0.0-0.7 [facility] Comment on above: Performed By: #### T SH, CMP, LDH #### [facility] [address] [place] [address] Dr. Alesia Meyers Eosinophils/100 WBC (Bld) 1.8 % Normal 0.9-7.0 [facility] Comment on above: Performed By: #### T SH, CMP, LDH #### [facility] [address] [place] [address] Dr. Alesia Meyers Erythrocyte distribution width (RBC) [Ratio] 13.2 % Normal 11.0-15.0 [facility] Comment on above: Performed By: #### T SH, CMP, LDH #### [facility] [address] [place] [address] Dr. Alesia Meyers Hematocrit (Bld) [Volume fraction] 40.4 % Normal 36.0-48.0 [facility] Comment on above: Performed By: #### T SH, CMP, LDH #### [facility] [address] [place] [address] Dr. Alesia Meyers Hemoglobin (Bld) [Mass/Vol] 14.1 g/dL Normal 12.0-16.0 [facility] Comment on above: Performed By: #### T SH, CMP, LDH #### [facility] [address] [place] [address] Dr. Alesia Meyers IG # 0.03 10e3/ul Normal 0.00-0.03 [facility] Comment on above: Performed By: #### T SH, CMP, LDH #### [facility] [address] [place] [address] Dr. Alesia Meyers IG % 0.4 % Normal 0.0-0.5 [facility] Comment on above: Performed By: #### T SH, CMP, LDH #### [facility] [address] [place] [address] Dr. Alesia Meyers LYMPH # 1.9 103/ul Normal 1.2-3.8 [facility] Comment on above: Performed By: #### T SH, CMP, LDH #### [facility] [address] [place] [address] Dr. Alesia Meyers Lymphocytes/100 WBC (Bld) 27.5 % Normal 20.5-60.0 [facility] Comment on above: Performed By: #### T SH, CMP, LDH #### [facility] [address] [place] [address] Dr. Alesia Meyers MANUAL DIFF REQ NO Normal [facility] Comment on above: Performed By: #### T SH, CMP, LDH #### [facility] [address] [place] [address] Dr. Alesia Meyers MCH (RBC) [Entitic mass] 28.4 pg Normal 26.7-34.0 [facility] Comment on above: Performed By: #### T SH, CMP, LDH #### [facility] [address] [place] [address] Dr. Alesia Meyers MCHC (RBC) [Mass/Vol] 34.9 g/dL Normal 29.9-35.2 [facility] Comment on above: Performed By: #### T SH, CMP, LDH #### [facility] [address] [place] [address] Dr. Alesia Meyers MCV (RBC) [Entitic vol] 81.5 fL Normal 81.0-99.0 [facility] Comment on above: Performed By: #### T SH, CMP, LDH #### [facility] [address] [place] [address] Dr. Alesia Meyers MONO # 0.3 103/ul Normal 0.3-0.8 [facility] Comment on above: Performed By: #### T SH, CMP, LDH #### [facility] [address] [place], [place] [id number] Dr. Alesia Meyers Monocytes/100 WBC (Bld) 4.9 % Normal 1.7-12.0 [facility] Comment on above: Performed By: #### T SH, CMP, LDH #### [facility] [address] [place] [address] Dr. Alesia Meyers NEUT # 4.4 103/ul Normal 1.4-6.5 [facility] Comment on above: Performed By: #### T SH, CMP, LDH #### [facility] [address] [place] [address] Dr. Alesia Meyers Neutrophils/100 WBC (Bld) 64.8 % Normal 43.0-75.0 [facility] Comment on above: Performed By: #### T SH, CMP, LDH #### [facility] [address] [place] [address] Dr. Alesia Meyers Platelet mean volume (Bld) [Entitic vol] 8.8 fL Critically low 9.5-13.5 [facility] Comment on above: Performed By: #### T SH, CMP, LDH #### [facility] [address] [place] [address] Dr. Alesia Meyers PLT 214 103/ul Normal 150-450 [facility] Comment on above: Performed By: #### T SH, CMP, LDH #### [facility] [address] [place] [address] Dr. Alesia Meyers RBC 4.96 106/ul Normal 4.20-5.40 [facility] Comment on above: Performed By: #### T SH, CMP, LDH #### [facility] [address] [place] [address] Dr. Alesia Meyers WBC 6.8 103/ul Normal 4.0-11.0 [facility] Comment on above: Performed By: #### T SH, CMP, LDH #### [facility] [address] [place] [address] Dr. Alesia Meyers FREE T4on 07-21-2022 Free T4 [Mass/Vol] 1.06 ng/dL Normal 0.76-1.46 [facility] Comment on above: Performed By: #### T SH, CMP, LDH #### [facility] [address] [address] [address] Alesia Meyers LDHon 07-21-2022 LDH 243 U/L Critically high 81-234 [facility] Comment on above: Performed By: #### T SH, CMP, LDH #### [facility] [address] [place] [address] Dr. Alesia Meyers LIPASEon 07-21-2022 Lipase [Catalytic activity/Vol] 73.0 U/L Normal 73.0-393.0 [facility] Comment on above: Performed By: #### T SH, CMP, LDH #### [facility] [address] [place] [address] Dr. Alesia Meyers LIVER PROFILEon 07-21-2022 Albumin [Mass/Vol] 3.5 g/dL Normal 3.4-5.0 [facility] Comment on above: Performed By: #### T SH, CMP, LDH #### [facility] [address] [place] [address] Dr. Alesia Meyers Albumin/Globulin [Mass ratio] 0.9 {ratio} Normal [facility] Comment on above: Performed By: #### T SH, CMP, LDH #### [facility] [address] [place] [address] Dr. Alesia Meyers ALP [Catalytic activity/Vol] 130 U/L Critically high 46-116 [facility] Comment on above: Performed By: #### T SH, CMP, LDH #### [facility] [address] [place] [address] Dr. Alesia Meyers ALT [Catalytic activity/Vol] 35 U/L Normal 14-59 [facility] Comment on above: Performed By: #### T SH, CMP, LDH #### [facility] [address] [place] [address] Dr. Alesia Meyers AST [Catalytic activity/Vol] 37 U/L Normal 15-37 [facility] Comment on above: Performed By: #### T SH, CMP, LDH #### [facility] [address] [place] [address] Dr. Alesia Meyers BILI, CONJUGATED 0.1 mg/dL Normal 0.0-0.2 [facility] Comment on above: Performed By: #### T SH, CMP, LDH #### [facility] [address] [place] [address] Dr. Alesia Meyers Bilirubin [Mass/Vol] 0.4 mg/dL Normal 0.2-1.0 [facility] Comment on above: Performed By: #### T SH, CMP, LDH #### [facility] [address] [place] [address] Dr. Alesia Meyers Globulin (S) [Mass/Vol] 3.8 g/dL Normal [facility] Comment on above: Performed By: #### T SH, CMP, LDH #### [facility] [address] [place] [address] Dr. Alesia Meyers Protein [Mass/Vol] 7.3 g/dL Normal 6.4-8.2 [facility] Comment on above: Performed By: #### T SH, CMP, LDH #### [facility] [address] [place] [address] Dr. Alesia Meyers PROF CHEM 8 (BAS METB)on Anion gap [Moles/Vol] 12.1 mmol/L Normal [facility] Comment on above: Performed By: #### T SH, CMP, LDH #### [facility] [address] [place] [address] Dr. Alesia Meyers Calcium [Mass/Vol] 9.2 mg/dL Normal 8.5-10.1 [facility] Comment on above: Performed By: #### T SH, CMP, LDH #### [facility] [address] [place] [address] Dr. Alesia Meyers Chloride [Moles/Vol] 102 mmol/L Normal 98-107 [facility] Comment on above: Performed By: #### T SH, CMP, LDH #### [facility] [address] [place] [address] Dr. Alesia Meyers CO2 [Moles/Vol] 30.5 mmol/L Normal 21.0-32.0 [facility] Comment on above: Performed By: #### T SH, CMP, LDH #### [facility] [address] [address] [address] Alesia Meyers Creatinine [Mass/Vol] 0.87 mg/dL Normal 0.55-1.02 [facility] Comment on above: Performed By: #### T SH, CMP, LDH #### [facility] [address] [address] [address] Alesia Meyers EGFR-AF JAPANESE >60 Normal >=60 [facility] Comment on above: Performed By: #### T SH, CMP, LDH #### [facility] [address] [address] [address] Alesia Meyers EGFR-NON AF JAPANESE >60 Normal >=60 [facility] Comment on above: Performed By: #### T SH, CMP, LDH #### [facility] [address] [address] [address] Alesia Meyers Glucose [Mass/Vol] 178 mg/dL Critically high 74-106 [facility] Comment on above: Performed By: #### T SH, CMP, LDH #### [facility] [address] [address] [address] Alesia Meyers Potassium [Moles/Vol] 3.6 mmol/L Normal 3.5-5.1 [facility] Comment on above: Performed By: #### T SH, CMP, LDH #### [facility] [address] [address] [address] Alesia Meyers Sodium [Moles/Vol] 141 mmol/L Normal 136-145 [facility] Comment on above: Performed By: #### T SH, CMP, LDH #### [facility] [address] [address] [address] Alesia Meyers Urea nitrogen [Mass/Vol] 16.0 mg/dL Normal 7.0-18.0 [facility] Comment on above: Performed By: #### T SH, CMP, LDH #### [facility] [address] [address] [address] Alesia Meyers Urea nitrogen/Creatinine [Mass ratio] 18.4 mg/mg Normal [facility] Comment on above: Performed By: #### T SH, CMP, LDH #### [facility] [address] [place] [address] Dr. lAesia Meyers TSHon 07-21-2022 TSH 2.383 uIU/mL Normal 0.358-3.74 0 [facility] Comment on above: Performed By: #### T SH, CMP, LDH #### [facility] [address] [place] [address] Dr. Alesia Meyers ACTH, PLASMAon 06-21-2022 ACTH, Plasma 30.4 pg/mL Normal 7.2-63.3 [facility] Comment on above: Result Comment: ACTH reference interval for samples collected between 7 and 10 AM. Performed By: #### T SH, CMP, LDH #### [facility] [address] [place] [address] Dr. Alesia Meyers CORTISOLon 06-21-2022 Cortisol 16.9 ug/dL Normal [facility] Comment on above: Result Comment: Melvin isol AM 6.2 - 19.4 Cortisol PM 2.3 - 11.9 Performed By: #### C ORTISO #### [facility] [address] [place] [address] Dr. Alesia Meyers CBC AUTO DIFFon 06-20-2022 BASO # 0.0 103/ul Normal 0.0-0.1 [facility] Comment on above: Performed By: #### T SH, CMP, LDH #### [facility] [address] [place] [address] Dr. Alesia Meyers Basophils/100 WBC (Bld) 0.5 % Normal 0.2-2.0 [facility] Comment on above: Performed By: #### T SH, CMP, LDH #### [facility] [address] [place] [address] Dr. Alesia Meyers EO # 0.1 103/ul Normal 0.0-0.7 [facility] Comment on above: Performed By: #### T SH, CMP, LDH #### [facility] [address] [place] [address] Dr. Alesia Meyers Eosinophils/100 WBC (Bld) 2.1 % Normal 0.9-7.0 [facility] Comment on above: Performed By: #### T SH, CMP, LDH #### [facility] [address] [place] [address] Dr. Alesia Meyers Erythrocyte distribution width (RBC) [Ratio] 13.3 % Normal 11.0-15.0 [facility] Comment on above: Performed By: #### T SH, CMP, LDH #### [facility] [address] [place] [address] Dr. Alesia Meyers Hematocrit (Bld) [Volume fraction] 40.2 % Normal 36.0-48.0 [facility] Comment on above: Performed By: #### T SH, CMP, LDH #### [facility] [address] [place] [address] Dr. Alesia Meyers Hemoglobin (Bld) [Mass/Vol] 13.5 g/dL Normal 12.0-16.0 [facility] Comment on above: Performed By: #### T SH, CMP, LDH #### [facility] [address] [place] [address] Dr. Alesia Meyers IG # 0.02 10e3/ul Normal 0.00-0.03 [facility] Comment on above: Performed By: #### T SH, CMP, LDH #### [facility] [address] [place] [address] Dr. Alesia Meyers IG % 0.3 % Normal 0.0-0.5 [facility] Comment on above: Performed By: #### T SH, CMP, LDH #### [facility] [address] [place] [address] Dr. Alesia Meyers LYMPH # 2.3 103/ul Normal 1.2-3.8 [facility] Comment on above: Performed By: #### T SH, CMP, LDH #### [facility] [address] [place] [address] Dr. Alesia Meyers Lymphocytes/100 WBC (Bld) 35.0 % Normal 20.5-60.0 [facility] Comment on above: Performed By: #### T SH, CMP, LDH #### [facility] [address] [address] [address] Alesia Meyers MANUAL DIFF REQ NO Normal [facility] Comment on above: Performed By: #### T SH, CMP, LDH #### [facility] [address] [place] [address] Dr. Alesia Meyers MCH (RBC) [Entitic mass] 29.3 pg Normal 26.7-34.0 [facility] Comment on above: Performed By: #### T SH, CMP, LDH #### [facility] [address] [place] [address] Dr. Alesia Meyers MCHC (RBC) [Mass/Vol] 33.6 g/dL Normal 29.9-35.2 [facility] Comment on above: Performed By: #### T SH, CMP, LDH #### [facility] [address] [place] [address] Dr. Alesia Meyers MCV (RBC) [Entitic vol] 87.2 fL Normal 81.0-99.0 [facility] Comment on above: Performed By: #### T SH, CMP, LDH #### [facility] [address] [place] [address] Dr. Alesia Meyers MONO # 0.6 103/ul Normal 0.3-0.8 [facility] Comment on above: Performed By: #### T SH, CMP, LDH #### [facility] [address] [place] [address] Dr. Alesia Meyers Monocytes/100 WBC (Bld) 8.8 % Normal 1.7-12.0 [facility] Comment on above: Performed By: #### T SH, CMP, LDH #### [facility] [address] [place] [address] Dr. Alesia Meyers NEUT # 3.5 103/ul Normal 1.4-6.5 [facility] Comment on above: Performed By: #### T SH, CMP, LDH #### [facility] [address] [place] [address] Dr. Alesia Meyers Neutrophils/100 WBC (Bld) 53.3 % Normal 43.0-75.0 [facility] Comment on above: Performed By: #### T SH, CMP, LDH #### [facility] [address] [place] [address] Dr. Alesia Meyers Platelet mean volume (Bld) [Entitic vol] 9.0 fL Critically low 9.5-13.5 [facility] Comment on above: Performed By: #### T SH, CMP, LDH #### [facility] [address] [place] [address] Dr. Alesia Meyers PLT 230 103/ul Normal 150-450 [facility] Comment on above: Performed By: #### T SH, CMP, LDH #### [facility] [address] [place] [address] Dr. Alesia Meyers RBC 4.61 106/ul Normal 4.20-5.40 [facility] Comment on above: Performed By: #### T SH, CMP, LDH #### [facility] [address] [place] [address] Dr. Alesia Meyers WBC 6.6 103/ul Normal 4.0-11.0 [facility] Comment on above: Performed By: #### T SH, CMP, LDH #### [facility] [address] [place] [address] Dr. Alesia Meyers FREE T4on 06-20-2022 Free T4 [Mass/Vol] 1.15 ng/dL Normal 0.76-1.46 [facility] Comment on above: Performed By: #### T SH, CMP, LDH #### [facility] [address] [place] [address] Dr. Alesia Meyers LDHon 06-20-2022 LDH 224 U/L Normal 81-234 [facility] Comment on above: Performed By: #### T SH, CMP, LDH #### [facility] [address] [place] [address] Dr. Alesia Meyers LIPASEon 06-20-2022 Lipase [Catalytic activity/Vol] 78.0 U/L Normal 73.0-393.0 [facility] Comment on above: Performed By: #### T SH, CMP, LDH #### [facility] [address] [address] [address] Alesia Meyers LIPID PROFILEon 06-20-2022 CHOL-HDL RATIO NORM SEE BELOW Normal [facility] Comment on above: Result Comment: 3.3 - 4.4 LOW RISK 4.4 - 7.1 AVERAGE RISK 7.1 - 11.0 MODERATE RISK >11.0 HIGH RISK Performed By: #### T SH, CMP, LDH #### [facility] [address] [address] [address] Alesia Meyers Cholesterol [Mass/Vol] 153 mg/dL Normal <=200 [facility] Comment on above: Performed By: #### T SH, CMP, LDH #### [facility] [address] [address] [address] Alesia Meyers Cholesterol in HDL [Mass/Vol] 80 mg/dL Critically high 40-60 [facility] Comment on above: Performed By: #### T SH, CMP, LDH #### [facility] [address] [address] [address] Alesia Meyers Cholesterol in LDL [Mass/Vol] 52.8 mg/dL Normal [facility] Comment on above: Performed By: #### T SH, CMP, LDH #### [facility] [address] [address] [address] Alesia Meyers Cholesterol.total/Chol esterol in HDL [Mass ratio] 1.9 {ratio} Normal [facility] Comment on above: Performed By: #### T SH, CMP, LDH #### [facility] [address] [address] [address] Alesia Meyers HDL NORMAL > or = 60 mg/dl - LO W CARDIOVASCULAR RISK <40 mg/dl - HIGH CARDIOVASCULAR RISK Normal [facility] Comment on above: Performed By: #### T SH, CMP, LDH #### [facility] [address] [id number] [address] Alesia Meyers LDL CALC NORMAL SEE BELOW Normal [facility] Comment on above: Result Comment: <100 mg/dl OPTIMAL 100 - 129 mg/dl NEAR OR ABOVE OPTIMAL 130 - 159 mg/dl BORDERLINE HIGH 160 - 189 mg/dl HIGH >190 mg/dl VERY HIGH Performed By: #### T SH, CMP, LDH #### [facility] [address] [address] [address] Alesia Meyers Triglyceride [Mass/Vol] 101 mg/dL Normal <=150 [facility] Comment on above: Performed By: #### T SH, CMP, LDH #### [facility] [address] [address] [address] Alesia Meyers VLDL CALC 20.2 mg/dL Normal [facility] Comment on above: Performed By: #### T SH, CMP, LDH #### [facility] [address] [address] [address] Alesia Meyers LIVER PROFILEon 06-20-2022 Albumin [Mass/Vol] 3.5 g/dL Normal 3.4-5.0 [facility] Comment on above: Performed By: #### T SH, CMP, LDH #### [facility] [address] [address] [address] Alesia Meyers Albumin/Globulin [Mass ratio] 0.9 {ratio} Normal [facility] Comment on above: Performed By: #### T SH, CMP, LDH #### [facility] [address] [address] [address] Alesia Meyers ALP [Catalytic activity/Vol] 109 U/L Normal 46-116 [facility] Comment on above: Performed By: #### T SH, CMP, LDH #### [facility] [address] [address] [address] Alesia Meyers ALT [Catalytic activity/Vol] 39 U/L Normal 14-59 [facility] Comment on above: Performed By: #### T SH, CMP, LDH #### [facility] [address] [address] [address] Alesia Meyers AST [Catalytic activity/Vol] 34 U/L Normal 15-37 [facility] Comment on above: Performed By: #### T SH, CMP, LDH #### [facility] [address] [address] [address] Alesia Meyers BILI, CONJUGATED 0.1 mg/dL Normal 0.0-0.2 [facility] Comment on above: Performed By: #### T SH, CMP, LDH #### [facility] [address] [place] [address] Dr. Alesia Meyers Bilirubin [Mass/Vol] 0.4 mg/dL Normal 0.2-1.0 [facility] Comment on above: Performed By: #### T SH, CMP, LDH #### [facility] [address] [place] [address] Dr. Alesia Meyers Globulin (S) [Mass/Vol] 3.7 g/dL Normal [facility] Comment on above: Performed By: #### T SH, CMP, LDH #### [facility] [address] [place] [address] Dr. Alesia Meyers Protein [Mass/Vol] 7.2 g/dL Normal 6.4-8.2 [facility] Comment on above: Performed By: #### T SH, CMP, LDH #### [facility] [address] [place] [address] Dr. Alesia Meyers PROF CHEM 8 (BAS METB)on Anion gap [Moles/Vol] 11.4 mmol/L Normal [facility] Comment on above: Performed By: #### T SH, CMP, LDH #### [facility] [address] [place] [address] Dr. Alesia Meyers Calcium [Mass/Vol] 9.1 mg/dL Normal 8.5-10.1 [facility] Comment on above: Performed By: #### T SH, CMP, LDH #### [facility] [address] [place] [address] Dr. Alesia Meyers Chloride [Moles/Vol] 103 mmol/L Normal 98-107 [facility] Comment on above: Performed By: #### T SH, CMP, LDH #### [facility] [address] [place] [address] Dr. Alesia Meyers CO2 [Moles/Vol] 31.2 mmol/L Normal 21.0-32.0 [facility] Comment on above: Performed By: #### T SH, CMP, LDH #### [facility] [address] [address] [address] Alesia Meyers Creatinine [Mass/Vol] 0.90 mg/dL Normal 0.55-1.02 [facility] Comment on above: Performed By: #### T SH, CMP, LDH #### [facility] [address] [address] [address] Alesia Meyers EGFR-AF JAPANESE >60 Normal >=60 [facility] Comment on above: Performed By: #### T SH, CMP, LDH #### [facility] [address] [address] [address] Alesia Meyers EGFR-NON AF JAPANESE >60 Normal >=60 [facility] Comment on above: Performed By: #### T SH, CMP, LDH #### [facility] [address] [address] [address] Alesia Meyers Glucose [Mass/Vol] 105 mg/dL Normal 74-106 [facility] Comment on above: Performed By: #### T SH, CMP, LDH #### [facility] [address] [address] [address] Alesia Meyers Potassium [Moles/Vol] 3.6 mmol/L Normal 3.5-5.1 [facility] Comment on above: Performed By: #### T SH, CMP, LDH #### [facility] [address] [address] [address] Alesia Meyers Sodium [Moles/Vol] 142 mmol/L Normal 136-145 [facility] Comment on above: Performed By: #### T SH, CMP, LDH #### [facility] [address] [address] [address] Alesia Meyers Urea nitrogen [Mass/Vol] 22.0 mg/dL Critically high 7.0-18.0 [facility] Comment on above: Performed By: #### T SH, CMP, LDH #### [facility] [address] [address] [address] Alesia Meyers Urea nitrogen/Creatinine [Mass ratio] 24.4 mg/mg Normal [facility] Comment on above: Performed By: #### T SH, CMP, LDH #### [facility] [address] [address] [address] Alesia Meyers TSHon 06-20-2022 TSH 3.302 uIU/mL Normal 0.358-3.74 0 [facility] Comment on above: Performed By: #### T SH, CMP, LDH #### [facility] [address] [place] [address] Dr. Alesia Meyers ACTH, PLASMAon 05-31-2022 ACTH, Plasma 28.5 pg/mL Normal 7.2-63.3 [facility] Comment on above: Result Comment: ACTH reference interval for samples collected between 7 and 10 AM. Performed By: #### T SH, CMP, LDH #### [facility] [address] [place] [address] Dr. Alesia Meyers CORTISOLon 05-31-2022 Cortisol 17.2 ug/dL Normal [facility] Comment on above: Result Comment: Melvin isol AM 6.2 - 19.4 Cortisol PM 2.3 - 11.9 Performed By: #### T SH, CMP, LDH #### [facility] [address] [place] [address] Dr. Alesia Meyers CBC AUTO DIFFon 05-30-2022 BASO # 0.0 103/ul Normal 0.0-0.1 [facility] Comment on above: Performed By: #### T SH, CMP, LDH #### [facility] [address] [place] [address] Dr. Alesia Meyers Basophils/100 WBC (Bld) 0.4 % Normal 0.2-2.0 [facility] Comment on above: Performed By: #### T SH, CMP, LDH #### [facility] [address] [place] [address] Dr. Alesia Meyers EO # 0.1 103/ul Normal 0.0-0.7 [facility] Comment on above: Performed By: #### T SH, CMP, LDH #### [facility] [address] [place] [address] Dr. Alesia Meyers Eosinophils/100 WBC (Bld) 2.1 % Normal 0.9-7.0 [facility] Comment on above: Performed By: #### T SH, CMP, LDH #### [facility] [address] [place] [address] Dr. Alesia Meyers Erythrocyte distribution width (RBC) [Ratio] 12.9 % Normal 11.0-15.0 [facility] Comment on above: Performed By: #### T SH, CMP, LDH #### [facility] [address] [place] [address] Dr. Alesia Meyers Hematocrit (Bld) [Volume fraction] 41.0 % Normal 36.0-48.0 [facility] Comment on above: Performed By: #### T SH, CMP, LDH #### [facility] [address] [place] [address] Dr. Alesia Meyers Hemoglobin (Bld) [Mass/Vol] 13.5 g/dL Normal 12.0-16.0 [facility] Comment on above: Performed By: #### T SH, CMP, LDH #### [facility] [address] [place] [address] Dr. Alesia Meyers IG # 0.02 10e3/ul Normal 0.00-0.03 [facility] Comment on above: Performed By: #### T SH, CMP, LDH #### [facility] [address] [place] [address] Dr. Alesia Meyers IG % 0.3 % Normal 0.0-0.5 [facility] Comment on above: Performed By: #### T SH, CMP, LDH #### [facility] [address] [place] [address] Dr. Alesia Meyers LYMPH # 2.1 103/ul Normal 1.2-3.8 [facility] Comment on above: Performed By: #### T SH, CMP, LDH #### [facility] [address] [place] [address] Dr. Alesia Meyers Lymphocytes/100 WBC (Bld) 30.5 % Normal 20.5-60.0 [facility] Comment on above: Performed By: #### T SH, CMP, LDH #### [facility] [address] [place] [address] Dr. Alesia Meyers MANUAL DIFF REQ NO Normal [facility] Comment on above: Performed By: #### T SH, CMP, LDH #### [facility] [address] [place] [address] Dr. Alesia Meyers MCH (RBC) [Entitic mass] 28.6 pg Normal 26.7-34.0 [facility] Comment on above: Performed By: #### T SH, CMP, LDH #### [facility] [address] [place] [address] Dr. Alesia Meyers MCHC (RBC) [Mass/Vol] 32.9 g/dL Normal 29.9-35.2 [facility] Comment on above: Performed By: #### T SH, CMP, LDH #### [facility] [address] [place] [address] Dr. Alesia Meyers MCV (RBC) [Entitic vol] 86.9 fL Normal 81.0-99.0 [facility] Comment on above: Performed By: #### T SH, CMP, LDH #### [facility] [address] [place] [address] Dr. Alesia Meyers MONO # 0.5 103/ul Normal 0.3-0.8 [facility] Comment on above: Performed By: #### T SH, CMP, LDH #### [facility] [address] [place] [address] Dr. Alesia Meyers Monocytes/100 WBC (Bld) 7.8 % Normal 1.7-12.0 [facility] Comment on above: Performed By: #### T SH, CMP, LDH #### [facility] [address] [place] [address] Dr. Alesia Meyers NEUT # 4.0 103/ul Normal 1.4-6.5 [facility] Comment on above: Performed By: #### T SH, CMP, LDH #### [facility] [address] [place] [address] Dr. Alesia Meyers Neutrophils/100 WBC (Bld) 58.9 % Normal 43.0-75.0 [facility] Comment on above: Performed By: #### T SH, CMP, LDH #### [facility] [address] [address] [address] Alesia Meyers Platelet mean volume (Bld) [Entitic vol] 9.0 fL Critically low 9.5-13.5 [facility] [facility] Comment on above: Performed By: #### T SH, CMP, LDH #### [facility] [address] [place] [address] Dr. Alesia Meyers PLT 224 103/ul Normal 150-450 [facility] Comment on above: Performed By: #### T SH, CMP, LDH #### [facility] [address] [place] [address] Dr. Alesia Meyers RBC 4.72 106/ul Normal 4.20-5.40 [facility] Comment on above: Performed By: #### T SH, CMP, LDH #### [facility] [address] [place] [address] Dr. Alesia Meyers WBC 6.8 103/ul Normal 4.0-11.0 [facility] Comment on above: Performed By: #### T SH, CMP, LDH #### [facility] [address] [place] [address] Dr. Alesia Meyers FREE T4on 05-30-2022 Free T4 [Mass/Vol] 1.19 ng/dL Normal 0.76-1.46 [facility] Comment on above: Performed By: #### T SH, CMP, LDH #### [facility] [address] [place] [address] Dr. Alesia Meyers LDHon 05-30-2022 LDH 231 U/L Normal 81-234 [facility] Comment on above: Performed By: #### F T4 #### [facility] [address] [place] [address] Dr. Alesia Meyers LIPASEon 05-30-2022 Lipase [Catalytic activity/Vol] 76.0 U/L Normal 73.0-393.0 [facility] Comment on above: Performed By: #### F T4 #### [facility] [address] [place] [address] Dr. Alesia Meyers LIVER PROFILEon 05-30-2022 Albumin [Mass/Vol] 3.5 g/dL Normal 3.4-5.0 [facility] Comment on above: Performed By: #### F T4 #### [facility] [address] [place] [address] Dr. Alesia Meyers Albumin/Globulin [Mass ratio] 0.9 {ratio} Normal [facility] Comment on above: Performed By: #### F T4 #### [facility] [address] [place] [address] Dr. Alesia Meyers ALP [Catalytic activity/Vol] 128 U/L Critically high 46-116 [facility] Comment on above: Performed By: #### F T4 #### [facility] [address] [place] [address] Dr. Alesia Meyers ALT [Catalytic activity/Vol] 35 U/L Normal 14-59 [facility] Comment on above: Performed By: #### F T4 #### [facility] [address] [place] [address] Dr. Alesia Meyers AST [Catalytic activity/Vol] 25 U/L Normal 15-37 [facility] Comment on above: Performed By: #### F T4 #### [facility] [address] [place] [address] Dr. Alesia Meyers BILI, CONJUGATED 0.1 mg/dL Normal 0.0-0.2 [facility] Comment on above: Performed By: #### F T4 #### [facility] [address] [place] [address] Dr. Alesia Meyers Bilirubin [Mass/Vol] 0.4 mg/dL Normal 0.2-1.0 [facility] Comment on above: Performed By: #### F T4 #### [facility] [address] [place] [address] Dr. Alesia Meyers Globulin (S) [Mass/Vol] 3.7 g/dL Normal [facility] Comment on above: Performed By: #### F T4 #### [facility] [address] [place] [address] Dr. Alesia Meyers Protein [Mass/Vol] 7.2 g/dL Normal 6.4-8.2 [facility] Comment on above: Performed By: #### F T4 #### [facility] [address] [address] [address] Alesia Meyers PROF CHEM 8 (BAS METB)on Anion gap [Moles/Vol] 7.3 mmol/L Normal [facility] Comment on above: Performed By: #### F T4 #### [facility] [address] [place] [address] Dr. Alesia Meyers Calcium [Mass/Vol] 9.0 mg/dL Normal 8.5-10.1 [facility] Comment on above: Performed By: #### F T4 #### [facility] [address] [place] [address] Dr. Alesia Meyers Chloride [Moles/Vol] 102 mmol/L Normal 98-107 [facility] Comment on above: Performed By: #### F T4 #### [facility] [address] [place] [address] Dr. Alesia Meyers CO2 [Moles/Vol] 32.3 mmol/L Critically high 21.0-32.0 [facility] Comment on above: Performed By: #### F T4 #### [facility] [address] [place] [address] Dr. Alesia Meyers Creatinine [Mass/Vol] 0.94 mg/dL Normal 0.55-1.02 [facility] Comment on above: Performed By: #### F T4 #### [facility] [address] [place] [address] Dr. Alesia Meyers EGFR-AF JAPANESE >60 Normal >=60 [facility] Comment on above: Performed By: #### F T4 #### [facility] [address] [address] [address] Alesia Meyers EGFR-NON AF JAPANESE 58 mL/min/1.73m2 Critically low >=60 [facility] Comment on above: Performed By: #### F T4 #### [facility] [address] [place] [address] Dr. Alesia Meyers Glucose [Mass/Vol] 108 mg/dL Critically high 74-106 [facility] Comment on above: Performed By: #### F T4 #### [facility] [address] [address] [address] Alesia Meyers Potassium [Moles/Vol] 3.6 mmol/L Normal 3.5-5.1 [facility] Comment on above: Performed By: #### F T4 #### [facility] [address] [address] [address] Alesia Meyers Sodium [Moles/Vol] 138 mmol/L Normal 136-145 [facility] Comment on above: Performed By: #### F T4 #### [facility] [address] [address] [address] Alesia Meyers Urea nitrogen [Mass/Vol] 24.0 mg/dL Critically high 7.0-18.0 [facility] Comment on above: Performed By: #### F T4 #### [facility] [address] [place] [address] Dr. Alesia Meyers Urea nitrogen/Creatinine [Mass ratio] 25.5 mg/mg Normal [facility] Comment on above: Performed By: #### F T4 #### [facility] [address] [address] [address] Alesia Meyers TSHon 05-30-2022 TSH 2.605 uIU/mL Normal 0.358-3.74 0 [facility] Comment on above: Performed By: #### F T4 #### [facility] [address] [place] [address] Dr. Alesia Meyers ACTH, PLASMAon 05-14-2022 ACTH, Plasma 17.0 pg/mL Normal 7.2-63.3 [facility] Comment on above: Result Comment: ACTH reference interval for samples collected between 7 and 10 AM. Performed By: #### A CTHP #### [facility] [address] [place] [address] Dr. Alesia Meyers ACTH, PLASMAon 05-12-2022 ACTH, Plasma WRORD Normal [facility] Comment on above: Result Comment: Test not performed. The required specimen for the test ordered was not received. received refrigerate plasma edta contacted Sheyla at your facility on 05-12-2022 ACTH reference interval for samples collected between 7 and 10 AM. Performed By: #### F T4 #### [facility] [address] [address] [address] Alesia Meyers Albumin [Mass/volume] in Ser um or PlasmaOrdered By: Sly Benson on 05-12-2022 Albumin [Mass/Vol] 3.5 g/dL 3.2-5.5 [facility] Direct bilirubin measurement Ordered By: Sly Benson on 05-12-2022 Bilirubin.direct [Mass/Vol] mg/dL 0.0-0.4 [facility] Globulin Calc (S) [Mass/Vol] Ordered By: Sly Benson on 05-12-2022 Globulin (S) [Mass/Vol] 3.0 g/dL [facility] - Chemistry and C hemistry - challengeOrdered By: Sly Benson on 05-12-2022 Lipase [Catalytic activity/Vol] 26.0 U/L 22-51 [facility] Lactate dehydrogenase measur ement (enzymatic activity/volume)Ordered By: Sly Benson on 05-12-2022 LDH (Unsp spec) [Catalytic activity/Vol] 199 U/L 45-190 [facility] No Panel InformationOrdered By: Sly Benson on 05-12-2022 Adrenocorticotropic Hormone 243.0 pg/mL 7.2-63.3 [facility] Comment on above: ACTH reference inter jamel for samples collected between 7 and10 AM.Performed at: [address] [id number] Director: Coleman Lacy PhD, Phone: [phone] Protein [Mass/volume] in Ser um or PlasmaOrdered By: Sly Benson on 05-12-2022 Protein [Mass/Vol] 6.5 g/dL 6.1-7.9 [facility] Random cortisol measurementO rdered By: Sly Benson on 05-12-2022 Cortisol [Mass/Vol] 14.6 ug/dL [facility] Comment on above: Reference range: AM 6 - 24 ug/dl PM <10 ug/dl Serum or plasma alanine castro otransferase measurement without P-5'-P (enzymatic activiOrdered By: Sly Benson on 05-12-2022 ALT No additional P-5'-P [Catalytic activity/Vol] 31 U/L [facility] Serum or plasma albumin/glob ulin mass ratioOrdered By: Sly Benson on 05-12-2022 Albumin/Globulin [Mass ratio] 1.2 {ratio} [facility] Serum or plasma alkaline halle sphatase measurement (enzymatic activity/volume)Ordered By: Sly Benson on 05-12-2022 ALP [Catalytic activity/Vol] 112 U/L [facility] Serum or plasma aspartate am inotransferase measurement (enzymatic activity/volume)Ordered By: Sly Benson on 05-12-2022 AST [Catalytic activity/Vol] 33 U/L [facility] Serum or plasma non-glucuron idated bilirubin measurement (mass/volume)Ordered By: Sly Benson on 05-12-2022 Bilirubin.indirect [Mass/Vol] TNP [facility] Comment on above: Test not performed Serum or plasma total biliru bin measurement (mass/volume)Ordered By: Sly Benson on 05-12-2022 Bilirubin [Mass/Vol] 0.8 mg/dL 0.3-1.2 [facility] Thyroxine (T4) free [Mass/vo lume] in Serum or PlasmaOrdered By: Sly Benson on 05-12-2022 Free T4 [Mass/Vol] 1.17 ng/dL 0.61-1.12 [facility] CORTISOLon 05-11-2022 Cortisol 15.4 ug/dL Normal [facility] Comment on above: Result Comment: Melvin isol AM 6.2 - 19.4 Cortisol PM 2.3 - 11.9 Performed By: #### T SH, CMP, LDH #### [facility] [address] [place], [place] [address] Dr. Alesia Meyers CBC AUTO DIFFon 05-10-2022 BASO # 0.0 103/ul Normal 0.0-0.1 [facility] Comment on above: Performed By: #### C BC #### [facility] [address] [place] [address] Dr. Alesia Meyers Basophils/100 WBC (Bld) 0.3 % Normal 0.2-2.0 [facility] Comment on above: Performed By: #### C BC #### [facility] [address] [place] [address] Dr. Alesia Meyers EO # 0.2 103/ul Normal 0.0-0.7 [facility] Comment on above: Performed By: #### C BC #### [facility] [address] [place] [address] Dr. Alesia Meyers Eosinophils/100 WBC (Bld) 2.5 % Normal 0.9-7.0 [facility] Comment on above: Performed By: #### C BC #### [facility] [address] [place] [address] Dr. Alesia Meyers Erythrocyte distribution width (RBC) [Ratio] 13.2 % Normal 11.0-15.0 [facility] Comment on above: Performed By: #### C BC #### [facility] [address] [place] [address] Dr. Alesia Meyers Hematocrit (Bld) [Volume fraction] 39.1 % Normal 36.0-48.0 [facility] Comment on above: Performed By: #### C BC #### [facility] [address] [place] [address] Dr. Alesia Meyers Hemoglobin (Bld) [Mass/Vol] 12.9 g/dL Normal 12.0-16.0 [facility] Comment on above: Performed By: #### C BC #### [facility] [address] [place] [address] Dr. Alesia Meyers IG # 0.01 10e3/ul Normal 0.00-0.03 [facility] Comment on above: Performed By: #### C BC #### [facility] [address] [place] [address] Dr. Alesia Meyers IG % 0.2 % Normal 0.0-0.5 [facility] Comment on above: Performed By: #### C BC #### [facility] [address] [place] [address] Dr. Alesia Meyers LYMPH # 1.9 103/ul Normal 1.2-3.8 [facility] Comment on above: Performed By: #### C BC #### [facility] [address] [place] [address] Dr. Alesia Meyers Lymphocytes/100 WBC (Bld) 32.2 % Normal 20.5-60.0 [facility] Comment on above: Performed By: #### C BC #### [facility] [address] [place] [address] Dr. Alesia Meyers MANUAL DIFF REQ NO Normal [facility] Comment on above: Performed By: #### C BC #### [facility] [address] [place] [address] Dr. Alesia Meyers MCH (RBC) [Entitic mass] 29.0 pg Normal 26.7-34.0 [facility] Comment on above: Performed By: #### C BC #### [facility] [address] [place] [address] Dr. Alesia Meyers MCHC (RBC) [Mass/Vol] 33.0 g/dL Normal 29.9-35.2 [facility] Comment on above: Performed By: #### C BC #### [facility] [address] [place] [address] Dr. Alesia Meyers MCV (RBC) [Entitic vol] 87.9 fL Normal 81.0-99.0 [facility] Comment on above: Performed By: #### C BC #### [facility] [address] [place] [address] Dr. Alesia Meyers MONO # 0.5 103/ul Normal 0.3-0.8 [facility] Comment on above: Performed By: #### C BC #### [facility] [address] [place] [address] Dr. Alesia Meyers Monocytes/100 WBC (Bld) 8.5 % Normal 1.7-12.0 [facility] Comment on above: Performed By: #### C BC #### [facility] [address] [place] [address] Dr. Alesia Meyers NEUT # 3.3 103/ul Normal 1.4-6.5 [facility] Comment on above: Performed By: #### C BC #### [facility] [address] [place] [address] Dr. Alesia Meyers Neutrophils/100 WBC (Bld) 56.3 % Normal 43.0-75.0 [facility] Comment on above: Performed By: #### C BC #### [facility] [address] [place] [address] Dr. Alesia Meyers Platelet mean volume (Bld) [Entitic vol] 9.6 fL Normal 9.5-13.5 [facility] Comment on above: Performed By: #### C BC #### [facility] [address] [place] [address] Dr. Alesia Meyers PLT 210 103/ul Normal 150-450 [facility] Comment on above: Performed By: #### C BC #### [facility] [address] [place] [address] Dr. Alesia Meyers RBC 4.45 106/ul Normal 4.20-5.40 [facility] Comment on above: Performed By: #### C BC #### [facility] [address] [place] [address] Dr. Alesia Meyers WBC 5.9 103/ul Normal 4.0-11.0 [facility] Comment on above: Performed By: #### C BC #### [facility] [address] [place] [address] Dr. Alesia Meyers FREE T4on 05-10-2022 Free T4 [Mass/Vol] 1.19 ng/dL Normal 0.76-1.46 [facility] Comment on above: Performed By: #### F T4 #### [facility] [address] [place] [address] Dr. Alesia Meyers LDHon 05-10-2022 LDH 252 U/L Critically high 81-234 [facility] Comment on above: Performed By: #### T SH, CMP, LDH #### [facility] [address] [place] [address] Dr. Alesia Meyers LIPASEon 05-10-2022 Lipase [Catalytic activity/Vol] 70.0 U/L Critically low 73.0-393.0 [facility] Comment on above: Performed By: #### T SH, CMP, LDH #### [facility] [address] [place] [address] Dr. Alesia Meyers LIVER PROFILEon 05-10-2022 Albumin [Mass/Vol] 3.3 g/dL Critically low 3.4-5.0 [facility] Comment on above: Performed By: #### T SH, CMP, LDH #### [facility] [address] [place] [address] Dr. Alesia Meyers Albumin/Globulin [Mass ratio] 0.9 {ratio} Normal [facility] Comment on above: Performed By: #### T SH, CMP, LDH #### [facility] [address] [place] [address] Dr. Alesia Meyers ALP [Catalytic activity/Vol] 129 U/L Critically high 46-116 [facility] Comment on above: Performed By: #### T SH, CMP, LDH #### [facility] [address] [place] [address] Dr. Alesia Meyers ALT [Catalytic activity/Vol] 35 U/L Normal 14-59 [facility] Comment on above: Performed By: #### T SH, CMP, LDH #### [facility] [address] [place] [address] Dr. Alesia Meyers AST [Catalytic activity/Vol] 36 U/L Normal 15-37 [facility] Comment on above: Performed By: #### T SH, CMP, LDH #### [facility] [address] [place] [address] Dr. Alesia Meyers BILI, CONJUGATED 0.1 mg/dL Normal 0.0-0.2 [facility] Comment on above: Performed By: #### T SH, CMP, LDH #### [facility] [address] [place] [address] Dr. Alesia Meyers Bilirubin [Mass/Vol] 0.4 mg/dL Normal 0.2-1.0 [facility] Comment on above: Performed By: #### T SH, CMP, LDH #### [facility] [address] [place] [address] Dr. Alesia Meyers Globulin (S) [Mass/Vol] 3.7 g/dL Normal [facility] Comment on above: Performed By: #### T SH, CMP, LDH #### [facility] [address] [place] [address] Dr. Alesia Meyers Protein [Mass/Vol] 7.0 g/dL Normal 6.4-8.2 [facility] Comment on above: Performed By: #### T SH, CMP, LDH #### [facility] [address] [place] [address] Dr. Alesia Meyers PROF CHEM 8 (BAS METB)on Anion gap [Moles/Vol] 11.7 mmol/L Normal [facility] Comment on above: Performed By: #### T SH, CMP, LDH #### [facility] [address] [place] [address] Dr. Alesia Meyers Calcium [Mass/Vol] 8.9 mg/dL Normal 8.5-10.1 [facility] Comment on above: Performed By: #### T SH, CMP, LDH #### [facility] [address] [place] [address] Dr. Alesia Meyers Chloride [Moles/Vol] 104 mmol/L Normal 98-107 [facility] Comment on above: Performed By: #### T SH, CMP, LDH #### [facility] [address] [place] [address] Dr. Alesia Meyers CO2 [Moles/Vol] 29.3 mmol/L Normal 21.0-32.0 [facility] Comment on above: Performed By: #### T SH, CMP, LDH #### [facility] [address] [place] [address] Dr. Alesia Meyers Creatinine [Mass/Vol] 0.84 mg/dL Normal 0.55-1.02 [facility] Comment on above: Performed By: #### T SH, CMP, LDH #### [facility] [address] [place] [address] Dr. Alesia Meyers EGFR-AF JAPANESE >60 Normal >=60 [facility] Comment on above: Performed By: #### T SH, CMP, LDH #### [facility] [address] [place] [address] Dr. Alesia Meyers EGFR-NON AF JAPANESE >60 Normal >=60 [facility] Comment on above: Performed By: #### T SH, CMP, LDH #### [facility] [address] [place] [address] Dr. Alesia Meyers Glucose [Mass/Vol] 109 mg/dL Critically high 74-106 [facility] Comment on above: Performed By: #### T SH, CMP, LDH #### [facility] [address] [place] [address] Dr. Alesia Meyers Potassium [Moles/Vol] 4.0 mmol/L Normal 3.5-5.1 [facility] Comment on above: Performed By: #### T SH, CMP, LDH #### [facility] [address] [place] [address] Dr. Alesia Meyers Sodium [Moles/Vol] 141 mmol/L Normal 136-145 [facility] Comment on above: Performed By: #### T SH, CMP, LDH #### [facility] [address] [place] [address] Dr. Alesia Meyers Urea nitrogen [Mass/Vol] 19.0 mg/dL Critically high 7.0-18.0 [facility] Comment on above: Performed By: #### T SH, CMP, LDH #### [facility] [address] [place] [address] Dr. Alesia Meyers Urea nitrogen/Creatinine [Mass ratio] 22.6 mg/mg Normal [facility] Comment on above: Performed By: #### T SH, CMP, LDH #### [facility] [address] [place] [address] Dr. Alesia Meyers TSHon 05-10-2022 TSH 3.114 uIU/mL Normal 0.358-3.74 0 [facility] Comment on above: Performed By: #### T SH, CMP, LDH #### [facility] [address] [address] [address] Alesia Meyers Activated partial thrombopla stin time (aPTT) in platelet poor plasma by coagulation aOrdered By: Sly Benson on 04-28-2022 aPTT Coag (PPP) [Time] 28.1 s 25.1-36.5 [facility] Albumin [Mass/volume] in Ser um or PlasmaOrdered By: Sly Benson on 04-28-2022 Albumin [Mass/Vol] 3.5 g/dL 3.2-5.5 [facility] Basophils Auto (Bld) [#/Vol] Ordered By: Sly Benson on 04-28-2022 Basophils (Bld) [#/Vol] 0.0 10*3/uL 0.0-0.2 [facility] Basophils/100 WBC Auto (Bld) Ordered By: Sly Benson on 04-28-2022 Basophils/100 WBC (Bld) 0.5 % . [facility] Creatinine and Glomerular fi ltration rate.predicted panel (S/P/Bld)Ordered By: Sly Benson on 04-28-2022 Creatinine [Mass/Vol] 0.84 mg/dL 0.44-1.03 [facility] Eosinophils Auto (Bld) [#/Vo l]Ordered By: Sly Benson on 04-28-2022 Eosinophils (Bld) [#/Vol] 0.1 10*3/uL 0.0-0.45 [facility] Eosinophils/100 WBC Auto (Bl d)Ordered By: Sly Benson on 04-28-2022 Eosinophils/100 WBC (Bld) 1.1 % . [facility] Erythrocyte distribution wid th Auto (RBC) [Ratio]Ordered By: Sly Benson on 04-28-2022 Erythrocyte distribution width (RBC) [Ratio] 14.1 % 11.9-15.3 [facility] Erythrocyte sedimentation ra te by Photometric methodOrdered By: Sly Benson on 04-28-2022 ESR Photometric method (Bld) [Velocity] 31 mm/hr 0-29 [facility] Estimated glomerular filtrat ion rate (GFR) non- AmericanOrdered By: Sly Benson on 04-28-2022 GFR/1.73 sq M.predicted among non-blacks MDRD (S/P/Bld) [Vol rate/Area] > 60 mL/Min [facility] Globulin Calc (S) [Mass/Vol] Ordered By: Sly Benson on 04-28-2022 Globulin (S) [Mass/Vol] 2.9 g/dL [facility] Hematocrit Auto (Bld) [Volum e fraction]Ordered By: Sly Benson on 04-28-2022 Hematocrit (Bld) [Volume fraction] 40.5 % 34.0-46.4 [facility] Hemoglobin [Mass/volume] in BloodOrdered By: Sly Benson on 04-28-2022 Hemoglobin (Bld) [Mass/Vol] 13.6 g/dL 11.8-15.4 [facility] - CoagulationOrde red By: Sly Benson on 04-28-2022 PT Coag (PPP) [Time] 10.6 s 9.0-12.9 [facility] - Hematology and Cell countsOrdered By: Sly Benson on 04-28-2022 Nucleated RBC/100 WBC (Bld) [Ratio] 0.1 % 0-0.5 [facility] Leukocytes [#/volume] in Blo od by Automated countOrdered By: Sly Benson on 04-28-2022 WBC (Bld) [#/Vol] 6.9 10*3/uL 4.5-11.0 [facility] Lymphocytes Auto (Bld) [#/Vo l]Ordered By: Sly Benson on 04-28-2022 Lymphocytes (Bld) [#/Vol] 2.0 10*3/uL 1.00-4.8 [facility] Lymphocytes/100 WBC Auto (Bl d)Ordered By: Sly Benson on 04-28-2022 Lymphocytes/100 WBC (Bld) 28.3 % . [facility] MCH Auto (RBC) [Entitic mass ]Ordered By: Sly Benson on 04-28-2022 MCH (RBC) [Entitic mass] 29.4 pg 24.7-34.3 [facility] MCHC Auto (RBC) [Mass/Vol]Or dered By: Sly Benson on 04-28-2022 MCHC (RBC) [Mass/Vol] 33.6 g/dL 32.0-35.0 [facility] MCV Auto (RBC) [Entitic vol] Ordered By: Sly Benson on 04-28-2022 MCV (RBC) [Entitic vol] 87.5 fL 80-100 [facility] Monocytes Auto (Bld) [#/Vol] Ordered By: Sly Benson on 04-28-2022 Monocytes (Bld) [#/Vol] 0.6 10*3/uL 0.0-0.8 [facility] Monocytes/100 WBC Auto (Bld) Ordered By: Sly Benson on 04-28-2022 Monocytes/100 WBC (Bld) 8.5 % . [facility] Neutrophils Auto (Bld) [#/Vo l]Ordered By: Sly Benson on 04-28-2022 Neutrophils (Bld) [#/Vol] 4.2 10*3/uL 1.8-7.7 [facility] Neutrophils/100 WBC Auto (Bl d)Ordered By: Sly Benson on 04-28-2022 Neutrophils/100 WBC (Bld) 61.6 % . [facility] No Panel InformationOrdered By: Sly Benson on 04-28-2022 Anti-Nuclear Antibody Comment 2 See comment . [facility] Comment on above: For more [...] titers Nucleosomes, Histones Drug-induced SLE Speckled Sm, HARD ROCK D[employer]LL OPERATOR, SCL-70, SLE,MCTD,PSS (diffuse form), SS-A/SS-B Sjogrens Nucleolar SCL-70, PM-1/SCL High titers Scleroderma, PM/DM Centromere Centromere PSS (limited form) w/Crest syndrome variable Nuclear Dot Sp100,x11-kjoims Primary Biliary Cirrhosis Nuclear GP210, Primary Biliary CirrhosisMembrane fish A,B,C Performed at: [facility] [place], [place] [id number] Director: Coleman Lacy PhD, Phone: [phone] Estimated GFR () > 60 mL/Min [facility] Comment on above: GFR estimated refere nce range: According to KDOQI guidelines, <60 ml/min/1.73m2 is sufficient to diagnose a patient with chronic kidney disease. Pharmacy Creatinine Clearance (Chem 60.78 [facility] Platelet mean volume Auto (B ld) [Entitic vol]Ordered By: Sly Benson on 04-28-2022 Platelet mean volume (Bld) [Entitic vol] 7.6 fL 6.3-10.7 [facility] Platelet poor plasma interna tional normalized ratio (INR) by coagulation assay (relatOrdered By: Sly Benson on 04-28-2022 INR Coag (PPP) [Relative time] 0.9 {INR} [facility] Comment on above: INR Therapeutic [...] 04-28-2022 Platelets (Bld) [#/Vol] 204 10*3/uL 150-450 [facility] Protein [Mass/volume] in Ser um or PlasmaOrdered By: Sly Benson on 04-28-2022 Protein [Mass/Vol] 6.4 g/dL 6.1-7.9 [facility] RBC Auto (Bld) [#/Vol]Ordere d By: Sly Benson on 04-28-2022 RBC (Bld) [#/Vol] 4.63 10*6/uL 3.60-5.00 [facility] Serum nuclear antibody titer Ordered By: Sly Benson on 04-28-2022 Nuclear Ab (S) [Titer] Positive . [facility] Comment on above: Negative <1:80 Borde rline 1:80 Positive >1:80 Serum or plasma alanine castro otransferase measurement without P-5'-P (enzymatic activiOrdered By: Sly Benson on 04-28-2022 ALT No additional P-5'-P [Catalytic activity/Vol] 34 U/L 10-60 [facility] Serum or plasma albumin/glob ulin mass ratioOrdered By: Sly Benson on 04-28-2022 Albumin/Globulin [Mass ratio] 1.2 {ratio} [facility] Serum or plasma alkaline halle sphatase measurement (enzymatic activity/volume)Ordered By: Sly Benson on 04-28-2022 ALP [Catalytic activity/Vol] 114 U/L 32-92 [facility] Serum or plasma anion gap de terminationOrdered By: Sly Benson on 04-28-2022 Anion gap [Moles/Vol] 11.9 mmol/L 6.0-15.0 [facility] Serum or plasma aspartate am inotransferase measurement (enzymatic activity/volume)Ordered By: Sly Benson on 04-28-2022 AST [Catalytic activity/Vol] 38 U/L 10 [facility] Serum or plasma calcium diamond urement (mass/volume)Ordered By: Sly Benson on 04-28-2022 Calcium [Mass/Vol] 8.9 mg/dL 8.2-10.2 [facility] Serum or plasma chloride zora surement (moles/volume)Ordered By: Sly Benson on 04-28-2022 Chloride [Moles/Vol] 105 mmol/L 95-114 [facility] Serum or plasma glucose diamond urement (mass/volume)Ordered By: Sly Benson on 04-28-2022 Glucose [Mass/Vol] 110 mg/dL 70-100 [facility] Comment on above: ADA recommended refe rence rangeRandom Glucose Reference Range is dependent on time and content of last meal. Glucose of more than 200 mg/dL in a nonstressed, ambulatory subject supports the diagnosis of Diabetes Mellitus. Serum or plasma potassium me asurement (moles/volume)Ordered By: Sly Benson on 04-28-2022 Potassium [Moles/Vol] 3.5 mmol/L 3.5-5.1 [facility] Serum or plasma sodium measu rement (moles/volume)Ordered By: Sly Benson on 04-28-2022 Sodium [Moles/Vol] 140 mmol/L 136-146 [facility] Serum or plasma total biliru bin measurement (mass/volume)Ordered By: Sly Benson on 04-28-2022 Bilirubin [Mass/Vol] 0.9 mg/dL 0.3-1.2 [facility] Serum or plasma total carbon dioxide measurement (moles/volume)Ordered By: Sly Benson on 04-28-2022 CO2 [Moles/Vol] 26.6 mmol/L 22.0-30.0 [facility] Serum or plasma urea nitroge n measurement (mass/volume)Ordered By: Sly Benson on 04-28-2022 Urea nitrogen [Mass/Vol] 16 mg/dL 9-23 [facility] Serum speckled pattern antin uclear antibody (BARRETT) titerOrdered By: Sly Benson on 04-28-2022 Speckled nuclear Ab pattern (S) [Titer] 1:160 . [facility] Comment on above: ICAP nomenclature: A C-2,4,5,29 TSH DL <= 0.005 mIU/L QnOrde red By: Sly Benson on 04-28-2022 TSH Qn 3.18 m[IU]/L 0.45-5.33 [facility] Creatinine and Glomerular fi ltration rate.predicted panel (S/P/Bld)Ordered By: Alex Trammell on 03-26-2022 Creatinine [Mass/Vol] 0.87 mg/dL 0.44-1.03 [facility] Estimated glomerular filtrat ion rate (GFR) non- AmericanOrdered By: Alex Trammell on 03-26-2022 GFR/1.73 sq M.predicted among non-blacks MDRD (S/P/Bld) [Vol rate/Area] > 60 mL/Min [facility] No Panel InformationOrdered By: Alex Trammell on 03-26-2022 Estimated GFR () > 60 mL/Min [facility] Comment on above: GFR estimated refere nce range: According to KDOQI guidelines, <60 ml/min/1.73m2 is sufficient to diagnose a patient with chronic kidney disease. Pharmacy Creatinine Clearance (Chem N/A [facility] Serum or plasma urea nitroge n measurement (mass/volume)Ordered By: Alex Trammell on 03-26-2022 Urea nitrogen [Mass/Vol] 18 mg/dL 04-04 [facility] Creatinine and Glomerular fi ltration rate.predicted panel (S/P/Bld)Ordered By: Alex Trammell on 10-10-2021 Creatinine [Mass/Vol] 0.91 mg/dL 0.44-1.03 [facility] Estimated glomerular filtrat ion rate (GFR) non- AmericanOrdered By: Alex Trammell on 10-10-2021 GFR/1.73 sq M.predicted among non-blacks MDRD (S/P/Bld) [Vol rate/Area] 60 mL/Min [facility] No Panel InformationOrdered By: Alex Trmamell on 10-10-2021 Estimated GFR () > 60 mL/Min [facility] Comment on above: GFR estimated refere nce range: According to KDOQI guidelines, <60 ml/min/1.73m2 is sufficient to diagnose a patient with chronic kidney disease. Pharmacy Creatinine Clearance (Chem N/A [facility] Serum or plasma urea nitroge n measurement (mass/volume)Ordered By: Alex Trammell on 10-10-2021 Urea nitrogen [Mass/Vol] 19 mg/dL 04-04 [facility] Dermatopathologyon 2 Dermatopathology Name THERESA LUU Pathologist: SURAJ MELGAR MD Date of Procedure: 09/17/2021 Date Received: 09/18/2021 Date Reported 09/20/2021 Submitting Physician: ALEX TRAMMELL MD Location: [facility] Other External # FINAL DIAGNOSIS A. SKIN, [...] M.D. Electronically Signed Out By SURAJ MELGAR MD/[facility] By the signature on this report, [...] Malignant melanoma of left lower leg - (J07.78) Specimens Submitted As: A: SKIN, SURGICAL SCAR B: SKIN, ANTERIOR LOWER LEG LESION Gross Description: A. Received in formalin is a coyne-brown, cylindrical piece of skin measuring 2 x 2 x 2 mm. Inked and embedded in toto. B. Received in formalin is a coyne-brown, cylindrical piece of skin measuring 2 x 2 x 2 mm. Inked and embedded in toto. mlz/09/18/2021 [facility] Dermatopathology Laboratory [place] [id number] [place] [address] Comment on above: Performed By: #### D #### Dermatopathology No Panel Informationon 09-17 [facility] Work Phone: Office Visit (Oncology [...] not connect with the medical oncologist at [facility] who was planning to consider her [...] a prior mole. 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 As [...] Normal [facility] COMPREHENSIVE METABOLIC PANE [facility] 05-04-2021 Albumin [Mass/Vol] 4.1 g/dL Normal 3.6-5.1 [facility] Comment on above: Performed By: #### 7 509, 32539 #### [facility] [address], [address] [place] [address] Rodeo Clown: Chadwick Suárez MD Albumin/Globulin [Mass ratio] 1.4 {ratio} Normal 1.0-2.5 [facility] Comment on above: Performed By: #### 7 600, 32940 #### [facility] of [address], [address] [place] [address] Rodeo Clown: Chadwick Suárez MD ALP [Catalytic activity/Vol] 121 U/L Normal 37-153 [facility] Comment on above: Performed By: #### 7 600, 42642 #### [facility] of [address], [address] [place] [address] Rodeo Clown: Chadwick Suárez MD ALT [Catalytic activity/Vol] 18 U/L Normal 6-29 [facility] Comment on above: Performed By: #### 7 600, 27142 #### [facility] of [place] [address] Rodeo Clown: Chadwick Suárez MD AST [Catalytic activity/Vol] 19 U/L Normal 10-35 [facility] Comment on above: Performed By: #### 7 600, 70208 #### [facility] of [place] [address] Rodeo Clown: Chadwick Suárez MD Bilirubin [Mass/Vol] 0.5 mg/dL Normal 0.2-1.2 [facility] Comment on above: Performed By: #### 7 600, 27732 #### [facility] of [place] [address] Rodeo Clown: Chadwick Suárez MD BUN/CREATININE RATIO NOT APPLICABLE Normal 6-22 [facility] Comment on above: Performed By: #### 7 600, 25246 #### [facility] of [place] [address] Rodeo Clown: Chadwick Suárez MD Calcium [Mass/Vol] 9.4 mg/dL Normal 8.6-10.4 [facility] Comment on above: Performed By: #### 7 600, 20614 #### [facility] of [address], [address] [place] [address] Rodeo Clown: Chadwick Suárez MD Chloride [Moles/Vol] 106 mmol/L Normal 98-110 [facility] Comment on above: Performed By: #### 7 600, 16307 #### [facility] [address], [address] [place] [address] Rodeo Clown: Chadwick Suárez MD CO2 [Moles/Vol] 31 mmol/L Normal 20-32 [facility] Comment on above: Performed By: #### 7 600, 12979 #### [facility] [place] [address] Rodeo Clown: Chadwick Suárez MD Creatinine [Mass/Vol] 0.78 mg/dL Normal 0.60-0.93 [facility] Comment on above: Result Comment: For patients >49 years of age, the reference limit for Creatinine is approximately 13% higher for people identified as -Kyrgyz. Performed By: #### 7 600, 95976 #### [facility] [place] [address] Rodeo Clown: Chadwick Suárez MD eGFR NON-AFR. JAPANESE 75 mL/min/1.73m2 Normal > OR = 60 [facility] Comment on above: Performed By: #### 7 600, 42865 #### [facility] [place] [address] Rodeo Clown: Chadwick Suárez MD GFR/1.73 sq M.predicted among blacks MDRD (S/P/Bld) [Vol rate/Area] 87 mL/min/{1.73_m2} Normal > OR = 60 [facility] Comment on above: Performed By: #### 7 600, 25374 #### [facility] [place] [address] Rodeo Clown: Chadwick Suárez MD Globulin (S) [Mass/Vol] 2.9 g/dL Normal 1.9-3.7 [facility] Comment on above: Performed By: #### 7 600, 72812 #### [facility] [place] [address] Rodeo Clown: Chadwick Suárez MD Glucose [Mass/Vol] 105 mg/dL High 65-99 [facility] Comment on above: Result Comment: Fasting reference interval For someone without known diabetes, a glucose value between 100 and 125 mg/dL is consistent with prediabetes and should be confirmed with a follow-up test. Performed By: #### 7 600, 21052 #### [facility] [address], [address] [place] [address] Rodeo Clown: Chadwick Suárez MD Potassium [Moles/Vol] 4.9 mmol/L Normal 3.5-5.3 [facility] Comment on above: Performed By: #### 7 600, 74316 #### [facility] [place] [address] Rodeo Clown: Chadwick Suárez MD Protein [Mass/Vol] 7.0 g/dL Normal 6.1-8.1 [facility] Comment on above: Performed By: #### 7 600, 91595 #### [facility] [place] [address] Rodeo Clown: Chadwick Suárez MD Sodium [Moles/Vol] 143 mmol/L Normal 135-146 [facility] Comment on above: Performed By: #### 7 600, 23636 #### [facility] [place] [address] Rodeo Clown: Chadwick Suárez MD Urea nitrogen [Mass/Vol] 18 mg/dL Normal 7-25 [facility] Comment on above: Performed By: #### 7 600, 85251 #### [facility] [place] [address] Rodeo Clown: Chadwick Suárez MD LIPID PANEL, [facility] 10-2 Cholesterol [Mass/Vol] 235 mg/dL High <200 [facility] Comment on above: Order Comment: FASTI NG:YES AN UPDATE OR CORRECTION HAS BEEN MADE TO NAME FASTING: YES Performed By: #### 7 600, 57181 #### [facility] [place] [address] Rodeo Clown: Chadwick Suárez MD Cholesterol in HDL [Mass/Vol] 83 mg/dL Normal > OR = 50 [facility] Comment on above: Order Comment: FASTI NG:YES AN UPDATE OR CORRECTION HAS BEEN MADE TO NAME FASTING: YES Performed By: #### 7 600, 22946 #### [facility] [address], [address] [place] [address] Rodeo Clown: Chadwick Suárez MD Cholesterol in LDL [Mass/Vol] [...] LDL-C. Enrique SS et al. ROCCO. 2013;310(19): 8519-9452 (http://education.[employer].Evolv/faq/CKU362) Performed By: #### 7 600, 02150 #### [facility] [address], [address] [place] [address] Rodeo Clown: Chadwick Suárez MD Cholesterol.total/Chol esterol in HDL [Mass ratio] 2.8 {ratio} Normal <5.0 [facility] Comment on above: Order Comment: FASTI NG:YES AN UPDATE OR CORRECTION HAS BEEN MADE TO NAME FASTING: YES Performed By: #### 7 600, 07084 #### [facility] [address], [address] [place] [address] Rodeo Clown: Chadwick Suárez MD NON HDL CHOLESTEROL 152 [...] therapeutic option. Performed By: #### 7 600, 32951 #### [facility] [address], [address] [place] [address] Rodeo Clown: Chadwick Suárez MD Triglyceride [Mass/Vol] 132 mg/dL Normal <150 [facility] Comment on above: Order Comment: AUNG NG:YES AN UPDATE OR CORRECTION HAS BEEN MADE TO NAME FASTING: YES Performed By: #### 7 600, 03990 #### [facility] [address], [address] [place] [address] Rodeo Clown: Chadwick Suárez MD Office Visit (Oncology Surge [...] was referred to Dr. Francisca Rose at [facility] for medical oncology consultation for her [...] a prior mole. The patient moved from [place] 8 years ago and has not established [...] be referred to Dr. Francisca Rose at [facility] for medical oncology consultation. Her care [...] a prior mole. The patient moved from [place] 8 years ago and has not established [...] Bacteria identified Cx Nom (Unsp spec) Abnormal AS-Gnjfezi-R [facility] Work Phone: MISCELLANEOUS CULT./SM.BACT. on 12-04-2020 MISCELLANEOUS CULT./SM.BACT. PATIENT: THERESA LUU LOCATION: [facility] BILL#: [id number] : 47 AGE: SEX: F ORDERED BY: [...] DOSE DEPENDENT NS=NONSUSCEPTIBLE X=REPORTED IN ERROR Normal [facility] Comment on above: Performed By: #### [facility] #### [facility] [address] [place] [address] Office Visit (Oncology Surge ry)on 12-04-2020 Follow-up [...] be referred to Dr. Francisca Rose at [facility] for medical oncology consultation. [...] a prior mole. The patient moved from [place] 8 years ago and has not established consistent care. She is recently began seeing Dr. Ynoi Muller for her primary physician, and was [...] The s (more content not included)... Normal [address] Office Visit (Oncology Surge ry)on 11-27-2020 Follow-up [...] be referred to Dr. Francisca Rose at [facility] for medical oncology consultation. [...] a prior mole. The patient moved from [place] 8 years ago and has not established [...] Malignant jerson (more content not included)... Normal [address] Dermatopathologyon Dermatopathology [facility] Dermatopathology Laboratory [address] [place] [id number] DERMATOPATHOLOGY REPORT Name:THERESA LUU Shanice Cee. Rec #. [id number] Location: [facility] Date of Procedure: 11/16/2020 Race: Date Received: [...] determined by the Department of Pathology at [facility]. The FDA does not require this test [...] LEFT LOWER LEG MELANOMA: SPECIMEN Procedure: Re-excision Boston node(s) biopsy Specimen Laterality: Left TUMOR Tumor [...] of Lymph Nodes Examined: 3 Number of Boston Nodes Examined: 2 PATHOLOGIC STAGE CLASSIFICATION (pTNM, [...] ADDITIONAL FINDINGS Additional Findings: None ADDITIONAL TESTING SOUNDSCRIBER MECHANIC BLOCKS: Normal Block: D1 - 5, 7, 18, 20 - 23 Tumor Block: D6, 8 - 17 Electronically Signed Out By SURAJ MELGAR MD/[facility] By the signature on this report, the individual or group listed as making the Final Interpretation/Diagnosis certifies that they have reviewed this case. Clinical History: A: Boston lymph n (more content not included)... Normal [facility] Comment on above: Performed By: #### D #### Dermatopathology LYMPH GLANDon 11-16-2020 LYMPH GLAND Patient Name: THERESA LUU STUDY: LYMPH GLAND; 11/16/2020 10:05 am INDICATION: Malignant melanoma of left lower leg. COMPARISON: PET-CT 10/31/2020. ACCESSION NUMBER(S): [id number] ORDERING CLINICIAN: ALEX TRAMMELL TECHNIQUE: DIVISION OF [...] review. Electronically signed by: COCO ARCHIBALD MD [facility] No Panel Informationon 11-16 CE-Dxtpnid-P [facility] Work Phone: Order Reconciliationon 11-16 Order [...] every 6 hours, As Needed pain Normal [facility] Patient Profile - Preop v2on 11-16-2020 Patient Profile - Preop v2 Profile: Initial Info: How to be Addressedpamela(1) Spoken Language PreferredEnglish (1) Source of Informationpatient Are you currently using the Personal Electronic Health Record or Apps4Pro Stated Reason for Admissionmelanoma on my lower left leg Primary Contact Name and Numberdonna-cousin Other Contact Names and Numberssue-friend Patient Belongingsremains with patient; patient educated regarding responsibility for personal items Patient Belongings Remaining with Patientclothing Medications Brought to Hospitalno General Health: Weight in kg90 kilogram(s) Weight in evb480.4 pound(s) Weight Methodactual (measured) Scale Typechair Height in feet5 feet Height in inches2 inch(es) Height in cm157.4 centimeter(s) Height Methodstated BMI (kg/m2)36.327 square meter Patient or Family Member Reaction to Anesthesiano previous reaction Blood Avoidance/Restrictionsnone Previous Transfusion Reactionno Health Mgmt: Symptoms/Conditions Managed at Homecancer Cancer Symptoms/Conditionsmelanom a Barriers to Managing Healthnone Relationship/Environ: Living Arrangementshouse Lives Withalone Resource/Environmental Concernsnone Anticipated Transition [employer] Anticipated at Transitionnone Substance: Current or [...] material; individual instruction Cultural Considerationsnone Developmental Considerationsnone Adventist Considerationsnone Other learner availableno [place] RiskPatient location auto qualifies him/her for HIGH RISK. Are there any cultural, spiritual, episcopal practices/values/needs that are important for us to [...] Profile - Preop v2 14-Nov-2020 09:30 Normal [facility] Preop Checkliston 11-16-2020 Preop Checklist Preop Checklist: Preop Checklist: Arrival [id number] Arrival Time06:04 NPO [id number] 22:00 ID Band Onyes Allergy Bandno known [...] 16-Nov-2020 06:31 by Deepa Zazueta (GABY) Normal [facility] Radiologyon 11-16-2020 NM Lymph node Views Normal [facility] Work Phone: BASIC METABOLIC PANELon Anion gap [Moles/Vol] 10 mmol/L Normal 10 - 20 [facility] Comment on above: Performed By: #### B MP #### [address] [address] Calcium [Mass/Vol] 9.2 mg/dL Normal 8.6 - 10.3 [facility] Comment on above: Performed By: #### B MP #### [address] [address] Chloride [Moles/Vol] 105 mmol/L Normal 98 - 107 [facility] Comment on above: Performed By: #### B MP #### [address] [address] Creatinine [Mass/Vol] 0.81 mg/dL Normal 0.50 - 1.05 [facility] Comment on above: Performed By: #### B MP #### [address] [address] GFR- AM. >60 Normal >60 [facility] Comment on above: Result Comment: CALC ULATIONS OF ESTIMATED GFR ARE PERFORMED USING THE MDRD STUDY EQUATION FOR THE IDMS-TRACEABLE CREATININE METHODS. CLIN CHEM 2007;53:766-72 Performed By: #### B MP #### [address] [place] [address] GFR-NON AM. >60 Normal >60 [facility] Comment on above: Performed By: #### B MP #### [address] [place] [address] Glucose [Mass/Vol] 95 mg/dL Normal 74 - 99 [facility] Comment on above: Performed By: #### B MP #### [address] [address] HCO3 (Bld) [Moles/Vol] 30 mmol/L Normal 21 - 32 [facility] Comment on above: Performed By: #### B MP #### [address] [address] Potassium [Moles/Vol] 4.1 mmol/L Normal 3.5 - 5.3 [facility] Comment on above: Performed By: #### B MP #### [address] [address] Sodium [Moles/Vol] 141 mmol/L Normal 136 - 145 [facility] Comment on above: Performed By: #### B MP #### [address] [address] Urea nitrogen [Mass/Vol] 16 mg/dL Normal 6 - 23 [facility] Comment on above: Performed By: #### B MP #### [address] [place] [address] CORONAVIRUS 2019, SCREEN ASY MPTOMATICon 11-14-2020 SARS-CoV-2 (COVID-19) RNA BENOIT+probe Ql (Unsp spec) Not detected Normal Not Detected [facility] Comment on above: Result Comment: . [...] this test method. Fact sheet for providers: https://www.fda.gov/media/122487/download Fact sheet for patients: https://www.fda.gov/media/324502/download This test has received FDA Emergency Use Authorization [EUA] and has been verified by [facility] ([facility]). This test is only authorized for the duration of time that circumstances exist to justify the authorization of the emergency use of in vitro diagnostic tests for the detection of SARS-CoV-2 virus and/or diagnosis of COVID-19 infection under section 564(b)(1) of the Act, 21 U.S.C. 360bbb-3(b)(1), unless the authorization is terminated or revoked sooner. [facility] is certified under CLIA-88 as qualified to perform high complexity testing. Testing is performed in the [facility] laboratories located at [address] [place] [address]. Performed By: #### C OVSC #### [place] [address] Lab Specimen Source Nasal, Nasopharyngeal Normal [facility] Comment on above: Performed By: #### C OVSC #### [place] [address] Coronavirus 2019 RNA by PCR, Screening Asymptomticon 11-14-2020 Coronavirus 2019 RNA by PCR, Screening Asymptomtic Not detected Normal See Below [facility] Work Phone: Comment on above: SOURCE: [...] this test method. Fact sheet for providers: https://www.fda.gov/media/320629/downloadFact sheet for patients: https://www.fda.gov/media/166103/downloadThis test has received FDA Emergency Use Authorization [EUA] and has been verified by [facility] ([facility]). This test is only authorized for the duration of time that circumstances exist to justify the authorization of the emergency use of in vitro diagnostic tests for the detection of SARS-CoV-2 virus and/or diagnosis of COVID-19 infection under section 564(b)(1) of the Act, 21 U.S.C. 360bbb-3(b)(1), unless the authorization is terminated or revoked sooner. [facility] is certified under CLIA-88 as qualified to perform high complexity testing. Testing is performed in the [facility] laboratories located at [address] [place] [address]. Covid 19 Resultson 1 SARS-CoV-2 (COVID-19) RNA [...] be contacted by the [facility] to see if any of your close [...] or Naproxen (Aleve) can also be used. Zqsm-aok-pentaos cough and cold medicines can be used according to the instructions on the package. Some wwlg-vmo-mgozfvl medicines also contain acetaminophen. Make sure you [...] water are not available, use alcohol-based hand household appliance installer. Avoid touching your eyes, nose, and mouth [...] 24 sivakumar (more content not included)... Normal [facility] - Chemistry and C hemistry - challengeon 11-14-2020 Anion gap [Moles/Vol] 10 mmol/L 10 - 20 MG- SurgeryS [facility] Work Phone: Calcium [Mass/Vol] 9.2 mg/dL 8.6 - 10.3 [facility]: [phone] Chloride [Moles/Vol] 105 mmol/L 98 - 107 [facility] Work Phone: [phone] CO2 [Moles/Vol] 30 mmol/L 21 - 32 MG-Surger y-S [facility] Work Phone: [phone] Creatinine [Mass/Vol] 0.81 mg/dL See Below - [facility] Work Phone: Comment on above: Reference Range: 0.5 0 - 1.05 Glucose [Mass/Vol] 95 mg/dL 74 - 99 [facility] Work Phone: Potassium [Moles/Vol] 4.1 mmol/L 3.5 - 5.3 MG- SurgeryS [facility] Work Phone: [phone] Sodium [Moles/Vol] 141 mmol/L 136 - 145 MG-Pedro nancy-S [facility] Work Phone: [phone] Urea nitrogen [Mass/Vol] 16 mg/dL 6 - 23 TA-Wuaolad-N [facility] Work Phone: [phone] Panel Informationon 11-14 >60 >60 TU-Nlvkwrp-M [facility] Work Phone: [phone] Comment on above: CALCULATIONS OF DENIS MATED GFR ARE PERFORMED USING THE MDRD STUDY EQUATION FOR THE IDMS-TRACEABLE CREATININE METHODS. CLIN CHEM 2007;53:766-72 [email or web address] 1:8080 /musescripts/museweb.dll?R etrieveTestByDateTime?Rachel ossDM=[id number]&Date=11-14&Time=09%3a51%3a40%3a 00&TestType=ECG&Site=12&Ou tputType=PDF&Ext=PDF JT-Zrhdgxa-L [facility] Work Phone: [phone] Normal sinus rhythm MG-Burton rgery-S [facility] Work Phone: [phone] Normal IN-Oprjwsp-K [facility] Work Phone: [phone] VC-Zclbbuw-P [facility] Work Phone: [phone] PL-Schdubj-E [facility] Work Phone: [phone] CA-Iplryvx-E [facility] Work Phone: [phone] UD-Jnppwdo-O [facility] Work Phone: [phone] RJ-Urdyalb-D [facility] Work Phone: [phone] PB-Gvjbjvd-G [facility] Work Phone: [phone] QW-Uznpfqu-B [facility] Work Phone: [phone] FP-Kwfoqwd-H [facility] Work Phone: [phone] MO-Rvpemqr-W [facility] Work Phone: [phone] SA-Jgehwic-S [facility] Work Phone: [phone] FJ-Chlebqk-O [facility] Work Phone: [phone] ME-Ulgfmij-R [facility] Work Phone: [phone] PP-Hpcueej-M [facility] Work Phone: [phone] HE-Mbmqnil-S [facility] Work Phone: [phone] PET[facility] PET/CT MELANOMA INITIAL STAGING Patient Name: [...] leg biopsy-proven melanoma. COMPARISON: None. ACCESSION NUMBER(S): [id number] ORDERING CLINICIAN: ALEX TRAMMELL TECHNIQUE: DIVISION OF [...] CODING: Initial Treatment Strategy (PI) CALIBRATION: Dose Xgagfgihz-ou-Aude Interval (mins): 72 min Mediastinal bloodpool SUV [...] as stated. This study was interpreted at [facility]. Electronically signed by: IVELISSE OVALLE MD Normal [facility] Office Visit (Oncology Surge ry)on 10-23-2020 Follow-up visit Diagnoses/Problems Assessed Malignant melanoma of left lower leg (172.7) (C43.72) Orders Malignant melanoma of left lower leg PET/CT Melanoma Initial; Status:Active; Requested for:[id number]; Reason: Unspecified for PET/CT Melanoma Initial Radiologist [...] a prior mole. The patient moved from [place] 8 years ago and has not established [...] conditions Social history: Lives in [facility] [place] independently. Has 2 dogs. Walks regularly. Denies tobacco, alcohol, and drug use. Has extended family in [facility] [place] [facility] [place] Allergies: No known drug allergies ROS: [...] of (more content not included)... Normal [employer] [facility] Surgical Pathology Depar tmenton 10-16-2020 [facility] Surgical Pathology Department Name THERESA LUU Pathologist: SHER DIAS MD Date of Procedure: 10/16/2020 Date Received: 10/31/2020 Date Reported 11/02/2020 Submitting Physician: SURAJ MELGAR MD Location: [facility] FINAL DIAGNOSIS RESULTS OF ANCILLARY TESTING ORDERED [...] extraction and testing are performed in the [facility] ([facility]) located at [address] [place] [address] (CLIA License #[id number], CAP #[id number]). This laboratory developed test was developed and its analytical performance characteristics have been determined by [facility]. This test has not been cleared or approved by the FDA; however, the FDA has determined that such approval is not necessary. The [facility] is certified under the Clinical Laboratory Improvement [...] as m (more content not included)... Normal [facility] Comment on above: Performed By: #### U [facility] #### [facility] Surgical Pathology Department [address] [address] [facility] [address] Vital Signs Date Time Vital Sign Value Performing Clinician Facility 09-30-2023 16:29-0400 Body height 157.5 cm Virignia Mixon FLIGHT ATTENDANT/INFLIGHT SUPERVISOR-RECONCILIATION MACHINE OPERATOR Work Phone: [employer] 09-30-2023 16:29-0400 Body mass index (BMI) [Ratio] 34.42 kg/m2 Virginia Apurva FLIGHT ATTENDANT/INFLIGHT SUPERVISOR-RECONCILIATION MACHINE OPERATOR Work Phone: [facility] 09-30-2023 16:29-0400 Body temperature 99.19 [degF] Virginia Apurva FLIGHT ATTENDANT/INFLIGHT SUPERVISOR-RECONCILIATION MACHINE OPERATOR Work Phone: [facility] 09-30-2023 16:29-0400 Body weight 85.37 kg 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 FLIGHT ATTENDANT/INFLIGHT SUPERVISOR-RECONCILIATION MACHINE OPERATOR Work Phone: [facility] 09-30-2023 16:29-0400 Diastolic blood pressure 60 mm[Hg] 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 FLIGHT ATTENDANT/INFLIGHT SUPERVISOR-RECONCILIATION MACHINE OPERATOR Work Phone: [facility] 09-30-2023 16:29-0400 Heart rate 94 /min Virginiabrenda Mixon FLIGHT ATTENDANT/INFLIGHT SUPERVISOR-RECONCILIATION MACHINE OPERATOR Work Phone: [facility] 09-30-2023 16:29-0400 SaO2% (BldA) [Mass fraction] 96 % Virginiabrenda Mixon FLIGHT ATTENDANT/INFLIGHT SUPERVISOR-RECONCILIATION MACHINE OPERATOR Work Phone: [facility] 09-30-2023 16:29-0400 Systolic blood pressure 120 mm[Hg] Virginia Apurva FLIGHT ATTENDANT/INFLIGHT SUPERVISOR-RECONCILIATION MACHINE OPERATOR Work Phone: [facility] 09-15-2023 16:00-0500 Body height 157.5 cm Yoni Muller DO Work Phone: [facility] 09-15-2023 16:00-0500 Body mass index (BMI) [Ratio] 34.84 kg/m2 Yoni Furlong DO Work Phone: [facility] 09-15-2023 16:00-0500 Body temperature 98.91 [degF] Yoni Furlong DO Work Phone: [facility] 09-15-2023 16:00-0500 Body weight 86.41 kg Yoni Furlong DO Work Phone: [facility] 09-15-2023 16:00-0500 Diastolic blood pressure 50 mm[Hg] Yoni Furlong DO Work Phone: [facility] 09-15-2023 16:00-0500 Heart rate 80 /min Yoni Furlong DO Work Phone: [facility] 09-15-2023 16:00-0500 SaO2% (BldA) [Mass fraction] 96 % Yoni Furlong DO Work Phone: [facility] 09-15-2023 16:00-0500 Systolic blood pressure 130 mm[Hg] Yoni Furlong DO Work Phone: [facility] 08-07-2023 11:24-0500 Body temperature 98.2 [degF] DO Yoni Furlong Work Phone: [facility] 08-07-2023 11:24-0500 Body weight 89.35 kg DO Yoni Furlong Work Phone: [facility] 08-07-2023 11:24-0500 Diastolic blood pressure 70 mm[Hg] DO Yoni Furlong Work Phone: [facility] 08-07-2023 11:24-0500 Heart rate 88 /min DO Yoni Furlong Work Phone: [facility] 08-07-2023 11:24-0500 Respiratory rate 18 /min DO Yoni Furlong Work Phone: [facility] 08-07-2023 11:24-0500 SaO2% (BldA) [Mass fraction] 98 % DO Yoni Furlong Work Phone: [facility] 08-07-2023 11:24-0500 Systolic blood pressure 151 mm[Hg] DO Yoni Furlong Work Phone: [facility] 07-14-2023 13:32-0500 Body temperature 98.2 [degF] DO Yoni Furlong Work Phone: [facility] 07-14-2023 13:32-0500 Diastolic blood pressure 78 mm[Hg] DO Yoni Furlong Work Phone: [facility] 07-14-2023 13:32-0500 Heart rate 81 /min DO Yoni Furlong Work Phone: [facility] 07-14-2023 13:32-0500 Respiratory rate 18 /min DO Yoni Furlong Work Phone: [facility] 07-14-2023 13:32-0500 SaO2% (BldA) [Mass fraction] 97 % DO Yoni Furlong Work Phone: [facility] 07-14-2023 13:32-0500 Systolic blood pressure 113 mm[Hg] DO Yoni Furlong Work Phone: [facility] 03-24-2023 10:14-0400 Body height 160.02 cm DO Yoni Furlong Work Phone: [facility] 03-06-2023 13:49-0400 Body temperature 97.8 [degF] DO Yoni Furlong Work Phone: [facility] 03-06-2023 13:49-0400 Body weight 89.35 kg DO Yoni Furlong Work Phone: [facility] 03-06-2023 13:49-0400 Diastolic blood pressure 71 mm[Hg] DO Yoni Furlong Work Phone: [facility] 03-06-2023 13:49-0400 Heart rate 87 /min DO [employer] Work Phone: [facility] 03-06-2023 13:49-0400 Respiratory rate 16 /min DO [employer] Work Phone: [facility] 03-06-2023 13:49-0400 SaO2% (BldA) [Mass fraction] 94 % DO [employer] Work Phone: [facility] 03-06-2023 13:49-0400 Systolic blood pressure 139 mm[Hg] DO Yoni Fosburylong Work Phone: [facility] 01-27-2023 10:30-0400 Body temperature 97.5 [degF] Kimber Reidraw Other [employer] [facility] [employer] Other 01-27-2023 10:30-0400 Body weight 87.54 kg Kimber Lacy Other [employer] Other 01-27-2023 10:30-0400 Diastolic blood pressure 80 mm[Hg] Kimber Alvaradow Other [employer] Other 01-27-2023 10:30-0400 SaO2% (BldA) [Mass fraction] 96 % Kimber Reidraw Other [employer] Other 01-27-2023 10:30-0400 Systolic blood pressure 159 mm[Hg] Kimber Regino Other [employer] Other 01-27-2023 10:23-0400 Body temperature 97.5 [degF] DO [employer] Work Phone: [facility] 01-27-2023 10:23-0400 Body weight 88.49 kg DO Yoni Furlong Work Phone: [facility] 01-27-2023 10:23-0400 Diastolic blood pressure 80 mm[Hg] DO Yoni Furlong Work Phone: [facility] 01-27-2023 10:23-0400 Heart rate 90 /min DO Yoni Furlong Work Phone: [facility] 01-27-2023 10:23-0400 Respiratory rate 18 /min DO Yoni Furlong Work Phone: [facility] 01-27-2023 10:23-0400 SaO2% (BldA) [Mass fraction] 96 % DO Yoni Furlong Work Phone: [facility] 01-27-2023 10:23-0400 Systolic blood pressure 159 mm[Hg] DO Yoni Furlong Work Phone: [facility] 12-30-2022 09:56-0400 Body weight 88.45 kg DO Yoni Furlong Work Phone: [facility] 12-30-2022 08:26-0400 Body temperature 97.8 [degF] DO Yoni Furlong Work Phone: [facility] 12-30-2022 08:26-0400 Body weight 88.45 kg DO Yoni Furlong Work Phone: [facility] 12-30-2022 08:26-0400 Diastolic blood pressure 81 mm[Hg] DO Yoni Furlong Work Phone: [facility] 12-30-2022 08:26-0400 Heart rate 86 /min DO Yoni Furlong Work Phone: [facility] 12-30-2022 08:26-0400 Respiratory rate 16 /min DO Yoni Furlong Work Phone: [facility] 12-30-2022 08:26-0400 SaO2% (BldA) [Mass fraction] 98 % DO Yoni Furlong Work Phone: [facility] 12-30-2022 08:26-0400 Systolic blood pressure 132 mm[Hg] DO Yoni Furlong Work Phone: [facility] 09-08-2022 11:09-0500 Body weight 90.2 kg DO Yoni Furlong Work Phone: [facility] 09-08-2022 09:52-0500 Body temperature 97.9 [degF] DO Yoni Furlong Work Phone: [facility] 09-08-2022 09:52-0500 Body weight 90.2 kg DO Yoni Furlong Work Phone: [facility] 09-08-2022 09:52-0500 Diastolic blood pressure 82 mm[Hg] DO Yoni Furlong Work Phone: [facility] 09-08-2022 09:52-0500 Heart rate 78 /min DO Yoni Furlong Work Phone: [facility] 09-08-2022 09:52-0500 Respiratory rate 20 /min DO Yoni Furlong Work Phone: [facility] 09-08-2022 09:52-0500 SaO2% (BldA) [Mass fraction] 97 % DO Yoni Furlong Work Phone: [facility] 09-08-2022 09:52-0500 Systolic blood pressure 137 mm[Hg] DO Yoni Furlong Work Phone: [facility] 08-11-2022 11:25-0500 Body weight 89.4 kg DO Yoni Furlong Work Phone: [facility] 08-11-2022 10:28-0500 Body height 160.02 cm DO Yoni Furlong Work Phone: [facility] 08-11-2022 10:28-0500 Body temperature 97.4 [degF] DO Yoni Furlong Work Phone: [facility] 08-11-2022 10:28-0500 Diastolic blood pressure 68 mm[Hg] DO Yoni Furlong Work Phone: [facility] 08-11-2022 10:28-0500 Heart rate 82 /min DO Yoni Furlong Work Phone: [facility] 08-11-2022 10:28-0500 Respiratory rate 20 /min DO Yoni Furlong Work Phone: [facility] 08-11-2022 10:28-0500 SaO2% (BldA) [Mass fraction] 98 % DO Yoni Furlong Work Phone: [facility] 08-11-2022 10:28-0500 Systolic blood pressure 132 mm[Hg] DO Yoni Furlong Work Phone: [facility] 06-23-2022 12:05-0500 Body weight 88.6 kg DO Yoni Furlong Work Phone: [facility] 06-23-2022 10:44-0500 Body temperature 97.9 [degF] DO Yoni Furlong Work Phone: [facility] 06-23-2022 10:44-0500 Body weight 88.6 kg DO Yoni Furlong Work Phone: [facility] 06-23-2022 10:44-0500 Diastolic blood pressure 74 mm[Hg] DO Yoni Furlong Work Phone: [facility] 06-23-2022 10:44-0500 Heart rate 80 /min DO Yoni Furlong Work Phone: [facility] 06-23-2022 10:44-0500 Respiratory rate 18 /min DO Yoni Furlong Work Phone: [facility] 06-23-2022 10:44-0500 SaO2% (BldA) [Mass fraction] 98 % DO Yoni Furlong Work Phone: [facility] 06-23-2022 10:44-0500 Systolic blood pressure 141 mm[Hg] DO Yoni Furlong Work Phone: [facility] 06-02-2022 10:29-0500 Body temperature 97.7 [degF] DO Yoni Furlong Work Phone: [facility] 06-02-2022 10:29-0500 Body weight 89.9 kg DO Yoni Furlong Work Phone: [facility] 06-02-2022 10:29-0500 Diastolic blood pressure 82 mm[Hg] DO Yoni Furlong Work Phone: [facility] 06-02-2022 10:29-0500 Heart rate 92 /min DO Yoni Furlong Work Phone: [facility] 06-02-2022 10:29-0500 Respiratory rate 16 /min DO Yoni Furlong Work Phone: [facility] 06-02-2022 10:29-0500 SaO2% (BldA) [Mass fraction] 97 % DO Yoni Furlong Work Phone: [facility] 06-02-2022 10:29-0500 Systolic blood pressure 150 mm[Hg] DO Yoni Furlong Work Phone: [facility] 05-02-2022 15:07-0400 Body weight 92.8 kg DO Yoni Furlong Work Phone: [facility] 05-02-2022 15:07-0400 Diastolic blood pressure 83 mm[Hg] DO Yoni Furlong Work Phone: [facility] 05-02-2022 15:07-0400 Heart rate 87 /min DO Yoni Furlong Work Phone: [facility] 05-02-2022 15:07-0400 Respiratory rate 20 /min DO Yoni Furlong Work Phone: [facility] 05-02-2022 15:07-0400 SaO2% (BldA) [Mass fraction] 98 % DO Yoni Furlong Work Phone: [facility] 05-02-2022 15:07-0400 Systolic blood pressure 146 mm[Hg] DO Yoni Furlong Work Phone: [facility] 04-28-2022 09:07-0400 Diastolic blood pressure 76 mm[Hg] DO Yoni Furlong Work Phone: [facility] 04-28-2022 09:07-0400 Heart rate 93 /min DO Yoni Furlong Work Phone: [facility] 04-28-2022 09:07-0400 Respiratory rate 18 /min DO Yoni Furlong Work Phone: [facility] 04-28-2022 09:07-0400 SaO2% (BldA) [Mass fraction] 95 % DO Yoni Furlong Work Phone: [facility] 04-28-2022 09:07-0400 Systolic blood pressure 148 mm[Hg] DO Yoni Furlong Work Phone: [facility] 04-28-2022 08:11-0400 Body height 157.48 cm DO Yoni Furlong Work Phone: [facility] 04-28-2022 08:11-0400 Body temperature 98.6 [degF] DO Yoni Furlong Work Phone: [facility] 04-28-2022 08:11-0400 Body weight 91.17 kg DO Yoni Furlong Work Phone: [facility] 04-21-2022 08:54-0400 Body height 160.02 cm DO Yoni Furlong Work Phone: [facility] 04-21-2022 08:54-0400 Body temperature 98 [degF] DO Yoni Furlong Work Phone: [facility] 04-21-2022 08:54-0400 Body weight 91.48 kg DO Yoni Furlong Work Phone: [facility] 04-21-2022 08:54-0400 Diastolic blood pressure 87 mm[Hg] DO Yoni Furlong Work Phone: [facility] 04-21-2022 08:54-0400 Heart rate 85 /min DO Yoni Furlong Work Phone: [facility] 04-21-2022 08:54-0400 Respiratory rate 20 /min DO Yoni Furlong Work Phone: [facility] 04-21-2022 08:54-0400 SaO2% (BldA) [Mass fraction] 97 % DO Yoni Furlong Work Phone: [facility] 04-21-2022 08:54-0400 Systolic blood pressure 161 mm[Hg] DO Yoni Furlong Work Phone: [facility] 10-25-2021 09:45-0400 Body temperature 98 [degF] MD Alex Trammell Work Phone: [facility] 10-25-2021 09:45-0400 Body weight 90.94 kg MD Alex Trammell Work Phone: [facility] 10-25-2021 09:45-0400 Diastolic blood pressure 70 mm[Hg] MD Alex Trammell Work Phone: [facility] 10-25-2021 09:45-0400 Heart rate 90 /min MD Alex Trammell Work Phone: [facility] 10-25-2021 09:45-0400 Respiratory rate 20 /min MD Alex Trammell Work Phone: [facility] 10-25-2021 09:45-0400 SaO2% (BldA) [Mass fraction] 98 % MD Alex Trammell Work Phone: [facility] 10-25-2021 09:45-0400 Systolic blood pressure 141 mm[Hg] MD Alex Trammell Work Phone: [facility] 10-07-2021 08:13-0400 Body temperature 98.1 [degF] DO Sly Adamowicz II Work Phone: [facility] 10-07-2021 08:13-0400 Body weight 92.8 kg DO Sly Adamowicz II Work Phone: [facility] 10-07-2021 08:13-0400 Diastolic blood pressure 78 mm[Hg] DO Sly Adamowicz II Work Phone: [facility] 10-07-2021 08:13-0400 Heart rate 96 /min DO Sly Adamowicz II Work Phone: [facility] 10-07-2021 08:13-0400 Respiratory rate 20 /min DO Sly Adamowicz II Work Phone: [facility] 10-07-2021 08:13-0400 SaO2% (BldA) [Mass fraction] 97 % DO Sly Adamowicz II Work Phone: [facility] 10-07-2021 08:13-0400 Systolic blood pressure 144 mm[Hg] DO Sly Adamowicz II Work Phone: [facility] 10-07-2021 08:05-0400 Body height 160.02 cm DO Sly Adamowicz II Work Phone: [facility] 09-17-2021 15:09-0500 Body temperature 98.6 [degF] Yoni Prolong Work Phone: GG-Yfcvyqm-Lwlrdbn [facility] [address] Work Phone: 09-17-2021 15:09-0500 Body weight 89.54 kg Yoni Prolong Work Phone: KC-Xntmrmi-Pwrymfv [facility] [address] Work Phone: 09-17-2021 15:09-0500 Diastolic blood pressure 81 mm[Hg] Yoni Prolong Work Phone: GR-Jhckjpq-Xwoycyh [facility] 4601 Work Phone: 09-17-2021 15:09-0500 Heart rate 101 /min Yoni Prolong Work Phone: XJ-Zmilehi-Jmflhec [facility] 4605 Work Phone: 09-17-2021 15:09-0500 Respiratory rate 18 /min Yoni Prolong Work Phone: WI-Nkrhqft-Rkrixxo [facility] [address] Work Phone: 09-17-2021 15:09-0500 Systolic blood pressure 158 mm[Hg] Yoni Prolong Work Phone: UF-Cukwsjk-Wrnswkb [facility] [address] Work Phone: 01-22-2021 14:42-0400 Body weight 88.03 kg Yoni Prolong Work Phone: TP-Wpwtlrg-Bgksviog 150 Work Phone: 01-22-2021 14:42-0400 Diastolic blood pressure 84 mm[Hg] Yoni Prolong Work Phone: PD-Ldfrxsh-Ayavhqag 150 Work Phone: 01-22-2021 14:42-0400 Heart rate 102 /min Yoni Prolong Work Phone: PO-Kkoqvpt-Jmdpgwzd 150 Work Phone: 01-22-2021 14:42-0400 SaO2% (BldA) [Mass fraction] 95 % Yoni G Furlong Work Phone: QP-Hvtpttt-Dtzdgrxu 150 Work Phone: 01-22-2021 14:42-0400 Systolic blood pressure 149 mm[Hg] Yoni G Furlong Work Phone: MR-Dnfnszr-Nfjmggjw 150 Work Phone: 12-25-2020 15:23-0400 Body weight 89.36 kg Yoni G Furlong Work Phone: [facility] Work Phone: 12-25-2020 15:23-0400 Diastolic blood pressure 85 mm[Hg] Yoni G Furlong Work Phone: [facility] Work Phone: 12-25-2020 15:23-0400 Heart rate 105 /min Yoni G Furlong Work Phone: [facility] Work Phone: 12-25-2020 15:23-0400 SaO2% (BldA) [Mass fraction] 95 % Yoni G Furlong Work Phone: [facility] Work Phone: 12-25-2020 15:23-0400 Systolic blood pressure 163 mm[Hg] Yoni G Furlong Work Phone: [facility] Work Phone: 12-04-2020 15:07-0400 Diastolic blood pressure 84 mm[Hg] Yoni G Furlong Work Phone: [facility] Work Phone: 12-04-2020 15:07-0400 Heart rate 111 /min Yoni G Furlong Work Phone: [facility] Work Phone: 12-04-2020 15:07-0400 SaO2% (BldA) [Mass fraction] 98 % Yoni Muller Work Phone: [facility] Work Phone: 12-04-2020 15:07-0400 Systolic blood pressure 154 mm[Hg] Yoni Muller Work Phone: [facility] Work Phone: 11-27-2020 15:10-0400 Body weight 90.72 kg Yoni Muller Work Phone: [facility] Work Phone: 11-27-2020 15:10-0400 Diastolic blood pressure 79 mm[Hg] Yoni Muller Work Phone: [facility] Work Phone: 11-27-2020 15:10-0400 Heart rate 98 /min Yoni Muller Work Phone: [facility] Work Phone: 11-27-2020 15:10-0400 SaO2% (BldA) [Mass fraction] 96 % Yoni Muller Work Phone: [facility] Work Phone: 11-27-2020 15:10-0400 Systolic blood pressure 138 mm[Hg] Yoni Muller Work Phone: [facility] Work Phone: [phone] 23:00-0500 >na< Quentin Fitzpatrick Dept. of [facility] matology Encounters Encounter Date Encounter Type Care Provider Facility Start: 11-27-2023 ambulatory Sly rich II Facility:[facility] Start: 09-30-2023 End: 09-30-2023 Office outpatient visit 15 minutes 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 FLIGHT ATTENDANT/INFLIGHT SUPERVISOR-RECONCILIATION MACHINE OPERATOR Work Phone: [facility] [...] hypertension with chronic kidney disease, stage III ([facility]) (Primary Dx); Hyperlipidemia, unspecified hyperlipidemia type; Malignant melanoma of left lower leg ([facility]); Class 2 severe obesity due to excess calories with serious comorbidity and body mass index (BMI) of 35.0 to 35.9 in adult Start: 09-08-2023 Refill Yoni Holloway ng DO Work Phone: [facility] Comment on above: Essential (primary) hypertension Start: 08-07-2023 Registered Recurring DO Yoni Furlong Work Phone: [facility] Work Phone: Start: 08-07-2023 End: 08-07-2023 Patient encounter procedure DO Yoni Furlong Work Phone: [facility] Work Phone: Start: 08-07-2023 End: 08-07-2023 ambulatory DO Yoni Furlong Work Phone: [facility] Work Phone: Start: 03-06-2023 End: 03-06-2023 ambulatory DO Yoni Furlong Work Phone: [facility] Work Phone: Start: 03-06-2023 End: 03-06-2023 Registered Recurring DO Yoni Furlong Work Phone: [facility] Work Phone: Start: 01-27-2023 Office outpatient vi sit 25 minutes Kimberhanny Lacy [facility] Start: 01-27-2023 End: 01-27-2023 ambulatory DO Yoni Furlong Work Phone: [facility] Work Phone: Start: 01-27-2023 End: 01-27-2023 Registered Recurring DO Yoni Furlong Work Phone: [facility] Work Phone: Start: 12-30-2022 End: 12-30-2022 ambulatory DO Yoni Furlong Work Phone: [facility] Work Phone: Start: 12-30-2022 End: 12-30-2022 Registered Recurring DO Yoni Furlong Work Phone: [facility] Work Phone: Start: 12-30-2022 End: 12-30-2022 ambulatory DO Yoni Furlong Work Phone: [facility] Work Phone: Start: 12-30-2022 End: 12-30-2022 Registered Recurring DO Yoni Furlong Work Phone: [facility] Work Phone: Start: 10-03-2022 End: 10-04-2022 ambulatory SLY BENSON Facility: Start: 09-08-2022 End: 09-08-2022 ambulatory DO Yoni Furlong Work Phone: [facility] Work Phone: Start: 09-08-2022 End: 09-08-2022 Registered Recurring DO Yoni Furlong Work Phone: [facility] Work Phone: Start: 09-05-2022 End: 09-06-[address] YONI MULLER Facility:H1 Start: 08-11-2022 End: 08-11-2022 ambulatory DO Yoni Furlong Work Phone: [facility] Work Phone: Start: 08-11-2022 End: 08-11-2022 Registered Recurring DO Yoni Furlong Work Phone: [facility] Work Phone: Start: 07-21-2022 End: 07-22-2022 ambulatory SLY Rachele BENSON Facility:H1 Start: 06-23-2022 End: 06-23-2022 ambulatory DO Yoni Furlong Work Phone: [facility] Work Phone: Start: 06-23-2022 End: 06-23-2022 Registered Recurring DO Yoni Furlong Work Phone: [facility] Start: 06-23-2022 End: 06-23-2022 ambulatory DO Yoni Furlong Work Phone: [facility] Work Phone: Start: 06-23-2022 End: 06-23-2022 Registered Recurring DO Yoni Furlong Work Phone: [facility] Start: 06-20-2022 End: 06-21-[address] YONI MULLER Facility:[facility]1 Start: 06-02-2022 End: 06-02-2022 ambulatory DO Yoni Furlong Work Phone: [facility] Work Phone: Start: 06-02-2022 End: 06-02-2022 Registered Recurring DO Y[facility]long [facility] [place] Start: 05-30-2022 End: 05-31-2022 ambulatory SLY BENSON Facility:[facility]1 Start: 05-13-2022 End: 05-14-2022 ambulatory SLY BENSON Facility:[facility]1 Start: 05-10-2022 End: 05-11-2022 ambulatory SLY BENSON Facility:[facility]1 Start: 05-02-2022 End: 05-02-2022 ambulatory DO Yoni Furlong Work Phone: [facility] Work Phone: Start: 05-02-2022 End: 05-02-2022 Registered Recurring DO Yoni Furlong [facility] [place] Start: 04-28-2022 End: 04-28-2022 Admission to same day surgery center DO Oyni Furlong Work Phone: [facility] Start: 04-28-2022 End: 04-28-2022 ambulatory DO Yoni Furlong Work Phone: [facility] Work Phone: Start: 04-21-2022 End: 04-21-2022 ambulatory DO Yoni Furlong Work Phone: [facility] Work Phone: Start: 04-21-2022 End: 04-21-2022 Registered Recurring DO Yoni Furlong [facility] Start: 03-26-2022 End: 03-26-2022 Patient encounter procedure DO Yoni Furlong Work Phone: [facility] Start: 10-25-2021 End: 10-25-2021 Registered Recurring MD Alex Trammell [facility]: [facility] [place] Start: 10-10-2021 End: 10-10-2021 Patient encounter procedure DO Sly Xiaokinsey II Work Phone: [facility] Start: 10-07-2021 End: 10-07-2021 Registered Recurring DO Sly Benson II Work Phone: [facility] Start: 10-07-2021 Registered Recurring DO Clinton Benson II Work Phone: [facility] Start: 09-24-2021 AUDIT Yoni Holloway ng Work Phone: GB-Pnhdkmh[facility] Work Phone: Start: 09-23-2021 Chart Update Yoni hyatt Work Phone: [facility] Work Phone: Start: 09-17-2021 Office outpatient ne w 30 minutes Yoni Muller Work Phone: MX-Csqrjlh-PfkqhsiChi [facility] [address] Work Phone: Start: 09-17-2021 Office outpatient vi sit 15 minutes Yoni Muller Work Phone: JS-Pyajkqz-Ldudh Main Work Phone: Start: 01-22-2021 Office outpatient vi sit 15 minutes Yoni Muller Work Phone: RP-Adyekvw-Versvcfb 150 Work Phone: Start: 01-12-2021 AUDIT Yoni Holloway ng Work Phone: [facility] Work Phone: Start: 12-25-2020 Office outpatient vi sit 25 minutes Yoni Hollowayng Work Phone: KV-Fbpvujp-Utjkqawc 150 Work Phone: Start: 12-25-2020 Patient encounter procedure Yoni Muller Work Phone: [facility] Work Phone: Start: 12-17-2020 AUDIT Yoni hyatt Work Phone: [facility] Work Phone: Start: 12-04-2020 FUV, Provider: Alex Trammell, Status: Pen, Time: 3:00 PM Yoni Muller Work Phone: [facility] Work Phone: Start: 12-04-2020 Patient encounter procedure Yoni Muller Work Phone: [facility] Work Phone: Start: 11-27-2020 Postop follow up vis it related to original px Yoni Muller Work Phone: [facility] Work Phone: Start: 11-27-2020 [facility] Start: 11-13-2020 [facility] Start: 10-23-2020 Sabianistlamont [facility] Procedures Date Procedure Procedure Detail Performing Clinician Start: 09-30-2023 Adult depression screening assessment 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 APRN-RECONCILIATION MACHINE OPERATOR Work Phone: Start: 09-15-2023 Adult depression screening assessment Yoni Hollowayng DO Work Phone: Start: 08-06-2023 Computed tomography of abdomen and pelvis with contrast DO Yoni Furlong Work Phone: Start: 08-06-2023 CT of thorax with contrast DO Yoni Furlong Work Phone: Start: 03-05-2023 Computed tomography of abdomen and pelvis with contrast DO Yoni Furlong Work Phone: Start: 03-05-2023 CT of thorax with contrast DO Ynoi Furlong Work Phone: Start: 02-06-2023 Adult depression screening assessment Yoni Furlong DO Work Phone: Start: 10-31-2022 Computed tomography of abdomen and pelvis with contrast DO Yoni Furlong Work Phone: Start: 10-31-2022 CT of thorax with contrast DO Yoni Fosburylong Work Phone: Start: 08-08-2022 Computed tomography of abdomen and pelvis with contrast DO Yoni Furlong Work Phone: Start: 08-08-2022 CT of thorax with contrast DO Yoni Fosburylong Work Phone: Start: 04-28-2022 Aspiration DO Yoni Furlong Work Phone: Start: 03-26-2022 Computed tomography of abdomen and pelvis with contrast DO Yoni Fosburylong Work Phone: Start: 03-26-2022 CT of thorax with contrast DO Yoni Fosburylong Work Phone: Start: 10-10-2021 Computed tomography of abdomen and pelvis with contrast DO Sly AdamAlaMarkaicz II Work Phone: Start: 10-10-2021 CT of thorax with contrast DO Sly Adamowicz II Work Phone: Start: 11-27-2020 Quentin Fitzpatrick Start: 11-13-2020 Quentin Fitzpatrick Start: 10-23-2020 Quentin Fitzpatrick Counseling Kimber ortiz Other Plan of Treatment Date Care Activity Detail Author Start: 09-29-2024 Adult BMI Screening Adult BMI Screen ing [facility] Start: 09-29-2024 Depression Screening Depression Scre [facility] Start: 09-29-2024 Fall Risk Screening Fall Risk Screen ing [facility] Start: 09-29-2024 Tobacco Screening Tobacco Screening [facility] Start: 09-14-2024 Adult BMI Screening Adult BMI Screen ing [facility] Start: 09-14-2024 Depression Screening Depression Scre [facility] Start: 09-14-2024 Fall Risk Screening Fall Risk Screen ing [facility] Start: 09-14-2024 Tobacco Screening Tobacco Screening [facility] Start: 03-17-2024 End: 03-17-2024 Patient encounter procedure 03/17/2024 4:15 PM EDT [facility] [address] [place] [address] Yoni Muller, [address], [facility] [place] [place] [address] [facility] Start: 02-07-2024 [facility] zoster vaccine Zoster (Shingles) Vaccine (1 of 2) [facility] Comment on above: Postponed from 10/02 (Patient Refused) Start: 02-07-2024 Adult BMI Screening Adult BMI Screen ing [facility] Start: 02-07-2024 Depression Screening Depression Scre ening [facility] Start: 02-07-2024 DTaP,Tdap and Td Vac cines (1 - Tdap) DTaP,Tdap and Td Vaccines (1 - Tdap) [facility] Comment on above: Postponed from 10/02 (Patient Refused) Start: 02-07-2024 Tobacco Screening Tobacco Screening [facility] Start: 01-11-2024 Medicare Annual Well ness Visit Medicare Annual Wellness Visit [facility] Comment on above: Postponed from 10/02 (Patient Refused) Start: 10-11-2023 Influenza vaccination Influenza Vacc ine [facility] Comment on above: Postponed from 03/13 (Patient Refused) Start: 09-15-2023 End: 09-15-2023 Patient encounter procedure 09/15/2023 4:00 PM EST [facility] [address] [place] [address] Yoni Muller DO [address], [facility] [place] [address] [facility] Start: 08-07-2023 [facility] Start: 08-06-2023 End: 08-07-2023 [facility] Start: 08-06-2023 Adrenocorticotropic hormone measurement [facility] Start: 07-14-2023 [facility] Start: 07-14-2023 [facility] Start: 06-17-2023 Fall Risk Screening Fall Risk Screen ing [facility] Start: 06-16-2023 [facility] Start: 05-19-2023 [facility] Start: 04-21-2023 [facility] Start: 03-24-2023 [facility] Start: 03-13-2023 COVID-19 Vaccine ( season) COVID-19 Vaccine () [facility] Start: 03-13-2023 Influenza vaccination Influenza Vacc ine [facility] Start: 02-24-2023 [facility] Start: 01-27-2023 [facility] Start: 01-27-2023 [facility] Start: 12-30-2022 Adrenocorticotropic hormone measurement [facility] Start: 12-30-2022 [facility] Start: 12-30-2022 [facility] Start: 12-25-2022 [facility] Start: 12-01-2022 [facility] Start: 11-03-2022 [facility] Start: 10-06-2022 [facility] Start: 09-08-2022 [facility] Start: 09-08-2022 [facility] Start: 08-11-2022 [facility] Start: 07-23-2022 [facility] Start: 06-23-2022 [facility] Start: 06-23-2022 Adrenocorticotropic hormone measurement [facility] Start: 06-23-2022 [facility] Start: 06-02-2022 [facility] Start: 05-12-2022 End: 05-12-2022 [facility] Start: 05-12-2022 [facility] Start: 04-28-2022 [facility] Start: 04-28-2022 [facility] Start: 04-28-2022 Aspiration [facility] Start: 02-19-2021 FUV, Provider: Alex Trammell, Status: Pen, Time: 3:00 PM FUV, Provider: Alex Trammell, Status: Pen, Time: 3:00 PM DT-Fcbwnui-Xrvmhizq 150 Work Phone: Start: 01-22-2021 FUV, Provider: Alex Trammell, Status: Pen, Time: 3:00 PM FUV, Provider: Alex Trammell, Status: Pen, Time: 3:00 PM HA-Ghkpxme-Kfkuzknz 150 Work Phone: Start: 12-25-2020 FUV, Provider: Alex Trammell, Status: Pen, Time: 3:00 PM FUV, Provider: Alex Trammell, Status: Pen, Time: 3:00 PM [facility] Work Phone: Start: 1963 Adult BMI Follow Up Plan Adult [facility] Adrenocorticotropic hormone measurement [facility] Adrenocorticotropic hormone measurement [facility] Work Phone: Adrenocorticotropic hormone measurement [facility] Adrenocorticotropic hormone measurement [facility] Adrenocorticotropic hormone measurement [facility] Adrenocorticotropic hormone measurement [facility] Adrenocorticotropic hormone measurement [facility] Adrenocorticotropic hormone measurement [facility] Adrenocorticotropic hormone measurement [facility] Adrenocorticotropic hormone measurement [facility] Basophils [#/volume] in Blood by Automated count [facility] Basophils/100 leukoc ytes in Blood by Automated count [facility] Blood chemistry [facility] Blood chemistry [facility] Comprehensive metabo lic 1999 panel - Serum or Plasma [facility] Comprehensive metabo lic 1999 panel - Serum or Plasma [facility] Comprehensive metabo lic 1999 panel - Serum or Plasma [facility] Comprehensive metabo lic 1999 panel - Serum or Plasma [facility] Comprehensive metabo lic 1999 panel - Serum or Plasma [facility] Comprehensive metabo lic 1999 panel - Serum or Plasma [facility] Comprehensive metabo lic 1999 panel - Serum or Plasma [facility] Comprehensive metabo lic 1999 panel - Serum or Plasma [facility] Comprehensive metabo lic 1999 panel - Serum or Plasma [facility] Comprehensive metabo lic 1999 panel - Serum or Plasma [facility] Computed tomography for radiotherapy planning [facility] Cortisol [Mass/volum e] in Serum or Plasma [facility] Cortisol [Mass/volum e] in Serum or Plasma [facility] Cortisol [Mass/volum e] in Serum or Plasma [facility] Work Phone: Cortisol [Mass/volum e] in Serum or Plasma [facility] Cortisol [Mass/volum e] in Serum or Plasma [facility] CT Abdomen and Pelvi s W contrast IV [facility] CT Abdomen and Pelvi s W contrast IV [facility] CT Abdomen and Pelvi s W contrast IV [facility] CT Abdomen and Pelvi s W contrast IV [facility] CT Chest W contrast IV [facility] CT Chest W contrast IV [facility] CT Chest W contrast IV [facility] CT Chest W contrast IV [facility] Eosinophils/100 leuk ocytes in Blood by Automated count [facility] Erythrocyte distribu tion width [Ratio] by Automated count [facility] Erythrocyte sediment ation rate by Photometric method [facility] Erythrocytes [#/volu me] in Blood [facility] Hematocrit [Volume F raction] of Blood [facility] Hemoglobin [Mass/vol ume] in Blood [facility] Hepatic function panel [facility] Hepatic function panel [facility] Homogenous nuclear A b pattern [Titer] in Serum [facility] Work Phone: Lactate dehydrogenas e [Enzymatic activity/volume] in Unspecified specimen [facility] Lactate dehydrogenas e [Enzymatic activity/volume] in Unspecified specimen [facility] Lactate dehydrogenas e [Enzymatic activity/volume] in Unspecified specimen [facility] Lactate dehydrogenas e [Enzymatic activity/volume] in Unspecified specimen [facility] Lactate dehydrogenas e [Enzymatic activity/volume] in Unspecified specimen [facility] Leukocytes [#/volume ] corrected for nucleated erythrocytes in Blood by Automated coun [facility] Leukocytes [#/volume ] in Blood [facility] Lipase measurement [facility] Lipase measurement [facility] Lipase measurement [facility] Lymphocytes [#/volum e] in Blood by Automated count [facility] Lymphocytes/100 leuk ocytes in Blood by Automated count [facility] MCH [Entitic mass] b y Automated count [facility] MCHC [Mass/volume] b y Automated count [facility] MCV [Entitic volume] by Automated count [facility] Monocytes [#/volume] in Blood by Automated count [facility] Monocytes/100 leukoc ytes in Blood by Automated count [facility] Neutrophils [#/volum e] in Blood by Automated count [facility] Neutrophils/100 leuk ocytes in Blood by Automated count [facility] Nuclear Ab [Titer] in Serum [facility] Work Phone: Nucleated erythrocyt es [Presence] in Blood by Automated count [facility] Patient Education [facility] Work Phone: Platelet mean volume [Entitic volume] in Blood by Automated count [facility] Platelets [#/volume] in Blood [facility] Thyrotropin [Units/v olume] in Serum or Plasma [facility] Thyrotropin [Units/v olume] in Serum or Plasma [facility] Thyrotropin [Units/v olume] in Serum or Plasma [facility] Thyrotropin [Units/v olume] in Serum or Plasma [facility] Thyrotropin [Units/v olume] in Serum or Plasma [facility] Thyrotropin [Units/v olume] in Serum or Plasma [facility] Thyrotropin [Units/v olume] in Serum or Plasma [facility] Thyroxine (T4) free [Mass/volume] in Serum or Plasma [facility] Thyroxine (T4) free [Mass/volume] in Serum or Plasma [facility] Work Phone: Thyroxine (T4) free [Mass/volume] in Serum or Plasma [facility] Thyroxine (T4) free [Mass/volume] in Serum or Plasma [facility] Thyroxine (T4) free [Mass/volume] in Serum or Plasma [facility] Thyroxine (T4) free [Mass/volume] in Serum or Plasma [facility] Ultrasonic guidance for needle biopsy [facility] Immunizations Immunization Date Immunization Notes Care Provider Fa [facility] 1945 pneumococcal conjuga te vaccine, 7 valent Quentin Fitzpatrick Dept. of Dermatology Payers Date Payer Category Payer Self-pay [id number] 2022 Medicare [id number] Private Health Insurance [id number] 1945 Unknown [id number] 1945 Unknown [id number] 1945 Unknown [id number] 1945 Unknown [id number] 1945 Unknown [id number] 1945 Unknown [id number] 1945 Unknown [id number] 1945 Unknown [id number] Unknown Unknown HCAP/HFA/FAP Active [id number] Unknown [id number] Unknown [id number] Social History Date Type Detail Facility Start: 10-23-2020 Dept. [facility] Dermatology Start: 1945 Sex Assigned At Female [facility] Start: 10-07-2021 End: 06-17-2022 Tobacco smoking status NHIS Never smoked tobacco (finding) [facility] Start: 06-17-2022 End: 09-30-2023 Sex Assigned At [facility] Other Start: 06-17-2022 Tobacco use and exposure Smokeless tobacco non-user [facility] Start: 02-06-2023 End: 09-30-2023 Alcohol intake Current drinker of alcohol (finding) [facility] Start: 06-17-2022 End: 09-30-2023 History of Social function [facility] Do you belong to any clubs or organizations such as jewish groups, unions, fraternal or athletic groups, or school groups? Yes [facility] Are you now , , , , never or living with a partner? [facility] How often to you hav e a drink containing alcohol? Monthly or less [facility] How many standard dr inks containing alcohol do you have on a typical day? 1 or 2 [facility] How often do you hav e 6 or more drinks on 1 occasion? Never [facility] How hard is it for y ou to pay for the very basics like food, housing, medical care, and heating Not hard at all [facility] Do you feel stress - tense, restless, nervous, or anxious, or unable to sleep at night because your mind is troubled all the time - these days [OSQ] Only a little [facility] Start: 06-17-2022 Alcohol Comment rarely [facility] Start: 1945 Sex Assigned At Not on file [facility] Has the electric, [employer] s, oil, or water [employer] threatened to shut off services in your home in past 12Mo No [facility] Goals Date Patient Goal Desired Activity /State Clinical Notes 12-04-2012 to 09-30-2023 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, FLIGHT ATTENDANT/INFLIGHT SUPERVISOR-RECONCILIATION MACHINE OPERATOR - 09/30/2023 4:00 PM Madonna Muller, - 09/15/2023 4:00 PM EST Note Date & Type Note Facility 09-30-2023 History of Present illness Narrative [address] [facility] [address] Patient: Theresa Luu Date of : 1945 [...] next 48 hrs so she went to [facility] ER on 09/23/23. ER placed a [...] list. Past Medical History: Diagnosis Date Cancer ([facility]) Hyperlipidemia Hypertension Obesity Past Surgical History: Procedure [...] to see ortho. IRMA MARTINES APRN-CNP 10/04/23 1230 documented in this encounter [facility] 09-15-2023 History of Present illness Narrative Subjective [...] hypertension with chronic kidney disease, stage III ([facility]) - Basic Metabolic Panel; Future - CBC; Future - Magnesium; Future - Parathyroid Hormone, intact; Future - Phosphorus; Future - Vitamin D 25 hydroxy; Future - Uric acid; Future Her blood pressure is essentially at goal. Her stage 3 chronic kidney disease was discussed. She is using Advil [id number]-[id number] and I recommended she use Tylenol instead to help protect her kidneys. She was given a written note with these instructions. Check chronic kidney disease labs. Hyperlipidemia, unspecified hyperlipidemia type - Lipid panel; Future Check lipids. Malignant melanoma of left lower leg ([facility]) Follow up with specialists as directed. Labs [...] and high cholesterol. documented in this encounter [facility] 02-13-2023 Progress note Note Date/Time January 27, 2023 3:58pm [facility] [address] [place] [address] Progress Note Signed Patient: Theresa Luu MR#: [id number] : 1945 Acct:[id number] Age/Sex: 77 / F Adm Date: 3 Loc: Room: Type: [facility] RCR Attending Dr: Sly Benson II DO Copies to: ~ Date of Service: 01/27/2023 Subjective History of Present Illness HPI: Madison is seen during immunotherapy today and we continue our discussion of goals of care/advance care planning. She has reviewed the making choices booklet and is planning to meet with an erisa attorney to complete financial POA and business [...] <Electronically signed by DO Efren Burris> 02/13/23 [id number] [facility] Work Phone: [phone] 386-490207-18-2023 Evaluation note* Encounter Date Diagnosis Assessment Notes [...] of the order given to the patient. [facility] Other 06-20-2023 Progress note Author Senia Montez [facility] December 30, 2022 11:06am Note Date/Time December 30, 2022 8:35 am [facility] [place] [address] Hem/Onc Follow Up Note - OP Signed Patient: Theresa Luu MR#: [id number] : 1945 Acct:[id number] Age/Sex: 77 / F Type: REG RCR [...] leg melanoma removed by Dr. Trammell at [facility] in November 162020 with sentinel node biopsy and 2+ nodes. Dr. Trmamell notes that the margin was clear, she [...] for coordination of care (as documented) and jrqx-gr-wnif counseling of patient and/or family. [facility] - Medical History Medical History: Medical History [...] <Electronically signed by ANTOINETTE Montez> 12/30/22 1106 [facility] Work Phone: 1(414) 250-484604-24-2023 Progress note Author Sly Benson [facility] November 03, 2022 10:27am Note Date/Time November 03, 2022 10: 22am [facility] at [address] [address] Hem/Onc Follow Up Note - OP Signed Patient: Theresa Luu MR#: [id number] : 1945 Acct:[id number] Age/Sex: 77 / F Type: REG RCR Copies to: Yoni Muller,DO Alex Trammell MD~ Date of Service: 11/03/2022 Time of [...] Up Instructions: cont monthly nivolumab. f/u with [facility] in 2 months. cbc, cmp, tsh monthly. [...] leg melanoma removed by Dr. Trammell at [facility] in November 162020 with sentinel node biopsy [...] for coordination of care (as documented) and grsm-fm-gebh counseling of patient and/or family. [facility] - Medical History Medical History: Medical History [...] % (Auto) 59.6, Lymph % (Auto) 26.5, [place] % (Auto) 11.2, Eos % (Auto) 1.8, Baso % (Auto) 0.9, Nucleat RBC Rel Count 0.0, Neut # (Auto) 4.0, Lymph # (Auto) 1.8, [place] # (Auto) 0.8, Eos # (Auto) 0.1, [...] by Sly Benson II, DO> 11/03/22 1027 [facility] Work Phone: 1(389) 803-469603-27-2023 Progress note Author Zenobia Parker [facility] October 06, 2022 11:42am Note Date/Time October 06, 2022 11: 28am [facility] [place] at [address] [address] Hem/Onc Follow Up Note - OP Signed Patient: Theresa Luu MR#: [id number] : 1945 Acct:[id number] Age/Sex: 77 / F Type: REG RCR [...] leg melanoma removed by Dr. Trammell at [facility] in November 162020 with sentinel node biopsy [...] 10 point review of systems is negative. [facility] - Medical History Medical History: Medical History [...] for coordination of care (as documented) and duxb-pz-cdqm counseling of patient and/or family. Dictated By: Zenobia Parker APRN DD/ 26 Signed By: <Electronically signed by ANTOINETTE Parker> 10/06/22 1142 [facility] Work Phone: 1(334) 484-644403-20-2023 Progress note Author Bebeto Pandya [facility] September 29, 2022 1:11pm Note Date/Time September 29, 2022 9:4 5am [facility] [place] [address] Rad Onc Follow Up Note - OP Signed Patient: Theresa Luu MR#: [id number] : 1945 Acct:[id number] Age/Sex: 76 / F Type: REG RCR [...] a left lower leg melanoma removed at [facility] in November 162020 with sentinel node biopsy [...] get her first maintenance dose of the Ackerly on August 11, [address]. [address] [...] signed by Bebeto Pandya MD> 09/29/22 1311 [facility] Work Phone: 1(489) 405-391002-27-2023 Progress note Author Sly Benson [facility] September 08, 2022 10:18am Note Date/Time September 08, 2022 10:08am [facility] [place] [address] Hem/Onc Follow Up Note - OP Signed Patient: Theresa Luu MR#: [id number] : 1945 Acct:[id number] Age/Sex: 76 / F Type: REG RCR [...] leg melanoma removed by Dr. Trammell at [facility] in November 162020 with sentinel node biopsy [...] maybe 3 days. worse after hot showers. [employer] really works for this. 08/11/22 She is [...] for coordination of care (as documented) and akmk-ho-ktfk counseling of patient and/or family. [facility] - Medical History Medical History: Medical History [...] by Sly Benson II, DO> 09/08/22 1018 [facility] Work Phone: 1(710) 281-904001-31-2023 Consult note Author Bebeto Pandya [facility] August 12, 2022 1:39pm Note Date/Time August 12, 2022 8 :51am [facility] [place] [address] Rad Onc Consult Note - OP Signed Patient: Theresa Luu MR#: [id number] : 1945 Acct:[id number] Age/Sex: 76 / F Type: REG RCR Copies to: DO Alex Acuña MDowicz, II, DO~ Assessment & Plan (1) Inguinal adenopathy Plan: CT simulation-plan for palliative radiation to the left inguinal Luis in 5 fractions delivered every other [...] a left lower leg melanoma removed at [facility] in November 162020 with sentinel node biopsy [...] get her first maintenance dose of the Ackerly on August 11, 2022. Her repeat CT [...] ibuprofen. She denies any other pelvic complaints. [facility] - Medical History Medical History: Medical History [...] signed by Bebeto Pandya MD> 08/12/22 1339 [facility] Work Phone: 1(182) 844-804001-30-2023 Progress note Author Sly Benson [facility] August 11, 2022 11:03am Note Date/Time August 11, 2022 1 0:48am [facility] at [place] [id number] Hem/Onc Follow Up Note - OP Signed Patient: Theresa Luu MR#: [id number] : 1945 Acct:[id number] Age/Sex: 76 / F Type: REG RCR [...] referred for melanoma primary patient of Yoni Prolastedmar, pastmedical history includes essential hypertension, basal cell carcinoma on her upper back in September 2020hyperlipidemia, malignant tumor of the breast in September 1996 on the left side she had a mastectomy with no chemotherapy or radiation. Outpatient medications include hydrochlorothiazide and simvastatin. She initially had a left lower leg melanoma removed by Dr. Trammell at [facility] in November 162020 with sentinel node biopsy [...] for coordination of care (as documented) and oukf-ao-irlx counseling of patient and/or family. [facility] - Medical History Medical History: Medical History [...] % (Auto) 58.6, Lymph % (Auto) 29.6, [place] % (Auto) 9.0, Eos % (Auto) 2.1, Baso % (Auto) 0.7, Nucleat RBC Rel Count 0.1, Neut # (Auto) 4.4, Lymph # (Auto) 2.2, [place] # (Auto) 0.7, Eos # (Auto) 0.2, [...] by Sly Benson II, DO> 08/11/22 1103 [facility] Work Phone: 1([phone]) 346-630412-12-2022 Progress note Author Sly Benson [facility] June 23, 2022 11:22am Note Date/Time June 23, 2022 11:18am [facility] [place] [address] Hem/Onc Follow Up Note - OP Signed Patient: Theresa Luu MR#: [id number] : 1945 Acct:[id number] Age/Sex: 76 / F Type: REG RCR [...] leg melanoma removed by Dr. Trammell at [facility] in November 162020 with sentinel node biopsy [...] for coordination of care (as documented) and ebje-bg-hpwr counseling of patient and/or family. [facility] - Medical History Medical History: Medical History [...] 10/04/21 [History Confirmed 06/23/22] Dictated By: Sly Besnon II, DO DD/ 1116 Signed By: <Electronically signed by Sly Benson II, DO> 06/23/22 1122 [facility] Work Phone: 1(241) 624-942512-12-2022 Progress note Author Sly Benson [facility] June 23, 2022 11:22am Note Date/Time June 23, 2022 11:18am [facility] at [place] [id number] Hem/Onc Follow Up Note - OP Signed Patient: Theresa Luu MR#: [id number] : 1945 Acct:[id number] Age/Sex: 76 / F Type: REG RCR [...] leg melanoma removed by Dr. Trammell at [facility] in November 162020 with sentinel node biopsy [...] for coordination of care (as documented) and xvoc-qs-uhfh counseling of patient and/or family. [facility] - Medical History Medical History: Medical History [...] (Last Updated 10/07/21 @ 08:07 by Sheyla Flushing) Other No significant family history - Social [...] by Sly Benson II, DO> 06/23/22 1122 [facility] Work Phone: 1(123) 341-246711-21-2022 Progress note Author Zenobia Parker [facility] June 02, 2022 11:05am Note Date/Time June 02, 2022 11:01am [facility] [place] [address] Hem/Onc Follow Up Note - OP Signed Patient: Theresa Luu MR#: [id number] : 1945 Acct:[id number] Age/Sex: 76 / F Type: REG RCR [...] leg melanoma removed by Dr. Trammell at [facility] in November 162020 with sentinel node biopsy [...] 10 point review of systems is negative. [facility] - Medical History Medical History: Medical History [...] for coordination of care (as documented) and aomr-ch-towl counseling of patient and/or family. Dictated By: Zenobia Parker APRN DD/ 1058 Signed By: <Electronically signed by ANTOINETTE Parker> 06/02/22 9934 [facility] Work Phone: 1(120) 257-151111-21-2022 Progress note Author Zenobia Parker [facility] June 02, 2022 11:05am Note Date/Time June 02, 2022 11:01am [facility] [place] [address] Hem/Onc Follow Up Note - OP Signed Patient: Theresa Luu MR#: [id number] : 1945 Acct:[id number] Age/Sex: 76 / F Type: REG RCR [...] leg melanoma removed by Dr. Trammell at [facility] in November 162020 with sentinel node biopsy [...] 10 point review of systems is negative. [facility] - Medical History Medical History: Medical History [...] for coordination of care (as documented) and pfyd-ly-zsgz counseling of patient and/or family. Dictated By: Zenobia Parker APRN DD/ 1058 Signed By: <Electronically signed by ANTOINETTE Parker> 06/02/22 6825 [facility] Work Phone: 1([phone]) 313-375710-21-2022 Progress note Author Sly Benson [facility] May 02, 2022 4:01pm Note Date/Time May 02, 2022 3 :52pm [facility] at [address] [address] Hem/Onc Follow Up Note - OP Signed Patient: Theresa Luu MR#: [id number] : 1945 Acct:[id number] Age/Sex: 76 / F Type: REG RCR Copies to: DO Alex Acuñael MD~ Date of Service: 05/02/2022 Time of [...] leg melanoma removed by Dr. Trammell at [facility] in November 162020 with sentinel node biopsy [...] for coordination of care (as documented) and vojw-xz-pvmy counseling of patient and/or family. [facility] - Medical History Medical History: Medical History [...] by Sly Benson II, DO> 05/02/22 1601 [facility] Work Phone: [phone]) [phone] Progress note Author Sly Benson [facility] May 02, 2022 4:01pm Note Date/Time May 02, 2022 3 :52pm [facility] at [address] [address] Hem/Onc Follow Up Note - OP Signed Patient: Theresa Luu MR#: [id number] : 1945 Acct:[id number] Age/Sex: 76 / F Type: REG RCR [...] leg melanoma removed by Dr. Trammell at [facility] in November 162020 with sentinel node biopsy [...] for coordination of care (as documented) and gbeu-ow-tzjv counseling of patient and/or family. [facility] - Medical History Medical History: Medical History [...] by Sly Benson II, DO> 05/02/22 1601 [facility] Work Phone: 1(591) 437-619110-15-2022 Progress note Author Sly Benson [facility] April 26, 2022 11:51am Note Date/Time April 21, 2022 9 :31am [facility] at [place] [id number] Hem/Onc Follow Up Note - OP Signed Patient: Theresa Luu MR#: [id number] : 1945 Acct:[id number] Age/Sex: 76 / F Type: REG RCR Copies to: Yoni Muller Alex Trammell MD~ Date of Service: 04/21/2022 [...] drop ipilimumab after 4 doses per trial [place] 2019 Repeat imaging in September 2021 [...] leg melanoma removed by Dr. Trammell at [facility] in November 162020 with sentinel node biopsy [...] for coordination of care (as documented) and tvnj-fb-pbgx counseling of patient and/or family. [facility] - Medical History Medical History: Medical History [...] by Sly Benson II, DO> 04/26/22 1151 [facility] Work Phone: 1(154) 209-960510-15-2022 Progress note Author Sly Benson [facility] April 26, 2022 11:51am Note Date/Time April 21, 2022 9 :31am [facility] at [address] [address] Hem/Onc Follow Up Note - OP Signed Patient: Theresa Luu MR#: [id number] : 1945 Acct:[id number] Age/Sex: 76 / F Type: REG RCR Copies to: Yoni Larson JewelDO edmar Alex Trammell MD~ Date of Service: 04/21/2022 [...] 4 doses per trial Cornelius et neal [facility] 2019 Repeat imaging in September 2021 showed [...] leg melanoma removed by Dr. Trammell at [facility] in November 162020 with sentinel node biopsy [...] for coordination of care (as documented) and wgyu-yw-wrum counseling of patient and/or family. [facility] - Medical History Medical History: Medical History [...] signed by Sly Benson II, DO> 04/26/22 1152 [facility] Work Phone: 1(315) [phone] Progress note Author Sly Benson [facility] November 04, 2021 7:49pm Note Date/Time October 25, 2021 9:5 8am [facility] at [address] [address] Hem/Onc Follow Up Note - OP Signed Patient: Theersa Luu MR#: [id number] : 1945 Acct:[id number] Age/Sex: 76 / F Type: REG RCR Copies to: Yoni Larson DO Alex Muller MD~ Date of Service: 10/25/2021 Time of [...] leg melanoma removed by Dr. Trammell at [facility] in November 162020 with sentinel node biopsy [...] for coordination of care (as documented) and ykgx-sr-nutm counseling of patient and/or family. [facility] - Medical History Medical History: Medical History [...] signed by Sly Benson II, DO> 11/04/211948 [facility] Work Phone: 1(135) 576-860504-25-2022 Progress note Author Sly Benson [facility] November 04, 2021 7:49pm Note Date/Time October 25, 2021 9:5 8am [facility] [place] [address] Hem/Onc Follow Up Note - OP Signed Patient: Theresa Luu MR#: [id number] : 1945 Acct:[id number] Age/Sex: 76 / F Type: REG RCR [...] leg melanoma removed by Dr. Trammell at [facility] in November 162020 with sentinel node biopsy [...] for coordination of care (as documented) and ibin-ga-nnut counseling of patient and/or family. [facility] - Medical History Medical History: Medical History [...] signed by Sly Benson II, DO> 11/04/211948 [facility] Work Phone: [phone]) [phone] Progress note Author Sly Benson [facility] October 07, 2021 8:58am Note Date/Time October 07, 2021 8:2 8am [facility] [place] [address] Hem/Onc Follow Up Note - OP Signed Patient: Theresa Luu MR#: [id number] : 1945 Acct:[id number] Age/Sex: 76 / F Type: REG RCR [...] leg melanoma removed by Dr. Trammell at [facility] in November 162020 with sentinel node biopsy [...] for coordination of care (as documented) and cnai-kq-axbs counseling of patient and/or family. [facility] - Medical History Medical History: Medical History [...] by Sly Benson II, DO> 10/07/21 0858 [facility] Work Phone: 1(613) [phone] Progress note Author Sly Benson [facility] October 07, 2021 8:58am Note Date/Time October 07, 2021 8:2 8am [facility] [place] [address] Hem/Onc Follow Up Note - OP Signed Patient: Theresa Luu MR#: [id number] : 1945 Acct:[id number] Age/Sex: 76 / F Type: REG RCR [...] leg melanoma removed by Dr. Trammell at [facility] in November 162020 with sentinel node biopsy [...] for coordination of care (as documented) and kfdg-nn-bypg counseling of patient and/or family. [facility] - Medical History Medical History: Medical History [...] by Sly Benson II, DO> 10/07/21 08 [facility] Work Phone: [phone] NotePROCEDURE DETAILS Preoperative Diagnosis: Melanoma of lower limb, C43.70 Postoperative Diagnosis: left lower leg me\lanoma Surgeon: Alex Trammell Resident/Fellow/Other Tank Car Reconditioner: Bambi Ray Muhammad Procedure: 1. WIDE LOCAL EXCISION MALIGNANT MELANOMA OF LEFT LOWER LEG WITH 2CM MARGINS 2. LEFT INGUINAL SENTINEL LYMPH NODE BIOPSY 3. INTEGRA GRAFT PLACEMENT (6X7CM WOUND) 4. VAC VIA PLACEMENT Anesthesia: Kent AcresAndrew Estimated Blood Loss: 20ml Findings: Exophytic left [...] Aguilar MD Furlong, Dennis G, MD - [phone] [] Signatures/Attestation: Note Completion: Attending AttestationI was present for the entire procedure Electronic Signatures: Alex Trammell) (Signed 16-Nov-2020 14:13) Authored: Post-Operative Note, Chart Review, Note Completion Last Updated: 16-Nov-2020 14:13 by Alex Trammell)[facility] 11-16-2020 NoteHistory & Physical Reviewed: I have [...] the note. I personally evaluated the patient [id number] Attending Provider Inpatient Certification StatementObservation patient/other outpatient visits Electronic Signatures: Alex Trammell) (Signed 16-Nov-2020 13:12) Authored: Note Completion Co-Signer: History & Physical Reviewed, ERAS, Consent, Note Completion Ct Tinsley (Resident)) (Signed 16-Nov-2020 10:36) Authored: History & Physical Reviewed, ERAS, Consent, Note Completion Last Updated: 16-Nov-2020 13:12 by Alex Trammell)[facility] 10-16-2020 NoteAccession #: [id number] Pathologist: SURAJ MELGAR MD Date of Procedure: 10/16/2020 Date Received: 10/16/2020 Submitting Physician: ALEX TRAMMELL MD Location: [facility] Copy To/Referring/Attending: QUENTIN FITZPATRICK DO FINAL DIAGNOSIS 4 SLIDES, [facility], #[id number] [A] (BX: 09/28/2020) SKIN, LEFT DISTAL PRETIBIAL [...] SUMMARY REPORT A. 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 Slides received on specimen A only. Slide/Block Description 4 SLIDES, [id number] A. Keep Slides: N Slides Returned: N [facility]:Performed By: #### D #### [id number] History general Narrative - Reported* Type Description Date Medical History breast cancer (1996) Medical History HTN Medical History hyperlipidemia Medical History basal cell carcinoma upper back (September 2020) Medical History metastatic malignant melanoma Wi3 Other 04-20-2014 History of Present illness Narrative* [...] in a prior mole. Thepatient moved from [place] 8 years ago and has not established [...] She reports that shehas not seen her machine group leader since prior to the cancer treatment. As [...] the knee to the foot. 1+ edema. RL-Qxoxtmw[facility]Tfv[facility] Main Work Phone: 1(218) 950-727003-14-2014 History of Present illness Narrative* Ms. Luu [...] in a prior mole. Thepatient moved from [place] 8 years ago and has not established [...] She reports that shehas not seen her machine group leader since prior to the cancer treatment. As [...] the knee to the foot. 1+ edema. [facility]ty[facility] Work Phone: 1(853) 922-586607-15-2013 History of Present illness Narrative* Ms. Luu [...] in a prior mole. Thepatient moved from [place] 8 years ago and has not established [...] the knee to the foot. 1+ edema. ZD-Yaygpmp[facility] Work Phone: [phone]) [phone] History of Present illness Narrative* Ms. Luu [...] in a prior mole. Thepatient moved from [place] 8 years ago and has not established [...] the knee to the foot. 2+ edema. KV-Gydhwsi-K[facility]limqs [facility] Work Phone: [phone]) [phone] History of Present illness Narrative* Ms. Luu [...] in a prior mole. Thepatient moved from [place] 8 years ago and has not established [...] the knee to the foot. 2+ edema. [facility] Work Phone: evaluation noteN/ADept. of Dermatology Evaluation note* Diagnosis Onset Date Resolution Status Melanoma acute [facility] Work Phone: Evaluation noteNo assessment information available [facility] Work Phone: Evaluation note* Diagnosis Onset Date Resolution Status Melanoma acute Inguinal adenopathy acute [facility] Work Phone: Evaluation note* Diagnosis Onset Date Resolution Status Inguinal adenopathy acute Melanoma acute [facility] Work Phone: evaluation note* Diagnosis Onset Date Resolution Status Encounter for antineoplastic immunotherapy acute Inguinal adenopathy acute Melanoma acute [facility] Work Phone: evaluation note* Diagnosis Onset Date Resolution Status Melanoma acute Encounter for antineoplastic immunotherapy acute Inguinal adenopathy acute Melanoma acute [facility] Work Phone: evaluation note* Diagnosis Essential (primary) hypertension Unspecified essential hypertension [facility] Diagnosis Benign hypertension with chronic kidney disease, stage III ([facility])- Primary Hyperlipidemia, unspecified hyperlipidemia type Malignant melanoma of left lower leg ([facility]) Class 2 severe obesity due to excess calories with serious comorbidity and body mass index (BMI) of 35.0 to 35.9 in adult documented [facility]* Diagnosis Injury of left wrist, initial encounter- Primary [facility] Orders* Chemotherapy Class Time Frame: 1 Day, Location: Determined By Patient [facility] Work Phone: Hospital Discharge instructionsAmbulatory Orders* Oncology Histology Time Frame: 1 Day, Location: Determined By Patient [facility] Work Phone: InstructionsNot on filedocumented in this encounter [facility]ructions[facility] on filedocumented in this encounter [facility]ructionsNot on filedocumented in this encounter [facility]* Attachments The following attachments cannot be sent through Care Everywhere. * Common wrist injuries (Belarusian) [facility] note Author Sly Benson [facility] May 02, 2022 4:01pm Note Date/Time May 02, 2022 3 :52pm [facility] at [address] [address] Hem/Onc Follow Up Note - OP Signed Patient: Theresa Luu MR#: [id number] : 1945 Acct:[id number] Age/Sex: 76 / F Type: REG RCR Copies to: Yoni ProlastDO edmar Alex Trammell MD~ Date of Service: 05/02/2022 [...] leg melanoma removed by Dr. Trammell at [facility] in November 162020 with sentinel node biopsy [...] for coordination of care (as documented) and ohkm-io-gney counseling of patient and/or family. [facility] - Medical History Medical History: Medical History [...] by Sly Benson II, DO> 05/02/22 1601 [facility] Work Phone: Progress note Author Zenobia Parker [facility] June 02, 2022 11:05am Note Date/Time June 02, 2022 11:01am [facility] at [address] [address] Hem/Onc Follow Up Note - OP Signed Patient: Theresa Luu MR#: [id number] : 1945 Acct:[id number] Age/Sex: 76 / F Type: REG RCR Copies to: Yoni Larson YohanaDO Alex Trammell MD~ Subjective Date/Time of Service: [...] leg melanoma removed by Dr. Trammell at [facility] in November 162020 with sentinel node biopsy [...] 10 point review of systems is negative. [facility] - Medical History Medical History: Medical History [...] for coordination of care (as documented) and qmdj-ok-kiez counseling of patient and/or family. Dictated By: Zenobia Parker APRN DD/ 1058 Signed By: <Electronically signed by ANTOINETTE Parker> 06/02/22 [address] [facility] Work Phone: Progress note Author Sly Benson [facility] June 23, 2022 11:22am Note Date/Time June 23, 2022 11:18am [facility] [place] [address] Hem/Onc Follow Up Note - OP Signed Patient: Theresa Luu MR#: [id number] : 1945 Acct:[id number] Age/Sex: 76 / F Type: REG RCR [...] leg melanoma removed by Dr. Trammell at [facility] in November 162020 with sentinel node biopsy [...] for coordination of care (as documented) and isws-cg-gtvj counseling of patient and/or family. [facility] - Medical History Medical History: Medical History [...] by Sly Benson II, DO> 06/23/22 [address] [facility] Work Phone: Progress note Author Sly Benson [facility] August 11, 2022 11:03am Note Date/Time August 11, 2022 1 0:48am [facility] at [address] [address] Hem/Onc Follow Up Note - OP Signed Patient: Theresa Luu MR#: [id number] : 1945 Acct:[id number] Age/Sex: 76 / F Type: REG RCR Copies to: Yoni DO Alex Brown MD~ Date of Service: 08/11/2022 Time of [...] leg melanoma removed by Dr. Trammell at [facility] in November 162020 with sentinel node biopsy [...] for coordination of care (as documented) and zuqb-dj-gfss counseling of patient and/or family. [facility] - Medical History Medical History: Medical History [...] % (Auto) 58.6, Lymph % (Auto) 29.6, [place] % (Auto) 9.0, Eos % (Auto) 2.1, Baso % (Auto) 0.7, Nucleat RBC Rel Count 0.1, Neut # (Auto) 4.4, Lymph # (Auto) 2.2, [place] # (Auto) 0.7, Eos # (Auto) 0.2, [...] by Sly Benson II, DO> 08/11/22 [address] [facility] Work Phone: Progress note Author Sly Benson [facility] September 08, 2022 10:18am Note Date/Time September 08, 2022 10:08am [facility] [place] [address] Hem/Onc Follow Up Note - OP Signed Patient: Theresa Luu MR#: [id number] : 1945 Acct:[id number] Age/Sex: 76 / F Type: REG RCR [...] referred for melanoma primary patient of Yoni Prolastedmar, pastmedical history includes essential hypertension, basal cell carcinoma on her upper back in September 2020hyperlipidemia, malignant tumor of the breast in September 1996 on the left side she had a mastectomy with no chemotherapy or radiation. Outpatient medications include hydrochlorothiazide and simvastatin. She initially had a left lower leg melanoma removed by Dr. Trammell at [facility] in November 162020 with sentinel node biopsy [...] for coordination of care (as documented) and eawv-lj-eole counseling of patient and/or family. [facility] - Medical History Medical History: Medical History [...] 08/12/22 [Rx Confirmed 09/08/22] Dictated By: Sly Bneson II, DO DD/ 1004 Signed By: <Electronically signed by Sly Benson II, DO> 09/08/22 [facility] [facility] Work Phone: Progress note [facility] December 30, 2022 11:06am Note Date/Time December 30, 2022 8:35 am [facility] [place] [address] Hem/Onc Follow Up Note - OP Signed Patient: Theresa Luu MR#: [id number] : 1945 Acct:[id number] Age/Sex: 77 / F Type: REG RCR [...] leg melanoma removed by Dr. Trammell at [facility] in November 162020 with sentinel node biopsy [...] for coordination of care (as documented) and nmcs-lx-zgsx counseling of patient and/or family. [facility] - Medical History Medical History: Medical History [...] <Electronically signed by ANTOINETTE Montez> 12/30/22 [address] [facility] Work Phone: Progress note Author Sly Benson [facility] Elaine 25th, 2023 2:40pm Note Date/Time March 06, 2023 2: 37pm [facility] [place] [address] Hem/Onc Follow Up Note - OP Signed Patient: Theresa Luu MR#: [id number] : 1945 Acct:[id number] Age/Sex: 77 / F Type: REG RCR Copies to: YoniDO Alex Monroe MD~ Date of Service: 03/06/2023 Time of [...] referred for melanoma primary patient of oYni Prohelena, pastmedical history includes essential hypertension, basal cell carcinoma on her upper back in September 2020hyperlipidemia, malignant tumor of the breast in September 1996 on the left side she had a mastectomy with no chemotherapy or radiation. Outpatient medications include hydrochlorothiazide and simvastatin. She initially had a left lower leg melanoma removed by Dr. Trammell at [facility] in November 162020 with sentinel node biopsy [...] for coordination of care (as documented) and wiab-go-fjjn counseling of patient and/or family. [facility] - Medical History Medical History: Medical History [...] % (Auto) 66.0, Lymph % (Auto) 23.1, [place] % (Auto) 8.4, Eos % (Auto) 1.7, Baso % (Auto) 0.8, Nucleat RBC Rel Count 0.0, Neut # (Auto) 4.1, Lymph # (Auto) 1.4, [place] # (Auto) 0.5, Eos # (Auto) 0.1, [...] by Sly Benson II, DO> 03/06/23 [address] [facility] Work Phone: Progress note Author Sly Benson [facility] August 07, 2023 11:49am Note Date/Time August 07, 2023 1 1:21am [facility] [place] [address] Cancer Center Note Signed Patient: Theresa Luu MR#: [id number] : 1945 Acct:[id number] Age/Sex: 77 / F Type: REG AMB [...] leg melanoma removed by Dr. Trammell at [facility] in November 162020 with sentinel node biopsy [...] up with labs and imaging for review. [facility] Medical History Medical History Malignant tumor of [...] by Sly Benson II, > 08/07/23 [address] [facility] Work Phone: Reason for referral (narrative)* [...] section and content) DATE CREATED AUTHOR 11/07/2020 [facility] DATE CREATED AUTHOR AUTHOR'S ORGANIZ ATION 12/04/2020 [facility] DATE CREATED AUTHOR AUTHOR'S ORGANIZ ATION 12/10/2020 [facility] DATE CREATED AUTHOR AUTHOR'S ORGANIZ ATION 05/12/2021 [facility] DATE CREATED AUTHOR AUTHOR'S ORGANIZ ATION 09/23/2021 [employer] DATE CREATED AUTHOR AUTHOR'S ORGANIZ ATION 09/28/2021 [facility] DATE CREATED AUTHOR AUTHOR'S ORGANIZ ATION 10/06/2022 [facility] DATE CREATED AUTHOR AUTHOR'S ORGANIZ ATION 12/20/2023 [facility] Care Teams (unrecognized sec tion and content) [...] Member Role Status Dates Sly Benson II, Attending Provider Active Start: August 07, 2023 [...] Yoni Muller DO Primary Care Provider Active Sly Benson II, DO Attending Provider Active Funeral Home Attendant Relationship Specialty Start Date End Date Yoni Muller DO [address] [place] [address] PCP - General Family Medicine 04/21/22 [employer] Attendant Relationship Specialty Start Date End Date Yoni Muller DO [address] [place] [address] PCP - General Family Medicine 04/21/22 Funeral Home Attendant Relationship Specialty Start Date End Date YohanaLamontYoni Neo [address] [place] [address] PCP - General Family Medicine 04/21/22 Goals [...] BE BASED ON THE PRIMARY CLINICAL RECORDS. [employer] provides no warranty or guarantee of the accuracy or completeness of information in this document.
[2023-12-23 07:51] LABS: Basophils Percent Auto 0.6 % (0.2-2.0); Eosinophils Absolute Auto 0.1 10^3/uL (0.0-0.7); Eosinophils Percent Auto 1.1 % (0.9-7.0); Hematocrit 40.6 % (36.0-48.0); Hemoglobin 13.4 g/dL (12.0-16.0); Immature Granulocytes Abs Auto 0.02 10^3/uL (0.00-0.03); Immature Granulocytes Pct Auto 0.4 % (0.0-0.5); Lymphocytes Absolute Auto 1.6 10^3/uL (1.2-3.8); Lymphocytes Percent Auto 30.1 % (20.5-60.0); Mean Corpuscular Hemoglobin 29.9 pg (26.7-34.0); Mean Corpuscular Volume 90.6 fL (81.0-99.0); Mean Platelet Volume 9.3 fL (9.5-13.5); Monocytes Absolute Auto 0.4 10^3/uL (0.3-0.8); Monocytes Percent Auto 7.1 % (1.7-12.0); Neutrophils Absolute Auto 3.2 10^3/uL (1.4-6.5); Neutrophils Percent Auto 60.7 % (43.0-75.0); Platelet Count 202 10^3/uL (150-450); Red Blood Count 4.48 10^6/uL (4.20-5.40); Red Cell Distribution Width 12.8 % (11.0-15.0); White Blood Count 5.3 10^3/uL (4.0-11.0)
[2023-12-23 08:55] LABS: Free T4 1.11 ng/dL (0.76-1.46)
[2023-12-23 09:00] LABS: Alanine Aminotransferase 41 U/L (14-59); Albumin Globulin Ratio 0.9; Alkaline Phosphatase 113 U/L (46-116); Anion Gap 10.7; Aspartate Amino Transferase 39 U/L (15-37); BUN Creatinine Ratio 19.8; Bilirubin Total 0.6 mg/dL (0.2-1.0); Calcium 8.4 mg/dL (8.5-10.1); Carbon Dioxide 28.8 mmol/L (21.0-32.0); Chloride 104 mmol/L (98-107); Estimated GFR (African America >60 (>=60); Estimated GFR (Non-African Ame 53 (>=60); Globulin 3.4 g/dL; Glucose 152 mg/dL (74-106); Lactate Dehydrogenase 196 U/L (81-234); Potassium 3.5 mmol/L (3.5-5.1); Sodium 140 mmol/L (136-145); Thyroid Stimulating Hormone 2.287 uIU/mL (0.358-3.740); Total Protein 6.4 g/dL (6.4-8.2)
[2023-12-24 14:10] LABS: ACTH, Plasma 20.2 pg/mL (7.2-63.3)
== END 2023-12-23 07:06 | disposition home or self-care (01) ==
LOC: LAB 07:07
PROVIDERS: PCP Family Medicine; Visit Provider Internal Medicine
DX: C43.9 Malignant melanoma of skin, unspecified (principal)
CPT/HCPCS: 36415; 80053; 82024; 83615; 84439; 84443; 85025

== ENCOUNTER 2024-02-17 06:59 | Outpatient (OUT) | payer MEDICARE, SELFPAY ==
--- OUTSIDE RECORDS SUMMARY | 2024-02-17 07:06 | XMS_ITS | CCD ---
Author Organization [facility] Care Team Providers Care Professor Of Religion Name Role Phone Quentin Fitzpatrick Unavailable Unavailable Yohana Yoni Larson Unavailable Unavailable Unavailable Quentin Fitzpatrick Unavailable Unavailable DO Sly Benson II Attending Provider Yohana, DO [place] Primary Care Provider MD Alex Trammell Referring Provider [phone] DO Sly Benson II Attending Provider [phone] Yohana, Yoni Primary Care Provider MD Alex Trammell Referring Provider MD Alex Trammell Attending Provider Yohana, DO Yoni Primary Care Provider DO Sly Benson II Attending Provider [phone] MD Alex Trammell Referring Provider Yohana, Yoni Primary Care Provider MD Alex Trammell Attending Provider DO Sly Benson II Attending Provider [phone] MD Alex Trammell Referring Provider DO Sly Benson II Attending Provider MD Alex Trammell Referring Provider Yohana, Yoni Primary Care Provider MD Alex Trammell Attending Provider Kelley II, DO Sly J Attending Provider MD Alex Trammell Referring Provider MD Alex Trammell Referring Provider [phone] MD Alex Trammell Referring Provider Kelley II, DO Sly Jeffrey Attending Provider [phone] Furlong, DO Yoni Primary Care Provider [phone] MD Alex Trammell Referring Provider Kelley II, DO Sly Jeffrey Attending Provider Furlong, DO Yoni Primary Care Provider MD Alex Trammell Referring Provider Adamhilario II, DO Sly J Attending Provider Furlong, DO [place] Primary Care Provider [phone] MD Alex Trammell Referring Provider [phone] DAMEONICZ, SLY J Admitting Unavailable FURLONG, DR YONI [...] Unavailable DR YONI MULLER Primary Care Unavailable DAMEONICZ, SLY J Attending Unavailable DAMEONICZ, SLY J Admitting Unavailable ADAMOWICZ, SLY J Consulting Unavailable ADAMOWICZ, SLY J Attending Unavailable DAMEONICZ, SLY J Admitting Unavailable SHUNOWICZ, SLY J Consulting Unavailable Dameonicz II, DO Sly J Attending Provider Furloedmar, DO Yoni Primary Care Provider [phone] MD Alex Trammell Referring Provider Kelley II, DO Sly Jeffrey Attending Provider Jewelng, DO Yoni Primary Care Provider MD Alex Trammell Referring Provider [phone] Regino Kimber Unavailable Kelley II, DO Sly Jeffrey Attending Provider Furlong, DO [place] Primary Care Provider [phone] MD Alex Trammell Referring Provider Kelley II, DO Sly Jeffrey Attending Provider Yohana, DO [place] Primary Care Provider MD Alex Trammell Referring Provider Kelley II, DO Sly Jeffrey Attending Provider Yohana, DO [place] Primary Care Provider [phone] MD Alex Trammell Referring Provider Furng Yoni MITCHELL Primary Care Provider Kelley II, DO Sly Jeffrey Attending Provider Yohana, DO [place] Primary Care Provider MD Alex Trammell Referring Provider Kelley II, Sly Jeffrey Admitting Unavaila ble Kelley II, Sly Jeffrey Attending Unavaila ble Yoni Muller Primary Care Unavailable Sly Benson II Admitting UnavailSly Whaley II Attending Unavaila Alex Baumann Referring Unavailab Yoni Li Primary Care Unavailable Allergies Allergy Classification Reported Allergen(s) Allergy Type Date of Onset Reaction(s) Facility Penicillins (antibiotic) (1 source) Penicillins Drug Allergy 4 [facility] Repository (3 sources) No Alert Propensity to adverse reactions to drug 1 [facility] (2 sources) Penicillin Drug Allergy Unknown [facility] Repository (4 sources) Penicillins Propensity to adverse reactions to drug 2 [facility] Medications Current Medications Medication Drug Class(es) Dates [...] Thiazide Diuretic Start: 2 End: 4 take 25 mg by mouth once daily Hydrochlorothiazide Active 25 MG PO Daily October 04, 2021 12:00am microencapsulated potassium chloride 10 meq extended release oral tablet (12 sources) Start: 4 take 1 tablet by [...] 06, 2022 10:21am Potassium Chlori de Active predniSONE 20 mg [...] sources) HMG-CoA Reductase Inhibitor Start: 10-04-2021 take 10 mg by mouth once daily Rosuvastatin Active 10 MG PO Daily October 04, 2021 12:00am vitamin b12 0.1 mg oral tablet (4 [...] 30-Nov-2020 Active dexamethasone 2 mg oral tablet (8 sources) Corticosteroid Start: 08-29-2022 End: 09-08-2022 take 2 tablets by mouth after breakfast, then take 1 tablet by mouth after lunch Dexamethasone Discontinued 2 MG PO As Directed August 29, 2022 1:00am September 08, 2022 10:52am Take 4mg (2 tablets) in the morning after breakfast, and 2mg (1 tablet) in the afternoon after lunch for 5 days. diazePAM 5 mg oral tablet (9 sources) Benzodiazepine Start: 08-12-2022 End: 10-06-2022 Diazepam [...] Active mometasone furoate 1 mg/ml topical cream (6 sources) Corticosteroid Start: 09-15-2022 End: 11-03-2022 Mometasone Discontinued 1 APPLIC TOPICAL Daily September 15, 2022 1:00am November 03, 2022 10:11am Apply twice daily. QUEtiapine 25 mg oral [...] Active traZODone hydrochloride 50 mg oral tablet (6 sources) Serotonin Reuptake Inhibitor Start: 09-08-2022 End: [...] Interpretation Reference Range Facility Adrenocorticotropic Hormone PLon 01-20-[address] 21.6 pg/mL Normal 7.2-63.3 [facility] Comment on above: Result Comment: ACTH reference interval for samples collected between 7 and 10 AM. Performed at: [facility] [id number] Field Marketer: Coleman Lacy PhD, Phone: [phone] PERFORMED BY: [place] [address] PATHOLOGIST CAR SPOTTER WAYLON SAUNDERS M.D. Performed By: #### T 4F, CMP, LDH, TSH3, CBC ####[facility]#### ACTH ####[facility] , Alanine aminotransferase [En zymatic activity/volume] in Serum or PlasmaOrdered By: Sly Benson on 01-20-2024 ALT [Catalytic activity/Vol] 34 U/L Normal 7-52 [facility] Comment on above: Performed By: #### T 4F, CMP, LDH, TSH3, CBC #### [facility] [address] [place] [address] [place] #### ACTH #### [facility] , Albumin [Mass/volume] in Ser um or Plasma by Bromocresol green (BCG) dye binding methoOrdered By: Sly Benson on 01-20-2024 Albumin BCG dye [Mass/Vol] 4.0 g/dL 3.5-5.7 [facility] Alkaline phosphatase [Enzyma tic activity/volume] in Serum or PlasmaOrdered By: Sly Benson on 01-20-2024 ALP [Catalytic activity/Vol] 109 U/L High 34-104 [facility] Comment on above: Performed By: #### T 4F, CMP, LDH, TSH3, CBC #### [facility] [address] [place] [address] [place] #### ACTH #### [facility] , Aspartate aminotransferase [ Enzymatic activity/volume] in Serum or PlasmaOrdered By: Sly Benson on 01-20-2024 AST [Catalytic activity/Vol] 26 U/L Normal 13-39 [facility] Comment on above: Performed By: #### T 4F, CMP, LDH, TSH3, CBC #### [facility] [address] [place] [address] [place] #### ACTH #### [facility] , Automated basophil %Ordered By: Sly Benson on 01-20-2024 Basophils/100 WBC (Bld) 0.3 % Normal . [facility] Comment on above: Performed By: #### T 4F, CMP, LDH, TSH3, CBC #### [facility] [address] [place] [address] [place] #### ACTH #### [facility] , Automated basophil countOrde red By: Sly Benson on 01-20-2024 Basophils (Bld) [#/Vol] 0.0 10*3/uL Normal 0.0-0.2 [facility] Comment on above: Result Comment: PERF ORMED BY: [place] [address] PATHOLOGIST CAR SPOTTER WAYLON SAUNDERS M.D. Performed By: #### T 4F, CMP, LDH, TSH3, CBC #### [facility] [address] [place] [address] [place] #### ACTH #### [facility] , Automated blood monocyte cou ntOrdered By: Sly Benson on 01-20-2024 Monocytes (Bld) [#/Vol] 0.8 10*3/uL Normal 0.0-0.8 [facility] Comment on above: Performed By: #### T 4F, CMP, LDH, TSH3, CBC #### [place] [address] [place] #### ACTH #### [facility] , Automated eosinophil %Ordere d By: Sly Benson on 01-20-2024 Eosinophils/100 WBC (Bld) 1.3 % Normal . [facility] Comment on above: Performed By: #### T 4F, CMP, LDH, TSH3, CBC #### [place] [address] [place] #### ACTH #### [facility] , Automated eosinophil countOr dered By: Sly Benson on 01-20-2024 Eosinophils (Bld) [#/Vol] 0.1 10*3/uL Normal 0.0-0.45 [facility] Comment on above: Performed By: #### T 4F, CMP, LDH, TSH3, CBC #### [place] [address] [place] #### ACTH #### [facility] , Automated monocyte %Ordered By: Sly Benson on 01-20-2024 Monocytes/100 WBC (Bld) 8.7 % Normal . [facility] Comment on above: Performed By: #### T 4F, CMP, LDH, TSH3, CBC #### [place] [address] [place] #### ACTH #### [facility] , Automated neutrophil %Ordere d By: Sly Benson on 01-20-2024 Neutrophils/100 WBC (Bld) 71.5 % Normal . [facility] Comment on above: Performed By: #### T 4F, CMP, LDH, TSH3, CBC #### [address] [place] [address] [place] #### ACTH #### [facility] , Bilirubin.total [Mass/volume ] in Serum or PlasmaOrdered By: Sly Benson on 01-20-2024 Bilirubin [Mass/Vol] 0.8 mg/dL Normal 0.3-1.0 [facility] Comment on above: Performed By: #### T 4F, CMP, LDH, TSH3, CBC #### [facility] [address] [place] [address] #### ACTH #### [facility] , CT abdomen pelvis w conon CT abdomen pelvis w con [facility] [place] [address] [place] [address] CT Scan Report Signed Patient: Theresa Luu MR#: [id number] : 1945 Acct:[id number] Age/Sex: 78 / F ADM Date: 01/20/24 Loc: Room: Type: [facility] RCR Attending Dr: Sly Benson II DO Copies to: Sly Benson II, DO Ordering Provider: Sly Benson II, DO Date of Service: 01/20/24 CT/CT chest w con: MELANOMA ([id number]) CT/CT abdomen pelvis w con: MELANOMA CT CHEST, ABDOMEN AND PELVIS WITH INTRAVENOUS CONTRAST: CLINICAL HISTORY: Inguinal lymphadenopathy, cough. History of melanoma and left-sided breast cancer. COMPARISON: CT chest, abdomen and pelvis 08/06/2023 TECHNIQUE: TECHNIQUE: Spiral images were obtained through the chest, abdomen and pelvis following the administration of IV contrast. This CT exam was performed using one or more following dose reduction techniques: Automated exposure control, adjustment of the mA and/or kV according to patient size, or use of iterative reconstruction technique. FINDINGS: CT chest: Mediastinum:Vascular demonstrate mild calcification without aneurysm. Pulmonary trunk appears nondilated. No pleural effusion or lymphadenopathy. The esophagus is grossly unremarkable. Lungs:Mild lung scarring. No consolidation pneumothorax or pleural effusion. Stable left upper lobe lung nodules, largest measuring 5 mm series 5 image 28. No new or enlarging suspicious pulmonary nodules. Soft tissues/Bones: Soft tissues surrounding the chest wall demonstrate no acute findings. Post surgical changes left breast. No axillary lymphadenopathy. Osseous structures demonstrate degenerative change. CT abdomen and pelvis: Organs:Liver gallbladder portal vein pancreas spleen and adrenal glands all appear unremarkable. No enhancing renal mass or hydronephrosis. Abdominal aorta appears normal in caliber.[ GI: Small hiatal hernia. Distal stomach is grossly unremarkable. Small bowel appears nondilated. No acute colonic abnormality. Moderate stool burden. Left colon diverticulosis.[ Pelvis:[Urinary bladder is grossly unremarkable. IUD is in place. No adnexal mass. 2.8 cm right ovarian cyst, unchanged. Post surgical changes left groin region with [...] or pelvis findings compared to the prior study. Impression dictated by: Sylvain Monroe Jr., Sita01/20/2024 11:24 AM Dictation Location: [place] [address] Transcribed By: [facility] 01/20/24 1124 Dictated By: Sylvain Monroe Jr, DO 01/20/24 1111 Signed By: 01/20/24 1124 Normal [facility] Calcium [Mass/volume] in Ser um or PlasmaOrdered By: Sly Benson on 01-20-2024 Calcium [Mass/Vol] 9.1 mg/dL Normal 8.6-10.3 [facility] Comment on above: Performed By: #### T 4F, CMP, LDH, TSH3, CBC #### [facility] [address] [place] [address] [place] #### ACTH #### [facility] , Carbon dioxide, total [Moles /volume] in Serum or PlasmaOrdered By: Sly Benson on 01-20-2024 CO2 [Moles/Vol] 29.1 mmol/L Normal 21.0-31.0 [facility] Comment on above: Performed By: #### T 4F, CMP, LDH, TSH3, CBC #### [facility] [address] [place] [address] [place] #### ACTH #### [facility] , Chloride [Moles/volume] in S mellissa or PlasmaOrdered By: Sly Benson on 01-20-2024 Chloride [Moles/Vol] 102 mmol/L Normal 98-107 [facility] Comment on above: Performed By: #### T 4F, CMP, LDH, TSH3, CBC #### [facility] [address] [place] [address] [place] #### ACTH #### [facility] , Complete Blood Count Auto Di ffon 01-20-2024 Mean Corpuscular HGB Conc 33.7 g/dL Normal 32.0-35.0 [facility] Comment on above: Performed By: #### T 4F, CMP, LDH, TSH3, CBC #### [place] [address] [place] #### ACTH #### [facility] , NRBC% 0.0 /100{WBC} Normal 0-0.5 [facility] Comment on above: Performed By: #### T 4F, CMP, LDH, TSH3, CBC #### [place] [address] [place] #### ACTH #### [facility] , Comprehensive Metabolic Pane eileen 01-20-2024 Albumin [Mass/Vol] 4.0 g/dL Normal 3.5-5.7 [facility] Comment on above: Performed By: #### T 4F, CMP, LDH, TSH3, CBC #### [facility] [address] [place] [address] [place] #### ACTH #### [facility] , Creatinine Clr Calc Pharmacy 58.76 Normal [facility] Comment on above: Performed By: #### T 4F, CMP, LDH, TSH3, CBC #### [facility] [address] [place] [address] [place] #### ACTH #### [facility] , GFR/1.73 sq M.predicted MDRD (S/P/Bld) [Vol rate/Area] mL/min/{1.73_m2} Normal [facility] Comment on above: Performed By: #### T 4F, CMP, LDH, TSH3, CBC #### [place] [address] [place] #### ACTH #### [facility] , Creatinine [Mass/volume] in Serum or PlasmaOrdered By: Sly Benson on 01-20-2024 Creatinine [Mass/Vol] 0.84 mg/dL Normal 0.60-1.20 [facility] Comment on above: Performed By: #### T 4F, CMP, LDH, TSH3, CBC #### [place] [address] [place] #### ACTH #### [facility] , Erythrocyte distribution wid th [Ratio] by Automated countOrdered By: Sly Benson on 01-20-2024 Erythrocyte distribution width (RBC) [Ratio] 14.1 % Normal 11.9-15.3 [facility] Comment on above: Performed By: #### T 4F, CMP, LDH, TSH3, CBC #### [place] [address] [place] #### ACTH #### [facility] , Erythrocytes [#/volume] in B lood by Automated countOrdered By: Sly Benson on 01-20-2024 RBC (Bld) [#/Vol] 4.77 10*6/uL Normal 3.60-5.00 [facility] Comment on above: Performed By: #### T 4F, CMP, LDH, TSH3, CBC #### [place] [address] [place] #### ACTH #### [facility] , Glucose [Mass/volume] in Ser um or PlasmaOrdered By: Sly Benson on 01-20-2024 Glucose [Mass/Vol] 112 mg/dL High 70-100 [facility] Comment on above: ADA recommended refe rence rangeRandom Glucose Reference Range is dependent on time and content of last meal. Glucose of more than 200 mg/dL in a nonstressed, ambulatory subject supports the diagnosis of Diabetes Mellitus. Result Comment: Anthony om Glucose Reference Range is dependent on time and content of last meal. Glucose of more than 200 mg/dL in a nonstressed, ambulatory subject supports the diagnosis of Diabetes Mellitus. ADA recommended reference range Performed By: #### T 4F, CMP, LDH, TSH3, CBC #### [place] [address] [place] #### ACTH #### [facility] , Hematocrit [Volume Fraction] of Blood by Automated countOrdered By: Sly Benson on 01-20-2024 Hematocrit (Bld) [Volume fraction] 43.2 % Normal 34.0-46.4 [facility] Comment on above: Performed By: #### T 4F, CMP, LDH, TSH3, CBC #### [place] [address] [place] #### ACTH #### [facility] , Hemoglobin [Mass/volume] in BloodOrdered By: Sly Benson on 01-20-2024 Hemoglobin (Bld) [Mass/Vol] 14.6 g/dL Normal 11.8-15.4 [facility] Comment on above: Performed By: #### T 4F, CMP, LDH, TSH3, CBC #### [place] [address] [place] #### ACTH #### [facility] , LDH Lactate Dehydrogenaseon 01-20-2024 LDH Lactate Dehydrogenase 191 U/L Normal 140-271 [facility] Comment on above: Performed By: #### T 4F, CMP, LDH, TSH3, CBC #### [place] [address] [place] #### ACTH #### [facility] , Lactate dehydrogenase [Enzym atic activity/volume] in Serum or Plasma by Lactate to pyOrdered By: Sly Benson on 01-20-2024 LDH Lactate to pyruvate reaction [Catalytic activity/Vol] 191 U/L 140-271 [facility] Leukocytes [#/volume] correc margot for nucleated erythrocytes in Blood by Automated counOrdered By: Sly Benson on 01-20-2024 WBC corrected for nucl RBC Auto (Bld) [#/Vol] 9.2 10*3/uL 3.8-11.6 [facility] Leukocytes [#/volume] in Blo od by Automated countOrdered By: Sly Benson on 01-20-2024 WBC (Bld) [#/Vol] 9.2 10*3/uL Normal 3.8-11.6 [facility] Comment on above: Performed By: #### T 4F, CMP, LDH, TSH3, CBC #### [facility] [address] [place] [address] [place] #### ACTH #### [facility] , Lymphocytes [#/volume] in Bl ood by Automated countOrdered By: Sly Benson on 01-20-2024 Lymphocytes (Bld) [#/Vol] 1.7 10*3/uL Normal 1.00-4.8 [facility] Comment on above: Performed By: #### T 4F, CMP, LDH, TSH3, CBC #### [facility] [address] [place] [address] [place] #### ACTH #### [facility] , Lymphocytes/100 leukocytes i n Blood by Automated countOrdered By: Sly Benson on 01-20-2024 Lymphocytes/100 WBC (Bld) 18.2 % Normal . [facility] Comment on above: Performed By: #### T 4F, CMP, LDH, TSH3, CBC #### [facility] [address] [place] [address] [place] #### ACTH #### [facility] , MCH [Entitic mass] by Automa margot countOrdered By: Sly Benson on 07-10-2024 MCH (RBC) [Entitic mass] 30.5 pg Normal 24.7-34.3 [facility] Comment on above: Performed By: #### T 4F, CMP, LDH, TSH3, CBC #### [facility] [address] [place] [address] [place] #### ACTH #### [facility] , MCHC Auto (RBC) [Mass/Vol]Or dered By: Sly Benson on 01-20-2024 MCHC (RBC) [Mass/Vol] 33.7 g/dL 32.0-35.0 [facility] MCV [Entitic volume] by Auto mated countOrdered By: Sly Benson on 01-20-2024 MCV (RBC) [Entitic vol] 90.4 fL Normal 80-100 [facility] Comment on above: Performed By: #### T 4F, CMP, LDH, TSH3, CBC #### [facility] [address] [place] [address] [place] #### ACTH #### [facility] , Neutrophils [#/volume] in Bl ood by Automated countOrdered By: Sly Benson on 01-20-2024 Neutrophils (Bld) [#/Vol] 6.6 10*3/uL Normal 1.8-7.7 [facility] Comment on above: Performed By: #### T 4F, CMP, LDH, TSH3, CBC #### [facility] [address] [place] [address] [place] #### ACTH #### [facility] , No Panel InformationOrdered By: Sly Benson on 01-20-2024 Adrenocorticotropic Hormone 21.6 pg/mL 7.2-63.3 [facility] Comment on above: ACTH reference inter jamel for samples collected between 7 and10 AM.Performed at: [facility] [address] [id number] Director: Coleman Lacy PhD, Phone: [phone] Estimated GFR (CKD-EPI) > 60.0 mL/Min [facility] Creatinine Clearance (Chem 58.76 [facility] Nucleated erythrocytes [Pres ence] in Blood by Automated countOrdered By: Sly Benson on 01-20-2024 Nucleated RBC Auto Ql (Bld) 0.0 /100{WBC} 0-0.5 [facility] Platelet mean volume [Entiti c volume] in Blood by Automated countOrdered By: Sly Benson on 01-20-2024 Platelet mean volume (Bld) [Entitic vol] 7.3 fL Normal 6.3-10.7 [facility] Comment on above: Performed By: #### T 4F, CMP, LDH, TSH3, CBC #### [facility] [address] [place] [address] [place] #### ACTH #### [facility] , Platelets [#/volume] in Bloo d by Automated countOrdered By: Sly Benson on 01-20-2024 Platelets (Bld) [#/Vol] 182 10*3/uL Normal 150-450 [facility] Comment on above: Performed By: #### T 4F, CMP, LDH, TSH3, CBC #### [facility] [address] [place] [address] [place] #### ACTH #### [facility] , Potassium [Moles/volume] in Serum or PlasmaOrdered By: Sly Benson on 01-20-2024 Potassium [Moles/Vol] 3.6 mmol/L Normal 3.5-5.1 [facility] Comment on above: Performed By: #### T 4F, CMP, LDH, TSH3, CBC #### [facility] [address] [place] [address] [place] #### ACTH #### [facility] , Protein [Mass/volume] in Ser um or PlasmaOrdered By: Sly Benson on 01-20-2024 Protein [Mass/Vol] 6.9 g/dL Normal 6.4-8.9 [facility] Comment on above: Performed By: #### T 4F, CMP, LDH, TSH3, CBC #### [facility] [address] [place] [address] [place] #### ACTH #### [facility] , Serum globulin measurement b y calculation (mass/volume)Ordered By: Sly Benson on 01-20-2024 Globulin (S) [Mass/Vol] 2.9 g/dL [facility] Comment on above: Performed By: #### T 4F, CMP, LDH, TSH3, CBC #### [facility] [address] [place] [address] [place] #### ACTH #### [facility] , Serum or plasma albumin/glob ulin mass ratioOrdered By: Sly Benson on 01-20-2024 Albumin/Globulin [Mass ratio] 1.4 {ratio} [facility] Comment on above: Performed By: #### T 4F, CMP, LDH, TSH3, CBC #### [facility] [address] [place] [address] [place] #### ACTH #### [facility] , Serum or plasma anion gap de terminationOrdered By: Sly Benson on 01-20-2024 Anion gap [Moles/Vol] 11.5 mmol/L Normal 6.0-15.0 [facility] Comment on above: Performed By: #### T 4F, CMP, LDH, TSH3, CBC #### [facility] [address] [place] [address] [place] #### ACTH #### [facility] , Sodium [Moles/volume] in Ser um or PlasmaOrdered By: Sly Benson on 01-20-2024 Sodium [Moles/Vol] 139 mmol/L Normal 136-145 [facility] Comment on above: Performed By: #### T 4F, CMP, LDH, TSH3, CBC #### [facility] [address] [place] [address] [place] #### ACTH #### [facility] , Thyrotropin [Units/volume] i n Serum or PlasmaOrdered By: Sly Benson on 01-20-2024 TSH Qn 2.04 m[IU]/L Normal 0.45-5.33 [facility] Comment on above: Result Comment: PERF ORMED BY: [place] [address] PATHOLOGIST CAR SPOTTER WAYLON SAUNDERS M.D. Performed By: #### T 4F, CMP, LDH, TSH3, CBC ####[facility] [id number] [place] [address] [place]#### ACTH ####[facility] , Thyroxine (T4) free [Mass/vo lume] in Serum or PlasmaOrdered By: Sly Benson on 01-20-2024 Free T4 [Mass/Vol] 1.16 ng/dL High 0.61-1.12 [facility] Comment on above: Performed By: #### T 4F, CMP, LDH, TSH3, CBC #### [facility] [address] [place] [address] [place] #### ACTH #### [facility] , Urea nitrogen [Mass/volume] in Serum or PlasmaOrdered By: Sly Benson on 01-20-2024 Urea nitrogen [Mass/Vol] 19 mg/dL Normal 7-25 [facility] Comment on above: Performed By: #### T 4F, CMP, LDH, TSH3, CBC #### [facility] [address] [place] [address] [place] #### ACTH #### [facility] , XR Wrist - left 3 ViewsOrder ed By: Caty Gaona on 2023 Radiology Study observation (narrative) [facility] XR Wrist - left 3 ViewsOrder ed By: Caty Gaona on 10-01-2023 [facility] Basic Metabolic Panelon Anion gap [Moles/Vol] 7 mmol/L 5 - 15 mmol/L [facility] Calcium [Mass/Vol] 9.5 mg/dL 8.5 - 10. 5 mg/dL [facility] Chloride [Moles/Vol] 101 mmol/L 98 - 10 9 mmol/L [facility] CO2 [Moles/Vol] 32 mmol/L 22 - 32 mmol/L [facility] Creatinine [Mass/Vol] 0.96 mg/dL 0.40 - 1.00 mg/dL [facility] Comment on above: METHOD TRACEABLE TO [place] STANDARD eGFR (CKD-EPI)non-race dependent 61 - PINF [facility] Comment on above: Reported eGFR is based on the CKD-EPI 2020 equation that does not use a race coefficient. Glucose [Mass/Vol] 107 mg/dL High 65 - 99 mg/dL [facility] Interpretation and review of laboratory results Abnormal [facility] Potassium [Moles/Vol] 3.3 mmol/L Low 3.5 - 5.0 mmol/L [facility] Sodium [Moles/Vol] 140 mmol/L 134 - 146 mmol/L [facility] Urea nitrogen [Mass/Vol] 22 mg/dL 5 - 27 mg/dL [facility] CBC without diffon 4 Erythrocyte distribution width (RBC) [Ratio] 13.9 % 11.5 - 15.0 % [facility] Hematocrit (Bld) [Volume fraction] 39.4 % 35 - 47 % [facility] Hemoglobin (Bld) [Mass/Vol] 13.5 g/dL 11.7 - 15.5 g/dL [facility] MCH (RBC) [Entitic mass] 30.4 pg 27 - 34 pg [facility] MCHC (RBC) [Mass/Vol] 34.2 g/dL 32 - 3 6 g/dL [facility] MCV (RBC) [Entitic vol] 89 fL 80 - 100 fL [facility] Platelet mean volume (Bld) [Entitic vol] 7.9 fL 7 - 12 fL [facility] Platelets (Bld) [#/Vol] 202 10*3/uL [facility] RBC (Bld) [#/Vol] 4.43 10*6/uL [facility] WBC corrected for nucl RBC Auto (Bld) [#/Vol] 6.6 [facility] Lipid 1996 panelon 4 Cholesterol [Mass/Vol] 154 mg/dL 150 - 200 mg/dL [facility] Cholesterol in HDL [Mass/Vol] 76 mg/dL 39 - PINF mg/dL [facility] Comment on above: HDL <40 mg/dL - High Risk HDL > or = 40mg/dL- Desirable HDL >60 mg/dL - Negative Risk Cholesterol in LDL [Mass/Vol] 52 mg/dL NINF - 130 mg/dL [facility] Comment on above: LDL <100 mg/dL - Desirable LDL >160 mg/dL - High Risk Cholesterol in VLDL [Mass/Vol] 26 mg/dL 0 - 30 mg/dL [facility] Cholesterol.total/Chol esterol in HDL [Mass ratio] 2.0 {ratio} 1.0 - 5.0 [facility] Triglyceride [Mass/Vol] 132 mg/dL 27 - 150 mg/dL [facility] Magnesiumon 09-15-2023 Magnesium [Mass/Vol] 1.9 mg/dL 1.8 - 2 .6 mg/dL [facility] No Panel Informationon 09-14 [facility] Parathyrin.intact [Mass/Vol] on 09-15-2023 [facility] Parathyroid Hormone, intacto n 09-15-2023 Parathyrin.intact [Mass/Vol] 36 pg/mL 12 - 88 pg/mL [facility] Phosphoruson 09-15-2023 Phosphate [Mass/Vol] 3.6 mg/dL 2.4 - 4 .9 mg/dL [facility] Uric acidon 09-15-2023 Urate [Mass/Vol] 5.4 mg/dL 2.6 - 7.2 mg/dL [facility] Vitamin D 25 hydroxyon 09-14 Vitamin D+Metabolites [Mass/Vol] 28.4 ng/mL Low 30 - 100 ng/mL [facility] Comment on above: Vitamin D status 25 [place] Vitamin D Deficiency <20 ng/mL Insufficiency 20-29 ng/mL Sufficiency 30-100 ng/mL Toxicity >100 ng/mL NOTE: A pediatric reference range has not been established by the model maker scale of this kit. The [employer] recommends a Vitamin D level of = or >20ng/mL in infants and children. Vitamin D+Metabolites [Mass/ Vol]on 09-15-2023 Interpretation and review of laboratory results Abnormal [employer] [facility] Complete Blood Count Auto Di ffon 08-07-2023 Basophils (Bld) [#/Vol] 0.0 10*3/uL Normal 0.0-0.2 [facility] Comment on above: Result Comment: PERF ORMED BY: [address] [place] [address] PATHOLOGIST [employer] SPOT[employer] WAYLON SAUNDERS M.D. Performed By: #### C BC ####[address] Basophils/100 WBC (Bld) 0.5 % Normal . [facility] Comment on above: Performed By: #### C BC ####[address] Eosinophils (Bld) [#/Vol] 0.0 10*3/uL Normal 0.0-0.45 [facility] Comment on above: Performed By: #### C BC ####[address] Eosinophils/100 WBC (Bld) 0.1 % Normal . [facility] Comment on above: Performed By: #### C BC ####[address] Erythrocyte distribution width (RBC) [Ratio] 13.6 % Normal 11.9-15.3 [facility] Comment on above: Performed By: #### C BC ####[place] [id number] [facility] Hematocrit (Bld) [Volume fraction] 37.0 % Normal 34.0-46.4 [facility] Comment on above: Performed By: #### C BC ####[address] Hemoglobin (Bld) [Mass/Vol] 12.8 g/dL Normal 11.8-15.4 [facility] Comment on above: Performed By: #### C BC ####[address] Lymphocytes (Bld) [#/Vol] 1.1 10*3/uL Normal 1.00-4.8 [facility] Comment on above: Performed By: #### C BC ####[address] Lymphocytes/100 WBC (Bld) 13.9 % Normal . [facility] Comment on above: Performed By: #### C BC ####[address] MCH (RBC) [Entitic mass] 30.2 pg Normal 24.7-34.3 [facility] Comment on above: Performed By: #### C BC ####[address] MCV (RBC) [Entitic vol] 87.3 fL Normal 80-100 [facility] Comment on above: Performed By: #### C BC ####[address] Mean Corpuscular HGB Conc 34.6 g/dL Normal 32.0-35.0 [facility] Comment on above: Performed By: #### C BC ####[address] Monocytes (Bld) [#/Vol] 0.5 10*3/uL Normal 0.0-0.8 [facility] Comment on above: Performed By: #### C BC ####[address] Monocytes/100 WBC (Bld) 6.4 % Normal . [facility] Comment on above: Performed By: #### C BC ####[place] [id number] [facility] Neutrophils (Bld) [#/Vol] 6.0 10*3/uL Normal 1.8-7.7 [facility] Comment on above: Performed By: #### C BC ####[place] [id number] [facility] Neutrophils/100 WBC (Bld) 79.1 % Normal . [facility] Comment on above: Performed By: #### C BC ####[address] NRBC% 0.0 /100{WBC} Normal 0-0.5 [facility] Comment on above: Performed By: #### C BC ####[place] [id number] [facility] Platelet mean volume (Bld) [Entitic vol] 7.3 fL Normal 6.3-10.7 [facility] Comment on above: Performed By: #### C BC ####[place] [id number] [facility] Platelets (Bld) [#/Vol] 202 10*3/uL Normal 150-450 [facility] Comment on above: Performed By: #### C BC ####[place] [id number] [facility] RBC (Bld) [#/Vol] 4.24 10*6/uL Normal 3.60-5.00 [facility] Comment on above: Performed By: #### C BC ####[place] [id number] [facility] WBC (Bld) [#/Vol] 7.6 10*3/uL Normal 3.8-11.6 [facility] Comment on above: Performed By: #### C BC ####[place] [id number] [facility] Adrenocorticotropic Hormone PLon 08-06-[address] 21.1 pg/mL Normal 7.2-63.3 [facility] Comment on above: Result Comment: ACTH reference interval for samples collected between 7 and 10 AM. Performed at: - [facility] [id number] Field Marketer: Coleman Lacy PhD, Phone: [phone] PERFORMED BY: [facility] [address] [place] [address] PATHOLOGIST [employer]OT[employer] WAYLON SAUNDERS M.D. Performed By: #### A CT #### [facility] , Alanine aminotransferase [En zymatic activity/volume] in Serum or PlasmaOrdered By: Sly Benson on 08-06-2023 ALT [Catalytic activity/Vol] 23 U/L Normal 7-52 [facility] Comment on above: Performed By: #### T SH3, T4F, LDH, CMP ####[place] [id number] [place] [address] [place] Albumin [Mass/volume] in Ser um or Plasma by Bromocresol green (BCG) dye binding methoOrdered By: Sly Benson on 08-06-2023 Albumin BCG dye [Mass/Vol] 4.0 g/dL 3.5-5.7 [facility] Alkaline phosphatase [Enzyma tic activity/volume] in Serum or PlasmaOrdered By: Sly Benson on 08-06-2023 ALP [Catalytic activity/Vol] 95 U/L Normal 34-104 [facility] Comment on above: Performed By: #### T SH3, T4F, LDH, CMP ####[place] [id number] [place] [id number] [facility] Aspartate aminotransferase [ Enzymatic activity/volume] in Serum or PlasmaOrdered By: Sly Benson on 08-06-2023 AST [Catalytic activity/Vol] 29 U/L Normal 13-39 [facility] Comment on above: Performed By: #### T SH3, T4F, LDH, CMP ####[address] [address] [facility] Bilirubin.total [Mass/volume ] in Serum or PlasmaOrdered By: Sly Benson on 08-06-2023 Bilirubin [Mass/Vol] 0.6 mg/dL Normal 0.3-1.0 [facility] Comment on above: Performed By: #### T SH3, T4F, LDH, CMP ####[facility] [address] [place] [id number] [facility] CT abdomen pelvis w conon CT abdomen pelvis w con [facility] [address] [place] [address] [place] [address] CT Scan Report Signed Patient: Theresa Luu MR#: [id number] 322 : 1945 Acct:[id number] Age/Sex: 77 / F ADM Date: 08/06/23 Loc: Room: Type: [facility] RCR Attending Dr: Sly Benson II DO Copies to: Sly Benson II, DO Ordering Provider: Sly Benson II, DO Date of Service: 08/06/23 CT/CT abdomen pelvis w con: surveillance ([id number]) CT/CT chest w con: surveillance CT CHEST, [...] Monroe Jr., D.O.08/06/2023 2:43 PM Dictation Location: [place] [address] Transcribed By: [facility] 08/06/23 1443 Dictated By: Sylvain Monroe Jr, DO 08/06/23 1430 Signed By: 08/06/23 1443 Normal [facility] Calcium [Mass/volume] in Ser um or PlasmaOrdered By: Sly Benson on 08-06-2023 Calcium [Mass/Vol] 9.2 mg/dL Normal 8.6-10.3 [facility] Comment on above: Performed By: #### T SH3, T4F, LDH, CMP ####[facility] [id number] [place] [id number] [facility] Carbon dioxide, total [Moles /volume] in Serum or PlasmaOrdered By: Sly Benson on 08-06-2023 CO2 [Moles/Vol] 30.5 mmol/L Normal 21.0-31.0 [facility] Comment on above: Performed By: #### T SH3, T4F, LDH, CMP ####[facility] [id number] [place] [id number] [facility] Chloride [Moles/volume] in S mellissa or PlasmaOrdered By: Sly Benson on 08-06-2023 Chloride [Moles/Vol] 104 mmol/L Normal 98-107 [facility] Comment on above: Performed By: #### T SH3, T4F, LDH, CMP ####[address] [address] [facility] Comprehensive Metabolic Pane eileen 08-06-2023 Albumin [Mass/Vol] 4.0 g/dL Normal 3.5-5.7 [facility] Comment on above: Performed By: #### T SH3, T4F, LDH, CMP ####[address] [address] [facility] Anion gap [Moles/Vol] Not performed Normal 6.0-15.0 [facility] Comment on above: Performed By: #### T SH3, T4F, LDH, CMP ####[address] [address] [facility] Creatinine Clr Calc Pharmacy 57.70 Normal [facility] Comment on above: Performed By: #### T SH3, T4F, LDH, CMP ####[address] [address] [facility] GFR/1.73 sq M.predicted MDRD (S/P/Bld) [Vol rate/Area] mL/min/{1.73_m2} Normal [facility] Comment on above: Performed By: #### T SH3, T4F, LDH, CMP ####[address] [address] [facility] Potassium Normal 3.5-5.1 [facility] Comment on above: Result Comment: Spec imen hemolyzed, redraw requested Performed By: #### T SH3, T4F, LDH, CMP ####[address] [address] [facility] Creatinine [Mass/volume] in Serum or PlasmaOrdered By: Sly Benson on 08-06-2023 Creatinine [Mass/Vol] 0.87 mg/dL Normal 0.60-1.20 [facility] Comment on above: Performed By: #### T SH3, T4F, LDH, CMP ####[address] [address] [facility] Glucose [Mass/volume] in Ser um or PlasmaOrdered By: Sly Benson on 08-06-2023 Glucose [Mass/Vol] 95 mg/dL Normal 70-100 [facility] Comment on above: ADA recommended refe rence rangeRandom Glucose Reference Range is dependent on time and content of last meal. Glucose of more than 200 mg/dL in a nonstressed, ambulatory subject supports the diagnosis of Diabetes Mellitus. Result Comment: Anthony om Glucose Reference Range is dependent on time and content of last meal. Glucose of more than 200 mg/dL in a nonstressed, ambulatory subject supports the diagnosis of Diabetes Mellitus. ADA recommended reference range Performed By: #### T SH3, T4F, LDH, CMP ####[facility] [address] [place] [address] [facility] LDH Lactate Dehydrogenaseon 08-06-2023 LDH Lactate Dehydrogenase Normal 140-271 [facility] Comment on above: Result Comment: Spec imen hemolyzed, redraw requested Performed By: #### T SH3, T4F, LDH, CMP ####[facility] [id number] [place] [id number] [place] Lactate dehydrogenase [Enzym atic activity/volume] in Serum or Plasma by Lactate to pyOrdered By: Sly Benson on 08-06-2023 LDH Lactate to pyruvate reaction [Catalytic activity/Vol] 173 U/L 140-271 [facility] No Panel InformationOrdered By: Sly Benson on 08-06-2023 Estimated GFR (CKD-EPI) > 60.0 mL/Min [facility] Creatinine Clearance (Chem 57.70 [facility] Potassium [Moles/volume] in Serum or PlasmaOrdered By: Sly Benson on 08-06-2023 Potassium [Moles/Vol] 3.6 mmol/L Normal 3.5-5.1 [facility] Comment on above: Order Comment: SPECI MEN HEMOLYZED. NOTIFIED CHON. Performed By: #### R EDRAW LDH, REDRAW K #### [facility] [address] [place] [address] [place] Protein [Mass/volume] in Ser um or PlasmaOrdered By: Sly Benson on 08-06-2023 Protein [Mass/Vol] 7.0 g/dL Normal 6.4-8.9 [facility] Comment on above: Performed By: #### T SH3, T4F, LDH, CMP ####[place] [id number] Redraw LDHon 08-06-2023 Redraw LDH 173 U/L Normal 140-271 [facility] Comment on above: Order Comment: SPECI MEN HEMOLYZED. NOTIFIED CHON. Result Comment: PERF ORMED BY: [facility] [address] [facility] [place] [address] PATHOLOGIST [employer] SPOTTER WAYLON SAUNDERS M.D. Performed By: #### R EDRAW LDH, REDRAW K #### [address] Serum globulin measurement b y calculation (mass/volume)Ordered By: Sly Benson on 08-06-2023 Globulin (S) [Mass/Vol] 3.0 g/dL Normal [facility] Comment on above: Performed By: #### T SH3, T4F, LDH, CMP ####[place] [id number] Serum or plasma albumin/glob ulin mass ratioOrdered By: Sly Benson on 08-06-2023 Albumin/Globulin [Mass ratio] 1.3 {ratio} [facility] Comment on above: Performed By: #### T SH3, T4F, LDH, CMP ####[place] [id number] Serum or plasma anion gap de terminationOrdered By: Sly Benson on 08-06-2023 Anion gap [Moles/Vol] TNP [facility] Comment on above: Test not performed Sodium [Moles/volume] in Ser um or PlasmaOrdered By: Sly Benson on 08-06-2023 Sodium [Moles/Vol] 141 mmol/L Normal 136-145 [facility] Comment on above: Performed By: #### T SH3, T4F, LDH, CMP ####[place] [id number] Thyrotropin [Units/volume] i n Serum or PlasmaOrdered By: Sly Benson on 08-06-2023 TSH Qn 2.81 m[IU]/L Normal 0.45-5.33 [facility] Comment on above: Result Comment: PERF ORMED BY: [facility] [address] [place] [address] PATHOLOGIST [employer] SPOTTER WAYLON SAUNDERS M.D. Performed By: #### T SH3, T4F, LDH, CMP ####[address] Thyroxine (T4) free [Mass/vo lume] in Serum or PlasmaOrdered By: Sly Benson on 08-06-2023 Free T4 [Mass/Vol] 1.13 ng/dL High 0.61-1.12 [facility] Comment on above: Performed By: #### T SH3, T4F, LDH, CMP ####[address] Urea nitrogen [Mass/volume] in Serum or PlasmaOrdered By: Sly Benson on 08-06-2023 Urea nitrogen [Mass/Vol] 23 mg/dL Normal 7-25 [facility] Comment on above: Performed By: #### T SH3, T4F, LDH, CMP ####[address] Adrenocorticotropic Hormone PLon 03-05-[address] 25.6 pg/mL Normal 7.2-63.3 [facility] Comment on above: Result Comment: ACTH reference interval for samples collected between 7 and 10 AM. Performed at: - [facility] [id number] Field Marketer: Coleman Lacy PhD, Phone: [phone] PERFORMED BY: [facility] [address] [place] [address] PATHOLOGIST [employer] SPOTTER WAYLON SAUNDERS M.D. Performed By: #### C BC ####[address]#### ACTH ####[facility] , Alanine aminotransferase [En zymatic activity/volume] in Serum or PlasmaOrdered By: Sly Benson on 03-05-2023 ALT [Catalytic activity/Vol] 22 U/L Normal 7-52 [facility] Comment on above: Order Comment: STAT BUN/CREAT FOR CT PER CHAGO IN CC DRAW 02/23/23 Performed By: #### C MP, TSH3, LDH, T4F ####[address] Albumin [Mass/volume] in Ser um or Plasma by Bromocresol green (BCG) dye binding methoOrdered By: Sly Benson on 03-05-2023 Albumin BCG dye [Mass/Vol] 4.1 g/dL 3.5-5.7 [facility] Alkaline phosphatase [Enzyma tic activity/volume] in Serum or PlasmaOrdered By: Sly Benson on 03-05-2023 ALP [Catalytic activity/Vol] 106 U/L High 34-104 [facility] Comment on above: Order Comment: STAT BUN/CREAT FOR CT PER CHAGO IN CC DRAW 02/23/23 Performed By: #### C MP, TSH3, LDH, T4F ####[address] Aspartate aminotransferase [ Enzymatic activity/volume] in Serum or PlasmaOrdered By: Sly Benson on 03-05-2023 AST [Catalytic activity/Vol] 23 U/L Normal 13-39 [facility] Comment on above: Order Comment: STAT BUN/CREAT FOR CT PER CHAGO IN CC DRAW 02/23/23 Performed By: #### C MP, TSH3, LDH, T4F ####[address] Automated basophil %Ordered By: Sly Benson on 03-05-2023 Basophils/100 WBC (Bld) 0.8 % Normal . [facility] Comment on above: Performed By: #### C BC ####[place] [address] [place]#### ACTH ####[facility] , Automated basophil countOrde red By: Sly Benson on 03-05-2023 Basophils (Bld) [#/Vol] 0.0 10*3/uL Normal 0.0-0.2 [facility] Comment on above: Result Comment: PERF ORMED BY: [facility] [address] [place] [address] PATHOLOGIST [employer] SPOT[employer] WAYLON SAUNDERS M.D. Performed By: #### C BC ####[place] [address] [place]#### ACTH ####[facility] , Automated blood monocyte cou ntOrdered By: Sly Benson on 03-05-2023 Monocytes (Bld) [#/Vol] 0.5 10*3/uL Normal 0.0-0.8 [facility] Comment on above: Performed By: #### C BC ####[place] [address] [place]#### ACTH ####[facility] , Automated eosinophil %Ordere d By: Sly Benson on 03-05-2023 Eosinophils/100 WBC (Bld) 1.7 % Normal . [facility] Comment on above: Performed By: #### C BC ####[place] [address] [place]#### ACTH ####[facility] , Automated eosinophil countOr dered By: Sly Benson on 03-05-2023 Eosinophils (Bld) [#/Vol] 0.1 10*3/uL Normal 0.0-0.45 [facility] Comment on above: Performed By: #### C BC ####[place] [address] [place]#### ACTH ####[facility] , Automated monocyte %Ordered By: Sly Benson on 03-05-2023 Monocytes/100 WBC (Bld) 8.4 % Normal . [facility] Comment on above: Performed By: #### C BC ####[place] [id number]#### ACTH ####[facility] , Automated neutrophil %Ordere d By: Sly Benson on 03-05-2023 Neutrophils/100 WBC (Bld) 66.0 % Normal . [facility] Comment on above: Performed By: #### C BC ####[place] [id number]#### ACTH ####[facility] , Bilirubin.total [Mass/volume ] in Serum or PlasmaOrdered By: Sly Benson on 03-05-2023 Bilirubin [Mass/Vol] 0.6 mg/dL Normal 0.3-1.0 [facility] Comment on above: Order Comment: STAT BUN/CREAT FOR CT PER CHAGO IN CC DRAW 02/23/23 Performed By: #### C MP, TSH3, LDH, T4F ####[address] abdomen pelvis w conon CT abdomen pelvis w con [facility] [place] [address] CT Scan Report Signed Patient: Theresa Luu MR#: [id number] 322 : 1945 Acct:[id number] Age/Sex: 77 / F ADM Date: 03/05/23 Loc: Room: Type: [facility] RCR Attending Dr: Sly Benson II DO Copies to: Sly Benson II, DO Ordering Provider: Sly Benson II, DO Date of Service: 03/05/23 CT/CT abdomen pelvis w con: surveilance ([id number]) CT/CT chest w con: surveilance CT CHEST, [...] Monroe Jr., D.OWilbert03/05/2023 3:12 PM Dictation Location: [place] [address] Transcribed By: [facility] 03/05/23 1512 Dictated By: Sylvain Monroe Jr, DO 03/05/23 1504 Signed By: 03/05/23 1512 Normal [facility] Calcium [Mass/volume] in Ser um or PlasmaOrdered By: Sly Benson on 03-05-2023 Calcium [Mass/Vol] 9.4 mg/dL Normal 8.6-10.3 [facility] Comment on above: Order Comment: STAT BUN/CREAT FOR CT PER CHAGO IN CC DRAW 02/23/23 Performed By: #### C MP, TSH3, LDH, T4F ####[address] Carbon dioxide, total [Moles /volume] in Serum or PlasmaOrdered By: Sly Benson on 03-05-2023 CO2 [Moles/Vol] 28.0 mmol/L Normal 21.0-31.0 [facility] Comment on above: Order Comment: STAT BUN/CREAT FOR CT PER CHAGO IN CC DRAW 02/23/23 Performed By: #### C MP, TSH3, LDH, T4F ####[address] Chloride [Moles/volume] in S mellissa or PlasmaOrdered By: Sly Benson on 03-05-2023 Chloride [Moles/Vol] 104 mmol/L Normal 98-107 [facility] Comment on above: Order Comment: STAT BUN/CREAT FOR CT PER CHAGO IN CC DRAW 02/23/23 Performed By: #### C MP, TSH3, LDH, T4F ####[address] Complete Blood Count Auto Di ffon 03-05-2023 Mean Corpuscular HGB Conc 34.3 g/dL Normal 32.0-35.0 [facility] Comment on above: Performed By: #### C BC ####[address]#### ACTH ####[facility] , NRBC% 0.0 /100{WBC} Normal 0-0.5 [facility] Comment on above: Performed By: #### C BC ####[address]#### ACTH ####[facility] , Comprehensive Metabolic Pane eileen 03-05-2023 Albumin [Mass/Vol] 4.1 g/dL Normal 3.5-5.7 [facility] Comment on above: Order Comment: STAT BUN/CREAT FOR CT PER CHAGO IN CC DRAW 02/23/23 Performed By: #### C MP, TSH3, LDH, T4F ####[place] [id number] [facility] Creatinine Clr Calc Pharmacy 54.20 Normal [facility] Comment on above: Order Comment: STAT BUN/CREAT FOR CT PER CHAGO IN CC DRAW 02/23/23 Performed By: #### C MP, TSH3, LDH, T4F ####[address] GFR/1.73 sq M.predicted MDRD (S/P/Bld) [Vol rate/Area] mL/min/{1.73_m2} Normal [facility] Comment on above: Order Comment: STAT BUN/CREAT FOR CT PER CHAGO IN CC DRAW 02/23/23 Performed By: #### C MP, TSH3, LDH, T4F ####[place] [id number] [facility] Creatinine [Mass/volume] in Serum or PlasmaOrdered By: Sly Benson on 03-05-2023 Creatinine [Mass/Vol] 0.91 mg/dL Normal 0.60-1.20 [facility] Comment on above: Order Comment: STAT BUN/CREAT FOR CT PER CHAGO IN CC DRAW 02/23/23 Performed By: #### C MP, TSH3, LDH, T4F ####[place] [id number] [facility] Erythrocyte distribution wid th [Ratio] by Automated countOrdered By: Sly Benson on 03-05-2023 Erythrocyte distribution width (RBC) [Ratio] 14.3 % Normal 11.9-15.3 [facility] Comment on above: Performed By: #### C BC ####[place] [id number] [place]#### ACTH ####[facility] , Erythrocytes [#/volume] in B lood by Automated countOrdered By: Sly Benson on 03-05-2023 RBC (Bld) [#/Vol] 4.51 10*6/uL Normal 3.60-5.00 [facility] Comment on above: Performed By: #### C BC ####[facility]#### ACTH ####[facility] , Glucose [Mass/volume] in Ser um or PlasmaOrdered By: Sly Benson on 03-05-2023 Glucose [Mass/Vol] 102 mg/dL High 70-100 [facility] Comment on above: ADA recommended refe rence rangeRandom Glucose Reference Range is dependent on time and content of last meal. Glucose of more than 200 mg/dL in a nonstressed, ambulatory subject supports the diagnosis of Diabetes Mellitus. Order Comment: STAT BUN/CREAT FOR CT PER CHAGO IN CC DRAW 02/23/23 Result Comment: Anthony om Glucose Reference Range is dependent on time and content of last meal. Glucose of more than 200 mg/dL in a nonstressed, ambulatory subject supports the diagnosis of Diabetes Mellitus. ADA recommended reference range Performed By: #### C MP, TSH3, LDH, T4F ####[facility] Hematocrit [Volume Fraction] of Blood by Automated countOrdered By: Sly Benson on 03-05-2023 Hematocrit (Bld) [Volume fraction] 39.8 % Normal 34.0-46.4 [facility] Comment on above: Performed By: #### C BC ####[facility]#### ACTH ####[facility] , Hemoglobin [Mass/volume] in BloodOrdered By: Sly Benson on 03-05-2023 Hemoglobin (Bld) [Mass/Vol] 13.6 g/dL Normal 11.8-15.4 [facility] Comment on above: Performed By: #### C BC ####[facility]#### ACTH ####[facility] , LDH Lactate Dehydrogenaseon 03-05-2023 LDH Lactate Dehydrogenase 197 U/L Normal 140-271 [facility] Comment on above: Order Comment: STAT BUN/CREAT FOR CT PER CHAGO IN CC DRAW 02/23/23 Performed By: #### C MP, TSH3, LDH, T4F ####[place] [id number] Lactate dehydrogenase [Enzym atic activity/volume] in Serum or Plasma by Lactate to pyOrdered By: Sly Benson on 03-05-2023 LDH Lactate to pyruvate reaction [Catalytic activity/Vol] 197 U/L 140-271 [facility] Leukocytes [#/volume] correc margot for nucleated erythrocytes in Blood by Automated counOrdered By: Sly Benson on 03-05-2023 WBC corrected for nucl RBC Auto (Bld) [#/Vol] 6.3 10*3/uL 3.8-11.6 [facility] Leukocytes [#/volume] in Blo od by Automated countOrdered By: Sly Benson on 03-05-2023 WBC (Bld) [#/Vol] 6.3 10*3/uL Normal 3.8-11.6 [facility] Comment on above: Performed By: #### C BC ####[place] [address] [place]#### ACTH ####[facility] , Lymphocytes [#/volume] in Bl ood by Automated countOrdered By: lSy Benson on 03-05-2023 Lymphocytes (Bld) [#/Vol] 1.4 10*3/uL Normal 1.00-4.8 [facility] Comment on above: Performed By: #### C BC ####[place] [address] [place]#### ACTH ####[facility] , Lymphocytes/100 leukocytes i n Blood by Automated countOrdered By: Sly Benson on 03-05-2023 Lymphocytes/100 WBC (Bld) 23.1 % Normal . [facility] Comment on above: Performed By: #### C BC ####[place] [address] [place]#### ACTH ####[facility] , MCH [Entitic mass] by Automa margot countOrdered By: Sly Benson on 03-05-2023 MCH (RBC) [Entitic mass] 30.2 pg Normal 24.7-34.3 [facility] Comment on above: Performed By: #### C BC ####[place] [address] [place]#### ACTH ####[facility] , MCHC Auto (RBC) [Mass/Vol]Or dered By: Sly Benson on 03-05-2023 MCHC (RBC) [Mass/Vol] 34.3 g/dL 32.0-35.0 [facility] MCV [Entitic volume] by Auto mated countOrdered By: Sly Bneson on 03-05-2023 MCV (RBC) [Entitic vol] 88.1 fL Normal 80-100 [facility] Comment on above: Performed By: #### C BC ####[place] [address] [place]#### ACTH ####[facility] , Neutrophils [#/volume] in Bl ood by Automated countOrdered By: Sly Benson on 03-05-2023 Neutrophils (Bld) [#/Vol] 4.1 10*3/uL Normal 1.8-7.7 [facility] Comment on above: Performed By: #### C BC ####[place] [address] [place]#### ACTH ####[facility] , No Panel InformationOrdered By: Sly Benson on 03-05-2023 Adrenocorticotropic Hormone 25.6 pg/mL 7.2-63.3 [facility] Comment on above: ACTH reference inter jamel for samples collected between 7 and10 AM.Performed at: - [facility] [address] [id number] Director: Coleman Lacy PhD, Phone: [phone] Estimated GFR (CKD-EPI) > 60.0 mL/Min [facility] Creatinine Clearance (Chem 54.20 [facility] Nucleated erythrocytes [Pres ence] in Blood by Automated countOrdered By: Sly Benson on 03-05-2023 Nucleated RBC Auto Ql (Bld) 0.0 /100{WBC} 0-0.5 [facility] Platelet mean volume [Entiti c volume] in Blood by Automated countOrdered By: Sly Benson on 03-05-2023 Platelet mean volume (Bld) [Entitic vol] 7.2 fL Normal 6.3-10.7 [facility] Comment on above: Performed By: #### C BC ####[address]#### ACTH ####[facility] , Platelets [#/volume] in Bloo d by Automated countOrdered By: Sly Benson on 03-05-2023 Platelets (Bld) [#/Vol] 190 10*3/uL Normal 150-450 [facility] Comment on above: Performed By: #### C BC ####[address]#### ACTH ####[facility] , Potassium [Moles/volume] in Serum or PlasmaOrdered By: Sly Benson on 03-05-2023 Potassium [Moles/Vol] 3.8 mmol/L Normal 3.5-5.1 [facility] Comment on above: Order Comment: STAT BUN/CREAT FOR CT PER [place]O IN CC DRAW 02/23/23 Performed By: #### C MP, TSH3, LDH, T4F ####[address] Protein [Mass/volume] in Ser um or PlasmaOrdered By: Sly Benson on 03-05-2023 Protein [Mass/Vol] 6.9 g/dL Normal 6.4-8.9 [facility] Comment on above: Order Comment: STAT BUN/CREAT FOR CT PER CHAGO IN CC DRAW 02/23/23 Performed By: #### C MP, TSH3, LDH, T4F ####[address] Serum globulin measurement b y calculation (mass/volume)Ordered By: Sly Benson on 03-05-2023 Globulin (S) [Mass/Vol] 2.8 g/dL Normal [facility] Comment on above: Order Comment: STAT BUN/CREAT FOR CT PER [place]AGO IN CC DRAW 02/23/23 Performed By: #### C MP, TSH3, LDH, T4F ####[address] Serum or plasma albumin/glob ulin mass ratioOrdered By: Sly Benson on 03-05-2023 Albumin/Globulin [Mass ratio] 1.5 {ratio} Normal [facility] Comment on above: Order Comment: STAT BUN/CREAT FOR CT PER [place]O IN CC DRAW 02/23/23 Performed By: #### C MP, TSH3, LDH, T4F ####[address] Serum or plasma anion gap de terminationOrdered By: lSy Benson on 03-05-2023 Anion gap [Moles/Vol] 12.8 mmol/L Normal 6.0-15.0 [facility] Comment on above: Order Comment: STAT BUN/CREAT FOR CT PER [place]AGO IN CC DRAW 02/23/23 Performed By: #### C MP, TSH3, LDH, T4F ####[address] Sodium [Moles/volume] in Ser um or PlasmaOrdered By: Sly Benson on 03-05-2023 Sodium [Moles/Vol] 141 mmol/L Normal 136-145 [facility] Comment on above: Order Comment: STAT BUN/CREAT FOR CT PER CHAGO IN CC DRAW 02/23/23 Performed By: #### C MP, TSH3, LDH, T4F ####[place] [id number] [place] [id number] [facility] Thyrotropin [Units/volume] i n Serum or PlasmaOrdered By: Sly Benson on 03-05-2023 TSH Qn 2.49 m[IU]/L Normal 0.45-5.33 [facility] Comment on above: Order Comment: STAT BUN/CREAT FOR CT PER CHAGO IN CC DRAW 02/23/23 Result Comment: PERF ORMED BY: [facility] [address] [place] [id number] PATHOLOGIST CAR SPOTTER WAYLON SAUNDERS M.D. Performed By: #### C MP, TSH3, LDH, T4F ####[place] [id number] [facility] Thyroxine (T4) free [Mass/vo lume] in Serum or PlasmaOrdered By: Sly Benson on 03-05-2023 Free T4 [Mass/Vol] 0.94 ng/dL Normal 0.61-1.12 [facility] Comment on above: Order Comment: STAT BUN/CREAT FOR CT PER CHAGO IN CC DRAW 02/23/23 Performed By: #### C MP, TSH3, LDH, T4F ####[place] [id number] [facility] Urea nitrogen [Mass/volume] in Serum or PlasmaOrdered By: Sly Benson on 03-05-2023 Urea nitrogen [Mass/Vol] 17 mg/dL Normal 7- [facility] Comment on above: Order Comment: STAT BUN/CREAT FOR CT PER [place]AG[place] IN CC DRAW 02/23/23 Performed By: #### C MP, TSH3, LDH, T4F ####[place] [id number] [facility] Alanine aminotransferase [En zymatic activity/volume] in Serum or PlasmaOrdered By: Sly Benson on 12-30-2022 ALT [Catalytic activity/Vol] 24 U/L 7- [facility] Albumin [Mass/volume] in Ser um or Plasma by Bromocresol green (BCG) dye binding methoOrdered By: Sly Benson on 12-30-2022 Albumin BCG dye [Mass/Vol] 4.0 g/dL 3.5-5.7 [facility] Alkaline phosphatase [Enzyma tic activity/volume] in Serum or PlasmaOrdered By: Sly Benson on 12-30-2022 ALP [Catalytic activity/Vol] 108 U/L 34-104 [facility] Aspartate aminotransferase [ Enzymatic activity/volume] in Serum or PlasmaOrdered By: Sly Benson on 12-30-2022 AST [Catalytic activity/Vol] 22 U/L 13-39 [facility] Basophils Auto (Bld) [#/Vol] Ordered By: Sly Benson on 12-30-2022 Basophils (Bld) [#/Vol] 0.0 10*3/uL 0.0-0.2 [facility] Basophils/100 WBC Auto (Bld) Ordered By: Sly Benson on 12-30-2022 Basophils/100 WBC (Bld) 0.5 % . [facility] Bilirubin.total [Mass/volume ] in Serum or PlasmaOrdered By: Sly Benson on 12-30-2022 Bilirubin [Mass/Vol] 0.5 mg/dL 0.3-1.0 [facility] Calcium [Mass/volume] in Ser um or PlasmaOrdered By: Sly Benson on 12-30-2022 Calcium [Mass/Vol] 9.1 mg/dL 8.6-10.3 [facility] Carbon dioxide, total [Moles /volume] in Serum or PlasmaOrdered By: Sly Benson on 12-30-2022 CO2 [Moles/Vol] 30.7 mmol/L 21.0-31.0 [facility] Chloride [Moles/volume] in S mellissa or PlasmaOrdered By: Sly Benson on 12-30-2022 Chloride [Moles/Vol] 104 mmol/L 98-107 [facility] Creatinine [Mass/volume] in Serum or PlasmaOrdered By: Sly Benson on 12-30-2022 Creatinine [Mass/Vol] 0.92 mg/dL 0.60-1.20 [facility] Eosinophils Auto (Bld) [#/Vo l]Ordered By: Sly Benson on 12-30-2022 Eosinophils (Bld) [#/Vol] 0.1 10*3/uL 0.0-0.45 [facility] Eosinophils/100 WBC Auto (Bl d)Ordered By: Sly Benson on 12-30-2022 Eosinophils/100 WBC (Bld) 1.5 % . [facility] Erythrocyte distribution wid th Auto (RBC) [Ratio]Ordered By: Sly Benson on 12-30-2022 Erythrocyte distribution width (RBC) [Ratio] 13.6 % 11.9-15.3 [facility] Globulin Calc (S) [Mass/Vol] Ordered By: Sly Benson on 12-30-2022 Globulin (S) [Mass/Vol] 2.5 g/dL [facility] Glucose [Mass/volume] in Ser um or PlasmaOrdered By: Sly Benson on 12-30-2022 Glucose [Mass/Vol] 102 mg/dL 70-100 [facility] Comment on above: ADA recommended refe rence rangeRandom Glucose Reference Range is dependent on time and content of last meal. Glucose of more than 200 mg/dL in a nonstressed, ambulatory subject supports the diagnosis of Diabetes Mellitus. Hematocrit Auto (Bld) [Volum e fraction]Ordered By: Sly Benson on 12-30-2022 Hematocrit (Bld) [Volume fraction] 39.0 % 34.0-46.4 [facility] Hemoglobin [Mass/volume] in BloodOrdered By: Sly Benson on 12-30-2022 Hemoglobin (Bld) [Mass/Vol] 13.4 g/dL 11.8-15.4 [facility] Lactate dehydrogenase [Enzym atic activity/volume] in Serum or Plasma by Lactate to pyOrdered By: Sly Benson on 12-30-2022 LDH Lactate to pyruvate reaction [Catalytic activity/Vol] 211 U/L 140-271 [facility] Comment on above: Hemolysis is present at a level that could interfere with the result. Leukocytes [#/volume] correc margot for nucleated erythrocytes in Blood by Automated counOrdered By: Sly Benson on 12-30-2022 WBC corrected for nucl RBC Auto (Bld) [#/Vol] 6.8 10*3/uL 3.8-11.6 [facility] Lymphocytes Auto (Bld) [#/Vo l]Ordered By: Sly Benson on 12-30-2022 Lymphocytes (Bld) [#/Vol] 1.6 10*3/uL 1.00-4.8 [facility] Lymphocytes/100 WBC Auto (Bl d)Ordered By: Sly Benson on 12-30-2022 Lymphocytes/100 WBC (Bld) 24.0 % . [facility] MCH Auto (RBC) [Entitic mass ]Ordered By: Sly Benson on 12-30-2022 MCH (RBC) [Entitic mass] 30.0 pg 24.7-34.3 [facility] MCHC Auto (RBC) [Mass/Vol]Or dered By: Sly Benson on 12-30-2022 MCHC (RBC) [Mass/Vol] 34.3 g/dL 32.0-35.0 [facility] MCV Auto (RBC) [Entitic vol] Ordered By: Sly Benson on 12-30-2022 MCV (RBC) [Entitic vol] 87.4 fL 80-100 [facility] Monocytes Auto (Bld) [#/Vol] Ordered By: Sly Benson on 12-30-2022 Monocytes (Bld) [#/Vol] 0.6 10*3/uL 0.0-0.8 [facility] Monocytes/100 WBC Auto (Bld) Ordered By: Sly Benson on 12-30-2022 Monocytes/100 WBC (Bld) 9.0 % . [facility] Neutrophils Auto (Bld) [#/Vo l]Ordered By: Sly Benson on 12-30-2022 Neutrophils (Bld) [#/Vol] 4.4 10*3/uL 1.8-7.7 [facility] Neutrophils/100 WBC Auto (Bl d)Ordered By: Sly Benson on 12-30-2022 Neutrophils/100 WBC (Bld) 65.0 % . [facility] No Panel InformationOrdered By: Sly Benson on 12-30-2022 Adrenocorticotropic Hormone 28.9 pg/mL 7.2-63.3 [facility] Comment on above: ACTH reference inter jamel for samples collected between 7 and10 AM.Performed at: [facility] [place] [id number] Director: Coleman Lacy PhD, Phone: [phone] Estimated GFR (CKD-EPI) > 60.0 mL/Min [facility] Creatinine Clearance (Chem 54.88 [facility] Nucleated erythrocytes [Pres ence] in Blood by Automated countOrdered By: Sly Benson on 12-30-2022 Nucleated RBC Auto Ql (Bld) 0.0 /100{WBC} 0-0.5 [facility] Platelet mean volume Auto (B ld) [Entitic vol]Ordered By: Sly Benson on 12-30-2022 Platelet mean volume (Bld) [Entitic vol] 7.4 fL 6.3-10.7 [facility] Platelets Auto (Bld) [#/Vol] Ordered By: lSy Benson on 12-30-2022 Platelets (Bld) [#/Vol] 171 10*3/uL 150-450 [facility] Potassium [Moles/volume] in Serum or PlasmaOrdered By: Sly Benson on 12-30-2022 Potassium [Moles/Vol] See comment 3.5-5.1 [facility] Comment on above: Specimen hemolyzed, redraw requested --- 12/30/22 1036 ---K previously reported as: 3.9 mmol/LHemolysis is present at a level that could interfere with the result. Protein [Mass/volume] in Ser um or PlasmaOrdered By: Sly Benson on 12-30-2022 Protein [Mass/Vol] 6.5 g/dL 6.4-8.9 [facility] RBC Auto (Bld) [#/Vol]Ordere d By: Sly Benson on 12-30-2022 RBC (Bld) [#/Vol] 4.46 10*6/uL 3.60-5.00 [facility] Serum or plasma albumin/glob ulin mass ratioOrdered By: Sly Benson on 12-30-2022 Albumin/Globulin [Mass ratio] 1.6 {ratio} [facility] Serum or plasma anion gap de terminationOrdered By: Sly Benson on 12-30-2022 Anion gap [Moles/Vol] TNP [facility] Comment on above: Test not performed-- - 12/30/22 1038 ---Gap previously reported as: 10.2 mEq/L Sodium [Moles/volume] in Ser um or PlasmaOrdered By: Sly Benson on 12-30-2022 Sodium [Moles/Vol] 141 mmol/L 136-145 [facility] Thyrotropin [Units/volume] i n Serum or PlasmaOrdered By: Sly Benson on 12-30-2022 TSH Qn 2.31 m[IU]/L 0.45-5.33 [facility] Thyroxine (T4) free [Mass/vo lume] in Serum or PlasmaOrdered By: Sly Benson on 12-30-2022 Free T4 [Mass/Vol] 1.03 ng/dL 0.61-1.12 [facility] Urea nitrogen [Mass/volume] in Serum or PlasmaOrdered By: Sly Benson on 12-30-2022 Urea nitrogen [Mass/Vol] 17 mg/dL 7 [facility] WBC Auto (Bld) [#/Vol]Ordere d By: Sly Benson on 12-30-2022 WBC (Bld) [#/Vol] 6.8 10*3/uL 3.8-11.6 [facility] Alanine aminotransferase [En zymatic activity/volume] in Serum or PlasmaOrdered By: Sly Benson on 10-31-2022 ALT [Catalytic activity/Vol] 22 U/L 7 [facility] Albumin [Mass/volume] in Ser um or Plasma by Bromocresol green (BCG) dye binding methoOrdered By: Sly Benson on 10-31-2022 Albumin BCG dye [Mass/Vol] 4.0 g/dL 3.5-5.7 [facility] Alkaline phosphatase [Enzyma tic activity/volume] in Serum or PlasmaOrdered By: Sly Benson on 10-31-2022 ALP [Catalytic activity/Vol] 98 U/L 34-104 [facility] Aspartate aminotransferase [ Enzymatic activity/volume] in Serum or PlasmaOrdered By: Sly Benson on 10-31-2022 AST [Catalytic activity/Vol] 28 U/L 13-39 [facility] Basophils Auto (Bld) [#/Vol] Ordered By: Sly Benson on 10-31-2022 Basophils (Bld) [#/Vol] 0.1 10*3/uL 0.0-0.2 [facility] Basophils/100 WBC Auto (Bld) Ordered By: Sly Benson on 10-31-2022 Basophils/100 WBC (Bld) 0.9 % . [facility] Bilirubin.total [Mass/volume ] in Serum or PlasmaOrdered By: Sly Benson on 10-31-2022 Bilirubin [Mass/Vol] 0.7 mg/dL 0.3-1.0 [facility] Calcium [Mass/volume] in Ser um or PlasmaOrdered By: Sly Benson on 10-31-2022 Calcium [Mass/Vol] 8.9 mg/dL 8.6-10.3 [facility] Carbon dioxide, total [Moles /volume] in Serum or PlasmaOrdered By: Sly Benson on 10-31-2022 CO2 [Moles/Vol] 28.6 mmol/L 21.0-31.0 [facility] Chloride [Moles/volume] in S mellissa or PlasmaOrdered By: Sly Benson on 10-31-2022 Chloride [Moles/Vol] 104 mmol/L 98-107 [facility] Creatinine [Mass/volume] in Serum or PlasmaOrdered By: Sly Benson on 10-31-2022 Creatinine [Mass/Vol] 0.93 mg/dL 0.60-1.20 [facility] Eosinophils Auto (Bld) [#/Vo l]Ordered By: Sly Benson on 10-31-2022 Eosinophils (Bld) [#/Vol] 0.1 10*3/uL 0.0-0.45 [facility] Eosinophils/100 WBC Auto (Bl d)Ordered By: Sly Benson on 10-31-2022 Eosinophils/100 WBC (Bld) 1.8 % . [facility] Erythrocyte distribution wid th Auto (RBC) [Ratio]Ordered By: Sly Benson on 10-31-2022 Erythrocyte distribution width (RBC) [Ratio] 15.0 % 11.9-15.3 [facility] Globulin Calc (S) [Mass/Vol] Ordered By: Sly Benson on 10-31-2022 Globulin (S) [Mass/Vol] 2.9 g/dL [facility] Glucose [Mass/volume] in Ser um or PlasmaOrdered By: Sly Benson on 10-31-2022 Glucose [Mass/Vol] 100 mg/dL 70-100 [facility] Comment on above: ADA recommended refe rence rangeRandom Glucose Reference Range is dependent on time and content of last meal. Glucose of more than 200 mg/dL in a nonstressed, ambulatory subject supports the diagnosis of Diabetes Mellitus. Hematocrit Auto (Bld) [Volum e fraction]Ordered By: Sly Benson on 10-31-2022 Hematocrit (Bld) [Volume fraction] 41.3 % 34.0-46.4 [facility] Hemoglobin [Mass/volume] in BloodOrdered By: Sly Benson on 10-31-2022 Hemoglobin (Bld) [Mass/Vol] 14.0 g/dL 11.8-15.4 [facility] Lactate dehydrogenase [Enzym atic activity/volume] in Serum or Plasma by Lactate to pyOrdered By: Sly Benson on 10-31-2022 LDH Lactate to pyruvate reaction [Catalytic activity/Vol] 226 U/L 140-271 [facility] Leukocytes [#/volume] correc margot for nucleated erythrocytes in Blood by Automated counOrdered By: Sly Benson on 10-31-2022 WBC corrected for nucl RBC Auto (Bld) [#/Vol] 6.8 10*3/uL 3.8-11.6 [facility] Lymphocytes Auto (Bld) [#/Vo l]Ordered By: Sly Benson on 10-31-2022 Lymphocytes (Bld) [#/Vol] 1.8 10*3/uL 1.00-4.8 [facility] Lymphocytes/100 WBC Auto (Bl d)Ordered By: Sly Benson on 10-31-2022 Lymphocytes/100 WBC (Bld) 26.5 % . [facility] MCH Auto (RBC) [Entitic mass ]Ordered By: Sly Benson on 10-31-2022 MCH (RBC) [Entitic mass] 29.7 pg 24.7-34.3 [facility] MCHC Auto (RBC) [Mass/Vol]Or dered By: Sly Benson on 10-31-2022 MCHC (RBC) [Mass/Vol] 33.8 g/dL 32.0-35.0 [facility] MCV Auto (RBC) [Entitic vol] Ordered By: Sly Benson on 10-31-2022 MCV (RBC) [Entitic vol] 87.8 fL 80-100 [facility] Monocytes Auto (Bld) [#/Vol] Ordered By: Sly Benson on 10-31-2022 Monocytes (Bld) [#/Vol] 0.8 10*3/uL 0.0-0.8 [facility] Monocytes/100 WBC Auto (Bld) Ordered By: Sly Benson on 10-31-2022 Monocytes/100 WBC (Bld) 11.2 % . [facility] Neutrophils Auto (Bld) [#/Vo l]Ordered By: Sly Benson on 10-31-2022 Neutrophils (Bld) [#/Vol] 4.0 10*3/uL 1.8-7.7 [facility] Neutrophils/100 WBC Auto (Bl d)Ordered By: Sly Benson on 10-31-2022 Neutrophils/100 WBC (Bld) 59.6 % . [facility] No Panel InformationOrdered By: Sly Benson on 10-31-2022 Adrenocorticotropic Hormone 35.2 pg/mL 7.2-63.3 [facility] Comment on above: ACTH reference inter jamel for samples collected between 7 and10 AM.Performed at: [place] [id number] [place], [place] [id number] Director: Coleman Lacy PhD, Phone: [phone] Estimated GFR (CKD-EPI) > 60.0 mL/Min [facility] Creatinine Clearance (Chem 54.88 [facility] Nucleated erythrocytes [Pres ence] in Blood by Automated countOrdered By: Sly Benson on 10-31-2022 Nucleated RBC Auto Ql (Bld) 0.0 /100{WBC} 0-0.5 [facility] Platelet mean volume Auto (B ld) [Entitic vol]Ordered By: Syl Benson on 10-31-2022 Platelet mean volume (Bld) [Entitic vol] 7.1 fL 6.3-10.7 [facility] Platelets Auto (Bld) [#/Vol] Ordered By: Sly Benson on 10-31-2022 Platelets (Bld) [#/Vol] 201 10*3/uL 150-450 [facility] Potassium [Moles/volume] in Serum or PlasmaOrdered By: Sly Benson on 10-31-2022 Potassium [Moles/Vol] 3.8 mmol/L 3.5-5.1 [facility] Protein [Mass/volume] in Ser um or PlasmaOrdered By: Sly Benson on 10-31-2022 Protein [Mass/Vol] 6.9 g/dL 6.4-8.9 [facility] RBC Auto (Bld) [#/Vol]Ordere d By: Sly Benson on 10-31-2022 RBC (Bld) [#/Vol] 4.70 10*6/uL 3.60-5.00 [facility] Serum or plasma albumin/glob ulin mass ratioOrdered By: Sly Benson on 10-31-2022 Albumin/Globulin [Mass ratio] 1.4 {ratio} [facility] Serum or plasma anion gap de terminationOrdered By: Sly Benson on 10-31-2022 Anion gap [Moles/Vol] 12.2 mmol/L 6.0-15.0 [facility] Sodium [Moles/volume] in Ser um or PlasmaOrdered By: Sly Benson on 10-31-2022 Sodium [Moles/Vol] 141 mmol/L 136-145 [facility] Thyrotropin [Units/volume] i n Serum or PlasmaOrdered By: Sly Benson on 10-31-2022 TSH Qn 2.49 m[IU]/L 0.45-5.33 [facility] Thyroxine (T4) free [Mass/vo lume] in Serum or PlasmaOrdered By: Sly Benson on 10-31-2022 Free T4 [Mass/Vol] 1.02 ng/dL 0.61-1.12 [facility] Urea nitrogen [Mass/volume] in Serum or PlasmaOrdered By: Sly Benson on 10-31-2022 Urea nitrogen [Mass/Vol] 19 mg/dL 02-03 [facility] WBC Auto (Bld) [#/Vol]Ordere d By: Sly Benson on 10-31-2022 WBC (Bld) [#/Vol] 6.8 10*3/uL 3.8-11.6 [facility] ACTH, PLASMAon 10-04-2022 ACTH, Plasma 48.7 pg/mL Normal 7.2-63.3 [facility] Comment on above: Result Comment: ACTH reference interval for samples collected between 7 and 10 AM. Performed By: #### A CTHP #### [facility] [address] [place] [address] Dr. Alesia Meyers CBC AUTO DIFFon 10-03-2022 BASO # 0.1 103/ul Normal 0.0-0.1 [facility] Comment on above: Performed By: #### T SH, CMP, LDH #### [facility] [address] [place] [address] [address] Alesia Meyers Basophils/100 WBC (Bld) 1.2 % Normal 0.2-2.0 [facility] Comment on above: Performed By: #### T SH, CMP, LDH #### [facility] [address] [place] [address] [address] Alesia Meyers EO # 0.2 103/ul Normal 0.0-0.7 [facility] Comment on above: Performed By: #### T SH, CMP, LDH #### [facility] [address] [address] [address] Alesia Meyers Eosinophils/100 WBC (Bld) 2.5 % Normal 0.9-7.0 [facility] Comment on above: Performed By: #### T SH, CMP, LDH #### [facility] [address] [place] [address] Dr. Alesia Meyers Erythrocyte distribution width (RBC) [Ratio] 13.9 % Normal 11.0-15.0 [facility] Comment on above: Performed By: #### T SH, CMP, LDH #### [facility] [address] [place] [address] Dr. Alesia Meyers Hematocrit (Bld) [Volume fraction] 41.9 % Normal 36.0-48.0 [facility] Comment on above: Performed By: #### T SH, CMP, LDH #### [facility] [address] [place] [address] Dr. Alesia Meyers Hemoglobin (Bld) [Mass/Vol] 13.6 g/dL Normal 12.0-16.0 [facility] Comment on above: Performed By: #### T SH, CMP, LDH #### [facility] [address] [place] [address] Dr. Alesia Meyers IG # 0.04 10e3/ul Critically high 0.00-0.03 [facility] Comment on above: Performed By: #### T SH, CMP, LDH #### [facility] [address] [place] [address] Dr. Alesia Meyers IG % 0.7 % Critically high 0.0-0.5 [facility] Comment on above: Performed By: #### T SH, CMP, LDH #### [facility] [address] [place] [address] Dr. Alesia Meyers LYMPH # 2.1 103/ul Normal 1.2-3.8 [facility] Comment on above: Performed By: #### T SH, CMP, LDH #### [facility] [address] [place] [address] Dr. Alesia Meyers Lymphocytes/100 WBC (Bld) 35.5 % Normal 20.5-60.0 [facility] Comment on above: Performed By: #### T SH, CMP, LDH #### [facility] [address] [place] [address] Dr. Alesia Meyers MANUAL DIFF REQ NO Normal [facility] Comment on above: Performed By: #### T SH, CMP, LDH #### [facility] [address] [place] [address] Dr. Alesia Meyers MCH (RBC) [Entitic mass] 28.9 pg Normal 26.7-34.0 [facility] Comment on above: Performed By: #### T SH, CMP, LDH #### [facility] [address] [place] [address] Dr. Alesia Meyers MCHC (RBC) [Mass/Vol] 32.5 g/dL Normal 29.9-35.2 [facility] Comment on above: Performed By: #### T SH, CMP, LDH #### [facility] [address] [place] [address] Dr. Alesia Meyers MCV (RBC) [Entitic vol] 89.1 fL Normal 81.0-99.0 [facility] Comment on above: Performed By: #### T SH, CMP, LDH #### [facility] [address] [place] [address] Dr. Alesia Meyers MONO # 0.6 103/ul Normal 0.3-0.8 [facility] Comment on above: Performed By: #### T SH, CMP, LDH #### [facility] [address] [place] [address] Dr. Alesia Meyers Monocytes/100 WBC (Bld) 10.8 % Normal 1.7-12.0 [facility] Comment on above: Performed By: #### T SH, CMP, LDH #### [facility] [address] [place] [address] Dr. Alesia Meyers NEUT # 2.9 103/ul Normal 1.4-6.5 [facility] Comment on above: Performed By: #### T SH, CMP, LDH #### [facility] [address] [address] [address] Alesia Meyers Neutrophils/100 WBC (Bld) 49.3 % Normal 43.0-75.0 [facility] Comment on above: Performed By: #### T SH, CMP, LDH #### [facility] [address] [address] [address] Alesia Meyers Platelet mean volume (Bld) [Entitic vol] 8.8 fL Critically low 9.5-13.5 [facility] Comment on above: Performed By: #### T SH, CMP, LDH #### [facility] [address] [address] [address] Alesia Meyers PLT 226 103/ul Normal 150-450 [facility] Comment on above: Performed By: #### T SH, CMP, LDH #### [facility] [address] [place] [address] Dr. Alesia Meyers RBC 4.70 106/ul Normal 4.20-5.40 [facility] Comment on above: Performed By: #### T SH, CMP, LDH #### [facility] [address] [address] [address] Alesia Meyers WBC 5.9 103/ul Normal 4.0-11.0 [facility] Comment on above: Performed By: #### T SH, CMP, LDH #### [facility] [address] [place] [address] Dr. Alesia Meyers FREE T4on 10-03-2022 Free T4 [Mass/Vol] 1.02 ng/dL Normal 0.76-1.46 [facility] Comment on above: Performed By: #### F T4 #### [facility] [address] [place] [address] Dr. Alesia Meyers LDHon 10-03-2022 LDH 212 U/L Normal 81-234 [facility] Comment on above: Performed By: #### F T4 #### [facility] [address] [place] [address] Dr. Alesia Meyers PROF 14(COMP METB)on 03-24-2 023 Albumin [Mass/Vol] 3.5 g/dL Normal 3.4-5.0 [facility] Comment on above: Performed By: #### F T4 #### [facility] [address] [place] [address] Dr. Alesia Meyers Albumin/Globulin [Mass ratio] 1.1 {ratio} Normal [facility] Comment on above: Performed By: #### F T4 #### [facility] [address] [place] [address] Dr. Alesia Meyers ALP [Catalytic activity/Vol] 120 U/L Critically high 46-116 [facility] Comment on above: Performed By: #### F T4 #### [facility] [address] [place] [address] Dr. Alesia Meyers ALT [Catalytic activity/Vol] 37 U/L Normal 14-59 [facility] Comment on above: Performed By: #### F T4 #### [facility] [address] [place] [address] Dr. Alesia Meyers Anion gap [Moles/Vol] 11.4 mmol/L Normal [facility] Comment on above: Performed By: #### F T4 #### [facility] [address] [place] [address] Dr. Alesia Meyers AST [Catalytic activity/Vol] 28 U/L Normal 15-37 [facility] Comment on above: Performed By: #### F T4 #### [facility] [address] [place] [address] Dr. Alesia Meyers Bilirubin [Mass/Vol] 0.4 mg/dL Normal 0.2-1.0 [facility] Comment on above: Performed By: #### F T4 #### [facility] [address] [place] [address] Dr. Alesia Meyers Calcium [Mass/Vol] 9.2 mg/dL Normal 8.5-10.1 [facility] Comment on above: Performed By: #### F T4 #### [facility] [address] [place] [address] Dr. Alesia Meyers Chloride [Moles/Vol] 105 mmol/L Normal 98-107 [facility] Comment on above: Performed By: #### F T4 #### [facility] [address] [address] [address] Alesia Meyers CO2 [Moles/Vol] 30.4 mmol/L Normal 21.0-32.0 [facility] Comment on above: Performed By: #### F T4 #### [facility] [address] [address] [address] Alesia Meyers Creatinine [Mass/Vol] 0.88 mg/dL Normal 0.55-1.02 [facility] Comment on above: Performed By: #### F T4 #### [facility] [address] [address] [address] Alesia Meyers EGFR-AF KAZAKH >60 Normal >=60 [facility] Comment on above: Performed By: #### F T4 #### [facility] [address] [place] [address] Dr. Alesia Meyers EGFR-NON AF KAZAKH >60 Normal >=60 [facility] Comment on above: Performed By: #### F T4 #### [facility] [address] [place] [address] Dr. Alesia Meyers Globulin (S) [Mass/Vol] 3.3 g/dL Normal [facility] Comment on above: Performed By: #### F T4 #### [facility] [address] [place] [address] Dr. Alesia Meyers Glucose [Mass/Vol] 104 mg/dL Normal 74-106 [facility] Comment on above: Performed By: #### F T4 #### [facility] [address] [place] [address] Dr. Alesia Meyers Potassium [Moles/Vol] 3.8 mmol/L Normal 3.5-5.1 [facility] Comment on above: Performed By: #### F T4 #### [facility] [address] [place] [address] Dr. Alesia Meyers Protein [Mass/Vol] 6.8 g/dL Normal 6.4-8.2 [facility] Comment on above: Performed By: #### F T4 #### [facility] [address] [place] [address] Dr. Alesia Meyers Sodium [Moles/Vol] 143 mmol/L Normal 136-145 [facility] Comment on above: Performed By: #### F T4 #### [facility] [address] [place] [address] Dr. Alesia Meyers Urea nitrogen [Mass/Vol] 19.0 mg/dL Critically high 7.0-18.0 [facility] Comment on above: Performed By: #### F T4 #### [facility] [address] [place] [address] Dr. Alesia Meyers Urea nitrogen/Creatinine [Mass ratio] 21.6 mg/mg Normal [facility] Comment on above: Performed By: #### F T4 #### [facility] [address] [place] [address] Dr. Alesia Meyers TSHon 10-03-2022 TSH 3.819 uIU/mL Critically high 0.358-3.74 0 [facility] Comment on above: Performed By: #### F T4 #### [facility] [address] [place] [address] Dr. Alesia Meyers ACTH, PLASMAon 09-06-2022 ACTH, Plasma 6.3 pg/mL Critically low 7.2-63.3 [facility] Comment on above: Result Comment: ACTH reference interval for samples collected between 7 and 10 AM. Performed By: #### T SH, CMP, LDH #### [facility] [address] [place] [address] Dr. Alesia Meyers CBC AUTO DIFFon 09-05-2022 BASO # 0.0 103/ul Normal 0.0-0.1 [facility] Comment on above: Performed By: #### T SH, CMP, LDH #### [facility] [address] [place] [address] Dr. Alesia Meyers Basophils/100 WBC (Bld) 0.3 % Normal 0.2-2.0 [facility] Comment on above: Performed By: #### T SH, CMP, LDH #### [facility] [address] [place] [address] Dr. Alesia Meyers EO # 0.1 103/ul Normal 0.0-0.7 [facility] Comment on above: Performed By: #### T SH, CMP, LDH #### [facility] [address] [place] [address] Dr. Alesia Meyers Eosinophils/100 WBC (Bld) 0.6 % Critically low 0.9-7.0 [facility] Comment on above: Performed By: #### T SH, CMP, LDH #### [facility] [address] [place] [address] Dr. Alesia Meyers Erythrocyte distribution width (RBC) [Ratio] 14.4 % Normal 11.0-15.0 [facility] Comment on above: Performed By: #### T SH, CMP, LDH #### [facility] [address] [place] [address] Dr. Alesia Meyers Hematocrit (Bld) [Volume fraction] 41.6 % Normal 36.0-48.0 [facility] Comment on above: Performed By: #### T SH, CMP, LDH #### [facility] [address] [place] [address] Dr. Alesia Meyers Hemoglobin (Bld) [Mass/Vol] 13.7 g/dL Normal 12.0-16.0 [facility] Comment on above: Performed By: #### T SH, CMP, LDH #### [facility] [address] [place] [address] Dr. Alesia Meyers IG # 0.14 10e3/ul Critically high 0.00-0.03 [facility] Comment on above: Performed By: #### T SH, CMP, LDH #### [facility] [address] [place] [address] Dr. Alesia Meyers IG % 1.6 % Critically high 0.0-0.5 [facility] Comment on above: Performed By: #### T SH, CMP, LDH #### [facility] [address] [place] [address] Dr. Alesia Meyers LYMPH # 2.7 103/ul Normal 1.2-3.8 [facility] Comment on above: Performed By: #### T SH, CMP, LDH #### [facility] [address] [place] [address] Dr. Alesia Meyers Lymphocytes/100 WBC (Bld) 30.2 % Normal 20.5-60.0 [facility] Comment on above: Performed By: #### T SH, CMP, LDH #### [facility] [address] [place] [address] Dr. Alesia Meyers MANUAL DIFF REQ NO Normal [facility] Comment on above: Performed By: #### T SH, CMP, LDH #### [facility] [address] [place] [address] Dr. Alesia Meyers MCH (RBC) [Entitic mass] 28.7 pg Normal 26.7-34.0 [facility] Comment on above: Performed By: #### T SH, CMP, LDH #### [facility] [address] [place] [address] Dr. Alesia Meyers MCHC (RBC) [Mass/Vol] 32.9 g/dL Normal 29.9-35.2 [facility] Comment on above: Performed By: #### T SH, CMP, LDH #### [facility] [address] [place] [address] Dr. Alesia Meyers MCV (RBC) [Entitic vol] 87.2 fL Normal 81.0-99.0 [facility] Comment on above: Performed By: #### T SH, CMP, LDH #### [facility] [address] [place] [address] Dr. Alesia Meyers MONO # 1.0 103/ul Critically high 0.3-0.8 [facility] Comment on above: Performed By: #### T SH, CMP, LDH #### [facility] [address] [place] [address] Dr. Alesia Meyers Monocytes/100 WBC (Bld) 10.8 % Normal 1.7-12.0 [facility] Comment on above: Performed By: #### T SH, CMP, LDH #### [facility] [address] [place] [address] Dr. Alesia Meyers NEUT # 5.0 103/ul Normal 1.4-6.5 [facility] Comment on above: Performed By: #### T SH, CMP, LDH #### [facility] [address] [place] [address] Dr. Alesia Meyers Neutrophils/100 WBC (Bld) 56.5 % Normal 43.0-75.0 [facility] Comment on above: Performed By: #### T SH, CMP, LDH #### [facility] [address] [place] [address] Dr. Alesia Meyers Platelet mean volume (Bld) [Entitic vol] 9.1 fL Critically low 9.5-13.5 [facility] Comment on above: Performed By: #### T SH, CMP, LDH #### [facility] [address] [place] [address] Dr. Alesia Meyers PLT 217 103/ul Normal 150-450 [facility] Comment on above: Performed By: #### T SH, CMP, LDH #### [facility] [address] [place] [address] Dr. Alesia Meyers RBC 4.77 106/ul Normal 4.20-5.40 [facility] Comment on above: Performed By: #### T SH, CMP, LDH #### [facility] [address] [place] [address] Dr. Alesia Meyers WBC 8.8 103/ul Normal 4.0-11.0 [facility] Comment on above: Performed By: #### T SH, CMP, LDH #### [facility] [address] [place] [address] Dr. Alesia Meyers FREE T4on 09-05-2022 Free T4 [Mass/Vol] 1.22 ng/dL Normal 0.76-1.46 [facility] Comment on above: Performed By: #### F T4 #### [facility] [address] [place] [address] Dr. Alesia Meyers LDHon 09-05-2022 LDH 212 U/L Normal 81-234 [facility] Comment on above: Performed By: #### T SH, CMP, LDH #### [facility] [address] [place] [address] Dr. Alesia Meyers PROF 14(COMP METB)on 023 Albumin [Mass/Vol] 3.4 g/dL Normal 3.4-5.0 [facility] Comment on above: Performed By: #### T SH, CMP, LDH #### [facility] [address] [address] [address] Alesia Meyers Albumin/Globulin [Mass ratio] 1.1 {ratio} Normal [facility] Comment on above: Performed By: #### T SH, CMP, LDH #### [facility] [address] [address] [address] Alesia Meyers ALP [Catalytic activity/Vol] 101 U/L Normal 46-116 [facility] Comment on above: Performed By: #### T SH, CMP, LDH #### [facility] [address] [address] [address] Alesia Meyers ALT [Catalytic activity/Vol] 40 U/L Normal 14-59 [facility] Comment on above: Performed By: #### T SH, CMP, LDH #### [facility] [address] [address] [address] Alesia Meyers Anion gap [Moles/Vol] 10.7 mmol/L Normal [facility] Comment on above: Performed By: #### T SH, CMP, LDH #### [facility] [address] [address] [address] Alesia Meyers AST [Catalytic activity/Vol] 25 U/L Normal 15-37 [facility] Comment on above: Performed By: #### T SH, CMP, LDH #### [facility] [address] [address] [address] Alesia Meyers Bilirubin [Mass/Vol] 0.4 mg/dL Normal 0.2-1.0 [facility] Comment on above: Performed By: #### T SH, CMP, LDH #### [facility] [address] [address] [address] Alesia Meyers Calcium [Mass/Vol] 8.7 mg/dL Normal 8.5-10.1 [facility] Comment on above: Performed By: #### T SH, CMP, LDH #### [facility] [address] [address] [address] Alesia Meyers Chloride [Moles/Vol] 105 mmol/L Normal 98-107 [facility] Comment on above: Performed By: #### T SH, CMP, LDH #### [facility] [address] [address] [address] Alesia Meyers CO2 [Moles/Vol] 30.0 mmol/L Normal 21.0-32.0 [facility] Comment on above: Performed By: #### T SH, CMP, LDH #### [facility] [address] [address] [address] Alesia Meyers Creatinine [Mass/Vol] 0.83 mg/dL Normal 0.55-1.02 [facility] Comment on above: Performed By: #### T SH, CMP, LDH #### [facility] [address] [place] [address] Dr. Alesia Meyers EGFR-AF KAZAKH >60 Normal >=60 [facility] Comment on above: Performed By: #### T SH, CMP, LDH #### [facility] [address] [place] [address] Dr. Alesia Meyers EGFR-NON AF KAZAKH >60 Normal >=60 [facility] Comment on above: Performed By: #### T SH, CMP, LDH #### [facility] [address] [place] [address] Dr. Alesia Meyers Globulin (S) [Mass/Vol] 3.2 g/dL Normal [facility] Comment on above: Performed By: #### T SH, CMP, LDH #### [facility] [address] [address] [address] Alesia Meyers Glucose [Mass/Vol] 96 mg/dL Normal 74-106 [facility] Comment on above: Performed By: #### T SH, CMP, LDH #### [facility] [address] [address] [address] Alesia Meyers Potassium [Moles/Vol] 3.7 mmol/L Normal 3.5-5.1 [facility] Comment on above: Performed By: #### T SH, CMP, LDH #### [facility] [address] [address] [address] Alesia Meyers Protein [Mass/Vol] 6.6 g/dL Normal 6.4-8.2 [facility] Comment on above: Performed By: #### T SH, CMP, LDH #### [facility] [address] [address] [address] Alesia Meyers Sodium [Moles/Vol] 142 mmol/L Normal 136-145 [facility] Comment on above: Performed By: #### T SH, CMP, LDH #### [facility] [address] [address] [address] Alesia Meyers Urea nitrogen [Mass/Vol] 29.0 mg/dL Critically high 7.0-18.0 [facility] Comment on above: Performed By: #### T SH, CMP, LDH #### [facility] [address] [address] [address] Alesia Meyers Urea nitrogen/Creatinine [Mass ratio] 34.9 mg/mg Normal [facility] Comment on above: Performed By: #### T SH, CMP, LDH #### [facility] [address] [place] [address] Dr. Alesia Meyers TSHon 09-05-2022 TSH 3.372 uIU/mL Normal 0.358-3.74 0 [facility] Comment on above: Performed By: #### T SH, CMP, LDH #### [facility] [address] [place] [address] Dr. Alesia Meyers Albumin [Mass/volume] in Ser um or PlasmaOrdered By: Sly Benson on 08-08-2022 Albumin [Mass/Vol] 4.0 g/dL 3.2-5.5 [facility] Basophils Auto (Bld) [#/Vol] Ordered By: Sly Benson on 08-08-2022 Basophils (Bld) [#/Vol] 0.1 10*3/uL 0.0-0.2 [facility] Basophils/100 WBC Auto (Bld) Ordered By: Sly Benson on 08-08-2022 Basophils/100 WBC (Bld) 0.7 % . [facility] Creatinine and Glomerular fi ltration rate.predicted panel (S/P/Bld)Ordered By: Sly Benson on 08-08-2022 Creatinine [Mass/Vol] 0.93 mg/dL 0.44-1.03 [facility] Direct bilirubin measurement Ordered By: Sly Benson on 08-08-2022 Bilirubin.direct [Mass/Vol] mg/dL 0.0-0.4 [facility] Eosinophils Auto (Bld) [#/Vo l]Ordered By: Sly Benson on 08-08-2022 Eosinophils (Bld) [#/Vol] 0.2 10*3/uL 0.0-0.45 [facility] Eosinophils/100 WBC Auto (Bl d)Ordered By: Sly Benson on 08-08-2022 Eosinophils/100 WBC (Bld) 2.1 % . [facility] Erythrocyte distribution wid th Auto (RBC) [Ratio]Ordered By: Sly Benson on 08-08-2022 Erythrocyte distribution width (RBC) [Ratio] 14.7 % 11.9-15.3 [facility] Estimated glomerular filtrat ion rate (GFR) non- AmericanOrdered By: Sly Benson on 08-08-2022 GFR/1.73 sq M.predicted among non-blacks MDRD (S/P/Bld) [Vol rate/Area] 59 mL/Min [facility] Globulin Calc (S) [Mass/Vol] Ordered By: Sly Benson on 08-08-2022 Globulin (S) [Mass/Vol] 3.1 g/dL [facility] Hematocrit Auto (Bld) [Volum e fraction]Ordered By: Sly Benson on 08-08-2022 Hematocrit (Bld) [Volume fraction] 42.9 % 34.0-46.4 [facility] Hemoglobin [Mass/volume] in BloodOrdered By: Sly Benson on 08-08-2022 Hemoglobin (Bld) [Mass/Vol] 14.4 g/dL 11.8-15.4 [facility] - Chemistry and C hemistry - challengeOrdered By: Sly Benson on 08-08-2022 Lipase [Catalytic activity/Vol] 33.0 U/L 22-51 [facility] Lactate dehydrogenase measur ement (enzymatic activity/volume)Ordered By: Sly Benson on 08-08-2022 LDH (Unsp spec) [Catalytic activity/Vol] 209 U/L 45-190 [facility] Leukocytes [#/volume] correc margot for nucleated erythrocytes in Blood by Automated counOrdered By: Sly Benson on 08-08-2022 WBC corrected for nucl RBC Auto (Bld) [#/Vol] 7.6 10*3/uL 3.8-11.6 [facility] Lymphocytes Auto (Bld) [#/Vo l]Ordered By: Sly Benson on 08-08-2022 Lymphocytes (Bld) [#/Vol] 2.2 10*3/uL 1.00-4.8 [facility] Lymphocytes/100 WBC Auto (Bl d)Ordered By: Sly Benson on 08-08-2022 Lymphocytes/100 WBC (Bld) 29.6 % . [facility] MCH Auto (RBC) [Entitic mass ]Ordered By: Sly Benson on 08-08-2022 MCH (RBC) [Entitic mass] 29.0 pg 24.7-34.3 [facility] MCHC Auto (RBC) [Mass/Vol]Or dered By: Sly Benson on 08-08-2022 MCHC (RBC) [Mass/Vol] 33.6 g/dL 32.0-35.0 [facility] MCV Auto (RBC) [Entitic vol] Ordered By: Sly Benson on 08-08-2022 MCV (RBC) [Entitic vol] 86.1 fL 80-100 [facility] Monocytes Auto (Bld) [#/Vol] Ordered By: Sly Benson on 08-08-2022 Monocytes (Bld) [#/Vol] 0.7 10*3/uL 0.0-0.8 [facility] Monocytes/100 WBC Auto (Bld) Ordered By: Sly Benson on 08-08-2022 Monocytes/100 WBC (Bld) 9.0 % . [facility] Neutrophils Auto (Bld) [#/Vo l]Ordered By: Sly Benson on 08-08-2022 Neutrophils (Bld) [#/Vol] 4.4 10*3/uL 1.8-7.7 [facility] Neutrophils/100 WBC Auto (Bl d)Ordered By: Sly Benson on 08-08-2022 Neutrophils/100 WBC (Bld) 58.6 % . [facility] No Panel InformationOrdered By: Sly Benson on 08-08-2022 Adrenocorticotropic Hormone 35.2 pg/mL 7.2-63.3 [facility] Comment on above: ACTH reference inter jamel for samples collected between 7 and10 AM.Performed at: [facility] [address] [id number] Director: Coleman Lacy PhD, Phone: [phone] Estimated GFR () > 60 mL/Min [facility] Comment on above: GFR estimated refere nce range: According to KDOQI guidelines, <60 ml/min/1.73m2 is sufficient to diagnose a patient with chronic kidney disease. Pharmacy Creatinine Clearance (Chem 55.32 [facility] Nucleated erythrocytes [Pres ence] in Blood by Automated countOrdered By: Sly Benson on 08-08-2022 Nucleated RBC Auto Ql (Bld) 0.1 /100{WBC} 0-0.5 [facility] Platelet mean volume Auto (B ld) [Entitic vol]Ordered By: Sly Benson on 08-08-2022 Platelet mean volume (Bld) [Entitic vol] 7.5 fL 6.3-10.7 [facility] Platelets Auto (Bld) [#/Vol] Ordered By: Sly Benson on 08-08-2022 Platelets (Bld) [#/Vol] 216 10*3/uL 150-450 [facility] Protein [Mass/volume] in Ser um or PlasmaOrdered By: Sly Benson on 08-08-2022 Protein [Mass/Vol] 7.1 g/dL 6.1-7.9 [facility] RBC Auto (Bld) [#/Vol]Ordere d By: Sly Benson on 08-08-2022 RBC (Bld) [#/Vol] 4.98 10*6/uL 3.60-5.00 [facility] Random cortisol measurementO rdered By: Sly Benson on 08-08-2022 Cortisol [Mass/Vol] 11.8 ug/dL [facility] Comment on above: Reference range: AM 6 - 24 ug/dl PM <10 ug/dl Serum or plasma alanine castro otransferase measurement without P-5'-P (enzymatic activiOrdered By: Sly Benson on 08-08-2022 ALT No additional P-5'-P [Catalytic activity/Vol] 32 U/L 10-60 [facility] Serum or plasma albumin/glob ulin mass ratioOrdered By: Sly Benson on 08-08-2022 Albumin/Globulin [Mass ratio] 1.3 {ratio} [facility] Serum or plasma alkaline halle sphatase measurement (enzymatic activity/volume)Ordered By: Sly Benson on 08-08-2022 ALP [Catalytic activity/Vol] 99 U/L 32-92 [facility] Serum or plasma anion gap de terminationOrdered By: Sly Benson on 08-08-2022 Anion gap [Moles/Vol] 11.2 mmol/L 6.0-15.0 [facility] Serum or plasma aspartate am inotransferase measurement (enzymatic activity/volume)Ordered By: Sly Benson on 08-08-2022 AST [Catalytic activity/Vol] 34 U/L 10-42 [facility] Serum or plasma calcium diamond urement (mass/volume)Ordered By: Sly Benson on 08-08-2022 Calcium [Mass/Vol] 9.3 mg/dL 8.2-10.2 [facility] Serum or plasma chloride zora surement (moles/volume)Ordered By: Sly Benson on 08-08-2022 Chloride [Moles/Vol] 102 mmol/L 95-114 [facility] Serum or plasma glucose diamond urement (mass/volume)Ordered By: Sly Benson on 08-08-2022 Glucose [Mass/Vol] 101 mg/dL 70-100 [facility] Comment on above: ADA recommended refe rence rangeRandom Glucose Reference Range is dependent on time and content of last meal. Glucose of more than 200 mg/dL in a nonstressed, ambulatory subject supports the diagnosis of Diabetes Mellitus. Serum or plasma non-glucuron idated bilirubin measurement (mass/volume)Ordered By: Sly Benson on 08-08-2022 Bilirubin.indirect [Mass/Vol] TNP [facility] Comment on above: Test not performed Serum or plasma potassium me asurement (moles/volume)Ordered By: Sly Benson on 08-08-2022 Potassium [Moles/Vol] 3.3 mmol/L 3.5-5.1 [facility] Serum or plasma sodium measu rement (moles/volume)Ordered By: Sly Benson on 08-08-2022 Sodium [Moles/Vol] 139 mmol/L 136-146 [facility] Serum or plasma total biliru bin measurement (mass/volume)Ordered By: Sly Benson on 08-08-2022 Bilirubin [Mass/Vol] 0.7 mg/dL 0.3-1.2 [facility] Serum or plasma total carbon dioxide measurement (moles/volume)Ordered By: Sly Benson on 08-08-2022 CO2 [Moles/Vol] 29.1 mmol/L 22.0-30.0 [facility] Serum or plasma urea nitroge n measurement (mass/volume)Ordered By: Sly Benson on 08-08-2022 Urea nitrogen [Mass/Vol] 18 mg/dL 9- [facility] TSH DL <= 0.005 mIU/L QnOrde red By: Sly Benson on 08-08-2022 TSH Qn 2.80 m[IU]/L 0.45-5.33 [facility] Thyroxine (T4) free [Mass/vo lume] in Serum or PlasmaOrdered By: Sly Benson on 08-08-2022 Free T4 [Mass/Vol] 0.99 ng/dL 0.61-1.12 [facility] WBC Auto (Bld) [#/Vol]Ordere d By: Sly Benson on 08-08-2022 WBC (Bld) [#/Vol] 7.6 10*3/uL 3.8-11.6 [facility] ACTH, PLASMAon 07-22-2022 ACTH, Plasma 29.5 pg/mL Normal 7.2-63.3 [facility] Comment on above: Result Comment: ACTH reference interval for samples collected between 7 and 10 AM. Performed By: #### A CTHP #### [facility] [address] [address] [address] Alesia Meyers CORTISOLon 07-22-2022 Cortisol 10.0 ug/dL Normal [facility] Comment on above: Result Comment: Melvin isol AM 6.2 - 19.4 Cortisol PM 2.3 - 11.9 Performed By: #### T SH, CMP, LDH #### [facility] [address] [address] [address] Alesia Meyers CBC AUTO DIFFon 07-21-2022 BASO # 0.0 103/ul Normal 0.0-0.1 [facility] Comment on above: Performed By: #### T SH, CMP, LDH #### [facility] [address] [address] [address] Alesia Meyers Basophils/100 WBC (Bld) 0.6 % Normal 0.2-2.0 [facility] Comment on above: Performed By: #### T SH, CMP, LDH #### [facility] [address] [address] [address] Alesia Meyers EO # 0.1 103/ul Normal 0.0-0.7 [facility] Comment on above: Performed By: #### T SH, CMP, LDH #### [facility] [address] [address] [address] Alesia Meyers Eosinophils/100 WBC (Bld) 1.8 % Normal 0.9-7.0 [facility] Comment on above: Performed By: #### T SH, CMP, LDH #### [facility] [address] [address] [address] Alesia Meyers Erythrocyte distribution width (RBC) [Ratio] 13.2 % Normal 11.0-15.0 [facility] Comment on above: Performed By: #### T SH, CMP, LDH #### [facility] [address] [place] [address] Dr. Alesia Meyers Hematocrit (Bld) [Volume fraction] 40.4 % Normal 36.0-48.0 [facility] Comment on above: Performed By: #### T SH, CMP, LDH #### [facility] [address] [place] [address] Dr. Alesia Meyers Hemoglobin (Bld) [Mass/Vol] 14.1 g/dL Normal 12.0-16.0 [facility] Comment on above: Performed By: #### T SH, CMP, LDH #### [facility] [address] [place] [address] Dr. Alesia Meyers IG # 0.03 10e3/ul Normal 0.00-0.03 [facility] Comment on above: Performed By: #### T SH, CMP, LDH #### [facility] [address] [place] [address] Dr. Alesia Meyers IG % 0.4 % Normal 0.0-0.5 [facility] Comment on above: Performed By: #### T SH, CMP, LDH #### [facility] [address] [place] [address] Dr. Alesia Meyers LYMPH # 1.9 103/ul Normal 1.2-3.8 [facility] Comment on above: Performed By: #### T SH, CMP, LDH #### [facility] [address] [place] [address] Dr. Alesia Meyers Lymphocytes/100 WBC (Bld) 27.5 % Normal 20.5-60.0 [facility] Comment on above: Performed By: #### T SH, CMP, LDH #### [facility] [address] [place] [address] Dr. Alesia Meyers MANUAL DIFF REQ NO Normal [facility] Comment on above: Performed By: #### T SH, CMP, LDH #### [facility] [address] [place] [address] Dr. Alesia Meyers MCH (RBC) [Entitic mass] 28.4 pg Normal 26.7-34.0 [facility] Comment on above: Performed By: #### T SH, CMP, LDH #### [facility] [address] [place] [address] Dr. Alesia Meyers MCHC (RBC) [Mass/Vol] 34.9 g/dL Normal 29.9-35.2 [facility] Comment on above: Performed By: #### T SH, CMP, LDH #### [facility] [address] [place] [address] Dr. Alesia Meyers MCV (RBC) [Entitic vol] 81.5 fL Normal 81.0-99.0 [facility] Comment on above: Performed By: #### T SH, CMP, LDH #### [facility] [address] [place] [address] Dr. Alesia Meyers MONO # 0.3 103/ul Normal 0.3-0.8 [facility] Comment on above: Performed By: #### T SH, CMP, LDH #### [facility] [address] [place] [address] Dr. Alesia Meyers Monocytes/100 WBC (Bld) 4.9 % Normal 1.7-12.0 [facility] Comment on above: Performed By: #### T SH, CMP, LDH #### [facility] [address] [place] [address] Dr. Alesia Meyers NEUT # 4.4 103/ul Normal 1.4-6.5 [facility] Comment on above: Performed By: #### T SH, CMP, LDH #### [facility] [address] [place] [address] Dr. Alesia Meyers Neutrophils/100 WBC (Bld) 64.8 % Normal 43.0-75.0 [facility] Comment on above: Performed By: #### T SH, CMP, LDH #### [facility] [address] [place] [address] Dr. Alesia Meyers Platelet mean volume (Bld) [Entitic vol] 8.8 fL Critically low 9.5-13.5 [facility] Comment on above: Performed By: #### T SH, CMP, LDH #### [facility] [address] [place] [address] Dr. Alesia Meyers PLT 214 103/ul Normal 150-450 [facility] Comment on above: Performed By: #### T SH, CMP, LDH #### [facility] [address] [place] [address] Dr. Alesia Meyers RBC 4.96 106/ul Normal 4.20-5.40 [facility] Comment on above: Performed By: #### T SH, CMP, LDH #### [facility] [address] [place] [address] Dr. Alesia Meyers WBC 6.8 103/ul Normal 4.0-11.0 [facility] Comment on above: Performed By: #### T SH, CMP, LDH #### [facility] [address] [place] [address] Dr. Alesia Meyers FREE T4on 07-21-2022 Free T4 [Mass/Vol] 1.06 ng/dL Normal 0.76-1.46 [facility] Comment on above: Performed By: #### T SH, CMP, LDH #### [facility] [address] [place] [address] Dr. Alesia Meyers LDHon 07-21-2022 LDH 243 U/L Critically high 81-234 [facility] Comment on above: Performed By: #### T SH, CMP, LDH #### [facility] [address] [place] [address] Dr. Alesia Meyers LIPASEon 07-21-2022 Lipase [Catalytic activity/Vol] 73.0 U/L Normal 73.0-393.0 [facility] Comment on above: Performed By: #### T SH, CMP, LDH #### [facility] [address] [place] [address] Dr. Alesia Meyers LIVER PROFILEon 07-21-2022 Albumin [Mass/Vol] 3.5 g/dL Normal 3.4-5.0 [facility] Comment on above: Performed By: #### T SH, CMP, LDH #### [facility] [address] [place] [address] Dr. Alesia Meyers Albumin/Globulin [Mass ratio] 0.9 {ratio} Normal [facility] Comment on above: Performed By: #### T SH, CMP, LDH #### [facility] [address] [place] [address] Dr. Alesia Meyers ALP [Catalytic activity/Vol] 130 U/L Critically high 46-116 [facility] Comment on above: Performed By: #### T SH, CMP, LDH #### [facility] [address] [place] [address] Dr. Alesia Meyers ALT [Catalytic activity/Vol] 35 U/L Normal 14-59 [facility] Comment on above: Performed By: #### T SH, CMP, LDH #### [facility] [address] [place] [address] Dr. Alesia Meyers AST [Catalytic activity/Vol] 37 U/L Normal 15-37 [facility] Comment on above: Performed By: #### T SH, CMP, LDH #### [facility] [address] [place] [address] Dr. Alesia Meyers BILI, CONJUGATED 0.1 mg/dL Normal 0.0-0.2 [facility] Comment on above: Performed By: #### T SH, CMP, LDH #### [facility] [address] [place] [address] Dr. Alesia Meyers Bilirubin [Mass/Vol] 0.4 mg/dL Normal 0.2-1.0 [facility] Comment on above: Performed By: #### T SH, CMP, LDH #### [facility] [address] [place] [address] Dr. Alesia Meyers Globulin (S) [Mass/Vol] 3.8 g/dL Normal [facility] Comment on above: Performed By: #### T SH, CMP, LDH #### [facility] [address] [place] [address] Dr. Alesia Meyers Protein [Mass/Vol] 7.3 g/dL Normal 6.4-8.2 [facility] Comment on above: Performed By: #### T SH, CMP, LDH #### [facility] [address] [address] [address] Alesia Meyers PROF CHEM 8 (BAS METB)on Anion gap [Moles/Vol] 12.1 mmol/L Normal [facility] Comment on above: Performed By: #### T SH, CMP, LDH #### [facility] [address] [address] [address] Alesia Meyers Calcium [Mass/Vol] 9.2 mg/dL Normal 8.5-10.1 [facility] Comment on above: Performed By: #### T SH, CMP, LDH #### [facility] [address] [address] [address] Alesia Meyers Chloride [Moles/Vol] 102 mmol/L Normal 98-107 [facility] Comment on above: Performed By: #### T SH, CMP, LDH #### [facility] [address] [place] [address] Dr. Alesia Meyers CO2 [Moles/Vol] 30.5 mmol/L Normal 21.0-32.0 [facility] Comment on above: Performed By: #### T SH, CMP, LDH #### [facility] [address] [place] [address] Dr. Alesia Meyers Creatinine [Mass/Vol] 0.87 mg/dL Normal 0.55-1.02 [facility] Comment on above: Performed By: #### T SH, CMP, LDH #### [facility] [address] [place] [address] Dr. Alesia Meyers EGFR-AF KAZAKH >60 Normal >=60 [facility] Comment on above: Performed By: #### T SH, CMP, LDH #### [facility] [address] [place] [address] Dr. Alesia Meyers EGFR-NON AF KAZAKH >60 Normal >=60 [facility] Comment on above: Performed By: #### T SH, CMP, LDH #### [facility] [address] [place] [address] Dr. Alesia Meyers Glucose [Mass/Vol] 178 mg/dL Critically high 74-106 [facility] Comment on above: Performed By: #### T SH, CMP, LDH #### [facility] [address] [address] [address] Alesia Meyers Potassium [Moles/Vol] 3.6 mmol/L Normal 3.5-5.1 [facility] Comment on above: Performed By: #### T SH, CMP, LDH #### [facility] [address] [place] [address] Dr. Alesia Meyers Sodium [Moles/Vol] 141 mmol/L Normal 136-145 [facility] Comment on above: Performed By: #### T SH, CMP, LDH #### [facility] [address] [place] [address] Dr. Alesia Meyers Urea nitrogen [Mass/Vol] 16.0 mg/dL Normal 7.0-18.0 [facility] Comment on above: Performed By: #### T SH, CMP, LDH #### [facility] [address] [place] [address] Dr. Alesia Meyers Urea nitrogen/Creatinine [Mass ratio] 18.4 mg/mg Normal [facility] Comment on above: Performed By: #### T SH, CMP, LDH #### [facility] [address] [place] [address] Dr. Alesia Meyers TSHon 07-21-2022 TSH 2.383 uIU/mL Normal 0.358-3.74 0 [facility] Comment on above: Performed By: #### T SH, CMP, LDH #### [facility] [address] [place] [address] Dr. Alesia Meyers ACTH, PLASMAon 06-21-2022 ACTH, Plasma 30.4 pg/mL Normal 7.2-63.3 [facility] Comment on above: Result Comment: ACTH reference interval for samples collected between 7 and 10 AM. Performed By: #### T SH, CMP, LDH #### [facility] [address] [place] [address] Dr. Alesia Meyers CORTISOLon 06-21-2022 Cortisol 16.9 ug/dL Normal [facility] Comment on above: Result Comment: Melvin isol AM 6.2 - 19.4 Cortisol PM 2.3 - 11.9 Performed By: #### C ORTISO #### [facility] [address] [place] [address] Dr. Alesia Meyers CBC AUTO DIFFon 06-20-2022 BASO # 0.0 103/ul Normal 0.0-0.1 [facility] Comment on above: Performed By: #### T SH, CMP, LDH #### [facility] [address] [place] [address] Dr. Alesia Meyers Basophils/100 WBC (Bld) 0.5 % Normal 0.2-2.0 [facility] Comment on above: Performed By: #### T SH, CMP, LDH #### [facility] [address] [place] [address] Dr. Alesia Meyers EO # 0.1 103/ul Normal 0.0-0.7 [facility] Comment on above: Performed By: #### T SH, CMP, LDH #### [facility] [address] [place] [address] Dr. Alesia Meyers Eosinophils/100 WBC (Bld) 2.1 % Normal 0.9-7.0 [facility] Comment on above: Performed By: #### T SH, CMP, LDH #### [facility] [address] [place] [address] Dr. Alesia Meyers Erythrocyte distribution width (RBC) [Ratio] 13.3 % Normal 11.0-15.0 [facility] Comment on above: Performed By: #### T SH, CMP, LDH #### [facility] [address] [place] [address] Dr. Alesia Meyers Hematocrit (Bld) [Volume fraction] 40.2 % Normal 36.0-48.0 [facility] Comment on above: Performed By: #### T SH, CMP, LDH #### [facility] [address] [place] [address] Dr. Alesia Meyers Hemoglobin (Bld) [Mass/Vol] 13.5 g/dL Normal 12.0-16.0 [facility] Comment on above: Performed By: #### T SH, CMP, LDH #### [facility] [address] [address] [address] Alesia Meyers IG # 0.02 10e3/ul Normal 0.00-0.03 [facility] Comment on above: Performed By: #### T SH, CMP, LDH #### [facility] [address] [address] [address] Alesia Meyers IG % 0.3 % Normal 0.0-0.5 [facility] Comment on above: Performed By: #### T SH, CMP, LDH #### [facility] [address] [place] [address] Dr. Alesia Meyers LYMPH # 2.3 103/ul Normal 1.2-3.8 [facility] Comment on above: Performed By: #### T SH, CMP, LDH #### [facility] [address] [place] [address] Dr. Alesia Meyers Lymphocytes/100 WBC (Bld) 35.0 % Normal 20.5-60.0 [facility] Comment on above: Performed By: #### T SH, CMP, LDH #### [facility] [address] [place] [address] Dr. Alesia Meyers MANUAL DIFF REQ NO Normal [facility] Comment on above: Performed By: #### T SH, CMP, LDH #### [facility] [address] [place] [address] Dr. Alesia Meyers MCH (RBC) [Entitic mass] 29.3 pg Normal 26.7-34.0 [facility] Comment on above: Performed By: #### T SH, CMP, LDH #### [facility] [address] [place] [address] Dr. Alesia Meyers MCHC (RBC) [Mass/Vol] 33.6 g/dL Normal 29.9-35.2 [facility] Comment on above: Performed By: #### T SH, CMP, LDH #### [facility] [address] [place] [address] Dr. Alesia Meyers MCV (RBC) [Entitic vol] 87.2 fL Normal 81.0-99.0 [facility] Comment on above: Performed By: #### T SH, CMP, LDH #### [facility] [address] [place] [address] Dr. Alesia Meyers MONO # 0.6 103/ul Normal 0.3-0.8 [facility] Comment on above: Performed By: #### T SH, CMP, LDH #### [facility] [address] [place] [address] Dr. Alesia Meyers Monocytes/100 WBC (Bld) 8.8 % Normal 1.7-12.0 [facility] Comment on above: Performed By: #### T SH, CMP, LDH #### [facility] [address] [place] [address] Dr. Alesia Meyers NEUT # 3.5 103/ul Normal 1.4-6.5 [facility] Comment on above: Performed By: #### T SH, CMP, LDH #### [facility] [address] [place] [address] Dr. Alesia Meyers Neutrophils/100 WBC (Bld) 53.3 % Normal 43.0-75.0 [facility] Comment on above: Performed By: #### T SH, CMP, LDH #### [facility] [address] [place] [address] Dr. Alesia Meyers Platelet mean volume (Bld) [Entitic vol] 9.0 fL Critically low 9.5-13.5 [facility] Comment on above: Performed By: #### T SH, CMP, LDH #### [facility] [address] [place] [address] Dr. Alesia Meyers PLT 230 103/ul Normal 150-450 [facility] Comment on above: Performed By: #### T SH, CMP, LDH #### [facility] [address] [place] [address] Dr. Alesia Meyers RBC 4.61 106/ul Normal 4.20-5.40 [facility] Comment on above: Performed By: #### T SH, CMP, LDH #### [facility] [address] [place] [address] Dr. Alesia Meyers WBC 6.6 103/ul Normal 4.0-11.0 [facility] Comment on above: Performed By: #### T SH, CMP, LDH #### [facility] [address] [address] [address] Alesia Meyers FREE T4on 06-20-2022 Free T4 [Mass/Vol] 1.15 ng/dL Normal 0.76-1.46 [facility] Comment on above: Performed By: #### T SH, CMP, LDH #### [facility] [address] [address] [address] Alesia Meyers LDHon 06-20-2022 LDH 224 U/L Normal 81-234 [facility] Comment on above: Performed By: #### T SH, CMP, LDH #### [facility] [address] [place] [address] Dr. Alesia Meyers LIPASEon 06-20-2022 Lipase [Catalytic activity/Vol] 78.0 U/L Normal 73.0-393.0 [facility] Comment on above: Performed By: #### T SH, CMP, LDH #### [facility] [address] [place] [address] Dr. Alesia Meyers LIPID PROFILEon 06-20-2022 CHOL-HDL RATIO NORM SEE BELOW Normal [facility] Comment on above: Result Comment: 3.3 - 4.4 LOW RISK 4.4 - 7.1 AVERAGE RISK 7.1 - 11.0 MODERATE RISK >11.0 HIGH RISK Performed By: #### T SH, CMP, LDH #### [facility] [address] [place] [address] Dr. Alesia Meyers Cholesterol [Mass/Vol] 153 mg/dL Normal <=200 [facility] Comment on above: Performed By: #### T SH, CMP, LDH #### [facility] [address] [place] [address] Dr. Alesia Meyers Cholesterol in HDL [Mass/Vol] 80 mg/dL Critically high 40-60 [facility] Comment on above: Performed By: #### T SH, CMP, LDH #### [facility] [address] [place] [address] Dr. Alesia Meyers Cholesterol in LDL [Mass/Vol] 52.8 mg/dL Normal [facility] Comment on above: Performed By: #### T SH, CMP, LDH #### [facility] [address] [address] [address] Alesia Meyers Cholesterol.total/Chol esterol in HDL [Mass ratio] 1.9 {ratio} Normal [facility] Comment on above: Performed By: #### T SH, CMP, LDH #### [facility] [address] [address] [address] Alesia Meyers HDL NORMAL > or = 60 mg/dl - LO W CARDIOVASCULAR RISK <40 mg/dl - HIGH CARDIOVASCULAR RISK Normal [facility] Comment on above: Performed By: #### T SH, CMP, LDH #### [facility] [address] [place] [address] Dr. Alesia Meyers LDL CALC NORMAL SEE BELOW Normal [facility] Comment on above: Result Comment: <100 mg/dl OPTIMAL 100 - 129 mg/dl NEAR OR ABOVE OPTIMAL 130 - 159 mg/dl BORDERLINE HIGH 160 - 189 mg/dl HIGH >190 mg/dl VERY HIGH Performed By: #### T SH, CMP, LDH #### [facility] [address] [place] [address] Dr. Alesia Meyers Triglyceride [Mass/Vol] 101 mg/dL Normal <=150 [facility] Comment on above: Performed By: #### T SH, CMP, LDH #### [facility] [address] [address] [address] Alesia Meyers VLDL CALC 20.2 mg/dL Normal [facility] Comment on above: Performed By: #### T SH, CMP, LDH #### [facility] [address] [address] [address] Alesia Meyers LIVER PROFILEon 06-20-2022 Albumin [Mass/Vol] 3.5 g/dL Normal 3.4-5.0 [facility] Comment on above: Performed By: #### T SH, CMP, LDH #### [facility] [address] [place] [address] Dr. Alesia Meyers Albumin/Globulin [Mass ratio] 0.9 {ratio} Normal [facility] Comment on above: Performed By: #### T SH, CMP, LDH #### [facility] [address] [place] [address] Dr. Alesia Meyers ALP [Catalytic activity/Vol] 109 U/L Normal 46-116 [facility] Comment on above: Performed By: #### T SH, CMP, LDH #### [facility] [address] [place] [address] Dr. Alesia Meyers ALT [Catalytic activity/Vol] 39 U/L Normal 14-59 [facility] Comment on above: Performed By: #### T SH, CMP, LDH #### [facility] [address] [place] [address] Dr. Alesia Meyers AST [Catalytic activity/Vol] 34 U/L Normal 15-37 [facility] Comment on above: Performed By: #### T SH, CMP, LDH #### [facility] [address] [place] [address] Dr. Alesia Meyers BILI, CONJUGATED 0.1 mg/dL Normal 0.0-0.2 [facility] Comment on above: Performed By: #### T SH, CMP, LDH #### [facility] [address] [place] [address] Dr. Alesia Meyers Bilirubin [Mass/Vol] 0.4 mg/dL Normal 0.2-1.0 [facility] Comment on above: Performed By: #### T SH, CMP, LDH #### [facility] [address] [place] [address] Dr. Alesia Meyers Globulin (S) [Mass/Vol] 3.7 g/dL Normal [facility] Comment on above: Performed By: #### T SH, CMP, LDH #### [facility] [address] [place] [address] Dr. Alesia Meyers Protein [Mass/Vol] 7.2 g/dL Normal 6.4-8.2 [facility] Comment on above: Performed By: #### T SH, CMP, LDH #### [facility] [address] [place] [address] Dr. Alesia Meyers PROF CHEM 8 (BAS METB)on Anion gap [Moles/Vol] 11.4 mmol/L Normal [facility] Comment on above: Performed By: #### T SH, CMP, LDH #### [facility] [address] [place] [address] Dr. Alesia Meyers Calcium [Mass/Vol] 9.1 mg/dL Normal 8.5-10.1 [facility] Comment on above: Performed By: #### T SH, CMP, LDH #### [facility] [address] [address] [address] Alesia Meyers Chloride [Moles/Vol] 103 mmol/L Normal 98-107 [facility] Comment on above: Performed By: #### T SH, CMP, LDH #### [facility] [address] [place] [address] Dr. Alesia Meyers CO2 [Moles/Vol] 31.2 mmol/L Normal 21.0-32.0 [facility] Comment on above: Performed By: #### T SH, CMP, LDH #### [facility] [address] [address] [address] Alesia Meyers Creatinine [Mass/Vol] 0.90 mg/dL Normal 0.55-1.02 [facility] Comment on above: Performed By: #### T SH, CMP, LDH #### [facility] [address] [place] [address] Dr. Alesia Meyers EGFR-AF KAZAKH >60 Normal >=60 [facility] Comment on above: Performed By: #### T SH, CMP, LDH #### [facility] [address] [place] [address] Dr. Alesia Meyers EGFR-NON AF KAZAKH >60 Normal >=60 [facility] Comment on above: Performed By: #### T SH, CMP, LDH #### [facility] [address] [place] [address] Dr. Alesia Meyers Glucose [Mass/Vol] 105 mg/dL Normal 74-106 [facility] Comment on above: Performed By: #### T SH, CMP, LDH #### [facility] [address] [place] [address] Dr. Alesia Meyers Potassium [Moles/Vol] 3.6 mmol/L Normal 3.5-5.1 [facility] Comment on above: Performed By: #### T SH, CMP, LDH #### [facility] [address] [address] [address] Alesia Meyers Sodium [Moles/Vol] 142 mmol/L Normal 136-145 [facility] Comment on above: Performed By: #### T SH, CMP, LDH #### [facility] [address] [place] [address] Dr. Alesia Meyers Urea nitrogen [Mass/Vol] 22.0 mg/dL Critically high 7.0-18.0 [facility] Comment on above: Performed By: #### T SH, CMP, LDH #### [facility] [address] [place] [address] Dr. Alesia Meyers Urea nitrogen/Creatinine [Mass ratio] 24.4 mg/mg Normal [facility] Comment on above: Performed By: #### T SH, CMP, LDH #### [facility] [address] [place] [address] Dr. Alesia Meyers TSHon 06-20-2022 TSH 3.302 uIU/mL Normal 0.358-3.74 0 [facility] Comment on above: Performed By: #### T SH, CMP, LDH #### [facility] [address] [place] [address] Dr. Alesia Meyers ACTH, PLASMAon 05-31-2022 ACTH, Plasma 28.5 pg/mL Normal 7.2-63.3 [facility] Comment on above: Result Comment: ACTH reference interval for samples collected between 7 and 10 AM. Performed By: #### T SH, CMP, LDH #### [facility] [address] [place] [address] Dr. Alesia Meyers CORTISOLon 05-31-2022 Cortisol 17.2 ug/dL Normal [facility] Comment on above: Result Comment: Melvin isol AM 6.2 - 19.4 Cortisol PM 2.3 - 11.9 Performed By: #### T SH, CMP, LDH #### [facility] [address] [place] [address] Dr. Alesia Meyers CBC AUTO DIFFon 05-30-2022 BASO # 0.0 103/ul Normal 0.0-0.1 [facility] Comment on above: Performed By: #### T SH, CMP, LDH #### [facility] [address] [place] [address] Dr. Alesia Meyers Basophils/100 WBC (Bld) 0.4 % Normal 0.2-2.0 [facility] Comment on above: Performed By: #### T SH, CMP, LDH #### [facility] [address] [place] [address] Dr. Alesia Meyers EO # 0.1 103/ul Normal 0.0-0.7 [facility] Comment on above: Performed By: #### T SH, CMP, LDH #### [facility] [address] [place] [address] Dr. Alesia Meyers Eosinophils/100 WBC (Bld) 2.1 % Normal 0.9-7.0 [facility] Comment on above: Performed By: #### T SH, CMP, LDH #### [facility] [address] [place] [address] Dr. Alesia Meyers Erythrocyte distribution width (RBC) [Ratio] 12.9 % Normal 11.0-15.0 [facility] Comment on above: Performed By: #### T SH, CMP, LDH #### [facility] [address] [place] [address] Dr. Alesia Meyers Hematocrit (Bld) [Volume fraction] 41.0 % Normal 36.0-48.0 [facility] Comment on above: Performed By: #### T SH, CMP, LDH #### [facility] [address] [place] [address] Dr. Alesia Meyers Hemoglobin (Bld) [Mass/Vol] 13.5 g/dL Normal 12.0-16.0 [facility] Comment on above: Performed By: #### T SH, CMP, LDH #### [facility] [address] [place] [address] Dr. Alesia Meyers IG # 0.02 10e3/ul Normal 0.00-0.03 [facility] Comment on above: Performed By: #### T SH, CMP, LDH #### [facility] [address] [place] [address] Dr. Alesia Meyers IG % 0.3 % Normal 0.0-0.5 [facility] Comment on above: Performed By: #### T SH, CMP, LDH #### [facility] [address] [place] [address] Dr. Alesia Meyers LYMPH # 2.1 103/ul Normal 1.2-3.8 [facility] Comment on above: Performed By: #### T SH, CMP, LDH #### [facility] [address] [place] [address] Dr. Alesia Meyers Lymphocytes/100 WBC (Bld) 30.5 % Normal 20.5-60.0 [facility] Comment on above: Performed By: #### T SH, CMP, LDH #### [facility] [address] [place] [address] Dr. Alesia Meyers MANUAL DIFF REQ NO Normal [facility] Comment on above: Performed By: #### T SH, CMP, LDH #### [facility] [address] [place] [address] Dr. Alesia Meyers MCH (RBC) [Entitic mass] 28.6 pg Normal 26.7-34.0 [facility] Comment on above: Performed By: #### T SH, CMP, LDH #### [facility] [address] [place] [address] Dr. Alesia Meyers MCHC (RBC) [Mass/Vol] 32.9 g/dL Normal 29.9-35.2 [facility] Comment on above: Performed By: #### T SH, CMP, LDH #### [facility] [address] [place] [address] Dr. Alesia Meyers MCV (RBC) [Entitic vol] 86.9 fL Normal 81.0-99.0 [facility] Comment on above: Performed By: #### T SH, CMP, LDH #### [facility] [address] [place] [address] Dr. Alesia Meyers MONO # 0.5 103/ul Normal 0.3-0.8 [facility] Comment on above: Performed By: #### T SH, CMP, LDH #### [facility] [address] [place] [address] Dr. Alesia Meyers Monocytes/100 WBC (Bld) 7.8 % Normal 1.7-12.0 [facility] Comment on above: Performed By: #### T SH, CMP, LDH #### [facility] [address] [place] [address] Dr. Alesia Meyers NEUT # 4.0 103/ul Normal 1.4-6.5 [facility] Comment on above: Performed By: #### T SH, CMP, LDH #### [facility] [address] [place] [address] Dr. Alesia Meyers Neutrophils/100 WBC (Bld) 58.9 % Normal 43.0-75.0 [facility] Comment on above: Performed By: #### T SH, CMP, LDH #### [facility] [address] [place] [address] Dr. Alesia Meyers Platelet mean volume (Bld) [Entitic vol] 9.0 fL Critically low 9.5-13.5 [facility] Comment on above: Performed By: #### T SH, CMP, LDH #### [facility] [address] [place] [address] Dr. Alesia Meyers PLT 224 103/ul Normal 150-450 [facility] Comment on above: Performed By: #### T SH, CMP, LDH #### [facility] [address] [place] [address] Dr. Alesia Meyers RBC 4.72 106/ul Normal 4.20-5.40 [facility] Comment on above: Performed By: #### T SH, CMP, LDH #### [facility] [address] [place] [address] Dr. Alesia Meyers WBC 6.8 103/ul Normal 4.0-11.0 [facility] Comment on above: Performed By: #### T SH, CMP, LDH #### [facility] [address] [place] [address] Dr. Alesia Meyers FREE T4on 05-30-2022 Free T4 [Mass/Vol] 1.19 ng/dL Normal 0.76-1.46 [facility] Comment on above: Performed By: #### T SH, CMP, LDH #### [facility] [address] [place] [address] Dr. Alesia Meyers LDHon 05-30-2022 LDH 231 U/L Normal 81-234 [facility] Comment on above: Performed By: #### F T4 #### [facility] [address] [place] [address] Dr. Alesia Meyers LIPASEon 05-30-2022 Lipase [Catalytic activity/Vol] 76.0 U/L Normal 73.0-393.0 [facility] Comment on above: Performed By: #### F T4 #### [facility] [address] [place] [address] Dr. Alesia Meyers LIVER PROFILEon 05-30-2022 Albumin [Mass/Vol] 3.5 g/dL Normal 3.4-5.0 [facility] Comment on above: Performed By: #### F T4 #### [facility] [address] [place] [address] Dr. Alesia Meyers Albumin/Globulin [Mass ratio] 0.9 {ratio} Normal [facility] Comment on above: Performed By: #### F T4 #### [facility] [address] [place] [address] Dr. Alesia Meyers ALP [Catalytic activity/Vol] 128 U/L Critically high 46-116 [facility] Comment on above: Performed By: #### F T4 #### [facility] [address] [place] [address] Dr. Alesia Meyers ALT [Catalytic activity/Vol] 35 U/L Normal 14-59 [facility] Comment on above: Performed By: #### F T4 #### [facility] [address] [place] [address] Dr. Alesia Meyers AST [Catalytic activity/Vol] 25 U/L Normal 15-37 [facility] Comment on above: Performed By: #### F T4 #### [facility] [address] [place] [address] Dr. Alesia ALEXANDRAI, CONJUGATED 0.1 mg/dL Normal 0.0-0.2 [facility] Comment on above: Performed By: #### F T4 #### [facility] [address] [place] [address] Dr. Alesia Meyers Bilirubin [Mass/Vol] 0.4 mg/dL Normal 0.2-1.0 [facility] Comment on above: Performed By: #### F T4 #### [facility] [address] [place] [address] Dr. Alesia Meyers Globulin (S) [Mass/Vol] 3.7 g/dL Normal [facility] Comment on above: Performed By: #### F T4 #### [facility] [address] [place] [address] Dr. Alesia Meyers Protein [Mass/Vol] 7.2 g/dL Normal 6.4-8.2 [facility] Comment on above: Performed By: #### F T4 #### [facility] [address] [place] [address] Dr. Alesia Meyers PROF CHEM 8 (BAS METB)on Anion gap [Moles/Vol] 7.3 mmol/L Normal [facility] Comment on above: Performed By: #### F T4 #### [facility] [address] [place] [address] Dr. Alesia Meyers Calcium [Mass/Vol] 9.0 mg/dL Normal 8.5-10.1 [facility] Comment on above: Performed By: #### F T4 #### [facility] [address] [place] [address] Dr. Alesia Meyers Chloride [Moles/Vol] 102 mmol/L Normal 98-107 [facility] Comment on above: Performed By: #### F T4 #### [facility] [address] [place] [address] Dr. Alesia Meyers CO2 [Moles/Vol] 32.3 mmol/L Critically high 21.0-32.0 [facility] Comment on above: Performed By: #### F T4 #### [facility] [address] [address] [address] Alesia Meyers Creatinine [Mass/Vol] 0.94 mg/dL Normal 0.55-1.02 [facility] Comment on above: Performed By: #### F T4 #### [facility] [address] [address] [address] Alesia Meyers EGFR-AF KAZAKH >60 Normal >=60 [facility] Comment on above: Performed By: #### F T4 #### [facility] [address] [address] [address] Alesia Meyers EGFR-NON AF KAZAKH 58 mL/min/1.73m2 Critically low >=60 [facility] Comment on above: Performed By: #### F T4 #### [facility] [address] [address] [address] Alesia Meyers Glucose [Mass/Vol] 108 mg/dL Critically high 74-106 [facility] Comment on above: Performed By: #### F T4 #### [facility] [address] [address] [address] Alesia Meyers Potassium [Moles/Vol] 3.6 mmol/L Normal 3.5-5.1 [facility] Comment on above: Performed By: #### F T4 #### [facility] [address] [address] [address] Alesia Meyers Sodium [Moles/Vol] 138 mmol/L Normal 136-145 [facility] Comment on above: Performed By: #### F T4 #### [facility] [address] [address] [address] Alesia Meyers Urea nitrogen [Mass/Vol] 24.0 mg/dL Critically high 7.0-18.0 [facility] Comment on above: Performed By: #### F T4 #### [facility] [address] [address] [address] Alesia Meyers Urea nitrogen/Creatinine [Mass ratio] 25.5 mg/mg Normal [facility] Comment on above: Performed By: #### F T4 #### [facility] [address] [address] [address] Alesia Meyers TSHon 05-30-2022 TSH 2.605 uIU/mL Normal 0.358-3.74 0 [facility] Comment on above: Performed By: #### F T4 #### [facility] [address] [address] [address] Alesia Meyers ACTH, PLASMAon 05-14-2022 ACTH, Plasma 17.0 pg/mL Normal 7.2-63.3 [facility] Comment on above: Result Comment: ACTH reference interval for samples collected between 7 and 10 AM. Performed By: #### A CTHP #### [facility] [address] [address] [address] Alesia Meyers ACTH, PLASMAon 05-12-2022 ACTH, Plasma WRORD Normal [facility] Comment on above: Result Comment: Test not performed. The required specimen for the test ordered was not received. received refrigerate plasma edta contacted Sheyla at your facility on 05-12-2022 ACTH reference interval for samples collected between 7 and 10 AM. Performed By: #### F T4 #### [facility] [address] [place] [address] Dr. Alesia Meyers Albumin [Mass/volume] in Ser um or PlasmaOrdered By: Sly Benson on 05-12-2022 Albumin [Mass/Vol] 3.5 g/dL 3.2-5.5 [facility] Direct bilirubin measurement Ordered By: Sly Benson on 05-12-2022 Bilirubin.direct [Mass/Vol] mg/dL 0.0-0.4 [facility] Globulin Calc (S) [Mass/Vol] Ordered By: Sly Benson on 05-12-2022 Globulin (S) [Mass/Vol] 3.0 g/dL [facility] - Chemistry and C hemistry - challengeOrdered By: Sly Benson on 05-12-2022 Lipase [Catalytic activity/Vol] 26.0 U/L 22-51 [facility] Lactate dehydrogenase measur ement (enzymatic activity/volume)Ordered By: Sly Benson on 05-12-2022 LDH (Unsp spec) [Catalytic activity/Vol] 199 U/L 45-190 [facility] No Panel InformationOrdered By: Sly Benson on 05-12-2022 Adrenocorticotropic Hormone 243.0 pg/mL 7.2-63.3 [facility] Comment on above: ACTH reference inter jamel for samples collected between 7 and10 AM.Performed at: [facility] [id number] Director: Coleman Lacy PhD, Phone: [phone] Protein [Mass/volume] in Ser um or PlasmaOrdered By: Sly Benson on 05-12-2022 Protein [Mass/Vol] 6.5 g/dL 6.1-7.9 [facility] Random cortisol measurementO rdered By: Sly Benson on 05-12-2022 Cortisol [Mass/Vol] 14.6 ug/dL [facility] Comment on above: Reference range: AM 6 - 24 ug/dl PM <10 ug/dl Serum or plasma alanine castro otransferase measurement without P-5'-P (enzymatic activiOrdered By: Sly Benson on 05-12-2022 ALT No additional P-5'-P [Catalytic activity/Vol] 31 U/L 10-60 [facility] Serum or plasma albumin/glob ulin mass ratioOrdered By: Sly Benson on 05-12-2022 Albumin/Globulin [Mass ratio] 1.2 {ratio} [facility] Serum or plasma alkaline halle sphatase measurement (enzymatic activity/volume)Ordered By: Sly Benson on 05-12-2022 ALP [Catalytic activity/Vol] 112 U/L 32-92 [facility] Serum or plasma aspartate am inotransferase measurement (enzymatic activity/volume)Ordered By: Sly Benson on 05-12-2022 AST [Catalytic activity/Vol] 33 U/L 10-42 [facility] Serum or plasma non-glucuron idated bilirubin measurement (mass/volume)Ordered By: Sly Benson on 05-12-2022 Bilirubin.indirect [Mass/Vol] TNP [facility] Comment on above: Test not performed Serum or plasma total biliru bin measurement (mass/volume)Ordered By: Sly Benson on 05-12-2022 Bilirubin [Mass/Vol] 0.8 mg/dL 0.3-1.2 [facility] Thyroxine (T4) free [Mass/vo lume] in Serum or PlasmaOrdered By: Sly Benson on 05-12-2022 Free T4 [Mass/Vol] 1.17 ng/dL 0.61-1.12 [facility] CORTISOLon 05-11-2022 Cortisol 15.4 ug/dL Normal [facility] Comment on above: Result Comment: Melvin isol AM 6.2 - 19.4 Cortisol PM 2.3 - 11.9 Performed By: #### T SH, CMP, LDH #### [facility] [address] [place] [address] Dr. Alesia Meyers CBC AUTO DIFFon 05-10-2022 BASO # 0.0 103/ul Normal 0.0-0.1 [facility] Comment on above: Performed By: #### C BC #### [facility] [address] [address] [address] Alesia Meyers Basophils/100 WBC (Bld) 0.3 % Normal 0.2-2.0 [facility] Comment on above: Performed By: #### C BC #### [facility] [address] [place] [address] Dr. Alesia Meyers EO # 0.2 103/ul Normal 0.0-0.7 [facility] Comment on above: Performed By: #### C BC #### [facility] [address] [address] [address] Alesia Meyers Eosinophils/100 WBC (Bld) 2.5 % Normal 0.9-7.0 [facility] Comment on above: Performed By: #### C BC #### [facility] [address] [place] [address] Dr. Alesai Meyers Erythrocyte distribution width (RBC) [Ratio] 13.2 % Normal 11.0-15.0 [facility] Comment on above: Performed By: #### C BC #### [facility] [address] [place] [address] Dr. Alesia Meyers Hematocrit (Bld) [Volume fraction] 39.1 % Normal 36.0-48.0 [facility] Comment on above: Performed By: #### C BC #### [facility] [address] [place] [address] Dr. Alesia Meyers Hemoglobin (Bld) [Mass/Vol] 12.9 g/dL Normal 12.0-16.0 [facility] Comment on above: Performed By: #### C BC #### [facility] [address] [place] [address] Dr. Alesia Meyers IG # 0.01 10e3/ul Normal 0.00-0.03 [facility] Comment on above: Performed By: #### C BC #### [facility] [address] [place] [address] Dr. Alesia Meyers IG % 0.2 % Normal 0.0-0.5 [facility] Comment on above: Performed By: #### C BC #### [facility] [address] [place] [address] Dr. Alesia Meyers LYMPH # 1.9 103/ul Normal 1.2-3.8 [facility] Comment on above: Performed By: #### C BC #### [facility] [address] [place] [address] Dr. Alesia Meyers Lymphocytes/100 WBC (Bld) 32.2 % Normal 20.5-60.0 [facility] Comment on above: Performed By: #### C BC #### [facility] [address] [place] [address] Dr. Alesia Meyers MANUAL DIFF REQ NO Normal [facility] Comment on above: Performed By: #### C BC #### [facility] [address] [place] [address] Dr. Alesia Meyers MCH (RBC) [Entitic mass] 29.0 pg Normal 26.7-34.0 [facility] Comment on above: Performed By: #### C BC #### [facility] [address] [place] [address] Dr. Alesia Meyers MCHC (RBC) [Mass/Vol] 33.0 g/dL Normal 29.9-35.2 [facility] Comment on above: Performed By: #### C BC #### [facility] [address] [address] [address] Alesia Meyers MCV (RBC) [Entitic vol] 87.9 fL Normal 81.0-99.0 [facility] Comment on above: Performed By: #### C BC #### [facility] [address] [place] [address] Dr. Alesia Meyers MONO # 0.5 103/ul Normal 0.3-0.8 [facility] Comment on above: Performed By: #### C BC #### [facility] [address] [place] [address] Dr. Alesia Meyers Monocytes/100 WBC (Bld) 8.5 % Normal 1.7-12.0 [facility] Comment on above: Performed By: #### C BC #### [facility] [address] [place] [address] Dr. Alesia Meyers NEUT # 3.3 103/ul Normal 1.4-6.5 [facility] Comment on above: Performed By: #### C BC #### [facility] [address] [place] [address] Dr. Alesia Meyers Neutrophils/100 WBC (Bld) 56.3 % Normal 43.0-75.0 [facility] Comment on above: Performed By: #### C BC #### [facility] [address] [place] [address] Dr. Alesia Meyers Platelet mean volume (Bld) [Entitic vol] 9.6 fL Normal 9.5-13.5 [facility] Comment on above: Performed By: #### C BC #### [facility] [address] [place] [address] Dr. Alesia Meyers PLT 210 103/ul Normal 150-450 [facility] Comment on above: Performed By: #### C BC #### [facility] [address] [place] [address] Dr. Alesia Meyers RBC 4.45 106/ul Normal 4.20-5.40 [facility] Comment on above: Performed By: #### C BC #### [facility] [address] [place] [address] Dr. Alesia Meyers WBC 5.9 103/ul Normal 4.0-11.0 [facility] Comment on above: Performed By: #### C BC #### [facility] [address] [place] [address] Dr. Alesia Meyers FREE T4on 05-10-2022 Free T4 [Mass/Vol] 1.19 ng/dL Normal 0.76-1.46 [facility] Comment on above: Performed By: #### F T4 #### [facility] [address] [place] [address] Dr. Alesia Meyers LDHon 05-10-2022 LDH 252 U/L Critically high 81-234 [facility] Comment on above: Performed By: #### T SH, CMP, LDH #### [facility] [address] [place] [address] Dr. Alesia Meyers LIPASEon 05-10-2022 Lipase [Catalytic activity/Vol] 70.0 U/L Critically low 73.0-393.0 [facility] Comment on above: Performed By: #### T SH, CMP, LDH #### [facility] [address] [place] [address] Dr. Alesia Meyers LIVER PROFILEon 05-10-2022 Albumin [Mass/Vol] 3.3 g/dL Critically low 3.4-5.0 [facility] Comment on above: Performed By: #### T SH, CMP, LDH #### [facility] [address] [place] [address] Dr. Alesia Meyers Albumin/Globulin [Mass ratio] 0.9 {ratio} Normal [facility] Comment on above: Performed By: #### T SH, CMP, LDH #### [facility] [address] [place] [address] Dr. Alesia Meyers ALP [Catalytic activity/Vol] 129 U/L Critically high 46-116 [facility] Comment on above: Performed By: #### T SH, CMP, LDH #### [facility] [address] [address] [address] Alesia Meyers ALT [Catalytic activity/Vol] 35 U/L Normal 14-59 [facility] Comment on above: Performed By: #### T SH, CMP, LDH #### [facility] [address] [place] [address] Dr. Alesia Meyers AST [Catalytic activity/Vol] 36 U/L Normal 15-37 [facility] Comment on above: Performed By: #### T SH, CMP, LDH #### [facility] [address] [place] [address] Dr. Alesia Meyers BILI, CONJUGATED 0.1 mg/dL Normal 0.0-0.2 [facility] [facility] Comment on above: Performed By: #### T SH, CMP, LDH #### [facility] [address] [place] [address] Dr. Alesia Meyers Bilirubin [Mass/Vol] 0.4 mg/dL Normal 0.2-1.0 [facility] Comment on above: Performed By: #### T SH, CMP, LDH #### [facility] [address] [place] [address] Dr. Alesia Meyers Globulin (S) [Mass/Vol] 3.7 g/dL Normal [facility] Comment on above: Performed By: #### T SH, CMP, LDH #### [facility] [address] [place] [address] Dr. Alesia Meyers Protein [Mass/Vol] 7.0 g/dL Normal 6.4-8.2 [facility] Comment on above: Performed By: #### T SH, CMP, LDH #### [facility] [address] [place] [address] Dr. Alesia Meyers PROF CHEM 8 (BAS METB)on Anion gap [Moles/Vol] 11.7 mmol/L Normal [facility] Comment on above: Performed By: #### T SH, CMP, LDH #### [facility] [address] [place] [address] Dr. Alesia Meyers Calcium [Mass/Vol] 8.9 mg/dL Normal 8.5-10.1 [facility] Comment on above: Performed By: #### T SH, CMP, LDH #### [facility] [address] [address] [address] Alesia Meyers Chloride [Moles/Vol] 104 mmol/L Normal 98-107 [facility] Comment on above: Performed By: #### T SH, CMP, LDH #### [facility] [address] [address] [address] Alesia Meyers CO2 [Moles/Vol] 29.3 mmol/L Normal 21.0-32.0 [facility] Comment on above: Performed By: #### T SH, CMP, LDH #### [facility] [address] [place] [address] Dr. Alesia Meyers Creatinine [Mass/Vol] 0.84 mg/dL Normal 0.55-1.02 [facility] Comment on above: Performed By: #### T SH, CMP, LDH #### [facility] [address] [place] [address] Dr. Alesia Meyers EGFR-AF KAZAKH >60 Normal >=60 [facility] Comment on above: Performed By: #### T SH, CMP, LDH #### [facility] [address] [place] [address] Dr. Alesia Meyers EGFR-NON AF KAZAKH >60 Normal >=60 [facility] Comment on above: Performed By: #### T SH, CMP, LDH #### [facility] [address] [place] [address] Dr. Alesia Meyers Glucose [Mass/Vol] 109 mg/dL Critically high 74-106 [facility] Comment on above: Performed By: #### T SH, CMP, LDH #### [facility] [address] [place] [address] Dr. Alesia Meyers Potassium [Moles/Vol] 4.0 mmol/L Normal 3.5-5.1 [facility] Comment on above: Performed By: #### T SH, CMP, LDH #### [facility] [address] [place], [place] [id number] Dr. Alesia Meyers Sodium [Moles/Vol] 141 mmol/L Normal 136-145 [facility] Comment on above: Performed By: #### T SH, CMP, LDH #### [facility] [address] [address] [address] Alesia Meyers Urea nitrogen [Mass/Vol] 19.0 mg/dL Critically high 7.0-18.0 [facility] Comment on above: Performed By: #### T SH, CMP, LDH #### [facility] [address] [address] [address] Alesia Meyers Urea nitrogen/Creatinine [Mass ratio] 22.6 mg/mg Normal [facility] Comment on above: Performed By: #### T SH, CMP, LDH #### [facility] [address] [address] [address] Alesia Meyers TSHon 05-10-2022 TSH 3.114 uIU/mL Normal 0.358-3.74 0 [facility] Comment on above: Performed By: #### T SH, CMP, LDH #### [facility] [address] [address] [address] Alesia Meyers Activated partial thrombopla stin time (aPTT) in platelet poor plasma by coagulation aOrdered By: Sly Benson on 04-28-2022 aPTT Coag (PPP) [Time] 28.1 s 25.1-36.5 [facility] Albumin [Mass/volume] in Ser um or PlasmaOrdered By: Sly Benson on 04-28-2022 Albumin [Mass/Vol] 3.5 g/dL 3.2-5.5 [facility] Basophils Auto (Bld) [#/Vol] Ordered By: Sly Benson on 04-28-2022 Basophils (Bld) [#/Vol] 0.0 10*3/uL 0.0-0.2 [facility] Basophils/100 WBC Auto (Bld) Ordered By: Sly Besnon on 04-28-2022 Basophils/100 WBC (Bld) 0.5 % . [facility] Creatinine and Glomerular fi ltration rate.predicted panel (S/P/Bld)Ordered By: Sly Benson on 04-28-2022 Creatinine [Mass/Vol] 0.84 mg/dL 0.44-1.03 [facility] Eosinophils Auto (Bld) [#/Vo l]Ordered By: Sly Benson on 04-28-2022 Eosinophils (Bld) [#/Vol] 0.1 10*3/uL 0.0-0.45 [facility] Eosinophils/100 WBC Auto (Bl d)Ordered By: Sly Benson on 04-28-2022 Eosinophils/100 WBC (Bld) 1.1 % . [facility] Erythrocyte distribution wid th Auto (RBC) [Ratio]Ordered By: Sly Benson on 04-28-2022 Erythrocyte distribution width (RBC) [Ratio] 14.1 % 11.9-15.3 [facility] Erythrocyte sedimentation ra te by Photometric methodOrdered By: Sly Benson on 04-28-2022 ESR Photometric method (Bld) [Velocity] 31 mm/hr 0-29 [facility] Estimated glomerular filtrat ion rate (GFR) non- AmericanOrdered By: Sly Benson on 04-28-2022 GFR/1.73 sq M.predicted among non-blacks MDRD (S/P/Bld) [Vol rate/Area] > 60 mL/Min [facility] Globulin Calc (S) [Mass/Vol] Ordered By: Sly Benson on 04-28-2022 Globulin (S) [Mass/Vol] 2.9 g/dL [facility] Hematocrit Auto (Bld) [Volum e fraction]Ordered By: Sly Benson on 04-28-2022 Hematocrit (Bld) [Volume fraction] 40.5 % 34.0-46.4 [facility] Hemoglobin [Mass/volume] in BloodOrdered By: Sly Benson on 04-28-2022 Hemoglobin (Bld) [Mass/Vol] 13.6 g/dL 11.8-15.4 [facility] - CoagulationOrde red By: Syl Benson on 04-28-2022 PT Coag (PPP) [Time] 10.6 s 9.0-12.9 [facility] - Hematology and Cell countsOrdered By: Sly Benson on 04-28-2022 Nucleated RBC/100 WBC (Bld) [Ratio] 0.1 % 0-0.5 [facility] Leukocytes [#/volume] in Blo od by Automated countOrdered By: Sly Benson on 04-28-2022 WBC (Bld) [#/Vol] 6.9 10*3/uL 4.5-11.0 [facility] Lymphocytes Auto (Bld) [#/Vo l]Ordered By: Sly Benson on 04-28-2022 Lymphocytes (Bld) [#/Vol] 2.0 10*3/uL 1.00-4.8 [facility] Lymphocytes/100 WBC Auto (Bl d)Ordered By: Sly Benson on 04-28-2022 Lymphocytes/100 WBC (Bld) 28.3 % . [facility] MCH Auto (RBC) [Entitic mass ]Ordered By: Sly Benson on 04-28-2022 MCH (RBC) [Entitic mass] 29.4 pg 24.7-34.3 [facility] MCHC Auto (RBC) [Mass/Vol]Or dered By: Sly Benson on 04-28-2022 MCHC (RBC) [Mass/Vol] 33.6 g/dL 32.0-35.0 [facility] MCV Auto (RBC) [Entitic vol] Ordered By: Sly Benson on 04-28-2022 MCV (RBC) [Entitic vol] 87.5 fL 80-100 [facility] Monocytes Auto (Bld) [#/Vol] Ordered By: Sly Benson on 04-28-2022 Monocytes (Bld) [#/Vol] 0.6 10*3/uL 0.0-0.8 [facility] Monocytes/100 WBC Auto (Bld) Ordered By: Sly Benson on 04-28-2022 Monocytes/100 WBC (Bld) 8.5 % . [facility] Neutrophils Auto (Bld) [#/Vo l]Ordered By: Sly Benson on 04-28-2022 Neutrophils (Bld) [#/Vol] 4.2 10*3/uL 1.8-7.7 [facility] Neutrophils/100 WBC Auto (Bl d)Ordered By: Sly Benson on 04-28-2022 Neutrophils/100 WBC (Bld) 61.6 % . [facility] No Panel InformationOrdered By: Sly Benson on 04-28-2022 Anti-Nuclear Antibody Comment [address] [facility] Comment on above: For more information about Hep-2 cell patterns useANApatterns.org, the official website for the [employer]end[employer] on Antinuclear Antibody (BARRETT) Patterns (ICAP). ----A positive BARERTT result may occur in healthy individuals (lowtiter) or be associated with a variety of diseases. Seeinterpretation chart which is not all inclusive:Pattern Antigen Detected Suggested Disease Association Homogeneous DNA(ds,ss), SLE - High titers Nucleosomes, Histones Drug-induced SLE Speckled Sm, VICE PRESIDENT OF TALENT ACQUISITION, SCL-70, SLE,MCTD,PSS (diffuse form), SS-A/SS-B Sjogrens Nucleolar SCL-70, PM-1/SCL High titers Scleroderma, PM/DM Centromere Centromere PSS (limited form) w/Crest syndrome variable Nuclear Dot [id number] Primary Biliary Cirrhosis Nuclear GP210, Primary Biliary CirrhosisMembrane fish A,B,C Performed at: [facility] [address] [id number] Director: Coleman Lacy PhD, Phone: [phone] Estimated GFR () > 60 mL/Min [facility] Comment on above: GFR estimated refere nce range: According to KDOQI guidelines, <60 ml/min/1.73m2 is sufficient to diagnose a patient with chronic kidney disease. Pharmacy Creatinine Clearance (Chem 60.78 [facility] Platelet mean volume Auto (B ld) [Entitic vol]Ordered By: Sly Benson on 04-28-2022 Platelet mean volume (Bld) [Entitic vol] 7.6 fL 6.3-10.7 [facility] Platelet poor plasma interna tional normalized ratio (INR) by coagulation assay (relatOrdered By: Sly Benson on 04-28-2022 INR Coag (PPP) [Relative time] 0.9 {INR} [facility] Comment on above: INR Therapeutic Rang [...] 04-28-2022 Platelets (Bld) [#/Vol] 204 10*3/uL 150-450 [facility] Protein [Mass/volume] in Ser um or PlasmaOrdered By: Sly Benson on 04-28-2022 Protein [Mass/Vol] 6.4 g/dL 6.1-7.9 [facility] RBC Auto (Bld) [#/Vol]Ordere d By: Sly Benson on 04-28-2022 RBC (Bld) [#/Vol] 4.63 10*6/uL 3.60-5.00 [facility] Serum nuclear antibody titer Ordered By: Sly Benson on 04-28-2022 Nuclear Ab (S) [Titer] Positive . [facility] Comment on above: Negative <1:80 Borde rline 1:80 Positive >1:80 Serum or plasma alanine castro otransferase measurement without P-5'-P (enzymatic activiOrdered By: Sly Benson on 04-28-2022 ALT No additional P-5'-P [Catalytic activity/Vol] 34 U/L 10-60 [facility] Serum or plasma albumin/glob ulin mass ratioOrdered By: Sly Benson on 04-28-2022 Albumin/Globulin [Mass ratio] 1.2 {ratio} [facility] Serum or plasma alkaline halle sphatase measurement (enzymatic activity/volume)Ordered By: Sly Benson on 04-28-2022 ALP [Catalytic activity/Vol] 114 U/L 32-92 [facility] Serum or plasma anion gap de terminationOrdered By: Sly Benson on 04-28-2022 Anion gap [Moles/Vol] 11.9 mmol/L 6.0-15.0 [facility] Serum or plasma aspartate am inotransferase measurement (enzymatic activity/volume)Ordered By: Sly Benson on 04-28-2022 AST [Catalytic activity/Vol] 38 U/L 10-42 [facility] Serum or plasma calcium diamond urement (mass/volume)Ordered By: Sly Benson on 04-28-2022 Calcium [Mass/Vol] 8.9 mg/dL 8.2-10.2 [facility] Serum or plasma chloride zora surement (moles/volume)Ordered By: Sly Benson on 04-28-2022 Chloride [Moles/Vol] 105 mmol/L 95-114 [facility] Serum or plasma glucose diamond urement (mass/volume)Ordered By: Sly Benson on 04-28-2022 Glucose [Mass/Vol] 110 mg/dL 70-100 [facility] Comment on above: ADA recommended refe rence rangeRandom Glucose Reference Range is dependent on time and content of last meal. Glucose of more than 200 mg/dL in a nonstressed, ambulatory subject supports the diagnosis of Diabetes Mellitus. Serum or plasma potassium me asurement (moles/volume)Ordered By: Sly Benson on 04-28-2022 Potassium [Moles/Vol] 3.5 mmol/L 3.5-5.1 [facility] Serum or plasma sodium measu rement (moles/volume)Ordered By: Sly Benson on 04-28-2022 Sodium [Moles/Vol] 140 mmol/L 136-146 [facility] Serum or plasma total biliru bin measurement (mass/volume)Ordered By: Sly Benson on 04-28-2022 Bilirubin [Mass/Vol] 0.9 mg/dL 0.3-1.2 [facility] Serum or plasma total carbon dioxide measurement (moles/volume)Ordered By: Sly Benson on 04-28-2022 CO2 [Moles/Vol] 26.6 mmol/L 22.0-30.0 [facility] Serum or plasma urea nitroge n measurement (mass/volume)Ordered By: Sly Benson on 04-28-2022 Urea nitrogen [Mass/Vol] 16 mg/dL 9-23 [facility] Serum speckled pattern antin uclear antibody (BARRETT) titerOrdered By: Sly Benosn on 04-28-2022 Speckled nuclear Ab pattern (S) [Titer] 1:[address] [facility] Comment on above: ICAP nomenclature: A C-2,4,5,29 TSH DL <= 0.005 mIU/L QnOrde red By: Sly Benson on 04-28-2022 TSH Qn 3.18 m[IU]/L 0.45-5.33 [facility] Creatinine and Glomerular fi ltration rate.predicted panel (S/P/Bld)Ordered By: Alex Trammell on 03-26-2022 Creatinine [Mass/Vol] 0.87 mg/dL 0.44-1.03 [facility] Estimated glomerular filtrat ion rate (GFR) non- AmericanOrdered By: Alex Trammell on 03-26-2022 GFR/1.73 sq M.predicted among non-blacks MDRD (S/P/Bld) [Vol rate/Area] > 60 mL/Min [facility] No Panel InformationOrdered By: Alex Trammell on 03-26-2022 Estimated GFR () > 60 mL/Min [facility] Comment on above: GFR estimated refere nce range: According to KDOQI guidelines, <60 ml/min/1.73m2 is sufficient to diagnose a patient with chronic kidney disease. Pharmacy Creatinine Clearance (Chem N/A [facility] Serum or plasma urea nitroge n measurement (mass/volume)Ordered By: Alex Trammell on 03-26-2022 Urea nitrogen [Mass/Vol] 18 mg/dL 9- [facility] Creatinine and Glomerular fi ltration rate.predicted panel (S/P/Bld)Ordered By: Alex Trammell on 10-10-2021 Creatinine [Mass/Vol] 0.91 mg/dL 0.44-1.03 [facility] Estimated glomerular filtrat ion rate (GFR) non- AmericanOrdered By: Alxe Trammell on 10-10-2021 GFR/1.73 sq M.predicted among non-blacks MDRD (S/P/Bld) [Vol rate/Area] 60 mL/Min [facility] No Panel InformationOrdered By: Alex Trammell on 10-10-2021 Estimated GFR () > 60 mL/Min [facility] Comment on above: GFR estimated refere nce range: According to KDOQI guidelines, <60 ml/min/1.73m2 is sufficient to diagnose a patient with chronic kidney disease. Pharmacy Creatinine Clearance (Chem N/A [facility] Serum or plasma urea nitroge n measurement (mass/volume)Ordered By: Alex Trammell on 10-10-2021 Urea nitrogen [Mass/Vol] 19 mg/dL 04-04 [facility] Dermatopathologyon Dermatopathology Name THERESA LUU Pathologist: [...] M.D. Electronically Signed Out By SURAJ MELGAR MD/[facility] By the signature on this report, the [...] mm. Inked and embedded in toto. mlz/09/18/2021 [facility] [place], [place] [id number] [place] [address] Normal [facility] Comment on above: Performed By: #### D #### Dermatopathology No Panel Informationon 09-17 ON-Abhtuvm-L [facility] Work Phone: Office Visit (Oncology Surge [...] not connect with the medical oncologist at [facility] who was planning to consider [...] a prior mole. 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 As [...] swelling fro (more content not included)... Normal [facility] COMPREHENSIVE METABOLIC PANE [facility] 05-04-2021 Albumin [Mass/Vol] 4.1 g/dL Normal 3.6-5.1 [facility] Comment on above: Performed By: #### 7 600, [id number] #### [facility] [address] [address] [employer] Etcher: Chadwick Suárez MD Albumin/Globulin [Mass ratio] 1.4 {ratio} Normal 1.0-2.5 [facility] Comment on above: Performed By: #### 7 600, [id number] #### [facility] [address] [address] [employer]cher: Chadwick Suárez MD ALP [Catalytic activity/Vol] 121 U/L Normal 37-153 [facility] Comment on above: Performed By: #### 7 600, [id number] #### [facility] [address] [address] [employer]cher: Chadwick Suárez MD ALT [Catalytic activity/Vol] 18 U/L Normal 6-29 [facility] Comment on above: Performed By: #### 7 600, 05053 #### [facility] [address] [address] [employer]cher: Chadwick Suárez MD AST [Catalytic activity/Vol] 19 U/L Normal 10-35 [facility] Comment on above: Performed By: #### 7 600, 45684 #### [facility] [address], [address] [place] [address] [employer]cher: Chadwick Suárez MD Bilirubin [Mass/Vol] 0.5 mg/dL Normal 0.2-1.2 [facility] Comment on above: Performed By: #### 7 600, [id number] #### [facility] of [address], [address] [place] [address] [employer]: Chadwick Suárez MD BUN/CREATININE RATIO NOT APPLICABLE Normal 6-22 [facility] Comment on above: Performed By: #### 7 600, [id number] #### [facility] of [address], [address] [place] [address] [employer]: Chadwick Suárez MD Calcium [Mass/Vol] 9.4 mg/dL Normal 8.6-10.4 [facility] Comment on above: Performed By: #### 7 600, [id number] #### [facility] [address], [address] [place] [address] [employer]: Chadwick Suárez MD Chloride [Moles/Vol] 106 mmol/L Normal 98-110 [facility] Comment on above: Performed By: #### 7 600, [id number] #### [facility] of [address], [address] [place] [address] [employer]: Chadwick Suárez MD CO2 [Moles/Vol] 31 mmol/L Normal 20-32 [facility] Comment on above: Performed By: #### 7 600, 16059 #### [facility] of [address] [address] [employer]: Chadwick Suárez MD Creatinine [Mass/Vol] 0.78 mg/dL Normal 0.60-0.93 [facility] Comment on above: Result Comment: For patients >49 years of age, the reference limit for Creatinine is approximately 13% higher for people identified as -Palestinian. Performed By: #### 7 600, [id number] #### [facility] of [address], [address] [place] [address] [employer]cher: Chadwick Suárez MD eGFR NON-AFR. KAZAKH 75 mL/min/1.73m2 Normal > OR = 60 [facility] Comment on above: Performed By: #### 7 600, 18388 #### [facility] [address] [place] [address] [employer]cher: Chadwick Suárez MD GFR/1.73 sq M.predicted among blacks MDRD (S/P/Bld) [Vol rate/Area] 87 mL/min/{1.73_m2} Normal > OR = 60 [facility] Comment on above: Performed By: #### 7 600, 27459 #### [facility] [address] [place] [address] [employer]cher: Chadwick Suárez MD Globulin (S) [Mass/Vol] 2.9 g/dL Normal 1.9-3.7 [facility] Comment on above: Performed By: #### 7 600, 98372 #### [facility] [address] [address] [employer]: Chadwick Suárez MD Glucose [Mass/Vol] 105 mg/dL High 65-99 [facility] Comment on above: Result Comment: Fasting reference interval For someone without known diabetes, a glucose value between 100 and 125 mg/dL is consistent with prediabetes and should be confirmed with a follow-up test. Performed By: #### 7 600, 17164 #### [facility] [address] [address] [employer]cher: Chadwick Suárez MD Potassium [Moles/Vol] 4.9 mmol/L Normal 3.5-5.3 [facility] Comment on above: Performed By: #### 7 600, 65145 #### [facility] [address] [address] [employer]cher: Chadwick Suárez MD Protein [Mass/Vol] 7.0 g/dL Normal 6.1-8.1 [facility] Comment on above: Performed By: #### 7 600, 64978 #### [facility] [place] [address] [employer]: Chadwick Suárez MD Sodium [Moles/Vol] 143 mmol/L Normal 135-146 [facility] Comment on above: Performed By: #### 7 600, 91647 #### [facility] [address], [address] [place] [address] [employer]cher: Chadwick Suárez MD Urea nitrogen [Mass/Vol] 18 mg/dL Normal 7-25 [facility] Comment on above: Performed By: #### 7 600, 82694 #### [facility] [address], [address] [place] [address] [employer]cher: Chadwick Suárez MD LIPID PANEL, [facility] 10-2 Cholesterol [Mass/Vol] 235 mg/dL High <200 [facility] Comment on above: Order Comment: FASTI NG:YES AN UPDATE OR CORRECTION HAS BEEN MADE TO NAME FASTING: YES Performed By: #### 7 600, 11619 #### [facility] [address], [address] [place] [address] [employer]cher: Chadwick Suárez MD Cholesterol in HDL [Mass/Vol] 83 mg/dL Normal > OR = 50 [facility] Comment on above: Order Comment: FASTI NG:YES AN UPDATE OR CORRECTION HAS BEEN MADE TO NAME FASTING: YES Performed By: #### 7 600, 11707 #### [facility] [place] [address] [employer]: Chadwick Suárez MD Cholesterol in LDL [Mass/Vol] [...] LDL-C. Enrique BOUDREAUX et al. ROCCO. 2013;310(19): 9234-4921 (http://education.[employer]/faq/ELE778) Performed By: #### 7 600, 72864 #### [facility] [address], [address] [place] [address] [employer]cher: Chadwick Suárez MD Cholesterol.total/Chol esterol in HDL [Mass ratio] 2.8 {ratio} Normal <5.0 [facility] Comment on above: Order Comment: FASTI NG:YES AN UPDATE OR CORRECTION HAS BEEN MADE TO NAME FASTING: YES Performed By: #### 7 600, 08077 #### [facility] [address], [address] [place] [address] [employer]cher: Chadwick Suárez MD NON HDL CHOLESTEROL 152 [...] therapeutic option. Performed By: #### 7 600, 77422 #### [facility] [address], [address] [place] [address] [employer]cher: Chadwick Suárez MD Triglyceride [Mass/Vol] 132 mg/dL Normal <150 [facility] Comment on above: Order Comment: FASTI NG:YES AN UPDATE OR CORRECTION HAS BEEN MADE TO NAME FASTING: YES Performed By: #### 7 600, 43062 #### [facility] [address], [address] [place] [address] [employer]cher: Chadwick Suárez MD Office Visit (Oncology Surge [...] was referred to Dr. Francisca Rose at [facility] for medical oncology consultation for her [...] is a 75-year-old female referred by Dr. Argelai Aguilar for evaluation and management of a [...] a prior mole. The patient moved from [place] 8 years ago and has not established [...] be referred to Dr. Francisca Rose at [facility] for medical oncology consultation. Her care [...] a prior mole. The patient moved from [place] 8 years ago and has not established [...] included)... Normal [facility], Misc + smearon 05-25-2 021 Bacteria identified Cx Nom (Unsp spec) Abnormal QZ-Ofexhne-M [facility] Work Phone: MISCELLANEOUS CULT./SM.BACT. on 12-04-2020 MISCELLANEOUS CULT./SM.BACT. PATIENT: THERESA LUU LOCATION: [facility] BILL#: [id number] : 47 AGE: SEX: F ORDERED BY: [...] DOSE DEPENDENT NS=NONSUSCEPTIBLE X=REPORTED IN ERROR Normal [facility] Comment on above: Performed By: #### M [facility] #### [facility] [address] [place] [address] Office Visit (Oncology Surge ry)on 12-04-2020 Follow-up [...] be referred to Dr. Francisca Rose at [facility] for medical oncology consultation. Her care [...] a prior mole. The patient moved from [place] 8 years ago and has not established [...] The s (more content not included)... Normal [facility] Office Visit (Oncology Surge ry)on 11-27-2020 Follow-up [...] be referred to Dr. Francisca Rose at [facility] for medical oncology consultation. Her care [...] a prior mole. The patient moved from [place] 8 years ago and has not established [...] Malignant jerson (more content not included)... Normal [facility] Dermatopathologyon Dermatopathology [facility] [address] [place] [id number] DER[facility]OPATHOLOGY RE[facility] [id number] Location: [facility] Date of Procedure: 11/16/2020 Race: Date Received: [...] determined by the Department of Pathology at [facility]. The FDA does not require this test [...] LEFT LOWER LEG MELANOMA: SPECIMEN Procedure: Re-excision [place] node(s) biopsy Specimen Laterality: Left TUMOR Tumor [...] of Lymph Nodes Examined: 3 Number of [place] Nodes Examined: 2 PATHOLOGIC STAGE CLASSIFICATION (pTNM, [...] ADDITIONAL FINDINGS Additional Findings: None ADDITIONAL TESTING CLINIC CHARGE NURSE BLOCKS: Normal Block: D1 - 5, 7, 18, 20 - 23 Tumor Block: D6, 8 - 17 Electronically Signed Out By SURAJ MELGAR MD/MICHAEL By the signature on this report, the individual or group listed as making the Final Interpretation/Diagnosis certifies that they have reviewed this case. Clinical History: A: [place] lymph n (more content not included)... Normal [facility] Comment on above: Performed By: #### D #### Dermatopathology LYMPH GLANDon 11-16-2020 LYMPH GLAND Patient Name: THERESA LUU STUDY: LYMPH GLAND; 11/16/2020 10:05 am INDICATION: Malignant melanoma of left lower leg. COMPARISON: PET-CT 10/31/2020. ACCESSION NUMBER(S): [id number] ORDERING CLINICIAN: ALEX TRAMMELL TECHNIQUE: DIVISION OF [...] review. Electronically signed by: COCO ARCHIBALD MD [facility] No Panel Informationon 11-16 [facility] Work Phone: Order Reconciliationon 11-16 Order [...] every 6 hours, As Needed pain Normal [facility] Patient Profile - Preop v2on 11-16-2020 Patient Profile - Preop v2 Profile: Initial Info: How to be Addressedpamela(1) Spoken Language PreferredEnglish (1) Source of Informationpatient Are you currently using the Personal Electronic Health Record or LonoMoove In Stated Reason for Admissionmelanoma on my lower left leg Primary Contact Name and Numberdonna-cousin Other Contact Names and Numberssue-friend Patient Belongingsremains with patient; patient educated regarding responsibility for personal items Patient Belongings Remaining with Patientclothing Medications Brought to Hospitalno General Health: Weight in kg90 kilogram(s) Weight in ggx130.4 pound(s) Weight Methodactual (measured) Scale Typechair Height in feet5 feet Height in inches2 inch(es) Height in cm157.4 centimeter(s) Height Methodstated BMI (kg/m2)36.327 square meter Patient or Family Member Reaction to Anesthesiano previous reaction Blood Avoidance/Restrictionsnone Previous Transfusion Reactionno Health Mgmt: Symptoms/Conditions Managed at Homecancer Cancer Symptoms/Conditionsmelanom a Barriers to Managing Healthnone Relationship/Environ: Living Arrangementshouse Lives Withalone Resource/Environmental Concernsnone [facility] Anticipated at Transitionnone Substance: [...] material; individual instruction Cultural Considerationsnone Developmental Considerationsnone Baptism Considerationsnone Other learner availableno Falls RiskPatient location auto qualifies him/her for HIGH RISK. Are there any cultural, spiritual, anabaptism practices/values/needs that are important for us to [...] Profile - Preop v2 14-Nov-2020 09:30 Normal [facility] Preop Checkliston 11-16-2020 Preop Checklist Preop Checklist: Preop Checklist: Arrival [id number] Arrival Time06:04 NPO [id number] 22:00 ID Band Onyes Allergy Bandno known [...] Checklist Last Updated: 16-Nov-2020 06:31 by Deepa Zazueta) Normal [facility] Radiologyon 11-16-2020 NM Lymph node Views Normal MG-Burton rgery-S [facility] Work Phone: BASIC METABOLIC PANELon 05-0 Anion gap [Moles/Vol] 10 mmol/L Normal 10 - 20 [facility] Comment on above: Performed By: #### B MP #### [address] [place] [address] Calcium [Mass/Vol] 9.2 mg/dL Normal 8.6 - 10.3 [facility] Comment on above: Performed By: #### B MP #### [address] [address] Chloride [Moles/Vol] 105 mmol/L Normal 98 - 107 [facility] Comment on above: Performed By: #### B MP #### [address] [address] Creatinine [Mass/Vol] 0.81 mg/dL Normal 0.50 - 1.05 [facility] Comment on above: Performed By: #### B MP #### [address] [address] GFR- AM. >60 Normal >60 [facility] Comment on above: Result Comment: CALC ULATIONS OF ESTIMATED GFR ARE PERFORMED USING THE MDRD STUDY EQUATION FOR THE IDMS-TRACEABLE CREATININE METHODS. CLIN CHEM 2007;53:766-72 Performed By: #### B MP #### [address] [address] GFR-NON AM. >60 Normal >60 [facility] Comment on above: Performed By: #### B MP #### [address] [address] Glucose [Mass/Vol] 95 mg/dL Normal 74 - 99 [facility] Comment on above: Performed By: #### B MP #### [address] [address] HCO3 (Bld) [Moles/Vol] 30 mmol/L Normal 21 - 32 [facility] Comment on above: Performed By: #### B MP #### [address] [address] Potassium [Moles/Vol] 4.1 mmol/L Normal 3.5 - 5.3 [facility] Comment on above: Performed By: #### B MP #### [facility] [address] [facility] [place] [address] Sodium [Moles/Vol] 141 mmol/L Normal 136 - 145 [facility] Comment on above: Performed By: #### B MP #### [facility] [id number] [place] [address]. [place] [address] Urea nitrogen [Mass/Vol] 16 mg/dL Normal 6 - 23 [facility] Comment on above: Performed By: #### B MP #### [address] [place] [address] CORONAVIRUS 2019, SCREEN ASY MPTOMATICon 11-14-2020 SARS-CoV-2 (COVID-19) RNA BENOIT+probe Ql (Unsp spec) Not detected Normal Not Detected [facility] Comment on above: Result Comment: [...] this test method. Fact sheet for providers: https://www.fda.gov/media/603169/download Fact sheet for patients: https://www.fda.gov/media/767170/download This test has received FDA Emergency Use Authorization [EUA] and has been verified by [facility] ([facility]). This test is only authorized for the duration of time that circumstances exist to justify the authorization of the emergency use of in vitro diagnostic tests for the detection of SARS-CoV-2 virus and/or diagnosis of COVID-19 infection under section 564(b)(1) of the Act, 21 U.S.C. 360bbb-3(b)(1), unless the authorization is terminated or revoked sooner. [facility] is certified under CLIA-88 as qualified to perform high complexity testing. Testing is performed in the [facility] laboratories located at [address] [place] [address]. Performed By: #### C OVSC #### [place] [address] Lab Specimen Source Nasal, Nasopharyngeal Normal [facility] Comment on above: Performed By: #### C OVSC #### [facility] [address] [place] [id number] Coronavirus 2019 RNA by PCR, Screening Asymptomticon 11-14-2020 Coronavirus 2019 RNA by PCR, Screening Asymptomtic Not detected Normal See Below LV-Bxbfvwi-H [facility] Work Phone: Comment on above: SOURCE: [...] this test method. Fact sheet for providers: https://www.fda.gov/media/088497/downloadFact sheet for patients: https://www.fda.gov/media/838289/downloadThis test has received FDA Emergency Use Authorization [EUA] and has been verified by [facility] ([facility]). This test is only authorized for the duration of time that circumstances exist to justify the authorization of the emergency use of in vitro diagnostic tests for the detection of SARS-CoV-2 virus and/or diagnosis of COVID-19 infection under section 564(b)(1) of the Act, 21 U.S.C. 360bbb-3(b)(1), unless the authorization is terminated or revoked sooner. [facility] is certified under CLIA-88 as qualified to perform high complexity testing. Testing is performed in the [facility] laboratories located at [address] [facility] [place] [address]. Covid 19 Resultson SARS-CoV-2 (COVID-19) RNA BENOIT+probe [...] You may also be contacted by the [facility] to see if any of your close [...] or Naproxen (Aleve) can also be used. Errq-jkp-dkvceqq cough and cold medicines can be used according to the instructions on the package. Some nzgo-kxl-epeboqc medicines also contain acetaminophen. Make sure you [...] water are not available, use alcohol-based hand varnisher. Avoid touching your eyes, nose, and mouth [...] 24 sivakumar (more content not included)... Normal [facility] Laboratory - Chemistry and C hemistry - challengeon 11-14-2020 Anion gap [Moles/Vol] 10 mmol/L 10 - 20 MG- Surgery-S [facility] Work Phone: Calcium [Mass/Vol] 9.2 mg/dL 8.6 - 10.3 MG-Pedro nancy-S [facility] Work Phone: [phone] Chloride [Moles/Vol] 105 mmol/L 98 - 107 MG-S urgery-S [facility] Work Phone: [phone] CO2 [Moles/Vol] 30 mmol/L 21 - 32 MG-Surger y-S [facility] Work Phone: [phone] Creatinine [Mass/Vol] 0.81 mg/dL See Below MG- Surgery-S [facility] Work Phone: Comment on above: Reference Range: 0.5 0 - 1.05 Glucose [Mass/Vol] 95 mg/dL 74 - 99 MG-Pedro nancyS [facility] Work Phone: [phone] Potassium [Moles/Vol] 4.1 mmol/L 3.5 - 5.3 MG- SurgeryS [facility] Work Phone: [phone] Sodium [Moles/Vol] 141 mmol/L 136 - 145 MG-Pedro nancyS [facility] Work Phone: Urea nitrogen [Mass/Vol] 16 mg/dL 6 - 23 DT-Esjbkhe-B [facility] Work Phone: No Panel Informationon 11-14 >60 >60 ZU-Mvmatba-N [facility] Work Phone: Comment on above: CALCULATIONS OF DENIS MATED GFR ARE PERFORMED USING THE MDRD STUDY EQUATION FOR THE IDMS-TRACEABLE CREATININE METHODS. CLIN CHEM 2007;53:766-72 [email or web address] 1:8080 /musescripts/museweb.dll?R etrieveTestByDateTime?Rachel yjmMS=[id number]&Date=11-14&Time=09%3a51%3a40%3a 00&TestType=ECG&Site=12&Ou tputType=PDF&Ext=PDF NE-Hioxdkb-J [facility] [place] Work Phone: [phone] Normal sinus rhythm MG-Burton rgery-S [facility] Work Phone: [phone] Normal KQ-Qjxvetg-M [facility] [place] Work Phone: [phone] 1 FT-Cyslsdt-S [facility] Work Phone: [phone] ZG[facility]med[facility]K [facility] Work Phone: [phone] BW-Swasabv-H [facility] [place] Work Phone: [phone] TK-Lxscgvm-X [facility] [place] Work Phone: [phone] DN-Kqfuktq-C [facility] Work Phone: [phone] BG-Rrfmnex-U [facility] Work Phone: [phone] LA-Wmpyton-G [facility] Work Phone: [phone] MV-Dablqmi-G [facility] Work Phone: [phone] BC-Zecpiaz-J [facility] Work Phone: [phone] MI-Utxknon-W [facility] Work Phone: [phone] 1 LT-Iflvbtk-I [facility] Work Phone: [phone] TY-Ksyvzxy-V [facility] [place] Work Phone: [phone] FV-Pqfxgnv-W [facility] Work Phone: [phone] ZG-Hthhuzu-G [facility] [place] Work Phone: [phone] PET/CT MELANOMA INITIAL STAG [place] 10-31-2020 [...] leg biopsy-proven melanoma. COMPARISON: None. ACCESSION NUMBER(S): [id number] ORDERING CLINICIAN: ALEX TRAMMELL TECHNIQUE: DIVISION OF [...] CODING: Initial Treatment Strategy (PI) CALIBRATION: Dose Atdrulqec-ke-Wtkv Interval (mins): 72 min Mediastinal bloodpool SUV [...] as stated. This study was interpreted at [facility]. Electronically signed by: IVELISSE OVALLE MD Normal [facility] Office Visit (Oncology Surge ry)on [...] a prior mole. The patient moved from [place] 8 years ago and has not established [...] chronic medical conditions Social history: Lives in [place] independently. Has 2 dogs. Walks regularly. Denies tobacco, alcohol, and drug use. Has extended family in [place] Allergies: No known drug allergies ROS: The [...] content not included)... Normal [employer] [facility] Surgical Pathology Depar tmenton 10-16-2020 [facility] Surgical Pathology Department Name THERESA LUU Pathologist: SHER DIAS MD Date of Procedure: 10/16/2020 Date Received: 10/31/2020 Date Reported 11/02/2020 Submitting Physician: SURAJ MELGAR MD Location: [facility] FINAL DIAGNOSIS RESULTS OF ANCILLARY TESTING ORDERED [...] extraction and testing are performed in the [facility] ([facility]) located at [address] [place] [address] (CLIA License #[id number], CAP #[id number]). This laboratory developed test was developed and its analytical performance characteristics have been determined by [facility]. This test has not been cleared or approved by the FDA; however, the FDA has determined that such approval is not necessary. The [facility] is certified under the Clinical Laboratory [...] as m (more content not included)... Normal [facility] Comment on above: Performed By: #### U [facility] #### [facility] Surgical Pathology Department [address] [address] [facility] [address] Vital Signs Date Time Vital Sign Value Performing Clinician Facility 01-22-2024 09:19-0400 Body temperature 98 [degF] DO [employer] Work Phone: [facility] 01-22-2024 09:19-0400 Body weight 85.72 kg DO [employer] Work Phone: [facility] 01-22-2024 09:19-0400 Diastolic blood pressure 64 mm[Hg] DO [employer] Phone: [facility] 01-22-2024 09:19-0400 Heart rate 80 /min DO [employer] Work Phone: [facility] 01-22-2024 09:19-0400 Respiratory rate 20 /min DO Yoni Furlong Work Phone: [facility] 01-22-2024 09:19-0400 SaO2% (BldA) [Mass fraction] 96 % DO Yoni Furlong Work Phone: [facility] 01-22-2024 09:19-0400 Systolic blood pressure 134 mm[Hg] DO Yoni Furlong Work Phone: [facility] 12-25-2023 13:25-0400 Body temperature 97.8 [degF] DO Yoni Furlong Work Phone: [facility] 12-25-2023 13:25-0400 Diastolic blood pressure 72 mm[Hg] DO Yoni Furlong Work Phone: [facility] 12-25-2023 13:25-0400 Heart rate 99 /min DO Yoni Furlong Work Phone: [facility] 12-25-2023 13:25-0400 Respiratory rate 16 /min DO Yoni Furlong Work Phone: [facility] 12-25-2023 13:25-0400 SaO2% (BldA) [Mass fraction] 95 % DO Yoni Furlong Work Phone: [facility] 12-25-2023 13:25-0400 Systolic blood pressure 124 mm[Hg] DO Yoni Furlong Work Phone: [facility] 09-30-2023 16:29-0400 Body height 157.5 cm 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 APRNInternal Gaming Work Phone: [facility] [employer] [facility] 09-30-2023 16:29-0400 Body mass index (BMI) [Ratio] 34.42 kg/m2 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 APRN-SUBWAY TRAIN OPERATOR Work Phone: [facility] 09-30-2023 16:29-0400 Body temperature 99.19 [degF] Virginia SOLIS Work Phone: [employer] 09-30-2023 16:29-0400 Body weight 85.37 kg 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 APRN-SUBWAY TRAIN OPERATOR Work Phone: [facility] 09-30-2023 16:29-0400 Diastolic blood pressure 60 mm[Hg] 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 APRN-SUBWAY TRAIN OPERATOR Work Phone: [facility] 09-30-2023 16:29-0400 Heart rate 94 /min 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 APRNAssisteraSUBWAY TRAIN OPERATOR Work Phone: [facility] 09-30-2023 16:29-0400 SaO2% (BldA) [Mass fraction] 96 % 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 APRNAssisteraSUBWAY TRAIN OPERATOR Work Phone: [facility] 09-30-2023 16:29-0400 Systolic blood pressure 120 mm[Hg] 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 APRNAssisteraSUBWAY TRAIN OPERATOR Work Phone: [facility] 09-15-2023 16:00-0500 Body height 157.5 cm Yoni Furlong DO Work Phone: [facility] 09-15-2023 16:00-0500 Body mass index (BMI) [Ratio] 34.84 kg/m2 Yoni Furlong DO Work Phone: [facility] 09-15-2023 16:00-0500 Body temperature 98.91 [degF] Yoni Furlong DO Work Phone: [facility] 09-15-2023 16:00-0500 Body weight 86.41 kg Yoni Furlong DO Work Phone: [facility] 09-15-2023 16:00-0500 Diastolic blood pressure 50 mm[Hg] Yoni Furlong DO Work Phone: [facility] 09-15-2023 16:00-0500 Heart rate 80 /min Yoni Furlong DO Work Phone: [facility] 09-15-2023 16:00-0500 SaO2% (BldA) [Mass fraction] 96 % Yoni Furlong DO Work Phone: [facility] 09-15-2023 16:00-0500 Systolic blood pressure 130 mm[Hg] Yoni Furlong DO Work Phone: [facility] 08-07-2023 11:24-0500 Body temperature 98.2 [degF] DO Yoni Furlong Work Phone: [facility] 08-07-2023 11:24-0500 Body weight 89.35 kg DO Yoni Furlong Work Phone: [facility] 08-07-2023 11:24-0500 Diastolic blood pressure 70 mm[Hg] DO Yoni Furlong Work Phone: [facility] 08-07-2023 11:24-0500 Heart rate 88 /min DO Yoni Furlong Work Phone: [facility] 08-07-2023 11:24-0500 Respiratory rate 18 /min DO Yoni Furlong Work Phone: [facility] 08-07-2023 11:24-0500 SaO2% (BldA) [Mass fraction] 98 % DO Yoni Furlong Work Phone: [facility] 08-07-2023 11:24-0500 Systolic blood pressure 151 mm[Hg] DO Yoni Furlong Work Phone: [facility] 07-14-2023 13:32-0500 Body temperature 98.2 [degF] DO Yoni Furlong Work Phone: [facility] 07-14-2023 13:32-0500 Diastolic blood pressure 78 mm[Hg] DO Yoni Furlong Work Phone: [facility] 07-14-2023 13:32-0500 Heart rate 81 /min DO Yoni Furlong Work Phone: [facility] 07-14-2023 13:32-0500 Respiratory rate 18 /min DO Yoni Furlong Work Phone: [facility] 07-14-2023 13:32-0500 SaO2% (BldA) [Mass fraction] 97 % DO Yoni Furlong Work Phone: [facility] 07-14-2023 13:32-0500 Systolic blood pressure 113 mm[Hg] DO Yoni Furlong Work Phone: [facility] 03-24-2023 10:14-0400 Body height 160.02 cm DO Yoni Furlong Work Phone: [facility] 03-06-2023 13:49-0400 Body temperature 97.8 [degF] DO Yoni Furlong Work Phone: [facility] 03-06-2023 13:49-0400 Body weight 89.35 kg DO Yoni Furlong Work Phone: [facility] 03-06-2023 13:49-0400 Diastolic blood pressure 71 mm[Hg] DO Yoni Furlong Work Phone: [facility] 03-06-2023 13:49-0400 Heart rate 87 /min DO Yoni Furlong Work Phone: [facility] 03-06-2023 13:49-0400 Respiratory rate 16 /min DO Yoni Furlong Work Phone: [facility] 03-06-2023 13:49-0400 SaO2% (BldA) [Mass fraction] 94 % DO Yoni Furlong Work Phone: [facility] 03-06-2023 13:49-0400 Systolic blood pressure 139 mm[Hg] DO Yoni Furlong Work Phone: [facility] 01-27-2023 10:30-0400 Body temperature 97.5 [degF] Kimber Lacy Other [employer] Other 01-27-2023 10:30-0400 Body weight 87.54 kg Kimber Lacy Other [employer] Other 01-27-2023 10:30-0400 Diastolic blood pressure 80 mm[Hg] Kimber Lacy Other [employer] Other 01-27-2023 10:30-0400 SaO2% (BldA) [Mass fraction] 96 % Kimber Lacy Other [employer] Other 01-27-2023 10:30-0400 Systolic blood pressure 159 mm[Hg] Kimber Lacy Other [facility] [employer] Other 01-27-2023 10:23-0400 Body temperature 97.5 [degF] DO Yoni Furlong Work Phone: [facility] 01-27-2023 10:23-0400 Body weight 88.49 kg DO Yoni Furlong Work Phone: [facility] 01-27-2023 10:23-0400 Diastolic blood pressure 80 mm[Hg] DO Yoni Furlong Work Phone: [facility] 01-27-2023 10:23-0400 Heart rate 90 /min DO Yoni Furlong Work Phone: [facility] 01-27-2023 10:23-0400 Respiratory rate 18 /min DO Yoni Furlong Work Phone: [facility] 01-27-2023 10:23-0400 SaO2% (BldA) [Mass fraction] 96 % DO Yoni Furlong Work Phone: [facility] 01-27-2023 10:23-0400 Systolic blood pressure 159 mm[Hg] DO Yoni Furlong Work Phone: [facility] 12-30-2022 09:56-0400 Body weight 88.45 kg DO Yoni Furlong Work Phone: [facility] 12-30-2022 08:26-0400 Body temperature 97.8 [degF] DO Yoni Furlong Work Phone: [facility] 12-30-2022 08:26-0400 Body weight 88.45 kg DO Yoni Furlong Work Phone: [facility] 12-30-2022 08:26-0400 Diastolic blood pressure 81 mm[Hg] DO Yoni Furlong Work Phone: [facility] 12-30-2022 08:26-0400 Heart rate 86 /min DO Yoni Furlong Work Phone: [facility] 12-30-2022 08:26-0400 Respiratory rate 16 /min DO Yoni Furlong Work Phone: [facility] 12-30-2022 08:26-0400 SaO2% (BldA) [Mass fraction] 98 % DO Yoni Furlong Work Phone: [facility] 12-30-2022 08:26-0400 Systolic blood pressure 132 mm[Hg] DO Yoni Furlong Work Phone: [facility] 09-08-2022 11:09-0500 Body weight 90.2 kg DO Yoni Furlong Work Phone: [facility] 09-08-2022 09:52-0500 Body temperature 97.9 [degF] DO Yoni Furlong Work Phone: [facility] 09-08-2022 09:52-0500 Body weight 90.2 kg DO Yoni Furlong Work Phone: [facility] 09-08-2022 09:52-0500 Diastolic blood pressure 82 mm[Hg] DO Yoni Furlong Work Phone: [facility] 09-08-2022 09:52-0500 Heart rate 78 /min DO Yoni Furlong Work Phone: [facility] 09-08-2022 09:52-0500 Respiratory rate 20 /min DO Yoni Furlong Work Phone: [facility] 09-08-2022 09:52-0500 SaO2% (BldA) [Mass fraction] 97 % DO Yoni Furlong Work Phone: [facility] 09-08-2022 09:52-0500 Systolic blood pressure 137 mm[Hg] DO Yoni Furlong Work Phone: [facility] 08-11-2022 11:25-0500 Body weight 89.4 kg DO Yoni Furlong Work Phone: [facility] 08-11-2022 10:28-0500 Body height 160.02 cm DO Yoni Furlong Work Phone: [facility] 08-11-2022 10:28-0500 Body temperature 97.4 [degF] DO Yoni Furlong Work Phone: [facility] 08-11-2022 10:28-0500 Diastolic blood pressure 68 mm[Hg] DO Yoni Furlong Work Phone: [facility] 08-11-2022 10:28-0500 Heart rate 82 /min DO Yoni Furlong Work Phone: [facility] 08-11-2022 10:28-0500 Respiratory rate 20 /min DO Yoni Furlong Work Phone: [facility] 08-11-2022 10:28-0500 SaO2% (BldA) [Mass fraction] 98 % DO Yoni Furlong Work Phone: [facility] 08-11-2022 10:28-0500 Systolic blood pressure 132 mm[Hg] DO Yoni Furlong Work Phone: [facility] 06-23-2022 12:05-0500 Body weight 88.6 kg DO Yoni Furlong Work Phone: [facility] 06-23-2022 10:44-0500 Body temperature 97.9 [degF] DO Yoni Furlong Work Phone: [facility] 06-23-2022 10:44-0500 Body weight 88.6 kg DO Yoni Furlong Work Phone: [facility] 06-23-2022 10:44-0500 Diastolic blood pressure 74 mm[Hg] DO Yoni Furlong Work Phone: [facility] 06-23-2022 10:44-0500 Heart rate 80 /min DO Yoni Furlong Work Phone: [facility] 06-23-2022 10:44-0500 Respiratory rate 18 /min DO Yoni Furlong Work Phone: [facility] 06-23-2022 10:44-0500 SaO2% (BldA) [Mass fraction] 98 % DO Yoni Furlong Work Phone: [facility] 06-23-2022 10:44-0500 Systolic blood pressure 141 mm[Hg] DO Yoni Furlong Work Phone: [facility] 06-02-2022 10:29-0500 Body temperature 97.7 [degF] DO Yoni Furlong Work Phone: [facility] 06-02-2022 10:29-0500 Body weight 89.9 kg DO Yoni Furlong Work Phone: [facility] 06-02-2022 10:29-0500 Diastolic blood pressure 82 mm[Hg] DO Yoni Furlong Work Phone: [facility] 06-02-2022 10:29-0500 Heart rate 92 /min DO Yoni Furlong Work Phone: [facility] 06-02-2022 10:29-0500 Respiratory rate 16 /min DO Yoni Furlong Work Phone: [facility] 06-02-2022 10:29-0500 SaO2% (BldA) [Mass fraction] 97 % DO Yoni Furlong Work Phone: [facility] 06-02-2022 10:29-0500 Systolic blood pressure 150 mm[Hg] DO Yoni Furlong Work Phone: [facility] 05-02-2022 15:07-0400 Body weight 92.8 kg DO Yoni Furlong Work Phone: [facility] 05-02-2022 15:07-0400 Diastolic blood pressure 83 mm[Hg] DO Yoni Furlong Work Phone: [facility] 05-02-2022 15:07-0400 Heart rate 87 /min DO Yoni Furlong Work Phone: [facility] 05-02-2022 15:07-0400 Respiratory rate 20 /min DO Yoni Furlong Work Phone: [facility] 05-02-2022 15:07-0400 SaO2% (BldA) [Mass fraction] 98 % DO Yoni Furlong Work Phone: [facility] 05-02-2022 15:07-0400 Systolic blood pressure 146 mm[Hg] DO Yoni Furlong Work Phone: [facility] 04-28-2022 09:07-0400 Diastolic blood pressure 76 mm[Hg] DO Yoni Furlong Work Phone: [facility] 04-28-2022 09:07-0400 Heart rate 93 /min DO Yoni Furlong Work Phone: [facility] 04-28-2022 09:07-0400 Respiratory rate 18 /min DO Yoni Furlong Work Phone: [facility] 04-28-2022 09:07-0400 SaO2% (BldA) [Mass fraction] 95 % DO Yoni Furlong Work Phone: [facility] 04-28-2022 09:07-0400 Systolic blood pressure 148 mm[Hg] DO Yoni Furlong Work Phone: [facility] 04-28-2022 08:11-0400 Body height 157.48 cm DO Yoni Furlong Work Phone: [facility] 04-28-2022 08:11-0400 Body temperature 98.6 [degF] DO Yoni Furlong Work Phone: [facility] 04-28-2022 08:11-0400 Body weight 91.17 kg DO Yoni Furlong Work Phone: [facility] 04-21-2022 08:54-0400 Body height 160.02 cm DO Yoni Furlong Work Phone: [facility] 04-21-2022 08:54-0400 Body temperature 98 [degF] DO Yoni Furlong Work Phone: [facility] 04-21-2022 08:54-0400 Body weight 91.48 kg DO Yoni Furlong Work Phone: [facility] 04-21-2022 08:54-0400 Diastolic blood pressure 87 mm[Hg] DO Yoni Furlong Work Phone: [facility] 04-21-2022 08:54-0400 Heart rate 85 /min DO Yoni Furlong Work Phone: [facility] 04-21-2022 08:54-0400 Respiratory rate 20 /min DO Yoni Furlong Work Phone: [facility] 04-21-2022 08:54-0400 SaO2% (BldA) [Mass fraction] 97 % DO Yoni Furlong Work Phone: [facility] 04-21-2022 08:54-0400 Systolic blood pressure 161 mm[Hg] DO Yoni Furlong Work Phone: [facility] 10-25-2021 09:45-0400 Body temperature 98 [degF] MD Alex Trammell Work Phone: [facility] 10-25-2021 09:45-0400 Body weight 90.94 kg MD Alex Trammell Work Phone: [facility] 10-25-2021 09:45-0400 Diastolic blood pressure 70 mm[Hg] MD Alex Trammell Work Phone: [facility] 10-25-2021 09:45-0400 Heart rate 90 /min MD Alex Trammell Work Phone: [facility] 10-25-2021 09:45-0400 Respiratory rate 20 /min MD Alex Trammell Work Phone: [facility] 10-25-2021 09:45-0400 SaO2% (BldA) [Mass fraction] 98 % MD Alex Trammell Work Phone: [facility] 10-25-2021 09:45-0400 Systolic blood pressure 141 mm[Hg] MD Alex Trammell Work Phone: [facility] 10-07-2021 08:13-0400 Body temperature 98.1 [degF] DO Sly Benson II Work Phone: [facility] 10-07-2021 08:13-0400 Body weight 92.8 kg DO Sly Adamowicz II Work Phone: [facility] 10-07-2021 08:13-0400 Diastolic blood pressure 78 mm[Hg] DO Sly Adamowicz II Work Phone: [facility] 10-07-2021 08:13-0400 Heart rate 96 /min DO Sly Adamowicz II Work Phone: [facility] 10-07-2021 08:13-0400 Respiratory rate 20 /min DO Sly Adamowicz II Work Phone: [facility] 10-07-2021 08:13-0400 SaO2% (BldA) [Mass fraction] 97 % DO Sly Adamowicz II Work Phone: [facility] 10-07-2021 08:13-0400 Systolic blood pressure 144 mm[Hg] DO Sly Adamowicz II Work Phone: [facility] 10-07-2021 08:05-0400 Body height 160.02 cm DO Sly Adamowicz II Work Phone: [facility] 09-17-2021 15:09-0500 Body temperature 98.6 [degF] Yoni Prolong Work Phone: [facility] 4[facility] Work Phone: 09-17-2021 15:09-0500 Body weight 89.54 kg Yoni G Furlong Work Phone: AN[facility]Pedthfp[facility] 4607 Work Phone: 09-17-2021 15:09-0500 Diastolic blood pressure 81 mm[Hg] Yoni G Furlong Work Phone: KS[facility]zciekb[facility]wt[facility] 4600 Work Phone: 09-17-2021 15:09-0500 Heart rate 101 /min Yoni G Furlong Work Phone: [facility] 4608 Work Phone: 09-17-2021 15:09-0500 Respiratory rate 18 /min Yoni Larson Furlong Work Phone: JB[facility]zermcx[facility] 4603 Work Phone: 09-17-2021 15:09-0500 Systolic blood pressure 158 mm[Hg] Yoni Larson Furlong Work Phone: [facility]conv[facility]nb[facility] 4603 Work Phone: 01-22-2021 14:42-0400 Body weight 88.03 kg Yoni Larson Furlong Work Phone: ZB-Rvyaebr-Ewgnyhaq 150 Work Phone: 01-22-2021 14:42-0400 Diastolic blood pressure 84 mm[Hg] Yoni Larson Furlong Work Phone: HA-Qhxoyko-Bihfwhpm 150 Work Phone: 01-22-2021 14:42-0400 Heart rate 102 /min Yonijanee Prolong Work Phone: QD-Aldsqba-Hcmctvft 150 Work Phone: 01-22-2021 14:42-0400 SaO2% (BldA) [Mass fraction] 95 % Yoni G Furlong Work Phone: TH-Tdyrofr-Anpywxsw 150 Work Phone: 01-22-2021 14:42-0400 Systolic blood pressure 149 mm[Hg] Yoni Larson Furlong Work Phone: FI-Jqyqhxu-Bropkzut 150 Work Phone: 12-25-2020 15:23-0400 Body weight 89.36 kg Yoni Larson Furlong Work Phone: [facility] Work Phone: 12-25-2020 15:23-0400 Diastolic blood pressure 85 mm[Hg] Yoni G Furlong Work Phone: [facility] Work Phone: 12-25-2020 15:23-0400 Heart rate 105 /min Yoni G Furlong Work Phone: [facility] Work Phone: 12-25-2020 15:23-0400 SaO2% (BldA) [Mass fraction] 95 % Yoni G Furlong Work Phone: [facility] Work Phone: 12-25-2020 15:23-0400 Systolic blood pressure 163 mm[Hg] Yoni G Furlong Work Phone: [facility] Work Phone: 12-04-2020 15:07-0400 Diastolic blood pressure 84 mm[Hg] Yoni G Furlong Work Phone: [facility] Work Phone: 12-04-2020 15:07-0400 Heart rate 111 /min Yoni G Furlong Work Phone: [facility] SM Work Phone: 12-04-2020 15:07-0400 SaO2% (BldA) [Mass fraction] 98 % Yoni G Furlong Work Phone: [facility] SM Work Phone: 12-04-2020 15:07-0400 Systolic blood pressure 154 mm[Hg] Yoni G Furlong Work Phone: [facility] Work Phone: 11-27-2020 15:10-0400 Body weight 90.72 kg Yoni G Furlong Work Phone: [facility] Work Phone: 11-27-2020 15:10-0400 Diastolic blood pressure 79 mm[Hg] Yoni Muller Work Phone: [facility] Work Phone: 11-27-2020 15:10-0400 Heart rate 98 /min Yoni Muller Work Phone: [facility] Work Phone: 11-27-2020 15:10-0400 SaO2% (BldA) [Mass fraction] 96 % Yoni Muller Work Phone: [facility] Work Phone: 11-27-2020 15:10-0400 Systolic blood pressure 138 mm[Hg] Yoni Muller Work Phone: [facility] Work Phone: 1945 23:00-0500 >na< Quentin Fitzpatrick Dept. of Eleazar matology Encounters Encounter Date Encounter Type Care Provider Facility Start: 01-22-2024 Registered Recurring DO Yoni Prolong Work Phone: [facility] Work Phone: Start: 01-22-2024 End: 01-22-2024 ambulatory DO Yoni Hollowayng Work Phone: [facility] Work Phone: Start: 01-22-2024 End: 01-22-2024 Patient encounter procedure DO Yoni Prolong Work Phone: [facility] Work Phone: Start: 09-30-2023 End: 09-30-2023 Office outpatient visit 15 minutes 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 [employer] Work Phone: [facility] [...] hypertension with chronic kidney disease, stage III ([facility]) (Primary Dx); Hyperlipidemia, unspecified hyperlipidemia type; Malignant melanoma of left lower leg ([facility]); Class 2 severe obesity due to excess calories with serious comorbidity and body mass index (BMI) of 35.0 to 35.9 in adult Start: 09-08-2023 Refill Yoni hyatt DO Work Phone: [facility] Comment on above: Essential (primary) hypertension Start: 08-07-2023 Registered Recurring DO Yoni Furlong Work Phone: [facility] Work Phone: Start: 08-07-2023 End: 08-07-2023 Patient encounter procedure DO Yoni Furlong Work Phone: [facility] Work Phone: Start: 08-07-2023 End: 08-07-2023 ambulatory DO Yoni Furlong Work Phone: [facility] Work Phone: Start: 03-06-2023 End: 03-06-2023 ambulatory DO Yoni Furlong Work Phone: [facility] Work Phone: Start: 03-06-2023 End: 03-06-2023 Registered Recurring DO Yoni Furlong Work Phone: [facility] Work Phone: Start: 01-27-2023 Office outpatient vi sit 25 minutes Kimber Lacy [facility] Start: 01-27-2023 End: 01-27-2023 ambulatory DO Yoni Furlong Work Phone: [facility] Work Phone: Start: 01-27-2023 End: 01-27-2023 Registered Recurring DO Yoni Furlong Work Phone: [facility] Work Phone: Start: 12-30-2022 End: 12-30-2022 ambulatory DO Yoni Furlong Work Phone: [facility] Work Phone: Start: 12-30-2022 End: 12-30-2022 Registered Recurring DO Yoni Furlong Work Phone: [facility] Work Phone: Start: 12-30-2022 End: 12-30-2022 ambulatory DO Yoni Furlong Work Phone: [facility] Work Phone: Start: 12-30-2022 End: 12-30-2022 Registered Recurring DO Yoni Furlong Work Phone: [facility] Work Phone: Start: 10-03-2022 End: 10-04-2022 ambulatory SLY BENSON Facility:H1 Start: 09-08-2022 End: 09-08-2022 ambulatory DO Yoni Furlong Work Phone: [facility] Work Phone: Start: 09-08-2022 End: 09-08-2022 Registered Recurring DO Yoni Furlong Work Phone: [facility] Work Phone: Start: 09-05-2022 End: 09-06-[address] YONI MULLER Facility:H1 Start: 08-11-2022 End: 08-11-2022 ambulatory DO Yoni Furlong Work Phone: [facility] Work Phone: Start: 08-11-2022 End: 08-11-2022 Registered Recurring DO Yoni Furlong Work Phone: [facility] Work Phone: Start: 07-21-2022 End: 07-22-2022 ambulatory SLY BENSON Facility:H1 Start: 06-23-2022 End: 06-23-2022 ambulatory DO Yoni Furlong Work Phone: [facility] Work Phone: Start: 06-23-2022 End: 06-23-2022 Registered Recurring DO Yoni Furlong Work Phone: [facility] Start: 06-23-2022 End: 06-23-2022 ambulatory DO Yoni Furlong Work Phone: [facility] Work Phone: Start: 06-23-2022 End: 06-23-2022 Registered Recurring DO Yoni Furlong Work Phone: [facility] Start: 06-20-2022 End: 06-21-[address] YONI MULLER Facility:[facility]1 Start: 06-02-2022 End: 06-02-2022 ambulatory DO Yoni Furlong Work Phone: [facility] Work Phone: Start: 06-02-2022 End: 06-02-2022 Registered Recurring DO Yoni Furlong Work Phone: [facility] Start: 05-30-2022 End: 05-31-2022 ambulatory SLY BENSON Facility:H1 Start: 05-13-2022 End: 11-02-2022 ambulatory SLY BENSON Facility:[facility]1 Start: 05-10-2022 End: 05-11-2022 ambulatory SLY J DAMEONJANET Facility:[facility]1 Start: 05-02-2022 End: 05-02-2022 ambulatory DO Yoni Furlong Work Phone: [facility] Work Phone: Start: 05-02-2022 End: 05-02-2022 Registered Recurring DO Yoni Furlong Work Phone: [facility] Start: 04-28-2022 End: 04-28-2022 Admission to same day surgery center DO Yoni Furlong Work Phone: [facility] [place] Start: 04-28-2022 End: 04-28-2022 ambulatory DO Yoni Furlong Work Phone: [facility] Work Phone: Start: 04-21-2022 End: 04-21-2022 ambulatory DO Yoni Furlong Work Phone: [facility] Work Phone: Start: 04-21-2022 End: 04-21-2022 Registered Recurring DO Yoni Furlong Work Phone: [facility] Start: 03-26-2022 End: 03-26-2022 Patient encounter procedure DO Yoni Furlong Work Phone: [facility] [place] Start: 10-25-2021 End: 10-25-2021 Registered Recurring MD Alex Trammell Work Phone: [facility] Start: 10-10-2021 End: 10-10-2021 Patient encounter procedure DO Sly Benson II Work Phone: [facility] [place] Start: 10-07-2021 End: 10-07-2021 Registered Recurring DO Sly Benson II Work Phone: [facility] Start: 10-07-2021 Registered Recurring DO Clinton Benson II Work Phone: [facility] Start: 09-24-2021 AUDIT Yoni Holloway ng Work Phone: [facility] 4[facility] Work Phone: Start: 09-23-2021 Chart Update Yoni hyatt Work Phone: [facility] Work Phone: Start: 09-17-2021 Office outpatient ne w 30 minutes Yoni Muller Work Phone: [facility] 4528 Work Phone: Start: 09-17-2021 Office outpatient vi sit 15 minutes Yoni Muller Work Phone: JI-Novphtb-Aehmx Main Work Phone: Start: 01-22-2021 Office outpatient vi sit 15 minutes Yoni Muller Work Phone: AQ-Badjoob-Pjxmhfmu 150 Work Phone: Start: 01-12-2021 AUDIT Yoni hyatt Work Phone: [facility] Work Phone: Start: 12-25-2020 Office outpatient vi sit 25 minutes Yoni Muller Work Phone: JF-Zixburf-Zfoosupl 150 Work Phone: Start: 12-25-2020 Patient encounter procedure Yoni Muller Work Phone: [facility] Work Phone: Start: 12-17-2020 AUDIT Yoni hyatt Work Phone: [facility] Work Phone: Start: 12-04-2020 FUV, Provider: Alex Trammell, Status: Pen, Time: 3:00 PM Yoni Muller Work Phone: [facility] Work Phone: Start: 12-04-2020 Patient encounter procedure Yoni Muller Work Phone: [facility] Work Phone: Start: 11-27-2020 Postop follow up vis it related to original px Yoni Muller Work Phone: [facility] Work Phone: Start: 11-27-2020 Quentin Fitzpatrick Dep t. of Dermatology Start: 11-13-2020 [facility]ish shoplymarian Dep t[facility] of Dermatology Start: 10-23-2020 [facility]lymarian Dep t[facility] of Dermatology Procedures Date Procedure Procedure Detail Performing Clinician Start: 01-20-2024 Computed tomography of abdomen and pelvis with contrast DO Yoni Furlong Work Phone: Start: 01-20-2024 CT of thorax with contrast DO Yoni Furlong Work Phone: Start: 09-30-2023 Adult depression screening assessment 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 [employer]IN OPERATOR Work Phone: Start: 09-15-2023 Adult depression [...] Start: 02-06-2023 Adult depression screening assessment Yoni NuvoMedlong DO Work Phone: Start: 10-31-2022 Computed tomography of abdomen and pelvis with contrast DO Yoni NuvoMedlong Work Phone: Start: 10-31-2022 CT of thorax with contrast DO Yoni NuvoMedlong Work Phone: Start: 08-08-2022 Computed tomography of abdomen and pelvis with contrast DO Yoni NuvoMedlong Work Phone: Start: 08-08-2022 CT of thorax with contrast DO [employer]oniUnited [employer] Work Phone: Start: 04-28-2022 Aspiration DO Yoni NuvoMedlong Work Phone: Start: 03-26-2022 Computed tomography of abdomen and pelvis with contrast DO YoniUnited Toxicologylong Work Phone: Start: 03-26-2022 CT of thorax with contrast DO Yoni NuvoMedlong Work Phone: Start: 10-10-2021 Computed tomography of abdomen and pelvis with contrast DO Sly Adamowicz II Work Phone: Start: 10-10-2021 CT of thorax with contrast DO Sly Adamowicz II Work Phone: Start: 11-27-2020 Quentin Fitzpatrick Start: 11-13-2020 Quentin Fitzpatrick Start: 10-23-2020 Quentin Fitzpatrick Counseling Kimber Ken Plan of Treatment Date Care Activity Detail Author Start: 09-29-2024 Adult BMI Screening Adult BMI Screen ing [facility] Start: 09-29-2024 Depression Screening Depression Scre ening [facility] Start: 09-29-2024 Fall Risk Screening Fall Risk Screen ing [facility] Start: 09-29-2024 Tobacco Screening Tobacco Screening [facility] Start: 09-14-2024 Adult BMI Screening Adult BMI Screen ing [facility] Start: 09-14-2024 Depression Screening Depression Scre ening [facility] Start: 09-14-2024 Fall Risk Screening Fall Risk Screen ing [facility] Start: 09-14-2024 Tobacco Screening Tobacco Screening [facility] Start: 03-17-2024 End: 03-17-2024 Patient encounter procedure 03/17/2024 4:15 PM EDT Office Visit [facility] [address] [place] [address] Yoni Muller, DO [address], [place] [address] [facility] Start: 02-07-2024 Administration of va ricella zoster vaccine Zoster (Shingles) Vaccine (1 of 2) [facility] Comment on above: Postponed from 10/02 (Patient Refused) Start: 02-07-2024 Adult BMI Screening Adult BMI Screen ing [facility] Start: 02-07-2024 Depression Screening Depression Scre ening [facility] Start: 02-07-2024 DTaP,Tdap and Td Vac cines (1 - Tdap) DTaP,Tdap and Td Vaccines (1 - Tdap) [facility] Comment on above: Postponed from 10/02 (Patient Refused) Start: 02-07-2024 Tobacco Screening Tobacco Screening [facility] Start: 01-22-2024 [facility] Start: 01-11-2024 Medicare Annual Well ness Visit Medicare Annual Wellness Visit [facility] Comment on above: Postponed from 10/02 (Patient Refused) Start: 12-25-2023 [facility] Start: 12-25-2023 [facility] Start: 11-27-2023 [facility] Start: 10-30-2023 [facility] Start: 10-30-2023 [facility] Start: 10-11-2023 Influenza vaccination Influenza Vacc ine [facility] Comment on above: Postponed from 03/13 (Patient Refused) Start: 2023 [facility] Start: 2023 [facility] Start: 09-15-2023 End: 09-15-2023 Patient encounter procedure 09/15/2023 4:00 PM EST Office Visit [facility] [address] [place] [address] Yoni Muller DO [address], [place] [address] [facility] Start: 09-04-2023 [facility] Start: 08-07-2023 [facility] Start: 08-07-2023 [facility] Start: 08-06-2023 End: 08-07-2023 [facility] Start: 08-06-[address] [facility] Start: 07-14-2023 [facility] Start: 07-14-2023 [facility] Start: 06-17-2023 Fall Risk Screening Fall Risk Screen ing [facility] Start: 06-16-2023 [facility] Start: 05-19-2023 [facility] Start: 04-21-2023 [facility] Start: 03-24-2023 [facility] Start: 03-13-2023 COVID-19 Vaccine ( season) COVID-19 Vaccine () [facility] Start: 03-13-2023 Influenza vaccination Influenza Vacc ine [facility] Start: 02-24-2023 [facility] Start: 01-27-2023 [facility] Start: 01-27-2023 [facility] Start: 12-30-[address] [facility] Start: 12-30-2022 [facility] Start: 12-30-2022 [facility] Start: 12-25-2022 [facility] Start: 12-01-2022 [facility] Start: 11-03-2022 [facility] Start: 10-06-2022 [facility] Start: 09-08-2022 [facility] Start: 09-08-2022 [facility] Start: 08-11-2022 [facility] Start: 07-23-2022 [facility] Start: 06-23-2022 [facility] Start: 06-23-[address] [facility] Start: 06-23-2022 [facility] Start: 06-02-2022 [facility] Start: 05-12-2022 End: 05-12-2022 [facility] Start: 05-12-2022 [facility] Start: 04-28-2022 [facility] Start: 04-28-2022 [facility] Start: 04-28-2022 [facility] Start: 02-19-2021 FUV, Provider: Alex Trammell, Status: Pen, Time: 3:00 PM FUV, Provider: Alex Trammell, Status: Pen, Time: 3:00 PM SM-Jwchkep-Youqtygz 150 Work Phone: Start: 01-22-2021 FUV, Provider: Alex Trammell, Status: Pen, Time: 3:00 PM FUV, Provider: Alex Trammell, Status: Pen, Time: 3:00 PM TM-Egojnhu-Mfokhjtu 150 Work Phone: Start: 12-25-2020 FUV, Provider: Alex Trammell, Status: Pen, Time: 3:00 PM FUV, Provider: Alex Trammell, Status: Pen, Time: 3:00 PM [facility] Work Phone: Start: 1963 Adult BMI Follow Up Plan [facility] hormone [facility] Adrenocorticotropic hormone measurement [facility] Work Phone: Adrenocorticotropic hormone measurement [facility] Adrenocorticotropic hormone measurement [facility] Adrenocorticotropic hormone measurement [facility] Adrenocorticotropic hormone measurement [facility] Adrenocorticotropic hormone measurement [facility] Adrenocorticotropic hormone measurement [facility] Adrenocorticotropic hormone measurement [facility] Adrenocorticotropic hormone measurement [facility] Adrenocorticotropic hormone measurement [facility] Basophils [#/volume] in Blood by Automated count [facility] Basophils/100 leukoc ytes in Blood by Automated count [facility] Blood chemistry [facility] Blood chemistry [facility] Comprehensive metabo lic 1999 panel - Serum or Plasma [facility] Comprehensive metabo lic 1999 panel - Serum or Plasma [facility] Comprehensive metabo lic 1999 panel - Serum or Plasma [facility] Comprehensive metabo lic 1999 panel - Serum or Plasma [facility] Comprehensive metabo lic 1999 panel - Serum or Plasma [facility] Comprehensive metabo lic 1999 panel - Serum or Plasma [facility] Comprehensive metabo lic 1999 panel - Serum or Plasma [facility] Comprehensive metabo lic 1999 panel - Serum or Plasma [facility] Comprehensive metabo lic 1999 panel - Serum or Plasma [facility] Comprehensive metabo lic 1999 panel - Serum or Plasma [facility] Comprehensive metabo lic 1999 panel - Serum or Plasma [facility] Computed tomography for radiotherapy planning [facility] Cortisol [Mass/volum e] in Serum or Plasma [facility] Cortisol [Mass/volum e] in Serum or Plasma [facility] Cortisol [Mass/volum e] in Serum or Plasma [facility] Work Phone: Cortisol [Mass/volum e] in Serum or Plasma [facility] Cortisol [Mass/volum e] in Serum or Plasma [facility] CT Abdomen and Pelvi s W contrast IV [facility] CT Abdomen and Pelvi s W contrast IV [facility] CT Abdomen and Pelvi s W contrast IV [facility] CT Abdomen and Pelvi s W contrast IV [facility] CT Abdomen and Pelvi s W contrast IV [facility] CT Chest W contrast IV [facility] CT Chest W contrast IV [facility] CT Chest W contrast IV [facility] CT Chest W contrast IV [facility] CT Chest W contrast IV [facility] Eosinophils/100 leuk ocytes in Blood by Automated count [facility] Erythrocyte distribu tion width [Ratio] by Automated count [facility] Erythrocyte sediment ation rate by Photometric method [facility] Erythrocytes [#/volu me] in Blood [facility] Hematocrit [Volume F raction] of Blood [facility] Hemoglobin [Mass/vol ume] in Blood [facility] Hepatic function panel [facility] Hepatic function panel [facility] Homogenous nuclear A b pattern [Titer] in Serum [facility] Work Phone: Lactate dehydrogenas e [Enzymatic activity/volume] in Unspecified specimen [facility] Lactate dehydrogenas e [Enzymatic activity/volume] in Unspecified specimen [facility] Lactate dehydrogenas e [Enzymatic activity/volume] in Unspecified specimen [facility] Lactate dehydrogenas e [Enzymatic activity/volume] in Unspecified specimen [facility] Lactate dehydrogenas e [Enzymatic activity/volume] in Unspecified specimen [facility] Leukocytes [#/volume ] corrected for nucleated erythrocytes in Blood by Automated coun [facility] Leukocytes [#/volume ] in Blood [facility] Lipase measurement [facility] Lipase measurement [facility] Lipase measurement [facility] Lymphocytes [#/volum e] in Blood by Automated count [facility] Lymphocytes/100 leuk ocytes in Blood by Automated count [facility] MCH [Entitic mass] b y Automated count [facility] MCHC [Mass/volume] b y Automated count [facility] MCV [Entitic volume] by Automated count [facility] Monocytes [#/volume] in Blood by Automated count [facility] Monocytes/100 leukoc ytes in Blood by Automated count [facility] Neutrophils [#/volum e] in Blood by Automated count [facility] Neutrophils/100 leuk ocytes in Blood by Automated count [facility] Nuclear Ab [Titer] in Serum [facility] Work Phone: Nucleated erythrocyt es [Presence] in Blood by Automated count [facility] Patient Education [facility] Work Phone: Platelet mean volume [Entitic volume] in Blood by Automated count [facility] Platelets [#/volume] in Blood [facility] Thyrotropin [Units/v olume] in Serum or Plasma [facility] Thyrotropin [Units/v olume] in Serum or Plasma [facility] Thyrotropin [Units/v olume] in Serum or Plasma [facility] Thyrotropin [Units/v olume] in Serum or Plasma [facility] Thyrotropin [Units/v olume] in Serum or Plasma [facility] Thyrotropin [Units/v olume] in Serum or Plasma [facility] Thyrotropin [Units/v olume] in Serum or Plasma [facility] Thyroxine (T4) free [Mass/volume] in Serum or Plasma [facility] Thyroxine (T4) free [Mass/volume] in Serum or Plasma [facility] Work Phone: Thyroxine (T4) free [Mass/volume] in Serum or Plasma [facility] Thyroxine (T4) free [Mass/volume] in Serum or Plasma [facility] Thyroxine (T4) free [Mass/volume] in Serum or Plasma [facility] Thyroxine (T4) free [Mass/volume] in Serum or Plasma [facility] Ultrasonic guidance for needle biopsy [facility] Immunizations Immunization Date Immunization Notes Care Provider [facility] 1945 pneumococcal conjuga te vaccine, 7 valent Quentin Fitzpatrick [facility] Payers Date Payer Category Payer Self-pay [id number] 2022 Medicare [id number] Private Health Insurance [id number] 1945 Unknown [id number] 1945 Unknown [id number] 1945 Unknown [id number] 1945 Unknown [id number] 1945 Unknown [id number] 1945 Unknown [id number] 1945 Unknown [id number] 1945 Unknown [id number] Unknown Unknown HCAP/HFA/FAP Active [id number] Unknown [id number] Unknown [id number] Social History Date Type Detail Facility Start: 10-23-2020 Dept. of Dermatology Start: 1945 Sex Assigned At Female [facility] Start: 10-07-2021 End: 03-06-2023 Tobacco smoking status NHIS Never smoked tobacco (finding) [facility] Start: 06-17-2022 End: 09-30-2023 Sex Assigned At [employer] Other Start: 06-17-2022 Tobacco use and exposure Smokeless tobacco non-user [facility] Start: 02-06-2023 End: 09-30-2023 Alcohol intake Current drinker of alcohol (finding) [facility] Start: 06-17-2022 End: 09-30-2023 History of Social function [facility] Do you belong to any clubs or organizations such as rastafarian groups, unions, fraternal or athletic groups, or school groups? Yes [facility] Are you now , , , , never or living with a partner? [facility] How often to you hav e a drink containing alcohol? Monthly or less [facility] How many standard dr inks containing alcohol do you have on a typical day? 1 or 2 [facility] How often do you hav e 6 or more drinks on 1 occasion? Never [facility] How hard is it for y ou to pay for the very basics like food, housing, medical care, and heating Not hard at all [facility] Do you feel stress - tense, restless, nervous, or anxious, or unable to sleep at night because your mind is troubled all the time - these days [OSQ] Only a little [facility] Start: 06-17-2022 Alcohol Comment rarely [facility] [facility] Start: 1945 Sex Assigned At Not on file [facility] Has the electric, Widbook s, oil, or water company threatened to shut off services in your home in past 12Mo No [facility] Goals Date Patient Goal Desired Activity /State Clinical Notes 12-04-2012 to 09-30-2023 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, ANTOINETTE-SUBWAY TRAIN OPERATOR - 09/30/2023 4:00 PM Madonna Muller DO - 09/15/2023 4:00 PM EST Note Date & Type Note Facility 09-30-2023 History of Present illness Narrative [place] [address] Patient: Theresa Luu Date of : 1945 [...] next 48 hrs so she went to [facility] ER on 09/23/23. ER placed a [...] list. Past Medical History: Diagnosis Date Cancer ([facility]) Hyperlipidemia Hypertension Obesity Past Surgical [...] to see ortho. IRMA MARTINES APRN-CNP 10/04/23 1239 documented in this encounter [facility] [employer] 09-15-2023 History of Present illness Narrative Subjective [...] hypertension with chronic kidney disease, stage III ([facility]) - Basic Metabolic Panel; Future - CBC; Future - Magnesium; Future - Parathyroid Hormone, intact; Future - Phosphorus; Future - Vitamin D 25 hydroxy; Future - Uric acid; Future Her blood pressure is essentially at goal. Her stage 3 chronic kidney disease was discussed. She is using Advil qavw-qxe-lsubgye and I recommended she use Tylenol instead to help protect her kidneys. She was given a written note with these instructions. Check chronic kidney disease labs. Hyperlipidemia, unspecified hyperlipidemia type - Lipid panel; Future Check lipids. Malignant melanoma of left lower leg ([facility]) Follow up with specialists as [...] and high cholesterol. documented in this encounter [employer] 02-13-2023 Progress note Note Date/Time January 27, 2023 3:58pm [facility] [address] [place] [address] Progress Note Signed Patient: Theresa Luu MR#: [id number] : 1945 Acct:[id number] Age/Sex: 77 / F Adm Date: 3 Loc: XT Room: Type: [facility] Attending Dr: Sly Benson II DO Copies to: ~ Date of Service: 01/27/2023 Subjective History of Present Illness HPI: Madison is seen during immunotherapy today and we continue our discussion of goals of care/advance care planning. 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 [employer] Other 06-20-2023 Progress note Author Senia Montez [facility] December 30, 2022 11:06am Note Date/Time December 30, 2022 8:35 am [facility] [place] [place] [address] Hem/Onc Follow Up Note - OP Signed Patient: Theresa Luu MR#: [id number] : 1945 Acct:[id number] Age/Sex: 77 / F Type: REG RCR [...] leg melanoma removed by Dr. Trammell at [facility] in November 162020 with sentinel node biopsy [...] and has CT scans scheduled for at [facility]. She is doing well, no major [...] for coordination of care (as documented) and dyvy-ft-jtaf counseling of patient and/or family. [facility] - Medical History Medical History: [...] By: <Electronically signed by ANTOINETTE Montez> 12/30/22 1105 [facility] Work Phone: 1(594) 537-852104-24-2023 Progress note Author Sly Benson [facility] November 03, 2022 10:27am Note Date/Time November 03, 2022 10: 22am [facility] [place] [address] Hem/Onc Follow Up Note - OP Signed Patient: Theresa Luu MR#: [id number] : 1945 Acct:[id number] Age/Sex: 77 / F Type: REG RCR [...] Up Instructions: cont monthly nivolumab. f/u with FASHION EDITOR in 2 months. cbc, cmp, tsh monthly. [...] leg melanoma removed by Dr. Trammell at [facility] in November 162020 with sentinel node biopsy [...] and has CT scans scheduled for at [facility]. She is doing well, no major [...] for coordination of care (as documented) and zihu-aw-kgvn counseling of patient and/or family. [facility] - Medical History Medical History: [...] % (Auto) 59.6, Lymph % (Auto) 26.5, Assumption % (Auto) 11.2, Eos % (Auto) 1.8, Baso % (Auto) 0.9, Nucleat RBC Rel Count 0.0, Neut # (Auto) 4.0, Lymph # (Auto) 1.8, Assumption # (Auto) 0.8, Eos # (Auto) 0.1, [...] by Sly Benson II, DO> 11/03/22 1027 [facility] Work Phone: 1([phone]) 138-729003-27-2023 Progress note Author Zenobia Parker [facility] October 06, 2022 11:42am Note Date/Time October 06, 2022 11: 28am [facility] at [address] [address] Hem/Onc Follow Up Note - OP Signed Patient: Theresa Luu MR#: [id number] : 1945 Acct:[id number] Age/Sex: 77 / F Type: REG RCR [...] leg melanoma removed by Dr. Trammell at [facility] in November 162020 with sentinel node biopsy [...] and has CT scans scheduled for at [facility]. She is doing well, no major [...] review of systems is negative. [facility] - Medical History Medical History: [...] for coordination of care (as documented) and fvnw-ck-oihz counseling of patient and/or family. Dictated By: Zenobia Parker APRN DD/ 112 Signed By: <Electronically signed by ANTOINETTE Parker> 10/06/22 1142 [facility] Work Phone: 1(118) 400-447003-20-2023 Progress note Author Bebeto Pandya [facility] September 29, 2022 1:11pm Note Date/Time September 29, 2022 9:[address] [place] [address] [place] [address] Rad Onc Follow Up Note - OP Signed Patient: Theresa Luu MR#: [id number] : 1945 Acct:[id number] Age/Sex: 76 / F Type: REG RCR [...] a left lower leg melanoma removed at [facility] in November 162020 with sentinel node biopsy [...] get her first maintenance dose of the Olympia on August 11, [address]. [address] [...] signed by Bebeto Pandya MD> 09/29/22 1311 [facility] Work Phone: 1(273) 507-114702-27-2023 Progress note Author Sly Benson [facility] September 08, 2022 10:18am Note Date/Time September 08, 2022 10:08am [facility] at [address] [address] Hem/Onc Follow Up Note - OP Signed Patient: Theresa Luu MR#: [id number] : 1945 Acct:[id number] Age/Sex: 76 / F Type: REG RCR [...] leg melanoma removed by Dr. Trammell at [facility] in November 162020 with sentinel node biopsy [...] and has CT scans scheduled for at [facility]. She is doing well, no major [...] for coordination of care (as documented) and wroo-pc-hzcs counseling of patient and/or family. [facility] - Medical History Medical History: [...] by Sly Benson II, DO> 09/08/22 1018 [facility] Work Phone: 1([phone]) 287-586601-31-2023 Consult note Author Bebeto Pandya [facility] August 12, 2022 1:39pm Note Date/Time August 12, 2022 8 :51am [facility] [place] [place] [address] Rad Onc Consult Note - OP Signed Patient: Theresa Luu MR#: [id number] : 1945 Acct:[id number] Age/Sex: 76 / F Type: REG RCR Copies to: DO Alex Acuña MD, II, DO~ Assessment & Plan (1) Inguinal adenopathy Plan: CT simulation-plan for palliative radiation to the left inguinal [id number] Luis in 5 fractions delivered every other [...] a left lower leg melanoma removed at [facility] in November 162020 with sentinel node biopsy [...] get her first maintenance dose of the Olympia on August 11, 2022. Her repeat CT [...] denies any other pelvic complaints. [facility] - Medical History Medical History: [...] <Electronically signed by Bebeto Pandya MD> 08/12/22 1330 [facility] Work Phone: 1(199) 851-308101-30-2023 Progress note Author Sly Benson [facility] August 11, 2022 11:03am Note Date/Time August 11, 2022 1 0:48am [facility] [place] [place] [address] Hem/Onc Follow Up Note - OP Signed Patient: Theresa Luu MR#: [id number] : 1945 Acct:[id number] Age/Sex: 76 / F Type: REG RCR [...] leg melanoma removed by Dr. Trammell at [facility] in November 162020 with sentinel node biopsy [...] and has CT scans scheduled for at [facility]. She is doing well, no major [...] maybe 3 days. worse after hot showers. [employer] SVl really works for this. 08/11/22 She is [...] for coordination of care (as documented) and wnem-hq-noeo counseling of patient and/or family. [facility] - Medical History Medical History: [...] % (Auto) 58.6, Lymph % (Auto) 29.6, Assumption % (Auto) 9.0, Eos % (Auto) 2.1, Baso % (Auto) 0.7, Nucleat RBC Rel Count 0.1, Neut # (Auto) 4.4, Lymph # (Auto) 2.2, Assumption # (Auto) 0.7, Eos # (Auto) 0.2, Baso # (Auto) 0.1 - Home Medications and Allergies Allergies/Adverse Reactions: Allergies Penicillins Allergy (Verified 06/23/22 10:44) Unknown Reaction Home Medications: Home Medications hydrochlorothiazide 25 mg tablet 25 mg PO DAILY 10/04/21 [History Confirmed 08/11/22] rosuvastatin 10 mg tablet 10 mg PO DAILY 10/04/21 [History Confirmed 08/11/22] Dictated By: lSy Benson II, DO DD/ 1046 Signed By: <Electronically signed by Sly Benson II, DO> 08/11/22 1103 [facility] Work Phone: 1([phone]) 446-141112-12-2022 Progress note Author Sly Benson [facility] June 23, 2022 11:22am Note Date/Time June 23, 2022 11:18am [facility] at [place] [id number] Hem/Onc Follow Up Note - OP Signed Patient: Theresa Luu MR#: [id number] : 1945 Acct:[id number] Age/Sex: 76 / F Type: REG RCR [...] leg melanoma removed by Dr. Trammell at [facility] in November 162020 with sentinel node biopsy [...] and has CT scans scheduled for at [facility]. She is doing well, no major [...] for coordination of care (as documented) and yass-or-acsz counseling of patient and/or family. [facility] - Medical History Medical History: [...] by Sly Benson II, DO> 06/23/22 1122 [facility] Work Phone: 1([phone]) 467-477712-12-2022 Progress note Author Sly Benson [facility] June 23, 2022 11:22am Note Date/Time June 23, 2022 11:18am [facility] [place] [place] [address] Hem/Onc Follow Up Note - OP Signed Patient: Theresa Luu MR#: [id number] : 1945 Acct:[id number] Age/Sex: 76 / F Type: REG RCR [...] leg melanoma removed by Dr. Trammell at [facility] in November 162020 with sentinel node biopsy [...] and has CT scans scheduled for at [facility]. She is doing well, no major [...] for coordination of care (as documented) and dpiq-qj-qpyl counseling of patient and/or family. [facility] - Medical History Medical History: [...] by Sly Benson II, DO> 06/23/22 1122 [facility] Work Phone: 1([phone]) 685-293011-21-2022 Progress note Author Zenobia Parker [facility] June 02, 2022 11:05am Note Date/Time June 02, 2022 11:01am [facility] at [address] [address] Hem/Onc Follow Up Note - OP Signed Patient: Theresa Luu MR#: [id number] : 1945 Acct:[id number] Age/Sex: 76 / F Type: REG RCR Copies to: Yoni MullerDO Alex MD~ Subjective Date/Time of Service: Date of [...] leg melanoma removed by Dr. Trammell at [facility] in November 162020 with sentinel node biopsy [...] and has CT scans scheduled for at [facility]. She is doing well, no major medical issues this year once the wound vac was removed from her leg. 4/18/[address] imaging from October [...] for coordination of care (as documented) and xsyp-uz-ggoh counseling of patient and/or family. Dictated By: Zenobia Parker APRN DD/ 1058 Signed By: <Electronically signed by ANTOINETTE Parker> 06/02/22 1108 [facility] Work Phone: 1(716) 938-551511-21-2022 Progress note Author Zenobia Parker [facility] June 02, 2022 11:05am Note Date/Time June 02, 2022 11:01am [facility] [place] [id number] Hem/Onc Follow Up Note - OP Signed Patient: Theresa Luu MR#: [id number] : 1945 Acct:[id number] Age/Sex: 76 / F Type: REG RCR [...] leg melanoma removed by Dr. Trammell at [facility] in November 162020 with sentinel node biopsy [...] and has CT scans scheduled for at [facility]. She is doing well, no major [...] review of systems is negative. [facility] - Medical History Medical History: [...] for coordination of care (as documented) and akfj-iu-jjtl counseling of patient and/or family. Dictated By: Zenobia Parker APRN DD/ 1058 Signed By: <Electronically signed by ANTOINETTE Parker> 06/02/22 1104 [facility] Work Phone: 1(348) 922-337910-21-2022 Progress note Author Sly Benson [facility] May 02, 2022 4:01pm Note Date/Time May 02, 2022 3 :52pm [facility] [place] [place] [address] Hem/Onc Follow Up Note - OP Signed Patient: Theresa Luu MR#: [id number] : 1945 Acct:[id number] Age/Sex: 76 / F Type: REG RCR [...] leg melanoma removed by Dr. Trammell at [facility] in November 162020 with sentinel node biopsy [...] and has CT scans scheduled for at [facility]. She is doing well, no major [...] for coordination of care (as documented) and dohi-yt-hksq counseling of patient and/or family. [facility] - Medical History Medical History: [...] by Sly Benson II, DO> 05/02/22 1601 [facility] Work Phone: 1(641) 783-264410-21-2022 Progress note Author Sly Benson [facility] May 02, 2022 4:01pm Note Date/Time May 02, 2022 3 :52pm [facility] [place] [place] [address] Hem/Onc Follow Up Note - OP Signed Patient: Theresa Luu MR#: [id number] : 1945 Acct:[id number] Age/Sex: 76 / F Type: REG RCR [...] leg melanoma removed by Dr. Trammell at [facility] in November 162020 with sentinel node biopsy [...] and has CT scans scheduled for at [facility]. She is doing well, no major [...] for coordination of care (as documented) and jhvv-kd-nocl counseling of patient and/or family. [facility] - Medical History Medical History: [...] by Sly Benson II, DO> 05/02/22 1601 [facility] Work Phone: [phone] 148-718610-15-2022 Progress note Author Sly Benson [facility] April 26, 2022 11:51am Note Date/Time April 21, 2022 9 :31am [facility] [place] [place] [address] Hem/Onc Follow Up Note - OP Signed Patient: Theresa Luu MR#: [id number] : 1945 Acct:[id number] Age/Sex: 76 / F Type: REG RCR [...] doses per trial Cornelius et neal NEJ 2019 Repeat imaging in September 2021 showed [...] leg melanoma removed by Dr. Trammell at [facility] in November 162020 with sentinel node biopsy [...] and has CT scans scheduled for at [facility]. She is doing well, no major [...] for coordination of care (as documented) and hyou-pm-zmzf counseling of patient and/or family. [facility] - Medical History Medical History: [...] signed by Sly Benson II, DO> 04/26/22 1153 [facility] Work Phone: 1([phone]) 818-789310-15-2022 Progress note Author Sly Benson [facility] April 26, 2022 11:51am Note Date/Time April 21, 2022 9 :31am [facility] [place] [address] Hem/Onc Follow Up Note - OP Signed Patient: Theresa Luu MR#: [id number] : 1945 Acct:[id number] Age/Sex: 76 / F Type: REG RCR [...] leg melanoma removed by Dr. Trammell at [facility] in November 162020 with sentinel node biopsy [...] and has CT scans scheduled for at [facility]. She is doing well, no major [...] for coordination of care (as documented) and ozag-gg-tzld counseling of patient and/or family. [facility] - Medical History Medical History: [...] by Sly Benson II, DO> 04/26/22 1151 [facility] Work Phone: [phone]) 150-685104-25-2022 Progress note Author Sly Benson [facility] November 04, 2021 7:49pm Note Date/Time October 25, 2021 9:5 8am [facility] [place] [id number] Hem/Onc Follow Up Note - OP Signed Patient: Theresa Luu MR#: [id number] : 1945 Acct:[id number] Age/Sex: 76 / F Type: REG RCR [...] leg melanoma removed by Dr. Trammell at [facility] in November 162020 with sentinel node biopsy [...] and has CT scans scheduled for at [facility]. She is doing well, no major [...] for coordination of care (as documented) and srvi-pi-mwtr counseling of patient and/or family. [facility] - Medical History Medical History: [...] signed by Sly Benson II, DO> 11/04/211948 [facility] Work Phone: 1(658) 737-236204-25-2022 Progress note Author Sly Benson [facility] November 04, 2021 7:49pm Note Date/Time October 25, 2021 9:5 8am [facility] at [address] [address] Hem/Onc Follow Up Note - OP Signed Patient: Theresa Luu MR#: [id number] : 1945 Acct:[id number] Age/Sex: 76 / F Type: REG RCR Copies to: Yoni Larson Yohana,DO Alex Trammell MD~ Date of Service: 10/25/2021 [...] leg melanoma removed by Dr. Trammell at [facility] in November 162020 with sentinel node biopsy [...] and has CT scans scheduled for at [facility]. She is doing well, no major [...] for coordination of care (as documented) and gxud-aq-ovxq counseling of patient and/or family. [facility] - Medical History Medical History: [...] signed by Sly Benson II, DO> 11/04/211948 [facility] Work Phone: 1([phone]) 141-885603-28-2022 Progress note Author Sly Benson [facility] October 07, 2021 8:58am Note Date/Time October 07, 2021 8:2 8am [facility] [place] [address] Hem/Onc Follow Up Note - OP Signed Patient: Theresa Luu MR#: [id number] : 1945 Acct:[id number] Age/Sex: 76 / F Type: REG RCR [...] leg melanoma removed by Dr. Trammell at [facility] in November 162020 with sentinel node biopsy [...] and has CT scans scheduled for at [facility]. She is doing well, no major [...] for coordination of care (as documented) and mjyt-ag-tlux counseling of patient and/or family. [facility] - Medical History Medical History: [...] signed by Sly Benson II, DO> 10/07/21857 [facility] Work Phone: 1(384) 466-503003-28-2022 Progress note Author Sly Benson [facility] October 07, 2021 8:58am Note Date/Time October 07, 2021 8:2 8am [facility] at [address] [address] Hem/Onc Follow Up Note - OP Signed Patient: Theresa Luu MR#: [id number] : 1945 Acct:[id number] Age/Sex: 76 / F Type: REG RCR [...] leg melanoma removed by Dr. Trammell at [facility] in November 162020 with sentinel node biopsy [...] and has CT scans scheduled for at [facility]. She is doing well, no major [...] for coordination of care (as documented) and uliu-cd-yosc counseling of patient and/or family. [facility] - Medical History Medical History: [...] by Sly Benson II, DO> 10/07/21 0858 [facility] Work Phone: 1(123) 544-165805-07-2021 NotePROCEDURE DETAILS Preoperative Diagnosis: Melanoma of lower limb, C43.70 Postoperative Diagnosis: left lower leg me\lanoma Surgeon: Alex Trammell Resident/Fellow/Other Director Money: Bambi Ray Muhammad Procedure: 1. WIDE LOCAL EXCISION MALIGNANT MELANOMA OF LEFT LOWER LEG WITH 2CM MARGINS 2. LEFT INGUINAL SENTINEL LYMPH NODE BIOPSY 3. INTEGRA GRAFT PLACEMENT (6X7CM WOUND) 4. VAC VIA PLACEMENT Anesthesia: [place] Estimated Blood Loss: 20ml Findings: Exophytic left lower leg tumor measuring 3 x 4 cm. Lymphoscintigraphy demonstrating drainage to the left inguinal basin Specimens(s) Collected: yes, Left lower leg melanoma, short stitch 12:00 proximal, long stitch anterior 3:00 Left inguinal sentinel lymph node #1-blue 6709, #2 blue 194 Left inguinal nonsentinel node [...] Aguilar MD Furlong, Dennis G, MD - [phone] [] Signatures/Attestation: Note Completion: Attending AttestationI was present for the entire procedure Electronic Signatures: Alex Trammell) (Signed 16-Nov-2020 14:13) Authored: Post-Operative Note, Chart Review, Note Completion Last Updated: 16-Nov-2020 14:13 by Alex Trammell)[facility] 11-16-2020 NoteHistory & Physical [...] the note. I personally evaluated the patient [id number] Attending Provider Inpatient Certification StatementObservation patient/other outpatient visits Electronic Signatures: Alex Trammell) (Signed 16-Nov-2020 13:12) Authored: Note Completion Co-Signer: History & Physical Reviewed, ERAS, Consent, Note Completion Ct Tinsley (Resident)) (Signed 16-Nov-2020 10:36) Authored: History & Physical Reviewed, ERAS, Consent, Note Completion Last Updated: 16-Nov-2020 13:12 by Alex Trammell)[facility] 10-16-2020 NoteAccession #: [id number] Pathologist: SURAJ MELGAR MD Date of Procedure: 10/16/2020 Date Received: 10/16/2020 Submitting Physician: ALEX TRAMMELL MD Location: [facility] Copy To/Referring/Attending: QUENTIN FITZPATRCIK DO FINAL DIAGNOSIS 4 SLIDES, [facility], #[id number] [A] (BX: 09/28/2020) SKIN, LEFT DISTAL PRETIBIAL [...] REPORT A. 4 SLIDES, [facility], #[id number] [A] (BX: 09/28/2020): SPECIMEN Procedure: Biopsy, shave [...] ADDITIONAL FINDINGS Additional Findings: None ADDITIONAL TESTING CLINIC CHARGE NURSE BLOCKS: Normal Block: None Tumor Block: A1, A2 Electronically Signed Out By SURAJ MELGAR MD/MICHAEL Clinical History: A) 2.2CM NODULE, NEOPLASM OF UNCERTAIN BEHAVIOR VS SQUAMOUS CELL CARCINOMA Specimens Submitted As: A: 4 SLIDES, [facility], #[id number] [A] (BX: 09/28/2020) Gross Description: Received for consultation from [facility] are four slides labeled [id number] [A] (BX: 09/28/2020) along with the corresponding pathology report. Slides received on specimen A only. Slide/Block Description 4 SLIDES, [id number] A. Keep Slides: N Slides Returned: N Personal Consult[facility]:Performed By: #### D #### [id number] History general Narrative - Reported* Type Description Date Medical History breast cancer (1996) Medical History HTN Medical History hyperlipidemia Medical History basal cell carcinoma upper back (September 2020) Medical History metastatic malignant melanoma [employer] Other 04-20-2014 History of Present illness Narrative* [...] in a prior mole. Thepatient moved from [place] 8 years ago and has not established [...] She reports that shehas not seen her assembler semiconductor since prior to the cancer treatment. As [...] the knee to the foot. 1+ edema. [facility] Work Phone: [phone]) [phone] History of Present illness Narrative* Ms. Luu [...] in a prior mole. Thepatient moved from [place] 8 years ago and has not established [...] She reports that shehas not seen her assembler semiconductor since prior to the cancer treatment. As [...] the knee to the foot. 1+ edema. [facility] Work Phone: 1([phone]) [phone] History of Present illness Narrative* Ms. Luu [...] in a prior mole. Thepatient moved from [place] 8 years ago and has not established [...] the knee to the foot. 1+ edema. [facility] Work Phone: [phone]) 541-264206-16-2013 History of Present illness Narrative* Ms. Luu [...] in a prior mole. Thepatient moved from [place] 8 years ago and has not established [...] the knee to the foot. 2+ edema. [facility] Work Phone: 1([phone]) [phone] History of Present illness Narrative* Ms. Luu [...] in a prior mole. Thepatient moved from [place] 8 years ago and has not established [...] the knee to the foot. 2+ edema. [facility] Work Phone: evaluation noteN/ADept. of Dermatology Evaluation note* Diagnosis Onset Date Resolution Status Melanoma acute [facility] Work Phone: Evaluation noteNo assessment information available [facility] Work Phone: Evaluation note* Diagnosis Onset Date Resolution Status Melanoma acute Inguinal adenopathy acute [facility] Work Phone: Evaluation note* Diagnosis Onset Date Resolution Status Inguinal adenopathy acute Melanoma acute [facility] Work Phone: Evaluation note* Diagnosis Onset Date Resolution Status Encounter for antineoplastic immunotherapy acute Inguinal adenopathy acute Melanoma acute [facility] Work Phone: Evaluation note* Diagnosis Onset Date Resolution Status Melanoma acute Encounter for antineoplastic immunotherapy acute Inguinal adenopathy acute Melanoma acute [facility] Work Phone: evaluation note* Diagnosis Essential (primary) hypertension Unspecified essential hypertension [facility]* Diagnosis Benign hypertension with chronic kidney disease, stage III ([facility])- Primary Hyperlipidemia, unspecified hyperlipidemia type Malignant melanoma of left lower leg ([facility]) Class 2 severe obesity due to excess calories with serious comorbidity and body mass index (BMI) of 35.0 to 35.9 in adult documented in this encounter [facility]* Diagnosis Injury of left wrist, initial encounter- Primary documented in this encounter [facility] Discharge instructionsAmbulatory Orders* Chemotherapy Class Time Frame: 1 Day, Location: Determined By Patient [facility] Work Phone: Hospital Discharge instructionsAmbulatory Orders* Oncology Histology Time Frame: 1 Day, Location: Determined By Patient [facility] Work Phone: InstructionsNot on filedocumented in this encounter [facility]ructionsNot on filedocumented in this encounter [facility] SystemInstructionsNot on filedocumented in this encounter [facility]* Attachments The following attachments cannot be sent through Care Everywhere. * Common wrist injuries (French) [facility] System[facility] note Author Sly Benson [facility] May 02, 2022 4:01pm Note Date/Time May 02, 2022 3 :52pm [facility] [place] [address] Hem/Onc Follow Up Note - OP Signed Patient: Theresa Luu MR#: [id number] : 1945 Acct:[id number] Age/Sex: 76 / F Type: REG RCR [...] leg melanoma removed by Dr. Trammell at [facility] in November 162020 with sentinel node biopsy [...] and has CT scans scheduled for at [facility]. She is doing well, no major [...] for coordination of care (as documented) and fkhw-ks-hsym counseling of patient and/or family. [facility] - Medical History Medical History: [...] by Sly Benson II, DO> 05/02/22 1601 [facility] Work Phone: Progress note Author Zenobia Parker [facility] June 02, 2022 11:05am Note Date/Time June 02, 2022 11:01am [facility] [place] [address] Hem/Onc Follow Up Note - OP Signed Patient: Theresa Luu MR#: [id number] : 1945 Acct:[id number] Age/Sex: 76 / F Type: REG RCR [...] leg melanoma removed by Dr. Trammell at [facility] in November 162020 with sentinel node biopsy [...] and has CT scans scheduled for at [facility]. She is doing well, no major [...] review of systems is negative. [facility] - Medical History Medical History: [...] for coordination of care (as documented) and xnbm-ov-jfns counseling of patient and/or family. Dictated By: Zenobia Parker APRN DD/ 1058 Signed By: <Electronically signed by ANTOINETTE Parker> 06/02/22 1105 [facility] Work Phone: Progress note Author Sly Benson [facility] June 23, 2022 11:22am Note Date/Time June 23, 2022 11:18am [facility] at [address] [address] Hem/Onc Follow Up Note - OP Signed Patient: Theresa Luu MR#: [id number] : 1945 Acct:[id number] Age/Sex: 76 / F Type: REG RCR Copies to: Yoni Larson YohanaDO Alex Trammell MD~ Date of Service: 06/23/2022 [...] leg melanoma removed by Dr. Trammell at [facility] in November 162020 with sentinel node biopsy [...] and has CT scans scheduled for at [facility]. She is doing well, no major [...] for coordination of care (as documented) and vzdm-sk-bmtq counseling of patient and/or family. [facility] - Medical History Medical History: [...] by Sly Benson II, DO> 06/23/22 1122 [facility] Work Phone: Progress note Author Sly Benson [facility] August 11, 2022 11:03am Note Date/Time August 11, 2022 1 0:48am [facility] [place] [address] Hem/Onc Follow Up Note - OP Signed Patient: Theresa Luu MR#: [id number] : 1945 Acct:[id number] Age/Sex: 76 / F Type: REG RCR [...] had improvement /resolution of the lung nodularity. 1/30/23 to get first maintenance nivo today. i [...] leg melanoma removed by Dr. Trammell at [facility] in November 162020 with sentinel node biopsy [...] and has CT scans scheduled for at [facility]. She is doing well, no major [...] for coordination of care (as documented) and zenv-cm-nbif counseling of patient and/or family. [facility] - Medical History Medical History: [...] % (Auto) 58.6, Lymph % (Auto) 29.6, Assumption % (Auto) 9.0, Eos % (Auto) 2.1, Baso % (Auto) 0.7, Nucleat RBC Rel Count 0.1, Neut # (Auto) 4.4, Lymph # (Auto) 2.2, Assumption # (Auto) 0.7, Eos # (Auto) 0.2, [...] by Sly Benson II, DO> 08/11/22 1103 [facility] Work Phone: Progress note Author Sly Benson [facility] September 08, 2022 10:18am Note Date/Time September 08, 2022 10:08am [facility] [place] [address] Hem/Onc Follow Up Note - OP Signed Patient: Theresa Luu MR#: [id number] : 1945 Acct:[id number] Age/Sex: 76 / F Type: REG RCR Copies to: DO lAex Acuña MD~ Date of Service: 09/08/2022 Time of Service: 10:04 - Assessment & Plan (1) Melanoma Plan: 1.) Metastatic stage IV melanoma - BRAF negative , recurrent in sept 2022, originally T4bN1a stage iiic L ankle. [...] leg melanoma removed by Dr. Trammell at [facility] in November 162020 with sentinel node biopsy [...] and has CT scans scheduled for at [facility]. She is doing well, no major [...] for coordination of care (as documented) and tzpk-lu-watx counseling of patient and/or family. [facility] - Medical History Medical History: [...] by Sly Benson II, DO> 09/08/22 1018 [facility] Work Phone: Progress note Author Senia Montez [facility] December 30, 2022 11:06am Note Date/Time December 30, 2022 8:35 am [facility] [place] [address] Hem/Onc Follow Up Note - OP Signed Patient: Theresa Luu MR#: [id number] : 1945 Acct:[id number] Age/Sex: 77 / F Type: REG RCR Copies to: Yoni Prolastedmar,DO Alex Benson, II, DO~ Date of Service: [...] leg melanoma removed by Dr. Trammell at [facility] in November 162020 with sentinel node biopsy [...] and has CT scans scheduled for at [facility]. She is doing well, no major [...] for coordination of care (as documented) and mymb-cc-iize counseling of patient and/or family. [facility] - Medical History Medical History: [...] <Electronically signed by ANTOINETTE Montez> 12/30/22 1106 [facility] Work Phone: Progress note Author Sly Benson [facility] March 06, 2023 2:40pm Note Date/Time March 06, 2023 2: 37pm [facility] [place] [address] Hem/Onc Follow Up Note - OP Signed Patient: Theresa Luu MR#: [id number] : 1945 Acct:[id number] Age/Sex: 77 / F Type: REG RCR [...] leg melanoma removed by Dr. Trammell at [facility] in November 162020 with sentinel node biopsy [...] and has CT scans scheduled for at [facility]. She is doing well, no major [...] maybe 3 days. worse after hot showers. [employer] really works for this. 08/11/22 She is [...] for coordination of care (as documented) and dckk-bv-xofu counseling of patient and/or family. [facility] - Medical History Medical History: [...] % (Auto) 66.0, Lymph % (Auto) 23.1, Assumption % (Auto) 8.4, Eos % (Auto) 1.7, Baso % (Auto) 0.8, Nucleat RBC Rel Count 0.0, Neut # (Auto) 4.1, Lymph # (Auto) 1.4, Assumption # (Auto) 0.5, Eos # (Auto) 0.1, [...] by Sly Benson II, DO> 03/06/23 1440 [facility] Work Phone: Progress note Author Sly Benson [facility] August 07, 2023 11:49am Note Date/Time August 07, 2023 1 1:21am [facility] [place] [address] Cancer Center Note Signed Patient: Theresa Luu MR#: [id number] : 1945 Acct:[id number] Age/Sex: 77 / F Type: REG AMB [...] 13 of 18 Cycle Day Next Admin 25 of No Active Chemotherapy History of Present Illness [...] leg melanoma removed by Dr. Trammell at [facility] in November 162020 with sentinel node biopsy [...] and has CT scans scheduled for at [facility]. She is doing well, no major [...] maybe 3 days. worse after hot showers. [employer] really works for this. 08/11/22 She is [...] labs and imaging for review. [facility] Medical History Medical History Malignant tumor of [...] Benson II, DO> 08/07/23 1149 [facility] Work Phone: Progress note Author Sly Benson [facility] January 22, 2024 9:45am Note Date/Time January 22, 2024 9:17 am [facility] [place] [address] Cancer Center Note Signed Patient: Theresa Luu MR#: [id number] : 1945 Acct:[id number] Age/Sex: 78 / F Type: REG AMB Date of Service: 01/22/24 Copies to: Yoni Muller DO~ Assessment & Plan A/P Patient Instructions: cont monthly nivo cbc, cmp, tsh t4. f/u in [address] c/a/p with contrst. CHEMO PLAN Treatment Plan Nivolumab (Opdivo) 480mg Q28D Clinical Indication No Indication Cycle Number Last Admin Cycle Day Next Admin No Active Chemotherapy History of Present Illness HPI ASSESSMENT/PLAN Metastatic stage IV melanoma - BRAF negative [...] imaging with continued response, minimal overall disease. january 2024 no evidence active cancer on imaging. Completed palliative XRT to left inguinal fossa/lymph node in August 2022 withdramatic decrease in size No immunotherapy related toxicities - denies skin rash, diarrhea, stable laboratories No recent infections, cough, chest pain, SOB or weight loss, no new skin lesions PHYSICAL EXAMINATION ECOG PS:0 General : patient is alert and oriented to person place and time, no acute distress. Neck: no JVD or thyromegaly. Lymph: no cervical, supraclavicular, axillary adenopathy. Heart: regular rate and rhythm no murmurs rubs or gallops. Abdomen: soft, nontender,, nondistended, no hepatosplenomegaly. Lungs: clear to auscultation bilaterally. No wheezes, rales, rhonchi. Extremities: no clubbing cyanosis HISTORY OF PRESENT ILLNESS 78-year-old female referred for melanoma primary patient of [...] leg melanoma removed by Dr. Trammell at [facility] in November 162020 with sentinel node biopsy [...] and has CT scans scheduled for at [facility]. She is doing well, no major [...] nodes, persistent necrotic unchanged L iliac nodes. 01/22/[address] c/a/p from 01/20/24 with contrast IMPRESSION: No significant change in chest, abdomen or pelvis findings compared to the prior study. Intake Vitals/Pain Assessment 01/22/24 09:19 Weight 85.729 kg BP 134/64 Blood Pressure Location Rt brachial Position Sitting Temp 98 F Temp Source Temporal Pulse 80 Pulse Source NIBP Respiration 20 Pulse Oximetry (%) 96 Oxygen Delivery Method room air Intake Visit Reasons: 6 mos f/u, Melanoma Allergies Penicillins Allergy (Unknown, Unverified 01/22/24 09:22) Unknown Reaction - Last Reconciled 01/22/24 by Sheyla Espinoza hydrochlorothiazide 25 mg PO [...] Nurse's Note: Patient is here for a 6 month follow up with labs and imaging for review, prior to treatment today. [facility] Medical History Medical History Malignant tumor of breast Hyperlipidemia Skin graft disorder Cellulitis Essential hypertension Malignant melanoma left distal lower anterior leg Basal cell carcinoma left mid upper back Surgical History Surgical History H/O left mastectomy Family History Family History Other No significant family history Social History Social History Smoking status: Never smoker Results - Cancer Ctr (Med Onc) LAB RESULTS Corrected WBC 9.2 X10E3/uL (3.8-11.6) 01/20/24 08:35 Hgb 14.6 g/dL (11.8-15.4) 01/20/24 08:35 Hct 43.2 % (34.0-46.4) 01/20/24 08:35 MCV 90.4 fl (80-100) 01/20/24 08:35 RDW 14.1 % (11.9-15.3) 01/20/24 08:35 Plt Count 182 x10E3/uL (150-450) 01/20/24 08:35 Sodium 139 mmol/L (136-145) 01/20/24 08:35 Potassium 3.6 mmol/L (3.5-5.1) 01/20/24 08:35 BUN 19 mg/dL (7-25) 01/20/24 08:35 Creatinine 0.84 mg/dL (0.60-1.20) 01/20/24 08:35 Glucose 112 mg/dL (70-100) H 01/20/24 08:35 Est GFR (CKD-EPI) > 60.0 mL/Min 01/20/24 08:35 Calcium 9.1 mg/dL (8.6-10.3) 01/20/24 08:35 Total Bilirubin 0.8 mg/dl (0.3-1.0) 01/20/24 08:35 AST 26 U/L (13-39) 01/20/24 08:35 ALT 34 U/L (7-52) 01/20/24 08:35 Alkaline Phosphatase 109 U/L (34-104) H 01/20/24 08:35 Total Protein 6.9 gm/dL (6.4-8.9) 01/20/24 08:35 Albumin 4.0 gm/dL (3.5-5.7) 01/20/24 08:35 Lactate Dehydrogenase 191 U/L (140-271) 01/20/24 08:35 Dictated By: Sly Benson II, DO DD/ 0916 Signed By: <Electronically signed by Sly Benson II, DO> 01/22/24 0945 [facility] Work Phone: Reason for referral (narrative)* Name Reason for referral NA XU Dept. of Dermatology Assessments N/A Reason for [...] Encounter for antineoplastic immunotherapy Inguinal adenopathy Melanoma Chief Complaint 6 mos f/u Melanoma Reason for Visit Encounter for antine oplastic immunotherapy Inguinal adenopathy Melanoma Additional Source Comments INFORMATION SOURCE (unrecogn ized section and content) DATE CREATED AUTHOR 11/07/2020 [facility] DATE CREATED AUTHOR AUTHOR'S ORGANIZ ATION 12/04/2020 [facility] DATE CREATED AUTHOR AUTHOR'S ORGANIZ ATION 12/10/2020 [facility] DATE CREATED AUTHOR AUTHOR'S ORGANIZ ATION 05/12/2021 [facility] DATE CREATED AUTHOR AUTHOR'S ORGANIZ ATION 09/23/2021 [facility] DATE CREATED AUTHOR AUTHOR'S ORGANIZ ATION 09/28/2021 [facility] DATE CREATED AUTHOR AUTHOR'S ORGANIZ ATION 10/06/2022 [facility] DATE CREATED AUTHOR AUTHOR'S ORGANIZ ATION 02/14/2024 [facility] Care Teams (unrecognized sec tion and content) Team Status: Active Member Role Status Dates Yoni Muller DO Primary Care Provider Active Team Status: Inactive Member Role Status Dates Yoni Muller DO Primary Care Provider Active Start: August 07, 2023 End: August 07, 2023 Sly Benson II, Attending Provider Active Start: [...] Dates Sly Benson II, Attending Provider Active Yoni Muller , DO [...] Sly Benson II, DO Attending Provider Active Professor Of Religion Relationship Specialty Start Date End Date Yoni Muller DO [address], [place] [address] PCP - General Family Medicine 04/21/22 Professor Of Religion Relationship Specialty Start Date End Date Yoni Muller DO [address], [place] [address] PCP - General Family Medicine 04/21/22 Professor Of Religion Relationship Specialty Start Date End Date Yoni Muller DO [address], [place] [address] PCP - General Family Medicine 04/21/22 Team Status: Inactive Member Role Status Dates Yoni Muller , Primary Care Provider Active Start: January 22, 2024 End: January 22, 2024 Sly Benson II, DO Attending Provider Active Start: January 22, 2024 End: January 22, 2024 Team Status: Active Member Role Status Dates Sly Rachele Benson II, DO Attending Provider Active Start: January 22, 2024 Yoni Muller DO Primary Care Provider Active Start: January 22, 2024 Alex Trammell MD Referring Provider Active Start: January 22, 2024 Goals (unrecognized section and content) Goals may [...] BE BASED ON THE PRIMARY CLINICAL RECORDS. [employer] provides no warranty or guarantee of the accuracy or completeness of information in this document.
[2024-02-17 07:23] LABS: Basophils Percent Auto 0.6 % (0.2-2.0); Eosinophils Absolute Auto 0.1 10^3/uL (0.0-0.7); Hematocrit 40.6 % (36.0-48.0); Hemoglobin 13.6 g/dL (12.0-16.0); Immature Granulocytes Abs Auto 0.01 10^3/uL (0.00-0.03); Immature Granulocytes Pct Auto 0.2 % (0.0-0.5); Lymphocytes Absolute Auto 1.6 10^3/uL (1.2-3.8); Lymphocytes Percent Auto 31.1 % (20.5-60.0); Mean Corpuscular HGB Conc 33.5 g/dL (29.9-35.2); Mean Corpuscular Hemoglobin 30.8 pg (26.7-34.0); Mean Corpuscular Volume 92.1 fL (81.0-99.0); Monocytes Absolute Auto 0.4 10^3/uL (0.3-0.8); Monocytes Percent Auto 8.2 % (1.7-12.0); Neutrophils Absolute Auto 2.9 10^3/uL (1.4-6.5); Neutrophils Percent Auto 57.9 % (43.0-75.0); Platelet Count 183 10^3/uL (150-450); Red Blood Count 4.41 10^6/uL (4.20-5.40)
[2024-02-17 07:52] LABS: Alanine Aminotransferase 35 U/L (14-59); Albumin Level 3.3 g/dL (3.4-5.0); Alkaline Phosphatase 109 U/L (46-116); Anion Gap 13.3; Aspartate Amino Transferase 29 U/L (15-37); BUN Creatinine Ratio 18.9; Bilirubin Total 0.5 mg/dL (0.2-1.0); Calcium 9.1 mg/dL (8.5-10.1); Carbon Dioxide 28.9 mmol/L (21.0-32.0); Chloride 103 mmol/L (98-107); Estimated GFR (African America >60 (>=60); Estimated GFR (Non-African Ame >60 (>=60); Globulin 3.2 g/dL; Glucose 166 mg/dL (74-106); Lactate Dehydrogenase 175 U/L (81-234); Potassium 3.2 mmol/L (3.5-5.1); Sodium 142 mmol/L (136-145); Thyroid Stimulating Hormone 2.084 uIU/mL (0.358-3.740); Total Protein 6.5 g/dL (6.4-8.2)
[2024-02-17 08:32] LABS: Free T4 1.03 ng/dL (0.76-1.46)
[2024-02-18 13:09] LABS: ACTH, Plasma 20.9 pg/mL (7.2-63.3)
== END 2024-02-17 07:00 | disposition home or self-care (01) ==
LOC: LAB 07:02
PROVIDERS: PCP Family Medicine; Visit Provider Internal Medicine
DX: Z51.12 Encounter for antineoplastic immunotherapy (principal); C43.9 Malignant melanoma of skin, unspecified; R59.0 Localized enlarged lymph nodes
CPT/HCPCS: 36415; 80053; 82024; 83615; 84439; 84443; 85025

== ENCOUNTER 2024-03-16 07:15 | Outpatient (OUT) | payer MEDICARE, SELFPAY ==
--- OUTSIDE RECORDS SUMMARY | 2024-03-16 07:20 | XMS_ITS | CCD ---
Author Organization [facility] Providers Care Bench Loom Weaver Name Role Phone Quentin Fitzpatrick Unavailable Unavailable Yohana Yoni Larson Unavailable Unavailable Unavailable Quentin Fitzpatrick Unavailable Unavailable DO Sly Benson II Attending Provider [phone] Yohana, DO [place] Primary Care Provider [phone] MD Alex Trammell Referring Provider DO Sly Benson II Attending Provider [phone] Yohana, Yoni Primary Care Provider MD Alex Trammell Referring Provider MD Alex Trammell Attending Provider [phone] Yohana, DO Yoni Primary Care Provider DO Sly Benson II Attending Provider [phone] MD Alex Trammell Referring Provider [phone] Yohana, Yoni Primary Care Provider [phone] MD Alex Trammell Attending Provider DO Sly Benson II Attending Provider MD Alex Trammell Referring Provider DO Sly Benson II Attending Provider MD Alex Trammell Referring Provider [phone] Yohana, Yoni Primary Care Provider MD Alex Trammell Attending Provider [phone] Kelley II, DO Sly J Attending Provider [phone] MD Alex Trammell Referring Provider [phone] MD Alex Trammell Referring Provider MD Alex Trammell Referring Provider Kelley II, DO Sly Jeffrey Attending Provider Furlong, DO Yoni Primary Care Provider [phone] MD Alex Trammell Referring Provider Kelley II, DO Sly Jeffrey Attending Provider Furlong, DO Yoni Primary Care Provider MD Alex Trammell Referring Provider Adamhilario II, DO Sly J Attending Provider Furlong, DO [place] Primary Care Provider MD Alex Trammell Referring Provider [phone] JASONICZ, SLY J Admitting Unavailable FURLONG, DR [...] Unavailable DR YONI MULLER Primary Care Unavailable ADAMOWICZ, SLY J Attending [...] II, DO Sly Jeffrey Attending Provider [phone] Furlong, DO Yoni Primary Care Provider [phone] MD Alex Trammell Referring Provider [phone] Kelley II, DO Sly Jeffrey Attending Provider Furloedmar, DO [place] Primary Care Provider MD Alex Trammell Referring Provider [phone] Furlong Yoni MITCHELL Primary Care Provider Kelley II, DO Sly Jeffrey Attending Provider Furlong, DO Yoni Primary Care Provider MD Alex Trammell Referring Provider Yohana, Yoni Primary Care Unavailable Davidowicz II, Sly J Attending Unavaila ble Adamowicz II, Sly Jeffrey Admitting Unavaila ble Mortezalong, Yoni Primary Care Unavailable Sly Benson II Attending Unavaila Sly Blount II Admitting Unavaila Alex Baumann Referring Unavailab le Allergies Allergy Classification Reported Allergen(s) Allergy Type Date of Onset Reaction(s) Facility (3 sources) No Alert Propensity to adverse reactions to drug 1 [facility] (2 sources) Penicillin Drug Allergy Unknown [facility] Repository (4 sources) Penicillins Propensity to adverse reactions to drug 2 [facility] [employer] [facility] (1 source) Penicillins Drug allergy (disorder) 4 [facility] Repository Medications Current Medications Medication Drug [...] Hormone PL 21.6 pg/mL Normal 7.2-63.3 [facility] Comment on above: Result Comment: ACTH reference interval for samples collected between 7 and 10 AM. Performed at: [facility] [address] [id number] House Parent: Coleman Lacy PhD, Phone: [phone] PERFORMED BY: [place] [address] PATHOLOGIST CAR SERVICER WAYLON SAUNDERS M.D. Performed By: #### T 4F, CMP, LDH, TSH3, CBC ####[place] [id number] [address]#### ACTH ####[facility] , Alanine aminotransferase [En zymatic activity/volume] in Serum or PlasmaOrdered By: Sly Benson on 01-20-2024 ALT [Catalytic activity/Vol] 34 U/L Normal 7-52 [facility] Comment on above: Performed By: #### T 4F, CMP, LDH, TSH3, CBC #### [facility] [address] [place] [address] [place] #### ACTH #### [facility] , Albumin [Mass/volume] in Ser um or Plasma by Bromocresol green (BCG) dye binding methoOrdered By: Sly Benson on 07-10-2024 Albumin BCG dye [Mass/Vol] 4.0 g/dL 3.5-5.7 [facility] Alkaline phosphatase [Enzyma tic activity/volume] in Serum or PlasmaOrdered By: Sly Benson on 01-20-2024 ALP [Catalytic activity/Vol] 109 U/L High 34-104 [facility] Comment on above: Performed By: #### T 4F, CMP, LDH, TSH3, CBC #### [facility] [address] [place] [address] [place] #### ACTH #### [facility] , Aspartate aminotransferase [ Enzymatic activity/volume] in Serum or PlasmaOrdered By: Sly eBnson on 01-20-2024 AST [Catalytic activity/Vol] 26 U/L Normal 13-39 [facility] Comment on above: Performed By: #### T 4F, CMP, LDH, TSH3, CBC #### [place] [address] [place] #### ACTH #### [facility] , Automated basophil %Ordered By: Sly Benson on 01-20-2024 Basophils/100 WBC (Bld) 0.3 % Normal . [facility] Comment on above: Performed By: #### T 4F, CMP, LDH, TSH3, CBC #### [facility] [address] [place] [address] [place] #### ACTH #### [facility] , Automated basophil countOrde red By: Sly Benson on 01-20-2024 Basophils (Bld) [#/Vol] 0.0 10*3/uL Normal 0.0-0.2 [facility] Comment on above: Result Comment: PERF ORMED BY: [place] [address] PATHOLOGIST CAR SERVICER WAYLON SAUNDERS M.D. Performed By: #### T 4F, CMP, LDH, TSH3, CBC #### [place] [address] [place] #### ACTH #### [facility] , Automated blood monocyte cou ntOrdered By: Sly Benson on 01-20-2024 Monocytes (Bld) [#/Vol] 0.8 10*3/uL Normal 0.0-0.8 [facility] Comment on above: Performed By: #### T 4F, CMP, LDH, TSH3, CBC #### [place] [address] [place] #### ACTH #### [facility] , Automated eosinophil %Ordere d By: Sly Benson on 01-20-2024 Eosinophils/100 WBC (Bld) 1.3 % Normal . [facility] Comment on above: Performed By: #### T 4F, CMP, LDH, TSH3, CBC #### [place] [address] [place] #### ACTH #### [facility] , Automated eosinophil countOr dered By: Sly Benson on 01-20-2024 Eosinophils (Bld) [#/Vol] 0.1 10*3/uL Normal 0.0-0.45 [facility] Comment on above: Performed By: #### T 4F, CMP, LDH, TSH3, CBC #### [place] [address] [place] #### ACTH #### [facility] , Automated monocyte %Ordered By: Sly Benson on 01-20-2024 Monocytes/100 WBC (Bld) 8.7 % Normal . [facility] Comment on above: Performed By: #### T 4F, CMP, LDH, TSH3, CBC #### [place] [address] [place] #### ACTH #### [facility] , Automated neutrophil %Ordere d By: Sly Benson on 01-20-2024 Neutrophils/100 WBC (Bld) 71.5 % Normal . [facility] Comment on above: Performed By: #### T 4F, CMP, LDH, TSH3, CBC #### [address] [place] [address] [place] #### ACTH #### [facility] , Bilirubin.total [Mass/volume ] in Serum or PlasmaOrdered By: Sly Benson on 01-20-2024 Bilirubin [Mass/Vol] 0.8 mg/dL Normal 0.3-1.0 [facility] Comment on above: Performed By: #### T 4F, CMP, LDH, TSH3, CBC #### [facility] [address] [place] [address] #### ACTH #### [facility] , CT abdomen pelvis w conon CT abdomen pelvis w con [facility] [place] [address] [place] [address] CT Scan Report Signed Patient: Theresa Luu MR#: [id number] : 1945 Acct:[id number] Age/Sex: 78 / F ADM Date: 01/20/24 [facility]: [facility]: [facility] Dr: Sly Benson II DO Copies to: Sly Benson II, DO Ordering Provider: Sly Benson II, DO Date of Service: 01/20/24 CT/CT chest w con: MELANOMA ([id number]) CT/CT abdomen pelvis w con: MELANOMA CT [...] study. Impression dictated by: Sylvain Monroe Jr., D.O.01/20/2024 11:24 AM Dictation Location: [place] [address] Transcribed By: [facility] 01/20/24 1124 Dictated By: Sylvain Monroe Jr, DO 01/20/24 1111 Signed By: 01/20/24 1124 Normal [facility] Calcium [Mass/volume] in Ser um or PlasmaOrdered By: Sly Benson on 01-20-2024 Calcium [Mass/Vol] 9.1 mg/dL Normal 8.6-10.[address] [facility] Comment on above: Performed By: #### T 4F, CMP, LDH, TSH3, CBC #### [facility] [address] [place] [address] [place] #### ACTH #### [facility] , Carbon dioxide, total [Moles /volume] in Serum or PlasmaOrdered By: Sly Benson on 01-20-2024 CO2 [Moles/Vol] 29.1 mmol/L Normal 21.0-31.0 [facility] Comment on above: Performed By: #### T 4F, CMP, LDH, TSH3, CBC #### [facility] [address] [place] [address] [place] #### ACTH #### [facility] , Chloride [Moles/volume] in S mellissa or PlasmaOrdered By: Sly Benson on 01-20-2024 Chloride [Moles/Vol] 102 mmol/L Normal 98-107 [facility] Comment on above: Performed By: #### T 4F, CMP, LDH, TSH3, CBC #### [place] [address] [place] #### ACTH #### [facility] , Complete Blood Count Auto Di ffon 01-20-2024 Mean Corpuscular HGB Conc 33.7 g/dL Normal 32.0-35.0 [facility] Comment on above: Performed By: #### T 4F, CMP, LDH, TSH3, CBC #### [place] [address] [place] #### ACTH #### [facility] , NRBC% 0.0 /100{WBC} Normal 0-0.5 [facility] Comment on above: Performed By: #### T 4F, CMP, LDH, TSH3, CBC #### [place] [address] [place] #### ACTH #### [facility] , Comprehensive Metabolic Pane eileen 01-20-2024 Albumin [Mass/Vol] 4.0 g/dL Normal 3.5-5.7 [facility] Comment on above: Performed By: #### T 4F, CMP, LDH, TSH3, CBC #### [place] [address] [place] #### ACTH #### [facility] , Creatinine Clr Calc Pharmacy 58.76 Normal [facility] Comment on above: Performed By: #### T 4F, CMP, LDH, TSH3, CBC #### [place] [address] [place] #### ACTH #### [facility] , GFR/1.73 sq M.predicted MDRD (S/P/Bld) [Vol rate/Area] mL/min/{1.73_m2} Normal [facility] Comment on above: Performed By: #### T 4F, CMP, LDH, TSH3, CBC #### [place] [address] [place] #### ACTH #### [facility] , Creatinine [Mass/volume] in Serum or PlasmaOrdered By: Sly Benson on 01-20-2024 Creatinine [Mass/Vol] 0.84 mg/dL Normal 0.60-1.20 [facility] Comment on above: Performed By: #### T 4F, CMP, LDH, TSH3, CBC #### [place] [address] [place] #### ACTH #### [facility] , Erythrocyte distribution wid th [Ratio] by Automated countOrdered By: Sly Benson on 01-20-2024 Erythrocyte distribution width (RBC) [Ratio] 14.1 % Normal 11.9-15.3 [facility] Comment on above: Performed By: #### T 4F, CMP, LDH, TSH3, CBC #### [place] [address] [place] #### ACTH #### [facility] , Erythrocytes [#/volume] in B lood by Automated countOrdered By: Sly Benson on 01-20-2024 RBC (Bld) [#/Vol] 4.77 10*6/uL Normal 3.60-5.00 [facility] Comment on above: Performed By: #### T 4F, CMP, LDH, TSH3, CBC #### [place] [address] [place] #### ACTH #### [facility] , Glucose [Mass/volume] in Ser um or PlasmaOrdered By: Sly Benson on 01-20-2024 Glucose [Mass/Vol] 112 mg/dL High 70-[address] [facility] Comment on above: ADA recommended refe rence rangeRandom Glucose Reference Range is dependent on time and content of last meal. Glucose of more than 200 mg/dL in a nonstressed, ambulatory subject supports the diagnosis of Diabetes Mellitus. Result Comment: [place] om Glucose Reference Range is dependent on time and content of last meal. Glucose of more than 200 mg/dL in a nonstressed, ambulatory subject supports the diagnosis of Diabetes Mellitus. ADA recommended reference range Performed By: #### T 4F, CMP, LDH, TSH3, CBC #### [place] [address] [place] #### ACTH #### [facility] , Hematocrit [Volume Fraction] of Blood by Automated countOrdered By: Sly Benson on 01-20-2024 Hematocrit (Bld) [Volume fraction] 43.2 % Normal 34.0-46.4 [facility] Comment on above: Performed By: #### T 4F, CMP, LDH, TSH3, CBC #### [place] [address] [place] #### ACTH #### [facility] , Hemoglobin [Mass/volume] in BloodOrdered By: Sly Benson on 01-20-2024 Hemoglobin (Bld) [Mass/Vol] 14.6 g/dL Normal 11.8-15.4 [facility] Comment on above: Performed By: #### T 4F, CMP, LDH, TSH3, CBC #### [place] [address] [place] #### ACTH #### [facility] , LDH Lactate Dehydrogenaseon 01-20-2024 LDH Lactate Dehydrogenase 191 U/L Normal 140-271 [facility] Comment on above: Performed By: #### T 4F, CMP, LDH, TSH3, CBC #### [place] [address] [place] #### ACTH #### [facility] , Lactate dehydrogenase [Enzym atic activity/volume] in Serum or Plasma by Lactate to pyOrdered By: Sly Benson on 01-20-2024 LDH Lactate to pyruvate reaction [Catalytic activity/Vol] 191 U/L 140-271 [facility] Leukocytes [#/volume] correc margot for nucleated erythrocytes in Blood by Automated counOrdered By: Sly Benson on 01-20-2024 WBC corrected for nucl RBC Auto (Bld) [#/Vol] 9.2 10*3/uL 3.8-11.6 [facility] Leukocytes [#/volume] in Blo od by Automated countOrdered By: Sly Benson on 01-20-2024 WBC (Bld) [#/Vol] 9.2 10*3/uL Normal 3.8-11.[address] [facility] Comment on above: Performed By: #### T 4F, CMP, LDH, TSH3, CBC #### [facility] [address] [place] [address] [place] #### ACTH #### [facility] , Lymphocytes [#/volume] in Bl ood by Automated countOrdered By: Sly Benson on 01-20-2024 Lymphocytes (Bld) [#/Vol] 1.7 10*3/uL Normal 1.00-4.8 [facility] Comment on above: Performed By: #### T 4F, CMP, LDH, TSH3, CBC #### [facility] [address] [place] [address] [place] #### ACTH #### [facility] , Lymphocytes/100 leukocytes i n Blood by Automated countOrdered By: Sly Benson on 01-20-2024 Lymphocytes/100 WBC (Bld) 18.2 % Normal . [facility] Comment on above: Performed By: #### T 4F, CMP, LDH, TSH3, CBC #### [facility] [address] [place] [address] [place] #### ACTH #### [facility] , MCH [Entitic mass] by Automa margot countOrdered By: Sly Benson on 01-20-2024 MCH (RBC) [Entitic mass] 30.5 pg Normal 24.7-34.3 [facility] Comment on above: Performed By: #### T 4F, CMP, LDH, TSH3, CBC #### [facility] [address] [place] [address] [place] #### ACTH #### [facility] , MCHC Auto (RBC) [Mass/Vol]Or dered By: Sly Benson on 01-20-2024 MCHC (RBC) [Mass/Vol] 33.7 g/dL 32.0-35.0 [facility] MCV [Entitic volume] by Auto mated countOrdered By: Sly Benson on 01-20-2024 MCV (RBC) [Entitic vol] 90.4 fL Normal 80-100 [facility] Comment on above: Performed By: #### T 4F, CMP, LDH, TSH3, CBC #### [facility] [address] [place] [address] #### ACTH #### [facility] , Neutrophils [#/volume] in Bl ood by Automated countOrdered By: Sly Benson on 01-20-2024 Neutrophils (Bld) [#/Vol] 6.6 10*3/uL Normal 1.8-7.7 [facility] Comment on above: Performed By: #### T 4F, CMP, LDH, TSH3, CBC #### [facility] [address] [place] [address] [place] #### ACTH #### [facility] , No Panel InformationOrdered By: Sly Benson on 01-20-2024 Adrenocorticotropic Hormone 21.6 pg/mL 7.2-63.3 [facility] Comment on above: ACTH reference inter jamel for samples collected between 7 and10 AM.Performed at: [facility] [address] [id number] Director: Coleman Lacy PhD, Phone: [phone] Estimated GFR (CKD-EPI) > 60.0 mL/Min [facility] Creatinine Clearance (Chem 58.76 [facility] Nucleated erythrocytes [Pres ence] in Blood by Automated countOrdered By: Sly Benson on 01-20-2024 Nucleated RBC Auto Ql (Bld) 0.0 /100{WBC} 0-0.5 [facility] Platelet mean volume [Entiti c volume] in Blood by Automated countOrdered By: Sly Benson on 01-20-2024 Platelet mean volume (Bld) [Entitic vol] 7.3 fL Normal 6.3-10.7 [facility] Comment on above: Performed By: #### T 4F, CMP, LDH, TSH3, CBC #### [facility] [address] [place] [address] [place] #### ACTH #### [facility] , Platelets [#/volume] in Bloo d by Automated countOrdered By: Sly Benson on 01-20-2024 Platelets (Bld) [#/Vol] 182 10*3/uL Normal 150-450 [facility] Comment on above: Performed By: #### T 4F, CMP, LDH, TSH3, CBC #### [facility] [address] [place] [address] [place] #### ACTH #### [facility] , Potassium [Moles/volume] in Serum or PlasmaOrdered By: Sly Benson on 01-20-2024 Potassium [Moles/Vol] 3.6 mmol/L Normal 3.5-5.1 [facility] Comment on above: Performed By: #### T 4F, CMP, LDH, TSH3, CBC #### [facility] [address] [place] [address] [place] #### ACTH #### [facility] , Protein [Mass/volume] in Ser um or PlasmaOrdered By: Sly Benson on 01-20-2024 Protein [Mass/Vol] 6.9 g/dL Normal 6.4-8.[address] [facility] Comment on above: Performed By: #### T 4F, CMP, LDH, TSH3, CBC #### [facility] [address] [place] [address] [place] #### ACTH #### [facility] , Serum globulin measurement b y calculation (mass/volume)Ordered By: Sly Benson on 01-20-2024 Globulin (S) [Mass/Vol] 2.9 g/dL [facility] Comment on above: Performed By: #### T 4F, CMP, LDH, TSH3, CBC #### [facility] [address] [place] [address] [place] #### ACTH #### [facility] , Serum or plasma albumin/glob ulin mass ratioOrdered By: Sly Benson on 01-20-2024 Albumin/Globulin [Mass ratio] 1.4 {ratio} [facility] Comment on above: Performed By: #### T 4F, CMP, LDH, TSH3, CBC #### [facility] [address] [place] [address] #### ACTH #### [facility] , Serum or plasma anion gap de terminationOrdered By: Sly Benson on 01-20-2024 Anion gap [Moles/Vol] 11.5 mmol/L Normal 6.0-15.0 [facility] Comment on above: Performed By: #### T 4F, CMP, LDH, TSH3, CBC #### [facility] [address] [place] [address] [place] #### ACTH #### [facility] , Sodium [Moles/volume] in Ser um or PlasmaOrdered By: Sly Benson on 01-20-2024 Sodium [Moles/Vol] 139 mmol/L Normal 136-[address] [facility] Comment on above: Performed By: #### T 4F, CMP, LDH, TSH3, CBC #### [facility] [address] [place] [address] [place] #### ACTH #### [facility] , Thyrotropin [Units/volume] i n Serum or PlasmaOrdered By: Sly Benson on 01-20-2024 TSH Qn 2.04 m[IU]/L Normal 0.45-5.33 [facility] Comment on above: Result Comment: PERF ORMED BY: [place] [address] PATHOLOGIST CAR SERVICER WAYLON SAUNDERS M.D. Performed By: #### T 4F, CMP, LDH, TSH3, CBC ####[facility] [address] [place] [address] [place]#### ACTH ####[facility] , Thyroxine (T4) free [Mass/vo lume] in Serum or PlasmaOrdered By: Sly Benson on 01-20-2024 Free T4 [Mass/Vol] 1.16 ng/dL High 0.61-1.[address] [facility] Comment on above: Performed By: #### T 4F, CMP, LDH, TSH3, CBC #### [facility] [address] [place] [address] [place] #### ACTH #### [facility] , Urea nitrogen [Mass/volume] in Serum or PlasmaOrdered By: Sly Benson on 01-20-2024 Urea nitrogen [Mass/Vol] 19 mg/dL Normal 7-25 [facility] Comment on above: Performed By: #### T 4F, CMP, LDH, TSH3, CBC #### [facility] [address] [place] [address] #### ACTH #### [facility] , XR Wrist - left 3 ViewsOrder ed By: Caty Gaona on 2023 Radiology Study observation (narrative) [facility] XR Wrist - left 3 ViewsOrder ed By: Caty Gaona on 10-01-2023 [facility] [employer] Basic Metabolic Panelon Anion gap [Moles/Vol] 7 mmol/L 5 - 15 mmol/L [facility] Calcium [Mass/Vol] 9.5 mg/dL 8.5 - 10. 5 mg/dL [facility] Chloride [Moles/Vol] 101 mmol/L 98 - 10 9 mmol/L [facility] CO2 [Moles/Vol] 32 mmol/L 22 - 32 mmol/L [facility] Creatinine [Mass/Vol] 0.96 mg/dL 0.40 - 1.00 mg/dL [facility] Comment on above: METHOD TRACEABLE TO [facility] STANDARD eGFR (CKD-EPI)non-race dependent 61 - PINF [facility] Comment on above: Reported eGFR is based on the CKD-EPI 2020 equation that does not use a race coefficient. Glucose [Mass/Vol] 107 mg/dL High 65 - 99 mg/dL [facility] Interpretation and review of laboratory results Abnormal [facility] Potassium [Moles/Vol] 3.3 mmol/L Low 3.5 - 5.0 mmol/L [facility] Sodium [Moles/Vol] 140 mmol/L 134 - 146 mmol/L [facility] Urea nitrogen [Mass/Vol] 22 mg/dL 5 - 27 mg/dL [facility] CBC without diffon 4 Erythrocyte distribution width (RBC) [Ratio] 13.9 % 11.5 - 15.0 % [facility] Hematocrit (Bld) [Volume fraction] 39.4 % 35 - 47 % [facility] Hemoglobin (Bld) [Mass/Vol] 13.5 g/dL 11.7 - 15.5 g/dL [facility] MCH (RBC) [Entitic mass] 30.4 pg 27 - 34 pg [facility] MCHC (RBC) [Mass/Vol] 34.2 g/dL 32 - 3 6 g/dL [facility] MCV (RBC) [Entitic vol] 89 fL 80 - 100 fL [facility] Platelet mean volume (Bld) [Entitic vol] 7.9 fL 7 - 12 fL [facility] Platelets (Bld) [#/Vol] 202 10*3/uL [facility] RBC (Bld) [#/Vol] 4.43 10*6/uL [facility] WBC corrected for nucl RBC Auto (Bld) [#/Vol] 6.6 [facility] Lipid 1996 panelon 4 Cholesterol [Mass/Vol] 154 mg/dL 150 - 200 mg/dL [facility] Cholesterol in HDL [Mass/Vol] 76 mg/dL 39 - PINF mg/dL [facility] Comment on above: HDL <40 mg/dL - High Risk HDL > or = 40mg/dL- Desirable HDL >60 mg/dL - Negative Risk Cholesterol in LDL [Mass/Vol] 52 mg/dL NINF - 130 mg/dL [facility] Comment on above: LDL <100 mg/dL - Desirable LDL >160 mg/dL - High Risk Cholesterol in VLDL [Mass/Vol] 26 mg/dL 0 - 30 mg/dL [facility] Cholesterol.total/Chol esterol in HDL [Mass ratio] 2.0 {ratio} 1.0 - 5.0 [facility] Triglyceride [Mass/Vol] 132 mg/dL 27 - 150 mg/dL [facility] Magnesiumon 09-15-2023 Magnesium [Mass/Vol] 1.9 mg/dL 1.8 - 2 .6 mg/dL [facility] No Panel Informationon 09-14 [facility] Parathyrin.intact [Mass/Vol] on 09-15-2023 [facility] Parathyroid Hormone, intacto n 09-15-2023 Parathyrin.intact [Mass/Vol] 36 pg/mL 12 - 88 pg/mL [facility] Phosphoruson 09-15-2023 Phosphate [Mass/Vol] 3.6 mg/dL 2.4 - 4 .9 mg/dL [facility] Uric acidon 09-15-2023 Urate [Mass/Vol] 5.4 mg/dL 2.6 - 7.2 mg/dL [facility] Vitamin D 25 hydroxyon 09-14 Vitamin D+Metabolites [Mass/Vol] 28.4 ng/mL Low 30 - 100 ng/mL [facility] Comment on above: Vitamin D status 25 [place] Vitamin D Deficiency <20 ng/mL Insufficiency 20-29 ng/mL Sufficiency 30-100 ng/mL Toxicity >100 ng/mL NOTE: A pediatric reference range has not been established by the dry cleaning manager of this kit. The [employer] recommends a Vitamin D level of = or >20ng/mL in infants and children. Vitamin D+Metabolites [Mass/ Vol]on 09-15-2023 Interpretation and review of laboratory results Abnormal [employer] [facility] Complete Blood Count Auto Di ffon 08-07-2023 Basophils (Bld) [#/Vol] 0.0 10*3/uL Normal 0.0-0.2 [facility] Comment on above: Result Comment: PERF ORMED BY: [place] [address] PATHOLOGIST CAR SERVICER WAYLON SAUNDERS M.D. Performed By: #### C BC ####[address] Basophils/100 WBC (Bld) 0.5 % Normal . [facility] Comment on above: Performed By: #### C BC ####[place] [id number] [facility] Eosinophils (Bld) [#/Vol] 0.0 10*3/uL Normal 0.0-0.45 [facility] Comment on above: Performed By: #### C BC ####[address] Eosinophils/100 WBC (Bld) 0.1 % Normal . [facility] Comment on above: Performed By: #### C BC ####[place] [id number] [facility] Erythrocyte distribution width (RBC) [Ratio] 13.6 % Normal 11.9-15.3 [facility] Physician Group Comment on above: Performed By: #### C BC ####[place] [id number] [facility] Hematocrit (Bld) [Volume fraction] 37.0 % Normal 34.0-46.4 [facility] Comment on above: Performed By: #### C BC ####[address] Hemoglobin (Bld) [Mass/Vol] 12.8 g/dL Normal 11.8-15.4 [facility] Comment on above: Performed By: #### C BC ####[address] Lymphocytes (Bld) [#/Vol] 1.1 10*3/uL Normal 1.00-4.8 [facility] Comment on above: Performed By: #### C BC ####[address] Lymphocytes/100 WBC (Bld) 13.9 % Normal . [facility] Comment on above: Performed By: #### C BC ####[address] MCH (RBC) [Entitic mass] 30.2 pg Normal 24.7-34.3 [facility] Comment on above: Performed By: #### C BC ####[address] MCV (RBC) [Entitic vol] 87.3 fL Normal 80-100 [facility] Comment on above: Performed By: #### C BC ####[address] Mean Corpuscular HGB Conc 34.6 g/dL Normal 32.0-35.0 [facility] Comment on above: Performed By: #### C BC ####[address] Monocytes (Bld) [#/Vol] 0.5 10*3/uL Normal 0.0-0.8 [facility] Comment on above: Performed By: #### C BC ####[address] Monocytes/100 WBC (Bld) 6.4 % Normal . [facility] Comment on above: Performed By: #### C BC ####[place] [id number] [facility] Neutrophils (Bld) [#/Vol] 6.0 10*3/uL Normal 1.8-7.7 [facility] Comment on above: Performed By: #### C BC ####[place] [id number] [facility] Neutrophils/100 WBC (Bld) 79.1 % Normal . [facility] Comment on above: Performed By: #### C BC ####[place] [id number] [facility] NRBC% 0.0 /100{WBC} Normal 0-0.5 [facility] Comment on above: Performed By: #### C BC ####[place] [id number] [facility] Platelet mean volume (Bld) [Entitic vol] 7.3 fL Normal 6.3-10.7 [facility] Comment on above: Performed By: #### C BC ####[place] [id number] [facility] Platelets (Bld) [#/Vol] 202 10*3/uL Normal 150-450 [facility] Comment on above: Performed By: #### C BC ####[place] [id number] [facility] RBC (Bld) [#/Vol] 4.24 10*6/uL Normal 3.60-5.00 [facility] Comment on above: Performed By: #### C BC ####[place] [id number] [facility] WBC (Bld) [#/Vol] 7.6 10*3/uL Normal 3.8-11.6 [facility] Comment on above: Performed By: #### C BC ####[place] [id number] [facility] Adrenocorticotropic Hormone PLon 08-06-[address] 21.1 pg/mL Normal 7.2-63.3 [facility] Comment on above: Result Comment: ACTH reference interval for samples collected between 7 and 10 AM. Performed at: - [facility] [id number] House Parent: Coleman Lacy PhD, Phone: [phone] PERFORMED BY: [facility] [address] [place] [address] PATHOLOGIST [employer] SERV[employer] WAYLON SAUNDERS M.D. Performed By: #### A CT #### [facility] , Alanine aminotransferase [En zymatic activity/volume] in Serum or PlasmaOrdered By: Sly Benson on 08-06-2023 ALT [Catalytic activity/Vol] 23 U/L Normal 7-52 [facility] Comment on above: Performed By: #### T SH3, T4F, LDH, CMP ####[place] [address] [address] Albumin [Mass/volume] in Ser um or Plasma by Bromocresol green (BCG) dye binding methoOrdered By: Sly Benson on 08-06-2023 Albumin BCG dye [Mass/Vol] 4.0 g/dL 3.5-5.7 [facility] Alkaline phosphatase [Enzyma tic activity/volume] in Serum or PlasmaOrdered By: Sly Benson on 08-06-2023 ALP [Catalytic activity/Vol] 95 U/L Normal 34-104 [facility] Comment on above: Performed By: #### T SH3, T4F, LDH, CMP ####[place] [address] [place] [id number] [facility] Aspartate aminotransferase [ Enzymatic activity/volume] in Serum or PlasmaOrdered By: Sly Benson on 08-06-2023 AST [Catalytic activity/Vol] 29 U/L Normal 13-39 [facility] Comment on above: Performed By: #### T SH3, T4F, LDH, CMP ####[address] [address] [facility] Bilirubin.total [Mass/volume ] in Serum or PlasmaOrdered By: Sly Benson on 08-06-2023 Bilirubin [Mass/Vol] 0.6 mg/dL Normal 0.3-1.0 [facility] Comment on above: Performed By: #### T SH3, T4F, LDH, CMP ####[facility] [id number] [place] [id number] [facility] CT abdomen pelvis w conon CT abdomen pelvis w con [facility] Main [place] [address] [place] [address] CT Scan Report Signed Patient: Theresa Luu MR#: [id number] 322 : 1945 Acct:[id number] Age/Sex: 77 / F ADM Date: 08/06/23 [facility]: [facility]: Sly Benson II DO Copies to: Sly Benson II, DO Ordering Provider: Sly Benson II, DO Date of Service: 08/06/23 CT/CT abdomen pelvis w con: surveillance ([id number]) CT/CT chest w con: surveillance CT CHEST, [...] Monroe Jr., D.O.08/06/2023 2:43 PM Dictation Location: [place] [address] Transcribed By: [facility] 08/06/23 1443 Dictated By: Sylvain Monroe Jr, DO 08/06/23 1430 Signed By: 08/06/23 1443 Normal [facility] Calcium [Mass/volume] in Ser um or PlasmaOrdered By: Sly Benson on 08-06-2023 Calcium [Mass/Vol] 9.2 mg/dL Normal 8.6-10.[address] [facility] Comment on above: Performed By: #### T SH3, T4F, LDH, CMP ####[facility] [address] [place] [address] [facility] Carbon dioxide, total [Moles /volume] in Serum or PlasmaOrdered By: Sly Benson on 08-06-2023 CO2 [Moles/Vol] 30.5 mmol/L Normal 21.0-31.0 [facility] Comment on above: Performed By: #### T SH3, T4F, LDH, CMP ####[facility] [id number] [place] [id number] [facility] Chloride [Moles/volume] in S mellissa or PlasmaOrdered By: Sly Benson on 08-06-2023 Chloride [Moles/Vol] 104 mmol/L Normal 98-107 [facility] Comment on above: Performed By: #### T SH3, T4F, LDH, CMP ####[address] [address] [facility] Comprehensive Metabolic Pane eileen 08-06-2023 Albumin [Mass/Vol] 4.0 g/dL Normal 3.5-5.7 [facility] Comment on above: Performed By: #### T SH3, T4F, LDH, CMP ####[address] [address] [facility] Anion gap [Moles/Vol] Not performed Normal 6.0-15.0 [facility] Comment on above: Performed By: #### T SH3, T4F, LDH, CMP ####[address] [address] [facility] Creatinine Clr Calc Pharmacy 57.70 Normal [facility] Comment on above: Performed By: #### T SH3, T4F, LDH, CMP ####[address] [address] [facility] GFR/1.73 sq M.predicted MDRD (S/P/Bld) [Vol rate/Area] mL/min/{1.73_m2} Normal [facility] Comment on above: Performed By: #### T SH3, T4F, LDH, CMP ####[address] [address] [facility] Potassium Normal 3.5-5.1 [facility] Comment on above: Result Comment: Spec imen hemolyzed, redraw requested Performed By: #### T SH3, T4F, LDH, CMP ####[address] [address] [facility] Creatinine [Mass/volume] in Serum or PlasmaOrdered By: Sly Benson on 08-06-2023 Creatinine [Mass/Vol] 0.87 mg/dL Normal 0.60-1.20 [facility] Comment on above: Performed By: #### T SH3, T4F, LDH, CMP ####[address] [address] [facility] Glucose [Mass/volume] in Ser um or PlasmaOrdered By: Sly Benson on 08-06-2023 Glucose [Mass/Vol] 95 mg/dL Normal 70-[address] [facility] Comment on above: ADA recommended refe rence rangeRandom Glucose Reference Range is dependent on time and content of last meal. Glucose of more than 200 mg/dL in a nonstressed, ambulatory subject supports the diagnosis of Diabetes Mellitus. Result Comment: [place] om Glucose Reference Range is dependent on time and content of last meal. Glucose of more than 200 mg/dL in a nonstressed, ambulatory subject supports the diagnosis of Diabetes Mellitus. ADA recommended reference range Performed By: #### T SH3, T4F, LDH, CMP ####[facility] [address] [place] [address] [facility] LDH Lactate Dehydrogenaseon 08-06-2023 LDH Lactate Dehydrogenase Normal 140-271 [facility] Comment on above: Result Comment: Spec imen hemolyzed, redraw requested Performed By: #### T SH3, T4F, LDH, CMP ####[facility] [place] [id number] [place] Lactate dehydrogenase [Enzym atic activity/volume] in Serum or Plasma by Lactate to pyOrdered By: Sly Benson on 08-06-2023 LDH Lactate to pyruvate reaction [Catalytic activity/Vol] 173 U/L 140-271 [facility] No Panel InformationOrdered By: Sly Benson on 08-06-2023 Estimated GFR (CKD-EPI) > 60.0 mL/Min [facility] Creatinine Clearance (Chem 57.70 [facility] Potassium [Moles/volume] in Serum or PlasmaOrdered By: Sly Benson on 08-06-2023 Potassium [Moles/Vol] 3.6 mmol/L Normal 3.5-5.1 [facility] Comment on above: Order Comment: SPECI MEN HEMOLYZED. NOTIFIED CHON. Performed By: #### R EDRAW LDH, REDRAW K #### [facility] [address] [place] [id number] [place] Protein [Mass/volume] in Ser um or PlasmaOrdered By: Sly Benson on 08-06-2023 Protein [Mass/Vol] 7.0 g/dL Normal 6.4-8.[address] [facility] Comment on above: Performed By: #### T SH3, T4F, LDH, CMP ####[place] [address] Redraw LDHon 08-06-2023 Redraw LDH 173 U/L Normal 140-271 [facility] Comment on above: Order Comment: SPECI MEN HEMOLYZED. NOTIFIED CHON. Result Comment: PERF ORMED BY: [facility] [address] [facility] [place] [address] PATHOLOGIST [employer] WAYLON SAUNDERS M.D. Performed By: #### R EDRAW LDH, REDRAW K #### [address] Serum globulin measurement b y calculation (mass/volume)Ordered By: Sly Benson on 08-06-2023 Globulin (S) [Mass/Vol] 3.0 g/dL Normal [facility] Comment on above: Performed By: #### T SH3, T4F, LDH, CMP ####[address] Serum or plasma albumin/glob ulin mass ratioOrdered By: Sly Benson on 08-06-2023 Albumin/Globulin [Mass ratio] 1.3 {ratio} [facility] Comment on above: Performed By: #### T SH3, T4F, LDH, CMP ####[place] [address] [address] Serum or plasma anion gap de terminationOrdered By: Sly Benson on 08-06-2023 Anion gap [Moles/Vol] TNP [facility] Comment on above: Test not performed Sodium [Moles/volume] in Ser um or PlasmaOrdered By: Sly Benson on 08-06-2023 Sodium [Moles/Vol] 141 mmol/L Normal 136-[address] [facility] Comment on above: Performed By: #### T SH3, T4F, LDH, CMP ####[place] [address] [address] Thyrotropin [Units/volume] i n Serum or PlasmaOrdered By: Sly Benson on 08-06-2023 TSH Qn 2.81 m[IU]/L Normal 0.45-5.33 [facility] Comment on above: Result Comment: PERF ORMED BY: [facility] [address] [place] [address] PATHOLOGIST [employer] SERVIC[employer] WAYLON SAUNDERS M.D. Performed By: #### T SH3, T4F, LDH, CMP ####[address] Thyroxine (T4) free [Mass/vo lume] in Serum or PlasmaOrdered By: Sly Benson on 08-06-2023 Free T4 [Mass/Vol] 1.13 ng/dL High 0.61-1.[address] [facility] Comment on above: Performed By: #### T SH3, T4F, LDH, CMP ####[address] Urea nitrogen [Mass/volume] in Serum or PlasmaOrdered By: Sly Benson on 08-06-2023 Urea nitrogen [Mass/Vol] 23 mg/dL Normal 7- [facility] Comment on above: Performed By: #### T SH3, T4F, LDH, CMP ####[address] Adrenocorticotropic Hormone PLon 03-05-[address] 25.6 pg/mL Normal 7.2-63.3 [facility] Comment on above: Result Comment: ACTH reference interval for samples collected between 7 and 10 AM. Performed at: - [facility] [id number] House Parent: Coleman Lacy PhD, Phone: [phone] PERFORMED BY: [facility] [address] [place] [address] PATHOLOGIST [employer] SERVIC[employer] WAYLON SAUNDERS M.D. Performed By: #### C BC ####[place] [address] [place]#### ACTH ####[facility] , Alanine aminotransferase [En zymatic activity/volume] in Serum or PlasmaOrdered By: Sly Benson on 03-05-2023 ALT [Catalytic activity/Vol] 22 U/L Normal 7-52 [facility] Comment on above: Order Comment: STAT BUN/CREAT FOR CT PER CHAGO IN CC DRAW 02/23/23 Performed By: #### C MP, TSH3, LDH, T4F ####[address] Albumin [Mass/volume] in Ser um or Plasma by Bromocresol green (BCG) dye binding methoOrdered By: Sly Benson on 03-05-2023 Albumin BCG dye [Mass/Vol] 4.1 g/dL 3.5-5.7 [facility] Alkaline phosphatase [Enzyma tic activity/volume] in Serum or PlasmaOrdered By: Sly Benson on 03-05-2023 ALP [Catalytic activity/Vol] 106 U/L High 34-104 [facility] Comment on above: Order Comment: STAT BUN/CREAT FOR CT PER CHAGO IN CC DRAW 02/23/23 Performed By: #### C MP, TSH3, LDH, T4F ####[address] Aspartate aminotransferase [ Enzymatic activity/volume] in Serum or PlasmaOrdered By: Sly Benson on 03-05-2023 AST [Catalytic activity/Vol] 23 U/L Normal 13-39 [facility] Comment on above: Order Comment: STAT BUN/CREAT FOR CT PER CHAGO IN CC DRAW 02/23/23 Performed By: #### C MP, TSH3, LDH, T4F ####[address] Automated basophil %Ordered By: Sly Benson on 03-05-2023 Basophils/100 WBC (Bld) 0.8 % Normal . [facility] Comment on above: Performed By: #### C BC ####[place] [address] [place]#### ACTH ####[facility] , Automated basophil countOrde red By: Sly Benson on 03-05-2023 Basophils (Bld) [#/Vol] 0.0 10*3/uL Normal 0.0-0.2 [facility] Comment on above: Result Comment: PERF ORMED BY: [facility] [address] [place] [address] PATHOLOGIST [employer]IC[employer] WAYLON SAUNDERS M.D. Performed By: #### C BC ####[place] [address] [place]#### ACTH ####[facility] , Automated blood monocyte cou ntOrdered By: Sly Benson on 03-05-2023 Monocytes (Bld) [#/Vol] 0.5 10*3/uL Normal 0.0-0.8 [facility] Comment on above: Performed By: #### C BC ####[place] [address] [place]#### ACTH ####[facility] , Automated eosinophil %Ordere d By: Sly Benson on 03-05-2023 Eosinophils/100 WBC (Bld) 1.7 % Normal . [facility] Comment on above: Performed By: #### C BC ####[place] [address] [place]#### ACTH ####[facility] , Automated eosinophil countOr dered By: Sly Benson on 03-05-2023 Eosinophils (Bld) [#/Vol] 0.1 10*3/uL Normal 0.0-0.45 [facility] Comment on above: Performed By: #### C BC ####[place] [address] [place]#### ACTH ####[facility] , Automated monocyte %Ordered By: Sly Benson on 03-05-2023 Monocytes/100 WBC (Bld) 8.4 % Normal . [facility] Comment on above: Performed By: #### C BC ####[place] [address]#### ACTH ####[facility] , Automated neutrophil %Ordere d By: Sly Benson on 03-05-2023 Neutrophils/100 WBC (Bld) 66.0 % Normal . [facility] Comment on above: Performed By: #### C BC ####[address]#### ACTH ####[facility] , Bilirubin.total [Mass/volume ] in Serum or PlasmaOrdered By: Sly Benson on 03-05-2023 Bilirubin [Mass/Vol] 0.6 mg/dL Normal 0.3-1.0 [facility] Comment on above: Order Comment: STAT BUN/CREAT FOR CT PER CHAGO IN CC DRAW 02/23/23 Performed By: #### C MP, TSH3, LDH, T4F ####[address] abdomen pelvis w conon CT abdomen pelvis w con [facility] [place] [address] CT Scan Report Signed Patient: Theresa Luu MR#: [id number] 322 : 1945 Acct:[id number] Age/Sex: 77 / F ADM Date: 03/05/23 Loc: Room: Type: [facility] RCR Attending Dr: Sly Benson II DO Copies to: Sly Benson II, DO Ordering Provider: Sly Benson II, DO Date of Service: 03/05/23 CT/CT abdomen pelvis w con: surveilance ([id number]) CT/CT chest w con: surveilance CT CHEST, [...] Monroe Jr., D.OWilbert03/05/2023 3:12 PM Dictation Location: [place] [address] Transcribed By: [facility] 03/05/23 1512 Dictated By: Sylvain Monroe Jr, DO 03/05/23 1504 Signed By: 03/05/23 1512 Normal [facility] Physician [facility] Calcium [Mass/volume] in Ser um or PlasmaOrdered By: Sly Benson on 03-05-2023 Calcium [Mass/Vol] 9.4 mg/dL Normal 8.6-10.[address] [facility] Comment on above: Order Comment: STAT BUN/CREAT FOR CT PER CHAGO IN CC DRAW 02/23/23 Performed By: #### C MP, TSH3, LDH, T4F ####[address] Carbon dioxide, total [Moles /volume] in Serum or PlasmaOrdered By: Sly Benson on 03-05-2023 CO2 [Moles/Vol] 28.0 mmol/L Normal 21.0-31.0 [facility] Comment on above: Order Comment: STAT BUN/CREAT FOR CT PER CHAGO IN CC DRAW 02/23/23 Performed By: #### C MP, TSH3, LDH, T4F ####[address] Chloride [Moles/volume] in S mellissa or PlasmaOrdered By: Sly Benson on 03-05-2023 Chloride [Moles/Vol] 104 mmol/L Normal 98-107 [facility] Comment on above: Order Comment: STAT BUN/CREAT FOR CT PER CHAGO IN CC DRAW 02/23/23 Performed By: #### C MP, TSH3, LDH, T4F ####[address] Complete Blood Count Auto Di ffon 03-05-2023 Mean Corpuscular HGB Conc 34.3 g/dL Normal 32.0-35.0 [facility] Comment on above: Performed By: #### C BC ####[address]#### ACTH ####[facility] , NRBC% 0.0 /100{WBC} Normal 0-0.5 [facility] Comment on above: Performed By: #### C BC ####[address]#### ACTH ####[facility] , Comprehensive Metabolic Pane eileen 03-05-2023 Albumin [Mass/Vol] 4.1 g/dL Normal 3.5-5.7 [facility] Comment on above: Order Comment: STAT BUN/CREAT FOR CT PER CHAGO IN CC DRAW 02/23/23 Performed By: #### C MP, TSH3, LDH, T4F ####[place] [address] [place] [id number] [facility] Creatinine Clr Calc Pharmacy 54.20 Normal [facility] Comment on above: Order Comment: STAT BUN/CREAT FOR CT PER CHAGO IN CC DRAW 02/23/23 Performed By: #### C MP, TSH3, LDH, T4F ####[address] GFR/1.73 sq M.predicted MDRD (S/P/Bld) [Vol rate/Area] mL/min/{1.73_m2} Normal [facility] Comment on above: Order Comment: STAT BUN/CREAT FOR CT PER CHAGO IN CC DRAW 02/23/23 Performed By: #### C MP, TSH3, LDH, T4F ####[place] [id number] [facility] Creatinine [Mass/volume] in Serum or PlasmaOrdered By: Sly Benson on 03-05-2023 Creatinine [Mass/Vol] 0.91 mg/dL Normal 0.60-1.20 [facility] Comment on above: Order Comment: STAT BUN/CREAT FOR CT PER CHAGO IN CC DRAW 02/23/23 Performed By: #### C MP, TSH3, LDH, T4F ####[place] [id number] [facility] Erythrocyte distribution wid th [Ratio] by Automated countOrdered By: Sly Benson on 03-05-2023 Erythrocyte distribution width (RBC) [Ratio] 14.3 % Normal 11.9-15.3 [facility] Comment on above: Performed By: #### C BC ####[place] [id number] [place]#### ACTH ####[facility] , Erythrocytes [#/volume] in B lood by Automated countOrdered By: Sly Benson on 03-05-2023 RBC (Bld) [#/Vol] 4.51 10*6/uL Normal 3.60-5.00 [facility] Comment on above: Performed By: #### C BC ####[place] [address] [address]#### ACTH ####[facility] , Glucose [Mass/volume] in Ser um or PlasmaOrdered By: Sly Benson on 03-05-2023 Glucose [Mass/Vol] 102 mg/dL High 70-[address] [facility] Comment on above: ADA recommended refe rence rangeRandom Glucose Reference Range is dependent on time and content of last meal. Glucose of more than 200 mg/dL in a nonstressed, ambulatory subject supports the diagnosis of Diabetes Mellitus. Order Comment: STAT BUN/CREAT FOR CT PER CHAGO IN CC DRAW 02/23/23 Result Comment: [place] om Glucose Reference Range is dependent on time and content of last meal. Glucose of more than 200 mg/dL in a nonstressed, ambulatory subject supports the diagnosis of Diabetes Mellitus. ADA recommended reference range Performed By: #### C MP, TSH3, LDH, T4F ####[place] [address] [address] Hematocrit [Volume Fraction] of Blood by Automated countOrdered By: Sly Benson on 03-05-2023 Hematocrit (Bld) [Volume fraction] 39.8 % Normal 34.0-46.4 [facility] Comment on above: Performed By: #### C BC ####[place] [address]#### ACTH ####[facility] , Hemoglobin [Mass/volume] in BloodOrdered By: Sly Benson on 03-05-2023 Hemoglobin (Bld) [Mass/Vol] 13.6 g/dL Normal 11.8-15.4 [facility] Comment on above: Performed By: #### C BC ####[address] [place] [address] [place]#### ACTH ####[facility] , LDH Lactate Dehydrogenaseon 03-05-2023 LDH Lactate Dehydrogenase 197 U/L Normal 140-271 [facility] Comment on above: Order Comment: STAT BUN/CREAT FOR CT PER CHAGO IN CC DRAW 02/23/23 Performed By: #### C MP, TSH3, LDH, T4F ####[place] [address] Lactate dehydrogenase [Enzym atic activity/volume] in Serum or Plasma by Lactate to pyOrdered By: Sly Benson on 03-05-2023 LDH Lactate to pyruvate reaction [Catalytic activity/Vol] 197 U/L 140-271 [facility] Leukocytes [#/volume] correc margot for nucleated erythrocytes in Blood by Automated counOrdered By: Sly Benson on 03-05-2023 WBC corrected for nucl RBC Auto (Bld) [#/Vol] 6.3 10*3/uL 3.8-11.6 [facility] Leukocytes [#/volume] in Blo od by Automated countOrdered By: Sly Benson on 03-05-2023 WBC (Bld) [#/Vol] 6.3 10*3/uL Normal 3.8-11.[address] [facility] Comment on above: Performed By: #### C BC ####[place] [address] [place]#### ACTH ####[facility] , Lymphocytes [#/volume] in Bl ood by Automated countOrdered By: Sly Benson on 03-05-2023 Lymphocytes (Bld) [#/Vol] 1.4 10*3/uL Normal 1.00-4.8 [facility] Comment on above: Performed By: #### C BC ####[place] [address] [place]#### ACTH ####[facility] , Lymphocytes/100 leukocytes i n Blood by Automated countOrdered By: Sly Benson on 03-05-2023 Lymphocytes/100 WBC (Bld) 23.1 % Normal . [facility] Comment on above: Performed By: #### C BC ####[place] [address] [place]#### ACTH ####[facility] , MCH [Entitic mass] by Automa margot countOrdered By: Sly Benson on 03-05-2023 MCH (RBC) [Entitic mass] 30.2 pg Normal 24.7-34.3 [facility] Comment on above: Performed By: #### C BC ####[place] [address] [place]#### ACTH ####[facility] , MCHC Auto (RBC) [Mass/Vol]Or dered By: Sly Benson on 03-05-2023 MCHC (RBC) [Mass/Vol] 34.3 g/dL 32.0-35.0 [facility] MCV [Entitic volume] by Auto mated countOrdered By: Sly Benson on 03-05-2023 MCV (RBC) [Entitic vol] 88.1 fL Normal 80-100 [facility] Comment on above: Performed By: #### C BC ####[place] [address] [place]#### ACTH ####[facility] , Neutrophils [#/volume] in Bl ood by Automated countOrdered By: Sly Benson on 03-05-2023 Neutrophils (Bld) [#/Vol] 4.1 10*3/uL Normal 1.8-7.7 [facility] Comment on above: Performed By: #### C BC ####[place] [address] [place]#### ACTH ####[facility] , No Panel InformationOrdered By: Sly Benson on 03-05-2023 Adrenocorticotropic Hormone 25.6 pg/mL 7.2-63.3 [facility] Comment on above: ACTH reference inter jamel for samples collected between 7 and10 AM.Performed at: - [facility] [id number] Director: Coleman Lacy PhD, Phone: [phone] Estimated GFR (CKD-EPI) > 60.0 mL/Min [facility] Creatinine Clearance (Chem 54.20 [facility] Nucleated erythrocytes [Pres ence] in Blood by Automated countOrdered By: Sly Benson on 03-05-2023 Nucleated RBC Auto Ql (Bld) 0.0 /100{WBC} 0-0.5 [facility] Platelet mean volume [Entiti c volume] in Blood by Automated countOrdered By: Sly Benson on 03-05-2023 Platelet mean volume (Bld) [Entitic vol] 7.2 fL Normal 6.3-10.7 [facility] Comment on above: Performed By: #### C BC ####[address]#### ACTH ####[facility] , Platelets [#/volume] in Bloo d by Automated countOrdered By: Sly Benson on 03-05-2023 Platelets (Bld) [#/Vol] 190 10*3/uL Normal 150-450 [facility] Comment on above: Performed By: #### C BC ####[address]#### ACTH ####[facility] , Potassium [Moles/volume] in Serum or PlasmaOrdered By: Sly Benson on 03-05-2023 Potassium [Moles/Vol] 3.8 mmol/L Normal 3.5-5.1 [facility] Comment on above: Order Comment: STAT BUN/CREAT FOR CT PER CHAGO IN CC DRAW 02/23/23 Performed By: #### C MP, TSH3, LDH, T4F ####[address] Protein [Mass/volume] in Ser um or PlasmaOrdered By: Sly Benson on 03-05-2023 Protein [Mass/Vol] 6.9 g/dL Normal 6.4-8.[address] [facility] Comment on above: Order Comment: STAT BUN/CREAT FOR CT PER CHAGO IN CC DRAW 02/23/23 Performed By: #### C MP, TSH3, LDH, T4F ####[address] Serum globulin measurement b y calculation (mass/volume)Ordered By: Sly Benson on 03-05-2023 Globulin (S) [Mass/Vol] 2.8 g/dL Normal [facility] Comment on above: Order Comment: STAT BUN/CREAT FOR CT PER CHAGO IN CC DRAW 02/23/23 Performed By: #### C MP, TSH3, LDH, T4F ####[address] Serum or plasma albumin/glob ulin mass ratioOrdered By: Sly Benson on 03-05-2023 Albumin/Globulin [Mass ratio] 1.5 {ratio} Normal [facility] Comment on above: Order Comment: STAT BUN/CREAT FOR CT PER CHAGO IN CC DRAW 02/23/23 Performed By: #### C MP, TSH3, LDH, T4F ####[address] Serum or plasma anion gap de terminationOrdered By: Sly Benson on 03-05-2023 Anion gap [Moles/Vol] 12.8 mmol/L Normal 6.0-15.0 [facility] Comment on above: Order Comment: STAT BUN/CREAT FOR CT PER CHAGO IN CC DRAW 02/23/23 Performed By: #### C MP, TSH3, LDH, T4F ####[address] Sodium [Moles/volume] in Ser um or PlasmaOrdered By: Sly Benson on 03-05-2023 Sodium [Moles/Vol] 141 mmol/L Normal 136-[address] [facility] Comment on above: Order Comment: STAT BUN/CREAT FOR CT PER CHAGO IN CC DRAW 02/23/23 Performed By: #### C MP, TSH3, LDH, T4F ####[place] [id number] [place] [id number] [facility] Thyrotropin [Units/volume] i n Serum or PlasmaOrdered By: Sly Benson on 03-05-2023 TSH Qn 2.49 m[IU]/L Normal 0.45-5.33 [facility] Comment on above: Order Comment: STAT BUN/CREAT FOR CT PER CHAGO IN CC DRAW 02/23/23 Result Comment: PERF ORMED BY: [facility] [address] [place] [id number] PATHOLOGIST [employer] WAYLON SAUNDERS M.D. Performed By: #### C MP, TSH3, LDH, T4F ####[place] [id number] [facility] Thyroxine (T4) free [Mass/vo lume] in Serum or PlasmaOrdered By: Sly Benson on 03-05-2023 Free T4 [Mass/Vol] 0.94 ng/dL Normal 0.61-1.[address] [facility] Comment on above: Order Comment: STAT BUN/CREAT FOR CT PER CHAGO IN CC DRAW 02/23/23 Performed By: #### C MP, TSH3, LDH, T4F ####[place] [id number] [facility] Urea nitrogen [Mass/volume] in Serum or PlasmaOrdered By: Sly Benson on 03-05-2023 Urea nitrogen [Mass/Vol] 17 mg/dL Normal 7-25 [facility] Comment on above: Order Comment: STAT BUN/CREAT FOR CT PER CHAGO IN CC DRAW 02/23/23 Performed By: #### C MP, TSH3, LDH, T4F ####[place] [id number] [facility] Alanine aminotransferase [En zymatic activity/volume] in Serum or PlasmaOrdered By: Sly Benson on 12-30-2022 ALT [Catalytic activity/Vol] 24 U/L 7-52 [facility] Albumin [Mass/volume] in Ser um or Plasma by Bromocresol green (BCG) dye binding methoOrdered By: Sly Benson on 12-30-2022 Albumin BCG dye [Mass/Vol] 4.0 g/dL 3.5-5.7 [facility] Alkaline phosphatase [Enzyma tic activity/volume] in Serum or PlasmaOrdered By: Sly Benson on 12-30-2022 ALP [Catalytic activity/Vol] 108 U/L 34-104 [facility] Aspartate aminotransferase [ Enzymatic activity/volume] in Serum or PlasmaOrdered By: Syl Benson on 12-30-2022 AST [Catalytic activity/Vol] 22 U/L 13-39 [facility] Basophils Auto (Bld) [#/Vol] Ordered By: Sly Benson on 12-30-2022 Basophils (Bld) [#/Vol] 0.0 10*3/uL 0.0-0.2 [facility] Basophils/100 WBC Auto (Bld) Ordered By: Sly Benson on 12-30-2022 Basophils/100 WBC (Bld) 0.5 % . [facility] Bilirubin.total [Mass/volume ] in Serum or PlasmaOrdered By: Sly Benson on 12-30-2022 Bilirubin [Mass/Vol] 0.5 mg/dL 0.3-1.0 [facility] Calcium [Mass/volume] in Ser um or PlasmaOrdered By: Sly Benson on 12-30-2022 Calcium [Mass/Vol] 9.1 mg/dL 8.6-10.[address] [facility] Carbon dioxide, total [Moles /volume] in Serum or PlasmaOrdered By: Sly Benson on 12-30-2022 CO2 [Moles/Vol] 30.7 mmol/L 21.0-31.0 [facility] Chloride [Moles/volume] in S mellissa or PlasmaOrdered By: Sly Benson on 12-30-2022 Chloride [Moles/Vol] 104 mmol/L 98-107 [facility] Creatinine [Mass/volume] in Serum or PlasmaOrdered By: Sly Benson on 12-30-2022 Creatinine [Mass/Vol] 0.92 mg/dL 0.60-1.20 [facility] Eosinophils Auto (Bld) [#/Vo l]Ordered By: Sly Benson on 12-30-2022 Eosinophils (Bld) [#/Vol] 0.1 10*3/uL 0.0-0.45 [facility] Eosinophils/100 WBC Auto (Bl d)Ordered By: Sly Benson on 12-30-2022 Eosinophils/100 WBC (Bld) 1.5 % . [facility] Erythrocyte distribution wid th Auto (RBC) [Ratio]Ordered By: Sly Benson on 12-30-2022 Erythrocyte distribution width (RBC) [Ratio] 13.6 % 11.9-15.3 [facility] Globulin Calc (S) [Mass/Vol] Ordered By: Sly Benson on 12-30-2022 Globulin (S) [Mass/Vol] 2.5 g/dL [facility] Glucose [Mass/volume] in Ser um or PlasmaOrdered By: Sly Benson on 12-30-2022 Glucose [Mass/Vol] 102 mg/dL 70-[address] [facility] Comment on above: ADA recommended refe rence rangeRandom Glucose Reference Range is dependent on time and content of last meal. Glucose of more than 200 mg/dL in a nonstressed, ambulatory subject supports the diagnosis of Diabetes Mellitus. Hematocrit Auto (Bld) [Volum e fraction]Ordered By: Sly Benson on 12-30-2022 Hematocrit (Bld) [Volume fraction] 39.0 % 34.0-46.4 [facility] Hemoglobin [Mass/volume] in BloodOrdered By: Sly Benson on 12-30-2022 Hemoglobin (Bld) [Mass/Vol] 13.4 g/dL 11.8-15.4 [facility] Lactate dehydrogenase [Enzym atic activity/volume] in Serum or Plasma by Lactate to pyOrdered By: Sly Benson on 12-30-2022 LDH Lactate to pyruvate reaction [Catalytic activity/Vol] 211 U/L 140-271 [facility] Comment on above: Hemolysis is present at a level that could interfere with the result. Leukocytes [#/volume] correc margot for nucleated erythrocytes in Blood by Automated counOrdered By: Sly Benson on 12-30-2022 WBC corrected for nucl RBC Auto (Bld) [#/Vol] 6.8 10*3/uL 3.8-11.6 [facility] Lymphocytes Auto (Bld) [#/Vo l]Ordered By: Sly Benson on 12-30-2022 Lymphocytes (Bld) [#/Vol] 1.6 10*3/uL 1.00-4.8 [facility] Lymphocytes/100 WBC Auto (Bl d)Ordered By: Sly Benson on 12-30-2022 Lymphocytes/100 WBC (Bld) 24.0 % . [facility] MCH Auto (RBC) [Entitic mass ]Ordered By: Sly Benson on 12-30-2022 MCH (RBC) [Entitic mass] 30.0 pg 24.7-34.3 [facility] MCHC Auto (RBC) [Mass/Vol]Or dered By: Sly Benson on 12-30-2022 MCHC (RBC) [Mass/Vol] 34.3 g/dL 32.0-35.0 [facility] MCV Auto (RBC) [Entitic vol] Ordered By: Sly Benson on 12-30-2022 MCV (RBC) [Entitic vol] 87.4 fL 80-100 [facility] Monocytes Auto (Bld) [#/Vol] Ordered By: Sly Benson on 12-30-2022 Monocytes (Bld) [#/Vol] 0.6 10*3/uL 0.0-0.8 [facility] Monocytes/100 WBC Auto (Bld) Ordered By: Sly Benson on 12-30-2022 Monocytes/100 WBC (Bld) 9.0 % . [facility] Neutrophils Auto (Bld) [#/Vo l]Ordered By: Sly Benson on 12-30-2022 Neutrophils (Bld) [#/Vol] 4.4 10*3/uL 1.8-7.7 [facility] Neutrophils/100 WBC Auto (Bl d)Ordered By: Sly Benson on 12-30-2022 Neutrophils/100 WBC (Bld) 65.0 % . [facility] No Panel InformationOrdered By: Sly Benson on 12-30-2022 Adrenocorticotropic Hormone 28.9 pg/mL 7.2-63.3 [facility] Comment on above: ACTH reference inter jamel for samples collected between 7 and10 AM.Performed at: [id number] [id number] Director: Coleman Lacy PhD, Phone: [phone] Estimated GFR (CKD-EPI) > 60.0 mL/Min [facility] Creatinine Clearance (Chem 54.88 [facility] Nucleated erythrocytes [Pres ence] in Blood by Automated countOrdered By: Sly Benson on 12-30-2022 Nucleated RBC Auto Ql (Bld) 0.0 /100{WBC} 0-0.5 [facility] Platelet mean volume Auto (B ld) [Entitic vol]Ordered By: Sly Benson on 12-30-2022 Platelet mean volume (Bld) [Entitic vol] 7.4 fL 6.3-10.7 [facility] Platelets Auto (Bld) [#/Vol] Ordered By: Sly Benson on 12-30-2022 Platelets (Bld) [#/Vol] 171 10*3/uL 150-450 [facility] Potassium [Moles/volume] in Serum or PlasmaOrdered By: Sly Benson on 12-30-2022 Potassium [Moles/Vol] See comment 3.5-5.1 [facility] Comment on above: Specimen hemolyzed, redraw requested --- 12/30/22 1036 ---K previously reported as: 3.9 mmol/LHemolysis is present at a level that could interfere with the result. Protein [Mass/volume] in Ser um or PlasmaOrdered By: Sly Benson on 12-30-2022 Protein [Mass/Vol] 6.5 g/dL 6.4-8.[address] [facility] RBC Auto (Bld) [#/Vol]Ordere d By: Sly Benson on 12-30-2022 RBC (Bld) [#/Vol] 4.46 10*6/uL 3.60-5.00 [facility] Serum or plasma albumin/glob ulin mass ratioOrdered By: Sly Benson on 12-30-2022 Albumin/Globulin [Mass ratio] 1.6 {ratio} [facility] Serum or plasma anion gap de terminationOrdered By: Sly Benson on 12-30-2022 Anion gap [Moles/Vol] TNP [facility] Comment on above: Test not performed-- - 12/30/22 1038 ---Gap previously reported as: 10.2 mEq/L Sodium [Moles/volume] in Ser um or PlasmaOrdered By: Sly Benson on 12-30-2022 Sodium [Moles/Vol] 141 mmol/L 136-[address] [facility] Thyrotropin [Units/volume] i n Serum or PlasmaOrdered By: Sly Benson on 12-30-2022 TSH Qn 2.31 m[IU]/L 0.45-5.33 [facility] Thyroxine (T4) free [Mass/vo lume] in Serum or PlasmaOrdered By: Sly Benson on 12-30-2022 Free T4 [Mass/Vol] 1.03 ng/dL 0.61-1.[address] [facility] Urea nitrogen [Mass/volume] in Serum or PlasmaOrdered By: Sly Benson on 12-30-2022 Urea nitrogen [Mass/Vol] 17 mg/dL 7 [facility] WBC Auto (Bld) [#/Vol]Ordere d By: Sly Benson on 12-30-2022 WBC (Bld) [#/Vol] 6.8 10*3/uL 3.8-11.[address] [facility] Alanine aminotransferase [En zymatic activity/volume] in Serum or PlasmaOrdered By: Sly Benson on 10-31-2022 ALT [Catalytic activity/Vol] 22 U/L [facility] Albumin [Mass/volume] in Ser um or Plasma by Bromocresol green (BCG) dye binding methoOrdered By: Sly Benson on 10-31-2022 Albumin BCG dye [Mass/Vol] 4.0 g/dL 3.5-5.7 [facility] Alkaline phosphatase [Enzyma tic activity/volume] in Serum or PlasmaOrdered By: Sly Benson on 10-31-2022 ALP [Catalytic activity/Vol] 98 U/L 34-104 [facility] Aspartate aminotransferase [ Enzymatic activity/volume] in Serum or PlasmaOrdered By: Sly Benson on 10-31-2022 AST [Catalytic activity/Vol] 28 U/L 13-39 [facility] Basophils Auto (Bld) [#/Vol] Ordered By: Sly Benson on 10-31-2022 Basophils (Bld) [#/Vol] 0.1 10*3/uL 0.0-0.2 [facility] Basophils/100 WBC Auto (Bld) Ordered By: Sly Benson on 10-31-2022 Basophils/100 WBC (Bld) 0.9 % . [facility] Bilirubin.total [Mass/volume ] in Serum or PlasmaOrdered By: Sly Benson on 10-31-2022 Bilirubin [Mass/Vol] 0.7 mg/dL 0.3-1.0 [facility] Calcium [Mass/volume] in Ser um or PlasmaOrdered By: Sly Benson on 10-31-2022 Calcium [Mass/Vol] 8.9 mg/dL 8.6-10.[address] [facility] Carbon dioxide, total [Moles /volume] in Serum or PlasmaOrdered By: Sly Benosn on 10-31-2022 CO2 [Moles/Vol] 28.6 mmol/L 21.0-31.0 [facility] Chloride [Moles/volume] in S mellissa or PlasmaOrdered By: Sly Benson on 10-31-2022 Chloride [Moles/Vol] 104 mmol/L 98-107 [facility] Creatinine [Mass/volume] in Serum or PlasmaOrdered By: Sly Benson on 10-31-2022 Creatinine [Mass/Vol] 0.93 mg/dL 0.60-1.20 [facility] Eosinophils Auto (Bld) [#/Vo l]Ordered By: Sly Benson on 10-31-2022 Eosinophils (Bld) [#/Vol] 0.1 10*3/uL 0.0-0.45 [facility] Eosinophils/100 WBC Auto (Bl d)Ordered By: Sly Benson on 10-31-2022 Eosinophils/100 WBC (Bld) 1.8 % . [facility] Erythrocyte distribution wid th Auto (RBC) [Ratio]Ordered By: Sly Benson on 10-31-2022 Erythrocyte distribution width (RBC) [Ratio] 15.0 % 11.9-15.3 [facility] Globulin Calc (S) [Mass/Vol] Ordered By: Sly Benson on 10-31-2022 Globulin (S) [Mass/Vol] 2.9 g/dL [facility] Glucose [Mass/volume] in Ser um or PlasmaOrdered By: Sly Benson on 10-31-2022 Glucose [Mass/Vol] 100 mg/dL 70-[address] [facility] Comment on above: ADA recommended refe rence rangeRandom Glucose Reference Range is dependent on time and content of last meal. Glucose of more than 200 mg/dL in a nonstressed, ambulatory subject supports the diagnosis of Diabetes Mellitus. Hematocrit Auto (Bld) [Volum e fraction]Ordered By: Sly Benson on 10-31-2022 Hematocrit (Bld) [Volume fraction] 41.3 % 34.0-46.4 [facility] Hemoglobin [Mass/volume] in BloodOrdered By: Sly Benson on 10-31-2022 Hemoglobin (Bld) [Mass/Vol] 14.0 g/dL 11.8-15.4 [facility] Lactate dehydrogenase [Enzym atic activity/volume] in Serum or Plasma by Lactate to pyOrdered By: Sly Benson on 10-31-2022 LDH Lactate to pyruvate reaction [Catalytic activity/Vol] 226 U/L 140-271 [facility] Leukocytes [#/volume] correc margot for nucleated erythrocytes in Blood by Automated counOrdered By: Sly Benson on 10-31-2022 WBC corrected for nucl RBC Auto (Bld) [#/Vol] 6.8 10*3/uL 3.8-11.6 [facility] Lymphocytes Auto (Bld) [#/Vo l]Ordered By: Sly Benson on 10-31-2022 Lymphocytes (Bld) [#/Vol] 1.8 10*3/uL 1.00-4.8 [facility] Lymphocytes/100 WBC Auto (Bl d)Ordered By: Sly Benson on 10-31-2022 Lymphocytes/100 WBC (Bld) 26.5 % . [facility] MCH Auto (RBC) [Entitic mass ]Ordered By: Sly Benson on 10-31-2022 MCH (RBC) [Entitic mass] 29.7 pg 24.7-34.3 [facility] MCHC Auto (RBC) [Mass/Vol]Or dered By: Sly Benson on 10-31-2022 MCHC (RBC) [Mass/Vol] 33.8 g/dL 32.0-35.0 [facility] MCV Auto (RBC) [Entitic vol] Ordered By: Sly Benson on 10-31-2022 MCV (RBC) [Entitic vol] 87.8 fL 80-100 [facility] Monocytes Auto (Bld) [#/Vol] Ordered By: Sly Benson on 10-31-2022 Monocytes (Bld) [#/Vol] 0.8 10*3/uL 0.0-0.8 [facility] Monocytes/100 WBC Auto (Bld) Ordered By: Sly Benson on 10-31-2022 Monocytes/100 WBC (Bld) 11.2 % . [facility] Neutrophils Auto (Bld) [#/Vo l]Ordered By: Sly Benson on 10-31-2022 Neutrophils (Bld) [#/Vol] 4.0 10*3/uL 1.8-7.7 [facility] Neutrophils/100 WBC Auto (Bl d)Ordered By: Sly Benson on 10-31-2022 Neutrophils/100 WBC (Bld) 59.6 % . [facility] No Panel InformationOrdered By: Sly Benson on 10-31-2022 Adrenocorticotropic Hormone 35.2 pg/mL 7.2-63.3 [facility] Comment on above: ACTH reference inter jamel for samples collected between 7 and10 AM.Performed at: [place] [id number] [place], [place] [id number] Director: Coleman Lacy PhD, Phone: [phone] Estimated GFR (CKD-EPI) > 60.0 mL/Min [facility] Creatinine Clearance (Chem 54.88 [facility] Nucleated erythrocytes [Pres ence] in Blood by Automated countOrdered By: Sly Benson on 10-31-2022 Nucleated RBC Auto Ql (Bld) 0.0 /100{WBC} 0-0.5 [facility] Platelet mean volume Auto (B ld) [Entitic vol]Ordered By: Sly Benson on 10-31-2022 Platelet mean volume (Bld) [Entitic vol] 7.1 fL 6.3-10.7 [facility] Platelets Auto (Bld) [#/Vol] Ordered By: Sly Benson on 10-31-2022 Platelets (Bld) [#/Vol] 201 10*3/uL 150-450 [facility] Potassium [Moles/volume] in Serum or PlasmaOrdered By: Sly Benson on 10-31-2022 Potassium [Moles/Vol] 3.8 mmol/L 3.5-5.1 [facility] Protein [Mass/volume] in Ser um or PlasmaOrdered By: Sly Benson on 10-31-2022 Protein [Mass/Vol] 6.9 g/dL 6.4-8.[address] [facility] RBC Auto (Bld) [#/Vol]Ordere d By: Sly Benson on 10-31-2022 RBC (Bld) [#/Vol] 4.70 10*6/uL 3.60-5.00 [facility] Serum or plasma albumin/glob ulin mass ratioOrdered By: Sly Benson on 10-31-2022 Albumin/Globulin [Mass ratio] 1.4 {ratio} [facility] Serum or plasma anion gap de terminationOrdered By: Sly Benson on 10-31-2022 Anion gap [Moles/Vol] 12.2 mmol/L 6.0-15.0 [facility] Sodium [Moles/volume] in Ser um or PlasmaOrdered By: Sly Benson on 10-31-2022 Sodium [Moles/Vol] 141 mmol/L 136-[address] [facility] Thyrotropin [Units/volume] i n Serum or PlasmaOrdered By: Sly Benson on 10-31-2022 TSH Qn 2.49 m[IU]/L 0.45-5.33 [facility] Thyroxine (T4) free [Mass/vo lume] in Serum or PlasmaOrdered By: Sly Benson on 10-31-2022 Free T4 [Mass/Vol] 1.02 ng/dL 0.61-1.[address] [facility] Urea nitrogen [Mass/volume] in Serum or PlasmaOrdered By: Sly Benson on 10-31-2022 Urea nitrogen [Mass/Vol] 19 mg/dL 02-03 [facility] WBC Auto (Bld) [#/Vol]Ordere d By: Sly Benson on 10-31-2022 WBC (Bld) [#/Vol] 6.8 10*3/uL 3.8-11.[address] [facility] ACTH, PLASMAon 10-04-2022 ACTH, Plasma 48.7 pg/mL Normal 7.2-63.3 [facility] Comment on above: Result Comment: ACTH reference interval for samples collected between 7 and 10 AM. Performed By: #### A CTHP #### [facility] [address] [place] [address] Dr. Alesia Meyers CBC AUTO DIFFon 10-03-2022 BASO # 0.1 103/ul Normal 0.0-0.1 [facility] Comment on above: Performed By: #### T SH, CMP, LDH #### [facility] [address] [place] [address] [address] Alesia Meyers Basophils/100 WBC (Bld) 1.2 % Normal 0.2-2.0 [facility] Comment on above: Performed By: #### T SH, CMP, LDH #### [facility] [address] [place] [address] Dr. Alesia Meyers EO # 0.2 103/ul Normal 0.0-0.7 [facility] Comment on above: Performed By: #### T SH, CMP, LDH #### [facility] [address] [place] [address] Dr. Alesia Meyers Eosinophils/100 WBC (Bld) 2.5 % Normal 0.9-7.0 [facility] Comment on above: Performed By: #### T SH, CMP, LDH #### [facility] [address] [place] [address] Dr. Alesia Meyers Erythrocyte distribution width (RBC) [Ratio] 13.9 % Normal 11.0-15.0 [facility] Comment on above: Performed By: #### T SH, CMP, LDH #### [facility] [address] [place] [address] Dr. Alesia Meyers Hematocrit (Bld) [Volume fraction] 41.9 % Normal 36.0-48.0 [facility] Comment on above: Performed By: #### T SH, CMP, LDH #### [facility] [address] [place] [address] Dr. Alesia Meyers Hemoglobin (Bld) [Mass/Vol] 13.6 g/dL Normal 12.0-16.0 [facility] Comment on above: Performed By: #### T SH, CMP, LDH #### [facility] [address] [place] [address] Dr. Alesia Meyers IG # 0.04 10e3/ul Critically high 0.00-0.03 [facility] Comment on above: Performed By: #### T SH, CMP, LDH #### [facility] [address] [place] [address] Dr. Alesia Meyers IG % 0.7 % Critically high 0.0-0.5 [facility] Comment on above: Performed By: #### T SH, CMP, LDH #### [facility] [address] [place] [address] Dr. Alesia Meyers LYMPH # 2.1 103/ul Normal 1.2-3.8 [facility] Comment on above: Performed By: #### T SH, CMP, LDH #### [facility] [address] [place] [address] Dr. Alesia Meyers Lymphocytes/100 WBC (Bld) 35.5 % Normal 20.5-60.0 [facility] Comment on above: Performed By: #### T SH, CMP, LDH #### [facility] [address] [place] [address] Dr. Alesia Meyers MANUAL DIFF REQ NO Normal [facility] Comment on above: Performed By: #### T SH, CMP, LDH #### [facility] [address] [place] [address] Dr. Alesia Meyers MCH (RBC) [Entitic mass] 28.9 pg Normal 26.7-34.0 [facility] Comment on above: Performed By: #### T SH, CMP, LDH #### [facility] [address] [place] [address] Dr. Alesia Meyers MCHC (RBC) [Mass/Vol] 32.5 g/dL Normal 29.9-35.2 [facility] Comment on above: Performed By: #### T SH, CMP, LDH #### [facility] [address] [place] [address] Dr. Alesia Meyers MCV (RBC) [Entitic vol] 89.1 fL Normal 81.0-99.0 [facility] Comment on above: Performed By: #### T SH, CMP, LDH #### [facility] [address] [place] [address] Dr. Alesia Meyers MONO # 0.6 103/ul Normal 0.3-0.8 [facility] Comment on above: Performed By: #### T SH, CMP, LDH #### [facility] [address] [place] [address] Dr. Alesia Meyers Monocytes/100 WBC (Bld) 10.8 % Normal 1.7-12.0 [facility] Comment on above: Performed By: #### T SH, CMP, LDH #### [facility] [address] [place] [address] Dr. Alesia Meyers NEUT # 2.9 103/ul Normal 1.4-6.5 [facility] Comment on above: Performed By: #### T SH, CMP, LDH #### [facility] [address] [address] [address] Alesia Meyers Neutrophils/100 WBC (Bld) 49.3 % Normal 43.0-75.0 [facility] Comment on above: Performed By: #### T SH, CMP, LDH #### [facility] [address] [address] [address] Alesia Meyers Platelet mean volume (Bld) [Entitic vol] 8.8 fL Critically low 9.5-13.5 [facility] Comment on above: Performed By: #### T SH, CMP, LDH #### [facility] [address] [address] [address] Alesia Meyers PLT 226 103/ul Normal 150-450 [facility] Comment on above: Performed By: #### T SH, CMP, LDH #### [facility] [address] [place] [address] Dr. Alesia Meyers RBC 4.70 106/ul Normal 4.20-5.40 [facility] Comment on above: Performed By: #### T SH, CMP, LDH #### [facility] [address] [address] [address] Alesia Meyers WBC 5.9 103/ul Normal 4.0-11.0 [facility] Comment on above: Performed By: #### T SH, CMP, LDH #### [facility] [address] [address] [address] Alesia Meyers FREE T4on 10-03-2022 Free T4 [Mass/Vol] 1.02 ng/dL Normal 0.76-1.46 [facility] Comment on above: Performed By: #### F T4 #### [facility] [address] [place] [address] Dr. Alesia Meyers LDHon 10-03-2022 LDH 212 U/L Normal 81-234 [facility] Comment on above: Performed By: #### F T4 #### [facility] [address] [place] [address] Dr. Alesia Meyers PROF 14(COMP METB)on 023 Albumin [Mass/Vol] 3.5 g/dL Normal 3.4-5.0 [facility] Comment on above: Performed By: #### F T4 #### [facility] [address] [place] [address] Dr. Alesia Meyers Albumin/Globulin [Mass ratio] 1.1 {ratio} Normal [facility] Comment on above: Performed By: #### F T4 #### [facility] [address] [place] [address] Dr. Alesia Meyers ALP [Catalytic activity/Vol] 120 U/L Critically high 46-116 [facility] Comment on above: Performed By: #### F T4 #### [facility] [address] [place] [address] Dr. Alesia Meyers ALT [Catalytic activity/Vol] 37 U/L Normal 14-59 [facility] Comment on above: Performed By: #### F T4 #### [facility] [address] [place] [address] Dr. Alesia Meyers Anion gap [Moles/Vol] 11.4 mmol/L Normal [facility] Comment on above: Performed By: #### F T4 #### [facility] [address] [place] [address] Dr. Alesia Meyers AST [Catalytic activity/Vol] 28 U/L Normal 15-37 [facility] Comment on above: Performed By: #### F T4 #### [facility] [address] [place] [address] Dr. Alesia Meyers Bilirubin [Mass/Vol] 0.4 mg/dL Normal 0.2-1.0 [facility] Comment on above: Performed By: #### F T4 #### [facility] [address] [place] [address] Dr. Alesia Meyers Calcium [Mass/Vol] 9.2 mg/dL Normal 8.5-10.1 [facility] Comment on above: Performed By: #### F T4 #### [facility] [address] [place] [address] Dr. Alesia Meyers Chloride [Moles/Vol] 105 mmol/L Normal 98-107 [facility] Comment on above: Performed By: #### F T4 #### [facility] [address] [address] [address] Alesia Meyers CO2 [Moles/Vol] 30.4 mmol/L Normal 21.0-32.0 [facility] Comment on above: Performed By: #### F T4 #### [facility] [address] [address] [address] Alesia Meyers Creatinine [Mass/Vol] 0.88 mg/dL Normal 0.55-1.02 [facility] Comment on above: Performed By: #### F T4 #### [facility] [address] [address] [address] Alesia Meyers EGFR-AF ALGERIAN >60 Normal >=60 [facility] Comment on above: Performed By: #### F T4 #### [facility] [address] [place] [address] Dr. Alesia Meyers EGFR-NON AF ALGERIAN >60 Normal >=60 [facility] Comment on above: Performed By: #### F T4 #### [facility] [address] [place] [address] Dr. Alesia Meyers Globulin (S) [Mass/Vol] 3.3 g/dL Normal [facility] Comment on above: Performed By: #### F T4 #### [facility] [address] [place] [address] Dr. Alesia Meyers Glucose [Mass/Vol] 104 mg/dL Normal 74-[address] [facility] Comment on above: Performed By: #### F T4 #### [facility] [address] [place] [address] Dr. Alesia Meyers Potassium [Moles/Vol] 3.8 mmol/L Normal 3.5-5.1 [facility] Comment on above: Performed By: #### F T4 #### [facility] [address] [place] [address] Dr. Alesia Meyers Protein [Mass/Vol] 6.8 g/dL Normal 6.4-8.[address] [facility] Comment on above: Performed By: #### F T4 #### [facility] [address] [place] [address] Dr. Alesia Meyers Sodium [Moles/Vol] 143 mmol/L Normal 136-145 [facility] Comment on above: Performed By: #### F T4 #### [facility] [address] [place] [address] Dr. Alesia Meyers Urea nitrogen [Mass/Vol] 19.0 mg/dL Critically high 7.0-18.0 [facility] Comment on above: Performed By: #### F T4 #### [facility] [address] [place] [address] Dr. Alesia Meyers Urea nitrogen/Creatinine [Mass ratio] 21.6 mg/mg Normal [facility] Comment on above: Performed By: #### F T4 #### [facility] [address] [place] [address] Dr. Alesia Meyers TSHon 10-03-2022 TSH 3.819 uIU/mL Critically high 0.358-3.74 0 [facility] Comment on above: Performed By: #### F T4 #### [facility] [address] [place] [address] Dr. Alesia Meyers ACTH, PLASMAon 09-06-2022 ACTH, Plasma 6.3 pg/mL Critically low 7.2-63.3 [facility] Comment on above: Result Comment: ACTH reference interval for samples collected between 7 and 10 AM. Performed By: #### T SH, CMP, LDH #### [facility] [address] [place] [address] Dr. Alesia Meyers CBC AUTO DIFFon 09-05-2022 BASO # 0.0 103/ul Normal 0.0-0.1 [facility] Comment on above: Performed By: #### T SH, CMP, LDH #### [facility] [address] [place] [address] Dr. Alesia Meyers Basophils/100 WBC (Bld) 0.3 % Normal 0.2-2.0 [facility] Comment on above: Performed By: #### T SH, CMP, LDH #### [facility] [address] [place] [address] Dr. Alesia Meyers EO # 0.1 103/ul Normal 0.0-0.7 [facility] Comment on above: Performed By: #### T SH, CMP, LDH #### [facility] [address] [place] [address] Dr. Alesia Meyers Eosinophils/100 WBC (Bld) 0.6 % Critically low 0.9-7.0 [facility] Comment on above: Performed By: #### T SH, CMP, LDH #### [facility] [address] [place] [address] Dr. Alesia Meyers Erythrocyte distribution width (RBC) [Ratio] 14.4 % Normal 11.0-15.0 [facility] Comment on above: Performed By: #### T SH, CMP, LDH #### [facility] [address] [place] [address] Dr. Alesia Meyers Hematocrit (Bld) [Volume fraction] 41.6 % Normal 36.0-48.0 [facility] Comment on above: Performed By: #### T SH, CMP, LDH #### [facility] [address] [place] [address] Dr. Alesia Meyers Hemoglobin (Bld) [Mass/Vol] 13.7 g/dL Normal 12.0-16.0 [facility] Comment on above: Performed By: #### T SH, CMP, LDH #### [facility] [address] [place] [address] Dr. Alesia Meyers IG # 0.14 10e3/ul Critically high 0.00-0.03 [facility] Comment on above: Performed By: #### T SH, CMP, LDH #### [facility] [address] [place] [address] Dr. Alesia Meyers IG % 1.6 % Critically high 0.0-0.5 [facility] Comment on above: Performed By: #### T SH, CMP, LDH #### [facility] [address] [place] [address] Dr. Alesia Meyers LYMPH # 2.7 103/ul Normal 1.2-3.8 [facility] Comment on above: Performed By: #### T SH, CMP, LDH #### [facility] [address] [address] [address] Alesia Meyers Lymphocytes/100 WBC (Bld) 30.2 % Normal 20.5-60.0 [facility] Comment on above: Performed By: #### T SH, CMP, LDH #### [facility] [address] [address] [address] Alesia Meyers MANUAL DIFF REQ NO Normal [facility] Comment on above: Performed By: #### T SH, CMP, LDH #### [facility] [address] [place] [address] Dr. Alesia Meyers MCH (RBC) [Entitic mass] 28.7 pg Normal 26.7-34.0 [facility] Comment on above: Performed By: #### T SH, CMP, LDH #### [facility] [address] [place] [address] Dr. Alesia Meyers MCHC (RBC) [Mass/Vol] 32.9 g/dL Normal 29.9-35.2 [facility] Comment on above: Performed By: #### T SH, CMP, LDH #### [facility] [address] [place] [address] Dr. Alesia Meyers MCV (RBC) [Entitic vol] 87.2 fL Normal 81.0-99.0 [facility] Comment on above: Performed By: #### T SH, CMP, LDH #### [facility] [address] [place] [address] Dr. Alesia Meyers MONO # 1.0 103/ul Critically high 0.3-0.8 [facility] Comment on above: Performed By: #### T SH, CMP, LDH #### [facility] [address] [place] [address] Dr. Alesia Meyers Monocytes/100 WBC (Bld) 10.8 % Normal 1.7-12.0 [facility] Comment on above: Performed By: #### T SH, CMP, LDH #### [facility] [address] [place] [address] Dr. Alesia Meyers NEUT # 5.0 103/ul Normal 1.4-6.5 [facility] Comment on above: Performed By: #### T SH, CMP, LDH #### [facility] [address] [place] [address] Dr. Alesia Meyers Neutrophils/100 WBC (Bld) 56.5 % Normal 43.0-75.0 [facility] Comment on above: Performed By: #### T SH, CMP, LDH #### [facility] [address] [place] [address] Dr. Alesia Meyers Platelet mean volume (Bld) [Entitic vol] 9.1 fL Critically low 9.5-13.5 [facility] Comment on above: Performed By: #### T SH, CMP, LDH #### [facility] [address] [place] [address] Dr. Alesia Meyers PLT 217 103/ul Normal 150-450 [facility] Comment on above: Performed By: #### T SH, CMP, LDH #### [facility] [address] [place] [address] Dr. Alesia Meyers RBC 4.77 106/ul Normal 4.20-5.40 [facility] Comment on above: Performed By: #### T SH, CMP, LDH #### [facility] [address] [place] [address] Dr. Alesia Meyers WBC 8.8 103/ul Normal 4.0-11.0 [facility] Comment on above: Performed By: #### T SH, CMP, LDH #### [facility] [address] [place] [address] Dr. Alesia Meyers FREE T4on 09-05-2022 Free T4 [Mass/Vol] 1.22 ng/dL Normal 0.76-1.46 [facility] Comment on above: Performed By: #### F T4 #### [facility] [address] [place] [address] Dr. Alesia Meyers LDHon 09-05-2022 LDH 212 U/L Normal 81-234 [facility] Comment on above: Performed By: #### T SH, CMP, LDH #### [facility] [address] [place] [address] Dr. Alesia Meyers PROF 14(COMP METB)on 023 Albumin [Mass/Vol] 3.4 g/dL Normal 3.4-5.0 [facility] Comment on above: Performed By: #### T SH, CMP, LDH #### [facility] [address] [address] [address] Alesia Meyers Albumin/Globulin [Mass ratio] 1.1 {ratio} Normal [facility] Comment on above: Performed By: #### T SH, CMP, LDH #### [facility] [address] [address] [address] Alesia Meyers ALP [Catalytic activity/Vol] 101 U/L Normal 46-116 [facility] Comment on above: Performed By: #### T SH, CMP, LDH #### [facility] [address] [address] [address] Alesia Meyers ALT [Catalytic activity/Vol] 40 U/L Normal 14-59 [facility] Comment on above: Performed By: #### T SH, CMP, LDH #### [facility] [address] [address] [address] Alesia Meyers Anion gap [Moles/Vol] 10.7 mmol/L Normal [facility] Comment on above: Performed By: #### T SH, CMP, LDH #### [facility] [address] [address] [address] Alesia Meyers AST [Catalytic activity/Vol] 25 U/L Normal 15-37 [facility] Comment on above: Performed By: #### T SH, CMP, LDH #### [facility] [address] [address] [address] Alesia Meyers Bilirubin [Mass/Vol] 0.4 mg/dL Normal 0.2-1.0 [facility] Comment on above: Performed By: #### T SH, CMP, LDH #### [facility] [address] [address] [address] Alesia Meyers Calcium [Mass/Vol] 8.7 mg/dL Normal 8.5-10.1 [facility] Comment on above: Performed By: #### T SH, CMP, LDH #### [facility] [address] [address] [address] Alesia Meyers Chloride [Moles/Vol] 105 mmol/L Normal 98-107 [facility] Comment on above: Performed By: #### T SH, CMP, LDH #### [facility] [address] [address] [address] Alesia Meyers CO2 [Moles/Vol] 30.0 mmol/L Normal 21.0-32.0 [facility] Comment on above: Performed By: #### T SH, CMP, LDH #### [facility] [address] [address] [address] Alesia Meyers Creatinine [Mass/Vol] 0.83 mg/dL Normal 0.55-1.02 [facility] Comment on above: Performed By: #### T SH, CMP, LDH #### [facility] [address] [place] [address] Dr. Alesia Meyers EGFR-AF ALGERIAN >60 Normal >=60 [facility] Comment on above: Performed By: #### T SH, CMP, LDH #### [facility] [address] [place] [address] Dr. Alesia Meyers EGFR-NON AF ALGERIAN >60 Normal >=60 [facility] Comment on above: Performed By: #### T SH, CMP, LDH #### [facility] [address] [place] [address] Dr. Alesia Meyers Globulin (S) [Mass/Vol] 3.2 g/dL Normal [facility] Comment on above: Performed By: #### T SH, CMP, LDH #### [facility] [address] [address] [address] Alesia Meyers Glucose [Mass/Vol] 96 mg/dL Normal 74-106 [facility] Comment on above: Performed By: #### T SH, CMP, LDH #### [facility] [address] [address] [address] Alesia Meyers Potassium [Moles/Vol] 3.7 mmol/L Normal 3.5-5.1 [facility] Comment on above: Performed By: #### T SH, CMP, LDH #### [facility] [address] [address] [address] Alesia Meyers Protein [Mass/Vol] 6.6 g/dL Normal 6.4-8.2 [facility] Comment on above: Performed By: #### T SH, CMP, LDH #### [facility] [address] [address] [address] Alesia Meyers Sodium [Moles/Vol] 142 mmol/L Normal 136-145 [facility] Comment on above: Performed By: #### T SH, CMP, LDH #### [facility] [address] [address] [address] Alesia Meyers Urea nitrogen [Mass/Vol] 29.0 mg/dL Critically high 7.0-18.0 [facility] Comment on above: Performed By: #### T SH, CMP, LDH #### [facility] [address] [address] [address] Alesia Meyers Urea nitrogen/Creatinine [Mass ratio] 34.9 mg/mg Normal [facility] Comment on above: Performed By: #### T SH, CMP, LDH #### [facility] [address] [place] [address] Dr. Alesia Meyers TSHon 09-05-2022 TSH 3.372 uIU/mL Normal 0.358-3.74 0 [facility] Comment on above: Performed By: #### T SH, CMP, LDH #### [facility] [address] [place] [address] Dr. Alesia Meyres Albumin [Mass/volume] in Ser um or PlasmaOrdered By: Sly Benson on 08-08-2022 Albumin [Mass/Vol] 4.0 g/dL 3.2-5.[address] [facility] Basophils Auto (Bld) [#/Vol] Ordered By: Sly Benson on 08-08-2022 Basophils (Bld) [#/Vol] 0.1 10*3/uL 0.0-0.2 [facility] Basophils/100 WBC Auto (Bld) Ordered By: Sly Benson on 08-08-2022 Basophils/100 WBC (Bld) 0.7 % . [facility] Creatinine and Glomerular fi ltration rate.predicted panel (S/P/Bld)Ordered By: Sly Benson on 08-08-2022 Creatinine [Mass/Vol] 0.93 mg/dL 0.44-1.03 [facility] Direct bilirubin measurement Ordered By: Sly Benson on 08-08-2022 Bilirubin.direct [Mass/Vol] mg/dL 0.0-0.4 [facility] Eosinophils Auto (Bld) [#/Vo l]Ordered By: Sly Benson on 08-08-2022 Eosinophils (Bld) [#/Vol] 0.2 10*3/uL 0.0-0.45 [facility] Eosinophils/100 WBC Auto (Bl d)Ordered By: Sly Benson on 08-08-2022 Eosinophils/100 WBC (Bld) 2.1 % . [facility] Erythrocyte distribution wid th Auto (RBC) [Ratio]Ordered By: Sly Benson on 08-08-2022 Erythrocyte distribution width (RBC) [Ratio] 14.7 % 11.9-15.3 [facility] Estimated glomerular filtrat ion rate (GFR) non- AmericanOrdered By: Sly Benson on 08-08-2022 GFR/1.73 sq M.predicted among non-blacks MDRD (S/P/Bld) [Vol rate/Area] 59 mL/Min [facility] Globulin Calc (S) [Mass/Vol] Ordered By: Sly Benson on 08-08-2022 Globulin (S) [Mass/Vol] 3.1 g/dL [facility] Hematocrit Auto (Bld) [Volum e fraction]Ordered By: Sly Benson on 08-08-2022 Hematocrit (Bld) [Volume fraction] 42.9 % 34.0-46.4 [facility] Hemoglobin [Mass/volume] in BloodOrdered By: Sly Benson on 08-08-2022 Hemoglobin (Bld) [Mass/Vol] 14.4 g/dL 11.8-15.4 [facility] - Chemistry and C hemistry - challengeOrdered By: Sly Benson on 08-08-2022 Lipase [Catalytic activity/Vol] 33.0 U/L 22-51 [facility] Lactate dehydrogenase measur ement (enzymatic activity/volume)Ordered By: Sly Benson on 08-08-2022 LDH (Unsp spec) [Catalytic activity/Vol] 209 U/L 45-190 [facility] Leukocytes [#/volume] correc margot for nucleated erythrocytes in Blood by Automated counOrdered By: Sly Benson on 08-08-2022 WBC corrected for nucl RBC Auto (Bld) [#/Vol] 7.6 10*3/uL 3.8-11.6 [facility] Lymphocytes Auto (Bld) [#/Vo l]Ordered By: Sly Benson on 08-08-2022 Lymphocytes (Bld) [#/Vol] 2.2 10*3/uL 1.00-4.8 [facility] Lymphocytes/100 WBC Auto (Bl d)Ordered By: Sly Benson on 08-08-2022 Lymphocytes/100 WBC (Bld) 29.6 % . [facility] MCH Auto (RBC) [Entitic mass ]Ordered By: Sly Benson on 08-08-2022 MCH (RBC) [Entitic mass] 29.0 pg 24.7-34.3 [facility] MCHC Auto (RBC) [Mass/Vol]Or dered By: Sly Benson on 08-08-2022 MCHC (RBC) [Mass/Vol] 33.6 g/dL 32.0-35.0 [facility] MCV Auto (RBC) [Entitic vol] Ordered By: Sly Benson on 08-08-2022 MCV (RBC) [Entitic vol] 86.1 fL 80-100 [facility] Monocytes Auto (Bld) [#/Vol] Ordered By: Sly Benson on 08-08-2022 Monocytes (Bld) [#/Vol] 0.7 10*3/uL 0.0-0.8 [facility] Monocytes/100 WBC Auto (Bld) Ordered By: Sly Benson on 08-08-2022 Monocytes/100 WBC (Bld) 9.0 % . [facility] Neutrophils Auto (Bld) [#/Vo l]Ordered By: Sly Benson on 08-08-2022 Neutrophils (Bld) [#/Vol] 4.4 10*3/uL 1.8-7.7 [facility] Neutrophils/100 WBC Auto (Bl d)Ordered By: Sly Benson on 08-08-2022 Neutrophils/100 WBC (Bld) 58.6 % . [facility] No Panel InformationOrdered By: Sly Benson on 08-08-2022 Adrenocorticotropic Hormone 35.2 pg/mL 7.2-63.3 [facility] Comment on above: ACTH reference inter jamel for samples collected between 7 and10 AM.Performed at: [facility] [address] [id number] Director: Coleman Lacy PhD, Phone: [phone] Estimated GFR () > 60 mL/Min [facility] Comment on above: GFR estimated refere nce range: According to KDOQI guidelines, <60 ml/min/1.73m2 is sufficient to diagnose a patient with chronic kidney disease. Pharmacy Creatinine Clearance (Chem 55.32 [facility] Nucleated erythrocytes [Pres ence] in Blood by Automated countOrdered By: Sly Benson on 08-08-2022 Nucleated RBC Auto Ql (Bld) 0.1 /100{WBC} 0-0.5 [facility] Platelet mean volume Auto (B ld) [Entitic vol]Ordered By: Sly Benson on 08-08-2022 Platelet mean volume (Bld) [Entitic vol] 7.5 fL 6.3-10.7 [facility] Platelets Auto (Bld) [#/Vol] Ordered By: Sly Benson on 08-08-2022 Platelets (Bld) [#/Vol] 216 10*3/uL 150-450 [facility] Protein [Mass/volume] in Ser um or PlasmaOrdered By: Sly Benson on 08-08-2022 Protein [Mass/Vol] 7.1 g/dL 6.1-7.[address] [facility] RBC Auto (Bld) [#/Vol]Ordere d By: Sly Benson on 08-08-2022 RBC (Bld) [#/Vol] 4.98 10*6/uL 3.60-5.00 [facility] Random cortisol measurementO rdered By: Sly Benson on 08-08-2022 Cortisol [Mass/Vol] 11.8 ug/dL [facility] Comment on above: Reference range: AM 6 - 24 ug/dl PM <10 ug/dl Serum or plasma alanine castro otransferase measurement without P-5'-P (enzymatic activiOrdered By: Sly Benson on 08-08-2022 ALT No additional P-5'-P [Catalytic activity/Vol] 32 U/L 10-60 [facility] Serum or plasma albumin/glob ulin mass ratioOrdered By: Sly Benson on 08-08-2022 Albumin/Globulin [Mass ratio] 1.3 {ratio} [facility] Serum or plasma alkaline halle sphatase measurement (enzymatic activity/volume)Ordered By: Sly Benson on 08-08-2022 ALP [Catalytic activity/Vol] 99 U/L 32-92 [facility] Serum or plasma anion gap de terminationOrdered By: Sly Benson on 08-08-2022 Anion gap [Moles/Vol] 11.2 mmol/L 6.0-15.0 [facility] Serum or plasma aspartate am inotransferase measurement (enzymatic activity/volume)Ordered By: Sly Benson on 08-08-2022 AST [Catalytic activity/Vol] 34 U/L 10-42 [facility] Serum or plasma calcium diamond urement (mass/volume)Ordered By: Sly Benson on 08-08-2022 Calcium [Mass/Vol] 9.3 mg/dL 8.2-10.[address] [facility] Serum or plasma chloride zora surement (moles/volume)Ordered By: Sly Benson on 08-08-2022 Chloride [Moles/Vol] 102 mmol/L 95-114 [facility] Serum or plasma glucose diamond urement (mass/volume)Ordered By: Sly Benson on 08-08-2022 Glucose [Mass/Vol] 101 mg/dL 70-[address] [facility] Comment on above: ADA recommended refe rence rangeRandom Glucose Reference Range is dependent on time and content of last meal. Glucose of more than 200 mg/dL in a nonstressed, ambulatory subject supports the diagnosis of Diabetes Mellitus. Serum or plasma non-glucuron idated bilirubin measurement (mass/volume)Ordered By: Sly Benson on 08-08-2022 Bilirubin.indirect [Mass/Vol] TNP [facility] Comment on above: Test not performed Serum or plasma potassium me asurement (moles/volume)Ordered By: Sly Benson on 08-08-2022 Potassium [Moles/Vol] 3.3 mmol/L 3.5-5.1 [facility] Serum or plasma sodium measu rement (moles/volume)Ordered By: Sly Benson on 08-08-2022 Sodium [Moles/Vol] 139 mmol/L 136-[address] [facility] Serum or plasma total biliru bin measurement (mass/volume)Ordered By: Sly Benson on 08-08-2022 Bilirubin [Mass/Vol] 0.7 mg/dL 0.3-1.2 [facility] Serum or plasma total carbon dioxide measurement (moles/volume)Ordered By: Sly Benson on 08-08-2022 CO2 [Moles/Vol] 29.1 mmol/L 22.0-30.0 [facility] Serum or plasma urea nitroge n measurement (mass/volume)Ordered By: Sly Benson on 08-08-2022 Urea nitrogen [Mass/Vol] 18 mg/dL 9- [facility] TSH DL <= 0.005 mIU/L QnOrde red By: Sly Benson on 08-08-2022 TSH Qn 2.80 m[IU]/L 0.45-5.33 [facility] Thyroxine (T4) free [Mass/vo lume] in Serum or PlasmaOrdered By: Sly Benson on 08-08-2022 Free T4 [Mass/Vol] 0.99 ng/dL 0.61-1.[address] [facility] WBC Auto (Bld) [#/Vol]Ordere d By: Sly Benson on 08-08-2022 WBC (Bld) [#/Vol] 7.6 10*3/uL 3.8-11.[address] [facility] ACTH, PLASMAon 07-22-2022 ACTH, Plasma 29.5 pg/mL Normal 7.2-63.3 [facility] Comment on above: Result Comment: ACTH reference interval for samples collected between 7 and 10 AM. Performed By: #### A CTHP #### [facility] [address] [address] [address] Alesia Meyers CORTISOLon 07-22-2022 Cortisol 10.0 ug/dL Normal [facility] Comment on above: Result Comment: Melvin isol AM 6.2 - 19.4 Cortisol PM 2.3 - 11.9 Performed By: #### T SH, CMP, LDH #### [facility] [address] [address] [address] Alesia Meyers CBC AUTO DIFFon 07-21-2022 BASO # 0.0 103/ul Normal 0.0-0.1 [facility] Comment on above: Performed By: #### T SH, CMP, LDH #### [facility] [address] [address] [address] Alesia Meyers Basophils/100 WBC (Bld) 0.6 % Normal 0.2-2.0 [facility] Comment on above: Performed By: #### T SH, CMP, LDH #### [facility] [address] [address] [address] Alesia Meyers EO # 0.1 103/ul Normal 0.0-0.7 [facility] Comment on above: Performed By: #### T SH, CMP, LDH #### [facility] [address] [address] [address] Alesia Meyers Eosinophils/100 WBC (Bld) 1.8 % Normal 0.9-7.0 [facility] Comment on above: Performed By: #### T SH, CMP, LDH #### [facility] [facility] [address] [address] [address] Alesia Meyers Erythrocyte distribution width (RBC) [Ratio] 13.2 % Normal 11.0-15.0 [facility] Comment on above: Performed By: #### T SH, CMP, LDH #### [facility] [address] [place] [address] Dr. Alesia Meyers Hematocrit (Bld) [Volume fraction] 40.4 % Normal 36.0-48.0 [facility] Comment on above: Performed By: #### T SH, CMP, LDH #### [facility] [address] [place] [address] Dr. Alesia Meyers Hemoglobin (Bld) [Mass/Vol] 14.1 g/dL Normal 12.0-16.0 [facility] Comment on above: Performed By: #### T SH, CMP, LDH #### [facility] [address] [place] [address] Dr. Alesia Meyers IG # 0.03 10e3/ul Normal 0.00-0.03 [facility] Comment on above: Performed By: #### T SH, CMP, LDH #### [facility] [address] [place] [address] Dr. Alesia eMyers IG % 0.4 % Normal 0.0-0.5 [facility] Comment on above: Performed By: #### T SH, CMP, LDH #### [facility] [address] [place] [address] Dr. Alesia Meyers LYMPH # 1.9 103/ul Normal 1.2-3.8 [facility] Comment on above: Performed By: #### T SH, CMP, LDH #### [facility] [address] [place] [address] Dr. Alesia Meyers Lymphocytes/100 WBC (Bld) 27.5 % Normal 20.5-60.0 [facility] Comment on above: Performed By: #### T SH, CMP, LDH #### [facility] [address] [place] [address] Dr. Alesia Meyers MANUAL DIFF REQ NO Normal [facility] Comment on above: Performed By: #### T SH, CMP, LDH #### [facility] [address] [place] [address] Dr. Alesia Meyers MCH (RBC) [Entitic mass] 28.4 pg Normal 26.7-34.0 [facility] Comment on above: Performed By: #### T SH, CMP, LDH #### [facility] [address] [place] [address] Dr. Alesia Meyers MCHC (RBC) [Mass/Vol] 34.9 g/dL Normal 29.9-35.2 [facility] Comment on above: Performed By: #### T SH, CMP, LDH #### [facility] [address] [place] [address] Dr. Alesia Meyers MCV (RBC) [Entitic vol] 81.5 fL Normal 81.0-99.0 [facility] Comment on above: Performed By: #### T SH, CMP, LDH #### [facility] [address] [place] [address] Dr. Alesia Meyers MONO # 0.3 103/ul Normal 0.3-0.8 [facility] Comment on above: Performed By: #### T SH, CMP, LDH #### [facility] [address] [place] [address] Dr. Alesia Meyers Monocytes/100 WBC (Bld) 4.9 % Normal 1.7-12.0 [facility] Comment on above: Performed By: #### T SH, CMP, LDH #### [facility] [address] [place] [address] Dr. Alesia Meyers NEUT # 4.4 103/ul Normal 1.4-6.5 [facility] Comment on above: Performed By: #### T SH, CMP, LDH #### [facility] [address] [place] [address] Dr. Alesia Meyers Neutrophils/100 WBC (Bld) 64.8 % Normal 43.0-75.0 [facility] Comment on above: Performed By: #### T SH, CMP, LDH #### [facility] [address] [place] [address] Dr. Alesia Meyers Platelet mean volume (Bld) [Entitic vol] 8.8 fL Critically low 9.5-13.5 [facility] Comment on above: Performed By: #### T SH, CMP, LDH #### [facility] [address] [place] [address] Dr. Alesia Meyers PLT 214 103/ul Normal 150-450 [facility] Comment on above: Performed By: #### T SH, CMP, LDH #### [facility] [address] [place] [address] Dr. Alesia Meyers RBC 4.96 106/ul Normal 4.20-5.40 [facility] Comment on above: Performed By: #### T SH, CMP, LDH #### [facility] [address] [place] [address] Dr. Alesia Meyers WBC 6.8 103/ul Normal 4.0-11.0 [facility] Comment on above: Performed By: #### T SH, CMP, LDH #### [facility] [address] [place] [address] Dr. Alesia Meyers FREE T4on 07-21-2022 Free T4 [Mass/Vol] 1.06 ng/dL Normal 0.76-1.[address] [facility] Comment on above: Performed By: #### T SH, CMP, LDH #### [facility] [address] [place] [address] Dr. Alesia Meyers LDHon 07-21-2022 LDH 243 U/L Critically high 81-234 [facility] Comment on above: Performed By: #### T SH, CMP, LDH #### [facility] [address] [place] [address] Dr. Alesia Meyers LIPASEon 07-21-2022 Lipase [Catalytic activity/Vol] 73.0 U/L Normal 73.0-393.0 [facility] Comment on above: Performed By: #### T SH, CMP, LDH #### [facility] [address] [place] [address] Dr. Alesia Meyers LIVER PROFILEon 07-21-2022 Albumin [Mass/Vol] 3.5 g/dL Normal 3.4-5.0 [facility] Comment on above: Performed By: #### T SH, CMP, LDH #### [facility] [address] [place] [address] Dr. Alesia Meyers Albumin/Globulin [Mass ratio] 0.9 {ratio} Normal [facility] Comment on above: Performed By: #### T SH, CMP, LDH #### [facility] [address] [address] [address] Alesia Meyers ALP [Catalytic activity/Vol] 130 U/L Critically high 46-116 [facility] Comment on above: Performed By: #### T SH, CMP, LDH #### [facility] [address] [place] [address] Dr. Alesia Meyers ALT [Catalytic activity/Vol] 35 U/L Normal 14-59 [facility] Comment on above: Performed By: #### T SH, CMP, LDH #### [facility] [address] [place] [address] Dr. Alesia Meyers AST [Catalytic activity/Vol] 37 U/L Normal 15-37 [facility] Comment on above: Performed By: #### T SH, CMP, LDH #### [facility] [address] [place] [address] Dr. Alesia Meyers BILI, CONJUGATED 0.1 mg/dL Normal 0.0-0.2 [facility] Comment on above: Performed By: #### T SH, CMP, LDH #### [facility] [address] [place] [address] Dr. Alesia Meyers Bilirubin [Mass/Vol] 0.4 mg/dL Normal 0.2-1.0 [facility] Comment on above: Performed By: #### T SH, CMP, LDH #### [facility] [address] [place] [address] Dr. Alseia Meyers Globulin (S) [Mass/Vol] 3.8 g/dL Normal [facility] Comment on above: Performed By: #### T SH, CMP, LDH #### [facility] [address] [place] [address] Dr. Alesia Meyers Protein [Mass/Vol] 7.3 g/dL Normal 6.4-8.[address] [facility] Comment on above: Performed By: #### T SH, CMP, LDH #### [facility] [address] [address] [address] Alesia Meyers PROF CHEM 8 (BAS METB)on Anion gap [Moles/Vol] 12.1 mmol/L Normal [facility] Comment on above: Performed By: #### T SH, CMP, LDH #### [facility] [address] [place] [address] Dr. Alesia Meyers Calcium [Mass/Vol] 9.2 mg/dL Normal 8.5-10.1 [facility] Comment on above: Performed By: #### T SH, CMP, LDH #### [facility] [address] [address] [address] Alesia Meyers Chloride [Moles/Vol] 102 mmol/L Normal 98-107 [facility] Comment on above: Performed By: #### T SH, CMP, LDH #### [facility] [address] [place] [address] Dr. Alesia Meyers CO2 [Moles/Vol] 30.5 mmol/L Normal 21.0-32.0 [facility] Comment on above: Performed By: #### T SH, CMP, LDH #### [facility] [address] [place] [address] Dr. Alesia Meyers Creatinine [Mass/Vol] 0.87 mg/dL Normal 0.55-1.02 [facility] Comment on above: Performed By: #### T SH, CMP, LDH #### [facility] [address] [place] [address] Dr. Alesia Meyers EGFR-AF ALGERIAN >60 Normal >=60 [facility] Comment on above: Performed By: #### T SH, CMP, LDH #### [facility] [address] [place] [address] Dr. Alesia Meyesr EGFR-NON AF ALGERIAN >60 Normal >=60 [facility] Comment on above: Performed By: #### T SH, CMP, LDH #### [facility] [address] [place] [address] Dr. Alesia Meyers Glucose [Mass/Vol] 178 mg/dL Critically high 74-106 [facility] Comment on above: Performed By: #### T SH, CMP, LDH #### [facility] [address] [address] [address] Alesia Meyers Potassium [Moles/Vol] 3.6 mmol/L Normal 3.5-5.1 [facility] Comment on above: Performed By: #### T SH, CMP, LDH #### [facility] [address] [place] [address] Dr. Alesia Meyers Sodium [Moles/Vol] 141 mmol/L Normal 136-145 [facility] Comment on above: Performed By: #### T SH, CMP, LDH #### [facility] [address] [place] [address] Dr. Alesia Meyers Urea nitrogen [Mass/Vol] 16.0 mg/dL Normal 7.0-18.0 [facility] Comment on above: Performed By: #### T SH, CMP, LDH #### [facility] [address] [place] [address] Dr. Alesia Meyers Urea nitrogen/Creatinine [Mass ratio] 18.4 mg/mg Normal [facility] Comment on above: Performed By: #### T SH, CMP, LDH #### [facility] [address] [place] [address] Dr. Alesia Meyers TSHon 07-21-2022 TSH 2.383 uIU/mL Normal 0.358-3.74 0 [facility] Comment on above: Performed By: #### T SH, CMP, LDH #### [facility] [address] [place] [address] Dr. Alesia Meyers ACTH, PLASMAon 06-21-2022 ACTH, Plasma 30.4 pg/mL Normal 7.2-63.3 [facility] Comment on above: Result Comment: ACTH reference interval for samples collected between 7 and 10 AM. Performed By: #### T SH, CMP, LDH #### [facility] [address] [place] [address] Dr. Alesia Meyers CORTISOLon 06-21-2022 Cortisol 16.9 ug/dL Normal [facility] Comment on above: Result Comment: Melvin isol AM 6.2 - 19.4 Cortisol PM 2.3 - 11.9 Performed By: #### C ORTISO #### [facility] [address] [place] [address] Dr. Alesia Meyers CBC AUTO DIFFon 06-20-2022 BASO # 0.0 103/ul Normal 0.0-0.1 [facility] Comment on above: Performed By: #### T SH, CMP, LDH #### [facility] [address] [place] [address] Dr. Alesia Meyers Basophils/100 WBC (Bld) 0.5 % Normal 0.2-2.0 [facility] Comment on above: Performed By: #### T SH, CMP, LDH #### [facility] [address] [place] [address] Dr. Alesia Meyers EO # 0.1 103/ul Normal 0.0-0.7 [facility] Comment on above: Performed By: #### T SH, CMP, LDH #### [facility] [address] [place] [address] Dr. Alesia Meyers Eosinophils/100 WBC (Bld) 2.1 % Normal 0.9-7.0 [facility] Comment on above: Performed By: #### T SH, CMP, LDH #### [facility] [address] [place] [address] Dr. Alesia Meyers Erythrocyte distribution width (RBC) [Ratio] 13.3 % Normal 11.0-15.0 [facility] Comment on above: Performed By: #### T SH, CMP, LDH #### [facility] [address] [place] [address] Dr. Alesia Meyers Hematocrit (Bld) [Volume fraction] 40.2 % Normal 36.0-48.0 [facility] Comment on above: Performed By: #### T SH, CMP, LDH #### [facility] [address] [place] [address] Dr. Alesia Meyers Hemoglobin (Bld) [Mass/Vol] 13.5 g/dL Normal 12.0-16.0 [facility] Comment on above: Performed By: #### T SH, CMP, LDH #### [facility] [address] [address] [address] Alesia Meyers IG # 0.02 10e3/ul Normal 0.00-0.03 [facility] Comment on above: Performed By: #### T SH, CMP, LDH #### [facility] [address] [address] [address] Alesia Meyers IG % 0.3 % Normal 0.0-0.5 [facility] Comment on above: Performed By: #### T SH, CMP, LDH #### [facility] [address] [address] [address] Alesia Meyers LYMPH # 2.3 103/ul Normal 1.2-3.8 [facility] Comment on above: Performed By: #### T SH, CMP, LDH #### [facility] [address] [place] [address] Dr. Alesia Meyers Lymphocytes/100 WBC (Bld) 35.0 % Normal 20.5-60.0 [facility] Comment on above: Performed By: #### T SH, CMP, LDH #### [facility] [address] [place] [address] Dr. Alesia Meyers MANUAL DIFF REQ NO Normal [facility] Comment on above: Performed By: #### T SH, CMP, LDH #### [facility] [address] [place] [address] Dr. Alesia Meyers MCH (RBC) [Entitic mass] 29.3 pg Normal 26.7-34.0 [facility] Comment on above: Performed By: #### T SH, CMP, LDH #### [facility] [address] [place] [address] Dr. Alesia Meyers MCHC (RBC) [Mass/Vol] 33.6 g/dL Normal 29.9-35.2 [facility] Comment on above: Performed By: #### T SH, CMP, LDH #### [facility] [address] [place] [address] Dr. Alesia Meyers MCV (RBC) [Entitic vol] 87.2 fL Normal 81.0-99.0 [facility] Comment on above: Performed By: #### T SH, CMP, LDH #### [facility] [address] [place] [address] Dr. Alesia Meyers MONO # 0.6 103/ul Normal 0.3-0.8 [facility] Comment on above: Performed By: #### T SH, CMP, LDH #### [facility] [address] [place] [address] Dr. Alesia Meyers Monocytes/100 WBC (Bld) 8.8 % Normal 1.7-12.0 [facility] Comment on above: Performed By: #### T SH, CMP, LDH #### [facility] [address] [place] [address] Dr. Alesia Meyers NEUT # 3.5 103/ul Normal 1.4-6.5 [facility] Comment on above: Performed By: #### T SH, CMP, LDH #### [facility] [address] [place] [address] Dr. Alesia Meyers Neutrophils/100 WBC (Bld) 53.3 % Normal 43.0-75.0 [facility] Comment on above: Performed By: #### T SH, CMP, LDH #### [facility] [address] [place] [address] Dr. Alesia Meyers Platelet mean volume (Bld) [Entitic vol] 9.0 fL Critically low 9.5-13.5 [facility] Comment on above: Performed By: #### T SH, CMP, LDH #### [facility] [address] [place] [address] Dr. Alesia Meyers PLT 230 103/ul Normal 150-450 [facility] Comment on above: Performed By: #### T SH, CMP, LDH #### [facility] [address] [place] [address] Dr. Alesia Meyers RBC 4.61 106/ul Normal 4.20-5.40 [facility] Comment on above: Performed By: #### T SH, CMP, LDH #### [facility] [address] [place] [address] Dr. Alesia Meyers WBC 6.6 103/ul Normal 4.0-11.0 [facility] Comment on above: Performed By: #### T SH, CMP, LDH #### [facility] [address] [place] [address] Dr. Alesia Meyers FREE T4on 06-20-2022 Free T4 [Mass/Vol] 1.15 ng/dL Normal 0.76-1.46 [facility] Comment on above: Performed By: #### T SH, CMP, LDH #### [facility] [address] [address] [address] Alesia Meyers LDHon 06-20-2022 LDH 224 U/L Normal 81-234 [facility] Comment on above: Performed By: #### T SH, CMP, LDH #### [facility] [address] [place] [address] Dr. Alesia Meyers LIPASEon 06-20-2022 Lipase [Catalytic activity/Vol] 78.0 U/L Normal 73.0-393.0 [facility] Comment on above: Performed By: #### T SH, CMP, LDH #### [facility] [address] [place] [address] Dr. Alesia Meyers LIPID PROFILEon 06-20-2022 CHOL-HDL RATIO NORM SEE BELOW Normal [facility] Comment on above: Result Comment: 3.3 - 4.4 LOW RISK 4.4 - 7.1 AVERAGE RISK 7.1 - 11.0 MODERATE RISK >11.0 HIGH RISK Performed By: #### T SH, CMP, LDH #### [facility] [address] [place] [address] Dr. Alesia Meyers Cholesterol [Mass/Vol] 153 mg/dL Normal <=200 [facility] Comment on above: Performed By: #### T SH, CMP, LDH #### [facility] [address] [place] [address] Dr. Alesia Meyers Cholesterol in HDL [Mass/Vol] 80 mg/dL Critically high 40-60 [facility] Comment on above: Performed By: #### T SH, CMP, LDH #### [facility] [address] [place] [address] Dr. Alesia Meyers Cholesterol in LDL [Mass/Vol] 52.8 mg/dL Normal [facility] Comment on above: Performed By: #### T SH, CMP, LDH #### [facility] [address] [address] [address] Alesia Meyers Cholesterol.total/Chol esterol in HDL [Mass ratio] 1.9 {ratio} Normal [facility] Comment on above: Performed By: #### T SH, CMP, LDH #### [facility] [address] [address] [address] Alesia Meyers HDL NORMAL > or = 60 mg/dl - LO W CARDIOVASCULAR RISK <40 mg/dl - HIGH CARDIOVASCULAR RISK Normal [facility] Comment on above: Performed By: #### T SH, CMP, LDH #### [facility] [address] [address] [address] Alesia Meyers LDL CALC NORMAL SEE BELOW Normal [facility] Comment on above: Result Comment: <100 mg/dl OPTIMAL 100 - 129 mg/dl NEAR OR ABOVE OPTIMAL 130 - 159 mg/dl BORDERLINE HIGH 160 - 189 mg/dl HIGH >190 mg/dl VERY HIGH Performed By: #### T SH, CMP, LDH #### [facility] [address] [address] [address] Alesia Meyers Triglyceride [Mass/Vol] 101 mg/dL Normal <=150 [facility] Comment on above: Performed By: #### T SH, CMP, LDH #### [facility] [address] [address] [address] Alesia Meyers VLDL CALC 20.2 mg/dL Normal [facility] Comment on above: Performed By: #### T SH, CMP, LDH #### [facility] [address] [address] [address] Alesia Meyers LIVER PROFILEon 06-20-2022 Albumin [Mass/Vol] 3.5 g/dL Normal 3.4-5.0 [facility] Comment on above: Performed By: #### T SH, CMP, LDH #### [facility] [address] [address] [address] Alesia Meyers Albumin/Globulin [Mass ratio] 0.9 {ratio} Normal [facility] Comment on above: Performed By: #### T SH, CMP, LDH #### [facility] [address] [place] [address] Dr. Alesia Meyers ALP [Catalytic activity/Vol] 109 U/L Normal 46-116 [facility] Comment on above: Performed By: #### T SH, CMP, LDH #### [facility] [address] [place] [address] Dr. Alesia Meyers ALT [Catalytic activity/Vol] 39 U/L Normal 14-59 [facility] Comment on above: Performed By: #### T SH, CMP, LDH #### [facility] [address] [place] [address] Dr. Alesia Meyers AST [Catalytic activity/Vol] 34 U/L Normal 15-37 [facility] Comment on above: Performed By: #### T SH, CMP, LDH #### [facility] [address] [place] [address] Dr. Alesia Meyers BILI, CONJUGATED 0.1 mg/dL Normal 0.0-0.2 [facility] Comment on above: Performed By: #### T SH, CMP, LDH #### [facility] [address] [place] [address] Dr. Alesia Meyers Bilirubin [Mass/Vol] 0.4 mg/dL Normal 0.2-1.0 [facility] Comment on above: Performed By: #### T SH, CMP, LDH #### [facility] [address] [place] [address] Dr. Alesia Meyers Globulin (S) [Mass/Vol] 3.7 g/dL Normal [facility] Comment on above: Performed By: #### T SH, CMP, LDH #### [facility] [address] [place] [address] Dr. Alesia Meyers Protein [Mass/Vol] 7.2 g/dL Normal 6.4-8.2 [facility] Comment on above: Performed By: #### T SH, CMP, LDH #### [facility] [address] [place] [address] Dr. Alesia Meyers PROF CHEM 8 (BAS METB)on Anion gap [Moles/Vol] 11.4 mmol/L Normal Th [facility] Comment on above: Performed By: #### T SH, CMP, LDH #### [facility] [address] [address] [address] Alesia Meyers Calcium [Mass/Vol] 9.1 mg/dL Normal 8.5-10.1 [facility] Comment on above: Performed By: #### T SH, CMP, LDH #### [facility] [address] [address] [address] Alesia Meyers Chloride [Moles/Vol] 103 mmol/L Normal 98-107 [facility] Comment on above: Performed By: #### T SH, CMP, LDH #### [facility] [address] [place] [address] Dr. Alesia Meyers CO2 [Moles/Vol] 31.2 mmol/L Normal 21.0-32.0 [facility] Comment on above: Performed By: #### T SH, CMP, LDH #### [facility] [address] [place] [address] Dr. Alesia Meyers Creatinine [Mass/Vol] 0.90 mg/dL Normal 0.55-1.02 [facility] Comment on above: Performed By: #### T SH, CMP, LDH #### [facility] [address] [place] [address] Dr. Alesia Meyers EGFR-AF ALGERIAN >60 Normal >=60 [facility] Comment on above: Performed By: #### T SH, CMP, LDH #### [facility] [address] [address] [address] Alesia Meyers EGFR-NON AF ALGERIAN >60 Normal >=60 [facility] Comment on above: Performed By: #### T SH, CMP, LDH #### [facility] [address] [place] [address] Dr. Alesia Meyers Glucose [Mass/Vol] 105 mg/dL Normal 74-[address] [facility] Comment on above: Performed By: #### T SH, CMP, LDH #### [facility] [address] [place] [address] Dr. Alesia Meyers Potassium [Moles/Vol] 3.6 mmol/L Normal 3.5-5.1 [facility] Comment on above: Performed By: #### T SH, CMP, LDH #### [facility] [address] [place] [address] Dr. Alesia Meyers Sodium [Moles/Vol] 142 mmol/L Normal 136-[address] [facility] Comment on above: Performed By: #### T SH, CMP, LDH #### [facility] [address] [place] [address] Dr. Alesia Meyers Urea nitrogen [Mass/Vol] 22.0 mg/dL Critically high 7.0-18.0 [facility] Comment on above: Performed By: #### T SH, CMP, LDH #### [facility] [address] [place] [address] Dr. Alesia Meyers Urea nitrogen/Creatinine [Mass ratio] 24.4 mg/mg Normal [facility] Comment on above: Performed By: #### T SH, CMP, LDH #### [facility] [address] [place] [address] Dr. Alesia Meyers TSHon 06-20-2022 TSH 3.302 uIU/mL Normal 0.358-3.74 0 [facility] Comment on above: Performed By: #### T SH, CMP, LDH #### [facility] [address] [place] [address] Dr. Alesia Meyers ACTH, PLASMAon 05-31-2022 ACTH, Plasma 28.5 pg/mL Normal 7.2-63.3 [facility] Comment on above: Result Comment: ACTH reference interval for samples collected between 7 and 10 AM. Performed By: #### T SH, CMP, LDH #### [facility] [address] [place] [address] Dr. Alesia Meyers CORTISOLon 05-31-2022 Cortisol 17.2 ug/dL Normal [facility] Comment on above: Result Comment: Melvin isol AM 6.2 - 19.4 Cortisol PM 2.3 - 11.9 Performed By: #### T SH, CMP, LDH #### [facility] [address] [place] [address] Dr. Alesia Meyers CBC AUTO DIFFon 05-30-2022 BASO # 0.0 103/ul Normal 0.0-0.1 [facility] Comment on above: Performed By: #### T SH, CMP, LDH #### [facility] [address] [place] [address] Dr. Alesia Meyers Basophils/100 WBC (Bld) 0.4 % Normal 0.2-2.0 [facility] Comment on above: Performed By: #### T SH, CMP, LDH #### [facility] [address] [place] [address] Dr. Alesia Meyers EO # 0.1 103/ul Normal 0.0-0.7 [facility] Comment on above: Performed By: #### T SH, CMP, LDH #### [facility] [address] [place] [address] Dr. Alesia Meyers Eosinophils/100 WBC (Bld) 2.1 % Normal 0.9-7.0 [facility] Comment on above: Performed By: #### T SH, CMP, LDH #### [facility] [address] [place] [address] Dr. Alesia Meyers Erythrocyte distribution width (RBC) [Ratio] 12.9 % Normal 11.0-15.0 [facility] Comment on above: Performed By: #### T SH, CMP, LDH #### [facility] [address] [place] [address] Dr. Alesia Meyers Hematocrit (Bld) [Volume fraction] 41.0 % Normal 36.0-48.0 [facility] Comment on above: Performed By: #### T SH, CMP, LDH #### [facility] [address] [place] [address] Dr. Alesia Meyers Hemoglobin (Bld) [Mass/Vol] 13.5 g/dL Normal 12.0-16.0 [facility] Comment on above: Performed By: #### T SH, CMP, LDH #### [facility] [address] [place] [address] Dr. Alesia Meyers IG # 0.02 10e3/ul Normal 0.00-0.03 [facility] Comment on above: Performed By: #### T SH, CMP, LDH #### [facility] [address] [place] [address] Dr. Alesia Meyers IG % 0.3 % Normal 0.0-0.5 [facility] Comment on above: Performed By: #### T SH, CMP, LDH #### [facility] [address] [place] [address] Dr. Alesia Meyers LYMPH # 2.1 103/ul Normal 1.2-3.8 [facility] Comment on above: Performed By: #### T SH, CMP, LDH #### [facility] [address] [place] [address] Dr. Alesia Meyers Lymphocytes/100 WBC (Bld) 30.5 % Normal 20.5-60.0 [facility] Comment on above: Performed By: #### T SH, CMP, LDH #### [facility] [address] [place] [address] Dr. Alesia Meyers MANUAL DIFF REQ NO Normal [facility] Comment on above: Performed By: #### T SH, CMP, LDH #### [facility] [address] [place] [address] Dr. Alesia Meyers MCH (RBC) [Entitic mass] 28.6 pg Normal 26.7-34.0 [facility] Comment on above: Performed By: #### T SH, CMP, LDH #### [facility] [address] [place] [address] Dr. Alesia Meyers MCHC (RBC) [Mass/Vol] 32.9 g/dL Normal 29.9-35.2 [facility] Comment on above: Performed By: #### T SH, CMP, LDH #### [facility] [address] [place] [address] Dr. Alesia Meyers MCV (RBC) [Entitic vol] 86.9 fL Normal 81.0-99.0 [facility] Comment on above: Performed By: #### T SH, CMP, LDH #### [facility] [address] [place] [address] Dr. Alesia Meyers MONO # 0.5 103/ul Normal 0.3-0.8 [facility] Comment on above: Performed By: #### T SH, CMP, LDH #### [facility] [address] [place] [address] Dr. Alesia Meyers Monocytes/100 WBC (Bld) 7.8 % Normal 1.7-12.0 [facility] Comment on above: Performed By: #### T SH, CMP, LDH #### [facility] [address] [place] [address] Dr. Alesia Meyers NEUT # 4.0 103/ul Normal 1.4-6.5 [facility] Comment on above: Performed By: #### T SH, CMP, LDH #### [facility] [address] [place] [address] Dr. Alesia Meyers Neutrophils/100 WBC (Bld) 58.9 % Normal 43.0-75.0 [facility] Comment on above: Performed By: #### T SH, CMP, LDH #### [facility] [address] [place] [address] Dr. Alesia Meyers Platelet mean volume (Bld) [Entitic vol] 9.0 fL Critically low 9.5-13.5 [facility] Comment on above: Performed By: #### T SH, CMP, LDH #### [facility] [address] [place] [address] Dr. Alesia Meyers PLT 224 103/ul Normal 150-450 [facility] Comment on above: Performed By: #### T SH, CMP, LDH #### [facility] [address] [place] [address] Dr. Alesia Meyers RBC 4.72 106/ul Normal 4.20-5.40 [facility] Comment on above: Performed By: #### T SH, CMP, LDH #### [facility] [address] [place] [address] Dr. Alesia Meyers WBC 6.8 103/ul Normal 4.0-11.0 [facility] Comment on above: Performed By: #### T SH, CMP, LDH #### [facility] [address] [place] [address] Dr. Alesia Meyers FREE T4on 05-30-2022 Free T4 [Mass/Vol] 1.19 ng/dL Normal 0.76-1.[address] [facility] Comment on above: Performed By: #### T SH, CMP, LDH #### [facility] [address] [place] [address] Dr. Alesia Meyers LDHon 05-30-2022 LDH 231 U/L Normal 81-234 [facility] Comment on above: Performed By: #### F T4 #### [facility] [address] [place] [address] Dr. Alesia Meyers LIPASEon 05-30-2022 Lipase [Catalytic activity/Vol] 76.0 U/L Normal 73.0-393.0 [facility] Comment on above: Performed By: #### F T4 #### [facility] [address] [place] [address] Dr. Alesia Meyers LIVER PROFILEon 05-30-2022 Albumin [Mass/Vol] 3.5 g/dL Normal 3.4-5.0 [facility] Comment on above: Performed By: #### F T4 #### [facility] [address] [place] [address] Dr. Alesia Meyers Albumin/Globulin [Mass ratio] 0.9 {ratio} Normal [facility] Comment on above: Performed By: #### F T4 #### [facility] [address] [place] [address] Dr. Alesia Meyers ALP [Catalytic activity/Vol] 128 U/L Critically high 46-116 [facility] Comment on above: Performed By: #### F T4 #### [facility] [address] [place] [address] Dr. Alesia Meyers ALT [Catalytic activity/Vol] 35 U/L Normal 14-59 [facility] Comment on above: Performed By: #### F T4 #### [facility] [address] [place] [address] Dr. Alesia Meyers AST [Catalytic activity/Vol] 25 U/L Normal 15-37 [facility] Comment on above: Performed By: #### F T4 #### [facility] [address] [address] [address] Alesia ALEXANDRAI, CONJUGATED 0.1 mg/dL Normal 0.0-0.2 [facility] Comment on above: Performed By: #### F T4 #### [facility] [address] [place] [address] Dr. Alesia Meyers Bilirubin [Mass/Vol] 0.4 mg/dL Normal 0.2-1.0 [facility] Comment on above: Performed By: #### F T4 #### [facility] [address] [place] [address] Dr. Alesia Meyers Globulin (S) [Mass/Vol] 3.7 g/dL Normal [facility] Comment on above: Performed By: #### F T4 #### [facility] [address] [place] [address] Dr. Alesia Meyers Protein [Mass/Vol] 7.2 g/dL Normal 6.4-8.[address] [facility] Comment on above: Performed By: #### F T4 #### [facility] [address] [place] [address] Dr. Alesia Meyers PROF CHEM 8 (BAS METB)on Anion gap [Moles/Vol] 7.3 mmol/L Normal [facility] Comment on above: Performed By: #### F T4 #### [facility] [address] [place] [address] Dr. Alesia Meyers Calcium [Mass/Vol] 9.0 mg/dL Normal 8.5-10.[address] [facility] Comment on above: Performed By: #### F T4 #### [facility] [address] [place] [address] Dr. Alesia Meyers Chloride [Moles/Vol] 102 mmol/L Normal 98-107 [facility] Comment on above: Performed By: #### F T4 #### [facility] [address] [place] [address] Dr. Alesia Meyers CO2 [Moles/Vol] 32.3 mmol/L Critically high 21.0-32.0 [facility] Comment on above: Performed By: #### F T4 #### [facility] [address] [address] [address] Alesia Meyers Creatinine [Mass/Vol] 0.94 mg/dL Normal 0.55-1.02 [facility] Comment on above: Performed By: #### F T4 #### [facility] [address] [address] [address] Alesia Meyers EGFR-AF ALGERIAN >60 Normal >=60 [facility] Comment on above: Performed By: #### F T4 #### [facility] [address] [address] [address] Alesia Meyers EGFR-NON AF ALGERIAN 58 mL/min/1.73m2 Critically low >=60 [facility] Comment on above: Performed By: #### F T4 #### [facility] [address] [address] [address] Alesia Meyers Glucose [Mass/Vol] 108 mg/dL Critically high 74-106 [facility] Comment on above: Performed By: #### F T4 #### [facility] [address] [address] [address] Alesia Meyers Potassium [Moles/Vol] 3.6 mmol/L Normal 3.5-5.1 [facility] Comment on above: Performed By: #### F T4 #### [facility] [address] [address] [address] Alesia Meyers Sodium [Moles/Vol] 138 mmol/L Normal 136-145 [facility] Comment on above: Performed By: #### F T4 #### [facility] [address] [address] [address] Alesia Meyers Urea nitrogen [Mass/Vol] 24.0 mg/dL Critically high 7.0-18.0 [facility] Comment on above: Performed By: #### F T4 #### [facility] [address] [address] [address] Alesia Meyers Urea nitrogen/Creatinine [Mass ratio] 25.5 mg/mg Normal [facility] Comment on above: Performed By: #### F T4 #### [facility] [address] [place], [place] [address] Dr. Alesia Meyers TSHon 05-30-2022 TSH 2.605 uIU/mL Normal 0.358-3.74 0 [facility] Comment on above: Performed By: #### F T4 #### [facility] [id number] Alesia Meyers ACTH, PLASMAon 05-14-2022 ACTH, Plasma 17.0 pg/mL Normal 7.2-63.3 [facility] Comment on above: Result Comment: ACTH reference interval for samples collected between 7 and 10 AM. Performed By: #### A CTHP #### [facility] [address] [address] [address] Alesia Meyers ACTH, PLASMAon 05-12-2022 ACTH, Plasma WRORD Normal [facility] Comment on above: Result Comment: Test not performed. The required specimen for the test ordered was not received. received refrigerate plasma edta contacted Sheyla at your facility on 05-12-2022 ACTH reference interval for samples collected between 7 and 10 AM. Performed By: #### F T4 #### [facility] [address] [place] [address] Dr. Alesia Meyers Albumin [Mass/volume] in Ser um or PlasmaOrdered By: Sly Benson on 05-12-2022 Albumin [Mass/Vol] 3.5 g/dL 3.2-5.[address] [facility] Direct bilirubin measurement Ordered By: Sly Benson on 05-12-2022 Bilirubin.direct [Mass/Vol] mg/dL 0.0-0.4 [facility] Globulin Calc (S) [Mass/Vol] Ordered By: Sly Benson on 05-12-2022 Globulin (S) [Mass/Vol] 3.0 g/dL [facility] - Chemistry and C hemistry - challengeOrdered By: Sly Benson on 05-12-2022 Lipase [Catalytic activity/Vol] 26.0 U/L 22-51 [facility] Lactate dehydrogenase measur ement (enzymatic activity/volume)Ordered By: Sly Benson on 05-12-2022 LDH (Unsp spec) [Catalytic activity/Vol] 199 U/L 45-190 [facility] No Panel InformationOrdered By: Sly Benson on 05-12-2022 Adrenocorticotropic Hormone 243.0 pg/mL 7.2-63.3 [facility] Comment on above: ACTH reference inter jamel for samples collected between 7 and10 AM.Performed at: [facility] [id number] Director: Coleman Lacy PhD, Phone: [phone] Protein [Mass/volume] in Ser um or PlasmaOrdered By: Sly Benson on 05-12-2022 Protein [Mass/Vol] 6.5 g/dL 6.1-7.[address] [facility] Random cortisol measurementO rdered By: Sly Benson on 05-12-2022 Cortisol [Mass/Vol] 14.6 ug/dL [facility] Comment on above: Reference range: AM 6 - 24 ug/dl PM <10 ug/dl Serum or plasma alanine castro otransferase measurement without P-5'-P (enzymatic activiOrdered By: Sly Benson on 05-12-2022 ALT No additional P-5'-P [Catalytic activity/Vol] 31 U/L 10-60 [facility] Serum or plasma albumin/glob ulin mass ratioOrdered By: Sly Benson on 05-12-2022 Albumin/Globulin [Mass ratio] 1.2 {ratio} [facility] Serum or plasma alkaline halle sphatase measurement (enzymatic activity/volume)Ordered By: Sly Benson on 05-12-2022 ALP [Catalytic activity/Vol] 112 U/L 32-92 [facility] Serum or plasma aspartate am inotransferase measurement (enzymatic activity/volume)Ordered By: Sly Benson on 05-12-2022 AST [Catalytic activity/Vol] 33 U/L 1042 [facility] Serum or plasma non-glucuron idated bilirubin measurement (mass/volume)Ordered By: Sly Benson on 05-12-2022 Bilirubin.indirect [Mass/Vol] TNP [facility] Comment on above: Test not performed Serum or plasma total biliru bin measurement (mass/volume)Ordered By: Sly Benson on 05-12-2022 Bilirubin [Mass/Vol] 0.8 mg/dL 0.3-1.2 [facility] Thyroxine (T4) free [Mass/vo lume] in Serum or PlasmaOrdered By: Sly Benson on 05-12-2022 Free T4 [Mass/Vol] 1.17 ng/dL 0.61-1.[address] [facility] CORTISOLon 05-11-2022 Cortisol 15.4 ug/dL Normal [facility] Comment on above: Result Comment: Melvin isol AM 6.2 - 19.4 Cortisol PM 2.3 - 11.9 Performed By: #### T SH, CMP, LDH #### [facility] [address] [place] [address] Dr. Alesia Meyers CBC AUTO DIFFon 05-10-2022 BASO # 0.0 103/ul Normal 0.0-0.1 [facility] Comment on above: Performed By: #### C BC #### [facility] [address] [address] [address] Alesia Meyers Basophils/100 WBC (Bld) 0.3 % Normal 0.2-2.0 [facility] Comment on above: Performed By: #### C BC #### [facility] [address] [address] [address] Alesia Meyers EO # 0.2 103/ul Normal 0.0-0.7 [facility] Comment on above: Performed By: #### C BC #### [facility] [address] [address] [address] Alesia Meyers Eosinophils/100 WBC (Bld) 2.5 % Normal 0.9-7.0 [facility] Comment on above: Performed By: #### C BC #### [facility] [address] [place] [address] Dr. Alesia Meyers Erythrocyte distribution width (RBC) [Ratio] 13.2 % Normal 11.0-15.0 [facility] Comment on above: Performed By: #### C BC #### [facility] [address] [place] [address] Dr. Alesia Meyers Hematocrit (Bld) [Volume fraction] 39.1 % Normal 36.0-48.0 [facility] Comment on above: Performed By: #### C BC #### [facility] [address] [place] [address] Dr. Alesia Meyers Hemoglobin (Bld) [Mass/Vol] 12.9 g/dL Normal 12.0-16.0 [facility] Comment on above: Performed By: #### C BC #### [facility] [address] [place] [address] Dr. Alesia Meyers IG # 0.01 10e3/ul Normal 0.00-0.03 [facility] Comment on above: Performed By: #### C BC #### [facility] [address] [place] [address] Dr. Alesia Meyers IG % 0.2 % Normal 0.0-0.5 [facility] Comment on above: Performed By: #### C BC #### [facility] [address] [place] [address] Dr. Alesia Meyers LYMPH # 1.9 103/ul Normal 1.2-3.8 [facility] Comment on above: Performed By: #### C BC #### [facility] [address] [place] [address] Dr. Alesia Meyers Lymphocytes/100 WBC (Bld) 32.2 % Normal 20.5-60.0 [facility] Comment on above: Performed By: #### C BC #### [facility] [address] [place] [address] Dr. Alesia Meyers MANUAL DIFF REQ NO Normal [facility] Comment on above: Performed By: #### C BC #### [facility] [address] [place] [address] Dr. Alesia Meyers MCH (RBC) [Entitic mass] 29.0 pg Normal 26.7-34.0 [facility] Comment on above: Performed By: #### C BC #### [facility] [address] [place] [address] Dr. Alesia Meyers MCHC (RBC) [Mass/Vol] 33.0 g/dL Normal 29.9-35.2 [facility] Comment on above: Performed By: #### C BC #### [facility] [address] [place] [address] Dr. Alesia Meyers MCV (RBC) [Entitic vol] 87.9 fL Normal 81.0-99.0 [facility] Comment on above: Performed By: #### C BC #### [facility] [address] [place] [address] Dr. Alesia Meyers MONO # 0.5 103/ul Normal 0.3-0.8 [facility] Comment on above: Performed By: #### C BC #### [facility] [address] [place] [address] Dr. Alesia Meyers Monocytes/100 WBC (Bld) 8.5 % Normal 1.7-12.0 [facility] Comment on above: Performed By: #### C BC #### [facility] [address] [place] [address] Dr. Alesia Meyers NEUT # 3.3 103/ul Normal 1.4-6.5 [facility] Comment on above: Performed By: #### C BC #### [facility] [address] [place] [address] Dr. Alesia Meyers Neutrophils/100 WBC (Bld) 56.3 % Normal 43.0-75.0 [facility] Comment on above: Performed By: #### C BC #### [facility] [address] [place] [address] Dr. Alesia Meyers Platelet mean volume (Bld) [Entitic vol] 9.6 fL Normal 9.5-13.5 [facility] Comment on above: Performed By: #### C BC #### [facility] [address] [place] [address] Dr. Alesia Meyers PLT 210 103/ul Normal 150-450 [facility] Comment on above: Performed By: #### C BC #### [facility] [address] [place] [address] Dr. Alesia Meyers RBC 4.45 106/ul Normal 4.20-5.40 [facility] Comment on above: Performed By: #### C BC #### [facility] [address] [place] [address] Dr. Alesia Meyers WBC 5.9 103/ul Normal 4.0-11.0 [facility] Comment on above: Performed By: #### C BC #### [facility] [address] [place] [address] Dr. Alesia Meyers FREE T4on 05-10-2022 Free T4 [Mass/Vol] 1.19 ng/dL Normal 0.76-1.46 [facility] Comment on above: Performed By: #### F T4 #### [facility] [address] [place] [address] Dr. Alesia Meyers LDHon 05-10-2022 LDH 252 U/L Critically high 81-234 [facility] Comment on above: Performed By: #### T SH, CMP, LDH #### [facility] [address] [place] [address] Dr. Alesia Meyers LIPASEon 05-10-2022 Lipase [Catalytic activity/Vol] 70.0 U/L Critically low 73.0-393.0 [facility] Comment on above: Performed By: #### T SH, CMP, LDH #### [facility] [address] [place] [address] Dr. Alesia Meyers LIVER PROFILEon 05-10-2022 Albumin [Mass/Vol] 3.3 g/dL Critically low 3.4-5.0 [facility] Comment on above: Performed By: #### T SH, CMP, LDH #### [facility] [address] [place] [address] Dr. Alesia Meyers Albumin/Globulin [Mass ratio] 0.9 {ratio} Normal [facility] Comment on above: Performed By: #### T SH, CMP, LDH #### [facility] [address] [place] [address] Dr. Alesia Meyers ALP [Catalytic activity/Vol] 129 U/L Critically high 46-116 [facility] Comment on above: Performed By: #### T SH, CMP, LDH #### [facility] [address] [place] [address] Dr. Alesia Meyers ALT [Catalytic activity/Vol] 35 U/L Normal 14-59 [facility] Comment on above: Performed By: #### T SH, CMP, LDH #### [facility] [address] [place] [address] Dr. Alesia Meyers AST [Catalytic activity/Vol] 36 U/L Normal 15-37 [facility] Comment on above: Performed By: #### T SH, CMP, LDH #### [facility] [address] [place] [address] Dr. Alesia Meyers BILI, CONJUGATED 0.1 mg/dL Normal 0.0-0.2 [facility] Comment on above: Performed By: #### T SH, CMP, LDH #### [facility] [address] [place] [address] Dr. Alesia Meyers Bilirubin [Mass/Vol] 0.4 mg/dL Normal 0.2-1.0 [facility] Comment on above: Performed By: #### T SH, CMP, LDH #### [facility] [address] [place] [address] Dr. Alesia Meyers Globulin (S) [Mass/Vol] 3.7 g/dL Normal [facility] Comment on above: Performed By: #### T SH, CMP, LDH #### [facility] [address] [place] [address] Dr. Alesia Meyers Protein [Mass/Vol] 7.0 g/dL Normal 6.4-8.2 [facility] Comment on above: Performed By: #### T SH, CMP, LDH #### [facility] [address] [place] [address] Dr. Alesia Meyers PROF CHEM 8 (BAS METB)on Anion gap [Moles/Vol] 11.7 mmol/L Normal [facility] Comment on above: Performed By: #### T SH, CMP, LDH #### [facility] [address] [place] [address] Dr. Alesia Meyers Calcium [Mass/Vol] 8.9 mg/dL Normal 8.5-10.1 [facility] Comment on above: Performed By: #### T SH, CMP, LDH #### [facility] [address] [address] [address] Alesia Meyers Chloride [Moles/Vol] 104 mmol/L Normal 98-107 [facility] Comment on above: Performed By: #### T SH, CMP, LDH #### [facility] [address] [address] [address] Alesia Meyers CO2 [Moles/Vol] 29.3 mmol/L Normal 21.0-32.0 [facility] Comment on above: Performed By: #### T SH, CMP, LDH #### [facility] [address] [place] [address] Dr. Alesia Meyers Creatinine [Mass/Vol] 0.84 mg/dL Normal 0.55-1.02 [facility] Comment on above: Performed By: #### T SH, CMP, LDH #### [facility] [address] [place] [address] Dr. Alesia Meyers EGFR-AF ALGERIAN >60 Normal >=60 [facility] Comment on above: Performed By: #### T SH, CMP, LDH #### [facility] [address] [place] [address] Dr. Alesia Meyers EGFR-NON AF ALGERIAN >60 Normal >=60 [facility] Comment on above: Performed By: #### T SH, CMP, LDH #### [facility] [address] [address] [address] Alesia Meyesr Glucose [Mass/Vol] 109 mg/dL Critically high 74-106 [facility] Comment on above: Performed By: #### T SH, CMP, LDH #### [facility] [address] [place] [address] Dr. Alesia Meyers Potassium [Moles/Vol] 4.0 mmol/L Normal 3.5-5.1 [facility] Comment on above: Performed By: #### T SH, CMP, LDH #### [facility] [address] [place] [address] Dr. Alesia Meyers Sodium [Moles/Vol] 141 mmol/L Normal 136-145 [facility] Comment on above: Performed By: #### T SH, CMP, LDH #### [facility] [address] [address] [address] Alesia Meyers Urea nitrogen [Mass/Vol] 19.0 mg/dL Critically high 7.0-18.0 [facility] Comment on above: Performed By: #### T SH, CMP, LDH #### [facility] [address] [address] [address] Alesia Meyers Urea nitrogen/Creatinine [Mass ratio] 22.6 mg/mg Normal [facility] Comment on above: Performed By: #### T SH, CMP, LDH #### [facility] [address] [address] [address] Alesia Meyers TSHon 05-10-2022 TSH 3.114 uIU/mL Normal 0.358-3.74 0 [facility] Comment on above: Performed By: #### T SH, CMP, LDH #### [facility] [address] [address] [address] Alesia Meyers Activated partial thrombopla stin time (aPTT) in platelet poor plasma by coagulation aOrdered By: Sly Benson on 04-28-2022 aPTT Coag (PPP) [Time] 28.1 s 25.1-36.5 [facility] Albumin [Mass/volume] in Ser um or PlasmaOrdered By: Sly Benson on 04-28-2022 Albumin [Mass/Vol] 3.5 g/dL 3.2-5.[address] [facility] Basophils Auto (Bld) [#/Vol] Ordered By: Sly Benson on 04-28-2022 Basophils (Bld) [#/Vol] 0.0 10*3/uL 0.0-0.2 [facility] Basophils/100 WBC Auto (Bld) Ordered By: Sly Benson on 04-28-2022 Basophils/100 WBC (Bld) 0.5 % . [facility] Creatinine and Glomerular fi ltration rate.predicted panel (S/P/Bld)Ordered By: Sly Benson on 04-28-2022 Creatinine [Mass/Vol] 0.84 mg/dL 0.44-1.03 [facility] Eosinophils Auto (Bld) [#/Vo l]Ordered By: Sly Benson on 04-28-2022 Eosinophils (Bld) [#/Vol] 0.1 10*3/uL 0.0-0.45 [facility] Eosinophils/100 WBC Auto (Bl d)Ordered By: Sly Benson on 04-28-2022 Eosinophils/100 WBC (Bld) 1.1 % . [facility] Erythrocyte distribution wid th Auto (RBC) [Ratio]Ordered By: Sly Benson on 04-28-2022 Erythrocyte distribution width (RBC) [Ratio] 14.1 % 11.9-15.3 [facility] Erythrocyte sedimentation ra te by Photometric methodOrdered By: Sly Benson on 04-28-2022 ESR Photometric method (Bld) [Velocity] 31 mm/hr 0-29 [facility] Estimated glomerular filtrat ion rate (GFR) non- AmericanOrdered By: Sly Benson on 04-28-2022 GFR/1.73 sq M.predicted among non-blacks MDRD (S/P/Bld) [Vol rate/Area] > 60 mL/Min [facility] Globulin Calc (S) [Mass/Vol] Ordered By: Sly Benson on 04-28-2022 Globulin (S) [Mass/Vol] 2.9 g/dL [facility] Hematocrit Auto (Bld) [Volum e fraction]Ordered By: Sly Benson on 04-28-2022 Hematocrit (Bld) [Volume fraction] 40.5 % 34.0-46.4 [facility] Hemoglobin [Mass/volume] in BloodOrdered By: Sly Benson on 04-28-2022 Hemoglobin (Bld) [Mass/Vol] 13.6 g/dL 11.8-15.4 [facility] - CoagulationOrde red By: Sly Benson on 04-28-2022 PT Coag (PPP) [Time] 10.6 s 9.0-12.9 [facility] - Hematology and Cell countsOrdered By: Sly Benson on 04-28-2022 Nucleated RBC/100 WBC (Bld) [Ratio] 0.1 % 0-0.5 [facility] Leukocytes [#/volume] in Blo od by Automated countOrdered By: Sly Benson on 04-28-2022 WBC (Bld) [#/Vol] 6.9 10*3/uL 4.5-11.[address] [facility] Lymphocytes Auto (Bld) [#/Vo l]Ordered By: Sly Benson on 04-28-2022 Lymphocytes (Bld) [#/Vol] 2.0 10*3/uL 1.00-4.8 [facility] Lymphocytes/100 WBC Auto (Bl d)Ordered By: Sly Benson on 04-28-2022 Lymphocytes/100 WBC (Bld) 28.3 % . [facility] MCH Auto (RBC) [Entitic mass ]Ordered By: Sly Benson on 04-28-2022 MCH (RBC) [Entitic mass] 29.4 pg 24.7-34.3 [facility] MCHC Auto (RBC) [Mass/Vol]Or dered By: Sly Benson on 04-28-2022 MCHC (RBC) [Mass/Vol] 33.6 g/dL 32.0-35.0 [facility] MCV Auto (RBC) [Entitic vol] Ordered By: Sly Benson on 04-28-2022 MCV (RBC) [Entitic vol] 87.5 fL 80-100 [facility] Monocytes Auto (Bld) [#/Vol] Ordered By: Sly Benson on 04-28-2022 Monocytes (Bld) [#/Vol] 0.6 10*3/uL 0.0-0.8 [facility] Monocytes/100 WBC Auto (Bld) Ordered By: Sly Benson on 04-28-2022 Monocytes/100 WBC (Bld) 8.5 % . [facility] Neutrophils Auto (Bld) [#/Vo l]Ordered By: Sly Benson on 04-28-2022 Neutrophils (Bld) [#/Vol] 4.2 10*3/uL 1.8-7.7 [facility] Neutrophils/100 WBC Auto (Bl d)Ordered By: Sly Benson on 04-28-2022 Neutrophils/100 WBC (Bld) 61.6 % . [facility] No Panel InformationOrdered By: Sly Benson on 04-28-2022 Anti-Nuclear Antibody Comment 2 See comment . [facility] Comment on above: For more information about Hep-2 cell patterns useBuilding Successful TeenspatterHexAirbot.org, the official website for the InternationalYammersus on Antinuclear Antibody (BARRETT) Patterns (ICAP). ----A positive BARRETT result may occur in healthy individuals (lowtiter) or be associated with a variety of diseases. Seeinterpretation chart which is not all inclusive:Pattern Antigen Detected Suggested Disease Association Homogeneous DNA(ds,ss), SLE - High titers Nucleosomes, Histones Drug-induced SLE Speckled Sm, INSPECTOR MACHINE CUT GLASS, SCL-70, SLE,MCTD,PSS (diffuse form), SS-A/SS-B Sjogrens Nucleolar SCL-70, PM-1/SCL High titers Scleroderma, PM/DM Centromere Centromere PSS (limited form) w/Crest syndrome variable Nuclear Dot Sp100,[id number] Primary Biliary Cirrhosis Nuclear GP210, Primary Biliary CirrhosisMembrane fish A,B,C Performed at: [facility] [address] [id number] Director: Coleman Lacy PhD, Phone: [phone] Estimated GFR () > 60 mL/Min [facility] Comment on above: GFR estimated refere nce range: According to KDOQI guidelines, <60 ml/min/1.73m2 is sufficient to diagnose a patient with chronic kidney disease. Pharmacy Creatinine Clearance (Chem 60.78 [facility] Platelet mean volume Auto (B ld) [Entitic vol]Ordered By: Sly Benson on 04-28-2022 Platelet mean volume (Bld) [Entitic vol] 7.6 fL 6.3-10.7 [facility] Platelet poor plasma interna tional normalized ratio (INR) by coagulation assay (relatOrdered By: Sly Benson on 04-28-2022 INR Coag (PPP) [Relative time] 0.9 {INR} [facility] Comment on above: INR Therapeutic Rang [...] 04-28-2022 Platelets (Bld) [#/Vol] 204 10*3/uL 150-450 [facility] Protein [Mass/volume] in Ser um or PlasmaOrdered By: Sly Benson on 04-28-2022 Protein [Mass/Vol] 6.4 g/dL 6.1-7.[address] [facility] RBC Auto (Bld) [#/Vol]Ordere d By: Sly Benson on 04-28-2022 RBC (Bld) [#/Vol] 4.63 10*6/uL 3.60-5.00 [facility] Serum nuclear antibody titer Ordered By: Sly Benson on 04-28-2022 Nuclear Ab (S) [Titer] Positive . [facility] Comment on above: Negative <1:80 Borde rline 1:80 Positive >1:80 Serum or plasma alanine castro otransferase measurement without P-5'-P (enzymatic activiOrdered By: Sly Benson on 04-28-2022 ALT No additional P-5'-P [Catalytic activity/Vol] 34 U/L 10-60 [facility] Serum or plasma albumin/glob ulin mass ratioOrdered By: Sly Benson on 04-28-2022 Albumin/Globulin [Mass ratio] 1.2 {ratio} [facility] Serum or plasma alkaline halle sphatase measurement (enzymatic activity/volume)Ordered By: Sly Benson on 04-28-2022 ALP [Catalytic activity/Vol] 114 U/L 32-92 [facility] Serum or plasma anion gap de terminationOrdered By: Sly Benson on 04-28-2022 Anion gap [Moles/Vol] 11.9 mmol/L 6.0-15.0 [facility] Serum or plasma aspartate am inotransferase measurement (enzymatic activity/volume)Ordered By: Sly Benson on 04-28-2022 AST [Catalytic activity/Vol] 38 U/L 10-42 [facility] Serum or plasma calcium diamond urement (mass/volume)Ordered By: Sly Benson on 04-28-2022 Calcium [Mass/Vol] 8.9 mg/dL 8.2-10.[address] [facility] Serum or plasma chloride zora surement (moles/volume)Ordered By: Sly Benson on 04-28-2022 Chloride [Moles/Vol] 105 mmol/L 95-114 [facility] Serum or plasma glucose diamond urement (mass/volume)Ordered By: Sly Benson on 04-28-2022 Glucose [Mass/Vol] 110 mg/dL 70-[address] [facility] Comment on above: ADA recommended refe rence rangeRandom Glucose Reference Range is dependent on time and content of last meal. Glucose of more than 200 mg/dL in a nonstressed, ambulatory subject supports the diagnosis of Diabetes Mellitus. Serum or plasma potassium me asurement (moles/volume)Ordered By: Sly Benson on 04-28-2022 Potassium [Moles/Vol] 3.5 mmol/L 3.5-5.1 [facility] Serum or plasma sodium measu rement (moles/volume)Ordered By: Sly Benson on 04-28-2022 Sodium [Moles/Vol] 140 mmol/L 136-[address] [facility] Serum or plasma total biliru bin measurement (mass/volume)Ordered By: Sly Benson on 04-28-2022 Bilirubin [Mass/Vol] 0.9 mg/dL 0.3-1.2 [facility] Serum or plasma total carbon dioxide measurement (moles/volume)Ordered By: Sly Benson on 04-28-2022 CO2 [Moles/Vol] 26.6 mmol/L 22.0-30.0 [facility] Serum or plasma urea nitroge n measurement (mass/volume)Ordered By: Sly Benson on 04-28-2022 Urea nitrogen [Mass/Vol] 16 mg/dL 9-23 [facility] Serum speckled pattern antin uclear antibody (BARRETT) titerOrdered By: Sly Benson on 04-28-2022 Speckled nuclear Ab pattern (S) [Titer] 1:160 . [facility] Comment on above: ICAP nomenclature: A C-2,4,5,29 TSH DL <= 0.005 mIU/L QnOrde red By: Sly Benson on 04-28-2022 TSH Qn 3.18 m[IU]/L 0.45-5.33 [facility] Creatinine and Glomerular fi ltration rate.predicted panel (S/P/Bld)Ordered By: Alex Trammell on 03-26-2022 Creatinine [Mass/Vol] 0.87 mg/dL 0.44-1.03 [facility] Estimated glomerular filtrat ion rate (GFR) non- AmericanOrdered By: Alex Trammell on 03-26-2022 GFR/1.73 sq M.predicted among non-blacks MDRD (S/P/Bld) [Vol rate/Area] > 60 mL/Min [facility] No Panel InformationOrdered By: Alex Trammell on 03-26-2022 Estimated GFR () > 60 mL/Min [facility] Comment on above: GFR estimated refere nce range: According to KDOQI guidelines, <60 ml/min/1.73m2 is sufficient to diagnose a patient with chronic kidney disease. Pharmacy Creatinine Clearance (Chem N/A [facility] Serum or plasma urea nitroge n measurement (mass/volume)Ordered By: Alex Trammell on 03-26-2022 Urea nitrogen [Mass/Vol] 18 mg/dL 9- [facility] Creatinine and Glomerular fi ltration rate.predicted panel (S/P/Bld)Ordered By: Alex Trammell on 10-10-2021 Creatinine [Mass/Vol] 0.91 mg/dL 0.44-1.03 [facility] Estimated glomerular filtrat ion rate (GFR) non- AmericanOrdered By: Alex Trammell on 10-10-2021 GFR/1.73 sq M.predicted among non-blacks MDRD (S/P/Bld) [Vol rate/Area] 60 mL/Min [facility] No Panel InformationOrdered By: Alex Trammell on 10-10-2021 Estimated GFR () > 60 mL/Min [facility] Comment on above: GFR estimated refere nce range: According to KDOQI guidelines, <60 ml/min/1.73m2 is sufficient to diagnose a patient with chronic kidney disease. Pharmacy Creatinine Clearance (Chem N/A [facility] Serum or plasma urea nitroge n measurement (mass/volume)Ordered By: Alex Trammell on 10-10-2021 Urea nitrogen [Mass/Vol] 19 mg/dL 04-04 [facility] Dermatopathologyon Dermatopathology Name THERESA LUU Pathologist: [...] M.D. Electronically Signed Out By SURAJ MELGAR MD/[facility] By the signature on this report, [...] mm. Inked and embedded in toto. mlz/09/18/2021 [facility] [place], [place] [id number] [place] [address] Normal [facility] Comment on above: Performed By: #### D #### Dermatopathology No Panel Informationon 09-17 [id number]-Obgeepc-P [facility] Work Phone: Office Visit (Oncology Surge ry)on 09-17-2021 Follow-up visit Diagnoses/Problems Assessed Malignant melanoma of left lower leg (172.7) (U64.72) Patient Discussion/Summary Mrs. Luu is very nice [...] not connect with the medical oncologist at [facility] who was planning to consider her [...] a prior mole. The patient moved from [place] 8 years ago and has not established [...] reports that she has not seen her senior sales assistant since prior to the cancer treatment. As [...] swelling fro (more content not included)... Normal [facility] COMPREHENSIVE METABOLIC PANE [facility] 05-04-2021 Albumin [Mass/Vol] 4.1 g/dL Normal 3.6-5.1 [facility] Comment on above: Performed By: #### 7 600, [id number] #### [facility] [address] [address] [employer] Operator: Chadwick Suárez MD Albumin/Globulin [Mass ratio] 1.4 {ratio} Normal 1.0-2.5 [facility] Comment on above: Performed By: #### 7 600, 22769 #### [facility] [address] [address] [employer] Operator: Chadwick Suárez MD ALP [Catalytic activity/Vol] 121 U/L Normal 37-153 [facility] Comment on above: Performed By: #### 7 600, 98249 #### [facility] [address] [address] [employer] Operator: Chadwick Suárez MD ALT [Catalytic activity/Vol] 18 U/L Normal 6-29 [facility] Comment on above: Performed By: #### 7 600, 50316 #### [facility] [address] [address] [employer] Operator: Chadwick Suárez MD AST [Catalytic activity/Vol] 19 U/L Normal 10-35 [facility] Comment on above: Performed By: #### 7 600, 98909 #### [facility] [address] [place] [address] [employer] Operator: Chadwick Suárez MD Bilirubin [Mass/Vol] 0.5 mg/dL Normal 0.2-1.2 [facility] Comment on above: Performed By: #### 7 600, 52500 #### [facility] of [address], [address] [place] [address] [employer] Operator: Chadwick Suárez MD BUN/CREATININE RATIO NOT APPLICABLE Normal 6-22 [facility] Comment on above: Performed By: #### 7 600, 64202 #### [facility] of [address], [address] [place] [address] [employer] Operator: Chadwick Suárez MD Calcium [Mass/Vol] 9.4 mg/dL Normal 8.6-10.4 [facility] Comment on above: Performed By: #### 7 600, 75352 #### [facility] [address], [address] [place] [address] [employer] Operator: Chadwick Suárez MD Chloride [Moles/Vol] 106 mmol/L Normal 98-110 [facility] Comment on above: Performed By: #### 7 600, 86771 #### [facility] of [address], [address] [place] [address] [employer] Operator: Chadwick Suárez MD CO2 [Moles/Vol] 31 mmol/L Normal 20-32 [facility] Comment on above: Performed By: #### 7 600, 80753 #### [facility] [address], [address] [place] [address] [employer] Operator: Chadwick Suárez MD Creatinine [Mass/Vol] 0.78 mg/dL Normal 0.60-0.93 [facility] Comment on above: Result Comment: For patients >49 years of age, the reference limit for Creatinine is approximately 13% higher for people identified as -Chinese. Performed By: #### 7 600, 99720 #### [facility] of [address], [address] [place] [address] [employer] Operator: Chadwick Suárez MD eGFR NON-AFR. ALGERIAN 75 mL/min/1.73m2 Normal > OR = 60 [facility] Comment on above: Performed By: #### 7 600, 92374 #### [facility] [address], [address] [place] [address] [employer] Operator: Chadwick Suárez MD GFR/1.73 sq M.predicted among blacks MDRD (S/P/Bld) [Vol rate/Area] 87 mL/min/{1.73_m2} Normal > OR = 60 [facility] Comment on above: Performed By: #### 7 600, 97863 #### [facility] [address], [address] [place] [address] [employer] Operator: Chadwick Suárez MD Globulin (S) [Mass/Vol] 2.9 g/dL Normal 1.9-3.7 [facility] Comment on above: Performed By: #### 7 600, 83076 #### [facility] [address], [address] [place] [address] [employer] Operator: Chadwick Suárez MD Glucose [Mass/Vol] 105 mg/dL High 65-99 [facility] Comment on above: Result Comment: Fasting reference interval For someone without known diabetes, a glucose value between 100 and 125 mg/dL is consistent with prediabetes and should be confirmed with a follow-up test. Performed By: #### 7 600, 39394 #### [facility] [address], [address] [place] [address] [employer] Operator: Chadwick Suárez MD Potassium [Moles/Vol] 4.9 mmol/L Normal 3.5-5.[address] [facility] Comment on above: Performed By: #### 7 600, 09713 #### [facility] [address] [address] [employer] Operator: Chadwick Suárez MD Protein [Mass/Vol] 7.0 g/dL Normal 6.1-8.1 [facility] Comment on above: Performed By: #### 7 600, 96214 #### [facility] [address], [address] [place] [address] [employer] Operator: Chadwick Suárez MD Sodium [Moles/Vol] 143 mmol/L Normal 135-146 [facility] Comment on above: Performed By: #### 7 600, 00996 #### [facility] [address], [address] [place] [address] [employer] Operator: Chadwick Suárez MD Urea nitrogen [Mass/Vol] 18 mg/dL Normal 7-25 [facility] Comment on above: Performed By: #### 7 600, 78473 #### [facility] [address], [address] [place] [address] [employer] Operator: Chadwick Suárez MD LIPID PANEL, [facility] 10-2 Cholesterol [Mass/Vol] 235 mg/dL High <200 [facility] Comment on above: Order Comment: FASTI NG:YES AN UPDATE OR CORRECTION HAS BEEN MADE TO NAME FASTING: YES Performed By: #### 7 600, 87434 #### [facility] [address], [address] [place] [address] [employer] Operator: Chadwick Suárez MD Cholesterol in HDL [Mass/Vol] 83 mg/dL Normal > OR = 50 [facility] Comment on above: Order Comment: FASTI NG:YES AN UPDATE OR CORRECTION HAS BEEN MADE TO NAME FASTING: YES Performed By: #### 7 600, 26089 #### [facility] [address] [place] [address] [employer] Operator: Chadwick Suárez MD Cholesterol in LDL [...] LDL-C. Enrique BOUDREAUX et al. ROCCO. 2013;310(19): 9019-9914 (http://education.Jiuxian.com.Entangled Media/faq/ANX840) Performed By: #### 7 600, 81582 #### [facility] [address], [address] [place] [address] [employer] Operator: Chadwick Suárez MD Cholesterol.total/Chol esterol in HDL [Mass ratio] 2.8 {ratio} Normal <5.0 [facility] Comment on above: Order Comment: FASTI NG:YES AN UPDATE OR CORRECTION HAS BEEN MADE TO NAME FASTING: YES Performed By: #### 7 600, 12211 #### [facility] [address], [address] [place] [address] [employer] Operator: Chadwick Suárez MD NON HDL CHOLESTEROL [...] therapeutic option. Performed By: #### 7 600, 18096 #### [facility] [address], [address] [place] [address] [employer] Operator: Chadwick Suárez MD Triglyceride [Mass/Vol] 132 mg/dL Normal <150 [facility] Comment on above: Order Comment: FASTI NG:YES AN UPDATE OR CORRECTION HAS BEEN MADE TO NAME FASTING: YES Performed By: #### 7 600, 28359 #### [facility] [address], [address] [place] [address] [employer] Operator: Chadwick Suárez MD Office Visit (Oncology [...] was referred to Dr. Francisca Rose at [facility] for medical oncology consultation for her in-transit [...] a prior mole. The patient moved from [place] 8 years ago and has not established [...] be referred to Dr. Francisca Rose at [facility] for medical oncology consultation. Her care will [...] a prior mole. The patient moved from [place] 8 years ago and has not established [...] Disorder of (more content not included)... Normal [facility] Cult, Misc + smearon 021 Bacteria identified Cx Nom (Unsp spec) Abnormal OR-Ppgrspj-C [facility] Work Phone: MISCELLANEOUS CULT./SM.BACT. on 12-04-2020 MISCELLANEOUS CULT./SM.BACT. PATIENT: THERESA LUU LOCATION: [facility] BILL#: [id number] : 47 AGE: SEX: F ORDERED BY: [...] DOSE DEPENDENT NS=NONSUSCEPTIBLE X=REPORTED IN ERROR Normal [facility] Comment on above: Performed By: #### M [facility] #### [facility] [address] [place] [address] Office Visit (Oncology Surge ry)on 12-04-2020 Follow-up [...] be referred to Dr. Francisca Rose at [facility] for medical oncology consultation. Her [...] a prior mole. The patient moved from [place] 8 years ago and has not established [...] The s (more content not included)... Normal [facility] Office Visit (Oncology Surge ry)on 11-27-2020 Follow-up [...] be referred to Dr. Francisca Rose at [facility] for medical oncology consultation. Her [...] a prior mole. The patient moved from [place] 8 years ago and has not established [...] Malignant jerson (more content not included)... Normal [facility] Dermatopathologyon Dermatopathology [facility] [address] [place] [id number] DERMATOPATHOLOGY REPORT Name:THERESA LUU [facility]. Rec #. [id number] Location: [facility] Date of Procedure: 11/16/2020 Race: Date Received: [...] by the Department of Pathology at [facility]. The FDA does not require this [...] LEFT LOWER LEG MELANOMA: SPECIMEN Procedure: Re-excision Fowler node(s) biopsy Specimen Laterality: Left TUMOR Tumor [...] of Lymph Nodes Examined: 3 Number of Fowler Nodes Examined: 2 PATHOLOGIC STAGE CLASSIFICATION (pTNM, [...] ADDITIONAL FINDINGS Additional Findings: None ADDITIONAL TESTING BLOOD TESTER FOWL BLOCKS: Normal Block: D1 - 5, 7, 18, 20 - 23 Tumor Block: D6, 8 - 17 Electronically Signed Out By SURAJ MELGAR MD/MICHAEL By the signature on this report, the individual or group listed as making the Final Interpretation/Diagnosis certifies that they have reviewed this case. Clinical History: A: Fowler lymph n (more content not included)... Normal [facility] Comment on above: Performed By: #### D #### Dermatopathology LYMPH GLANDon 11-16-2020 LYMPH GLAND Patient Name: THERESA LUU STUDY: LYMPH GLAND; 11/16/2020 10:05 am INDICATION: Malignant melanoma of left lower leg. COMPARISON: PET-CT 10/31/2020. ACCESSION NUMBER(S): [id number] ORDERING CLINICIAN: ALEX TRAMMELL TECHNIQUE: DIVISION OF NUCLEAR MEDICINE RADIONUCLIDE SENTINEL LYMPH NODE LYMPHOSCINTIGRAPHY A total of 970 microcuries of Tc-99m tilmanocept ([employer]) was injected intradermally in a circumferential pattern [...] review. Electronically signed by: COCO ARCHIBALD MD [facility] No Panel Informationon 11-16 IU-Xpzmwit-K [facility] Work Phone: Order Reconciliationon 11-16 Order [...] every 6 hours, As Needed pain Normal [facility] Patient Profile - Preop v2on 11-16-2020 Patient Profile - Preop v2 Profile: Initial Info: How to be Addressedpamela(1) Spoken Language PreferredEnglish (1) Source of Informationpatient Are you currently using the Personal Electronic Health Record or bOombateRock'n Rover Stated Reason for Admissionmelanoma on my lower left leg Primary Contact Name and Numberdonna-cousin Other Contact Names and Numberssue-friend Patient Belongingsremains with patient; patient educated regarding responsibility for personal items Patient Belongings Remaining with Patientclothing Medications Brought to Hospitalno General Health: Weight in kg90 kilogram(s) Weight in wmr361.4 pound(s) Weight Methodactual (measured) Scale Typechair Height in feet5 feet Height in inches2 inch(es) Height in cm157.4 centimeter(s) Height Methodstated BMI (kg/m2)36.327 square meter Patient or Family Member Reaction to Anesthesiano previous reaction Blood Avoidance/Restrictionsnone Previous Transfusion Reactionno Health Mgmt: Symptoms/Conditions Managed at Homecancer Cancer Symptoms/Conditionsmelanom a Barriers to Managing Healthnone Relationship/Environ: Living Arrangementshouse Lives Withalone Resource/Environmental Concernsnone Anticipated [facility] Anticipated at Transitionnone Substance: Current [...] material; individual instruction Cultural Considerationsnone Developmental Considerationsnone Zoroastrianism Considerationsnone Other learner availableno [place] RiskPatient location [...] Profile - Preop v2 14-Nov-2020 09:30 Normal [facility] [place]list[place] 11-16-2020 Preop Checklist Preop Checklist: Preop Checklist: Arrival [id number] Arrival Time06:04 NPO [id number] 22:00 ID Band Onyes Allergy Bandno known [...] Updated: 16-Nov-2020 06:31 by Deepa Zazueta) Normal [facility] [place]iology[place] 11-16-2020 NM Lymph node Views Normal MG-Burton rgery-S [facility] Work Phone: BASIC METABOLIC PANELon 05-0 Anion gap [Moles/Vol] 10 mmol/L Normal 10 - 20 [facility] Comment on above: Performed By: #### B MP #### [address] [place] [address] Calcium [Mass/Vol] 9.2 mg/dL Normal 8.6 - 10.3 [facility] Comment on above: Performed By: #### B MP #### [address] [address] Chloride [Moles/Vol] 105 mmol/L Normal 98 - 107 [facility] Comment on above: Performed By: #### B MP #### [address] [place] [address] Creatinine [Mass/Vol] 0.81 mg/dL Normal 0.50 - 1.05 [facility] Comment on above: Performed By: #### B MP #### [address] [place] [address] GFR- AM. >60 Normal >60 [facility] Comment on above: Result Comment: CALC ULATIONS OF ESTIMATED GFR ARE PERFORMED USING THE MDRD STUDY EQUATION FOR THE IDMS-TRACEABLE CREATININE METHODS. CLIN CHEM 2007;53:766-72 Performed By: #### B MP #### [address] [address] GFR-NON AM. >60 Normal >60 [facility] Comment on above: Performed By: #### B MP #### [address] [address] Glucose [Mass/Vol] 95 mg/dL Normal 74 - 99 [facility] Comment on above: Performed By: #### B MP #### [address] [address] HCO3 (Bld) [Moles/Vol] 30 mmol/L Normal 21 - 32 [facility] Comment on above: Performed By: #### B MP #### [address] [address] Potassium [Moles/Vol] 4.1 mmol/L Normal 3.5 - 5.3 [facility] Comment on above: Performed By: #### B MP #### [facility] [place] [id number] [place] [address]. [place] [address] Sodium [Moles/Vol] 141 mmol/L Normal 136 - 145 [facility] Comment on above: Performed By: #### B MP #### [address] [place] [address] Urea nitrogen [Mass/Vol] 16 mg/dL Normal 6 - 23 [facility] Comment on above: Performed By: #### B MP #### [address] [place] [address] CORONAVIRUS 2019, SCREEN ASY MPTOMATICon 11-14-2020 SARS-CoV-2 (COVID-19) RNA BENOIT+probe Ql (Unsp spec) Not detected Normal Not Detected [facility] Comment on above: Result Comment: [...] this test method. Fact sheet for providers: https://www.fda.gov/media/646444/download Fact sheet for patients: https://www.fda.gov/media/473188/download This test has received FDA Emergency Use Authorization [EUA] and has been verified by [facility] ([facility]). This test is only authorized for the duration of time that circumstances exist to justify the authorization of the emergency use of in vitro diagnostic tests for the detection of SARS-CoV-2 virus and/or diagnosis of COVID-19 infection under section 564(b)(1) of the Act, 21 U.S.C. 360bbb-3(b)(1), unless the authorization is terminated or revoked sooner. [facility] is certified under CLIA-88 as qualified to perform high complexity testing. Testing is performed in the [facility] laboratories located at [address] [place] [address]. Performed By: #### C OVSC #### [place] [address] Lab Specimen Source Nasal, Nasopharyngeal Normal [facility] Comment on above: Performed By: #### C OVSC #### [facility] [address] [facility] [place] [address] Coronavirus 2019 RNA by PCR, Screening Asymptomticon 11-14-2020 Coronavirus 2019 RNA by PCR, Screening Asymptomtic Not detected Normal See Below EL-Licidct-A [facility] Work Phone: Comment on above: SOURCE: [...] this test method. Fact sheet for providers: https://www.fda.gov/media/739030/downloadFact sheet for patients: https://www.fda.gov/media/616575/downloadThis test has received FDA Emergency Use Authorization [EUA] and has been verified by [facility] ([facility]). This test is only authorized for the duration of time that circumstances exist to justify the authorization of the emergency use of in vitro diagnostic tests for the detection of SARS-CoV-2 virus and/or diagnosis of COVID-19 infection under section 564(b)(1) of the Act, 21 U.S.C. 360bbb-3(b)(1), unless the authorization is terminated or revoked sooner. [facility] is certified under CLIA-88 as qualified to perform high complexity testing. Testing is performed in the [facility] laboratories located at [address] [place] [address]. Covid 19 Resultson SARS-CoV-2 (COVID-19) RNA BENOIT+probe [...] You may also be contacted by the [facility] to see if any of [...] or Naproxen (Aleve) can also be used. Mmar-wyj-ajucaim cough and cold medicines can be used according to the instructions on the package. Some dysy-fxu-qqwwwvl medicines also contain acetaminophen. Make sure you [...] water are not available, use alcohol-based hand life scientists. Avoid touching your eyes, nose, and mouth [...] 24 sivakumar (more content not included)... Normal [facility] Laboratory - Chemistry and C hemistry - challengeon 05-05-2021 Anion gap [Moles/Vol] 10 mmol/L 10 - 20 MG- Surgery-S [facility] Work Phone: Calcium [Mass/Vol] 9.2 mg/dL 8.6 - 10.3 MG-Pedro nancyS [facility] Work Phone: [phone] Chloride [Moles/Vol] 105 mmol/L 98 - 107 MG-S urgery-S [facility] Work Phone: CO2 [Moles/Vol] 30 mmol/L 21 - 32 MG-Surger y-S [facility] Work Phone: Creatinine [Mass/Vol] 0.81 mg/dL See Below MG- Surgery-S [facility] Work Phone: Comment on above: Reference Range: 0.5 0 - 1.05 Glucose [Mass/Vol] 95 mg/dL 74 - 99 [facility] Work Phone: Potassium [Moles/Vol] 4.1 mmol/L 3.5 - 5.3 MG- SurgeryS [facility] Work Phone: Sodium [Moles/Vol] 141 mmol/L 136 - 145 [facility] Work Phone: Urea nitrogen [Mass/Vol] 16 mg/dL 6 - 23 EV-Fwtbfft-E [facility] Work Phone: No Panel Informationon 11-14 >60 >60 ZH-Zahdlnp-N [facility] Work Phone: Comment on above: CALCULATIONS OF DENIS MATED GFR ARE PERFORMED USING THE MDRD STUDY EQUATION FOR THE IDMS-TRACEABLE CREATININE METHODS. CLIN CHEM 2007;53:766-72 [email or web address] 1:8080 /chikispts/[email or web address].dll?R etrieveTestByDateTime?Rachel ercXO=[id number]&Date=11-14&Time=09%3a51%3a40%3a 00&TestType=ECG&Site=12&Ou tputType=PDF&Ext=PDF DI-Ovueemj-J [facility] [place] Work Phone: [phone] Normal sinus rhythm MG-Burton rgery-S [facility] Work Phone: [phone] Normal YF-Forzajh-D [facility] [place] Work Phone: [phone] ZR-Sfbyoqr-P [facility] Work Phone: [phone] GU-Qlbjuvk-U [facility] Work Phone: [phone] DQ-Iuokdhp-O [facility] Work Phone: [phone] FY-Icivuww-G [facility] Work Phone: [phone] EW-Akrhhou-Y [facility] Work Phone: [phone] LJ-Wgikvqz-M [facility] Work Phone: [phone] BU-Akoxfca-D [facility] Work Phone: [phone] XI-Faabfzo-S [facility] Work Phone: [phone] MP-Hgyovop-N [facility] Work Phone: [phone] RS-Emlshze-B [facility] Work Phone: [phone] 1 KV-Kpthaaa-U [facility] Work Phone: [phone] UU-Zfymdxy-D [facility] Work Phone: [phone] [place]Tynzozq[facility]Z [facility] [place] Work Phone: [phone] KR-Qitwqzr-A [facility] [place] Work Phone: PET/CT MELANOMA INITIAL STAG INGon 10-31-2020 PET/CT MELANOMA INITIAL STAGING Patient Name: [...] leg biopsy-proven melanoma. COMPARISON: None. ACCESSION NUMBER(S): [id number] ORDERING CLINICIAN: ALEX TRAMMELL TECHNIQUE: DIVISION OF [...] CODING: Initial Treatment Strategy (PI) CALIBRATION: Dose Pkitgkkyg-fn-Qfnm Interval (mins): 72 min Mediastinal bloodpool SUV [...] stated. This study was interpreted at [facility]. Electronically signed by: IVELISSE OVALLE MD Normal [facility] Office Visit (Oncology Surge ry)on [...] lower leg melanoma. She has no palpable willaims disease or evidence of metastatic disease at [...] a prior mole. The patient moved from [place] 8 years ago and has not established [...] chronic medical conditions Social history: Lives in [place] independently. Has 2 dogs. Walks regularly. Denies tobacco, alcohol, and drug use. Has extended family in [place] Allergies: No known drug allergies [...] of (more content not included)... Normal [employer] [facility] Surgical Pathology Depar tmenton 10-16-2020 [facility] Surgical Pathology Department Name THERESA LUU Pathologist: SHER DIAS MD Date of Procedure: 10/16/2020 Date Received: 10/31/2020 Date Reported 11/02/2020 Submitting Physician: SURAJ MELGAR MD Location: [facility] FINAL DIAGNOSIS RESULTS OF ANCILLARY TESTING ORDERED [...] extraction and testing are performed in the [facility] ([facility]) located at [address] [place] [address] (CLIA License #[id number], CAP #[id number]). This laboratory developed test was developed and its analytical performance characteristics have been determined by [facility]. This test has not been cleared or approved by the FDA; however, the FDA has determined that such approval is not necessary. The [facility] is certified under the Clinical Laboratory [...] as m (more content not included)... Normal [facility] Comment on above: Performed By: #### U [facility] #### [facility] Surgical Pathology Department [address] [address] [facility] [address] Vital Signs Date Time Vital Sign Value Performing Clinician Facility 01-22-2024 09:19-0400 Body temperature 98 [degF] DO [employer] Work Phone: [facility] 01-22-2024 09:19-0400 Body weight 85.72 kg DO [employer] Work Phone: [facility] 01-22-2024 09:19-0400 Diastolic blood pressure 64 mm[Hg] DO [employer] Work Phone: [facility] 01-22-2024 09:19-0400 Heart rate 80 /min DO [employer] Work Phone: [facility] 01-22-2024 09:19-0400 Respiratory rate 20 /min DO Yoni Furlong Work Phone: [facility] 01-22-2024 09:19-0400 SaO2% (BldA) [Mass fraction] 96 % DO Yoni Furlong Work Phone: [facility] 01-22-2024 09:19-0400 Systolic blood pressure 134 mm[Hg] DO Yoni Furlong Work Phone: [facility] 12-25-2023 13:25-0400 Body temperature 97.8 [degF] DO Yoni Furlong Work Phone: [facility] 12-25-2023 13:25-0400 Diastolic blood pressure 72 mm[Hg] DO Yoni Furlong Work Phone: [facility] 12-25-2023 13:25-0400 Heart rate 99 /min DO Yoni Furlong Work Phone: [facility] 12-25-2023 13:25-0400 Respiratory rate 16 /min DO Yoni Furlong Work Phone: [facility] 12-25-2023 13:25-0400 SaO2% (BldA) [Mass fraction] 95 % DO Yoni Furlong Work Phone: [facility] 12-25-2023 13:25-0400 Systolic blood pressure 124 mm[Hg] DO Yoni Furlong Work Phone: [facility] 09-30-2023 16:29-0400 Body height 157.5 cm 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 OIL AND GAS FIELD TECHNICIAN[employer] Work Phone: [facility] 09-30-2023 16:29-0400 Body mass index (BMI) [Ratio] 34.42 kg/m2 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 OIL AND GAS FIELD TECHNICIAN[employer] Work Phone: [facility] [employer] [facility] 09-30-2023 16:29-0400 Body temperature 99.19 [degF] 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 APRN-[employer] Work Phone: [employer] 09-30-2023 16:29-0400 Body weight 85.37 kg 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 APRN-[employer] [facility] 09-30-2023 16:29-0400 Diastolic blood pressure 60 mm[Hg] 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 APRN[employer] [facility] 09-30-2023 16:29-0400 Heart rate 94 /min 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 APRN[employer] [facility] 09-30-2023 16:29-0400 SaO2% (BldA) [Mass fraction] 96 % 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 APRN[employer] [facility] 09-30-2023 16:29-0400 Systolic blood pressure 120 mm[Hg] 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 APRN[employer] Work [facility] 09-15-2023 16:00-0500 Body height 157.5 cm Yoni Furlong [facility] 09-15-2023 16:00-0500 Body mass index (BMI) [Ratio] 34.84 kg/m2 Yoni Furlong DO [facility] 09-15-2023 16:00-0500 Body temperature 98.91 [degF] Yoni Furlong DO [facility] 09-15-2023 16:00-0500 Body weight 86.41 kg Yoni Furlong DO [facility] 09-15-2023 16:00-0500 Diastolic blood pressure 50 mm[Hg] Yoni Furlong DO [facility] 09-15-2023 16:00-0500 Heart rate 80 /min Yoni [employer] DO Work Phone: [facility] 09-15-2023 16:00-0500 SaO2% (BldA) [Mass fraction] 96 % Yoni Furlong DO Work Phone: [facility] 09-15-2023 16:00-0500 Systolic blood pressure 130 mm[Hg] Yoni Furlong DO Work Phone: [facility] 08-07-2023 11:24-0500 Body temperature 98.2 [degF] DO Yoni Furlong Work Phone: [facility] 08-07-2023 11:24-0500 Body weight 89.35 kg DO Yoni Furlong Work Phone: [facility] 08-07-2023 11:24-0500 Diastolic blood pressure 70 mm[Hg] DO Yoni Furlong Work Phone: [facility] 08-07-2023 11:24-0500 Heart rate 88 /min DO Yoni Furlong Work Phone: [facility] 08-07-2023 11:24-0500 Respiratory rate 18 /min DO Yoni Furlong Work Phone: [facility] 08-07-2023 11:24-0500 SaO2% (BldA) [Mass fraction] 98 % DO Yoni Furlong Work Phone: [facility] 08-07-2023 11:24-0500 Systolic blood pressure 151 mm[Hg] DO Yoni Furlong Work Phone: [facility] 07-14-2023 13:32-0500 Body temperature 98.2 [degF] DO Yoni Furlong Work Phone: [facility] 07-14-2023 13:32-0500 Diastolic blood pressure 78 mm[Hg] DO Yoni Furlong Work Phone: [facility] 07-14-2023 13:32-0500 Heart rate 81 /min DO Yoni Furlong Work Phone: [facility] 07-14-2023 13:32-0500 Respiratory rate 18 /min DO Yoni Furlong Work Phone: [facility] 07-14-2023 13:32-0500 SaO2% (BldA) [Mass fraction] 97 % DO Yoni Furlong Work Phone: [facility] 07-14-2023 13:32-0500 Systolic blood pressure 113 mm[Hg] DO Yoni Furlong Work Phone: [facility] 03-24-2023 10:14-0400 Body height 160.02 cm DO Yoni Furlong Work Phone: [facility] 03-06-2023 13:49-0400 Body temperature 97.8 [degF] DO Yoni Furlong Work Phone: [facility] 03-06-2023 13:49-0400 Body weight 89.35 kg DO Yoni Furlong Work Phone: [facility] 03-06-2023 13:49-0400 Diastolic blood pressure 71 mm[Hg] DO Yoni Furlong Work Phone: [facility] 03-06-2023 13:49-0400 Heart rate 87 /min DO Yoni Furlong Work Phone: [facility] 03-06-2023 13:49-0400 Respiratory rate 16 /min DO Yoni Furlong Work Phone: [facility] 03-06-2023 13:49-0400 SaO2% (BldA) [Mass fraction] 94 % DO Yoni Furlong Work Phone: [facility] 03-06-2023 13:49-0400 Systolic blood pressure 139 mm[Hg] DO Yoni Furlong Work Phone: [facility] 01-27-2023 10:30-0400 Body temperature 97.5 [degF] Kimber Lacy Other [employer] Other 01-27-2023 10:30-0400 Body weight 87.54 kg Kimber Lacy Other [employer] Other 01-27-2023 10:30-0400 Diastolic blood pressure 80 mm[Hg] Kimber Lcay Other [employer] Other 01-27-2023 10:30-0400 SaO2% (BldA) [Mass fraction] 96 % Kimber Lacy Other [employer] Other 01-27-2023 10:30-0400 Systolic blood pressure 159 mm[Hg] Kimber Lacy Other [facility] [employer] Other 01-27-2023 10:23-0400 Body temperature 97.5 [degF] DO Yoni Furlong Work Phone: [facility] 01-27-2023 10:23-0400 Body weight 88.49 kg DO Yoni Furlong Work Phone: [facility] 01-27-2023 10:23-0400 Diastolic blood pressure 80 mm[Hg] DO Yoni Furlong Work Phone: [facility] 01-27-2023 10:23-0400 Heart rate 90 /min DO Yoni Furlong Work Phone: [facility] 01-27-2023 10:23-0400 Respiratory rate 18 /min DO Yoni Furlong Work Phone: [facility] 01-27-2023 10:23-0400 SaO2% (BldA) [Mass fraction] 96 % DO Yoni Furlong Work Phone: [facility] 01-27-2023 10:23-0400 Systolic blood pressure 159 mm[Hg] DO Yoni Furlong Work Phone: [facility] 12-30-2022 09:56-0400 Body weight 88.45 kg DO Yoni Furlong Work Phone: [facility] 12-30-2022 08:26-0400 Body temperature 97.8 [degF] DO Yoni Furlong Work Phone: [facility] 12-30-2022 08:26-0400 Body weight 88.45 kg DO Yoni Furlong Work Phone: [facility] 12-30-2022 08:26-0400 Diastolic blood pressure 81 mm[Hg] DO Yoni Furlong Work Phone: [facility] 12-30-2022 08:26-0400 Heart rate 86 /min DO Yoni Furlong Work Phone: [facility] 12-30-2022 08:26-0400 Respiratory rate 16 /min DO Yoni Furlong Work Phone: [facility] 12-30-2022 08:26-0400 SaO2% (BldA) [Mass fraction] 98 % DO Yoni Furlong Work Phone: [facility] 12-30-2022 08:26-0400 Systolic blood pressure 132 mm[Hg] DO Yoni Furlong Work Phone: [facility] 09-08-2022 11:09-0500 Body weight 90.2 kg DO Yoni Furlong Work Phone: [facility] 09-08-2022 09:52-0500 Body temperature 97.9 [degF] DO Yoni Furlong Work Phone: [facility] 09-08-2022 09:52-0500 Body weight 90.2 kg DO Yoni Furlong Work Phone: [facility] 09-08-2022 09:52-0500 Diastolic blood pressure 82 mm[Hg] DO Yoni Furlong Work Phone: [facility] 09-08-2022 09:52-0500 Heart rate 78 /min DO Yoni Furlong Work Phone: [facility] 09-08-2022 09:52-0500 Respiratory rate 20 /min DO Yoni Furlong Work Phone: [facility] 09-08-2022 09:52-0500 SaO2% (BldA) [Mass fraction] 97 % DO Yoni Furlong Work Phone: [facility] 09-08-2022 09:52-0500 Systolic blood pressure 137 mm[Hg] DO Yoni Furlong Work Phone: [facility] 08-11-2022 11:25-0500 Body weight 89.4 kg DO Yoni Furlong Work Phone: [facility] 08-11-2022 10:28-0500 Body height 160.02 cm DO Yoni Furlong Work Phone: [facility] 08-11-2022 10:28-0500 Body temperature 97.4 [degF] DO Yoni Furlong Work Phone: [facility] 08-11-2022 10:28-0500 Diastolic blood pressure 68 mm[Hg] DO Yoni Furlong Work Phone: [facility] 08-11-2022 10:28-0500 Heart rate 82 /min DO Yoni Furlong Work Phone: [facility] 08-11-2022 10:28-0500 Respiratory rate 20 /min DO Yoni Furlong Work Phone: [facility] 08-11-2022 10:28-0500 SaO2% (BldA) [Mass fraction] 98 % DO Yoni Furlong Work Phone: [facility] 08-11-2022 10:28-0500 Systolic blood pressure 132 mm[Hg] DO Yoni Furlong Work Phone: [facility] 06-23-2022 12:05-0500 Body weight 88.6 kg DO Yoni Furlong Work Phone: [facility] 06-23-2022 10:44-0500 Body temperature 97.9 [degF] DO Yoni Furlong Work Phone: [facility] 06-23-2022 10:44-0500 Body weight 88.6 kg DO Yoni Furlong Work Phone: [facility] 06-23-2022 10:44-0500 Diastolic blood pressure 74 mm[Hg] DO Yoni Furlong Work Phone: [facility] 06-23-2022 10:44-0500 Heart rate 80 /min DO Yoni Furlong Work Phone: [facility] 06-23-2022 10:44-0500 Respiratory rate 18 /min DO Yoni Furlong Work Phone: [facility] 06-23-2022 10:44-0500 SaO2% (BldA) [Mass fraction] 98 % DO Yoni Furlong Work Phone: [facility] 06-23-2022 10:44-0500 Systolic blood pressure 141 mm[Hg] DO Yoni Furlong Work Phone: [facility] 06-02-2022 10:29-0500 Body temperature 97.7 [degF] DO Yoni Furlong Work Phone: [facility] 06-02-2022 10:29-0500 Body weight 89.9 kg DO Yoni Furlong Work Phone: [facility] 06-02-2022 10:29-0500 Diastolic blood pressure 82 mm[Hg] DO Yoni Furlong Work Phone: [facility] 06-02-2022 10:29-0500 Heart rate 92 /min DO Yoni Furlong Work Phone: [facility] 06-02-2022 10:29-0500 Respiratory rate 16 /min DO Yoni Furlong Work Phone: [facility] 06-02-2022 10:29-0500 SaO2% (BldA) [Mass fraction] 97 % DO Yoni Furlong Work Phone: [facility] 06-02-2022 10:29-0500 Systolic blood pressure 150 mm[Hg] DO Yoni Furlong Work Phone: [facility] 05-02-2022 15:07-0400 Body weight 92.8 kg DO Yoni Furlong Work Phone: [facility] 05-02-2022 15:07-0400 Diastolic blood pressure 83 mm[Hg] DO Yoni Furlong Work Phone: [facility] 05-02-2022 15:07-0400 Heart rate 87 /min DO Yoni Furlong Work Phone: [facility] 05-02-2022 15:07-0400 Respiratory rate 20 /min DO Yoni Furlong Work Phone: [facility] 05-02-2022 15:07-0400 SaO2% (BldA) [Mass fraction] 98 % DO Yoni Furlong Work Phone: [facility] 05-02-2022 15:07-0400 Systolic blood pressure 146 mm[Hg] DO Yoni Furlong Work Phone: [facility] 04-28-2022 09:07-0400 Diastolic blood pressure 76 mm[Hg] DO Yoni Furlong Work Phone: [facility] 04-28-2022 09:07-0400 Heart rate 93 /min DO Yoni Furlong Work Phone: [facility] 04-28-2022 09:07-0400 Respiratory rate 18 /min DO Yoni Furlong Work Phone: [facility] 04-28-2022 09:07-0400 SaO2% (BldA) [Mass fraction] 95 % DO Yoni Furlong Work Phone: [facility] 04-28-2022 09:07-0400 Systolic blood pressure 148 mm[Hg] DO Yoni Furlong Work Phone: [facility] 04-28-2022 08:11-0400 Body height 157.48 cm DO Yoni Furlong Work Phone: [facility] 04-28-2022 08:11-0400 Body temperature 98.6 [degF] DO Yoni Furlong Work Phone: [facility] 04-28-2022 08:11-0400 Body weight 91.17 kg DO Yoni Furlong Work Phone: [facility] 04-21-2022 08:54-0400 Body height 160.02 cm DO Yoni Furlong Work Phone: [facility] 04-21-2022 08:54-0400 Body temperature 98 [degF] DO Yoni Furlong Work Phone: [facility] 04-21-2022 08:54-0400 Body weight 91.48 kg DO Yoni Furlong Work Phone: [facility] 04-21-2022 08:54-0400 Diastolic blood pressure 87 mm[Hg] DO Yoni Furlong Work Phone: [facility] 04-21-2022 08:54-0400 Heart rate 85 /min DO Yoni Furlong Work Phone: [facility] 04-21-2022 08:54-0400 Respiratory rate 20 /min DO Yoni Furlong Work Phone: [facility] 04-21-2022 08:54-0400 SaO2% (BldA) [Mass fraction] 97 % DO Yoni Furlong Work Phone: [facility] 04-21-2022 08:54-0400 Systolic blood pressure 161 mm[Hg] DO Yoni Furlong Work Phone: [facility] 10-25-2021 09:45-0400 Body temperature 98 [degF] MD Alex Trammell Work Phone: [facility] 10-25-2021 09:45-0400 Body weight 90.94 kg MD Alex Trammell Work Phone: [facility] 10-25-2021 09:45-0400 Diastolic blood pressure 70 mm[Hg] MD Alex Trammell Work Phone: [facility] 10-25-2021 09:45-0400 Heart rate 90 /min MD Alex Trammell Work Phone: [facility] 10-25-2021 09:45-0400 Respiratory rate 20 /min MD Alex Trammell Work Phone: [facility] 10-25-2021 09:45-0400 SaO2% (BldA) [Mass fraction] 98 % MD Alex Trammell Work Phone: [facility] 10-25-2021 09:45-0400 Systolic blood pressure 141 mm[Hg] MD Alex Trammell Work Phone: [facility] 10-07-2021 08:13-0400 Body temperature 98.1 [degF] DO Sly Kelley II Work Phone: [facility] [facility] 10[facility]2021 08:13-0400 Body weight 92.8 kg DO Sly Adamowicz II Work Phone: [facility] 10-07-2021 08:13-0400 Diastolic blood pressure 78 mm[Hg] DO Sly Adamowicz II Work Phone: [facility] 10-07-2021 08:13-0400 Heart rate 96 /min DO Sly Adamowicz II Work Phone: [facility] 10-07-2021 08:13-0400 Respiratory rate 20 /min DO Sly Adamowicz II Work Phone: [facility] 10-07-2021 08:13-0400 SaO2% (BldA) [Mass fraction] 97 % DO Sly Adamowicz II Work Phone: [facility] 10-07-2021 08:13-0400 Systolic blood pressure 144 mm[Hg] DO Sly Adamowicz II Work Phone: [facility] 10-07-2021 08:05-0400 Body height 160.02 cm DO Sly Adamowicz II Work Phone: [facility] 09-17-2021 15:09-0500 Body temperature 98.6 [degF] Yoni Prolong Work Phone: [facility] 4607 Work Phone: 09-17-2021 15:09-0500 Body weight 89.54 kg Yoni Larson Furlong Work Phone: [facility] 460 Work Phone: 09-17-2021 15:09-0500 Diastolic blood pressure 81 mm[Hg] Yoni G Furlong Work Phone: [facility] 4605 Work Phone: 09-17-2021 15:09-0500 Heart rate 101 /min Yonijanee Prolong Work Phone: MA[facility] 4606 Work Phone: 09-17-2021 15:09-0500 Respiratory rate 18 /min Yoni Prolong Work Phone: [facility]dn[facility] 4602 Work Phone: 09-17-2021 15:09-0500 Systolic blood pressure 158 mm[Hg] Yoni Prolong Work Phone: KQ[facility]Nan[facility]ux[facility] 4609 Work Phone: 01-22-2021 14:42-0400 Body weight 88.03 kg Yoni Prolong Work Phone: KH-Ffcsmnk-Uflavkau 150 Work Phone: 01-22-2021 14:42-0400 Diastolic blood pressure 84 mm[Hg] Yoni Prolong Work Phone: KI-Tjbaqxl-Chewbnmc 150 Work Phone: 01-22-2021 14:42-0400 Heart rate 102 /min Yoni Prolong Work Phone: PX-Hpyuxmb-Qbvezgxi 150 Work Phone: 01-22-2021 14:42-0400 SaO2% (BldA) [Mass fraction] 95 % Yoni Prolong Work Phone: LP-Qrczxdw-Bmbtlawj 150 Work Phone: 01-22-2021 14:42-0400 Systolic blood pressure 149 mm[Hg] Yoni Prolong Work Phone: UF-Lzmkgad-Twrpwota 150 Work Phone: 12-25-2020 15:23-0400 Body weight 89.36 kg Yoni Larson Furlong Work Phone: [facility] Work Phone: 12-25-2020 15:23-0400 Diastolic blood pressure 85 mm[Hg] Yoni G Furlong Work Phone: [facility] Work Phone: 12-25-2020 15:23-0400 Heart rate 105 /min Yoni G Furlong Work Phone: [facility] Work Phone: 12-25-2020 15:23-0400 SaO2% (BldA) [Mass fraction] 95 % Yoni G Furlong Work Phone: [facility] Work Phone: 12-25-2020 15:23-0400 Systolic blood pressure 163 mm[Hg] Yoni G Furlong Work Phone: [facility] Work Phone: 12-04-2020 15:07-0400 Diastolic blood pressure 84 mm[Hg] Yoni G Furlong Work Phone: [facility] Work Phone: 12-04-2020 15:07-0400 Heart rate 111 /min Yoni G Furlong Work Phone: [facility] Work Phone: 12-04-2020 15:07-0400 SaO2% (BldA) [Mass fraction] 98 % Yoni G Furlong Work Phone: [facility] SM Work Phone: 12-04-2020 15:07-0400 Systolic blood pressure 154 mm[Hg] Yoni G Furlong Work Phone: [facility] Work Phone: 11-27-2020 15:10-0400 Body weight 90.72 kg Yoni G Furlong Work Phone: [facility] Work Phone: 11-27-2020 15:10-0400 Diastolic blood pressure 79 mm[Hg] Yoni Muller Work Phone: [facility] Work Phone: 11-27-2020 15:10-0400 Heart rate 98 /min Yoni Muller Work Phone: [facility] Work Phone: 11-27-2020 15:10-0400 SaO2% (BldA) [Mass fraction] 96 % Yoni Muller Work Phone: [facility] Work Phone: 11-27-2020 15:10-0400 Systolic blood pressure 138 mm[Hg] Yoni Muller Work Phone: [facility] Work Phone: 1945 23:00-0500 >na< Quentin Fitzpatrick Dept. of Eleazar matology Encounters Encounter Date Encounter Type Care Provider Facility Start: 02-19-2024 ambulatory Yoni Furlong Facility :[facility] Start: 01-22-2024 Registered Recurring DO Yoni Furlong Work Phone: [facility] [place] [facility] Work Phone: Start: 01-22-2024 End: 01-22-2024 ambulatory DO Yoni Furlong Work Phone: [facility] Work Phone: Start: 01-22-2024 End: 01-22-2024 Patient encounter procedure DO Yoni Furlong Work Phone: [facility] Work Phone: Start: 09-30-2023 End: 09-30-2023 Office outpatient visit 15 minutes 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 [employer] TECHNICIAN[employer] Work Phone: [facility] [...] hypertension with chronic kidney disease, stage III ([facility]) (Primary Dx); Hyperlipidemia, unspecified hyperlipidemia type; Malignant melanoma of left lower leg ([facility]); Class 2 severe obesity due to excess calories with serious comorbidity and body mass index (BMI) of 35.0 to 35.9 in adult Start: 09-08-2023 Refill Yoni hyatt DO Work Phone: [facility] Comment on above: Essential (primary) hypertension Start: 08-07-2023 Registered Recurring DO Yoni Furlong Work Phone: [facility] Work Phone: Start: 08-07-2023 End: 08-07-2023 Patient encounter procedure DO Yoni Furlong Work Phone: [facility] Work Phone: Start: 08-07-2023 End: 08-07-2023 ambulatory DO Yoni Furlong Work Phone: [facility] Work Phone: Start: 03-06-2023 End: 03-06-2023 ambulatory DO Yoni Furlong Work Phone: [facility] Work Phone: Start: 03-06-2023 End: 03-06-2023 Registered Recurring DO Yoni Furlong Work Phone: [facility] Work Phone: Start: 01-27-2023 Office outpatient vi sit 25 minutes Kimber Lacy [facility] Start: 01-27-2023 End: 01-27-2023 ambulatory DO Yoni Furlong Work Phone: [facility] Work Phone: Start: 01-27-2023 End: 01-27-2023 Registered Recurring DO Yoni Furlong Work Phone: [facility] Work Phone: Start: 12-30-2022 End: 12-30-2022 ambulatory DO Yoni Furlong Work Phone: [facility] Work Phone: Start: 12-30-2022 End: 12-30-2022 Registered Recurring DO Yoni Furlong Work Phone: [facility] Work Phone: Start: 12-30-2022 End: 12-30-2022 ambulatory DO Yoni Furlong Work Phone: [facility] Work Phone: Start: 12-30-2022 End: 12-30-2022 Registered Recurring DO Yoni Furlong Work Phone: [facility] Work Phone: Start: 10-03-2022 End: 10-04-2022 ambulatory SLY BENSON Facility: Start: 09-08-2022 End: 09-08-2022 ambulatory DO Yoni Furlong Work Phone: [facility] Work Phone: Start: 09-08-2022 End: 09-08-2022 Registered Recurring DO Yoni Furlong Work Phone: [facility] Work Phone: Start: 09-05-2022 End: 09-06-[address] YONI MULLER Facility:[facility]1 Start: 08-11-2022 End: 08-11-2022 ambulatory DO Yoni Furlong Work Phone: [facility] Work Phone: Start: 08-11-2022 End: 08-11-2022 Registered Recurring DO Yoni Furlong [facility] Work Phone: Start: 07-21-2022 End: 07-22-2022 ambulatory SLY BENSON Facility:[facility] Start: 06-23-2022 End: 06-23-2022 ambulatory DO Yoni Furlong Work Phone: [facility] Work Phone: Start: 06-23-2022 End: 06-23-2022 Registered Recurring DO Yoni Furlong [facility] [place] Start: 06-23-2022 End: 06-23-2022 ambulatory DO Yoni Furlong Work Phone: [facility] Work Phone: Start: 06-23-2022 End: 06-23-2022 Registered Recurring DO Yoni Furlong [facility] [place] Start: 06-20-2022 End: 06-21-[address] YONI MULLER Facility:[facility] Start: 06-02-2022 End: 06-02-2022 ambulatory DO Yoni Furlong Work Phone: [facility] Work Phone: Start: 06-02-2022 End: 06-02-2022 Registered Recurring DO Yoni Furlong [facility] [place] Start: 05-30-2022 End: 05-31-2022 ambulatory SLY BENSON Facility:[facility] Start: 05-13-2022 End: 05-14-2022 ambulatory SLY BENSON Facility:[facility] Start: 05-10-2022 End: 05-11-2022 ambulatory SLY J KELLEY Facility:[facility] Start: 05-02-2022 End: 05-02-2022 ambulatory DO Yoni Furlong Work Phone: [facility] Work Phone: Start: 05-02-2022 End: 05-02-2022 Registered Recurring DO Yoni Furlong [facility] Phone[facility] Start: 04-28-2022 End: 04-28-2022 Admission to same day surgery center DO Yoni Furlong Work Phone: [facility] [place] Start: 04-28-2022 End: 04-28-2022 ambulatory DO Yoni Furlong Work Phone: [facility] Work Phone: Start: 04-21-2022 End: 04-21-2022 ambulatory DO Yoni Furlong Work Phone: [facility] Work Phone: Start: 04-21-2022 End: 04-21-2022 Registered Recurring DO Yoni Furlong [facility] Phone: [facility] Start: 03-26-2022 End: 03-26-2022 Patient encounter procedure DO Yoni Furlong Work Phone: [facility] [place] Start: 10-25-2021 End: 10-25-2021 Registered Recurring MD Alex Trammell Work Phone: [facility] Start: 10-10-2021 End: 10-10-2021 Patient encounter procedure DO Sly Benson II Work Phone: [facility] [place] Start: 10-07-2021 End: 10-07-2021 Registered Recurring DO Sly Benson II Work Phone: [facility] Start: 10-07-2021 Registered Recurring DO Clinton Benson II Work Phone: [facility] Start: 09-24-2021 AUDIT Yoni hyatt Work Phone: [facility] 4607 Work Phone: Start: 09-23-2021 Chart Update Yoni hyatt Work Phone: [facility] Work Phone: Start: 09-17-2021 Office outpatient ne w 30 minutes Yoni Muller Work Phone: [facility] 7859 Work Phone: Start: 09-17-2021 Office outpatient vi sit 15 minutes Yoni Muller Work Phone: UE-Piihagp-Bjbwk Main Work Phone: Start: 01-22-2021 Office outpatient vi sit 15 minutes Yoni Muller Work Phone: EQ-Iewurhc-Fofeccgr 150 Work Phone: Start: 01-12-2021 AUDIT Yoni hyatt Work Phone: [facility]hdbupo[facility] Work Phone: Start: 12-25-2020 Office outpatient vi sit 25 minutes Yoni Muller Work Phone: SU-Qsbbcmp-Orswysga 150 Work Phone: Start: 12-25-2020 Patient encounter procedure Yoni Muller Work Phone: [facility] Work Phone: Start: 12-17-2020 AUDIT Yoni Holloway ng Work Phone: [facility] Work Phone: Start: 12-04-2020 FUV, Provider: Alex Trammell, Status: Pen, Time: 3:00 PM Yoni Muller Work Phone: [facility] Work Phone: Start: 12-04-2020 Patient encounter procedure Yoni Muller Work Phone: [facility] Work Phone: Start: 11-27-2020 Postop follow up vis it related to original px Yoni Muller Work Phone: [facility] Work Phone: Start: 11-27-2020 Quentin Fitzpatrick Dep t. of Dermatology Start: 11-13-2020 Quentin Fitzpatrick Dep t. of Dermatology Start: 10-23-2020 Baptism Clzbymarian Dep t. 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[employer] Work Phone: Start: 09-15-2023 Adult depression screening assessment Yoni Prolong DO Work Phone: Start: 08-06-2023 Computed tomography of abdomen and pelvis with contrast DO Yoni Furlong Work Phone: Start: 08-06-2023 CT of thorax with contrast DO Yoni Furlong Work Phone: Start: 03-05-2023 Computed tomography of abdomen and pelvis with contrast DO Yoni Furlong Work Phone: Start: 03-05-2023 CT of thorax with contrast DO [employer] Work Phone: Start: 02-06-2023 Adult depression screening assessment Yoni [employer] DO Work Phone: Start: 10-31-2022 Computed tomography of abdomen and pelvis with contrast DO [employer] Work Phone: Start: 10-31-2022 CT of thorax with contrast DO Yoni [employer] Work Phone: Start: 08-08-2022 Computed tomography of abdomen and pelvis with contrast DO Yoni [employer] Work Phone: Start: 08-08-2022 CT of thorax with contrast DO [employer]oni[employer] Work Phone: Start: 04-28-2022 Aspiration DO [employer] Work Phone: Start: 03-26-2022 Computed tomography of abdomen and pelvis with contrast DO [employer]elong Work Phone: Start: 03-26-2022 CT of thorax with contrast DO Yoni [employer] Work Phone: Start: 10-10-2021 Computed tomography of [...] Adult BMI Screening Adult BMI Screen ing [facility] Start: 09-29-2024 Depression Screening Depression Scre ening [facility] Start: 09-29-2024 Fall Risk Screening Fall Risk Screen ing [facility] Start: 09-29-2024 Tobacco Screening Tobacco Screening [facility] Start: 09-14-2024 Adult BMI Screening Adult BMI Screen ing [facility] Start: 09-14-2024 Depression Screening Depression Scre ening [facility] Start: 09-14-2024 Fall Risk Screening Fall Risk Screen ing [facility] Start: 09-14-2024 Tobacco Screening Tobacco Screening [facility] Start: 03-17-2024 End: 03-17-2024 Patient encounter procedure 03/17/2024 4:15 PM EDT [facility] [address] [place] [address] Yoni Muller, DO [address], [facility] [place] [address] [facility] Start: 02-07-2024 Administration of va ricella zoster vaccine Zoster (Shingles) Vaccine (1 of 2) [facility] Comment on above: Postponed from 10/02 (Patient Refused) Start: 02-07-2024 Adult BMI Screening Adult BMI Screen ing [facility] Start: 02-07-2024 Depression Screening Depression Scre ening [facility] Start: 02-07-2024 DTaP,Tdap and Td Vac cines (1 - Tdap) DTaP,Tdap and Td Vaccines (1 - Tdap) [facility] Comment on above: Postponed from 10/02 (Patient Refused) Start: 02-07-2024 Tobacco Screening Tobacco Screening [facility] Start: 01-22-2024 [facility] Start: 01-11-2024 Medicare Annual Well ness Visit Medicare Annual Wellness Visit [facility] Comment on above: Postponed from 10/02 (Patient Refused) Start: 12-25-2023 [facility] Start: 12-25-2023 [facility] Start: 11-27-2023 [facility] Start: 10-30-2023 [facility] Start: 10-30-2023 [facility] Start: 10-11-2023 Influenza vaccination Influenza Vacc ine [facility] Comment on above: Postponed from 03/13 (Patient Refused) Start: 2023 [facility] Start: 2023 [facility] Start: 09-15-2023 End: 09-15-2023 Patient encounter procedure 09/15/2023 4:00 PM EST Office Visit [facility] [address] [place] [address] Yoni Muller DO [address], [place] [place] [address] [facility] Start: 09-04-2023 [facility] Start: 08-07-2023 [facility] Start: 08-07-2023 [facility] Start: 08-06-2023 End: 08-07-2023 [facility] Start: 08-06-2023 Adrenocorticotropic hormone measurement [facility] Start: 07-14-2023 [facility] Start: 07-14-2023 [facility] Start: 06-17-2023 Fall Risk Screening Fall Risk Screen ing [facility] Start: 06-16-2023 [facility] Start: 05-19-2023 [facility] Start: 04-21-2023 [facility] Start: 03-24-2023 [facility] Start: 03-13-2023 COVID-19 Vaccine ( season) COVID-19 Vaccine ( season) [facility] Start: 03-13-2023 Influenza vaccination Influenza Vacc ine [facility] Start: 02-24-2023 [facility] Start: 01-27-2023 [facility] Start: 01-27-2023 [facility] Start: 12-30-2022 Adrenocorticotropic hormone measurement [facility] Start: 12-30-2022 [facility] Start: 12-30-2022 [facility] Start: 12-25-2022 [facility] Start: 12-01-2022 [facility] Start: 11-03-2022 [facility] Start: 10-06-2022 [facility] Start: 09-08-2022 [facility] Start: 09-08-2022 [facility] Start: 08-11-2022 [facility] Start: 07-23-2022 [facility] Start: 06-23-2022 [facility] Start: 06-23-2022 Adrenocorticotropic hormone measurement [facility] Start: 06-23-2022 [facility] Start: 06-02-2022 [facility] Start: 05-12-2022 End: 05-12-2022 [facility] Start: 05-12-2022 [facility] Start: 04-28-2022 [facility] Start: 04-28-2022 [facility] Start: 04-28-2022 [facility] Start: 02-19-2021 FUV, Provider: Alex Trammell, Status: Pen, Time: 3:00 PM FUV, Provider: Alex Trammell, Status: Pen, Time: 3:00 PM EC-Pxlctss-Adbvofzv 150 Work Phone: Start: 01-22-2021 FUV, Provider: Alex Trammell, Status: Pen, Time: 3:00 PM FUV, Provider: Alex Trammell, Status: Pen, Time: 3:00 PM XP-Nogkiun-Xubsgmfl 150 Work Phone: Start: 12-25-2020 FUV, Provider: Alex Trammell, Status: Pen, Time: 3:00 PM FUV, Provider: Alex Trammell, Status: Pen, Time: 3:00 PM TU[facility]wzsqui[facility]fw[facility] Work Phone: Start: 1963 Adult BMI Follow Up Plan [facility] Adrenocorticotropic hormone measurement [facility] Adrenocorticotropic hormone measurement [facility] Work Phone: Adrenocorticotropic hormone measurement [facility] Adrenocorticotropic hormone measurement [facility] Adrenocorticotropic hormone measurement [facility] Adrenocorticotropic hormone measurement [facility] Adrenocorticotropic hormone measurement [facility] Adrenocorticotropic hormone measurement [facility] Adrenocorticotropic hormone measurement [facility] Adrenocorticotropic hormone measurement [facility] Adrenocorticotropic hormone measurement [facility] Basophils [#/volume] in Blood by Automated count [facility] Basophils/100 leukoc ytes in Blood by Automated count [facility] Blood chemistry [place] Blood chemistry [place] Comprehensive metabo lic 1999 panel - Serum or Plasma [facility] Comprehensive metabo lic 1999 panel - Serum or Plasma [facility] Comprehensive metabo lic 1999 panel - Serum or Plasma [facility] Comprehensive metabo lic 1999 panel - Serum or Plasma [facility] Comprehensive metabo lic 1999 panel - Serum or Plasma [facility] Comprehensive metabo lic 1999 panel - Serum or Plasma [facility] Comprehensive metabo lic 1999 panel - Serum or Plasma [facility] Comprehensive metabo lic 1999 panel - Serum or Plasma [facility] Comprehensive metabo lic 1999 panel - Serum or Plasma [facility] Comprehensive metabo lic 1999 panel - Serum or Plasma [facility] Comprehensive metabo lic 1999 panel - Serum or Plasma [facility] Computed tomography for radiotherapy planning [facility] Cortisol [Mass/volum e] in Serum or Plasma [facility] Cortisol [Mass/volum e] in Serum or Plasma [facility] Cortisol [Mass/volum e] in Serum or Plasma [facility] Work Phone: Cortisol [Mass/volum e] in Serum or Plasma [facility] Cortisol [Mass/volum e] in Serum or Plasma [facility] CT Abdomen and Pelvi s W contrast IV [facility] CT Abdomen and Pelvi s W contrast IV [facility] CT Abdomen and Pelvi s W contrast IV [facility] CT Abdomen and Pelvi s W contrast IV [facility] CT Abdomen and Pelvi s W contrast IV [facility] CT Chest W contrast IV [facility] CT Chest W contrast IV [facility] CT Chest W contrast IV [facility] CT Chest W contrast IV [facility] CT Chest W contrast IV [facility] Eosinophils/100 leuk ocytes in Blood by Automated count [facility] Erythrocyte distribu tion width [Ratio] by Automated count [facility] Erythrocyte sediment ation rate by Photometric method [facility] Erythrocytes [#/volu me] in Blood [facility] Hematocrit [Volume F raction] of Blood [facility] Hemoglobin [Mass/vol ume] in Blood [facility] Hepatic function panel [facility] Hepatic function panel [facility] Homogenous nuclear A b pattern [Titer] in Serum [facility] Work Phone: Lactate dehydrogenas e [Enzymatic activity/volume] in Unspecified specimen [facility] Lactate dehydrogenas e [Enzymatic activity/volume] in Unspecified specimen [facility] Lactate dehydrogenas e [Enzymatic activity/volume] in Unspecified specimen [facility] Lactate dehydrogenas e [Enzymatic activity/volume] in Unspecified specimen [facility] Lactate dehydrogenas e [Enzymatic activity/volume] in Unspecified specimen [facility] Leukocytes [#/volume ] corrected for nucleated erythrocytes in Blood by Automated coun [facility] Leukocytes [#/volume ] in Blood [facility] Lipase measurement [facility] Lipase measurement [facility] Lipase measurement [facility] Lymphocytes [#/volum e] in Blood by Automated count [facility] Lymphocytes/100 leuk ocytes in Blood by Automated count [facility] MCH [Entitic mass] b y Automated count [facility] MCHC [Mass/volume] b y Automated count [facility] MCV [Entitic volume] by Automated count [facility] Monocytes [#/volume] in Blood by Automated count [facility] Monocytes/100 leukoc ytes in Blood by Automated count [facility] Neutrophils [#/volum e] in Blood by Automated count [facility] Neutrophils/100 leuk ocytes in Blood by Automated count [facility] Nuclear Ab [Titer] in Serum [facility] Work Phone: Nucleated erythrocyt es [Presence] in Blood by Automated count [facility] Patient Education [facility] Work Phone: Platelet mean volume [Entitic volume] in Blood by Automated count [facility] Platelets [#/volume] in Blood [facility] Thyrotropin [Units/v olume] in Serum or Plasma [facility] Thyrotropin [Units/v olume] in Serum or Plasma [facility] Thyrotropin [Units/v olume] in Serum or Plasma [facility] Thyrotropin [Units/v olume] in Serum or Plasma [facility] Thyrotropin [Units/v olume] in Serum or Plasma [facility] Thyrotropin [Units/v olume] in Serum or Plasma [facility] Thyrotropin [Units/v olume] in Serum or Plasma [facility] Thyroxine (T4) free [Mass/volume] in Serum or Plasma [facility] Thyroxine (T4) free [Mass/volume] in Serum or Plasma [facility] Work Phone: Thyroxine (T4) free [Mass/volume] in Serum or Plasma [facility] Thyroxine (T4) free [Mass/volume] in Serum or Plasma [facility] Thyroxine (T4) free [Mass/volume] in Serum or Plasma [facility] Thyroxine (T4) free [Mass/volume] in Serum or Plasma [facility] Ultrasonic guidance for needle biopsy [facility] Immunizations Immunization Date Immunization Notes Care Provider Cindi babcock 1945 pneumococcal conjuga te vaccine, 7 valent [facility] Payers Date Payer Category Payer Self-pay [id number] 2022 Medicare [id number] 1959 Private Health Insurance [id number] 1945 Unknown [id number] 1945 Unknown [id number] [id number] 1945 Unknown [id number] [id number] 1946 Unknown [id number] [id number] 1946 Unknown [id number] [id number] 1946 Unknown [id number] [id number] 1946 Unknown [id number] [id number] 1945 Unknown [id number] [id number] Unknown Unknown HCAP/HFA/FAP Active [id number] Unknown [id number] Unknown [id number] [id number] Social History Date Type Detail Facility Start: 10-23-2020 Dept. of Dermatology Start: 1945 Sex Assigned At Female [facility] Start: 10-07-2021 End: 03-06-2023 Tobacco smoking status NHIS Never smoked tobacco (finding) [facility] Start: 06-17-2022 End: 09-30-2023 Sex Assigned At [employer] [facility] Start: 06-17-2022 Tobacco use and exposure Smokeless tobacco non-user [facility] Start: 02-06-2023 End: 09-30-2023 Alcohol intake Current drinker of alcohol (finding) [facility] Start: 06-17-2022 End: 09-30-2023 History of Social function [facility] Do you belong to any clubs or organizations such as presybeterian groups, unions, fraternal or athletic groups, or school groups? Yes [facility] Are you now , , , , never or living with a partner? [facility] How often to you hav e a drink containing alcohol? Monthly or less [facility] How many standard dr inks containing alcohol do you have on a typical day? 1 or 2 [facility] How often do you hav e 6 or more drinks on 1 occasion? Never [facility] How hard is it for y ou to pay for the very basics like food, housing, medical care, and heating Not hard at all [facility] Do you feel stress - tense, restless, nervous, or anxious, or unable to sleep at night because your mind is troubled all the time - these days [OSQ] Only a little [facility] Start: 06-17-2022 Alcohol Comment rarely [facility] Start: 1945 [facility]igned [facility] Has the [employer], [employer], [employer], or water company threatened to shut off services in your home in past 12Mo No [facility] Goals Date Patient Goal Desired Activity /State Clinical Notes 12-04-2012 to 09-30-2023 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, [employer] - 09/30/2023 4:00 PM Madonna Muller DO - 09/15/2023 4:00 PM EST Note Date & Type Note Facility 09-30-2023 History of Present illness Narrative [facility] [address] Patient: Theresa Luu Date of : 1945 [...] next 48 hrs so she went to [facility] ER on 09/23/23. ER placed a [...] list. Past Medical History: Diagnosis Date Cancer ([facility]) Hyperlipidemia Hypertension Obesity Past Surgical History: Procedure [...] APRN-CNP 10/04/23 1239 documented in this encounter [employer] 09-15-2023 History of Present illness Narrative Subjective [...] hypertension with chronic kidney disease, stage III ([facility]) - Basic Metabolic Panel; Future - CBC; Future - Magnesium; Future - Parathyroid Hormone, intact; Future - Phosphorus; Future - Vitamin D 25 hydroxy; Future - Uric acid; Future Her blood pressure is essentially at goal. Her stage 3 chronic kidney disease was discussed. She is using Advil dshe-vze-gyukzkg and I recommended she use Tylenol instead to help protect her kidneys. She was given a written note with these instructions. Check chronic kidney disease labs. Hyperlipidemia, unspecified hyperlipidemia type - Lipid panel; Future Check lipids. Malignant melanoma of left lower leg ([facility]) Follow up with specialists as [...] and high cholesterol. documented in this encounter [employer] 02-13-2023 Progress note Note Date/Time January 27, 2023 3:58pm [facility] [address] [place] [address] Progress Note Signed Patient: Theresa Luu MR#: [id number] : 1945 Acct:[id number] Age/Sex: 77 / F Adm Date: 3 Loc: XT [facility]: [facility]: Sly Benson II DO Copies to: ~ Date of Service: 01/27/2023 Subjective History of Present Illness HPI: Madison is seen during immunotherapy today and we continue our discussion of goals of care/advance care planning. She has reviewed the making choices booklet and is planning to meet with an insurance defense attorney to complete financial POA and business [...] signed by DO Efren Burris> 02/13/23 1509 [facility] Work Phone: 1(858) 618-205807-18-2023 Evaluation note* Encounter Date Diagnosis Assessment Notes [...] of the order given to the patient. [employer] [facility] 06-20-2023 Progress note Author Senia Montez [facility] December 30, 2022 11:06am Note Date/Time December 30, 2022 8:35 am [facility] [place] [id number] Hem/Onc Follow Up Note - OP Signed Patient: Theresa Luu MR#: [id number] : 1945 Acct:[id number] Age/Sex: 77 / F Type: REG RCR Copies to: DO Alex Acuña MD Sly J Adamowicz, II, DO~ Date of Service: 12/30/2022 [...] leg melanoma removed by Dr. Trammell at [facility] in November 162020 with sentinel [...] and has CT scans scheduled for at [facility]. She is doing well, no major [...] for coordination of care (as documented) and xxzm-mq-iret counseling of patient and/or family. [facility] - Medical History Medical History: Medical History [...] <Electronically signed by ANTOINETTE Montez> 12/30/22 1106 [facility] Work Phone: 1([phone]) 606-575604-24-2023 Progress note Author Sly Benson [facility] November 03, 2022 10:27am Note Date/Time November 03, 2022 10: 22am [facility] [place] [address] Hem/Onc Follow Up Note - OP Signed Patient: Theresa Luu MR#: [id number] : 1945 Acct:[id number] Age/Sex: 77 / F Type: REG RCR [...] Up Instructions: cont monthly nivolumab. f/u with [employer] in 2 months. cbc, cmp, tsh monthly. [...] leg melanoma removed by Dr. Trammell at [facility] in November 162020 with sentinel [...] and has CT scans scheduled for at [facility]. She is doing well, no major [...] for coordination of care (as documented) and aqoa-jh-toai counseling of patient and/or family. [facility] - Medical History Medical History: Medical History [...] % (Auto) 59.6, Lymph % (Auto) 26.5, [place] % (Auto) 11.2, Eos % (Auto) 1.8, Baso % (Auto) 0.9, Nucleat RBC Rel Count 0.0, Neut # (Auto) 4.0, Lymph # (Auto) 1.8, [place] # (Auto) 0.8, Eos # (Auto) 0.1, [...] <Electronically signed by Sly Benson II DO> 11/03/22 1027 [facility] Work Phone: 1(750) 815-297003-27-2023 Progress note Author Zenobia Parker [facility] October 06, 2022 11:42am Note Date/Time October 06, 2022 11: 28am [facility] [place] [address] Hem/Onc Follow Up Note - OP Signed Patient: Theresa Luu MR#: [id number] : 1945 Acct:[id number] Age/Sex: 77 / F Type: REG RCR [...] leg melanoma removed by Dr. Trammell at [facility] in November 162020 with sentinel [...] and has CT scans scheduled for at [facility]. She is doing well, no major [...] 10 point review of systems is negative. [facility] - Medical History Medical History: Medical History [...] for coordination of care (as documented) and hrss-mw-vpoa counseling of patient and/or family. Dictated By: Zenobia Parker APRN DD/ 112 Signed By: <Electronically signed by ANTOINETTE Parker> 10/06/22 1142 [facility] Work Phone: 1(410) 731-157403-20-2023 Progress note Author Bebeto Pandya [facility] September 29, 2022 1:11pm Note Date/Time September 29, 2022 9:4 5am [facility] [place] [address] Rad Onc Follow Up Note - OP Signed Patient: Theresa Luu MR#: [id number] : 1945 Acct:[id number] Age/Sex: 76 / F Type: REG RCR [...] a left lower leg melanoma removed at [facility] in November 162020 with sentinel [...] get her first maintenance dose of the Eureka on August 11, [address]. [address] [...] signed by Bebeto Pandya MD> 09/29/22 1311 [facility] Work Phone: 1(111) 580-775502-27-2023 Progress note Author Sly Benson [facility] September 08, 2022 10:18am Note Date/Time September 08, 2022 10:08am [facility] [place] [address] Hem/Onc Follow Up Note - OP Signed Patient: Theresa Luu MR#: [id number] : 1945 Acct:[id number] Age/Sex: 76 / F Type: REG RCR [...] leg melanoma removed by Dr. Trammell at [facility] in November 162020 with sentinel [...] and has CT scans scheduled for at [facility]. She is doing well, no major [...] for coordination of care (as documented) and smwh-ck-vdgl counseling of patient and/or family. [facility] - Medical History Medical History: Medical History [...] by Sly Benson II, DO> 09/08/22 1018 [facility] Work Phone: [phone] Consult note Author Bebeto Pandya [facility] August 12, 2022 1:39pm Note Date/Time August 12, 2022 8 :51am [facility] [place] [address] Rad Onc Consult Note - OP Signed Patient: Theresa Luu MR#: [id number] : 1945 Acct:[id number] Age/Sex: 76 / F Type: REG RCR Copies to: DO Alex Acuña MD, II, DO~ Assessment & Plan (1) Inguinal adenopathy Plan: CT simulation-plan for palliative radiation to the left inguinal frkirepskqeeudr49 Luis in 5 fractions delivered every other [...] a left lower leg melanoma removed at [facility] in November 162020 with sentinel [...] get her first maintenance dose of the Eureka on August 11, 2022. Her repeat CT [...] ibuprofen. She denies any other pelvic complaints. [facility] - Medical History Medical History: Medical History [...] 10:28 Pulse 82 08/11/22 10:28 Resp 20 01/30/23 10:28 BP 132/68 08/11/22 10:28 Pulse Ox [...] <Electronically signed by Bebeto Pandya MD> 08/12/22 1337 [facility] Work Phone: 1([phone]) 433-898301-30-2023 Progress note Author Sly Benson [facility] August 11, 2022 11:03am Note Date/Time August 11, 2022 1 0:48am [facility] [place] [address] Hem/Onc Follow Up Note - OP Signed Patient: Theresa Luu MR#: [id number] : 1945 Acct:[id number] Age/Sex: 76 / F Type: REG RCR [...] leg melanoma removed by Dr. Trammell at [facility] in November 162020 with sentinel [...] and has CT scans scheduled for at [facility]. She is doing well, no major [...] maybe 3 days. worse after hot showers. [employer] really works for this. 08/11/22 She is [...] for coordination of care (as documented) and khxv-px-ibzl counseling of patient and/or family. [facility] - Medical History Medical History: Medical History [...] % (Auto) 58.6, Lymph % (Auto) 29.6, [place] % (Auto) 9.0, Eos % (Auto) 2.1, Baso % (Auto) 0.7, Nucleat RBC Rel Count 0.1, Neut # (Auto) 4.4, Lymph # (Auto) 2.2, [place] # (Auto) 0.7, Eos # (Auto) 0.2, [...] by Sly Benson II, DO> 08/11/22 1103 [facility] Work Phone: 1(170) 573-393712-12-2022 Progress note Author Sly Benson [facility] June 23, 2022 11:22am Note Date/Time June 23, 2022 11:18[facility] at [address] [address] Hem/Onc Follow Up Note - OP Signed Patient: Theresa Luu MR#: [id number] : 1945 Acct:[id number] Age/Sex: 76 / F Type: REG RCR [...] leg melanoma removed by Dr. Trammell at [facility] in November 162020 with sentinel [...] and has CT scans scheduled for at [facility]. She is doing well, no major [...] for coordination of care (as documented) and nnid-gp-dwdp counseling of patient and/or family. [facility] - Medical History Medical History: Medical History [...] by Sly Benson II, DO> 06/23/22 1122 [facility] Work Phone: 1([phone] 531-293712-12-2022 Progress note Author Sly Benson [facility] June 23, 2022 11:22am Note Date/Time June 23, 2022 11:18am [facility] [place] [address] Hem/Onc Follow Up Note - OP Signed Patient: Theresa Luu MR#: [id number] : 1945 Acct:[id number] Age/Sex: 76 / F Type: REG RCR [...] female referred for melanoma primary patient of Yonijanee Muller, pastmedical history includes essential hypertension, basal cell carcinoma on her upper back in September 2020hyperlipidemia, malignant tumor of the breast in September 1996 on the left side she had a mastectomy with no chemotherapy or radiation. Outpatient medications include hydrochlorothiazide and simvastatin. She initially had a left lower leg melanoma removed by Dr. Trammell at [facility] in November 162020 with sentinel [...] and has CT scans scheduled for at [facility]. She is doing well, no major [...] for coordination of care (as documented) and yddq-dc-wpdn counseling of patient and/or family. [facility] - Medical History Medical History: Medical History (Last Reviewed 04/28/22 @ 08:09 by Bonnie Mistry, RN) Basal cell carcinoma left mid upper [...] by Sly Benson II, DO> 06/23/22 1122 [facility] Work Phone: [phone] 436-438811-21-2022 Progress note Author Zenobia Parker [facility] June 02, 2022 11:05am Note Date/Time June 02, 2022 11:01am [facility] [place] [address] Hem/Onc Follow Up Note - OP Signed Patient: Theresa Luu MR#: [id number] : 1945 Acct:[id number] Age/Sex: 76 / F Type: REG RCR Copies to: Yoni DO Aelx Brown MD~ Subjective Date/Time of Service: Date [...] leg melanoma removed by Dr. Trammell at [facility] in November 162020 with sentinel [...] and has CT scans scheduled for at [facility]. She is doing well, no major [...] 10 point review of systems is negative. [facility] - Medical History Medical History: Medical History [...] for coordination of care (as documented) and yalt-ng-bxsr counseling of patient and/or family. Dictated By: Zenobia Parker APRN DD/ 1058 Signed By: <Electronically signed by ANTOINETTE Parker> 06/02/22 1105 [facility] Work Phone: 1(170) 298-881911-21-2022 Progress note Author Zenobia Parker [facility] June 02, 2022 11:05am Note Date/Time June 02, 2022 11:01am [facility] [place] [id number] Hem/Onc Follow Up Note - OP Signed Patient: Theresa Luu MR#: [id number] : 1945 Acct:[id number] Age/Sex: 76 / F Type: REG RCR [...] leg melanoma removed by Dr. Trammell at [facility] in November 162020 with sentinel [...] and has CT scans scheduled for at [facility]. She is doing well, no major [...] 10 point review of systems is negative. [facility] - Medical History Medical History: Medical History [...] for coordination of care (as documented) and zxeh-co-mzfn counseling of patient and/or family. Dictated By: Zenobia Parker APRN DD/ 1058 Signed By: <Electronically signed by ANTOINETTE Parker> 06/02/22 1105 [facility] Work Phone: [phone]) 171-493510-21-2022 Progress note Author Sly Benson [facility] May 02, 2022 4:01pm Note Date/Time May 02, 2022 3 :52pm [facility] [place] [address] Hem/Onc Follow Up Note - OP Signed Patient: Theresa Luu MR#: [id number] : 1945 Acct:[id number] Age/Sex: 76 / F Type: REG RCR [...] leg melanoma removed by Dr. Trammell at [facility] in November 162020 with sentinel [...] and has CT scans scheduled for at [facility]. She is doing well, no major [...] for coordination of care (as documented) and rfxf-zv-caik counseling of patient and/or family. [facility] - Medical History Medical History: Medical History [...] by Sly Benson II, DO> 05/02/22 1601 [facility] Work Phone: 1(181) 350-445010-21-2022 Progress note Author Sly Benson [facility] May 02, 2022 4:01pm Note Date/Time May 02, 2022 3 :52pm [facility] [place] [address] Hem/Onc Follow Up Note - OP Signed Patient: Theresa Luu MR#: [id number] : 1945 Acct:[id number] Age/Sex: 76 / F Type: REG RCR [...] leg melanoma removed by Dr. Trammell at [facility] in November 162020 with sentinel [...] and has CT scans scheduled for at [facility]. She is doing well, no major [...] for coordination of care (as documented) and ogkb-me-uspc counseling of patient and/or family. [facility] - Medical History Medical History: Medical History [...] signed by Sly Benson II, DO> 05/02/22 1604 [facility] Work Phone: [phone] 885-925610-15-2022 Progress note Author Sly Benson [facility] April 26, 2022 11:51am Note Date/Time April 21, 2022 9 :31am [facility] [place] [address] Hem/Onc Follow Up Note - OP Signed Patient: Theresa Luu MR#: [id number] : 1945 Acct:[id number] Age/Sex: 76 / F Type: REG RCR [...] leg melanoma removed by Dr. Trammell at [facility] in November 162020 with sentinel [...] and has CT scans scheduled for at [facility]. She is doing well, no major [...] for coordination of care (as documented) and hexs-cd-bzgn counseling of patient and/or family. [facility] - Medical History Medical History: Medical History [...] by Sly Benson II, DO> 04/26/22 1151 [facility] Work Phone: [phone] 538-304810-15-2022 Progress note Author Sly Benson [facility] April 26, 2022 11:51am Note Date/Time April 21, 2022 9 :31am [facility] [place] [address] Hem/Onc Follow Up Note - OP Signed Patient: Theresa Luu MR#: [id number] : 1945 Acct:[id number] Age/Sex: 76 / F Type: REG RCR [...] leg melanoma removed by Dr. Trammell at [facility] in November 162020 with sentinel [...] and has CT scans scheduled for at [facility]. She is doing well, no major [...] for coordination of care (as documented) and ghew-rc-wxuk counseling of patient and/or family. [facility] - Medical History Medical History: Medical History [...] by Sly Benson II, DO> 04/26/22 1151 [facility] Work Phone: [phone] 145-281204-25-2022 Progress note Author Sly Benson [facility] November 04, 2021 7:49pm Note Date/Time October 25, 2021 9:5 8am [facility] [place] [address] Hem/Onc Follow Up Note - OP Signed Patient: Theresa Luu MR#: [id number] : 1945 Acct:[id number] Age/Sex: 76 / F Type: REG RCR [...] leg melanoma removed by Dr. Trammell at [facility] in November 162020 with sentinel [...] and has CT scans scheduled for at [facility]. She is doing well, no major [...] for coordination of care (as documented) and fbrd-zv-uugw counseling of patient and/or family. [facility] - Medical History Medical History: Medical History [...] signed by Sly Benson II, DO> 11/04/211948 [facility] Work Phone: 1([phone] 149-513404-25-2022 Progress note Author Sly Benson [facility] November 04, 2021 7:49pm Note Date/Time October 25, 2021 9:5 8am [facility] [place] [address] Hem/Onc Follow Up Note - OP Signed Patient: Theresa Luu MR#: [id number] : 1945 Acct:[id number] Age/Sex: 76 / F Type: REG RCR [...] for a 3 week follow up for [facility] to review CTscans done 10/10/2021. There is [...] leg melanoma removed by Dr. Trammell at [facility] in November 162020 with sentinel node biopsy and 2+ nodes. Dr. Trammlel notes that the margin was clear, she [...] and has CT scans scheduled for at [facility]. She is doing well, no major [...] for coordination of care (as documented) and hbfv-tj-irij counseling of patient and/or family. [facility] - Medical History Medical History: Medical History [...] signed by Sly Benson II, DO> 11/04/211948 [facility] Work Phone: 1([phone] 163-242103-28-2022 Progress note Author Sly Benson [facility] October 07, 2021 8:58am Note Date/Time October 07, 2021 8:2 8am [facility] [place] [address] Hem/Onc Follow Up Note - OP Signed Patient: Theresa Luu MR#: [id number] : 1945 Acct:[id number] Age/Sex: 76 / F Type: REG RCR [...] leg melanoma removed by Dr. Trammell at [facility] in November 162020 with sentinel [...] and has CT scans scheduled for at [facility]. She is doing well, no major medical [...] for coordination of care (as documented) and fddw-me-rhdj counseling of patient and/or family. [facility] - Medical History Medical History: Medical History [...] by Sly Benson II, DO> 10/07/21 08 [facility] Work Phone: 1([phone]) 477-809403-28-2022 Progress note Author Sly Benson [facility] October 07, 2021 8:58am Note Date/Time October 07, 2021 8:2 8am [facility] at [address] [address] Hem/Onc Follow Up Note - OP Signed Patient: Theresa Luu MR#: [id number] : 1945 Acct:[id number] Age/Sex: 76 / F Type: REG RCR [...] leg melanoma removed by Dr. Trammell at [facility] in November 162020 with sentinel [...] and has CT scans scheduled for at [facility]. She is doing well, no major [...] for coordination of care (as documented) and ynka-zx-ajni counseling of patient and/or family. [facility] - Medical History Medical History: Medical History [...] by Sly Benson II, DO> 10/07/21 0858 [facility] Work Phone: [phone] NotePROCEDURE DETAILS Preoperative Diagnosis: Melanoma of lower limb, C43.70 Postoperative Diagnosis: left lower leg me\lanoma Surgeon: Alex Trammell Resident/Fellow/Other [employer] Slicing Machine Operator: Bambi Ray Muhammad Procedure: 1. WIDE LOCAL EXCISION MALIGNANT MELANOMA OF LEFT LOWER LEG WITH 2CM MARGINS 2. LEFT INGUINAL SENTINEL LYMPH NODE BIOPSY 3. INTEGRA GRAFT PLACEMENT (6X7CM WOUND) 4. VAC VIA PLACEMENT Anesthesia: [place], [place] Estimated Blood Loss: 20ml Findings: Exophytic [...] Aguilar MD Furlong, Dennis G, MD - [phone] [] Signatures/Attestation: Note Completion: Attending AttestationI was present for the entire procedure Electronic Signatures: Alex Trammell) (Signed 16-Nov-2020 14:13) Authored: Post-Operative Note, Chart Review, Note Completion Last Updated: 16-Nov-2020 14:13 by Alex Trammell)[facility] NoteHistory & Physical Reviewed: I have [...] the note. I personally evaluated the patient [id number] Attending Provider Inpatient Certification StatementObservation patient/other outpatient visits Electronic Signatures: Alex Trammell) (Signed 16-Nov-2020 13:12) Authored: Note Completion Co-Signer: History & Physical Reviewed, ERAS, Consent, Note Completion Ct Tinsley (Resident)) (Signed 16-Nov-2020 10:36) Authored: History & Physical Reviewed, ERAS, Consent, Note Completion Last Updated: 16-Nov-2020 13:12 by Alex Trammell)[facility] [place]16-2020 NoteAccession #: [id number] Pathologist: SURAJ MELGAR MD Date of Procedure: 10/16/2020 Date Received: 10/16/2020 Submitting Physician: ALEX TRAMMELL MD Location: [facility] Copy To/Referring/Attending: QUENTIN FITZPATRICK DO FINAL DIAGNOSIS 4 SLIDES, [facility], #[id number] [A] (BX: 09/28/2020) SKIN, LEFT DISTAL PRETIBIAL [...] REPORT A. 4 SLIDES, [facility], #[id number] [A] (BX: 09/28/2020): SPECIMEN Procedure: Biopsy, shave [...] ADDITIONAL FINDINGS Additional Findings: None ADDITIONAL TESTING BLOOD TESTER FOWL BLOCKS: Normal Block: None Tumor Block: A1, A2 Electronically Signed Out By SURAJ MELGAR MD/MICHAEL Clinical History: A) 2.2CM NODULE, NEOPLASM OF UNCERTAIN BEHAVIOR VS SQUAMOUS CELL CARCINOMA Specimens Submitted As: A: 4 SLIDES, [facility], #[id number] [A] (BX: 09/28/2020) Gross Description: Received for consultation from [facility] are four slides labeled [id number] [A] (BX: 09/28/2020) along with the corresponding pathology report. Slides received on specimen A only. Slide/Block Description 4 SLIDES, [id number] A. Keep Slides: N Slides Returned: N [facility]:Performed By: #### D #### [id number] History general Narrative - Reported* Type Description Date Medical History breast cancer (1996) Medical History HTN Medical History hyperlipidemia Medical History basal cell carcinoma upper back (September 2020) Medical History metastatic malignant melanoma [employer] Other 04-20-2014 History of Present illness Narrative* [...] in a prior mole. 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 As [...] the knee to the foot. 1+ edema. QT-Wrakvgk-Mhlks Main Work Phone: [phone] 501-878703-14-2014 History of Present illness Narrative* Ms. Luu [...] in a prior mole. 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 As [...] the knee to the foot. 1+ edema. [facility] Work Phone: [phone] 860-433407-15-2013 History of Present illness Narrative* Ms. Luu [...] in a prior mole. Thepatient moved from [place] 8 years ago and has not established [...] the knee to the foot. 1+ edema. ZY-Fruwanu-Aqsxoabu 150 Work Phone: [phone] 394-700406-16-2013 History of Present illness Narrative* Ms. Luu [...] in a prior mole. Thepatient moved from [place] 8 years ago and has not established [...] the knee to the foot. 2+ edema. MO-Fljxncp-Ustndhds 150 Work Phone: [phone] 177-551305-25-2013 History of Present illness Narrative* Ms. Luu [...] in a prior mole. Thepatient moved from [place] 8 years ago and has not established [...] the knee to the foot. 2+ edema. [facility] Work Phone: evaluation noteN/ADept. of Dermatology Evaluation note* Diagnosis Onset Date Resolution Status Melanoma acute [facility] Work Phone: Evaluation noteNo assessment information available [facility] Work Phone: Evaluation note* Diagnosis Onset Date Resolution Status Melanoma acute Inguinal adenopathy acute [facility] Work Phone: Evaluation note* Diagnosis Onset Date Resolution Status Inguinal adenopathy acute Melanoma acute [facility] Work Phone: Evaluation note* Diagnosis Onset Date Resolution Status Encounter for antineoplastic immunotherapy acute Inguinal adenopathy acute Melanoma acute [facility] Work Phone: evaluation note* Diagnosis Onset Date Resolution Status Melanoma acute Encounter for antineoplastic immunotherapy acute Inguinal adenopathy acute Melanoma acute [facility] Work Phone: Evaluation note* Diagnosis Essential (primary) hypertension Unspecified essential hypertension [facility] Diagnosis Benign hypertension with chronic kidney disease, stage III (CMS-HCC)- Primary Hyperlipidemia, unspecified hyperlipidemia type Malignant melanoma of left lower leg (CMS-HCC) Class 2 severe obesity due to excess calories with serious comorbidity and body mass index (BMI) of 35.0 to 35.9 in adult documented [facility] Diagnosis Injury of left wrist, initial encounter- Primary [facility]* Chemotherapy Class Time Frame: 1 Day, Location: Determined By Patient [facility] Work Phone: Hospital Discharge instructionsAmbulatory Orders* Oncology Histology Time Frame: 1 Day, Location: Determined By Patient [facility] Work Phone: InstructionsNot on filedocumented in this encounter [facility]ructionsNot on filedocumented in this encounter [facility]ructionsNot on filedocumented in this encounter [facility]* Attachments The following attachments cannot be sent through Care Everywhere. * Common wrist injuries (Bulgarian) documented [facility] SystemProgress note Author Sly Benson [facility] May 02, 2022 4:01pm Note Date/Time May 02, 2022 3 :52pm [facility] [place] [address] Hem/Onc Follow Up Note - OP Signed Patient: Theresa Luu MR#: [id number] : 1945 Acct:[id number] Age/Sex: 76 / F Type: REG RCR [...] leg melanoma removed by Dr. Trammell at [facility] in November 162020 with sentinel [...] and has CT scans scheduled for at [facility]. She is doing well, no major [...] for coordination of care (as documented) and tzsk-sy-mbsk counseling of patient and/or family. [facility] - Medical History Medical History: Medical History [...] by Sly Benson II, DO> 05/02/22 1601 [facility] Work Phone: Progress note Author Zenobia Parker [facility] June 02, 2022 11:05am Note Date/Time June 02, 2022 11:01am [facility] [place] [address] Hem/Onc Follow Up Note - OP Signed Patient: Theresa Luu MR#: [id number] : 1945 Acct:[id number] Age/Sex: 76 / F Type: REG RCR [...] leg melanoma removed by Dr. Trammell at [facility] in November 162020 with sentinel [...] and has CT scans scheduled for at [facility]. She is doing well, no major [...] 10 point review of systems is negative. [facility] - Medical History Medical History: Medical History [...] for coordination of care (as documented) and soeg-wr-cxmy counseling of patient and/or family. Dictated By: Zenobia Parker APRN DD/ 1058 Signed By: <Electronically signed by ANTOINETTE Parker> 06/02/22 8585 [facility] Work Phone: Progress note Author Sly Benson [facility] June 23, 2022 11:22am Note Date/Time June 23, 2022 11:18am [facility] [place] [facility] [address] [address] Hem/Onc Follow Up Note - OP Signed Patient: Theresa Luu MR#: [id number] : 1945 Acct:[id number] Age/Sex: 76 / F Type: REG RCR Copies to: Yoni Larson MortezahelenaDO Alex MD~ Date of Service: 06/23/2022 Time of [...] leg melanoma removed by Dr. Trammell at [facility] in November 162020 with sentinel [...] and has CT scans scheduled for at [facility]. She is doing well, no major [...] for coordination of care (as documented) and zbzt-ej-hzfp counseling of patient and/or family. [facility] - Medical History Medical History: Medical History [...] by Sly Benson II, DO> 06/23/22 1122 [facility] Work Phone: Progress note Author Sly Benson [facility] August 11, 2022 11:03am Note Date/Time August 11, 2022 1 0:48am [facility] [place] [address] Hem/Onc Follow Up Note - OP Signed Patient: Theresa Luu MR#: [id number] : 1945 Acct:[id number] Age/Sex: 76 / F Type: REG RCR [...] leg melanoma removed by Dr. Trammell at [facility] in November 162020 with sentinel [...] and has CT scans scheduled for at [facility]. She is doing well, no major [...] for coordination of care (as documented) and kbjg-ky-poqh counseling of patient and/or family. [facility] - Medical History Medical History: Medical History [...] % (Auto) 58.6, Lymph % (Auto) 29.6, [place] % (Auto) 9.0, Eos % (Auto) 2.1, Baso % (Auto) 0.7, Nucleat RBC Rel Count 0.1, Neut # (Auto) 4.4, Lymph # (Auto) 2.2, [place] # (Auto) 0.7, Eos # (Auto) 0.2, [...] 1046 Signed By: <Electronically signed by Sly Bensno II, DO> 08/11/22 1103 [facility] Work Phone: Progress note Author Sly Benson [facility] September 08, 2022 10:18am Note Date/Time September 08, 2022 10:08am [facility] [place] [address] Hem/Onc Follow Up Note - OP Signed Patient: Theresa Luu MR#: [id number] : 1945 Acct:[id number] Age/Sex: 76 / F Type: REG RCR [...] leg melanoma removed by Dr. Trammell at [facility] in November 162020 with sentinel [...] and has CT scans scheduled for at [facility]. She is doing well, no major [...] for coordination of care (as documented) and gafa-ib-ppmp counseling of patient and/or family. [facility] - Medical History Medical History: Medical History [...] by Sly Benson II, DO> 09/08/22 1018 [facility] Work Phone: Progress note Author Senia Montez [facility] December 30, 2022 11:06am Note Date/Time December 30, 2022 8:35 am [facility] at [address] [address] Hem/Onc Follow Up Note - OP Signed Patient: Theresa Luu MR#: [id number] : 1945 Acct:[id number] Age/Sex: 77 / F Type: REG RCR [...] left lower leg melanoma removed by Dr. Tramemll at [facility] in November 162020 with sentinel [...] and has CT scans scheduled for at [facility]. She is doing well, no major [...] for coordination of care (as documented) and wcra-xd-sqgq counseling of patient and/or family. [facility] - Medical History Medical History: Medical History [...] <Electronically signed by ANTOINETTE Montez> 12/30/22 1106 [facility] Work Phone: Progress note Author Sly Benson [facility] March 06, 2023 2:40pm Note Date/Time March 06, 2023 2: 37pm [facility] [place] [address] Hem/Onc Follow Up Note - OP Signed Patient: Theresa Luu MR#: [id number] : 1945 Acct:[id number] Age/Sex: 77 / F Type: REG RCR [...] leg melanoma removed by Dr. Trammell at [facility] in November 162020 with sentinel [...] and has CT scans scheduled for at [facility]. She is doing well, no major [...] maybe 3 days. worse after hot showers. BenjaminGeotender really works for this. 08/11/22 She is [...] for coordination of care (as documented) and geju-qd-mcoa counseling of patient and/or family. [facility] - Medical History Medical History: Medical History [...] % (Auto) 66.0, Lymph % (Auto) 23.1, [place] % (Auto) 8.4, Eos % (Auto) 1.7, Baso % (Auto) 0.8, Nucleat RBC Rel Count 0.0, Neut # (Auto) 4.1, Lymph # (Auto) 1.4, [place] # (Auto) 0.5, Eos # (Auto) 0.1, [...] by Sly Benson II, DO> 03/06/23 1440 [facility] Work Phone: Progress note Author Sly Benson [facility] August 07, 2023 11:49am Note Date/Time August 07, 2023 1 1:21am [facility] [place] [address] Cancer Center Note Signed Patient: Theresa Luu MR#: [id number] : 1945 Acct:[id number] Age/Sex: 77 / F Type: REG AMB [...] of 18 Cycle Day Next Admin 25 No Active Chemotherapy History of Present Illness [...] leg melanoma removed by Dr. Trammell at [facility] in November 162020 with sentinel [...] and has CT scans scheduled for at [facility]. She is doing well, no major [...] Reaction - Last Reconciled 08/07/23 by Sheyla Osborne hydrochlorothiazide 25 mg PO DAILY rosuvastatin 10 [...] up with labs and imaging for review. [facility] Medical History Medical History Malignant tumor of [...] by Sly Benson II, DO> 08/07/23 1149 [facility] Work Phone: Progress note Author Sly Benson [facility] January 22, 2024 9:45am Note Date/Time January 22, 2024 9:17 am [facility] [place] [address] Cancer Center Note Signed Patient: Theresa Luu MR#: [id number] : 1945 Acct:[id number] Age/Sex: 78 / F Type: REG AMB Date of Service: 01/22/24 Copies to: Yoni Muller DO~ Assessment & Plan A/P Patient Instructions: cont monthly nivo cbc, cmp, tsh t4. f/u in [address] c/a/p with contrst. CHEMO PLAN Treatment Plan Nivolumab (Opdivo) 480mg Q28D Clinical Indication No Indication Cycle Number Last Admin 20 of Cycle Day Next Admin No Active Chemotherapy [...] leg melanoma removed by Dr. Trammell at [facility] in November 162020 with sentinel [...] and has CT scans scheduled for at [facility]. She is doing well, no major [...] imaging for review, prior to treatment today. [facility] Medical History Medical History Malignant tumor of [...] by Sly Benson II, DO> 01/22/24 0945 [facility] Work Phone: Reason for referral (narrative)* [...] section and content) DATE CREATED AUTHOR 11/07/2020 [facility] DATE CREATED AUTHOR AUTHOR'S ORGANIZ ATION 12/04/2020 [facility] DATE CREATED AUTHOR AUTHOR'S ORGANIZ ATION 12/10/2020 [facility] DATE CREATED AUTHOR AUTHOR'S ORGANIZ ATION 05/12/2021 [facility] DATE CREATED AUTHOR AUTHOR'S ORGANIZ ATION 09/23/2021 [facility] DATE CREATED AUTHOR AUTHOR'S ORGANIZ ATION 09/28/2021 [facility] DATE CREATED AUTHOR AUTHOR'S ORGANIZ ATION 10/06/2022 [facility] DATE CREATED AUTHOR AUTHOR'S ORGANIZ ATION 02/22/2024 [facility] Care Teams (unrecognized sec tion and content) Team Status: Active Member Role Status Dates Yoni Muller DO Primary Care Provider Active Team Status: Inactive Member Role Status Dates Yoni Furlong , DO Primary Care Provider Active Start: [...] Sly Benson II, DO Attending Provider Active [employer] Relationship Specialty Start Date End Date MortezalastYoni hyattDO [address], [place] [address] PCP - General Family Medicine 04/21/22 [employer] Relationship Specialty Start Date End Date Yoni Muller [address], [place] [address] PCP - General Family Medicine 04/21/22 [employer] Relationship Specialty Start Date End Date MortezalastYoni hyattDO [address], [place] [address] PCP - General Family Medicine 04/21/22 Team Status: Inactive Member Role Status Dates Yoni Muller , Primary Care Provider Active Start: January 22, 2024 End: January 22, 2024 Sly Benson II, DO Attending Provider Active Start: January 22, 2024 End: January 22, 2024 Team Status: Active Member Role Status Dates Sly Jeffrey Kelley BRIGGS, DO Attending Provider Active Start: January 22, [...] BE BASED ON THE PRIMARY CLINICAL RECORDS. [facility]. provides no warranty or guarantee of the accuracy or completeness of information in this document.
[2024-03-16 07:37] LABS: Basophils Percent Auto 0.5 % (0.2-2.0); Eosinophils Absolute Auto 0.1 10^3/uL (0.0-0.7); Eosinophils Percent Auto 1.8 % (0.9-7.0); Hematocrit 41.5 % (36.0-48.0); Hemoglobin 13.9 g/dL (12.0-16.0); Immature Granulocytes Abs Auto 0.01 10^3/uL (0.00-0.03); Immature Granulocytes Pct Auto 0.2 % (0.0-0.5); Lymphocytes Absolute Auto 1.5 10^3/uL (1.2-3.8); Lymphocytes Percent Auto 26.6 % (20.5-60.0); Mean Corpuscular HGB Conc 33.5 g/dL (29.9-35.2); Mean Corpuscular Hemoglobin 30.5 pg (26.7-34.0); Mean Corpuscular Volume 91.2 fL (81.0-99.0); Mean Platelet Volume 9.1 fL (9.5-13.5); Monocytes Absolute Auto 0.4 10^3/uL (0.3-0.8); Monocytes Percent Auto 7.9 % (1.7-12.0); Neutrophils Absolute Auto 3.5 10^3/uL (1.4-6.5); Platelet Count 188 10^3/uL (150-450); Red Blood Count 4.55 10^6/uL (4.20-5.40); Red Cell Distribution Width 12.9 % (11.0-15.0); White Blood Count 5.6 10^3/uL (4.0-11.0)
[2024-03-16 10:19] LABS: Alanine Aminotransferase 49 U/L (14-59); Albumin Globulin Ratio 1.1; Albumin Level 3.4 g/dL (3.4-5.0); Alkaline Phosphatase 146 U/L (46-116); Anion Gap 11.3; Aspartate Amino Transferase 36 U/L (15-37); BUN Creatinine Ratio 21.9; Bilirubin Total 0.6 mg/dL (0.2-1.0); Calcium 9.4 mg/dL (8.5-10.1); Carbon Dioxide 31.1 mmol/L (21.0-32.0); Chloride 104 mmol/L (98-107); Estimated GFR (African America >60 (>=60); Estimated GFR (Non-African Ame 56 (>=60); Globulin 3.2 g/dL; Glucose 119 mg/dL (74-106); Lactate Dehydrogenase 185 U/L (81-234); Potassium 3.4 mmol/L (3.5-5.1); Sodium 143 mmol/L (136-145); Thyroid Stimulating Hormone 2.358 uIU/mL (0.358-3.740); Total Protein 6.6 g/dL (6.4-8.2)
[2024-03-16 11:57] LABS: Free T4 1.13 ng/dL (0.76-1.46)
[2024-03-17 14:10] LABS: ACTH, Plasma 18.7 pg/mL (7.2-63.3)
== END 2024-03-16 07:16 | disposition home or self-care (01) ==
LOC: LAB 07:17
PROVIDERS: PCP Family Medicine; Visit Provider Internal Medicine
DX: C43.9 Malignant melanoma of skin, unspecified (principal)
CPT/HCPCS: 36415; 80053; 82024; 83615; 84439; 84443; 85025

== ENCOUNTER 2024-04-13 07:16 | Outpatient (OUT) | payer MEDICARE, SELFPAY ==
--- OUTSIDE RECORDS SUMMARY | 2024-04-13 07:22 | XMS_ITS | CCD ---
Author Organization [facility] Providers Care Linoleum Installer Name Role Phone Quentin Fitzpatrick Unavailable Unavailable Yohana Yoni Larson Unavailable Unavailable Unavailable Quentin Fitzpatrick Unavailable Unavailable DO Sly Benson II Attending Provider Yohana, DO [place] Primary Care Provider MD Alex Trammell Referring Provider DO Sly Benson II Attending Provider [phone] Yohana, Yoni Primary Care Provider [phone] MD Alex Trammell Referring Provider MD Alex Trammell Attending Provider Yohana, DO Yoni Primary Care Provider DO Sly Benson II Attending Provider [phone] MD Alex Trammell Referring Provider Yohana, Yoni Primary Care Provider MD Alex Trammell Attending Provider DO Sly Benson II Attending Provider [phone] MD Alex Trammell Referring Provider DO Sly Benson II Attending Provider [phone] MD Alex Trammell Referring Provider Yohana, Yoni Primary Care Provider MD Alex Trammell Attending Provider Kelley II, DO Sly J Attending Provider MD Alex Trammell Referring Provider MD Alex Trammell Referring Provider MD Alex Trammell Referring Provider Kelley II, DO Sly Jeffrey Attending Provider Furlong, DO Yoni Primary Care Provider [phone] MD Alex Trammell Referring Provider [phone] Kelley II, DO Sly Jeffrey Attending Provider Furlong, DO Yoni Primary Care Provider [phone] MD Alex Trammell Referring Provider Adamhilario II, DO Sly J Attending Provider [phone] Furlong, DO [place] Primary Care Provider MD Alex Trammell Referring Provider [phone] DAMEONICZ, SLY J Admitting Unavailable FURLONG, DR [...] Unavailable DR YONI MULLER Primary Care Unavailable KELLEY, SLY J Attending Unavailable DAMEONICZ, SLY J Admitting Unavailable ADAMOWICZ, SLY J Consulting Unavailable SHUNOWICZ, SLY J Attending Unavailable SHUNOWICZ, SLY J Admitting Unavailable ADAMOWICZ, SLY J Consulting Unavailable Dameonicz II, DO Sly J Attending Provider Furlong, DO Yoni Primary Care Provider MD Alex Trammell Referring Provider Kelley II, DO Sly Jeffrey Attending Provider Jewelng, DO Yoni Primary Care Provider [phone] MD Alex Trammell Referring Provider Regino Kimber Unavailable Kelely II, DO Sly Jeffrey Attending Provider Furlong, DO Yoni Primary Care Provider MD Alex Trammell Referring Provider Kelley II, DO Sly Jeffrey Attending Provider Yohana, DO [place] Primary Care Provider MD Alex Trammell Referring Provider Kelley II, DO Sly Jeffrey Attending Provider Yohana, DO [place] Primary Care Provider [phone] MD Alex Trammell Referring Provider Furlong Yoni MITCHELL Primary Care Provider [phone] Kellye II, DO Sly Jeffrey Attending Provider Jewelng, DO Yoni Primary Care Provider MD Alex Trammell Referring Provider [phone] Kelley II, Sly Jeffrey Attending Unavaila ble Yoni Muller Primary Care Unavailable Kelley II, Sly Jeffrey Admitting Unavaila Alex Baumann Referring Unavailab Yoni Li Primary Care Unavailable Sly Benson II Admitting Unavaila Sly Blount II Attending Unavaila elliott Allergies Allergy Classification Reported Allergen(s) Allergy Type Date of Onset Reaction(s) Facility (3 sources) No Alert Propensity to adverse reactions to drug 1 [facility] (2 sources) Penicillin Drug Allergy Unknown [facility] Repository (4 sources) Penicillins Propensity to adverse reactions to drug 2 [employer] (1 source) Penicillins Drug allergy (disorder) 4 [facility] Repository Medications Current Medications Medication Drug Class(es) [...] Hormone PL 21.6 pg/mL Normal 7.2-63.3 [facility] Comment on above: Result Comment: ACTH reference interval for samples collected between 7 and 10 AM. Performed at: [facility] [address] [id number] Eyeglass Maker: Coleman Lacy PhD, Phone: [phone] PERFORMED BY: [facility] [address] [place] [address] PATHOLOGIST STAFF MECHANICAL ENGINEER WAYLON SAUNDERS M.D. Performed By: #### T 4F, CMP, LDH, TSH3, CBC ####[address]#### ACTH ####[facility] , Alanine aminotransferase [En zymatic activity/volume] in Serum or PlasmaOrdered By: Sly Benson on 01-20-2024 ALT [Catalytic activity/Vol] 34 U/L Normal 7-52 [facility] Comment on above: Performed By: #### T 4F, CMP, LDH, TSH3, CBC ####[place] [address] [place] [address] [place]#### ACTH ####[facility] , Albumin [Mass/volume] in Ser um or Plasma by Bromocresol green (BCG) dye binding methoOrdered By: Sly Benson on 01-20-2024 Albumin BCG dye [Mass/Vol] 4.0 g/dL 3.5-5.7 [facility] Alkaline phosphatase [Enzyma tic activity/volume] in Serum or PlasmaOrdered By: Sly Benson on 01-20-2024 ALP [Catalytic activity/Vol] 109 U/L High 34-104 [facility] Comment on above: Performed By: #### T 4F, CMP, LDH, TSH3, CBC ####[place] [address] [place]#### ACTH ####[facility] , Aspartate aminotransferase [ Enzymatic activity/volume] in Serum or PlasmaOrdered By: Sly Benson on 01-20-2024 AST [Catalytic activity/Vol] 26 U/L Normal 13-39 [facility] Comment on above: Performed By: #### T 4F, CMP, LDH, TSH3, CBC ####[place] [address] [place]#### ACTH ####[facility] , Automated basophil %Ordered By: Sly Benson on 01-20-2024 Basophils/100 WBC (Bld) 0.3 % Normal . [facility] Comment on above: Performed By: #### T 4F, CMP, LDH, TSH3, CBC #### [place] [address] [place] #### ACTH #### [facility] , Automated basophil countOrde red By: Sly Benson on 01-20-2024 Basophils (Bld) [#/Vol] 0.0 10*3/uL Normal 0.0-0.2 [facility] Comment on above: Result Comment: PERF ORMED BY: [place] [address] PATHOLOGIST STAFF MECHANICAL ENGINEER WAYLON SAUNDERS M.D. Performed By: #### T 4F, CMP, LDH, TSH3, CBC #### [place] [address] [place] #### ACTH #### [facility] , Automated blood monocyte cou ntOrdered By: Sly Benson on 01-20-2024 Monocytes (Bld) [#/Vol] 0.8 10*3/uL Normal 0.0-0.8 [facility] Comment on above: Performed By: #### T 4F, CMP, LDH, TSH3, CBC #### [place] [address] [place] #### ACTH #### [facility] , Automated eosinophil %Ordere d By: Sly Benson on 01-20-2024 Eosinophils/100 WBC (Bld) 1.3 % Normal . [facility] Comment on above: Performed By: #### T 4F, CMP, LDH, TSH3, CBC #### [place] [address] [place] #### ACTH #### [facility] , Automated eosinophil countOr dered By: Sly Benson on 01-20-2024 Eosinophils (Bld) [#/Vol] 0.1 10*3/uL Normal 0.0-0.45 [facility] Comment on above: Performed By: #### T 4F, CMP, LDH, TSH3, CBC #### [place] [address] [place] #### ACTH #### [facility] , Automated monocyte %Ordered By: Sly Benson on 01-20-2024 Monocytes/100 WBC (Bld) 8.7 % Normal . [facility] Comment on above: Performed By: #### T 4F, CMP, LDH, TSH3, CBC #### [place] [address] [place] #### ACTH #### [facility] , Automated neutrophil %Ordere d By: Sly Benson on 01-20-2024 Neutrophils/100 WBC (Bld) 71.5 % Normal . [facility] Comment on above: Performed By: #### T 4F, CMP, LDH, TSH3, CBC #### [address] [place] [address] [place] #### ACTH #### [facility] , Bilirubin.total [Mass/volume ] in Serum or PlasmaOrdered By: Sly Benson on 01-20-2024 Bilirubin [Mass/Vol] 0.8 mg/dL Normal 0.3-1.0 [facility] Comment on above: Performed By: #### T 4F, CMP, LDH, TSH3, CBC ####[facility] [address]#### ACTH ####[facility] , CT abdomen pelvis w conon CT abdomen pelvis w con [facility] [place] [address] [place] [address] CT Scan Report Signed Patient: Theresa Luu MR#: [id number] : 1945 Acct:[id number] Age/Sex: 78 / F ADM Date: 01/20/24 Loc: Room: Type: [facility] RCR Attending Dr: Sly Benson II DO Copies to: Sly Benson II, DO Ordering Provider: Sly Benson II, DO Date of Service: 01/20/24 CT/CT chest w con: MELANOMA ([id number]) CT/CT abdomen pelvis w con: MELANOMA CT [...] Monroe Jr., D.O.01/20/2024 11:24 AM Dictation Location: [place] [address] Transcribed By: [facility] 01/20/24 1124 Dictated By: Sylvain Monroe Jr, DO 01/20/24 1111 Signed By: 01/20/24 1124 Normal [facility] Calcium [Mass/volume] in Ser um or PlasmaOrdered By: Sly Benson on 01-20-2024 Calcium [Mass/Vol] 9.1 mg/dL Normal 8.6-10.3 [facility] Comment on above: Performed By: #### T 4F, CMP, LDH, TSH3, CBC ####[facility] [address] [place] [address] [facility]#### ACTH ####[facility] , Carbon dioxide, total [Moles /volume] in Serum or PlasmaOrdered By: Sly Benson on 01-20-2024 CO2 [Moles/Vol] 29.1 mmol/L Normal 21.0-31.0 [facility] Comment on above: Performed By: #### T 4F, CMP, LDH, TSH3, CBC ####[facility] [place] [address] [place]#### ACTH ####[facility] , Chloride [Moles/volume] in S mellissa or PlasmaOrdered By: Sly Benson on 01-20-2024 Chloride [Moles/Vol] 102 mmol/L Normal 98-107 [facility] Comment on above: Performed By: #### T 4F, CMP, LDH, TSH3, CBC ####[facility] [place] [address] [place]#### ACTH ####[facility] , Complete Blood Count Auto Di ffon 01-20-2024 Mean Corpuscular HGB Conc 33.7 g/dL Normal 32.0-35.0 [facility] Comment on above: Performed By: #### T 4F, CMP, LDH, TSH3, CBC #### [facility] [address] [place] [address] [place] #### ACTH #### [facility] , NRBC% 0.0 /100{WBC} Normal 0-0.5 [facility] Comment on above: Performed By: #### T 4F, CMP, LDH, TSH3, CBC #### [place] [address] [place] #### ACTH #### [facility] , Comprehensive Metabolic Pane eileen 01-20-2024 Albumin [Mass/Vol] 4.0 g/dL Normal 3.5-5.7 [facility] Comment on above: Performed By: #### T 4F, CMP, LDH, TSH3, CBC ####[facility] [place] [address] [place]#### ACTH ####[facility] , Creatinine Clr Calc Pharmacy 58.76 Normal [facility] Comment on above: Performed By: #### T 4F, CMP, LDH, TSH3, CBC ####[facility] [place] [address] [place]#### ACTH ####[facility] , GFR/1.73 sq M.predicted MDRD (S/P/Bld) [Vol rate/Area] mL/min/{1.73_m2} Normal [facility] Comment on above: Performed By: #### T 4F, CMP, LDH, TSH3, CBC ####[place] [address] [place]#### ACTH ####[facility] , Creatinine [Mass/volume] in Serum or PlasmaOrdered By: Sly Benson on 01-20-2024 Creatinine [Mass/Vol] 0.84 mg/dL Normal 0.60-1.20 [facility] Comment on above: Performed By: #### T 4F, CMP, LDH, TSH3, CBC ####[place] [address] [place]#### ACTH ####[facility] , Erythrocyte distribution wid th [Ratio] by Automated countOrdered By: Sly Benson on 01-20-2024 Erythrocyte distribution width (RBC) [Ratio] 14.1 % Normal 11.9-15.3 [facility] Comment on above: Performed By: #### T 4F, CMP, LDH, TSH3, CBC #### [place] [address] [place] #### ACTH #### [facility] , Erythrocytes [#/volume] in B lood by Automated countOrdered By: Sly Benson on 01-20-2024 RBC (Bld) [#/Vol] 4.77 10*6/uL Normal 3.60-5.00 [facility] Comment on above: Performed By: #### T 4F, CMP, LDH, TSH3, CBC #### [place] [address] [place] #### ACTH #### [facility] , Glucose [Mass/volume] in Ser um or PlasmaOrdered By: Sly Benson on 01-20-2024 Glucose [Mass/Vol] 112 mg/dL High 70-100 [facility] Comment on above: ADA recommended refe rence rangeRandom Glucose Reference Range is dependent on time and content of last meal. Glucose of more than 200 mg/dL in a nonstressed, ambulatory subject supports the diagnosis of Diabetes Mellitus. Result Comment: [place] om Glucose Reference Range is dependent on time and content of last meal. Glucose of more than 200 mg/dL in a nonstressed, ambulatory subject supports the diagnosis of Diabetes Mellitus. ADA recommended reference range Performed By: #### T 4F, CMP, LDH, TSH3, CBC ####[place] [address] [place]#### ACTH ####[facility] , Hematocrit [Volume Fraction] of Blood by Automated countOrdered By: Sly Hernandezhilario on 01-20-2024 Hematocrit (Bld) [Volume fraction] 43.2 % Normal 34.0-46.4 [facility] Comment on above: Performed By: #### T 4F, CMP, LDH, TSH3, CBC #### [facility] [address] [place] [address] [place] #### ACTH #### [facility] , Hemoglobin [Mass/volume] in BloodOrdered By: Sly Hernandezhilario on 01-20-2024 Hemoglobin (Bld) [Mass/Vol] 14.6 g/dL Normal 11.8-15.4 [facility] Comment on above: Performed By: #### T 4F, CMP, LDH, TSH3, CBC #### [facility] [address] [place] [address] [place] #### ACTH #### [facility] , LDH Lactate Dehydrogenaseon 01-20-2024 LDH Lactate Dehydrogenase 191 U/L Normal 140-271 [facility] Comment on above: Performed By: #### T 4F, CMP, LDH, TSH3, CBC ####[facility] [place] [address] [place]#### ACTH ####[facility] , Lactate dehydrogenase [Enzym atic activity/volume] in Serum or Plasma by Lactate to pyOrdered By: Sly Benson on 01-20-2024 LDH Lactate to pyruvate reaction [Catalytic activity/Vol] 191 U/L 140-271 [facility] Leukocytes [#/volume] correc margot for nucleated erythrocytes in Blood by Automated counOrdered By: Sly Benson on 01-20-2024 WBC corrected for nucl RBC Auto (Bld) [#/Vol] 9.2 10*3/uL 3.8-11.6 [facility] Leukocytes [#/volume] in Blo od by Automated countOrdered By: Sly Benson on 01-20-2024 WBC (Bld) [#/Vol] 9.2 10*3/uL Normal 3.8-11.6 [facility] Comment on above: Performed By: #### T 4F, CMP, LDH, TSH3, CBC #### [facility] [address] [place] [address] [place] #### ACTH #### [facility] , Lymphocytes [#/volume] in Bl ood by Automated countOrdered By: Sly Benson on 01-20-2024 Lymphocytes (Bld) [#/Vol] 1.7 10*3/uL Normal 1.00-4.8 [facility] Comment on above: Performed By: #### T 4F, CMP, LDH, TSH3, CBC #### [facility] [address] [place] [address] [place] #### ACTH #### [facility] , Lymphocytes/100 leukocytes i n Blood by Automated countOrdered By: Sly Benson on 01-20-2024 Lymphocytes/100 WBC (Bld) 18.2 % Normal . [facility] Comment on above: Performed By: #### T 4F, CMP, LDH, TSH3, CBC #### [facility] [address] [place] [address] [place] #### ACTH #### [facility] , MCH [Entitic mass] by Automa margot countOrdered By: Sly Benson on 01-20-2024 MCH (RBC) [Entitic mass] 30.5 pg Normal 24.7-34.3 [facility] Comment on above: Performed By: #### T 4F, CMP, LDH, TSH3, CBC #### [address] #### ACTH #### [facility] , MCHC Auto (RBC) [Mass/Vol]Or dered By: Sly Benson on 01-20-2024 MCHC (RBC) [Mass/Vol] 33.7 g/dL 32.0-35.0 [facility] MCV [Entitic volume] by Auto mated countOrdered By: Sly Benson on 01-20-2024 MCV (RBC) [Entitic vol] 90.4 fL Normal 80-100 [facility] Comment on above: Performed By: #### T 4F, CMP, LDH, TSH3, CBC #### [place] [address] [place] #### ACTH #### [facility] , Neutrophils [#/volume] in Bl ood by Automated countOrdered By: Sly Benson on 01-20-2024 Neutrophils (Bld) [#/Vol] 6.6 10*3/uL Normal 1.8-7.7 [facility] Comment on above: Performed By: #### T 4F, CMP, LDH, TSH3, CBC #### [facility] [address] [place] [address] [place] #### ACTH #### [facility] , No Panel InformationOrdered By: Sly Benson on 01-20-2024 Adrenocorticotropic Hormone 21.6 pg/mL 7.2-63.3 [facility] Comment on above: ACTH reference inter jamel for samples collected between 7 and10 AM.Performed at: [facility] [address] [id number] Director: Coleman Lacy PhD, Phone: [phone] Estimated GFR (CKD-EPI) > 60.0 mL/Min [facility] Creatinine Clearance (Chem 58.76 [facility] Nucleated erythrocytes [Pres ence] in Blood by Automated countOrdered By: Sly Benson on 01-20-2024 Nucleated RBC Auto Ql (Bld) 0.0 /100{WBC} 0-0.5 [facility] Platelet mean volume [Entiti c volume] in Blood by Automated countOrdered By: Sly Benson on 01-20-2024 Platelet mean volume (Bld) [Entitic vol] 7.3 fL Normal 6.3-10.7 [facility] Comment on above: Performed By: #### T 4F, CMP, LDH, TSH3, CBC #### [facility] [address] [place] [address] [place] #### ACTH #### [facility] , Platelets [#/volume] in Bloo d by Automated countOrdered By: Sly Benson on 01-20-2024 Platelets (Bld) [#/Vol] 182 10*3/uL Normal 150-450 [facility] Comment on above: Performed By: #### T 4F, CMP, LDH, TSH3, CBC #### [facility] [address] [place] [address] [place] #### ACTH #### [facility] , Potassium [Moles/volume] in Serum or PlasmaOrdered By: Sly Benson on 01-20-2024 Potassium [Moles/Vol] 3.6 mmol/L Normal 3.5-5.1 [facility] Comment on above: Performed By: #### T 4F, CMP, LDH, TSH3, CBC ####[facility] [address] [place] [address] [place]#### ACTH ####[facility] , Protein [Mass/volume] in Ser um or PlasmaOrdered By: Sly Benson on 01-20-2024 Protein [Mass/Vol] 6.9 g/dL Normal 6.4-8.9 [facility] Comment on above: Performed By: #### T 4F, CMP, LDH, TSH3, CBC ####[address]#### ACTH ####[facility] , Serum globulin measurement b y calculation (mass/volume)Ordered By: Sly Benson on 01-20-2024 Globulin (S) [Mass/Vol] 2.9 g/dL [facility] Comment on above: Performed By: #### T 4F, CMP, LDH, TSH3, CBC ####[address]#### ACTH ####[facility] , Serum or plasma albumin/glob ulin mass ratioOrdered By: Sly Benson on 01-20-2024 Albumin/Globulin [Mass ratio] 1.4 {ratio} [facility] Comment on above: Performed By: #### T 4F, CMP, LDH, TSH3, CBC ####[address]#### ACTH ####[facility] , Serum or plasma anion gap de terminationOrdered By: Sly Benson on 01-20-2024 Anion gap [Moles/Vol] 11.5 mmol/L Normal 6.0-15.0 [facility] Comment on above: Performed By: #### T 4F, CMP, LDH, TSH3, CBC ####[place] [address] [place]#### ACTH ####[facility] , Sodium [Moles/volume] in Ser um or PlasmaOrdered By: Sly Benson on 01-20-2024 Sodium [Moles/Vol] 139 mmol/L Normal 136-145 [facility] Comment on above: Performed By: #### T 4F, CMP, LDH, TSH3, CBC ####[place] [address] [place]#### ACTH ####[facility] , Thyrotropin [Units/volume] i n Serum or PlasmaOrdered By: Sly Benson on 01-20-2024 TSH Qn 2.04 m[IU]/L Normal 0.45-5.33 [facility] Comment on above: Result Comment: PERF ORMED BY: [facility] [place] [address] PATHOLOGIST STAFF MECHANICAL ENGINEER WAYLON SAUNDERS M.D. Performed By: #### T 4F, CMP, LDH, TSH3, CBC ####[place] [address]#### ACTH ####[facility] , Thyroxine (T4) free [Mass/vo lume] in Serum or PlasmaOrdered By: Sly Benson on 01-20-2024 Free T4 [Mass/Vol] 1.16 ng/dL High 0.61-1.12 [facility] Comment on above: Performed By: #### T 4F, CMP, LDH, TSH3, CBC ####[place] [address]#### ACTH ####[facility] , Urea nitrogen [Mass/volume] in Serum or PlasmaOrdered By: Sly Benson on 01-20-2024 Urea nitrogen [Mass/Vol] 19 mg/dL Normal 7-25 [facility] Comment on above: Performed By: #### T 4F, CMP, LDH, TSH3, CBC ####[place] [address] [place]#### ACTH ####[facility] , XR Wrist - left 3 ViewsOrder ed By: Caty Gaona on 2023 Radiology Study [facility] (narrative[facility] - left 3 ViewsOrder ed By: Caty Gaona on 10-01-2023 [facility] Basic Metabolic Panelon Anion gap [Moles/Vol] 7 mmol/L 5 - 15 mmol/L [facility] Calcium [Mass/Vol] 9.5 mg/dL 8.5 - 10. 5 mg/dL [facility] Chloride [Moles/Vol] 101 mmol/L 98 - 10 9 mmol/L [facility] CO2 [Moles/Vol] 32 mmol/L 22 - 32 mmol/L [facility] Creatinine [Mass/Vol] 0.96 mg/dL 0.40 - 1.00 mg/dL [facility] Comment on above: METHOD TRACEABLE TO [facility] STANDARD eGFR (CKD-EPI)non-race dependent 61 - PINF [facility] Comment on above: Reported eGFR is based on the CKD-EPI 2020 equation that does not use a race coefficient. Glucose [Mass/Vol] 107 mg/dL High 65 - 99 mg/dL [facility] Interpretation and review of laboratory results Abnormal [facility] Potassium [Moles/Vol] 3.3 mmol/L Low 3.5 - 5.0 mmol/L [facility] Sodium [Moles/Vol] 140 mmol/L 134 - 146 mmol/L [facility] Urea nitrogen [Mass/Vol] 22 mg/dL 5 - 27 mg/dL [facility] CBC without diffon 4 Erythrocyte distribution width (RBC) [Ratio] 13.9 % 11.5 - 15.0 % [facility] Hematocrit (Bld) [Volume fraction] 39.4 % 35 - 47 % [facility] Hemoglobin (Bld) [Mass/Vol] 13.5 g/dL 11.7 - 15.5 g/dL [facility] MCH (RBC) [Entitic mass] 30.4 pg 27 - 34 pg [facility] MCHC (RBC) [Mass/Vol] 34.2 g/dL 32 - 3 6 g/dL [facility] MCV (RBC) [Entitic vol] 89 fL 80 - 100 fL [facility] Platelet mean volume (Bld) [Entitic vol] 7.9 fL 7 - 12 fL [facility] Platelets (Bld) [#/Vol] 202 10*3/uL [facility] RBC (Bld) [#/Vol] 4.43 10*6/uL [facility] WBC corrected for nucl RBC Auto (Bld) [#/Vol] 6.6 [facility] Lipid 1996 panelon 03-05-202 4 Cholesterol [Mass/Vol] 154 mg/dL 150 - 200 mg/dL [facility] Cholesterol in HDL [Mass/Vol] 76 mg/dL 39 - PINF mg/dL [facility] Comment on above: HDL <40 mg/dL - High Risk HDL > or = 40mg/dL- Desirable HDL >60 mg/dL - Negative Risk Cholesterol in LDL [Mass/Vol] 52 mg/dL NINF - 130 mg/dL [facility] Comment on above: LDL <100 mg/dL - Desirable LDL >160 mg/dL - High Risk Cholesterol in VLDL [Mass/Vol] 26 mg/dL 0 - 30 mg/dL [facility] Cholesterol.total/Chol esterol in HDL [Mass ratio] 2.0 {ratio} 1.0 - 5.0 [facility] Triglyceride [Mass/Vol] 132 mg/dL 27 - 150 mg/dL [facility] Magnesiumon 09-15-2023 Magnesium [Mass/Vol] 1.9 mg/dL 1.8 - 2 .6 mg/dL [facility] No Panel Informationon 09-14 [facility] Parathyrin.intact [Mass/Vol] on 09-15-2023 [facility] Parathyroid Hormone, intacto n 09-15-2023 Parathyrin.intact [Mass/Vol] 36 pg/mL 12 - 88 pg/mL [facility] Phosphoruson 09-15-2023 Phosphate [Mass/Vol] 3.6 mg/dL 2.4 - 4 .9 mg/dL [facility] Uric acidon 09-15-2023 Urate [Mass/Vol] 5.4 mg/dL 2.6 - 7.2 mg/dL [facility] Vitamin D 25 hydroxyon 09-14 Vitamin D+Metabolites [Mass/Vol] 28.4 ng/mL Low 30 - 100 ng/mL [facility] Comment on above: Vitamin D status 25 [place] Vitamin D Deficiency <20 ng/mL Insufficiency 20-29 ng/mL Sufficiency 30-100 ng/mL Toxicity >100 ng/mL NOTE: A pediatric reference range has not been established by the counter supervisor of this kit. The [place] [employer] recommends a Vitamin D level of = or >20ng/mL in infants and children. Vitamin D+Metabolites [Mass/ Vol]on 09-15-2023 Interpretation and review of laboratory results Abnormal [facility] Complete Blood Count Auto Di ffon 08-07-2023 Basophils (Bld) [#/Vol] 0.0 10*3/uL Normal 0.0-0.2 [facility] Comment on above: Result Comment: PERF ORMED BY: [place] [address] PATHOLOGIST STAFF MECHANICAL ENGINEER WAYLON SAUNDERS M.D. Performed By: #### C BC #### [address] Basophils/100 WBC (Bld) 0.5 % Normal . [facility] Comment on above: Performed By: #### C BC #### [address] Eosinophils (Bld) [#/Vol] 0.0 10*3/uL Normal 0.0-0.45 [facility] Comment on above: Performed By: #### C BC #### [address] Eosinophils/100 WBC (Bld) 0.1 % Normal . [facility] Comment on above: Performed By: #### C BC #### [address] Erythrocyte distribution width (RBC) [Ratio] 13.6 % Normal 11.9-15.3 [facility] Comment on above: Performed By: #### C BC #### [address] Hematocrit (Bld) [Volume fraction] 37.0 % Normal 34.0-46.4 [facility] Comment on above: Performed By: #### C BC #### [address] Hemoglobin (Bld) [Mass/Vol] 12.8 g/dL Normal 11.8-15.4 [facility] Comment on above: Performed By: #### C BC #### [address] Lymphocytes (Bld) [#/Vol] 1.1 10*3/uL Normal 1.00-4.8 [facility] Comment on above: Performed By: #### C BC #### [address] Lymphocytes/100 WBC (Bld) 13.9 % Normal . [facility] Comment on above: Performed By: #### C BC #### [address] MCH (RBC) [Entitic mass] 30.2 pg Normal 24.7-34.3 [facility] Comment on above: Performed By: #### C BC #### [address] MCV (RBC) [Entitic vol] 87.3 fL Normal 80-100 [facility] Comment on above: Performed By: #### C BC #### [address] Mean Corpuscular HGB Conc 34.6 g/dL Normal 32.0-35.0 [facility] Comment on above: Performed By: #### C BC #### [address] Monocytes (Bld) [#/Vol] 0.5 10*3/uL Normal 0.0-0.8 [facility] Comment on above: Performed By: #### C BC #### [address] Monocytes/100 WBC (Bld) 6.4 % Normal . [facility] Comment on above: Performed By: #### C BC #### [facility] [address] Neutrophils (Bld) [#/Vol] 6.0 10*3/uL Normal 1.8-7.7 [facility] Comment on above: Performed By: #### C BC #### [facility] [address] Neutrophils/100 WBC (Bld) 79.1 % Normal . [facility] Comment on above: Performed By: #### C BC #### [facility] [address] NRBC% 0.0 /100{WBC} Normal 0-0.5 [facility] Comment on above: Performed By: #### C BC #### [address] Platelet mean volume (Bld) [Entitic vol] 7.3 fL Normal 6.3-10.7 [facility] Comment on above: Performed By: #### C BC #### [address] Platelets (Bld) [#/Vol] 202 10*3/uL Normal 150-450 [facility] Comment on above: Performed By: #### C BC #### [place] [address] [place] RBC (Bld) [#/Vol] 4.24 10*6/uL Normal 3.60-5.00 [facility] Comment on above: Performed By: #### C BC #### [place] [address] [place] WBC (Bld) [#/Vol] 7.6 10*3/uL Normal 3.8-11.6 [facility] Comment on above: Performed By: #### C BC #### [address] Adrenocorticotropic Hormone PLon 08-06-[address] 21.1 pg/mL Normal 7.2-63.3 [facility] Comment on above: Result Comment: ACTH reference interval for samples collected between 7 and 10 AM. Performed at: - [facility] [id number] Eyeglass Maker: Coleman Lacy PhD, Phone: [phone] PERFORMED BY: [place] [address] PATHOLOGIST STAFF MECHANICAL ENGINEER WAYLON SAUNDERS M.D. Performed By: #### A CT ####[facility] , Alanine aminotransferase [En zymatic activity/volume] in Serum or PlasmaOrdered By: Sly Benson on 08-06-2023 ALT [Catalytic activity/Vol] 23 U/L Normal 7-52 [facility] Comment on above: Performed By: #### T SH3, T4F, LDH, CMP #### [place] [address] [place] Albumin [Mass/volume] in Ser um or Plasma by Bromocresol green (BCG) dye binding methoOrdered By: Sly Benson on 08-06-2023 Albumin BCG dye [Mass/Vol] 4.0 g/dL 3.5-5.7 [facility] Alkaline phosphatase [Enzyma tic activity/volume] in Serum or PlasmaOrdered By: Sly Benson on 08-06-2023 ALP [Catalytic activity/Vol] 95 U/L Normal 34-104 [facility] Comment on above: Performed By: #### T SH3, T4F, LDH, CMP #### [facility] [address] [place] [address] Aspartate aminotransferase [ Enzymatic activity/volume] in Serum or PlasmaOrdered By: Sly Benson on 08-06-2023 AST [Catalytic activity/Vol] 29 U/L Normal 13-39 [facility] Comment on above: Performed By: #### T SH3, T4F, LDH, CMP #### [address] Bilirubin.total [Mass/volume ] in Serum or PlasmaOrdered By: Sly Benson on 08-06-2023 Bilirubin [Mass/Vol] 0.6 mg/dL Normal 0.3-1.0 [facility] Comment on above: Performed By: #### T SH3, T4F, LDH, CMP #### [facility] [address] [place] [id number] [facility] CT abdomen pelvis w conon CT abdomen pelvis w con [facility] [address] [place] [address] [place] [address] CT Scan Report Signed Patient: Theresa Luu MR#: [id number] : 1945 Acct:[id number] Age/Sex: 77 / F ADM Date: 08/06/23 Loc: Room: [facility] Attending Dr: Sly Benson II DO Copies to: Sly Benson II, DO Ordering Provider: Sly Benson II, DO Date of Service: 08/06/23 CT/CT abdomen pelvis w con: surveillance ([id number]) CT/CT chest w con: surveillance CT CHEST, [...] Monroe Jr., D.O.08/06/2023 2:43 PM Dictation Location: [place] [address] Transcribed By: [facility] 08/06/23 1443 Dictated By: Sylvain Monroe Jr, DO 08/06/23 1430 Signed By: 08/06/23 1443 Normal [facility] Calcium [Mass/volume] in Ser um or PlasmaOrdered By: Sly Benson on 08-06-2023 Calcium [Mass/Vol] 9.2 mg/dL Normal 8.6-10.3 [facility] Comment on above: Performed By: #### T SH3, T4F, LDH, CMP #### [facility] [address] Carbon dioxide, total [Moles /volume] in Serum or PlasmaOrdered By: Sly Benson on 08-06-2023 CO2 [Moles/Vol] 30.5 mmol/L Normal 21.0-31.0 [facility] Comment on above: Performed By: #### T SH3, T4F, LDH, CMP #### [facility] [address] [place] [address] [place] Chloride [Moles/volume] in S mellissa or PlasmaOrdered By: Sly Benson on 08-06-2023 Chloride [Moles/Vol] 104 mmol/L Normal 98-107 [facility] Comment on above: Performed By: #### T SH3, T4F, LDH, CMP #### [facility] [address] Comprehensive Metabolic Pane eileen 08-06-2023 Albumin [Mass/Vol] 4.0 g/dL Normal 3.5-5.7 [facility] Comment on above: Performed By: #### T SH3, T4F, LDH, CMP #### [facility] [address] [place] [id number] [facility] Anion gap [Moles/Vol] Not performed Normal 6.0-15.0 [facility] Comment on above: Performed By: #### T SH3, T4F, LDH, CMP #### [facility] [address] [place] [address] [place] Creatinine Clr Calc Pharmacy 57.70 Normal [facility] Comment on above: Performed By: #### T SH3, T4F, LDH, CMP #### [facility] [address] [place] [address] [place] GFR/1.73 sq M.predicted MDRD (S/P/Bld) [Vol rate/Area] mL/min/{1.73_m2} Normal [facility] Comment on above: Performed By: #### T SH3, T4F, LDH, CMP #### [address] Potassium Normal 3.5-5.1 [facility] Comment on above: Result Comment: Spec imen hemolyzed, redraw requested Performed By: #### T SH3, T4F, LDH, CMP #### [place] [address] [place] Creatinine [Mass/volume] in Serum or PlasmaOrdered By: Sly Benson on 08-06-2023 Creatinine [Mass/Vol] 0.87 mg/dL Normal 0.60-1.20 [facility] Comment on above: Performed By: #### T SH3, T4F, LDH, CMP #### [address] Glucose [Mass/volume] in Ser um or PlasmaOrdered By: Sly Benson on 08-06-2023 Glucose [Mass/Vol] 95 mg/dL Normal 70-100 [facility] Comment on above: ADA recommended refe rence rangeRandom Glucose Reference Range is dependent on time and content of last meal. Glucose of more than 200 mg/dL in a nonstressed, ambulatory subject supports the diagnosis of Diabetes Mellitus. Result Comment: [place] om Glucose Reference Range is dependent on time and content of last meal. Glucose of more than 200 mg/dL in a nonstressed, ambulatory subject supports the diagnosis of Diabetes Mellitus. ADA recommended reference range Performed By: #### T SH3, T4F, LDH, CMP #### [facility] [address] [place] [address] [place] LDH Lactate Dehydrogenaseon 08-06-2023 LDH Lactate Dehydrogenase Normal 140-271 [facility] Comment on above: Result Comment: Spec imen hemolyzed, redraw requested Performed By: #### T SH3, T4F, LDH, CMP #### [facility] [address] [place] [address] [place] Lactate dehydrogenase [Enzym atic activity/volume] in Serum or Plasma by Lactate to pyOrdered By: Sly Benson on 08-06-2023 LDH Lactate to pyruvate reaction [Catalytic activity/Vol] 173 U/L 140-271 [facility] No Panel InformationOrdered By: Sly Benson on 08-06-2023 Estimated GFR (CKD-EPI) > 60.0 mL/Min [facility] Creatinine Clearance (Chem 57.70 [facility] Potassium [Moles/volume] in Serum or PlasmaOrdered By: Sly Benson on 08-06-2023 Potassium [Moles/Vol] 3.6 mmol/L Normal 3.5-5.1 [facility] Comment on above: Order Comment: SPECI MEN HEMOLYZED. NOTIFIED CHON. Performed By: #### R EDRAW LDH, REDRAW K #### [facility] [address] [place] [address] [place] Protein [Mass/volume] in Ser um or PlasmaOrdered By: Sly Benson on 08-06-2023 Protein [Mass/Vol] 7.0 g/dL Normal 6.4-8.9 [facility] Comment on above: Performed By: #### T SH3, T4F, LDH, CMP #### [facility] [address] [place] [address] Redraw LDHon 08-06-2023 Redraw LDH 173 U/L Normal 140-271 [facility] Comment on above: Order Comment: SPECI MEN HEMOLYZED. NOTIFIED CHON. Result Comment: PERF ORMED BY: [place] [address] PATHOLOGIST STAFF MECHANICAL ENGINEER WAYLON SAUNDERS M.D. Performed By: #### R EDRAW LDH, REDRAW K #### [address] Serum globulin measurement b y calculation (mass/volume)Ordered By: Sly Benson on 08-06-2023 Globulin (S) [Mass/Vol] 3.0 g/dL [facility] Comment on above: Performed By: #### T SH3, T4F, LDH, CMP #### [address] Serum or plasma albumin/glob ulin mass ratioOrdered By: Sly Benson on 08-06-2023 Albumin/Globulin [Mass ratio] 1.3 {ratio} [facility] Comment on above: Performed By: #### T SH3, T4F, LDH, CMP #### [address] Serum or plasma anion gap de terminationOrdered By: Sly Benson on 08-06-2023 Anion gap [Moles/Vol] TNP [facility] Comment on above: Test not performed Sodium [Moles/volume] in Ser um or PlasmaOrdered By: Sly Benson on 08-06-2023 Sodium [Moles/Vol] 141 mmol/L Normal 136-145 [facility] Comment on above: Performed By: #### T SH3, T4F, LDH, CMP #### [address] Thyrotropin [Units/volume] i n Serum or PlasmaOrdered By: Sly Benson on 08-06-2023 TSH Qn 2.81 m[IU]/L Normal 0.45-5.33 [facility] Comment on above: Result Comment: PERF ORMED BY: [place] [address] PATHOLOGIST STAFF MECHANICAL ENGINEER WAYLON SAUNDERS M.D. Performed By: #### T SH3, T4F, LDH, CMP #### [facility] [address] [place] [address] Thyroxine (T4) free [Mass/vo lume] in Serum or PlasmaOrdered By: Sly Benson on 08-06-2023 Free T4 [Mass/Vol] 1.13 ng/dL High 0.61-1.12 [facility] Comment on above: Performed By: #### T SH3, T4F, LDH, CMP #### [facility] [address] [place] [address] Urea nitrogen [Mass/volume] in Serum or PlasmaOrdered By: Sly Benson on 08-06-2023 Urea nitrogen [Mass/Vol] 23 mg/dL Normal 02-03 [facility] Comment on above: Performed By: #### T SH3, T4F, LDH, CMP #### [facility] [address] [place] [address] Alanine aminotransferase [En zymatic activity/volume] in Serum or PlasmaOrdered By: Sly Benson on 03-05-2023 ALT [Catalytic activity/Vol] 22 U/L 7 [facility] Albumin [Mass/volume] in Ser um or Plasma by Bromocresol green (BCG) dye binding methoOrdered By: Sly Benson on 03-05-2023 Albumin BCG dye [Mass/Vol] 4.1 g/dL 3.5-5.7 [facility] Alkaline phosphatase [Enzyma tic activity/volume] in Serum or PlasmaOrdered By: Sly Benson on 03-05-2023 ALP [Catalytic activity/Vol] 106 U/L 34-104 [facility] Aspartate aminotransferase [ Enzymatic activity/volume] in Serum or PlasmaOrdered By: Sly Benson on 03-05-2023 AST [Catalytic activity/Vol] 23 U/L 13-39 [facility] Basophils Auto (Bld) [#/Vol] Ordered By: Sly Benson on 03-05-2023 Basophils (Bld) [#/Vol] 0.0 10*3/uL 0.0-0.2 [facility] Basophils/100 WBC Auto (Bld) Ordered By: Sly Benson on 03-05-2023 Basophils/100 WBC (Bld) 0.8 % . [facility] Bilirubin.total [Mass/volume ] in Serum or PlasmaOrdered By: Sly Benson on 03-05-2023 Bilirubin [Mass/Vol] 0.6 mg/dL 0.3-1.0 [facility] Calcium [Mass/volume] in Ser um or PlasmaOrdered By: Sly Benson on 03-05-2023 Calcium [Mass/Vol] 9.4 mg/dL 8.6-10.3 [facility] Carbon dioxide, total [Moles /volume] in Serum or PlasmaOrdered By: Sly Benson on 03-05-2023 CO2 [Moles/Vol] 28.0 mmol/L 21.0-31.0 [facility] Chloride [Moles/volume] in S mellissa or PlasmaOrdered By: Sly Benson on 03-05-2023 Chloride [Moles/Vol] 104 mmol/L 98-107 [facility] Creatinine [Mass/volume] in Serum or PlasmaOrdered By: Sly Benson on 03-05-2023 Creatinine [Mass/Vol] 0.91 mg/dL 0.60-1.20 [facility] Eosinophils Auto (Bld) [#/Vo l]Ordered By: Sly Benson on 03-05-2023 Eosinophils (Bld) [#/Vol] 0.1 10*3/uL 0.0-0.45 [facility] Eosinophils/100 WBC Auto (Bl d)Ordered By: Sly Benson on 03-05-2023 Eosinophils/100 WBC (Bld) 1.7 % . [facility] Erythrocyte distribution wid th Auto (RBC) [Ratio]Ordered By: Sly Benson on 03-05-2023 Erythrocyte distribution width (RBC) [Ratio] 14.3 % 11.9-15.3 [facility] Globulin Calc (S) [Mass/Vol] Ordered By: Sly Benson on 03-05-2023 Globulin (S) [Mass/Vol] 2.8 g/dL [facility] Glucose [Mass/volume] in Ser um or PlasmaOrdered By: Sly Benson on 03-05-2023 Glucose [Mass/Vol] 102 mg/dL 70-100 [facility] Comment on above: ADA recommended refe rence rangeRandom Glucose Reference Range is dependent on time and content of last meal. Glucose of more than 200 mg/dL in a nonstressed, ambulatory subject supports the diagnosis of Diabetes Mellitus. Hematocrit Auto (Bld) [Volum e fraction]Ordered By: Sly Benson on 03-05-2023 Hematocrit (Bld) [Volume fraction] 39.8 % 34.0-46.4 [facility] Hemoglobin [Mass/volume] in BloodOrdered By: Sly Benson on 03-05-2023 Hemoglobin (Bld) [Mass/Vol] 13.6 g/dL 11.8-15.4 [facility] Lactate dehydrogenase [Enzym atic activity/volume] in Serum or Plasma by Lactate to pyOrdered By: Sly Benson on 03-05-2023 LDH Lactate to pyruvate reaction [Catalytic activity/Vol] 197 U/L 140-271 [facility] Leukocytes [#/volume] correc margot for nucleated erythrocytes in Blood by Automated counOrdered By: Sly Benson on 03-05-2023 WBC corrected for nucl RBC Auto (Bld) [#/Vol] 6.3 10*3/uL 3.8-11.6 [facility] Lymphocytes Auto (Bld) [#/Vo l]Ordered By: Syl Benson on 03-05-2023 Lymphocytes (Bld) [#/Vol] 1.4 10*3/uL 1.00-4.8 [facility] Lymphocytes/100 WBC Auto (Bl d)Ordered By: Sly Benson on 03-05-2023 Lymphocytes/100 WBC (Bld) 23.1 % . [facility] MCH Auto (RBC) [Entitic mass ]Ordered By: Sly Benson on 03-05-2023 MCH (RBC) [Entitic mass] 30.2 pg 24.7-34.3 [facility] MCHC Auto (RBC) [Mass/Vol]Or dered By: Sly Benson on 03-05-2023 MCHC (RBC) [Mass/Vol] 34.3 g/dL 32.0-35.0 [facility] MCV Auto (RBC) [Entitic vol] Ordered By: Sly Benson on 03-05-2023 MCV (RBC) [Entitic vol] 88.1 fL 80-100 [facility] Monocytes Auto (Bld) [#/Vol] Ordered By: Sly Benson on 03-05-2023 Monocytes (Bld) [#/Vol] 0.5 10*3/uL 0.0-0.8 [facility] Monocytes/100 WBC Auto (Bld) Ordered By: Sly Benosn on 03-05-2023 Monocytes/100 WBC (Bld) 8.4 % . [facility] Neutrophils Auto (Bld) [#/Vo l]Ordered By: Sly Benson on 03-05-2023 Neutrophils (Bld) [#/Vol] 4.1 10*3/uL 1.8-7.7 [facility] Neutrophils/100 WBC Auto (Bl d)Ordered By: Sly Benson on 03-05-2023 Neutrophils/100 WBC (Bld) 66.0 % . [facility] No Panel InformationOrdered By: Sly Benson on 03-05-2023 Adrenocorticotropic Hormone 25.6 pg/mL 7.2-63.3 [facility] Comment on above: ACTH reference inter jamel for samples collected between 7 and10 AM.Performed at: [facility] [id number] Director: Coleman Lacy PhD, Phone: [phone] Estimated GFR (CKD-EPI) > 60.0 mL/Min [facility] Creatinine Clearance (Chem 54.20 [facility] Nucleated erythrocytes [Pres ence] in Blood by Automated countOrdered By: Sly Benson on 03-05-2023 Nucleated RBC Auto Ql (Bld) 0.0 /100{WBC} 0-0.5 [facility] Platelet mean volume Auto (B ld) [Entitic vol]Ordered By: Sly Benson on 03-05-2023 Platelet mean volume (Bld) [Entitic vol] 7.2 fL 6.3-10.7 [facility] Platelets Auto (Bld) [#/Vol] Ordered By: Sly Benson on 03-05-2023 Platelets (Bld) [#/Vol] 190 10*3/uL 150-450 [facility] Potassium [Moles/volume] in Serum or PlasmaOrdered By: Sly Benson on 03-05-2023 Potassium [Moles/Vol] 3.8 mmol/L 3.5-5.1 [facility] Protein [Mass/volume] in Ser um or PlasmaOrdered By: Sly Benson on 03-05-2023 Protein [Mass/Vol] 6.9 g/dL 6.4-8.9 [facility] RBC Auto (Bld) [#/Vol]Ordere d By: Sly Benson on 03-05-2023 RBC (Bld) [#/Vol] 4.51 10*6/uL 3.60-5.00 [facility] Serum or plasma albumin/glob ulin mass ratioOrdered By: Sly Benson on 03-05-2023 Albumin/Globulin [Mass ratio] 1.5 {ratio} [facility] Serum or plasma anion gap de terminationOrdered By: Sly Benson on 03-05-2023 Anion gap [Moles/Vol] 12.8 mmol/L 6.0-15.0 [facility] Sodium [Moles/volume] in Ser um or PlasmaOrdered By: Sly Benson on 03-05-2023 Sodium [Moles/Vol] 141 mmol/L 136-145 [facility] Thyrotropin [Units/volume] i n Serum or PlasmaOrdered By: Sly Benson on 03-05-2023 TSH Qn 2.49 m[IU]/L 0.45-5.33 [facility] Thyroxine (T4) free [Mass/vo lume] in Serum or PlasmaOrdered By: Sly Benson on 03-05-2023 Free T4 [Mass/Vol] 0.94 ng/dL 0.61-1.12 [facility] Urea nitrogen [Mass/volume] in Serum or PlasmaOrdered By: Sly Benson on 03-05-2023 Urea nitrogen [Mass/Vol] 17 mg/dL 7-25 [facility] WBC Auto (Bld) [#/Vol]Ordere d By: Sly Benson on 03-05-2023 WBC (Bld) [#/Vol] 6.3 10*3/uL 3.8-11.6 [facility] Alanine aminotransferase [En zymatic activity/volume] in Serum or PlasmaOrdered By: Sly Benson on 12-30-2022 ALT [Catalytic activity/Vol] 24 U/L 7-52 [facility] Albumin [Mass/volume] in Ser um or Plasma by Bromocresol green (BCG) dye binding methoOrdered By: Sly Benson on 12-30-2022 Albumin BCG dye [Mass/Vol] 4.0 g/dL 3.5-5.7 [facility] Alkaline phosphatase [Enzyma tic activity/volume] in Serum or PlasmaOrdered By: Sly Benson on 12-30-2022 ALP [Catalytic activity/Vol] 108 U/L 34-104 [facility] Aspartate aminotransferase [ Enzymatic activity/volume] in Serum or PlasmaOrdered By: Sly Benson on 12-30-2022 AST [Catalytic activity/Vol] 22 U/L 13-39 [facility] Basophils Auto (Bld) [#/Vol] Ordered By: Sly Benson on 12-30-2022 Basophils (Bld) [#/Vol] 0.0 10*3/uL 0.0-0.2 [facility] Basophils/100 WBC Auto (Bld) Ordered By: Sly Benson on 12-30-2022 Basophils/100 WBC (Bld) 0.5 % . [facility] Bilirubin.total [Mass/volume ] in Serum or PlasmaOrdered By: Sly Benson on 12-30-2022 Bilirubin [Mass/Vol] 0.5 mg/dL 0.3-1.0 [facility] Calcium [Mass/volume] in Ser um or PlasmaOrdered By: Sly Benson on 12-30-2022 Calcium [Mass/Vol] 9.1 mg/dL 8.6-10.3 [facility] Carbon dioxide, total [Moles /volume] in Serum or PlasmaOrdered By: Sly Benson on 12-30-2022 CO2 [Moles/Vol] 30.7 mmol/L 21.0-31.0 [facility] Chloride [Moles/volume] in S mellissa or PlasmaOrdered By: Sly Benson on 12-30-2022 Chloride [Moles/Vol] 104 mmol/L 98-107 [facility] Creatinine [Mass/volume] in Serum or PlasmaOrdered By: Sly Benson on 12-30-2022 Creatinine [Mass/Vol] 0.92 mg/dL 0.60-1.20 [facility] Eosinophils Auto (Bld) [#/Vo l]Ordered By: Sly Benson on 12-30-2022 Eosinophils (Bld) [#/Vol] 0.1 10*3/uL 0.0-0.45 [facility] Eosinophils/100 WBC Auto (Bl d)Ordered By: Sly Benson on 12-30-2022 Eosinophils/100 WBC (Bld) 1.5 % . [facility] Erythrocyte distribution wid th Auto (RBC) [Ratio]Ordered By: Sly Benson on 12-30-2022 Erythrocyte distribution width (RBC) [Ratio] 13.6 % 11.9-15.3 [facility] Globulin Calc (S) [Mass/Vol] Ordered By: Sly Benson on 12-30-2022 Globulin (S) [Mass/Vol] 2.5 g/dL [facility] Glucose [Mass/volume] in Ser um or PlasmaOrdered By: Sly Benson on 12-30-2022 Glucose [Mass/Vol] 102 mg/dL 70-100 [facility] Comment on above: ADA recommended refe rence rangeRandom Glucose Reference Range is dependent on time and content of last meal. Glucose of more than 200 mg/dL in a nonstressed, ambulatory subject supports the diagnosis of Diabetes Mellitus. Hematocrit Auto (Bld) [Volum e fraction]Ordered By: Sly Benson on 12-30-2022 Hematocrit (Bld) [Volume fraction] 39.0 % 34.0-46.4 [facility] Hemoglobin [Mass/volume] in BloodOrdered By: Sly Benson on 12-30-2022 Hemoglobin (Bld) [Mass/Vol] 13.4 g/dL 11.8-15.4 [facility] Lactate dehydrogenase [Enzym atic activity/volume] in Serum or Plasma by Lactate to pyOrdered By: Sly Benson on 12-30-2022 LDH Lactate to pyruvate reaction [Catalytic activity/Vol] 211 U/L 140-271 [facility] Comment on above: Hemolysis is present at a level that could interfere with the result. Leukocytes [#/volume] correc margot for nucleated erythrocytes in Blood by Automated counOrdered By: Sly Benson on 12-30-2022 WBC corrected for nucl RBC Auto (Bld) [#/Vol] 6.8 10*3/uL 3.8-11.6 [facility] Lymphocytes Auto (Bld) [#/Vo l]Ordered By: Sly Benson on 12-30-2022 Lymphocytes (Bld) [#/Vol] 1.6 10*3/uL 1.00-4.8 [facility] Lymphocytes/100 WBC Auto (Bl d)Ordered By: Sly Benson on 12-30-2022 Lymphocytes/100 WBC (Bld) 24.0 % . [facility] MCH Auto (RBC) [Entitic mass ]Ordered By: Sly Benson on 12-30-2022 MCH (RBC) [Entitic mass] 30.0 pg 24.7-34.3 [facility] MCHC Auto (RBC) [Mass/Vol]Or dered By: Sly Benson on 12-30-2022 MCHC (RBC) [Mass/Vol] 34.3 g/dL 32.0-35.0 [facility] MCV Auto (RBC) [Entitic vol] Ordered By: Sly Benson on 12-30-2022 MCV (RBC) [Entitic vol] 87.4 fL 80-100 [facility] Monocytes Auto (Bld) [#/Vol] Ordered By: Sly Benson on 12-30-2022 Monocytes (Bld) [#/Vol] 0.6 10*3/uL 0.0-0.8 [facility] Monocytes/100 WBC Auto (Bld) Ordered By: Sly Benson on 12-30-2022 Monocytes/100 WBC (Bld) 9.0 % . [facility] Neutrophils Auto (Bld) [#/Vo l]Ordered By: Sly Benson on 12-30-2022 Neutrophils (Bld) [#/Vol] 4.4 10*3/uL 1.8-7.7 [facility] Neutrophils/100 WBC Auto (Bl d)Ordered By: Sly Benson on 12-30-2022 Neutrophils/100 WBC (Bld) 65.0 % . [facility] No Panel InformationOrdered By: Sly Benson on 12-30-2022 Adrenocorticotropic Hormone 28.9 pg/mL 7.2-63.3 [facility] Comment on above: ACTH reference inter jamel for samples collected between 7 and10 AM.Performed at: [place] [id number] Director: Coleman Lacy PhD, Phone: [phone] Estimated GFR (CKD-EPI) > 60.0 mL/Min [facility] Creatinine Clearance (Chem 54.88 [facility] Nucleated erythrocytes [Pres ence] in Blood by Automated countOrdered By: Sly Benson on 12-30-2022 Nucleated RBC Auto Ql (Bld) 0.0 /100{WBC} 0-0.5 [facility] Platelet mean volume Auto (B ld) [Entitic vol]Ordered By: Sly Benson on 12-30-2022 Platelet mean volume (Bld) [Entitic vol] 7.4 fL 6.3-10.7 [facility] Platelets Auto (Bld) [#/Vol] Ordered By: Sly Benson on 12-30-2022 Platelets (Bld) [#/Vol] 171 10*3/uL 150-450 [facility] Potassium [Moles/volume] in Serum or PlasmaOrdered By: Sly Benson on 12-30-2022 Potassium [Moles/Vol] See comment 3.5-5.1 [facility] Comment on above: Specimen hemolyzed, redraw requested --- 12/30/22 1036 ---K previously reported as: 3.9 mmol/LHemolysis is present at a level that could interfere with the result. Protein [Mass/volume] in Ser um or PlasmaOrdered By: Sly Benson on 12-30-2022 Protein [Mass/Vol] 6.5 g/dL 6.4-8.9 [facility] RBC Auto (Bld) [#/Vol]Ordere d By: Sly Benson on 12-30-2022 RBC (Bld) [#/Vol] 4.46 10*6/uL 3.60-5.00 [facility] Serum or plasma albumin/glob ulin mass ratioOrdered By: Sly Benson on 12-30-2022 Albumin/Globulin [Mass ratio] 1.6 {ratio} [facility] Serum or plasma anion gap de terminationOrdered By: Sly Benson on 12-30-2022 Anion gap [Moles/Vol] TNP [facility] Comment on above: Test not performed-- - 12/30/22 1038 ---Gap previously reported as: 10.2 mEq/L Sodium [Moles/volume] in Ser um or PlasmaOrdered By: Sly Benson on 12-30-2022 Sodium [Moles/Vol] 141 mmol/L 136-145 [facility] Thyrotropin [Units/volume] i n Serum or PlasmaOrdered By: Sly Benson on 12-30-2022 TSH Qn 2.31 m[IU]/L 0.45-5.33 [facility] Thyroxine (T4) free [Mass/vo lume] in Serum or PlasmaOrdered By: Sly Benson on 12-30-2022 Free T4 [Mass/Vol] 1.03 ng/dL 0.61-1.12 [facility] Urea nitrogen [Mass/volume] in Serum or PlasmaOrdered By: Sly Benson on 12-30-2022 Urea nitrogen [Mass/Vol] 17 mg/dL 7-25 [facility] WBC Auto (Bld) [#/Vol]Ordere d By: Sly Benson on 12-30-2022 WBC (Bld) [#/Vol] 6.8 10*3/uL 3.8-11.6 [facility] Alanine aminotransferase [En zymatic activity/volume] in Serum or PlasmaOrdered By: Sly Benson on 10-31-2022 ALT [Catalytic activity/Vol] 22 U/L 7-52 [facility] Albumin [Mass/volume] in Ser um or Plasma by Bromocresol green (BCG) dye binding methoOrdered By: Sly Benson on 10-31-2022 Albumin BCG dye [Mass/Vol] 4.0 g/dL 3.5-5.7 [facility] Alkaline phosphatase [Enzyma tic activity/volume] in Serum or PlasmaOrdered By: Sly Benson on 10-31-2022 ALP [Catalytic activity/Vol] 98 U/L 34-104 [facility] Aspartate aminotransferase [ Enzymatic activity/volume] in Serum or PlasmaOrdered By: Sly Benson on 10-31-2022 AST [Catalytic activity/Vol] 28 U/L 13-39 [facility] Basophils Auto (Bld) [#/Vol] Ordered By: Sly Benson on 10-31-2022 Basophils (Bld) [#/Vol] 0.1 10*3/uL 0.0-0.2 [facility] Basophils/100 WBC Auto (Bld) Ordered By: Sly Benson on 10-31-2022 Basophils/100 WBC (Bld) 0.9 % . [facility] Bilirubin.total [Mass/volume ] in Serum or PlasmaOrdered By: Sly Benson on 10-31-2022 Bilirubin [Mass/Vol] 0.7 mg/dL 0.3-1.0 [facility] Calcium [Mass/volume] in Ser um or PlasmaOrdered By: Sly Benson on 10-31-2022 Calcium [Mass/Vol] 8.9 mg/dL 8.6-10.3 [facility] Carbon dioxide, total [Moles /volume] in Serum or PlasmaOrdered By: Sly Besnon on 10-31-2022 CO2 [Moles/Vol] 28.6 mmol/L 21.0-31.0 [facility] Chloride [Moles/volume] in S mellissa or PlasmaOrdered By: Sly Benson on 10-31-2022 Chloride [Moles/Vol] 104 mmol/L 98-107 [facility] Creatinine [Mass/volume] in Serum or PlasmaOrdered By: Sly Benson on 10-31-2022 Creatinine [Mass/Vol] 0.93 mg/dL 0.60-1.20 [facility] Eosinophils Auto (Bld) [#/Vo l]Ordered By: Sly Benson on 10-31-2022 Eosinophils (Bld) [#/Vol] 0.1 10*3/uL 0.0-0.45 [facility] Eosinophils/100 WBC Auto (Bl d)Ordered By: Sly Benson on 10-31-2022 Eosinophils/100 WBC (Bld) 1.8 % . [facility] Erythrocyte distribution wid th Auto (RBC) [Ratio]Ordered By: Sly Benson on 10-31-2022 Erythrocyte distribution width (RBC) [Ratio] 15.0 % 11.9-15.3 [facility] Globulin Calc (S) [Mass/Vol] Ordered By: Sly Benson 10-31-2022 Globulin (S) [Mass/Vol] 2.9 g/dL [facility] Glucose [Mass/volume] in Ser um or PlasmaOrdered By: Sly Benson on 10-31-2022 Glucose [Mass/Vol] 100 mg/dL 70-100 [facility] Comment on above: ADA recommended refe rence rangeRandom Glucose Reference Range is dependent on time and content of last meal. Glucose of more than 200 mg/dL in a nonstressed, ambulatory subject supports the diagnosis of Diabetes Mellitus. Hematocrit Auto (Bld) [Volum e fraction]Ordered By: Sly Benson on 10-31-2022 Hematocrit (Bld) [Volume fraction] 41.3 % 34.0-46.4 [facility] Hemoglobin [Mass/volume] in BloodOrdered By: Sly Benson on 10-31-2022 Hemoglobin (Bld) [Mass/Vol] 14.0 g/dL 11.8-15.4 [facility] Lactate dehydrogenase [Enzym atic activity/volume] in Serum or Plasma by Lactate to pyOrdered By: Sly Benson on 10-31-2022 LDH Lactate to pyruvate reaction [Catalytic activity/Vol] 226 U/L 140-271 [facility] Leukocytes [#/volume] correc margot for nucleated erythrocytes in Blood by Automated counOrdered By: Sly Benson on 10-31-2022 WBC corrected for nucl RBC Auto (Bld) [#/Vol] 6.8 10*3/uL 3.8-11.6 [facility] Lymphocytes Auto (Bld) [#/Vo l]Ordered By: Sly Benson on 10-31-2022 Lymphocytes (Bld) [#/Vol] 1.8 10*3/uL 1.00-4.8 [facility] Lymphocytes/100 WBC Auto (Bl d)Ordered By: Sly Benson on 10-31-2022 Lymphocytes/100 WBC (Bld) 26.5 % . [facility] MCH Auto (RBC) [Entitic mass ]Ordered By: Sly Benson on 10-31-2022 MCH (RBC) [Entitic mass] 29.7 pg 24.7-34.3 [facility] MCHC Auto (RBC) [Mass/Vol]Or dered By: Sly Benson on 10-31-2022 MCHC (RBC) [Mass/Vol] 33.8 g/dL 32.0-35.0 [facility] MCV Auto (RBC) [Entitic vol] Ordered By: Sly Benson on 10-31-2022 MCV (RBC) [Entitic vol] 87.8 fL 80-100 [facility] Monocytes Auto (Bld) [#/Vol] Ordered By: Sly Benson on 10-31-2022 Monocytes (Bld) [#/Vol] 0.8 10*3/uL 0.0-0.8 [facility] Monocytes/100 WBC Auto (Bld) Ordered By: Sly Benson on 10-31-2022 Monocytes/100 WBC (Bld) 11.2 % . [facility] Neutrophils Auto (Bld) [#/Vo l]Ordered By: Sly Benson on 10-31-2022 Neutrophils (Bld) [#/Vol] 4.0 10*3/uL 1.8-7.7 [facility] Neutrophils/100 WBC Auto (Bl d)Ordered By: Sly Benson on 10-31-2022 Neutrophils/100 WBC (Bld) 59.6 % . [facility] No Panel InformationOrdered By: Sly Benson on 10-31-2022 Adrenocorticotropic Hormone 35.2 pg/mL 7.2-63.3 [facility] Comment on above: ACTH reference inter jamel for samples collected between 7 and10 AM.Performed at: [employer] [address] Director: Coleman Layc PhD, Phone: [phone] Estimated GFR (CKD-EPI) > 60.0 mL/Min [facility] Creatinine Clearance (Chem 54.88 [facility] Nucleated erythrocytes [Pres ence] in Blood by Automated countOrdered By: Sly Benson on 10-31-2022 Nucleated RBC Auto Ql (Bld) 0.0 /100{WBC} 0-0.5 [facility] Platelet mean volume Auto (B ld) [Entitic vol]Ordered By: Sly Benson on 10-31-2022 Platelet mean volume (Bld) [Entitic vol] 7.1 fL 6.3-10.7 [facility] Platelets Auto (Bld) [#/Vol] Ordered By: Sly Benson on 10-31-2022 Platelets (Bld) [#/Vol] 201 10*3/uL 150-450 [facility] Potassium [Moles/volume] in Serum or PlasmaOrdered By: Sly Benson on 10-31-2022 Potassium [Moles/Vol] 3.8 mmol/L 3.5-5.1 [facility] Protein [Mass/volume] in Ser um or PlasmaOrdered By: Sly Benson on 10-31-2022 Protein [Mass/Vol] 6.9 g/dL 6.4-8.9 [facility] RBC Auto (Bld) [#/Vol]Ordere d By: Sly Benson on 10-31-2022 RBC (Bld) [#/Vol] 4.70 10*6/uL 3.60-5.00 [facility] Serum or plasma albumin/glob ulin mass ratioOrdered By: Sly Benson on 10-31-2022 Albumin/Globulin [Mass ratio] 1.4 {ratio} [facility] Serum or plasma anion gap de terminationOrdered By: Sly Benson on 10-31-2022 Anion gap [Moles/Vol] 12.2 mmol/L 6.0-15.0 [facility] Sodium [Moles/volume] in Ser um or PlasmaOrdered By: Sly Benson on 10-31-2022 Sodium [Moles/Vol] 141 mmol/L 136-145 [facility] Thyrotropin [Units/volume] i n Serum or PlasmaOrdered By: Sly Benson on 10-31-2022 TSH Qn 2.49 m[IU]/L 0.45-5.33 [facility] Thyroxine (T4) free [Mass/vo lume] in Serum or PlasmaOrdered By: Sly Benson on 10-31-2022 Free T4 [Mass/Vol] 1.02 ng/dL 0.61-1.12 [facility] Urea nitrogen [Mass/volume] in Serum or PlasmaOrdered By: Sly Benson on 10-31-2022 Urea nitrogen [Mass/Vol] 19 mg/dL 02-03 [facility] WBC Auto (Bld) [#/Vol]Ordere d By: Sly Benson on 10-31-2022 WBC (Bld) [#/Vol] 6.8 10*3/uL 3.8-11.6 [facility] ACTH, PLASMAon 10-04-2022 ACTH, Plasma 48.7 pg/mL Normal 7.2-63.3 [facility] Comment on above: Result Comment: ACTH reference interval for samples collected between 7 and 10 AM. Performed By: #### A CTHP #### [facility] [address] [place] [address] Dr. Alesia Meyers CBC AUTO DIFFon 10-03-2022 BASO # 0.1 103/ul Normal 0.0-0.1 [facility] Comment on above: Performed By: #### T SH, CMP, LDH #### [facility] [address] [place] [address] Dr. Alesia Meyers Basophils/100 WBC (Bld) 1.2 % Normal 0.2-2.0 [facility] Comment on above: Performed By: #### T SH, CMP, LDH #### [facility] [address] [place] [address] Dr. Alesia Meyers EO # 0.2 103/ul Normal 0.0-0.7 [facility] Comment on above: Performed By: #### T SH, CMP, LDH #### [facility] [address] [place] [address] Dr. Alesia Meyers Eosinophils/100 WBC (Bld) 2.5 % Normal 0.9-7.0 [facility] Comment on above: Performed By: #### T SH, CMP, LDH #### [facility] [address] [place] [address] Dr. Alesia Meyers Erythrocyte distribution width (RBC) [Ratio] 13.9 % Normal 11.0-15.0 [facility] Comment on above: Performed By: #### T SH, CMP, LDH #### [facility] [address] [place] [address] Dr. Alesia Meyers Hematocrit (Bld) [Volume fraction] 41.9 % Normal 36.0-48.0 [facility] Comment on above: Performed By: #### T SH, CMP, LDH #### [facility] [address] [place] [address] Dr. Alesia Meyers Hemoglobin (Bld) [Mass/Vol] 13.6 g/dL Normal 12.0-16.0 [facility] Comment on above: Performed By: #### T SH, CMP, LDH #### [facility] [address] [address] [address] Alesia Meyers IG # 0.04 10e3/ul Critically high 0.00-0.03 [facility] Comment on above: Performed By: #### T SH, CMP, LDH #### [facility] [address] [address] [address] Alesia Meyers IG % 0.7 % Critically high 0.0-0.5 [facility] Comment on above: Performed By: #### T SH, CMP, LDH #### [facility] [address] [place] [address] Dr. Alesia Meyers LYMPH # 2.1 103/ul Normal 1.2-3.8 [facility] Comment on above: Performed By: #### T SH, CMP, LDH #### [facility] [address] [place] [address] Dr. Alesia Meyers Lymphocytes/100 WBC (Bld) 35.5 % Normal 20.5-60.0 [facility] Comment on above: Performed By: #### T SH, CMP, LDH #### [facility] [address] [place] [address] Dr. Alesia Meyers MANUAL DIFF REQ NO Normal [facility] Comment on above: Performed By: #### T SH, CMP, LDH #### [facility] [address] [place] [address] Dr. Alesia Meyers MCH (RBC) [Entitic mass] 28.9 pg Normal 26.7-34.0 [facility] Comment on above: Performed By: #### T SH, CMP, LDH #### [facility] [address] [place] [address] Dr. Alesia Meyers MCHC (RBC) [Mass/Vol] 32.5 g/dL Normal 29.9-35.2 [facility] Comment on above: Performed By: #### T SH, CMP, LDH #### [facility] [address] [place] [address] Dr. Alesia Meyers MCV (RBC) [Entitic vol] 89.1 fL Normal 81.0-99.0 [facility] Comment on above: Performed By: #### T SH, CMP, LDH #### [facility] [address] [place] [address] Dr. Alesia Meyers MONO # 0.6 103/ul Normal 0.3-0.8 [facility] Comment on above: Performed By: #### T SH, CMP, LDH #### [facility] [address] [place] [address] Dr. Alesia Meyers Monocytes/100 WBC (Bld) 10.8 % Normal 1.7-12.0 [facility] Comment on above: Performed By: #### T SH, CMP, LDH #### [facility] [address] [place] [address] Dr. Alesia Meeyrs NEUT # 2.9 103/ul Normal 1.4-6.5 [facility] Comment on above: Performed By: #### T SH, CMP, LDH #### [facility] [address] [place] [address] Dr. Alesia Meyers Neutrophils/100 WBC (Bld) 49.3 % Normal 43.0-75.0 [facility] Comment on above: Performed By: #### T SH, CMP, LDH #### [facility] [address] [place] [address] Dr. Alesia Meyers Platelet mean volume (Bld) [Entitic vol] 8.8 fL Critically low 9.5-13.5 [facility] Comment on above: Performed By: #### T SH, CMP, LDH #### [facility] [address] [place] [address] Dr. Alesia Meyers PLT 226 103/ul Normal 150-450 [facility] Comment on above: Performed By: #### T SH, CMP, LDH #### [facility] [address] [place] [address] Dr. Alesia Meyers RBC 4.70 106/ul Normal 4.20-5.40 [facility] Comment on above: Performed By: #### T SH, CMP, LDH #### [facility] [address] [place] [address] Dr. Alesia Meyers WBC 5.9 103/ul Normal 4.0-11.0 [facility] Comment on above: Performed By: #### T SH, CMP, LDH #### [facility] [address] [place] [address] Dr. Alesia Meyers FREE T4on 10-03-2022 Free T4 [Mass/Vol] 1.02 ng/dL Normal 0.76-1.46 [facility] Comment on above: Performed By: #### F T4 #### [facility] [address] [place] [address] Dr. Alesia Meyers LDHon 10-03-2022 LDH 212 U/L Normal 81-234 [facility] Comment on above: Performed By: #### F T4 #### [facility] [address] [place] [address] Dr. Alesia Meyers PROF 14(COMP METB)on 023 Albumin [Mass/Vol] 3.5 g/dL Normal 3.4-5.0 [facility] Comment on above: Performed By: #### F T4 #### [facility] [address] [place] [address] Dr. Alesia Meyers Albumin/Globulin [Mass ratio] 1.1 {ratio} Normal [facility] Comment on above: Performed By: #### F T4 #### [facility] [address] [place] [address] Dr. Alesia Meyers ALP [Catalytic activity/Vol] 120 U/L Critically high 46-116 [facility] Comment on above: Performed By: #### F T4 #### [facility] [address] [place] [address] Dr. Alesia Meyers ALT [Catalytic activity/Vol] 37 U/L Normal 14-59 [facility] Comment on above: Performed By: #### F T4 #### [facility] [address] [place] [address] Dr. Alesia Meyers Anion gap [Moles/Vol] 11.4 mmol/L Normal [facility] Comment on above: Performed By: #### F T4 #### [facility] [address] [place] [address] Dr. Alesia Meyers AST [Catalytic activity/Vol] 28 U/L Normal 15-37 [facility] Comment on above: Performed By: #### F T4 #### [facility] [address] [place] [address] Dr. Alesia Meyers Bilirubin [Mass/Vol] 0.4 mg/dL Normal 0.2-1.0 [facility] Comment on above: Performed By: #### F T4 #### [facility] [address] [place] [address] Dr. Alesia Meyers Calcium [Mass/Vol] 9.2 mg/dL Normal 8.5-10.1 [facility] Comment on above: Performed By: #### F T4 #### [facility] [address] [place] [address] Dr. Alesia Meyers Chloride [Moles/Vol] 105 mmol/L Normal 98-107 [facility] Comment on above: Performed By: #### F T4 #### [facility] [address] [place] [address] Dr. Alesia Meyers CO2 [Moles/Vol] 30.4 mmol/L Normal 21.0-32.0 [facility] Comment on above: Performed By: #### F T4 #### [facility] [address] [place] [address] Dr. Alesia Meyers Creatinine [Mass/Vol] 0.88 mg/dL Normal 0.55-1.02 [facility] Comment on above: Performed By: #### F T4 #### [facility] [address] [place] [address] Dr. Alesia Meyers EGFR-AF VINCENTIAN >60 Normal >=60 [facility] Comment on above: Performed By: #### F T4 #### [facility] [address] [place] [address] Dr. Alesia Meyers EGFR-NON AF VINCENTIAN >60 Normal >=60 [facility] Comment on above: Performed By: #### F T4 #### [facility] [address] [place] [address] Dr. Alesia Meyers Globulin (S) [Mass/Vol] 3.3 g/dL Normal [facility] Comment on above: Performed By: #### F T4 #### [facility] [address] [address] [address] Alesia Meyers Glucose [Mass/Vol] 104 mg/dL Normal 74-106 [facility] Comment on above: Performed By: #### F T4 #### [facility] [address] [address] [address] Alesia Meyers Potassium [Moles/Vol] 3.8 mmol/L Normal 3.5-5.1 [facility] Comment on above: Performed By: #### F T4 #### [facility] [address] [address] [address] Alesia Meyers Protein [Mass/Vol] 6.8 g/dL Normal 6.4-8.2 [facility] Comment on above: Performed By: #### F T4 #### [facility] [address] [address] [address] Alesia Meyers Sodium [Moles/Vol] 143 mmol/L Normal 136-145 [facility] Comment on above: Performed By: #### F T4 #### [facility] [address] [address] [address] Alesia Meyers Urea nitrogen [Mass/Vol] 19.0 mg/dL Critically high 7.0-18.0 [facility] Comment on above: Performed By: #### F T4 #### [facility] [address] [address] [address] Alesia Meyers Urea nitrogen/Creatinine [Mass ratio] 21.6 mg/mg Normal [facility] Comment on above: Performed By: #### F T4 #### [facility] [address] [address] [address] Alesia Meyers TSHon 10-03-2022 TSH 3.819 uIU/mL Critically high 0.358-3.74 0 [facility] Comment on above: Performed By: #### F T4 #### [facility] [address] [address] [address] Alesia Meyers ACTH, PLASMAon 09-06-2022 ACTH, Plasma 6.3 pg/mL Critically low 7.2-63.3 [facility] Comment on above: Result Comment: ACTH reference interval for samples collected between 7 and 10 AM. Performed By: #### T SH, CMP, LDH #### [facility] [address] [place] [address] Dr. Alesia Meyers CBC AUTO DIFFon 09-05-2022 BASO # 0.0 103/ul Normal 0.0-0.1 [facility] Comment on above: Performed By: #### T SH, CMP, LDH #### [facility] [address] [place] [address] Dr. Alesia Meyers Basophils/100 WBC (Bld) 0.3 % Normal 0.2-2.0 [facility] Comment on above: Performed By: #### T SH, CMP, LDH #### [facility] [address] [place] [address] Dr. Alesia Meyers EO # 0.1 103/ul Normal 0.0-0.7 [facility] Comment on above: Performed By: #### T SH, CMP, LDH #### [facility] [address] [place] [address] Dr. Alesia Meyers Eosinophils/100 WBC (Bld) 0.6 % Critically low 0.9-7.0 [facility] Comment on above: Performed By: #### T SH, CMP, LDH #### [facility] [address] [place] [address] Dr. Alesia Meyers Erythrocyte distribution width (RBC) [Ratio] 14.4 % Normal 11.0-15.0 [facility] Comment on above: Performed By: #### T SH, CMP, LDH #### [facility] [address] [place] [address] Dr. Alesia Meyers Hematocrit (Bld) [Volume fraction] 41.6 % Normal 36.0-48.0 [facility] Comment on above: Performed By: #### T SH, CMP, LDH #### [facility] [address] [place] [address] Dr. Alesia Meyers Hemoglobin (Bld) [Mass/Vol] 13.7 g/dL Normal 12.0-16.0 [facility] Comment on above: Performed By: #### T SH, CMP, LDH #### [facility] [address] [address] [address] Alesia Meyers IG # 0.14 10e3/ul Critically high 0.00-0.03 [facility] Comment on above: Performed By: #### T SH, CMP, LDH #### [facility] [address] [address] [address] Alesia Meyers IG % 1.6 % Critically high 0.0-0.5 [facility] Comment on above: Performed By: #### T SH, CMP, LDH #### [facility] [address] [address] [address] Alesia Meyers LYMPH # 2.7 103/ul Normal 1.2-3.8 [facility] Comment on above: Performed By: #### T SH, CMP, LDH #### [facility] [address] [address] [address] Alesia Meyers Lymphocytes/100 WBC (Bld) 30.2 % Normal 20.5-60.0 [facility] Comment on above: Performed By: #### T SH, CMP, LDH #### [facility] [address] [address] [address] Alesia Meyers MANUAL DIFF REQ NO Normal [facility] Comment on above: Performed By: #### T SH, CMP, LDH #### [facility] [address] [address] [address] Alesia Meyers MCH (RBC) [Entitic mass] 28.7 pg Normal 26.7-34.0 [facility] Comment on above: Performed By: #### T SH, CMP, LDH #### [facility] [address] [address] [address] Alesia Meyers MCHC (RBC) [Mass/Vol] 32.9 g/dL Normal 29.9-35.2 [facility] Comment on above: Performed By: #### T SH, CMP, LDH #### [facility] [address] [address] [address] Alesia Meyers MCV (RBC) [Entitic vol] 87.2 fL Normal 81.0-99.0 [facility] Comment on above: Performed By: #### T SH, CMP, LDH #### [facility] [address] [place] [address] Dr. Alesia Meyers MONO # 1.0 103/ul Critically high 0.3-0.8 [facility] Comment on above: Performed By: #### T SH, CMP, LDH #### [facility] [address] [place] [address] Dr. Alesia Meyers Monocytes/100 WBC (Bld) 10.8 % Normal 1.7-12.0 [facility] Comment on above: Performed By: #### T SH, CMP, LDH #### [facility] [address] [place] [address] Dr. Alesia Meyers NEUT # 5.0 103/ul Normal 1.4-6.5 [facility] Comment on above: Performed By: #### T SH, CMP, LDH #### [facility] [address] [place] [address] Dr. Alesia Meyers Neutrophils/100 WBC (Bld) 56.5 % Normal 43.0-75.0 [facility] Comment on above: Performed By: #### T SH, CMP, LDH #### [facility] [address] [place] [address] Dr. Alesia Meyers Platelet mean volume (Bld) [Entitic vol] 9.1 fL Critically low 9.5-13.5 [facility] Comment on above: Performed By: #### T SH, CMP, LDH #### [facility] [address] [place] [address] Dr. Alesia Meyers PLT 217 103/ul Normal 150-450 [facility] Comment on above: Performed By: #### T SH, CMP, LDH #### [facility] [address] [place] [address] Dr. Alesia Meyers RBC 4.77 106/ul Normal 4.20-5.40 [facility] [facility] Comment on above: Performed By: #### T SH, CMP, LDH #### [facility] [address] [place] [address] Dr. Alesia Meyers WBC 8.8 103/ul Normal 4.0-11.0 [facility] Comment on above: Performed By: #### T SH, CMP, LDH #### [facility] [address] [place] [address] Dr. Alesia Meyers FREE T4on 09-05-2022 Free T4 [Mass/Vol] 1.22 ng/dL Normal 0.76-1.46 [facility] Comment on above: Performed By: #### F T4 #### [facility] [address] [place] [address] Dr. Alesia Meyers LDHon 09-05-2022 LDH 212 U/L Normal 81-234 [facility] Comment on above: Performed By: #### T SH, CMP, LDH #### [facility] [address] [place] [address] Dr. Alesia Meyers PROF 14(COMP METB)on 023 Albumin [Mass/Vol] 3.4 g/dL Normal 3.4-5.0 [facility] Comment on above: Performed By: #### T SH, CMP, LDH #### [facility] [address] [place] [address] Dr. Alesia Meyers Albumin/Globulin [Mass ratio] 1.1 {ratio} Normal [facility] Comment on above: Performed By: #### T SH, CMP, LDH #### [facility] [address] [place] [address] Dr. Alesia Meyers ALP [Catalytic activity/Vol] 101 U/L Normal 46-116 [facility] Comment on above: Performed By: #### T SH, CMP, LDH #### [facility] [address] [place] [address] Dr. Alesia Meyers ALT [Catalytic activity/Vol] 40 U/L Normal 14-59 [facility] Comment on above: Performed By: #### T SH, CMP, LDH #### [facility] [address] [place] [address] Dr. Alesia Meyers Anion gap [Moles/Vol] 10.7 mmol/L Normal [facility] Comment on above: Performed By: #### T SH, CMP, LDH #### [facility] [address] [address] [address] Alesia Meyers AST [Catalytic activity/Vol] 25 U/L Normal 15-37 [facility] Comment on above: Performed By: #### T SH, CMP, LDH #### [facility] [address] [place] [address] Dr. Alesia Meyers Bilirubin [Mass/Vol] 0.4 mg/dL Normal 0.2-1.0 [facility] Comment on above: Performed By: #### T SH, CMP, LDH #### [facility] [address] [place] [address] Dr. Alesia Meyers Calcium [Mass/Vol] 8.7 mg/dL Normal 8.5-10.1 [facility] Comment on above: Performed By: #### T SH, CMP, LDH #### [facility] [address] [place] [address] Dr. Alesia Meyers Chloride [Moles/Vol] 105 mmol/L Normal 98-107 [facility] Comment on above: Performed By: #### T SH, CMP, LDH #### [facility] [address] [place] [address] Dr. Alesia Meyers CO2 [Moles/Vol] 30.0 mmol/L Normal 21.0-32.0 [facility] Comment on above: Performed By: #### T SH, CMP, LDH #### [facility] [address] [place] [address] Dr. Alesia Meyers Creatinine [Mass/Vol] 0.83 mg/dL Normal 0.55-1.02 [facility] Comment on above: Performed By: #### T SH, CMP, LDH #### [facility] [address] [place] [address] Dr. Alesia Meyers EGFR-AF VINCENTIAN >60 Normal >=60 [facility] Comment on above: Performed By: #### T SH, CMP, LDH #### [facility] [address] [place] [address] Dr. Alesia Meyers EGFR-NON AF VINCENTIAN >60 Normal >=60 [facility] Comment on above: Performed By: #### T SH, CMP, LDH #### [facility] [address] [address] [address] Alesia Meyers Globulin (S) [Mass/Vol] 3.2 g/dL Normal [facility] Comment on above: Performed By: #### T SH, CMP, LDH #### [facility] [address] [place] [address] Dr. Alesia Meyers Glucose [Mass/Vol] 96 mg/dL Normal 74-106 [facility] Comment on above: Performed By: #### T SH, CMP, LDH #### [facility] [address] [place] [address] Dr. Alesia Meyers Potassium [Moles/Vol] 3.7 mmol/L Normal 3.5-5.1 [facility] Comment on above: Performed By: #### T SH, CMP, LDH #### [facility] [address] [place] [address] Dr. Alesia Meyers Protein [Mass/Vol] 6.6 g/dL Normal 6.4-8.2 [facility] Comment on above: Performed By: #### T SH, CMP, LDH #### [facility] [address] [place] [address] Dr. Alesia Meyers Sodium [Moles/Vol] 142 mmol/L Normal 136-145 [facility] Comment on above: Performed By: #### T SH, CMP, LDH #### [facility] [address] [place] [address] Dr. Alesia Meyers Urea nitrogen [Mass/Vol] 29.0 mg/dL Critically high 7.0-18.0 [facility] Comment on above: Performed By: #### T SH, CMP, LDH #### [facility] [address] [place] [address] Dr. Alesia Meyers Urea nitrogen/Creatinine [Mass ratio] 34.9 mg/mg Normal [facility] Comment on above: Performed By: #### T SH, CMP, LDH #### [facility] [address] [place] [address] Dr. Alesia Meyers TSHon 09-05-2022 TSH 3.372 uIU/mL Normal 0.358-3.74 0 [facility] Comment on above: Performed By: #### T SH, CMP, LDH #### [facility] [address], [place] [address] Dr. Alesia Meyers Albumin [Mass/volume] in Ser um or PlasmaOrdered By: Sly Benson on 08-08-2022 Albumin [Mass/Vol] 4.0 g/dL 3.2-5.5 [facility] Basophils Auto (Bld) [#/Vol] Ordered By: Sly Benson on 08-08-2022 Basophils (Bld) [#/Vol] 0.1 10*3/uL 0.0-0.2 [facility] Basophils/100 WBC Auto (Bld) Ordered By: Sly Benson on 08-08-2022 Basophils/100 WBC (Bld) 0.7 % . [facility] Creatinine and Glomerular fi ltration rate.predicted panel (S/P/Bld)Ordered By: Sly Benson on 08-08-2022 Creatinine [Mass/Vol] 0.93 mg/dL 0.44-1.03 [facility] Direct bilirubin measurement Ordered By: Sly Benson on 08-08-2022 Bilirubin.direct [Mass/Vol] mg/dL 0.0-0.4 [facility] Eosinophils Auto (Bld) [#/Vo l]Ordered By: Sly Benson on 08-08-2022 Eosinophils (Bld) [#/Vol] 0.2 10*3/uL 0.0-0.45 [facility] Eosinophils/100 WBC Auto (Bl d)Ordered By: Sly Benson on 08-08-2022 Eosinophils/100 WBC (Bld) 2.1 % . [facility] Erythrocyte distribution wid th Auto (RBC) [Ratio]Ordered By: Sly Benson on 08-08-2022 Erythrocyte distribution width (RBC) [Ratio] 14.7 % 11.9-15.3 [facility] Estimated glomerular filtrat ion rate (GFR) non- AmericanOrdered By: Sly Benson on 08-08-2022 GFR/1.73 sq M.predicted among non-blacks MDRD (S/P/Bld) [Vol rate/Area] 59 mL/Min [facility] Globulin Calc (S) [Mass/Vol] Ordered By: Sly Benson on 08-08-2022 Globulin (S) [Mass/Vol] 3.1 g/dL [facility] Hematocrit Auto (Bld) [Volum e fraction]Ordered By: Sly Benson on 08-08-2022 Hematocrit (Bld) [Volume fraction] 42.9 % 34.0-46.4 [facility] Hemoglobin [Mass/volume] in BloodOrdered By: Sly Benson on 08-08-2022 Hemoglobin (Bld) [Mass/Vol] 14.4 g/dL 11.8-15.4 [facility] - Chemistry and C hemistry - challengeOrdered By: Sly Benson on 08-08-2022 Lipase [Catalytic activity/Vol] 33.0 U/L 22-51 [facility] Lactate dehydrogenase measur ement (enzymatic activity/volume)Ordered By: Sly Benson on 08-08-2022 LDH (Unsp spec) [Catalytic activity/Vol] 209 U/L 45-190 [facility] Leukocytes [#/volume] correc margot for nucleated erythrocytes in Blood by Automated counOrdered By: Sly Benson on 08-08-2022 WBC corrected for nucl RBC Auto (Bld) [#/Vol] 7.6 10*3/uL 3.8-11.6 [facility] Lymphocytes Auto (Bld) [#/Vo l]Ordered By: Sly Benson on 08-08-2022 Lymphocytes (Bld) [#/Vol] 2.2 10*3/uL 1.00-4.8 [facility] Lymphocytes/100 WBC Auto (Bl d)Ordered By: Sly Benson on 08-08-2022 Lymphocytes/100 WBC (Bld) 29.6 % . [facility] MCH Auto (RBC) [Entitic mass ]Ordered By: Sly Benson on 08-08-2022 MCH (RBC) [Entitic mass] 29.0 pg 24.7-34.3 [facility] MCHC Auto (RBC) [Mass/Vol]Or dered By: Sly Benson on 08-08-2022 MCHC (RBC) [Mass/Vol] 33.6 g/dL 32.0-35.0 [facility] MCV Auto (RBC) [Entitic vol] Ordered By: Sly Benson on 08-08-2022 MCV (RBC) [Entitic vol] 86.1 fL 80-100 [facility] Monocytes Auto (Bld) [#/Vol] Ordered By: Sly Benson on 08-08-2022 Monocytes (Bld) [#/Vol] 0.7 10*3/uL 0.0-0.8 [facility] Monocytes/100 WBC Auto (Bld) Ordered By: Sly Benson on 08-08-2022 Monocytes/100 WBC (Bld) 9.0 % . [facility] Neutrophils Auto (Bld) [#/Vo l]Ordered By: Sly Benson on 08-08-2022 Neutrophils (Bld) [#/Vol] 4.4 10*3/uL 1.8-7.7 [facility] Neutrophils/100 WBC Auto (Bl d)Ordered By: Sly Benson on 08-08-2022 Neutrophils/100 WBC (Bld) 58.6 % . [facility] No Panel InformationOrdered By: Sly Benson on 08-08-2022 Adrenocorticotropic Hormone 35.2 pg/mL 7.2-63.3 [facility] Comment on above: ACTH reference inter jamel for samples collected between 7 and10 AM.Performed at: - [facility] [id number] Director: Coleman Lacy PhD, Phone: [phone] Estimated GFR () > 60 mL/Min [facility] Comment on above: GFR estimated refere nce range: According to KDOQI guidelines, <60 ml/min/1.73m2 is sufficient to diagnose a patient with chronic kidney disease. Pharmacy Creatinine Clearance (Chem 55.32 [facility] Nucleated erythrocytes [Pres ence] in Blood by Automated countOrdered By: Sly Benson on 08-08-2022 Nucleated RBC Auto Ql (Bld) 0.1 /100{WBC} 0-0.5 [facility] Platelet mean volume Auto (B ld) [Entitic vol]Ordered By: Sly Benson on 08-08-2022 Platelet mean volume (Bld) [Entitic vol] 7.5 fL 6.3-10.7 [facility] Platelets Auto (Bld) [#/Vol] Ordered By: Sly Benson on 08-08-2022 Platelets (Bld) [#/Vol] 216 10*3/uL 150-450 [facility] Protein [Mass/volume] in Ser um or PlasmaOrdered By: Sly Benson on 08-08-2022 Protein [Mass/Vol] 7.1 g/dL 6.1-7.9 [facility] RBC Auto (Bld) [#/Vol]Ordere d By: Sly Benson on 08-08-2022 RBC (Bld) [#/Vol] 4.98 10*6/uL 3.60-5.00 [facility] Random cortisol measurementO rdered By: Sly Benson on 08-08-2022 Cortisol [Mass/Vol] 11.8 ug/dL [facility] Comment on above: Reference range: AM 6 - 24 ug/dl PM <10 ug/dl Serum or plasma alanine castro otransferase measurement without P-5'-P (enzymatic activiOrdered By: Sly Benson on 08-08-2022 ALT No additional P-5'-P [Catalytic activity/Vol] 32 U/L 10-60 [facility] Serum or plasma albumin/glob ulin mass ratioOrdered By: Sly Benson on 08-08-2022 Albumin/Globulin [Mass ratio] 1.3 {ratio} [facility] Serum or plasma alkaline halle sphatase measurement (enzymatic activity/volume)Ordered By: Sly Benson on 08-08-2022 ALP [Catalytic activity/Vol] 99 U/L 32-92 [facility] Serum or plasma anion gap de terminationOrdered By: Sly Benson on 08-08-2022 Anion gap [Moles/Vol] 11.2 mmol/L 6.0-15.0 [facility] Serum or plasma aspartate am inotransferase measurement (enzymatic activity/volume)Ordered By: Sly Benson on 08-08-2022 AST [Catalytic activity/Vol] 34 U/L 10-42 [facility] Serum or plasma calcium diamond urement (mass/volume)Ordered By: Sly Benson on 08-08-2022 Calcium [Mass/Vol] 9.3 mg/dL 8.2-10.2 [facility] Serum or plasma chloride zora surement (moles/volume)Ordered By: Sly Benson on 08-08-2022 Chloride [Moles/Vol] 102 mmol/L 95-114 [facility] Serum or plasma glucose diamond urement (mass/volume)Ordered By: Sly Benson on 08-08-2022 Glucose [Mass/Vol] 101 mg/dL 70-100 [facility] Comment on above: ADA recommended refe rence rangeRandom Glucose Reference Range is dependent on time and content of last meal. Glucose of more than 200 mg/dL in a nonstressed, ambulatory subject supports the diagnosis of Diabetes Mellitus. Serum or plasma non-glucuron idated bilirubin measurement (mass/volume)Ordered By: Sly Benson on 08-08-2022 Bilirubin.indirect [Mass/Vol] TNP [facility] Comment on above: Test not performed Serum or plasma potassium me asurement (moles/volume)Ordered By: Sly Benson on 08-08-2022 Potassium [Moles/Vol] 3.3 mmol/L 3.5-5.1 [facility] Serum or plasma sodium measu rement (moles/volume)Ordered By: Sly Benson on 08-08-2022 Sodium [Moles/Vol] 139 mmol/L 136-146 [facility] Serum or plasma total biliru bin measurement (mass/volume)Ordered By: Sly Benson on 08-08-2022 Bilirubin [Mass/Vol] 0.7 mg/dL 0.3-1.2 [facility] Serum or plasma total carbon dioxide measurement (moles/volume)Ordered By: Sly Benson on 08-08-2022 CO2 [Moles/Vol] 29.1 mmol/L 22.0-30.0 [facility] Serum or plasma urea nitroge n measurement (mass/volume)Ordered By: Sly Benson on 08-08-2022 Urea nitrogen [Mass/Vol] 18 mg/dL 04-04 [facility] TSH DL <= 0.005 mIU/L QnOrde red By: Sly Benson on 08-08-2022 TSH Qn 2.80 m[IU]/L 0.45-5.33 [facility] Thyroxine (T4) free [Mass/vo lume] in Serum or PlasmaOrdered By: Sly Benson on 08-08-2022 Free T4 [Mass/Vol] 0.99 ng/dL 0.61-1.12 [facility] WBC Auto (Bld) [#/Vol]Ordere d By: Sly Benson on 08-08-2022 WBC (Bld) [#/Vol] 7.6 10*3/uL 3.8-11.6 [facility] ACTH, PLASMAon 07-22-2022 ACTH, Plasma 29.5 pg/mL Normal 7.2-63.3 [facility] Comment on above: Result Comment: ACTH reference interval for samples collected between 7 and 10 AM. Performed By: #### A CTHP #### [facility] [address] [address] [address] Alesia Meyers CORTISOLon 07-22-2022 Cortisol 10.0 ug/dL Normal [facility] Comment on above: Result Comment: Melvin isol AM 6.2 - 19.4 Cortisol PM 2.3 - 11.9 Performed By: #### T SH, CMP, LDH #### [facility] [address] [address] [address] Alesia Meyers CBC AUTO DIFFon 07-21-2022 BASO # 0.0 103/ul Normal 0.0-0.1 [facility] Comment on above: Performed By: #### T SH, CMP, LDH #### [facility] [address] [address] [address] Alesia Meyers Basophils/100 WBC (Bld) 0.6 % Normal 0.2-2.0 [facility] Comment on above: Performed By: #### T SH, CMP, LDH #### [facility] [address] [place] [address] Dr. Alesia Meyers EO # 0.1 103/ul Normal 0.0-0.7 [facility] Comment on above: Performed By: #### T SH, CMP, LDH #### [facility] [address] [place] [address] Dr. Alesia Meyers Eosinophils/100 WBC (Bld) 1.8 % Normal 0.9-7.0 [facility] Comment on above: Performed By: #### T SH, CMP, LDH #### [facility] [address] [place] [address] Dr. Alesia Meyers Erythrocyte distribution width (RBC) [Ratio] 13.2 % Normal 11.0-15.0 [facility] Comment on above: Performed By: #### T SH, CMP, LDH #### [facility] [address] [place] [address] Dr. Alesia Meyers Hematocrit (Bld) [Volume fraction] 40.4 % Normal 36.0-48.0 [facility] Comment on above: Performed By: #### T SH, CMP, LDH #### [facility] [address] [place] [address] Dr. Alesia Meyers Hemoglobin (Bld) [Mass/Vol] 14.1 g/dL Normal 12.0-16.0 [facility] Comment on above: Performed By: #### T SH, CMP, LDH #### [facility] [address] [place] [address] Dr. Alesia Meyers IG # 0.03 10e3/ul Normal 0.00-0.03 [facility] Comment on above: Performed By: #### T SH, CMP, LDH #### [facility] [address] [place] [address] Dr. Alesia Meyers IG % 0.4 % Normal 0.0-0.5 [facility] Comment on above: Performed By: #### T SH, CMP, LDH #### [facility] [address] [place] [address] Dr. Alesia Meyers LYMPH # 1.9 103/ul Normal 1.2-3.8 [facility] Comment on above: Performed By: #### T SH, CMP, LDH #### [facility] [address] [place] [address] Dr. Alesia Meyers Lymphocytes/100 WBC (Bld) 27.5 % Normal 20.5-60.0 [facility] Comment on above: Performed By: #### T SH, CMP, LDH #### [facility] [address] [place] [address] Dr. Alesia Meyers MANUAL DIFF REQ NO Normal [facility] Comment on above: Performed By: #### T SH, CMP, LDH #### [facility] [address] [place] [address] Dr. Alesia Meyers MCH (RBC) [Entitic mass] 28.4 pg Normal 26.7-34.0 [facility] Comment on above: Performed By: #### T SH, CMP, LDH #### [facility] [address] [place] [address] Dr. Alesia Meyers MCHC (RBC) [Mass/Vol] 34.9 g/dL Normal 29.9-35.2 [facility] Comment on above: Performed By: #### T SH, CMP, LDH #### [facility] [address] [place] [address] Dr. Alesia Meyers MCV (RBC) [Entitic vol] 81.5 fL Normal 81.0-99.0 [facility] Comment on above: Performed By: #### T SH, CMP, LDH #### [facility] [address] [place] [address] Dr. Alesia Meyers MONO # 0.3 103/ul Normal 0.3-0.8 [facility] Comment on above: Performed By: #### T SH, CMP, LDH #### [facility] [address] [place] [address] Dr. Alesia Meyers Monocytes/100 WBC (Bld) 4.9 % Normal 1.7-12.0 [facility] Comment on above: Performed By: #### T SH, CMP, LDH #### [facility] [address] [address] [address] Alesia Meyers NEUT # 4.4 103/ul Normal 1.4-6.5 [facility] Comment on above: Performed By: #### T SH, CMP, LDH #### [facility] [address] [place] [address] Dr. Alesia Meyers Neutrophils/100 WBC (Bld) 64.8 % Normal 43.0-75.0 [facility] Comment on above: Performed By: #### T SH, CMP, LDH #### [facility] [address] [place] [address] Dr. Alesia Meyers Platelet mean volume (Bld) [Entitic vol] 8.8 fL Critically low 9.5-13.5 [facility] Comment on above: Performed By: #### T SH, CMP, LDH #### [facility] [address] [place] [address] Dr. Alesia Meyers PLT 214 103/ul Normal 150-450 [facility] Comment on above: Performed By: #### T SH, CMP, LDH #### [facility] [address] [place] [address] Dr. Alesia Meyers RBC 4.96 106/ul Normal 4.20-5.40 [facility] Comment on above: Performed By: #### T SH, CMP, LDH #### [facility] [address] [place] [address] Dr. Alesia Meyers WBC 6.8 103/ul Normal 4.0-11.0 [facility] Comment on above: Performed By: #### T SH, CMP, LDH #### [facility] [address] [place] [address] Dr. Alesia Meyers FREE T4on 07-21-2022 Free T4 [Mass/Vol] 1.06 ng/dL Normal 0.76-1.46 [facility] Comment on above: Performed By: #### T SH, CMP, LDH #### [facility] [address] [place] [address] Dr. Alesia Meyers LDHon 07-21-2022 LDH 243 U/L Critically high 81-234 [facility] Comment on above: Performed By: #### T SH, CMP, LDH #### [facility] [address] [place] [address] Dr. Alesia Meyers LIPASEon 07-21-2022 Lipase [Catalytic activity/Vol] 73.0 U/L Normal 73.0-393.0 [facility] Comment on above: Performed By: #### T SH, CMP, LDH #### [facility] [address] [place] [address] Dr. Alesia Meyers LIVER PROFILEon 07-21-2022 Albumin [Mass/Vol] 3.5 g/dL Normal 3.4-5.0 [facility] Comment on above: Performed By: #### T SH, CMP, LDH #### [facility] [address] [place] [address] Dr. Alesia Meyers Albumin/Globulin [Mass ratio] 0.9 {ratio} Normal [facility] Comment on above: Performed By: #### T SH, CMP, LDH #### [facility] [address] [place] [address] Dr. Alesia Meyers ALP [Catalytic activity/Vol] 130 U/L Critically high 46-116 [facility] Comment on above: Performed By: #### T SH, CMP, LDH #### [facility] [address] [place] [address] Dr. Alesia Meyers ALT [Catalytic activity/Vol] 35 U/L Normal 14-59 [facility] Comment on above: Performed By: #### T SH, CMP, LDH #### [facility] [address] [place] [address] Dr. Alesia Meyers AST [Catalytic activity/Vol] 37 U/L Normal 15-37 [facility] Comment on above: Performed By: #### T SH, CMP, LDH #### [facility] [address] [place] [address] Dr. Alesia Meyers BILI, CONJUGATED 0.1 mg/dL Normal 0.0-0.2 [facility] Comment on above: Performed By: #### T SH, CMP, LDH #### [facility] [address] [place] [address] Dr. Alesia Meyers Bilirubin [Mass/Vol] 0.4 mg/dL Normal 0.2-1.0 [facility] Comment on above: Performed By: #### T SH, CMP, LDH #### [facility] [address] [place] [address] Dr. Alesia Meyers Globulin (S) [Mass/Vol] 3.8 g/dL Normal [facility] Comment on above: Performed By: #### T SH, CMP, LDH #### [facility] [address] [place] [address] Dr. Alesia Meyers Protein [Mass/Vol] 7.3 g/dL Normal 6.4-8.2 [facility] Comment on above: Performed By: #### T SH, CMP, LDH #### [facility] [address] [place] [address] Dr. Alesia Meyers PROF CHEM 8 (BAS METB)on Anion gap [Moles/Vol] 12.1 mmol/L Normal [facility] Comment on above: Performed By: #### T SH, CMP, LDH #### [facility] [address] [place] [address] Dr. Alesia Meyers Calcium [Mass/Vol] 9.2 mg/dL Normal 8.5-10.1 [facility] Comment on above: Performed By: #### T SH, CMP, LDH #### [facility] [address] [place] [address] Dr. Alesia Meyers Chloride [Moles/Vol] 102 mmol/L Normal 98-107 [facility] Comment on above: Performed By: #### T SH, CMP, LDH #### [facility] [address] [place] [address] Dr. Alesia Meyers CO2 [Moles/Vol] 30.5 mmol/L Normal 21.0-32.0 [facility] Comment on above: Performed By: #### T SH, CMP, LDH #### [facility] [address] [place] [address] Dr. Alesia Meyers Creatinine [Mass/Vol] 0.87 mg/dL Normal 0.55-1.02 [facility] Comment on above: Performed By: #### T SH, CMP, LDH #### [facility] [address] [address] [address] Alesia Meyers EGFR-AF VINCENTIAN >60 Normal >=60 [facility] Comment on above: Performed By: #### T SH, CMP, LDH #### [facility] [address] [address] [address] Alesia Meyers EGFR-NON AF VINCENTIAN >60 Normal >=60 [facility] Comment on above: Performed By: #### T SH, CMP, LDH #### [facility] [address] [address] [address] Alesia Meyers Glucose [Mass/Vol] 178 mg/dL Critically high 74-106 [facility] Comment on above: Performed By: #### T SH, CMP, LDH #### [facility] [address] [address] [address] Alesia Meyers Potassium [Moles/Vol] 3.6 mmol/L Normal 3.5-5.1 [facility] Comment on above: Performed By: #### T SH, CMP, LDH #### [facility] [address] [place] [address] Dr. Alesia Meyers Sodium [Moles/Vol] 141 mmol/L Normal 136-145 [facility] Comment on above: Performed By: #### T SH, CMP, LDH #### [facility] [address] [address] [address] Alesia Meyers Urea nitrogen [Mass/Vol] 16.0 mg/dL Normal 7.0-18.0 [facility] Comment on above: Performed By: #### T SH, CMP, LDH #### [facility] [address] [place] [address] Dr. Alesia Meyers Urea nitrogen/Creatinine [Mass ratio] 18.4 mg/mg Normal [facility] Comment on above: Performed By: #### T SH, CMP, LDH #### [facility] [address] [place] [address] Dr. Alesia Meyers TSHon 07-21-2022 TSH 2.383 uIU/mL Normal 0.358-3.74 0 [facility] Comment on above: Performed By: #### T SH, CMP, LDH #### [facility] [address] [place] [address] Dr. Alesia Meyers ACTH, PLASMAon 06-21-2022 ACTH, Plasma 30.4 pg/mL Normal 7.2-63.3 [facility] Comment on above: Result Comment: ACTH reference interval for samples collected between 7 and 10 AM. Performed By: #### T SH, CMP, LDH #### [facility] [address] [address] [address] Alesia Meyers CORTISOLon 06-21-2022 Cortisol 16.9 ug/dL Normal [facility] Comment on above: Result Comment: Melvin isol AM 6.2 - 19.4 Cortisol PM 2.3 - 11.9 Performed By: #### C ORTISO #### [facility] [address] [place] [address] Dr. Alesia Meyers CBC AUTO DIFFon 06-20-2022 BASO # 0.0 103/ul Normal 0.0-0.1 [facility] Comment on above: Performed By: #### T SH, CMP, LDH #### [facility] [address] [place] [address] Dr. Alesia Meyers Basophils/100 WBC (Bld) 0.5 % Normal 0.2-2.0 [facility] Comment on above: Performed By: #### T SH, CMP, LDH #### [facility] [address] [place] [address] Dr. Alesia Meyers EO # 0.1 103/ul Normal 0.0-0.7 [facility] Comment on above: Performed By: #### T SH, CMP, LDH #### [facility] [address] [place] [address] Dr. Alesia Meyers Eosinophils/100 WBC (Bld) 2.1 % Normal 0.9-7.0 [facility] Comment on above: Performed By: #### T SH, CMP, LDH #### [facility] [address] [place] [address] Dr. Alesia Meyers Erythrocyte distribution width (RBC) [Ratio] 13.3 % Normal 11.0-15.0 [facility] Comment on above: Performed By: #### T SH, CMP, LDH #### [facility] [address] [place] [address] Dr. Alesia Meyers Hematocrit (Bld) [Volume fraction] 40.2 % Normal 36.0-48.0 [facility] Comment on above: Performed By: #### T SH, CMP, LDH #### [facility] [address] [place] [address] Dr. Alesia Meyers Hemoglobin (Bld) [Mass/Vol] 13.5 g/dL Normal 12.0-16.0 [facility] Comment on above: Performed By: #### T SH, CMP, LDH #### [facility] [address] [place] [address] Dr. Alesia Meyers IG # 0.02 10e3/ul Normal 0.00-0.03 [facility] Comment on above: Performed By: #### T SH, CMP, LDH #### [facility] [address] [place] [address] Dr. Alesia Meyers IG % 0.3 % Normal 0.0-0.5 [facility] Comment on above: Performed By: #### T SH, CMP, LDH #### [facility] [address] [place] [address] Dr. Alesia Meyers LYMPH # 2.3 103/ul Normal 1.2-3.8 [facility] Comment on above: Performed By: #### T SH, CMP, LDH #### [facility] [address] [place] [address] Dr. Alesia Meyers Lymphocytes/100 WBC (Bld) 35.0 % Normal 20.5-60.0 [facility] Comment on above: Performed By: #### T SH, CMP, LDH #### [facility] [address] [place] [address] Dr. Alesia Meyers MANUAL DIFF REQ NO Normal [facility] Comment on above: Performed By: #### T SH, CMP, LDH #### [facility] [address] [place] [address] Dr. Alesia Meyers MCH (RBC) [Entitic mass] 29.3 pg Normal 26.7-34.0 [facility] Comment on above: Performed By: #### T SH, CMP, LDH #### [facility] [address] [place] [address] Dr. Alesia Meyers MCHC (RBC) [Mass/Vol] 33.6 g/dL Normal 29.9-35.2 [facility] Comment on above: Performed By: #### T SH, CMP, LDH #### [facility] [address] [place] [address] Dr. Alesia Meyers MCV (RBC) [Entitic vol] 87.2 fL Normal 81.0-99.0 [facility] Comment on above: Performed By: #### T SH, CMP, LDH #### [facility] [address] [place] [address] Dr. Alesia Meyers MONO # 0.6 103/ul Normal 0.3-0.8 [facility] Comment on above: Performed By: #### T SH, CMP, LDH #### [facility] [address] [place] [address] Dr. Alesia Meyers Monocytes/100 WBC (Bld) 8.8 % Normal 1.7-12.0 [facility] Comment on above: Performed By: #### T SH, CMP, LDH #### [facility] [address] [place] [address] Dr. Alesia Meyers NEUT # 3.5 103/ul Normal 1.4-6.5 [facility] Comment on above: Performed By: #### T SH, CMP, LDH #### [facility] [address] [place] [address] Dr. Alesia Meyers Neutrophils/100 WBC (Bld) 53.3 % Normal 43.0-75.0 [facility] Comment on above: Performed By: #### T SH, CMP, LDH #### [facility] [address] [place] [address] Dr. Alesia Meyers Platelet mean volume (Bld) [Entitic vol] 9.0 fL Critically low 9.5-13.5 [facility] Comment on above: Performed By: #### T SH, CMP, LDH #### [facility] [address] [place] [address] Dr. Alesia Meyers PLT 230 103/ul Normal 150-450 [facility] Comment on above: Performed By: #### T SH, CMP, LDH #### [facility] [address] [address] [address] Alesia Meyers RBC 4.61 106/ul Normal 4.20-5.40 [facility] Comment on above: Performed By: #### T SH, CMP, LDH #### [facility] [address] [place] [address] Dr. Alesia Meyers WBC 6.6 103/ul Normal 4.0-11.0 [facility] Comment on above: Performed By: #### T SH, CMP, LDH #### [facility] [address] [place] [address] Dr. Alesia Meyers FREE T4on 06-20-2022 Free T4 [Mass/Vol] 1.15 ng/dL Normal 0.76-1.46 [facility] Comment on above: Performed By: #### T SH, CMP, LDH #### [facility] [address] [address] [address] Alesia Meyers LDHon 06-20-2022 LDH 224 U/L Normal 81-234 [facility] Comment on above: Performed By: #### T SH, CMP, LDH #### [facility] [address] [place] [address] Dr. Alesia Meyers LIPASEon 06-20-2022 Lipase [Catalytic activity/Vol] 78.0 U/L Normal 73.0-393.0 [facility] Comment on above: Performed By: #### T SH, CMP, LDH #### [facility] [address] [place] [address] Dr. Alesia Meyers LIPID PROFILEon 06-20-2022 CHOL-HDL RATIO NORM SEE BELOW Normal [facility] Comment on above: Result Comment: 3.3 - 4.4 LOW RISK 4.4 - 7.1 AVERAGE RISK 7.1 - 11.0 MODERATE RISK >11.0 HIGH RISK Performed By: #### T SH, CMP, LDH #### [facility] [address] [address] [address] Alesia Meyers Cholesterol [Mass/Vol] 153 mg/dL Normal <=200 [facility] Comment on above: Performed By: #### T SH, CMP, LDH #### [facility] [address] [address] [address] Alesia Meyers Cholesterol in HDL [Mass/Vol] 80 mg/dL Critically high 40-60 [facility] Comment on above: Performed By: #### T SH, CMP, LDH #### [facility] [address] [address] [address] Alesia Meyers Cholesterol in LDL [Mass/Vol] 52.8 mg/dL Normal [facility] Comment on above: Performed By: #### T SH, CMP, LDH #### [facility] [address] [address] [address] Alesia Meyers Cholesterol.total/Chol esterol in HDL [Mass ratio] 1.9 {ratio} Normal [facility] Comment on above: Performed By: #### T SH, CMP, LDH #### [facility] [address] [address] [address] Alesia Meyers HDL NORMAL > or = 60 mg/dl - LO W CARDIOVASCULAR RISK <40 mg/dl - HIGH CARDIOVASCULAR RISK Normal [facility] Comment on above: Performed By: #### T SH, CMP, LDH #### [facility] [address] [address] [address] Alesia Meyers LDL CALC NORMAL SEE BELOW Normal [facility] Comment on above: Result Comment: <100 mg/dl OPTIMAL 100 - 129 mg/dl NEAR OR ABOVE OPTIMAL 130 - 159 mg/dl BORDERLINE HIGH 160 - 189 mg/dl HIGH >190 mg/dl VERY HIGH Performed By: #### T SH, CMP, LDH #### [facility] [address] [address] [address] Alesia Meyers Triglyceride [Mass/Vol] 101 mg/dL Normal <=150 [facility] Comment on above: Performed By: #### T SH, CMP, LDH #### [facility] [address] [address] [address] Alesia Meyers VLDL CALC 20.2 mg/dL Normal [facility] Comment on above: Performed By: #### T SH, CMP, LDH #### [facility] [address] [place] [address] Dr. Alesia Meyers LIVER PROFILEon 06-20-2022 Albumin [Mass/Vol] 3.5 g/dL Normal 3.4-5.0 [facility] Comment on above: Performed By: #### T SH, CMP, LDH #### [facility] [address] [place] [address] Dr. Alesia Meyers Albumin/Globulin [Mass ratio] 0.9 {ratio} Normal [facility] Comment on above: Performed By: #### T SH, CMP, LDH #### [facility] [address] [place] [address] Dr. Alesia Meyers ALP [Catalytic activity/Vol] 109 U/L Normal 46-116 [facility] Comment on above: Performed By: #### T SH, CMP, LDH #### [facility] [address] [place] [address] Dr. Alesia Meyers ALT [Catalytic activity/Vol] 39 U/L Normal 14-59 [facility] Comment on above: Performed By: #### T SH, CMP, LDH #### [facility] [address] [place] [address] Dr. Alesia Meyers AST [Catalytic activity/Vol] 34 U/L Normal 15-37 [facility] Comment on above: Performed By: #### T SH, CMP, LDH #### [facility] [address] [place] [address] Dr. Alesia Meyers BILI, CONJUGATED 0.1 mg/dL Normal 0.0-0.2 [facility] Comment on above: Performed By: #### T SH, CMP, LDH #### [facility] [address] [place] [address] Dr. Alesia Meyers Bilirubin [Mass/Vol] 0.4 mg/dL Normal 0.2-1.0 [facility] Comment on above: Performed By: #### T SH, CMP, LDH #### [facility] [address] [address] [address] Alesia Meyers Globulin (S) [Mass/Vol] 3.7 g/dL Normal [facility] Comment on above: Performed By: #### T SH, CMP, LDH #### [facility] [address] [place] [address] Dr. Alesia Meyers Protein [Mass/Vol] 7.2 g/dL Normal 6.4-8.2 [facility] Comment on above: Performed By: #### T SH, CMP, LDH #### [facility] [address] [place] [address] Dr. Alesia Meyers PROF CHEM 8 (BAS METB)on Anion gap [Moles/Vol] 11.4 mmol/L Normal [facility] Comment on above: Performed By: #### T SH, CMP, LDH #### [facility] [address] [place] [address] Dr. Alesia Meyers Calcium [Mass/Vol] 9.1 mg/dL Normal 8.5-10.1 [facility] Comment on above: Performed By: #### T SH, CMP, LDH #### [facility] [address] [place] [address] Dr. Alesia Meyers Chloride [Moles/Vol] 103 mmol/L Normal 98-107 [facility] Comment on above: Performed By: #### T SH, CMP, LDH #### [facility] [address] [place] [address] Dr. Alesia Meyers CO2 [Moles/Vol] 31.2 mmol/L Normal 21.0-32.0 [facility] Comment on above: Performed By: #### T SH, CMP, LDH #### [facility] [address] [place] [address] Dr. Alesia Meyers Creatinine [Mass/Vol] 0.90 mg/dL Normal 0.55-1.02 [facility] Comment on above: Performed By: #### T SH, CMP, LDH #### [facility] [address] [address] [address] Alesia Meyers EGFR-AF VINCENTIAN >60 Normal >=60 [facility] Comment on above: Performed By: #### T SH, CMP, LDH #### [facility] [address] [address] [address] Alesia Meyers EGFR-NON AF VINCENTIAN >60 Normal >=60 [facility] Comment on above: Performed By: #### T SH, CMP, LDH #### [facility] [address] [address] [address] Alesia Meyers Glucose [Mass/Vol] 105 mg/dL Normal 74-106 [facility] Comment on above: Performed By: #### T SH, CMP, LDH #### [facility] [address] [address] [address] Alesia Meyers Potassium [Moles/Vol] 3.6 mmol/L Normal 3.5-5.1 [facility] Comment on above: Performed By: #### T SH, CMP, LDH #### [facility] [address] [address] [address] Alesia Meyers Sodium [Moles/Vol] 142 mmol/L Normal 136-145 [facility] Comment on above: Performed By: #### T SH, CMP, LDH #### [facility] [address] [address] [address] Alesia Meyers Urea nitrogen [Mass/Vol] 22.0 mg/dL Critically high 7.0-18.0 [facility] Comment on above: Performed By: #### T SH, CMP, LDH #### [facility] [address] [address] [address] Alesia Meyers Urea nitrogen/Creatinine [Mass ratio] 24.4 mg/mg Normal [facility] Comment on above: Performed By: #### T SH, CMP, LDH #### [facility] [address] [address] [address] Alesia Meyers TSHon 06-20-2022 TSH 3.302 uIU/mL Normal 0.358-3.74 0 [facility] Comment on above: Performed By: #### T SH, CMP, LDH #### [facility] [address] [place] [address] Dr. Alesia Meyers ACTH, PLASMAon 05-31-2022 ACTH, Plasma 28.5 pg/mL Normal 7.2-63.3 [facility] Comment on above: Result Comment: ACTH reference interval for samples collected between 7 and 10 AM. Performed By: #### T SH, CMP, LDH #### [facility] [address] [place] [address] Dr. Alesia Meyers CORTISOLon 05-31-2022 Cortisol 17.2 ug/dL Normal [facility] Comment on above: Result Comment: Melvin isol AM 6.2 - 19.4 Cortisol PM 2.3 - 11.9 Performed By: #### T SH, CMP, LDH #### [facility] [address] [place] [address] Dr. Alesia Meyers CBC AUTO DIFFon 05-30-2022 BASO # 0.0 103/ul Normal 0.0-0.1 [facility] Comment on above: Performed By: #### T SH, CMP, LDH #### [facility] [address] [place] [address] Dr. Alesia Meyers Basophils/100 WBC (Bld) 0.4 % Normal 0.2-2.0 [facility] Comment on above: Performed By: #### T SH, CMP, LDH #### [facility] [address] [place] [address] Dr. Alesia Meyers EO # 0.1 103/ul Normal 0.0-0.7 [facility] Comment on above: Performed By: #### T SH, CMP, LDH #### [facility] [address] [place] [address] Dr. Alesia Meyers Eosinophils/100 WBC (Bld) 2.1 % Normal 0.9-7.0 [facility] Comment on above: Performed By: #### T SH, CMP, LDH #### [facility] [address] [place] [address] Dr. Alesia Meyers Erythrocyte distribution width (RBC) [Ratio] 12.9 % Normal 11.0-15.0 [facility] Comment on above: Performed By: #### T SH, CMP, LDH #### [facility] [address] [place] [address] Dr. Alesia Meyers Hematocrit (Bld) [Volume fraction] 41.0 % Normal 36.0-48.0 [facility] Comment on above: Performed By: #### T SH, CMP, LDH #### [facility] [address] [place] [address] Dr. Alesia Meyers Hemoglobin (Bld) [Mass/Vol] 13.5 g/dL Normal 12.0-16.0 [facility] Comment on above: Performed By: #### T SH, CMP, LDH #### [facility] [address] [place] [address] Dr. Alesia Meyers IG # 0.02 10e3/ul Normal 0.00-0.03 [facility] Comment on above: Performed By: #### T SH, CMP, LDH #### [facility] [address] [place] [address] Dr. Alesia Meyers IG % 0.3 % Normal 0.0-0.5 [facility] Comment on above: Performed By: #### T SH, CMP, LDH #### [facility] [address] [place] [address] Dr. Alesia Meyers LYMPH # 2.1 103/ul Normal 1.2-3.8 [facility] Comment on above: Performed By: #### T SH, CMP, LDH #### [facility] [address] [place] [address] Dr. Alesia Meyers Lymphocytes/100 WBC (Bld) 30.5 % Normal 20.5-60.0 [facility] Comment on above: Performed By: #### T SH, CMP, LDH #### [facility] [address] [place] [address] Dr. Alesia Meyers MANUAL DIFF REQ NO Normal [facility] Comment on above: Performed By: #### T SH, CMP, LDH #### [facility] [address] [address] [address] Alesia Meyers MCH (RBC) [Entitic mass] 28.6 pg Normal 26.7-34.0 [facility] Comment on above: Performed By: #### T SH, CMP, LDH #### [facility] [address] [place] [address] Dr. Alesia Meyers MCHC (RBC) [Mass/Vol] 32.9 g/dL Normal 29.9-35.2 [facility] Comment on above: Performed By: #### T SH, CMP, LDH #### [facility] [address] [place] [address] Dr. Alesia Meyers MCV (RBC) [Entitic vol] 86.9 fL Normal 81.0-99.0 [facility] Comment on above: Performed By: #### T SH, CMP, LDH #### [facility] [address] [place] [address] Dr. Alesia Meyers MONO # 0.5 103/ul Normal 0.3-0.8 [facility] Comment on above: Performed By: #### T SH, CMP, LDH #### [facility] [address] [place] [address] Dr. Alesia Meyers Monocytes/100 WBC (Bld) 7.8 % Normal 1.7-12.0 [facility] Comment on above: Performed By: #### T SH, CMP, LDH #### [facility] [address] [place] [address] Dr. Alesia Meyers NEUT # 4.0 103/ul Normal 1.4-6.5 [facility] Comment on above: Performed By: #### T SH, CMP, LDH #### [facility] [address] [place] [address] Dr. Alesia Meyers Neutrophils/100 WBC (Bld) 58.9 % Normal 43.0-75.0 [facility] Comment on above: Performed By: #### T SH, CMP, LDH #### [facility] [address] [place] [address] Dr. Alesia Myeers Platelet mean volume (Bld) [Entitic vol] 9.0 fL Critically low 9.5-13.5 [facility] Comment on above: Performed By: #### T SH, CMP, LDH #### [facility] [address] [place] [address] Dr. Alesia Meyers PLT 224 103/ul Normal 150-450 [facility] Comment on above: Performed By: #### T SH, CMP, LDH #### [facility] [address] [place] [address] Dr. Alesia Meyers RBC 4.72 106/ul Normal 4.20-5.40 [facility] Comment on above: Performed By: #### T SH, CMP, LDH #### [facility] [address] [place] [address] Dr. Alesia Meyers WBC 6.8 103/ul Normal 4.0-11.0 [facility] Comment on above: Performed By: #### T SH, CMP, LDH #### [facility] [address] [place] [address] Dr. Alesia Meyers FREE T4on 05-30-2022 Free T4 [Mass/Vol] 1.19 ng/dL Normal 0.76-1.46 [facility] Comment on above: Performed By: #### T SH, CMP, LDH #### [facility] [address] [place] [address] Dr. Alesia Meyers LDHon 05-30-2022 LDH 231 U/L Normal 81-234 [facility] Comment on above: Performed By: #### F T4 #### [facility] [address] [place] [address] Dr. Alesia Meyers LIPASEon 05-30-2022 Lipase [Catalytic activity/Vol] 76.0 U/L Normal 73.0-393.0 [facility] Comment on above: Performed By: #### F T4 #### [facility] [address] [place] [address] Dr. Alesia Meyers LIVER PROFILEon 05-30-2022 Albumin [Mass/Vol] 3.5 g/dL Normal 3.4-5.0 [facility] Comment on above: Performed By: #### F T4 #### [facility] [address] [place] [address] Dr. Alesia Meyers Albumin/Globulin [Mass ratio] 0.9 {ratio} Normal [facility] Comment on above: Performed By: #### F T4 #### [facility] [address] [place] [address] Dr. Alesia Meyers ALP [Catalytic activity/Vol] 128 U/L Critically high 46-116 [facility] Comment on above: Performed By: #### F T4 #### [facility] [address] [place] [address] Dr. Alesia Meyers ALT [Catalytic activity/Vol] 35 U/L Normal 14-59 [facility] Comment on above: Performed By: #### F T4 #### [facility] [address] [place] [address] Dr. Alesia Meyers AST [Catalytic activity/Vol] 25 U/L Normal 15-37 [facility] Comment on above: Performed By: #### F T4 #### [facility] [address] [place] [address] Dr. Alesia Meyers BILI, CONJUGATED 0.1 mg/dL Normal 0.0-0.2 [facility] Comment on above: Performed By: #### F T4 #### [facility] [address] [place] [address] Dr. Alesia Meyers Bilirubin [Mass/Vol] 0.4 mg/dL Normal 0.2-1.0 [facility] Comment on above: Performed By: #### F T4 #### [facility] [address] [place] [address] Dr. Alesia Meyers Globulin (S) [Mass/Vol] 3.7 g/dL Normal [facility] Comment on above: Performed By: #### F T4 #### [facility] [address] [place] [address] Dr. Alesia Meyers Protein [Mass/Vol] 7.2 g/dL Normal 6.4-8.2 [facility] Comment on above: Performed By: #### F T4 #### [facility] [address] [place] [address] Dr. Alesia Meyers PROF CHEM 8 (BAS METB)on Anion gap [Moles/Vol] 7.3 mmol/L Normal [facility] Comment on above: Performed By: #### F T4 #### [facility] [address] [address] [address] Alesia Meyers Calcium [Mass/Vol] 9.0 mg/dL Normal 8.5-10.1 [facility] Comment on above: Performed By: #### F T4 #### [facility] [address] [address] [address] Alesia Meyers Chloride [Moles/Vol] 102 mmol/L Normal 98-107 [facility] Comment on above: Performed By: #### F T4 #### [facility] [address] [place] [address] Dr. Alesia Meyers CO2 [Moles/Vol] 32.3 mmol/L Critically high 21.0-32.0 [facility] Comment on above: Performed By: #### F T4 #### [facility] [address] [place] [address] Dr. Alesia Meyers Creatinine [Mass/Vol] 0.94 mg/dL Normal 0.55-1.02 [facility] Comment on above: Performed By: #### F T4 #### [facility] [address] [place] [address] Dr. Alesia Meyers EGFR-AF VINCENTIAN >60 Normal >=60 [facility] Comment on above: Performed By: #### F T4 #### [facility] [address] [address] [address] Alesia Meyers EGFR-NON AF VINCENTIAN 58 mL/min/1.73m2 Critically low >=60 [facility] Comment on above: Performed By: #### F T4 #### [facility] [address] [place] [address] Dr. Alseia Meyers Glucose [Mass/Vol] 108 mg/dL Critically high 74-106 [facility] Comment on above: Performed By: #### F T4 #### [facility] [address] [place] [address] Dr. Alesia Meyers Potassium [Moles/Vol] 3.6 mmol/L Normal 3.5-5.1 [facility] Comment on above: Performed By: #### F T4 #### [facility] [address] [place] [address] Dr. Alesia Meyers Sodium [Moles/Vol] 138 mmol/L Normal 136-145 [facility] Comment on above: Performed By: #### F T4 #### [facility] [address] [place] [address] Dr. Alesia Meyers Urea nitrogen [Mass/Vol] 24.0 mg/dL Critically high 7.0-18.0 [facility] Comment on above: Performed By: #### F T4 #### [facility] [address] [place] [address] Dr. Alesia Meyers Urea nitrogen/Creatinine [Mass ratio] 25.5 mg/mg Normal [facility] Comment on above: Performed By: #### F T4 #### [facility] [address] [place] [address] Dr. Alesia Meyers TSHon 05-30-2022 TSH 2.605 uIU/mL Normal 0.358-3.74 0 [facility] Comment on above: Performed By: #### F T4 #### [facility] [address] [place] [address] Dr. Alesia Meyers ACTH, PLASMAon 05-14-2022 ACTH, Plasma 17.0 pg/mL Normal 7.2-63.3 [facility] Comment on above: Result Comment: ACTH reference interval for samples collected between 7 and 10 AM. Performed By: #### A CTHP #### [facility] [address] [place] [address] Dr. Alesia Meyers ACTH, PLASMAon 05-12-2022 ACTH, Plasma WRORD Normal [facility] Comment on above: Result Comment: Test not performed. The required specimen for the test ordered was not received. received refrigerate plasma edta contacted Sheyla at your facility on 05-12-2022 ACTH reference interval for samples collected between 7 and 10 AM. Performed By: #### F T4 #### [facility] [address] [place] [address] Dr. Alesia Meyers Albumin [Mass/volume] in Ser um or PlasmaOrdered By: Sly Benson on 05-12-2022 Albumin [Mass/Vol] 3.5 g/dL 3.2-5.5 [facility] Direct bilirubin measurement Ordered By: Sly Benson on 05-12-2022 Bilirubin.direct [Mass/Vol] mg/dL 0.0-0.4 [facility] Globulin Calc (S) [Mass/Vol] Ordered By: Sly Benson on 05-12-2022 Globulin (S) [Mass/Vol] 3.0 g/dL [facility] - Chemistry and C hemistry - challengeOrdered By: Sly Benson on 05-12-2022 Lipase [Catalytic activity/Vol] 26.0 U/L 22-51 [facility] Lactate dehydrogenase measur ement (enzymatic activity/volume)Ordered By: Sly Benson on 05-12-2022 LDH (Unsp spec) [Catalytic activity/Vol] 199 U/L 45-190 [facility] No Panel InformationOrdered By: Sly Benson on 05-12-2022 Adrenocorticotropic Hormone 243.0 pg/mL 7.2-63.3 [facility] Comment on above: ACTH reference inter jamel for samples collected between 7 and10 AM.Performed at: [facility] [id number] Director: Coleman Lacy PhD, Phone: [phone] Protein [Mass/volume] in Ser um or PlasmaOrdered By: Sly Benson on 05-12-2022 Protein [Mass/Vol] 6.5 g/dL 6.1-7.9 [facility] Random cortisol measurementO rdered By: Sly Benson on 05-12-2022 Cortisol [Mass/Vol] 14.6 ug/dL [facility] Comment on above: Reference range: AM 6 - 24 ug/dl PM <10 ug/dl Serum or plasma alanine castro otransferase measurement without P-5'-P (enzymatic activiOrdered By: Sly Benson on 05-12-2022 ALT No additional P-5'-P [Catalytic activity/Vol] 31 U/L [facility] Serum or plasma albumin/glob ulin mass ratioOrdered By: Sly Benson on 05-12-2022 Albumin/Globulin [Mass ratio] 1.2 {ratio} [facility] Serum or plasma alkaline halle sphatase measurement (enzymatic activity/volume)Ordered By: Sly Benson on 05-12-2022 ALP [Catalytic activity/Vol] 112 U/L [facility] Serum or plasma aspartate am inotransferase measurement (enzymatic activity/volume)Ordered By: Sly Benson on 05-12-2022 AST [Catalytic activity/Vol] 33 U/L [facility] Serum or plasma non-glucuron idated bilirubin measurement (mass/volume)Ordered By: Sly Benson on 05-12-2022 Bilirubin.indirect [Mass/Vol] TNP [facility] Comment on above: Test not performed Serum or plasma total biliru bin measurement (mass/volume)Ordered By: Sly Benson on 05-12-2022 Bilirubin [Mass/Vol] 0.8 mg/dL 0.3-1.2 [facility] Thyroxine (T4) free [Mass/vo lume] in Serum or PlasmaOrdered By: Sly Benson on 05-12-2022 Free T4 [Mass/Vol] 1.17 ng/dL 0.61-1.12 [facility] CORTISOLon 05-11-2022 Cortisol 15.4 ug/dL Normal [facility] Comment on above: Result Comment: Melvin isol AM 6.2 - 19.4 Cortisol PM 2.3 - 11.9 Performed By: #### T SH, CMP, LDH #### [facility] [address] [address] [address] Alesia Meyers CBC AUTO DIFFon 05-10-2022 BASO # 0.0 103/ul Normal 0.0-0.1 [facility] Comment on above: Performed By: #### C BC #### [facility] [address] [address] [address] Alesia Meyers Basophils/100 WBC (Bld) 0.3 % Normal 0.2-2.0 [facility] Comment on above: Performed By: #### C BC #### [facility] [address] [place] [address] Dr. Alesia Meyers EO # 0.2 103/ul Normal 0.0-0.7 [facility] Comment on above: Performed By: #### C BC #### [facility] [address] [place] [address] Dr. Alesia Meyers Eosinophils/100 WBC (Bld) 2.5 % Normal 0.9-7.0 [facility] Comment on above: Performed By: #### C BC #### [facility] [address] [place] [address] Dr. Alesia Meyers Erythrocyte distribution width (RBC) [Ratio] 13.2 % Normal 11.0-15.0 [facility] Comment on above: Performed By: #### C BC #### [facility] [address] [place] [address] Dr. Alesia Meyers Hematocrit (Bld) [Volume fraction] 39.1 % Normal 36.0-48.0 [facility] Comment on above: Performed By: #### C BC #### [facility] [address] [place] [address] Dr. Alesia Meyers Hemoglobin (Bld) [Mass/Vol] 12.9 g/dL Normal 12.0-16.0 [facility] Comment on above: Performed By: #### C BC #### [facility] [address] [place] [address] Dr. Alesia Meyers IG # 0.01 10e3/ul Normal 0.00-0.03 [facility] Comment on above: Performed By: #### C BC #### [facility] [address] [place] [address] Dr. Alesia Meyers IG % 0.2 % Normal 0.0-0.5 [facility] Comment on above: Performed By: #### C BC #### [facility] [address] [place] [address] Dr. Alesia Meyers LYMPH # 1.9 103/ul Normal 1.2-3.8 [facility] Comment on above: Performed By: #### C BC #### [facility] [address] [place] [address] Dr. Alesia Meyers Lymphocytes/100 WBC (Bld) 32.2 % Normal 20.5-60.0 [facility] Comment on above: Performed By: #### C BC #### [facility] [address] [place] [address] Dr. Alesia Meyers MANUAL DIFF REQ NO Normal [facility] Comment on above: Performed By: #### C BC #### [facility] [address] [place] [address] Dr. Alesia Meyers MCH (RBC) [Entitic mass] 29.0 pg Normal 26.7-34.0 [facility] Comment on above: Performed By: #### C BC #### [facility] [address] [place] [address] Dr. Alesia Meyers MCHC (RBC) [Mass/Vol] 33.0 g/dL Normal 29.9-35.2 [facility] Comment on above: Performed By: #### C BC #### [facility] [address] [place] [address] Dr. Alesia Meyers MCV (RBC) [Entitic vol] 87.9 fL Normal 81.0-99.0 [facility] Comment on above: Performed By: #### C BC #### [facility] [address] [place] [address] Dr. Alesia Meyers MONO # 0.5 103/ul Normal 0.3-0.8 [facility] Comment on above: Performed By: #### C BC #### [facility] [address] [place] [address] Dr. Alesia Meyers Monocytes/100 WBC (Bld) 8.5 % Normal 1.7-12.0 [facility] Comment on above: Performed By: #### C BC #### [facility] [address] [place] [address] Dr. Alesia Meyers NEUT # 3.3 103/ul Normal 1.4-6.5 [facility] Comment on above: Performed By: #### C BC #### [facility] [address] [address] [address] Alesia Meyers Neutrophils/100 WBC (Bld) 56.3 % Normal 43.0-75.0 [facility] Comment on above: Performed By: #### C BC #### [facility] [address] [place] [address] Dr. Alesia Meyers Platelet mean volume (Bld) [Entitic vol] 9.6 fL Normal 9.5-13.5 [facility] Comment on above: Performed By: #### C BC #### [facility] [address] [place] [address] Dr. Alesia Meyers PLT 210 103/ul Normal 150-450 [facility] Comment on above: Performed By: #### C BC #### [facility] [address] [place] [address] Dr. Alesia Meyers RBC 4.45 106/ul Normal 4.20-5.40 [facility] Comment on above: Performed By: #### C BC #### [facility] [address] [place] [address] Dr. Alesia Meyers WBC 5.9 103/ul Normal 4.0-11.0 [facility] Comment on above: Performed By: #### C BC #### [facility] [address] [place] [address] Dr. Alesia Meyers FREE T4on 05-10-2022 Free T4 [Mass/Vol] 1.19 ng/dL Normal 0.76-1.46 [facility] Comment on above: Performed By: #### F T4 #### [facility] [address] [place] [address] Dr. Alesia Meyers LDHon 05-10-2022 LDH 252 U/L Critically high 81-234 [facility] Comment on above: Performed By: #### T SH, CMP, LDH #### [facility] [address] [place] [address] Dr. Alesia Meyers LIPASEon 05-10-2022 Lipase [Catalytic activity/Vol] 70.0 U/L Critically low 73.0-393.0 [facility] Comment on above: Performed By: #### T SH, CMP, LDH #### [facility] [address] [address] [address] Alesia Meyers LIVER PROFILEon 05-10-2022 Albumin [Mass/Vol] 3.3 g/dL Critically low 3.4-5.0 [facility] Comment on above: Performed By: #### T SH, CMP, LDH #### [facility] [address] [address] [address] Alesia Meyers Albumin/Globulin [Mass ratio] 0.9 {ratio} Normal [facility] Comment on above: Performed By: #### T SH, CMP, LDH #### [facility] [address] [address] [address] Alesia Meyers ALP [Catalytic activity/Vol] 129 U/L Critically high 46-116 [facility] Comment on above: Performed By: #### T SH, CMP, LDH #### [facility] [address] [address] [address] Alesia Meyers ALT [Catalytic activity/Vol] 35 U/L Normal 14-59 [facility] Comment on above: Performed By: #### T SH, CMP, LDH #### [facility] [address] [address] [address] Alesia Meyers AST [Catalytic activity/Vol] 36 U/L Normal 15-37 [facility] Comment on above: Performed By: #### T SH, CMP, LDH #### [facility] [address] [address] [address] Alesia Meyers BILI, CONJUGATED 0.1 mg/dL Normal 0.0-0.2 [facility] Comment on above: Performed By: #### T SH, CMP, LDH #### [facility] [address] [address] [address] Alesia Meyers Bilirubin [Mass/Vol] 0.4 mg/dL Normal 0.2-1.0 [facility] Comment on above: Performed By: #### T SH, CMP, LDH #### [facility] [address] [place] [address] Dr. Alesia Meyers Globulin (S) [Mass/Vol] 3.7 g/dL Normal [facility] Comment on above: Performed By: #### T SH, CMP, LDH #### [facility] [address] [place] [address] Dr. Alesia Meyers Protein [Mass/Vol] 7.0 g/dL Normal 6.4-8.2 [facility] Comment on above: Performed By: #### T SH, CMP, LDH #### [facility] [address] [place] [address] Dr. Alesia Meyers PROF CHEM 8 (BAS METB)on Anion gap [Moles/Vol] 11.7 mmol/L Normal [facility] Comment on above: Performed By: #### T SH, CMP, LDH #### [facility] [address] [place] [address] Dr. Alesia Meyers Calcium [Mass/Vol] 8.9 mg/dL Normal 8.5-10.1 [facility] Comment on above: Performed By: #### T SH, CMP, LDH #### [facility] [address] [place] [address] Dr. Alesia Meyers Chloride [Moles/Vol] 104 mmol/L Normal 98-107 [facility] Comment on above: Performed By: #### T SH, CMP, LDH #### [facility] [address] [place] [address] Dr. Alesia Meyers CO2 [Moles/Vol] 29.3 mmol/L Normal 21.0-32.0 [facility] Comment on above: Performed By: #### T SH, CMP, LDH #### [facility] [address] [place] [address] Dr. Alesia Meyers Creatinine [Mass/Vol] 0.84 mg/dL Normal 0.55-1.02 [facility] Comment on above: Performed By: #### T SH, CMP, LDH #### [facility] [address] [place] [address] Dr. Alesia Meyers EGFR-AF VINCENTIAN >60 Normal >=60 [facility] Comment on above: Performed By: #### T SH, CMP, LDH #### [facility] [address] [address] [address] Alesia Meyers EGFR-NON AF VINCENTIAN >60 Normal >=60 [facility] Comment on above: Performed By: #### T SH, CMP, LDH #### [facility] [address] [address] [address] Alesia Meyers Glucose [Mass/Vol] 109 mg/dL Critically high 74-106 [facility] Comment on above: Performed By: #### T SH, CMP, LDH #### [facility] [address] [address] [address] Alesia Meyers Potassium [Moles/Vol] 4.0 mmol/L Normal 3.5-5.1 [facility] Comment on above: Performed By: #### T SH, CMP, LDH #### [facility] [address] [address] [address] Alesia Meyers Sodium [Moles/Vol] 141 mmol/L Normal 136-145 [facility] Comment on above: Performed By: #### T SH, CMP, LDH #### [facility] [address] [address] [address] Alesia Meyers Urea nitrogen [Mass/Vol] 19.0 mg/dL Critically high 7.0-18.0 [facility] Comment on above: Performed By: #### T SH, CMP, LDH #### [facility] [address] [place] [address] Dr. Alesia Meyers Urea nitrogen/Creatinine [Mass ratio] 22.6 mg/mg Normal [facility] Comment on above: Performed By: #### T SH, CMP, LDH #### [facility] [address] [place] [address] Dr. Alesia Meyers TSHon 05-10-2022 TSH 3.114 uIU/mL Normal 0.358-3.74 0 [facility] Comment on above: Performed By: #### T SH, CMP, LDH #### [facility] [address] [place] [address] Dr. Alesia Meyers Activated partial thrombopla stin time (aPTT) in platelet poor plasma by coagulation aOrdered By: Sly Benson on 04-28-2022 aPTT Coag (PPP) [Time] 28.1 s 25.1-36.5 [facility] Albumin [Mass/volume] in Ser um or PlasmaOrdered By: Sly Benson on 04-28-2022 Albumin [Mass/Vol] 3.5 g/dL 3.2-5.5 [facility] Basophils Auto (Bld) [#/Vol] Ordered By: Sly Benson on 04-28-2022 Basophils (Bld) [#/Vol] 0.0 10*3/uL 0.0-0.2 [facility] Basophils/100 WBC Auto (Bld) Ordered By: Sly Benson on 04-28-2022 Basophils/100 WBC (Bld) 0.5 % . [facility] Creatinine and Glomerular fi ltration rate.predicted panel (S/P/Bld)Ordered By: Sly Benson on 04-28-2022 Creatinine [Mass/Vol] 0.84 mg/dL 0.44-1.03 [facility] Eosinophils Auto (Bld) [#/Vo l]Ordered By: Sly Benson on 04-28-2022 Eosinophils (Bld) [#/Vol] 0.1 10*3/uL 0.0-0.45 [facility] Eosinophils/100 WBC Auto (Bl d)Ordered By: Sly Benson on 04-28-2022 Eosinophils/100 WBC (Bld) 1.1 % . [facility] Erythrocyte distribution wid th Auto (RBC) [Ratio]Ordered By: Sly Benson on 04-28-2022 Erythrocyte distribution width (RBC) [Ratio] 14.1 % 11.9-15.3 [facility] Erythrocyte sedimentation ra te by Photometric methodOrdered By: Sly Benson on 04-28-2022 ESR Photometric method (Bld) [Velocity] 31 mm/hr 0-29 [facility] Estimated glomerular filtrat ion rate (GFR) non- AmericanOrdered By: Sly Benson on 04-28-2022 GFR/1.73 sq M.predicted among non-blacks MDRD (S/P/Bld) [Vol rate/Area] > 60 mL/Min [facility] Globulin Calc (S) [Mass/Vol] Ordered By: Sly Benson on 04-28-2022 Globulin (S) [Mass/Vol] 2.9 g/dL [facility] Hematocrit Auto (Bld) [Volum e fraction]Ordered By: Sly Benson on 04-28-2022 Hematocrit (Bld) [Volume fraction] 40.5 % 34.0-46.4 [facility] Hemoglobin [Mass/volume] in BloodOrdered By: Sly Benson on 04-28-2022 Hemoglobin (Bld) [Mass/Vol] 13.6 g/dL 11.8-15.4 [facility] - CoagulationOrde red By: Sly Benson on 04-28-2022 PT Coag (PPP) [Time] 10.6 s 9.0-12.9 [facility] - Hematology and Cell countsOrdered By: Sly Benson on 04-28-2022 Nucleated RBC/100 WBC (Bld) [Ratio] 0.1 % 0-0.5 [facility] Leukocytes [#/volume] in Blo od by Automated countOrdered By: Sly Benson on 04-28-2022 WBC (Bld) [#/Vol] 6.9 10*3/uL 4.5-11.0 [facility] Lymphocytes Auto (Bld) [#/Vo l]Ordered By: Sly Benson on 04-28-2022 Lymphocytes (Bld) [#/Vol] 2.0 10*3/uL 1.00-4.8 [facility] Lymphocytes/100 WBC Auto (Bl d)Ordered By: Sly Benson on 04-28-2022 Lymphocytes/100 WBC (Bld) 28.3 % . [facility] MCH Auto (RBC) [Entitic mass ]Ordered By: Sly Benson on 04-28-2022 MCH (RBC) [Entitic mass] 29.4 pg 24.7-34.3 [facility] MCHC Auto (RBC) [Mass/Vol]Or dered By: Sly Benson on 04-28-2022 MCHC (RBC) [Mass/Vol] 33.6 g/dL 32.0-35.0 [facility] MCV Auto (RBC) [Entitic vol] Ordered By: Sly Benson on 04-28-2022 MCV (RBC) [Entitic vol] 87.5 fL 80-100 [facility] Monocytes Auto (Bld) [#/Vol] Ordered By: Sly Benson on 04-28-2022 Monocytes (Bld) [#/Vol] 0.6 10*3/uL 0.0-0.8 [facility] Monocytes/100 WBC Auto (Bld) Ordered By: Sly Benson on 04-28-2022 Monocytes/100 WBC (Bld) 8.5 % . [facility] Neutrophils Auto (Bld) [#/Vo l]Ordered By: Sly Benson on 04-28-2022 Neutrophils (Bld) [#/Vol] 4.2 10*3/uL 1.8-7.7 [facility] Neutrophils/100 WBC Auto (Bl d)Ordered By: Sly Benson on 04-28-2022 Neutrophils/100 WBC (Bld) 61.6 % . [facility] No Panel InformationOrdered By: Sly Benson on 04-28-2022 Anti-Nuclear Antibody Comment 2 See comment . [facility] Comment on above: For more information about [...] titers Nucleosomes, Histones Drug-induced SLE Speckled Sm, COCONUT COOKER, SCL-70, SLE,MCTD,PSS (diffuse form), SS-A/SS-B Sjogrens Nucleolar SCL-70, PM-1/SCL High titers Scleroderma, PM/DM Centromere Centromere PSS (limited form) w/Crest syndrome variable Nuclear Dot [id number] Primary Biliary Cirrhosis Nuclear GP210, Primary Biliary CirrhosisMembrane fish A,B,C Performed at: - [facility] [id number] Director: Coleman Lacy PhD, Phone: [phone] Estimated GFR () > 60 mL/Min [facility] Comment on above: GFR estimated refere nce range: According to KDOQI guidelines, <60 ml/min/1.73m2 is sufficient to diagnose a patient with chronic kidney disease. Pharmacy Creatinine Clearance (Chem 60.78 [facility] Platelet mean volume Auto (B ld) [Entitic vol]Ordered By: Sly Benson on 04-28-2022 Platelet mean volume (Bld) [Entitic vol] 7.6 fL 6.3-10.7 [facility] Platelet poor plasma interna tional normalized ratio (INR) by coagulation assay (relatOrdered By: Sly Benson on 04-28-2022 INR Coag (PPP) [Relative time] 0.9 {INR} [facility] Comment on above: INR Therapeutic Rang e [...] 04-28-2022 Platelets (Bld) [#/Vol] 204 10*3/uL 150-450 [facility] Protein [Mass/volume] in Ser um or PlasmaOrdered By: Sly Benson on 04-28-2022 Protein [Mass/Vol] 6.4 g/dL 6.1-7.9 [facility] RBC Auto (Bld) [#/Vol]Ordere d By: Sly Benson on 04-28-2022 RBC (Bld) [#/Vol] 4.63 10*6/uL 3.60-5.00 [facility] Serum nuclear antibody titer Ordered By: Sly Benson on 04-28-2022 Nuclear Ab (S) [Titer] Positive . [facility] Comment on above: Negative <1:80 Borde rline 1:80 Positive >1:80 Serum or plasma alanine castro otransferase measurement without P-5'-P (enzymatic activiOrdered By: Sly Benson on 04-28-2022 ALT No additional P-5'-P [Catalytic activity/Vol] 34 U/L 10-60 [facility] Serum or plasma albumin/glob ulin mass ratioOrdered By: Sly Benson on 04-28-2022 Albumin/Globulin [Mass ratio] 1.2 {ratio} [facility] Serum or plasma alkaline halle sphatase measurement (enzymatic activity/volume)Ordered By: Sly Benson on 04-28-2022 ALP [Catalytic activity/Vol] 114 U/L 32-92 [facility] Serum or plasma anion gap de terminationOrdered By: Sly Benson on 04-28-2022 Anion gap [Moles/Vol] 11.9 mmol/L 6.0-15.0 [facility] Serum or plasma aspartate am inotransferase measurement (enzymatic activity/volume)Ordered By: Sly Benson on 04-28-2022 AST [Catalytic activity/Vol] 38 U/L 10 [facility] Serum or plasma calcium diamond urement (mass/volume)Ordered By: Sly Benson on 04-28-2022 Calcium [Mass/Vol] 8.9 mg/dL 8.2-10.2 [facility] Serum or plasma chloride zora surement (moles/volume)Ordered By: Sly Benson on 04-28-2022 Chloride [Moles/Vol] 105 mmol/L 95-114 [facility] Serum or plasma glucose diamond urement (mass/volume)Ordered By: Sly Benson on 04-28-2022 Glucose [Mass/Vol] 110 mg/dL 70-100 [facility] Comment on above: ADA recommended refe rence rangeRandom Glucose Reference Range is dependent on time and content of last meal. Glucose of more than 200 mg/dL in a nonstressed, ambulatory subject supports the diagnosis of Diabetes Mellitus. Serum or plasma potassium me asurement (moles/volume)Ordered By: Sly Benson on 04-28-2022 Potassium [Moles/Vol] 3.5 mmol/L 3.5-5.1 [facility] Serum or plasma sodium measu rement (moles/volume)Ordered By: Sly Benson on 04-28-2022 Sodium [Moles/Vol] 140 mmol/L 136-146 [facility] Serum or plasma total biliru bin measurement (mass/volume)Ordered By: Sly Benson on 04-28-2022 Bilirubin [Mass/Vol] 0.9 mg/dL 0.3-1.2 [facility] Serum or plasma total carbon dioxide measurement (moles/volume)Ordered By: Sly Benson on 04-28-2022 CO2 [Moles/Vol] 26.6 mmol/L 22.0-30.0 [facility] Serum or plasma urea nitroge n measurement (mass/volume)Ordered By: Sly Benson on 04-28-2022 Urea nitrogen [Mass/Vol] 16 mg/dL 9- [facility] Serum speckled pattern antin uclear antibody (BARRETT) titerOrdered By: Sly Benson on 04-28-2022 Speckled nuclear Ab pattern (S) [Titer] 1:160 . [facility] Comment on above: ICAP nomenclature: A C-2,4,5,29 TSH DL <= 0.005 mIU/L QnOrde red By: Sly Benson on 04-28-2022 TSH Qn 3.18 m[IU]/L 0.45-5.33 [facility] Creatinine and Glomerular fi ltration rate.predicted panel (S/P/Bld)Ordered By: Alex Trammell on 03-26-2022 Creatinine [Mass/Vol] 0.87 mg/dL 0.44-1.03 [facility] Estimated glomerular filtrat ion rate (GFR) non- AmericanOrdered By: Alex Trammell on 03-26-2022 GFR/1.73 sq M.predicted among non-blacks MDRD (S/P/Bld) [Vol rate/Area] > 60 mL/Min [facility] No Panel InformationOrdered By: Alex Trammell on 03-26-2022 Estimated GFR () > 60 mL/Min [facility] Comment on above: GFR estimated refere nce range: According to KDOQI guidelines, <60 ml/min/1.73m2 is sufficient to diagnose a patient with chronic kidney disease. Pharmacy Creatinine Clearance (Chem N/A [facility] Serum or plasma urea nitroge n measurement (mass/volume)Ordered By: Alex Trammell on 03-26-2022 Urea nitrogen [Mass/Vol] 18 mg/dL 04-04 [facility] Creatinine and Glomerular fi ltration rate.predicted panel (S/P/Bld)Ordered By: Alex Trammell on 10-10-2021 Creatinine [Mass/Vol] 0.91 mg/dL 0.44-1.03 [facility] Estimated glomerular filtrat ion rate (GFR) non- AmericanOrdered By: Alex Trammell on 10-10-2021 GFR/1.73 sq M.predicted among non-blacks MDRD (S/P/Bld) [Vol rate/Area] 60 mL/Min [facility] No Panel InformationOrdered By: Alex Trammell on 10-10-2021 Estimated GFR () > 60 mL/Min [facility] Comment on above: GFR estimated refere nce range: According to KDOQI guidelines, <60 ml/min/1.73m2 is sufficient to diagnose a patient with chronic kidney disease. Pharmacy Creatinine Clearance (Chem N/A [facility] Serum or plasma urea nitroge n measurement (mass/volume)Ordered By: Alex Trammell on 10-10-2021 Urea nitrogen [Mass/Vol] 19 mg/dL 04-04 [facility] Dermatopathologyon Dermatopathology Name THERESA LUU Pathologist: SURAJ [...] M.D. Electronically Signed Out By SURAJ MELGAR MD/[facility] By the signature on this report, the [...] mm. Inked and embedded in toto. mlz/09/18/2021 [facility] Dermatopathology Laboratory [place] [id number] [place] [address] Comment on above: Performed By: #### D #### Dermatopathology No Panel Informationon 09-17 DU-Kpffzsr-U [facility] Work Phone: Office Visit (Oncology Surge [...] not connect with the medical oncologist at [facility] who was planning to consider her [...] reports that she has not seen her laborer landscape since prior to the cancer treatment. As [...] swelling fro (more content not included)... Normal [facility] COMPREHENSIVE METABOLIC PANE [facility] 05-04-2021 Albumin [Mass/Vol] 4.1 g/dL Normal 3.6-5.1 [facility] Comment on above: Performed By: #### 7 600, 49999 #### [facility] [address], [address] [place] [phone] Forklift Material Handler: Chadwick Suárez MD Albumin/Globulin [Mass ratio] 1.4 {ratio} Normal 1.0-2.5 [facility] Comment on above: Performed By: #### 7 600, 17829 #### [facility] [address], [address] [place] [address] Forklift Material Handler: Chadwick Suárez MD ALP [Catalytic activity/Vol] 121 U/L Normal 37-153 [facility] Comment on above: Performed By: #### 7 600, 89257 #### [facility] of [place] [address] Forklift Material Handler: Chadwick Suárez MD ALT [Catalytic activity/Vol] 18 U/L Normal 6-29 [facility] Comment on above: Performed By: #### 7 600, 67176 #### [facility] of [place] [address] Forklift Material Handler: Chadwick Suárze MD AST [Catalytic activity/Vol] 19 U/L Normal 10-35 [facility] Comment on above: Performed By: #### 7 600, 09231 #### [facility] of [place] [address] Forklift Material Handler: Chadwick Suárez MD Bilirubin [Mass/Vol] 0.5 mg/dL Normal 0.2-1.2 [facility] Comment on above: Performed By: #### 7 600, 54261 #### [facility] of [place] [address] Forklift Material Handler: Chadwick Suárez MD BUN/CREATININE RATIO NOT APPLICABLE Normal 6-22 [facility] Comment on above: Performed By: #### 7 600, 90675 #### [facility] of [place] [address] Forklift Material Handler: Chadwick Suárez MD Calcium [Mass/Vol] 9.4 mg/dL Normal 8.6-10.4 [facility] Comment on above: Performed By: #### 7 600, 91893 #### [facility] of [place] [address] Forklift Material Handler: Chadwick Suárez MD Chloride [Moles/Vol] 106 mmol/L Normal 98-110 [facility] Comment on above: Performed By: #### 7 600, 62696 #### [facility] of [address] [address] Forklift Material Handler: Chadwick Suárez MD CO2 [Moles/Vol] 31 mmol/L Normal 20-32 [facility] Comment on above: Performed By: #### 7 600, 14903 #### [facility] [place] [address] Forklift Material Handler: Chadwick Suárez MD Creatinine [Mass/Vol] 0.78 mg/dL Normal 0.60-0.[address] [facility] [address] [facility] Comment on above: Result Comment: For patients >49 years of age, the reference limit for Creatinine is approximately 13% higher for people identified as -[place]. Performed By: #### 7 600, 24037 #### [facility] [place] [address] Forklift Material Handler: Chadwick Suárez MD eGFR NON-AFR. VINCENTIAN 75 mL/min/1.73m2 Normal > OR = 60 [facility] Comment on above: Performed By: #### 7 600, 45444 #### [facility] [place] [address] Forklift Material Handler: Chadwick Suárez MD GFR/1.73 sq M.predicted among blacks MDRD (S/P/Bld) [Vol rate/Area] 87 mL/min/{1.73_m2} Normal > OR = 60 [facility] Comment on above: Performed By: #### 7 600, 39171 #### [facility] [place] [address] Forklift Material Handler: Chadwick Suárez MD Globulin (S) [Mass/Vol] 2.9 g/dL Normal 1.9-3.7 [facility] Comment on above: Performed By: #### 7 600, 59197 #### [facility] [place] [address] Forklift Material Handler: Chadwick Suárez MD Glucose [Mass/Vol] 105 mg/dL High 65-99 [facility] Comment on above: Result Comment: Fasting reference interval For someone without known diabetes, a glucose value between 100 and 125 mg/dL is consistent with prediabetes and should be confirmed with a follow-up test. Performed By: #### 7 600, 82579 #### [facility] [place] [address] Forklift Material Handler: Chadwick Suárez MD Potassium [Moles/Vol] 4.9 mmol/L Normal 3.5-5.[address] [facility] Comment on above: Performed By: #### 7 600, 81823 #### [facility] [place] [address] Forklift Material Handler: Chadwick Suárez MD Protein [Mass/Vol] 7.0 g/dL Normal 6.1-8.1 [facility] Comment on above: Performed By: #### 7 600, 50238 #### [facility] [place] [address] Forklift Material Handler: Chadwick Suárez MD Sodium [Moles/Vol] 143 mmol/L Normal 135-146 [facility] Comment on above: Performed By: #### 7 600, 14319 #### [facility] [place] [address] Forklift Material Handler: Chadwick Suárez MD Urea nitrogen [Mass/Vol] 18 mg/dL Normal 7-25 [facility] Comment on above: Performed By: #### 7 600, 79142 #### [facility] [place] [address] Forklift Material Handler: Chadwick Suárez MD LIPID PANEL, STANDARD 10-2 Cholesterol [Mass/Vol] 235 mg/dL High <200 [facility] Comment on above: Order Comment: FASTI NG:YES AN UPDATE OR CORRECTION HAS BEEN MADE TO NAME FASTING: YES Performed By: #### 7 600, 38166 #### [facility] of [place] [address] Forklift Material Handler: Chadwick Suárez MD Cholesterol in HDL [Mass/Vol] 83 mg/dL Normal > OR = 50 [facility] Comment on above: Order Comment: FASTI NG:YES AN UPDATE OR CORRECTION HAS BEEN MADE TO NAME FASTING: YES Performed By: #### 7 600, 57622 #### [facility] [address], [address] [place] [address] Forklift Material Handler: Chadwick Suárez MD Cholesterol in LDL [Mass/Vol] [...] LDL-C. Enrique SS et al. ROCCO. 2013;310(19): 7477-7774 (http://education.DateMyFamily.com/faq/MFG293) Performed By: #### 7 600, 41894 #### [facility] [address], [address] [place] [address] Forklift Material Handler: Chadwick Suárez MD Cholesterol.total/Chol esterol in HDL [Mass ratio] 2.8 {ratio} Normal <5.0 [facility] Comment on above: Order Comment: FASTI NG:YES AN UPDATE OR CORRECTION HAS BEEN MADE TO NAME FASTING: YES Performed By: #### 7 600, 23491 #### [facility] [address], [address] [place] [address] Forklift Material Handler: Chadwick Suárez MD NON HDL CHOLESTEROL 152 [...] therapeutic option. Performed By: #### 7 600, 83458 #### [facility] [address], [address] [place] [address] Forklift Material Handler: Chadwick Suárez MD Triglyceride [Mass/Vol] 132 mg/dL Normal <150 [facility] Comment on above: Order Comment: FASTI NG:YES AN UPDATE OR CORRECTION HAS BEEN MADE TO NAME FASTING: YES Performed By: #### 7 877, 58169 #### [facility] [address], [address] [place] [address] Forklift Material Handler: Chadwick Suárez MD Office Visit (Oncology Surge [...] was referred to Dr. Francisca Rose at [facility] for medical oncology consultation for her [...] be referred to Dr. Francisca Rose at [facility] for medical oncology consultation. Her care [...] Bacteria identified Cx Nom (Unsp spec) Abnormal CQ-Hgwiinu-U [facility] Work Phone: MISCELLANEOUS CULT./SM.BACT. on 12-04-2020 MISCELLANEOUS CULT./SM.BACT. PATIENT: THERESA LUU LOCATION: [facility] BILL#: [id number] : 47 AGE: SEX: F ORDERED BY: [...] DOSE DEPENDENT NS=NONSUSCEPTIBLE X=REPORTED IN ERROR Normal [facility] Comment on above: Performed By: #### M [facility] #### [facility] [address] [place] [address] Office Visit (Oncology Surge ry)on 12-04-2020 Follow-up [...] referred to Dr. Francisca Rose at [facility] for medical oncology consultation. Her [...] The s (more content not included)... Normal Zapproved Office Visit (Oncology Surge ry)on 11-27-2020 Follow-up [...] referred to Dr. Francisca Rose at [facility] for medical oncology consultation. Her [...] Malignant jerson (more content not included)... Normal Zapproved Dermatopathologyon 1 Dermatopathology [facility] Dermatopathology Laboratory [address] [place] [id number] DERMATOPATHOLOGY REPORT Name:THERESA LUU Shanice Med. Rec #. 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 Clinical History: A: [place] lymph n (more content not included)... Normal [facility] Comment on above: Performed By: #### D #### Dermatopathology LYMPH GLANDon 11-16-2020 LYMPH GLAND Patient Name: THERESA LUU STUDY: LYMPH GLAND; 11/16/2020 10:05 am INDICATION: Malignant melanoma of left lower leg. COMPARISON: PET-CT 10/31/2020. ACCESSION NUMBER(S): [id number] ORDERING CLINICIAN: ALEX TRAMMELL TECHNIQUE: DIVISION OF [...] [facility] [place] No Panel Informationon 11-16 [facility] Work Phone: Order Reconciliationon [...] Time: 15 minute(s)Clinician Notes: Aylin-operative order ONLY 07-May-2021 10:27 Promethazine IV Piggy Back is not required Home Medications Added During Discharge Reconciliation traMADol 50 mg oral tablet 1 tab(s) orally every 6 hours, As Needed pain All Active Home Medications at time of Discharge Reconciliation: 16-Nov-2020 13:16 traMADol 50 mg oral tablet 1 tab(s) orally every 6 hours, As Needed pain Normal [facility] Patient Profile - Preop v2on 11-16-2020 Patient Profile - Preop v2 Profile: Initial Info: How to be Addressedpamela(1) Spoken Language PreferredEnglish (1) Source of Informationpatient Are you currently using the Personal Electronic Health Record or [facility] Stated Reason for Admissionmelanoma on my lower left leg Primary Contact Name and Numberdonna-cousin Other Contact Names and Numberssue-friend Patient Belongingsremains with patient; patient educated regarding responsibility for personal items Patient Belongings Remaining with Patientclothing Medications Brought to Hospitalno General Health: Weight in kg90 kilogram(s) Weight in bht408.4 pound(s) Weight Methodactual (measured) Scale Typechair Height in feet5 feet Height in inches2 inch(es) Height in cm157.4 centimeter(s) Height Methodstated BMI (kg/m2)36.327 square meter Patient or Family Member Reaction to Anesthesiano previous reaction Blood Avoidance/Restrictionsnone Previous Transfusion Reactionno Health Mgmt: Symptoms/Conditions Managed at Homecancer Cancer Symptoms/Conditionsmelanom a Barriers to Managing Healthnone Relationship/Environ: Living Arrangementshouse Lives Withalone Resource/Environmental Concernsnone Anticipated Transition [place] [facility] Anticipated at Transitionnone Substance: Current or [...] material; individual instruction Cultural Considerationsnone Developmental Considerationsnone Shinto Considerationsnone Other learner availableno [place] RiskPatient location [...] Profile - Preop v2 14-Nov-2020 09:30 Normal [facility] Preop Checkliston 11-16-2020 Preop Checklist Preop Checklist: Preop Checklist: Arrival [id number] Arrival Time06:04 NPO [id number] 22:00 ID Band Onyes Allergy Bandno known [...] 16-Nov-2020 06:31 by Deepa Zazueta (GABY) Normal [facility] Radiologyon 11-16-2020 NM Lymph node Views Normal [facility] Work Phone: BASIC METABOLIC PANELon Anion gap [Moles/Vol] 10 mmol/L Normal 10 - 20 [facility] Comment on above: Performed By: #### B MP #### [address] [address] Calcium [Mass/Vol] 9.2 mg/dL Normal 8.6 - 10.3 [facility] Comment on above: Performed By: #### B MP #### [address] [address] Chloride [Moles/Vol] 105 mmol/L Normal 98 - 107 [facility] Comment on above: Performed By: #### B MP #### [address] [address] Creatinine [Mass/Vol] 0.81 mg/dL Normal 0.50 - 1.05 [facility] Comment on above: Performed By: #### B MP #### [address] [address] GFR- AM. >60 Normal >60 [facility] Comment on above: Result Comment: CALC ULATIONS OF ESTIMATED GFR ARE PERFORMED USING THE MDRD STUDY EQUATION FOR THE IDMS-TRACEABLE CREATININE METHODS. CLIN CHEM 2007;53:766-72 Performed By: #### B MP #### [address] [address] GFR-NON AM. >60 Normal >60 [facility] Comment on above: Performed By: #### B MP #### [address] [place] [address] Glucose [Mass/Vol] 95 mg/dL Normal 74 - 99 [facility] Comment on above: Performed By: #### B MP #### [address] [place] [address] HCO3 (Bld) [Moles/Vol] 30 mmol/L Normal 21 - 32 [facility] Comment on above: Performed By: #### B MP #### [address] [place] [address] Potassium [Moles/Vol] 4.1 mmol/L Normal 3.5 - 5.3 [facility] Comment on above: Performed By: #### B MP #### [address] [place] [address] Sodium [Moles/Vol] 141 mmol/L Normal 136 - 145 [facility] Comment on above: Performed By: #### B MP #### [address] [place] [address] Urea nitrogen [Mass/Vol] 16 mg/dL Normal 6 - 23 [facility] Comment on above: Performed By: #### B MP #### [address] [place] [address] CORONAVIRUS 2019, SCREEN ASY MPTOMATICon 11-14-2020 SARS-CoV-2 (COVID-19) RNA BENOIT+probe Ql (Unsp spec) Not detected Normal Not Detected [facility] Comment on above: Result Comment: . This [...] this test method. Fact sheet for providers: https://www.fda.gov/media/947063/download Fact sheet for patients: https://www.fda.gov/media/160780/download This test has received FDA Emergency Use Authorization [EUA] and has been verified by [facility] ([facility]). This test is only authorized for the [...] testing. Testing is performed in the [facility] laboratories located at [address] [place] [address]. Performed By: #### C OVSC #### [place] [address] Lab Specimen Source Nasal, Nasopharyngeal Normal [facility] Comment on above: Performed By: #### C OVSC #### [place] [address] Coronavirus 2019 RNA by PCR, Screening Asymptomticon 11-14-2020 Coronavirus 2019 RNA by PCR, Screening Asymptomtic Not detected Normal See Below [facility] Work Phone: Comment on [...] this test method. Fact sheet for providers: https://www.fda.gov/media/535125/downloadFact sheet for patients: https://www.fda.gov/media/748198/downloadThis test has received FDA Emergency Use Authorization [EUA] and has been verified by [facility] ([facility]). This test is only authorized for the [...] testing. Testing is performed in the [facility] laboratories located at [address] [place] [address]. Covid 19 Resultson 1 SARS-CoV-2 (COVID-19) RNA [...] may also be contacted by the [facility] to see if any of your [...] or Naproxen (Aleve) can also be used. Arrw-vry-hsfvqpu cough and cold medicines can be used according to the instructions on the package. Some ncno-ahy-vvqclaf medicines also contain acetaminophen. Make sure you [...] water are not available, use alcohol-based hand gluer machine operator. Avoid touching your eyes, nose, and [...] 24 sivakumar (more content not included)... Normal [facility] Laboratory - Chemistry and C hemistry - challengeon 11-14-2020 Anion gap [Moles/Vol] 10 mmol/L 10 - 20 [facility] Work Phone: [phone] Calcium [Mass/Vol] 9.2 mg/dL 8.6 - 10.3 [facility] Work Phone: [phone] Chloride [Moles/Vol] 105 mmol/L 98 - 107 [facility] Work Phone: [phone] CO2 [Moles/Vol] 30 mmol/L 21 - 32 [facility] Work Phone: [phone] Creatinine [Mass/Vol] 0.81 mg/dL See Below - SurgeryS [facility] Work Phone: [phone] Comment on above: Reference Range: 0.5 0 - 1.05 Glucose [Mass/Vol] 95 mg/dL 74 - 99 [facility] Work Phone: [phone] Potassium [Moles/Vol] 4.1 mmol/L 3.5 - 5.3 MG- SurgeryS [facility] Work Phone: [phone] Sodium [Moles/Vol] 141 mmol/L 136 - 145 [facility] Work Phone: [phone] Urea nitrogen [Mass/Vol] 16 mg/dL 6 - 23 RB-Pgpvlqm-E [facility] Work Phone: [phone] No Panel Informationon 11-14 >60 >60 KF-Qmxnpjb-K [facility] Work Phone: Comment on above: CALCULATIONS OF DENIS MATED GFR ARE PERFORMED USING THE MDRD STUDY EQUATION FOR THE IDMS-TRACEABLE CREATININE METHODS. CLIN CHEM 2007;53:766-72 [email or web address] 1:8080 /musescripts/museweb.dll?R etrieveTestByDateTime?Rachel wboLW=[id number]&Date=11-14&Time=09%3a51%3a40%3a 00&TestType=ECG&Site=12&Ou tputType=PDF&Ext=PDF DP-Csvvkmd-V [facility] Work Phone: [phone] Normal sinus rhythm MG-Burton rgery-S [facility] Work Phone: [phone] Normal JR-Owmrtli-I [facility] Work Phone: [phone] TZ-Bzdonpz-D [facility] Work Phone: [phone] BZ-Qlgizlt-L [facility] Work Phone: [phone] YR-Iyakkyv-R [facility] Work Phone: [phone] VH-Ftxpxbm-J [facility] Work Phone: [phone] TI-Fuyhchd-O [facility] Work Phone: [phone] CM-Ljdmvag-C [facility] Work Phone: [phone] LV-Rkoqngh-E [facility] Work Phone: [phone] RA-Xpaqscf-K [facility] Work Phone: [phone] 1 PL-Rizqgio-U [facility] Work Phone: [phone] 1 EL-Mqrruns-Z [facility] Work Phone: [phone] HO-Bviogja-Y [facility] Work Phone: [phone] VO-Apjxigf-B [facility] Work Phone: [phone] XQ-Nkrtizz-V [facility] Work Phone: [phone] BK-Fmhwldf-S [facility] Work Phone: PET/CT MELANOMA INITIAL STAG Tyrone [...] leg biopsy-proven melanoma. COMPARISON: None. ACCESSION NUMBER(S): [id number] ORDERING CLINICIAN: ALEX TRAMMELL TECHNIQUE: DIVISION OF [...] CODING: Initial Treatment Strategy (PI) CALIBRATION: Dose Tbsdphpdk-vj-Fwrq Interval (mins): 72 min Mediastinal bloodpool SUV [...] signed by: IVELISSE OVALLE MD Normal [facility] Office Visit (Oncology Surge ry)on 10-23-2020 [...] use of (more content not included)... Normal Zapproved [facility] Surgical Pathology Depar tmenton 10-16-2020 [facility] Surgical Pathology Department Name THERESA LUU Pathologist: SHER DIAS MD Date of Procedure: 10/16/2020 Date Received: 10/31/2020 Date Reported 11/02/2020 Submitting Physician: SURAJ MELGAR MD Location: [facility] FINAL DIAGNOSIS RESULTS OF ANCILLARY [...] extraction and testing are performed in the [facility] Translational Laboratory (TL) located at [address] [place] [address] (CLIA License #[id number], CAP #[id number]). This laboratory developed test was developed and [...] as m (more content not included)... Normal [facility] Comment on above: Performed By: #### U HCS #### [facility] Surgical Pathology Department [address] [facility] [address] Vital Signs Date Time Vital Sign Value Performing Clinician Facility 01-22-2024 09:19-0400 Body temperature 98 [degF] DO Yoni Furlong Work Phone: [facility] 01-22-2024 09:19-0400 Body weight 85.72 kg DO Yoni Furlong Work Phone: [facility] 01-22-2024 09:19-0400 Diastolic blood pressure 64 mm[Hg] DO Yoni Furlong Work Phone: [facility] 01-22-2024 09:19-0400 Heart rate 80 /min DO Yoni Furlong Work Phone: [facility] 01-22-2024 09:19-0400 Respiratory rate 20 /min DO Yoni Furlong Work Phone: [facility] 01-22-2024 09:19-0400 SaO2% (BldA) [Mass fraction] 96 % DO Yoni Furlong Work Phone: [facility] 01-22-2024 09:19-0400 Systolic blood pressure 134 mm[Hg] DO Yoni Furlong Work Phone: [facility] 12-25-2023 13:25-0400 Body temperature 97.8 [degF] DO Yoni Furlong Work Phone: [facility] 12-25-2023 13:25-0400 Diastolic blood pressure 72 mm[Hg] DO Yoni Furlong Work Phone: [facility] 12-25-2023 13:25-0400 Heart rate 99 /min DO Yoni Furlong Work Phone: [facility] 12-25-2023 13:25-0400 Respiratory rate 16 /min DO Yoni Furlong Work Phone: [facility] 12-25-2023 13:25-0400 SaO2% (BldA) [Mass fraction] 95 % DO Yoni Furlong Work Phone: [facility] 12-25-2023 13:25-0400 Systolic blood pressure 124 mm[Hg] DO Yoni Furlong Work Phone: [facility] 09-30-2023 16:29-0400 Body height 157.5 cm 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 SP[employer]CH[employer] ARMAMENT Work Phone: [facility] [employer] 09-30-2023 16:29-0400 Body mass index (BMI) [Ratio] 34.42 kg/m2 Virginiabrenda Mixon [employer]CH[employer]IC ARM[employer]ENT Work Phone: [employer] 09-30-2023 16:29-0400 Body temperature 99.19 [degF] 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 [employer]CH[employer] ARMAMENT Work Phone: [employer] 09-30-2023 16:29-0400 Body weight 85.37 kg Virginiabrenda Mixon [employer] Work Phone: [employer] 09-30-2023 16:29-0400 Diastolic blood pressure 60 mm[Hg] 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 [employer]CH[employer] ARMAMENT Work Phone: [employer] 09-30-2023 16:29-0400 Heart rate 94 /min Virginiabrenda Mixon [employer]CH[employer]ENT Work Phone: [employer] 09-30-2023 16:29-0400 SaO2% (BldA) [Mass fraction] 96 % Virginiabrenda Mixon [employer]CH[employer] ARMAMENT Work Phone: [employer] 09-30-2023 16:29-0400 Systolic blood pressure 120 mm[Hg] 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 [employer]CH[employer] ARM[employer]ENT Work Phone: [employer] 09-15-2023 16:00-0500 Body height 157.5 cm Yoni Furlong DO Work Phone: [employer] 09-15-2023 16:00-0500 Body mass index (BMI) [Ratio] 34.84 kg/m2 Yoni Furlong DO Work Phone: [facility] 09-15-2023 16:00-0500 Body temperature 98.91 [degF] Yoni Furlong DO Work Phone: [facility] 09-15-2023 16:00-0500 Body weight 86.41 kg Yoni Furlong DO Work Phone: [facility] 09-15-2023 16:00-0500 Diastolic blood pressure 50 mm[Hg] Yoni Furlong DO Work Phone: [facility] 09-15-2023 16:00-0500 Heart rate 80 /min Yoni Furlong DO Work Phone: [facility] 09-15-2023 16:00-0500 SaO2% (BldA) [Mass fraction] 96 % Yoni Furlong DO Work Phone: [facility] 09-15-2023 16:00-0500 Systolic blood pressure 130 mm[Hg] Yoni Furlong DO Work Phone: [facility] 08-07-2023 11:24-0500 Body temperature 98.2 [degF] DO Yoni Furlong Work Phone: [facility] 08-07-2023 11:24-0500 Body weight 89.35 kg DO Yoni Furlong Work Phone: [facility] 08-07-2023 11:24-0500 Diastolic blood pressure 70 mm[Hg] DO Yoni Furlong Work Phone: [facility] 08-07-2023 11:24-0500 Heart rate 88 /min DO Yoni Furlong Work Phone: [facility] 08-07-2023 11:24-0500 Respiratory rate 18 /min DO Yoni Furlong Work Phone: [facility] 08-07-2023 11:24-0500 SaO2% (BldA) [Mass fraction] 98 % DO Yoni Furlong Work Phone: [facility] 08-07-2023 11:24-0500 Systolic blood pressure 151 mm[Hg] DO Yoni Furlong Work Phone: [facility] 07-14-2023 13:32-0500 Body temperature 98.2 [degF] DO Yoni Furlong Work Phone: [facility] 07-14-2023 13:32-0500 Diastolic blood pressure 78 mm[Hg] DO Yoni Furlong Work Phone: [facility] 07-14-2023 13:32-0500 Heart rate 81 /min DO Yoni Furlong Work Phone: [facility] 07-14-2023 13:32-0500 Respiratory rate 18 /min DO Yoni Furlong Work Phone: [facility] 07-14-2023 13:32-0500 SaO2% (BldA) [Mass fraction] 97 % DO Yoni Furlong Work Phone: [facility] 07-14-2023 13:32-0500 Systolic blood pressure 113 mm[Hg] DO Yoni Furlong Work Phone: [facility] 03-24-2023 10:14-0400 Body height 160.02 cm DO Yoni Furlong Work Phone: [facility] 03-06-2023 13:49-0400 Body temperature 97.8 [degF] DO Yoni Furlong Work Phone: [facility] 03-06-2023 13:49-0400 Body weight 89.35 kg DO Yoni Furlong Work Phone: [facility] 03-06-2023 13:49-0400 Diastolic blood pressure 71 mm[Hg] DO Yoni Furlong Work Phone: [facility] 03-06-2023 13:49-0400 Heart rate 87 /min DO Yoni Furlong Work Phone: [facility] 03-06-2023 13:49-0400 Respiratory rate 16 /min DO Yoni Furlong Work Phone: [facility] 03-06-2023 13:49-0400 SaO2% (BldA) [Mass fraction] 94 % DO Yoni Flare3dlong Work Phone: [facility] 03-06-2023 13:49-0400 Systolic blood pressure 139 mm[Hg] DO Yoni Furlong Work Phone: [facility] 01-27-2023 10:30-0400 Body temperature 97.5 [degF] Kimber Reidraw Other [employer] Other 01-27-2023 10:30-0400 Body weight 87.54 kg Kimber Reidraw Other [employer] Other 01-27-2023 10:30-0400 Diastolic blood pressure 80 mm[Hg] Kimber Reidraw Other [employer] Other 01-27-2023 10:30-0400 SaO2% (BldA) [Mass fraction] 96 % Kimber Reidraw Other [employer] Other 01-27-2023 10:30-0400 Systolic blood pressure 159 mm[Hg] Kimber Reidraw Other [employer] Other 01-27-2023 10:23-0400 Body temperature 97.5 [degF] DO Vimaginolong Work Phone: [facility] 01-27-2023 10:23-0400 Body weight 88.49 kg DO Yoni Furlong Work Phone: [facility] 01-27-2023 10:23-0400 Diastolic blood pressure 80 mm[Hg] DO Yoni Furlong Work Phone: [facility] 01-27-2023 10:23-0400 Heart rate 90 /min DO Yoni Furlong Work Phone: [facility] 01-27-2023 10:23-0400 Respiratory rate 18 /min DO Yoni Furlong Work Phone: [facility] 01-27-2023 10:23-0400 SaO2% (BldA) [Mass fraction] 96 % DO Yoni Furlong Work Phone: [facility] 01-27-2023 10:23-0400 Systolic blood pressure 159 mm[Hg] DO Yoni Furlong Work Phone: [facility] 12-30-2022 09:56-0400 Body weight 88.45 kg DO Yoni Furlong Work Phone: [facility] 12-30-2022 08:26-0400 Body temperature 97.8 [degF] DO Yoni Furlong Work Phone: [facility] 12-30-2022 08:26-0400 Body weight 88.45 kg DO Yoni Furlong Work Phone: [facility] 12-30-2022 08:26-0400 Diastolic blood pressure 81 mm[Hg] DO Ynoi Furlong Work Phone: [facility] 12-30-2022 08:26-0400 Heart rate 86 /min DO Yoni Furlong Work Phone: [facility] 12-30-2022 08:26-0400 Respiratory rate 16 /min DO Yoni Furlong Work Phone: [facility] 12-30-2022 08:26-0400 SaO2% (BldA) [Mass fraction] 98 % DO Yoni Furlong Work Phone: [facility] 12-30-2022 08:26-0400 Systolic blood pressure 132 mm[Hg] DO Yoni Furlong Work Phone: [facility] 09-08-2022 11:09-0500 Body weight 90.2 kg DO Yoni Furlong Work Phone: [facility] 09-08-2022 09:52-0500 Body temperature 97.9 [degF] DO Yoni Furlong Work Phone: [facility] 09-08-2022 09:52-0500 Body weight 90.2 kg DO Yoni Furlong Work Phone: [facility] 09-08-2022 09:52-0500 Diastolic blood pressure 82 mm[Hg] DO Yoni Furlong Work Phone: [facility] 09-08-2022 09:52-0500 Heart rate 78 /min DO Yoni Furlong Work Phone: [facility] 09-08-2022 09:52-0500 Respiratory rate 20 /min DO Yoni Furlong Work Phone: [facility] 09-08-2022 09:52-0500 SaO2% (BldA) [Mass fraction] 97 % DO Yoni Furlong Work Phone: [facility] 09-08-2022 09:52-0500 Systolic blood pressure 137 mm[Hg] DO Yoni Furlong Work Phone: [facility] 08-11-2022 11:25-0500 Body weight 89.4 kg DO Yoni Furlong Work Phone: [facility] 08-11-2022 10:28-0500 Body height 160.02 cm DO Yoni Furlong Work Phone: [facility] 08-11-2022 10:28-0500 Body temperature 97.4 [degF] DO Ynoi Furlong Work Phone: [facility] 08-11-2022 10:28-0500 Diastolic blood pressure 68 mm[Hg] DO Yoni Furlong Work Phone: [facility] 08-11-2022 10:28-0500 Heart rate 82 /min DO Yoni Furlong Work Phone: [facility] 08-11-2022 10:28-0500 Respiratory rate 20 /min DO Yoni Furlong Work Phone: [facility] 08-11-2022 10:28-0500 SaO2% (BldA) [Mass fraction] 98 % DO Yoni Furlong Work Phone: [facility] 08-11-2022 10:28-0500 Systolic blood pressure 132 mm[Hg] DO Yoni Furlong Work Phone: [facility] 06-23-2022 12:05-0500 Body weight 88.6 kg DO Yoni Furlong Work Phone: [facility] 06-23-2022 10:44-0500 Body temperature 97.9 [degF] DO Yoni Furlong Work Phone: [facility] 06-23-2022 10:44-0500 Body weight 88.6 kg DO Yoni Furlong Work Phone: [facility] 06-23-2022 10:44-0500 Diastolic blood pressure 74 mm[Hg] DO Yoni Furlong Work Phone: [facility] 06-23-2022 10:44-0500 Heart rate 80 /min DO Yoni Furlong Work Phone: [facility] 06-23-2022 10:44-0500 Respiratory rate 18 /min DO Yoni Furlong Work Phone: [facility] 06-23-2022 10:44-0500 SaO2% (BldA) [Mass fraction] 98 % DO Yoni Furlong Work Phone: [facility] 06-23-2022 10:44-0500 Systolic blood pressure 141 mm[Hg] DO Yoni Furlong Work Phone: [facility] 06-02-2022 10:29-0500 Body temperature 97.7 [degF] DO Yoni Furlong Work Phone: [facility] 06-02-2022 10:29-0500 Body weight 89.9 kg DO Yoni Furlong Work Phone: [facility] 06-02-2022 10:29-0500 Diastolic blood pressure 82 mm[Hg] DO Yoni Furlong Work Phone: [facility] 06-02-2022 10:29-0500 Heart rate 92 /min DO Yoni Furlong Work Phone: [facility] 06-02-2022 10:29-0500 Respiratory rate 16 /min DO Yoni Furlong Work Phone: [facility] 06-02-2022 10:29-0500 SaO2% (BldA) [Mass fraction] 97 % DO Yoni Furlong Work Phone: [facility] 06-02-2022 10:29-0500 Systolic blood pressure 150 mm[Hg] DO Yoni Furlong Work Phone: [facility] 05-02-2022 15:07-0400 Body weight 92.8 kg DO Yoni Furlong Work Phone: [facility] 05-02-2022 15:07-0400 Diastolic blood pressure 83 mm[Hg] DO Yoni Furlong Work Phone: [facility] 05-02-2022 15:07-0400 Heart rate 87 /min DO Yoni Furlong Work Phone: [facility] 05-02-2022 15:07-0400 Respiratory rate 20 /min DO Yoni Furlong Work Phone: [facility] 05-02-2022 15:07-0400 SaO2% (BldA) [Mass fraction] 98 % DO Yoni Furlong Work Phone: [facility] 05-02-2022 15:07-0400 Systolic blood pressure 146 mm[Hg] DO Yoni Furlong Work Phone: [facility] 04-28-2022 09:07-0400 Diastolic blood pressure 76 mm[Hg] DO Yoni Furlong Work Phone: [facility] 04-28-2022 09:07-0400 Heart rate 93 /min DO Yoni Furlong Work Phone: [facility] 04-28-2022 09:07-0400 Respiratory rate 18 /min DO Yoni Furlong Work Phone: [facility] 04-28-2022 09:07-0400 SaO2% (BldA) [Mass fraction] 95 % DO Yoni Furlong Work Phone: [facility] 04-28-2022 09:07-0400 Systolic blood pressure 148 mm[Hg] DO Yoni Furlong Work Phone: [facility] 04-28-2022 08:11-0400 Body height 157.48 cm DO Yoni Furlong Work Phone: [facility] 04-28-2022 08:11-0400 Body temperature 98.6 [degF] DO Yoni Furlong Work Phone: [facility] 04-28-2022 08:11-0400 Body weight 91.17 kg DO Yoni Furlong Work Phone: [facility] 04-21-2022 08:54-0400 Body height 160.02 cm DO Yoni Furlong Work Phone: [facility] 04-21-2022 08:54-0400 Body temperature 98 [degF] DO Yoni Furlong Work Phone: [facility] 04-21-2022 08:54-0400 Body weight 91.48 kg DO Yoni Furlong Work Phone: [facility] 04-21-2022 08:54-0400 Diastolic blood pressure 87 mm[Hg] DO Yoni Furlong Work Phone: [facility] 04-21-2022 08:54-0400 Heart rate 85 /min DO Yoni Furlong Work Phone: [facility] 04-21-2022 08:54-0400 Respiratory rate 20 /min DO Yoni Furlong Work Phone: [facility] 04-21-2022 08:54-0400 SaO2% (BldA) [Mass fraction] 97 % DO Yoni Furlong Work Phone: [facility] 04-21-2022 08:54-0400 Systolic blood pressure 161 mm[Hg] DO Yoni Furlong Work Phone: [facility] 10-25-2021 09:45-0400 Body temperature 98 [degF] MD Alex Trammell Work Phone: [facility] 10-25-2021 09:45-0400 Body weight 90.94 kg MD Alex Trammell Work Phone: [facility] 10-25-2021 09:45-0400 Diastolic blood pressure 70 mm[Hg] MD Alex Trammell Work Phone: [facility] 10-25-2021 09:45-0400 Heart rate 90 /min MD Alex Trammell Work Phone: [facility] 10-25-2021 09:45-0400 Respiratory rate 20 /min MD Alex Trammell Work Phone: [facility] 10-25-2021 09:45-0400 SaO2% (BldA) [Mass fraction] 98 % MD Alex Trammell Work Phone: [facility] 10-25-2021 09:45-0400 Systolic blood pressure 141 mm[Hg] MD Alex Trammell Work Phone: [facility] 10-07-2021 08:13-0400 Body temperature 98.1 [degF] DO Sly Adamowicz II Work Phone: [facility] 10-07-2021 08:13-0400 Body weight 92.8 kg DO Sly Adamowicz II Work Phone: [facility] 10-07-2021 08:13-0400 Diastolic blood pressure 78 mm[Hg] DO Sly Adamowicz II Work Phone: [facility] 10-07-2021 08:13-0400 Heart rate 96 /min DO Sly Adamowicz II Work Phone: [facility] 10-07-2021 08:13-0400 Respiratory rate 20 /min DO Sly Adamowicz II Work Phone: [facility] 10-07-2021 08:13-0400 SaO2% (BldA) [Mass fraction] 97 % DO Sly Adamowicz II Work Phone: [facility] 10-07-2021 08:13-0400 Systolic blood pressure 144 mm[Hg] DO Sly Adamowicz II Work Phone: [facility] 10-07-2021 08:05-0400 Body height 160.02 cm DO Sly Adamowicz II Work Phone: [facility] 09-17-2021 15:09-0500 Body temperature 98.6 [degF] Yoni Larson Furlong Work Phone: ID-Exqcmie-Slcpbda [id number] Work Phone: 09-17-2021 15:09-0500 Body weight 89.54 kg Yoni Larson Furlong Work Phone: UQ-Uuluuso-Cnhofql 4607 Work Phone: 09-17-2021 15:09-0500 Diastolic blood pressure 81 mm[Hg] Yoni Larson Furlong Work Phone: NM-Shxvuan-Elsktgf 4602 Work Phone: 09-17-2021 15:09-0500 Heart rate 101 /min Yoni Larson Furlong Work Phone: AP-Cnhacie-Hesgxoy 4605 Work Phone: 09-17-2021 15:09-0500 Respiratory rate 18 /min Yoni Larson Furlong Work Phone: IR-Zoxrhhr-Isnfjov 4608 Work Phone: 09-17-2021 15:09-0500 Systolic blood pressure 158 mm[Hg] Yoni Larson Furlong Work Phone: FJ-Iqgtpzb-Cqmifwu 4602 Work Phone: 01-22-2021 14:42-0400 Body weight 88.03 kg Yoni Larson Furlong Work Phone: WG-Fxxagzl-Psyhaovv 150 Work Phone: 01-22-2021 14:42-0400 Diastolic blood pressure 84 mm[Hg] Yoni Larson Furlong Work Phone: MJ-Dkeuzts-Gbpslcnh 150 Work Phone: 01-22-2021 14:42-0400 Heart rate 102 /min Yoni Larson Furlong Work Phone: XD-Bzyafee-Oozencpr 150 Work Phone: 01-22-2021 14:42-0400 SaO2% (BldA) [Mass fraction] 95 % Yoni Larson Furlong Work Phone: OD-Lrjcbfo-Dycpvhhc 150 Work Phone: 01-22-2021 14:42-0400 Systolic blood pressure 149 mm[Hg] Yoni G Furlong Work Phone: SB-Cowyhad-Musjjsbp 150 Work Phone: 12-25-2020 15:23-0400 Body weight 89.36 kg Yoni Prolong Work Phone: [facility] Work Phone: 12-25-2020 15:23-0400 Diastolic blood pressure 85 mm[Hg] Yoni Prolong Work Phone: [facility] Work Phone: 12-25-2020 15:23-0400 Heart rate 105 /min Yoni Prolong Work Phone: [facility] Work Phone: 12-25-2020 15:23-0400 SaO2% (BldA) [Mass fraction] 95 % Yoni Prolong Work Phone: [facility] Work Phone: 12-25-2020 15:23-0400 Systolic blood pressure 163 mm[Hg] Yoni Larson Furlong Work Phone: [facility] Work Phone: 12-04-2020 15:07-0400 Diastolic blood pressure 84 mm[Hg] Yoni Larson Furlong Work Phone: [facility] Work Phone: 05-25-2021 15:07-0400 Heart rate 111 /min Yoni Muller Work Phone: [facility] SM Work Phone: 12-04-2020 15:07-0400 SaO2% (BldA) [Mass fraction] 98 % Yoni Muller Work Phone: [facility] SM Work Phone: 12-04-2020 15:07-0400 Systolic blood pressure 154 mm[Hg] Yoni Hollowayng Work Phone: [facility] SM Work Phone: 11-27-2020 15:10-0400 Body weight 90.72 kg Yoni Muller Work Phone: [facility] Work Phone: 11-27-2020 15:10-0400 Diastolic blood pressure 79 mm[Hg] Yoni Hollowayng Work Phone: [facility] Work Phone: 11-27-2020 15:10-0400 Heart rate 98 /min Yoni Muller Work Phone: [facility] Work Phone: 11-27-2020 15:10-0400 SaO2% (BldA) [Mass fraction] 96 % Yoni Hollowayng Work Phone: [facility] Work Phone: 11-27-2020 15:10-0400 Systolic blood pressure 138 mm[Hg] Yoni Hollowayng Work Phone: [facility] Work Phone: 1945 23:00-0500 >na< Quentin Fitzpatrick Dept. of Eleazar matology Encounters Encounter Date Encounter Type Care Provider Facility Start: 03-18-2024 ambulatory Alex Trammell Facility:[facility] Start: 01-22-2024 Registered Recurring DO Yonijanee Prolong [facility] Work Phone: Start: 01-22-2024 End: 01-22-2024 ambulatory DO Yonijanee Prolong Work Phone: [facility] Work Phone: Start: 01-22-2024 End: 01-22-2024 Patient encounter procedure DO Yoni Mortezalong Work Phone: [facility] Work Phone: Start: 09-30-2023 End: 09-30-2023 Office outpatient visit 15 minutes 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 [employer] Work Phone: [facility] Comment on above: Injury of left wrist , initial encounter (Primary Dx) Start: 09-17-2023 Orders Only Yoni Holloway ng DO Work Phone: [facility] Start: 09-15-2023 End: 09-15-2023 Office outpatient visit 25 minutes Yoni Hollowayng DO Work Phone: [facility] [...] Registered Recurring DO Yoni Furlong Work Phone[facility] Work Phone: Start: 08-07-2023 End: 08-07-2023 Patient encounter procedure DO Yoni Furlong Work Phone: [facility] Work Phone: Start: 08-07-2023 End: 08-07-2023 ambulatory DO Yoni Furlong Work Phone: [facility] Work Phone: Start: 03-06-2023 End: 03-06-2023 ambulatory DO Yoni Furlong Work Phone: [facility] Work Phone: Start: 03-06-2023 End: 03-06-2023 Registered Recurring DO Yoni Furlong Work Phone[facility] Work Phone: Start: 01-27-2023 Office outpatient vi sit 25 minutes Kimber Lacy [facility] Start: 01-27-2023 End: 01-27-2023 ambulatory DO Yoni Furlong Work Phone: [facility] Work Phone: Start: 01-27-2023 End: 01-27-2023 Registered Recurring DO Yoni Furlong Work Phone: [facility] Work Phone: Start: 12-30-2022 End: 12-30-2022 ambulatory DO Yoni Furlong Work Phone: [facility] Work Phone: Start: 12-30-2022 End: 12-30-2022 Registered Recurring DO Yoni Furlong Work Phone[facility] Work Phone: Start: 12-30-2022 End: 12-30-2022 ambulatory DO Yoni Furlong Work Phone: [facility] Work Phone: Start: 12-30-2022 End: 12-30-2022 Registered Recurring DO Yoni Furlong Work Phone: [facility] Work Phone: Start: 10-03-2022 End: 10-04-2022 ambulatory SLY BENSON Facility:[facility] Start: 09-08-2022 End: 09-08-2022 ambulatory DO Yoni Furlong Work Phone: [facility] Work Phone: Start: 09-08-2022 End: 09-08-2022 Registered Recurring DO Yoni Furlong Work Phone: [facility] Work Phone: Start: 09-05-2022 End: 09-06-[address] YONI MULLER Facility:[facility] Start: 08-11-2022 End: 08-11-2022 ambulatory DO Yoni Furlong Work Phone: [facility] Work Phone: Start: 08-11-2022 End: 08-11-2022 Registered Recurring DO Yoni Furlong Work Phone: [facility] Work Phone: Start: 07-21-2022 End: 07-22-2022 ambulatory SLY BENSON Facility:[facility] Start: 06-23-2022 End: 06-23-2022 ambulatory DO Yoni Furlong Work Phone: [facility] Work Phone: Start: 06-23-2022 End: 06-23-2022 Registered Recurring DO Yoni Furlong Work Phone: [facility] Start: 06-23-2022 End: 06-23-2022 ambulatory DO Yoni Furlong Work Phone: [facility] Work Phone: Start: 06-23-2022 End: 06-23-2022 Registered Recurring DO Yoni Furlong [facility] Start: 06-20-2022 End: 06-21-[address] YONI MULLER Facility:[facility] Start: 06-02-2022 End: 06-02-2022 ambulatory DO Yoni Furlong Work Phone: [facility] Work Phone: Start: 06-02-2022 End: 06-02-2022 Registered Recurring DO Yoni Furlong Work [facility] Start: 05-30-2022 End: 05-31-2022 ambulatory SLY BENSON Facility:[facility] Start: 05-13-2022 End: 05-14-2022 ambulatory SLY BENSON Facility:[facility] Start: 05-10-2022 End: 05-11-2022 ambulatory SLY BENSON Facility:[facility] Start: 05-02-2022 End: 05-02-2022 ambulatory DO Yoni Furlong Work Phone: [facility] Work Phone: Start: 05-02-2022 End: 05-02-2022 Registered Recurring DO Yoni Furlong Work Phone[facility] Start: 04-28-2022 End: 04-28-2022 Admission to same day surgery center DO Yoni Furlong Work Phone: [facility] [place] Start: 04-28-2022 End: 04-28-2022 ambulatory DO Yoni Furlong Work Phone: [facility] Work Phone: Start: 04-21-2022 End: 04-21-2022 ambulatory DO Yoni Furlong Work Phone: [facility] Work Phone: Start: 04-21-2022 End: 04-21-2022 Registered Recurring DO Yoni Muller Work Phone[facility] Start: 03-26-2022 End: 03-26-2022 Patient encounter procedure DO Yoni Muller Work Phone: [facility] [place] Start: 10-25-2021 End: 10-25-2021 Registered Recurring MD Alex Trammell Work Phone: [facility] Start: 10-10-2021 End: 10-10-2021 Patient encounter procedure DO Sly Benson II Work Phone: [facility] [place] Start: 10-07-2021 End: 10-07-2021 Registered Recurring DO Sly Hernandezconnoricz II Work Phone: [facility] Start: 10-07-2021 Registered Recurring DO Mananmarin law Kelley II Work Phone: [facility] Start: 09-24-2021 AUDIT Yoni Prolast edmar Work Phone: [id number] Work Phone: Start: 09-23-2021 Chart Update Yoni Prolast hyatt Work Phone: [facility] Work [facility]: Start: 09-17-2021 Office outpatient ne w 30 minutes Yoni Neo Prohelena Work Phone: QJ-Jcoxssv-Caidcll [id number] Work Phone: Start: 09-17-2021 Office outpatient vi sit 15 minutes Yoni Larson Mortezalastng Work Phone: GO[facility]Osmyagi-Uklbk Main Work Phone: Start: 01-22-2021 Office outpatient vi sit 15 minutes Yoni Larson Mortezahelena Work Phone: [facility] 150 Work Phone: Start: 01-12-2021 AUDIT Yoni Holloway ng Work Phone: [facility] Work Phone: Start: 12-25-2020 Office outpatient vi sit 25 minutes Yoni Muller Work Phone: [facility] 150 Work Phone: Start: 12-25-2020 Patient encounter procedure Yoni Muller Work Phone: [facility] Work Phone: Start: 12-17-2020 AUDIT Yoni hyatt Work Phone: [facility] Work Phone: Start: 12-04-2020 FUV, Provider: Alex Trammell, Status: Pen, Time: 3:00 PM Yoni Muller Work Phone: [facility] Work Phone: Start: 12-04-2020 Patient encounter procedure Yoni Muller Work Phone: [facility] Work Phone: Start: 11-27-2020 Postop follow up vis it related to original px Yoni Muller Work Phone: [facility] Work Phone: Start: 11-27-2020 Quentin Fitzpatrick Dep t. of Dermatology Start: 11-13-2020 Quentin Fitzpatrick Dep t. of Dermatology Start: 10-23-2020 Quentin Fitzpatrick Dep t. of Dermatology Procedures Date Procedure Procedure Detail Performing Clinician Start: 01-20-2024 Computed tomography of abdomen and pelvis with contrast DO Yoni Muller Work Phone: Start: 01-20-2024 CT of thorax with contrast DO Yoni Furlong Work Phone: Start: 09-30-2023 Adult depression screening assessment 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 APRNPASQUALE Work Phone: Start: 09-15-2023 Adult depression screening [...] abdomen and pelvis with contrast DO Sly Benson II Work Phone: Start: 10-10-2021 CT of thorax with contrast DO Sly Benson II Work Phone: Start: 11-27-2020 Quentin Fitzpatrick Start: 11-13-2020 Quentin Fitzpatrick Start: 10-23-2020 Quentin Fitzpatrick Counseling Kimber Jeanette angel Other Plan of Treatment Date Care Activity Detail Author Start: 09-29-2024 Adult BMI Screening Adult BMI Screen ing [facility] Start: 09-29-2024 Depression Screening Depression Scre ening [facility] Start: 09-29-2024 Fall Risk Screening Fall Risk Screen ing [facility] Start: 09-29-2024 Tobacco Screening Tobacco Screening [facility] Start: 09-14-2024 Adult BMI Screening Adult BMI Screen ing [facility] Start: 09-14-2024 Depression Screening Depression Scre ening [facility] Start: 09-14-2024 Fall Risk Screening Fall Risk Screen ing [facility] Start: 09-14-2024 Tobacco Screening Tobacco Screening [facility] Start: 03-17-2024 End: 03-17-2024 Patient encounter procedure 03/17/2024 4:15 PM EDT Office Visit [facility] [address] [place] [address] Yoni Muller, DO [address], [place] [address] [facility] Start: 02-07-2024 Administration of va ricella zoster vaccine Zoster (Shingles) Vaccine (1 of 2) [facility] Comment on above: Postponed from 10/02 (Patient Refused) Start: 02-07-2024 Adult BMI Screening Adult BMI Screen ing [facility] Start: 02-07-2024 Depression Screening Depression Scre ening [facility] Start: 02-07-2024 DTaP,Tdap and Td Vac cines (1 - Tdap) DTaP,Tdap and Td Vaccines (1 - Tdap) [facility] Comment on above: Postponed from 10/02 (Patient Refused) Start: 02-07-2024 Tobacco Screening Tobacco Screening [facility] Start: 01-22-2024 [facility] Start: 01-11-2024 Medicare Annual Well ness Visit Medicare Annual Wellness Visit [facility] Comment on above: Postponed from 10/02 (Patient Refused) Start: 12-25-2023 [facility] Start: 12-25-2023 [facility] Start: 11-27-2023 [facility] Start: 10-30-2023 [facility] Start: 10-30-2023 [facility] Start: 10-11-2023 Influenza vaccination Influenza Vacc ine [facility] Comment on above: Postponed from 03/13 (Patient Refused) Start: 2023 [facility] Start: 2023 [facility] Start: 09-15-2023 End: 09-15-2023 Patient encounter procedure 09/15/2023 4:00 PM EST Office [facility] [address] [place] [address] Yoni Muller DO [address], [facility] [place] [address] [facility] Start: 09-04-2023 [facility] Start: 08-07-2023 [facility] Start: 08-07-2023 [facility] Start: 08-06-2023 End: 08-07-2023 [facility] Start: 08-06-2023 Adrenocorticotropic hormone measurement [facility] Start: 07-14-2023 [facility] Start: 07-14-2023 [facility] Start: 06-17-2023 Fall Risk Screening Fall Risk Screen ing [facility] Start: 06-16-2023 [facility] Start: 05-19-2023 [facility] Start: 04-21-2023 [facility] Start: 03-24-2023 [facility] Start: 03-13-2023 COVID-19 Vaccine ( season) COVID-19 Vaccine ( season) [facility] Start: 03-13-2023 Influenza vaccination Influenza Vacc ine [facility] Start: 02-24-2023 [facility] Start: 01-27-2023 [facility] Start: 01-27-2023 [facility] Start: 12-30-2022 Adrenocorticotropic hormone measurement [facility] Start: 12-30-2022 [facility] Start: 12-30-2022 [facility] Start: 12-25-2022 [facility] Start: 12-01-2022 [facility] Start: 11-03-2022 [facility] Start: 10-06-2022 [facility] Start: 09-08-2022 [facility] Start: 09-08-2022 [facility] Start: 08-11-2022 [facility] Start: 07-23-2022 [facility] Start: 06-23-2022 [facility] Start: 06-23-2022 Adrenocorticotropic hormone measurement [facility] Start: 06-23-2022 [facility] Start: 06-02-2022 [facility] Start: 05-12-2022 End: 05-12-2022 [facility] Start: 05-12-2022 [facility] Start: 04-28-2022 [facility] Start: 04-28-2022 [facility] Start: 04-28-2022 Aspiration [facility] Start: 02-19-2021 FUV, Provider: Alex Trammell, Status: Pen, Time: 3:00 PM [facility]UV, Provider: Alex Trammell, Status: Pen, Time: 3:00 PM [id number] 150 Work Phone: Start: 01-22-2021 FUV, Provider: Alex Trammell, Status: Pen, Time: 3:00 PM [facility]UV, Provider: Alex Trammell, Status: Pen, Time: 3:00 PM EB-[id number]-Vuqldfhv 150 Work Phone: Start: 12-25-2020 [facility]UV, Provider: Alex Trammell, Status: Pen, Time: 3:00 PM FUV, Provider: Alex Trammell, Status: Pen, Time: 3:00 PM [facility] Work Phone: Start: 1963 Adult BMI Follow Up Plan Adult BMI Follow Up Plan [employer] Adrenocorticotropic hormone measurement [facility] Adrenocorticotropic hormone measurement [facility] Work Phone: Adrenocorticotropic hormone measurement [facility] Adrenocorticotropic hormone measurement [facility] Adrenocorticotropic hormone measurement [facility] Adrenocorticotropic hormone measurement [facility] Adrenocorticotropic hormone measurement [facility] Adrenocorticotropic hormone measurement [facility] Adrenocorticotropic hormone measurement [facility] Adrenocorticotropic hormone measurement [facility] Adrenocorticotropic hormone measurement [facility] Basophils [#/volume] in Blood by Automated count [facility] Basophils/100 leukoc ytes in Blood by Automated count [facility] Blood chemistry [facility] Blood chemistry [facility] Comprehensive metabo lic 1999 panel - Serum or Plasma [facility] Comprehensive metabo lic 1999 panel - Serum or Plasma [facility] Comprehensive metabo lic 1999 panel - Serum or Plasma [facility] Comprehensive metabo lic 1999 panel - Serum or Plasma [facility] Comprehensive metabo lic 1999 panel - Serum or Plasma [facility] Comprehensive metabo lic 1999 panel - Serum or Plasma [facility] Comprehensive metabo lic 1999 panel - Serum or Plasma [facility] Comprehensive metabo lic 1999 panel - Serum or Plasma [facility] Comprehensive metabo lic 1999 panel - Serum or Plasma [facility] Comprehensive metabo lic 1999 panel - Serum or Plasma [facility] Comprehensive metabo lic 1999 panel - Serum or Plasma [facility] Computed tomography for radiotherapy planning [facility] Cortisol [Mass/volum e] in Serum or Plasma [facility] Cortisol [Mass/volum e] in Serum or Plasma [facility] Cortisol [Mass/volum e] in Serum or Plasma [facility] Work Phone: Cortisol [Mass/volum e] in Serum or Plasma [facility] Cortisol [Mass/volum e] in Serum or Plasma [facility] CT Abdomen and Pelvi s W contrast IV [facility] CT Abdomen and Pelvi s W contrast IV [facility] CT Abdomen and Pelvi s W contrast IV [facility] CT Abdomen and Pelvi s W contrast IV [facility] CT Abdomen and Pelvi s W contrast IV [facility] CT Chest W contrast IV [facility] CT Chest W contrast IV [facility] CT Chest W contrast IV [facility] CT Chest W contrast IV [facility] CT Chest W contrast IV [facility] Eosinophils/100 leuk ocytes in Blood by Automated count [facility] Erythrocyte distribu tion width [Ratio] by Automated count [facility] Erythrocyte sediment ation rate by Photometric method [facility] Erythrocytes [#/volu me] in Blood [facility] Hematocrit [Volume F raction] of Blood [facility] Hemoglobin [Mass/vol ume] in Blood [facility] Hepatic function panel [facility] Hepatic function panel [facility] Homogenous nuclear A b pattern [Titer] in Serum [facility] Work Phone: Lactate dehydrogenas e [Enzymatic activity/volume] in Unspecified specimen [facility] Lactate dehydrogenas e [Enzymatic activity/volume] in Unspecified specimen [facility] Lactate dehydrogenas e [Enzymatic activity/volume] in Unspecified specimen [facility] Lactate dehydrogenas e [Enzymatic activity/volume] in Unspecified specimen [facility] Lactate dehydrogenas e [Enzymatic activity/volume] in Unspecified specimen [facility] Leukocytes [#/volume ] corrected for nucleated erythrocytes in Blood by Automated coun [facility] Leukocytes [#/volume ] in Blood [facility] Lipase measurement [facility] Lipase measurement [facility] Lipase measurement [facility] Lymphocytes [#/volum e] in Blood by Automated count [facility] Lymphocytes/100 leuk ocytes in Blood by Automated count [facility] MCH [Entitic mass] b y Automated count [facility] MCHC [Mass/volume] b y Automated count [facility] MCV [Entitic volume] by Automated count [facility] Monocytes [#/volume] in Blood by Automated count [facility] Monocytes/100 leukoc ytes in Blood by Automated count [facility] Neutrophils [#/volum e] in Blood by Automated count [facility] Neutrophils/100 leuk ocytes in Blood by Automated count [facility] Nuclear Ab [Titer] in Serum [facility] Work Phone: Nucleated erythrocyt es [Presence] in Blood by Automated count [facility] Patient Education [facility] Work Phone: Platelet mean volume [Entitic volume] in Blood by Automated count [facility] Platelets [#/volume] in Blood [facility] Thyrotropin [Units/v olume] in Serum or Plasma [facility] Thyrotropin [Units/v olume] in Serum or Plasma [facility] Thyrotropin [Units/v olume] in Serum or Plasma [facility] Thyrotropin [Units/v olume] in Serum or Plasma [facility] Thyrotropin [Units/v olume] in Serum or Plasma [facility] Thyrotropin [Units/v olume] in Serum or Plasma [facility] Thyrotropin [Units/v olume] in Serum or Plasma [facility] Thyroxine (T4) free [Mass/volume] in Serum or Plasma [facility] Thyroxine (T4) free [Mass/volume] in Serum or Plasma [facility] Work Phone: Thyroxine (T4) free [Mass/volume] in Serum or Plasma [facility] Thyroxine (T4) free [Mass/volume] in Serum or Plasma [facility] Thyroxine (T4) free [Mass/volume] in Serum or Plasma [facility] Thyroxine (T4) free [Mass/volume] in Serum or Plasma [facility] Ultrasonic guidance for needle biopsy [facility] Immunizations Immunization Date Immunization Notes Care Provider Fa [facility] 1945 pneumococcal conjuga te vaccine, 7 valent Quentin Fitzpatrick Dept[facility] of Dermatology Payers Date Payer Category Payer Self-pay [id number] 2022 Medicare [id number] 1958 Private Health Insurance [id number] 1945 Unknown [id number] 1945 Unknown [id number] 1945 Unknown [id number] 1945 Unknown [id number] 1945 Unknown [id number] 1945 Unknown [id number] 1945 Unknown [id number] 1945 Unknown [id number] Unknown Unknown HCAP/HFA/FAP Active [id number] Unknown [id number] Unknown [id number] Social History Date Type Detail Facility Start: 10-23-2020 Dept[facility] of Dermatology Start: 1945 Sex Assigned At Female [facility] Start: 10-07-2021 End: 03-06-2023 Tobacco smoking status NHIS Never smoked tobacco (finding) [facility] Start: 06-17-2022 End: 09-30-2023 Sex Assigned At [facility] Other Start: 06-17-2022 Tobacco use and exposure Smokeless tobacco non-user [facility] Start: 02-06-2023 End: 09-30-2023 Alcohol intake Current drinker of alcohol (finding) [facility] Start: 06-17-2022 End: 09-30-2023 History of Social function [facility] Do you belong to any clubs or organizations such as congregational groups, unions, fraternal or athletic groups, or school groups? Yes [facility] Are you now , , , , never or living with a partner? [facility] How often to you hav e a drink containing alcohol? Monthly or less [facility] How many standard dr inks containing alcohol do you have on a typical day? 1 or 2 [facility] How often do you hav e 6 or more drinks on 1 occasion? Never [facility] How hard is it for y ou to pay for the very basics like food, housing, medical care, and heating Not hard at all [facility] Do you feel stress - tense, restless, nervous, or anxious, or unable to sleep at night because your mind is troubled all the time - these days [OSQ] Only a little [facility] Start: 06-17-2022 Alcohol Comment rarely [facility] Start: 1945 Sex Assigned At Not on file [facility] Has the electric, ga s, oil, or water company threatened to shut off services in your home in past 12Mo No [facility] Goals Date Patient Goal Desired Activity /State Clinical Notes 12-04-2012 to 09-30-2023 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, [employer] - 09/30/2023 4:00 PM EDTYoni Muller, DO - 09/15/2023 4:00 PM EST Note Date & Type Note Facility 09-30-2023 History of Present [place] [address] Patient: Theresa Luu Date of : 1945 [...] next 48 hrs so she went to [facility] ER on 09/23/23. ER placed a supportive [...] list. Past Medical History: Diagnosis Date Cancer ([facility]) Hyperlipidemia Hypertension Obesity Past Surgical [...] to see ortho. IRMA MARTINES APRN-CNP 10/04/23 1235 documented in this encounter [facility] 09-15-2023 History of Present illness Narrative [...] hypertension with chronic kidney disease, stage III ([facility]) - Basic Metabolic Panel; Future - CBC; Future - Magnesium; Future - Parathyroid Hormone, intact; Future - Phosphorus; Future - Vitamin D 25 hydroxy; Future - Uric acid; Future Her blood pressure is essentially at goal. Her stage 3 chronic kidney disease was discussed. She is using Advil phkw-rbd-vawexrx and I recommended she use Tylenol instead to help protect her kidneys. She was given a written note with these instructions. Check chronic kidney disease labs. Hyperlipidemia, unspecified hyperlipidemia type - Lipid panel; Future Check lipids. Malignant melanoma of left lower leg ([facility]) Follow up with specialists as directed. Labs [...] and high cholesterol. documented in this encounter [employer] 02-13-2023 Progress note Note Date/Time January 27, 2023 3:58pm [facility] [address] [place] [address] Progress Note Signed Patient: Theresa Luu MR#: [id number] : 1945 Acct:[id number] Age/Sex: 77 / F Adm Date: 3 Loc: XT Room: [facility] Attending Dr: Sly Benson II DO Copies to: ~ Date of Service: 01/27/2023 Subjective History of Present Illness HPI: Madison is seen during immunotherapy today and we continue our discussion of goals of care/advance care planning. 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 [facility] Other 06-20-2023 Progress note Author Senia Damiankyreetiburcio [facility] December 30, 2022 11:06am Note Date/Time December 30, 2022 8:35 am [facility] [place] [address] Hem/Onc Follow Up Note - OP Signed Patient: Theresa Luu MR#: [id number] : 1945 Acct:[id number] Age/Sex: 77 / F Type: REG RCR [...] leg melanoma removed by Dr. Trammell at [facility] in November 162020 with [...] and has CT scans scheduled for at [facility]. She is doing well, no [...] for coordination of care (as documented) and ygfn-lh-lqcr counseling of patient and/or family. [facility] - Medical History Medical History: Medical [...] <Electronically signed by ANTOINETTE Montez> 12/30/22 1106 [facility] Work Phone: 1(386) 765-259104-24-2023 Progress note Author Sly Benson [facility] November 03, 2022 10:27am Note Date/Time November 03, 2022 10: 22am [facility] [place] [address] Hem/Onc Follow Up Note - OP Signed Patient: Theresa Luu MR#: [id number] : 1945 Acct:[id number] Age/Sex: 77 / F Type: REG RCR [...] Up Instructions: cont monthly nivolumab. f/u with [employer] in 2 months. cbc, cmp, tsh monthly. [...] leg melanoma removed by Dr. Trammell at [facility] in November 162020 with [...] and has CT scans scheduled for at [facility]. She is doing well, no [...] for coordination of care (as documented) and rkcl-gv-fppl counseling of patient and/or family. [facility] - Medical History Medical History: Medical [...] % (Auto) 59.6, Lymph % (Auto) 26.5, Duval % (Auto) 11.2, Eos % (Auto) 1.8, Baso % (Auto) 0.9, Nucleat RBC Rel Count 0.0, Neut # (Auto) 4.0, Lymph # (Auto) 1.8, Duval # (Auto) 0.8, Eos # (Auto) 0.1, [...] by Sly Benson II, DO> 11/03/22 1027 [facility] Work Phone: 1(765) 381-943003-27-2023 Progress note Author Zenobia Parker [facility] October 06, 2022 11:42am Note Date/Time October 06, 2022 11: 28am [facility] [place] [address] Hem/Onc Follow Up Note - OP Signed Patient: Theresa Luu MR#: [id number] : 1945 Acct:[id number] Age/Sex: 77 / F Type: REG RCR [...] leg melanoma removed by Dr. Trammell at [facility] in November 162020 with [...] and has CT scans scheduled for at [facility]. She is doing well, no [...] 10 point review of systems is negative. [facility] - Medical History Medical History: Medical [...] for coordination of care (as documented) and wtbb-re-gkkn counseling of patient and/or family. Dictated By: Zenobia Parker APRN DD/ 1127 Signed By: <Electronically signed by ANTOINETTE Parker> 10/06/22 1142 [facility] Work Phone: 1(264) 732-651503-20-2023 Progress note Author Bebeto Pandya [facility] September 29, 2022 1:11pm Note Date/Time September 29, 2022 9:4 5am [facility] at [address] [address] Rad Onc Follow Up Note - OP Signed Patient: Theresa Luu MR#: [id number] : 1945 Acct:[id number] Age/Sex: 76 / F Type: REG RCR [...] a left lower leg melanoma removed at [facility] in November 162020 with [...] get her first maintenance dose of the Roff on August 11, [address]. [address] [...] signed by Bebeto Pandya MD> 09/29/22 1311 [facility] Work Phone: 1(903) 476-207102-27-2023 Progress note Author Sly Benson [facility] September 08, 2022 10:18am Note Date/Time September 08, 2022 10:08am [facility] [place] [address] Hem/Onc Follow Up Note - OP Signed Patient: Theresa Luu MR#: [id number] : 1945 Acct:[id number] Age/Sex: 76 / F Type: REG RCR [...] leg melanoma removed by Dr. Trammell at [facility] in November 162020 with [...] and has CT scans scheduled for at [facility]. She is doing well, no [...] for coordination of care (as documented) and shlb-gu-gtwy counseling of patient and/or family. [facility] - Medical History Medical History: Medical [...] by Sly Benson II, DO> 09/08/22 1018 [facility] Work Phone: 1(282) 380-174101-31-2023 Consult note Author Bebeto Pandya [facility] August 12, 2022 1:39pm Note Date/Time August 12, 2022 8 :51am [facility] [place] [address] Rad Onc Consult Note - OP Signed Patient: Theresa Luu MR#: [id number] : 1945 Acct:[id number] Age/Sex: 76 / F Type: REG RCR Copies to: DO Alex Acuña MD, II, DO~ Assessment & Plan (1) Inguinal adenopathy Plan: CT simulation-plan for palliative radiation to the left inguinal [id number] Luis in 5 fractions delivered every other [...] answered. She was consented to receive care [facility] Date of Service: 08/12/22 HPI: 76-year-old female with 3 oncologic diagnoses: 1. basal cell carcinoma on her upper back in September 2020 2. malignant tumor of the breast in September 1996 on the left side > mastectomy with no chemotherapy or radiation 3. Stage IV malignant melanoma Oncologic history She initially had a left lower leg melanoma removed at [facility] in November 162020 with [...] get her first maintenance dose of the Roff on August 11, 2022. Her repeat CT [...] ibuprofen. She denies any other pelvic complaints. [facility] - Medical History Medical History: Medical [...] <Electronically signed by Bebeto Pandya MD> 08/12/22 5235 [facility] Work Phone: 1(313) 516-565901-30-2023 Progress note Author Sly Benson [facility] August 11, 2022 11:03am Note Date/Time August 11, 2022 1 0:48am [facility] [place] [id number] Hem/Onc Follow Up Note - OP Signed Patient: Theresa Luu MR#: [id number] : 1945 Acct:[id number] Age/Sex: 76 / F Type: REG RCR [...] leg melanoma removed by Dr. Trammell at [facility] in November 162020 with [...] and has CT scans scheduled for at [facility]. She is doing well, no [...] for coordination of care (as documented) and eouj-oq-tdiz counseling of patient and/or family. [facility] - Medical History Medical History: Medical [...] % (Auto) 58.6, Lymph % (Auto) 29.6, Duval % (Auto) 9.0, Eos % (Auto) 2.1, Baso % (Auto) 0.7, Nucleat RBC Rel Count 0.1, Neut # (Auto) 4.4, Lymph # (Auto) 2.2, Duval # (Auto) 0.7, Eos # (Auto) 0.2, [...] Benson II, DO> 08/11/22 1103 [facility] Work Phone: 1(155) 121-272112-12-2022 Progress note Author Sly Benson [facility] June 23, 2022 11:22am Note Date/Time June 23, 2022 11:18am [facility] [place] [address] Hem/Onc Follow Up Note - OP Signed Patient: Theresa Luu MR#: [id number] : 1945 Acct:[id number] Age/Sex: 76 / F Type: REG RCR [...] leg melanoma removed by Dr. Trammell at [facility] in November 162020 with [...] and has CT scans scheduled for at [facility]. She is doing well, no [...] for coordination of care (as documented) and dyig-or-thif counseling of patient and/or family. [facility] - Medical History Medical History: Medical [...] Benson II, DO> 06/23/22 1122 [facility] Work Phone: 1(519) 341-942812-12-2022 Progress note Author Sly Benson [facility] June 23, 2022 11:22am Note Date/Time June 23, 2022 11:18am [facility] at [address] [address] Hem/Onc Follow Up Note - OP Signed Patient: José MiguelTheresa Larson MR#: [id number] : 1945 Acct:[id number] Age/Sex: 76 / F Type: REG RCR Copies to: Yoni MullerDO Alex MD~ Date of Service: 06/23/2022 Time [...] leg melanoma removed by Dr. Trammell at [facility] in November 162020 with [...] and has CT scans scheduled for at [facility]. She is doing well, no [...] for coordination of care (as documented) and vnru-lm-dhqz counseling of patient and/or family. [facility] - Medical History Medical History: Medical [...] Benson II, DO> 06/23/22 1122 [facility] Work Phone: 1(893) 909-953811-21-2022 Progress note Author Zenobia Parker [facility] June 02, 2022 11:05am Note Date/Time June 02, 2022 11:01am [facility] [place] [address] Hem/Onc Follow Up Note - OP Signed Patient: [place] Luu MR#: [id number] : 1945 Acct:[id number] Age/Sex: 76 / F Type: REG RCR [...] leg melanoma removed by Dr. Trammell at [facility] in November 162020 with [...] and has CT scans scheduled for at [facility]. She is doing well, no [...] 10 point review of systems is negative. [facility] - Medical History Medical History: Medical [...] for coordination of care (as documented) and ubzv-ai-fonr counseling of patient and/or family. Dictated By: Zenobia Parker APRN DD/ 1058 Signed By: <Electronically signed by ANTOINETTE Parker> 06/02/22 1106 [facility] Work Phone: 1(276) 584-499311-21-2022 Progress note [facility] June 02, 2022 11:05am Note Date/Time June 02, 2022 11:01am [facility] [place] [address] Hem/Onc Follow Up Note - OP Signed Patient: [place] Luu MR#: [id number] : 1945 Acct:[id number] Age/Sex: 76 / F Type: REG RCR [...] leg melanoma removed by Dr. Trammell at [facility] in November 162020 with [...] and has CT scans scheduled for at [facility]. She is doing well, no [...] for coordination of care (as documented) and fcvu-cm-gqqr counseling of patient and/or family. Dictated By: Zenobia Parker APRN DD/ 1058 Signed By: <Electronically signed by ANTOINETTE Parker> 06/02/22 110[address] [facility] Work Phone: 1(251) 749-447510-21-2022 Progress note Author Sly Benson [facility] May 02, 2022 4:01pm Note Date/Time May 02, 2022 3 :52pm [facility] [place] [address] Hem/Onc Follow Up Note - OP Signed Patient: [place] Luu MR#: [id number] : 1945 Acct:[id number] Age/Sex: 76 / F Type: REG RCR [...] leg melanoma removed by Dr. Trammell at [facility] in November 162020 with [...] and has CT scans scheduled for at [facility]. She is doing well, no [...] for coordination of care (as documented) and lyhm-bx-fpmw counseling of patient and/or family. [facility] - Medical History Medical History: Medical [...] by Sly Benson II, DO> 05/02/22 16[address] [facility] Work Phone: 1([phone]) 775-892810-21-2022 Progress note Author Sly Benson [facility] May 02, 2022 4:01pm Note Date/Time May 02, 2022 3 :52pm [facility] [place] [address] Hem/Onc Follow Up Note - OP Signed Patient: [place] Luu MR#: [id number] : 1945 Acct:[id number] Age/Sex: 76 / F Type: REG RCR [...] leg melanoma removed by Dr. Trammell at [facility] in November 162020 with [...] and has CT scans scheduled for at [facility]. She is doing well, no [...] for coordination of care (as documented) and himg-uq-vaaz counseling of patient and/or family. [facility] - Medical History Medical History: Medical [...] by Sly Benson II, DO> 05/02/22 16[address] [facility] Work Phone: 1(380) 919-423310-15-2022 Progress note Author Sly Benson [facility] April 26, 2022 11:51am Note Date/Time April 21, 2022 9 :31am [facility] [place] [address] Hem/Onc Follow Up Note - OP Signed Patient: [place] Luu MR#: [id number] : 1945 Acct:[id number] Age/Sex: 76 / F Type: REG RCR [...] 4 doses per trial Cornelius et al BANNER 2019 Repeat imaging in September 2021 showed [...] leg melanoma removed by Dr. Trammell at [facility] in November 162020 with [...] and has CT scans scheduled for at [facility]. She is doing well, no [...] for coordination of care (as documented) and yzek-jn-tgom counseling of patient and/or family. [facility] - Medical History Medical History: Medical [...] signed by Sly Benson II, DO> 04/26/[address] [place] [address] Work Phone: 1(672) 926-894910-15-2022 Progress note Author Sly Benson [facility] April 26, 2022 11:51am Note Date/Time April 21, 2022 9 :31am [facility] [place] [address] Hem/Onc Follow Up Note - OP Signed Patient: [place] Luu MR#: [id number] : 1945 Acct:[id number] Age/Sex: 76 / F Type: REG RCR [...] ipilimumab after 4 doses per trial Cyrus BANNER 2019 Repeat imaging in September 2021 showed [...] leg melanoma removed by Dr. Trammell at [facility] in November 162020 with [...] and has CT scans scheduled for at [facility]. She is doing well, no [...] for coordination of care (as documented) and sble-na-vlmx counseling of patient and/or family. [facility] - Medical History Medical History: Medical [...] by Sly Benson II, DO> 04/26/22 115[address] [facility] Work Phone: 1([phone]) 428-805604-25-2022 Progress note Author Sly Benson [facility] November 04, 2021 7:49pm Note Date/Time October 25, 2021 9:5 8am [facility] [place] [address] Hem/Onc Follow Up Note - OP Signed Patient: [place] Luu MR#: [id number] : 1945 Acct:[id number] Age/Sex: 76 / F Type: REG RCR [...] leg melanoma removed by Dr. Trammell at [facility] in November 162020 with [...] and has CT scans scheduled for at [facility]. She is doing well, no [...] for coordination of care (as documented) and mhxa-av-geyd counseling of patient and/or family. [facility] - Medical History Medical History: Medical [...] signed by Sly Benson II, DO> 11/04/211948 [facility] Work Phone: 1(817) 687-566504-25-2022 Progress note Author Sly Benson [facility] November 04, 2021 7:49pm Note Date/Time October 25, 2021 9:5 8am [facility] [place] [address] Hem/Onc Follow Up Note - OP Signed Patient: [place] Luu MR#: [id number] : 1945 Acct:[id number] Age/Sex: 76 / F Type: REG RCR [...] for a 3 week follow up for leonard to review CTscans done 10/10/2021. There is [...] leg melanoma removed by Dr. Trammell at [facility] in November 162020 with [...] and has CT scans scheduled for at [facility]. She is doing well, no [...] for coordination of care (as documented) and vuib-ch-kbnd counseling of patient and/or family. [facility] - Medical History Medical History: Medical [...] signed by Sly Benson II, DO> 11/04/211948 [facility] Work Phone: 1(124) 315-978503-28-2022 Progress note Author Sly Benson [facility] October 07, 2021 8:58am Note Date/Time October 07, 2021 8:2 8am [facility] at [address] [address] Hem/Onc Follow Up Note - OP Signed Patient: [place] Luu MR#: [id number] : 1945 Acct:[id number] Age/Sex: 76 / F Type: REG RCR [...] leg melanoma removed by Dr. Trammell at [facility] in November 162020 with [...] and has CT scans scheduled for at [facility]. She is doing well, no [...] for coordination of care (as documented) and reqz-md-eenk counseling of patient and/or family. [facility] - Medical History Medical History: Medical [...] by Sly Benson II, DO> 10/07/21 0858 [facility] Work Phone: 1([phone]) 885-397703-28-2022 Progress note Author Sly Benson [facility] October 07, 2021 8:58am Note Date/Time October 07, 2021 8:2 8am [facility] [place] [address] Hem/Onc Follow Up Note - OP Signed Patient: [place] Luu MR#: [id number] : 1945 Acct:[id number] Age/Sex: 76 / F Type: REG RCR [...] leg melanoma removed by Dr. Trammell at [facility] in November 162020 with [...] and has CT scans scheduled for at [facility]. She is doing well, no [...] for coordination of care (as documented) and jduu-cd-axuo counseling of patient and/or family. [facility] - Medical History Medical History: Medical [...] by Sly Benson II, DO> 10/07/21 0858 [facility] Work Phone: [phone]) 443-246605-07-2021 NotePROCEDURE DETAILS Preoperative Diagnosis: Melanoma of lower limb, C43.70 Postoperative Diagnosis: left lower leg me\lanoma Surgeon: Alex Trammell Resident/Fellow/Other Key Worker: Bambi Ray Muhammad Procedure: 1. WIDE LOCAL [...] Aguilar MD Furlong, Dennis G, MD - [phone] [] Signatures/Attestation: Note Completion: Attending AttestationI was present for the entire procedure Electronic Signatures: Alex Trammell) (Signed 16-Nov-2020 14:13) Authored: Post-Operative Note, Chart Review, Note Completion Last Updated: 16-Nov-2020 14:13 by Alex Trammell)[facility] [place] NoteHistory & Physical Reviewed: I have [...] the note. I personally evaluated the patient [id number] Attending Provider Inpatient Certification StatementObservation patient/other outpatient visits Electronic Signatures: Alex Trammell) (Signed 16-Nov-2020 13:12) Authored: Note Completion Co-Signer: History & Physical Reviewed, ERAS, Consent, Note Completion Ct Tinsley (Resident)) (Signed 16-Nov-2020 10:36) Authored: History & Physical Reviewed, ERAS, Consent, Note Completion Last Updated: 16-Nov-2020 13:12 by Alex Trammell)[facility] [place] NoteAccession #: [id number] Pathologist: SURAJ MELGAR MD Date of Procedure: 10/16/2020 Date Received: 10/16/2020 Submitting Physician: ALEX TRMAMELL MD Location: [facility] Copy To/Referring/Attending: QUENTIN FITZPATRICK DO FINAL DIAGNOSIS 4 SLIDES, [facility], #[id number] [A] (BX: 09/28/2020) SKIN, LEFT DISTAL PRETIBIAL [...] REPORT A. 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 Slides received on specimen A only. Slide/Block Description 4 SLIDES, [id number] A. Keep Slides: N Slides Returned: N [facility]:Performed By: #### D #### [id number] History general Narrative - Reported* Type Description Date Medical History breast cancer (1996) Medical History HTN Medical History hyperlipidemia Medical History basal cell carcinoma upper back (September 2020) Medical History metastatic malignant melanoma Mamaherb Other 04-20-2014 History of Present illness Narrative* [...] She reports that shehas not seen her laborer landscape since prior to the cancer treatment. As [...] the knee to the foot. 1+ edema. [facility] Work Phone: 1(247) 249-480303-14-2014 History of Present illness Narrative* Ms. Luu [...] She reports that shehas not seen her laborer landscape since prior to the cancer treatment. As [...] the knee to the foot. 1+ edema. [facility] [address] Work Phone: 1(484) 633-223907-15-2013 History of Present illness Narrative* Ms. Luu [...] the knee to the foot. 1+ edema. [facility] Work Phone: 1([phone]) 511-679706-16-2013 History of Present illness Narrative* Ms. Luu [...] the knee to the foot. 2+ edema. [facility] Work Phone: 1(460) 903-282305-25-2013 History of Present illness Narrative* Ms. Luu [...] the knee to the foot. 2+ edema. [facility] Work Phone: evaluation noteN/ADept. of Dermatology Evaluation note* Diagnosis Onset Date Resolution Status Melanoma acute [facility] Work Phone: Evaluation noteNo assessment information available [facility] Work Phone: evaluation note* Diagnosis Onset Date Resolution Status Melanoma acute Inguinal adenopathy acute [facility] Work Phone: Evaluation note* Diagnosis Onset Date Resolution Status Inguinal adenopathy acute Melanoma acute [facility] Work Phone: Evaluation note* Diagnosis Onset Date Resolution Status Encounter for antineoplastic immunotherapy acute Inguinal adenopathy acute Melanoma acute [facility] Work Phone: Evaluation note* Diagnosis Onset Date Resolution Status Melanoma acute Encounter for antineoplastic immunotherapy acute Inguinal adenopathy acute Melanoma acute [facility] Work Phone: Evaluation note* Diagnosis Essential [...] Frame: 1 Day, Location: Determined By Patient [facility] Work Phone: Hospital Discharge instructionsAmbulatory Orders* Oncology Histology Time Frame: 1 Day, Location: Determined By Patient [facility] Work Phone: InstructionsNot on filedocumented in this encounter [facility]Not on filedocumented in this encounter [facility] SystemInstructionsNot on filedocumented in this encounter [facility]* Attachments The following attachments cannot be sent through Care Everywhere. * Common wrist injuries (Chinese) documented in this encounterProW. [facility]. [facility] SystemProgress note Author Sly Benson [facility] May 02, 2022 4:01pm Note Date/Time May 02, 2022 3 :52pm [facility] [place] [address] Hem/Onc Follow Up Note - OP Signed Patient: [place] Luu MR#: [id number] : 1945 Acct:[id number] Age/Sex: 76 / F Type: REG RCR [...] leg melanoma removed by Dr. Trammell at [facility] in November 162020 with [...] and has CT scans scheduled for at [facility]. She is doing well, no [...] for coordination of care (as documented) and iuxk-ks-ypsi counseling of patient and/or family. [facility] - Medical History Medical History: Medical [...] by Sly Benson II, DO> 05/02/22 1601 [facility] Work Phone: Progress note Author Zenobia [facility]coll[facility] centerje[facility] June 02, 2022 11:05am Note Date/Time June 02, 2022 11:01am [facility] [place] [address] Hem/Onc Follow Up Note - OP Signed Patient: [place] Luu MR#: [id number] : 1945 Acct:[id number] Age/Sex: 76 / F Type: REG RCR [...] leg melanoma removed by Dr. Trammell at [facility] in November 162020 with [...] and has CT scans scheduled for at [facility]. She is doing well, no [...] 10 point review of systems is negative. [facility] - Medical History Medical History: Medical [...] for coordination of care (as documented) and tbom-hm-jcmz counseling of patient and/or family. Dictated By: Zenobia Parker APRN DD/ 1058 Signed By: <Electronically signed by ANTOINETTE Parker> 06/02/22 1105 [facility] Work Phone: Progress note Author Sly Benson [facility] June 23, 2022 11:22am Note Date/Time June 23, 2022 11:18am [facility] [place] [address] Hem/Onc Follow Up Note - OP Signed Patient: [place] Luu MR#: [id number] : 1945 Acct:[id number] Age/Sex: 76 / F Type: REG RCR [...] leg melanoma removed by Dr. Trammell at [facility] in November 162020 with [...] and has CT scans scheduled for at [facility]. She is doing well, no major medical issues this year once the wound vac was removed from her leg. 10/28/[address] imaging from October 01, 2021 shows no obvious evidence of metastatic disease. Small nonspecific abdominal pelvic and inguinal nodes, 3 cm right ovarian cyst. Punch biopsy performed by Dr. Trmamell from September 17, 2021 of the surgical [...] for coordination of care (as documented) and nqwu-ei-jdwu counseling of patient and/or family. [facility] - Medical History Medical History: Medical [...] by Sly Benson II, DO> 06/23/22 1122 [facility] Work Phone: Progress note Author Sly Benson [facility] August 11, 2022 11:03am Note Date/Time August 11, 2022 1 0:48am [facility] [place] [id number] Hem/Onc Follow Up Note - OP Signed Patient: [place] Luu MR#: [id number] : 1945 Acct:[id number] Age/Sex: 76 / F Type: REG RCR [...] leg melanoma removed by Dr. Trammell at [facility] in November 162020 with [...] and has CT scans scheduled for at [facility]. She is doing well, no [...] for coordination of care (as documented) and rgye-wl-sdlk counseling of patient and/or family. [facility] - Medical History Medical History: Medical [...] % (Auto) 58.6, Lymph % (Auto) 29.6, Duval % (Auto) 9.0, Eos % (Auto) 2.1, Baso % (Auto) 0.7, Nucleat RBC Rel Count 0.1, Neut # (Auto) 4.4, Lymph # (Auto) 2.2, Duval # (Auto) 0.7, Eos # (Auto) 0.2, Baso # (Auto) 0.1 - Home Medications and Allergies Allergies/Adverse Reactions: Allergies Penicillins Allergy (Verified 06/23/22 10:44) Unknown Reaction Home Medications: Home Medications hydrochlorothiazide 25 mg tablet 25 mg PO DAILY 10/04/21 [History Confirmed 08/11/22] rosuvastatin 10 mg tablet 10 mg PO DAILY 10/04/21 [History Confirmed 08/11/22] Dictated By: Sly Benson II DO DD/ 1046 Signed By: <Electronically signed by Sly Benson II, DO> 08/11/22 1109 [facility] Work Phone: Progress note Author Sly Benson [facility] September 08, 2022 10:18am Note Date/Time September 08, 2022 10:08am [facility] [place] [address] Hem/Onc Follow Up Note - OP Signed Patient: [place] Luu MR#: [id number] : 1945 Acct:[id number] Age/Sex: 76 / F Type: REG RCR [...] leg melanoma removed by Dr. Trammell at [facility] in November 162020 with [...] and has CT scans scheduled for at [facility]. She is doing well, no [...] for coordination of care (as documented) and cnts-hg-wrzi counseling of patient and/or family. [facility] - Medical History Medical History: Medical [...] Benson II, DO> 09/08/22 1018 [facility] Work Phone: Progress note Author Senia Montez [facility] December 30, 2022 11:06am Note Date/Time December 30, 2022 8:35 am [facility] [place] [address] Hem/Onc Follow Up Note - OP Signed Patient: [place] Luu MR#: [id number] : 1945 Acct:[id number] Age/Sex: 77 / F Type: REG RCR [...] without new concerns. will repeat imaging in feb/mar and f/u after Completed palliative XRT to [...] leg melanoma removed by Dr. Trammell at [facility] in November 162020 with [...] and has CT scans scheduled for at [facility]. She is doing well, no [...] for coordination of care (as documented) and pbst-za-dzbw counseling of patient and/or family. [facility] - Medical History Medical History: Medical [...] <Electronically signed by ANTOINETTE Montez> 12/30/22 1106 [facility] Work Phone: Progress note Author Sly Benson [facility] March 06, 2023 2:40pm Note Date/Time March 06, 2023 2: 37pm [facility] at [address] [address] Hem/Onc Follow Up Note - OP Signed Patient: [place] Luu MR#: [id number] : 1945 Acct:[id number] Age/Sex: 77 / F Type: REG RCR [...] leg melanoma removed by Dr. Trammell at [facility] in November 162020 with [...] and has CT scans scheduled for at [facility]. She is doing well, no [...] for coordination of care (as documented) and bhuz-au-lgrw counseling of patient and/or family. [facility] - Medical History Medical History: Medical [...] % (Auto) 66.0, Lymph % (Auto) 23.1, Duval % (Auto) 8.4, Eos % (Auto) 1.7, Baso % (Auto) 0.8, Nucleat RBC Rel Count 0.0, Neut # (Auto) 4.1, Lymph # (Auto) 1.4, Duval # (Auto) 0.5, Eos # (Auto) 0.1, [...] 10/04/21 [History Confirmed 03/06/23] Dictated By: Sly Bensno II, DO DD/ 1434 Signed By: <Electronically signed by Sly Benson II DO> 03/06/23 1440 [facility] Work Phone: Progress note Author Sly Benson [facility] August 07, 2023 11:49am Note Date/Time August 07, 2023 1 1:21am [facility] [place] [address] Cancer Center Note Signed Patient: [place] Luu MR#: [id number] : 1945 Acct:[id number] Age/Sex: 77 / F Type: REG AMB Copies to: Yoni Muller,DO~ Assessment & Plan A/P (1) Melanoma: Plan: [...] Indication No Indication Cycle Number Last Admin of Cycle Day Next Admin No Active [...] leg melanoma removed by Dr. Trammell at [facility] in November 162020 with [...] and has CT scans scheduled for at [facility]. She is doing well, no [...] up with labs and imaging for review. [facility] Medical History Medical History Malignant tumor [...] <Electronically signed by Sly Benson II DO> 08/07/23 1149 [facility] Work Phone: Progress note Author Sly Benson [facility] January 22, 2024 9:45am Note Date/Time January 22, 2024 9:17 am [facility] [place] [address] Cancer Center Note Signed Patient: [place] Luu MR#: [id number] : 1945 Acct:[id number] Age/Sex: 78 / F Type: REG AMB [...] leg melanoma removed by Dr. Trammell at [facility] in November 162020 with [...] and has CT scans scheduled for at [facility]. She is doing well, no [...] imaging for review, prior to treatment today. [facility] Medical History Medical History Malignant tumor [...] by Sly Benson II, DO> 01/22/24 0945 [facility] Work Phone: Reason for referral (narrative)* [...] section and content) DATE CREATED AUTHOR 11/07/2020 [facility] DATE CREATED AUTHOR AUTHOR'S ORGANIZ ATION 12/04/2020 [facility] DATE CREATED AUTHOR AUTHOR'S ORGANIZ ATION 12/10/2020 [facility] DATE CREATED AUTHOR AUTHOR'S ORGANIZ ATION 05/12/2021 [facility] DATE CREATED AUTHOR AUTHOR'S ORGANIZ ATION 09/23/2021 [facility] DATE CREATED AUTHOR AUTHOR'S ORGANIZ ATION 09/28/2021 [facility] DATE CREATED AUTHOR AUTHOR'S ORGANIZ ATION 10/06/2022 [facility] DATE CREATED AUTHOR AUTHOR'S ORGANIZ ATION 03/19/2024 [facility] Care Teams (unrecognized sec tion [...] DO Primary Care Provider Active Sly Benson II DO Attending Provider Active Linoleum Installer Relationship Specialty Start Date End Date Yoni Muller DO [address] [facility], [place] [address] PCP - General Family Medicine 04/21/22 Linole[employer] Installer Relationship Specialty Start Date End Date Yoni Muller DO [address], [place] [address] PCP - General Family Medicine 04/21/22 [employer] Installer Relationship Specialty Start Date End Date Yoni Muller DO [address], [place] [address] PCP - General Family Medicine 04/21/22 Team [...] BE BASED ON THE PRIMARY CLINICAL RECORDS. [facility] provides no warranty or guarantee of the accuracy or completeness of information in this document.
[2024-04-13 07:46] LABS: Basophils Percent Auto 0.6 % (0.2-2.0); Eosinophils Absolute Auto 0.1 10^3/uL (0.0-0.7); Eosinophils Percent Auto 2.7 % (0.9-7.0); Hematocrit 41.8 % (36.0-48.0); Hemoglobin 13.8 g/dL (12.0-16.0); Immature Granulocytes Abs Auto 0.01 10^3/uL (0.00-0.03); Immature Granulocytes Pct Auto 0.2 % (0.0-0.5); Lymphocytes Absolute Auto 1.5 10^3/uL (1.2-3.8); Lymphocytes Percent Auto 31.4 % (20.5-60.0); Mean Corpuscular Hemoglobin 30.4 pg (26.7-34.0); Mean Corpuscular Volume 92.1 fL (81.0-99.0); Monocytes Absolute Auto 0.5 10^3/uL (0.3-0.8); Monocytes Percent Auto 9.5 % (1.7-12.0); Neutrophils Absolute Auto 2.6 10^3/uL (1.4-6.5); Neutrophils Percent Auto 55.6 % (43.0-75.0); Platelet Count 186 10^3/uL (150-450); Red Blood Count 4.54 10^6/uL (4.20-5.40); Red Cell Distribution Width 12.7 % (11.0-15.0); White Blood Count 4.7 10^3/uL (4.0-11.0)
[2024-04-13 08:46] LABS: Free T4 1.12 ng/dL (0.76-1.46)
[2024-04-13 09:29] LABS: Alanine Aminotransferase 37 U/L (14-59); Albumin Level 3.2 g/dL (3.4-5.0); Alkaline Phosphatase 143 U/L (46-116); Anion Gap 10.7; Aspartate Amino Transferase 30 U/L (15-37); BUN Creatinine Ratio 17.7; Bilirubin Total 0.5 mg/dL (0.2-1.0); Calcium 9.4 mg/dL (8.5-10.1); Carbon Dioxide 29.9 mmol/L (21.0-32.0); Chloride 102 mmol/L (98-107); Estimated GFR (African America >60 (>=60 mL/min/1.73m^2); Estimated GFR (Non-African Ame 56 (>=60 mL/min/1.73m^2); Globulin 3.3 g/dL; Glucose 126 mg/dL (74-106); Lactate Dehydrogenase 168 U/L (81-234); Potassium 3.6 mmol/L (3.5-5.1); Sodium 139 mmol/L (136-145); Thyroid Stimulating Hormone 2.183 uIU/mL (0.358-3.740); Total Protein 6.5 g/dL (6.4-8.2)
== END 2024-04-13 07:17 | disposition home or self-care (01) ==
LOC: LAB 07:18
PROVIDERS: PCP Family Medicine; Visit Provider Internal Medicine
DX: C43.9 Malignant melanoma of skin, unspecified (principal)
CPT/HCPCS: 36415; 80053; 82024; 83615; 84439; 84443; 85025

== ENCOUNTER 2024-05-11 06:51 | Outpatient (OUT) | payer MEDICARE, SELFPAY ==
--- OUTSIDE RECORDS SUMMARY | 2024-05-11 06:57 | XMS_ITS | CCD ---
Author Organization [facility] Team Providers Care Ditch Inspector Name Role Phone Quentin Fitzpatrick Unavailable Unavailable Yohana Yoni Larson Unavailable Unavailable Unavailable Quentin Fitzpatrick Unavailable Unavailable DO Sly Benson II Attending Provider Yohana, DO [place] Primary Care Provider [phone] MD Alex Trammell Referring Provider DO Sly Benson II Attending Provider Yohana, Yoni Primary Care Provider [phone] MD Alex Trammell Referring Provider MD Alex Trammell Attending Provider Yohana, Yoni Primary Care Provider DO Sly Benson II Attending Provider [phone] MD Alex Trammell Referring Provider Yohana, Yoni Primary Care Provider MD Alex Trammell Attending Provider DO Sly Benson II Attending Provider MD Alex Trammell Referring Provider DO Sly Benson II Attending Provider MD Alex Trammell Referring Provider Yohana, Yoni Primary Care Provider [phone] MD Alex Trammell Attending Provider [phone] Kelley II, DO Sly J Attending Provider MD Alex Trammell Referring Provider MD Alex Trammell Referring Provider [phone] MD Alex Tarmmell Referring Provider Kelley II, DO Sly Jeffrey Attending Provider Furlong, DO Yoni Primary Care Provider [phone] MD Alex Trammell Referring Provider Kelley II, DO Sly Jeffrey Attending Provider Furlong, DO oYni Primary Care Provider [phone] MD Alex Trammell Referring Provider Adamhilario II, DO Sly J Attending Provider [phone] Furlong, DO [place] Primary Care Provider MD Alex Trammell Referring Provider [phone] JASONICZ, SLY J Admitting Unavailable FURLONG, DR [...] Adamowicz II, DO Sly J Attending Provider [phone] Furlong, DO Yoni Primary Care Provider MD Alex Trammell Referring Provider Kelley II, DO Sly Jeffrey Attending Provider Furlong, DO Yoni Primary Care Provider [phone] MD Alex Trammell Referring Provider Regino Kimber Unavailable Kelley II, DO Sly Jeffrey Attending Provider [phone] Furlong, DO Yoni Primary Care Provider MD Alex Trammell Referring Provider Kelley II, DO Sly Jeffrey Attending Provider Furlong, DO Yoni Primary Care Provider MD Alex Trammell Referring Provider [phone] Kelley II, DO Sly Jeffrey Attending Provider [phone] Furloedmar, DO [place] Primary Care Provider MD Alex Trammell Referring Provider Furlong Yoni MITCHELL Primary Care Provider Kelley II, DO Sly Jeffrey Attending Provider Furlong, DO Yoni Primary Care Provider MD Alex Trammell Referring Provider Yohana, Yoni Primary Care Unavailable Davidowicz II, Sly J Attending Unavaila ble Adamowicz II, Sly Jeffrey Admitting Unavaila ble Yoni Muller Primary Care Unavailable Alex Trammell Referring Unavailab Sly De Leon II Attending Unavaila Sly Blount II Admitting Unavaila ble Allergies Allergy Classification Reported Allergen(s) Allergy Type Date of Onset Reaction(s) Facility (3 sources) No Alert Propensity to adverse reactions to drug 1 [facility] (2 sources) Penicillin Drug Allergy Unknown [facility] Repository (4 sources) Penicillins Propensity to adverse reactions to drug 2 [facility] (1 source) Penicillins Drug allergy (disorder) 4 [...] Hormone PL 21.6 pg/mL Normal 7.2-63.3 [facility] Comment on above: Result Comment: ACTH reference interval for samples collected between 7 and 10 AM. Performed at: [facility] [id number] Warehouse Distribution Specialist: Coleman Lacy PhD, Phone: [phone] PERFORMED BY: [place] [address] PATHOLOGIST AIRLINE STATION AGENT WAYLON SAUNDERS M.D. Performed By: #### R EDRAW LDH, REDRAW K #### [address] Alanine aminotransferase [En zymatic activity/volume] in Serum or PlasmaOrdered By: Sly Benson on 01-20-2024 ALT [Catalytic activity/Vol] 34 U/L Normal 7- [facility] Comment on above: Performed By: #### T 4F, CMP, LDH, TSH3, CBC #### [facility] [address] [place] [address] [place] #### ACTH #### [facility] , Albumin [...] T 4F, CMP, LDH, TSH3, CBC #### [facility] [address] [place] [address] [place] #### ACTH #### [facility] , Aspartate aminotransferase [ Enzymatic activity/volume] in Serum or PlasmaOrdered By: Sly Benson on 01-20-2024 AST [Catalytic activity/Vol] 26 U/L Normal 13-39 [facility] Comment on above: Performed By: #### T 4F, CMP, LDH, TSH3, CBC #### [place] [address] [place] #### ACTH #### [facility] , Automated basophil %Ordered By: Sly Benson on 01-20-2024 Basophils/100 WBC (Bld) 0.3 % Normal . [facility] Comment on above: Performed By: #### T 4F, CMP, LDH, TSH3, CBC #### [facility] [address] [place] [address] [place] #### ACTH #### [facility] , Automated basophil countOrde red By: Sly Benson on 01-20-2024 Basophils (Bld) [#/Vol] 0.0 10*3/uL Normal 0.0-0.2 [facility] Comment on above: Result Comment: PERF ORMED BY: [place] [address] PATHOLOGIST AIRLINE STATION AGENT WAYLON SAUNDERS M.D. Performed By: #### T 4F, CMP, LDH, TSH3, CBC #### [facility] [address] [place] [address] [place] #### ACTH #### [facility] , Automated blood monocyte cou ntOrdered By: Sly Benson on 01-20-2024 Monocytes (Bld) [#/Vol] 0.8 10*3/uL Normal 0.0-0.8 [facility] Comment on above: Performed By: #### T 4F, CMP, LDH, TSH3, CBC #### [facility] [address] [place] [address] [place] #### ACTH #### [facility] , Automated eosinophil %Ordere d By: Sly Benson on 01-20-2024 Eosinophils/100 WBC (Bld) 1.3 % Normal . [facility] Comment on above: Performed By: #### T 4F, CMP, LDH, TSH3, CBC #### [place] [address] [place] #### ACTH #### [facility] , Automated eosinophil countOr dered By: Sly Benson on 01-20-2024 Eosinophils (Bld) [#/Vol] 0.1 10*3/uL Normal 0.0-0.45 [facility] Comment on above: Performed By: #### T 4F, CMP, LDH, TSH3, CBC #### [place] [address] [place] #### ACTH #### [facility] , Automated monocyte %Ordered By: Sly Benson on 01-20-2024 Monocytes/100 WBC (Bld) 8.7 % Normal . [facility] Comment on above: Performed By: #### T 4F, CMP, LDH, TSH3, CBC #### [place] [address] [place] #### ACTH #### [facility] , Automated neutrophil %Ordere d By: Sly Benson on 01-20-2024 Neutrophils/100 WBC (Bld) 71.5 % Normal . [facility] Comment on above: Performed By: #### T 4F, CMP, LDH, TSH3, CBC #### [place] [address] [place] #### ACTH #### [facility] , Bilirubin.total [Mass/volume ] in Serum or PlasmaOrdered By: Sly Benson on 01-20-2024 Bilirubin [Mass/Vol] 0.8 mg/dL Normal 0.3-1.0 [facility] Comment on above: Performed By: #### T 4F, CMP, LDH, TSH3, CBC #### [facility] [address] [place] [address] [place] #### ACTH #### [facility] , CT abdomen pelvis w conon CT abdomen pelvis w con [facility] [place] [address] [place] [address] CT Scan Report Signed Patient: Theresa Luu MR#: [id number] : 1945 Acct:[id number] Age/Sex: 78 / F ADM Date: 01/20/24 Loc: Room: Type: [facility] RCR Attending Dr: Sly Benson II DO Copies to: Sly Benson II, DO Ordering Provider: Sly Benson II, DO Date of Service: 01/20/24 CT/CT chest w con: MELANOMA ([id number]) CT/CT abdomen pelvis w con: MELANOMA CT [...] Monroe Jr., Sita01/20/2024 11:24 AM Dictation Location: [place] [address] Transcribed By: [facility] 01/20/24 1124 Dictated By: Sylvain Monroe Jr, DO 01/20/24 1111 Signed By: 01/20/24 1124 Normal [facility] Calcium [Mass/volume] in Ser um or PlasmaOrdered By: Sly Benson on 01-20-2024 Calcium [Mass/Vol] 9.1 mg/dL Normal 8.6-10.3 [facility] Comment on above: Performed By: #### T 4F, CMP, LDH, TSH3, CBC #### [facility] [address] [place] [address] [place] #### ACTH #### [facility] , Carbon dioxide, total [Moles /volume] in Serum or PlasmaOrdered By: Sly Benson on 01-20-2024 CO2 [Moles/Vol] 29.1 mmol/L Normal 21.0-31.0 [facility] Comment on above: Performed By: #### T 4F, CMP, LDH, TSH3, CBC #### [facility] [address] [place] [address] [place] #### ACTH #### [facility] , Chloride [Moles/volume] in S mellissa or PlasmaOrdered By: Sly Benson on 01-20-2024 Chloride [Moles/Vol] 102 mmol/L Normal 98-107 [facility] Comment on above: Performed By: #### T 4F, CMP, LDH, TSH3, CBC #### [facility] [address] [place] [address] [place] #### ACTH #### [facility] , Complete Blood Count Auto Di ffon 01-20-2024 Mean Corpuscular HGB Conc 33.7 g/dL Normal 32.0-35.0 [facility] Comment on above: Performed By: #### T 4F, CMP, LDH, TSH3, CBC #### [facility] [address] [place] [address] #### ACTH #### [facility] , NRBC% 0.0 /100{WBC} Normal 0-0.5 [facility] Comment on above: Performed By: #### T 4F, CMP, LDH, TSH3, CBC #### [facility] [address] [place] [address] [place] #### ACTH #### [facility] , Comprehensive Metabolic Pane walter 01-20-2024 Albumin [Mass/Vol] 4.0 g/dL Normal 3.5-5.7 [facility] Comment on above: Performed By: #### T 4F, CMP, LDH, TSH3, CBC #### [facility] [address] [place] [address] [place] #### ACTH #### [facility] , Creatinine Clr Calc Pharmacy 58.76 Normal [facility] Comment on above: Performed By: #### T 4F, CMP, LDH, TSH3, CBC #### [facility] [address] [place] [address] [place] #### ACTH #### [facility] , GFR/1.73 sq M.predicted MDRD (S/P/Bld) [Vol rate/Area] mL/min/{1.73_m2} Normal [facility] Comment on above: Performed By: #### T 4F, CMP, LDH, TSH3, CBC #### [place] [address] [place] #### ACTH #### [facility] , Creatinine [Mass/volume] in Serum or PlasmaOrdered By: Sly Benson on 01-20-2024 Creatinine [Mass/Vol] 0.84 mg/dL Normal 0.60-1.[address] [facility] Comment on above: Performed By: #### T 4F, CMP, LDH, TSH3, CBC #### [address] #### ACTH #### [facility] , Erythrocyte distribution wid th [Ratio] by Automated countOrdered By: Sly Benson on 01-20-2024 Erythrocyte distribution width (RBC) [Ratio] 14.1 % Normal 11.9-15.3 [facility] Comment on above: Performed By: #### T 4F, CMP, LDH, TSH3, CBC #### [place] [address] [place] #### ACTH #### [facility] , Erythrocytes [#/volume] in B lood by Automated countOrdered By: Sly Benson on 01-20-2024 RBC (Bld) [#/Vol] 4.77 10*6/uL Normal 3.60-5.00 [facility] Comment on above: Performed By: #### T 4F, CMP, LDH, TSH3, CBC #### [place] [address] [place] #### ACTH #### [facility] , Glucose [Mass/volume] in Ser um or PlasmaOrdered By: Sly Benson on 01-20-2024 Glucose [Mass/Vol] 112 mg/dL High 70-100 [facility] Comment on above: ADA recommended refe rence rangeRandom Glucose Reference Range is dependent on time and content of last meal. Glucose of more than 200 mg/dL in a nonstressed, ambulatory subject supports the diagnosis of Diabetes Mellitus. Result Comment: Gregory om Glucose Reference Range is dependent on time and content of last meal. Glucose of more than 200 mg/dL in a nonstressed, ambulatory subject supports the diagnosis of Diabetes Mellitus. ADA recommended reference range Performed By: #### T 4F, CMP, LDH, TSH3, CBC #### [place] [address] [place] #### ACTH #### [facility] , Hematocrit [Volume Fraction] of Blood by Automated countOrdered By: Sly Benson on 01-20-2024 Hematocrit (Bld) [Volume fraction] 43.2 % Normal 34.0-46.4 [facility] Comment on above: Performed By: #### T 4F, CMP, LDH, TSH3, CBC #### [place] [address] [place] #### ACTH #### [facility] , Hemoglobin [Mass/volume] in BloodOrdered By: Sly Benson on 01-20-2024 Hemoglobin (Bld) [Mass/Vol] 14.6 g/dL Normal 11.8-15.4 [facility] Comment on above: Performed By: #### T 4F, CMP, LDH, TSH3, CBC #### [place] [address] [place] #### ACTH #### [facility] , LDH Lactate Dehydrogenaseon 01-20-2024 LDH Lactate Dehydrogenase 191 U/L Normal 140-271 [facility] Comment on above: Performed By: #### T 4F, CMP, LDH, TSH3, CBC #### [place] [address] [place] #### ACTH #### [facility] , Lactate [...] WBC (Bld) [#/Vol] 9.2 10*3/uL Normal 3.8-11.6 [facility] Comment on above: Performed By: #### T 4F, CMP, LDH, TSH3, CBC #### [facility] [address] [place] [address] [place] #### ACTH #### [facility] , Lymphocytes [#/volume] in Bl ood by Automated countOrdered By: Sly Benson on 01-20-2024 Lymphocytes (Bld) [#/Vol] 1.7 10*3/uL Normal 1.00-4.8 [facility] Comment on above: Performed By: #### T 4F, CMP, LDH, TSH3, CBC #### [facility] [address] [place] [address] [place] #### ACTH #### [facility] , Lymphocytes/100 leukocytes i n Blood by Automated countOrdered By: Sly Benson on 01-20-2024 Lymphocytes/100 WBC (Bld) 18.2 % Normal . [facility] Comment on above: Performed By: #### T 4F, CMP, LDH, TSH3, CBC #### [facility] [address] [place] [address] [place] #### ACTH #### [facility] , MCH [Entitic mass] by Automa margot countOrdered By: Sly Benson on 01-20-2024 MCH (RBC) [Entitic mass] 30.5 pg Normal 24.7-34.3 [facility] Comment on above: Performed By: #### T 4F, CMP, LDH, TSH3, CBC #### [facility] [address] [place] [address] [place] #### ACTH #### [facility] , MCHC Auto (RBC) [Mass/Vol]Or dered By: Sly Benson on 01-20-2024 MCHC (RBC) [Mass/Vol] 33.7 g/dL 32.0-35.[address] [facility] MCV [Entitic volume] by Auto mated countOrdered By: Sly Benson on 01-20-2024 MCV (RBC) [Entitic vol] 90.4 fL Normal 80-100 [facility] Comment on above: Performed By: #### T 4F, CMP, LDH, TSH3, CBC #### [facility] [address] [place] [address] #### ACTH #### [facility] , Neutrophils [#/volume] in Bl ood by Automated countOrdered By: Sly Benson on 01-20-2024 Neutrophils (Bld) [#/Vol] 6.6 10*3/uL Normal 1.8-7.7 [facility] Comment on above: Performed By: #### T 4F, CMP, LDH, TSH3, CBC #### [facility] [address] [place] [address] #### ACTH #### [facility] , No Panel InformationOrdered By: Sly Benson on 01-20-2024 Adrenocorticotropic Hormone 21.6 pg/mL 7.2-63.3 [facility] Comment on above: ACTH reference inter jamel for samples collected between 7 and10 AM.Performed at: [facility] [place] [id number] Director: Coleman Lacy PhD, Phone: [phone] Estimated GFR (CKD-EPI) > 60.0 mL/Min [facility] [...] T 4F, CMP, LDH, TSH3, CBC #### [place] [address] [place] #### ACTH #### [facility] , Platelets [#/volume] in Bloo d by Automated countOrdered By: Sly Benson on 01-20-2024 Platelets (Bld) [#/Vol] 182 10*3/uL Normal 150-450 [facility] Comment on above: Performed By: #### T 4F, CMP, LDH, TSH3, CBC #### [place] [address] [place] #### ACTH #### [facility] , Potassium [Moles/volume] in Serum or PlasmaOrdered By: Sly Benson on 01-20-2024 Potassium [Moles/Vol] 3.6 mmol/L Normal 3.5-5.[address] [facility] Comment on above: Performed By: #### T 4F, CMP, LDH, TSH3, CBC #### [facility] [address] [place] [address] [place] #### ACTH #### [facility] , Protein [Mass/volume] in Ser um or PlasmaOrdered By: Sly Benson on 01-20-2024 Protein [Mass/Vol] 6.9 g/dL Normal 6.4-8.9 [facility] Comment on above: Performed By: #### T 4F, CMP, LDH, TSH3, CBC #### [facility] [address] [place] [address] [place] #### ACTH #### [facility] , Serum globulin measurement b y calculation (mass/volume)Ordered By: Sly Benson on 01-20-2024 Globulin (S) [Mass/Vol] 2.9 g/dL [facility] Comment on above: Performed By: #### T 4F, CMP, LDH, TSH3, CBC #### [address] #### ACTH #### [facility] , Serum or plasma albumin/glob ulin mass ratioOrdered By: Sly Benson on 01-20-2024 Albumin/Globulin [Mass ratio] 1.4 {ratio} Normal [facility] Comment on above: Performed By: #### T 4F, CMP, LDH, TSH3, CBC #### [address] #### ACTH #### [facility] , Serum or plasma anion gap de terminationOrdered By: Sly Benson on 01-20-2024 Anion gap [Moles/Vol] 11.5 mmol/L Normal 6.0-15.0 [facility] Comment on above: Performed By: #### T 4F, CMP, LDH, TSH3, CBC #### [address] #### ACTH #### [facility] , Sodium [Moles/volume] in Ser um or PlasmaOrdered By: Sly Benson on 01-20-2024 Sodium [Moles/Vol] 139 mmol/L Normal 136-145 [facility] Comment on above: Performed By: #### T 4F, CMP, LDH, TSH3, CBC #### [facility] [address] [place] [address] [place] #### ACTH #### [facility] , Thyrotropin [Units/volume] i n Serum or PlasmaOrdered By: Sly Benson on 01-20-2024 TSH Qn 2.04 m[IU]/L Normal 0.45-5.33 [facility] Comment on above: Result Comment: PERF ORMED BY: [place] [address] PATHOLOGIST AIRLINE STATION AGENT WAYLON SAUNDERS M.D. Performed By: #### T 4F, CMP, LDH, TSH3, CBC #### [facility] [address] [place] [address] [place] #### ACTH #### [facility] , Thyroxine (T4) free [Mass/vo lume] in Serum or PlasmaOrdered By: Sly Benson on 01-20-2024 Free T4 [Mass/Vol] 1.16 ng/dL High 0.61-1.12 [facility] Comment on above: Performed By: #### T 4F, CMP, LDH, TSH3, CBC #### [facility] [address] [place] [address] #### ACTH #### [facility] , Urea nitrogen [Mass/volume] in Serum or PlasmaOrdered By: Sly Benson on 01-20-2024 Urea nitrogen [Mass/Vol] 19 mg/dL Normal 7-25 [facility] Comment on above: Performed By: #### T 4F, CMP, LDH, TSH3, CBC #### [facility] [address] [place] [address] [place] #### ACTH #### [facility] , XR Wrist - left 3 ViewsOrder ed By: Caty Gaona on 2023 Radiology Study observation (narrative) [facility] XR Wrist - left 3 ViewsOrder ed By: Caty Gaona on 10-01-2023 [facility] Basic Metabolic Panelon Anion gap [Moles/Vol] 7 mmol/L 5 - 15 mmol/L [facility] Calcium [Mass/Vol] 9.5 mg/dL 8.5 - 10. 5 mg/dL [facility] Chloride [Moles/Vol] 101 mmol/L 98 - 10 9 mmol/L [facility] CO2 [Moles/Vol] 32 mmol/L 22 - 32 mmol/L [facility] Creatinine [Mass/Vol] 0.96 mg/dL 0.40 - 1.00 mg/dL [facility] Comment on above: METHOD TRACEABLE TO [facility] STANDARD eGFR (CKD-EPI)non-race dependent 61 - PINF [facility] Comment on above: Reported eGFR is based on the CKD-EPI 2020 equation that does not use a race coefficient. Glucose [Mass/Vol] 107 mg/dL High 65 - 99 mg/dL [facility] Interpretation and review of laboratory results Abnormal [facility] Potassium [Moles/Vol] 3.3 mmol/L Low 3.5 - 5.0 mmol/L [facility] Sodium [Moles/Vol] 140 mmol/L 134 - 146 mmol/L [facility] Urea nitrogen [Mass/Vol] 22 mg/dL 5 - 27 mg/dL [facility] CBC without diffon 4 Erythrocyte distribution width (RBC) [Ratio] 13.9 % 11.5 - 15.0 % [facility] Hematocrit (Bld) [Volume fraction] 39.4 % 35 - 47 % [facility] Hemoglobin (Bld) [Mass/Vol] 13.5 g/dL 11.7 - 15.5 g/dL [facility] MCH (RBC) [Entitic mass] 30.4 pg 27 - 34 pg [facility] MCHC (RBC) [Mass/Vol] 34.2 g/dL 32 - 3 6 g/dL [facility] MCV (RBC) [Entitic vol] 89 fL 80 - 100 fL [facility] Platelet mean volume (Bld) [Entitic vol] 7.9 fL 7 - 12 fL [facility] Platelets (Bld) [#/Vol] 202 10*3/uL [facility] RBC (Bld) [#/Vol] 4.43 10*6/uL [facility] WBC corrected for nucl RBC Auto (Bld) [#/Vol] 6.6 [facility] Lipid 1996 panelon 4 Cholesterol [Mass/Vol] 154 mg/dL 150 - 200 mg/dL [facility] Cholesterol in HDL [Mass/Vol] 76 mg/dL 39 - PINF mg/dL [facility] Comment on above: HDL <40 mg/dL - High Risk HDL > or = 40mg/dL- Desirable HDL >60 mg/dL - Negative Risk Cholesterol in LDL [Mass/Vol] 52 mg/dL NINF - 130 mg/dL [facility] Comment on above: LDL <100 mg/dL - Desirable LDL >160 mg/dL - High Risk Cholesterol in VLDL [Mass/Vol] 26 mg/dL 0 - 30 mg/dL [facility] Cholesterol.total/Chol esterol in HDL [Mass ratio] 2.0 {ratio} 1.0 - 5.0 [facility] Triglyceride [Mass/Vol] 132 mg/dL 27 - 150 mg/dL [facility] Magnesiumon 09-15-2023 Magnesium [Mass/Vol] 1.9 mg/dL 1.8 - 2 .6 mg/dL [facility] No Panel Informationon 09-14 [facility] Parathyrin.intact [Mass/Vol] on 09-15-2023 [facility] Parathyroid Hormone, intacto n 09-15-2023 Parathyrin.intact [Mass/Vol] 36 pg/mL 12 - 88 pg/mL [facility] Phosphoruson 09-15-2023 Phosphate [Mass/Vol] 3.6 mg/dL 2.4 - 4 .9 mg/dL [facility] Uric acidon 09-15-2023 Urate [Mass/Vol] 5.4 mg/dL 2.6 - 7.2 mg/dL [facility] Vitamin D 25 hydroxyon 09-14 Vitamin D+Metabolites [Mass/Vol] 28.4 ng/mL Low 30 - 100 ng/mL [facility] Comment on above: Vitamin D status 25 [place] Vitamin D Deficiency <20 ng/mL Insufficiency 20-29 ng/mL Sufficiency 30-100 ng/mL Toxicity >100 ng/mL NOTE: A pediatric reference range has not been established by the chemical economist of this kit. The [employer] recommends a Vitamin D level of = or >20ng/mL in infants and children. Vitamin D+Metabolites [Mass/ Vol]on 09-15-2023 Interpretation and review of laboratory results Abnormal [facility] [facility] Complete Blood Count Auto Di ffon 08-07-2023 Basophils (Bld) [#/Vol] 0.0 10*3/uL Normal 0.0-0.2 [facility] Comment on above: Result Comment: PERF ORMED BY: [place] [address] PATHOLOGIST AIRLINE STATION AGENT WAYLON SAUNDERS M.D. Performed By: #### R EDRAW LDH REDRAW K #### [address] Basophils/100 WBC (Bld) 0.5 % Normal . [facility] Comment on above: Performed By: #### R EDRAW LDH REDRAW K #### [address] Eosinophils (Bld) [#/Vol] 0.0 10*3/uL Normal 0.0-0.45 [facility] Comment on above: Performed By: #### R EDRAW LDH REDRAW K #### [address] Eosinophils/100 WBC (Bld) 0.1 % Normal . [facility] Comment on above: Performed By: #### R EDRAW LDH REDRAW K #### [address] Erythrocyte distribution width (RBC) [Ratio] 13.6 % Normal 11.9-15.3 [facility] Comment on above: Performed By: #### R EDRAW LDH REDRAW K #### [address] Hematocrit (Bld) [Volume fraction] 37.0 % Normal 34.0-46.4 [facility] Comment on above: Performed By: #### R EDRAW LDH, REDRAW K #### [address] Hemoglobin (Bld) [Mass/Vol] 12.8 g/dL Normal 11.8-15.4 [facility] Comment on above: Performed By: #### R EDRAW LDH, REDRAW K #### [address] Lymphocytes (Bld) [#/Vol] 1.1 10*3/uL Normal 1.00-4.8 [facility] Comment on above: Performed By: #### R EDRAW LDH, REDRAW K #### [address] Lymphocytes/100 WBC (Bld) 13.9 % Normal . [facility] Comment on above: Performed By: #### R EDRAW LDH, REDRAW K #### [address] MCH (RBC) [Entitic mass] 30.2 pg Normal 24.7-34.3 [facility] Comment on above: Performed By: #### R EDRAW LDH, REDRAW K #### [address] MCV (RBC) [Entitic vol] 87.3 fL Normal 80-100 [facility] Comment on above: Performed By: #### R EDRAW LDH, REDRAW K #### [address] Mean Corpuscular HGB Conc 34.6 g/dL Normal 32.0-35.0 [facility] Comment on above: Performed By: #### R EDRAW LDH, REDRAW K #### [address] Monocytes (Bld) [#/Vol] 0.5 10*3/uL Normal 0.0-0.8 [facility] Comment on above: Performed By: #### R EDRAW LDH, REDRAW K #### [address] Monocytes/100 WBC (Bld) 6.4 % Normal . [facility] Comment on above: Performed By: #### R EDRAW LDH, REDRAW K #### [address] Neutrophils (Bld) [#/Vol] 6.0 10*3/uL Normal 1.8-7.7 [facility] Comment on above: Performed By: #### R EDRAW LDH, REDRAW K #### [address] Neutrophils/100 WBC (Bld) 79.1 % Normal . [facility] Comment on above: Performed By: #### R EDRAW LDH, REDRAW K #### [address] NRBC% 0.0 /100{WBC} Normal 0-0.5 [facility] Comment on above: Performed By: #### R EDRAW LDH, REDRAW K #### [address] Platelet mean volume (Bld) [Entitic vol] 7.3 fL Normal 6.3-10.7 [facility] Comment on above: Performed By: #### R EDRAW LDH, REDRAW K #### [place] [address] [place] Platelets (Bld) [#/Vol] 202 10*3/uL Normal 150-450 [facility] Comment on above: Performed By: #### R EDRAW LDH, REDRAW K #### [place] [address] [place] RBC (Bld) [#/Vol] 4.24 10*6/uL Normal 3.60-5.00 [facility] Comment on above: Performed By: #### R EDRAW LDH, REDRAW K #### [address] WBC (Bld) [#/Vol] 7.6 10*3/uL Normal 3.8-11.6 [facility] Comment on above: Performed By: #### R EDRAW LDH, REDRAW K #### [place] [address] [place] Adrenocorticotropic Hormone PLon 08-06-[address] 21.1 pg/mL Normal 7.2-63.3 [facility] Comment on above: Result Comment: ACTH reference interval for samples collected between 7 and 10 AM. Performed at: [facility] [id number] [employer]house [employer] Specialist: Coleman Lacy PhD, Phone: [phone] PERFORMED BY: [place] [address] PATHOLOGIST AIRLINE STATION AGENT WAYLON SAUNDERS M.D. Performed By: #### [facility] #### [facility] , Alanine aminotransferase [En zymatic activity/volume] in Serum or PlasmaOrdered By: Sly Benson on 08-06-2023 ALT [Catalytic activity/Vol] 23 U/L Normal 7-52 [facility] Comment on above: Performed By: #### R EDRAW LDH, REDRAW K #### [place] [address] [place] Albumin [Mass/volume] in Ser um or Plasma by Bromocresol green (BCG) dye binding methoOrdered By: Sly Benson on 08-06-2023 Albumin BCG dye [Mass/Vol] 4.0 g/dL 3.5-5.7 [facility] Alkaline phosphatase [Enzyma tic activity/volume] in Serum or PlasmaOrdered By: Sly Benson on 08-06-2023 ALP [Catalytic activity/Vol] 95 U/L Normal 34-104 [facility] Comment on above: Performed By: #### R EDRAW LDH, REDRAW K #### [address] [place] [address] [place] Aspartate aminotransferase [ Enzymatic activity/volume] in Serum or PlasmaOrdered By: Sly Benson on 08-06-2023 AST [Catalytic activity/Vol] 29 U/L Normal 13-39 [facility] Comment on above: Performed By: #### R EDRAW LDH, REDRAW K #### [address] Bilirubin.total [Mass/volume ] in Serum or PlasmaOrdered By: Sly Benson on 08-06-2023 Bilirubin [Mass/Vol] 0.6 mg/dL Normal 0.3-1.0 [facility] Comment on above: Performed By: #### R EDRAW LDH, REDRAW K #### [address] abdomen pelvis w conon CT abdomen pelvis w con [facility] Main [place] [address] [place] [address] CT Scan Report Signed Patient: Theresa Luu MR#: [id number] : 1945 Acct:[id number] Age/Sex: 77 / F ADM Date: 08/06/23 Loc: [facility]: [facility]: Sly Benson II DO Copies to: Sly Benson II, DO Ordering Provider: Sly Benson II, DO Date of Service: 08/06/23 CT/CT abdomen pelvis w con: surveillance ([id number]) CT/CT chest w con: surveillance CT CHEST, [...] Monroe Jr., D.O.08/06/2023 2:43 PM Dictation Location: [place] [address] Transcribed By: [facility] 08/06/23 1443 Dictated By: Sylvain Monroe Jr, DO 08/06/23 1430 Signed By: 08/06/23 1443 Normal [facility] Calcium [Mass/volume] in Ser um or PlasmaOrdered By: Sly Benson on 08-06-2023 Calcium [Mass/Vol] 9.2 mg/dL Normal 8.6-10.3 [facility] Comment on above: Performed By: #### R EDRAW LDH, REDRAW K #### [address] Carbon dioxide, total [Moles /volume] in Serum or PlasmaOrdered By: Sly Benson on 08-06-2023 CO2 [Moles/Vol] 30.5 mmol/L Normal 21.0-31.0 [facility] Comment on above: Performed By: #### R EDRAW LDH, REDRAW K #### [address] Chloride [Moles/volume] in S mellissa or PlasmaOrdered By: Sly Benson on 08-06-2023 Chloride [Moles/Vol] 104 mmol/L Normal 98-107 [facility] Comment on above: Performed By: #### R EDRAW LDH, REDRAW K #### [address] Comprehensive Metabolic Pane walter 08-06-2023 Albumin [Mass/Vol] 4.0 g/dL Normal 3.5-5.7 [facility] Comment on above: Performed By: #### R EDRAW LDH, REDRAW K #### [address] Anion gap [Moles/Vol] Not performed Normal 6.0-15.0 [facility] Comment on above: Performed By: #### R EDRAW LDH, REDRAW K #### [place] [address] [place] Creatinine Clr Calc Pharmacy 57.70 Normal [facility] Comment on above: Performed By: #### R EDRAW LDH, REDRAW K #### [place] [address] [place] GFR/1.73 sq M.predicted MDRD (S/P/Bld) [Vol rate/Area] mL/min/{1.73_m2} Normal [facility] Comment on above: Performed By: #### R EDRAW LDH, REDRAW K #### [address] Potassium Normal 3.5-5.1 [facility] Comment on above: Result Comment: Spec imen hemolyzed, redraw requested Performed By: #### R EDRAW LDH, REDRAW K #### [place] [id number] [place] Creatinine [Mass/volume] in Serum or PlasmaOrdered By: Sly Benson on 08-06-2023 Creatinine [Mass/Vol] 0.87 mg/dL Normal 0.60-1.[address] [facility] Comment on above: Performed By: #### R EDRAW LDH, REDRAW K #### [facility] [address] [place] [id number] [place] Glucose [Mass/volume] in Ser um or PlasmaOrdered By: Sly Benson on 08-06-2023 Glucose [Mass/Vol] 95 mg/dL Normal 70-100 [facility] Comment on above: ADA recommended refe rence rangeRandom Glucose Reference Range is dependent on time and content of last meal. Glucose of more than 200 mg/dL in a nonstressed, ambulatory subject supports the diagnosis of Diabetes Mellitus. Result Comment: Gregory om Glucose Reference Range is dependent on time and content of last meal. Glucose of more than 200 mg/dL in a nonstressed, ambulatory subject supports the diagnosis of Diabetes Mellitus. ADA recommended reference range Performed By: #### R EDRAW LDH, REDRAW K #### [facility] [address] [place] [id number] [facility] LDH Lactate Dehydrogenaseon 08-06-2023 LDH Lactate Dehydrogenase Normal 140-271 [facility] Comment on above: Result Comment: Spec imen hemolyzed, redraw requested Performed By: #### R EDRAW LDH, REDRAW K #### [facility] [address] [place] [id number] [place] Lactate dehydrogenase [Enzym atic activity/volume] in [...] Serum or PlasmaOrdered By: Sly Benson on 01-25-2024 Potassium [Moles/Vol] 3.6 mmol/L Normal 3.5-5.[address] [facility] Comment on above: Order Comment: SPECI MEN HEMOLYZED. NOTIFIED CHON. Performed By: #### R EDRAW LDH, REDRAW K #### [address] Protein [Mass/volume] in Ser um or PlasmaOrdered By: Sly Benson on 08-06-2023 Protein [Mass/Vol] 7.0 g/dL Normal 6.4-8.9 [facility] Comment on above: Performed By: #### R EDRAW LDH, REDRAW K #### [address] Redraw LDHon 08-06-2023 Redraw LDH 173 U/L Normal 140-271 [facility] Comment on above: Order Comment: SPECI MEN HEMOLYZED. NOTIFIED CHON. Result Comment: PERF ORMED BY: [place] [address] PATHOLOGIST [employer]LINE [employer]ATION AGENT WAYLON SAUNDERS M.D. Performed By: #### R EDRAW LDH, REDRAW K #### [address] Serum globulin measurement b y calculation (mass/volume)Ordered By: Sly Benson on 08-06-2023 Globulin (S) [Mass/Vol] 3.0 g/dL [facility] Comment on above: Performed By: #### R EDRAW LDH, REDRAW K #### [address] Serum or plasma albumin/glob ulin mass ratioOrdered By: Sly Benson on 08-06-2023 Albumin/Globulin [Mass ratio] 1.3 {ratio} [facility] Comment on above: Performed By: #### R EDRAW LDH, REDRAW K #### [facility] [address] [place] [address] Serum or plasma anion gap de terminationOrdered By: Sly Benson on 08-06-2023 Anion gap [Moles/Vol] TNP [facility] Comment on above: Test not performed Sodium [Moles/volume] in Ser um or PlasmaOrdered By: Sly Benson on 08-06-2023 Sodium [Moles/Vol] 141 mmol/L Normal 136-145 [facility] Comment on above: Performed By: #### R DIPTI LDH REDRAW K #### [address] Thyrotropin [Units/volume] i n Serum or PlasmaOrdered By: Sly Benson on 08-06-2023 TSH Qn 2.81 m[IU]/L Normal 0.45-5.33 [facility] Comment on above: Result Comment: PERF ORMED BY: [place] [address] PATHOLOGIST [employer]LINE STATION AGENT WALYON SAUNDERS M.D. Performed By: #### R CHARMAINEW LDH REDRAW K #### [address] Thyroxine (T4) free [Mass/vo lume] in Serum or PlasmaOrdered By: Sly Benson on 08-06-2023 Free T4 [Mass/Vol] 1.13 ng/dL High 0.61-1.12 [facility] Comment on above: Performed By: #### R DIPTI LDH REDRAW K #### [facility] [address] [place] [address] [place] Urea nitrogen [Mass/volume] in Serum or PlasmaOrdered By: Sly Benson on 08-06-2023 Urea nitrogen [Mass/Vol] 23 mg/dL Normal 02-03 [facility] Comment on above: Performed By: #### R DIPTI CAREY REDRAW K #### [address] Alanine aminotransferase [En zymatic activity/volume] in Serum or PlasmaOrdered By: Sly Benson on 03-05-2023 ALT [Catalytic activity/Vol] 22 U/L [facility] Albumin [Mass/volume] in Ser [...] on 03-05-2023 Bilirubin [Mass/Vol] 0.6 mg/dL 0.3-1.0 [facility] Calcium [Mass/volume] in Ser um or PlasmaOrdered By: Sly Benson on 03-05-2023 Calcium [Mass/Vol] 9.4 mg/dL 8.6-10.3 [facility] Carbon dioxide, total [Moles /volume] in Serum or PlasmaOrdered By: Sly Benson on 03-05-2023 CO2 [Moles/Vol] 28.0 mmol/L 21.0-31.0 [facility] Chloride [Moles/volume] in S mellissa or PlasmaOrdered By: Sly Benson on 03-05-2023 Chloride [Moles/Vol] 104 mmol/L 98-107 [facility] Creatinine [Mass/volume] in Serum or PlasmaOrdered By: Sly Benson on 03-05-2023 Creatinine [Mass/Vol] 0.91 mg/dL 0.60-1.[address] [facility] Eosinophils Auto (Bld) [#/Vo l]Ordered By: [...] on 03-05-2023 Glucose [Mass/Vol] 102 mg/dL 70-100 [facility] Comment on above: ADA recommended refe [...] Hemoglobin [Mass/volume] in BloodOrdered By: Sly Benson 03-05-2023 Hemoglobin (Bld) [Mass/Vol] 13.6 g/dL 11.8-15.4 [...] 03-05-2023 MCHC (RBC) [Mass/Vol] 34.3 g/dL 32.0-35.[address] [facility] MCV Auto (RBC) [Entitic vol] Ordered [...] samples collected between 7 and10 AM.Performed at: [facility] [address] [id number] Director: Coleman Lacy PhD, Phone: [phone] Estimated GFR (CKD-EPI) > 60.0 mL/Min [facility] [...] on 03-05-2023 Potassium [Moles/Vol] 3.8 mmol/L 3.5-5.[address] [facility] Protein [Mass/volume] in Ser um or PlasmaOrdered By: Sly Benson on 03-05-2023 Protein [Mass/Vol] 6.9 g/dL 6.4-8.9 [facility] RBC Auto (Bld) [#/Vol]Ordere d By: Sly Benson on 03-05-2023 RBC (Bld) [#/Vol] 4.51 10*6/uL 3.60-5.00 [facility] Serum or plasma albumin/glob ulin mass ratioOrdered By: Sly Benson on 03-05-2023 Albumin/Globulin [Mass ratio] 1.5 {ratio} [facility] Serum or plasma anion gap de terminationOrdered By: Sly Benson on 03-05-2023 Anion gap [Moles/Vol] 12.8 mmol/L 6.0-15.0 [facility] Sodium [Moles/volume] in Ser um or PlasmaOrdered By: Sly Benson on 03-05-2023 Sodium [Moles/Vol] 141 mmol/L 136-145 [facility] Thyrotropin [Units/volume] i n Serum or PlasmaOrdered By: Sly Benson on 03-05-2023 TSH Qn 2.49 m[IU]/L 0.45-5.33 [facility] Thyroxine (T4) free [Mass/vo lume] in Serum or PlasmaOrdered By: Sly Benson on 03-05-2023 Free T4 [Mass/Vol] 0.94 ng/dL 0.61-1.12 [facility] Urea nitrogen [Mass/volume] in Serum or PlasmaOrdered By: Sly Benson on 03-05-2023 Urea nitrogen [Mass/Vol] 17 mg/dL 7- [facility] WBC Auto (Bld) [#/Vol]Ordere d By: Sly Benson on 03-05-2023 WBC (Bld) [#/Vol] 6.3 10*3/uL 3.8-11.6 [facility] Alanine aminotransferase [En zymatic activity/volume] in Serum or PlasmaOrdered By: Sly Benson on 12-30-2022 ALT [Catalytic activity/Vol] 24 U/L 752 [facility] Albumin [Mass/volume] in Ser [...] Serum or PlasmaOrdered By: Sly Benson on 06-20-2023 AST [Catalytic activity/Vol] 22 U/L 13-39 [facility] [...] on 12-30-2022 Bilirubin [Mass/Vol] 0.5 mg/dL 0.3-1.0 [facility] Calcium [Mass/volume] in Ser um or PlasmaOrdered By: Sly Benson on 12-30-2022 Calcium [Mass/Vol] 9.1 mg/dL 8.6-10.3 [facility] Carbon dioxide, total [Moles /volume] in Serum or PlasmaOrdered By: Sly Benson on 12-30-2022 CO2 [Moles/Vol] 30.7 mmol/L 21.0-31.0 [facility] Chloride [Moles/volume] in S mellissa or PlasmaOrdered By: Sly Benson on 12-30-2022 Chloride [Moles/Vol] 104 mmol/L 98-107 [facility] Creatinine [Mass/volume] in Serum or PlasmaOrdered By: Sly Benson on 12-30-2022 Creatinine [Mass/Vol] 0.92 mg/dL 0.60-1.[address] [facility] Eosinophils Auto (Bld) [#/Vo l]Ordered By: [...] on 12-30-2022 Glucose [Mass/Vol] 102 mg/dL 70-100 [facility] Comment on above: ADA recommended refe [...] 12-30-2022 MCHC (RBC) [Mass/Vol] 34.3 g/dL 32.0-35.[address] [facility] MCV Auto (RBC) [Entitic vol] Ordered [...] System Neutrophils/100 WBC Auto (Bl d)Ordered By: Syl Benson on 12-30-2022 Neutrophils/100 WBC (Bld) 65.0 % . [facility] No Panel InformationOrdered By: Sly Benson on 12-30-2022 Adrenocorticotropic Hormone 28.9 pg/mL 7.2-63.3 [facility] Comment on above: ACTH reference inter jamel for samples collected between 7 and10 AM.Performed at: [facility] [id number] Director: Coleman Lacy PhD, Phone: [phone] Estimated GFR (CKD-EPI) > 60.0 mL/Min [facility] [...] on 12-30-2022 Potassium [Moles/Vol] See comment 3.5-5.1 [facility] Comment on above: Specimen hemolyzed, redraw requested --- 12/30/22 1036 ---K previously reported as: 3.9 mmol/LHemolysis is present at a level that could interfere with the result. Protein [Mass/volume] in Ser um or PlasmaOrdered By: Sly Benson on 12-30-2022 Protein [Mass/Vol] 6.5 g/dL 6.4-8.9 [facility] RBC Auto (Bld) [#/Vol]Ordere d By: Sly Benson on 12-30-2022 RBC (Bld) [#/Vol] 4.46 10*6/uL 3.60-5.00 [facility] Serum or plasma albumin/glob ulin mass ratioOrdered By: Sly Benson on 12-30-2022 Albumin/Globulin [Mass ratio] 1.6 {ratio} [facility] Serum or plasma anion gap de terminationOrdered By: Sly Benson on 12-30-2022 Anion gap [Moles/Vol] TNP [facility] Comment on above: Test not performed-- - 12/30/22 1038 ---Gap previously reported as: 10.2 mEq/L Sodium [Moles/volume] in Ser um or PlasmaOrdered By: Sly Benson on 12-30-2022 Sodium [Moles/Vol] 141 mmol/L 136-145 [facility] Thyrotropin [Units/volume] i n Serum or PlasmaOrdered By: Sly Benson on 12-30-2022 TSH Qn 2.31 m[IU]/L 0.45-5.33 [facility] Thyroxine (T4) free [Mass/vo lume] in Serum or PlasmaOrdered By: Sly Benson on 12-30-2022 Free T4 [Mass/Vol] 1.03 ng/dL 0.61-1.12 [facility] Urea nitrogen [Mass/volume] in Serum or PlasmaOrdered By: Sly Benson on 12-30-2022 Urea nitrogen [Mass/Vol] 17 mg/dL 7-25 [facility] WBC Auto (Bld) [#/Vol]Ordere d By: Sly Benson on 12-30-2022 WBC (Bld) [#/Vol] 6.8 10*3/uL 3.8-11.6 [facility] Alanine aminotransferase [En zymatic activity/volume] in [...] on 10-31-2022 Bilirubin [Mass/Vol] 0.7 mg/dL 0.3-1.0 [facility] Calcium [Mass/volume] in Ser um or PlasmaOrdered By: Sly Benson on 10-31-2022 Calcium [Mass/Vol] 8.9 mg/dL 8.6-10.3 [facility] Carbon dioxide, total [Moles /volume] in Serum or PlasmaOrdered By: Sly Benson on 10-31-2022 CO2 [Moles/Vol] 28.6 mmol/L 21.0-31.0 [facility] Chloride [Moles/volume] in S mellissa or PlasmaOrdered By: Sly Benson on 10-31-2022 Chloride [Moles/Vol] 104 mmol/L 98-107 [facility] Creatinine [Mass/volume] in Serum or PlasmaOrdered By: Sly Benson on 10-31-2022 Creatinine [Mass/Vol] 0.93 mg/dL 0.60-1.[address] [facility] Eosinophils Auto (Bld) [#/Vo l]Ordered By: [...] on 10-31-2022 Globulin (S) [Mass/Vol] 2.9 g/dL [facility] Glucose [Mass/volume] in Ser um or PlasmaOrdered By: Sly Benson on 10-31-2022 Glucose [Mass/Vol] 100 mg/dL 70-100 [facility] Comment on above: ADA recommended refe [...] 10-31-2022 MCHC (RBC) [Mass/Vol] 33.8 g/dL 32.0-35.[address] [facility] MCV Auto (RBC) [Entitic vol] Ordered [...] samples collected between 7 and10 AM.Performed at: [facility] [id number] Director: Coleman Lacy PhD, Phone: [phone] Estimated GFR (CKD-EPI) > 60.0 mL/Min [facility] [...] on 10-31-2022 Potassium [Moles/Vol] 3.8 mmol/L 3.5-5.[address] [facility] Protein [Mass/volume] in Ser um or PlasmaOrdered By: Sly Benson on 10-31-2022 Protein [Mass/Vol] 6.9 g/dL 6.4-8.9 [facility] RBC Auto (Bld) [#/Vol]Ordere d By: Sly Benson on 10-31-2022 RBC (Bld) [#/Vol] 4.70 10*6/uL 3.60-5.00 [facility] Serum or plasma albumin/glob ulin mass ratioOrdered By: Sly Benson on 10-31-2022 Albumin/Globulin [Mass ratio] 1.4 {ratio} [facility] Serum or plasma anion gap de terminationOrdered By: Sly Benson on 10-31-2022 Anion gap [Moles/Vol] 12.2 mmol/L 6.0-15.0 [facility] Sodium [Moles/volume] in Ser um or PlasmaOrdered By: Sly Benson on 10-31-2022 Sodium [Moles/Vol] 141 mmol/L 136-145 [facility] Thyrotropin [Units/volume] i n Serum or PlasmaOrdered By: Sly Benson on 10-31-2022 TSH Qn 2.49 m[IU]/L 0.45-5.33 [facility] Thyroxine (T4) free [Mass/vo lume] in Serum or PlasmaOrdered By: Sly Benson on 10-31-2022 Free T4 [Mass/Vol] 1.02 ng/dL 0.61-1.12 [facility] Urea nitrogen [Mass/volume] in Serum or PlasmaOrdered By: Sly Benson on 10-31-2022 Urea nitrogen [Mass/Vol] 19 mg/dL 02-03 [facility] WBC Auto (Bld) [#/Vol]Ordere d By: Sly Benson on 10-31-2022 WBC (Bld) [#/Vol] 6.8 10*3/uL 3.8-11.6 [facility] ACTH, PLASMAon 10-04-2022 ACTH, Plasma 48.7 pg/mL Normal 7.2-63.3 [facility] Comment on above: Result Comment: ACTH reference interval for samples collected between 7 and 10 AM. Performed By: #### A CTHP #### [facility] [address] [place] [address] Dr. Alesia Meyers CBC AUTO DIFFon 10-03-2022 BASO # 0.1 103/ul Normal 0.0-0.1 [facility] Comment on above: Performed By: #### T SH, CMP, LDH #### [facility] [address] [place] [address] Dr. Alesia Meyers Basophils/100 WBC (Bld) 1.2 % Normal 0.2-2.0 [facility] Comment on above: Performed By: #### T SH, CMP, LDH #### [facility] [address] [place] [address] Dr. Alesia Meyers EO # 0.2 103/ul Normal 0.0-0.7 [facility] Comment on above: Performed By: #### T SH, CMP, LDH #### [facility] [address] [place] [address] Dr. Alesia Meyers Eosinophils/100 WBC (Bld) 2.5 % Normal 0.9-7.0 [facility] Comment on above: Performed By: #### T SH, CMP, LDH #### [facility] [address] [place] [address] Dr. Alesia Meyers Erythrocyte distribution width (RBC) [Ratio] 13.9 % Normal 11.0-15.0 [facility] Comment on above: Performed By: #### T SH, CMP, LDH #### [facility] [address] [place] [address] [address] Alesia Meyers Hematocrit (Bld) [Volume fraction] 41.9 % Normal 36.0-48.0 [facility] Comment on above: Performed By: #### T SH, CMP, LDH #### [facility] [address] [address] [address] Alesia Meyers Hemoglobin (Bld) [Mass/Vol] 13.6 g/dL Normal 12.0-16.0 [facility] Comment on above: Performed By: #### T SH, CMP, LDH #### [facility] [address] [place] [address] Dr. Alesia Meyers IG # 0.04 10e3/ul Critically high 0.00-0.03 [facility] Comment on above: Performed By: #### T SH, CMP, LDH #### [facility] [address] [place] [address] Dr. Alesia Meyers IG % 0.7 % Critically high 0.0-0.5 [facility] Comment on above: Performed By: #### T SH, CMP, LDH #### [facility] [address] [address] [address] Alesia Meyers LYMPH # 2.1 103/ul Normal 1.2-3.8 [facility] Comment on above: Performed By: #### T SH, CMP, LDH #### [facility] [address] [address] [address] Alesia Meyers Lymphocytes/100 WBC (Bld) 35.5 % Normal 20.5-60.0 [facility] Comment on above: Performed By: #### T SH, CMP, LDH #### [facility] [address] [address] [address] Alesia Meyers MANUAL DIFF REQ NO Normal [facility] Comment on above: Performed By: #### T SH, CMP, LDH #### [facility] [address] [place] [address] Dr. Alesia Meyers MCH (RBC) [Entitic mass] 28.9 pg Normal 26.7-34.0 [facility] Comment on above: Performed By: #### T SH, CMP, LDH #### [facility] [address] [place] [address] Dr. Alesia Meyers MCHC (RBC) [Mass/Vol] 32.5 g/dL Normal 29.9-35.2 [facility] Comment on above: Performed By: #### T SH, CMP, LDH #### [facility] [address] [place] [address] Dr. Alesia Meyers MCV (RBC) [Entitic vol] 89.1 fL Normal 81.0-99.0 [facility] Comment on above: Performed By: #### T SH, CMP, LDH #### [facility] [address] [place] [address] Dr. Alesia Meyers MONO # 0.6 103/ul Normal 0.3-0.8 [facility] Comment on above: Performed By: #### T SH, CMP, LDH #### [facility] [address] [place] [address] Dr. Alesia Meyers Monocytes/100 WBC (Bld) 10.8 % Normal 1.7-12.0 [facility] Comment on above: Performed By: #### T SH, CMP, LDH #### [facility] [address] [place] [address] Dr. Alesia Meyers NEUT # 2.9 103/ul Normal 1.4-6.5 [facility] Comment on above: Performed By: #### T SH, CMP, LDH #### [facility] [address] [place] [address] Dr. Alesia Meyers Neutrophils/100 WBC (Bld) 49.3 % Normal 43.0-75.0 [facility] Comment on above: Performed By: #### T SH, CMP, LDH #### [facility] [address] [place] [address] Dr. Alesia Meyers Platelet mean volume (Bld) [Entitic vol] 8.8 fL Critically low 9.5-13.5 [facility] Comment on above: Performed By: #### T SH, CMP, LDH #### [facility] [address] [place] [address] Dr. Alesia Meyers PLT 226 103/ul Normal 150-450 [facility] Comment on above: Performed By: #### T SH, CMP, LDH #### [facility] [address] [address] [address] Alesia Meyers RBC 4.70 106/ul Normal 4.20-5.40 [facility] Comment on above: Performed By: #### T SH, CMP, LDH #### [facility] [address] [place] [address] Dr. Alesia Meyers WBC 5.9 103/ul Normal 4.0-11.0 [facility] Comment on above: Performed By: #### T SH, CMP, LDH #### [facility] [address] [place] [address] Dr. Alesia Meyers FREE T4on 10-03-2022 Free T4 [Mass/Vol] 1.02 ng/dL Normal 0.76-1.46 [facility] Comment on above: Performed By: #### F T4 #### [facility] [address] [place] [address] Dr. Alesia Meyesr LDHon 10-03-2022 LDH 212 U/L Normal 81-234 [facility] Comment on above: Performed By: #### F T4 #### [facility] [address] [place] [address] Dr. Alesia Meyers PROF 14(COMP METB)on 023 Albumin [Mass/Vol] 3.5 g/dL Normal 3.4-5.0 [facility] Comment on above: Performed By: #### F T4 #### [facility] [address] [place] [address] Dr. Alesia Meyers Albumin/Globulin [Mass ratio] 1.1 {ratio} Normal [facility] Comment on above: Performed By: #### F T4 #### [facility] [address] [place] [address] Dr. Alesia Meyers ALP [Catalytic activity/Vol] 120 U/L Critically high 46-116 [facility] Comment on above: Performed By: #### F T4 #### [facility] [address] [address] [address] Alesia Meyers ALT [Catalytic activity/Vol] 37 U/L Normal 14-59 [facility] Comment on above: Performed By: #### F T4 #### [facility] [address] [address] [address] Alesia Meyers Anion gap [Moles/Vol] 11.4 mmol/L Normal [facility] Comment on above: Performed By: #### F T4 #### [facility] [address] [address] [address] Alesia Meyers AST [Catalytic activity/Vol] 28 U/L Normal 15-37 [facility] Comment on above: Performed By: #### F T4 #### [facility] [address] [place] [address] Dr. Alesia Meyers Bilirubin [Mass/Vol] 0.4 mg/dL Normal 0.2-1.0 [facility] Comment on above: Performed By: #### F T4 #### [facility] [address] [place] [address] Dr. Alesia Meyers Calcium [Mass/Vol] 9.2 mg/dL Normal 8.5-10.1 [facility] Comment on above: Performed By: #### F T4 #### [facility] [address] [place] [address] Dr. Alseia Meyers Chloride [Moles/Vol] 105 mmol/L Normal 98-107 [facility] Comment on above: Performed By: #### F T4 #### [facility] [address] [place] [address] Dr. Alesia Meyers CO2 [Moles/Vol] 30.4 mmol/L Normal 21.0-32.0 [facility] Comment on above: Performed By: #### F T4 #### [facility] [address] [address] [address] Alesia Meyers Creatinine [Mass/Vol] 0.88 mg/dL Normal 0.55-1.02 [facility] Comment on above: Performed By: #### F T4 #### [facility] [address] [address] [address] Alesia Meyers EGFR-AF AUSTRALIAN >60 Normal >=60 [facility] Comment on above: Performed By: #### F T4 #### [facility] [address] [place] [address] Dr. Alesia Meyers EGFR-NON AF AUSTRALIAN >60 Normal >=60 [facility] Comment on above: Performed By: #### F T4 #### [facility] [address] [address] [address] Alesia Meyers Globulin (S) [Mass/Vol] 3.3 g/dL Normal [facility] Comment on above: Performed By: #### F T4 #### [facility] [address] [place] [address] Dr. Alesia Meyers Glucose [Mass/Vol] 104 mg/dL Normal 74-106 [facility] Comment on above: Performed By: #### F T4 #### [facility] [address] [place] [address] Dr. Alesia Meyers Potassium [Moles/Vol] 3.8 mmol/L Normal 3.5-5.1 [facility] Comment on above: Performed By: #### F T4 #### [facility] [address] [place] [address] Dr. Alesia Meyers Protein [Mass/Vol] 6.8 g/dL Normal 6.4-8.2 [facility] Comment on above: Performed By: #### F T4 #### [facility] [address] [place] [address] Dr. Alesia Meyers Sodium [Moles/Vol] 143 mmol/L Normal 136-145 [facility] Comment on above: Performed By: #### F T4 #### [facility] [address] [place] [address] Dr. Alesia Meyers Urea nitrogen [Mass/Vol] 19.0 mg/dL Critically high 7.0-18.0 [facility] Comment on above: Performed By: #### F T4 #### [facility] [address] [place] [address] Dr. Alesia Meyers Urea nitrogen/Creatinine [Mass ratio] 21.6 mg/mg Normal [facility] Comment on above: Performed By: #### F T4 #### [facility] [address] [place] [address] Dr. Alesia Meyers TSHon 10-03-2022 TSH 3.819 uIU/mL Critically high 0.358-3.74 0 [facility] Comment on above: Performed By: #### F T4 #### [facility] [address] [place] [address] Dr. Alesia Meyers ACTH, PLASMAon 09-06-2022 ACTH, Plasma 6.3 pg/mL Critically low 7.2-63.3 [facility] Comment on above: Result Comment: ACTH reference interval for samples collected between 7 and 10 AM. Performed By: #### T SH, CMP, LDH #### [facility] [address] [place] [address] Dr. Alesia Meyers CBC AUTO DIFFon 09-05-2022 BASO # 0.0 103/ul Normal 0.0-0.1 [facility] Comment on above: Performed By: #### T SH, CMP, LDH #### [facility] [address] [place] [address] Dr. Alesia Meyers Basophils/100 WBC (Bld) 0.3 % Normal 0.2-2.0 [facility] Comment on above: Performed By: #### T SH, CMP, LDH #### [facility] [address] [place] [address] Dr. Alesia Meyers EO # 0.1 103/ul Normal 0.0-0.7 [facility] Comment on above: Performed By: #### T SH, CMP, LDH #### [facility] [address] [place] [address] Dr. Alesia Meyers Eosinophils/100 WBC (Bld) 0.6 % Critically low 0.9-7.0 [facility] Comment on above: Performed By: #### T SH, CMP, LDH #### [facility] [address] [place] [address] Dr. Alesia Meyers Erythrocyte distribution width (RBC) [Ratio] 14.4 % Normal 11.0-15.0 [facility] Comment on above: Performed By: #### T SH, CMP, LDH #### [facility] [address] [place] [address] Dr. Alesia Meyers Hematocrit (Bld) [Volume fraction] 41.6 % Normal 36.0-48.0 [facility] Comment on above: Performed By: #### T SH, CMP, LDH #### [facility] [address] [place] [address] Dr. Alesia Meyers Hemoglobin (Bld) [Mass/Vol] 13.7 g/dL Normal 12.0-16.0 [facility] Comment on above: Performed By: #### T SH, CMP, LDH #### [facility] [address] [place] [address] Dr. Alesia Meyers IG # 0.14 10e3/ul Critically high 0.00-0.03 [facility] Comment on above: Performed By: #### T SH, CMP, LDH #### [facility] [address] [place] [address] Dr. Alesia Meyers IG % 1.6 % Critically high 0.0-0.5 [facility] Comment on above: Performed By: #### T SH, CMP, LDH #### [facility] [address] [place] [address] Dr. Alesia Meyers LYMPH # 2.7 103/ul Normal 1.2-3.8 [facility] Comment on above: Performed By: #### T SH, CMP, LDH #### [facility] [address] [place] [address] Dr. Alesia Meyers Lymphocytes/100 WBC (Bld) 30.2 % Normal 20.5-60.0 [facility] Comment on above: Performed By: #### T SH, CMP, LDH #### [facility] [address] [place] [address] Dr. Alesia Meyers MANUAL DIFF REQ NO Normal [facility] Comment on above: Performed By: #### T SH, CMP, LDH #### [facility] [address] [place] [address] Dr. Alesia Meyers MCH (RBC) [Entitic mass] 28.7 pg Normal 26.7-34.0 [facility] Comment on above: Performed By: #### T SH, CMP, LDH #### [facility] [address] [place] [address] Dr. Alesia Meyers MCHC (RBC) [Mass/Vol] 32.9 g/dL Normal 29.9-35.2 [facility] Comment on above: Performed By: #### T SH, CMP, LDH #### [facility] [address] [place] [address] Dr. Alesia Meyers MCV (RBC) [Entitic vol] 87.2 fL Normal 81.0-99.0 [facility] Comment on above: Performed By: #### T SH, CMP, LDH #### [facility] [address] [place] [address] Dr. Alesia Meyers MONO # 1.0 103/ul Critically high 0.3-0.8 [facility] Comment on above: Performed By: #### T SH, CMP, LDH #### [facility] [address] [place] [address] Dr. Alesia Meyers Monocytes/100 WBC (Bld) 10.8 % Normal 1.7-12.0 [facility] Comment on above: Performed By: #### T SH, CMP, LDH #### [facility] [address] [place] [address] Dr. Alesia Meyers NEUT # 5.0 103/ul Normal 1.4-6.5 [facility] Comment on above: Performed By: #### T SH, CMP, LDH #### [facility] [address] [place] [address] Dr. Alesia Meyers Neutrophils/100 WBC (Bld) 56.5 % Normal 43.0-75.0 [facility] Comment on above: Performed By: #### T SH, CMP, LDH #### [facility] [address] [place] [address] Dr. Alesia Meyers Platelet mean volume (Bld) [Entitic vol] 9.1 fL Critically low 9.5-13.5 [facility] Comment on above: Performed By: #### T SH, CMP, LDH #### [facility] [address] [place] [address] Dr. Alesia Meyers PLT 217 103/ul Normal 150-450 [facility] Comment on above: Performed By: #### T SH, CMP, LDH #### [facility] [address] [place] [address] Dr. Alesia Meyers RBC 4.77 106/ul Normal 4.20-5.40 [facility] Comment on above: Performed By: #### T SH, CMP, LDH #### [facility] [address] [place] [address] Dr. Alesia Meyers WBC 8.8 103/ul Normal 4.0-11.0 [facility] Comment on above: Performed By: #### T SH, CMP, LDH #### [facility] [address] [place] [address] Dr. Alesia Meyers FREE T4on 09-05-2022 Free T4 [Mass/Vol] 1.22 ng/dL Normal 0.76-1.46 [facility] Comment on above: Performed By: #### F T4 #### [facility] [address] [place] [address] Dr. Alesia Meyers LDHon 09-05-2022 LDH 212 U/L Normal 81-234 [facility] Comment on above: Performed By: #### T SH, CMP, LDH #### [facility] [address] [place] [address] Dr. Alesia Meyers PROF 14(COMP METB)on 023 Albumin [Mass/Vol] 3.4 g/dL Normal 3.4-5.0 [facility] Comment on above: Performed By: #### T SH, CMP, LDH #### [facility] [address] [place] [address] Dr. Alesia Meyers Albumin/Globulin [Mass ratio] 1.1 {ratio} Normal [facility] Comment on above: Performed By: #### T SH, CMP, LDH #### [facility] [address] [place] [address] Dr. Alesia Meyers ALP [Catalytic activity/Vol] 101 U/L Normal 46-116 [facility] Comment on above: Performed By: #### T SH, CMP, LDH #### [facility] [address] [place] [address] Dr. Alesia Meyers ALT [Catalytic activity/Vol] 40 U/L Normal 14-59 [facility] Comment on above: Performed By: #### T SH, CMP, LDH #### [facility] [address] [address] [address] Alesia Meyers Anion gap [Moles/Vol] 10.7 mmol/L Normal [facility] Comment on above: Performed By: #### T SH, CMP, LDH #### [facility] [address] [place] [address] Dr. Alesia Myeers AST [Catalytic activity/Vol] 25 U/L Normal 15-37 [facility] Comment on above: Performed By: #### T SH, CMP, LDH #### [facility] [address] [place] [address] Dr. Alesia Meyers Bilirubin [Mass/Vol] 0.4 mg/dL Normal 0.2-1.0 [facility] Comment on above: Performed By: #### T SH, CMP, LDH #### [facility] [address] [place] [address] Dr. Alesia Meyers Calcium [Mass/Vol] 8.7 mg/dL Normal 8.5-10.1 [facility] Comment on above: Performed By: #### T SH, CMP, LDH #### [facility] [address] [place] [address] Dr. Alesia Meyers Chloride [Moles/Vol] 105 mmol/L Normal 98-107 [facility] Comment on above: Performed By: #### T SH, CMP, LDH #### [facility] [address] [place] [address] Dr. Alesia Meyers CO2 [Moles/Vol] 30.0 mmol/L Normal 21.0-32.[address] [facility] Comment on above: Performed By: #### T SH, CMP, LDH #### [facility] [address] [address] [address] Alesia Meyers Creatinine [Mass/Vol] 0.83 mg/dL Normal 0.55-1.02 [facility] Comment on above: Performed By: #### T SH, CMP, LDH #### [facility] [address] [place] [address] Dr. Alesia Meyers EGFR-AF AUSTRALIAN >60 Normal >=60 [facility] Comment on above: Performed By: #### T SH, CMP, LDH #### [facility] [address] [address] [address] Alesia Meyers EGFR-NON AF AUSTRALIAN >60 Normal >=60 [facility] Comment on above: Performed By: #### T SH, CMP, LDH #### [facility] [address] [place] [address] Dr. Alesia Meyers Globulin (S) [Mass/Vol] 3.2 g/dL Normal [facility] Comment on above: Performed By: #### T SH, CMP, LDH #### [facility] [address] [place] [address] Dr. Alesia Meyers Glucose [Mass/Vol] 96 mg/dL Normal 74-106 [facility] Comment on above: Performed By: #### T SH, CMP, LDH #### [facility] [address] [place] [address] Dr. Alesia Meyers Potassium [Moles/Vol] 3.7 mmol/L Normal 3.5-5.1 [facility] Comment on above: Performed By: #### T SH, CMP, LDH #### [facility] [address] [place] [address] Dr. Alesia Meyers Protein [Mass/Vol] 6.6 g/dL Normal 6.4-8.2 [facility] Comment on above: Performed By: #### T SH, CMP, LDH #### [facility] [address] [place] [address] Dr. Alesia Meyers Sodium [Moles/Vol] 142 mmol/L Normal 136-145 [facility] Comment on above: Performed By: #### T SH, CMP, LDH #### [facility] [address] [place], [place] [address] Dr. Alesia Meyers Urea nitrogen [Mass/Vol] 29.0 mg/dL Critically high 7.0-18.0 [facility] Comment on above: Performed By: #### T SH, CMP, LDH #### [facility] [address] [place], [place] [address] Dr. Alesia Meyers Urea nitrogen/Creatinine [Mass ratio] 34.9 mg/mg Normal [facility] Comment on above: Performed By: #### T SH, CMP, LDH #### [facility] [address] [place], [place] [address] Dr. Alesia Meyers TSHon 09-05-2022 TSH 3.372 uIU/mL Normal 0.358-3.74 0 [facility] Comment on above: Performed By: #### T SH, CMP, LDH #### [facility] [address] [place], [place] [address] Dr. Alesia Meyers Albumin [Mass/volume] in Ser um or PlasmaOrdered By: Sly Benson on 08-08-2022 Albumin [Mass/Vol] 4.0 g/dL 3.2-5.5 [facility] Basophils Auto (Bld) [#/Vol] Ordered By: Sly Benson on 08-08-2022 Basophils (Bld) [#/Vol] 0.1 10*3/uL 0.0-0.2 [facility] Basophils/100 WBC Auto (Bld) Ordered By: Sly Benson on 08-08-2022 Basophils/100 WBC (Bld) 0.7 % . [facility] Creatinine and Glomerular fi ltration rate.predicted panel (S/P/Bld)Ordered By: Sly Benson on 08-08-2022 Creatinine [Mass/Vol] 0.93 mg/dL 0.44-1.[address] [facility] Direct bilirubin measurement Ordered By: Sly [...] 08-08-2022 MCHC (RBC) [Mass/Vol] 33.6 g/dL 32.0-35.[address] [facility] MCV Auto (RBC) [Entitic vol] Ordered [...] samples collected between 7 and10 AM.Performed at: [email or web address] [id number] Director: Coleman Lacy PhD, Phone: [phone] Estimated GFR () > 60 mL/Min [facility] [...] on 08-08-2022 Protein [Mass/Vol] 7.1 g/dL 6.1-7.9 [facility] RBC Auto (Bld) [#/Vol]Ordere d By: Sly Benson on 08-08-2022 RBC (Bld) [#/Vol] 4.98 10*6/uL 3.60-5.00 [facility] Random cortisol measurementO rdered By: Sly Benson on 08-08-2022 Cortisol [Mass/Vol] 11.8 ug/dL [facility] Comment on above: Reference range: AM [...] Anion gap [Moles/Vol] 11.2 mmol/L 6.0-15.0 [facility] Serum or plasma aspartate am inotransferase measurement (enzymatic activity/volume)Ordered By: Sly Benson on 08-08-2022 AST [Catalytic activity/Vol] 34 U/L 10-42 [facility] Serum or plasma calcium diamond urement (mass/volume)Ordered By: Sly Benson on 08-08-2022 Calcium [Mass/Vol] 9.3 mg/dL 8.2-10.2 [facility] Serum or plasma chloride zora surement (moles/volume)Ordered By: Sly Benson on 08-08-2022 Chloride [Moles/Vol] 102 mmol/L 95-114 [facility] Serum or plasma glucose diamond urement (mass/volume)Ordered By: Sly Benson on 08-08-2022 Glucose [Mass/Vol] 101 mg/dL 70-100 [facility] Comment on above: ADA recommended refe [...] on 08-08-2022 Potassium [Moles/Vol] 3.3 mmol/L 3.5-5.[address] [facility] Serum or plasma sodium measu rement (moles/volume)Ordered By: Sly Benson on 08-08-2022 Sodium [Moles/Vol] 139 mmol/L 136-146 [facility] Serum or plasma total biliru bin measurement (mass/volume)Ordered By: Sly Benson on 08-08-2022 Bilirubin [Mass/Vol] 0.7 mg/dL 0.3-1.2 [facility] Serum or plasma total carbon dioxide measurement (moles/volume)Ordered By: Sly Benson on 08-08-2022 CO2 [Moles/Vol] 29.1 mmol/L 22.0-30.0 [facility] Serum or plasma urea nitroge n measurement (mass/volume)Ordered By: Sly Benson on 08-08-2022 Urea nitrogen [Mass/Vol] 18 mg/dL 9-23 [facility] TSH DL <= 0.005 mIU/L QnOrde red By: Sly Benson on 08-08-2022 TSH Qn 2.80 m[IU]/L 0.45-5.33 [facility] Thyroxine (T4) free [Mass/vo lume] in Serum or PlasmaOrdered By: Sly Benson on 08-08-2022 Free T4 [Mass/Vol] 0.99 ng/dL 0.61-1.12 [facility] WBC Auto (Bld) [#/Vol]Ordere d By: Sly Benson on 08-08-2022 WBC (Bld) [#/Vol] 7.6 10*3/uL 3.8-11.6 [facility] ACTH, PLASMAon 07-22-2022 ACTH, Plasma 29.5 pg/mL Normal 7.2-63.3 [facility] Comment on above: Result Comment: ACTH reference interval for samples collected between 7 and 10 AM. Performed By: #### A CTHP #### [facility] [address] [address] [address] Alesia Meyers CORTISOLon 07-22-2022 Cortisol 10.0 ug/dL Normal [facility] Comment on above: Result Comment: Melvin isol AM 6.2 - 19.4 Cortisol PM 2.3 - 11.9 Performed By: #### T SH, CMP, LDH #### [facility] [address] [place] [address] Dr. Alesia Meyers CBC AUTO DIFFon 07-21-2022 BASO # 0.0 103/ul Normal 0.0-0.1 [facility] Comment on above: Performed By: #### T SH, CMP, LDH #### [facility] [address] [place] [address] Dr. Alesia Meyers Basophils/100 WBC (Bld) 0.6 % Normal 0.2-2.0 [facility] Comment on above: Performed By: #### T SH, CMP, LDH #### [facility] [address] [place] [address] Dr. Alesia Meyers EO # 0.1 103/ul Normal 0.0-0.7 [facility] Comment on above: Performed By: #### T SH, CMP, LDH #### [facility] [address] [place] [address] Dr. Alesia Meyers Eosinophils/100 WBC (Bld) 1.8 % Normal 0.9-7.0 [facility] Comment on above: Performed By: #### T SH, CMP, LDH #### [facility] [address] [place] [address] Dr. Alesia Meyers Erythrocyte distribution width (RBC) [Ratio] 13.2 % Normal 11.0-15.0 [facility] Comment on above: Performed By: #### T SH, CMP, LDH #### [facility] [address] [place] [address] Dr. Alesia Meyers Hematocrit (Bld) [Volume fraction] 40.4 % Normal 36.0-48.0 [facility] Comment on above: Performed By: #### T SH, CMP, LDH #### [facility] [address] [place] [address] Dr. Alesia Meyers Hemoglobin (Bld) [Mass/Vol] 14.1 g/dL Normal 12.0-16.0 [facility] Comment on above: Performed By: #### T SH, CMP, LDH #### [facility] [address] [address] [address] Alesia Meyers IG # 0.03 10e3/ul Normal 0.00-0.03 [facility] Comment on above: Performed By: #### T SH, CMP, LDH #### [facility] [address] [address] [address] Alesia Meyers IG % 0.4 % Normal 0.0-0.5 [facility] Comment on above: Performed By: #### T SH, CMP, LDH #### [facility] [address] [address] [address] Alesia Meyers LYMPH # 1.9 103/ul Normal 1.2-3.8 [facility] Comment on above: Performed By: #### T SH, CMP, LDH #### [facility] [address] [place] [address] Dr. Alesia Meyers Lymphocytes/100 WBC (Bld) 27.5 % Normal 20.5-60.0 [facility] Comment on above: Performed By: #### T SH, CMP, LDH #### [facility] [address] [address] [address] Alesia Meyers MANUAL DIFF REQ NO Normal [facility] Comment on above: Performed By: #### T SH, CMP, LDH #### [facility] [address] [address] [address] Alesia Meyers MCH (RBC) [Entitic mass] 28.4 pg Normal 26.7-34.0 [facility] Comment on above: Performed By: #### T SH, CMP, LDH #### [facility] [address] [address] [address] Alesia Meyers MCHC (RBC) [Mass/Vol] 34.9 g/dL Normal 29.9-35.2 [facility] Comment on above: Performed By: #### T SH, CMP, LDH #### [facility] [address] [address] [address] Alesia Meyers MCV (RBC) [Entitic vol] 81.5 fL Normal 81.0-99.0 [facility] Comment on above: Performed By: #### T SH, CMP, LDH #### [facility] [address] [place] [address] Dr. Alesia Meyers MONO # 0.3 103/ul Normal 0.3-0.8 [facility] Comment on above: Performed By: #### T SH, CMP, LDH #### [facility] [address] [place] [address] Dr. Alesia Meyers Monocytes/100 WBC (Bld) 4.9 % Normal 1.7-12.0 [facility] Comment on above: Performed By: #### T SH, CMP, LDH #### [facility] [address] [place] [address] Dr. Alesia Meyers NEUT # 4.4 103/ul Normal 1.4-6.5 [facility] Comment on above: Performed By: #### T SH, CMP, LDH #### [facility] [address] [place] [address] Dr. Alesia Meyers Neutrophils/100 WBC (Bld) 64.8 % Normal 43.0-75.0 [facility] Comment on above: Performed By: #### T SH, CMP, LDH #### [facility] [address] [place] [address] Dr. Alesia Meyers Platelet mean volume (Bld) [Entitic vol] 8.8 fL Critically low 9.5-13.5 [facility] Comment on above: Performed By: #### T SH, CMP, LDH #### [facility] [address] [place] [address] Dr. Alesia Meyers PLT 214 103/ul Normal 150-450 [facility] Comment on above: Performed By: #### T SH, CMP, LDH #### [facility] [address] [place] [address] Dr. Alesia Meyres RBC 4.96 106/ul Normal 4.20-5.40 [facility] Comment on above: Performed By: #### T SH, CMP, LDH #### [facility] [address] [place] [address] Dr. Alesia Meyers WBC 6.8 103/ul Normal 4.0-11.0 [facility] Comment on above: Performed By: #### T SH, CMP, LDH #### [facility] [address] [place] [address] Dr. Alesia Meyers FREE T4on 07-21-2022 Free T4 [Mass/Vol] 1.06 ng/dL Normal 0.76-1.46 [facility] Comment on above: Performed By: #### T SH, CMP, LDH #### [facility] [address] [place] [address] Dr. Alesia Meyers LDHon 07-21-2022 LDH 243 U/L Critically high 81-234 [facility] Comment on above: Performed By: #### T SH, CMP, LDH #### [facility] [address] [place] [address] Dr. Alesia Meyers LIPASEon 07-21-2022 Lipase [Catalytic activity/Vol] 73.0 U/L Normal 73.0-393.0 [facility] Comment on above: Performed By: #### T SH, CMP, LDH #### [facility] [address] [place] [address] Dr. Alesia Meyers LIVER PROFILEon 07-21-2022 Albumin [Mass/Vol] 3.5 g/dL Normal 3.4-5.0 [facility] Comment on above: Performed By: #### T SH, CMP, LDH #### [facility] [address] [place] [address] Dr. Alesia Meyers Albumin/Globulin [Mass ratio] 0.9 {ratio} Normal [facility] Comment on above: Performed By: #### T SH, CMP, LDH #### [facility] [address] [place] [address] Dr. Alesia Meyers ALP [Catalytic activity/Vol] 130 U/L Critically high 46-116 [facility] Comment on above: Performed By: #### T SH, CMP, LDH #### [facility] [address] [place] [address] Dr. Alesia Meyers ALT [Catalytic activity/Vol] 35 U/L Normal 14-59 [facility] Comment on above: Performed By: #### T SH, CMP, LDH #### [facility] [address] [place] [address] Dr. Alesia Meyers AST [Catalytic activity/Vol] 37 U/L Normal 15-37 [facility] Comment on above: Performed By: #### T SH, CMP, LDH #### [facility] [address] [place] [address] Dr. Alesia Meyers BILI, CONJUGATED 0.1 mg/dL Normal 0.0-0.[address] [facility] Comment on above: Performed By: #### T SH, CMP, LDH #### [facility] [address] [place] [address] Dr. Alesia Meyers Bilirubin [Mass/Vol] 0.4 mg/dL Normal 0.2-1.0 [facility] Comment on above: Performed By: #### T SH, CMP, LDH #### [facility] [address] [place] [address] Dr. Alesia Meyers Globulin (S) [Mass/Vol] 3.8 g/dL Normal [facility] Comment on above: Performed By: #### T SH, CMP, LDH #### [facility] [address] [place] [address] Dr. Alesia Meyers Protein [Mass/Vol] 7.3 g/dL Normal 6.4-8.2 [facility] Comment on above: Performed By: #### T SH, CMP, LDH #### [facility] [address] [place] [address] Dr. Alesia Meyers PROF CHEM 8 (BAS METB)on Anion gap [Moles/Vol] 12.1 mmol/L Normal [facility] Comment on above: Performed By: #### T SH, CMP, LDH #### [facility] [address] [place] [address] Dr. Alesia Meyers Calcium [Mass/Vol] 9.2 mg/dL Normal 8.5-10.1 [facility] Comment on above: Performed By: #### T SH, CMP, LDH #### [facility] [address] [address] [address] Alesia Meyers Chloride [Moles/Vol] 102 mmol/L Normal 98-107 [facility] Comment on above: Performed By: #### T SH, CMP, LDH #### [facility] [address] [address] [address] Alesia Meyers CO2 [Moles/Vol] 30.5 mmol/L Normal 21.0-32.[address] [facility] Comment on above: Performed By: #### T SH, CMP, LDH #### [facility] [address] [address] [address] Alesia Meyers Creatinine [Mass/Vol] 0.87 mg/dL Normal 0.55-1.02 [facility] Comment on above: Performed By: #### T SH, CMP, LDH #### [facility] [address] [place] [address] Dr. Alesia Meyers EGFR-AF AUSTRALIAN >60 Normal >=60 [facility] Comment on above: Performed By: #### T SH, CMP, LDH #### [facility] [address] [address] [address] Alesia Meyers EGFR-NON AF AUSTRALIAN >60 Normal >=60 [facility] Comment on above: Performed By: #### T SH, CMP, LDH #### [facility] [address] [address] [address] Alesia Meyers Glucose [Mass/Vol] 178 mg/dL Critically high 74-106 [facility] Comment on above: Performed By: #### T SH, CMP, LDH #### [facility] [address] [address] [address] Alesia Meyers Potassium [Moles/Vol] 3.6 mmol/L Normal 3.5-5.1 [facility] Comment on above: Performed By: #### T SH, CMP, LDH #### [facility] [address] [address] [address] Alesia Meyers Sodium [Moles/Vol] 141 mmol/L Normal 136-145 [facility] Comment on above: Performed By: #### T SH, CMP, LDH #### [facility] [address] [address] [address] Alesia Meyers Urea nitrogen [Mass/Vol] 16.0 mg/dL Normal 7.0-18.0 [facility] Comment on above: Performed By: #### T SH, CMP, LDH #### [facility] [address] [place] [address] Dr. Alesia Meyers Urea nitrogen/Creatinine [Mass ratio] 18.4 mg/mg Normal [facility] Comment on above: Performed By: #### T SH, CMP, LDH #### [facility] [address] [place] [address] Dr. Alesia Meyers TSHon 07-21-2022 TSH 2.383 uIU/mL Normal 0.358-3.74 0 [facility] Comment on above: Performed By: #### T CURTIS, CMP, LDH #### [facility] [address] [place] [address] Dr. Alesia Meyers ACTH, PLASMAon 06-21-2022 ACTH, Plasma 30.4 pg/mL Normal 7.2-63.3 [facility] Comment on above: Result Comment: ACTH reference interval for samples collected between 7 and 10 AM. Performed By: #### T CURTIS, CMP, LDH #### [facility] [address] [place] [address] Dr. Alesia Meyers CORTISOLon 06-21-2022 Cortisol 16.9 ug/dL Normal [facility] Comment on above: Result Comment: Melvin isol AM 6.2 - 19.4 Cortisol PM 2.3 - 11.9 Performed By: #### C ORTISO #### [facility] [address] [place] [address] Dr. Alesia Meyers CBC AUTO DIFFon 06-20-2022 BASO # 0.0 103/ul Normal 0.0-0.1 [facility] Comment on above: Performed By: #### T SH, CMP, LDH #### [facility] [address] [place] [address] Dr. Alesia Meyers Basophils/100 WBC (Bld) 0.5 % Normal 0.2-2.0 [facility] Comment on above: Performed By: #### T SH, CMP, LDH #### [facility] [address] [place] [address] Dr. Alesia Meyers EO # 0.1 103/ul Normal 0.0-0.7 [facility] Comment on above: Performed By: #### T SH, CMP, LDH #### [facility] [address] [place] [address] Dr. Alesia Meyers Eosinophils/100 WBC (Bld) 2.1 % Normal 0.9-7.0 [facility] Comment on above: Performed By: #### T SH, CMP, LDH #### [facility] [address] [place] [address] Dr. Alesia Meyers Erythrocyte distribution width (RBC) [Ratio] 13.3 % Normal 11.0-15.0 [facility] Comment on above: Performed By: #### T SH, CMP, LDH #### [facility] [address] [place] [address] Dr. Alesia Meyers Hematocrit (Bld) [Volume fraction] 40.2 % Normal 36.0-48.0 [facility] Comment on above: Performed By: #### T SH, CMP, LDH #### [facility] [address] [place] [address] Dr. Alesia Meyers Hemoglobin (Bld) [Mass/Vol] 13.5 g/dL Normal 12.0-16.0 [facility] Comment on above: Performed By: #### T SH, CMP, LDH #### [facility] [address] [place] [address] Dr. Alesia Meyers IG # 0.02 10e3/ul Normal 0.00-0.03 [facility] Comment on above: Performed By: #### T SH, CMP, LDH #### [facility] [address] [place] [address] Dr. Alesia Meyers IG % 0.3 % Normal 0.0-0.5 [facility] Comment on above: Performed By: #### T SH, CMP, LDH #### [facility] [address] [place] [address] Dr. Alesia Meyers LYMPH # 2.3 103/ul Normal 1.2-3.8 [facility] Comment on above: Performed By: #### T SH, CMP, LDH #### [facility] [address] [place] [address] Dr. Alesia Meyers Lymphocytes/100 WBC (Bld) 35.0 % Normal 20.5-60.0 [facility] Comment on above: Performed By: #### T SH, CMP, LDH #### [facility] [address] [place] [address] Dr. Alesia Meyers MANUAL DIFF REQ NO Normal [facility] Comment on above: Performed By: #### T SH, CMP, LDH #### [facility] [address] [place] [address] Dr. Alesia Meyers MCH (RBC) [Entitic mass] 29.3 pg Normal 26.7-34.0 [facility] Comment on above: Performed By: #### T SH, CMP, LDH #### [facility] [address] [place] [address] Dr. Alesia Meyers MCHC (RBC) [Mass/Vol] 33.6 g/dL Normal 29.9-35.2 [facility] Comment on above: Performed By: #### T SH, CMP, LDH #### [facility] [address] [place] [address] Dr. Alesia Meyers MCV (RBC) [Entitic vol] 87.2 fL Normal 81.0-99.0 [facility] Comment on above: Performed By: #### T SH, CMP, LDH #### [facility] [address] [place] [address] Dr. Alesia Meyers MONO # 0.6 103/ul Normal 0.3-0.8 [facility] Comment on above: Performed By: #### T SH, CMP, LDH #### [facility] [address] [place] [address] Dr. Alesia Myeers Monocytes/100 WBC (Bld) 8.8 % Normal 1.7-12.0 [facility] Comment on above: Performed By: #### T SH, CMP, LDH #### [facility] [address] [address] [address] Alesia Meyers NEUT # 3.5 103/ul Normal 1.4-6.5 [facility] Comment on above: Performed By: #### T SH, CMP, LDH #### [facility] [address] [address] [address] Alesia Meyers Neutrophils/100 WBC (Bld) 53.3 % Normal 43.0-75.0 [facility] Comment on above: Performed By: #### T SH, CMP, LDH #### [facility] [address] [address] [address] Alesia Meyers Platelet mean volume (Bld) [Entitic vol] 9.0 fL Critically low 9.5-13.5 [facility] Comment on above: Performed By: #### T SH, CMP, LDH #### [facility] [address] [place] [address] Dr. Alesia Meyers PLT 230 103/ul Normal 150-450 [facility] Comment on above: Performed By: #### T SH, CMP, LDH #### [facility] [address] [place] [address] Dr. Alesia Meyers RBC 4.61 106/ul Normal 4.20-5.40 [facility] Comment on above: Performed By: #### T SH, CMP, LDH #### [facility] [address] [place] [address] Dr. Alesia Meyers WBC 6.6 103/ul Normal 4.0-11.0 [facility] Comment on above: Performed By: #### T SH, CMP, LDH #### [facility] [address] [place] [address] Dr. Alesia Meyers FREE T4on 06-20-2022 Free T4 [Mass/Vol] 1.15 ng/dL Normal 0.76-1.46 [facility] Comment on above: Performed By: #### T SH, CMP, LDH #### [facility] [address] [place] [address] Dr. Alesia Meyers LDHon 06-20-2022 LDH 224 U/L Normal 81-234 [facility] Comment on above: Performed By: #### T SH, CMP, LDH #### [facility] [address] [address] [address] Alesia Meyers LIPASEon 06-20-2022 Lipase [Catalytic activity/Vol] 78.0 U/L Normal 73.0-393.0 [facility] Comment on above: Performed By: #### T SH, CMP, LDH #### [facility] [address] [address] [address] Alesia Meyers LIPID PROFILEon 06-20-2022 CHOL-HDL RATIO NORM SEE BELOW Normal [facility] Comment on above: Result Comment: 3.3 - 4.4 LOW RISK 4.4 - 7.1 AVERAGE RISK 7.1 - 11.0 MODERATE RISK >11.0 HIGH RISK Performed By: #### T SH, CMP, LDH #### [facility] [address] [address] [address] Alesia Meyers Cholesterol [Mass/Vol] 153 mg/dL Normal <=[address] [facility] Comment on above: Performed By: #### T SH, CMP, LDH #### [facility] [address] [address] [address] Alesia Meyers Cholesterol in HDL [Mass/Vol] 80 mg/dL Critically high 40-60 [facility] Comment on above: Performed By: #### T SH, CMP, LDH #### [facility] [address] [address] [address] Alesia Meyers Cholesterol in LDL [Mass/Vol] 52.8 mg/dL Normal [facility] Comment on above: Performed By: #### T SH, CMP, LDH #### [facility] [address] [address] [address] Alesia Meyers Cholesterol.total/Chol esterol in HDL [Mass ratio] 1.9 {ratio} Normal [facility] Comment on above: Performed By: #### T SH, CMP, LDH #### [facility] [address] [address] [address] Alesia Meyers HDL NORMAL > or = 60 mg/dl - LO W CARDIOVASCULAR RISK <40 mg/dl - HIGH CARDIOVASCULAR RISK Normal [facility] Comment on above: Performed By: #### T SH, CMP, LDH #### [facility] [address] [address] [address] Alesia Meyers LDL CALC NORMAL SEE BELOW Normal [facility] Comment on above: Result Comment: <100 mg/dl OPTIMAL 100 - 129 mg/dl NEAR OR ABOVE OPTIMAL 130 - 159 mg/dl BORDERLINE HIGH 160 - 189 mg/dl HIGH >190 mg/dl VERY HIGH Performed By: #### T SH, CMP, LDH #### [facility] [address] [address] [address] Alesia Meyers Triglyceride [Mass/Vol] 101 mg/dL Normal <=150 [facility] Comment on above: Performed By: #### T SH, CMP, LDH #### [facility] [address] [address] [address] Alesia Meyers VLDL CALC 20.2 mg/dL Normal [facility] Comment on above: Performed By: #### T SH, CMP, LDH #### [facility] [address] [address] [address] Alesia Meyers LIVER PROFILEon 06-20-2022 Albumin [Mass/Vol] 3.5 g/dL Normal 3.4-5.0 [facility] Comment on above: Performed By: #### T SH, CMP, LDH #### [facility] [address] [address] [address] Alesia Meyers Albumin/Globulin [Mass ratio] 0.9 {ratio} Normal [facility] Comment on above: Performed By: #### T SH, CMP, LDH #### [facility] [address] [address] [address] Alesia Meyers ALP [Catalytic activity/Vol] 109 U/L Normal 46-116 [facility] Comment on above: Performed By: #### T SH, CMP, LDH #### [facility] [address] [address] [address] Alesia Meyers ALT [Catalytic activity/Vol] 39 U/L Normal 14-59 [facility] Comment on above: Performed By: #### T SH, CMP, LDH #### [facility] [address] [place] [address] Dr. Alesia Meyers AST [Catalytic activity/Vol] 34 U/L Normal 15-37 [facility] Comment on above: Performed By: #### T SH, CMP, LDH #### [facility] [address] [place] [address] Dr. Alesia Meyers BILI, CONJUGATED 0.1 mg/dL Normal 0.0-0.[address] [facility] Comment on above: Performed By: #### T SH, CMP, LDH #### [facility] [address] [place] [address] Dr. Alesia Meyers Bilirubin [Mass/Vol] 0.4 mg/dL Normal 0.2-1.0 [facility] Comment on above: Performed By: #### T SH, CMP, LDH #### [facility] [address] [place] [address] Dr. Alesia Myeers Globulin (S) [Mass/Vol] 3.7 g/dL Normal [facility] Comment on above: Performed By: #### T SH, CMP, LDH #### [facility] [address] [place] [address] Dr. Alesia Meyers Protein [Mass/Vol] 7.2 g/dL Normal 6.4-8.2 [facility] Comment on above: Performed By: #### T SH, CMP, LDH #### [facility] [address] [place] [address] Dr. Alesia Meyers PROF CHEM 8 (BAS METB)on Anion gap [Moles/Vol] 11.4 mmol/L Normal [facility] Comment on above: Performed By: #### T SH, CMP, LDH #### [facility] [address] [place] [address] Dr. Alesia Meyers Calcium [Mass/Vol] 9.1 mg/dL Normal 8.5-10.1 [facility] Comment on above: Performed By: #### T SH, CMP, LDH #### [facility] [address] [place] [address] Dr. Alesia Meyers Chloride [Moles/Vol] 103 mmol/L Normal 98-107 [facility] Comment on above: Performed By: #### T SH, CMP, LDH #### [facility] [address] [address] [address] Alesia Meyers CO2 [Moles/Vol] 31.2 mmol/L Normal 21.0-32.[address] [facility] Comment on above: Performed By: #### T SH, CMP, LDH #### [facility] [address] [address] [address] Alesia Meyers Creatinine [Mass/Vol] 0.90 mg/dL Normal 0.55-1.02 [facility] Comment on above: Performed By: #### T SH, CMP, LDH #### [facility] [address] [place] [address] Dr. Alesia Meyers EGFR-AF AUSTRALIAN >60 Normal >=[address] [facility] Comment on above: Performed By: #### T SH, CMP, LDH #### [facility] [address] [address] [address] Alesia Meyers EGFR-NON AF AUSTRALIAN >60 Normal >=60 [facility] Comment on above: Performed By: #### T SH, CMP, LDH #### [facility] [address] [place] [address] Dr. Alesia Meyers Glucose [Mass/Vol] 105 mg/dL Normal 74-106 [facility] Comment on above: Performed By: #### T SH, CMP, LDH #### [facility] [address] [place] [address] Dr. Alesia Meyers Potassium [Moles/Vol] 3.6 mmol/L Normal 3.5-5.1 [facility] Comment on above: Performed By: #### T SH, CMP, LDH #### [facility] [address] [place] [address] Dr. Alesia Meyers Sodium [Moles/Vol] 142 mmol/L Normal 136-145 [facility] Comment on above: Performed By: #### T SH, CMP, LDH #### [facility] [address] [place] [address] Dr. Alesia Meyers Urea nitrogen [Mass/Vol] 22.0 mg/dL Critically high 7.0-18.0 [facility] Comment on above: Performed By: #### T CURTIS CMP, LDH #### [facility] [address] [address] [address] Alesia Meyers Urea nitrogen/Creatinine [Mass ratio] 24.4 mg/mg Normal [facility] Comment on above: Performed By: #### T CURTIS, CMP, LDH #### [facility] [address] [address] [address] Alesia Meyers TSHon 06-20-2022 TSH 3.302 uIU/mL Normal 0.358-3.74 0 [facility] Comment on above: Performed By: #### T CURTIS CMP, LDH #### [facility] [address] [place] [address] Dr. Alesia Meyers ACTH, PLASMAon 05-31-2022 ACTH, Plasma 28.5 pg/mL Normal 7.2-63.3 [facility] Comment on above: Result Comment: ACTH reference interval for samples collected between 7 and 10 AM. Performed By: #### T CURTIS CMP, LDH #### [facility] [address] [place] [address] Dr. Alesia Meyers CORTISOLon 05-31-2022 Cortisol 17.2 ug/dL Normal [facility] Comment on above: Result Comment: Melvin isol AM 6.2 - 19.4 Cortisol PM 2.3 - 11.9 Performed By: #### T CURTIS CMP, LDH #### [facility] [address] [address] [address] Alesia Meyers CBC AUTO DIFFon 05-30-2022 BASO # 0.0 103/ul Normal 0.0-0.1 [facility] Comment on above: Performed By: #### T CURTIS, CMP, LDH #### [facility] [address] [place] [address] Dr. Alesia Meyers Basophils/100 WBC (Bld) 0.4 % Normal 0.2-2.0 [facility] Comment on above: Performed By: #### T CURTIS, CMP, LDH #### [facility] [address] [place] [address] Dr. Alesia Meyers EO # 0.1 103/ul Normal 0.0-0.7 [facility] Comment on above: Performed By: #### T SH, CMP, LDH #### [facility] [facility] [address] [place] [address] Dr. Alesia Meyers Eosinophils/100 WBC (Bld) 2.1 % Normal 0.9-7.0 [facility] Comment on above: Performed By: #### T SH, CMP, LDH #### [facility] [address] [place] [address] Dr. Alesia Meyers Erythrocyte distribution width (RBC) [Ratio] 12.9 % Normal 11.0-15.0 [facility] Comment on above: Performed By: #### T SH, CMP, LDH #### [facility] [address] [place] [address] Dr. Alesia Meyers Hematocrit (Bld) [Volume fraction] 41.0 % Normal 36.0-48.0 [facility] Comment on above: Performed By: #### T SH, CMP, LDH #### [facility] [address] [place] [address] Dr. Alesia Meyers Hemoglobin (Bld) [Mass/Vol] 13.5 g/dL Normal 12.0-16.0 [facility] Comment on above: Performed By: #### T SH, CMP, LDH #### [facility] [address] [place] [address] Dr. Alesia Meyers IG # 0.02 10e3/ul Normal 0.00-0.03 [facility] Comment on above: Performed By: #### T SH, CMP, LDH #### [facility] [address] [place] [address] Dr. Alesia Meyers IG % 0.3 % Normal 0.0-0.5 [facility] Comment on above: Performed By: #### T SH, CMP, LDH #### [facility] [address] [place] [address] Dr. Alesia Meyers LYMPH # 2.1 103/ul Normal 1.2-3.8 [facility] Comment on above: Performed By: #### T SH, CMP, LDH #### [facility] [address] [place] [address] Dr. Alesia Meyers Lymphocytes/100 WBC (Bld) 30.5 % Normal 20.5-60.0 [facility] Comment on above: Performed By: #### T SH, CMP, LDH #### [facility] [address] [place] [address] Dr. Alesia Meyers MANUAL DIFF REQ NO Normal [facility] Comment on above: Performed By: #### T SH, CMP, LDH #### [facility] [address] [place] [address] Dr. Alesia Meyers MCH (RBC) [Entitic mass] 28.6 pg Normal 26.7-34.0 [facility] Comment on above: Performed By: #### T SH, CMP, LDH #### [facility] [address] [place] [address] Dr. Alesia Meyers MCHC (RBC) [Mass/Vol] 32.9 g/dL Normal 29.9-35.2 [facility] Comment on above: Performed By: #### T SH, CMP, LDH #### [facility] [address] [place] [address] Dr. Alesia Meyers MCV (RBC) [Entitic vol] 86.9 fL Normal 81.0-99.0 [facility] Comment on above: Performed By: #### T SH, CMP, LDH #### [facility] [address] [place] [address] Dr. Alesia Meyers MONO # 0.5 103/ul Normal 0.3-0.8 [facility] Comment on above: Performed By: #### T SH, CMP, LDH #### [facility] [address] [place] [address] Dr. Alesia Meyers Monocytes/100 WBC (Bld) 7.8 % Normal 1.7-12.0 [facility] Comment on above: Performed By: #### T SH, CMP, LDH #### [facility] [address] [place] [address] Dr. Alesia Meyers NEUT # 4.0 103/ul Normal 1.4-6.5 [facility] Comment on above: Performed By: #### T SH, CMP, LDH #### [facility] [address] [place] [address] Dr. Alesia Meyers Neutrophils/100 WBC (Bld) 58.9 % Normal 43.0-75.0 [facility] Comment on above: Performed By: #### T SH, CMP, LDH #### [facility] [address] [place] [address] Dr. Alesia Meyers Platelet mean volume (Bld) [Entitic vol] 9.0 fL Critically low 9.5-13.5 [facility] Comment on above: Performed By: #### T SH, CMP, LDH #### [facility] [address] [place] [address] Dr. Alesia Meyers PLT 224 103/ul Normal 150-450 [facility] Comment on above: Performed By: #### T SH, CMP, LDH #### [facility] [address] [place] [address] Dr. Alesia Meyers RBC 4.72 106/ul Normal 4.20-5.40 [facility] Comment on above: Performed By: #### T SH, CMP, LDH #### [facility] [address] [place] [address] Dr. Alesia Meyers WBC 6.8 103/ul Normal 4.0-11.0 [facility] Comment on above: Performed By: #### T SH, CMP, LDH #### [facility] [address] [place] [address] Dr. Alesia Meyers FREE T4on 05-30-2022 Free T4 [Mass/Vol] 1.19 ng/dL Normal 0.76-1.46 [facility] Comment on above: Performed By: #### T SH, CMP, LDH #### [facility] [address] [place] [address] Dr. Alesia Meyers LDHon 05-30-2022 LDH 231 U/L Normal 81-234 [facility] Comment on above: Performed By: #### F T4 #### [facility] [address] [place] [address] Dr. Alesia Meyers LIPASEon 05-30-2022 Lipase [Catalytic activity/Vol] 76.0 U/L Normal 73.0-393.0 [facility] Comment on above: Performed By: #### F T4 #### [facility] [address] [place] [address] Dr. Alesia Meyers LIVER PROFILEon 05-30-2022 Albumin [Mass/Vol] 3.5 g/dL Normal 3.4-5.0 [facility] Comment on above: Performed By: #### F T4 #### [facility] [address] [place] [address] Dr. Alesia Meyers Albumin/Globulin [Mass ratio] 0.9 {ratio} Normal [facility] Comment on above: Performed By: #### F T4 #### [facility] [address] [place] [address] Dr. Alesia Meyers ALP [Catalytic activity/Vol] 128 U/L Critically high 46-116 [facility] Comment on above: Performed By: #### F T4 #### [facility] [address] [place] [address] Dr. Alesia Meyers ALT [Catalytic activity/Vol] 35 U/L Normal 14-59 [facility] Comment on above: Performed By: #### F T4 #### [facility] [address] [place] [address] Dr. Alesia Meyers AST [Catalytic activity/Vol] 25 U/L Normal 15-37 [facility] Comment on above: Performed By: #### F T4 #### [facility] [address] [place] [address] Dr. Alesia Meyers BILI, CONJUGATED 0.1 mg/dL Normal 0.0-0.[address] [facility] Comment on above: Performed By: #### F T4 #### [facility] [address] [place] [address] Dr. Alesia Meyers Bilirubin [Mass/Vol] 0.4 mg/dL Normal 0.2-1.0 [facility] Comment on above: Performed By: #### F T4 #### [facility] [address] [address] [address] Alesia Meyers Globulin (S) [Mass/Vol] 3.7 g/dL Normal [facility] Comment on above: Performed By: #### F T4 #### [facility] [address] [place] [address] Dr. Alesia Meyers Protein [Mass/Vol] 7.2 g/dL Normal 6.4-8.2 [facility] Comment on above: Performed By: #### F T4 #### [facility] [address] [place] [address] Dr. Alesia Meyers PROF CHEM 8 (BAS METB)on Anion gap [Moles/Vol] 7.3 mmol/L Normal [facility] Comment on above: Performed By: #### F T4 #### [facility] [address] [place] [address] Dr. Alesia Meyers Calcium [Mass/Vol] 9.0 mg/dL Normal 8.5-10.1 [facility] Comment on above: Performed By: #### F T4 #### [facility] [address] [place] [address] Dr. Alesia Meyers Chloride [Moles/Vol] 102 mmol/L Normal 98-107 [facility] Comment on above: Performed By: #### F T4 #### [facility] [address] [place] [address] Dr. Alesia Meyers CO2 [Moles/Vol] 32.3 mmol/L Critically high 21.0-32.0 [facility] Comment on above: Performed By: #### F T4 #### [facility] [address] [place] [address] Dr. Alesia Meyers Creatinine [Mass/Vol] 0.94 mg/dL Normal 0.55-1.02 [facility] Comment on above: Performed By: #### F T4 #### [facility] [address] [place] [address] Dr. Alesia Meyers EGFR-AF AUSTRALIAN >60 Normal >=60 [facility] Comment on above: Performed By: #### F T4 #### [facility] [address] [address] [address] Alesia Meyers EGFR-NON AF AUSTRALIAN 58 mL/min/1.73m2 Critically low >=60 [facility] Comment on above: Performed By: #### F T4 #### [facility] [address] [address] [address] Alesia Meyers Glucose [Mass/Vol] 108 mg/dL Critically high 74-106 [facility] Comment on above: Performed By: #### F T4 #### [facility] [address] [address] [address] Alesia Meyers Potassium [Moles/Vol] 3.6 mmol/L Normal 3.5-5.1 [facility] Comment on above: Performed By: #### F T4 #### [facility] [address] [address] [address] Alesia Meyers Sodium [Moles/Vol] 138 mmol/L Normal 136-145 [facility] Comment on above: Performed By: #### F T4 #### [facility] [address] [address] [address] Alesia Meyers Urea nitrogen [Mass/Vol] 24.0 mg/dL Critically high 7.0-18.0 [facility] Comment on above: Performed By: #### F T4 #### [facility] [address] [address] [address] Alesia Meyers Urea nitrogen/Creatinine [Mass ratio] 25.5 mg/mg Normal [facility] Comment on above: Performed By: #### F T4 #### [facility] [address] [address] [address] Alesia Meyers TSHon 05-30-2022 TSH 2.605 uIU/mL Normal 0.358-3.74 0 [facility] Comment on above: Performed By: #### F T4 #### [facility] [address] [address] [address] Alesia Meyers ACTH, PLASMAon 05-14-2022 ACTH, Plasma 17.0 pg/mL Normal 7.2-63.3 [facility] Comment on above: Result Comment: ACTH reference interval for samples collected between 7 and 10 AM. Performed By: #### A CTHP #### [facility] [address] [place], [place] [address] Dr. Alesia Meyers ACTH, PLASMAon 05-12-2022 ACTH, Plasma WRORD Normal [facility] Comment on above: Result Comment: Test not performed. The required specimen for the test ordered was not received. received refrigerate plasma edta contacted Sheyla at your facility on 05-12-2022 ACTH reference interval for samples collected between 7 and 10 AM. Performed By: #### F T4 #### [facility] [address] [place], [place] [address] Dr. Alesia Meyers Albumin [Mass/volume] in Ser um or PlasmaOrdered By: Sly Benson on 05-12-2022 Albumin [Mass/Vol] 3.5 g/dL 3.2-5.5 [facility] Direct bilirubin measurement Ordered By: Sly Benson on 05-12-2022 Bilirubin.direct [Mass/Vol] mg/dL 0.0-0.4 [facility] Globulin Calc (S) [Mass/Vol] Ordered By: Sly Benson on 05-12-2022 Globulin (S) [Mass/Vol] 3.0 g/dL [facility] - Chemistry and C hemistry - challengeOrdered By: Syl Benson on 05-12-2022 Lipase [Catalytic activity/Vol] 26.0 [...] collected between 7 and10 AM.Performed at: - [facility] [id number] Director: Coleman Lacy PhD, Phone: [phone] Protein [Mass/volume] in Ser um or PlasmaOrdered By: Sly Benson on 05-12-2022 Protein [Mass/Vol] 6.5 g/dL 6.1-7.9 [facility] Random cortisol measurementO rdered By: Sly Benson on 05-12-2022 Cortisol [Mass/Vol] 14.6 ug/dL [facility] Comment on above: Reference range: AM [...] on 05-12-2022 Bilirubin [Mass/Vol] 0.8 mg/dL 0.3-1.2 [facility] Thyroxine (T4) free [Mass/vo lume] in Serum or PlasmaOrdered By: Sly Benson on 05-12-2022 Free T4 [Mass/Vol] 1.17 ng/dL 0.61-1.12 [facility] CORTISOLon 05-11-2022 Cortisol 15.4 ug/dL Normal [facility] Comment on above: Result Comment: Melvin isol AM 6.2 - 19.4 Cortisol PM 2.3 - 11.9 Performed By: #### T SH, CMP, LDH #### [facility] [address] [place] [address] Dr. Alesia Meyers CBC AUTO DIFFon 05-10-2022 BASO # 0.0 103/ul Normal 0.0-0.1 [facility] Comment on above: Performed By: #### C BC #### [facility] [address] [place] [address] Dr. Alesia Meyers Basophils/100 WBC (Bld) 0.3 % Normal 0.2-2.0 [facility] Comment on above: Performed By: #### C BC #### [facility] [address] [place] [address] Dr. Alesia Meyers EO # 0.2 103/ul Normal 0.0-0.7 [facility] Comment on above: Performed By: #### C BC #### [facility] [address] [place] [address] Dr. Alesia Meyers Eosinophils/100 WBC (Bld) 2.5 % Normal 0.9-7.0 [facility] Comment on above: Performed By: #### C BC #### [facility] [address] [place] [address] Dr. Alesia Meyers Erythrocyte distribution width (RBC) [Ratio] 13.2 % Normal 11.0-15.0 [facility] Comment on above: Performed By: #### C BC #### [facility] [address] [place] [address] Dr. Alesia Meyers Hematocrit (Bld) [Volume fraction] 39.1 % Normal 36.0-48.0 [facility] Comment on above: Performed By: #### C BC #### [facility] [address] [place] [address] Dr. Alesia Meyers Hemoglobin (Bld) [Mass/Vol] 12.9 g/dL Normal 12.0-16.0 [facility] Comment on above: Performed By: #### C BC #### [facility] [address] [place] [address] Dr. Alesia Meyers IG # 0.01 10e3/ul Normal 0.00-0.03 [facility] Comment on above: Performed By: #### C BC #### [facility] [address] [place] [address] Dr. Alesia Meyers IG % 0.2 % Normal 0.0-0.5 [facility] Comment on above: Performed By: #### C BC #### [facility] [address] [place] [address] Dr. Alesia Meyers LYMPH # 1.9 103/ul Normal 1.2-3.8 [facility] Comment on above: Performed By: #### C BC #### [facility] [address] [place] [address] Dr. Alesia Meyers Lymphocytes/100 WBC (Bld) 32.2 % Normal 20.5-60.0 [facility] Comment on above: Performed By: #### C BC #### [facility] [address] [place] [address] Dr. Alesia Meyers MANUAL DIFF REQ NO Normal [facility] Comment on above: Performed By: #### C BC #### [facility] [address] [place] [address] Dr. Alesia Meyers MCH (RBC) [Entitic mass] 29.0 pg Normal 26.7-34.0 [facility] Comment on above: Performed By: #### C BC #### [facility] [address] [place] [address] Dr. Alesia Meyers MCHC (RBC) [Mass/Vol] 33.0 g/dL Normal 29.9-35.2 [facility] Comment on above: Performed By: #### C BC #### [facility] [address] [place] [address] Dr. Alesia Meyers MCV (RBC) [Entitic vol] 87.9 fL Normal 81.0-99.0 [facility] Comment on above: Performed By: #### C BC #### [facility] [address] [place] [address] Dr. Alesia Meyers MONO # 0.5 103/ul Normal 0.3-0.8 [facility] Comment on above: Performed By: #### C BC #### [facility] [address] [address] [address] Alesia Meyers Monocytes/100 WBC (Bld) 8.5 % Normal 1.7-12.0 [facility] Comment on above: Performed By: #### C BC #### [facility] [address] [place] [address] Dr. Alesia Meyers NEUT # 3.3 103/ul Normal 1.4-6.5 [facility] Comment on above: Performed By: #### C BC #### [facility] [address] [place] [address] Dr. Alesia Meyers Neutrophils/100 WBC (Bld) 56.3 % Normal 43.0-75.0 [facility] Comment on above: Performed By: #### C BC #### [facility] [address] [place] [address] Dr. Alesia Meyers Platelet mean volume (Bld) [Entitic vol] 9.6 fL Normal 9.5-13.5 [facility] Comment on above: Performed By: #### C BC #### [facility] [address] [place] [address] Dr. Alesia Meyers PLT 210 103/ul Normal 150-450 [facility] Comment on above: Performed By: #### C BC #### [facility] [address] [place] [address] Dr. Alesia Meyers RBC 4.45 106/ul Normal 4.20-5.40 [facility] Comment on above: Performed By: #### C BC #### [facility] [address] [place] [address] Dr. Alesia Meyers WBC 5.9 103/ul Normal 4.0-11.0 [facility] Comment on above: Performed By: #### C BC #### [facility] [address] [place] [address] Dr. Alesia Meyers FREE T4on 05-10-2022 Free T4 [Mass/Vol] 1.19 ng/dL Normal 0.76-1.46 [facility] Comment on above: Performed By: #### F T4 #### [facility] [address] [address] [address] Alesia Meyers LDHon 05-10-2022 LDH 252 U/L Critically high 81-234 [facility] Comment on above: Performed By: #### T SH, CMP, LDH #### [facility] [address] [place] [address] Dr. Alesia Meyers LIPASEon 05-10-2022 Lipase [Catalytic activity/Vol] 70.0 U/L Critically low 73.0-393.0 [facility] Comment on above: Performed By: #### T SH, CMP, LDH #### [facility] [address] [place] [address] Dr. Alesia Meyers LIVER PROFILEon 05-10-2022 Albumin [Mass/Vol] 3.3 g/dL Critically low 3.4-5.0 [facility] Comment on above: Performed By: #### T SH, CMP, LDH #### [facility] [address] [place] [address] Dr. Alesia Meyers Albumin/Globulin [Mass ratio] 0.9 {ratio} Normal [facility] Comment on above: Performed By: #### T SH, CMP, LDH #### [facility] [address] [place] [address] Dr. Alesia Meyers ALP [Catalytic activity/Vol] 129 U/L Critically high 46-116 [facility] Comment on above: Performed By: #### T SH, CMP, LDH #### [facility] [address] [place] [address] Dr. Alesia Meyers ALT [Catalytic activity/Vol] 35 U/L Normal 14-59 [facility] Comment on above: Performed By: #### T SH, CMP, LDH #### [facility] [address] [place] [address] Dr. Alesia Meyers AST [Catalytic activity/Vol] 36 U/L Normal 15-37 [facility] Comment on above: Performed By: #### T SH, CMP, LDH #### [facility] [address] [place] [address] Dr. Alesia Meyers BILI, CONJUGATED 0.1 mg/dL Normal 0.0-0.[address] [facility] Comment on above: Performed By: #### T SH, CMP, LDH #### [facility] [address] [place] [address] Dr. Alesia Meyers Bilirubin [Mass/Vol] 0.4 mg/dL Normal 0.2-1.0 [facility] Comment on above: Performed By: #### T SH, CMP, LDH #### [facility] [address] [place] [address] Dr. Alesia Meyers Globulin (S) [Mass/Vol] 3.7 g/dL Normal [facility] Comment on above: Performed By: #### T SH, CMP, LDH #### [facility] [address] [place] [address] Dr. Aleisa Meyers Protein [Mass/Vol] 7.0 g/dL Normal 6.4-8.2 [facility] Comment on above: Performed By: #### T SH, CMP, LDH #### [facility] [address] [place] [address] Dr. Alesia Meyers PROF CHEM 8 (BAS METB)on Anion gap [Moles/Vol] 11.7 mmol/L Normal [facility] Comment on above: Performed By: #### T SH, CMP, LDH #### [facility] [address] [place] [address] Dr. Alesia Meyers Calcium [Mass/Vol] 8.9 mg/dL Normal 8.5-10.1 [facility] Comment on above: Performed By: #### T SH, CMP, LDH #### [facility] [address] [place] [address] Dr. Alesia Meyers Chloride [Moles/Vol] 104 mmol/L Normal 98-107 [facility] Comment on above: Performed By: #### T SH, CMP, LDH #### [facility] [address] [place] [address] Dr. Alesia Meyers CO2 [Moles/Vol] 29.3 mmol/L Normal 21.0-32.0 [facility] Comment on above: Performed By: #### T SH, CMP, LDH #### [facility] [address] [address] [address] Alesia Meyers Creatinine [Mass/Vol] 0.84 mg/dL Normal 0.55-1.02 [facility] Comment on above: Performed By: #### T SH, CMP, LDH #### [facility] [address] [address] [address] Alesia Meyers EGFR-AF AUSTRALIAN >60 Normal >=[address] [facility] Comment on above: Performed By: #### T SH, CMP, LDH #### [facility] [address] [address] [address] Alesia Meyers EGFR-NON AF AUSTRALIAN >60 Normal >=60 [facility] Comment on above: Performed By: #### T SH, CMP, LDH #### [facility] [address] [address] [address] Alesia Meyers Glucose [Mass/Vol] 109 mg/dL Critically high 74-106 [facility] Comment on above: Performed By: #### T SH, CMP, LDH #### [facility] [address] [address] [address] Alesia Meyers Potassium [Moles/Vol] 4.0 mmol/L Normal 3.5-5.1 [facility] Comment on above: Performed By: #### T SH, CMP, LDH #### [facility] [address] [address] [address] Alesia Meyers Sodium [Moles/Vol] 141 mmol/L Normal 136-145 [facility] Comment on above: Performed By: #### T SH, CMP, LDH #### [facility] [address] [address] [address] Alesia Meyers Urea nitrogen [Mass/Vol] 19.0 mg/dL Critically high 7.0-18.0 [facility] Comment on above: Performed By: #### T SH, CMP, LDH #### [facility] [address] [address] [address] Alesia Meyers Urea nitrogen/Creatinine [Mass ratio] 22.6 mg/mg Normal [facility] Comment on above: Performed By: #### T SH, CMP, LDH #### [facility] [address] [place], [place] [address] Dr. Alesia Meyers TSHon 05-10-2022 TSH 3.114 uIU/mL Normal 0.358-3.74 0 [facility] Comment on above: Performed By: #### T SH, CMP, LDH #### [facility] [address] [place], [place] [address] Dr. Alesia Meyers Activated partial thrombopla stin time (aPTT) in platelet poor plasma by coagulation aOrdered By: Sly Benson on 04-28-2022 aPTT Coag (PPP) [Time] 28.1 s 25.1-36.5 [facility] Albumin [Mass/volume] in Ser um or PlasmaOrdered By: Sly Benson on 04-28-2022 Albumin [Mass/Vol] 3.5 g/dL 3.2-5.5 [facility] Basophils Auto (Bld) [#/Vol] Ordered By: Sly Benson on 04-28-2022 Basophils (Bld) [#/Vol] 0.0 10*3/uL 0.0-0.2 [facility] Basophils/100 WBC Auto (Bld) Ordered By: Sly Benson on 04-28-2022 Basophils/100 WBC (Bld) 0.5 % . [facility] Creatinine and Glomerular fi ltration rate.predicted panel (S/P/Bld)Ordered By: Sly Benson on 04-28-2022 Creatinine [Mass/Vol] 0.84 mg/dL 0.44-1.[address] [facility] Eosinophils Auto (Bld) [#/Vo l]Ordered By: [...] PT Coag (PPP) [Time] 10.6 s 9.0-12.9 [facility] - Hematology and Cell countsOrdered By: Sly Benson on 04-28-2022 Nucleated RBC/100 WBC (Bld) [Ratio] 0.1 % 0-0.5 [facility] Leukocytes [#/volume] in Blo od by Automated countOrdered By: Sly Benson on 04-28-2022 WBC (Bld) [#/Vol] 6.9 10*3/uL 4.5-11.0 [facility] Lymphocytes Auto (Bld) [#/Vo l]Ordered By: [...] 04-28-2022 MCHC (RBC) [Mass/Vol] 33.6 g/dL 32.0-35.[address] [facility] MCV Auto (RBC) [Entitic vol] Ordered [...] titers Nucleosomes, Histones Drug-induced SLE Speckled Sm, DIRECTOR OF RESIDENCE LIFE, SCL-70, SLE,MCTD,PSS (diffuse form), SS-A/SS-B Sjogrens Nucleolar SCL-70, PM-1/SCL High titers Scleroderma, PM/DM Centromere Centromere PSS (limited form) w/Crest syndrome variable Nuclear Dot Sp100,b24-ztuvgm Primary Biliary Cirrhosis Nuclear GP210, Primary Biliary CirrhosisMembrane fish A,B,C Performed at: [email or web address] [employer] [id number] Director: Coleman Lacy PhD, Phone: [phone] Estimated GFR () > 60 mL/Min [facility] [...] on 04-28-2022 Protein [Mass/Vol] 6.4 g/dL 6.1-7.9 [facility] RBC Auto (Bld) [#/Vol]Ordere d By: Sly Benson on 04-28-2022 RBC (Bld) [#/Vol] 4.63 10*6/uL 3.60-5.00 [facility] Serum nuclear antibody titer Ordered By: Sly Benson on 04-28-2022 Nuclear Ab (S) [Titer] Positive . [facility] Comment on above: Negative <1:80 Borde rline 1:80 Positive >1:80 Serum or plasma alanine castro otransferase measurement without P-5'-P (enzymatic activiOrdered By: Sly Benson on 04-28-2022 ALT No additional P-5'-P [Catalytic activity/Vol] 34 U/L 10 [facility] Serum or plasma albumin/glob [...] 04-28-2022 Anion gap [Moles/Vol] 11.9 mmol/L 6.0-15.0 [facility] Serum or plasma aspartate am inotransferase measurement (enzymatic activity/volume)Ordered By: Sly Benson on 04-28-2022 AST [Catalytic activity/Vol] 38 U/L 10 [facility] Serum or plasma calcium diamond urement (mass/volume)Ordered By: Sly Benson on 04-28-2022 Calcium [Mass/Vol] 8.9 mg/dL 8.2-10.2 [facility] Serum or plasma chloride zora surement (moles/volume)Ordered By: Sly Benson on 04-28-2022 Chloride [Moles/Vol] 105 mmol/L 95-114 [facility] Serum or plasma glucose diamond urement (mass/volume)Ordered By: Sly Benson on 04-28-2022 Glucose [Mass/Vol] 110 mg/dL 70-100 [facility] Comment on above: ADA recommended refe rence rangeRandom Glucose Reference Range is dependent on time and content of last meal. Glucose of more than 200 mg/dL in a nonstressed, ambulatory subject supports the diagnosis of Diabetes Mellitus. Serum or plasma potassium me asurement (moles/volume)Ordered By: Sly Benson on 04-28-2022 Potassium [Moles/Vol] 3.5 mmol/L 3.5-5.[address] [facility] Serum or plasma sodium measu rement (moles/volume)Ordered By: Sly Benson on 04-28-2022 Sodium [Moles/Vol] 140 mmol/L 136-146 [facility] Serum or plasma total biliru bin measurement (mass/volume)Ordered By: Sly Benson on 04-28-2022 Bilirubin [Mass/Vol] 0.9 mg/dL 0.3-1.2 [facility] Serum or plasma total carbon dioxide measurement (moles/volume)Ordered By: Sly Benson on 04-28-2022 CO2 [Moles/Vol] 26.6 mmol/L 22.0-30.0 [facility] Serum or plasma urea nitroge n measurement (mass/volume)Ordered By: Sly Benson on 04-28-2022 Urea nitrogen [Mass/Vol] 16 mg/dL 9-23 [facility] Serum speckled pattern antin [...] on 03-26-2022 Creatinine [Mass/Vol] 0.87 mg/dL 0.44-1.[address] [facility] Estimated glomerular filtrat ion rate (GFR) [...] on 10-10-2021 Creatinine [Mass/Vol] 0.91 mg/dL 0.44-1.[address] [facility] Estimated glomerular filtrat ion rate (GFR) [...] 09/20/2021 Submitting Physician: ALEX TRAMMELL MD Location: [facility] Other External # FINAL [...] M.D. Electronically Signed Out By SURAJ MELGAR MD/[facility] By the signature on this report, [...] mm. Inked and embedded in toto. 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 She also has not followed up with dermatology since the time of surgery. She has requested a new dermatology referral as a result. [ ] I will follow up her biopsy results from today to determine next steps. [ ] The patient will be referred to Serena Oroczo in dermatology for total-body skin examinations and [...] a prior mole. The patient moved from [place] 8 years ago and has not established [...] reports that she has not seen her manager imaging since prior to the cancer treatment. As [...] swelling fro (more content not included)... Normal [facility] COMPREHENSIVE METABOLIC PANE Walter 10-23-2021 Albumin [Mass/Vol] 4.1 g/dL Normal 3.6-5.1 [facility] Comment on above: Performed By: #### 7 600, [id number] #### [facility] of [address], [address] [place] [address] Special Effects Designer: Chadwick Suárez MD Albumin/Globulin [Mass ratio] 1.4 {ratio} Normal 1.0-2.5 [facility] Comment on above: Performed By: #### 7 600, [id number] #### [facility] of [address], [address] [place] [address] Special Effects Designer: Chadwick Suárez MD ALP [Catalytic activity/Vol] 121 U/L Normal 37-153 [facility] Comment on above: Performed By: #### 7 600, [id number] #### [facility] of [address], [address] [place] [address] Special Effects Designer: Chadwick Suárez MD ALT [Catalytic activity/Vol] 18 U/L Normal 6-29 [facility] Comment on above: Performed By: #### 7 600, [id number] #### [facility] of [address], [address] [place] [address] Special Effects Designer: Chadwick Suárez MD AST [Catalytic activity/Vol] 19 U/L Normal 10-35 [facility] Comment on above: Performed By: #### 7 600, [id number] #### [facility] of [address], [address] [place] [address] Special Effects Designer: Chadwick Suárez MD Bilirubin [Mass/Vol] 0.5 mg/dL Normal 0.2-1.2 [facility] Comment on above: Performed By: #### 7 600, 28228 #### [facility] of [place] [address] Special Effects Designer: Chadwick Suárez MD BUN/CREATININE RATIO NOT APPLICABLE Normal 6-22 [facility] Comment on above: Performed By: #### 7 600, 40056 #### [facility] of [address], [address] [place] [address] Special Effects Designer: Chadwick Suárez MD Calcium [Mass/Vol] 9.4 mg/dL Normal 8.6-10.4 [facility] Comment on above: Performed By: #### 7 600, 85048 #### [facility] [address], [address] [place] [address] Special Effects Designer: Chawdick Suárez MD Chloride [Moles/Vol] 106 mmol/L Normal 98-110 [facility] Comment on above: Performed By: #### 7 600, 36468 #### [facility] of [address], [address] [place] [address] Special Effects Designer: Chadwick Suárez MD CO2 [Moles/Vol] 31 mmol/L Normal 20-32 [facility] Comment on above: Performed By: #### 7 600, 44356 #### [facility] of [place] [address] Special Effects Designer: Chadwick Suárez MD Creatinine [Mass/Vol] 0.78 mg/dL Normal 0.60-0.[address] [facility] Comment on above: Result Comment: For patients >49 years of age, the reference limit for Creatinine is approximately 13% higher for people identified as -Stateless. Performed By: #### 7 600, 16339 #### [facility] [address], [address] [place] [address] Special Effects Designer: Chadwick Suárez MD eGFR NON-AFR. AUSTRALIAN 75 mL/min/1.73m2 Normal > OR = 60 [facility] Comment on above: Performed By: #### 7 600, 83334 #### [facility] of [address], [address] [place] [address] Special Effects Designer: Chadwick Suárez MD GFR/1.73 sq M.predicted among blacks MDRD (S/P/Bld) [Vol rate/Area] 87 mL/min/{1.73_m2} Normal > OR = 60 [facility] Comment on above: Performed By: #### 7 600, 42768 #### [facility] of [address], [address] [place] [address] Special Effects Designer: Chadwick Suárez MD Globulin (S) [Mass/Vol] 2.9 g/dL Normal 1.9-3.7 [facility] Comment on above: Performed By: #### 7 600, 82634 #### [facility] [address], [address] [place] [address] Special Effects Designer: Chadwick Suárez MD Glucose [Mass/Vol] 105 mg/dL High 65-99 [facility] Comment on above: Result Comment: Fasting reference interval For someone without known diabetes, a glucose value between 100 and 125 mg/dL is consistent with prediabetes and should be confirmed with a follow-up test. Performed By: #### 7 600, 48955 #### [facility] [address], [address] [place] [address] Special Effects Designer: Chadwick Suárez MD Potassium [Moles/Vol] 4.9 mmol/L Normal 3.5-5.[address] [facility] Comment on above: Performed By: #### 7 600, 82704 #### [facility] of [address], [address] [place] [address] Special Effects Designer: Chadwick Suárez MD Protein [Mass/Vol] 7.0 g/dL Normal 6.1-8.1 [facility] Comment on above: Performed By: #### 7 600, 43579 #### [facility] [address], [address] [place] [address] Special Effects Designer: Chadwick Suárez MD Sodium [Moles/Vol] 143 mmol/L Normal 135-146 [facility] Comment on above: Performed By: #### 7 600, 45655 #### [facility] [address], [address] [place] [address] Special Effects Designer: Chadwick Suárez MD Urea nitrogen [Mass/Vol] 18 mg/dL Normal 7-25 [facility] Comment on above: Performed By: #### 7 600, 79692 #### [facility] [address], [address] [place] [address] Special Effects Designer: Chadwick Suárez MD LIPID PANEL, [facility] 10-2 Cholesterol [Mass/Vol] 235 mg/dL High <200 [facility] Comment on above: Order Comment: FASTI NG:YES AN UPDATE OR CORRECTION HAS BEEN MADE TO NAME FASTING: YES Performed By: #### 7 600, 85958 #### [facility] [address], [address] [place] [address] Special Effects Designer: Chadwick Suárez MD Cholesterol in HDL [Mass/Vol] 83 mg/dL Normal > OR = 50 [facility] Comment on above: Order Comment: FASTI NG:YES AN UPDATE OR CORRECTION HAS BEEN MADE TO NAME FASTING: YES Performed By: #### 7 600, 20616 #### [facility] [address], [address] [place] [address] Special Effects Designer: Chadwick Suárez MD Cholesterol in LDL [Mass/Vol] [...] LDL-C. Enrique BOUDREAUX et al. ROCCO. 2013;310(19): 1211-1949 (http://education.Buy buy tea.Buy buy tea/faq/MIV503) Performed By: #### 7 600, 74301 #### [facility] [address], [address] [place] [address] Special Effects Designer: Chadwick Suárez MD Cholesterol.total/Chol esterol in HDL [Mass ratio] 2.8 {ratio} Normal <5.0 [facility] Comment on above: Order Comment: FASTI NG:YES AN UPDATE OR CORRECTION HAS BEEN MADE TO NAME FASTING: YES Performed By: #### 7 600, 86900 #### [facility] [address], [address] [place] [address] Special Effects Designer: Chadwick Suárez MD NON HDL CHOLESTEROL 152 [...] therapeutic option. Performed By: #### 7 600, 86163 #### [facility] [address], [address] [place], [place] [address] Special Effects Designer: Chadwick Suárez MD Triglyceride [Mass/Vol] 132 mg/dL Normal <150 [facility] Comment on above: Order Comment: AUNG NG:YES AN UPDATE OR CORRECTION HAS BEEN MADE TO NAME FASTING: YES Performed By: #### 7 600, 16917 #### [facility] [address], [address] [place] [address] Special Effects Designer: Chadwick Suárez MD Office Visit (Oncology Surge [...] was referred to Dr. Francisca Rose at [facility] for medical oncology consultation for her [...] a prior mole. The patient moved from [place] 8 years ago and has not established [...] Gauze to (more content not included)... [facility] Office Visit (Oncology Surge ry)on 12-25-2020 [...] be referred to Dr. Francisca Rose at [facility] for medical oncology consultation. Her care [...] a prior mole. The patient moved from [place] 8 years ago and has not established [...] Bacteria identified Cx Nom (Unsp spec) Abnormal ET-Lrknycv-K [facility] Work Phone: MISCELLANEOUS CULT./SM.BACT. on 12-04-2020 MISCELLANEOUS CULT./SM.BACT. PATIENT: THERESA LUU LOCATION: [facility]#: [id number] : 47 AGE: SEX: F ORDERED BY: [...] DOSE DEPENDENT NS=NONSUSCEPTIBLE X=REPORTED IN ERROR Normal [facility] Comment on above: Performed By: #### M [facility] #### [facility] [address] [place] [address] Office Visit (Oncology Surge ry)on 12-04-2020 Follow-up [...] a prior mole. The patient moved from [place] 8 years ago and has not established [...] a prior mole. The patient moved from [place] 8 years ago and has not established [...] Malignant jerson (more content not included)... Normal [facility] Dermatopathologyon 1 Dermatopathology [facility] Dermatopathology Laboratory [address] [place] [id number] DERMATOPATHOLOGY REPORT Name:THERESA LUU. Rec #. [id number] Location: [facility] Date of Procedure: 11/16/2020 [...] by the Department of Pathology at [facility]. The FDA does not require this test [...] LEFT LOWER LEG MELANOMA: SPECIMEN Procedure: Re-excision [place] node(s) biopsy Specimen Laterality: Left TUMOR Tumor [...] of Lymph Nodes Examined: 3 Number of [place] Nodes Examined: 2 PATHOLOGIC STAGE CLASSIFICATION (pTNM, [...] ADDITIONAL FINDINGS Additional Findings: None ADDITIONAL TESTING OPTICAL LABORATORY MECHANIC BLOCKS: Normal Block: D1 - 5, 7, 18, 20 - 23 Tumor Block: D6, 8 - 17 Electronically Signed Out By SURAJ MELGAR MD/[facility] By the signature on this report, the individual or group listed as making the Final Interpretation/Diagnosis certifies that they have reviewed this case. Clinical History: A: [place] lymph n (more content not included)... Normal [facility] Comment on above: Performed By: #### D #### Dermatopathology LYMPH GLANDon 11-16-2020 LYMPH GLAND Patient Name: THERESA LUU STUDY: LYMPH GLAND; 11/16/2020 10:05 am INDICATION: Malignant melanoma of left lower leg. COMPARISON: PET-CT 10/31/2020. ACCESSION NUMBER(S): [id number] ORDERING CLINICIAN: ALEX TRAMMELL TECHNIQUE: DIVISION OF NUCLEAR MEDICINE RADIONUCLIDE SENTINEL LYMPH NODE LYMPHOSCINTIGRAPHY A total of 970 microcuries of Tc-99m tilmanocept (LymphoseSmartMove) was injected intradermally in a circumferential pattern [...] review. Electronically signed by: COCO ARCHIBALD MD [facility] No Panel Informationon 11-16 NL-Mxwwrnr-L [facility] Work Phone: Order Reconciliationon 11-16 Order Reconciliation Page 1 Discharge Reconciliation Document Reconciliation Type: Discharge requested on behalf of Alex Trammell (Physician) done by Alex Trammell () Discharge - Reconciliation: 16-Nov-2020 13:16 by: Alex [...] every 6 hours, As Needed pain Normal [facility] Patient Profile - Preop v2on 11-16-2020 Patient Profile - Preop v2 Profile: Initial Info: How to be Addressedpamela(1) Spoken Language PreferredEnglish (1) Source of Informationpatient Are you currently using the Personal Electronic Health Record or Tradier Stated Reason for Admissionmelanoma on my lower left leg Primary Contact Name and Numberdonna-cousin Other Contact Names and Numberssue-friend Patient Belongingsremains with patient; patient educated regarding responsibility for personal items Patient Belongings Remaining with Patientclothing Medications Brought to Hospitalno General Health: Weight in kg90 kilogram(s) Weight in gca999.4 pound(s) Weight Methodactual (measured) Scale Typechair Height in feet5 feet Height in inches2 inch(es) Height in cm157.4 centimeter(s) Height Methodstated BMI (kg/m2)36.327 square meter Patient or Family Member Reaction to Anesthesiano previous reaction Blood Avoidance/Restrictionsnone Previous Transfusion Reactionno Health Mgmt: Symptoms/Conditions Managed at Homecancer Cancer Symptoms/Conditionsmelanom a Barriers to Managing Healthnone Relationship/Environ: Living Arrangementshouse Lives Withalone Resource/Environmental Concernsnone [place] [facility] Anticipated at Transitionnone Substance: Current or [...] HIGH RISK. Are there any cultural, spiritual, mormon practices/values/needs that are important for us to [...] Profile - Preop v2 14-Nov-2020 09:30 Normal [facility] Preop Checkliston 11-16-2020 Preop Checklist Preop Checklist: Preop Checklist: Arrival [id number] Arrival Time06:04 NPO [id number] 22:00 ID Band Onyes Allergy Bandno known [...] 16-Nov-2020 06:31 by Deepa Zazueta (GABY) Normal [facility] Radiologyon 11-16-2020 NM Lymph node Views Normal [facility] Work Phone: BASIC METABOLIC PANELon 05-0 Anion gap [Moles/Vol] 10 mmol/L Normal 10 - 20 [facility] Comment on above: Performed By: #### B MP #### [facility] [address] [place] [address] Calcium [Mass/Vol] 9.2 mg/dL Normal 8.6 - 10.3 [facility] Comment on above: Performed By: #### B MP #### [facility] [address] [place] [address] Chloride [Moles/Vol] 105 mmol/L Normal 98 - 107 [facility] Comment on above: Performed By: #### B MP #### [facility] [address] [place] [address] Creatinine [Mass/Vol] 0.81 mg/dL Normal 0.50 - 1.05 [facility] Comment on above: Performed By: #### B MP #### [address] [place] [address] GFR- AM. >60 Normal >60 [facility] Comment on above: Result Comment: CALC ULATIONS OF ESTIMATED GFR ARE PERFORMED USING THE MDRD STUDY EQUATION FOR THE IDMS-TRACEABLE CREATININE METHODS. CLIN CHEM 2007;53:766-72 Performed By: #### B MP #### [address] [place] [address] GFR-NON AM. >60 Normal >60 [facility] Comment on above: Performed By: #### B MP #### [address] [address] Glucose [Mass/Vol] 95 mg/dL Normal 74 - 99 [facility] Comment on above: Performed By: #### B MP #### [address] [place] [address] HCO3 (Bld) [Moles/Vol] 30 mmol/L Normal 21 - 32 [facility] Comment on above: Performed By: #### B MP #### [address] [address] Potassium [Moles/Vol] 4.1 mmol/L Normal 3.5 - 5.3 [facility] Comment on above: Performed By: #### B MP #### [address] [address] Sodium [Moles/Vol] 141 mmol/L Normal 136 - 145 [facility] Comment on above: Performed By: #### B MP #### [address] [address] Urea nitrogen [Mass/Vol] 16 mg/dL Normal 6 - 23 [facility] Comment on above: Performed By: #### B MP #### [address] [address] CORONAVIRUS 2019, SCREEN ASY MPTOMATICon 11-14-2020 SARS-CoV-2 (COVID-19) RNA BENOIT+probe Ql (Unsp spec) Not detected Normal Not Detected [facility] Comment on above: Result Comment: . [...] this test method. Fact sheet for providers: https://www.fda.gov/media/631314/download Fact sheet for patients: https://www.fda.gov/media/228625/download This test has received FDA Emergency Use Authorization [EUA] and has been verified by [facility] ([facility]). This test is only authorized for the duration of time that circumstances exist to justify the authorization of the emergency use of in vitro diagnostic tests for the detection of SARS-CoV-2 virus and/or diagnosis of COVID-19 infection under section 564(b)(1) of the Act, 21 U.S.C. 360bbb-3(b)(1), unless the authorization is terminated or revoked sooner. [facility] is certified under CLIA-88 as qualified to perform high complexity testing. Testing is performed in the [facility] laboratories located at [address] [place] [address]. Performed By: #### C OVSC #### [place] [address] Lab Specimen Source Nasal, Nasopharyngeal Normal [facility] Comment on above: Performed By: #### C OVSC #### [place] [address] Coronavirus 2019 RNA by PCR, Screening Asymptomticon 11-14-2020 Coronavirus 2019 RNA by PCR, Screening Asymptomtic Not detected Normal See Below [facility] Work Phone: Comment on above: SOURCE: [...] this test method. Fact sheet for providers: https://www.fda.gov/media/286468/downloadFact sheet for patients: https://www.fda.gov/media/802026/downloadThis test has received FDA Emergency Use Authorization [EUA] and has been verified by [facility] ([facility]). This test is only authorized for the duration of time that circumstances exist to justify the authorization of the emergency use of in vitro diagnostic tests for the detection of SARS-CoV-2 virus and/or diagnosis of COVID-19 infection under section 564(b)(1) of the Act, 21 U.S.C. 360bbb-3(b)(1), unless the authorization is terminated or revoked sooner. [facility] is certified under CLIA-88 as qualified to perform high complexity testing. Testing is performed in the [facility] laboratories located at [address] [place] [address]. Covid 19 Resultson 1 SARS-CoV-2 (COVID-19) RNA [...] by the [facility] to see if any of [...] or Naproxen (Aleve) can also be used. Whsv-ndn-rpnnygv cough and cold medicines can be used according to the instructions on the package. Some edgh-umj-vzluyza medicines also contain acetaminophen. Make sure you [...] water are not available, use alcohol-based hand director center. Avoid touching your eyes, nose, and mouth [...] 24 sivakumar (more content not included)... Normal [facility] Laboratory - Chemistry and C hemistry - challengeon 11-14-2020 Anion gap [Moles/Vol] 10 mmol/L 10 - 20 MG- Surgery-S [facility] Work Phone: Calcium [Mass/Vol] 9.2 mg/dL 8.6 - 10.3 [facility] Work Phone: Chloride [Moles/Vol] 105 mmol/L 98 - 107 [facility] Work Phone: CO2 [Moles/Vol] 30 mmol/L 21 - 32 MG-Surger y[facility] Work Phone: Creatinine [Mass/Vol] 0.81 mg/dL See Below [facility]- Surgery-S [facility] Work Phone: Comment on above: Reference Range: 0.5 0 - 1.05 Glucose [Mass/Vol] 95 mg/dL 74 - 99 [facility]-Pedro nancyS [facility] Work Phone: [phone] Potassium [Moles/Vol] 4.1 mmol/L 3.5 - 5.3 [facility]- Surgery-S [facility] Work Phone: 51 Sodium [Moles/Vol] 141 mmol/L 136 - 145 MG-Pedro nancyS [facility] Work Phone: 51 Urea nitrogen [Mass/Vol] 16 mg/dL 6 - 23 VA-Kpkblyd-U [facility] Work Phone: 51 No Panel Informationon 11-14 >60 >60 UN-Unrhclz-N [facility] Work Phone: [phone] Comment on above: CALCULATIONS OF DENIS MATED GFR ARE PERFORMED USING THE MDRD STUDY EQUATION FOR THE IDMS-TRACEABLE CREATININE METHODS. CLIN CHEM 2007;53:766-72 [email or web address] 1:8080 /[email or web address]/[email or web address].dll?R etrieveTestByDateTime?Rachel shcTI=[id number]&Date=11-14&Time=09%3a51%3a40%3a 00&TestType=ECG&Site=12&Ou tputType=PDF&Ext=PDF GS-Hscexzs-M [facility] Work Phone: 51 Normal sinus rhythm MG-Burton rgeryS [facility] Work Phone: 51 Normal ZL-Iwnlovv-Y [facility] Work Phone: [phone] GF-Iuielpd-Q [facility] Work Phone: [phone] EM-Xjzofxe-P [facility] Work Phone: [phone] WT-Bekzhvu-J [facility] Work Phone: [phone] QN-Iuozbsx-A [facility] Work Phone: [phone] LS-Vqptoyz-T [facility] Work Phone: 14 1 AW-Markcef-K [facility] Work Phone: 51 1 RU-Bifhlfs-Z [facility] Work Phone: 50 1 HU-Jdtzfpe-A [facility] Work Phone: 62 1 SF-Agoaomq-M [facility] Work Phone: [phone] JO-Pqydmfq-J [facility] Work Phone: [phone] YJ-Ugilbji-O [facility] Work Phone: 76 1 VC-Auebhzc-K [facility] Work Phone: [phone] KB-Plvfjpk-Y [facility] Work Phone: [phone] DY-Elfeanf-A [facility] Work Phone: [facility] PET/CT MELANOMA INITIAL STAGING Patient Name: [...] leg biopsy-proven melanoma. COMPARISON: None. ACCESSION NUMBER(S): [id number] ORDERING CLINICIAN: ALEX TRAMMELL TECHNIQUE: DIVISION OF [...] CODING: Initial Treatment Strategy (PI) CALIBRATION: Dose Pblamnysk-qz-Kwze Interval (mins): 72 min Mediastinal bloodpool SUV [...] stated. This study was interpreted at [facility]. Electronically signed by: IVELISSE OVALLE MD [facility] (Oncology Surge ry)on 10-23-2020 [...] a prior mole. The patient moved from [place] 8 years ago and has not established [...] chronic medical conditions Social history: Lives in [place] independently. Has 2 dogs. Walks regularly. Denies tobacco, alcohol, and drug use. Has extended family in [place] [facility] Allergies: No known drug allergies ROS: [...] (more content not included)... Normal [facility] Surgical Pathology Depar tmenton 10-16-2020 [facility] Surgical Pathology Department Name THERESA LUU Pathologist: SHER DIAS MD Date of Procedure: 10/16/2020 Date Received: 10/31/2020 Date Reported 11/02/2020 Submitting Physician: SURAJ MELGAR MD Location: [facility] FINAL DIAGNOSIS RESULTS OF [...] extraction and testing are performed in the [facility]ational Laboratory ([facility]) located at [address] [place] [address] (CLIA License #[id number], CAP #[id number]). This laboratory developed test was developed and its analytical performance characteristics have been determined by [facility]. This test has not been cleared or approved by the FDA; however, the FDA has determined that such approval is not necessary. The [facility] is certified under the Clinical Laboratory [...] as m (more content not included)... Normal [facility] Comment on above: Performed By: #### U [facility] #### [facility] Surgical Pathology Department [id number] Pending sale to [facility] [id number] Vital Signs Date Time Vital Sign Value Performing Clinician Facility 01-22-2024 09:19-0400 Body temperature 98 [degF] DO [facility] Work Phone: [facility] 01-22-2024 09:19-0400 Body weight 85.72 kg DO [employer] Work Phone: [facility] 01-22-2024 09:19-0400 Diastolic blood pressure 64 mm[Hg] DO [employer] Work Phone: [facility] 01-22-2024 09:19-0400 Heart rate 80 /min DO [employer] Work Phone: [facility] 01-22-2024 09:19-0400 Respiratory rate 20 /min DO [employer] Work Phone: [facility] 01-22-2024 09:19-0400 SaO2% (BldA) [Mass fraction] 96 % DO [employer] Work Phone: [facility] 01-22-2024 09:19-0400 Systolic blood pressure 134 mm[Hg] DO [employer] Work Phone: [facility] 12-25-2023 13:25-0400 Body temperature 97.8 [degF] DO [employer] Work Phone: [facility] 12-25-2023 13:25-0400 Diastolic blood pressure 72 mm[Hg] DO Yoni Furlong Work Phone: [facility] 12-25-2023 13:25-0400 Heart rate 99 /min DO Yoni Furlong Work Phone: [facility] 12-25-2023 13:25-0400 Respiratory rate 16 /min DO Yoni Mortezalong Work Phone: [facility] 12-25-2023 13:25-0400 SaO2% (BldA) [Mass fraction] 95 % DO Yoni Mortezalong Work Phone: [facility] 12-25-2023 13:25-0400 Systolic blood pressure 124 mm[Hg] DO Yoni Mortezalong Work Phone: [facility] 09-30-2023 16:29-0400 Body height 157.5 cm Virginiabrenda Mixon ASSISTANT OFFSET PRESS OPERATOR-BOOM CRANE OPERATOR Work Phone: [facility] 09-30-2023 16:29-0400 Body mass index (BMI) [Ratio] 34.42 kg/m2 Virginiabrenda Mixon ASSISTANT OFFSET PRESS OPERATOR-BOOM CRANE OPERATOR Work Phone: [facility] 09-30-2023 16:29-0400 Body temperature 99.19 [degF] Virginia Apurva ASSISTANT OFFSET PRESS OPERATOR-BOOM CRANE OPERATOR Work Phone: [facility] 09-30-2023 16:29-0400 Body weight 85.37 kg Virginia Apurva ASSISTANT OFFSET PRESS OPERATOR-BOOM CRANE OPERATOR Work Phone: [facility] 09-30-2023 16:29-0400 Diastolic blood pressure 60 mm[Hg] Virginia Apurva ASSISTANT OFFSET PRESS OPERATOR-BOOM CRANE OPERATOR Work Phone: [facility] 09-30-2023 16:29-0400 Heart rate 94 /min Virginiabrenda Mixon ASSISTANT OFFSET PRESS OPERATOR-BOOM CRANE OPERATOR Work Phone: [facility] [employer] [facility] 09-30-2023 16:29-0400 SaO2% (BldA) [Mass fraction] 96 % 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 APRN-BOOM CRANE OPERATOR Work Phone: [facility] [employer] [facility] 09-30-2023 16:29-0400 Systolic blood pressure 120 mm[Hg] 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 APRN-BOOM CRANE OPERATOR Work Phone: [facility] [employer] [facility] 09-15-2023 16:00-0500 Body height 157.5 cm Yoni Furlong DO Work Phone: [facility] [employer] 09-15-2023 16:00-0500 Body mass index (BMI) [Ratio] 34.84 kg/m2 Yoni Furlong DO Work Phone: [facility] [employer] [facility] 09-15-2023 16:00-0500 Body temperature 98.91 [degF] Yoni Furlong DO Work Phone: [facility] [employer] [facility] 09-15-2023 16:00-0500 Body weight 86.41 kg [facility] 09-15-2023 16:00-0500 Diastolic blood pressure 50 mm[Hg] Yoni Furlong DO Work Phone: [facility] [employer] 09-15-2023 16:00-0500 Heart rate 80 /min Yoni Furlong DO Work Phone: [facility] [employer] [facility] 09-15-2023 16:00-0500 SaO2% (BldA) [Mass fraction] 96 % Yoni Furlong DO Work Phone: [facility] [employer] [facility] 09-15-2023 16:00-0500 Systolic blood pressure 130 mm[Hg] Yoni Furlong DO Work Phone: [facility] [employer] [facility] 08-07-2023 11:24-0500 Body temperature 98.2 [degF] DO Yoni Evolitalong Work Phone: [facility] 08-07-2023 11:24-0500 [...] 94 % DO Yoni Furlong Work Phone: [facility] 03-06-2023 13:49-0400 Systolic blood pressure 139 mm[Hg] DO Yoni Furlong Work Phone: [facility] 01-27-2023 10:30-0400 Body temperature 97.5 [degF] Kimber Lacy Other [employer] [facility] [employer] Other 01-27-2023 10:30-0400 Body weight 87.54 kg Kimber Lacy Other [employer] Other 01-27-2023 10:30-0400 Diastolic blood pressure 80 mm[Hg] Kimber Lacy Other [employer] Other 01-27-2023 10:30-0400 SaO2% (BldA) [Mass fraction] 96 % Kimber Layc Other [facility] [employer] Other 01-27-2023 10:30-0400 Systolic blood pressure 159 mm[Hg] Kimber Lacy Other [employer] [facility] [employer] Other 01-27-2023 10:23-0400 Body temperature 97.5 [degF] DO Yoni Evolitalong Work Phone: [facility] 01-27-2023 10:23-0400 Body weight 88.49 kg DO Yoni Furlong Work Phone: [facility] 01-27-2023 10:23-0400 Diastolic blood pressure 80 mm[Hg] DO Yoni Evolitalong Work Phone: [facility] 01-27-2023 10:23-0400 [...] 08:26-0400 Body temperature 97.8 [degF] DO Yoni Evolitalong Work Phone: [facility] 12-30-2022 08:26-0400 Body weight 88.45 kg DO Yoni Furlong Work Phone: [facility] 12-30-2022 08:26-0400 Diastolic blood pressure 81 mm[Hg] DO Yoni Furlong Work Phone: [facility] [...] 97.4 [degF] DO Yoni Furlong Work Phone: [facility] [...] 04-28-2022 09:07-0400 Heart rate 93 /min DO Ynoi Furlong Work Phone: [facility] 04-28-2022 [...] % DO Sly Benson II Work Phone: [facility] 10-07-2021 08:13-0400 Systolic blood pressure 144 mm[Hg] DO Sly Benson II Work Phone: [facility] 10-07-2021 08:05-0400 Body height 160.02 cm DO Sly Benson II Work Phone: [facility] 09-17-2021 15:09-0500 Body temperature 98.6 [degF] Yoni Proloedmar Work Phone: [facility] 4604 Work Phone: 09-17-2021 15:09-0500 Body weight 89.54 kg Yoni Prolong Work Phone: IC-Fprhpcs-[facility]koadxo[facility] 4602 Work Phone: 09-17-2021 15:09-0500 Diastolic blood pressure 81 mm[Hg] Yoni Prolong Work Phone: NI-Uxfijke-[facility]bb[facility] 4601 Work Phone: 09-17-2021 15:09-0500 Heart rate 101 /min Yoni Prolong Work Phone: QS-Mbystaa-[facility]inp[facility] 4602 Work Phone: 09-17-2021 15:09-0500 Respiratory rate 18 /min Yoni Prolong Work Phone: AX-Jewfwdw-CmwinpsSan[facility] 4602 Work Phone: 09-17-2021 15:09-0500 Systolic blood pressure 158 mm[Hg] Yoni Prolong Work Phone: ZR-Gdyzoea-NisdaezSan[facility] 460 Work Phone: 01-22-2021 14:42-0400 Body weight 88.03 kg Yoni G Furlong Work Phone: YN-Cxwqwha-Pbimqzhp 150 Work Phone: 01-22-2021 14:42-0400 Diastolic blood pressure 84 mm[Hg] Yoni G Furlong Work Phone: HF-Bzasmiz-Dnvxkrqw 150 Work Phone: 01-22-2021 14:42-0400 Heart rate 102 /min Yoni G Furlong Work Phone: AE-Nrzrljr-Mouinkzi 150 Work Phone: 01-22-2021 14:42-0400 SaO2% (BldA) [Mass fraction] 95 % Yoni G Furlong Work Phone: SP-Lvifxta-Vcaqrpfk 150 Work Phone: 01-22-2021 14:42-0400 Systolic blood pressure 149 mm[Hg] Yoni G Furlong Work Phone: HL-Amurnjj-Qflvumiq 150 Work Phone: 12-25-2020 15:23-0400 Body weight 89.36 kg Yoni G Furlong Work Phone: [facility] Work Phone: 12-25-2020 15:23-0400 Diastolic blood pressure 85 mm[Hg] Yoni G Furlong Work Phone: [facility] Work Phone: 12-25-2020 15:23-0400 Heart rate 105 /min Yoni G Furlong Work Phone: [facility] Work Phone: 12-25-2020 15:23-0400 SaO2% (BldA) [Mass fraction] 95 % Yoni G Furlong Work Phone: [facility] Work Phone: 12-25-2020 15:23-0400 Systolic blood pressure 163 mm[Hg] Yoni Prolong Work Phone: [facility] Work Phone: 12-04-2020 15:07-0400 Diastolic blood pressure 84 mm[Hg] Yoni Prolong Work Phone: [facility] Work Phone: 12-04-2020 15:07-0400 Heart rate 111 /min Yoni Prolong Work Phone: [facility] Work Phone: 12-04-2020 15:07-0400 SaO2% (BldA) [Mass fraction] 98 % Yoni Prolong Work Phone: [facility] Work Phone: 12-04-2020 15:07-0400 Systolic blood pressure 154 mm[Hg] Yoni Prolong Work Phone: [facility] Work Phone: 11-27-2020 15:10-0400 Body weight 90.72 kg Yoni Prolong Work Phone: [facility] Work Phone: 11-27-2020 15:10-0400 Diastolic blood pressure 79 mm[Hg] Yoni Prolong Work Phone: [facility] Work Phone: 11-27-2020 15:10-0400 Heart rate 98 /min Yoni Neo Furlong Work Phone: [facility] Work Phone: 11-27-2020 15:10-0400 SaO2% (BldA) [Mass fraction] 96 % Yoni Muller Work Phone: [facility] Work Phone: 11-27-2020 15:10-0400 Systolic blood pressure 138 mm[Hg] Yoni Muller Work Phone: [facility] Work Phone: [phone] 23:00-0500 >na< Quentin Fitzpatrick Dept. of Eleazar matology Encounters Encounter Date Encounter Type Care Provider Facility Start: 04-15-2024 ambulatory Yoni Prolong Facility :[facility] Start: 01-22-2024 Registered Recurring DO Yoni Hollowayng Work Phone: [facility] [place] [facility] Work Phone: Start: 01-22-2024 End: 01-22-2024 ambulatory DO Yoni Muller Work Phone: [facility] Work Phone: Start: 01-22-2024 End: 01-22-2024 Patient encounter procedure DO Yoni Muller Work Phone: [facility] Work Phone: Start: 09-30-2023 End: 09-30-2023 Office outpatient visit 15 minutes 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 APRN-BOOM CRANE OPERATOR Work Phone: [facility] [...] type; Malignant melanoma of left lower leg ([facility]); Class 2 severe obesity due to excess calories with serious comorbidity and body mass index (BMI) of 35.0 to 35.9 in adult Start: 09-08-2023 Refill Yoni Holloway ng DO Work Phone: [facility] Comment on above: Essential (primary) hypertension Start: 08-07-2023 Registered Recurring DO Yoni Furlong [facility] Work Phone: Start: 08-07-2023 End: 08-07-2023 Patient encounter procedure DO Yoni Furlong Work Phone: [facility] Amb[facility] Work Phone: Start: 08-07-2023 End: 08-07-2023 ambulatory DO Yoni Furlong Work Phone: [facility] Work Phone: Start: 03-06-2023 End: 03-06-2023 ambulatory DO Yoni Furlong Work Phone: [facility] Work Phone: Start: 03-06-2023 End: 03-06-2023 Registered Recurring DO Yoni Furlong Work Phone: [facility] Work Phone: Start: 01-27-2023 Office outpatient vi sit 25 minutes Kimber Lacy [facility] Start: 01-27-2023 End: 01-27-2023 ambulatory DO Yoni Furlong Work Phone: [facility] Work Phone: Start: 01-27-2023 End: 01-27-2023 Registered Recurring DO Yoni Furlong Work Phone: [facility] Work Phone: Start: 12-30-2022 End: 12-30-2022 ambulatory DO Yoni Furlong Work Phone: [facility] Work Phone: Start: 12-30-2022 End: 12-30-2022 Registered Recurring DO Yoni Furlong Work Phone: [facility] Work Phone: Start: 12-30-2022 End: 12-30-2022 ambulatory DO Yoni Furlong Work Phone: [facility] Work Phone: Start: 12-30-2022 End: 12-30-2022 Registered Recurring DO Yoni Furlong Work Phone: [facility] Work Phone: Start: 10-03-2022 End: 10-04-2022 ambulatory SLY BENSON Facility:[facility]1 Start: 09-08-2022 End: 09-08-2022 ambulatory DO Yoni Furlong Work Phone: [facility] Work Phone: Start: 09-08-2022 End: 09-08-2022 Registered Recurring DO Yoni Furlong Work Phone: [facility] Work Phone: Start: 09-05-2022 End: 09-06-[address] YONI MULLER Facility:[facility]1 Start: 08-11-2022 End: 08-11-2022 ambulatory DO Yoni Furlong Work Phone: [facility] Work Phone: Start: 08-11-2022 End: 08-11-2022 Registered Recurring DO Yoni Furlong Work Phone: [facility] Work Phone: Start: 07-21-2022 End: 07-22-2022 ambulatory SLY BENSON Facility:[facility]1 Start: 06-23-2022 End: 06-23-2022 ambulatory DO Yoni Furlong Work Phone: [facility] Work Phone: Start: 06-23-2022 End: 06-23-2022 Registered Recurring DO Yoni Furlong [facility] [place] Start: 06-23-2022 End: 06-23-2022 ambulatory DO Yoni Furlong Work Phone: [facility] Work Phone: Start: 06-23-2022 End: 06-23-2022 Registered Recurring DO Yoni Furlong [facility]: [facility] [place] Start: 06-20-2022 End: 06-21-[address] YONI MULLER Facility:[facility]1 Start: 06-02-2022 End: 06-02-2022 ambulatory DO Yoni Furlong Work Phone: [facility] Work Phone: Start: 06-02-2022 End: 06-02-2022 Registered Recurring DO Yoni Furlong [facility]: [facility] [place] Start: 05-30-2022 End: 05-31-2022 ambulatory SLY BENSON Facility:[facility]1 Start: 05-13-2022 End: 05-14-2022 ambulatory SLY BENSON Facility:[facility] Start: 05-10-2022 End: 05-11-2022 ambulatory SLY BENSON Facility:[facility] Start: 05-02-2022 End: 05-02-2022 ambulatory DO Yoni Furlong Work Phone: [facility] Work Phone: Start: 05-02-2022 End: 05-02-2022 Registered Recurring DO Yoni Furlong [facility]: [facility] Start: 04-28-2022 End: 04-28-2022 Admission to same day surgery center DO Yoni Furlong Work Phone: [facility] [place] Start: 04-28-2022 End: 04-28-2022 ambulatory DO Yoni Furlong Work Phone: [facility] Work Phone: Start: 04-21-2022 End: 04-21-2022 ambulatory DO Yoni Furlong Work Phone: [facility] Work Phone: Start: 04-21-2022 End: 04-21-2022 Registered Recurring DO Yoni Furlong Work Phone: [facility] Start: 03-26-2022 End: 03-26-2022 Patient encounter procedure DO Yoni Furlong Work Phone: [facility] [place] Start: 10-25-2021 End: 10-25-2021 Registered Recurring MD Alex Trammell Work Phone: [facility] Start: 10-10-2021 End: 10-10-2021 Patient encounter procedure DO Sly Xiaoicz II Work Phone: [facility] [place] Start: 10-07-2021 End: 10-07-2021 Registered Recurring DO Sly Adamowicz II Work Phone: [facility] Start: 10-07-2021 Registered Recurring DO Clinton law Adamowicz II Work Phone: [facility] Start: 09-24-2021 AUDIT Yoni hyatt Work Phone: HR[facility]ktkfqw[facility] 4604 Work Phone: Start: 09-23-2021 Chart Update Yoni hyatt Work Phone: [facility] Work Phone: Start: 09-17-2021 Office outpatient ne w 30 minutes Yoni Muller Work Phone: DZ-Jhhaoil-Vjhjorb 4600 Work Phone: Start: 09-17-2021 Office outpatient vi sit 15 minutes Yoni Hollowayng Work Phone: KS-Sgtnjyl-Taact Main Work Phone: Start: 01-22-2021 Office outpatient vi sit 15 minutes Yoni Hollowayng Work Phone: OD-Xjfyswv-Jkhybibw 150 Work Phone: Start: 01-12-2021 AUDIT Yoni Holloway ng Work Phone: [facility] Work Phone: Start: 12-25-2020 Office outpatient vi sit 25 minutes Yoni Muller Work Phone: JM-Kztkcyl-Cghvzapa 150 Work Phone: Start: 12-25-2020 Patient encounter procedure Yoni Muller Work Phone: [facility] Work Phone: Start: 12-17-2020 AUDIT Yoni Holloway ng Work Phone: QS[facility]ir[facility] Work Phone: Start: 12-04-2020 FUV, Provider: Alex Trammell, Status: Pen, Time: 3:00 PM Yoni Muller Work Phone: WA[facility]ootix[facility] Work Phone: Start: 12-04-2020 Patient encounter procedure Yoni Muller Work Phone: [facility] SM Work Phone: Start: 11-27-2020 Postop follow up vis it related to original px Yoni Muller Work Phone: [facility] Work Phone: Start: 11-27-2020 Quentin Fitzpatrick Dep t. of Dermatology Start: 11-13-2020 Quentin Fitzpatrick [facility] t. of Dermatology Start: 10-23-2020 Quentin Fitzpatrick [facility] t. of Dermatology Procedures Date Procedure Procedure Detail Performing Clinician Start: 01-20-2024 Computed tomography of abdomen and pelvis with contrast DO Yoni Furlong Work Phone: Start: 01-20-2024 CT of thorax with contrast DO Yoni Furlong Work Phone: Start: 09-30-2023 Adult depression screening assessment 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 Work Phone: Start: 09-15-2023 Adult depression screening [...] Adult BMI Screening Adult BMI Screen ing [facility] Start: 09-29-2024 [facility] Start: 09-29-2024 Fall Risk Screening Fall Risk Screen [facility] Start: 09-29-2024 Tobacco Screening Tobacco Screening [facility] Start: 09-14-2024 Adult BMI Screening Adult BMI Screen ing [facility] Start: 09-14-2024 Depression Screening Depression Scre ing [facility] Start: 09-14-2024 Fall Risk Screening Fall Risk Screen ing [facility] Start: 09-14-2024 Tobacco Screening Tobacco Screening [facility] Start: 03-17-2024 End: 03-17-2024 Patient encounter procedure 03/17/2024 4:15 PM EDT Office [facility] [address] [place] [address] Yoni Muller DO [address], [place] [address] [facility] Start: 02-07-2024 Administration of va ricella zoster vaccine Zoster (Shingles) Vaccine (1 of 2) [facility] Comment on above: Postponed from 10/02 (Patient Refused) Start: 02-07-2024 Adult BMI Screening Adult BMI Screen ing [facility] Start: 02-07-2024 Depression Screening Depression Scre ening [facility] Start: 02-07-2024 DTaP,Tdap and Td Vac cines (1 - Tdap) DTaP,Tdap and Td Vaccines (1 - Tdap) [facility] Comment on above: Postponed from 10/02 (Patient Refused) Start: 02-07-2024 Tobacco Screening Tobacco Screening [facility] Start: 01-22-2024 [facility] Start: 01-11-2024 Medicare Annual Well ness Visit Medicare Annual Wellness Visit [facility] Comment on above: Postponed from 10/02 (Patient Refused) Start: 12-25-2023 [facility] Start: 12-25-2023 [facility] Start: 11-27-2023 [facility] Start: 10-30-2023 [facility] Start: 10-30-2023 [facility] Start: 10-11-2023 Influenza vaccination Influenza Vacc ine [facility] Comment on above: Postponed from 03/13 (Patient Refused) Start: 2023 [facility] Start: 2023 [facility] Start: 09-15-2023 End: 09-15-2023 Patient encounter procedure 09/15/2023 4:00 PM EST Office Visit [facility] [address] [place] [address] Yoni Muller, DO [address] [place] [address] [facility] Start: 09-04-2023 [facility] Start: 08-07-2023 [facility] Start: 08-07-2023 [facility] Start: 08-06-2023 End: 08-07-2023 [facility] Start: 08-06-2023 Adrenocorticotropic hormone measurement [facility] Start: 07-14-2023 [facility] Start: 07-14-2023 [facility] Start: 06-17-2023 Fall Risk Screening Fall Risk Screen [facility] Start: 06-16-2023 [facility] Start: 05-19-2023 [facility] Start: 04-21-2023 [facility] Start: 03-24-2023 [facility] Start: 03-13-2023 COVID-19 Vaccine ( season) COVID-19 Vaccine () [facility] Start: 03-13-2023 Influenza vaccination Influenza Vacc ine [facility] Start: 02-24-2023 [facility] Start: 01-27-2023 [...] Alex Trammell, Status: Pen, Time: 3:00 PM FJ-Rjxzvon-Wicpvaoy 150 Work Phone: Start: 01-22-2021 FUV, Provider: Alex Trammell, Status: Pen, Time: 3:00 PM FUV, Provider: Alex Trammell, Status: Pen, Time: 3:00 PM RC-Ubvfqyr-Aazkapyz 150 Work Phone: Start: 12-25-2020 FUV, Provider: Alex Trammell, Status: Pen, Time: 3:00 PM FUV, Provider: Alex Trammell, Status: Pen, Time: 3:00 PM [facility] Work Phone: Start: 1963 Adult BMI Follow Up Plan Adult BMI Follow Up Plan [facility] [employer] Adrenocorticotropic hormone measurement [facility] Adrenocorticotropic hormone measurement [facility] Work Phone: Adrenocorticotropic hormone measurement [facility] [...] Automated count [facility] Blood chemistry [facility] Blood chemistry [facility] Comprehensive metabo lic 1999 [...] Cortisol [Mass/volum e] in Serum or Plasma [facility] Work Phone: Cortisol [Mass/volum e] [...] Health System CT Chest W contrast IV [facility] CT Chest W contrast IV [facility] CT Chest W contrast IV [facility] CT Chest W contrast IV [facility] CT Chest W contrast IV [facility] Eosinophils/100 leuk ocytes in Blood by Automated count [facility] Erythrocyte distribu tion width [Ratio] by Automated count [facility] Erythrocyte sediment ation rate by Photometric method [facility] Erythrocytes [#/volu me] in Blood [facility] Hematocrit [Volume F raction] of Blood [facility] Hemoglobin [Mass/vol ume] in Blood [facility] Hepatic function panel [facility] Hepatic function panel [facility] Homogenous nuclear A b pattern [Titer] in Serum [facility] Work Phone: Lactate dehydrogenas e [...] Health System Nuclear Ab [Titer] in Serum [facility] Work Phone: Nucleated erythrocyt es [Presence] in Blood by Automated count [facility] Patient Education [facility] Work Phone: Platelet mean volume [...] (T4) free [Mass/volume] in Serum or Plasma [facility] Work Phone: Thyroxine (T4) free [Mass/volume] in Serum or Plasma [facility] Thyroxine (T4) free [Mass/volume] in Serum or Plasma [facility] Thyroxine (T4) free [Mass/volume] in Serum or Plasma [facility] Thyroxine (T4) free [Mass/volume] in Serum or Plasma [facility] Ultrasonic guidance for needle biopsy [facility] Immunizations Immunization Date Immunization Notes Care Provider Fa [facility] 1945 pneumococcal conjuga te vaccine, 7 valent Quentin Fitzpatrick Dept[facility] of Dermatology Payers Date Payer Category Payer Self-pay [id number] 2022 Medicare [id number] 1959 Private Health Insurance [id number] 1945 Unknown [id number] 1945 Unknown [id number] [id number] 1945 Unknown [id number] 2..[id number] 1945 Unknown [id number] [id number] 1946 Unknown [id number] 1945 Unknown [id number] [id number] 1945 Unknown [id number] [id number] 1945 Unknown [id number] [id number] Unknown Unknown HCAP/HFA/FAP Active [id number] Unknown [id number] [id number] Unknown [id number] Social History Date Type Detail Facility Start: 10-23-2020 Dept. of Dermatology Start: 1945 Sex Assigned At Female [facility] Start: 10-07-2021 End: 03-06-2023 Tobacco smoking status NHIS Never smoked tobacco (finding) [facility] Start: 06-17-2022 End: 09-30-2023 Sex Assigned At [employer] Other Start: 06-17-2022 Tobacco use and exposure Smokeless tobacco non-user [facility] Start: 02-06-2023 End: 09-30-2023 Alcohol intake Current drinker of alcohol (finding) [facility] Start: 06-17-2022 End: 09-30-2023 History of Social function [facility] Do you belong to any clubs or organizations such as congregation groups, unions, fraternal or athletic groups, or school groups? Yes [facility] Are you now , , , , never or living with a partner? [facility] How often to you hav e a drink containing alcohol? Monthly or less [facility] How many standard dr inks containing alcohol do you have on a typical day? 1 or 2 [facility] How often do you hav e 6 or more drinks on 1 occasion? Never [facility] How hard is it for y ou to pay for the very basics like food, housing, medical care, and heating Not hard at all [facility] Do you feel stress - tense, restless, nervous, or anxious, or unable to sleep at night because your mind is troubled all the time - these days [OSQ] Only a little [facility] Start: 06-17-2022 Alcohol Comment rarely [facility] [employer] Start: 1945 Sex [facility]igned At [facility] Has the electric, [employer] s, oil, or water company threatened to shut off services in your home in past 12Mo No [facility] Goals Date Patient Goal Desired Activity /State Clinical Notes 12-04-2012 to 09-30-2023 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, ANTOINETTE-[employer]OM CRANE OPERATOR - 09/30/2023 4:00 PM Madonna Muller DO - 09/15/2023 4:00 PM EST Note Date & Type Note Facility 09-30-2023 History of Present illness Narrative [address] [facility] [address] Patient: Theresa Luu Date of : 1945 [...] next 48 hrs so she went to [facility] ER on 09/23/23. ER placed a [...] list. Past Medical History: Diagnosis Date Cancer ([facility]) Hyperlipidemia Hypertension Obesity Past Surgical History: Procedure [...] to see ortho. IRMA MARTINES APRN-CNP 10/04/23 1236 documented in this encounter [facility]2023 History of Present illness Narrative Subjective [...] hypertension with chronic kidney disease, stage III ([facility]) - Basic Metabolic Panel; Future - CBC; Future - Magnesium; Future - Parathyroid Hormone, intact; Future - Phosphorus; Future - Vitamin D 25 hydroxy; Future - Uric acid; Future Her blood pressure is essentially at goal. Her stage 3 chronic kidney disease was discussed. She is using Advil abnw-jvj-twzquoi and I recommended she use Tylenol instead to help protect her kidneys. She was given a written note with these instructions. Check chronic kidney disease labs. Hyperlipidemia, unspecified hyperlipidemia type - Lipid panel; Future Check lipids. Malignant melanoma of left lower leg ([facility]) Follow up with specialists as [...] and high cholesterol. documented in this encounter [facility] 02-13-2023 Progress note Note Date/Time January 27, 2023 3:58pm [facility] [address] [place] [address] Progress Note Signed Patient: Theresa Luu MR#: [id number] : 1945 Acct:[id number] Age/Sex: 77 / F Adm Date: 3 Loc: Room: Type: [facility] RCR Attending Dr: Sly Benson II DO Copies to: ~ Date of Service: 01/27/2023 Subjective History of Present Illness HPI: Madison is seen during immunotherapy today and we continue our discussion of goals of care/advance care planning. She has reviewed the making choices booklet and is planning to meet with an city attorney to complete financial POA and business [...] signed by DO Efren Burris> 02/13/23 1508 [facility] Work Phone: 1(558) 910-452407-18-2023 Evaluation note* Encounter Date Diagnosis Assessment Notes [...] of the order given to the patient. [employer] Other 06-20-2023 Progress note Author Senia Montez [facility] December 30, 2022 11:06am Note Date/Time December 30, 2022 8:35 am [facility] [place] [address] Hem/Onc Follow Up Note - OP Signed Patient: Theresa Luu MR#: [id number] : 1945 Acct:[id number] Age/Sex: 77 / F Type: REG RCR [...] leg melanoma removed by Dr. Trammell at [facility] in November 162020 with sentinel node biopsy [...] LE edema. Lymph node is much smaller. 12/12/22 Labs are good. tolerating ipi nivo well [...] for coordination of care (as documented) and yfmw-nn-phkm counseling of patient and/or family. [facility] - Medical History Medical History: Medical History [...] <Electronically signed by ANTOINETTE Montez> 12/30/22 1106 [facility] Work Phone: 1(487) 873-923504-24-2023 Progress note Author Sly Benson [facility] November 03, 2022 10:27am Note Date/Time November 03, 2022 10: 22am [facility] [place] [address] Hem/Onc Follow Up Note - OP Signed Patient: Theresa Luu MR#: [id number] : 1945 Acct:[id number] Age/Sex: 77 / F Type: REG RCR [...] Up Instructions: cont monthly nivolumab. 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 cbc, cmp, tsh monthly. [...] leg melanoma removed by Dr. Trammell at [facility] in November 162020 with sentinel node biopsy [...] for coordination of care (as documented) and sxzd-ws-csib counseling of patient and/or family. [facility] - Medical History Medical History: Medical History [...] % (Auto) 59.6, Lymph % (Auto) 26.5, [place] % (Auto) 11.2, Eos % (Auto) 1.8, Baso % (Auto) 0.9, Nucleat RBC Rel Count 0.0, Neut # (Auto) 4.0, Lymph # (Auto) 1.8, [place] # (Auto) 0.8, Eos # (Auto) 0.1, [...] by Sly Benson II, DO> 11/03/22 1027 [facility] Work Phone: 1(320) 489-644303-27-2023 Progress note Author Zenobia Parker [facility] October 06, 2022 11:42am Note Date/Time October 06, 2022 11: 28am [facility] [place] [id number] Hem/Onc Follow Up Note - OP Signed Patient: Theresa Luu MR#: [id number] : 1945 Acct:[id number] Age/Sex: 77 / F Type: REG RCR [...] leg melanoma removed by Dr. Trammell at [facility] in November 162020 with sentinel node biopsy [...] 10 point review of systems is negative. [facility] - Medical History Medical History: Medical History [...] for coordination of care (as documented) and ojdz-ms-xrez counseling of patient and/or family. Dictated By: Zenobia Parker APRN DD/ 1127 Signed By: <Electronically signed by ANTOINETTE Parker> 10/06/22 1142 [facility] Work Phone: 1(922) 966-455403-20-2023 Progress note Author Bebeto Pandya [facility] September 29, 2022 1:11pm Note Date/Time September 29, 2022 9:4 5am [facility] [place] [address] Rad Onc Follow Up Note - OP Signed Patient: Theresa Luu MR#: [id number] : 1945 Acct:[id number] Age/Sex: 76 / F Type: REG RCR [...] a left lower leg melanoma removed at [facility] in November 162020 with sentinel node biopsy [...] get her first maintenance dose of the [place] on August 11, [address]. [address] [...] signed by Bebeto Pandya MD> 09/29/22 1311 [facility] Work Phone: 1(818) 512-187902-27-2023 Progress note Author Sly Benson [facility] September 08, 2022 10:18am Note Date/Time September 08, 2022 10:08am [facility] [place] [id number] Hem/Onc Follow Up Note - OP Signed Patient: Theresa Luu MR#: [id number] : 1945 Acct:[id number] Age/Sex: 76 / F Type: REG RCR [...] leg melanoma removed by Dr. Trammell at [facility] in November 162020 with sentinel node biopsy [...] for coordination of care (as documented) and wckv-na-ymgj counseling of patient and/or family. [facility] - Medical History Medical History: Medical History [...] by Sly Benson II, DO> 09/08/22 1018 [facility] Work Phone: 1([phone]) 424-575001-31-2023 Consult note Author Bebeto Pandya [facility] August 12, 2022 1:39pm Note Date/Time August 12, 2022 8 :51am [facility] at [address] [address] Rad Onc Consult Note - OP Signed Patient: Theresa Luu MR#: [id number] : 1945 Acct:[id number] Age/Sex: 76 / F Type: REG RCR Copies to: DO Alex Acuña MD, II, DO~ Assessment & Plan (1) Inguinal adenopathy Plan: CT simulation-plan for palliative radiation to the left inguinal gdjzxzbmodpzkeb90 Luis in 5 fractions delivered every other [...] a left lower leg melanoma removed at [facility] in November 162020 with sentinel node biopsy [...] get her first maintenance dose of the [place] on August 11, 2022. Her repeat CT [...] ibuprofen. She denies any other pelvic complaints. [facility] - Medical History Medical History: Medical History [...] signed by Bebeto Pandya MD> 08/12/22 1339 [facility] Work Phone: [phone]) 783-273701-30-2023 Progress note Author Sly Benson [facility] August 11, 2022 11:03am Note Date/Time August 11, 2022 1 0:48am [facility] [place] [address] Hem/Onc Follow Up Note - OP Signed Patient: Theresa Luu MR#: [id number] : 1945 Acct:[id number] Age/Sex: 76 / F Type: REG RCR [...] leg melanoma removed by Dr. Trammell at [facility] in November 162020 with sentinel node biopsy [...] for coordination of care (as documented) and ydfa-lj-feph counseling of patient and/or family. [facility] - Medical History Medical History: Medical History [...] % (Auto) 58.6, Lymph % (Auto) 29.6, [place] % (Auto) 9.0, Eos % (Auto) 2.1, Baso % (Auto) 0.7, Nucleat RBC Rel Count 0.1, Neut # (Auto) 4.4, Lymph # (Auto) 2.2, [place] # (Auto) 0.7, Eos # (Auto) 0.2, [...] by Sly Benson II, DO> 08/11/22 1103 [facility] Work Phone: [phone]) 224-138112-12-2022 Progress note Author Sly Benosn [facility] June 23, 2022 11:22am Note Date/Time June 23, 2022 11:18am [facility] [place] [address] Hem/Onc Follow Up Note - OP Signed Patient: Theresa Luu MR#: [id number] : 1945 Acct:[id number] Age/Sex: 76 / F Type: REG RCR [...] leg melanoma removed by Dr. Trammell at [facility] in November 162020 with sentinel node biopsy [...] maybe 3 days. worse after hot showers. [employer] really works for this. - Physical Exam [...] for coordination of care (as documented) and xyel-lq-wpxx counseling of patient and/or family. [facility] - Medical History Medical History: Medical History [...] by Sly Benson II, DO> 06/23/22 1122 [facility] Work Phone: 1(955) 695-525112-12-2022 Progress note Author Sly Benson [facility] June 23, 2022 11:22am Note Date/Time June 23, 2022 11:18am [facility] [place] [address] Hem/Onc Follow Up Note - OP Signed Patient: Theresa Luu MR#: [id number] : 1945 Acct:[id number] Age/Sex: 76 / F Type: REG RCR [...] leg melanoma removed by Dr. Trammell at [facility] in November 162020 with sentinel node biopsy [...] for coordination of care (as documented) and vomn-ll-yhyz counseling of patient and/or family. [facility] - Medical History Medical History: Medical History [...] by Sly Benson II, DO> 06/23/22 1122 [facility] Work Phone: 1(356) 918-904911-21-2022 Progress note Author Zenobia Parker [facility] June 02, 2022 11:05am Note Date/Time June 02, 2022 11:01am [facility] [place] [address] Hem/Onc Follow Up Note - OP Signed Patient: Theresa Luu MR#: [id number] : 1945 Acct:[id number] Age/Sex: 76 / F Type: REG RCR [...] leg melanoma removed by Dr. Trammell at [facility] in November 162020 with sentinel node biopsy [...] 10 point review of systems is negative. [facility] - Medical History Medical History: Medical History [...] for coordination of care (as documented) and dyfu-uk-clyu counseling of patient and/or family. Dictated By: Zenobia Parker APRN DD/ 1058 Signed By: <Electronically signed by ANTOINETTE Parker> 06/02/22 1100 [facility] Work Phone: 1([phone]) 222-776811-21-2022 Progress note Author Zenobia Parker [facility] June 02, 2022 11:05am Note Date/Time June 02, 2022 11:01am [facility] [place] [address] Hem/Onc Follow Up Note - OP Signed Patient: Theresa Luu MR#: [id number] : 1945 Acct:[id number] Age/Sex: 76 / F Type: REG RCR [...] leg melanoma removed by Dr. Trammell at [facility] in November 162020 with sentinel node biopsy [...] for coordination of care (as documented) and tdld-cf-scao counseling of patient and/or family. Dictated By: Zenobia Parker APRN DD/ 1058 Signed By: <Electronically signed by ANTOINETTE Parker> 06/02/22 2557 [facility] Work Phone: 1([phone]) 623-324010-21-2022 Progress note Author Sly Benson [facility] May 02, 2022 4:01pm Note Date/Time May 02, 2022 3 :52pm [facility] at [address] [address] Hem/Onc Follow Up Note - OP Signed Patient: Theresa Luu MR#: [id number] : 1945 Acct:[id number] Age/Sex: 76 / F Type: REG RCR [...] leg melanoma removed by Dr. Trammell at [facility] in November 162020 with sentinel node biopsy [...] for coordination of care (as documented) and flfd-rl-nutq counseling of patient and/or family. [facility] - Medical History Medical History: Medical History [...] signed by Sly Benson II, DO> 05/02/22 1606 [facility] Work Phone: 1(969) 403-913710-21-2022 Progress note Author Sly Benson [facility] May 02, 2022 4:01pm Note Date/Time May 02, 2022 3 :52pm [facility] at [address] [place] [address] Hem/Onc Follow Up Note - OP Signed Patient: Theresa Luu MR#: [id number] : 1945 Acct:[id number] Age/Sex: 76 / F Type: REG RCR [...] leg melanoma removed by Dr. Trammell at [facility] in November 162020 with sentinel node biopsy [...] for coordination of care (as documented) and ndwp-ty-zwkp counseling of patient and/or family. [facility] - Medical History Medical History: Medical History [...] by Sly Benson II, DO> 05/02/22 1601 [facility] Work Phone: 1(178) 536-914510-15-2022 Progress note Author Sly Benson [facility] April 26, 2022 11:51am Note Date/Time April 21, 2022 9 :31am [facility] at [address] [address] Hem/Onc Follow Up Note - OP Signed Patient: Theresa Luu MR#: [id number] : 1945 Acct:[id number] Age/Sex: 76 / F Type: REG RCR Copies to: Yoni ProlastedmarDO Alex MD~ Date of Service: 04/21/2022 Time [...] 4 doses per trial Cornelius et neal [facility] 2019 Repeat imaging in September [...] leg melanoma removed by Dr. Trammell at [facility] in November 162020 with sentinel node biopsy [...] for coordination of care (as documented) and idwv-hg-qwcg counseling of patient and/or family. [facility] - Medical History Medical History: Medical History [...] by Sly Benson II, DO> 04/26/22 1151 [facility] Work Phone: 1(460) 902-472210-15-2022 Progress note Author Sly Benson [facility] April 26, 2022 11:51am Note Date/Time April 21, 2022 9 :31am [facility] [place] [address] Hem/Onc Follow Up Note - OP Signed Patient: Theresa Luu MR#: [id number] : 1945 Acct:[id number] Age/Sex: 76 / F Type: REG RCR [...] leg melanoma removed by Dr. Trammell at [facility] in November 162020 with sentinel node biopsy [...] for coordination of care (as documented) and ymkk-il-eimj counseling of patient and/or family. [facility] - Medical History Medical History: Medical History [...] by Sly Benson II, DO> 04/26/22 1151 [facility] Work Phone: [phone]) [phone] Progress note Author Sly Benson [facility] November 04, 2021 7:49pm Note Date/Time October 25, 2021 9:5 8am [facility] at [address] [address] Hem/Onc Follow Up Note - OP Signed Patient: Theresa Luu MR#: [id number] : 1945 Acct:[id number] Age/Sex: 76 / F Type: REG RCR [...] for a 3 week follow up for [facility] to review CTscans done 10/10/2021. There is [...] leg melanoma removed by Dr. Trammell at [facility] in November 162020 with sentinel node biopsy [...] for coordination of care (as documented) and twyy-lv-waub counseling of patient and/or family. [facility] - Medical History Medical History: Medical History [...] signed by Sly Benson II, DO> 11/04/211948 [facility] Work Phone: 1(336) 482-113804-25-2022 Progress note Author Sly Benson [facility] November 04, 2021 7:49pm Note Date/Time October 25, 2021 9:5 8am [facility] [place] [address] Hem/Onc Follow Up Note - OP Signed Patient: Theresa Luu MR#: [id number] : 1945 Acct:[id number] Age/Sex: 76 / F Type: REG RCR [...] leg melanoma removed by Dr. Trammell at [facility] in November 162020 with sentinel node biopsy [...] for coordination of care (as documented) and mabd-ff-ieyr counseling of patient and/or family. [facility] - Medical History Medical History: Medical History [...] signed by Sly Benson II, DO> 11/04/211948 [facility] Work Phone: 1(830) 294-301703-28-2022 Progress note Author Sly Benson [facility] October 07, 2021 8:58am Note Date/Time October 07, 2021 8:2 8am [facility] [place] [address] Hem/Onc Follow Up Note - OP Signed Patient: Theresa Luu MR#: [id number] : 1945 Acct:[id number] Age/Sex: 76 / F Type: REG RCR [...] leg melanoma removed by Dr. Trammell at [facility] in November 162020 with sentinel node biopsy [...] for coordination of care (as documented) and hdwg-cj-ppub counseling of patient and/or family. [facility] - Medical History Medical History: Medical History [...] signed by Sly Benson II, DO> 10/07/2158 [facility] Work Phone: 1([phone]) 141-624003-28-2022 Progress note Author Sly Benson [facility] October 07, 2021 8:58am Note Date/Time October 07, 2021 8:2 8am [facility] [place] [address] Hem/Onc Follow Up Note - OP Signed Patient: Theresa Luu MR#: [id number] : 1945 Acct:[id number] Age/Sex: 76 / F Type: REG RCR [...] leg melanoma removed by Dr. Trammell at [facility] in November 162020 with sentinel node biopsy [...] for coordination of care (as documented) and coew-la-rhlt counseling of patient and/or family. [facility] - Medical History Medical History: Medical History [...] by Sly Benson II, DO> 10/07/21 0858 [facility] Work Phone: 1(847) 851-622905-07-2021 NotePROCEDURE DETAILS Preoperative Diagnosis: Melanoma of lower limb, C43.70 Postoperative Diagnosis: left lower leg me\lanoma Surgeon: Alex Trammell Resident/Fellow/Other Manager Of Marketing: Bambi Ray Muhammad Procedure: 1. WIDE LOCAL [...] Aguilar MD Furlong, Dennis G, MD - [phone] [] Signatures/Attestation: Note Completion: Attending AttestationI was present for the entire procedure Electronic Signatures: Alex Trammell) (Signed 16-Nov-2020 14:13) Authored: Post-Operative Note, Chart Review, Note Completion Last Updated: 16-Nov-2020 14:13 by Alex Trammell)[facility] 11-16-2020 NoteHistory & Physical Reviewed: I have [...] the note. I personally evaluated the patient [id number] Attending Provider Inpatient Certification StatementObservation patient/other outpatient visits Electronic Signatures: Alex Trammell) (Signed 16-Nov-2020 13:12) Authored: Note Completion Co-Signer: History & Physical Reviewed, ERAS, Consent, Note Completion Ct Tinsley (Resident)) (Signed 16-Nov-2020 10:36) Authored: History & Physical Reviewed, ERAS, Consent, Note Completion Last Updated: 16-Nov-2020 13:12 by Alex Trammell)[facility] 10-16-2020 NoteAccession #: [id number] Pathologist: SURAJ MELGAR MD Date of Procedure: 10/16/2020 Date Received: 10/16/2020 Submitting Physician: ALEX TRAMMELL MD Location: [facility] Copy To/Referring/Attending: QUENTIN FITZPATRICK DO FINAL DIAGNOSIS 4 SLIDES, [facility], #[id number] [A] (BX: 09/28/2020) SKIN, LEFT DISTAL PRETIBIAL [...] REPORT A. 4 SLIDES, [facility], #[id number] [A] (BX: 09/28/2020): SPECIMEN Procedure: Biopsy, shave Specimen Laterality: Left TUMOR Tumor Site: Skin of lower limb and hip: Left distal pretibial region Histologic Type: Either superficial spreading or nodular type. 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 Slides received on specimen A only. Slide/Block Description 4 SLIDES, [id number] A. Keep Slides: N Slides Returned: N [facility]:Performed By: #### D #### [id number] History general Narrative - Reported* Type Description Date Medical History breast cancer (1996) Medical History HTN Medical History hyperlipidemia Medical History basal cell carcinoma upper back (September 2020) Medical History metastatic malignant melanoma R[employer] Other 04-20-2014 History of Present illness Narrative* [...] in a prior mole. Thepatient moved from [place] 8 years ago and has not established [...] She reports that shehas not seen her manager imaging since prior to the cancer treatment. As [...] the knee to the foot. 1+ edema. [facility] Work Phone: 1(809) 155-683203-14-2014 History of Present illness Narrative* Ms. Luu [...] in a prior mole. Thepatient moved from [place] 8 years ago and has not established [...] She reports that shehas not seen her manager imaging since prior to the cancer treatment. As [...] the knee to the foot. 1+ edema. [facility] [address] Work Phone: 1(247) 542-728907-15-2013 History of Present illness Narrative* Ms. Luu [...] in a prior mole. Thepatient moved from [place] 8 years ago and has not established [...] the knee to the foot. 1+ edema. [facility] Work Phone: 1(162) 509-625306-16-2013 History of Present illness Narrative* Ms. Luu [...] in a prior mole. Thepatient moved from [place] 8 years ago and has not established [...] knee to the foot. 2+ edema. [facility] Work Phone: [phone]) 808-968905-25-2013 History of Present illness Narrative* Ms. Luu [...] in a prior mole. Thepatient moved from [place] 8 years ago and has not established [...] the knee to the foot. 2+ edema. [facility] Work Phone: evaluation noteN/ADept. of Dermatology Evaluation note* Diagnosis Onset Date Resolution Status Melanoma [facility] Work Phone: Evaluation noteNo assessment information available [facility] Work Phone: evaluation note* Diagnosis Onset Date Resolution Status Melanoma acute Inguinal adenopathy acute [facility] Work Phone: evaluation note* Diagnosis Onset Date Resolution Status Inguinal adenopathy acute Melanoma acute [facility] Work Phone: evaluation note* Diagnosis Onset Date Resolution Status Encounter for antineoplastic immunotherapy acute Inguinal adenopathy acute Melanoma acute [facility] Work Phone: evaluation note* Diagnosis Onset Date Resolution Status Melanoma acute Encounter for antineoplastic immunotherapy acute Inguinal adenopathy acute Melanoma acute [facility] Work Phone: evaluation note* Diagnosis Essential (primary) hypertension Unspecified essential hypertension [facility] Diagnosis Benign hypertension with chronic kidney disease, stage III ([facility])- Primary Hyperlipidemia, unspecified hyperlipidemia type Malignant [...] Frame: 1 Day, Location: Determined By Patient [facility] Work Phone: Hospital Discharge instructionsAmbulatory Orders* Oncology Histology Time Frame: 1 Day, Location: Determined By Patient [facility] Work Phone: InstructionsNot on filedocumented in this encounter [facility] on filedocumented in this encounter [facility]ructionsNot on filedocumented in this encounter [facility]* Attachments The following attachments cannot be sent through Care Everywhere. * Common wrist injuries (Yi) [facility] Author Sly Benson [facility] May 02, 2022 4:01pm Note Date/Time May 02, 2022 3 :52pm [facility] Center at [address] [address] Hem/Onc Follow Up Note - OP Signed Patient: Theresa Luu MR#: [id number] : 1945 Acct:[id number] Age/Sex: 76 / F Type: REG RCR Copies to: Yoni Neo Muller,DO lAex Trammell MD~ Date of Service: 05/02/2022 Time [...] leg melanoma removed by Dr. Trammell at [facility] in November 162020 with sentinel node biopsy [...] for coordination of care (as documented) and pcwj-ap-fjbf counseling of patient and/or family. [facility]LY [facility], [facility] - Medical History Medical History: Medical History [...] by Sly Benson II, DO> 05/02/22 1601 [facility] Work Phone: Progress note Author Zenobia Parker [facility] June 02, 2022 11:05am Note Date/Time June 02, 2022 11:01am [facility] [place] [id number] Hem/Onc Follow Up Note - OP Signed Patient: Theresa Luu MR#: [id number] : 1945 Acct:[id number] Age/Sex: 76 / F Type: REG RCR [...] leg melanoma removed by Dr. Trammell at [facility] in November 162020 with sentinel node biopsy [...] for coordination of care (as documented) and cnmv-pc-sjjs counseling of patient and/or family. Dictated By: Zenobia Parker APRN DD/ 1058 Signed By: <Electronically signed by ANTOINETTE Parker> 06/02/22 1105 [facility] Work Phone: Progress note Author Sly Benson [facility] June 23, 2022 11:22am Note Date/Time June 23, 2022 11:18am [facility] at [address] [address] Hem/Onc Follow Up Note - OP Signed Patient: Theresa Luu MR#: [id number] : 1945 Acct:[id number] Age/Sex: 76 / F Type: REG RCR [...] leg melanoma removed by Dr. Trammell at [facility] in November 162020 with sentinel node biopsy [...] for coordination of care (as documented) and pdmt-vp-kcuw counseling of patient and/or family. [facility] - Medical History Medical History: Medical History [...] by Sly Benson II, DO> 06/23/22 1122 [facility] Work Phone: Progress note Author Sly Benson [facility] August 11, 2022 11:03am Note Date/Time August 11, 2022 1 0:48am [facility] [place] [id number] Hem/Onc Follow Up Note - OP Signed Patient: Theresa Luu MR#: [id number] : 1945 Acct:[id number] Age/Sex: 76 / F Type: REG RCR Copies to: Yoni Muller,DO Alex Trammell MD~ Date of Service: 08/11/2022 Time of [...] leg melanoma removed by Dr. Trammell at [facility] in November 162020 with sentinel node biopsy [...] for coordination of care (as documented) and tmwa-fb-rkuu counseling of patient and/or family. [facility] - Medical History Medical History: Medical History [...] % (Auto) 58.6, Lymph % (Auto) 29.6, [place] % (Auto) 9.0, Eos % (Auto) 2.1, Baso % (Auto) 0.7, Nucleat RBC Rel Count 0.1, Neut # (Auto) 4.4, Lymph # (Auto) 2.2, [place] # (Auto) 0.7, Eos # (Auto) 0.2, [...] by Sly Benson II, DO> 08/11/22 1103 [facility] Work Phone: Progress note Author Sly Benson [facility] September 08, 2022 10:18am Note Date/Time September 08, 2022 10:08am [facility] [place] [address] Hem/Onc Follow Up Note - OP Signed Patient: Theresa Luu MR#: [id number] : 1945 Acct:[id number] Age/Sex: 76 / F Type: REG RCR [...] leg melanoma removed by Dr. Trammell at [facility] in November 162020 with sentinel node biopsy [...] for coordination of care (as documented) and myzr-sn-revy counseling of patient and/or family. [facility] - Medical History Medical History: Medical History [...] by Sly Benson II, DO> 09/08/22 1018 [facility] Work Phone: Progress note Author Senia Montez [facility] December 30, 2022 11:06am Note Date/Time December 30, 2022 8:35 am [facility] [place] [address] Hem/Onc Follow Up Note - OP Signed Patient: Theresa Luu MR#: [id number] : 1945 Acct:[id number] Age/Sex: 77 / F Type: REG RCR [...] leg melanoma removed by Dr. Trammell at [facility] in November 162020 with sentinel node biopsy [...] for coordination of care (as documented) and dqdm-sa-myal counseling of patient and/or family. [facility] - Medical History Medical History: Medical History [...] <Electronically signed by ANTOINETTE Senia Montez> 12/30/22 110 [facility] Work Phone: Progress note Author Sly Benson [facility] March 06, 2023 2:40pm Note Date/Time March 06, 2023 2: 37pm [facility] [place] [address] Hem/Onc Follow Up Note - OP Signed Patient: Theresa Luu MR#: [id number] : 1945 Acct:[id number] Age/Sex: 77 / F Type: REG RCR [...] leg melanoma removed by Dr. Trammell at [facility] in November 162020 with sentinel node biopsy [...] for coordination of care (as documented) and fwui-gt-qccx counseling of patient and/or family. [facility] - Medical History Medical History: Medical History [...] % (Auto) 66.0, Lymph % (Auto) 23.1, [place] % (Auto) 8.4, Eos % (Auto) 1.7, Baso % (Auto) 0.8, Nucleat RBC Rel Count 0.0, Neut # (Auto) 4.1, Lymph # (Auto) 1.4, [place] # (Auto) 0.5, Eos # (Auto) 0.1, [...] by Sly Benson II, DO> 03/06/23 1440 [facility] Work Phone: Progress note Author Syl Benson [facility] August 07, 2023 11:49am Note Date/Time August 07, 2023 1 1:21am [facility] [place] [address] Cancer Center Note Signed Patient: Theresa Luu MR#: [id number] : 1945 Acct:[id number] Age/Sex: 77 / F Type: REG AMB [...] Indication Cycle Number Last Admin 13 of Cycle Day Next Admin No Active [...] leg melanoma removed by Dr. Trammell at [facility] in November 162020 with sentinel node biopsy [...] up with labs and imaging for review. 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 worse after hot showers. [employer] really works for this. 08/11/22 She is [...] imaging for review, prior to treatment today. [facility] Medical History Medical History Malignant tumor of [...] by Sly Benson II, DO> 01/22/24 0945 [facility] Work Phone: Reason for referral [...] section and content) DATE CREATED AUTHOR [facility]07[facility] DATE CREATED AUTHOR AUTHOR'S ORGANIZ ATION 12/04/2020 [facility] DATE CREATED AUTHOR AUTHOR'S ORGANIZ ATION 12/10/2020 [facility] DATE CREATED AUTHOR AUTHOR'S ORGANIZ ATION 05/12/2021 [facility] DATE CREATED AUTHOR AUTHOR'S ORGANIZ ATION 09/23/2021 [facility] DATE CREATED AUTHOR AUTHOR'S ORGANIZ ATION 09/28/2021 [facility] DATE CREATED AUTHOR AUTHOR'S ORGANIZ ATION 10/06/2022 [facility] DATE CREATED AUTHOR AUTHOR'S ORGANIZ ATION 04/15/2024 [facility] Care Teams (unrecognized sec [...] Trammell MD Attending Provider Active Yoni Muller Primary Care Provider Active Team Status: Inactive Member Role Status Dates Yoni Prolastedmar DO Primary Care Provider Active Alex Trammell MD Attending Provider Active Team Status: Inactive Member Role Status Dates Yoni Muller , DO Primary Care Provider Active Sly Benson II, DO Attending Provider Active Ditch Inspector Relationship Specialty Start Date End Date Yoni Muller DO [address] [place] [address] PCP - General Family Medicine 04/21/22 Ditch Inspector Relationship Specialty Start Date End Date Yoni Muller DO [address] [place] [address] PCP - General Family Medicine 04/21/22 Ditch Inspector Relationship Specialty Start Date End Date Yoni Muller DO [address] [place] [address] PCP - General Family Medicine 04/21/22 Team Status: Inactive Member Role Status Dates Yoni ProlastDO edmar Primary Care Provider Active Start: January 22, 2024 End: January 22, 2024 Sly Benson II, DO Attending Provider Active Start: January 22, 2024 End: January 22, 2024 Team Status: Active Member Role Status Dates Sly Benson II, DO Attending Provider Active Start: January 22, 2024 Yoni Mortezahelena Primary Care Provider Active Start: January 22, [...] BE BASED ON THE PRIMARY CLINICAL RECORDS. [employer] [facility]. provides no warranty or guarantee of the accuracy or completeness of information in this document.
[2024-05-11 08:13] LABS: Basophils Percent Auto 0.6 % (0.2-2.0); Eosinophils Absolute Auto 0.1 10^3/uL (0.0-0.7); Eosinophils Percent Auto 1.5 % (0.9-7.0); Hematocrit 42.7 % (36.0-48.0); Hemoglobin 14.3 g/dL (12.0-16.0); Immature Granulocytes Abs Auto 0.02 10^3/uL (0.00-0.03); Immature Granulocytes Pct Auto 0.4 % (0.0-0.5); Lymphocytes Absolute Auto 1.7 10^3/uL (1.2-3.8); Lymphocytes Percent Auto 32.8 % (20.5-60.0); Mean Corpuscular HGB Conc 33.5 g/dL (29.9-35.2); Mean Corpuscular Hemoglobin 30.7 pg (26.7-34.0); Mean Corpuscular Volume 91.6 fL (81.0-99.0); Mean Platelet Volume 9.6 fL (9.5-13.5); Monocytes Absolute Auto 0.5 10^3/uL (0.3-0.8); Monocytes Percent Auto 8.5 % (1.7-12.0); Neutrophils Percent Auto 56.2 % (43.0-75.0); Platelet Count 205 10^3/uL (150-450); Red Blood Count 4.66 10^6/uL (4.20-5.40); Red Cell Distribution Width 12.5 % (11.0-15.0); White Blood Count 5.3 10^3/uL (4.0-11.0)
[2024-05-11 08:28] LABS: Alanine Aminotransferase 44 U/L (14-59); Albumin Globulin Ratio 0.9; Albumin Level 3.3 g/dL (3.4-5.0); Alkaline Phosphatase 143 U/L (46-116); Anion Gap 16.2; Aspartate Amino Transferase 40 U/L (15-37); BUN Creatinine Ratio 19.2; Bilirubin Total 0.5 mg/dL (0.2-1.0); Calcium 9.1 mg/dL (8.5-10.1); Carbon Dioxide 27.3 mmol/L (21.0-32.0); Chloride 104 mmol/L (98-107); Estimated GFR (African America >60 (>=60 mL/min/1.73m^2); Estimated GFR (Non-African Ame 54 (>=60 mL/min/1.73m^2); Globulin 3.7 g/dL; Glucose 128 mg/dL (74-106); Potassium 3.5 mmol/L (3.5-5.1); Sodium 144 mmol/L (136-145); Thyroid Stimulating Hormone 2.113 uIU/mL (0.358-3.740)
[2024-05-11 09:47] LABS: Free T4 1.22 ng/dL (0.76-1.46)
[2024-05-12 13:09] LABS: ACTH, Plasma 28.7 pg/mL (7.2-63.3)
== END 2024-05-11 06:52 | disposition home or self-care (01) ==
LOC: LAB 06:53
PROVIDERS: PCP Family Medicine; Visit Provider Internal Medicine
DX: C43.9 Malignant melanoma of skin, unspecified (principal)
CPT/HCPCS: 36415; 80053; 82024; 82533; 84439; 84443; 85025

== ENCOUNTER 2024-06-16 07:29 | Outpatient (OUT) | payer MEDICARE, SELFPAY ==
--- OUTSIDE RECORDS SUMMARY | 2024-06-16 07:33 | XMS_ITS | CCD ---
Author Organization [facility] Care Team Providers Care Manager Custom Name Role Phone Quentin Fitzpatrick Unavailable Unavailable Yohana Yoni Larson Unavailable Unavailable Unavailable Quentin Fitzpatrick Unavailable Unavailable DO Sly Benson II Attending Provider [phone] Yohana, DO [place] Primary Care Provider [phone] MD Alex Trammell Referring Provider DO Sly Benson II Attending Provider [phone] Yohana, Yoni Primary Care Provider MD Alex Trammell Referring Provider MD Alex Trammell Attending Provider Yohana, DO Yoni Primary Care Provider DO Sly Benson II Attending Provider MD Alex Trammell Referring Provider Yohana, Yoni Primary Care Provider MD Alex Trammell Attending Provider DO Sly Benson II Attending Provider [phone] MD Alex Trammell Referring Provider DO Sly Benson II Attending Provider [phone] MD Alex Trammell Referring Provider Yohana, Yoni Primary Care Provider MD Alex Trammell Attending Provider Kelley II, DO Sly J Attending Provider MD Alex Trammell Referring Provider MD Alex Trammell Referring Provider MD Alex Trammell Referring Provider Kelley II, DO Sly Jeffrey Attending Provider Furlong, DO Yoni Primary Care Provider [phone] MD Alex Trammell Referring Provider Kelley II, DO Sly Jeffrey Attending Provider Furlong, DO Yoni Primary Care Provider MD Alex Trammell Referring Provider Adamhilario II, DO Sly J Attending Provider [phone] Furlong, DO [place] Primary Care Provider [phone] MD Alex Trammell Referring Provider [phone] DAMEONICZ, SLY J Admitting Unavailable FURLONG, DR [...] Provider MD Alex Trammell Referring Provider [phone] Kelley II, DO Sly Jeffrey Attending Provider Jewelng, DO Yoni Primary Care Provider [phone] MD Alex Trammell Referring Provider Regino Kimber Unavailable Kelley II, DO Sly Jeffrey Attending Provider Furlong, DO Yoni Primary Care Provider [phone] MD Alex Trammell Referring Provider [phone] Kelley II, DO Sly Jeffrey Attending Provider Yohana, DO [place] Primary Care Provider MD Alex Trammell Referring Provider Kelley II, DO Sly Jeffrey Attending Provider Yohana, DO [place] Primary Care Provider MD Alex Trammell Referring Provider Furlong Yoni MITCHELL Primary Care Provider Kelley II, DO Sly Jeffrey Attending Provider Jewelng, DO Yoni Primary Care Provider MD Alex Trammell Referring Provider [phone] Kelley II, Sly Jeffrey Attending Unavaila ble [...] (2 sources) Penicillin Drug Allergy Unknown [facility] Repository (4 sources) Penicillins Propensity to adverse reactions to drug 2 [facility] (1 source) Penicillins Drug allergy (disorder) 4 [facility] Repository Medications Current Medications Medication [...] 21.6 pg/mL Normal 7.2-63.3 [facility] Comment on above: Result Comment: ACTH reference interval for samples collected between 7 and 10 AM. Performed at: [facility] [address] [id number] Boilermaker Mechanic: Coleman Lacy PhD, Phone: [phone] PERFORMED BY: [place] [address] PATHOLOGIST DEGREE CLERK WAYLON SAUNDERS M.D. Performed By: #### T 4F, CMP, LDH, TSH3, CBC #### [address] #### ACTH #### [facility] , Alanine aminotransferase [En zymatic activity/volume] in Serum or PlasmaOrdered By: Sly Benson on 01-20-2024 ALT [Catalytic activity/Vol] 34 U/L Normal 7-52 [facility] Comment on above: Performed By: #### T 4F, CMP, LDH, TSH3, CBC #### [facility] [address] [place] [address] [place] #### ACTH #### [facility] , Albumin [Mass/volume] in Ser um or Plasma by Bromocresol green (BCG) dye binding methoOrdered By: Sly Benson on 01-20-2024 Albumin BCG dye [Mass/Vol] 4.0 g/dL 3.5-5.7 [facility] Alkaline phosphatase [Enzyma tic activity/volume] in Serum or PlasmaOrdered By: Sly Benson on 01-20-2024 ALP [Catalytic activity/Vol] 109 U/L High 34-104 [facility] Comment on above: Performed By: #### T 4F, CMP, LDH, TSH3, CBC #### [facility] [address] [place] [address] [place] #### ACTH #### [facility] , Aspartate aminotransferase [ Enzymatic activity/volume] in Serum or PlasmaOrdered By: Sly Benson on 01-20-2024 AST [Catalytic activity/Vol] 26 U/L Normal 13-39 [facility] Comment on above: Performed By: #### T 4F, CMP, LDH, TSH3, CBC #### [place] [address] [place] #### ACTH #### [facility] , Automated basophil %Ordered By: Sly Benson on 01-20-2024 Basophils/100 WBC (Bld) 0.3 % Normal . [facility] Comment on above: Performed By: #### T 4F, CMP, LDH, TSH3, CBC #### [facility] [address] [place] [address] [place] #### ACTH #### [facility] , Automated basophil countOrde red By: Sly Benson on 01-20-2024 Basophils (Bld) [#/Vol] 0.0 10*3/uL Normal 0.0-0.2 [facility] Comment on above: Result Comment: PERF ORMED BY: [place] [address] PATHOLOGIST DEGREE CLERK WAYLON SAUNDERS M.D. Performed By: #### T 4F, CMP, LDH, TSH3, CBC #### [place] [address] [place] #### ACTH #### [facility] , Automated blood monocyte cou ntOrdered By: Sly Benson on 01-20-2024 Monocytes (Bld) [#/Vol] 0.8 10*3/uL Normal 0.0-0.8 [facility] Comment on above: Performed By: #### T 4F, CMP, LDH, TSH3, CBC #### [place] [address] [place] #### ACTH #### [facility] , Automated eosinophil %Ordere d By: Sly Benson on 01-20-2024 Eosinophils/100 WBC (Bld) 1.3 % Normal . [facility] Comment on above: Performed By: #### T 4F, CMP, LDH, TSH3, CBC #### [place] [address] [place] #### ACTH #### [facility] , Automated eosinophil countOr dered By: Sly Benson on 01-20-2024 Eosinophils (Bld) [#/Vol] 0.1 10*3/uL Normal 0.0-0.45 [facility] Comment on above: Performed By: #### T 4F, CMP, LDH, TSH3, CBC #### [place] [address] [place] #### ACTH #### [facility] , Automated monocyte %Ordered By: Sly Benson on 01-20-2024 Monocytes/100 WBC (Bld) 8.7 % Normal . [facility] Comment on above: Performed By: #### T 4F, CMP, LDH, TSH3, CBC #### [place] [address] [place] #### ACTH #### [facility] , Automated neutrophil %Ordere d By: Sly Benson on 01-20-2024 Neutrophils/100 WBC (Bld) 71.5 % Normal . [facility] Comment on above: Performed By: #### T 4F, CMP, LDH, TSH3, CBC #### [address] [address] [place] #### ACTH #### [facility] , Bilirubin.total [Mass/volume ] in Serum or PlasmaOrdered By: Sly Benson on 01-20-2024 Bilirubin [Mass/Vol] 0.8 mg/dL Normal 0.3-1.0 [facility] Comment on above: Performed By: #### T 4F, CMP, LDH, TSH3, CBC #### [facility] [address] [place] [address] #### ACTH #### [facility] , CT abdomen pelvis w conon CT abdomen pelvis w con [facility] [place] [address] [place] [address] CT Scan Report Signed Patient: Theresa Luu MR#: [id number] : 1945 Acct:[id number] Age/Sex: 78 / F ADM Date: 01/20/24 Loc: [facility]: [facility] Dr: Sly Benson II DO Copies to: Sly Benson II, DO Ordering Provider: Sly Benson II, DO Date of Service: 01/20/24 CT/CT chest w con: MELANOMA ([id number]) CT/CT abdomen pelvis w con: MELANOMA CT [...] Monroe Jr., D.O.01/20/2024 11:24 AM Dictation Location: [place] [address] Transcribed By: [facility] 01/20/24 1124 Dictated By: Sylvain Monroe Jr, DO 01/20/24 1111 Signed By: 01/20/24 1124 Normal [facility] Calcium [Mass/volume] in Ser um or PlasmaOrdered By: Sly Benson on 01-20-2024 Calcium [Mass/Vol] 9.1 mg/dL Normal 8.6-10.3 [facility] Comment on above: Performed By: #### T 4F, CMP, LDH, TSH3, CBC #### [facility] [address] #### ACTH #### [facility] , Carbon dioxide, total [Moles /volume] in Serum or PlasmaOrdered By: Sly Benson on 01-20-2024 CO2 [Moles/Vol] 29.1 mmol/L Normal 21.0-31.0 [facility] Comment on above: Performed By: #### T 4F, CMP, LDH, TSH3, CBC #### [facility] [address] [place] [address] [place] #### ACTH #### [facility] , Chloride [Moles/volume] in S mellissa or PlasmaOrdered By: Sly Benson on 01-20-2024 Chloride [Moles/Vol] 102 mmol/L Normal 98-107 [facility] Comment on above: Performed By: #### T 4F, CMP, LDH, TSH3, CBC #### [facility] [address] [place] [address] [place] #### ACTH #### [facility] , Complete Blood Count Auto Di ffon 01-20-2024 Mean Corpuscular HGB Conc 33.7 g/dL Normal 32.0-35.0 [facility] Comment on above: Performed By: #### T 4F, CMP, LDH, TSH3, CBC #### [place] [address] [place] #### ACTH #### [facility] , NRBC% 0.0 /100{WBC} Normal 0-0.5 [facility] Comment on above: Performed By: #### T 4F, CMP, LDH, TSH3, CBC #### [place] [address] [place] #### ACTH #### [facility] , Comprehensive Metabolic Pane eileen 01-20-2024 Albumin [Mass/Vol] 4.0 g/dL Normal 3.5-5.7 [facility] Comment on above: Performed By: #### T 4F, CMP, LDH, TSH3, CBC #### [place] [address] [place] #### ACTH #### [facility] , Creatinine Clr Calc Pharmacy 58.76 Normal [facility] Comment on above: Performed By: #### T 4F, CMP, LDH, TSH3, CBC #### [place] [address] [place] #### ACTH #### [facility] , GFR/1.73 sq M.predicted MDRD (S/P/Bld) [Vol rate/Area] mL/min/{1.73_m2} Normal [facility] Comment on above: Performed By: #### T 4F, CMP, LDH, TSH3, CBC #### [place] [address] [place] #### ACTH #### [facility] , Creatinine [Mass/volume] in Serum or PlasmaOrdered By: Sly Benson on 01-20-2024 Creatinine [Mass/Vol] 0.84 mg/dL Normal 0.60-1.20 [facility] Comment on above: Performed By: #### T 4F, CMP, LDH, TSH3, CBC #### [place] [address] [place] #### ACTH #### [facility] , Erythrocyte distribution wid th [Ratio] by Automated countOrdered By: Sly Benson on 01-20-2024 Erythrocyte distribution width (RBC) [Ratio] 14.1 % Normal 11.9-15.3 [facility] Comment on above: Performed By: #### T 4F, CMP, LDH, TSH3, CBC #### [place] [address] [place] #### ACTH #### [facility] , Erythrocytes [#/volume] in B lood by Automated countOrdered By: Sly Benson on 01-20-2024 RBC (Bld) [#/Vol] 4.77 10*6/uL Normal 3.60-5.00 [facility] Comment on above: Performed By: #### T 4F, CMP, LDH, TSH3, CBC #### [place] [address] [place] #### ACTH #### [facility] , Glucose [Mass/volume] in Ser um or PlasmaOrdered By: Sly Benson on 07-10-2024 Glucose [Mass/Vol] 112 mg/dL High 70-100 [facility] Comment on above: ADA recommended refe rence rangeRandom Glucose Reference Range is dependent on time and content of last meal. Glucose of more than 200 mg/dL in a nonstressed, ambulatory subject supports the diagnosis of Diabetes Mellitus. Result Comment: [place] om Glucose Reference Range is dependent on time and content of last meal. Glucose of more than 200 mg/dL in a nonstressed, ambulatory subject supports the diagnosis of Diabetes Mellitus. ADA recommended reference range Performed By: #### T 4F, CMP, LDH, TSH3, CBC #### [place] [address] [place] #### ACTH #### [facility] , Hematocrit [Volume Fraction] of Blood by Automated countOrdered By: Sly Benson on 01-20-2024 Hematocrit (Bld) [Volume fraction] 43.2 % Normal 34.0-46.4 [facility] Comment on above: Performed By: #### T 4F, CMP, LDH, TSH3, CBC #### [place] [address] [place] #### ACTH #### [facility] , Hemoglobin [Mass/volume] in BloodOrdered By: Sly Benson on 01-20-2024 Hemoglobin (Bld) [Mass/Vol] 14.6 g/dL Normal 11.8-15.4 [facility] Comment on above: Performed By: #### T 4F, CMP, LDH, TSH3, CBC #### [place] [address] [place] #### ACTH #### [facility] , LDH Lactate Dehydrogenaseon 01-20-2024 LDH Lactate Dehydrogenase 191 U/L Normal 140-271 [facility] Comment on above: Performed By: #### T 4F, CMP, LDH, TSH3, CBC #### [place] [address] [place] #### ACTH #### [facility] , Lactate dehydrogenase [Enzym atic activity/volume] in Serum or Plasma by Lactate to pyOrdered By: Sly Benson on 01-20-2024 LDH Lactate to pyruvate reaction [Catalytic activity/Vol] 191 U/L 140-271 [facility] Leukocytes [#/volume] correc margot for nucleated erythrocytes in Blood by Automated counOrdered By: Sly Benson on 01-20-2024 WBC corrected for nucl RBC Auto (Bld) [#/Vol] 9.2 10*3/uL 3.8-11.6 [facility] Leukocytes [#/volume] in Blo od by Automated countOrdered By: Sly Benson on 01-20-2024 WBC (Bld) [#/Vol] 9.2 10*3/uL Normal 3.8-11.6 [facility] Comment on above: Performed By: #### T 4F, CMP, LDH, TSH3, CBC #### [facility] [address] [place] [address] [place] #### ACTH #### [facility] , Lymphocytes [#/volume] in Bl ood by Automated countOrdered By: Sly Benson on 01-20-2024 Lymphocytes (Bld) [#/Vol] 1.7 10*3/uL Normal 1.00-4.8 [facility] Comment on above: Performed By: #### T 4F, CMP, LDH, TSH3, CBC #### [facility] [address] [place] [address] [place] #### ACTH #### [facility] , Lymphocytes/100 leukocytes i n Blood by Automated countOrdered By: Sly Benson on 01-20-2024 Lymphocytes/100 WBC (Bld) 18.2 % Normal . [facility] Comment on above: Performed By: #### T 4F, CMP, LDH, TSH3, CBC #### [facility] [address] [place] [address] [place] #### ACTH #### [facility] , MCH [Entitic mass] by Automa margot countOrdered By: Sly Benson on 01-20-2024 MCH (RBC) [Entitic mass] 30.5 pg Normal 24.7-34.3 [facility] Comment on above: Performed By: #### T 4F, CMP, LDH, TSH3, CBC #### [facility] [address] [place] [address] [place] #### ACTH #### [facility] , MCHC Auto (RBC) [Mass/Vol]Or dered By: Sly Benson on 01-20-2024 MCHC (RBC) [Mass/Vol] 33.7 g/dL 32.0-35.0 [facility] MCV [Entitic volume] by Auto mated countOrdered By: Sly Benson on 01-20-2024 MCV (RBC) [Entitic vol] 90.4 fL Normal 80-100 [facility] Comment on above: Performed By: #### T 4F, CMP, LDH, TSH3, CBC #### [facility] [address] [place] [address] #### ACTH #### [facility] , Neutrophils [#/volume] in Bl ood by Automated countOrdered By: Sly Benson on 01-20-2024 Neutrophils (Bld) [#/Vol] 6.6 10*3/uL Normal 1.8-7.7 [facility] Comment on above: Performed By: #### T 4F, CMP, LDH, TSH3, CBC #### [facility] [address] [place] [address] [place] #### ACTH #### [facility] , No Panel InformationOrdered By: Sly Benson on 01-20-2024 Adrenocorticotropic Hormone 21.6 pg/mL 7.2-63.3 [facility] Comment on above: ACTH reference inter jamel for samples collected between 7 and10 AM.Performed at: [facility] [address] [id number] Director: Coleman Lacy PhD, Phone: [phone] Estimated GFR (CKD-EPI) > 60.0 mL/Min [facility] Creatinine Clearance (Chem 58.76 [facility] Nucleated erythrocytes [Pres ence] in Blood by Automated countOrdered By: Sly Benson on 01-20-2024 Nucleated RBC Auto Ql (Bld) 0.0 /100{WBC} 0-0.5 [facility] Platelet mean volume [Entiti c volume] in Blood by Automated countOrdered By: Sly Benson on 01-20-2024 Platelet mean volume (Bld) [Entitic vol] 7.3 fL Normal 6.3-10.7 [facility] Comment on above: Performed By: #### T 4F, CMP, LDH, TSH3, CBC #### [facility] [address] [place] [address] [place] #### ACTH #### [facility] , Platelets [#/volume] in Bloo d by Automated countOrdered By: Sly Benson on 01-20-2024 Platelets (Bld) [#/Vol] 182 10*3/uL Normal 150-450 [facility] Comment on above: Performed By: #### T 4F, CMP, LDH, TSH3, CBC #### [facility] [address] [place] [address] [place] #### ACTH #### [facility] , Potassium [Moles/volume] in Serum or PlasmaOrdered By: Sly Benson on 01-20-2024 Potassium [Moles/Vol] 3.6 mmol/L Normal 3.5-5.1 [facility] Comment on above: Performed By: #### T 4F, CMP, LDH, TSH3, CBC #### [facility] [address] [place] [address] [place] #### ACTH #### [facility] , Protein [Mass/volume] in Ser um or PlasmaOrdered By: Sly Benson on 01-20-2024 Protein [Mass/Vol] 6.9 g/dL Normal 6.4-8.9 [facility] Comment on above: Performed By: #### T 4F, CMP, LDH, TSH3, CBC #### [facility] [address] [place] [address] [place] #### ACTH #### [facility] , Serum globulin measurement b y calculation (mass/volume)Ordered By: Sly Benson on 01-20-2024 Globulin (S) [Mass/Vol] 2.9 g/dL [facility] Comment on above: Performed By: #### T 4F, CMP, LDH, TSH3, CBC #### [facility] [address] [place] [address] [place] #### ACTH #### [facility] , Serum or plasma albumin/glob ulin mass ratioOrdered By: Sly Benson on 01-20-2024 Albumin/Globulin [Mass ratio] 1.4 {ratio} [facility] Comment on above: Performed By: #### T 4F, CMP, LDH, TSH3, CBC #### [address] #### ACTH #### [facility] , Serum or plasma anion gap de terminationOrdered By: Sly Benson on 01-20-2024 Anion gap [Moles/Vol] 11.5 mmol/L Normal 6.0-15.0 [facility] Comment on above: Performed By: #### T 4F, CMP, LDH, TSH3, CBC #### [facility] [address] [place] [address] [place] #### ACTH #### [facility] , Sodium [Moles/volume] in Ser um or PlasmaOrdered By: Sly Benson on 01-20-2024 Sodium [Moles/Vol] 139 mmol/L Normal 136-145 [facility] Comment on above: Performed By: #### T 4F, CMP, LDH, TSH3, CBC #### [facility] [address] [place] [address] [place] #### ACTH #### [facility] , Thyrotropin [Units/volume] i n Serum or PlasmaOrdered By: Sly Benson on 01-20-2024 TSH Qn 2.04 m[IU]/L Normal 0.45-5.33 [facility] Comment on above: Result Comment: PERF ORMED BY: [place] [address] PATHOLOGIST DEGREE CLERK WAYLON SAUNDERS M.D. Performed By: #### T 4F, CMP, LDH, TSH3, CBC #### [facility] [address] [place] [address] [place] #### ACTH #### [facility] , Thyroxine (T4) free [Mass/vo lume] in Serum or PlasmaOrdered By: Sly Benson on 01-20-2024 Free T4 [Mass/Vol] 1.16 ng/dL High 0.61-1.12 [facility] Comment on above: Performed By: #### T 4F, CMP, LDH, TSH3, CBC #### [facility] [address] [place] [address] [place] #### ACTH #### [facility] , Urea nitrogen [Mass/volume] in Serum or PlasmaOrdered By: Sly Benson on 01-20-2024 Urea nitrogen [Mass/Vol] 19 mg/dL Normal 7-25 [facility] Comment on above: Performed By: #### T 4F, CMP, LDH, TSH3, CBC #### [facility] [address] [place] [address] [place] #### ACTH #### [facility] , XR Wrist - left 3 ViewsOrder ed By: Caty Gaona on 2023 Radiology Study observation (narrative) [facility] XR Wrist - left 3 ViewsOrder ed By: Caty Gaona on 10-01-2023 [facility] Basic Metabolic Panelon Anion gap [Moles/Vol] 7 mmol/L 5 - 15 mmol/L [facility] Calcium [Mass/Vol] 9.5 mg/dL 8.5 - 10. 5 mg/dL [facility] Chloride [Moles/Vol] 101 mmol/L 98 - 10 9 mmol/L [facility] CO2 [Moles/Vol] 32 mmol/L 22 - 32 mmol/L [facility] Creatinine [Mass/Vol] 0.96 mg/dL 0.40 - 1.00 mg/dL [facility] Comment on above: METHOD TRACEABLE TO [facility] STANDARD eGFR (CKD-EPI)non-race dependent 61 - PINF [facility] Comment on above: Reported eGFR is based on the CKD-EPI 2020 equation that does not use a race coefficient. Glucose [Mass/Vol] 107 mg/dL High 65 - 99 mg/dL [facility] Interpretation and review of laboratory results Abnormal [facility] Potassium [Moles/Vol] 3.3 mmol/L Low 3.5 - 5.0 mmol/L [facility] Sodium [Moles/Vol] 140 mmol/L 134 - 146 mmol/L [facility] Urea nitrogen [Mass/Vol] 22 mg/dL 5 - 27 mg/dL [facility] CBC without diffon 4 Erythrocyte distribution width (RBC) [Ratio] 13.9 % 11.5 - 15.0 % [facility] Hematocrit (Bld) [Volume fraction] 39.4 % 35 - 47 % [facility] Hemoglobin (Bld) [Mass/Vol] 13.5 g/dL 11.7 - 15.5 g/dL [facility] MCH (RBC) [Entitic mass] 30.4 pg 27 - 34 pg [facility] MCHC (RBC) [Mass/Vol] 34.2 g/dL 32 - 3 6 g/dL [facility] MCV (RBC) [Entitic vol] 89 fL 80 - 100 fL [facility] Platelet mean volume (Bld) [Entitic vol] 7.9 fL 7 - 12 fL [facility] Platelets (Bld) [#/Vol] 202 10*3/uL [facility] RBC (Bld) [#/Vol] 4.43 10*6/uL [facility] WBC corrected for nucl RBC Auto (Bld) [#/Vol] 6.6 [facility] Lipid 1996 panelon 4 Cholesterol [Mass/Vol] 154 mg/dL 150 - 200 mg/dL [facility] Cholesterol in HDL [Mass/Vol] 76 mg/dL 39 - PINF mg/dL [facility] Comment on above: HDL <40 mg/dL - High Risk HDL > or = 40mg/dL- Desirable HDL >60 mg/dL - Negative Risk Cholesterol in LDL [Mass/Vol] 52 mg/dL NINF - 130 mg/dL [facility] Comment on above: LDL <100 mg/dL - Desirable LDL >160 mg/dL - High Risk Cholesterol in VLDL [Mass/Vol] 26 mg/dL 0 - 30 mg/dL [facility] Cholesterol.total/Chol esterol in HDL [Mass ratio] 2.0 {ratio} 1.0 - 5.0 [facility] Triglyceride [Mass/Vol] 132 mg/dL 27 - 150 mg/dL [facility] Magnesiumon 09-15-2023 Magnesium [Mass/Vol] 1.9 mg/dL 1.8 - 2 .6 mg/dL [facility] No Panel Informationon 09-14 [facility] Parathyrin.intact [Mass/Vol] on 09-15-2023 [facility] Parathyroid Hormone, intacto n 09-15-2023 Parathyrin.intact [Mass/Vol] 36 pg/mL 12 - 88 pg/mL [facility] Phosphoruson 09-15-2023 Phosphate [Mass/Vol] 3.6 mg/dL 2.4 - 4 .9 mg/dL [facility] Uric acidon 09-15-2023 Urate [Mass/Vol] 5.4 mg/dL 2.6 - 7.2 mg/dL [facility] Vitamin D 25 hydroxyon 09-14 Vitamin D+Metabolites [Mass/Vol] 28.4 ng/mL Low 30 - 100 ng/mL [facility] Comment on above: Vitamin D status 25 OH Vitamin D Deficiency <20 ng/mL Insufficiency 20-29 ng/mL Sufficiency 30-100 ng/mL Toxicity >100 ng/mL NOTE: A pediatric reference range has not been established by the aoc director intelligence officer of this kit. The [place] [employer] recommends a Vitamin D level of = or >20ng/mL in infants and children. Vitamin D+Metabolites [Mass/ Vol]on 09-15-2023 Interpretation and review of laboratory results Abnormal [facility] Complete Blood Count Auto Di ffon 08-07-2023 Basophils (Bld) [#/Vol] 0.0 10*3/uL Normal 0.0-0.2 [facility] Comment on above: Result Comment: PERF ORMED BY: [place] [address] PATHOLOGIST DEGREE CLERK WAYLON SAUDNERS M.D. Performed By: #### R EDRAW LDH, REDRAW K #### [address] Basophils/100 WBC (Bld) 0.5 % Normal . [facility] Comment on above: Performed By: #### R EDRAW LDH, REDRAW K #### [address] Eosinophils (Bld) [#/Vol] 0.0 10*3/uL Normal 0.0-0.45 [facility] Comment on above: Performed By: #### R EDRAW LDH, REDRAW K #### [place] [address] [place] Eosinophils/100 WBC (Bld) 0.1 % Normal . [facility] Comment on above: Performed By: #### R EDRAW LDH, REDRAW K #### [address] Erythrocyte distribution width (RBC) [Ratio] 13.6 % Normal 11.9-15.3 [facility] Comment on above: Performed By: #### R EDRAW LDH, REDRAW K #### [address] Hematocrit (Bld) [Volume fraction] 37.0 % Normal 34.0-46.4 [facility] Comment on above: Performed By: #### R EDRAW LDH, REDRAW K #### [address] Hemoglobin (Bld) [Mass/Vol] 12.8 g/dL Normal 11.8-15.4 [facility] Comment on above: Performed By: #### R EDRAW LDH, REDRAW K #### [address] Lymphocytes (Bld) [#/Vol] 1.1 10*3/uL Normal 1.00-4.8 [facility] Comment on above: Performed By: #### R EDRAW LDH, REDRAW K #### [address] Lymphocytes/100 WBC (Bld) 13.9 % Normal . [facility] Comment on above: Performed By: #### R EDRAW LDH, REDRAW K #### [address] MCH (RBC) [Entitic mass] 30.2 pg Normal 24.7-34.3 [facility] Comment on above: Performed By: #### R EDRAW LDH, REDRAW K #### [address] MCV (RBC) [Entitic vol] 87.3 fL Normal 80-100 [facility] Comment on above: Performed By: #### R EDRAW LDH, REDRAW K #### [address] Mean Corpuscular HGB Conc 34.6 g/dL Normal 32.0-35.0 [facility] Comment on above: Performed By: #### R EDRAW LDH, REDRAW K #### [place] [id number] [place] Monocytes (Bld) [#/Vol] 0.5 10*3/uL Normal 0.0-0.8 [facility] Comment on above: Performed By: #### R EDRAW LDH, REDRAW K #### [place] [address] [place] Monocytes/100 WBC (Bld) 6.4 % Normal . [facility] Comment on above: Performed By: #### R EDRAW LDH, REDRAW K #### [place] [address] [place] Neutrophils (Bld) [#/Vol] 6.0 10*3/uL Normal 1.8-7.7 [facility] Comment on above: Performed By: #### R EDRAW LDH, REDRAW K #### [address] Neutrophils/100 WBC (Bld) 79.1 % Normal . [facility] Comment on above: Performed By: #### R EDRAW LDH, REDRAW K #### [place] [address] [place] NRBC% 0.0 /100{WBC} Normal 0-0.5 [facility] Comment on above: Performed By: #### R EDRAW LDH, REDRAW K #### [address] Platelet mean volume (Bld) [Entitic vol] 7.3 fL Normal 6.3-10.7 [facility] Comment on above: Performed By: #### R EDRAW LDH, REDRAW K #### [place] [address] [place] Platelets (Bld) [#/Vol] 202 10*3/uL Normal 150-450 [facility] Comment on above: Performed By: #### R EDRAW LDH, REDRAW K #### [place] [address] [place] RBC (Bld) [#/Vol] 4.24 10*6/uL Normal 3.60-5.00 [facility] Comment on above: Performed By: #### R EDRAW LDH, REDRAW K #### [address] WBC (Bld) [#/Vol] 7.6 10*3/uL Normal 3.8-11.6 [facility] Comment on above: Performed By: #### R EDRAW LDH, REDRAW K #### [address] Adrenocorticotropic Hormone PLon 08-06-[address] 21.1 pg/mL Normal 7.2-63.3 [facility] Comment on above: Result Comment: ACTH reference interval for samples collected between 7 and 10 AM. Performed at: [facility] [address] [id number] Boilermaker Mechanic: Coleman Lacy PhD, Phone: [phone] PERFORMED BY: [place] [address] PATHOLOGIST DEGREE CLERK WAYLON SAUNDERS M.D. Performed By: #### R EDRAW LDH, REDRAW K #### [address] Alanine aminotransferase [En zymatic activity/volume] in Serum or PlasmaOrdered By: Sly Benson on 08-06-2023 ALT [Catalytic activity/Vol] 23 U/L Normal 7-52 [facility] Comment on above: Performed By: #### T SH3, T4F, LDH, CMP #### [address] Albumin [Mass/volume] in Ser um or Plasma by Bromocresol green (BCG) dye binding methoOrdered By: Sly Benson on 08-06-2023 Albumin BCG dye [Mass/Vol] 4.0 g/dL 3.5-5.7 [facility] Alkaline phosphatase [Enzyma tic activity/volume] in Serum or PlasmaOrdered By: Sly Benson on 08-06-2023 ALP [Catalytic activity/Vol] 95 U/L Normal 34-104 [facility] Comment on above: Performed By: #### T SH3, T4F, LDH, CMP #### [facility] [address] [place] [address] Aspartate aminotransferase [ Enzymatic activity/volume] in Serum or PlasmaOrdered By: Sly Benson on 08-06-2023 AST [Catalytic activity/Vol] 29 U/L Normal 13-39 [facility] Comment on above: Performed By: #### T SH3, T4F, LDH, CMP #### [facility] [address] [place] [address] Bilirubin.total [Mass/volume ] in Serum or PlasmaOrdered By: Sly Benson on 08-06-2023 Bilirubin [Mass/Vol] 0.6 mg/dL Normal 0.3-1.0 [facility] Comment on above: Performed By: #### T SH3, T4F, LDH, CMP #### [address] abdomen pelvis w conon CT abdomen pelvis w con [facility] [place] [address] [place] [address] CT Scan Report Signed Patient: Theresa Luu MR#: [id number] : 1945 Acct:[id number] Age/Sex: 77 / F ADM Date: 08/06/23 Loc: Room: Type: [facility] Attending Dr: Sly Benson II DO Copies to: Sly Benson II, DO Ordering Provider: Sly Benson II, DO Date of Service: 08/06/23 CT/CT abdomen pelvis w con: surveillance ([id number]) CT/CT chest w con: surveillance CT CHEST, [...] Monroe Jr., D.O.08/06/2023 2:43 PM Dictation Location: [place] [address] Transcribed By: [facility] 08/06/23 1443 Dictated By: Sylvain Monroe Jr, DO 08/06/23 1430 Signed By: 08/06/23 1443 Normal [facility] Calcium [Mass/volume] in Ser um or PlasmaOrdered By: Sly Benson on 08-06-2023 Calcium [Mass/Vol] 9.2 mg/dL Normal 8.6-10.3 [facility] Comment on above: Performed By: #### T SH3, T4F, LDH, CMP #### [facility] [address] [place] [address] Carbon dioxide, total [Moles /volume] in Serum or PlasmaOrdered By: Sly Benson on 08-06-2023 CO2 [Moles/Vol] 30.5 mmol/L Normal 21.0-31.0 [facility] Comment on above: Performed By: #### T SH3, T4F, LDH, CMP #### [address] Chloride [Moles/volume] in S mellissa or PlasmaOrdered By: Sly Benson on 08-06-2023 Chloride [Moles/Vol] 104 mmol/L Normal 98-107 [facility] Comment on above: Performed By: #### T SH3, T4F, LDH, CMP #### [address] Comprehensive Metabolic Pane eileen 08-06-2023 Albumin [Mass/Vol] 4.0 g/dL Normal 3.5-5.7 [facility] Comment on above: Performed By: #### T SH3, T4F, LDH, CMP #### [address] Anion gap [Moles/Vol] Not performed Normal 6.0-15.0 [facility] Comment on above: Performed By: #### T SH3, T4F, LDH, CMP #### [address] Creatinine Clr Calc Pharmacy 57.70 Normal [facility] Comment on above: Performed By: #### T SH3, T4F, LDH, CMP #### [address] GFR/1.73 sq M.predicted MDRD (S/P/Bld) [Vol rate/Area] mL/min/{1.73_m2} Normal [facility] Comment on above: Performed By: #### T SH3, T4F, LDH, CMP #### [address] Potassium Normal 3.5-5.1 [facility] Comment on above: Result Comment: Spec imen hemolyzed, redraw requested Performed By: #### T SH3, T4F, LDH, CMP #### [facility] [place] [address] [place] [address] [place] Creatinine [Mass/volume] in Serum or PlasmaOrdered By: Sly Benson on 08-06-2023 Creatinine [Mass/Vol] 0.87 mg/dL Normal 0.60-1.20 [facility] Comment on above: Performed By: #### T SH3, T4F, LDH, CMP #### [facility] [address] [place] [address] [place] Glucose [Mass/volume] in Ser um or PlasmaOrdered By: Sly Benson on 08-06-2023 Glucose [Mass/Vol] 95 mg/dL Normal 70-100 [facility] Comment on above: ADA recommended refe rence rangeRandom Glucose Reference Range is dependent on time and content of last meal. Glucose of more than 200 mg/dL in a nonstressed, ambulatory subject supports the diagnosis of Diabetes Mellitus. Result Comment: [place] om Glucose Reference Range is dependent on time and content of last meal. Glucose of more than 200 mg/dL in a nonstressed, ambulatory subject supports the diagnosis of Diabetes Mellitus. ADA recommended reference range Performed By: #### T SH3, T4F, LDH, CMP #### [facility] [address] LDH Lactate Dehydrogenaseon 08-06-2023 LDH Lactate Dehydrogenase Normal 140-271 [facility] Comment on above: Result Comment: Spec imen hemolyzed, redraw requested Performed By: #### R EDRAW LDH, REDRAW K #### [facility] [address] [place] [id number] [place] Lactate dehydrogenase [Enzym atic activity/volume] in Serum or Plasma by Lactate to pyOrdered By: Sly Benson on 08-06-2023 LDH Lactate to pyruvate reaction [Catalytic activity/Vol] 173 U/L 140-271 [facility] No Panel InformationOrdered By: Sly Benson on 08-06-2023 Estimated GFR (CKD-EPI) > 60.0 mL/Min [facility] Creatinine Clearance (Chem 57.70 [facility] Potassium [Moles/volume] in Serum or PlasmaOrdered By: Sly Benson on 08-06-2023 Potassium [Moles/Vol] 3.6 mmol/L Normal 3.5-5.1 [facility] Comment on above: Order Comment: SPECI MEN HEMOLYZED. NOTIFIED CHON. Performed By: #### R EDRAW LDH, REDRAW K #### [address] Protein [Mass/volume] in Ser um or PlasmaOrdered By: Sly Benson on 08-06-2023 Protein [Mass/Vol] 7.0 g/dL Normal 6.4-8.9 [facility] Comment on above: Performed By: #### T SH3, T4F, LDH, CMP #### [address] Redraw LDHon 08-06-2023 Redraw LDH 173 U/L Normal 140-271 [facility] Comment on above: Order Comment: SPECI MEN HEMOLYZED. NOTIFIED CHON. Result Comment: PERF ORMED BY: [place] [address] PATHOLOGIST DEGREE CLERK WAYLON SAUNDERS M.D. Performed By: #### R EDRAW LDH, REDRAW K #### [address] Serum globulin measurement b y calculation (mass/volume)Ordered By: Sly Benson on 08-06-2023 Globulin (S) [Mass/Vol] 3.0 g/dL [facility] Comment on above: Performed By: #### T SH3, T4F, LDH, CMP #### [address] Serum or plasma albumin/glob ulin mass ratioOrdered By: Sly Benson on 08-06-2023 Albumin/Globulin [Mass ratio] 1.3 {ratio} [facility] Comment on above: Performed By: #### T SH3, T4F, LDH, CMP #### [address] Serum or plasma anion gap de terminationOrdered By: Sly Benson on 08-06-2023 Anion gap [Moles/Vol] TNP [facility] Comment on above: Test not performed Sodium [Moles/volume] in Ser um or PlasmaOrdered By: Sly Benson on 08-06-2023 Sodium [Moles/Vol] 141 mmol/L Normal 136-145 [facility] Comment on above: Performed By: #### T SH3, T4F, LDH, CMP #### [address] Thyrotropin [Units/volume] i n Serum or PlasmaOrdered By: Sly Benson on 08-06-2023 TSH Qn 2.81 m[IU]/L Normal 0.45-5.33 [facility] Comment on above: Result Comment: PERF ORMED BY: [place] [address] PATHOLOGIST DEGREE CLERK WAYLON SAUNDERS M.D. Performed By: #### R EDRAW LDH, REDRAW K #### [address] Thyroxine (T4) free [Mass/vo lume] in Serum or PlasmaOrdered By: Sly Benson on 08-06-2023 Free T4 [Mass/Vol] 1.13 ng/dL High 0.61-1.12 [facility] Comment on above: Performed By: #### R EDRAW LDH, REDRAW K #### [place] [address] [place] Urea nitrogen [Mass/volume] in Serum or PlasmaOrdered By: Sly Benson on 08-06-2023 Urea nitrogen [Mass/Vol] 23 mg/dL Normal 02-03 [facility] Comment on above: Performed By: #### T SH3, T4F, LDH, CMP #### [place] [address] [place] Alanine aminotransferase [En zymatic activity/volume] in Serum or PlasmaOrdered By: Sly Benson on 03-05-2023 ALT [Catalytic activity/Vol] 22 U/L 7-52 [facility] Albumin [Mass/volume] in Ser um or Plasma by Bromocresol green (BCG) dye binding methoOrdered By: Sly Benson on 03-05-2023 Albumin BCG dye [Mass/Vol] 4.1 g/dL 3.5-5.7 [facility] Alkaline phosphatase [Enzyma tic activity/volume] in Serum or PlasmaOrdered By: Sly Benson on 03-05-2023 ALP [Catalytic activity/Vol] 106 U/L 34-104 [facility] Aspartate aminotransferase [ Enzymatic activity/volume] in Serum or PlasmaOrdered By: Sly Benson on 03-05-2023 AST [Catalytic activity/Vol] 23 U/L 13-39 [facility] Basophils Auto (Bld) [#/Vol] Ordered By: Sly Benson on 03-05-2023 Basophils (Bld) [#/Vol] 0.0 10*3/uL 0.0-0.2 [facility] Basophils/100 WBC Auto (Bld) Ordered By: Sly Benson on 03-05-2023 Basophils/100 WBC (Bld) 0.8 % . [facility] Bilirubin.total [Mass/volume ] in Serum or PlasmaOrdered By: Sly Benson on 03-05-2023 Bilirubin [Mass/Vol] 0.6 mg/dL 0.3-1.0 [facility] Calcium [Mass/volume] in Ser um or PlasmaOrdered By: Sly Benson on 03-05-2023 Calcium [Mass/Vol] 9.4 mg/dL 8.6-10.3 [facility] Carbon dioxide, total [Moles /volume] in Serum or PlasmaOrdered By: Sly Benson on 03-05-2023 CO2 [Moles/Vol] 28.0 mmol/L 21.0-31.0 [facility] Chloride [Moles/volume] in S mellissa or PlasmaOrdered By: Sly Benson on 03-05-2023 Chloride [Moles/Vol] 104 mmol/L 98-107 [facility] Creatinine [Mass/volume] in Serum or PlasmaOrdered By: Sly Benson on 03-05-2023 Creatinine [Mass/Vol] 0.91 mg/dL 0.60-1.20 [facility] Eosinophils Auto (Bld) [#/Vo l]Ordered By: Sly Benson on 03-05-2023 Eosinophils (Bld) [#/Vol] 0.1 10*3/uL 0.0-0.45 [facility] Eosinophils/100 WBC Auto (Bl d)Ordered By: Sly Benson on 03-05-2023 Eosinophils/100 WBC (Bld) 1.7 % . [facility] Erythrocyte distribution wid th Auto (RBC) [Ratio]Ordered By: Sly Benson on 03-05-2023 Erythrocyte distribution width (RBC) [Ratio] 14.3 % 11.9-15.3 [facility] Globulin Calc (S) [Mass/Vol] Ordered By: Sly Benson on 03-05-2023 Globulin (S) [Mass/Vol] 2.8 g/dL [facility] Glucose [Mass/volume] in Ser um or PlasmaOrdered By: Sly Benson on 03-05-2023 Glucose [Mass/Vol] 102 mg/dL 70-100 [facility] Comment on above: ADA recommended refe rence rangeRandom Glucose Reference Range is dependent on time and content of last meal. Glucose of more than 200 mg/dL in a nonstressed, ambulatory subject supports the diagnosis of Diabetes Mellitus. Hematocrit Auto (Bld) [Volum e fraction]Ordered By: Sly Benson on 03-05-2023 Hematocrit (Bld) [Volume fraction] 39.8 % 34.0-46.4 [facility] Hemoglobin [Mass/volume] in BloodOrdered By: Sly Benson on 03-05-2023 Hemoglobin (Bld) [Mass/Vol] 13.6 g/dL 11.8-15.4 [facility] Lactate dehydrogenase [Enzym atic activity/volume] in Serum or Plasma by Lactate to pyOrdered By: Sly Benson on 03-05-2023 LDH Lactate to pyruvate reaction [Catalytic activity/Vol] 197 U/L 140-271 [facility] Leukocytes [#/volume] correc margot for nucleated erythrocytes in Blood by Automated counOrdered By: Sly Benson on 03-05-2023 WBC corrected for nucl RBC Auto (Bld) [#/Vol] 6.3 10*3/uL 3.8-11.6 [facility] Lymphocytes Auto (Bld) [#/Vo l]Ordered By: Sly Benson on 03-05-2023 Lymphocytes (Bld) [#/Vol] 1.4 10*3/uL 1.00-4.8 [facility] Lymphocytes/100 WBC Auto (Bl d)Ordered By: Sly Benson on 03-05-2023 Lymphocytes/100 WBC (Bld) 23.1 % . [facility] MCH Auto (RBC) [Entitic mass ]Ordered By: Sly Benson on 03-05-2023 MCH (RBC) [Entitic mass] 30.2 pg 24.7-34.3 [facility] MCHC Auto (RBC) [Mass/Vol]Or dered By: Sly Benson on 03-05-2023 MCHC (RBC) [Mass/Vol] 34.3 g/dL 32.0-35.0 [facility] MCV Auto (RBC) [Entitic vol] Ordered By: Sly Benson on 03-05-2023 MCV (RBC) [Entitic vol] 88.1 fL 80-100 [facility] Monocytes Auto (Bld) [#/Vol] Ordered By: Sly Benson on 03-05-2023 Monocytes (Bld) [#/Vol] 0.5 10*3/uL 0.0-0.8 [facility] Monocytes/100 WBC Auto (Bld) Ordered By: Sly Benson on 03-05-2023 Monocytes/100 WBC (Bld) 8.4 % . [facility] Neutrophils Auto (Bld) [#/Vo l]Ordered By: Sly Benson on 03-05-2023 Neutrophils (Bld) [#/Vol] 4.1 10*3/uL 1.8-7.7 [facility] Neutrophils/100 WBC Auto (Bl d)Ordered By: Sly Benson on 03-05-2023 Neutrophils/100 WBC (Bld) 66.0 % . [facility] No Panel InformationOrdered By: Sly Benson on 03-05-2023 Adrenocorticotropic Hormone 25.6 pg/mL 7.2-63.3 [facility] Comment on above: ACTH reference inter jamel for samples collected between 7 and10 AM.Performed at: [employer] [address] [id number] Director: Coleman Lacy PhD, Phone: [phone] Estimated GFR (CKD-EPI) > 60.0 mL/Min [facility] Creatinine Clearance (Chem 54.20 [facility] Nucleated erythrocytes [Pres ence] in Blood by Automated countOrdered By: Sly Benson on 03-05-2023 Nucleated RBC Auto Ql (Bld) 0.0 /100{WBC} 0-0.5 [facility] Platelet mean volume Auto (B ld) [Entitic vol]Ordered By: Sly Benson on 03-05-2023 Platelet mean volume (Bld) [Entitic vol] 7.2 fL 6.3-10.7 [facility] Platelets Auto (Bld) [#/Vol] Ordered By: Sly Benson on 03-05-2023 Platelets (Bld) [#/Vol] 190 10*3/uL 150-450 [facility] Potassium [Moles/volume] in Serum or PlasmaOrdered By: Sly Benson on 03-05-2023 Potassium [Moles/Vol] 3.8 mmol/L 3.5-5.1 [facility] Protein [Mass/volume] in Ser um or PlasmaOrdered By: Sly Benson on 03-05-2023 Protein [Mass/Vol] 6.9 g/dL 6.4-8.9 [facility] RBC Auto (Bld) [#/Vol]Ordere d By: Sly Benson on 03-05-2023 RBC (Bld) [#/Vol] 4.51 10*6/uL 3.60-5.00 [facility] Serum or plasma albumin/glob ulin mass ratioOrdered By: Sly Benson on 03-05-2023 Albumin/Globulin [Mass ratio] 1.5 {ratio} [facility] Serum or plasma anion gap de terminationOrdered By: Sly Benson on 03-05-2023 Anion gap [Moles/Vol] 12.8 mmol/L 6.0-15.0 [facility] Sodium [Moles/volume] in Ser um or PlasmaOrdered By: Sly Benson on 03-05-2023 Sodium [Moles/Vol] 141 mmol/L 136-145 [facility] Thyrotropin [Units/volume] i n Serum or PlasmaOrdered By: Sly Benson on 03-05-2023 TSH Qn 2.49 m[IU]/L 0.45-5.33 [facility] Thyroxine (T4) free [Mass/vo lume] in Serum or PlasmaOrdered By: Sly Benson on 03-05-2023 Free T4 [Mass/Vol] 0.94 ng/dL 0.61-1.12 [facility] Urea nitrogen [Mass/volume] in Serum or PlasmaOrdered By: Sly Benson on 03-05-2023 Urea nitrogen [Mass/Vol] 17 mg/dL 7-25 [facility] WBC Auto (Bld) [#/Vol]Ordere d By: Sly Benson on 03-05-2023 WBC (Bld) [#/Vol] 6.3 10*3/uL 3.8-11.6 [facility] Alanine aminotransferase [En zymatic activity/volume] in Serum or PlasmaOrdered By: Sly Benson on 12-30-2022 ALT [Catalytic activity/Vol] 24 U/L 7-52 [facility] Albumin [Mass/volume] in Ser um or Plasma by Bromocresol green (BCG) dye binding methoOrdered By: Sly Benson on 12-30-2022 Albumin BCG dye [Mass/Vol] 4.0 g/dL 3.5-5.7 [facility] Alkaline phosphatase [Enzyma tic activity/volume] in Serum or PlasmaOrdered By: Sly Benson on 12-30-2022 ALP [Catalytic activity/Vol] 108 U/L 34-104 [facility] Aspartate aminotransferase [ Enzymatic activity/volume] in Serum or PlasmaOrdered By: Sly Benson on 12-30-2022 AST [Catalytic activity/Vol] 22 U/L 13-39 [facility] Basophils Auto (Bld) [#/Vol] Ordered By: Sly Benson on 12-30-2022 Basophils (Bld) [#/Vol] 0.0 10*3/uL 0.0-0.2 [facility] Basophils/100 WBC Auto (Bld) Ordered By: Sly Benson on 12-30-2022 Basophils/100 WBC (Bld) 0.5 % . [facility] Bilirubin.total [Mass/volume ] in Serum or PlasmaOrdered By: Sly Benson on 12-30-2022 Bilirubin [Mass/Vol] 0.5 mg/dL 0.3-1.0 [facility] Calcium [Mass/volume] in Ser um or PlasmaOrdered By: Sly Benson on 12-30-2022 Calcium [Mass/Vol] 9.1 mg/dL 8.6-10.3 [facility] Carbon dioxide, total [Moles /volume] in Serum or PlasmaOrdered By: Sly Benson on 12-30-2022 CO2 [Moles/Vol] 30.7 mmol/L 21.0-31.0 [facility] Chloride [Moles/volume] in S mellissa or PlasmaOrdered By: Sly Benson on 12-30-2022 Chloride [Moles/Vol] 104 mmol/L 98-107 [facility] Creatinine [Mass/volume] in Serum or PlasmaOrdered By: Sly Benson on 12-30-2022 Creatinine [Mass/Vol] 0.92 mg/dL 0.60-1.20 [facility] Eosinophils Auto (Bld) [#/Vo l]Ordered By: Sly Benson on 12-30-2022 Eosinophils (Bld) [#/Vol] 0.1 10*3/uL 0.0-0.45 [facility] Eosinophils/100 WBC Auto (Bl d)Ordered By: Sly Benson on 12-30-2022 Eosinophils/100 WBC (Bld) 1.5 % . [facility] Erythrocyte distribution wid th Auto (RBC) [Ratio]Ordered By: Sly Benson on 12-30-2022 Erythrocyte distribution width (RBC) [Ratio] 13.6 % 11.9-15.3 [facility] Globulin Calc (S) [Mass/Vol] Ordered By: Sly Benson on 12-30-2022 Globulin (S) [Mass/Vol] 2.5 g/dL [facility] Glucose [Mass/volume] in Ser um or PlasmaOrdered By: Sly Benson on 12-30-2022 Glucose [Mass/Vol] 102 mg/dL 70-100 [facility] Comment on above: ADA recommended refe rence rangeRandom Glucose Reference Range is dependent on time and content of last meal. Glucose of more than 200 mg/dL in a nonstressed, ambulatory subject supports the diagnosis of Diabetes Mellitus. Hematocrit Auto (Bld) [Volum e fraction]Ordered By: Sly Benson on 12-30-2022 Hematocrit (Bld) [Volume fraction] 39.0 % 34.0-46.4 [facility] Hemoglobin [Mass/volume] in BloodOrdered By: Sly Benson on 12-30-2022 Hemoglobin (Bld) [Mass/Vol] 13.4 g/dL 11.8-15.4 [facility] Lactate dehydrogenase [Enzym atic activity/volume] in Serum or Plasma by Lactate to pyOrdered By: Sly Benson on 12-30-2022 LDH Lactate to pyruvate reaction [Catalytic activity/Vol] 211 U/L 140-271 [facility] Comment on above: Hemolysis is present at a level that could interfere with the result. Leukocytes [#/volume] correc margot for nucleated erythrocytes in Blood by Automated counOrdered By: Sly Benson on 12-30-2022 WBC corrected for nucl RBC Auto (Bld) [#/Vol] 6.8 10*3/uL 3.8-11.6 [facility] Lymphocytes Auto (Bld) [#/Vo l]Ordered By: Sly Benson on 12-30-2022 Lymphocytes (Bld) [#/Vol] 1.6 10*3/uL 1.00-4.8 [facility] Lymphocytes/100 WBC Auto (Bl d)Ordered By: Sly Benson on 12-30-2022 Lymphocytes/100 WBC (Bld) 24.0 % . [facility] MCH Auto (RBC) [Entitic mass ]Ordered By: Sly Benson on 12-30-2022 MCH (RBC) [Entitic mass] 30.0 pg 24.7-34.3 [facility] MCHC Auto (RBC) [Mass/Vol]Or dered By: Sly Benson on 12-30-2022 MCHC (RBC) [Mass/Vol] 34.3 g/dL 32.0-35.0 [facility] MCV Auto (RBC) [Entitic vol] Ordered By: Sly Benson on 12-30-2022 MCV (RBC) [Entitic vol] 87.4 fL 80-100 [facility] Monocytes Auto (Bld) [#/Vol] Ordered By: Sly Benson on 12-30-2022 Monocytes (Bld) [#/Vol] 0.6 10*3/uL 0.0-0.8 [facility] Monocytes/100 WBC Auto (Bld) Ordered By: Sly Benson on 12-30-2022 Monocytes/100 WBC (Bld) 9.0 % . [facility] Neutrophils Auto (Bld) [#/Vo l]Ordered By: Sly Benson on 12-30-2022 Neutrophils (Bld) [#/Vol] 4.4 10*3/uL 1.8-7.7 [facility] Neutrophils/100 WBC Auto (Bl d)Ordered By: Sly Benson on 12-30-2022 Neutrophils/100 WBC (Bld) 65.0 % . [facility] No Panel InformationOrdered By: Sly Benson on 12-30-2022 Adrenocorticotropic Hormone 28.9 pg/mL 7.2-63.3 [facility] Comment on above: ACTH reference inter jamel for samples collected between 7 and10 AM.Performed at: [facility] [id number] Director: Coleman Lacy PhD, Phone: [phone] Estimated GFR (CKD-EPI) > 60.0 mL/Min [facility] Creatinine Clearance (Chem 54.88 [facility] Nucleated erythrocytes [Pres ence] in Blood by Automated countOrdered By: Sly Benson on 12-30-2022 Nucleated RBC Auto Ql (Bld) 0.0 /100{WBC} 0-0.5 [facility] Platelet mean volume Auto (B ld) [Entitic vol]Ordered By: Sly Benson on 12-30-2022 Platelet mean volume (Bld) [Entitic vol] 7.4 fL 6.3-10.7 [facility] Platelets Auto (Bld) [#/Vol] Ordered By: Sly Benson on 12-30-2022 Platelets (Bld) [#/Vol] 171 10*3/uL 150-450 [facility] Potassium [Moles/volume] in Serum or PlasmaOrdered By: Sly Benson on 12-30-2022 Potassium [Moles/Vol] See comment 3.5-5.1 [facility] Comment on above: Specimen hemolyzed, redraw requested --- 12/30/22 1036 ---K previously reported as: 3.9 mmol/LHemolysis is present at a level that could interfere with the result. Protein [Mass/volume] in Ser um or PlasmaOrdered By: Sly Benson on 12-30-2022 Protein [Mass/Vol] 6.5 g/dL 6.4-8.9 [facility] RBC Auto (Bld) [#/Vol]Ordere d By: Sly Benson on 12-30-2022 RBC (Bld) [#/Vol] 4.46 10*6/uL 3.60-5.00 [facility] Serum or plasma albumin/glob ulin mass ratioOrdered By: Sly Benson on 12-30-2022 Albumin/Globulin [Mass ratio] 1.6 {ratio} [facility] Serum or plasma anion gap de terminationOrdered By: Sly Benson on 12-30-2022 Anion gap [Moles/Vol] TNP [facility] Comment on above: Test not performed-- - 12/30/22 1038 ---Gap previously reported as: 10.2 mEq/L Sodium [Moles/volume] in Ser um or PlasmaOrdered By: Sly Benson on 12-30-2022 Sodium [Moles/Vol] 141 mmol/L 136-145 [facility] Thyrotropin [Units/volume] i n Serum or PlasmaOrdered By: Sly Benson on 12-30-2022 TSH Qn 2.31 m[IU]/L 0.45-5.33 [facility] Thyroxine (T4) free [Mass/vo lume] in Serum or PlasmaOrdered By: Sly Benson on 12-30-2022 Free T4 [Mass/Vol] 1.03 ng/dL 0.61-1.12 [facility] Urea nitrogen [Mass/volume] in Serum or PlasmaOrdered By: Sly Benson on 12-30-2022 Urea nitrogen [Mass/Vol] 17 mg/dL 7-25 [facility] WBC Auto (Bld) [#/Vol]Ordere d By: Sly Benson on 12-30-2022 WBC (Bld) [#/Vol] 6.8 10*3/uL 3.8-11.6 [facility] Alanine aminotransferase [En zymatic activity/volume] in Serum or PlasmaOrdered By: Sly Benson on 10-31-2022 ALT [Catalytic activity/Vol] 22 U/L 7-52 [facility] Albumin [Mass/volume] in Ser um or Plasma by Bromocresol green (BCG) dye binding methoOrdered By: Sly Benson on 10-31-2022 Albumin BCG dye [Mass/Vol] 4.0 g/dL 3.5-5.7 [facility] Alkaline phosphatase [Enzyma tic activity/volume] in Serum or PlasmaOrdered By: Sly Benson on 10-31-2022 ALP [Catalytic activity/Vol] 98 U/L 34-104 [facility] Aspartate aminotransferase [ Enzymatic activity/volume] in Serum or PlasmaOrdered By: Sly Benson on 10-31-2022 AST [Catalytic activity/Vol] 28 U/L 13-39 [facility] Basophils Auto (Bld) [#/Vol] Ordered By: Sly Benson on 04-21-2023 Basophils (Bld) [#/Vol] 0.1 10*3/uL 0.0-0.2 [facility] Basophils/100 WBC Auto (Bld) Ordered By: Sly Benson on 10-31-2022 Basophils/100 WBC (Bld) 0.9 % . [facility] Bilirubin.total [Mass/volume ] in Serum or PlasmaOrdered By: Sly Benson on 10-31-2022 Bilirubin [Mass/Vol] 0.7 mg/dL 0.3-1.0 [facility] Calcium [Mass/volume] in Ser um or PlasmaOrdered By: Sly Benson on 10-31-2022 Calcium [Mass/Vol] 8.9 mg/dL 8.6-10.3 [facility] Carbon dioxide, total [Moles /volume] in Serum or PlasmaOrdered By: Sly Benson on 10-31-2022 CO2 [Moles/Vol] 28.6 mmol/L 21.0-31.0 [facility] Chloride [Moles/volume] in S mellissa or PlasmaOrdered By: Sly Benson on 10-31-2022 Chloride [Moles/Vol] 104 mmol/L 98-107 [facility] Creatinine [Mass/volume] in Serum or PlasmaOrdered By: Sly Benson on 10-31-2022 Creatinine [Mass/Vol] 0.93 mg/dL 0.60-1.20 [facility] Eosinophils Auto (Bld) [#/Vo l]Ordered By: Sly Benson on 10-31-2022 Eosinophils (Bld) [#/Vol] 0.1 10*3/uL 0.0-0.45 [facility] Eosinophils/100 WBC Auto (Bl d)Ordered By: Sly Benson on 10-31-2022 Eosinophils/100 WBC (Bld) 1.8 % . [facility] Erythrocyte distribution wid th Auto (RBC) [Ratio]Ordered By: Sly Benson on 10-31-2022 Erythrocyte distribution width (RBC) [Ratio] 15.0 % 11.9-15.3 [facility] Globulin Calc (S) [Mass/Vol] Ordered By: Sly Benson on 10-31-2022 Globulin (S) [Mass/Vol] 2.9 g/dL [facility] Glucose [Mass/volume] in Ser um or PlasmaOrdered By: Sly Benson on 10-31-2022 Glucose [Mass/Vol] 100 mg/dL 70-100 [facility] Comment on above: ADA recommended refe rence rangeRandom Glucose Reference Range is dependent on time and content of last meal. Glucose of more than 200 mg/dL in a nonstressed, ambulatory subject supports the diagnosis of Diabetes Mellitus. Hematocrit Auto (Bld) [Volum e fraction]Ordered By: Sly Benson on 10-31-2022 Hematocrit (Bld) [Volume fraction] 41.3 % 34.0-46.4 [facility] Hemoglobin [Mass/volume] in BloodOrdered By: Sly Benson on 10-31-2022 Hemoglobin (Bld) [Mass/Vol] 14.0 g/dL 11.8-15.4 [facility] Lactate dehydrogenase [Enzym atic activity/volume] in Serum or Plasma by Lactate to pyOrdered By: Sly Benson on 10-31-2022 LDH Lactate to pyruvate reaction [Catalytic activity/Vol] 226 U/L 140-271 [facility] Leukocytes [#/volume] correc margot for nucleated erythrocytes in Blood by Automated counOrdered By: Sly Benson on 10-31-2022 WBC corrected for nucl RBC Auto (Bld) [#/Vol] 6.8 10*3/uL 3.8-11.6 [facility] Lymphocytes Auto (Bld) [#/Vo l]Ordered By: Sly Benson on 10-31-2022 Lymphocytes (Bld) [#/Vol] 1.8 10*3/uL 1.00-4.8 [facility] Lymphocytes/100 WBC Auto (Bl d)Ordered By: Sly Benson on 10-31-2022 Lymphocytes/100 WBC (Bld) 26.5 % . [facility] MCH Auto (RBC) [Entitic mass ]Ordered By: Sly Benson on 10-31-2022 MCH (RBC) [Entitic mass] 29.7 pg 24.7-34.3 [facility] MCHC Auto (RBC) [Mass/Vol]Or dered By: Sly Benson on 10-31-2022 MCHC (RBC) [Mass/Vol] 33.8 g/dL 32.0-35.0 [facility] MCV Auto (RBC) [Entitic vol] Ordered By: Sly Benson on 10-31-2022 MCV (RBC) [Entitic vol] 87.8 fL 80-100 [facility] Monocytes Auto (Bld) [#/Vol] Ordered By: Sly Benson on 10-31-2022 Monocytes (Bld) [#/Vol] 0.8 10*3/uL 0.0-0.8 [facility] Monocytes/100 WBC Auto (Bld) Ordered By: Sly Benson on 10-31-2022 Monocytes/100 WBC (Bld) 11.2 % . [facility] Neutrophils Auto (Bld) [#/Vo l]Ordered By: Sly Benson on 10-31-2022 Neutrophils (Bld) [#/Vol] 4.0 10*3/uL 1.8-7.7 [facility] Neutrophils/100 WBC Auto (Bl d)Ordered By: Sly Benson on 10-31-2022 Neutrophils/100 WBC (Bld) 59.6 % . [facility] No Panel InformationOrdered By: Sly Benson on 10-31-2022 Adrenocorticotropic Hormone 35.2 pg/mL 7.2-63.3 [facility] Comment on above: ACTH reference inter jamel for samples collected between 7 and10 AM.Performed at: [facility] [id number] Director: Coleman Lacy PhD, Phone: [phone] Estimated GFR (CKD-EPI) > 60.0 mL/Min [facility] Creatinine Clearance (Chem 54.88 [facility] Nucleated erythrocytes [Pres ence] in Blood by Automated countOrdered By: Sly Benson on 10-31-2022 Nucleated RBC Auto Ql (Bld) 0.0 /100{WBC} 0-0.5 [facility] Platelet mean volume Auto (B ld) [Entitic vol]Ordered By: Sly Benson on 10-31-2022 Platelet mean volume (Bld) [Entitic vol] 7.1 fL 6.3-10.7 [facility] Platelets Auto (Bld) [#/Vol] Ordered By: Sly Benson on 10-31-2022 Platelets (Bld) [#/Vol] 201 10*3/uL 150-450 [facility] Potassium [Moles/volume] in Serum or PlasmaOrdered By: Sly Benson on 10-31-2022 Potassium [Moles/Vol] 3.8 mmol/L 3.5-5.1 [facility] Protein [Mass/volume] in Ser um or PlasmaOrdered By: Sly Benson on 10-31-2022 Protein [Mass/Vol] 6.9 g/dL 6.4-8.9 [facility] RBC Auto (Bld) [#/Vol]Ordere d By: Sly Benson on 10-31-2022 RBC (Bld) [#/Vol] 4.70 10*6/uL 3.60-5.00 [facility] Serum or plasma albumin/glob ulin mass ratioOrdered By: Sly Benson on 10-31-2022 Albumin/Globulin [Mass ratio] 1.4 {ratio} [facility] Serum or plasma anion gap de terminationOrdered By: Sly Benson on 10-31-2022 Anion gap [Moles/Vol] 12.2 mmol/L 6.0-15.0 [facility] Sodium [Moles/volume] in Ser um or PlasmaOrdered By: Sly Benson on 10-31-2022 Sodium [Moles/Vol] 141 mmol/L 136-145 [facility] Thyrotropin [Units/volume] i n Serum or PlasmaOrdered By: Sly Benson on 10-31-2022 TSH Qn 2.49 m[IU]/L 0.45-5.33 [facility] Thyroxine (T4) free [Mass/vo lume] in Serum or PlasmaOrdered By: Sly Benson on 10-31-2022 Free T4 [Mass/Vol] 1.02 ng/dL 0.61-1.12 [facility] Urea nitrogen [Mass/volume] in Serum or PlasmaOrdered By: Sly Benson on 10-31-2022 Urea nitrogen [Mass/Vol] 19 mg/dL 02-03 [facility] WBC Auto (Bld) [#/Vol]Ordere d By: Sly Benson on 10-31-2022 WBC (Bld) [#/Vol] 6.8 10*3/uL 3.8-11.6 [facility] ACTH, PLASMAon 10-04-2022 ACTH, Plasma 48.7 pg/mL Normal 7.2-63.3 [facility] Comment on above: Result Comment: ACTH reference interval for samples collected between 7 and 10 AM. Performed By: #### A CTHP #### [facility] [address] [place] [address] Dr. Alesia Meyers CBC AUTO DIFFon 10-03-2022 BASO # 0.1 103/ul Normal 0.0-0.1 [facility] Comment on above: Performed By: #### T SH, CMP, LDH #### [facility] [address] [address] [address] Alesia Meyers Basophils/100 WBC (Bld) 1.2 % Normal 0.2-2.0 [facility] Comment on above: Performed By: #### T SH, CMP, LDH #### [facility] [address] [address] [address] Alesia Meyers EO # 0.2 103/ul Normal 0.0-0.7 [facility] Comment on above: Performed By: #### T SH, CMP, LDH #### [facility] [address] [address] [address] Alesia Meyers Eosinophils/100 WBC (Bld) 2.5 % Normal 0.9-7.0 [facility] Comment on above: Performed By: #### T SH, CMP, LDH #### [facility] [address] [place] [address] Dr. Alesia Meyers Erythrocyte distribution width (RBC) [Ratio] 13.9 % Normal 11.0-15.0 [facility] Comment on above: Performed By: #### T SH, CMP, LDH #### [facility] [address] [place] [address] Dr. Alesia Meyers Hematocrit (Bld) [Volume fraction] 41.9 % Normal 36.0-48.0 [facility] Comment on above: Performed By: #### T SH, CMP, LDH #### [facility] [address] [place] [address] Dr. Alesia Meyers Hemoglobin (Bld) [Mass/Vol] 13.6 g/dL Normal 12.0-16.0 [facility] Comment on above: Performed By: #### T SH, CMP, LDH #### [facility] [address] [place] [address] Dr. Alesia Meyers IG # 0.04 10e3/ul Critically high 0.00-0.03 [facility] Comment on above: Performed By: #### T SH, CMP, LDH #### [facility] [address] [place] [address] Dr. Alesia Meyers IG % 0.7 % Critically high 0.0-0.5 [facility] Comment on above: Performed By: #### T SH, CMP, LDH #### [facility] [address] [place] [address] Dr. Alesia Meyers LYMPH # 2.1 103/ul Normal 1.2-3.8 [facility] Comment on above: Performed By: #### T SH, CMP, LDH #### [facility] [address] [place] [address] Dr. Alesia Meyers Lymphocytes/100 WBC (Bld) 35.5 % Normal 20.5-60.0 [facility] Comment on above: Performed By: #### T SH, CMP, LDH #### [facility] [address] [place] [address] Dr. Alesia Meyers MANUAL DIFF REQ NO Normal [facility] Comment on above: Performed By: #### T SH, CMP, LDH #### [facility] [address] [place] [address] Dr. Alesia Meyers MCH (RBC) [Entitic mass] 28.9 pg Normal 26.7-34.0 [facility] Comment on above: Performed By: #### T SH, CMP, LDH #### [facility] [address] [place] [address] Dr. Alesia Meyers MCHC (RBC) [Mass/Vol] 32.5 g/dL Normal 29.9-35.2 [facility] Comment on above: Performed By: #### T SH, CMP, LDH #### [facility] [address] [place] [address] Dr. Alesia Meyers MCV (RBC) [Entitic vol] 89.1 fL Normal 81.0-99.0 [facility] Comment on above: Performed By: #### T SH, CMP, LDH #### [facility] [address] [place] [address] Dr. Alesia Meyers MONO # 0.6 103/ul Normal 0.3-0.8 [facility] Comment on above: Performed By: #### T SH, CMP, LDH #### [facility] [address] [place] [address] Dr. Alesia Meyers Monocytes/100 WBC (Bld) 10.8 % Normal 1.7-12.0 [facility] Comment on above: Performed By: #### T SH, CMP, LDH #### [facility] [address] [place] [address] Dr. Alesia Meyers NEUT # 2.9 103/ul Normal 1.4-6.5 [facility] Comment on above: Performed By: #### T SH, CMP, LDH #### [facility] [address] [place] [address] Dr. Alesia Meyers Neutrophils/100 WBC (Bld) 49.3 % Normal 43.0-75.0 [facility] Comment on above: Performed By: #### T SH, CMP, LDH #### [facility] [address] [place] [address] Dr. Alesia Meyers Platelet mean volume (Bld) [Entitic vol] 8.8 fL Critically low 9.5-13.5 [facility] Comment on above: Performed By: #### T SH, CMP, LDH #### [facility] [address] [address] [address] Alesia Meyers PLT 226 103/ul Normal 150-450 [facility] Comment on above: Performed By: #### T SH, CMP, LDH #### [facility] [address] [address] [address] Alesia Meyers RBC 4.70 106/ul Normal 4.20-5.40 [facility] Comment on above: Performed By: #### T SH, CMP, LDH #### [facility] [address] [place] [address] Dr. Alesia Meyers WBC 5.9 103/ul Normal 4.0-11.0 [facility] Comment on above: Performed By: #### T SH, CMP, LDH #### [facility] [address] [place] [address] Dr. Alesia Meyers FREE T4on 10-03-2022 Free T4 [Mass/Vol] 1.02 ng/dL Normal 0.76-1.46 [facility] Comment on above: Performed By: #### F T4 #### [facility] [address] [place] [address] Dr. Alesia Meyers LDHon 10-03-2022 LDH 212 U/L Normal 81-234 [facility] Comment on above: Performed By: #### F T4 #### [facility] [address] [place] [address] Dr. Alesia Meyers PROF 14(COMP METB)on 023 Albumin [Mass/Vol] 3.5 g/dL Normal 3.4-5.0 [facility] Comment on above: Performed By: #### F T4 #### [facility] [address] [place] [address] Dr. Alesia Meyers Albumin/Globulin [Mass ratio] 1.1 {ratio} Normal [facility] Comment on above: Performed By: #### F T4 #### [facility] [address] [place] [address] Dr. Alesia Meyers ALP [Catalytic activity/Vol] 120 U/L Critically high 46-116 [facility] Comment on above: Performed By: #### F T4 #### [facility] [address] [address] [address] Alesia Meyers ALT [Catalytic activity/Vol] 37 U/L Normal 14-59 [facility] Comment on above: Performed By: #### F T4 #### [facility] [address] [address] [address] Alesia Meyers Anion gap [Moles/Vol] 11.4 mmol/L Normal Th e [facility] Comment on above: Performed By: #### F T4 #### [facility] [address] [address] [address] Alesia Meyers AST [Catalytic activity/Vol] 28 U/L Normal 15-37 [facility] Comment on above: Performed By: #### F T4 #### [facility] [address] [place] [address] Dr. Alesia Meyers Bilirubin [Mass/Vol] 0.4 mg/dL Normal 0.2-1.0 [facility] Comment on above: Performed By: #### F T4 #### [facility] [address] [place] [address] Dr. Alesia Meyers Calcium [Mass/Vol] 9.2 mg/dL Normal 8.5-10.1 [facility] Comment on above: Performed By: #### F T4 #### [facility] [address] [place] [address] Dr. Alesia Meyers Chloride [Moles/Vol] 105 mmol/L Normal 98-107 [facility] Comment on above: Performed By: #### F T4 #### [facility] [address] [place] [address] Dr. Alesia Meyers CO2 [Moles/Vol] 30.4 mmol/L Normal 21.0-32.0 [facility] Comment on above: Performed By: #### F T4 #### [facility] [address] [place] [address] Dr. Alesia Meyers Creatinine [Mass/Vol] 0.88 mg/dL Normal 0.55-1.02 [facility] Comment on above: Performed By: #### F T4 #### [facility] [address] [address] [address] Alesia Meyers EGFR-AF [facility] >60 Normal >=60 [facility] Comment on above: Performed By: #### F T4 #### [facility] [address] [address] [address] Alesia Meyers EGFR-NON AF [facility] >60 Normal >=60 [facility] Comment on above: Performed By: #### F T4 #### [facility] [address] [address] [address] Alesia Meyers Globulin (S) [Mass/Vol] 3.3 g/dL Normal [facility] Comment on above: Performed By: #### F T4 #### [facility] [address] [address] [address] Alesia Meyers Glucose [Mass/Vol] 104 mg/dL Normal 74-106 [facility] Comment on above: Performed By: #### F T4 #### [facility] [address] [address] [address] Alesia Meyers Potassium [Moles/Vol] 3.8 mmol/L Normal 3.5-5.1 [facility] Comment on above: Performed By: #### F T4 #### [facility] [address] [place] [address] Dr. Alesia Meyers Protein [Mass/Vol] 6.8 g/dL Normal 6.4-8.2 [facility] Comment on above: Performed By: #### F T4 #### [facility] [address] [address] [address] Alesia Meyers Sodium [Moles/Vol] 143 mmol/L Normal 136-145 [facility] Comment on above: Performed By: #### F T4 #### [facility] [address] [place] [address] Dr. Alesia Meyers Urea nitrogen [Mass/Vol] 19.0 mg/dL Critically high 7.0-18.0 [facility] Comment on above: Performed By: #### F T4 #### [facility] [address] [place] [address] Dr. Alesia Meyers Urea nitrogen/Creatinine [Mass ratio] 21.6 mg/mg Normal [facility] Comment on above: Performed By: #### F T4 #### [facility] [address] [place] [address] Dr. Alesia Meyers TSHon 10-03-2022 TSH 3.819 uIU/mL Critically high 0.358-3.74 0 [facility] Comment on above: Performed By: #### F T4 #### [facility] [address] [place] [address] Dr. Alesia Meyers ACTH, PLASMAon 09-06-2022 ACTH, Plasma 6.3 pg/mL Critically low 7.2-63.3 [facility] Comment on above: Result Comment: ACTH reference interval for samples collected between 7 and 10 AM. Performed By: #### T SH, CMP, LDH #### [facility] [address] [place] [address] Dr. Alesia Meyers CBC AUTO DIFFon 09-05-2022 BASO # 0.0 103/ul Normal 0.0-0.1 [facility] Comment on above: Performed By: #### T SH, CMP, LDH #### [facility] [address] [place] [address] Dr. Alesia Meyers Basophils/100 WBC (Bld) 0.3 % Normal 0.2-2.0 [facility] Comment on above: Performed By: #### T SH, CMP, LDH #### [facility] [address] [place] [address] Dr. Alesia Meyers EO # 0.1 103/ul Normal 0.0-0.7 [facility] Comment on above: Performed By: #### T SH, CMP, LDH #### [facility] [address] [place] [address] Dr. Alesia Meyers Eosinophils/100 WBC (Bld) 0.6 % Critically low 0.9-7.0 [facility] Comment on above: Performed By: #### T SH, CMP, LDH #### [facility] [address] [place] [address] Dr. Alesia Meyers Erythrocyte distribution width (RBC) [Ratio] 14.4 % Normal 11.0-15.0 [facility] Comment on above: Performed By: #### T SH, CMP, LDH #### [facility] [address] [place] [address] Dr. Alesia Meyers Hematocrit (Bld) [Volume fraction] 41.6 % Normal 36.0-48.0 [facility] Comment on above: Performed By: #### T SH, CMP, LDH #### [facility] [address] [place] [address] Dr. Alesia Meyers Hemoglobin (Bld) [Mass/Vol] 13.7 g/dL Normal 12.0-16.0 [facility] Comment on above: Performed By: #### T SH, CMP, LDH #### [facility] [address] [place] [address] Dr. Alesia Meyers IG # 0.14 10e3/ul Critically high 0.00-0.03 [facility] Comment on above: Performed By: #### T SH, CMP, LDH #### [facility] [address] [place] [address] Dr. Alesia Meyers IG % 1.6 % Critically high 0.0-0.5 [facility] Comment on above: Performed By: #### T SH, CMP, LDH #### [facility] [address] [place] [address] Dr. Alesia Meyers LYMPH # 2.7 103/ul Normal 1.2-3.8 [facility] Comment on above: Performed By: #### T SH, CMP, LDH #### [facility] [address] [place] [address] Dr. Alesia Meyers Lymphocytes/100 WBC (Bld) 30.2 % Normal 20.5-60.0 [facility] Comment on above: Performed By: #### T SH, CMP, LDH #### [facility] [address] [place] [id number] Dr. Alesia Meyers MANUAL DIFF REQ NO Normal [facility] Comment on above: Performed By: #### T SH, CMP, LDH #### [facility] [address] [place], [place] [id number] Dr. Alesia Meyers MCH (RBC) [Entitic mass] 28.7 pg Normal 26.7-34.0 [facility] Comment on above: Performed By: #### T SH, CMP, LDH #### [facility] [address] [place] [address] Dr. Alesia Meyers MCHC (RBC) [Mass/Vol] 32.9 g/dL Normal 29.9-35.2 [facility] Comment on above: Performed By: #### T SH, CMP, LDH #### [facility] [address] [place] [address] Dr. Alesia Meyers MCV (RBC) [Entitic vol] 87.2 fL Normal 81.0-99.0 [facility] Comment on above: Performed By: #### T SH, CMP, LDH #### [facility] [address] [place] [address] Dr. Alesia Meyers MONO # 1.0 103/ul Critically high 0.3-0.8 [facility] Comment on above: Performed By: #### T SH, CMP, LDH #### [facility] [address] [place] [address] Dr. Alesia Meyers Monocytes/100 WBC (Bld) 10.8 % Normal 1.7-12.0 [facility] Comment on above: Performed By: #### T SH, CMP, LDH #### [facility] [address] [place] [address] Dr. Alesia Meyers NEUT # 5.0 103/ul Normal 1.4-6.5 [facility] Comment on above: Performed By: #### T SH, CMP, LDH #### [facility] [address] [place] [address] Dr. Alesia Meyers Neutrophils/100 WBC (Bld) 56.5 % Normal 43.0-75.0 [facility] Comment on above: Performed By: #### T SH, CMP, LDH #### [facility] [address] [place] [address] Dr. Alesia Meyers Platelet mean volume (Bld) [Entitic vol] 9.1 fL Critically low 9.5-13.5 [facility] Comment on above: Performed By: #### T SH, CMP, LDH #### [facility] [address] [place] [address] Dr. Alesia Meyers PLT 217 103/ul Normal 150-450 [facility] Comment on above: Performed By: #### T SH, CMP, LDH #### [facility] [address] [place] [address] Dr. Alesia Meyers RBC 4.77 106/ul Normal 4.20-5.40 [facility] Comment on above: Performed By: #### T SH, CMP, LDH #### [facility] [address] [place] [address] Dr. Alesia Meyers WBC 8.8 103/ul Normal 4.0-11.0 [facility] Comment on above: Performed By: #### T SH, CMP, LDH #### [facility] [address] [place] [address] Dr. Alesia Meyers FREE T4on 09-05-2022 Free T4 [Mass/Vol] 1.22 ng/dL Normal 0.76-1.46 [facility] Comment on above: Performed By: #### F T4 #### [facility] [address] [place] [address] Dr. Alesia Meyers LDHon 09-05-2022 LDH 212 U/L Normal 81-234 [facility] Comment on above: Performed By: #### T SH, CMP, LDH #### [facility] [address] [place] [address] Dr. Alesia Meyers PROF 14(COMP METB)on 023 Albumin [Mass/Vol] 3.4 g/dL Normal 3.4-5.0 [facility] Comment on above: Performed By: #### T SH, CMP, LDH #### [facility] [address] [place] [address] Dr. Alesia Meyers Albumin/Globulin [Mass ratio] 1.1 {ratio} Normal [facility] Comment on above: Performed By: #### T SH, CMP, LDH #### [facility] [address] [place] [address] Dr. Alesia Meyers ALP [Catalytic activity/Vol] 101 U/L Normal 46-116 [facility] Comment on above: Performed By: #### T SH, CMP, LDH #### [facility] [address] [place] [address] Dr. Alesia Meyers ALT [Catalytic activity/Vol] 40 U/L Normal 14-59 [facility] Comment on above: Performed By: #### T SH, CMP, LDH #### [facility] [address] [place] [address] Dr. Alesia Meyers Anion gap [Moles/Vol] 10.7 mmol/L Normal [facility] Comment on above: Performed By: #### T SH, CMP, LDH #### [facility] [address] [place] [address] Dr. Alesia Meyers AST [Catalytic activity/Vol] 25 U/L Normal 15-37 [facility] Comment on above: Performed By: #### T SH, CMP, LDH #### [facility] [address] [place] [address] Dr. Alesia Meyers Bilirubin [Mass/Vol] 0.4 mg/dL Normal 0.2-1.0 [facility] Comment on above: Performed By: #### T SH, CMP, LDH #### [facility] [address] [place] [address] Dr. Alesia Meyers Calcium [Mass/Vol] 8.7 mg/dL Normal 8.5-10.1 [facility] Comment on above: Performed By: #### T SH, CMP, LDH #### [facility] [address] [place] [address] Dr. Alesia Meyers Chloride [Moles/Vol] 105 mmol/L Normal 98-107 [facility] Comment on above: Performed By: #### T SH, CMP, LDH #### [facility] [address] [place] [address] Dr. Alesia Meyers CO2 [Moles/Vol] 30.0 mmol/L Normal 21.0-32.0 [facility] Comment on above: Performed By: #### T SH, CMP, LDH #### [facility] [address] [address] [address] Alesia Meyers Creatinine [Mass/Vol] 0.83 mg/dL Normal 0.55-1.02 [facility] Comment on above: Performed By: #### T SH, CMP, LDH #### [facility] [address] [address] [address] Alesia Meyers EGFR-AF [facility] >60 Normal >=60 [facility] Comment on above: Performed By: #### T SH, CMP, LDH #### [facility] [address] [address] [address] Alesia Meyers EGFR-NON AF [facility] >60 Normal >=60 [facility] Comment on above: Performed By: #### T SH, CMP, LDH #### [facility] [address] [address] [address] Alesia Meyers Globulin (S) [Mass/Vol] 3.2 g/dL Normal [facility] Comment on above: Performed By: #### T SH, CMP, LDH #### [facility] [address] [address] [address] Alesia Meyers Glucose [Mass/Vol] 96 mg/dL Normal 74-106 [facility] Comment on above: Performed By: #### T SH, CMP, LDH #### [facility] [address] [address] [address] Alesia Meyers Potassium [Moles/Vol] 3.7 mmol/L Normal 3.5-5.1 [facility] Comment on above: Performed By: #### T SH, CMP, LDH #### [facility] [address] [address] [address] Alesia Meyers Protein [Mass/Vol] 6.6 g/dL Normal 6.4-8.2 [facility] Comment on above: Performed By: #### T SH, CMP, LDH #### [facility] [address] [address] [address] Alesia Meyers Sodium [Moles/Vol] 142 mmol/L Normal 136-145 [facility] Comment on above: Performed By: #### T SH, CMP, LDH #### [facility] [address] [place], [place] [address] Dr. Alesia Meyers Urea nitrogen [Mass/Vol] 29.0 mg/dL Critically high 7.0-18.0 [facility] Comment on above: Performed By: #### T SH, CMP, LDH #### [facility] [address] [address] [address] Alesia Meyers Urea nitrogen/Creatinine [Mass ratio] 34.9 mg/mg Normal [facility] Comment on above: Performed By: #### T SH, CMP, LDH #### [facility] [address] [address] [address] Alesia Meyers TSHon 09-05-2022 TSH 3.372 uIU/mL Normal 0.358-3.74 0 [facility] Comment on above: Performed By: #### T SH, CMP, LDH #### [facility] [address] [address] [address] Alesia Meyers Albumin [Mass/volume] in Ser um or PlasmaOrdered By: Sly Benson on 08-08-2022 Albumin [Mass/Vol] 4.0 g/dL 3.2-5.5 [facility] Basophils Auto (Bld) [#/Vol] Ordered By: Sly Benson on 08-08-2022 Basophils (Bld) [#/Vol] 0.1 10*3/uL 0.0-0.2 [facility] Basophils/100 WBC Auto (Bld) Ordered By: Sly Benson on 08-08-2022 Basophils/100 WBC (Bld) 0.7 % . [facility] Creatinine and Glomerular fi ltration rate.predicted panel (S/P/Bld)Ordered By: Sly Benson on 08-08-2022 Creatinine [Mass/Vol] 0.93 mg/dL 0.44-1.03 [facility] Direct bilirubin measurement Ordered By: Sly Benson on 08-08-2022 Bilirubin.direct [Mass/Vol] mg/dL 0.0-0.4 [facility] Eosinophils Auto (Bld) [#/Vo l]Ordered By: Sly Benson on 08-08-2022 Eosinophils (Bld) [#/Vol] 0.2 10*3/uL 0.0-0.45 [facility] Eosinophils/100 WBC Auto (Bl d)Ordered By: Sly Benson on 08-08-2022 Eosinophils/100 WBC (Bld) 2.1 % . [facility] Erythrocyte distribution wid th Auto (RBC) [Ratio]Ordered By: Sly Benson on 08-08-2022 Erythrocyte distribution width (RBC) [Ratio] 14.7 % 11.9-15.3 [facility] Estimated glomerular filtrat ion rate (GFR) non- AmericanOrdered By: Sly Benson on 08-08-2022 GFR/1.73 sq M.predicted among non-blacks MDRD (S/P/Bld) [Vol rate/Area] 59 mL/Min [facility] Globulin Calc (S) [Mass/Vol] Ordered By: Sly Benson on 08-08-2022 Globulin (S) [Mass/Vol] 3.1 g/dL [facility] Hematocrit Auto (Bld) [Volum e fraction]Ordered By: Sly Benson on 08-08-2022 Hematocrit (Bld) [Volume fraction] 42.9 % 34.0-46.4 [facility] Hemoglobin [Mass/volume] in BloodOrdered By: Sly Benson on 08-08-2022 Hemoglobin (Bld) [Mass/Vol] 14.4 g/dL 11.8-15.4 [facility] - Chemistry and C hemistry - challengeOrdered By: Sly Benson on 08-08-2022 Lipase [Catalytic activity/Vol] 33.0 U/L 22-51 [facility] Lactate dehydrogenase measur ement (enzymatic activity/volume)Ordered By: Sly Benson on 08-08-2022 LDH (Unsp spec) [Catalytic activity/Vol] 209 U/L 45-190 [facility] Leukocytes [#/volume] correc margot for nucleated erythrocytes in Blood by Automated counOrdered By: Sly Benson on 08-08-2022 WBC corrected for nucl RBC Auto (Bld) [#/Vol] 7.6 10*3/uL 3.8-11.6 [facility] Lymphocytes Auto (Bld) [#/Vo l]Ordered By: Sly Benson on 08-08-2022 Lymphocytes (Bld) [#/Vol] 2.2 10*3/uL 1.00-4.8 [facility] Lymphocytes/100 WBC Auto (Bl d)Ordered By: Sly Benson on 08-08-2022 Lymphocytes/100 WBC (Bld) 29.6 % . [facility] MCH Auto (RBC) [Entitic mass ]Ordered By: Sly Benson on 08-08-2022 MCH (RBC) [Entitic mass] 29.0 pg 24.7-34.3 [facility] MCHC Auto (RBC) [Mass/Vol]Or dered By: Sly Benson on 08-08-2022 MCHC (RBC) [Mass/Vol] 33.6 g/dL 32.0-35.0 [facility] MCV Auto (RBC) [Entitic vol] Ordered By: Sly Benson on 08-08-2022 MCV (RBC) [Entitic vol] 86.1 fL 80-100 [facility] Monocytes Auto (Bld) [#/Vol] Ordered By: Sly Benson on 08-08-2022 Monocytes (Bld) [#/Vol] 0.7 10*3/uL 0.0-0.8 [facility] Monocytes/100 WBC Auto (Bld) Ordered By: Sly Benson on 08-08-2022 Monocytes/100 WBC (Bld) 9.0 % . [facility] Neutrophils Auto (Bld) [#/Vo l]Ordered By: Sly Benson on 08-08-2022 Neutrophils (Bld) [#/Vol] 4.4 10*3/uL 1.8-7.7 [facility] Neutrophils/100 WBC Auto (Bl d)Ordered By: Sly Benson on 08-08-2022 Neutrophils/100 WBC (Bld) 58.6 % . [facility] No Panel InformationOrdered By: Sly Benson on 08-08-2022 Adrenocorticotropic Hormone 35.2 pg/mL 7.2-63.3 [facility] Comment on above: ACTH reference inter jamel for samples collected between 7 and10 AM.Performed at: [employer] [facility] [employer] [id number] Director: Coleman Lacy PhD, Phone: [phone] Estimated GFR () > 60 mL/Min [facility] Comment on above: GFR estimated refere nce range: According to KDOQI guidelines, <60 ml/min/1.73m2 is sufficient to diagnose a patient with chronic kidney disease. Pharmacy Creatinine Clearance (Chem 55.32 [facility] Nucleated erythrocytes [Pres ence] in Blood by Automated countOrdered By: Sly Benson on 08-08-2022 Nucleated RBC Auto Ql (Bld) 0.1 /100{WBC} 0-0.5 [facility] Platelet mean volume Auto (B ld) [Entitic vol]Ordered By: Sly Benson on 08-08-2022 Platelet mean volume (Bld) [Entitic vol] 7.5 fL 6.3-10.7 [facility] Platelets Auto (Bld) [#/Vol] Ordered By: Sly Benson on 08-08-2022 Platelets (Bld) [#/Vol] 216 10*3/uL 150-450 [facility] Protein [Mass/volume] in Ser um or PlasmaOrdered By: Sly Benson on 08-08-2022 Protein [Mass/Vol] 7.1 g/dL 6.1-7.9 [facility] RBC Auto (Bld) [#/Vol]Ordere d By: Sly Benson on 08-08-2022 RBC (Bld) [#/Vol] 4.98 10*6/uL 3.60-5.00 [facility] Random cortisol measurementO rdered By: Sly Benson on 08-08-2022 Cortisol [Mass/Vol] 11.8 ug/dL [facility] Comment on above: Reference range: AM 6 - 24 ug/dl PM <10 ug/dl Serum or plasma alanine castro otransferase measurement without P-5'-P (enzymatic activiOrdered By: Sly Benson on 08-08-2022 ALT No additional P-5'-P [Catalytic activity/Vol] 32 U/L 10-60 [facility] Serum or plasma albumin/glob ulin mass ratioOrdered By: Sly Benson on 08-08-2022 Albumin/Globulin [Mass ratio] 1.3 {ratio} [facility] Serum or plasma alkaline halle sphatase measurement (enzymatic activity/volume)Ordered By: Sly Benson on 08-08-2022 ALP [Catalytic activity/Vol] 99 U/L 32-92 [facility] Serum or plasma anion gap de terminationOrdered By: Sly Benson on 08-08-2022 Anion gap [Moles/Vol] 11.2 mmol/L 6.0-15.0 [facility] Serum or plasma aspartate am inotransferase measurement (enzymatic activity/volume)Ordered By: Sly Benson on 08-08-2022 AST [Catalytic activity/Vol] 34 U/L 10-42 [facility] Serum or plasma calcium diamond urement (mass/volume)Ordered By: Sly Benson on 08-08-2022 Calcium [Mass/Vol] 9.3 mg/dL 8.2-10.2 [facility] Serum or plasma chloride zora surement (moles/volume)Ordered By: Sly Benson on 08-08-2022 Chloride [Moles/Vol] 102 mmol/L 95-114 [facility] Serum or plasma glucose diamond urement (mass/volume)Ordered By: Sly Benson on 08-08-2022 Glucose [Mass/Vol] 101 mg/dL 70-100 [facility] Comment on above: ADA recommended refe rence rangeRandom Glucose Reference Range is dependent on time and content of last meal. Glucose of more than 200 mg/dL in a nonstressed, ambulatory subject supports the diagnosis of Diabetes Mellitus. Serum or plasma non-glucuron idated bilirubin measurement (mass/volume)Ordered By: Sly Benson on 08-08-2022 Bilirubin.indirect [Mass/Vol] TNP [facility] Comment on above: Test not performed Serum or plasma potassium me asurement (moles/volume)Ordered By: Sly Benson on 08-08-2022 Potassium [Moles/Vol] 3.3 mmol/L 3.5-5.1 [facility] Serum or plasma sodium measu rement (moles/volume)Ordered By: Sly Benson on 08-08-2022 Sodium [Moles/Vol] 139 mmol/L 136-146 [facility] Serum or plasma total biliru bin measurement (mass/volume)Ordered By: Sly Benson on 08-08-2022 Bilirubin [Mass/Vol] 0.7 mg/dL 0.3-1.2 [facility] Serum or plasma total carbon dioxide measurement (moles/volume)Ordered By: Sly Benson on 08-08-2022 CO2 [Moles/Vol] 29.1 mmol/L 22.0-30.0 [facility] Serum or plasma urea nitroge n measurement (mass/volume)Ordered By: Sly Benson on 08-08-2022 Urea nitrogen [Mass/Vol] 18 mg/dL 9-23 [facility] TSH DL <= 0.005 mIU/L QnOrde red By: Sly Benson on 08-08-2022 TSH Qn 2.80 m[IU]/L 0.45-5.33 [facility] Thyroxine (T4) free [Mass/vo lume] in Serum or PlasmaOrdered By: Sly Benson on 08-08-2022 Free T4 [Mass/Vol] 0.99 ng/dL 0.61-1.12 [facility] WBC Auto (Bld) [#/Vol]Ordere d By: Sly Benson on 08-08-2022 WBC (Bld) [#/Vol] 7.6 10*3/uL 3.8-11.6 [facility] ACTH, PLASMAon 07-22-2022 ACTH, Plasma 29.5 pg/mL Normal 7.2-63.3 [facility] Comment on above: Result Comment: ACTH reference interval for samples collected between 7 and 10 AM. Performed By: #### A CTHP #### [facility] [address] [place] [address] Dr. Alesia Meyers CORTISOLon 07-22-2022 Cortisol 10.0 ug/dL Normal [facility] Comment on above: Result Comment: Melvin isol AM 6.2 - 19.4 Cortisol PM 2.3 - 11.9 Performed By: #### T SH, CMP, LDH #### [facility] [address] [place] [address] Dr. Alesia Meyers CBC AUTO DIFFon 07-21-2022 BASO # 0.0 103/ul Normal 0.0-0.1 [facility] Comment on above: Performed By: #### T SH, CMP, LDH #### [facility] [address] [place] [address] Dr. Alesia Meyers Basophils/100 WBC (Bld) 0.6 % Normal 0.2-2.0 [facility] Comment on above: Performed By: #### T SH, CMP, LDH #### [facility] [address] [place] [address] Dr. Alesia Meyers EO # 0.1 103/ul Normal 0.0-0.7 [facility] Comment on above: Performed By: #### T SH, CMP, LDH #### [facility] [address] [place] [address] Dr. Alesia Meyers Eosinophils/100 WBC (Bld) 1.8 % Normal 0.9-7.0 [facility] Comment on above: Performed By: #### T SH, CMP, LDH #### [facility] [address] [place] [address] Dr. Alesia Meyers Erythrocyte distribution width (RBC) [Ratio] 13.2 % Normal 11.0-15.0 [facility] Comment on above: Performed By: #### T SH, CMP, LDH #### [facility] [address] [place] [address] Dr. Alesia Meyers Hematocrit (Bld) [Volume fraction] 40.4 % Normal 36.0-48.0 [facility] Comment on above: Performed By: #### T SH, CMP, LDH #### [facility] [address] [place] [address] Dr. Alesia Meyers Hemoglobin (Bld) [Mass/Vol] 14.1 g/dL Normal 12.0-16.0 [facility] Comment on above: Performed By: #### T SH, CMP, LDH #### [facility] [address] [place] [address] Dr. Alesia Meyers IG # 0.03 10e3/ul Normal 0.00-0.03 [facility] Comment on above: Performed By: #### T SH, CMP, LDH #### [facility] [address] [place] [address] Dr. Alesia Meyers IG % 0.4 % Normal 0.0-0.5 [facility] Comment on above: Performed By: #### T SH, CMP, LDH #### [facility] [address] [place] [address] Dr. Alesia Meyers LYMPH # 1.9 103/ul Normal 1.2-3.8 [facility] Comment on above: Performed By: #### T SH, CMP, LDH #### [facility] [address] [place] [address] Dr. Alesia Meyers Lymphocytes/100 WBC (Bld) 27.5 % Normal 20.5-60.0 [facility] Comment on above: Performed By: #### T SH, CMP, LDH #### [facility] [address] [place] [address] Dr. Alesia Meyers MANUAL DIFF REQ NO Normal [facility] Comment on above: Performed By: #### T SH, CMP, LDH #### [facility] [address] [place] [address] Dr. Alesia Meyers MCH (RBC) [Entitic mass] 28.4 pg Normal 26.7-34.0 [facility] Comment on above: Performed By: #### T SH, CMP, LDH #### [facility] [address] [place] [address] Dr. Alesia Meyers MCHC (RBC) [Mass/Vol] 34.9 g/dL Normal 29.9-35.2 [facility] Comment on above: Performed By: #### T SH, CMP, LDH #### [facility] [address] [place] [address] Dr. Alesia Meyers MCV (RBC) [Entitic vol] 81.5 fL Normal 81.0-99.0 [facility] Comment on above: Performed By: #### T SH, CMP, LDH #### [facility] [address] [place] [address] Dr. Alesia Meyers MONO # 0.3 103/ul Normal 0.3-0.8 [facility] Comment on above: Performed By: #### T SH, CMP, LDH #### [facility] [address] [place] [address] Dr. Alesia Meyers Monocytes/100 WBC (Bld) 4.9 % Normal 1.7-12.0 [facility] Comment on above: Performed By: #### T SH, CMP, LDH #### [facility] [address] [place] [address] Dr. Alesia Meyers NEUT # 4.4 103/ul Normal 1.4-6.5 [facility] Comment on above: Performed By: #### T SH, CMP, LDH #### [facility] [address] [place] [address] Dr. Alesia Meyers Neutrophils/100 WBC (Bld) 64.8 % Normal 43.0-75.0 [facility] Comment on above: Performed By: #### T SH, CMP, LDH #### [facility] [address] [place] [address] Dr. Alesia Meyers Platelet mean volume (Bld) [Entitic vol] 8.8 fL Critically low 9.5-13.5 [facility] Comment on above: Performed By: #### T SH, CMP, LDH #### [facility] [address] [place] [address] Dr. Alesia Meyers PLT 214 103/ul Normal 150-450 [facility] Comment on above: Performed By: #### T SH, CMP, LDH #### [facility] [address] [place] [address] Dr. Alesia Meyers RBC 4.96 106/ul Normal 4.20-5.40 [facility] Comment on above: Performed By: #### T SH, CMP, LDH #### [facility] [address] [place] [address] Dr. Alesia Meyers WBC 6.8 103/ul Normal 4.0-11.0 [facility] Comment on above: Performed By: #### T SH, CMP, LDH #### [facility] [address] [place] [address] Dr. Alesia Meyers FREE T4on 07-21-2022 Free T4 [Mass/Vol] 1.06 ng/dL Normal 0.76-1.46 [facility] Comment on above: Performed By: #### T SH, CMP, LDH #### [facility] [address] [place] [address] Dr. Alesia Meyers LDHon 07-21-2022 LDH 243 U/L Critically high 81-234 [facility] Comment on above: Performed By: #### T SH, CMP, LDH #### [facility] [address] [place] [address] Dr. Alesia Meyers LIPASEon 07-21-2022 Lipase [Catalytic activity/Vol] 73.0 U/L Normal 73.0-393.0 [facility] Comment on above: Performed By: #### T SH, CMP, LDH #### [facility] [address] [place] [address] Dr. Alesia Meyers LIVER PROFILEon 07-21-2022 Albumin [Mass/Vol] 3.5 g/dL Normal 3.4-5.0 [facility] Comment on above: Performed By: #### T SH, CMP, LDH #### [facility] [address] [place] [address] Dr. Alesia Meyers Albumin/Globulin [Mass ratio] 0.9 {ratio} Normal [facility] Comment on above: Performed By: #### T SH, CMP, LDH #### [facility] [address] [place] [address] Dr. Alesia Meyers ALP [Catalytic activity/Vol] 130 U/L Critically high 46-116 [facility] Comment on above: Performed By: #### T SH, CMP, LDH #### [facility] [address] [place] [address] Dr. Alesia Meyers ALT [Catalytic activity/Vol] 35 U/L Normal 14-59 [facility] Comment on above: Performed By: #### T SH, CMP, LDH #### [facility] [address] [place] [address] Dr. Alesia Meyers AST [Catalytic activity/Vol] 37 U/L Normal 15-37 [facility] Comment on above: Performed By: #### T SH, CMP, LDH #### [facility] [address] [place] [address] Dr. Alesia Meyers BILI, CONJUGATED 0.1 mg/dL Normal 0.0-0.2 [facility] Comment on above: Performed By: #### T SH, CMP, LDH #### [facility] [address] [place] [address] Dr. Alesia Meyers Bilirubin [Mass/Vol] 0.4 mg/dL Normal 0.2-1.0 [facility] Comment on above: Performed By: #### T SH, CMP, LDH #### [facility] [address] [place] [address] Dr. Alesia Meyers Globulin (S) [Mass/Vol] 3.8 g/dL Normal [facility] Comment on above: Performed By: #### T SH, CMP, LDH #### [facility] [address] [place] [address] Dr. Alesia Meyers Protein [Mass/Vol] 7.3 g/dL Normal 6.4-8.2 [facility] Comment on above: Performed By: #### T SH, CMP, LDH #### [facility] [address] [place] [address] Dr. Alesia Meyers PROF CHEM 8 (BAS METB)on Anion gap [Moles/Vol] 12.1 mmol/L Normal [facility] Comment on above: Performed By: #### T SH, CMP, LDH #### [facility] [address] [place] [address] Dr. Alesia Meyers Calcium [Mass/Vol] 9.2 mg/dL Normal 8.5-10.1 [facility] Comment on above: Performed By: #### T SH, CMP, LDH #### [facility] [address] [address] [address] Alesia Meyers Chloride [Moles/Vol] 102 mmol/L Normal 98-107 [facility] Comment on above: Performed By: #### T SH, CMP, LDH #### [facility] [address] [address] [address] Alesia Meyers CO2 [Moles/Vol] 30.5 mmol/L Normal 21.0-32.0 [facility] Comment on above: Performed By: #### T SH, CMP, LDH #### [facility] [address] [address] [address] Alesia Meyers Creatinine [Mass/Vol] 0.87 mg/dL Normal 0.55-1.02 [facility] Comment on above: Performed By: #### T SH, CMP, LDH #### [facility] [address] [address] [address] Alesia Meyers EGFR-AF [facility] >60 Normal >=60 [facility] Comment on above: Performed By: #### T SH, CMP, LDH #### [facility] [address] [address] [address] Alesia Meyers EGFR-NON AF [facility] >60 Normal >=60 [facility] Comment on above: Performed By: #### T SH, CMP, LDH #### [facility] [address] [address] [address] Alesia Meyers Glucose [Mass/Vol] 178 mg/dL Critically high 74-106 [facility] Comment on above: Performed By: #### T SH, CMP, LDH #### [facility] [address] [address] [address] Alesia Meyers Potassium [Moles/Vol] 3.6 mmol/L Normal 3.5-5.1 [facility] Comment on above: Performed By: #### T SH, CMP, LDH #### [facility] [address] [address] [address] Alesia Meyers Sodium [Moles/Vol] 141 mmol/L Normal 136-145 [facility] Comment on above: Performed By: #### T SH, CMP, LDH #### [facility] [address] [address] [address] Alesia Meyers Urea nitrogen [Mass/Vol] 16.0 mg/dL Normal 7.0-18.0 [facility] Comment on above: Performed By: #### T SH, CMP, LDH #### [facility] [address] [address] [address] Alesia Meyers Urea nitrogen/Creatinine [Mass ratio] 18.4 mg/mg Normal [facility] Comment on above: Performed By: #### T SH, CMP, LDH #### [facility] [address] [address] [address] Alesia Meyers TSHon 07-21-2022 TSH 2.383 uIU/mL Normal 0.358-3.74 0 [facility] Comment on above: Performed By: #### T SH, CMP, LDH #### [facility] [address] [place] [address] Dr. Alesia Meyers ACTH, PLASMAon 06-21-2022 ACTH, Plasma 30.4 pg/mL Normal 7.2-63.3 [facility] Comment on above: Result Comment: ACTH reference interval for samples collected between 7 and 10 AM. Performed By: #### T SH, CMP, LDH #### [facility] [address] [place] [address] Dr. Alesia Meyers CORTISOLon 06-21-2022 Cortisol 16.9 ug/dL Normal [facility] Comment on above: Result Comment: Melvin isol AM 6.2 - 19.4 Cortisol PM 2.3 - 11.9 Performed By: #### C ORTISO #### [facility] [address] [place] [address] Dr. Alesia Meyers CBC AUTO DIFFon 06-20-2022 BASO # 0.0 103/ul Normal 0.0-0.1 [facility] Comment on above: Performed By: #### T SH, CMP, LDH #### [facility] [address] [place] [address] Dr. Alesia Meyers Basophils/100 WBC (Bld) 0.5 % Normal 0.2-2.0 [facility] Comment on above: Performed By: #### T SH, CMP, LDH #### [facility] [address] [place] [address] Dr. Alesia Meyers EO # 0.1 103/ul Normal 0.0-0.7 [facility] Comment on above: Performed By: #### T SH, CMP, LDH #### [facility] [address] [place] [address] Dr. Alesia Meyers Eosinophils/100 WBC (Bld) 2.1 % Normal 0.9-7.0 [facility] Comment on above: Performed By: #### T SH, CMP, LDH #### [facility] [address] [place] [address] Dr. Alesia Meyers Erythrocyte distribution width (RBC) [Ratio] 13.3 % Normal 11.0-15.0 [facility] Comment on above: Performed By: #### T SH, CMP, LDH #### [facility] [address] [place] [address] Dr. Alesia Meyers Hematocrit (Bld) [Volume fraction] 40.2 % Normal 36.0-48.0 [facility] Comment on above: Performed By: #### T SH, CMP, LDH #### [facility] [address] [place] [address] Dr. Alesia Meyers Hemoglobin (Bld) [Mass/Vol] 13.5 g/dL Normal 12.0-16.0 [facility] Comment on above: Performed By: #### T SH, CMP, LDH #### [facility] [address] [place] [address] Dr. Alesia Meyers IG # 0.02 10e3/ul Normal 0.00-0.03 [facility] Comment on above: Performed By: #### T SH, CMP, LDH #### [facility] [address] [place] [address] Dr. Alesia Meyers IG % 0.3 % Normal 0.0-0.5 [facility] Comment on above: Performed By: #### T SH, CMP, LDH #### [facility] [address] [place] [address] Dr. Alesia Meyers LYMPH # 2.3 103/ul Normal 1.2-3.8 [facility] Comment on above: Performed By: #### T SH, CMP, LDH #### [facility] [address] [place] [address] Dr. Alesia Meyers Lymphocytes/100 WBC (Bld) 35.0 % Normal 20.5-60.0 [facility] Comment on above: Performed By: #### T SH, CMP, LDH #### [facility] [address] [place] [address] Dr. Alesia Meyers MANUAL DIFF REQ NO Normal [facility] Comment on above: Performed By: #### T SH, CMP, LDH #### [facility] [address] [place] [address] Dr. Alesia Meyers MCH (RBC) [Entitic mass] 29.3 pg Normal 26.7-34.0 [facility] Comment on above: Performed By: #### T SH, CMP, LDH #### [facility] [address] [place] [address] Dr. Alesia Meyers MCHC (RBC) [Mass/Vol] 33.6 g/dL Normal 29.9-35.2 [facility] Comment on above: Performed By: #### T SH, CMP, LDH #### [facility] [address] [place] [address] Dr. Alesia Meyers MCV (RBC) [Entitic vol] 87.2 fL Normal 81.0-99.0 [facility] Comment on above: Performed By: #### T SH, CMP, LDH #### [facility] [address] [place] [address] Dr. Alesia Meyers MONO # 0.6 103/ul Normal 0.3-0.8 [facility] Comment on above: Performed By: #### T SH, CMP, LDH #### [facility] [address] [place] [address] Dr. Alesia Meyers Monocytes/100 WBC (Bld) 8.8 % Normal 1.7-12.0 [facility] Comment on above: Performed By: #### T SH, CMP, LDH #### [facility] [address] [address] [address] Alesia Meyers NEUT # 3.5 103/ul Normal 1.4-6.5 [facility] Comment on above: Performed By: #### T SH, CMP, LDH #### [facility] [address] [place] [address] Dr. Alesia Meyers Neutrophils/100 WBC (Bld) 53.3 % Normal 43.0-75.0 [facility] Comment on above: Performed By: #### T SH, CMP, LDH #### [facility] [address] [place] [address] Dr. Alesia Meyers Platelet mean volume (Bld) [Entitic vol] 9.0 fL Critically low 9.5-13.5 [facility] Comment on above: Performed By: #### T SH, CMP, LDH #### [facility] [address] [place] [address] Dr. Alesia Meyers PLT 230 103/ul Normal 150-450 [facility] Comment on above: Performed By: #### T SH, CMP, LDH #### [facility] [address] [place] [address] Dr. Alesia Meyers RBC 4.61 106/ul Normal 4.20-5.40 [facility] Comment on above: Performed By: #### T SH, CMP, LDH #### [facility] [address] [place] [address] Dr. Alesia Meyers WBC 6.6 103/ul Normal 4.0-11.0 [facility] Comment on above: Performed By: #### T SH, CMP, LDH #### [facility] [address] [place] [address] Dr. Alesia Meyers FREE T4on 06-20-2022 Free T4 [Mass/Vol] 1.15 ng/dL Normal 0.76-1.46 [facility] Comment on above: Performed By: #### T SH, CMP, LDH #### [facility] [address] [place] [address] Dr. Alesia Meyers LDHon 06-20-2022 LDH 224 U/L Normal 81-234 [facility] Comment on above: Performed By: #### T SH, CMP, LDH #### [facility] [address] [address] [address] Alesia Meyers LIPASEon 06-20-2022 Lipase [Catalytic activity/Vol] 78.0 U/L Normal 73.0-393.0 [facility] Comment on above: Performed By: #### T SH, CMP, LDH #### [facility] [address] [place] [address] Dr. Alesia Meyers LIPID PROFILEon 06-20-2022 CHOL-HDL RATIO NORM SEE BELOW Normal [facility] Comment on above: Result Comment: 3.3 - 4.4 LOW RISK 4.4 - 7.1 AVERAGE RISK 7.1 - 11.0 MODERATE RISK >11.0 HIGH RISK Performed By: #### T SH, CMP, LDH #### [facility] [address] [place] [address] Dr. Alesia Meyers Cholesterol [Mass/Vol] 153 mg/dL Normal <=200 [facility] Comment on above: Performed By: #### T SH, CMP, LDH #### [facility] [address] [place] [address] Dr. Alesia Meyers Cholesterol in HDL [Mass/Vol] 80 mg/dL Critically high 40-60 [facility] Comment on above: Performed By: #### T SH, CMP, LDH #### [facility] [address] [address] [address] Alesia Meyers Cholesterol in LDL [Mass/Vol] 52.8 mg/dL Normal [facility] Comment on above: Performed By: #### T SH, CMP, LDH #### [facility] [address] [address] [address] Alesia Meyers Cholesterol.total/Chol esterol in HDL [Mass ratio] 1.9 {ratio} Normal [facility] Comment on above: Performed By: #### T SH, CMP, LDH #### [facility] [address] [address] [address] Alesia Meyers HDL NORMAL > or = 60 mg/dl - LO W CARDIOVASCULAR RISK <40 mg/dl - HIGH CARDIOVASCULAR RISK Normal [facility] Comment on above: Performed By: #### T SH, CMP, LDH #### [facility] [address] [address] [address] Alesia Meyers LDL CALC NORMAL SEE BELOW Normal [facility] Comment on above: Result Comment: <100 mg/dl OPTIMAL 100 - 129 mg/dl NEAR OR ABOVE OPTIMAL 130 - 159 mg/dl BORDERLINE HIGH 160 - 189 mg/dl HIGH >190 mg/dl VERY HIGH Performed By: #### T SH, CMP, LDH #### [facility] [address] [address] [address] Alesia Meyers Triglyceride [Mass/Vol] 101 mg/dL Normal <=150 [facility] Comment on above: Performed By: #### T SH, CMP, LDH #### [facility] [address] [address] [address] Alesia Meyers VLDL CALC 20.2 mg/dL Normal [facility] Comment on above: Performed By: #### T SH, CMP, LDH #### [facility] [address] [address] [address] Alesia Meyers LIVER PROFILEon 06-20-2022 Albumin [Mass/Vol] 3.5 g/dL Normal 3.4-5.0 [facility] Comment on above: Performed By: #### T SH, CMP, LDH #### [facility] [address] [address] [address] Alesia Meyers Albumin/Globulin [Mass ratio] 0.9 {ratio} Normal [facility] Comment on above: Performed By: #### T SH, CMP, LDH #### [facility] [address] [address] [address] Alesia Meyers ALP [Catalytic activity/Vol] 109 U/L Normal 46-116 [facility] Comment on above: Performed By: #### T SH, CMP, LDH #### [facility] [address] [address] [address] Alesia Meyers ALT [Catalytic activity/Vol] 39 U/L Normal 14-59 [facility] Comment on above: Performed By: #### T SH, CMP, LDH #### [facility] [address] [place] [address] Dr. Alesia Meyers AST [Catalytic activity/Vol] 34 U/L Normal 15-37 [facility] Comment on above: Performed By: #### T SH, CMP, LDH #### [facility] [address] [place] [address] Dr. Alesia Meyers BILI, CONJUGATED 0.1 mg/dL Normal 0.0-0.2 [facility] Comment on above: Performed By: #### T SH, CMP, LDH #### [facility] [address] [place] [address] Dr. Alesia Meyers Bilirubin [Mass/Vol] 0.4 mg/dL Normal 0.2-1.0 [facility] Comment on above: Performed By: #### T SH, CMP, LDH #### [facility] [address] [place] [address] Dr. Alesia Meyers Globulin (S) [Mass/Vol] 3.7 g/dL Normal [facility] Comment on above: Performed By: #### T SH, CMP, LDH #### [facility] [address] [place] [address] Dr. Alesia Meyers Protein [Mass/Vol] 7.2 g/dL Normal 6.4-8.2 [facility] Comment on above: Performed By: #### T SH, CMP, LDH #### [facility] [address] [place] [address] Dr. Alesia Meyers PROF CHEM 8 (BAS METB)on Anion gap [Moles/Vol] 11.4 mmol/L Normal [facility] Comment on above: Performed By: #### T SH, CMP, LDH #### [facility] [address] [place] [address] Dr. Alesia Meyers Calcium [Mass/Vol] 9.1 mg/dL Normal 8.5-10.1 [facility] Comment on above: Performed By: #### T SH, CMP, LDH #### [facility] [address] [place] [address] Dr. Alesia Meyers Chloride [Moles/Vol] 103 mmol/L Normal 98-107 [facility] Comment on above: Performed By: #### T SH, CMP, LDH #### [facility] [address] [address] [address] Alesia Meyers CO2 [Moles/Vol] 31.2 mmol/L Normal 21.0-32.0 [facility] Comment on above: Performed By: #### T SH, CMP, LDH #### [facility] [address] [address] [address] Alesia Meyers Creatinine [Mass/Vol] 0.90 mg/dL Normal 0.55-1.02 [facility] Comment on above: Performed By: #### T SH, CMP, LDH #### [facility] [address] [address] [address] Alesia Meyers EGFR-AF [facility] >60 Normal >=60 [facility] Comment on above: Performed By: #### T SH, CMP, LDH #### [facility] [address] [address] [address] Alesia Meyers EGFR-NON AF [facility] >60 Normal >=60 [facility] Comment on above: Performed By: #### T SH, CMP, LDH #### [facility] [address] [address] [address] Alesia Meyers Glucose [Mass/Vol] 105 mg/dL Normal 74-106 [facility] Comment on above: Performed By: #### T SH, CMP, LDH #### [facility] [address] [address] [address] Alesia Meyers Potassium [Moles/Vol] 3.6 mmol/L Normal 3.5-5.1 [facility] Comment on above: Performed By: #### T SH, CMP, LDH #### [facility] [address] [address] [address] Alesia Meyers Sodium [Moles/Vol] 142 mmol/L Normal 136-145 [facility] Comment on above: Performed By: #### T SH, CMP, LDH #### [facility] [address] [place] [address] Dr. Alesia Meyers Urea nitrogen [Mass/Vol] 22.0 mg/dL Critically high 7.0-18.0 [facility] Comment on above: Performed By: #### T CURTIS CMP, LDH #### [facility] [address] [place] [address] Dr. Alesia Meyers Urea nitrogen/Creatinine [Mass ratio] 24.4 mg/mg Normal [facility] Comment on above: Performed By: #### T CURTIS, CMP, LDH #### [facility] [address] [place] [address] Dr. Alesia Meyers TSHon 06-20-2022 TSH 3.302 uIU/mL Normal 0.358-3.74 0 [facility] Comment on above: Performed By: #### T CURTIS CMP, LDH #### [facility] [address] [place] [address] Dr. Alesia Meyers ACTH, PLASMAon 05-31-2022 ACTH, Plasma 28.5 pg/mL Normal 7.2-63.3 [facility] Comment on above: Result Comment: ACTH reference interval for samples collected between 7 and 10 AM. Performed By: #### T CURTIS CMP, LDH #### [facility] [address] [place] [address] Dr. Alesia Meyers CORTISOLon 05-31-2022 Cortisol 17.2 ug/dL Normal [facility] Comment on above: Result Comment: Melvin isol AM 6.2 - 19.4 Cortisol PM 2.3 - 11.9 Performed By: #### T CURTIS, CMP, LDH #### [facility] [address] [place] [address] Dr. Alesia Meyers CBC AUTO DIFFon 05-30-2022 BASO # 0.0 103/ul Normal 0.0-0.1 [facility] Comment on above: Performed By: #### T CURTIS, CMP, LDH #### [facility] [address] [place] [address] Dr. Alesia Meyers Basophils/100 WBC (Bld) 0.4 % Normal 0.2-2.0 [facility] Comment on above: Performed By: #### T SH, CMP, LDH #### [facility] [address] [place] [address] Dr. Alesia Meyers EO # 0.1 103/ul Normal 0.0-0.7 [facility] Comment on above: Performed By: #### T SH, CMP, LDH #### [facility] [address] [place] [address] Dr. Alesia Meyers Eosinophils/100 WBC (Bld) 2.1 % Normal 0.9-7.0 [facility] Comment on above: Performed By: #### T SH, CMP, LDH #### [facility] [address] [place] [address] Dr. Alesia Meyers Erythrocyte distribution width (RBC) [Ratio] 12.9 % Normal 11.0-15.0 [facility] Comment on above: Performed By: #### T SH, CMP, LDH #### [facility] [address] [place] [address] Dr. Alesia Meyers Hematocrit (Bld) [Volume fraction] 41.0 % Normal 36.0-48.0 [facility] Comment on above: Performed By: #### T SH, CMP, LDH #### [facility] [address] [place] [address] Dr. Alesia Meyers Hemoglobin (Bld) [Mass/Vol] 13.5 g/dL Normal 12.0-16.0 [facility] Comment on above: Performed By: #### T SH, CMP, LDH #### [facility] [address] [place] [address] Dr. Alesia Meyers IG # 0.02 10e3/ul Normal 0.00-0.03 [facility] Comment on above: Performed By: #### T SH, CMP, LDH #### [facility] [address] [place] [address] Dr. Alesia Meyers IG % 0.3 % Normal 0.0-0.5 [facility] Comment on above: Performed By: #### T SH, CMP, LDH #### [facility] [address] [place] [address] Dr. Alesia Meyers LYMPH # 2.1 103/ul Normal 1.2-3.8 [facility] Comment on above: Performed By: #### T SH, CMP, LDH #### [facility] [address] [place] [address] Dr. Alesia Meyers Lymphocytes/100 WBC (Bld) 30.5 % Normal 20.5-60.0 [facility] Comment on above: Performed By: #### T SH, CMP, LDH #### [facility] [address] [place] [address] Dr. Alesia Meyers MANUAL DIFF REQ NO Normal [facility] Comment on above: Performed By: #### T SH, CMP, LDH #### [facility] [address] [place] [address] Dr. Alesia Meyers MCH (RBC) [Entitic mass] 28.6 pg Normal 26.7-34.0 [facility] Comment on above: Performed By: #### T SH, CMP, LDH #### [facility] [address] [place] [address] Dr. Alesia Meyers MCHC (RBC) [Mass/Vol] 32.9 g/dL Normal 29.9-35.2 [facility] Comment on above: Performed By: #### T SH, CMP, LDH #### [facility] [address] [place] [address] Dr. Alesia Meyers MCV (RBC) [Entitic vol] 86.9 fL Normal 81.0-99.0 [facility] Comment on above: Performed By: #### T SH, CMP, LDH #### [facility] [address] [place] [address] Dr. Alesia Meyers MONO # 0.5 103/ul Normal 0.3-0.8 [facility] Comment on above: Performed By: #### T SH, CMP, LDH #### [facility] [address] [place] [address] Dr. Alesia Meyers Monocytes/100 WBC (Bld) 7.8 % Normal 1.7-12.0 [facility] Comment on above: Performed By: #### T SH, CMP, LDH #### [facility] [address] [place] [address] Dr. Alesia Meyers NEUT # 4.0 103/ul Normal 1.4-6.5 [facility] Comment on above: Performed By: #### T SH, CMP, LDH #### [facility] [address] [place] [address] Dr. Alesia Meyers Neutrophils/100 WBC (Bld) 58.9 % Normal 43.0-75.0 [facility] Comment on above: Performed By: #### T SH, CMP, LDH #### [facility] [address] [place] [address] Dr. Alesia Meyers Platelet mean volume (Bld) [Entitic vol] 9.0 fL Critically low 9.5-13.5 [facility] Comment on above: Performed By: #### T SH, CMP, LDH #### [facility] [address] [place] [address] Dr. Alesia Meyers PLT 224 103/ul Normal 150-450 [facility] Comment on above: Performed By: #### T SH, CMP, LDH #### [facility] [address] [place] [address] Dr. Alesia Meyers RBC 4.72 106/ul Normal 4.20-5.40 [facility] Comment on above: Performed By: #### T SH, CMP, LDH #### [facility] [address] [place] [address] Dr. Alesia Meyers WBC 6.8 103/ul Normal 4.0-11.0 [facility] Comment on above: Performed By: #### T SH, CMP, LDH #### [facility] [address] [place] [address] Dr. Alesia Meyers FREE T4on 05-30-2022 Free T4 [Mass/Vol] 1.19 ng/dL Normal 0.76-1.46 [facility] Comment on above: Performed By: #### T SH, CMP, LDH #### [facility] [address] [place] [address] Dr. lAesia Meyers LDHon 05-30-2022 LDH 231 U/L Normal 81-234 [facility] Comment on above: Performed By: #### F T4 #### [facility] [address] [place] [address] Dr. Alesia Meyers LIPASEon 05-30-2022 Lipase [Catalytic activity/Vol] 76.0 U/L Normal 73.0-393.0 [facility] Comment on above: Performed By: #### F T4 #### [facility] [address] [place] [address] Dr. Alesia Meyers LIVER PROFILEon 05-30-2022 Albumin [Mass/Vol] 3.5 g/dL Normal 3.4-5.0 [facility] Comment on above: Performed By: #### F T4 #### [facility] [address] [place] [address] Dr. Alesia Meyers Albumin/Globulin [Mass ratio] 0.9 {ratio} Normal [facility] Comment on above: Performed By: #### F T4 #### [facility] [address] [place] [address] Dr. Alesia Meyers ALP [Catalytic activity/Vol] 128 U/L Critically high 46-116 [facility] Comment on above: Performed By: #### F T4 #### [facility] [address] [place] [address] Dr. Alesia Meyers ALT [Catalytic activity/Vol] 35 U/L Normal 14-59 [facility] Comment on above: Performed By: #### F T4 #### [facility] [address] [place] [address] Dr. Alesia Meyers AST [Catalytic activity/Vol] 25 U/L Normal 15-37 [facility] Comment on above: Performed By: #### F T4 #### [facility] [address] [place] [address] Dr. Alesia Meyers BILI, CONJUGATED 0.1 mg/dL Normal 0.0-0.2 [facility] Comment on above: Performed By: #### F T4 #### [facility] [address] [place] [address] Dr. Alesia Meyers Bilirubin [Mass/Vol] 0.4 mg/dL Normal 0.2-1.0 [facility] Comment on above: Performed By: #### F T4 #### [facility] [address] [address] [address] Alesia Meyers Globulin (S) [Mass/Vol] 3.7 g/dL Normal [facility] Comment on above: Performed By: #### F T4 #### [facility] [address] [address] [address] Alesia Meyers Protein [Mass/Vol] 7.2 g/dL Normal 6.4-8.2 [facility] Comment on above: Performed By: #### F T4 #### [facility] [address] [place] [address] Dr. Alesia Meyers PROF CHEM 8 (BAS METB)on Anion gap [Moles/Vol] 7.3 mmol/L Normal [facility] Comment on above: Performed By: #### F T4 #### [facility] [address] [place] [address] Dr. Alesia Meyers Calcium [Mass/Vol] 9.0 mg/dL Normal 8.5-10.1 [facility] Comment on above: Performed By: #### F T4 #### [facility] [address] [place] [address] Dr. Alesia Meyers Chloride [Moles/Vol] 102 mmol/L Normal 98-107 [facility] Comment on above: Performed By: #### F T4 #### [facility] [address] [place] [address] Dr. Alesia Meyers CO2 [Moles/Vol] 32.3 mmol/L Critically high 21.0-32.0 [facility] Comment on above: Performed By: #### F T4 #### [facility] [address] [place] [address] Dr. Alesia Meyers Creatinine [Mass/Vol] 0.94 mg/dL Normal 0.55-1.02 [facility] Comment on above: Performed By: #### F T4 #### [facility] [address] [place] [address] Dr. Alesia Meyers EGFR-AF [facility] >60 Normal >=60 [facility] Comment on above: Performed By: #### F T4 #### [facility] [address] [address] [address] Alesia Meyers EGFR-NON AF [facility] 58 mL/min/1.73m2 Critically low >=60 [facility] Comment on above: Performed By: #### F T4 #### [facility] [address] [address] [address] Alesia Meyers Glucose [Mass/Vol] 108 mg/dL Critically high 74-106 T [facility] Comment on above: Performed By: #### F T4 #### [facility] [address] [address] [address] Alesia Meyers Potassium [Moles/Vol] 3.6 mmol/L Normal 3.5-5.1 [facility] Comment on above: Performed By: #### F T4 #### [facility] [address] [address] [address] Alesia Meyers Sodium [Moles/Vol] 138 mmol/L Normal 136-145 [facility] Comment on above: Performed By: #### F T4 #### [facility] [address] [address] [address] Alesia Meyers Urea nitrogen [Mass/Vol] 24.0 mg/dL Critically high 7.0-18.0 [facility] Comment on above: Performed By: #### F T4 #### [facility] [address] [address] [address] Alesia Meyers Urea nitrogen/Creatinine [Mass ratio] 25.5 mg/mg Normal [facility] Comment on above: Performed By: #### F T4 #### [facility] [address] [address] [address] Alesia Meyers TSHon 05-30-2022 TSH 2.605 uIU/mL Normal 0.358-3.74 0 [facility] Comment on above: Performed By: #### F T4 #### [facility] [address] [address] [address] Alesia Meyers ACTH, PLASMAon 05-14-2022 ACTH, Plasma 17.0 pg/mL Normal 7.2-63.3 [facility] Comment on above: Result Comment: ACTH reference interval for samples collected between 7 and 10 AM. Performed By: #### A CTHP #### [facility] [address] [place], [place] [address] Dr. Alesia Meyers ACTH, PLASMAon 05-12-2022 ACTH, Plasma WRORD Normal [facility] Comment on above: Result Comment: Test not performed. The required specimen for the test ordered was not received. received refrigerate plasma edta contacted Sheyla at your facility on 05-12-2022 ACTH reference interval for samples collected between 7 and 10 AM. Performed By: #### F T4 #### [facility] [address] [place], [place] [address] Dr. Alesia Meyers Albumin [Mass/volume] in Ser um or PlasmaOrdered By: Sly Benson on 05-12-2022 Albumin [Mass/Vol] 3.5 g/dL 3.2-5.5 [facility] Direct bilirubin measurement Ordered By: Sly Benson on 05-12-2022 Bilirubin.direct [Mass/Vol] mg/dL 0.0-0.4 [facility] Globulin Calc (S) [Mass/Vol] Ordered By: Sly Benson on 05-12-2022 Globulin (S) [Mass/Vol] 3.0 g/dL [facility] - Chemistry and C hemistry - challengeOrdered By: Sly Benson on 05-12-2022 Lipase [Catalytic activity/Vol] 26.0 U/L 22-51 [facility] Lactate dehydrogenase measur ement (enzymatic activity/volume)Ordered By: Sly Benson on 05-12-2022 LDH (Unsp spec) [Catalytic activity/Vol] 199 U/L 45-190 [facility] No Panel InformationOrdered By: Sly Benson on 05-12-2022 Adrenocorticotropic Hormone 243.0 pg/mL 7.2-63.3 [facility] Comment on above: ACTH reference inter jamel for samples collected between 7 and10 AM.Performed at: [facility] [employer] [id number] Director: Coleman Lacy PhD, Phone: [phone] Protein [Mass/volume] in Ser um or PlasmaOrdered By: Sly Benson on 05-12-2022 Protein [Mass/Vol] 6.5 g/dL 6.1-7.9 [facility] Random cortisol measurementO rdered By: Sly Benson on 05-12-2022 Cortisol [Mass/Vol] 14.6 ug/dL [facility] Comment on above: Reference range: AM 6 - 24 ug/dl PM <10 ug/dl Serum or plasma alanine castro otransferase measurement without P-5'-P (enzymatic activiOrdered By: Sly Benson on 05-12-2022 ALT No additional P-5'-P [Catalytic activity/Vol] 31 U/L [facility] Serum or plasma albumin/glob ulin mass ratioOrdered By: Sly Benson on 05-12-2022 Albumin/Globulin [Mass ratio] 1.2 {ratio} [facility] Serum or plasma alkaline halle sphatase measurement (enzymatic activity/volume)Ordered By: Sly Benson on 05-12-2022 ALP [Catalytic activity/Vol] 112 U/L [facility] Serum or plasma aspartate am inotransferase measurement (enzymatic activity/volume)Ordered By: Sly Benson on 05-12-2022 AST [Catalytic activity/Vol] 33 U/L [facility] Serum or plasma non-glucuron idated bilirubin measurement (mass/volume)Ordered By: Sly Benson on 05-12-2022 Bilirubin.indirect [Mass/Vol] TNP [facility] Comment on above: Test not performed Serum or plasma total biliru bin measurement (mass/volume)Ordered By: Sly Benson on 05-12-2022 Bilirubin [Mass/Vol] 0.8 mg/dL 0.3-1.2 [facility] Thyroxine (T4) free [Mass/vo lume] in Serum or PlasmaOrdered By: Sly Benson on 05-12-2022 Free T4 [Mass/Vol] 1.17 ng/dL 0.61-1.12 [facility] CORTISOLon 05-11-2022 Cortisol 15.4 ug/dL Normal [facility] Comment on above: Result Comment: Melvin isol AM 6.2 - 19.4 Cortisol PM 2.3 - 11.9 Performed By: #### T SH, CMP, LDH #### [facility] [address] [place] [address] Dr. Alesia Meyers CBC AUTO DIFFon 05-10-2022 BASO # 0.0 103/ul Normal 0.0-0.1 [facility] Comment on above: Performed By: #### C BC #### [facility] [address] [place] [address] Dr. Alesia Meyers Basophils/100 WBC (Bld) 0.3 % Normal 0.2-2.0 [facility] Comment on above: Performed By: #### C BC #### [facility] [address] [place] [address] Dr. Alesia Meyers EO # 0.2 103/ul Normal 0.0-0.7 [facility] Comment on above: Performed By: #### C BC #### [facility] [address] [place] [address] Dr. Alesia Meyers Eosinophils/100 WBC (Bld) 2.5 % Normal 0.9-7.0 [facility] Comment on above: Performed By: #### C BC #### [facility] [address] [place] [address] Dr. Alesia Meyers Erythrocyte distribution width (RBC) [Ratio] 13.2 % Normal 11.0-15.0 [facility] Comment on above: Performed By: #### C BC #### [facility] [address] [place] [address] Dr. Alesia Meyers Hematocrit (Bld) [Volume fraction] 39.1 % Normal 36.0-48.0 [facility] Comment on above: Performed By: #### C BC #### [facility] [address] [place] [address] Dr. Alesia Meyers Hemoglobin (Bld) [Mass/Vol] 12.9 g/dL Normal 12.0-16.0 [facility] Comment on above: Performed By: #### C BC #### [facility] [address] [place] [address] Dr. Alesia Meyers IG # 0.01 10e3/ul Normal 0.00-0.03 [facility] Comment on above: Performed By: #### C BC #### [facility] [address] [place] [address] Dr. Alesia Meyers IG % 0.2 % Normal 0.0-0.5 [facility] Comment on above: Performed By: #### C BC #### [facility] [address] [place] [address] Dr. Alesia Meyers LYMPH # 1.9 103/ul Normal 1.2-3.8 [facility] Comment on above: Performed By: #### C BC #### [facility] [address] [place] [address] Dr. Alesia Meyers Lymphocytes/100 WBC (Bld) 32.2 % Normal 20.5-60.0 [facility] Comment on above: Performed By: #### C BC #### [facility] [address] [place] [address] Dr. Alesia Meyers MANUAL DIFF REQ NO Normal [facility] Comment on above: Performed By: #### C BC #### [facility] [address] [place] [address] Dr. Alesia Meyers MCH (RBC) [Entitic mass] 29.0 pg Normal 26.7-34.0 [facility] Comment on above: Performed By: #### C BC #### [facility] [address] [place] [address] Dr. Alesia Meyers MCHC (RBC) [Mass/Vol] 33.0 g/dL Normal 29.9-35.2 [facility] Comment on above: Performed By: #### C BC #### [facility] [address] [place] [address] Dr. Alesia Meyers MCV (RBC) [Entitic vol] 87.9 fL Normal 81.0-99.0 [facility] Comment on above: Performed By: #### C BC #### [facility] [address] [place] [address] Dr. Alesia Meyers MONO # 0.5 103/ul Normal 0.3-0.8 [facility] Comment on above: Performed By: #### C BC #### [facility] [address] [place] [address] Dr. Alesia Meyers Monocytes/100 WBC (Bld) 8.5 % Normal 1.7-12.0 [facility] Comment on above: Performed By: #### C BC #### [facility] [address] [place] [address] Dr. Alesia Meyers NEUT # 3.3 103/ul Normal 1.4-6.5 [facility] Comment on above: Performed By: #### C BC #### [facility] [address] [place] [address] Dr. Alesia Meyers Neutrophils/100 WBC (Bld) 56.3 % Normal 43.0-75.0 [facility] Comment on above: Performed By: #### C BC #### [facility] [address] [place] [address] Dr. Alesia Meyers Platelet mean volume (Bld) [Entitic vol] 9.6 fL Normal 9.5-13.5 [facility] Comment on above: Performed By: #### C BC #### [facility] [address] [place] [address] Dr. Alesia Meyers PLT 210 103/ul Normal 150-450 [facility] Comment on above: Performed By: #### C BC #### [facility] [address] [place] [address] Dr. Alesia Meyers RBC 4.45 106/ul Normal 4.20-5.40 [facility] Comment on above: Performed By: #### C BC #### [facility] [address] [place] [address] Dr. Alesia Meyers WBC 5.9 103/ul Normal 4.0-11.0 [facility] Comment on above: Performed By: #### C BC #### [facility] [address] [place] [address] Dr. Alesia Meyers FREE T4on 05-10-2022 Free T4 [Mass/Vol] 1.19 ng/dL Normal 0.76-1.46 [facility] Comment on above: Performed By: #### F T4 #### [facility] [address] [place] [address] Dr. Alesia Meyers LDHon 05-10-2022 LDH 252 U/L Critically high 81-234 [facility] Comment on above: Performed By: #### T SH, CMP, LDH #### [facility] [address] [place] [address] Dr. Alesia Meyers LIPASEon 05-10-2022 Lipase [Catalytic activity/Vol] 70.0 U/L Critically low 73.0-393.0 [facility] Comment on above: Performed By: #### T SH, CMP, LDH #### [facility] [address] [place] [address] Dr. Alesia Meyers LIVER PROFILEon 05-10-2022 Albumin [Mass/Vol] 3.3 g/dL Critically low 3.4-5.0 [facility] Comment on above: Performed By: #### T SH, CMP, LDH #### [facility] [address] [place] [address] Dr. Alesia Meyers Albumin/Globulin [Mass ratio] 0.9 {ratio} Normal [facility] Comment on above: Performed By: #### T SH, CMP, LDH #### [facility] [address] [place] [address] Dr. Alesia Meyers ALP [Catalytic activity/Vol] 129 U/L Critically high 46-116 [facility] Comment on above: Performed By: #### T SH, CMP, LDH #### [facility] [address] [place] [address] Dr. Alesia Meyers ALT [Catalytic activity/Vol] 35 U/L Normal 14-59 [facility] Comment on above: Performed By: #### T SH, CMP, LDH #### [facility] [address] [place] [address] Dr. Alesia Meyers AST [Catalytic activity/Vol] 36 U/L Normal 15-37 [facility] Comment on above: Performed By: #### T SH, CMP, LDH #### [facility] [address] [place] [address] Dr. Alesia Meyers BILI, CONJUGATED 0.1 mg/dL Normal 0.0-0.2 [facility] Comment on above: Performed By: #### T SH, CMP, LDH #### [facility] [address] [place] [address] Dr. Alesia Meyers Bilirubin [Mass/Vol] 0.4 mg/dL Normal 0.2-1.0 [facility] Comment on above: Performed By: #### T SH, CMP, LDH #### [facility] [address] [place] [address] Dr. Alesia Meyers Globulin (S) [Mass/Vol] 3.7 g/dL Normal [facility] Comment on above: Performed By: #### T SH, CMP, LDH #### [facility] [address] [place] [address] Dr. Alesia Meyers Protein [Mass/Vol] 7.0 g/dL Normal 6.4-8.2 [facility] Comment on above: Performed By: #### T SH, CMP, LDH #### [facility] [address] [place] [address] Dr. Alesia Meyers PROF CHEM 8 (BAS METB)on Anion gap [Moles/Vol] 11.7 mmol/L Normal [facility] Comment on above: Performed By: #### T SH, CMP, LDH #### [facility] [address] [place] [address] Dr. Alesia Meyers Calcium [Mass/Vol] 8.9 mg/dL Normal 8.5-10.1 [facility] Comment on above: Performed By: #### T SH, CMP, LDH #### [facility] [address] [place] [address] Dr. Alesia Meyers Chloride [Moles/Vol] 104 mmol/L Normal 98-107 [facility] Comment on above: Performed By: #### T SH, CMP, LDH #### [facility] [address] [place] [address] Dr. Alesia Meyers CO2 [Moles/Vol] 29.3 mmol/L Normal 21.0-32.0 [facility] Comment on above: Performed By: #### T SH, CMP, LDH #### [facility] [address] [address] [address] Alesia Meyers Creatinine [Mass/Vol] 0.84 mg/dL Normal 0.55-1.02 [facility] Comment on above: Performed By: #### T SH, CMP, LDH #### [facility] [address] [address] [address] Alesia Meyers EGFR-AF [facility] >60 Normal >=60 [facility] Comment on above: Performed By: #### T SH, CMP, LDH #### [facility] [address] [address] [address] Alesia Meyers EGFR-NON AF [facility] >60 Normal >=60 [facility] Comment on above: Performed By: #### T SH, CMP, LDH #### [facility] [address] [address] [address] Alesia Meyers Glucose [Mass/Vol] 109 mg/dL Critically high 74-106 [facility] Comment on above: Performed By: #### T SH, CMP, LDH #### [facility] [address] [address] [address] Alesia Meyers Potassium [Moles/Vol] 4.0 mmol/L Normal 3.5-5.1 [facility] Comment on above: Performed By: #### T SH, CMP, LDH #### [facility] [address] [address] [address] Alesia Meyers Sodium [Moles/Vol] 141 mmol/L Normal 136-145 [facility] Comment on above: Performed By: #### T SH, CMP, LDH #### [facility] [address] [address] [address] Alesia Meyers Urea nitrogen [Mass/Vol] 19.0 mg/dL Critically high 7.0-18.0 [facility] Comment on above: Performed By: #### T SH, CMP, LDH #### [facility] [address] [address] [address] Alesia Meyers Urea nitrogen/Creatinine [Mass ratio] 22.6 mg/mg Normal [facility] Comment on above: Performed By: #### T SH, CMP, LDH #### [facility] [address] [address] [address] Alesia Meyers TSHon 05-10-2022 TSH 3.114 uIU/mL Normal 0.358-3.74 0 [facility] Comment on above: Performed By: #### T SH, CMP, LDH #### [facility] [address] [address] [address] Alesia Meyers Activated partial thrombopla stin time (aPTT) in platelet poor plasma by coagulation aOrdered By: Sly Benson on 04-28-2022 aPTT Coag (PPP) [Time] 28.1 s 25.1-36.5 [facility] Albumin [Mass/volume] in Ser um or PlasmaOrdered By: Sly Benson on 04-28-2022 Albumin [Mass/Vol] 3.5 g/dL 3.2-5.5 [facility] Basophils Auto (Bld) [#/Vol] Ordered By: Sly Benson on 04-28-2022 Basophils (Bld) [#/Vol] 0.0 10*3/uL 0.0-0.2 [facility] Basophils/100 WBC Auto (Bld) Ordered By: Sly Benson on 04-28-2022 Basophils/100 WBC (Bld) 0.5 % . [facility] Creatinine and Glomerular fi ltration rate.predicted panel (S/P/Bld)Ordered By: Sly Benson on 04-28-2022 Creatinine [Mass/Vol] 0.84 mg/dL 0.44-1.03 [facility] Eosinophils Auto (Bld) [#/Vo l]Ordered By: Sly Benson on 04-28-2022 Eosinophils (Bld) [#/Vol] 0.1 10*3/uL 0.0-0.45 [facility] Eosinophils/100 WBC Auto (Bl d)Ordered By: Sly Benson on 04-28-2022 Eosinophils/100 WBC (Bld) 1.1 % . [facility] Erythrocyte distribution wid th Auto (RBC) [Ratio]Ordered By: Sly Benson on 04-28-2022 Erythrocyte distribution width (RBC) [Ratio] 14.1 % 11.9-15.3 [facility] Erythrocyte sedimentation ra te by Photometric methodOrdered By: Sly Benson on 04-28-2022 ESR Photometric method (Bld) [Velocity] 31 mm/hr 0-29 [facility] Estimated glomerular filtrat ion rate (GFR) non- AmericanOrdered By: Sly Benson on 04-28-2022 GFR/1.73 sq M.predicted among non-blacks MDRD (S/P/Bld) [Vol rate/Area] > 60 mL/Min [facility] Globulin Calc (S) [Mass/Vol] Ordered By: Sly Benosn on 04-28-2022 Globulin (S) [Mass/Vol] 2.9 g/dL [facility] Hematocrit Auto (Bld) [Volum e fraction]Ordered By: Sly Benson on 04-28-2022 Hematocrit (Bld) [Volume fraction] 40.5 % 34.0-46.4 [facility] Hemoglobin [Mass/volume] in BloodOrdered By: Sly Benson on 04-28-2022 Hemoglobin (Bld) [Mass/Vol] 13.6 g/dL 11.8-15.4 [facility] Laboratory - CoagulationOrde red By: Sly Benson on 04-28-2022 PT Coag (PPP) [Time] 10.6 s 9.0-12.9 [facility] Laboratory - Hematology and Cell countsOrdered By: Sly Benson on 04-28-2022 Nucleated RBC/100 WBC (Bld) [Ratio] 0.1 % 0-0.5 [facility] Leukocytes [#/volume] in Blo od by Automated countOrdered By: Sly Benson on 04-28-2022 WBC (Bld) [#/Vol] 6.9 10*3/uL 4.5-11.0 [facility] Lymphocytes Auto (Bld) [#/Vo l]Ordered By: Sly Benson on 04-28-2022 Lymphocytes (Bld) [#/Vol] 2.0 10*3/uL 1.00-4.8 [facility] Lymphocytes/100 WBC Auto (Bl d)Ordered By: Sly Benson on 04-28-2022 Lymphocytes/100 WBC (Bld) 28.3 % . [facility] MCH Auto (RBC) [Entitic mass ]Ordered By: lSy Benson on 04-28-2022 MCH (RBC) [Entitic mass] 29.4 pg 24.7-34.3 [facility] MCHC Auto (RBC) [Mass/Vol]Or dered By: Sly Benson on 04-28-2022 MCHC (RBC) [Mass/Vol] 33.6 g/dL 32.0-35.0 [facility] MCV Auto (RBC) [Entitic vol] Ordered By: Sly Benson on 04-28-2022 MCV (RBC) [Entitic vol] 87.5 fL 80-100 [facility] Monocytes Auto (Bld) [#/Vol] Ordered By: Sly Benson on 04-28-2022 Monocytes (Bld) [#/Vol] 0.6 10*3/uL 0.0-0.8 [facility] Monocytes/100 WBC Auto (Bld) Ordered By: Sly Benson on 04-28-2022 Monocytes/100 WBC (Bld) 8.5 % . [facility] Neutrophils Auto (Bld) [#/Vo l]Ordered By: Sly Benson on 04-28-2022 Neutrophils (Bld) [#/Vol] 4.2 10*3/uL 1.8-7.7 [facility] Neutrophils/100 WBC Auto (Bl d)Ordered By: Sly Benson on 04-28-2022 Neutrophils/100 WBC (Bld) 61.6 % . [facility] No Panel InformationOrdered By: Sly Benson on 04-28-2022 Anti-Nuclear Antibody Comment 2 See comment . [facility] Comment on above: For more [...] titers Nucleosomes, Histones Drug-induced SLE Speckled Sm, SOLIDWORKS DRAFTER, SCL-70, SLE,MCTD,PSS (diffuse form), SS-A/SS-B Sjogrens Nucleolar SCL-70, PM-1/SCL High titers Scleroderma, PM/DM Centromere Centromere PSS (limited form) w/Crest syndrome variable Nuclear Dot Sp100,[id number] Primary Biliary Cirrhosis Nuclear GP210, Primary Biliary CirrhosisMembrane fish A,B,C Performed at: [facility] [id number] Director: Coleman Lacy PhD, Phone: [phone] Estimated GFR () > 60 mL/Min [facility] Comment on above: GFR estimated refere nce range: According to KDOQI guidelines, <60 ml/min/1.73m2 is sufficient to diagnose a patient with chronic kidney disease. Pharmacy Creatinine Clearance (Chem 60.78 [facility] Platelet mean volume Auto (B ld) [Entitic vol]Ordered By: Sly Benson on 04-28-2022 Platelet mean volume (Bld) [Entitic vol] 7.6 fL 6.3-10.7 [facility] Platelet poor plasma interna tional normalized ratio (INR) by coagulation assay (relatOrdered By: Sly Benson on 04-28-2022 INR Coag (PPP) [Relative time] 0.9 {INR} [facility] Comment on above: INR Therapeutic [...] 04-28-2022 Platelets (Bld) [#/Vol] 204 10*3/uL 150-450 [facility] Protein [Mass/volume] in Ser um or PlasmaOrdered By: Sly Benson on 04-28-2022 Protein [Mass/Vol] 6.4 g/dL 6.1-7.9 [facility] RBC Auto (Bld) [#/Vol]Ordere d By: Sly Benson on 04-28-2022 RBC (Bld) [#/Vol] 4.63 10*6/uL 3.60-5.00 [facility] Serum nuclear antibody titer Ordered By: Sly Benson on 04-28-2022 Nuclear Ab (S) [Titer] Positive . [facility] Comment on above: Negative <1:80 Borde rline 1:80 Positive >1:80 Serum or plasma alanine castro otransferase measurement without P-5'-P (enzymatic activiOrdered By: Sly Benson on 04-28-2022 ALT No additional P-5'-P [Catalytic activity/Vol] 34 U/L 10 [facility] Serum or plasma albumin/glob ulin mass ratioOrdered By: Sly Benson on 04-28-2022 Albumin/Globulin [Mass ratio] 1.2 {ratio} [facility] Serum or plasma alkaline halle sphatase measurement (enzymatic activity/volume)Ordered By: Sly Benson on 04-28-2022 ALP [Catalytic activity/Vol] 114 U/L 32-92 [facility] Serum or plasma anion gap de terminationOrdered By: Sly Benson on 04-28-2022 Anion gap [Moles/Vol] 11.9 mmol/L 6.0-15.0 [facility] Serum or plasma aspartate am inotransferase measurement (enzymatic activity/volume)Ordered By: Sly Benson on 04-28-2022 AST [Catalytic activity/Vol] 38 U/L 1042 [facility] Serum or plasma calcium diamond urement (mass/volume)Ordered By: Sly Benson on 04-28-2022 Calcium [Mass/Vol] 8.9 mg/dL 8.2-10.2 [facility] Serum or plasma chloride zora surement (moles/volume)Ordered By: Sly Benson on 04-28-2022 Chloride [Moles/Vol] 105 mmol/L 95-114 [facility] Serum or plasma glucose diamond urement (mass/volume)Ordered By: Sly Benson on 04-28-2022 Glucose [Mass/Vol] 110 mg/dL 70-100 [facility] Comment on above: ADA recommended refe rence rangeRandom Glucose Reference Range is dependent on time and content of last meal. Glucose of more than 200 mg/dL in a nonstressed, ambulatory subject supports the diagnosis of Diabetes Mellitus. Serum or plasma potassium me asurement (moles/volume)Ordered By: Sly Benson on 04-28-2022 Potassium [Moles/Vol] 3.5 mmol/L 3.5-5.1 [facility] Serum or plasma sodium measu rement (moles/volume)Ordered By: Sly Benson on 04-28-2022 Sodium [Moles/Vol] 140 mmol/L 136-146 [facility] Serum or plasma total biliru bin measurement (mass/volume)Ordered By: Sly Benson on 04-28-2022 Bilirubin [Mass/Vol] 0.9 mg/dL 0.3-1.2 [facility] Serum or plasma total carbon dioxide measurement (moles/volume)Ordered By: Sly Benson on 04-28-2022 CO2 [Moles/Vol] 26.6 mmol/L 22.0-30.0 [facility] Serum or plasma urea nitroge n measurement (mass/volume)Ordered By: Sly Benson on 04-28-2022 Urea nitrogen [Mass/Vol] 16 mg/dL 9-23 [facility] Serum speckled pattern antin uclear antibody (BARRETT) titerOrdered By: Sly Benson on 04-28-2022 Speckled nuclear Ab pattern (S) [Titer] 1:160 . [facility] Comment on above: ICAP nomenclature: A C-2,4,5,29 TSH DL <= 0.005 mIU/L QnOrde red By: Sly Benson on 04-28-2022 TSH Qn 3.18 m[IU]/L 0.45-5.33 [facility] Creatinine and Glomerular fi ltration rate.predicted panel (S/P/Bld)Ordered By: Alex Trammell on 03-26-2022 Creatinine [Mass/Vol] 0.87 mg/dL 0.44-1.03 [facility] Estimated glomerular filtrat ion rate (GFR) non- AmericanOrdered By: Alex Trammell on 03-26-2022 GFR/1.73 sq M.predicted among non-blacks MDRD (S/P/Bld) [Vol rate/Area] > 60 mL/Min [facility] No Panel InformationOrdered By: Alex Trammell on 03-26-2022 Estimated GFR () > 60 mL/Min [facility] Comment on above: GFR estimated refere nce range: According to KDOQI guidelines, <60 ml/min/1.73m2 is sufficient to diagnose a patient with chronic kidney disease. Pharmacy Creatinine Clearance (Chem N/A [facility] Serum or plasma urea nitroge n measurement (mass/volume)Ordered By: Alex Trammell on 03-26-2022 Urea nitrogen [Mass/Vol] 18 mg/dL 04-04 [facility] Creatinine and Glomerular fi ltration rate.predicted panel (S/P/Bld)Ordered By: Alex Trammell on 10-10-2021 Creatinine [Mass/Vol] 0.91 mg/dL 0.44-1.03 [facility] Estimated glomerular filtrat ion rate (GFR) non- AmericanOrdered By: Alex Trammell on 10-10-2021 GFR/1.73 sq M.predicted among non-blacks MDRD (S/P/Bld) [Vol rate/Area] 60 mL/Min [facility] No Panel InformationOrdered By: Alex Trammell on 10-10-2021 Estimated GFR () > 60 mL/Min [facility] Comment on above: GFR estimated refere nce range: According to KDOQI guidelines, <60 ml/min/1.73m2 is sufficient to diagnose a patient with chronic kidney disease. Pharmacy Creatinine Clearance (Chem N/A [facility] Serum or plasma urea nitroge n measurement (mass/volume)Ordered By: Alex Trammell on 10-10-2021 Urea nitrogen [Mass/Vol] 19 mg/dL 04-04 [facility] Dermatopathologyon 2 Dermatopathology Name THERESA LUU Pathologist: SURAJ MELGAR MD Date of Procedure: 09/17/2021 Date Received: 09/18/2021 Date Reported 09/20/2021 Submitting Physician: ALEX TRAMMELL MD Location: [facility] Other External # FINAL [...] M.D. Electronically Signed Out By SURAJ MELGAR MD/[facility] By the signature on this report, [...] mm. Inked and embedded in toto. mlz/09/18/2021 [facility] Dermatopathology Laboratory [place] [id number] [place] [address] [place] [address] Comment on above: Performed By: #### D #### Dermatopathology No Panel Informationon 09-17 [facility] Work Phone: Office Visit (Oncology Surge [...] not connect with the medical oncologist at [facility] who was planning to consider [...] a prior mole. 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 As [...] swelling fro (more content not included)... Normal [facility] METABOLIC PANE [facility] 05-04-2021 Albumin [Mass/Vol] 4.1 g/dL Normal 3.6-5.1 [facility] Comment on above: Performed By: #### 7 600, 27939 #### [facility] of [address], [address] [place] [address] Video Game Designer: Chadwick Suárez MD Albumin/Globulin [Mass ratio] 1.4 {ratio} Normal 1.0-2.5 [facility] Comment on above: Performed By: #### 7 600, 23025 #### [facility] of [address], [address] [place] [address] Video Game Designer: Chadwick Suárez MD ALP [Catalytic activity/Vol] 121 U/L Normal 37-153 [facility] Comment on above: Performed By: #### 7 600, 12447 #### [facility] [place] [address] Video Game Designer: Chadwick Suárez MD ALT [Catalytic activity/Vol] 18 U/L Normal 6-29 [facility] Comment on above: Performed By: #### 7 600, 82359 #### [facility] [place] [address] Video Game Designer: Chadwick Suárez MD AST [Catalytic activity/Vol] 19 U/L Normal 10-35 [facility] Comment on above: Performed By: #### 7 600, 18420 #### [facility] of [place] [address] Video Game Designer: Chadwick Suárez MD Bilirubin [Mass/Vol] 0.5 mg/dL Normal 0.2-1.2 [facility] Comment on above: Performed By: #### 7 600, 16014 #### [facility] [place] [address] Video Game Designer: Chadwick Suárez MD BUN/CREATININE RATIO NOT APPLICABLE Normal 6-22 [facility] Comment on above: Performed By: #### 7 600, 41175 #### [facility] of [address], [address] [place] [address] Video Game Designer: Chadwick Suárez MD Calcium [Mass/Vol] 9.4 mg/dL Normal 8.6-10.4 [facility] Comment on above: Performed By: #### 7 600, 16271 #### [facility] [address], [address] [place] [address] Video Game Designer: Chadwick Suárez MD Chloride [Moles/Vol] 106 mmol/L Normal 98-110 [facility] Comment on above: Performed By: #### 7 600, 35382 #### [facility] of [address], [address] [place] [address] Video Game Designer: Chadwick Suárez MD CO2 [Moles/Vol] 31 mmol/L Normal 20-32 [facility] Comment on above: Performed By: #### 7 600, 51743 #### [facility] [address], [address] [place] [address] Video Game Designer: Chadwick Suárez MD Creatinine [Mass/Vol] 0.78 mg/dL Normal 0.60-0.93 [facility] Comment on above: Result Comment: For patients >49 years of age, the reference limit for Creatinine is approximately 13% higher for people identified as -Swazi. Performed By: #### 7 600, 91519 #### [facility] [address], [address] [place] [address] Video Game Designer: Chadwick Suárez MD eGFR NON-AFR. [facility] 75 mL/min/1.73m2 Normal > OR = 60 [facility] Comment on above: Performed By: #### 7 600, 73200 #### [facility] of [address], [address] [place] [address] Video Game Designer: Chadwick Suárez MD GFR/1.73 sq M.predicted among blacks MDRD (S/P/Bld) [Vol rate/Area] 87 mL/min/{1.73_m2} Normal > OR = 60 [facility] Comment on above: Performed By: #### 7 600, 92521 #### [facility] of [place] [address] Video Game Designer: Chadwick Suárez MD Globulin (S) [Mass/Vol] 2.9 g/dL Normal 1.9-3.7 [facility] Comment on above: Performed By: #### 7 600, 32026 #### [facility] of [place] [address] Video Game Designer: Chadwick Suárez MD Glucose [Mass/Vol] 105 mg/dL High 65-99 [facility] Comment on above: Result Comment: Fasting reference interval For someone without known diabetes, a glucose value between 100 and 125 mg/dL is consistent with prediabetes and should be confirmed with a follow-up test. Performed By: #### 7 600, 15200 #### [facility] [place] [address] Video Game Designer: Chadwick Suárez MD Potassium [Moles/Vol] 4.9 mmol/L Normal 3.5-5.3 [facility] Comment on above: Performed By: #### 7 600, 24678 #### [facility] of [place] [address] Video Game Designer: Chadwick Suárez MD Protein [Mass/Vol] 7.0 g/dL Normal 6.1-8.1 [facility] Comment on above: Performed By: #### 7 600, 49935 #### [facility] of [place] [address] Video Game Designer: Chadwick Suárez MD Sodium [Moles/Vol] 143 mmol/L Normal 135-146 [facility] Comment on above: Performed By: #### 7 600, 84673 #### [facility] of [place] [address] Video Game Designer: Chadwick Suárez MD Urea nitrogen [Mass/Vol] 18 mg/dL Normal 7-25 [facility] Comment on above: Performed By: #### 7 600, 56146 #### [facility] of [address], [address] [place] [address] Video Game Designer: Chadwick Suárez MD LIPID PANEL, [place] [address]-2 Cholesterol [Mass/Vol] 235 mg/dL High <200 [facility] Comment on above: Order Comment: FASTI NG:YES AN UPDATE OR CORRECTION HAS BEEN MADE TO NAME FASTING: YES Performed By: #### 7 600, 00730 #### [facility] [address], [address] [place] [address] Video Game Designer: Chadwick Suárez MD Cholesterol in HDL [Mass/Vol] 83 mg/dL Normal > OR = 50 [facility] Comment on above: Order Comment: FASTI NG:YES AN UPDATE OR CORRECTION HAS BEEN MADE TO NAME FASTING: YES Performed By: #### 7 600, 29105 #### [facility] [address], [address] [place] [address] Video Game Designer: Chadwick Suárez MD Cholesterol in LDL [...] LDL-C. Enrique BOUDREAUX et al. ROCCO. 2013;310(19): 9000-8472 (http://education.[employer].Hive7/faq/CTZ847) Performed By: #### 7 600, 93673 #### [facility] [address], [address] [place] [address] Video Game Designer: Chadwick Suárez MD Cholesterol.total/Chol esterol in HDL [Mass ratio] 2.8 {ratio} Normal <5.0 [facility] Comment on above: Order Comment: FASTI NG:YES AN UPDATE OR CORRECTION HAS BEEN MADE TO NAME FASTING: YES Performed By: #### 7 600, 23838 #### [facility] [address], [address] [place] [address] Video Game Designer: Chadwick Suárez MD NON HDL CHOLESTEROL [...] therapeutic option. Performed By: #### 7 600, 77754 #### [facility] [address], [address] [place] [address] Video Game Designer: Chadwick Suárez MD Triglyceride [Mass/Vol] 132 mg/dL Normal <150 [facility] Comment on above: Order Comment: AUNG NG:YES AN UPDATE OR CORRECTION HAS BEEN MADE TO NAME FASTING: YES Performed By: #### 7 600, 95280 #### [facility] [address], [address] [place] [address] Video Game Designer: Chadwick Suárez MD Office Visit (Oncology [...] was referred to Dr. Francisca Rose at [facility] for medical oncology consultation for her in-transit [...] a prior mole. The patient moved from [place] 8 years ago and has not established [...] Gauze to (more content not included)... Normal [facility] Office Visit (Oncology Surge ry)on 12-25-2020 Follow-up [...] be referred to Dr. Francisca Rose at [facility] for medical oncology consultation. Her care will [...] a prior mole. The patient moved from [place] 8 years ago and has not established [...] Bacteria identified Cx Nom (Unsp spec) Abnormal DU-Jkhrokq-K [facility] Work Phone: MISCELLANEOUS CULT./SM.BACT. on 12-04-2020 MISCELLANEOUS CULT./SM.BACT. PATIENT: THERESA LUU LOCATION: [facility] BILL#: [id number] : 47 AGE: SEX: F ORDERED BY: [...] DOSE DEPENDENT NS=NONSUSCEPTIBLE X=REPORTED IN ERROR Normal [facility] Comment on above: Performed By: #### M [facility] #### [facility] [address] [address] [place] [address] Office Visit (Oncology Surge ry)on 12-04-2020 Follow-up [...] referred to Dr. Francisca Rose at [facility] for medical oncology consultation. Her [...] a prior mole. The patient moved from [place] 8 years ago and has not established [...] Malignant melanoma of left lower leg (172.7) (C43.56) Patient Discussion/Summary Mrs. Luu is very nice [...] referred to Dr. Francisca Rose at [facility] for medical oncology consultation. Her [...] a prior mole. The patient moved from [place] 8 years ago and has not established [...] included)... Normal [facility] Dermatopathologyon 1 Dermatopathology [facility] Dermatopathology [facility] [address] [place] [id number] DERMATOPATHOLOGY REPORT Name:THERESA LUU. Rec #. [id number] Location: [facility] [place] [place] Date of Procedure: 11/16/2020 Race: Date Received: [...] determined by the Department of Pathology at [facility]. The FDA does not require this test [...] LEFT LOWER LEG MELANOMA: SPECIMEN Procedure: Re-excision [place] node(s) biopsy Specimen Laterality: Left TUMOR Tumor [...] of Lymph Nodes Examined: 3 Number of [place] Nodes Examined: 2 PATHOLOGIC STAGE CLASSIFICATION (pTNM, [...] ADDITIONAL FINDINGS Additional Findings: None ADDITIONAL TESTING ELECTRICAL MAINTENANCE ENGINEER BLOCKS: Normal Block: D1 - 5, 7, 18, 20 - 23 Tumor Block: D6, 8 - 17 Electronically Signed Out By SURAJ MELGAR MD/[facility] By the signature on this report, the individual or group listed as making the Final Interpretation/Diagnosis certifies that they have reviewed this case. Clinical History: A: [place] lymph n (more content not included)... Normal [facility] Comment on above: Performed By: #### D #### Dermatopathology LYMPH GLANDon 11-16-2020 LYMPH GLAND Patient Name: THERESA LUU STUDY: LYMPH GLAND; 11/16/2020 10:05 am INDICATION: Malignant melanoma of left lower leg. COMPARISON: PET-CT 10/31/2020. ACCESSION NUMBER(S): [id number] ORDERING CLINICIAN: ALEX TRAMMELL TECHNIQUE: DIVISION OF [...] review. Electronically signed by: COCO ARCHIBALD MD [facility] [place] Panel Informationon 11-16 VF-Bneifyp-S [facility] Work Phone: Order Reconciliationon 11-16 Order [...] 6 hours, As Needed pain Normal [facility] Patient Profile - Preop v2on 11-16-2020 Patient Profile - Preop v2 Profile: Initial Info: How to be Addressedpamela(1) Spoken Language PreferredEnglish (1) Source of Informationpatient Are you currently using the Personal Electronic Health Record or [facility] Stated Reason for Admissionmelanoma on my lower left leg Primary Contact Name and Numberdonna-cousin Other Contact Names and Numberssue-friend Patient Belongingsremains with patient; patient educated regarding responsibility for personal items Patient Belongings Remaining with Patientclothing Medications Brought to Hospitalno General Health: Weight in kg90 kilogram(s) Weight in tcr838.4 pound(s) Weight Methodactual (measured) Scale Typechair Height in feet5 feet Height in inches2 inch(es) Height in cm157.4 centimeter(s) Height Methodstated BMI (kg/m2)36.327 square meter Patient or Family Member Reaction to Anesthesiano previous reaction Blood Avoidance/Restrictionsnone Previous Transfusion Reactionno Health Mgmt: Symptoms/Conditions Managed at Homecancer Cancer Symptoms/Conditionsmelanom a Barriers to Managing Healthnone Relationship/Environ: Living Arrangementshouse Lives Withalone Resource/Environmental Concernsnone Anticipated Transition [facility] [facility] Anticipated at Transitionnone Substance: Current or [...] material; individual instruction Cultural Considerationsnone Developmental Considerationsnone Pentecostal Considerationsnone Other learner availableno [place] RiskPatient location auto qualifies him/her for HIGH RISK. Are there any cultural, spiritual, orthodox practices/values/needs that are important for us to [...] - Preop v2 14-Nov-2020 09:[address] [facility] Preop Checkliston 11-16-2020 Preop Checklist Preop Checklist: Preop Checklist: Arrival [id number] Arrival Time06:04 NPO [id number] 22:00 ID Band Onyes Allergy Bandno known [...] 06:31 by Deepa Zazueta (GABY) Normal [facility] Radiologyon 11-16-2020 NM Lymph node Views Normal [facility] Work Phone: BASIC METABOLIC PANELon 05-0 Anion gap [Moles/Vol] 10 mmol/L Normal 10 - 20 [facility] Comment on above: Performed By: #### B MP #### [facility] [address] [place] [address] Calcium [Mass/Vol] 9.2 mg/dL Normal 8.6 - 10.3 [facility] Comment on above: Performed By: #### B MP #### [facility] [address] [place] [address] Chloride [Moles/Vol] 105 mmol/L Normal 98 - 107 [facility] Comment on above: Performed By: #### B MP #### [address] [address] Creatinine [Mass/Vol] 0.81 mg/dL Normal 0.50 - 1.05 [facility] Comment on above: Performed By: #### B MP #### [address] [address] GFR- AM. >60 Normal >60 [facility] Comment on above: Result Comment: CALC ULATIONS OF ESTIMATED GFR ARE PERFORMED USING THE MDRD STUDY EQUATION FOR THE IDMS-TRACEABLE CREATININE METHODS. CLIN CHEM 2007;53:766-72 Performed By: #### B MP #### [address] [address] GFR-NON AM. >60 Normal >60 [facility] Comment on above: Performed By: #### B MP #### [address] [address] Glucose [Mass/Vol] 95 mg/dL Normal 74 - 99 [facility] Comment on above: Performed By: #### B MP #### [address] [address] HCO3 (Bld) [Moles/Vol] 30 mmol/L Normal 21 - 32 [facility] Comment on above: Performed By: #### B MP #### [address] [address] Potassium [Moles/Vol] 4.1 mmol/L Normal 3.5 - 5.3 [facility] Comment on above: Performed By: #### B MP #### [address] [address] Sodium [Moles/Vol] 141 mmol/L Normal 136 - 145 [facility] Comment on above: Performed By: #### B MP #### [address] [address] Urea nitrogen [Mass/Vol] 16 mg/dL Normal 6 - 23 [facility] Comment on above: Performed By: #### B MP #### [address] [address] CORONAVIRUS 2019, SCREEN ASY MPTOMATICon 11-14-2020 SARS-CoV-2 (COVID-19) RNA BENOIT+probe Ql (Unsp spec) Not detected Normal Not Detected [facility] Comment on above: Result Comment: . [...] this test method. Fact sheet for providers: https://www.fda.gov/media/669188/download Fact sheet for patients: https://www.fda.gov/media/042604/download This test has received FDA Emergency Use Authorization [EUA] and has been verified by [facility] ([facility]). This test is only authorized for the duration of time that circumstances exist to justify the authorization of the emergency use of in vitro diagnostic tests for the detection of SARS-CoV-2 virus and/or diagnosis of COVID-19 infection under section 564(b)(1) of the Act, 21 U.S.C. 360bbb-3(b)(1), unless the authorization is terminated or revoked sooner. [facility] is certified under CLIA-88 as qualified to perform high complexity testing. Testing is performed in the [facility] laboratories located at [address] [place] [address]. Performed By: #### C OVSC #### [place] [address] Lab Specimen Source Nasal, Nasopharyngeal Normal [facility] Comment on above: Performed By: #### C OVSC #### [place] [address] Coronavirus 2019 RNA by PCR, Screening Asymptomticon 11-14-2020 Coronavirus 2019 RNA by PCR, Screening Asymptomtic Not detected Normal See Below MW-Hxctxsf-J [facility] Work Phone: Comment on above: SOURCE: [...] this test method. Fact sheet for providers: https://www.fda.gov/media/680063/downloadFact sheet for patients: https://www.fda.gov/media/713907/downloadThis test has received FDA Emergency Use Authorization [EUA] and has been verified by [facility] ([facility]). This test is only authorized for the duration of time that circumstances exist to justify the authorization of the emergency use of in vitro diagnostic tests for the detection of SARS-CoV-2 virus and/or diagnosis of COVID-19 infection under section 564(b)(1) of the Act, 21 U.S.C. 360bbb-3(b)(1), unless the authorization is terminated or revoked sooner. [facility] is certified under CLIA-88 as qualified to perform high complexity testing. Testing is performed in the [facility] laboratories located at [address] [place] [address]. Covid 19 Resultson 1 SARS-CoV-2 (COVID-19) RNA [...] You may also be contacted by the [facility] to see if any of your close [...] or Naproxen (Aleve) can also be used. Aukl-gut-chbdwkq cough and cold medicines can be used according to the instructions on the package. Some wlll-ktw-uxpokrn medicines also contain acetaminophen. Make sure you [...] water are not available, use alcohol-based hand agricultural research technician. Avoid touching your eyes, nose, and mouth [...] 24 sivakumar (more content not included)... Normal [facility] - Chemistry and C hemistry - challengeon 11-14-2020 Anion gap [Moles/Vol] 10 mmol/L 10 - 20 MG- Surgery-S [facility] Work Phone: Calcium [Mass/Vol] 9.2 mg/dL 8.6 - 10.3 [facility]: Chloride [Moles/Vol] 105 mmol/L 98 - 107 [facility] Work Phone: CO2 [Moles/Vol] 30 mmol/L 21 - 32 MG-Surger y-S [facility] Work Phone: [phone] Creatinine [Mass/Vol] 0.81 mg/dL See Below MG- Surgery-S [facility] Work Phone: 51 Comment on above: Reference Range: 0.5 0 - 1.05 Glucose [Mass/Vol] 95 mg/dL 74 - 99 MG-Pedro nancyS [facility] Work Phone: 51 Potassium [Moles/Vol] 4.1 mmol/L 3.5 - 5.3 MG- Surgery-S [facility] Work Phone: 51 Sodium [Moles/Vol] 141 mmol/L 136 - 145 MG-Pedro nancyS [facility] Work Phone: 51 Urea nitrogen [Mass/Vol] 16 mg/dL 6 - 23 KU-Mhgtdnz-E [facility] Work Phone: [phone] Panel Informationon 11-14 >60 >60 WV-Qrhureq-X [facility] Work Phone: [phone] Comment on above: CALCULATIONS OF DENIS MATED GFR ARE PERFORMED USING THE MDRD STUDY EQUATION FOR THE IDMS-TRACEABLE CREATININE METHODS. CLIN CHEM 2007;53:766-72 [email or web address] 1:8080 /musescripts/museweb.dll?R etrieveTestByDateTime?Rachel oriPU=[id number]&Date=11-14&Time=09%3a51%3a40%3a 00&TestType=ECG&Site=12&Ou tputType=PDF&Ext=PDF EK-Ncpmbxr-W [facility] Work Phone: [phone] Normal sinus rhythm MG-Burton rgeryS [facility] Work Phone: 51 Normal TS-Bglonyg-Q [facility] Work Phone: [phone] RJ-Vaumyek-L [facility] Work Phone: [phone] JH-Prfcmsb-M [facility] Work Phone: [phone] YL-Pfppkvh-I [facility] Work Phone: [phone] WG-Hsfhwmw-R [facility] Work Phone: [phone] GG-Juebugk-C [facility] Work Phone: [phone] 1 BH-Vrpgudq-V [facility] Work Phone: 51 1 YH-Undephq-S [facility] Work Phone: 50 1 QL-Bjivnso-M [facility] Work Phone: [phone] XO-Mbzqusw-L [facility] Work Phone: [phone] XM-Lpjgkgp-D [facility] Work Phone: [phone] VC-Jxdacyu-M [facility] Work Phone: [phone] SS-Jyrkpdi-P [facility] Work Phone: [phone] OB-Bwcupba-F [facility] Work Phone: [phone] PF-Jdpnrtm-W [facility] Work Phone: PET[facility] MELANOMA INITIAL STAGING Patient Name: [...] leg biopsy-proven melanoma. COMPARISON: None. ACCESSION NUMBER(S): [id number] ORDERING CLINICIAN: ALEX TRAMMELL TECHNIQUE: DIVISION OF [...] CODING: Initial Treatment Strategy (PI) CALIBRATION: Dose Mwrhnyzcl-wp-Ybwg Interval (mins): 72 min Mediastinal bloodpool SUV [...] as stated. This study was interpreted at [facility]. Electronically signed by: IVELISSE OVALLE MD Normal [facility] Office Visit (Oncology Surge ry)on 10-23-2020 Follow-up [...] a prior mole. The patient moved from [place] 8 years ago and has not established [...] medical conditions Social history: Lives in [facility] [place] independently. Has 2 dogs. Walks regularly. Denies tobacco, alcohol, and drug use. Has extended family in [place] Allergies: No known drug allergies ROS: The [...] (more content not included)... Normal [facility] Surgical Pathology Depar tmenton 10-16-2020 [facility] Surgical Pathology Department Name THERESA LUU Pathologist: SHER DIAS MD Date of Procedure: 10/16/2020 Date Received: 10/31/2020 Date Reported 11/02/2020 Submitting Physician: SURAJ MELGAR MD Location: [facility] FINAL DIAGNOSIS RESULTS OF ANCILLARY TESTING ORDERED [...] extraction and testing are performed in the [facility] ([facility]) located at [address] [place] [address] (CLIA License #[id number], CAP #[id number]). This laboratory developed test was developed and its analytical performance characteristics have been determined by [facility]. This test has not been cleared or approved by the FDA; however, the FDA has determined that such approval is not necessary. The [facility] is certified under the [...] as m (more content not included)... Normal [facility] Comment on above: Performed By: #### U [facility] #### [facility] Surgical Pathology Department [address] [facility] [address] Vital Signs Date Time Vital Sign Value Performing Clinician Facility 01-22-2024 09:19-0400 Body temperature 98 [degF] DO [employer] Work Phone: [facility] 01-22-2024 09:19-0400 Body weight 85.72 kg DO [employer] Work Phone: [facility] 01-22-2024 09:19-0400 Diastolic blood pressure 64 mm[Hg] DO [employer] Work Phone: [facility] 01-22-2024 09:19-0400 Heart rate 80 /min DO [employer] Work Phone: [facility] 01-22-2024 09:19-0400 Respiratory rate 20 /min DO [employer] Work Phone: [facility] 01-22-2024 09:19-0400 SaO2% (BldA) [Mass fraction] 96 % DO [employer] Work Phone: [facility] 01-22-2024 09:19-0400 Systolic blood pressure 134 mm[Hg] DO [employer] Work Phone: [facility] 12-25-2023 13:25-0400 Body temperature 97.8 [degF] DO Yoni Furlong Work Phone: [facility] 12-25-2023 13:25-0400 Diastolic blood pressure 72 mm[Hg] DO Yoni Furlong Work Phone: [facility] 12-25-2023 13:25-0400 Heart rate 99 /min DO Yoni Furlong Work Phone: [facility] 12-25-2023 13:25-0400 Respiratory rate 16 /min DO Yoni Furlong Work Phone: [facility] 12-25-2023 13:25-0400 SaO2% (BldA) [Mass fraction] 95 % DO Yoni Furlong Work Phone: [facility] 12-25-2023 13:25-0400 Systolic blood pressure 124 mm[Hg] DO Yoni Furlong Work Phone: [facility] 09-30-2023 16:29-0400 Body height 157.5 cm Virginiabrenda Mixon PROGRAMMER DEVELOPER-MEDIA PRODUCTION SUPPORT MANAGER Work Phone: [facility] [employer] [facility] 09-30-2023 16:29-0400 Body mass index (BMI) [Ratio] 34.42 kg/m2 Virginiabrenda Mixon PROGRAMMER DEVELOPER-MEDIA PRODUCTION SUPPORT MANAGER Work Phone: [email or web address] 09-30-2023 16:29-0400 Body temperature 99.19 [degF] Virginia Apurva PROGRAMMER DEVELOPER-MEDIA PRODUCTION SUPPORT MANAGER Work Phone: [employer] [facility] 09-30-2023 16:29-0400 Body weight 85.37 kg Virginia Apurva PROGRAMMER DEVELOPER-MEDIA PRODUCTION SUPPORT MANAGER Work Phone: [facility] 09-30-2023 16:29-0400 Diastolic blood pressure 60 mm[Hg] Virginia Apurva PROGRAMMER DEVELOPER-MEDIA PRODUCTION SUPPORT MANAGER Work Phone: [email or web address] 09-30-2023 16:29-0400 Heart rate 94 /min Virginia Apurva PROGRAMMER DEVELOPER-MEDIA PRODUCTION SUPPORT MANAGER Work Phone: [facility] [employer] 09-30-2023 16:29-0400 SaO2% (BldA) [Mass fraction] 96 % Virginia SOLIS Work Phone: [facility] [employer] [facility] 09-30-2023 16:29-0400 Systolic blood pressure 120 mm[Hg] Virginia SOLIS Work Phone: [facility] [employer] [facility] 09-15-2023 16:00-0500 Body height 157.5 cm Yoni Furlong DO Work Phone: [facility] [employer] 09-15-2023 16:00-0500 Body mass index (BMI) [Ratio] 34.84 kg/m2 Yoni Furlong DO Work Phone: [facility] [employer] 09-15-2023 16:00-0500 Body temperature 98.91 [degF] Yoni Furlong DO Work Phone: [facility] [employer] [facility] 09-15-2023 16:00-0500 Body weight 86.41 kg Yoni Furlong DO Work Phone: [facility] [employer] 09-15-2023 16:00-0500 Diastolic blood pressure 50 mm[Hg] Yoni Furlong DO Work Phone: [facility] [employer] 09-15-2023 16:00-0500 Heart rate 80 /min Yoni Furlong DO Work Phone: [facility] [employer] 09-15-2023 16:00-0500 SaO2% (BldA) [Mass fraction] 96 % Yoni Furlong DO Work Phone: [facility] [employer] 09-15-2023 16:00-0500 Systolic blood pressure 130 mm[Hg] Yoni Furlong DO Work Phone: [email or web address] 08-07-2023 11:24-0500 Body temperature 98.2 [degF] DO [employer] Work Phone: [facility] 08-07-2023 11:24-0500 Body weight 89.35 kg DO Yoni Furlong Work Phone: [facility] 08-07-2023 11:24-0500 Diastolic blood pressure 70 mm[Hg] DO Yoni Furlong Work Phone: [facility] 08-07-2023 11:24-0500 Heart rate 88 /min DO Yoni Furlong Work Phone: [facility] 08-07-2023 11:24-0500 Respiratory rate 18 /min DO Yoni Furlong Work Phone: [facility] 08-07-2023 11:24-0500 SaO2% (BldA) [Mass fraction] 98 % DO Yoni Furlong Work Phone: [facility] 08-07-2023 11:24-0500 Systolic blood pressure 151 mm[Hg] DO Yoni Furlong Work Phone: [facility] 07-14-2023 13:32-0500 Body temperature 98.2 [degF] DO Yoni Furlong Work Phone: [facility] 07-14-2023 13:32-0500 Diastolic blood pressure 78 mm[Hg] DO Yoni Furlong Work Phone: [facility] 07-14-2023 13:32-0500 Heart rate 81 /min DO Yoni Furlong Work Phone: [facility] 07-14-2023 13:32-0500 Respiratory rate 18 /min DO Yoni Furlong Work Phone: [facility] 07-14-2023 13:32-0500 SaO2% (BldA) [Mass fraction] 97 % DO Yoni Furlong Work Phone: [facility] 07-14-2023 13:32-0500 Systolic blood pressure 113 mm[Hg] DO Yoni Furlong Work Phone: [facility] 03-24-2023 10:14-0400 Body height 160.02 cm DO Yoni Furlong Work Phone: [facility] 03-06-2023 13:49-0400 Body temperature 97.8 [degF] DO Yoni Furlong Work Phone: [facility] 03-06-2023 13:49-0400 Body weight 89.35 kg DO Yoni Furlong Work Phone: [facility] 03-06-2023 13:49-0400 Diastolic blood pressure 71 mm[Hg] DO Yoni Furlong Work Phone: [facility] 03-06-2023 13:49-0400 Heart rate 87 /min DO Yoni Furlong Work Phone: [facility] 03-06-2023 13:49-0400 Respiratory rate 16 /min DO Yoni Furlong Work Phone: [facility] 03-06-2023 13:49-0400 SaO2% (BldA) [Mass fraction] 94 % DO Yoni Furlong Work Phone: [facility] 03-06-2023 13:49-0400 Systolic blood pressure 139 mm[Hg] DO Yoni Furlong Work Phone: [facility] 01-27-2023 10:30-0400 Body temperature 97.5 [degF] Kimber Lacy Other [employer] [facility] [employer] Other 01-27-2023 10:30-0400 Body weight 87.54 kg Kimber Lacy Other [employer] [facility] [employer] Other 01-27-2023 10:30-0400 Diastolic blood pressure 80 mm[Hg] Kimber Lacy Other [employer] [facility] [employer] Other 01-27-2023 10:30-0400 SaO2% (BldA) [Mass fraction] 96 % Kimber Lacy Other [employer] Other 01-27-2023 10:30-0400 Systolic blood pressure 159 mm[Hg] Kimber Lacy Other [employer] Other 01-27-2023 10:23-0400 Body temperature 97.5 [degF] DO Yoni Furlong Work Phone: [facility] 01-27-2023 10:23-0400 Body weight 88.49 kg DO Yoni Furlong Work Phone: [facility] 01-27-2023 10:23-0400 Diastolic blood pressure 80 mm[Hg] DO Yoni Furlong Work Phone: [facility] 01-27-2023 10:23-0400 Heart rate 90 /min DO Yoni Furlong Work Phone: [facility] 01-27-2023 10:23-0400 Respiratory rate 18 /min DO Yoni Furlong Work Phone: [facility] 01-27-2023 10:23-0400 SaO2% (BldA) [Mass fraction] 96 % DO Yoni Furlong Work Phone: [facility] 01-27-2023 10:23-0400 Systolic blood pressure 159 mm[Hg] DO Yoni Furlong Work Phone: [facility] 12-30-2022 09:56-0400 Body weight 88.45 kg DO Yoni Furlong Work Phone: [facility] 12-30-2022 08:26-0400 Body temperature 97.8 [degF] DO Yoni Furlong Work Phone: [facility] 12-30-2022 08:26-0400 Body weight 88.45 kg DO Yoni Furlong Work Phone: [facility] 12-30-2022 08:26-0400 Diastolic blood pressure 81 mm[Hg] DO Yoni Furlong Work Phone: [facility] 12-30-2022 08:26-0400 Heart rate 86 /min DO Yoni Furlong Work Phone: [facility] 12-30-2022 08:26-0400 Respiratory rate 16 /min DO Yoni Furlong Work Phone: [facility] 12-30-2022 08:26-0400 SaO2% (BldA) [Mass fraction] 98 % DO Yoni Furlong Work Phone: [facility] 12-30-2022 08:26-0400 Systolic blood pressure 132 mm[Hg] DO Yoni Furlong Work Phone: [facility] 09-08-2022 11:09-0500 Body weight 90.2 kg DO Yoni Furlong Work Phone: [facility] 09-08-2022 09:52-0500 Body temperature 97.9 [degF] DO Yoni Furlong Work Phone: [facility] 09-08-2022 09:52-0500 Body weight 90.2 kg DO Yoni Furlong Work Phone: [facility] 09-08-2022 09:52-0500 Diastolic blood pressure 82 mm[Hg] DO Yoni Furlong Work Phone: [facility] 09-08-2022 09:52-0500 Heart rate 78 /min DO Yoni Furlong Work Phone: [facility] 09-08-2022 09:52-0500 Respiratory rate 20 /min DO Yoni Furlong Work Phone: [facility] 09-08-2022 09:52-0500 SaO2% (BldA) [Mass fraction] 97 % DO Yoni Furlong Work Phone: [facility] 09-08-2022 09:52-0500 Systolic blood pressure 137 mm[Hg] DO Yoni Furlong Work Phone: [facility] 08-11-2022 11:25-0500 Body weight 89.4 kg DO Yoni Furlong Work Phone: [facility] 08-11-2022 10:28-0500 Body height 160.02 cm DO Yoni Furlong Work Phone: [facility] 08-11-2022 10:28-0500 Body temperature 97.4 [degF] DO Yoni Furlong Work Phone: [facility] 08-11-2022 10:28-0500 Diastolic blood pressure 68 mm[Hg] DO Yoni Furlong Work Phone: [facility] 08-11-2022 10:28-0500 Heart rate 82 /min DO Yoni Furlong Work Phone: [facility] 08-11-2022 10:28-0500 Respiratory rate 20 /min DO Yoni Furlong Work Phone: [facility] 08-11-2022 10:28-0500 SaO2% (BldA) [Mass fraction] 98 % DO Yoni Furlong Work Phone: [facility] 08-11-2022 10:28-0500 Systolic blood pressure 132 mm[Hg] DO Yoni Furlong Work Phone: [facility] 06-23-2022 12:05-0500 Body weight 88.6 kg DO Yoni Furlong Work Phone: [facility] 06-23-2022 10:44-0500 Body temperature 97.9 [degF] DO Yoni Furlong Work Phone: [facility] 06-23-2022 10:44-0500 Body weight 88.6 kg DO Yoni Furlong Work Phone: [facility] 06-23-2022 10:44-0500 Diastolic blood pressure 74 mm[Hg] DO Yoni Furlong Work Phone: [facility] 06-23-2022 10:44-0500 Heart rate 80 /min DO Yoni Furlong Work Phone: [facility] 06-23-2022 10:44-0500 Respiratory rate 18 /min DO Yoni Furlong Work Phone: [facility] 06-23-2022 10:44-0500 SaO2% (BldA) [Mass fraction] 98 % DO Yoni Furlong Work Phone: [facility] 06-23-2022 10:44-0500 Systolic blood pressure 141 mm[Hg] DO Yoni Furlong Work Phone: [facility] 06-02-2022 10:29-0500 Body temperature 97.7 [degF] DO Yoni Furlong Work Phone: [facility] 06-02-2022 10:29-0500 Body weight 89.9 kg DO Yoni Furlong Work Phone: [facility] 06-02-2022 10:29-0500 Diastolic blood pressure 82 mm[Hg] DO Yoni Furlong Work Phone: [facility] 06-02-2022 10:29-0500 Heart rate 92 /min DO Yoni Furlong Work Phone: [facility] 06-02-2022 10:29-0500 Respiratory rate 16 /min DO Yoni Furlong Work Phone: [facility] 06-02-2022 10:29-0500 SaO2% (BldA) [Mass fraction] 97 % DO Yoni Furlong Work Phone: [facility] 06-02-2022 10:29-0500 Systolic blood pressure 150 mm[Hg] DO Yoni Furlong Work Phone: [facility] 05-02-2022 15:07-0400 Body weight 92.8 kg DO Yoni Furlong Work Phone: [facility] 05-02-2022 15:07-0400 Diastolic blood pressure 83 mm[Hg] DO Yoni Furlong Work Phone: [facility] 05-02-2022 15:07-0400 Heart rate 87 /min DO Yoni Furlong Work Phone: [facility] 05-02-2022 15:07-0400 Respiratory rate 20 /min DO Yoni Furlong Work Phone: [facility] 05-02-2022 15:07-0400 SaO2% (BldA) [Mass fraction] 98 % DO Yoni Furlong Work Phone: [facility] 05-02-2022 15:07-0400 Systolic blood pressure 146 mm[Hg] DO Yoni Furlong Work Phone: [facility] 04-28-2022 09:07-0400 Diastolic blood pressure 76 mm[Hg] DO Yoni Furlong Work Phone: [facility] 04-28-2022 09:07-0400 Heart rate 93 /min DO Yoni Furlong Work Phone: [facility] 04-28-2022 09:07-0400 Respiratory rate 18 /min DO Yoni Furlong Work Phone: [facility] 04-28-2022 09:07-0400 SaO2% (BldA) [Mass fraction] 95 % DO Yoni Furlong Work Phone: [facility] 04-28-2022 09:07-0400 Systolic blood pressure 148 mm[Hg] DO Yoni Furlong Work Phone: [facility] 04-28-2022 08:11-0400 Body height 157.48 cm DO Yoni Furlong Work Phone: [facility] 04-28-2022 08:11-0400 Body temperature 98.6 [degF] DO Yoni Furlong Work Phone: [facility] 04-28-2022 08:11-0400 Body weight 91.17 kg DO Yoni Furlong Work Phone: [facility] 04-21-2022 08:54-0400 Body height 160.02 cm DO Yoni Furlong Work Phone: [facility] 04-21-2022 08:54-0400 Body temperature 98 [degF] DO Yoni Furlong Work Phone: [facility] 04-21-2022 08:54-0400 Body weight 91.48 kg DO Yoni Furlong Work Phone: [facility] 04-21-2022 08:54-0400 Diastolic blood pressure 87 mm[Hg] DO Yoni Furlong Work Phone: [facility] 04-21-2022 08:54-0400 Heart rate 85 /min DO Yoni Furlong Work Phone: [facility] 04-21-2022 08:54-0400 Respiratory rate 20 /min DO Yoni Furlong Work Phone: [facility] 04-21-2022 08:54-0400 SaO2% (BldA) [Mass fraction] 97 % DO Yoni Furlong Work Phone: [facility] 04-21-2022 08:54-0400 Systolic blood pressure 161 mm[Hg] DO Yoni Furlong Work Phone: [facility] 10-25-2021 09:45-0400 Body temperature 98 [degF] MD Alex Trammell Work Phone: [facility] 10-25-2021 09:45-0400 Body weight 90.94 kg MD Alex Trammell Work Phone: [facility] 10-25-2021 09:45-0400 Diastolic blood pressure 70 mm[Hg] MD Alex Trammell Work Phone: [facility] 10-25-2021 09:45-0400 Heart rate 90 /min MD Alex Trammell Work Phone: [facility] 10-25-2021 09:45-0400 Respiratory rate 20 /min MD Alex Trammell Work Phone: [facility] 10-25-2021 09:45-0400 SaO2% (BldA) [Mass fraction] 98 % MD Alex Trammell Work Phone: [facility] 10-25-2021 09:45-0400 Systolic blood pressure 141 mm[Hg] MD Alex Trammell Work Phone: [facility] 10-07-2021 08:13-0400 Body temperature 98.1 [degF] DO Sly Adamowicz II Work Phone: [facility] 10-07-2021 08:13-0400 Body weight 92.8 kg DO Sly Adamowicz II Work Phone: [facility] 10-07-2021 08:13-0400 Diastolic blood pressure 78 mm[Hg] DO Sly Adamowicz II Work Phone: [facility] 10-07-2021 08:13-0400 Heart rate 96 /min DO Sly Adamowicz II Work Phone: [facility] 10-07-2021 08:13-0400 Respiratory rate 20 /min DO Sly Benson II Work Phone: [facility] 10-07-2021 08:13-0400 SaO2% (BldA) [Mass fraction] 97 % DO Sly Benson II Work Phone: [facility] 10-07-2021 08:13-0400 Systolic blood pressure 144 mm[Hg] DO Sly Benson II Work Phone: [facility] 10-07-2021 08:05-0400 Body height 160.02 cm DO Sly Benson II Work Phone: [facility] 09-17-2021 15:09-0500 Body temperature 98.6 [degF] Yoni Muller Work Phone: [facility] [address] Work Phone: 09-17-2021 15:09-0500 Body weight 89.54 kg Yoni Proloedmar Work Phone: [facility]ksddx[facility] [address] Work Phone: 09-17-2021 15:09-0500 Diastolic blood pressure 81 mm[Hg] Yoni Proloedmar Work Phone: NS-Chpyscx[facility] [address] Work Phone: 09-17-2021 15:09-0500 Heart rate 101 /min Yoni Prolong Work Phone: [facility]orne[facility]ygxb[facility]Chi [facility] 4605 Work Phone: 09-17-2021 15:09-0500 Respiratory rate 18 /min Yoni Prolong Work Phone: NR-Bkxocky-UnvnwlaChi [facility] 460 Work Phone: 09-17-2021 15:09-0500 Systolic blood pressure 158 mm[Hg] Yoni Prolong Work Phone: RO-Rbpwxxa-FqjlwemChi [facility] 4600 Work Phone: 01-22-2021 14:42-0400 Body weight 88.03 kg Yoni G Furlong Work Phone: QH-Bvseivk-Wqqwdzmt 150 Work Phone: 01-22-2021 14:42-0400 Diastolic blood pressure 84 mm[Hg] Yoni G Furlong Work Phone: WE-Hlverji-Qnszaspw 150 Work Phone: 01-22-2021 14:42-0400 Heart rate 102 /min Yoni G Furlong Work Phone: FO-Vmsixij-Jtmdytps 150 Work Phone: 01-22-2021 14:42-0400 SaO2% (BldA) [Mass fraction] 95 % Yoni G Furlong Work Phone: MH-Holatjz-Tkdifqaq 150 Work Phone: 01-22-2021 14:42-0400 Systolic blood pressure 149 mm[Hg] Yoni G Furlong Work Phone: VL-Vvzryex-Cetfehay 150 Work Phone: 12-25-2020 15:23-0400 Body weight 89.36 kg Yoni G Furlong Work Phone: [facility] Work Phone: 12-25-2020 15:23-0400 Diastolic blood pressure 85 mm[Hg] Yoni G Furlong Work Phone: [facility] Work Phone: 12-25-2020 15:23-0400 Heart rate 105 /min Yoni G Furlong Work Phone: [facility] Work Phone: 12-25-2020 15:23-0400 SaO2% (BldA) [Mass fraction] 95 % Yoni G Furlong Work Phone: [facility] Work Phone: 12-25-2020 15:23-0400 Systolic blood pressure 163 mm[Hg] Yoni Prolong Work Phone: [facility] Work Phone: 12-04-2020 15:07-0400 Diastolic blood pressure 84 mm[Hg] Yoni Larson Furlong Work Phone: [facility] SM Work Phone: 12-04-2020 15:07-0400 Heart rate 111 /min Yoni Prolong Work Phone: [facility] SM Work Phone: 12-04-2020 15:07-0400 SaO2% (BldA) [Mass fraction] 98 % Yoni Prolong Work Phone: [facility] SM Work Phone: 12-04-2020 15:07-0400 Systolic blood pressure 154 mm[Hg] Yoni Prolong Work Phone: [facility] SM Work Phone: 11-27-2020 15:10-0400 Body weight 90.72 kg Yoni Prolong Work Phone: [facility] Work Phone: 11-27-2020 15:10-0400 Diastolic blood pressure 79 mm[Hg] Yoni Larson Furlong Work Phone: [facility] Work Phone: 11-27-2020 15:10-0400 Heart rate 98 /min Yoni Prolong Work Phone: [facility] Work Phone: 11-27-2020 15:10-0400 SaO2% (BldA) [Mass fraction] 96 % Yoni Muller Work Phone: [facility] Work Phone: 11-27-2020 15:10-0400 Systolic blood pressure 138 mm[Hg] Yoni Muller Work Phone: [facility] Work Phone: 1945 23:00-0500 >na< Quentin Fitzpatrick Dept. of Eleazar matology Encounters Encounter Date Encounter Type Care Provider Facility Start: 05-13-2024 ambulatory Alex Trammell Facility:[facility] Start: 01-22-2024 Registered Recurring DO Yoni Prolong Work Phone: [facility] Work Phone: Start: 01-22-2024 End: 01-22-2024 ambulatory DO Yoni Prolong Work Phone: [facility] Work Phone: Start: 01-22-2024 End: 01-22-2024 Patient encounter procedure DO Yonijanee Prolong Work Phone: [facility] Work Phone: Start: 09-30-2023 End: 09-30-2023 Office outpatient visit 15 minutes 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 PROGRAMMER DEVELOPER-MEDIA PRODUCTION SUPPORT MANAGER Work Phone: [facility] - [...] hypertension with chronic kidney disease, stage III ([facility]) (Primary Dx); Hyperlipidemia, unspecified hyperlipidemia type; Malignant [...] Phone: [facility] Work Phone: Start: 08-07-2023 End: 08-07-2023 Patient encounter procedure DO Yoni Furlong Work Phone: [facility] Work Phone: Start: 08-07-2023 End: 08-07-2023 ambulatory DO Yoni Furlong Work Phone: [facility] Work Phone: Start: 03-06-2023 End: 03-06-2023 ambulatory DO Yoni Furlong Work Phone: [facility] Work Phone: Start: 03-06-2023 End: 03-06-2023 Registered Recurring DO Yoni Furlong Work Phone: [facility] Work Phone: Start: 01-27-2023 Office outpatient vi sit 25 minutes Kimber Lacy [facility] Start: 01-27-2023 End: 01-27-2023 ambulatory DO Yoni Furlong Work Phone: [facility] Work Phone: Start: 01-27-2023 End: 01-27-2023 Registered Recurring DO Yoni Furlong Work Phone: [facility] Work Phone: Start: 12-30-2022 End: 12-30-2022 ambulatory DO Yoni Furlong Work Phone: [facility] Work Phone: Start: 12-30-2022 End: 12-30-2022 Registered Recurring DO Yoni Furlong Work Phone: [facility] Work Phone: Start: 12-30-2022 End: 12-30-2022 ambulatory DO Yoni Furlong Work Phone: [facility] Work Phone: Start: 12-30-2022 End: 12-30-2022 Registered Recurring DO Yoni Furlong Work Phone: [facility] Work Phone: Start: 10-03-2022 End: 10-04-2022 ambulatory SLY BENSON Facility:[facility]1 Start: 09-08-2022 End: 09-08-2022 ambulatory DO Yoni Furlong Work Phone: [facility] Work Phone: Start: 09-08-2022 End: 09-08-2022 Registered Recurring DO Yoni Furlong Work Phone: [facility] Work Phone: Start: 09-05-2022 End: 09-06-[address] YONI MULLER Facility:[facility]1 Start: 08-11-2022 End: 08-11-2022 ambulatory DO Yoni Furlong Work Phone: [facility] Work Phone: Start: 08-11-2022 End: 08-11-2022 Registered Recurring DO Yoni Furlong Work Phone: [facility] Work Phone: Start: 07-21-2022 End: 07-22-2022 ambulatory SLY BENSON Facility:[facility]1 Start: 06-23-2022 End: 06-23-2022 ambulatory DO Yoni Furlong Work Phone: [facility] Work Phone: Start: 06-23-2022 End: 06-23-2022 Registered Recurring DO Yoni Furlong [facility] Start: 06-23-2022 End: 06-23-2022 ambulatory DO Yoni Furlong Work Phone: [facility] Work Phone: Start: 06-23-2022 End: 06-23-2022 Registered Recurring DO Yoni Furlong [facility] Start: 06-20-2022 End: 06-21-[address] YONI MULLER Facility:[facility]1 Start: 06-02-2022 End: 06-02-2022 ambulatory DO Yoni Furlong Work Phone: [facility] Work Phone: Start: 06-02-2022 End: 06-02-2022 Registered Recurring DO Yoni Furlong [facility] Start: 05-30-2022 End: 05-31-2022 ambulatory SLY BENSON Facility:[facility]1 Start: 05-13-2022 End: 05-14-2022 ambulatory SLY BENSON Facility:[facility] Start: 05-10-2022 End: 05-11-2022 ambulatory SLY BENSON Facility:[facility]1 Start: 05-02-2022 End: 05-02-2022 ambulatory DO Yoni Furlong Work Phone: [facility] Work Phone: Start: 05-02-2022 End: 05-02-2022 Registered Recurring DO Yoni Furlong Work Phone: [facility] Start: 04-28-2022 End: 04-28-2022 Admission to same day surgery center DO Yoni Furlong Work Phone: [facility]Ultrasound [facility] [place] Start: 04-28-2022 End: 04-28-2022 ambulatory DO Yoni Furlong Work Phone: [facility] Work Phone: Start: 04-21-2022 End: 04-21-2022 ambulatory DO Yoni Furlong Work Phone: [facility] Work Phone: Start: 04-21-2022 End: 04-21-2022 Registered Recurring DO Yoni Furlong Work Phone: [facility] Start: 03-26-2022 End: 03-26-2022 Patient encounter procedure DO Yoni Furlong Work Phone: [facility]-CT Scan [facility] [place] Start: 10-25-2021 End: 10-25-2021 Registered Recurring MD Alex Trammell Work Phone: [facility] Start: 10-10-2021 End: 10-10-2021 Patient encounter procedure DO Sly Xiaoicz II Work Phone: [facility]-CT Scan [facility] [place] Start: 10-07-2021 End: 10-07-2021 Registered Recurring DO Sly Adamowicz II Work Phone: [facility] Start: 10-07-2021 Registered Recurring DO Clinton law Adamowicz II Work Phone: [facility] Start: 09-24-2021 AUDIT Yoni Holloway ng Work Phone: [facility] 4600 Work Phone: Start: 09-23-2021 Chart Update Yoni Holloway ng Work Phone: [facility] Work Phone: Start: 09-17-2021 Office outpatient ne w 30 minutes Yoni Muller Work Phone: SA-Tmrqfup-MwfgacjChi [facility] 4600 Work Phone: Start: 09-17-2021 Office outpatient vi sit 15 minutes Yoni Muller Work Phone: U[facility]-Wjicede-Nxban Main Work Phone: Start: 01-22-2021 Office outpatient vi sit 15 minutes Yoni Muller Work Phone: VG-Pfdlkug-Xopkknta 150 Work Phone: Start: 01-12-2021 AUDIT Yoni hyatt Work Phone: [facility] Work Phone: Start: 12-25-2020 Office outpatient vi sit 25 minutes Yoni Muller Work Phone: LP-Ifbczky-Tdygrqyn 150 Work Phone: Start: 12-25-2020 Patient encounter procedure Yoni Muller Work Phone: [facility] Work Phone: Start: 12-17-2020 AUDIT Yoni hyatt Work Phone: [facility] Work Phone: Start: 12-04-2020 FUV, Provider: Alex Trammell, Status: Pen, Time: 3:00 PM Yoni Muller Work Phone: [facility] Work Phone: Start: 12-04-2020 Patient encounter procedure Yoni Muller Work Phone: [facility] SM Work Phone: Start: 11-27-2020 Postop follow up vis it related to original px Yoni G Furlong Work Phone: [facility] Work Phone: Start: 11-27-2020 Quentin Fitzpatrick [...] 09-30-2023 Adult depression screening assessment 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 APRN-MEDIA PRODUCTION SUPPORT MANAGER Work Phone: Start: 09-15-2023 Adult depression screening [...] Phone: Start: 11-27-2020 Quentin Fitzpatrick Start: 11-13-2020 Mandaen Schemarian Start: 10-23-2020 Quentin Fitzpatrick Counseling Kimber Christiano ortiz Other Plan of Treatment Date Care Activity Detail Author Start: 09-29-2024 Adult BMI Screening Adult BMI Screen ing [facility] Start: 09-29-2024 Depression Screening Depression Scre ening [facility] Start: 09-29-2024 Fall Risk Screening Fall Risk Screen ing [facility] Start: 09-29-2024 Tobacco Screening Tobacco Screening [facility] Start: 09-14-2024 Adult BMI Screening Adult BMI Screen ing [facility] Start: 09-14-2024 Depression Screening Depression Scre ening [facility] Start: 09-14-2024 Fall Risk Screening Fall Risk Screen ing [facility] Start: 09-14-2024 Tobacco Screening Tobacco Screening [facility] Start: 03-17-2024 End: 03-17-2024 Patient encounter procedure 03/17/2024 4:15 PM EDT [facility] [address] [place] [id number] Yoni Muller DO [address] [place] [address] [facility] Start: 02-07-2024 Administration of va ricella zoster vaccine Zoster (Shingles) Vaccine (1 of 2) [facility] Comment on above: Postponed from 10/02 (Patient Refused) Start: 02-07-2024 Adult BMI Screening Adult BMI Screen ing [facility] Start: 02-07-2024 Depression Screening Depression Scre ening [facility] Start: 02-07-2024 DTaP,Tdap and Td Vac cines (1 - Tdap) DTaP,Tdap and Td Vaccines (1 - Tdap) [facility] Comment on above: Postponed from 10/02 (Patient Refused) Start: 02-07-2024 Tobacco Screening Tobacco Screening [facility] Start: 01-22-2024 [facility] Start: 01-11-2024 Medicare Annual Well ness Visit Medicare Annual Wellness Visit [facility] Comment on above: Postponed from 10/02 (Patient Refused) Start: 12-25-2023 [facility] Start: 12-25-2023 [facility] Start: 11-27-2023 [facility] Start: 10-30-2023 [facility] Start: 10-30-2023 [facility] Start: 10-11-2023 Influenza vaccination Influenza Vacc ine [facility] Comment on above: Postponed from 03/13 (Patient Refused) Start: 2023 [facility] Start: 2023 [facility] Start: 09-15-2023 End: 09-15-2023 Patient encounter procedure 09/15/2023 4:00 PM EST [facility] [address] [place] [address] Yoni Muller DO [address] [place] [address] [facility] Start: 09-04-2023 [facility] Start: 08-07-2023 [facility] Start: 08-07-2023 [facility] Start: 08-06-2023 End: 08-07-2023 [facility] Start: 08-06-2023 Adrenocorticotropic hormone measurement [facility] Start: 07-14-2023 [facility] Start: 07-14-2023 [facility] Start: 06-17-2023 Fall Risk Screening Fall Risk Screen ing [facility] Start: 06-16-2023 [facility] Start: 05-19-2023 [facility] Start: 04-21-2023 [facility] Start: 03-24-2023 [facility] Start: 03-13-2023 COVID-19 Vaccine () COVID-19 Vaccine () [facility] Start: 03-13-2023 Influenza vaccination Influenza Vacc ine [facility] Start: 02-24-2023 [facility] Start: 01-27-2023 [facility] Start: 01-27-2023 [facility] Start: 12-30-2022 Adrenocorticotropic hormone measurement [facility] Start: 12-30-2022 [facility] Start: 12-30-2022 [facility] Start: 12-25-2022 [facility] Start: 12-01-2022 [facility] Start: 11-03-2022 [facility] Start: 10-06-2022 [facility] Start: 09-08-2022 [facility] Start: 09-08-2022 [facility] Start: 08-11-2022 [facility] Start: 07-23-2022 [facility] Start: 06-23-2022 [facility] Start: 06-23-2022 Adrenocorticotropic hormone measurement [facility] Start: 06-23-2022 [facility] Start: 06-02-2022 [facility] Start: 05-12-2022 End: 05-12-2022 [facility] Start: 05-12-2022 [facility] Start: 04-28-2022 [facility] Start: 04-28-2022 [facility] Start: 04-28-2022 Aspiration [facility] Start: 02-19-2021 FUV, Provider: Alex Trammell, Status: Pen, Time: 3:00 PM FUV, Provider: Alex Trammell, Status: Pen, Time: 3:00 PM GO-Uzcechf-Wijsnekq 150 Work Phone: Start: 01-22-2021 FUV, Provider: Alex Trammell, Status: Pen, Time: 3:00 PM FUV, Provider: Alex Trammell, Status: Pen, Time: 3:00 PM JJ-Oucflia-Wolndjha 150 Work Phone: Start: 12-25-2020 FUV, Provider: Alex Trammell, Status: Pen, Time: 3:00 PM FUV, Provider: Alex Trammell, Status: Pen, Time: 3:00 PM [facility] Work Phone: Start: 1963 Adult BMI Follow Up Plan Adult BMI Follow Up Plan [facility] Adrenocorticotropic hormone measurement [facility] Adrenocorticotropic hormone measurement [facility] Work Phone: Adrenocorticotropic hormone measurement [facility] Adrenocorticotropic hormone measurement [facility] Adrenocorticotropic hormone measurement [facility] Adrenocorticotropic hormone measurement [facility] Adrenocorticotropic hormone measurement [facility] Adrenocorticotropic hormone measurement [facility] Adrenocorticotropic hormone measurement [facility] Adrenocorticotropic hormone measurement [facility] Adrenocorticotropic hormone measurement [facility] Basophils [#/volume] in Blood by Automated count [facility] Basophils/100 leukoc ytes in Blood by Automated count [facility] Blood chemistry [facility] Blood chemistry [facility] Comprehensive metabo lic 1999 panel - Serum or Plasma [facility] Comprehensive metabo lic 1999 panel - Serum or Plasma [facility] Comprehensive metabo lic 1999 panel - Serum or Plasma [facility] Comprehensive metabo lic 1999 panel - Serum or Plasma [facility] Comprehensive metabo lic 1999 panel - Serum or Plasma [facility] Comprehensive metabo lic 1999 panel - Serum or Plasma [facility] Comprehensive metabo lic 1999 panel - Serum or Plasma [facility] Comprehensive metabo lic 1999 panel - Serum or Plasma [facility] Comprehensive metabo lic 1999 panel - Serum or Plasma [facility] Comprehensive metabo lic 1999 panel - Serum or Plasma [facility] Comprehensive metabo lic 1999 panel - Serum or Plasma [facility] Computed tomography for radiotherapy planning [facility] Cortisol [Mass/volum e] in Serum or Plasma [facility] Cortisol [Mass/volum e] in Serum or Plasma [facility] Cortisol [Mass/volum e] in Serum or Plasma [facility] Work Phone: Cortisol [Mass/volum e] in Serum or Plasma [facility] Cortisol [Mass/volum e] in Serum or Plasma [facility] CT Abdomen and Pelvi s W contrast IV [facility] CT Abdomen and Pelvi s W contrast IV [facility] CT Abdomen and Pelvi s W contrast IV [facility] CT Abdomen and Pelvi s W contrast IV [facility] CT Abdomen and Pelvi s W contrast IV [facility] CT Chest W contrast IV [facility] CT Chest W contrast IV [facility] CT Chest W contrast IV [facility] CT Chest W contrast IV [facility] CT Chest W contrast IV [facility] Eosinophils/100 leuk ocytes in Blood by Automated count [facility] Erythrocyte distribu tion width [Ratio] by Automated count [facility] Erythrocyte sediment ation rate by Photometric method [facility] Erythrocytes [#/volu me] in Blood [facility] Hematocrit [Volume F raction] of Blood [facility] Hemoglobin [Mass/vol ume] in Blood [facility] Hepatic function panel [facility] Hepatic function panel [facility] Homogenous nuclear A b pattern [Titer] in Serum [facility] Work Phone: Lactate dehydrogenas e [Enzymatic activity/volume] in Unspecified specimen [facility] Lactate dehydrogenas e [Enzymatic activity/volume] in Unspecified specimen [facility] Lactate dehydrogenas e [Enzymatic activity/volume] in Unspecified specimen [facility] Lactate dehydrogenas e [Enzymatic activity/volume] in Unspecified specimen [facility] Lactate dehydrogenas e [Enzymatic activity/volume] in Unspecified specimen [facility] Leukocytes [#/volume ] corrected for nucleated erythrocytes in Blood by Automated coun [facility] Leukocytes [#/volume ] in Blood [facility] Lipase measurement [facility] Lipase measurement [facility] Lipase measurement [facility] Lymphocytes [#/volum e] in Blood by Automated count [facility] Lymphocytes/100 leuk ocytes in Blood by Automated count [facility] MCH [Entitic mass] b y Automated count [facility] MCHC [Mass/volume] b y Automated count [facility] MCV [Entitic volume] by Automated count [facility] Monocytes [#/volume] in Blood by Automated count [facility] Monocytes/100 leukoc ytes in Blood by Automated count [facility] Neutrophils [#/volum e] in Blood by Automated count [facility] Neutrophils/100 leuk ocytes in Blood by Automated count [facility] Nuclear Ab [Titer] in Serum [facility] Work Phone: Nucleated erythrocyt es [Presence] in Blood by Automated count [facility] Patient Education [facility] Work Phone: Platelet mean volume [Entitic volume] in Blood by Automated count [facility] Platelets [#/volume] in Blood [facility] Thyrotropin [Units/v olume] in Serum or Plasma [facility] Thyrotropin [Units/v olume] in Serum or Plasma [facility] Thyrotropin [Units/v olume] in Serum or Plasma [facility] Thyrotropin [Units/v olume] in Serum or Plasma [facility] Thyrotropin [Units/v olume] in Serum or Plasma [facility] Thyrotropin [Units/v olume] in Serum or Plasma [facility] Thyrotropin [Units/v olume] in Serum or Plasma [facility] Thyroxine (T4) free [Mass/volume] in Serum or Plasma [facility] Thyroxine (T4) free [Mass/volume] in Serum or Plasma [facility] Work Phone: Thyroxine (T4) free [Mass/volume] in Serum or Plasma [facility] Thyroxine (T4) free [Mass/volume] in Serum or Plasma [facility] Thyroxine (T4) free [Mass/volume] in Serum or Plasma [facility] Thyroxine (T4) free [Mass/volume] in Serum or Plasma [facility] Ultrasonic guidance for needle biopsy [facility] Immunizations Immunization Date Immunization Notes Care Provider Fa cility 1945 pneumococcal conjuga te vaccine, 7 valent Quentin Fitzpatrick Dept. of Dermatology Payers Date Payer Category Payer Self-pay [id number] 2022 Medicare [id number] Private Health Insurance [id number] 1945 Unknown [id number] 1945 Unknown [id number] 2..840.1.696625.3.579.2.593 1945 Unknown [id number] 2.16.840.1.377223.3.579.2.593 1945 Unknown [id number] 2.16.840.1.872867.3.579.2.593 1945 Unknown [id number] 2.16.840.1.122148.3.579.2.593 1945 Unknown [id number] 2.16.840.1.154919.3.579.2.593 1945 Unknown [id number] 2.16.840.1.272158.3.579.2.593 1945 Unknown [id number] 2.16.840.1.713829.3.579.2.593 Unknown Unknown HCAP/HFA/FAP Active [id number] Unknown [id number] [id number] Unknown [id number] [id number] Social History Date Type Detail Facility Start: 10-23-2020 Dept. of Dermatology Start: 1945 Sex Assigned At Female [facility] Start: 10-07-2021 End: 03-06-2023 Tobacco smoking status NHIS Never smoked tobacco (finding) [facility] Start: 06-17-2022 End: 09-30-2023 Sex Assigned At [facility] [employer] Other Start: 06-17-2022 Tobacco use and exposure Smokeless tobacco non-user [facility] Start: 02-06-2023 End: 09-30-2023 Alcohol intake Current drinker of alcohol (finding) [facility] Start: 06-17-2022 End: 09-30-2023 History of Social function [facility] Do you belong to any clubs or organizations such as evangelical groups, unions, fraternal or athletic groups, or school groups? Yes [facility] Are you now , , , , never or living with a partner? [facility] How often to you hav e a drink containing alcohol? Monthly or less [facility] How many standard dr inks containing alcohol do you have on a typical day? 1 or 2 [facility] How often do you hav e 6 or more drinks on 1 occasion? Never [facility] How hard is it for y ou to pay for the very basics like food, housing, medical care, and heating Not hard at all [facility] Do you feel stress - tense, restless, nervous, or anxious, or unable to sleep at night because your mind is troubled all the time - these days [OSQ] Only a little [facility] Start: 06-17-2022 Alcohol Comment rarely [facility] [employer] [facility] Start: 1945 Sex Assigned At Not on file [facility] Has the [employer], [employer], or water company threatened to shut off services in your home in past 12Mo No [facility] [employer] [facility] Goals Date Patient Goal Desired Activity /State Clinical Notes 12-04-2012 to 09-30-2023 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, [employer] SUPPORT MANAGER - 09/30/2023 4:00 PM Madonna Muller, - 09/15/2023 4:00 PM EST Note Date & Type Note Facility 09-30-2023 History of Present illness Narrative [address] [facility] [id number] Patient: Theresa Luu Date of : 1945 [...] next 48 hrs so she went to [facility] ER on 09/23/23. ER placed [...] list. Past Medical History: Diagnosis Date Cancer ([facility]) Hyperlipidemia Hypertension Obesity Past Surgical History: Procedure [...] to see ortho. IRMA MARTINES APRN-CNP 10/04/23 1728 documented in this encounter [facility] [employer] 09-15-2023 History of Present illness Narrative Subjective [...] hypertension with chronic kidney disease, stage III ([facility]) - Basic Metabolic Panel; Future - CBC; Future - Magnesium; Future - Parathyroid Hormone, intact; Future - Phosphorus; Future - Vitamin D 25 hydroxy; Future - Uric acid; Future Her blood pressure is essentially at goal. Her stage 3 chronic kidney disease was discussed. She is using Advil nvpp-ooc-znxzudo and I recommended she use Tylenol instead [...] and high cholesterol. documented in this encounter [employer] 02-13-2023 Progress note Note Date/Time January 27, 2023 3:58pm [facility] [address] [place] [address] Progress Note Signed Patient: Theresa Luu MR#: [id number] : 1945 Acct:[id number] Age/Sex: 77 / F Adm Date: 3 Loc: XT Room: [facility] Dr: Sly Benson II DO Copies to: ~ Date of Service: 01/27/2023 Subjective History of Present Illness HPI: Madison is seen during immunotherapy today and we continue our discussion of goals of care/advance care planning. She has reviewed the making choices booklet and is planning to meet with an employment attorney to complete financial POA and business [...] [employer] 01/27/23 10:01/27/23 10:01/27/23 10:23 01/27/23 10:01/27/23 10:01/27/23 10:23 Patient was seen by Kristen Lacy, nurse practitioner. I reviewed the above note. Documented By: Kimber Lacy APRN 01/27/23 1556 Signed By: <Electronically signed by ANTOINETTE Lacy> 01/27/23 1558 <Electronically signed by DO Efren Burris> 02/13/23 1509 [facility] Work Phone: 1(546) 738-406507-18-2023 Evaluation note* Encounter Date Diagnosis Assessment Notes [...] of the order given to the patient. [employer] Other 06-20-2023 Progress note Author Senia Montez [facility] December 30, 2022 11:06am Note Date/Time December 30, 2022 8:35 am [facility] [place] [address] Hem/Onc Follow Up Note - OP Signed Patient: Theresa Luu MR#: [id number] : 1945 Acct:[id number] Age/Sex: 77 / F Type: REG RCR [...] leg melanoma removed by Dr. Trammell at [facility] in November 162020 with sentinel node [...] CT scans scheduled for at [facility]. She is doing well, no [...] for coordination of care (as documented) and qbvr-px-lfpw counseling of patient and/or family. [facility] - Medical History Medical History: Medical [...] By: <Electronically signed by ANTOINETTE Montez> 12/30/22 7359 [facility] Work Phone: 1(998) 247-266704-24-2023 Progress note Author Sly Benson [facility] November 03, 2022 10:27am Note Date/Time November 03, 2022 10: 22am [facility] at [address] [address] Hem/Onc Follow Up Note - OP Signed Patient: Theresa Luu MR#: [id number] : 1945 Acct:[id number] Age/Sex: 77 / F Type: REG RCR [...] Up Instructions: cont monthly nivolumab. f/u with [facility]YCHOMETRI[facility] in 2 months. cbc, cmp, tsh monthly. [...] leg melanoma removed by Dr. Trammell at [facility] in November 162020 with sentinel node [...] CT scans scheduled for at [facility]. She is doing well, no [...] for coordination of care (as documented) and avbx-sy-eexe counseling of patient and/or family. [facility] - Medical History Medical History: Medical [...] % (Auto) 59.6, Lymph % (Auto) 26.5, [place] % (Auto) 11.2, Eos % (Auto) 1.8, Baso % (Auto) 0.9, Nucleat RBC Rel Count 0.0, Neut # (Auto) 4.0, Lymph # (Auto) 1.8, [place] # (Auto) 0.8, Eos # (Auto) 0.1, [...] Benson II, DO> 11/03/22 1027 [facility] Work Phone: 1([phone] 268-271503-27-2023 Progress note Author Zenobia Parker [facility] October 06, 2022 11:42am Note Date/Time October 06, 2022 11: 28am [facility] [place] [id number] Hem/Onc Follow Up Note - OP Signed Patient: Theresa Luu MR#: [id number] : 1945 Acct:[id number] Age/Sex: 77 / F Type: REG RCR Copies to: DO Alex Acuña MD~ Subjective Date/Time of Service: Date of Service: 10/06/2022 Time of Service: : Chief Complaint: Patient is here today for [...] leg melanoma removed by Dr. Trammell at [facility] in November 162020 with sentinel node [...] CT scans scheduled for at [facility]. She is doing well, no [...] maybe 3 days. worse after hot showers. [employer] really works for this. 08/11/22 She is [...] 10 point review of systems is negative. [facility] - Medical History Medical History: Medical [...] for coordination of care (as documented) and jnfp-zi-atry counseling of patient and/or family. Dictated By: Zenobia Parker APRN DD/ 1127 Signed By: <Electronically signed by ANTOINETTE Parker> 10/06/22 1142 [facility] Work Phone: 1(438) 231-125503-20-2023 Progress note Author Bebeto Pandya [facility] September 29, 2022 1:11pm Note Date/Time September 29, 2022 9:4 5am [facility] [place] [address] Rad Onc Follow Up Note - OP Signed Patient: Theresa Luu MR#: [id number] : 1945 Acct:[id number] Age/Sex: 76 / F Type: REG RCR [...] a left lower leg melanoma removed at [facility] in November 162020 with sentinel node [...] get her first maintenance dose of the Effie on August 11, [address]. [address] [...] signed by Bebeto Pandya MD> 09/29/22 1311 [facility] Work Phone: 1([phone]) 700-603802-27-2023 Progress note Author Sly Benson [facility] September 08, 2022 10:18am Note Date/Time September 08, 2022 10:08am [facility] [place] [address] Hem/Onc Follow Up Note - OP Signed Patient: Theresa Luu MR#: [id number] : 1945 Acct:[id number] Age/Sex: 76 / F Type: REG RCR [...] leg melanoma removed by Dr. Trammell at [facility] in November 162020 with sentinel node [...] CT scans scheduled for at [facility]. She is doing well, no [...] for coordination of care (as documented) and fncv-ht-hlwj counseling of patient and/or family. [facility] - Medical History Medical History: Medical [...] Benson II, DO> 09/08/22 1018 [facility] Work Phone: [phone] Consult note Author Bebeto Pandya [facility] August 12, 2022 1:39pm Note Date/Time August 12, 2022 8 :51am [facility] at [address] [address] Rad Onc Consult Note - OP Signed Patient: Theresa Luu MR#: [id number] : 1945 Acct:[id number] Age/Sex: 76 / F Type: REG RCR Copies to: DO Alex Acuña MD, II, DO~ Assessment & Plan (1) Inguinal adenopathy Plan: CT simulation-plan for palliative radiation to the left inguinal whvoheajsoupvuf59 Luis in 5 fractions delivered every other [...] a left lower leg melanoma removed at [facility] in November 162020 with sentinel node [...] get her first maintenance dose of the Effie on August 11, 2022. Her repeat CT [...] ibuprofen. She denies any other pelvic complaints. [facility] - Medical History Medical History: Medical [...] signed by Bebeto Pandya MD> 08/12/22 1339 [facility] Work Phone: 1(219) 421-301101-30-2023 Progress note Author Sly Benson [facility] August 11, 2022 11:03am Note Date/Time August 11, 2022 1 0:48am [facility] [place] [address] Hem/Onc Follow Up Note - OP Signed Patient: Theresa Luu MR#: [id number] : 1945 Acct:[id number] Age/Sex: 76 / F Type: REG RCR [...] leg melanoma removed by Dr. Trammell at [facility] in November 162020 with sentinel node [...] CT scans scheduled for at [facility]. She is doing well, no [...] for coordination of care (as documented) and ehue-ob-zkiy counseling of patient and/or family. [facility] - Medical History Medical History: Medical [...] % (Auto) 58.6, Lymph % (Auto) 29.6, [place] % (Auto) 9.0, Eos % (Auto) 2.1, Baso % (Auto) 0.7, Nucleat RBC Rel Count 0.1, Neut # (Auto) 4.4, Lymph # (Auto) 2.2, [place] # (Auto) 0.7, Eos # (Auto) 0.2, [...] Benson II, DO> 08/11/22 1103 [facility] Work Phone: 1(100) 489-274012-12-2022 Progress note Author Sly Benson [facility] June 23, 2022 11:22am Note Date/Time June 23, 2022 11:18am [facility] [place] [id number] Hem/Onc Follow Up Note - OP Signed Patient: Theresa Luu MR#: [id number] : 1945 Acct:[id number] Age/Sex: 76 / F Type: REG RCR [...] leg melanoma removed by Dr. Trammell at [facility] in November 162020 with sentinel node [...] CT scans scheduled for at [facility]. She is doing well, no [...] maybe 3 days. worse after hot showers. [employer] really works for this. - Physical Exam [...] for coordination of care (as documented) and tmhe-zm-zaxb counseling of patient and/or family. [facility] - Medical History Medical History: Medical [...] by Sly Benson II, DO> 06/23/22 1122 [facility] Work Phone: 1(348) [phone] Progress note Author Sly Benson [facility] June 23, 2022 11:22am Note Date/Time June 23, 2022 11:18am [facility] [place] [address] Hem/Onc Follow Up Note - OP Signed Patient: Theresa Luu MR#: [id number] : 1945 Acct:[id number] Age/Sex: 76 / F Type: REG RCR [...] leg melanoma removed by Dr. Trammell at [facility] in November 162020 with sentinel node [...] CT scans scheduled for at [facility]. She is doing well, no [...] for coordination of care (as documented) and klub-uu-qtrw counseling of patient and/or family. [facility] - Medical History Medical History: Medical [...] by Sly Benson II, DO> 06/23/22 1122 [facility] Work Phone: [phone]) [phone] Progress note Author Zenobia Parker [facility] June 02, 2022 11:05am Note Date/Time June 02, 2022 11:01am [facility] [place] [address] Hem/Onc Follow Up Note - OP Signed Patient: Theresa Luu MR#: [id number] : 1945 Acct:[id number] Age/Sex: 76 / F Type: REG RCR [...] leg melanoma removed by Dr. Trammell at [facility] in November 162020 with sentinel node [...] CT scans scheduled for at [facility]. She is doing well, no [...] 10 point review of systems is negative. [facility] - Medical History Medical History: Medical [...] for coordination of care (as documented) and awrm-mk-haff counseling of patient and/or family. Dictated By: Zenobia Parker APRN DD/ 1058 Signed By: <Electronically signed by ANTOINETTE Parker> 06/02/22 1105 [facility] Work Phone: 1(692) 155-181011-21-2022 Progress note Author Zenobia Parker [facility] June 02, 2022 11:05am Note Date/Time June 02, 2022 11:01am [facility] [place] [address] Hem/Onc Follow Up Note - OP Signed Patient: Theresa Luu MR#: [id number] : 1945 Acct:[id number] Age/Sex: 76 / F Type: REG RCR [...] leg melanoma removed by Dr. Trammell at [facility] in November 162020 with sentinel node [...] CT scans scheduled for at [facility]. She is doing well, no [...] 10 point review of systems is negative. [facility] - Medical History Medical History: Medical [...] for coordination of care (as documented) and aifi-as-zuho counseling of patient and/or family. Dictated By: Zenobia Parker APRN DD/ 1058 Signed By: <Electronically signed by ANTOINETTE Parker> 06/02/22 1100 [facility] Work Phone: [phone]) 925-292510-21-2022 Progress note Author Sly Benson [facility] May 02, 2022 4:01pm Note Date/Time May 02, 2022 3 :52pm [facility] [place] [id number] Hem/Onc Follow Up Note - OP Signed Patient: Theresa Luu MR#: [id number] : 1945 Acct:[id number] Age/Sex: 76 / F Type: REG RCR Copies to: Yoni Larson Yohana,DO Alex Trammell MD~ Date of Service: 05/02/2022 [...] leg melanoma removed by Dr. Trammell at [facility] in November 162020 with sentinel node [...] CT scans scheduled for at [facility]. She is doing well, no [...] for coordination of care (as documented) and ebhd-wq-cfxi counseling of patient and/or family. [facility] - Medical History Medical History: Medical [...] by Sly Benson II, DO> 05/02/22 1601 [facility] Work Phone: 1([phone] 355-926110-21-2022 Progress note Author Sly Benson [facility] May 02, 2022 4:01pm Note Date/Time May 02, 2022 3 :52pm [facility] at [address] [address] Hem/Onc Follow Up Note - OP Signed Patient: Theresa Luu MR#: [id number] : 1945 Acct:[id number] Age/Sex: 76 / F Type: REG RCR [...] leg melanoma removed by Dr. Trammell at [facility] in November 162020 with sentinel node [...] CT scans scheduled for at [facility]. She is doing well, no [...] for coordination of care (as documented) and uhir-bn-emxo counseling of patient and/or family. [facility] - Medical History Medical History: Medical [...] by Sly Benson II, DO> 05/02/22 1601 [facility] Work Phone: [phone] Progress note Author Sly Benson [facility] April 26, 2022 11:51am Note Date/Time April 21, 2022 9 :31am [facility] [place] [id number] Hem/Onc Follow Up Note - OP Signed Patient: Theresa Luu MR#: [id number] : 1945 Acct:[id number] Age/Sex: 76 / F Type: REG RCR Copies to: Yoni DO Alex Brown MD~ Date of Service: 04/21/2022 Time of [...] 4 doses per trial Cornelius et al [facility] 2019 Repeat imaging in September 2021 showed [...] leg melanoma removed by Dr. Trammell at [facility] in November 162020 with sentinel node [...] CT scans scheduled for at [facility]. She is doing well, no [...] for coordination of care (as documented) and garl-ir-wmic counseling of patient and/or family. [facility] - Medical History Medical History: Medical [...] signed by Sly Benson II, DO> 04/26/22 2693 [facility] Work Phone: [phone] 176-401010-15-2022 Progress note Author Sly Benson [facility] April 26, 2022 11:51am Note Date/Time April 21, 2022 9 :31am [facility] at [address] [address] Hem/Onc Follow Up Note - OP Signed Patient: Theresa Luu MR#: [id number] : 1945 Acct:[id number] Age/Sex: 76 / F Type: REG RCR [...] 4 doses per trial Cornelius et al [facility] [place] 2019 Repeat imaging in September 2021 showed [...] leg melanoma removed by Dr. Trammell at [facility] in November 162020 with sentinel node [...] CT scans scheduled for at [facility]. She is doing well, no [...] for coordination of care (as documented) and dllm-pu-ngov counseling of patient and/or family. [facility] - Medical History Medical History: Medical [...] Dictated By: Sly Benson II, DO DD/ 0929 Signed By: <Electronically signed by Sly Benson II DO> 04/26/22 1151 [facility] Work Phone: [phone]) 801-851104-25-2022 Progress note Author Sly Benson [facility] November 04, 2021 7:49pm Note Date/Time October 25, 2021 9:5 8am [facility] at [address] [address] Hem/Onc Follow Up Note - OP Signed Patient: Theresa Luu MR#: [id number] : 1945 Acct:[id number] Age/Sex: 76 / F Type: REG RCR Copies to: Yoni Muller,DO Alex Trammell MD~ Date of Service: 10/25/2021 [...] leg melanoma removed by Dr. Trammell at [facility] November 162020 with sentinel node biopsy and [...] CT scans scheduled for at [facility]. She is doing well, no [...] for coordination of care (as documented) and uota-ag-rkbj counseling of patient and/or family. [facility] - Medical History Medical History: Medical [...] signed by Sly Benson II, DO> 11/04/211948 [facility] Work Phone: [phone]) [phone] Progress note Author Sly Benson [facility] November 04, 2021 7:49pm Note Date/Time October 25, 2021 9:5 8am [facility] [place] [address] Hem/Onc Follow Up Note - OP Signed Patient: Theresa Luu MR#: [id number] : 1945 Acct:[id number] Age/Sex: 76 / F Type: REG RCR [...] leg melanoma removed by Dr. Trammell at [facility] in November 162020 with sentinel node [...] CT scans scheduled for at [facility]. She is doing well, no [...] for coordination of care (as documented) and zdas-zh-zfuw counseling of patient and/or family. [facility] - Medical History Medical History: Medical [...] signed by Sly Benson II, DO> 11/04/211948 [facility] Work Phone: [phone] 338-687803-28-2022 Progress note Author Sly Benson [facility] October 07, 2021 8:58am Note Date/Time October 07, 2021 8:2 8am [facility] [place] [address] Hem/Onc Follow Up Note - OP Signed Patient: Theresa Luu MR#: [id number] : 1945 Acct:[id number] Age/Sex: 76 / F Type: REG RCR [...] leg melanoma removed by Dr. Trammell at [facility] in November 162020 with sentinel node [...] CT scans scheduled for at [facility]. She is doing well, no [...] for coordination of care (as documented) and euvy-zh-vzds counseling of patient and/or family. [facility] - Medical History Medical History: Medical [...] Benson II, DO> 10/07/21 0858 [facility] Work Phone: 1(809) [phone] Progress note Author Sly Benson [facility] October 07, 2021 8:58am Note Date/Time October 07, 2021 8:2 8am [facility] [place] [id number] Hem/Onc Follow Up Note - OP Signed Patient: Theresa Luu MR#: [id number] : 1945 Acct:[id number] Age/Sex: 76 / F Type: REG RCR [...] leg melanoma removed by Dr. Trammell at [facility] in November 162020 with sentinel node [...] CT scans scheduled for at [facility]. She is doing well, no [...] for coordination of care (as documented) and qogc-uk-zozr counseling of patient and/or family. [facility] - Medical History Medical History: Medical [...] by Sly Benson II, DO> 10/07/21 0858 [facility] Work Phone: [phone] NotePROCEDURE DETAILS Preoperative Diagnosis: Melanoma of lower limb, C43.70 Postoperative Diagnosis: left lower leg me\lanoma Surgeon: Alex Trammell Resident/Fellow/Other Environmental Air Specialist: Bambi Ray Muhammad Procedure: 1. WIDE LOCAL [...] Aguilar MD Furlong, Dennis G, MD - [phone] [] Signatures/Attestation: Note Completion: Attending AttestationI was present for the entire procedure Electronic Signatures: Alex Trammell) (Signed 16-Nov-2020 14:13) Authored: Post-Operative Note, Chart Review, Note Completion Last Updated: 16-Nov-2020 14:13 by Alex Trammell)[facility] 11-16-2020 NoteHistory & Physical Reviewed: I have [...] the note. I personally evaluated the patient [id number] Attending Provider Inpatient Certification StatementObservation patient/other outpatient visits Electronic Signatures: Alex Trammell () (Signed 16-Nov-2020 13:12) Authored: Note Completion Co-Signer: History & Physical Reviewed, ERAS, Consent, Note Completion Ct Tinsley (Resident)) (Signed 16-Nov-2020 10:36) Authored: History & Physical Reviewed, ERAS, Consent, Note Completion Last Updated: 16-Nov-2020 13:12 by Alex Trammell)[facility] 10-16-2020 NoteAccession #: [id number] Pathologist: SUARJ MELGAR MD Date of Procedure: 10/16/2020 Date Received: 10/16/2020 Submitting Physician: ALEX TRAMMELL MD Location: [facility] Copy To/Referring/Attending: QUENTIN FITZPATRICK DO FINAL DIAGNOSIS 4 SLIDES, [facility], #[id number] [A] (BX: 09/28/2020) SKIN, LEFT DISTAL PRETIBIAL [...] REPORT A. 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 Slides received on specimen A only. Slide/Block Description 4 SLIDES, [id number] A. Keep Slides: N Slides Returned: N [facility]Performed By: #### D #### [id number] History general Narrative - Reported* Type Description Date Medical History breast cancer (1996) Medical History HTN Medical History hyperlipidemia Medical History basal cell carcinoma upper back (September 2020) Medical History metastatic malignant melanoma [employer] Other 04-20-2014 History of Present illness Narrative* [...] in a prior mole. Thepatient moved from [place] 8 years ago and has not established [...] She reports that shehas not seen her film processor since prior to the cancer treatment. As [...] the knee to the foot. 1+ edema. OW-Iwswukm-Cywpw Main Work Phone: [phone] 967-116603-14-2014 History of Present illness Narrative* Ms. Luu [...] in a prior mole. Thepatient moved from [place] 8 years ago and has not established [...] She reports that shehas not seen her film processor since prior to the cancer treatment. As [...] the knee to the foot. 1+ edema. [facility] Work Phone: 1([phone]) 154-541407-15-2013 History of Present illness Narrative* Ms. Luu [...] in a prior mole. Thepatient moved from [place] 8 years ago and has not established [...] the knee to the foot. 1+ edema. TL-Zkoalxu-Rktyvjaj 150 Work Phone: [phone] 250-441106-16-2013 History of Present illness Narrative* Ms. Luu [...] in a prior mole. Thepatient moved from [place] 8 years ago and has not established [...] the knee to the foot. 2+ edema. SC-Tawisgx-Imokltxs 150 Work Phone: [phone] History of Present illness Narrative* Ms. Luu [...] in a prior mole. Thepatient moved from [place] 8 years ago and has not established [...] the knee to the foot. 2+ edema. [facility] Work Phone: evaluation noteN/ADept. of Dermatology Evaluation note* Diagnosis Onset Date Resolution Status Melanoma acute [facility] Work Phone: evaluation noteNo assessment information available [facility] Work Phone: evaluation note* Diagnosis Onset Date Resolution Status Melanoma acute Inguinal adenopathy acute [facility] Work Phone: evaluation note* Diagnosis Onset Date Resolution Status Inguinal adenopathy acute Melanoma acute [facility] Work Phone: evaluation note* Diagnosis Onset Date Resolution Status Encounter for antineoplastic immunotherapy acute Inguinal adenopathy acute Melanoma acute [facility] Work Phone: evaluation note* Diagnosis Onset Date Resolution Status Melanoma acute Encounter for antineoplastic immunotherapy acute Inguinal adenopathy acute Melanoma acute [facility] Work Phone: evaluation note* Diagnosis Essential (primary) hypertension Unspecified essential hypertension documented in this encounter [facility] SystemEvaluation note* Diagnosis Benign hypertension with chronic [...] Frame: 1 Day, Location: Determined By Patient [facility] Work Phone: Hospital Discharge instructionsAmbulatory Orders* Oncology Histology Time Frame: 1 Day, Location: Determined By Patient [facility] Work Phone: InstructionsNot on filedocumented in this encounter [facility] System[facility]ructionsNot on filedocumented in this encounter [facility] SystemInstructionsNot on filedocumented in this encounter [facility]* Attachments The following attachments cannot be sent through Care Everywhere. * Common wrist injuries ([place]) documented in this encounterPro[facility]ila [facility] SystemProgress note Author Sly Benson [facility] May 02, 2022 4:01pm Note Date/Time May 02, 2022 3 :52pm [facility] [place] [address] Hem/Onc Follow Up Note - OP Signed Patient: Theresa Luu MR#: [id number] : 1945 Acct:[id number] Age/Sex: 76 / F Type: REG RCR [...] leg melanoma removed by Dr. Trammell at [facility] in November 162020 with sentinel node [...] CT scans scheduled for at [facility]. She is doing well, no [...] for coordination of care (as documented) and fnkd-fj-ozsf counseling of patient and/or family. [facility] - Medical History Medical History: Medical [...] by Sly Benson II, DO> 05/02/22 1601 [facility] Work Phone: Progress note Author Zenobia Parker [facility] June 02, 2022 11:05am Note Date/Time June 02, 2022 11:01am [facility] [place] [address] Hem/Onc Follow Up Note - OP Signed Patient: Theresa Luu MR#: [id number] : 1945 Acct:[id number] Age/Sex: 76 / F Type: REG RCR [...] leg melanoma removed by Dr. Trammell at [facility] in November 162020 with sentinel node [...] CT scans scheduled for at [facility]. She is doing well, no [...] for coordination of care (as documented) and ybas-jz-zfcv counseling of patient and/or family. Dictated By: Zenobia Parker APRN DD/ 1058 Signed By: <Electronically signed by ANTOINETTE Parker> 06/02/22 1105 [facility] Work Phone: Progress note Author Sly Benson [facility] June 23, 2022 11:22am Note Date/Time June 23, 2022 11:18am [facility] [place] [address] Hem/Onc Follow Up Note - OP Signed Patient: Theresa Luu MR#: [id number] : 1945 Acct:[id number] Age/Sex: 76 / F Type: REG RCR [...] leg melanoma removed by Dr. Trammell at [facility] in November 162020 with sentinel node [...] CT scans scheduled for at [facility]. She is doing well, no [...] for coordination of care (as documented) and evme-at-wspd counseling of patient and/or family. [facility] - Medical History Medical History: Medical [...] Confirmed 06/23/22] Dictated By: Sly Benson II, DD/ 1116 Signed By: <Electronically signed by Sly Benson II, DO> 06/23/22 1122 [facility] Work Phone: Progress note Author Sly Benson [facility] August 11, 2022 11:03am Note Date/Time August 11, 2022 1 0:48am [facility] [place] [address] Hem/Onc Follow Up Note - OP Signed Patient: Theresa Luu MR#: [id number] : 1945 Acct:[id number] Age/Sex: 76 / F Type: REG RCR [...] leg melanoma removed by Dr. Trammell at [facility] in November 162020 with sentinel node [...] CT scans scheduled for at [facility]. She is doing well, no [...] for coordination of care (as documented) and jujx-uw-tpmc counseling of patient and/or family. [facility] - Medical History Medical History: Medical [...] % (Auto) 58.6, Lymph % (Auto) 29.6, [place] % (Auto) 9.0, Eos % (Auto) 2.1, Baso % (Auto) 0.7, Nucleat RBC Rel Count 0.1, Neut # (Auto) 4.4, Lymph # (Auto) 2.2, [place] # (Auto) 0.7, Eos # (Auto) 0.2, [...] Benson II, DO> 08/11/22 1103 [facility] Work Phone: Progress note Author Sly Benson [facility] September 08, 2022 10:18am Note Date/Time September 08, 2022 10:08am [facility] [place] [address] Hem/Onc Follow Up Note - OP Signed Patient: Theresa Luu MR#: [id number] : 1945 Acct:[id number] Age/Sex: 76 / F Type: REG RCR [...] leg melanoma removed by Dr. Trammell at [facility] in November 162020 with sentinel node [...] CT scans scheduled for at [facility]. She is doing well, no [...] maybe 3 days. worse after hot showers. [employer] really works for this. 08/11/22 She is [...] for coordination of care (as documented) and xivr-vc-cvph counseling of patient and/or family. [facility] - Medical History Medical History: Medical [...] Benson II, DO> 09/08/22 1018 [facility] Work Phone: Progress note Author Senia Montez [facility] December 30, 2022 11:06am Note Date/Time December 30, 2022 8:35 am [facility] [place] [address] Hem/Onc Follow Up Note - OP Signed Patient: Thereas Luu MR#: [id number] : 1945 Acct:[id number] Age/Sex: 77 / F Type: REG RCR [...] leg melanoma removed by Dr. Trammell at [facility] in November 162020 with sentinel node [...] CT scans scheduled for at [facility]. She is doing well, no [...] for coordination of care (as documented) and wgkr-nx-ktxt counseling of patient and/or family. [facility] - Medical History Medical History: Medical [...] By: <Electronically signed by ANTOINETTE Montez> 12/30/22 1108 [facility] Work Phone: Progress note Author Sly Benson [facility] March 06, 2023 2:40pm Note Date/Time March 06, 2023 2: 37pm [facility] [place] [address] Hem/Onc Follow Up Note - OP Signed Patient: Theresa Luu MR#: [id number] : 1945 Acct:[id number] Age/Sex: 77 / F Type: REG RCR [...] leg melanoma removed by Dr. Trammell at [facility] in November 162020 with sentinel node [...] CT scans scheduled for at [facility]. She is doing well, no [...] for coordination of care (as documented) and bscq-xl-tczk counseling of patient and/or family. [facility] - Medical History Medical History: Medical [...] % (Auto) 66.0, Lymph % (Auto) 23.1, [place] % (Auto) 8.4, Eos % (Auto) 1.7, Baso % (Auto) 0.8, Nucleat RBC Rel Count 0.0, Neut # (Auto) 4.1, Lymph # (Auto) 1.4, [place] # (Auto) 0.5, Eos # (Auto) 0.1, [...] Benson II, DO> 03/06/23 1440 [facility] Work Phone: Progress note Author Sly Benson [facility] August 07, 2023 11:49am Note Date/Time August 07, 2023 1 1:21am [facility] [place] [address] Cancer Center Note Signed Patient: Theresa Luu MR#: [id number] : 1945 Acct:[id number] Age/Sex: 77 / F Type: REG AMB [...] leg melanoma removed by Dr. Trammell at [facility] in November 162020 with sentinel node [...] CT scans scheduled for at [facility]. She is doing well, no [...] up with labs and imaging for review. PMFSH Medical History Medical History Malignant tumor of [...] by Sly Benson II, DO> 08/07/23 1149 [facility] Work Phone: Progress note Author Sly Benson [facility] January 22, 2024 9:45am Note Date/Time January 22, 2024 9:17 am [facility] [place] [address] Cancer Center Note Signed Patient: Theresa Luu MR#: [id number] : 1945 Acct:[id number] Age/Sex: 78 / F Type: REG AMB [...] leg melanoma removed by Dr. Trammell at [facility] in November 162020 with sentinel node [...] CT scans scheduled for at [facility]. She is doing well, no [...] imaging for review, prior to treatment today. [facility] Medical History Medical History Malignant tumor [...] by Sly Benson II, DO> 01/22/24 0945 [facility] Work Phone: Reason for referral (narrative)* Name [...] section and content) DATE CREATED AUTHOR 11/07/2020 [facility] DATE CREATED AUTHOR AUTHOR'S ORGANIZ ATION 12/04/2020 [facility] DATE CREATED AUTHOR AUTHOR'S ORGANIZ ATION 12/10/2020 [facility] DATE CREATED AUTHOR AUTHOR'S ORGANIZ ATION 05/12/2021 [facility] DATE CREATED AUTHOR AUTHOR'S ORGANIZ ATION 09/23/2021 [employer] DATE CREATED AUTHOR AUTHOR'S ORGANIZ ATION 09/28/2021 [facility] DATE CREATED AUTHOR AUTHOR'S ORGANIZ ATION 10/06/2022 [facility] DATE CREATED AUTHOR AUTHOR'S ORGANIZ ATION 06/01/2024 [facility] Care Teams (unrecognized sec tion [...] Benson II, DO Attending Provider Active Yoni Furlong , DO Primary Care Provider Active Alex Trammell MD Referring Provider Active Team Status: Inactive Member Role Status Dates Alex Trammell MD Attending Provider Active Yoni Mortezahelena DO Primary Care Provider Active Team Status: Inactive Member Role Status Dates Yoni Mortezahelena DO Primary Care Provider Active Alex Trammell MD Attending Provider Active Team Status: Inactive Member Role Status Dates Yoni Mortezahelena , DO Primary Care Provider Active Sly Benson II, DO Attending Provider Active Manager Custom Relationship Specialty Start Date End Date Yoni Muller DO [address], [place] [address] PCP - [facility] Medicine 04/21/22 Manager Custom Relationship Specialty Start Date End Date Yoni Muller DO [address], [place] [address] PCP - General Family Medicine 04/21/22 Manager Custom Relationship Specialty Start Date End Date Yoni Muller DO [address], [place] [address] PCP - General Family Medicine 04/21/22 Team Status: Inactive Member Role Status Dates Yoni MortezaDO helena Primary Care Provider Active Start: January 22, [...] BE BASED ON THE PRIMARY CLINICAL RECORDS. [employer] [facility]. provides no warranty or guarantee of the accuracy or completeness of information in this document.
[2024-06-16 07:58] LABS: Basophils Percent Auto 0.5 % (0.2-2.0); Eosinophils Absolute Auto 0.1 10^3/uL (0.0-0.7); Eosinophils Percent Auto 1.1 % (0.9-7.0); Hematocrit 42.9 % (36.0-48.0); Hemoglobin 14.2 g/dL (12.0-16.0); Immature Granulocytes Abs Auto 0.02 10^3/uL (0.00-0.03); Immature Granulocytes Pct Auto 0.4 % (0.0-0.5); Lymphocytes Absolute Auto 1.7 10^3/uL (1.2-3.8); Mean Corpuscular HGB Conc 33.1 g/dL (29.9-35.2); Mean Corpuscular Hemoglobin 30.3 pg (26.7-34.0); Mean Corpuscular Volume 91.5 fL (81.0-99.0); Mean Platelet Volume 9.1 fL (9.5-13.5); Monocytes Absolute Auto 0.6 10^3/uL (0.3-0.8); Monocytes Percent Auto 9.7 % (1.7-12.0); Neutrophils Absolute Auto 3.3 10^3/uL (1.4-6.5); Neutrophils Percent Auto 58.3 % (43.0-75.0); Platelet Count 192 10^3/uL (150-450); Red Blood Count 4.69 10^6/uL (4.20-5.40); Red Cell Distribution Width 12.3 % (11.0-15.0); White Blood Count 5.7 10^3/uL (4.0-11.0)
[2024-06-16 08:21] LABS: Alanine Aminotransferase 37 U/L (14-59); Albumin Globulin Ratio 0.9; Albumin Level 3.2 g/dL (3.4-5.0); Alkaline Phosphatase 154 U/L (46-116); Anion Gap 11.7; Aspartate Amino Transferase 35 U/L (15-37); BUN Creatinine Ratio 16.4; Bilirubin Total 0.6 mg/dL (0.2-1.0); Calcium 8.8 mg/dL (8.5-10.1); Carbon Dioxide 30.7 mmol/L (21.0-32.0); Chloride 105 mmol/L (98-107); Estimated GFR (African America 58 (>=60 mL/min/1.73m^2); Estimated GFR (Non-African Ame 48 (>=60 mL/min/1.73m^2); Globulin 3.5 g/dL; Glucose 104 mg/dL (74-106); Potassium 3.4 mmol/L (3.5-5.1); Sodium 144 mmol/L (136-145); Thyroid Stimulating Hormone 2.082 uIU/mL (0.358-3.740); Total Protein 6.7 g/dL (6.4-8.2)
[2024-06-16 08:54] LABS: Free T4 1.12 ng/dL (0.76-1.46)
[2024-06-17 14:13] LABS: ACTH, Plasma 20.9 pg/mL (7.2-63.3)
== END 2024-06-16 07:30 | disposition home or self-care (01) ==
LOC: LAB 07:30
PROVIDERS: PCP Family Medicine; Visit Provider Internal Medicine
DX: C43.9 Malignant melanoma of skin, unspecified (principal)
CPT/HCPCS: 36415; 80053; 82024; 82533; 84439; 84443; 85025